=== PATIENT | female | born 1955 | race Caucasian/White ===

== ENCOUNTER 2022-08-16 07:27 | Outpatient (CLI) | payer MEDICARE, SELFPAY ==
--- OUTSIDE RECORDS SUMMARY | 2022-08-16 07:29 | XMS_ITS | Clinical Summary ---
:1955 Author Organization [facility] [place] [address] Care Team Providers Name Role Phone Easton Mccormick MD Unavailable Katerine Bashir MD Primary Care Provider [phone] Allergies No known active allergies Medications Medication Sig Dispensed Refills Start Date End Date Status Biotin 1 mg tablet Take 1 tablet 0 08/26/2015 Active by mouth once daily. aspirin (ECOTRIN) 81 mg Take 1 tablet 0 11/30/2015 Active enteric coated by mouth once tabletIndications: Non-ST daily with a elevation NC (NSTEMI) (HC) meal. atorvastatin (LIPITOR) 40 Take 1 tablet 90 tablet 3 09/26/2016 Active mg tabletIndications: by mouth at Coronary artery disease, bedtime. angina presence unspecified, unspecified vessel or lesion type, unspecified whether telida or transplanted heart nitroglycerin (NITROSTAT) Place 1 tablet 1 Bottle 0 6 Active 0.4 mg sublingual under the tabletIndications: tongue every 5 Coronary artery disease, minutes if angina presence needed for unspecified, unspecified Chest Pain. vessel or lesion type, unspecified whether telida or transplanted heart metoprolol succinate Take 1 tablet 90 tablet 3 09/26/2016 Active (TOPROL XL) 50 mg by mouth once sustained-release daily. tabletIndications: HTN (hypertension), Coronary artery disease, angina presence unspecified, unspecified vessel or lesion type, unspecified whether telida or transplanted heart metFORMIN (GLUCOPHAGE) Take 1 tablet 90 tablet 3 09/26/2016 Active 1,000 mg by mouth once tabletIndications: Type 2 daily with diabetes mellitus without evening meal. complication, without long-term current use of insulin (HC) hydroCHLOROthiazide (HCTZ) Take 1 tablet 90 tablet 3 6 Active 25 mg tabletIndications: by mouth once HTN (hypertension) daily. blood sugar diagnostic 1 box 3 09/26/2016 Active (ACCU-CHEK DAVID) stripIndications: Type 2 diabetes mellitus without complication, without long-term current use of insulin (HC) lancetsIndications: Type 2 Dispense item 100 Each 3 6 Active diabetes mellitus without covered by pt complication, without ins. E11.9 long-term current use of NIDDM type II insulin (HC) - Test 1 time/day lisinopril (PRINIVIL; TAKE ONE 30 tablet 0 09/29/2017 Active ZESTRIL) 40 mg TABLET BY tabletIndications: HTN MOUTH ONCE (hypertension) DAILY Active Problems Problem Noted Date Non-ST elevation NC (NSTEMI) 11/19/2015 Melanoma in situ 06/15/2014 Overview: Right lower anterior leg and upper right eyelid. 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 Morbid obesity 04/10/2010 Diabetes mellitus, type 2 HTN (hypertension) CAD (coronary artery disease) Hyperlipidemia LDL goal <70 Immunizations Name Administration Dates Next Due HepA-HepB (Twinrix) 08/26/2015, 06/15/2014 Hepatitis B (Adult) 08/03/2014 Influenza, IIV3 (Age >=3 years) 09/24/2011 Influenza, IIV4 09/26/2016, 08/26/2015, 08/03/2014 Tdap 03/08/2009 Family History Medical History Relation Name Comments Good Health Brother 1 Hypertension Brother 2 Stroke Father Diabetes Mother Heart Disease Mother CAD s/p PCI in 7 0s Relation Name Status Comments Brother 1 Brother 2 Father (Age 70) CVA Maternal Grandfather (Age 45) CAD Maternal Grandmother (Age 96) Mother Paternal Grandfather (Age 70s) liver di sease Paternal Grandmother unknown Social History Tobacco Use Types Packs/Day Years Used Date Former Smoker Cigarettes 0.5 10/28/1985 - 0 11/19/2015 Smokeless Tobacco: Never Used Tobacco Cessation: Counseling Given: Yes Comments: TIP done 11/21/15 Alcohol Use Standard Drinks/Week Comments Yes 0 (1 standard drink = 0.6 oz pure alcoho l) 1-2 drinks/month Alcohol Habits Answer Date Recorded How often do you have a drink containing alcohol? Not asked How many drinks containing alcohol do you have on a Not aske d typical day when you are drinking? How often do you have six or more drinks on one Not asked occasion? Comment: 1-2 drinks/month 03/15/2010 Sex Assigned at Date Recorded Not on file Obstetrics History Para Term AB IAB SAB Ectopic Multiple Living Live Births 0 0 0 0 0 0 0 0 0 0 Last Filed Vital Signs Vital Sign Reading Time Taken Comments Blood Pressure 152/80 12/26/2020 1:32 PM ETHANOL QUALITY LEADER Pulse 60 12/26/2020 1:32 PM ETHANOL QUALITY LEADER Temperature 36.8 ??C (98.3 ??F) 09/26/2016 9:54 AM ETHANOL QUALITY LEADER Respiratory Rate 14 12/26/2020 1:32 PM ETHANOL QUALITY LEADER Oxygen Saturation 96% 09/26/2016 9:54 AM ETHANOL QUALITY LEADER Inhaled Oxygen Concentration - - Weight 88 kg (194 lb) 12/26/2020 1:32 PM ETHANOL QUALITY LEADER Height 168.2 cm (5' 6.22) 09/26/2016 9:54 AM ETHANOL QUALITY LEADER Body Mass Index 31.1 09/26/2016 9:54 AM ETHANOL QUALITY LEADER Plan of Treatment Health Maintenance Due Date Last Done Comments COVID-19 vaccine series (#1) 01/30/1956 Pneumococcal series for age 65+ (1 1963 - PCV) Hepatitis C screening for age 1008/01/1975 18-79 Zoster (shingles) series for age 1008/01/2007 50+ (1 of 2) BMI (ht and wt on same day) for 09/26/2017 09/26/2016, 04/0 02/2016, age 18+ 01/11/2016, Additional history exists Depression screening for age 12+ 09/26/2017 09/26/2016, 12/2015 Mammogram for age 45-75 10/04/2017 10/04/2016, 08/18/2015, 04/21/2014, Additional history exists Tetanus booster 03/08/2019 03/08/2009, 03/08/2009 Colonoscopy through age 75 04/27/2020 04/27/2010 [facility] Lipids for age 45-75 09/11/2021 09/11/2016, 05/24/2015, 08/03/2014, Additional history exists DEXA/DXA scan for age 65+ 2022 08/18/2015 Influenza for age 65+ 2022 09/26/2016, 08/26/2015, 08/03/2014, Additional history exists Pap test for age 21-65 08/14/2022 08/14/2019, 08/14/2019, 08/26/2015, Additional history exists Tdap Completed 03/08/2009 Goals Goal Patient Goal Associated Recent Patient-Stated? Author Type Problems Progress BLOOD Blood Pressure No Jansen PRESSURE-Bailey Rocha BP Jayashree, LESS THAN FURNITURE FINISHER HELPER 130/80 Results Not on filefrom Last [address] (Home) [place] [address] Advance Directives Latest Code Status on File Code Status Date Activated Date Inactivated Comments Full Code 11/19/2015 1:43 PM 11/24/2015 8:35 PM Code Status Discussion: Discussed Care Teams Shank Sander Relationship Specialty Start Date End Date Katerine Bashir MD PCP - General Family Practice 12/27/201999 [place] [address] Easton Mccormick MD Cardiovascular Disease 09/26/[address] [place] [address]
--- NOTE | 2022-08-16 07:44 | CRLHL7_ITS ---
For Patients: As a result of the Century Cures Act, medical imaging exams and procedure reports are released immediately into your electronic medical record. You may view this report before your referring provider. If you have questions, please contact your health care provider. Indication: CLL, LYMPHADENOPATHY Technique: Postcontrast CT chest, abdomen and pelvis. 93 cc Isovue 370 intravenous contrast. Please note that all CT scans at this facility use dose modulation, iterative reconstruction, and/or weight-based dosing when appropriate to reduce radiation dose to as low as reasonably achievable. Comparison: 01/16/2021 Findings: In the chest, bulky thoracic inlet, bilateral axillary, mediastinal and bilateral hilar adenopathy is overall similar to the prior examination. Extensive vascular calcifications. Postop changes of CABG. Mild emphysema. Scarring within the right middle lobe and right lower lobe of. No pleural effusion or CHF. No infiltrate. Stable 3 millimeter nodule left lower lobe, . No fracture. Median sternotomy. In the abdomen, there is no intrahepatic mass. Splenomegaly with the spleen measuring 17.4 cm similar bulky retroperitoneal and mesenteric adenopathy. Gallbladder normal. Normal pancreas. Normal adrenal glands and kidneys. No bowel obstruction. In the pelvis, similar bulky pelvic sidewall and inguinal adenopathy. Similar numerous lymph nodes in the pelvic fat centrally. Uterus normal. No adnexal mass. Sigmoid diverticulosis. No diverticulitis. No bowel obstruction. Normal appendix. Degenerative disc disease primarily at L5-S1. No fracture. Impression: Overall similar morphology and size of diffuse multifocal bulky adenopathy throughout the chest, abdomen and pelvis. Splenomegaly. Please note that all CT scans at this facility use dose modulation, iterative reconstruction, and/or weight-based dosing when appropriate to reduce radiation dose to as low as reasonably achievable. Dictated by Easton Salazar MD @ 08/16/2022 11:09:52 AM (Electronically Signed)
== END 2022-08-16 07:28 | disposition home or self-care (01) ==
LOC: CT 07:28
PROVIDERS: PCP Family Medicine; Visit Provider Nurse Practitioner Family
DX: C91.10 Chronic lymphocytic leukemia of B-cell type not having achieved remission (principal)
CPT/HCPCS: 71260; 74177; Q9967

== ENCOUNTER 2022-08-17 09:15 | Outpatient (CLI) | payer MEDICARE, SELFPAY ==
--- OUTSIDE RECORDS SUMMARY | 2022-08-17 09:20 | XMS_ITS | Clinical Summary ---
:1955 Author Organization [facility] [place] [address] Care Team Providers Name Role Phone Easton Mccormick MD Unavailable Katerine Bashir MD Primary Care Provider [phone] Allergies No known active allergies Medications Medication Sig Dispensed Refills Start Date End Date Status Biotin 1 mg tablet Take 1 tablet 0 08/26/2015 Active by mouth once daily. aspirin (ECOTRIN) 81 mg Take 1 tablet 0 11/30/2015 Active enteric coated by mouth once tabletIndications: Non-ST daily with a elevation MD (NSTEMI) (HC) meal. atorvastatin (LIPITOR) 40 Take 1 tablet 90 tablet 3 09/26/2016 Active mg tabletIndications: by mouth at Coronary artery disease, bedtime. angina presence unspecified, unspecified vessel or lesion type, unspecified whether united [place] or transplanted heart nitroglycerin (NITROSTAT) Place 1 tablet 1 Bottle 0 6 Active 0.4 mg sublingual under the tabletIndications: tongue every 5 Coronary artery disease, minutes if angina presence needed for unspecified, unspecified Chest Pain. vessel or lesion type, unspecified whether united [place] or transplanted heart metoprolol succinate Take 1 tablet 90 tablet 3 09/26/2016 Active (TOPROL XL) 50 mg by mouth once sustained-release daily. tabletIndications: HTN (hypertension), Coronary artery disease, angina presence unspecified, unspecified vessel or lesion type, unspecified whether united [place] or transplanted heart metFORMIN (GLUCOPHAGE) Take 1 [...] Active Problems Problem Noted Date Non-ST elevation MD (NSTEMI) 11/19/2015 Melanoma in situ 06/15/2014 Overview: [...] Comments Blood Pressure 152/80 12/26/2020 1:32 PM ELECTRONIC ENGRAVER Pulse 60 12/26/2020 1:32 PM ELECTRONIC ENGRAVER Temperature 36.8 ??C (98.3 ??F) 09/26/2016 9:54 AM ELECTRONIC ENGRAVER Respiratory Rate 14 12/26/2020 1:32 PM ELECTRONIC ENGRAVER Oxygen Saturation 96% 09/26/2016 9:54 AM ELECTRONIC ENGRAVER Inhaled Oxygen Concentration - - Weight 88 kg (194 lb) 12/26/2020 1:32 PM ELECTRONIC ENGRAVER Height 168.2 cm (5' 6.22) 09/26/2016 9:54 AM ELECTRONIC ENGRAVER Body Mass Index 31.1 09/26/2016 9:54 AM ELECTRONIC ENGRAVER Plan of Treatment Health Maintenance Due Date [...] age 77 04/27/2020 [facility]2010 [facility] Lipids for age 45-75 09/11/2021 09/11/2016, 05/24/2015, [...] Jansen PRESSURE-Bailey Rocha BP Jayashree, LESS THAN CYTOTECHNOLOGIST/HISTOTECHNOLOGIST 130/80 Results Not on filefrom Last [address] (Home) [place] [address] Advance Directives Latest Code Status on File Code Status Date Activated Date Inactivated Comments Full Code 11/19/2015 1:43 PM 11/24/2015 8:35 PM Code Status Discussion: Discussed Care Teams Ppap Coordinator Relationship Specialty Start Date End Date Katerine Bashir MD PCP - General Family Practice 12/27/201999 [place] [address] Easton Mccormick MD Cardiovascular Disease 09/26/[address] [place] [address]
--- NOTE | 2022-08-17 09:45 | CRLHL7_ITS ---
For Patients: As a result of the Cures Act, medical imaging exams and procedure reports are released immediately into your electronic medical record. You may view this report before your referring provider. If you have questions, please contact your health care provider. DIGITAL DIAGNOSTIC RIGHT MAMMOGRAM USING TOMOSYNTHESIS AND COMPUTER-AIDED DETECTION CLINICAL HISTORY: LEFT breast short-term follow-up. COMPARISON: 04/23/2022, 01/16/2021, 01/23/2019, 12/09/2017. TECHNIQUE: Digital LEFT mammogram in two projections. Tomosynthesis and CAD utilized. BREAST COMPOSITION: There are areas of scattered fibroglandular density. FINDINGS: 3D CC/MLO LEFT breast mammograms submitted. Chronic LEFT axillary adenopathy, unchanged. Improved appearance of the breast parenchyma within the upper outer quadrant compared to the prior study, representing resolution of skin infection. A small amount of residual density remains. No architectural distortion or suspicious masses. Benign calcifications. IMPRESSION: Improved skin inflammatory process. Chronic LEFT axillary adenopathy. RECOMMENDATIONS: Annual BILATERAL screening mammography at the appropriate interval. Results and recommendations discussed with the patient. BI-RADS Category 2: Benign A lay language report of this examination will be provided to the patient. Dictated by Easton Salazar MD @ 08/17/2022 10:48:51 AM jj/Dictated by: Easton Salazar MD @ 08/17/2022 10:48:00 AM (Electronically Signed)
== END 2022-08-17 09:16 | disposition home or self-care (01) ==
LOC: MAMMO 09:18
PROVIDERS: PCP Family Medicine; Visit Provider Family Medicine
DX: N63.20 Unspecified lump in the left breast, unspecified quadrant (principal); R92.8 Other abnormal and inconclusive findings on diagnostic imaging of breast
CPT/HCPCS: 77065; G0279

== ENCOUNTER 2022-09-21 07:55 | Outpatient (CLI) | payer MEDICARE, SELFPAY ==
--- OUTSIDE RECORDS SUMMARY | 2022-09-21 08:15 | XMS_ITS | Clinical Summary ---
:1955 Author Organization [facility] [place] [address] Care Team Providers Name Role Phone Easton Mccormick MD Unavailable Katerine Bashir MD Primary Care Provider [phone] Allergies No known active allergies Medications Medication Sig Dispensed Refills Start Date End Date Status Biotin 1 mg tablet Take 1 tablet 0 08/26/2015 Active by mouth once daily. aspirin (ECOTRIN) 81 mg Take 1 tablet 0 11/30/2015 Active enteric coated by mouth once tabletIndications: Non-ST daily with a elevation NV (NSTEMI) (HC) meal. atorvastatin (LIPITOR) 40 Take 1 tablet 90 tablet 3 09/26/2016 Active mg tabletIndications: by mouth at Coronary artery disease, bedtime. angina presence unspecified, unspecified vessel or lesion type, unspecified whether sun'aq or transplanted heart nitroglycerin (NITROSTAT) Place 1 tablet 1 Bottle 0 6 Active 0.4 mg sublingual under the tabletIndications: tongue every 5 Coronary artery disease, minutes if angina presence needed for unspecified, unspecified Chest Pain. vessel or lesion type, unspecified whether sun'aq or transplanted heart metoprolol succinate Take 1 tablet 90 tablet 3 09/26/2016 Active (TOPROL XL) 50 mg by mouth once sustained-release daily. tabletIndications: HTN (hypertension), Coronary artery disease, angina presence unspecified, unspecified vessel or lesion type, unspecified whether sun'aq or transplanted heart metFORMIN (GLUCOPHAGE) Take 1 [...] Active Problems Problem Noted Date Non-ST elevation NV (NSTEMI) 11/19/2015 Melanoma in situ 06/15/2014 Overview: [...] Comments Blood Pressure 152/80 12/26/2020 1:32 PM CASTING CARRIER Pulse 60 12/26/2020 1:32 PM CASTING CARRIER Temperature 36.8 ??C (98.3 ??F) 09/26/2016 9:54 AM CASTING CARRIER Respiratory Rate 14 12/26/2020 1:32 PM CASTING CARRIER Oxygen Saturation 96% 09/26/2016 9:54 AM CASTING CARRIER Inhaled Oxygen Concentration - - Weight 88 kg (194 lb) 12/26/2020 1:32 PM CASTING CARRIER Height 168.2 cm (5' 6.22) 09/26/2016 9:54 AM CASTING CARRIER Body Mass Index 31.1 09/26/2016 9:54 AM CASTING CARRIER Plan of Treatment Health Maintenance Due Date [...] age 77 04/27/2020 04/27/2010 [facility] Lipids for age 45-75 09/11/2021 09/11/2016, [...] Jansen PRESSURE-Bailey Rocha BP Jayashree, LESS THAN MOTO MIX OPERATOR 130/80 Results Not on filefrom Last [address] (Home) [place] [address] Advance Directives Latest Code Status on File Code Status Date Activated Date Inactivated Comments Full Code 11/19/2015 1:43 PM 11/24/2015 8:35 PM Code Status Discussion: Discussed Care Teams Home Health Clinical Liaison Relationship Specialty Start Date End Date Katerine Bashir MD PCP - General Family Practice 12/27/201999 [place] [address] Easton Mccormick MD Cardiovascular Disease 09/26/[address] [place] [address]
--- NOTE | 2022-09-21 09:15 | CRLHL7_ITS ---
For Patients: As a result of the Century Cures Act, medical imaging exams and procedure reports are released immediately into your electronic medical record. You may view this report before your referring provider. If you have questions, please contact your health care provider. INDICATION: Splenomegaly CT 08/16/2022 COMPARISON: none TECHNIQUE: Real time siddiqi scale imaging and color Doppler analysis was performed of the spleen. FINDINGS: The spleen is enlarged, as before, measuring 17.7 cm in length. No splenic lesion or ascites. Normal internal vascularity. IMPRESSION: Persistent splenomegaly, unchanged compared to the prior study. Dictated by Easton Salazar MD @ 09/21/2022 10:41:38 AM (Electronically Signed)
== END 2022-09-21 07:56 | disposition home or self-care (01) ==
LOC: US 07:55
PROVIDERS: PCP Family Medicine; Visit Provider Nurse Practitioner Family
DX: R16.1 Splenomegaly, not elsewhere classified (principal)
CPT/HCPCS: 76705

== ENCOUNTER 2022-11-19 15:00 | Outpatient (RCR) | payer MEDICARE, SELFPAY ==
[2022-08-16 07:54] LABS: Basophils Percent Auto 0.1 % (0.0-3.0); Eosinophils Percent Auto 0.9 % (0.0-7.0); Hematocrit 43.3 % (33.0-51.0); Hemoglobin* 13.8 gm/dL (12.0-16.0); Immature Granulocytes Abs Auto 0.34 K/uL (0.00-0.30); Lymphocytes Percent Auto 84.8 % (20-44); Mean Corpuscular HGB Conc 32 gm/dL (32-36); Mean Corpuscular Hemoglobin 30 pg (26-34); Mean Corpuscular Volume 93 fL (80-100); Monocytes Percent Auto 4.2 % (0.0-11.0); Neutrophils Percent Auto 9.5 % (42.0-72.0); Platelet Count* 199 K/uL (140-440); RDW Coefficient of Variation % 13.6 % (11.5-15.5); Red Blood Count 4.67 m/uL (4.00-5.20)
[2022-08-16 08:08] LABS: Albumin* 4.6 g/dL (3.3-5.0); Chloride* 99 mmol/L (96-114); Potassium* 4.4 mmol/L (3.6-5.1); Sodium* 138 mmol/L (135-149)
[2022-08-16 08:10] LABS: Aspartate Amino Transferase* 25 U/L (12-35); Bilirubin Total* 1.3 mg/dL (0.1-1.5); Carbon Dioxide* 32 mmol/L (20-32); Creatinine* 0.7 mg/dL (0.5-1.5); Estimated Glomerular Filt Rate 96 ml/min
[2022-08-16 08:11] LABS: Alanine Aminotransferase* 20 U/L (4-35); Alkaline Phosphatase* 111 U/L (40-150); Blood Urea Nitrogen* 24 mg/dL (7-30); Calcium* 10.1 mg/dL (8.4-10.6); Glucose* 146 mg/dL (60-115); Total Protein* 7.3 g/dL (6.0-8.3)
[2022-08-16 08:19] LABS: Slide Review Reflex Yes; White Blood Count* 69.68 K/uL (4.50-11.00)
[2022-08-16 08:21] LABS: Slide Review Acceptable Review (Acceptable)
--- NOTE | 2022-08-16 14:15 | PC.NURSE ---
Called pt with WBC results. Pt prefers to discuss with provider. She will see Mali Magaña on 08/24/2022 at 1:00 PM. Confirmed that appt with Alexandra.
[2022-09-21 08:20] LABS: Basophils Percent Auto 0.2 % (0.0-3.0); Eosinophils Percent Auto 1.2 % (0.0-7.0); Hematocrit 43.5 % (33.0-51.0); Hemoglobin* 13.8 gm/dL (12.0-16.0); Immature Granulocytes Pct Auto 0.6 %; Lymphocytes Percent Auto 87.6 % (20-44); Mean Corpuscular HGB Conc 32 gm/dL (32-36); Mean Corpuscular Hemoglobin 29 pg (26-34); Mean Corpuscular Volume 93 fL (80-100); Monocytes Percent Auto 3.9 % (0.0-11.0); Neutrophils Percent Auto 6.5 % (42.0-72.0); Platelet Count* 227 K/uL (140-440); RDW Coefficient of Variation % 13.7 % (11.5-15.5); Red Blood Count 4.69 m/uL (4.00-5.20)
[2022-09-21 08:23] LABS: White Blood Count* 82.34 K/uL (4.50-11.00)
[2022-09-21 08:24] LABS: Slide Review Reflex No
[2022-10-23 09:56] LABS: Basophils Percent Auto 0.2 % (0.0-3.0); Eosinophils Percent Auto 0.8 % (0.0-7.0); Hematocrit 40.6 % (33.0-51.0); Hemoglobin* 12.9 gm/dL (12.0-16.0); Immature Granulocytes Pct Auto 0.6 %; Lymphocytes Percent Auto 85.5 % (20-44); Mean Corpuscular HGB Conc 32 gm/dL (32-36); Mean Corpuscular Hemoglobin 30 pg (26-34); Mean Corpuscular Volume 94 fL (80-100); Monocytes Percent Auto 5.8 % (0.0-11.0); Neutrophils Percent Auto 7.1 % (42.0-72.0); Platelet Count* 216 K/uL (140-440); RDW Coefficient of Variation % 14.4 % (11.5-15.5); Red Blood Count 4.33 m/uL (4.00-5.20)
[2022-10-23 09:58] LABS: Slide Review Reflex Yes
[2022-10-23 10:51] LABS: Slide Review Acceptable Review (Acceptable)
[2022-11-19 08:43] LABS: Basophils Percent Auto 0.2 % (0.0-3.0); Eosinophils Percent Auto 0.9 % (0.0-7.0); Hemoglobin* 13.3 gm/dL (12.0-16.0); Immature Granulocytes Pct Auto 0.8 %; Lymphocytes Percent Auto 85.4 % (20-44); Mean Corpuscular HGB Conc 32 gm/dL (32-36); Mean Corpuscular Hemoglobin 30 pg (26-34); Mean Corpuscular Volume 93 fL (80-100); Monocytes Percent Auto 4.7 % (0.0-11.0); Platelet Count* 203 K/uL (140-440); RDW Coefficient of Variation % 14.1 % (11.5-15.5); Red Blood Count 4.51 m/uL (4.00-5.20)
[2022-11-19 09:18] LABS: Slide Review Acceptable Review (Acceptable); Slide Review Reflex Yes
== END 2023-02-12 23:59 | disposition home or self-care (01) ==
LOC: CCIC 15:00
PROVIDERS: Internal Medicine Hematology & Oncology; Nurse Practitioner Family; PCP Family Medicine; Referring Provider Family Medicine; Visit Provider Physician Assistant
DX: C83.00 Small cell B-cell lymphoma, unspecified site (principal); L12.0 Bullous pemphigoid
CPT/HCPCS: 36415; 80053; 85025; 99212; 99214

== ENCOUNTER 2023-01-21 07:23 | Outpatient (CLI) | payer MEDICARE, SELFPAY | END 2023-01-21 07:24 | disposition home or self-care (01) | LOC: NFLDREF 11:39 | PROVIDERS: PCP Family Medicine; Referring Provider Family Medicine; Visit Provider Family Medicine | DX: E11.9 Type 2 diabetes mellitus without complications (principal); E78.5 Hyperlipidemia, unspecified; I10 Essential (primary) hypertension; R73.03 Prediabetes | CPT/HCPCS: 80053; 80061; 82043; 82570 ==

== ENCOUNTER 2023-01-23 07:58 | Outpatient (CLI) | payer MEDICARE, SELFPAY | END 2023-01-23 07:59 | disposition home or self-care (01) | LOC: NFLDREF 07:59 | PROVIDERS: PCP Family Medicine; Visit Provider Family Medicine | DX: Z01.419 Encounter for gynecological examination (general) (routine) without abnormal findings (principal); E55.9 Vitamin D deficiency, unspecified; I10 Essential (primary) hypertension; E78.5 Hyperlipidemia, unspecified | CPT/HCPCS: 82306 ==

== ENCOUNTER 2023-02-28 09:51 | Outpatient (CLI) | payer MEDICARE, SELFPAY | END 2023-02-28 09:52 | disposition home or self-care (01) | LOC: NFLDREF 03-04 09:03 | PROVIDERS: PCP Family Medicine; Referring Provider Family Medicine; Visit Provider Dermatology | DX: Z79.899 Other long term (current) drug therapy (principal) | CPT/HCPCS: 80076 ==

== ENCOUNTER 2023-04-10 12:42 | Outpatient (CLI) | payer MEDICARE, SELFPAY ==
--- NOTE | 2023-04-10 13:00 | CRLHL7_ITS ---
For Patients: As a result of the Century Cures Act, medical imaging exams and procedure reports are released immediately into your electronic medical record. You may view this report before your referring provider. If you have questions, please contact your health care provider. DXA BONE MINERAL DENSITY STUDY Reason for exam: Menopausal. Current height (in): 66. Weight (lb): 190. Menopause age: 54. Ethnicity: White. 1. Have you had a previous hip or vertebral fracture? No. 2. Have you had any fractures during your adult life which did not result from significant trauma (e.g., auto accident)? No. 3. Did either of your parents have a hip fracture? No. 4. Do you smoke? No. 5. Have you ever taken Glucocorticoids? No. 6. Do you have rheumatoid arthritis? No. 7. Do you have secondary osteoporosis? No. 8. Do you drink 3 or more alcoholic drinks per day? No. 9. Are you being treated for osteoporosis? No. 10. Have you ever taken any of the following medications: Actonel, Evista, Fosamax, Miacalcin, Reclast, Boniva, Forteo, HRT (i.e., estrogen/hormone therapy), Protelos, Prolia, Vitamin D, Calcium, other ??? please specify. ANSWER: Yes, Vitamin D. 11. Do you have any of the following medical conditions: Anorexia or bulimia, asthma or emphysema, end stage renal disease, hyperparathyroidism, any seizure disorders, cancer, inflammatory bowel diseases, hysterectomy, other ??? please specify. ANSWER: Yes, cancer. 12. What was your maximum height (inches)? 66.5. 13. Do you perform weight bearing exercise regularly? No. 14. Do you regularly consume dairy products? Yes. 15. Do you drink caffeinated beverages? Yes. If female: 16. At what age did your period start? 15. 17. Are you premenopausal? No. 18. How many full-term pregnancies have you had? 0. 19. Have you ever missed your period for more than 6 months in a row (not including or menopause)? No. TECHNIQUE: Bone mineral density study was performed using the [employer]. FINDINGS: The results of the study expressed as bone mineral density (BMD) are as follows: Lumbar spine L1 to L4: BMD: 1.210 g/cm2. T-score: 1.5. Z-score: 3.3 Neck Left: BMD: 0.753 g/cm2. T-score: -0.9. Z-score: 0.7 Right: BMD: 0.754 g/cm2. T-score: -0.9. Z-score: 0.7 Total Left: BMD: 1.053 g/cm2. T-score: 0.9. Z-score: 2.2 Right: BMD: 1.035 g/cm2. T-score: 0.8. Z-score: 2.0 IMPRESSION: Normal bone density. Easton Salazar M.D. Diagnostic Radiologist [email or web address] BENNY/[email or web address] gilmore/Dictated by: Easton Salazar MD @ 04/10/2023 3:39:00 PM (Electronically Signed)
== END 2023-04-10 12:43 | disposition home or self-care (01) ==
LOC: RAD 12:43
PROVIDERS: PCP Family Medicine; Visit Provider Family Medicine
DX: Z78.0 Asymptomatic menopausal state (principal)
CPT/HCPCS: 77080

== ENCOUNTER 2023-06-19 07:26 | Outpatient (CLI) | payer MEDICARE, SELFPAY | END 2023-06-19 07:27 | disposition home or self-care (01) | LOC: NFLDREF 06-22 07:56 | PROVIDERS: PCP Family Medicine; Referring Provider Family Medicine; Visit Provider Dermatology | DX: E55.9 Vitamin D deficiency, unspecified (principal); E78.5 Hyperlipidemia, unspecified; Z79.899 Other long term (current) drug therapy | CPT/HCPCS: 80076 ==

== ENCOUNTER 2023-07-19 09:00 | Outpatient (CLI) | payer MEDICARE, SELFPAY | END 2023-07-19 09:01 | disposition home or self-care (01) | LOC: NFLDREF 07-22 13:24 | PROVIDERS: PCP Family Medicine; Referring Provider Family Medicine; Visit Provider Family Medicine | DX: E11.9 Type 2 diabetes mellitus without complications (principal); I10 Essential (primary) hypertension | CPT/HCPCS: 80053; 82043; 82570 ==

== ENCOUNTER 2023-08-30 14:36 | Inpatient (IN) | payer MEDICARE, SELFPAY ==
--- NOTE | 2023-08-30 11:00 | CRLHL7_ITS ---
For Patients: As a result of the Century Cures Act, medical imaging exams and procedure reports are released immediately into your electronic medical record. You may view this report before your referring provider. If you have questions, please contact your health care provider. INDICATION: Abnormal weight loss. History of CLL. TECHNIQUE: CT abdomen and pelvis acquired with 79 cc Omnipaque 350 IV contrast. COMPARISON: CT chest abdomen pelvis 08/16/2022. FINDINGS: Lower chest: Unremarkable. Liver: Unremarkable. Normal in size and attenuation. No suspicious masses. Gallbladder and bile ducts: Unremarkable. No stones or inflammation. No biliary dilatation. Pancreas: Unremarkable. No mass or inflammation. Spleen: Splenomegaly (17.3 centimeters craniocaudal dimension). Splenic size similar compared to prior. Adrenal glands: Unremarkable. No nodules. Kidneys: Unremarkable. No suspicious masses, stones, or hydronephrosis. GI tract: No bowel obstruction or focal inflammation. Normal appendix. Colonic diverticulosis without evidence of acute diverticulitis. Vasculature: Moderate/severe atherosclerosis. No aneurysm. Mesenteric arteries are patent. Lymph nodes: Abdominal, pelvic and inguinal lymphadenopathy. Overall, size of lymph nodes of mildly decreased compared to July 2022. For example, a right aneta hepatis node measuring 3.2 x 4.5 centimeters previously measured 3.8 by 5.0 centimeters (axial series 2, image 40). A 1.7 x 2.7 centimeter left para-aortic node previously measured 2.2 x 3.3 centimeters (axial series 2, image 49). Other nodes have similarly decreased in size. Peritoneum/Abdominal Wall: No free fluid or free intraperitoneal air. No abdominal wall mass Pelvis: Unremarkable. Bones: No suspicious osseous lesion. IMPRESSION: 1. Abdominal, pelvic and inguinal lymphadenopathy. These nodes have overall decreased in size moderately compared to July 2022, but numerous nodes remain enlarged. 2. Splenomegaly, similar compared to prior. 3. Colonic diverticulosis without evidence of acute diverticulitis. 4. Atherosclerosis. Please note that all CT scans at this facility use dose modulation, iterative reconstruction, and/or weight-based dosing when appropriate to reduce radiation dose to as low as reasonably achievable. Dictated by Marshall Jansen MD @ 08/30/2023 11:23:40 AM (Electronically Signed)
[2023-08-30 14:53] VITALS: BP 101/66; PULSE 87; RESP 16; TEMP 36.7; O2SAT 95; BMI 25.2
[2023-08-30 15:18] VITALS: BP 102/50; BP 104/60; BP 105/50; PULSE 73; PULSE 79; PULSE 83
[2023-08-30 15:45] VITALS: BMI 25.2
[2023-08-30 15:49] LABS: Lactate* 1.6 mmol/L (0.5-1.9)
[2023-08-30] MEDS: 0.9 % SODIUM CHLORIDE 250 ml 250 ML IV (15:57)
[2023-08-30] MEDS: 0.9 % SODIUM CHLORIDE 1000 ml 1,000 ML 125 ML IV (15:57)
[2023-08-30 16:07] LABS: PCO2 VBG 45 mmHG (40-50); PO2 VBG 25.4 mmHG (25-47); pH VBG 7.404 (7.32-7.43)
[2023-08-30 16:08] LABS: HCO3 VBG 28 mmol/L (21-28)
--- NOTE | 2023-08-30 16:09 | PM.IMHP1 ---
Hospitalist- H&P: HPI History of Present Illness Time Seen by Provider: 15:00 Date Seen: 08/30/23 Chief complaint: Not feeling well, unintentional weight loss Narrative: Alexandra Dixon is a 68 year old woman who presents to [facility] as a direct admission from her primary care physician, Dr. Bashir. Patient and tell me that she has not been feeling well for the past 8-9 weeks. During this interim of time she has lost her interest in eating, drinks 3 small bottles of water daily, eats soup. states she hardly eats at all. Patient indicates nothing tastes good. Denies nausea vomiting. Has intermittent left upper quadrant abdominal discomfort. States her blood sugars are adequately controlled. Continues to take metformin regularly. Denies hypoglycemic symptoms. Denies constipation or diarrhea. Did have loose stools earlier today. No blood loss. Has not had any alcoholic beverage for the last 2-3 weeks. Has been taking methotrexate weekly for bolus pemphigoid. Before starting methotrexate on the 01/26/2023, she was consuming about 14 alcoholic beverages per week. Up until about 2-3 weeks ago she had cut down her alcohol consumption to 9 alcoholic beverages every week. Not that she is not interested in drinking but she states that the alcoholic beverage has no flavor now and so she has pretty much stopped drinking over the last 2-3 weeks. Denies alcohol withdrawal. During this interim of time she has unintentionally lost 11 kg. Current weight 71.8 kg. Denies night sweats. While being assessed for these complaints per her primary care physician, Dr. Bashir, her white blood cell count was noted be 67,000 in association with her chronic lymphocytic leukemia. Normally she runs around 80,000. Additionally her serum creatinine was markedly elevated at 2.1, previously 0.7, and her BUN was markedly elevated at 67, previously 23. Her primary care physician was particularly concerned about the serum calcium being elevated at 12.7. Patient was thus admitted to the hospital for further assessment and intervention. Noteworthy is that patient has a polypharmacy. Starting methotrexate on the 01/26/2023, takes metformin regularly, takes hydrochlorothiazide regularly. Also takes vitamin-D. Noteworthy is the fact that her primary care physician refer the patient for direct admission earlier in the day. Patient left the clinic against medical advice stating that she would go to the hospital after she was done with work. Eventually she came in during the mid afternoon. Review of Systems Status of ROS: Reports: 10 or more systems reviewed and unremarkable except as noted in History and below Narrative: 11 kg weight loss she has experienced over the last 8-9 weeks has been unintentional. Denies fevers, rigors, diaphoresis. Denies trauma or injury. Denies travel. Only new medication that she has been on is the methotrexate, which was started on the 26 of January. Continues to take metformin, hydrochlorothiazide, atorvastatin, lisinopril. To the best of her knowledge she has not had exposure to other medications, organic compounds, and so forth. Has not had COVID-19 recently. Has been more sleepy, retiring to bed around 6:00 a.m. in the morning and sleeping for about 12 hours. During the day she is more fatigued. Denies dysuria, urgency, frequency, hematuria. Denies frothy urine or dark urine. Denies bloody stools, terrance-colored stools, black stools. No other blood loss of any sort. No focal motor neurologic deficits. [facility] Medical History Ventricular bigeminy (2018) ?I49.8 - Other specified cardiac arrhythmias (ICD-10) History of bone density study (03/2023) ?Z92.89 - Personal history of other medical treatment (ICD-10) Vitamin D deficiency ?E55.9 - Vitamin D deficiency, unspecified (ICD-10) Dyslipidemia ?E78.5 - Hyperlipidemia, unspecified (ICD-10) Lymphoma, small lymphocytic (2018) ?C83.00 - Small cell B-cell lymphoma, unspecified site (ICD-10) No retinopathy on exam (03/2021) ?Z01.00 - Encounter for examination of eyes and vision without abnormal findings (ICD-10) Microalbuminuria due to type 2 diabetes mellitus ?E11.29 - Type 2 diabetes mellitus with other diabetic kidney complication (ICD-10) ?R80.9 - Proteinuria, unspecified (ICD-10) Hypertension ?I10 - Essential (primary) hypertension (ICD-10) History of myocardial infarction (11/21/15) ?I25.2 - Old myocardial infarction (ICD-10) History of malignant neoplasm of skin ?Z85.828 - Personal history of other malignant neoplasm of skin (ICD-10) Frequent ventricular premature beats ?I49.3 - Ventricular premature depolarization (ICD-10) Coronary artery disease (2000) ?I25.10 - Atherosclerotic heart disease of cahto coronary artery without angina pectoris (ICD-10) Surgical History History of four vessel coronary artery bypass graft (2000) ?Z95.1 - Presence of aortocoronary bypass graft (ICD-10) History of coronary artery stent placement (11/21/15) ?Z95.5 - Presence of coronary angioplasty implant and graft (ICD-10) Family History Father Stroke, Onset Age: 70 Prostate cancer Mother Diabetes Myocardial infarction, Onset Age: 65 Daughter Stroke, Onset Age: 36 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: , 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, 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 SMOKER: Tobacco abuse- 10/day, 32 pack years~ resolved 01/16 Does not exercise- active in garden and yard Social drinker- 2/week Past problems: Non-smoker- quit 2000, hx 30 pack years What is your current living situation?: I presently have a place to live Problems where you live: pests, such as bugs, ants, or mice Problems where you live details: occasional ants in wintertime In the past 12 months, utilities in danger of being shut off: no In past 12 months, lack of transportation kept you from medical appts, meetings, work, or getting things needed for daily living: no In the past 12 mos, have been you worried that your food would run out before you had money to buy more?: never true In the past 12 mos, the food you bought just didn't last and you didn't have money to buy more?: never true Highest level of school completed/degree received: some college, no degree Smoking Status: Former smoker Do you use any of these nicotine containing products: None Second hand tobacco smoke exposure: No How often do you have a drink containing alcohol: never How often do you have six or more drinks on one occasion: Never AUDIT-C Alcohol total score: 0 Non-prescribed substance use: denies use Caffeine: No (none last couple weeks) How often does anyone, including family, friends and others, physically hurt you: never How often does anyone, including family, friends and others, insult or talk down to you: never How often does anyone, including family, friends and others, threaten you with harm: never How often does anyone, including family, friends and others, scream or curse at you: never Little interest or pleasure in doing things: several days Feeling down, depressed, or hopeless: not at all service: No Meds Home Medications and Allergies Home Medications Medication Instructions Recorded Confirmed Type aspirin 81 mg tablet,delayed 81 mg PO QDAY 04/26/22 08/30/23 History release albuterol sulfate 2.5 mg/3 mL 2.5 mg inhalation Q4-6H PRN 11/19/22 08/30/23 History (0.083 %) solution for nebulization cholecalciferol (vitamin D3) 25 25 mcg PO BID 11/19/22 08/30/23 History mcg (1,000 unit) capsule ascorbic acid (vitamin C) 500 mg 500 mg PO QDAY 01/23/23 08/30/23 History tablet fexofenadine 180 mg tablet 180 mg PO QDAY 01/23/23 08/30/23 History (Rosangela Allergy) Allergies Allergy/AdvReac Type Severity Reaction Status Date / Time dunbar saul Allergy Intermediate Blisters/it Uncoded 08/30/23 07:49 [email or web address] Exam Narrative: Exam Narrative: I examined the patient in her hospital room. She is sitting on the edge of the bed. Vision and hearing are grossly normal. Alert and oriented to self, place, time, situation. For early, cooperative, articulate. Mood and affect are congruent. Cranial nerves 3-12 are grossly normal. Slight hint of icterus. No conjunctival injection. Pupils equally round and reactive to light and accommodation. Extraocular muscles are intact. Conjugate gaze. Midline nasal septum with normal nasal mucosa. Dentition in fair repair. Dry buccal mucosa. Oropharynx otherwise negative. Midline trachea with normal thyroid. No JVD or hepatojugular reflux. No carotid bruits. Lungs are clear to auscultation except an inspiratory rales bibasilarly. No wheezing or rhonchi. Heart tones with regular rhythm, normal S1-S2. Soft systolic murmur left upper sternal border. Abdomen with active bowel sounds, soft, nontender. Subjective discomfort to palpation left upper quadrant. Independent transfer, station, and gait. Moves all 4 extremities. No jaundice, petechiae, rashes, or cyanosis. Swallows without any difficulty. Const: Vital Signs, click to edit/add: Vital Signs - 24 hr 08/30/23 14:53 08/30/23 15:18 Temperature 98.0 F Pulse Rate [Left P ulse Oximeter] 87 Pulse Rate [orthos tatic lying Right Pulse Oximeter] 73 Pulse Rate [orthos tatic sitting Left Pulse Oximeter] 73 Pulse Rate [orthos tatic sitting Righ t Pulse Oximeter] 79 Pulse Rate [orthos tatic standing Rig ht Pulse Oximeter] 83 Respiratory Rate 16 Blood Pressure [Le ft Arm] 101/66 Blood Pressure [or thostatic lying Ri ght Arm] 105/50 L Blood Pressure [or thostatic sitting Left Arm] 102/50 L Blood Pressure [or thostatic sitting Right Arm] 102/50 L Blood Pressure [or thostatic standing Right Arm] 104/60 Pulse Oximetry 95 Oxygen Delivery Me thod Room Air Documenting provider has reviewed patient's vital signs: yes Hospitalist - H&P: Result Imaging CT scan of abdomen and pelvis: Attestation: I have reviewed the pertinent imaging results. Radiologist's impression: IMPRESSION: 1. Abdominal, pelvic and inguinal lymphadenopathy. These nodes have overall decreased in size moderately compared to July 2022, but numerous nodes remain enlarged. 2. Splenomegaly, similar compared to prior. 3. Colonic diverticulosis without evidence of acute diverticulitis. 4. Atherosclerosis. Assessment and Plan Assessment and plan (1) Acute renal failure: Status: Acute (2) Hypercalcemia: Problem comment: Told not to leave clinic, left against medical advice, will answer phone Status: Acute (3) Dehydration: Status: Acute (4) Weight loss, abnormal: Problem comment: 11 kg in 2 months Status: Acute (5) Splenomegaly: Status: Chronic (6) Lymphoma, small lymphocytic: Status: Chronic (7) Dyslipidemia: Status: Chronic (8) Bullous pemphigoid: Problem comment: Dr. Lance starting methotrexate Status: Acute (9) Vitamin D deficiency: Status: Chronic (10) Type 2 diabetes mellitus: Status: Acute (11) Hypertension: Status: Chronic (12) Chronic obstructive pulmonary disease: Problem comment: GOLD C suspected by [place] cardiology clinical nurse specialist, Not using Anoro Ellipta , cannot afford Status: Chronic (13) Polypharmacy: Status: Acute Plan 1. Reviewed impression with patient and . 2. Stop the metformin, hydrochlorothiazide, methotrexate, and atorvastatin. 3. IV fluid rehydration. 4. Will not give zoludronic acid at this time. Continue to monitor the calcium. 5. Check for orthostatic blood pressure and pulse. Monitor I/Os. Monitor daily weights. 6. Track other labs including CBC. 7. Answered their questions their satisfaction. 8. They are agreeable with above stated plans or recommendations.
[2023-08-30 16:27] LABS: Troponin I* 0.02 ng/mL (0.01-0.04)
[2023-08-30 16:28] LABS: NT Pro B Type NatriureticPept* 406 pg/mL
[2023-08-30 17:16] VITALS: RESP 18; O2SAT 96
--- NOTE | 2023-08-30 19:00 | PC.NURSE ---
Admission-- Pleasant and cooperative, alert and oriented patient arrived ambulatory as a direct admit from the clinic. VSS and pt is afebrile. SPO2 maintained >94% on RA. She denied any pain. LS CTA. BS hypoactive. She stated 2x loose stools shortly after arrival and stated that she has had that for a while. She c/o a poor appetite and recent weight loss, but denied nausea and ate 50% of a regular dinner without difficulty. She was up in room independently and tolerated it well. was at bedside at arrival and appears loving and supportive.
[2023-08-30] MEDS: ENOXAPARIN 30 MG/0.3ML INJ SUBCUT (20:11)
[2023-08-30 20:15] LABS: Appearance Urine Cloudy (Clear); Bilirubin Urine Negative (Negative); Blood Urine Negative (Negative); Color Urine Yellow (Yellow); Glucose Urine Negative (Negative); Ketones Urine Negative (Negative); Leukocyte Esterase Urine Trace (Negative); Nitrite Urine Negative (Negative); Protein Urine Trace (Negative); Urobilinogen Urine 0.2 (0.2-1.0)
[2023-08-30] MEDS: INSULIN ASPART 100 UNIT/ML SUBCUT (20:24)
[2023-08-30 20:40] VITALS: BP 119/73; RESP 16; TEMP 36.6; O2SAT 92
[2023-08-30 21:12] LABS: Squamous Epithelial Cell Urine Few (None-Few); WBC Urine 25-50 (0-5)
[2023-08-30 21:13] LABS: Amorphous Sediment Urine Few; Bacteria Urine Moderate; Mucus Urine Few
[2023-08-30 22:31] VITALS: PULSE 76; RESP 16
[2023-08-31] VITALS (9 sets, daily range): BP systolic 101–141; BP diastolic 47–72; PULSE 59–82; RESP 16–20; TEMP 36.4–37.4; O2SAT 90–94
[2023-08-31] MEDS: 0.9 % SODIUM CHLORIDE 1000 ml 1,000 ML 125 ML IV ×2 (00:18→17:24)
--- NOTE | 2023-08-31 05:15 | PC.NURSE ---
END OF SHIFT NOTE: PT PLEASANT AND COOPERATIVE WITH CARES. A&Ox3. PT DENIES CP, SOB, N/V. AMBULATES INDEPENDENTLY. VSS ON RA; MAX TEMP 99.4F. REMOVED SOME COVERS AND DECREASED TEMPERATURE IN ROOM WHICH WAS EFFECTIVE. PT REFUSED NUTRITIONAL SUPPLEMENT WHEN OFFERED. CALL LIGHT WITHIN PT?S REACH. UNABLE TO COLLECT STOOL SAMPLE FOR HPYLORI.?
[2023-08-31 06:59] LABS: HCO3 VBG 28 mmol/L (21-28); Ionized Calcium* 1.57 mmol/L (1.11-1.30); Lactate* 0.6 mmol/L (0.5-1.9); PCO2 VBG 47 mmHG (40-50); PO2 VBG 24.4 mmHG (25-47); pH VBG 7.385 (7.32-7.43)
[2023-08-31 07:25] LABS: Basophils Percent Auto 0.1 % (0.0-3.0); Eosinophils Percent Auto 0.8 % (0.0-7.0); Hematocrit 31.6 % (33.0-51.0); Hemoglobin* 9.9 gm/dL (12.0-16.0); Mean Corpuscular HGB Conc 31 gm/dL (32-36); Mean Corpuscular Hemoglobin 31 pg (26-34); Mean Corpuscular Volume 98 fL (80-100); Monocytes Percent Auto 4.8 % (0.0-11.0); Neutrophils Percent Auto 6.3 % (42.0-72.0); Platelet Count* 144 K/uL (140-440); RDW Coefficient of Variation % 16.4 % (11.5-15.5); Red Blood Count 3.24 m/uL (4.00-5.20)
[2023-08-31 07:56] LABS: INR 0.94 (0.91-1.10); Prothrombin Time 13.2 Seconds
[2023-08-31 08:11] LABS: Albumin* 3.3 g/dL (3.3-5.0); Chloride* 105 mmol/L (96-114)
[2023-08-31 08:12] LABS: Potassium* 3.7 mmol/L (3.6-5.1); Sodium* 136 mmol/L (135-149)
[2023-08-31 08:14] LABS: Alkaline Phosphatase* 80 U/L (40-150); Anion Gap 5 mEq/L (7-15); Aspartate Amino Transferase* 41 U/L (12-35); Bilirubin Direct* 0.1 mg/dL (0.0-0.5); Bilirubin Total* 1.1 mg/dL (0.1-1.5); Blood Urea Nitrogen* 55 mg/dL (7-30); Carbon Dioxide* 26 mmol/L (20-32); Creatinine* 1.5 mg/dL (0.5-1.5); Est. Creatinine Clearance* 34.54; Estimated Glomerular Filt Rate 38 ml/min; Total Protein* 5.5 g/dL (6.0-8.3)
[2023-08-31 08:15] LABS: Alanine Aminotransferase* 58 U/L (4-35); Calcium* 11.2 mg/dL (8.4-10.6); Glucose* 112 mg/dL (60-115); Magnesium* 1.3 mg/dL (1.5-2.6); Phosphorus* 3.7 mg/dL (2.5-4.5)
[2023-08-31 08:17] LABS: C Reactive Protein* 0.9 mg/dL (0.5-1.0)
[2023-08-31 08:25] LABS: NT Pro B Type NatriureticPept* 521 pg/mL
[2023-08-31 08:56] LABS: Slide Review Acceptable Review (Acceptable); Slide Review Reflex Yes
[2023-08-31] MEDS: METOPROLOL SUCCINATE (XL) 100 MG TAB PO (09:03)
[2023-08-31] MEDS: 0.9 % SODIUM CHLORIDE 1000 ml 1,000 ML 500 ML IV (11:03)
[2023-08-31] MEDS: MAGNESIUM IV 2 GM/50 ML PIGGYBACK IVPB (11:40)
--- NOTE | 2023-08-31 12:55 | PM.IMPN1 ---
Progress Note: A&P Assessment and plan (1) Dehydration: Problem details: Improving with IV fluids. Status: Acute (2) Hypercalcemia: Problem details: Improving with IV fluids. Cause for this is uncertain. Check PTH. Stop hydrochlorothiazide Status: Acute (3) Acute renal failure: Problem details: Related to hypercalcemia and dehydration. IV fluid Status: Acute (4) Lymphoma, small lymphocytic: Problem details: Will need to review with Oncology the extent which CLL/SLL is contributing to current problems and whether treatment needs to be initiated. Status: Chronic (5) Type 2 diabetes mellitus: Problem details: Well controlled Status: Acute (6) Diarrhea: Problem details: Improved without specific therapy Status: Acute (7) Weight loss, abnormal: Problem details: 16 kg in 2 months. Assess her ability to maintain p.o. nutrition and hydration Status: Acute (8) Polypharmacy: Problem details: Stop metformin and methotrexate and hydrochlorothiazide and atorvastatin temporarily. Status: Acute (9) No appetite: Problem details: 8 weeks of poor appetite. Cause is uncertain. Likely also related to her hypercalcemia and dehydration Status: Acute (10) Bullous pemphigoid: Problem details: Dr. Lance starting methotrexate in January. Skin is clear. Stop methotrexate for now. Will need follow-up with Dr. Lance for alternative treatment of bolus pemphigoid Status: Acute (11) Elevated liver transaminase level: Problem details: Improved today. Stop methotrexate. History of excessive alcohol use. Reinforce message of no alcohol use at this time. Status: Acute Plan Continue in hospital for IV fluids, monitoring of hypercalcemia and dehydration and acute kidney injury. When able to manage p.o. food and fluid intake will discharge to home with outpatient follow-up with Oncology and Dermatology. Time Spent With Patient Total time spent: Total time spent today is 60 minutes, 45 minutes in coordination of care and discussing with patient other providers management of bullous pemphigoid, CLL/SLL, diabetes, dehydration, loss of appetite Subjective Date Seen: 08/31/23 Interval history: Alexandra Dixon is a 68 year old woman who presents to [facility] as a direct admission from her primary care physician, Dr. Bashir. Patient and tell me that she has not been feeling well for the past 8-9 weeks. During this interim of time she has lost her interest in eating, drinks 3 small bottles of water daily, eats soup. states she hardly eats at all. Patient indicates nothing tastes good. Denies nausea vomiting. Has intermittent left upper quadrant abdominal discomfort. States her blood sugars are adequately controlled. Continues to take metformin regularly. Denies hypoglycemic symptoms. She reports chronic diarrhea. Did have loose stools earlier today. No blood loss. Has not had any alcoholic beverage for the last 2-3 weeks. Has been taking methotrexate weekly for bullous pemphigoid. Before starting methotrexate on the 01/26/2023, she was consuming about 14 alcoholic beverages per week. Up until about 2-3 weeks ago she had cut down her alcohol consumption to 9 alcoholic beverages every week. Not that she is not interested in drinking but she states that the alcoholic beverage has no flavor now and so she has pretty much stopped drinking over the last 2-3 weeks. Denies alcohol withdrawal. During this interim of time she has unintentionally lost 11 kg. 06/23/2023 she weighed 88 kg. Current weight on admission 71.8 kg. First day in the hospital weight is 75 kg. Denies night sweats or fevers. Reports profound fatigue malaise loss of appetite. She also reports no taste or bad taste of food. While being assessed for these complaints per her primary care physician, Dr. Bashir, her white blood cell count was noted be 67,000 in association with her small lymphocytic lymphoma/SLL. Normally she runs around 80,000. Additionally her serum creatinine was markedly elevated at 2.1, previously 0.7, and her BUN was markedly elevated at 67, previously 23. Her primary care physician was particularly concerned about the serum calcium being elevated at 12.7. Patient was thus admitted to the hospital for further assessment and intervention. Noteworthy is that patient has a polypharmacy. Starting methotrexate on the 01/26/2023, takes metformin regularly, takes hydrochlorothiazide regularly. Also takes vitamin-D. Exam Narrative: Exam Narrative: She is alert and appears in no distress. She has eaten about half of her breakfast tray this morning and reports known nausea or abdominal pain. She does report that she feels full. No respiratory problems. She has not had a bowel movement since admission though she notes diarrhea/loose stools prior to admission. Const: Vital Signs, click to edit/add: Vital Signs - 24 hr 08/30/23 14:53 08/30/23 15:18 08/30/23 17:16 Temperature 98.0 F Pulse Rate [Left P ulse Oximeter] 87 Pulse Rate [orthos tatic lying Right Pulse Oximeter] 73 Pulse Rate [orthos tatic sitting Left Pulse Oximeter] 73 Pulse Rate [orthos tatic sitting Righ t Pulse Oximeter] 79 Pulse Rate [orthos tatic standing Rig ht Pulse Oximeter] 83 Respiratory Rate 16 18 Blood Pressure [Le ft Arm] 101/66 Blood Pressure [or thostatic lying Le ft Arm] Blood Pressure [or thostatic lying Ri ght Arm] 105/50 L Blood Pressure [or thostatic sitting Left Arm] 102/50 L Blood Pressure [or thostatic sitting Right Arm] 102/50 L Blood Pressure [or thostatic standing Left Arm] Blood Pressure [or thostatic standing Right Arm] 104/60 Pulse Oximetry 95 96 Oxygen Delivery Me thod Room Air Room Air 08/30/23 20:40 08/30/23 22:31 08/31/23 00:15 Temperature 97.9 F Pulse Rate [Left P ulse Oximeter] 76 Pulse Rate [orthos tatic lying Right Pulse Oximeter] Pulse Rate [orthos tatic sitting Left Pulse Oximeter] Pulse Rate [orthos tatic sitting Righ t Pulse Oximeter] Pulse Rate [orthos tatic standing Rig ht Pulse Oximeter] Respiratory Rate 16 16 20 Blood Pressure [Le ft Arm] 119/73 Blood Pressure [or thostatic lying Le ft Arm] Blood Pressure [or thostatic lying Ri ght Arm] Blood Pressure [or thostatic sitting Left Arm] Blood Pressure [or thostatic sitting Right Arm] Blood Pressure [or thostatic standing Left Arm] Blood Pressure [or thostatic standing Right Arm] Pulse Oximetry 92 90 Oxygen Delivery Me thod Room Air Room Air 08/31/23 00:15 08/31/23 04:00 08/31/23 07:00 Temperature 98.9 F 99.4 F Pulse Rate [Left P ulse Oximeter] 74 71 71 Pulse Rate [orthos tatic lying Right Pulse Oximeter] Pulse Rate [orthos tatic sitting Left Pulse Oximeter] Pulse Rate [orthos tatic sitting Righ t Pulse Oximeter] Pulse Rate [orthos tatic standing Rig ht Pulse Oximeter] Respiratory Rate 20 16 16 Blood Pressure [Le ft Arm] 122/61 128/58 L Blood Pressure [or thostatic lying Le ft Arm] Blood Pressure [or thostatic lying Ri ght Arm] Blood Pressure [or thostatic sitting Left Arm] Blood Pressure [or thostatic sitting Right Arm] Blood Pressure [or thostatic standing Left Arm] Blood Pressure [or thostatic standing Right Arm] Pulse Oximetry 90 90 Oxygen Delivery Me thod Room Air Room Air 08/31/23 07:00 08/31/23 07:00 08/31/23 10:25 Temperature 97.6 F Pulse Rate [Left P ulse Oximeter] 71 Pulse Rate [orthos tatic lying Right Pulse Oximeter] 69 Pulse Rate [orthos tatic sitting Left Pulse Oximeter] Pulse Rate [orthos tatic sitting Righ t Pulse Oximeter] 76 Pulse Rate [orthos tatic standing Rig ht Pulse Oximeter] 82 Respiratory Rate 16 16 Blood Pressure [Le ft Arm] 113/59 L Blood Pressure [or thostatic lying Le ft Arm] 114/47 L Blood Pressure [or thostatic lying Ri ght Arm] Blood Pressure [or thostatic sitting Left Arm] 102/48 L Blood Pressure [or thostatic sitting Right Arm] Blood Pressure [or thostatic standing Left Arm] 101/52 L Blood Pressure [or thostatic standing Right Arm] Pulse Oximetry 93 93 Oxygen Delivery Me thod Room Air Room Air Documenting provider has reviewed patient's vital signs: yes Labs Labs: Laboratory Results - last 24 hr 08/30/23 08/30/23 08/31/23 15:43 Unknown 05:56 WBC 41.90 H* RBC 3.24 L Hgb 9.9 L Hct 31.6 L MCV 98 MCH 31 MCHC 31 L RDW Coeff of Shabana 16.4 H Plt Count 144 Neut % (Auto) 6.3 L Lymph % (Auto) 87.0 H [place] % (Auto) 4.8 Eos % (Auto) 0.8 Baso % (Auto) 0.1 Neut # (Auto) 2.60 Lymph # (Auto) 36.50 H [place] # (Auto) 2.00 H Eos # (Auto) 0.30 Baso # (Auto) 0.00 Abs Immat Gran (auto) 0.40 H Imm/Tot Granulo (auto) 1.0 Diff Slide Review Acceptable Review INR 0.94 VBG pH 7.404 7.385 VBG pCO2 45 47 VBG pO2 25.4 24.4 L VBG HCO3 28 28 Sodium 136 Potassium 3.7 Chloride 105 Carbon Dioxide 26 Anion Gap 5 L BUN 55 H Creatinine 1.5 Estimated Creat Clear 34.54 Estimated GFR 38 Glucose 112 Lactate 1.6 0.6 Calcium 11.2 H Ionized Calcium Abhijeet 1.57 H Phosphorus 3.7 Magnesium 1.3 L Total Bilirubin 1.1 Direct Bilirubin 0.1 AST 41 H ALT 58 H Alkaline Phosphatase 80 Troponin I 0.02 C-Reactive Protein 0.9 NT-Pro-B Natriuret Pep 406 521 Total Protein 5.5 L Albumin 3.3 TSH 1.930 Urine Color Yellow Urine Appearance Cloudy A Urine pH 5.0 Ur Specific Ghe[place] 1.020 Urine Protein Trace A Urine Glucose (UA) Negative Urine Ketones Negative Urine Blood Negative Urine Nitrite Negative Urine Bilirubin Negative Urine Urobilinogen 0.2 Ur Leukocyte Esterase Trace A Urine RBC 2-5 A Urine WBC 25-50 A Ur Squamous Epith Cells Few Amorphous Sediment Few A Urine Bacteria Moderate A Urine Mucus Few A Lab Acknowledgement 08/31/23 07:48 WBC RBC Hgb Hct MCV MCH MCHC RDW Coeff of Shabana Plt Count Neut % (Auto) Lymph % (Auto) [place] % (Auto) Eos % (Auto) Baso % (Auto) Neut # (Auto) Lymph # (Auto) [place] # (Auto) Eos # (Auto) Baso # (Auto) Abs Immat Gran (auto) Imm/Tot Granulo (auto) Diff Slide Review INR VBG pH VBG pCO2 VBG pO2 VBG HCO3 Sodium Potassium Chloride Carbon Dioxide Anion Gap BUN Creatinine Estimated Creat Clear Estimated GFR Glucose Lactate Calcium Ionized Calcium Abhijeet Phosphorus Magnesium Total Bilirubin Direct Bilirubin AST ALT Alkaline Phosphatase Troponin I C-Reactive Protein NT-Pro-B Natriuret Pep Total Protein Albumin TSH Urine Color Urine Appearance Urine pH Ur Specific [place] Urine Protein Urine Glucose (UA) Urine Ketones Urine Blood Urine Nitrite Urine Bilirubin Urine Urobilinogen Ur Leukocyte Esterase Urine RBC Urine WBC Ur Squamous Epith Cells Amorphous Sediment Urine Bacteria Urine Mucus Lab Acknowledgement Test Added
[2023-08-31 14:18] LABS: H pylori Ag Stool* Negative (Negative)
[2023-08-31 14:29] LABS: Chloride* 104 mmol/L (96-114); Potassium* 3.7 mmol/L (3.6-5.1); Sodium* 139 mmol/L (135-149)
[2023-08-31 14:32] LABS: Anion Gap 10 mEq/L (7-15); Blood Urea Nitrogen* 45 mg/dL (7-30); Calcium* 11.5 mg/dL (8.4-10.6); Carbon Dioxide* 25 mmol/L (20-32); Creatinine* 1.4 mg/dL (0.5-1.5); Estimated Glomerular Filt Rate 41 ml/min; Glucose* 101 mg/dL (60-115)
[2023-08-31] MEDS: ENOXAPARIN 40 MG/0.4 ML INJ SUBCUT (21:00)
[2023-09-01] VITALS (8 sets, daily range): BP systolic 125–144; BP diastolic 44–76; PULSE 60–75; RESP 16–18; TEMP 36.6–36.9; O2SAT 90–93
[2023-09-01] MEDS: 0.9 % SODIUM CHLORIDE 1000 ml 1,000 ML 125 ML IV (00:43)
--- NOTE | 2023-09-01 05:30 | PC.NURSE ---
Pt alert and oriented x3. Afebrile. Pt denies pain, chest pain, SOB, and N/V. Pt is up ad christian in room, voiding, and slept throughout most of night. Night uneventful.
[2023-09-01 06:34] LABS: Basophils Percent Auto 0.1 % (0.0-3.0); Eosinophils Percent Auto 1.2 % (0.0-7.0); Hematocrit 31.7 % (33.0-51.0); Hemoglobin* 9.8 gm/dL (12.0-16.0); Immature Granulocytes Pct Auto 0.7 %; Lymphocytes Percent Auto 87.9 % (20-44); Mean Corpuscular HGB Conc 31 gm/dL (32-36); Mean Corpuscular Hemoglobin 30 pg (26-34); Mean Corpuscular Volume 97 fL (80-100); Monocytes Percent Auto 5.1 % (0.0-11.0); Platelet Count* 103 K/uL (140-440); RDW Coefficient of Variation % 16.5 % (11.5-15.5); Red Blood Count 3.26 m/uL (4.00-5.20)
[2023-09-01 06:57] LABS: Chloride* 109 mmol/L (96-114); Potassium* 3.6 mmol/L (3.6-5.1); Sodium* 137 mmol/L (135-149)
[2023-09-01 06:59] LABS: Anion Gap 8 mEq/L (7-15); Bilirubin Total* 1.1 mg/dL (0.1-1.5); Carbon Dioxide* 20 mmol/L (20-32); Est. Creatinine Clearance* 51.81; Estimated Glomerular Filt Rate 62 ml/min
[2023-09-01 07:00] LABS: Alanine Aminotransferase* 55 U/L (4-35); Alkaline Phosphatase* 72 U/L (40-150); Aspartate Amino Transferase* 52 U/L (12-35); Blood Urea Nitrogen* 32 mg/dL (7-30); Calcium* 10.5 mg/dL (8.4-10.6); Glucose* 107 mg/dL (60-115); Magnesium* 1.3 mg/dL (1.5-2.6); Total Protein* 5.2 g/dL (6.0-8.3)
[2023-09-01 07:10] LABS: Slide Review Reflex Yes; White Blood Count* 45.86 K/uL (4.50-11.00)
[2023-09-01 07:11] LABS: Slide Review Acceptable Review (Acceptable)
[2023-09-01] MEDS: MAGNESIUM IV 2 GM/50 ML PIGGYBACK IVPB (08:02)
[2023-09-01] MEDS: METOPROLOL SUCCINATE (XL) 100 MG TAB PO (08:54)
[2023-09-01] MEDS: MAGNESIUM OXIDE 400 MG TABLET PO (08:54)
[2023-09-01] MEDS: SODIUM CHLORIDE 0.9 % (FLUSH) 10 ML SYRINGE 5 ML IVF ×2 (08:54→20:02)
[2023-09-01 11:09] LABS: Vitamin D 25 Hydroxy* 103 ng/mL (30-80)
--- NOTE | 2023-09-01 18:46 | PC.NURSE ---
End of Shift: A and O, although forgetful at times. The patients VS are stable on RA. Up ad christian as tolerated int he room. The patient ate 50% of breakfast and denied lunch multiple times... Nutrition supplements were offered throughout the day as well.. the patient did not like the ensure clear apple. She would like to try the chocolate ensure shake, but unfortunately we are out of them. Order to saline lock was completed this AM. 2 grams of magnesium were given via IV this AM due to low levels. No reports of pain.. reported minor gas pains in her stomach prior/ after having a BM today. 2 BMS of soft formed stool. Voiding well. TEDSA remain on.. patient refused placement of SCDs (don't like them). I educated her on the importance of walking and preventing clots. Calls appropriately. No other concerns at this time. Bruna SMILEY BSN
[2023-09-01] MEDS: ATORVASTATIN CALCIUM 40 MG TABLET PO (20:02)
[2023-09-01] MEDS: ENOXAPARIN 40 MG/0.4 ML INJ SUBCUT (20:03)
[2023-09-01] MEDS: INSULIN ASPART 100 UNIT/ML SUBCUT (20:03)
[2023-09-02 00:10] VITALS: BP 138/61; PULSE 70; RESP 16; TEMP 36.6; O2SAT 90
[2023-09-02 03:00] VITALS: RESP 18
[2023-09-02 06:24] LABS: Basophils Percent Auto 0.1 % (0.0-3.0); Eosinophils Percent Auto 1.4 % (0.0-7.0); Hemoglobin* 10.8 gm/dL (12.0-16.0); Immature Granulocytes Pct Auto 0.9 %; Lymphocytes Percent Auto 86.1 % (20-44); Mean Corpuscular HGB Conc 32 gm/dL (32-36); Mean Corpuscular Hemoglobin 30 pg (26-34); Mean Corpuscular Volume 96 fL (80-100); Monocytes Percent Auto 4.4 % (0.0-11.0); Neutrophils Percent Auto 7.1 % (42.0-72.0); Platelet Count* 117 K/uL (140-440); RDW Coefficient of Variation % 16.5 % (11.5-15.5); Red Blood Count 3.55 m/uL (4.00-5.20)
--- NOTE | 2023-09-02 06:35 | PC.NURSE ---
Pt alert and oriented x3. Pt denies chest pain, SOB, pain, and N/V. Pt was able to finish half of ensure. Pt is up Ind in room and slept throughout most of night. Night uneventful.
[2023-09-02 06:37] LABS: Chloride* 106 mmol/L (96-114); Potassium* 3.2 mmol/L (3.6-5.1); Sodium* 135 mmol/L (135-149)
[2023-09-02 06:40] LABS: Anion Gap 5 mEq/L (7-15); Blood Urea Nitrogen* 20 mg/dL (7-30); Calcium* 10.6 mg/dL (8.4-10.6); Carbon Dioxide* 24 mmol/L (20-32); Est. Creatinine Clearance* 51.81; Estimated Glomerular Filt Rate 62 ml/min; Glucose* 117 mg/dL (60-115); Magnesium* 1.4 mg/dL (1.5-2.6)
[2023-09-02 07:00] VITALS: BP 125/60; PULSE 71; RESP 20; TEMP 36.5; O2SAT 89; O2SAT 90
[2023-09-02 07:22] LABS: Slide Review Reflex Yes; White Blood Count* 65.58 K/uL (4.50-11.00)
[2023-09-02 07:41] LABS: Slide Review Acceptable Review (Acceptable)
[2023-09-02] MEDS: lisinopriL 10 MG TABLET PO (08:31)
[2023-09-02] MEDS: MAGNESIUM OXIDE 400 MG TABLET PO (08:32)
[2023-09-02] MEDS: METOPROLOL SUCCINATE (XL) 100 MG TAB PO (08:32)
[2023-09-02] MEDS: SODIUM CHLORIDE 0.9 % (FLUSH) 10 ML SYRINGE 5 ML IVF (08:33)
--- NOTE | 2023-09-02 08:53 | PC.NURSE ---
Patient tolerating regular diet. Patient ate breakfast of scrambled eggs and toast with peanut butter and jelly. Patient reports having no nausea, vomiting or stomach discomfort during or after eating. Patient denies any discomfort but reports having gas. O2 stats 88-90% on room air. VSS.
[2023-09-02] MEDS: POTASSIUM BICARB 25 MEQ EFFERVESCENT TAB 50 MEQ PO (10:19)
[2023-09-02] MEDS: MAGNESIUM IV 2 GM/50 ML PIGGYBACK IVPB (10:20)
[2023-09-02 10:31] VITALS: BP 140/60; PULSE 62; RESP 18; TEMP 36.3; O2SAT 91
[2023-09-02 12:47] LABS: Potassium* 4.1 mmol/L (3.6-5.1)
[2023-09-02 12:50] LABS: Magnesium* 2.3 mg/dL (1.5-2.6)
--- NOTE | 2023-09-02 12:56 | P.DS_ITS ---
DS: Providers Provider Date Seen: 09/02/23 Date of admission: 08/31/23 14:52 Primary care physician: Katerine Bashir MD Admitting Clinician: Anderson Saxena MD Attending Physician on discharge: Anderson Saxena MD Date of Discharge: 09/02/23 DS: Diagnosis Discharge Diagnosis (1) Hypercalcemia: Status: Acute Problem details: Improving with IV fluids. She did not receive zoledronic acid. If calcium increases again that may be required in the future. Cause for this is uncertain. PTH is suppressed. Concern for hypercalcemia related to malignancy. CLL/ SLL does not typically cause hypercalcemia. PTHrP is pending. Obtain chest CT as outpatient.Follow-up with Oncology in 1 week . (2) Acute renal failure: Status: Acute Problem details: Related to hypercalcemia and dehydration. Back to baseline creatinine of 1.0 with IV fluids (3) Dehydration: Status: Acute Problem details: resolved with IV fluids. Patient has been able to maintain hydration with oral food and fluid (4) Weight loss, abnormal: Status: Acute Problem details: 16 kg weight loss in 2 months. she was able to maintain her nutrition but noted a poor appetite in the hospital. (5) Diarrhea: Status: Acute Problem details: Improved without specific therapy . Stop metformin (6) No appetite: Status: Acute Problem details: 8 weeks of poor appetite. Cause is uncertain. acutely worse with her hypercalcemia and dehydration (7) Weakness: Status: Acute Problem details: patient reported generalized weakness. This is thought likely related to multiple other medical problems, dehydration, nutrition (8) Bullous pemphigoid: Status: Acute Problem details: Dr. Lance started methotrexate in January. Skin is clear. Stop methotrexate for now due to concern for toxicity. Will need follow-up with Dr. Lance for assessment of treatment of bullous pemphigoid. This is arranged for September after her outpatient primary care and oncology evaluation. (9) Lymphoma, small lymphocytic: Status: Chronic Problem details: Follow-up with Oncology in 1 week to review CLL/SLL management as well as her hypercalcemia that possibly is related to malignancy. (10) Type 2 diabetes mellitus: Status: Acute Problem details: Well controlled (11) Hypertension: Status: Chronic (12) Elevated liver transaminase level: Status: Acute Problem details: Improved today. Stop methotrexate. History of excessive alcohol use. recommend abstinence from alcohol for now. (13) Hypomagnesemia: Status: Acute Problem details: Possibly related to hypercalcemia. Continue replacement and monitoring as outpatient. DS: Summary Hospital Course Hospital Course: 68-year-old female referred to the hospital for hypercalcemia with a calcium of 12.7 obtain an outpatient clinic visit. Patient reports that over the last 2 months she has had very poor appetite with poor oral intake and weight loss of 16 kg. She has had nausea but no significant abdominal pain or vomiting. She has had relatively persistent mild diarrhea which was nonbloody.. The cause for her loss of appetite is unclear at this time. On admission she was hydrated with normal saline. Her calcium has come down to 10.6, the borderline upper limit of normal. Her renal function has gone from a creatinine of 2.1-1.0. She has been able to eat and drink but still reports a poor appetite. She was able to maintain her own nutrition and hydration over the last two days. She did not require treatment with zoledronic acid. She had parathyroid hormone level checked and it was 10 which is a suppressed level consistent with a diagnosis of hypercalcemia not mediated by parathyroid hormone. This is suspicious for malignancy. Patient does have a history of CLL/ SLL And this is not typically a cause of hypercalcemia. No other obvious malignancy noted. CT abdomen pelvis showed relative stability of her CLL / SLL. No other obvious GI cause for her symptoms. Chest CT will be ordered by the oncology clinic for oncology follow-up appointment next week. PTHrp level is also pending. During her hospital stay her hydrochlorothiazide was held because of dehydration and hypercalcemia. Blood pressure was normal so this was not restarted on di scharge. Her methotrexate was also held because of abnormal LFTs and significant gastrointestinal symptoms. At follow-up with Oncology and Dermatology the decision can be made to restart this or to use alternative therapy for her bullous pemphigoid and her CLL/SLL. Her skin was clear at the time of admission. Her metformin was held due to gastrointestinal symptoms and diarrhea. Blood sugars have been well controlled so metformin was not restarted. Status at Discharge Functional status at discharge: independent ambulation Overall status at discharge: patient is progressing back to baseline Time Spent with Patient Time attestation: Total time spent providing and/or coordinating discharge services: 45 minutes, most that time spent discussing with patient, and other providers ongoing evaluation management of hypercalcemia, loss of appetite and weight loss, hypertension diabetes and other electrolyte problems Time spent: Greater than 30 minutes Exam Narrative: Exam Narrative: she is alert and appears in no distress. Respirations are clear to auscultation. Cardiovascular: S1, S2, regular rate and rhythm. No murmur gallop or rub. Abdomen: Bowel sounds active. Abdomen is soft without tenderness or mass. Const: Vital Signs, click to edit/add: Vital Signs - 24 hr 09/01/23 15:00 09/01/23 15:00 09/01/23 19:55 Temperature 98.1 F 98.1 F Pulse Rate [Left P ulse Oximeter] 62 75 Respiratory Rate 18 16 Blood Pressure [Le ft Arm] 144/75 H 125/60 Pulse Oximetry 93 93 91 Oxygen Delivery Me thod Room Air Room Air Room Air 09/01/23 22:37 09/02/23 00:10 09/02/23 03:00 Temperature 97.8 F Pulse Rate [Left P ulse Oximeter] 70 Respiratory Rate 16 16 18 Blood Pressure [Le ft Arm] 138/61 Pulse Oximetry 90 Oxygen Delivery Me thod Room Air 09/02/23 07:00 09/02/23 07:00 09/02/23 07:00 Temperature 97.7 F Pulse Rate [Left P ulse Oximeter] 71 71 Respiratory Rate 20 Blood Pressure [Le ft Arm] 125/60 Pulse Oximetry 90 89 Oxygen Delivery Me thod Room Air Room Air 09/02/23 10:31 Temperature 97.4 F L Pulse Rate [Left P ulse Oximeter] 62 Respiratory Rate 18 Blood Pressure [Le ft Arm] 140/60 H Pulse Oximetry 91 Oxygen Delivery Me thod Room Air Documenting provider has reviewed patient's vital signs: yes DS: Data Data Completed and Pending Labs on day of discharge: Labs from last 24 hours 09/02/23 09/02/23 08/31/23 12:25 06:14 05:56 WBC 65.58 H* RBC 3.55 L Hgb 10.8 L Hct 34.0 MCV 96 MCH 30 MCHC 32 RDW Coeff of Shabana 16.5 H Plt Count 117 L Neut % (Auto) 7.1 L Lymph % (Auto) 86.1 H [place] % (Auto) 4.4 Eos % (Auto) 1.4 Baso % (Auto) 0.1 Neut # (Auto) 4.70 Lymph # (Auto) 56.50 H [place] # (Auto) 2.90 H Eos # (Auto) 0.90 H Baso # (Auto) 0.10 Abs Immat Gran (auto) 0.60 H Imm/Tot Granulo (auto) 0.9 Diff Slide Review Acceptable Review Sodium 135 Potassium 4.1 3.2 L Chloride 106 Carbon Dioxide 24 Anion Gap 5 L BUN 20 Creatinine 1.0 Estimated Creat Clear 51.81 Estimated GFR 62 Glucose 117 H Calcium 10.6 Magnesium 2.3 1.4 L PTH Intact pmol/L 10 L Calcium (PTH Intact) 11.8 H Discharge Plan Discharge Disposition: Home, Self-Care Date of Admission: 08/31/23 14:52 Attending Provider on Discharge: Anderson Saxena Primary Care Provider: Katerine Bashir Condition: Improved Anticipated Discharge Date/Time: 09/02/23 12:30 Discharge Medications: New magnesium oxide 400 mg (241.3 mg magnesium) Tablet 400 mg PO DAILY Qty: 30 0RF Continued aspirin 81 mg tablet,delayed release (DR/EC) 81 mg PO QDAY ascorbic acid (vitamin C) 500 mg tablet 500 mg PO QDAY cholecalciferol (vitamin D3) 25 mcg (1,000 unit) capsule 25 mcg PO BID albuterol sulfate 2.5 mg /3 mL (0.083 %) solution for nebulization 2.5 mg inhalation Q4-6H PRN fexofenadine [Rosangela Allergy] 180 mg tablet 180 mg PO QDAY atorvastatin 40 mg tablet 40 mg PO QDAY Qty: 90 4RF metoprolol succinate 100 mg tablet extended release 24 hr 100 mg PO QDAY Qty: 90 4RF albuterol sulfate 90 mcg/actuation HFA aerosol inhaler 2 puff inhalation Q4H PRN (Reason: shortness of breath or wheezing) Qty: 25.5 1RF nitroglycerin 0.4 mg tablet, sublingual 0.4 mg sublingual Q5-15M PRN (Reason: chest pain) Qty: 30 0RF Rx Instructions: PRN CHEST PAIN Changed lisinopril 40 mg tablet 20 mg PO QDAY Qty: 90 4RF Discontinued hydrochlorothiazide 25 mg tablet 25 mg PO QDAY Qty: 90 4RF metformin 1,000 mg tablet 1,000 mg PO QDAY Qty: 90 4RF methotrexate sodium 2.5 mg tablet 20 mg PO QWEEK Qty: 96 0RF Discharge Orders: Discharge Order (Routine); Ordered 09/02/23 Ordered By: Anderson Saxena Patient Education: Magnesium Oxide (By mouth), Acute Kidney Injury (DC), Hypercalcemia (DC) Additional Instructions: You have an oncology appointment on September 09. They will call you to arrange a CT scan of your chest prior to that appointment. He will need follow- up labs in 1 week including a basic metabolic panel and magnesium level Activity Level: Activity as Tolerated Discharge Diet: Regular Follow Up Appointments: Katerine Bashir MD [Primary Care Provider] - 09/10/23 7:30 am (Follow-up in 1 week. Check basic metabolic panel, liver function tests, magnesium in 1 week) Forms: [facility] Info Instructions
--- NOTE | 2023-09-02 14:58 | PC.NURSE ---
Patient independent in room with ambulating. Reported that she was tolerating regular diet, but that she did not really have an appetite. Denied pain. Refused supplement reporting that she has tried all of them and she did not like any. VSS. Patient discharged at 1442. Patient was wheeled to ER door by stafff and accompanied by her .
== END 2023-09-02 14:05 | disposition home or self-care (01) | DRG 641 ==
LOC: MEDSURG 14:36
PROVIDERS: Internal Medicine; Admitting Provider Family Medicine; PCP Family Medicine; Visit Provider Family Medicine
DX: E83.52 Hypercalcemia (principal); N17.9 Acute kidney failure, unspecified; L12.0 Bullous pemphigoid; C83.00 Small cell B-cell lymphoma, unspecified site; R63.0 Anorexia; R63.4 Abnormal weight loss; E86.0 Dehydration; R53.1 Weakness; E11.9 Type 2 diabetes mellitus without complications; Z79.84 Long term (current) use of oral hypoglycemic drugs; I10 Essential (primary) hypertension; R16.1 Splenomegaly, not elsewhere classified; Z79.631 Long term (current) use of antimetabolite agent; I25.10 Atherosclerotic heart disease of native coronary artery without angina pectoris; Z95.1 Presence of aortocoronary bypass graft; Z95.5 Presence of coronary angioplasty implant and graft; R19.7 Diarrhea, unspecified
CPT/HCPCS: 36415; 74177; 80048; 80053; 80076; 81001; 82150; 82306; 82310; 82330; 82397; 82652; 82803; 82962; 83605; 83690; 83735; 83880; 83970; 84100; 84132; 84443; 84484; 85025; 85045; 85610; 86140; 87086; 87338; A9270; G0378; G0379; J1650; J3475; J7030; J7050; Q9967

== ENCOUNTER 2023-09-04 13:20 | Outpatient (CLI) | payer MEDICARE, SELFPAY ==
--- NOTE | 2023-09-04 14:00 | CRLHL7_ITS ---
For Patients: As a result of the Century Cures Act, medical imaging exams and procedure reports are released immediately into your electronic medical record. You may view this report before your referring provider. If you have questions, please contact your health care provider. INDICATION: Rule out progressive disease or secondary malignancy hypercalcemia TECHNIQUE: CT chest was acquired with IV contrast. 75 mL Isovue 370 COMPARISON: CT 08/16/2022 FINDINGS: Cardiovascular structures: Heart size is normal. Thoracic aorta and main pulmonary artery are normal in caliber. Mediastinum and nury: Bulky cervical supraclavicular adenopathy unchanged bulky mediastinal hilar adenopathy appears worse. Example 3.4 centimeter short axis subcarinal node previously measuring 2.5 centimeters by short axis. There is bulky axillary adenopathy without significant change Lungs: 3 millimeter granuloma. There is diffuse ground-glass opacities which could be infectious or inflammatory. A 4 millimeter left apical nodule unchanged on 01/08 Pleura and pericardium: No effusions. Chest wall and axilla: No mass or adenopathy. Bones: No significant findings. Upper abdomen: Splenomegaly only partially imaged measuring at least 13 0.4 cm. Upper abdominal bulky adenopathy without significant change IMPRESSION: 1. Fairly similar bulky supraclavicular cervical mediastinal hilar axillary upper abdominal adenopathy without significant change aside from mediastinal and hilar adenopathy which is worse. 2. Splenomegaly only partially seen. 3. Diffuse ground-glass opacities could be infectious or inflammatory. No new nodules are seen. Please note that all CT scans at this facility use dose modulation, iterative reconstruction, and/or weight-based dosing when appropriate to reduce radiation dose to as low as reasonably achievable. Dictated by Danielle Moreau MD @ 09/06/2023 3:34:11 PM (Electronically Signed)
== END 2023-09-04 13:21 | disposition home or self-care (01) ==
LOC: CT 13:21
PROVIDERS: PCP Family Medicine; Visit Provider Physician Assistant
DX: E83.52 Hypercalcemia (principal); R16.1 Splenomegaly, not elsewhere classified; C83.00 Small cell B-cell lymphoma, unspecified site
CPT/HCPCS: 71260; Q9967

== ENCOUNTER 2023-09-09 11:49 | Inpatient (IN) | payer MEDICARE, SELFPAY ==
[2023-09-09] VITALS (37 sets, daily range): BP systolic 114–137; BP diastolic 50–66; PULSE 46–106; RESP 17–26; TEMP 36.2–36.8; O2SAT 64–96; BMI 24.6; BMI 25.9
--- NOTE | 2023-09-09 12:11 | ED_ITS ---
HPI - General Adult General Chief complaint: Shortness of Breath/Dyspnea Stated complaint: From [facility] Time Seen by Provider: 09/09/23 12:10 History of Present Illness HPI narrative: hx of CLL. was at [facility] today for follow up and sats were 78% RA, pt sent to ED. upon arrival sats 73 %. quit smoking december 2021 68-year-old woman presenting to the emergency department from the infusion center at today. Underlying history of CLL. Concern is oxygen saturations of 78%. Arrived apparently with sat 73%. Does have a smoking history having quit about a year and a half ago. She denies a history of COPD though review of record indicates COPD diagnosis at some point. She notes herself to have been intermittently more short of breath over the last couple of days. No fever. No cough although she thinks she has got more mucus in her throat. No treatments. Not feeling lightheaded. Was initiated on magnesium supplementation at last admission. Reviewing records is often low 90s for oxygen saturations. Summation of recent hospitalization from oncology note today--- She was recently admitted at the hospital between 08/31/2023-09/02/2023 due to: Hypercalcemia, acute renal failure, dehydration, weight loss, diarrhea, loss of appetite, loss of weight, weakness; Her chronic illnesses are bullous pemphigoid and SLL, type 2 diabetes mellitus, hypertension. She was also found to have transaminitis and hypomagnesemia. She was transferred to the hospital for hypercalcemia with a calcium of 12.7 obtained outpatient leak, reported that she has had poor appetite and poor oral intake and weight loss of around 16 kg over the last 2 months. Did not have any vikki nausea vomiting, did not have any fevers chills drenching night sweats. Indicated she had loss of appetite due to unclear reasons. This resulted in loss of weight as well. There was a concern for malignancy as her parathyroid hormone levels were unremarkable for elevated calcium levels. CT chest abdomen pelvis have been obtained. Her methotrexate was held due to abnormal liver function tests. Her metformin was held due to GI symptoms. Related Data Home Medications Medication Instructions Recorded Confirmed aspirin 81 mg tablet,delayed 81 mg PO DAILY 04/26/22 09/09/23 release albuterol sulfate 2.5 mg/3 mL 2.5 mg inhalation Q4H PRN 11/19/22 09/09/23 (0.083 %) solution for nebulization cholecalciferol (vitamin D3) 25 25 mcg PO BID 11/19/22 09/09/23 mcg (1,000 unit) capsule ascorbic acid (vitamin C) 500 mg 500 mg PO DAILY 01/23/23 09/09/23 tablet fexofenadine 180 mg tablet 180 mg PO DAILY 01/23/23 09/09/23 (Rosangela Allergy) atorvastatin 40 mg tablet 40 mg PO HS 09/09/23 09/09/23 lisinopril 40 mg tablet 20 mg PO DAILY 09/09/23 09/09/23 metoprolol succinate 100 mg 100 mg PO DAILY 09/09/23 09/09/23 tablet,extended release 24 hr Previous Rx's Medication Instructions Recorded albuterol sulfate 90 mcg/actuation 2 puff inhalation Q4H PRN 09/05/22 aerosol inhaler shortness of breath or wheezing #25.5 grams nitroglycerin 0.4 mg sublingual 0.4 mg sublingual Q5-15M PRN chest 06/10/23 tablet pain #30 tabs magnesium oxide 400 mg (241.3 mg 400 mg PO DAILY #30 tabs 09/02/23 magnesium) tablet Allergies Allergy/AdvReac Type Severity Reaction Status Date / Time dunbar saul Allergy Intermediate Blisters/it Uncoded 09/09/23 16:03 [email or web address] Review of Systems Status of ROS: Reports: 6 or more systems reviewed and unremarkable except as noted in History and below [facility] Medical History 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-10) Diarrhea ?R19.7 - Diarrhea, unspecified (ICD-10) No appetite ?R63.0 - Anorexia (ICD-10) Bullous pemphigoid (~12/2022) ?L12.0 - Bullous pemphigoid (ICD-10) Splenomegaly (07/2022) ?R16.1 - Splenomegaly, not elsewhere classified (ICD-10) Elevated liver transaminase level ?R74.01 - Elevation of levels of liver transaminase levels (ICD-10) Ventricular bigeminy (2018) ?I49.8 - Other specified cardiac arrhythmias (ICD-10) History of bone density study (03/2023) ?Z92.89 - Personal history of other medical treatment (ICD-10) Vitamin D deficiency ?E55.9 - Vitamin D deficiency, unspecified (ICD-10) Dyslipidemia ?E78.5 - Hyperlipidemia, unspecified (ICD-10) Lymphoma, small lymphocytic (2018) ?C83.00 - Small cell B-cell lymphoma, unspecified site (ICD-10) No retinopathy on exam (03/2021) ?Z01.00 - Encounter for examination of eyes and vision without abnormal findings (ICD-10) Microalbuminuria due to type 2 diabetes mellitus ?E11.29 - Type 2 diabetes mellitus with other diabetic kidney complication (ICD-10) ?R80.9 - Proteinuria, unspecified (ICD-10) Hypertension ?I10 - Essential (primary) hypertension (ICD-10) History of myocardial infarction (11/21/15) ?I25.2 - Old myocardial infarction (ICD-10) History of malignant neoplasm of skin ?Z85.828 - Personal history of other malignant neoplasm of skin (ICD-10) Frequent ventricular premature beats ?I49.3 - Ventricular premature depolarization (ICD-10) Coronary artery disease (2000) ?I25.10 - Atherosclerotic heart disease of [place] coronary artery without angina pectoris (ICD-10) Surgical History History of four vessel coronary artery bypass graft (2000) ?Z95.1 - Presence of aortocoronary bypass graft (ICD-10) History of coronary artery stent placement (11/21/15) ?Z95.5 - Presence of coronary angioplasty implant and graft (ICD-10) Family History Father Stroke, Onset Age: 70 Prostate cancer Mother Diabetes Myocardial infarction, Onset Age: 65 Daughter Stroke, Onset Age: 36 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: , 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, 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 SMOKER: Tobacco abuse- 10/day, 32 pack years~ resolved 01/16 Does not exercise- active in garden and yard Social drinker- 2/week Past problems: Non-smoker- quit 2000, hx 30 pack years What is your current living situation?: I presently have a place to live Problems where you live: pests, such as bugs, ants, or mice Problems where you live details: occasional ants in wintertime In the past 12 months, utilities in danger of being shut off: no In past 12 months, lack of transportation kept you from medical appts, meetings, work, or getting things needed for daily living: no In the past 12 mos, have been you worried that your food would run out before you had money to buy more?: never true In the past 12 mos, the food you bought just didn't last and you didn't have money to buy more?: never true Highest level of school completed/degree received: some college, no degree Smoking Status: Former smoker Do you use any of these nicotine containing products: None Second hand tobacco smoke exposure: No How often do you have a drink containing alcohol: never How often do you have six or more drinks on one occasion: Never AUDIT-C Alcohol total score: 0 Non-prescribed substance use: denies use Caffeine: No (none last couple weeks) How often does anyone, including family, friends and others, physically hurt you : never How often does anyone, including family, friends and others, insult or talk down to you: never How often does anyone, including family, friends and others, threaten you with harm: never How often does anyone, including family, friends and others, scream or curse at you: never Little interest or pleasure in doing things: several days Feeling down, depressed, or hopeless: not at all service: No Exam Narrative: Exam Narrative: Pleasant. NAD. Slightly blunted affect seems a little slow in her responses to questions. Subtle scleral icterus? GCS though of 15. Skin is warm and dry. Bruised forearms. Lungs generally good air movement. No wheeze no squeaks no rhonchi though some trace crepitus in the right upper lung. Heart in slow but regular rate/rhythm, occasional ectopy. Abdomen is protuberant soft nontender. Lower extremities are well perfused and without edema. Const: Vital Signs, click to edit/add: Vital Signs - 24 hr 09/09/23 11:54 09/09/23 12:03 09/09/23 12:15 Temperature 98.2 F Pulse Rate 50 L 49 L Pulse Rate [Pulse Oximeter] 56 L Respiratory Rate 20 Blood Pressure Blood Pressure [Le ft Upper Arm] 137/57 L Pulse Oximetry 73 L 90 83 L Oxygen Delivery Me thod Room Air Oxygen Flow Rate 09/09/23 12:30 09/09/23 12:45 09/09/23 12:58 Temperature Pulse Rate 49 L 49 L Pulse Rate [Pulse Oximeter] Respiratory Rate Blood Pressure Blood Pressure [Le ft Upper Arm] Pulse Oximetry 86 L 89 93 Oxygen Delivery Me thod Nasal Cannula Nasal Cannula Oxygen Flow Rate 3 3 09/09/23 13:00 09/09/23 13:15 09/09/23 13:30 Temperature Pulse Rate 46 L 48 L 52 L Pulse Rate [Pulse Oximeter] Respiratory Rate Blood Pressure Blood Pressure [Le ft Upper Arm] Pulse Oximetry 93 94 96 Oxygen Delivery Me thod OxyMask OxyMask OxyMask Oxygen Flow Rate 3 4 4 09/09/23 13:45 09/09/23 14:00 09/09/23 14:03 Temperature Pulse Rate 48 L 62 49 L Pulse Rate [Pulse Oximeter] Respiratory Rate Blood Pressure 128/65 Blood Pressure [Le ft Upper Arm] Pulse Oximetry 93 88 91 Oxygen Delivery Me thod OxyMask OxyMask OxyMask Oxygen Flow Rate 4 4 4 09/09/23 14:04 09/09/23 14:16 09/09/23 14:30 Temperature Pulse Rate 48 L 75 54 L Pulse Rate [Pulse Oximeter] Respiratory Rate Blood Pressure Blood Pressure [Le ft Upper Arm] Pulse Oximetry 92 83 L 89 Oxygen Delivery Me thod OxyMask OxyMask OxyMask Oxygen Flow Rate 4 4 4 09/09/23 14:42 09/09/23 14:45 09/09/23 15:00 Temperature Pulse Rate 60 49 L Pulse Rate [Pulse Oximeter] Respiratory Rate 26 H Blood Pressure Blood Pressure [Le ft Upper Arm] Pulse Oximetry 88 87 L 87 L Oxygen Delivery Me thod OxyMask OxyMask OxyMask Oxygen Flow Rate 5 5 5 09/09/23 15:15 09/09/23 15:30 09/09/23 15:55 Temperature Pulse Rate 95 85 89 Pulse Rate [Pulse Oximeter] Respiratory Rate Blood Pressure Blood Pressure [Le ft Upper Arm] Pulse Oximetry 85 L 86 L 89 Oxygen Delivery Me thod OxyMask OxyMask OxyMask Oxygen Flow Rate 5 5 5 09/09/23 15:59 09/09/23 16:00 Temperature Pulse Rate 78 82 Pulse Rate [Pulse Oximeter] Respiratory Rate Blood Pressure 114/66 Blood Pressure [Le ft Upper Arm] Pulse Oximetry 93 94 Oxygen Delivery Me thod OxyMask OxyMask Oxygen Flow Rate 5 5 Documenting provider has reviewed patient's vital signs: yes Course Vital Signs Vital signs: Initial Vital Signs Temperature 98.2 F 09/09/23 11:54 Temperature Source Temporal Artery Scan 09/09/23 11:54 Pulse Rate 56 L 09/09/23 11:54 Respiratory Rate 20 09/09/23 11:54 Blood Pressure 137/57 L 09/09/23 11:54 Blood Pressure Mean 83 09/09/23 11:54 Blood Pressure Position Supine 09/09/23 11:54 Pulse Oximetry 73 L 09/09/23 11:54 Oxygen Delivery Method Room Air 09/09/23 11:54 Vital Signs Temperature 98.2 F 09/09/23 11:54 Pulse Rate 56 L 09/09/23 11:54 Respiratory Rate 20 09/09/23 11:54 Blood Pressure 137/57 L 09/09/23 11:54 Pulse Oximetry 73 L 09/09/23 11:54 Oxygen Delivery Method Room Air 09/09/23 11:54 Temperature 98.2 F 09/09/23 11:54 Pulse Rate 82 09/09/23 16:00 Respiratory Rate 26 H 09/09/23 14:42 Blood Pressure 114/66 09/09/23 15:59 Pulse Oximetry 94 09/09/23 16:00 Oxygen Delivery Method OxyMask 09/09/23 16:00 Oxygen Flow Rate 5 09/09/23 16:00 Medications Administered Medications: Discontinued Medications Generic Name Dose Route Start Last Admin Trade Name Freq PRN Reason Stop Dose Admin Albuterol/Ipratropium 1 neb 09/09/23 13:25 09/09/23 13:40 Iprat-Albut 0.5-2.5 Mg/3 Ml Neb IH 09/09/23 13:26 1 neb ONCE ONE Administration Furosemide 40 mg 09/09/23 17:27 09/09/23 17:50 Furosemide 10 Mg/Ml Inj IVP 09/09/23 17:28 40 mg ONCE ONE Administration Sodium Chloride 1,000 mls @ 1,000 mls/hr 09/09/23 14:42 09/09/23 17:05 0.9 % Sodium Chloride 1000 Ml IV 09/09/23 15:41 Infused .Q1H ONE Infusion Medical Decision Making MDM Narrative Medical decision making narrative: Initial on arrival presenting at 73%. Nasal cannula placed went to 95% on 5 L titrated down to about 3 L at 92% currently. Does not appear to be in respiratory distress otherwise. Differential includes pneumonia, pulmonary embolus, pneumothorax, URI viral, COPD exacerbation, CHF exacerbation. Labs and x-ray pending. Low-dose oxygen via nasal cannula at the moment. Given a DuoNeb. Oxygen saturations now expectedly a little lower but seems reasonably comfortable. Trying to maintain oxygen saturations around 90%. Nebulization seems to have affected symptoms otherwise little. By my read Chest x-ray seems to show some mild cardiomegaly. Diffuse hazy opac ities. See radiology over-read below Hypoxia. CLL. COMPARISON: Portions of a chest CT dated September 04, 2023 TECHNIQUE: A single view of the chest was acquired FINDINGS: TUBES AND LINES: None. HEART AND MEDIASTINUM: Heart size normal. Bilateral hilar and mediastinal lymphadenopathy noted as seen on the chest CT.There has been a sternotomy. LUNGS AND PLEURAL SPACES: Diffuse ground-glass bilaterally. This has significantly worsened since the chest CT. This is most commonly due to a progressive inflammatory process though the appearance is nonspecific.No focal consolidation. Normal pleural spaces. OSSEOUS STRUCTURES: No destructive process of bone IMPRESSION: 1. Significant hilar and mediastinal lymphadenopathy similar to the prior chest CT. Consistent with a history of CLL. 2. Diffuse bilateral ground-glass opacities which have worsened since 09/04/2023. This is usually due to an inflammatory process though the appearance is nonspecific. No focal consolidation. Normal pleural spaces. Is now requiring 3-4 L on oxymask to keep oxygen saturations at 86-88%. D-dimer not surprisingly elevated but in addition due to persistently low oxygen saturations will be sending back for CT angio. Did have chest imaging prior through this ER/hospital but not PE study. Did give normal saline for contrasted imaging. Did discuss this case with hospitalist for admission but unfortunately do not have any beds at this time. Also noted history of hypercalcemia improved with hydration. Looks as though calcium is elevated again today. One might have concern about metastases in this case. ProBNP of uncertain significance at 1370. I did review CT imaging. Shows diffuse areas of opacifications and thickening of pleural lines/septum. See radiology over-read CT chest with 95 mL Isovue 370 IV contrast. COMPARISON: CT chest dated 09/04/2023. FINDINGS: Heart and vasculature: No cardiomegaly, no pericardial effusion. No filling defects identified within the main, lobar, and contrast opacified portions of the segmental pulmonary arteries. Several subsegmental pulmonary arteries are not well evaluated due to motion artifact. Atherosclerotic coronary artery calcifications. Lungs and pleura: No evidence of pulmonary infarct. Diffuse ground-glass opacities superimposed upon septal thickening, significantly increased since prior study. Thyroid and lower neck: No suspicious thyroid nodule. Mediastinum/nury: Bulky mediastinal and bilateral hilar lymphadenopathy. Chest wall: Bilateral axillary lymphadenopathy. Mild anasarca. Upper abdomen: No acute abnormality. Splenomegaly. Retroperitoneal lymphadenopathy. Bones: Multilevel degenerative changes of the spine. No suspicious/aggressive focal osseous lesion. Post median sternotomy. IMPRESSION: 1. No large central pulmonary embolus identified. Subsegmental pulmonary arteries are inadequately evaluated due to motion artifact. 2. Diffuse ground-glass opacities superimposed upon septal thickening, significantly increased/worsened since prior study. This may reflect diffuse infectious process, pulmonary edema, and/or acute respiratory distress syndrome. 3. Bulky lymphadenopathy in the chest and upper abdomen, compatible with history of CLL. Will be initiating diuresis with furosemide at this point. Might benefit from steroid but does not appear to be a COPD exacerbation. May have undiagnosed CHF. Seems less likely to be infectious etiology. Unclear inflammatory process? Related to CLL? There is some question as to similar image findings on admission last time to this facility. Has been recommended for bronchoscopy which we can not do this facility. On reassessment still requires oxygen support but color is improved she seems more alert, quickly conversant, more energetic. Given recommendations for next steps in care related to pulmonary evaluation, bronchoscopy, we continue to look for beds elsewhere. Would need cardiac evaluation least in the form of an echocardiogram. Pending call backs and availability elsewhere, anticipate admission here. Handing off at change of shift. Lab Data Lab results reviewed: Yes I reviewed the patient's lab results Labs: Lab Results 09/09/23 09/09/23 09/09/23 Range/Units 12:45 12:45 12:58 WBC 97.51 H* (4.50-11.00) K/uL RBC 3.69 L (4.00-5.20) m/uL Hgb 11.0 L (12.0-16.0) gm/dL Hct 35.3 (33.0-51.0) % MCV 96 (80-100) fL MCH 30 (26-34) pg MCHC 31 L (32-36) gm/dL RDW Coeff of Shabana 18.3 H (11.5-15.5) % Plt Count 370 (140-440) K/uL Neut % (Auto) 5.1 L (42.0-72.0) % Lymph % (Auto) 87.1 H (20-44) % Porter % (Auto) 6.0 (0.0-11.0) % Eos % (Auto) 0.5 (0.0-7.0) % Baso % (Auto) 0.2 (0.0-3.0) % Neut # (Auto) 5.00 (1.7-7.0) K/uL Lymph # (Auto) 84.90 H (0.90-2.90) K/uL Porter # (Auto) 5.90 H (0.00-0.90) K/UL Eos # (Auto) 0.50 (0.00-0.50) K/uL Baso # (Auto) 0.20 (0.00-0.30) K/uL Abs Immat Gran (auto) 1.10 H (0.00-0.30) K/uL Imm/Tot Granulo (auto) 1.1 % Diff Slide Review Acceptable Review (Acceptable) D-Dimer Quant (PE/DVT) 4.93 H (0.00-0.50) ug/ml VBG pH 7.482 H (7.32-7.43) VBG pCO2 32 L (40-50) mmHG VBG pO2 50.6 H (25-47) mmHG VBG HCO3 24 (21-28) mmol/L Sodium 135 (135-149) mmol/L Potassium 4.0 (3.6-5.1) mmol/L Chloride 103 (96-114) mmol/L Carbon Dioxide 22 (20-32) mmol/L Anion Gap 10 (7-15) mEq/L BUN 39 H (7-30) mg/dL Creatinine 1.2 (0.5-1.5) mg/dL Estimated Creat Clear 43.17 Estimated GFR 50 ml/min Glucose 120 H (60-115) mg/dL Lactate 2.1 H (0.5-1.9) mmol/L Calcium 11.5 H (8.4-10.6) mg/dL C-Reactive Protein 5.4 H (0.5-1.0) mg/dL NT-Pro-B Natriuret Pep 1370 Cancelled pg/mL SARS-CoV-2 (PCR) Negative SARS-CoV-2 (Negative) Influenza Type A (PCR) Negative PCR FLU A (Negative) Influenza Type B (PCR) Negative PCR FLU B (Negative) RSV (PCR) Negative PCR RSV (Negative) Lab Acknowledgement Test Added POC Troponin I 0.00 L (0.01-0.04) ng/ml 09/09/23 Range/Units 12:58 WBC (4.50-11.00) K/uL RBC (4.00-5.20) m/uL Hgb (12.0-16.0) gm/dL Hct (33.0-51.0) % MCV (80-100) fL MCH (26-34) pg MCHC (32-36) gm/dL RDW Coeff of Shabana (11.5-15.5) % Plt Count (140-440) K/uL Neut % (Auto) (42.0-72.0) % Lymph % (Auto) (20-44) % Porter % (Auto) (0.0-11.0) % Eos % (Auto) (0.0-7.0) % Baso % (Auto) (0.0-3.0) % Neut # (Auto) (1.7-7.0) K/uL Lymph # (Auto) (0.90-2.90) K/uL Porter # (Auto) (0.00-0.90) K/UL Eos # (Auto) (0.00-0.50) K/uL Baso # (Auto) (0.00-0.30) K/uL Abs Immat Gran (auto) (0.00-0.30) K/uL Imm/Tot Granulo (auto) % Diff Slide Review (Acceptable) D-Dimer Quant (PE/DVT) (0.00-0.50) ug/ml VBG pH (7.32-7.43) VBG pCO2 (40-50) mmHG VBG pO2 (25-47) mmHG VBG HCO3 (21-28) mmol/L Sodium (135-149) mmol/L Potassium (3.6-5.1) mmol/L Chloride (96-114) mmol/L Carbon Dioxide (20-32) mmol/L Anion Gap (7-15) mEq/L BUN (7-30) mg/dL Creatinine (0.5-1.5) mg/dL Estimated Creat Clear Estimated GFR ml/min Glucose (60-115) mg/dL Lactate (0.5-1.9) mmol/L Calcium (8.4-10.6) mg/dL C-Reactive Protein (0.5-1.0) mg/dL NT-Pro-B Natriuret Pep pg/mL SARS-CoV-2 (PCR) (Negative) Influenza Type A (PCR) (Negative) Influenza Type B (PCR) (Negative) RSV (PCR) (Negative) Lab Acknowledgement Test Added POC Troponin I (0.01-0.04) ng/ml ECG Data Attestation: I personally reviewed and interpreted this ECG as follows: (EKG showing sinus rhythm though with sinus arrhythmia. Looks like some PVCs. Rate of 92 approximately.) Discharge Plan Discharge Clinical Impression: Respiratory failure Prescriptions: No Action aspirin 81 mg tablet,delayed release (DR/EC) 81 mg PO DAILY ascorbic acid (vitamin C) 500 mg tablet 500 mg PO DAILY cholecalciferol (vitamin D3) 25 mcg (1,000 unit) capsule 25 mcg PO BID albuterol sulfate 2.5 mg /3 mL (0.083 %) solution for nebulization 2.5 mg inhalation Q4H PRN fexofenadine [Rosangela Allergy] 180 mg tablet 180 mg PO DAILY magnesium oxide 400 mg (241.3 mg magnesium) Tablet 400 mg PO DAILY Qty: 30 0RF atorvastatin 40 mg tablet 40 mg PO HS metoprolol succinate 100 mg tablet extended release 24 hr 100 mg PO DAILY lisinopril 40 mg tablet 20 mg PO DAILY albuterol sulfate 90 mcg/actuation HFA aerosol inhaler 2 puff inhalation Q4H PRN (Reason: shortness of breath or wheezing) Qty: 25.5 1RF nitroglycerin 0.4 mg tablet, sublingual 0.4 mg sublingual Q5-15M PRN (Reason: chest pain) Qty: 30 0RF Rx Instructions: PRN CHEST PAIN Follow Up/Referrals: Katerine Bashir MD [Primary Care Provider] -
--- NOTE | 2023-09-09 12:20 | CRLHL7_ITS ---
For Patients: As a result of the Cures Act, medical imaging exams and procedure reports are released immediately into your electronic medical record. You may view this report before your referring provider. If you have questions, please contact your health care provider. INDICATION: Hypoxia. CLL. COMPARISON: Portions of a chest CT dated September 04, 2023 TECHNIQUE: A single view of the chest was acquired FINDINGS: TUBES AND LINES: None. HEART AND MEDIASTINUM: Heart size normal. Bilateral hilar and mediastinal lymphadenopathy noted as seen on the chest CT.There has been a sternotomy. LUNGS AND PLEURAL SPACES: Diffuse ground-glass bilaterally. This has significantly worsened since the chest CT. This is most commonly due to a progressive inflammatory process though the appearance is nonspecific.No focal consolidation. Normal pleural spaces. OSSEOUS STRUCTURES: No destructive process of bone IMPRESSION: 1. Significant hilar and mediastinal lymphadenopathy similar to the prior chest CT. Consistent with a history of CLL. 2. Diffuse bilateral ground-glass opacities which have worsened since 09/04/2023. This is usually due to an inflammatory process though the appearance is nonspecific. No focal consolidation. Normal pleural spaces. Dictated by Maxim Fernandez MD @ 09/09/2023 1:19:00 PM (Electronically Signed)
[2023-09-09 13:01] LABS: HCO3 VBG 24 mmol/L (21-28); Lactate* 2.1 mmol/L (0.5-1.9); PCO2 VBG 32 mmHG (40-50); PO2 VBG 50.6 mmHG (25-47); pH VBG 7.482 (7.32-7.43)
[2023-09-09 13:02] LABS: Basophils Percent Auto 0.2 % (0.0-3.0); Eosinophils Percent Auto 0.5 % (0.0-7.0); Hematocrit 35.3 % (33.0-51.0); Immature Granulocytes Pct Auto 1.1 %; Lymphocytes Percent Auto 87.1 % (20-44); Mean Corpuscular HGB Conc 31 gm/dL (32-36); Mean Corpuscular Hemoglobin 30 pg (26-34); Mean Corpuscular Volume 96 fL (80-100); Neutrophils Percent Auto 5.1 % (42.0-72.0); Platelet Count* 370 K/uL (140-440); RDW Coefficient of Variation % 18.3 % (11.5-15.5); Red Blood Count 3.69 m/uL (4.00-5.20)
--- NOTE | 2023-09-09 13:08 | RESP.RT ---
Pt seen. She is hypoxic. On 8L oxymask, for a saturation of 93% BBS are basically clear, with good aeration. Pt. states she has phelgm in her throat. She has a strong dry [employer] cough. CXR done, ground glass apperance. Will consider High Flow [facility] if admitted and it is indicated. She states she has an albuterol inhaler at home, but it does not work.
[2023-09-09 13:20] LABS: Chloride* 103 mmol/L (96-114)
[2023-09-09 13:21] LABS: Sodium* 135 mmol/L (135-149)
[2023-09-09 13:23] LABS: Creatinine* 1.2 mg/dL (0.5-1.5); Est. Creatinine Clearance* 43.17; Estimated Glomerular Filt Rate 50 ml/min
[2023-09-09 13:24] LABS: Anion Gap 10 mEq/L (7-15); Blood Urea Nitrogen* 39 mg/dL (7-30); Calcium* 11.5 mg/dL (8.4-10.6); Carbon Dioxide* 22 mmol/L (20-32); Glucose* 120 mg/dL (60-115)
[2023-09-09 13:27] LABS: C Reactive Protein* 5.4 mg/dL (0.5-1.0)
[2023-09-09 13:33] LABS: NT Pro B Type NatriureticPept* 1370 pg/mL
[2023-09-09 13:35] LABS: Slide Review Reflex Yes; White Blood Count* 97.51 K/uL (4.50-11.00)
[2023-09-09 13:36] LABS: Slide Review Acceptable Review (Acceptable)
[2023-09-09 13:39] LABS: D Dimer Quantitative* 4.93 ug/ml (0.00-0.50)
[2023-09-09] MEDS: IPRAT-ALBUT 0.5-2.5 MG/3 ML NEB 1 NEB IH (13:40)
[2023-09-09 13:42] LABS: PCR FLU A Negative PCR FLU A (Negative); PCR FLU B Negative PCR FLU B (Negative); PCR RSV Negative PCR RSV (Negative)
[2023-09-09 14:01] LABS: SARS PCR* Negative SARS-CoV-2 (Negative)
--- NOTE | 2023-09-09 14:42 | CRLHL7_ITS ---
For Patients: As a result of the Century Cures Act, medical imaging exams and procedure reports are released immediately into your electronic medical record. You may view this report before your referring provider. If you have questions, please contact your health care provider. INDICATION: Respiratory failure, elevated D-dimer. History of CLL. TECHNIQUE: CT chest with 95 mL Isovue 370 IV contrast. COMPARISON: CT chest dated 09/04/2023. FINDINGS: Heart and vasculature: No cardiomegaly, no pericardial effusion. No filling defects identified within the main, lobar, and contrast opacified portions of the segmental pulmonary arteries. Several subsegmental pulmonary arteries are not well evaluated due to motion artifact. Atherosclerotic coronary artery calcifications. Lungs and pleura: No evidence of pulmonary infarct. Diffuse ground-glass opacities superimposed upon septal thickening, significantly increased since prior study. Thyroid and lower neck: No suspicious thyroid nodule. Mediastinum/nury: Bulky mediastinal and bilateral hilar lymphadenopathy. Chest wall: Bilateral axillary lymphadenopathy. Mild anasarca. Upper abdomen: No acute abnormality. Splenomegaly. Retroperitoneal lymphadenopathy. Bones: Multilevel degenerative changes of the spine. No suspicious/aggressive focal osseous lesion. Post median sternotomy. IMPRESSION: 1. No large central pulmonary embolus identified. Subsegmental pulmonary arteries are inadequately evaluated due to motion artifact. 2. Diffuse ground-glass opacities superimposed upon septal thickening, significantly increased/worsened since prior study. This may reflect diffuse infectious process, pulmonary edema, and/or acute respiratory distress syndrome. 3. Bulky lymphadenopathy in the chest and upper abdomen, compatible with history of CLL. Please note that all CT scans at this facility use dose modulation, iterative reconstruction, and/or weight-based dosing when appropriate to reduce radiation dose to as low as reasonably achievable. Dictated by Lisa Acuña MD @ 09/09/2023 4:59:49 PM (Electronically Signed)
[2023-09-09] MEDS: 0.9 % SODIUM CHLORIDE 1000 ml 1,000 ML IV (15:23)
[2023-09-09] MEDS: FUROSEMIDE 10 MG/ML inj 40 MG IVP (17:50)
[2023-09-09 18:47] LABS: Albumin* 3.3 g/dL (3.3-5.0)
[2023-09-09 18:50] LABS: Alanine Aminotransferase* 34 U/L (4-35); Alkaline Phosphatase* 99 U/L (40-150); Aspartate Amino Transferase* 55 U/L (12-35); Bilirubin Direct* 0.3 mg/dL (0.0-0.5); Bilirubin Total* 1.7 mg/dL (0.1-1.5); Magnesium* 1.9 mg/dL (1.5-2.6); Total Protein* 5.8 g/dL (6.0-8.3)
--- NOTE | 2023-09-09 19:02 | ED.NURSE ---
Pt report given off to oncoming RN
--- NOTE | 2023-09-09 20:05 | PM.IMHP1 ---
Hospitalist- H&P: HPI History of Present Illness Date Seen: 09/09/23 Chief complaint: From [facility] Narrative: Alexandra Dixon is a 68 year old female admitted with hypoxic respiratory failure. Hypoxia was incidentally found on visit to the [facility] clinic. She does note that she has had progressive exertional dyspnea. Patient was admitted to [facility] from August 30 to September 02 2023 for evaluation treatment of hypercalcemia and acute kidney injury. During that hospital stay her calcium improved from 12.7-10.6 with hydration with normal saline alone. She did not have any respiratory distress or hypoxia during that hospital stay. Labs obtained during that admission but resulted after discharge included an appropriately suppressed PTH hormone, low PTHrP, elevated 1, 25 dihydroxy vitamin-D and 25 hydroxy vitamin-D levels. She does take vitamin D supplements. Other issues identified during that hospital stay included patient reporting a loss of taste and loss of weight. Records indicate 16 kg weight loss in 2 months prior to admission. She reports her taste and appetite are a little better in the past few days but still not good. She had acute kidney injury with creatinine of 2.1 on previous admission then down to 1.0 on discharge. This was thought secondary to dehydration and hypercalcemia primarily. Medications were changed at discharge including: discontinuing metformin due to concern it might be causing some GI symptoms and affecting her appetite, discontinuing methotrexate due to abnormal lab tests including elevated liver enzymes, gastrointestinal symptoms and pulmonary disease, discontinuing hydrochlorothiazide due to hypercalcemia. 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 CT scan did not show obvious worsening of lymphadenopathy. She had follow-up in the oncology clinic today. She has no previous history of pulmonary disease. No history of heart failure. She has diabetes mellitus for which he was on metformin. With her weight loss this appears to be relatively well controlled without metformin. Last January she was diagnosed with bullous pemphigoid. She has been treated with methotrexate 20 mg weekly for this until last week. Review of Systems Narrative: Her exertional dyspnea is getting a little worse. Other symptoms reported on her last admission including loss of taste, anorexia, fatigue and weakness all are slightly better. [facility] Medical History (Updated 09/09/23 @ 20:36 by Anderson Saxena MD) Pulmonary infiltrates ?R91.8 - Other nonspecific abnormal finding of lung field (ICD-10) Polypharmacy ?Z79.899 - Other [facility] (current) drug therapy (ICD-10) Diarrhea ?R19.7 - Diarrhea, unspecified (ICD-10) No appetite ?R63.0 - Anorexia (ICD-10) Bullous pemphigoid (~12/2022) ?L12.0 - Bullous pemphigoid (ICD-10) Splenomegaly (07/2022) ?R16.1 - Splenomegaly, not elsewhere classified (ICD-10) Elevated liver transaminase level ?R74.01 - Elevation of levels of liver transaminase levels (ICD-10) Ventricular bigeminy (2018) ?I49.8 - Other specified cardiac arrhythmias (ICD-10) History of bone density study (03/2023) ?Z92.89 - Personal history of other medical treatment (ICD-10) Vitamin D deficiency ?E55.9 - Vitamin D deficiency, unspecified (ICD-10) Dyslipidemia ?E78.5 - Hyperlipidemia, unspecified (ICD-10) Lymphoma, small lymphocytic (2018) ?C83.00 - Small cell B-cell lymphoma, unspecified site (ICD-10) No retinopathy on exam (03/2021) ?Z01.00 - Encounter for examination of eyes and vision without abnormal findings (ICD-10) Microalbuminuria due to type 2 diabetes mellitus ?E11.29 - Type 2 diabetes mellitus with other diabetic kidney complication (ICD-10) ?R80.9 - Proteinuria, unspecified (ICD-10) Hypertension ?I10 - Essential (primary) hypertension (ICD-10) History of myocardial infarction (11/21/15) ?I25.2 - Old myocardial infarction (ICD-10) History of malignant neoplasm of skin ?Z85.828 - Personal history of other malignant neoplasm of skin (ICD-10) Frequent ventricular premature beats ?I49.3 - Ventricular premature depolarization (ICD-10) Coronary artery disease (2000) ?I25.10 - Atherosclerotic heart disease of [place] coronary artery without angina pectoris (ICD-10) Surgical History History of four vessel coronary artery bypass graft (2000) ?Z95.1 - Presence of aortocoronary bypass graft (ICD-10) History of coronary artery stent placement (11/21/15) ?Z95.5 - Presence of coronary angioplasty implant and graft (ICD-10) Family History Father Stroke, Onset Age: 70 Prostate cancer Mother Diabetes Myocardial infarction, Onset Age: 65 Daughter Stroke, Onset Age: 36 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: , 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, 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 SMOKER: Tobacco abuse- 10/day, 32 pack years~ resolved 01/16 Does not exercise- active in garden and yard Social drinker- 2/week Past problems: Non-smoker- quit 2000, hx 30 pack years What is your current living situation?: I presently have a place to live Problems where you live: pests, such as bugs, ants, or mice Problems where you live details: occasional ants in wintertime In the past 12 months, utilities in danger of being shut off: no In past 12 months, lack of transportation kept you from medical appts, meetings, work, or getting things needed for daily living: no In the past 12 mos, have been you worried that your food would run out before you had money to buy more?: never true In the past 12 mos, the food you bought just didn't last and you didn't have money to buy more?: never true Highest level of school completed/degree received: some college, no degree Smoking Status: Former smoker Do you use any of these nicotine containing products: None Second hand tobacco smoke exposure: No How often do you have a drink containing alcohol: never How often do you have six or more drinks on one occasion: Never AUDIT-C Alcohol total score: 0 Non-prescribed substance use: denies use Caffeine: No (none last couple weeks) How often does anyone, including family, friends and others, physically hurt you: never How often does anyone, including family, friends and others, insult or talk down to you: never How often does anyone, including family, friends and others, threaten you with harm: never How often does anyone, including family, friends and others, scream or curse at you: never Little interest or pleasure in doing things: several days Feeling down, depressed, or hopeless: not at all service: No Meds Home Medications and Allergies Home Medications Medication Instructions Recorded Confirmed Type aspirin 81 mg tablet,delayed 81 mg PO DAILY 04/26/22 09/09/23 History release albuterol sulfate 2.5 mg/3 mL 2.5 mg inhalation Q4H PRN 11/19/22 09/09/23 History (0.083 %) solution for nebulization cholecalciferol (vitamin D3) 25 25 mcg PO BID 11/19/22 09/09/23 History mcg (1,000 unit) capsule ascorbic acid (vitamin C) 500 mg 500 mg PO DAILY 01/23/23 09/09/23 History tablet fexofenadine 180 mg tablet 180 mg PO DAILY 01/23/23 09/09/23 History (Rosangela Allergy) atorvastatin 40 mg tablet 40 mg PO HS 09/09/23 09/09/23 History lisinopril 40 mg tablet 20 mg PO DAILY 09/09/23 09/09/23 History metoprolol succinate 100 mg 100 mg PO DAILY 09/09/23 09/09/23 History tablet,extended release 24 hr Allergies Allergy/AdvReac Type Severity Reaction Status Date / Time dunbar saul Allergy Intermediate Blisters/it Uncoded 09/09/23 16:03 [email or web address] Exam Narrative: Exam Narrative: She is alert and appears in no distress. She is breathing oxygen through an OxyMask with O2 sats around 90%. Eyes normal. Oropharynx is normal. Neck is supple without mass or adenopathy. No stridor. Respirations with occasional fine basilar crackles but otherwise clear to auscultation. She does have diminished breath sounds. Cardiovascular: S1, S2, regular rate and rhythm. Frequent premature beats. Abdomen is soft without tenderness or mass. Bowel sounds are present. Extremities with no edema. Intact pedal pulses. Skin is without rash. Const: Vital Signs, click to edit/add: Vital Signs - 24 hr 09/09/23 11:54 09/09/23 12:03 09/09/23 12:15 Temperature 98.2 F Pulse Rate 50 L 49 L Pulse Rate [Pulse Oximeter] 56 L Respiratory Rate 20 Blood Pressure Blood Pressure [Le ft Upper Arm] 137/57 L Pulse Oximetry 73 L 90 83 L Oxygen Delivery Me thod Room Air Oxygen Flow Rate 09/09/23 12:30 09/09/23 12:45 09/09/23 12:58 Temperature Pulse Rate 49 L 49 L Pulse Rate [Pulse Oximeter] Respiratory Rate Blood Pressure Blood Pressure [Le ft Upper Arm] Pulse Oximetry 86 L 89 93 Oxygen Delivery Me thod Nasal Cannula Nasal Cannula Oxygen Flow Rate 3 3 09/09/23 13:00 09/09/23 13:15 09/09/23 13:30 Temperature Pulse Rate 46 L 48 L 52 L Pulse Rate [Pulse Oximeter] Respiratory Rate Blood Pressure Blood Pressure [Le ft Upper Arm] Pulse Oximetry 93 94 96 Oxygen Delivery Me thod OxyMask OxyMask OxyMask Oxygen Flow Rate 3 4 4 09/09/23 13:45 09/09/23 14:00 09/09/23 14:03 Temperature Pulse Rate 48 L 62 49 L Pulse Rate [Pulse Oximeter] Respiratory Rate Blood Pressure 128/65 Blood Pressure [Le ft Upper Arm] Pulse Oximetry 93 88 91 Oxygen Delivery Me thod OxyMask OxyMask OxyMask Oxygen Flow Rate 4 4 4 09/09/23 14:04 09/09/23 14:16 09/09/23 14:30 Temperature Pulse Rate 48 L 75 54 L Pulse Rate [Pulse Oximeter] Respiratory Rate Blood Pressure Blood Pressure [Le ft Upper Arm] Pulse Oximetry 92 83 L 89 Oxygen Delivery Me thod OxyMask OxyMask OxyMask Oxygen Flow Rate 4 4 4 09/09/23 14:42 09/09/23 14:45 09/09/23 15:00 Temperature Pulse Rate 60 49 L Pulse Rate [Pulse Oximeter] Respiratory Rate 26 H Blood Pressure Blood Pressure [Le ft Upper Arm] Pulse Oximetry 88 87 L 87 L Oxygen Delivery Me thod OxyMask OxyMask OxyMask Oxygen Flow Rate 5 5 5 09/09/23 15:15 09/09/23 15:30 09/09/23 15:55 Temperature Pulse Rate 95 85 89 Pulse Rate [Pulse Oximeter] Respiratory Rate Blood Pressure Blood Pressure [Le ft Upper Arm] Pulse Oximetry 85 L 86 L 89 Oxygen Delivery Me thod OxyMask OxyMask OxyMask Oxygen Flow Rate 5 5 5 09/09/23 15:59 09/09/23 16:00 09/09/23 16:15 Temperature Pulse Rate 78 82 91 Pulse Rate [Pulse Oximeter] Respiratory Rate Blood Pressure 114/66 Blood Pressure [Le ft Upper Arm] Pulse Oximetry 93 94 92 Oxygen Delivery Me thod OxyMask OxyMask OxyMask Oxygen Flow Rate 5 5 5 09/09/23 16:30 09/09/23 16:45 09/09/23 17:00 Temperature Pulse Rate 96 86 93 Pulse Rate [Pulse Oximeter] Respiratory Rate Blood Pressure Blood Pressure [Le ft Upper Arm] Pulse Oximetry 92 93 93 Oxygen Delivery Me thod OxyMask OxyMask OxyMask Oxygen Flow Rate 5 5 5 09/09/23 17:15 09/09/23 17:30 09/09/23 17:45 Temperature Pulse Rate 92 81 80 Pulse Rate [Pulse Oximeter] Respiratory Rate Blood Pressure Blood Pressure [Le ft Upper Arm] Pulse Oximetry 92 96 78 L Oxygen Delivery Me thod OxyMask OxyMask OxyMask Oxygen Flow Rate 5 5 5 09/09/23 18:00 09/09/23 18:15 09/09/23 18:30 Temperature Pulse Rate 84 106 H 88 Pulse Rate [Pulse Oximeter] Respiratory Rate Blood Pressure Blood Pressure [Le ft Upper Arm] Pulse Oximetry 91 64 L 87 L Oxygen Delivery Me thod OxyMask OxyMask OxyMask Oxygen Flow Rate 5 5 5 09/09/23 18:45 09/09/23 19:18 Temperature Pulse Rate 89 Pulse Rate [Pulse Oximeter] Respiratory Rate 22 Blood Pressure Blood Pressure [Le ft Upper Arm] Pulse Oximetry 86 L 89 Oxygen Delivery Me thod OxyMask OxyMask Oxygen Flow Rate 5 5 Documenting provider has reviewed patient's vital signs: yes Hospitalist - H&P: Result Labs Labs: Short CBC 09/09/23 Range/Units 12:45 WBC 97.51 H* (4.50-11.00) K/uL Hgb 11.0 L (12.0-16.0) gm/dL Hct 35.3 (33.0-51.0) % Plt Count 370 (140-440) K/uL BMP 09/09/23 12:45 Sodium 135 Potassium 4.0 Chloride 103 Carbon Dioxide 22 BUN 39 H Creatinine 1.2 Glucose 120 H Calcium 11.5 H Liver Function 09/09/23 Range/Units 12:45 Total Bilirubin 1.7 H (0.1-1.5) mg/dL Direct Bilirubin 0.3 (0.0-0.5) mg/dL AST 55 H (12-35) U/L ALT 34 (4-35) U/L Alkaline Phosphatase 99 (40-150) U/L Albumin 3.3 (3.3-5.0) g/dL Imaging CT scan - chest: Radiologist's impression: INDICATION: Respiratory failure, elevated D-dimer. History of CLL. TECHNIQUE: CT chest with 95 mL Isovue 370 IV contrast. COMPARISON: CT chest dated 09/04/2023. FINDINGS: Heart and vasculature: No cardiomegaly, no pericardial effusion. No filling defects identified within the main, lobar, and contrast opacified portions of the segmental pulmonary arteries. Several subsegmental pulmonary arteries are not well evaluated due to motion artifact. Atherosclerotic coronary artery calcifications. Lungs and pleura: No evidence of pulmonary infarct. Diffuse ground-glass opacities superimposed upon septal thickening, significantly increased since prior study. Thyroid and lower neck: No suspicious thyroid nodule. Mediastinum/nury: Bulky mediastinal and bilateral hilar lymphadenopathy. Chest wall: Bilateral axillary lymphadenopathy. Mild anasarca. Upper abdomen: No acute abnormality. Splenomegaly. Retroperitoneal lymphadenopathy. Bones: Multilevel degenerative changes of the spine. No suspicious/aggressive focal osseous lesion. Post median sternotomy. IMPRESSION: 1. No large central pulmonary embolus identified. Subsegmental pulmonary arteries are inadequately evaluated due to motion artifact. 2. Diffuse ground-glass opacities superimposed upon septal thickening, significantly increased/worsened since prior study. This may reflect diffuse infectious process, pulmonary edema, and/or acute respiratory distress syndrome. 3. Bulky lymphadenopathy in the chest and upper abdomen, compatible with history of CLL. Assessment and Plan Assessment and plan (1) Respiratory failure: Problem comment: Cause of this is unclear. Likely related to ground-glass pulmonary infiltrates. Status: Acute (2) Pulmonary infiltrates: Problem comment: Ground-glass infiltrates identified on CT scan of the chest. Worse today than they were 5 days ago. Cause is uncertain. Heart failure verses infection verses infiltrate or medication toxicity. Infiltrates were present 1 week ago when she was admitted with dehydration making heart failure less likely. Status: Acute (3) Hypercalcemia: Problem comment: Hypercalcemia 1 week ago with a calcium of 12.7. With normal saline hydration dropped to 10.6. Now back up to 11.5. Stop vitamin-D supplementation. Start zoledronic acid Status: Acute (4) Weight loss, abnormal: Problem comment: 16 kg weight loss in 2 months. she was able to maintain her nutrition but noted a poor appetite in the hospital. Possibly modestly improved in last week Status: Acute (5) Elevated liver transaminase level: Problem comment: Mild elevations of AST and bili, 1.7. Status: Acute (6) Hypomagnesemia: Problem comment: Probably related to hypercalcemia. Oral replacement has corrected this Status: Acute (7) Weakness: Problem comment: patient reported generalized weakness. This is thought likely related to multiple other medical problems, dehydration, nutrition Status: Acute (8) Lymphoma, small lymphocytic: Problem comment: Had follow-up with Oncology today for CLL/SLL management. Not currently receiving treatment. Status: Chronic (9) History of myocardial infarction: Problem comment: NSTEMI 2016 w/ stent placement w/ area of fixed infarction. Status: Resolved (10) Frequent ventricular premature beats: Problem comment: Per 02/26/19 [facility] note. Planning Holter fine, metoprolol increased Status: Chronic (11) Type 2 diabetes mellitus: Problem comment: Appears to be fairly well controlled even off metformin Status: Acute (12) Hypertension: Problem comment: Well controlled off hydrochlorothiazide Status: Chronic (13) Chronic obstructive pulmonary disease: Problem comment: GOLD C suspected by [place] tile [employer]re[employer], Not using Anoro Ellipta , cannot afford Status: Chronic Plan 68-year-old female with recent hospitalization for hypercalcemia now with hypoxic respiratory failure associated with ground-glass pulmonary infiltrates. Patient would likely benefit from pulmonary consultation and bronchoscopy to diagnosed her current problem. Attempts to transfer the patient so far have been unsuccessful. She will be admitted in [facility] pending available bed at tertiary facility with pulmonary and other specialty consultations. Total time spent today is 90 minutes, 60 minutes in coordination of care discussing with patient and other providers ongoing evaluation and management of hypoxia and hypercalcemia.
--- NOTE | 2023-09-09 20:10 | PC.NURSE ---
report given to Tierra SMILEY on medsurg, patient going to room 249
[2023-09-09 20:24] LABS: Procalcitonin* 0.09 ng/mL (<0.50)
[2023-09-09] MEDS: ATORVASTATIN CALCIUM 40 MG TABLET PO (22:12)
[2023-09-09] MEDS: SODIUM CHLORIDE 0.9 % (FLUSH) 10 ML SYRINGE 5 ML IVF (22:13)
[2023-09-09] MEDS: ENOXAPARIN 40 MG/0.4 ML INJ SUBCUT (22:13)
[2023-09-09] MEDS: ZOLEDRONIC ACID 4 MG in 0.9 % SODIUM CHLORIDE 100 ml 100 ML 420 MG IVPB (22:35)
[2023-09-10] VITALS (19 sets, daily range): BP systolic 90–121; BP diastolic 33–56; PULSE 64–101; RESP 20–22; TEMP 36.2–36.9; O2SAT 90–94; BMI 25.9
[2023-09-10] MEDS: AZITHROMYCIN 250 MG TABLET 500 MG PO ×2 (00:54→23:50)
[2023-09-10] MEDS: PIPERACILLIN/TAZOBACTAM 3.375 GM in 0.9 % SODIUM CHLORIDE Mini-bag 100 ML IVPB ×4 (00:55→19:16)
[2023-09-10 06:44] LABS: HCO3 VBG 28 mmol/L (21-28); PCO2 VBG 44 mmHG (40-50); PO2 VBG 27.7 mmHG (25-47); pH VBG 7.412 (7.32-7.43)
--- NOTE | 2023-09-10 06:44 | PC.NURSE ---
End of shift report: Patient admitted to floor at 2026 with diagnosis of respiratory failure. Oxygen on at 5L per oxymask, O2 sats maintained >90% until 2329 where patient O2 dropped to 78%, oxygen increased to 10 L and patient unable to maintain O2 sats >84%. Dr. Saxena updated, new orders for high flow, start at 30/50 and titrate as needed to keep sats at 90% or higher. Titrated to 30/55 and sats maintaining at 90%. Patient tolerating Hi flow without issues, skin remains intact. Alert and oriented x 4, denies any pain. Reports shortness of breath with exertion, denies any cough or dyspnea. Transfers with [facility] to [facility]. Awaiting call regarding bed availability at [place] for ICU bed.?
[2023-09-10 06:53] LABS: Basophils Percent Auto 0.2 % (0.0-3.0); Eosinophils Percent Auto 1.6 % (0.0-7.0); Hematocrit 32.8 % (33.0-51.0); Hemoglobin* 10.1 gm/dL (12.0-16.0); Immature Granulocytes Pct Auto 1.6 %; Lymphocytes Percent Auto 86.2 % (20-44); Mean Corpuscular HGB Conc 31 gm/dL (32-36); Mean Corpuscular Hemoglobin 30 pg (26-34); Mean Corpuscular Volume 97 fL (80-100); Monocytes Percent Auto 5.6 % (0.0-11.0); Neutrophils Percent Auto 4.8 % (42.0-72.0); Platelet Count* 327 K/uL (140-440); RDW Coefficient of Variation % 18.2 % (11.5-15.5); Red Blood Count 3.39 m/uL (4.00-5.20)
[2023-09-10 07:17] LABS: Chloride* 102 mmol/L (96-114); Sodium* 134 mmol/L (135-149)
[2023-09-10 07:20] LABS: Anion Gap 5 mEq/L (7-15); Blood Urea Nitrogen* 37 mg/dL (7-30); Carbon Dioxide* 27 mmol/L (20-32); Creatinine* 1.1 mg/dL (0.5-1.5); Estimated Glomerular Filt Rate 55 ml/min
[2023-09-10 07:21] LABS: Calcium* 10.7 mg/dL (8.4-10.6); Glucose* 115 mg/dL (60-115); Phosphorus* 3.6 mg/dL (2.5-4.5)
[2023-09-10 07:28] LABS: Slide Review Reflex Yes; White Blood Count* 66.57 K/uL (4.50-11.00)
[2023-09-10 07:29] LABS: Slide Review Acceptable Review (Acceptable)
--- NOTE | 2023-09-10 09:25 | RESP.RT ---
Patient on HFNC 30 lpm 50% saturation 90-93%.
[2023-09-10] MEDS: METOPROLOL SUCCINATE (XL) 100 MG TAB PO (09:29)
[2023-09-10] MEDS: ASCORBIC ACID 500 MG TABLET PO (09:29)
[2023-09-10] MEDS: MAGNESIUM OXIDE 400 MG TABLET PO (09:29)
[2023-09-10] MEDS: SODIUM CHLORIDE 0.9 % (FLUSH) 10 ML SYRINGE 5 ML IVF ×2 (09:30→20:56)
[2023-09-10] MEDS: ASPIRIN 81 MG TABLET EC PO (09:30)
[2023-09-10] MEDS: FEXOFENADINE 180 MG TABLET PO (09:32)
[2023-09-10] MEDS: lisinopriL 20 MG TABLET PO (09:33)
--- NOTE | 2023-09-10 14:52 | P.IMPN_ITS ---
Progress Note: A&P Assessment and plan (1) Respiratory failure: Problem details: -Cause of this is unclear. Likely related to ground-glass pulmonary infiltrates. -continue oxygen supplementation to maintain saturations 88-92%, weaning as able -albuterol nebs p.r.n., oral magnesium, empiric antibiotic therapy for infiltrates -echocardiogram ordered -09/10: Discussed with Dr. Marcum, Critical Care at [facility], has accepted to pcu bed, awaiting bed availability, no wait time available. 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 Worse today than they were 5 days ago. Cause is uncertain. Heart failure verses infection verses infiltrate or medication toxicity. Infiltrates were present 1 week ago when she was admitted with dehydration making heart failure less likely. -continue empiric azithromycin, Zosyn. Received 1 dose vancomycin. P rocalcitonin 0.09 -transfer for Pulmonology evaluation Status: Acute (4) Hypercalcemia: Problem details: Hypercalcemia 1 week ago with a calcium of 12.7. With normal saline hydration dropped to 10.6. Now back up to 11.5. Stop vitamin-D supplementation. Start zoledronic acid -Calcium 10.7, near baseline Status: Acute (5) Weight loss, abnormal: Problem details: 16 kg weight loss in 2 months. she was able to maintain her nutrition but noted a poor appetite in the hospital. Possibly modestly improved in last week -in setting of unknown acute illness Status: Acute (6) Elevated liver transaminase level: Problem details: Mild elevations of AST and bili, 1.7. -recheck LFTs in the morning Status: Acute (7) Hypomagnesemia: Problem details: Probably related to hypercalcemia. Oral replacement has corrected this Status: Acute (8) Weakness: Problem details: patient reported generalized weakness. This is thought likely related to multiple other medical problems, dehydration, nutrition Status: Acute (9) Lymphoma, small lymphocytic: Problem details: Followed by oncology for CLL/SLL management. Not currently receiving treatment. Status: Chronic (10) History of myocardial infarction: Problem details: NSTEMI 2016 w/ stent placement w/ area of fixed infarction. Status: Resolved (11) Frequent ventricular premature beats: Problem details: Per 02/26/19 [place] [facility] note. Planning Holter fine, metoprolol increased Status: Chronic (12) Type 2 diabetes mellitus: Problem details: Appears to be fairly well controlled even off metformin. Most recent A1c 6.1. Diabetic diet. Status: Acute (13) Hypertension: Problem details: Well controlled off hydrochlorothiazide Continue lisinopril and metoprolol Status: Chronic Plan Awaiting transfer for further pulmonology workup, accepted by [facility] however no bed availability currently. Time Spent With Patient Total time spent: Total time spent caring for the patient today was 45 minutes. This includes time spent for the visit reviewing the chart, time spent during the visit, time spent after the visit and documentation and planning in coordination of care. Subjective Date Seen: 09/10/23 Interval history: Patient reports feeling better this morning. Denies headache or dizziness. Denies chest pain or tightness, still requiring high-flow oxygen. Has remained afebrile. Tolerating orals without nausea vomiting. Awaiting transfer to step-down unit with pulmonology. Exam Narrative: Exam Narrative: PHYSICAL EXAM General: Sitting up on edge of bed, pleasant, conversant, NAD HEENT: Normocephalic, atraumatic, sclera white, EOMI, oral mucosa moist Cardiovascular: IRRR No pitting edema Pulmonary: Diffusely diminished without rhonchi or wheezes. Mild dyspnea Neurological: Alert, answering questions appropriately, cranial nerves intact, no focal findings Extremities: No gross joint deformity or swelling. AROMI. Neurovascularly intact Skin: Warm, dry. Const: Vital Signs, click to edit/add: Vital Signs - 24 hr 09/09/23 15:00 09/09/23 15:15 09/09/23 15:30 Temperature Pulse Rate 49 L 95 85 Pulse Rate [Right Pulse Oximeter] Respiratory Rate Blood Pressure Blood Pressure [Le ft Arm] Blood Pressure [Ri ght Arm] Pulse Oximetry 87 L 85 L 86 L Oxygen Delivery Me thod OxyMask OxyMask OxyMask Oxygen Flow Rate 5 5 5 Fraction of Inspir ed Oxygen 09/09/23 15:55 09/09/23 15:59 09/09/23 16:00 Temperature Pulse Rate 89 78 82 Pulse Rate [Right Pulse Oximeter] Respiratory Rate Blood Pressure 114/66 Blood Pressure [Le ft Arm] Blood Pressure [Ri ght Arm] Pulse Oximetry 89 93 94 Oxygen Delivery Me thod OxyMask OxyMask OxyMask Oxygen Flow Rate 5 5 5 Fraction of Inspir ed Oxygen 09/09/23 16:15 09/09/23 16:30 09/09/23 16:45 Temperature Pulse Rate 91 96 86 Pulse Rate [Right Pulse Oximeter] Respiratory Rate Blood Pressure Blood Pressure [Le ft Arm] Blood Pressure [Ri ght Arm] Pulse Oximetry 92 92 93 Oxygen Delivery Me thod OxyMask OxyMask OxyMask Oxygen Flow Rate 5 5 5 Fraction of Inspir ed Oxygen 09/09/23 17:00 09/09/23 17:15 09/09/23 17:30 Temperature Pulse Rate 93 92 81 Pulse Rate [Right Pulse Oximeter] Respiratory Rate Blood Pressure Blood Pressure [Le ft Arm] Blood Pressure [Ri ght Arm] Pulse Oximetry 93 92 96 Oxygen Delivery Me thod OxyMask OxyMask OxyMask Oxygen Flow Rate 5 5 5 Fraction of Inspir ed Oxygen 09/09/23 17:45 09/09/23 18:00 09/09/23 18:15 Temperature Pulse Rate 80 84 106 H Pulse Rate [Right Pulse Oximeter] Respiratory Rate Blood Pressure Blood Pressure [Le ft Arm] Blood Pressure [Ri ght Arm] Pulse Oximetry 78 L 91 64 L Oxygen Delivery Me thod OxyMask OxyMask OxyMask Oxygen Flow Rate 5 5 5 Fraction of Inspir ed Oxygen 09/09/23 18:30 09/09/23 18:45 09/09/23 19:18 Temperature Pulse Rate 88 89 Pulse Rate [Right Pulse Oximeter] Respiratory Rate 22 Blood Pressure Blood Pressure [Le ft Arm] Blood Pressure [Ri ght Arm] Pulse Oximetry 87 L 86 L 89 Oxygen Delivery Me thod OxyMask OxyMask OxyMask Oxygen Flow Rate 5 5 5 Fraction of Inspir ed Oxygen 09/09/23 20:55 09/09/23 20:55 09/09/23 23:00 Temperature 97.6 F Pulse Rate 90 Pulse Rate [Right Pulse Oximeter] 84 Respiratory Rate 20 20 Blood Pressure Blood Pressure [Le ft Arm] Blood Pressure [Ri ght Arm] 134/50 L Pulse Oximetry 93 91 Oxygen Delivery Me thod OxyMask OxyMask Oxygen Flow Rate 10 10 Fraction of Inspir ed Oxygen 09/09/23 23:00 09/09/23 23:00 09/10/23 00:27 Temperature 97.2 F L Pulse Rate Pulse Rate [Right Pulse Oximeter] 79 Respiratory Rate 20 17 Blood Pressure Blood Pressure [Le ft Arm] Blood Pressure [Ri ght Arm] 127/53 L Pulse Oximetry 93 93 Oxygen Delivery Me thod OxyMask OxyMask Oxygen Flow Rate 8 8 Fraction of Inspir ed Oxygen 50 09/10/23 02:27 09/10/23 03:57 09/10/23 03:59 Temperature 97.5 F L Pulse Rate Pulse Rate [Right Pulse Oximeter] 101 H Respiratory Rate 22 Blood Pressure Blood Pressure [Le ft Arm] Blood Pressure [Ri ght Arm] 121/46 L Pulse Oximetry 93 Oxygen Delivery Me thod High Flow Nasal Ca nnula Oxygen Flow Rate 30 Fraction of Inspir ed Oxygen 60 60 60 09/10/23 06:00 09/10/23 07:00 09/10/23 07:00 Temperature Pulse Rate Pulse Rate [Right Pulse Oximeter] 98 Respiratory Rate 22 22 Blood Pressure Blood Pressure [Le ft Arm] Blood Pressure [Ri ght Arm] Pulse Oximetry 91 Oxygen Delivery Me thod High Flow Nasal Ca nnula Oxygen Flow Rate 30 Fraction of Inspir ed Oxygen 50 55 09/10/23 07:00 09/10/23 07:00 09/10/23 08:00 Temperature 97.1 F L Pulse Rate 88 Pulse Rate [Right Pulse Oximeter] 98 Respiratory Rate 22 Blood Pressure Blood Pressure [Le ft Arm] 112/56 L Blood Pressure [Ri ght Arm] Pulse Oximetry 91 Oxygen Delivery Me thod High Flow Nasal Ca nnula Oxygen Flow Rate 30 Fraction of Inspir ed Oxygen 55 55 09/10/23 10:00 09/10/23 11:00 09/10/23 12:00 Temperature 97.7 F Pulse Rate Pulse Rate [Right Pulse Oximeter] 71 Respiratory Rate 20 Blood Pressure Blood Pressure [Le ft Arm] 119/54 L Blood Pressure [Ri ght Arm] Pulse Oximetry 91 Oxygen Delivery Me thod High Flow Nasal Ca nnula Oxygen Flow Rate 30 Fraction of Inspir ed Oxygen 55 55 55 09/10/23 14:00 Temperature Pulse Rate Pulse Rate [Right Pulse Oximeter] Respiratory Rate Blood Pressure Blood Pressure [Le ft Arm] Blood Pressure [Ri ght Arm] Pulse Oximetry Oxygen Delivery Me thod Oxygen Flow Rate Fraction of Inspir ed Oxygen 55 Labs Labs: Laboratory Results - last 24 hr 09/09/23 09/09/23 09/09/23 12:45 12:58 12:58 WBC RBC Hgb Hct MCV MCH MCHC RDW Coeff of Shabana Plt Count Neut % (Auto) Lymph % (Auto) Bryan % (Auto) Eos % (Auto) Baso % (Auto) Neut # (Auto) Lymph # (Auto) Bryan # (Auto) Eos # (Auto) Baso # (Auto) Abs Immat Gran (auto) Imm/Tot Granulo (auto) Diff Slide Review VBG pH VBG pCO2 VBG pO2 VBG HCO3 Sodium Potassium Chloride Carbon Dioxide Anion Gap BUN Creatinine Estimated Creat Clear Estimated GFR Glucose Calcium Phosphorus Magnesium 1.9 Total Bilirubin 1.7 H Direct Bilirubin 0.3 AST 55 H ALT 34 Alkaline Phosphatase 99 Total Protein 5.8 L Albumin 3.3 Procalcitonin 0.09 Lab Acknowledgement Test Added Test Added 09/09/23 09/10/23 19:59 05:32 WBC 66.57 H* RBC 3.39 L Hgb 10.1 L Hct 32.8 L MCV 97 MCH 30 MCHC 31 L RDW Coeff of Shabana 18.2 H Plt Count 327 Neut % (Auto) 4.8 L Lymph % (Auto) 86.2 H Bryan % (Auto) 5.6 Eos % (Auto) 1.6 Baso % (Auto) 0.2 Neut # (Auto) 3.20 Lymph # (Auto) 57.40 H Bryan # (Auto) 3.70 H Eos # (Auto) 1.10 H Baso # (Auto) 0.10 Abs Immat Gran (auto) 1.10 H Imm/Tot Granulo (auto) 1.6 Diff Slide Review Acceptable Review VBG pH 7.412 VBG pCO2 44 VBG pO2 27.7 VBG HCO3 28 Sodium 134 L Potassium 4.0 Chloride 102 Carbon Dioxide 27 Anion Gap 5 L BUN 37 H Creatinine 1.1 Estimated Creat Clear 47.10 Estimated GFR 55 Glucose 115 Calcium 10.7 H Phosphorus 3.6 Magnesium Total Bilirubin Direct Bilirubin AST ALT Alkaline Phosphatase Total Protein Albumin Procalcitonin Lab Acknowledgement Test Added
--- NOTE | 2023-09-10 19:22 | PC.NURSE ---
Patient alert and oriented, IV-SL. tolerating a reg. diet. awaiting ICU Bed. Highflow at 30/55 sating at 90-93%.
[2023-09-10] MEDS: ATORVASTATIN CALCIUM 40 MG TABLET PO (20:56)
[2023-09-10] MEDS: ENOXAPARIN 40 MG/0.4 ML INJ SUBCUT (20:56)
--- NOTE | 2023-09-10 21:28 | PC.NURSE ---
Called [facility], [facility], [facility], [facility], [facility], [facility], and [facility] all called around 2100. No beds at any of these facilities. Patient is on the wait list at [facility].
[2023-09-11] VITALS (13 sets, daily range): BP systolic 93–117; BP diastolic 42–60; PULSE 64–84; RESP 18–24; TEMP 35.6–36.7; O2SAT 90–97
[2023-09-11] MEDS: PIPERACILLIN/TAZOBACTAM 3.375 GM in 0.9 % SODIUM CHLORIDE Mini-bag 100 ML IVPB ×3 (01:20→13:37)
--- NOTE | 2023-09-11 06:07 | PC.NURSE ---
End of shift [id number]: Patient alert and oriented. Patient had removed high flow, when insurance underwriter sales attempted to assist patient with reapplying she swung out in attempt to hit writers hand away. Patient appeared agitated, upon discussing current mood, patient reported that she had been incontinent of a loose BM and was needing assistance with cleaning up. Daycare Worker assisted patient with changing bottoms and cleaning stool off legs and bottom, bed change completed. Continues on high flow at 30/55, tolerating well and able to maintain oxygen sats >88%. Denies any dyspnea or shortness of breath, lung sounds clear bilaterally.
[2023-09-11 06:28] LABS: Basophils Percent Auto 0.2 % (0.0-3.0); Eosinophils Percent Auto 2.1 % (0.0-7.0); Hematocrit 32.3 % (33.0-51.0); Hemoglobin* 9.8 gm/dL (12.0-16.0); Immature Granulocytes Pct Auto 1.7 %; Lymphocytes Percent Auto 85.7 % (20-44); Mean Corpuscular HGB Conc 30 gm/dL (32-36); Mean Corpuscular Hemoglobin 30 pg (26-34); Mean Corpuscular Volume 99 fL (80-100); Monocytes Percent Auto 6.6 % (0.0-11.0); Neutrophils Percent Auto 3.7 % (42.0-72.0); Platelet Count* 324 K/uL (140-440); RDW Coefficient of Variation % 18.7 % (11.5-15.5); Red Blood Count 3.26 m/uL (4.00-5.20)
[2023-09-11 06:50] LABS: Albumin* 2.7 g/dL (3.3-5.0); Chloride* 104 mmol/L (96-114); Sodium* 132 mmol/L (135-149)
[2023-09-11 06:51] LABS: Potassium* 3.3 mmol/L (3.6-5.1)
[2023-09-11 06:53] LABS: Alanine Aminotransferase* 23 U/L (4-35); Alkaline Phosphatase* 77 U/L (40-150); Anion Gap 0 mEq/L (7-15); Aspartate Amino Transferase* 25 U/L (12-35); Bilirubin Direct* 0.2 mg/dL (0.0-0.5); Bilirubin Total* 1.4 mg/dL (0.1-1.5); Blood Urea Nitrogen* 34 mg/dL (7-30); Carbon Dioxide* 28 mmol/L (20-32); Creatinine* 1.2 mg/dL (0.5-1.5); Est. Creatinine Clearance* 43.17; Estimated Glomerular Filt Rate 50 ml/min; Glucose* 108 mg/dL (60-115); Total Protein* 5.2 g/dL (6.0-8.3)
[2023-09-11 07:40] LABS: Slide Review Reflex Yes; White Blood Count* 69.73 K/uL (4.50-11.00)
[2023-09-11] MEDS: SODIUM CHLORIDE 0.9 % (FLUSH) 10 ML SYRINGE 5 ML IVF (07:40)
[2023-09-11 07:41] LABS: Slide Review Acceptable Review (Acceptable)
[2023-09-11] MEDS: 0.9 % SODIUM CHLORIDE 1000 ml 1,000 ML 125 ML IV (10:21)
[2023-09-11] MEDS: ASCORBIC ACID 500 MG TABLET PO (10:22)
[2023-09-11] MEDS: FEXOFENADINE 180 MG TABLET PO (10:22)
[2023-09-11] MEDS: POTASSIUM CHLORIDE 10 MEQ CAPSULE ER 20 MEQ PO (10:22)
[2023-09-11] MEDS: ASPIRIN 81 MG TABLET EC PO (10:22)
[2023-09-11] MEDS: MAGNESIUM OXIDE 400 MG TABLET PO (10:23)
[2023-09-11] MEDS: METOPROLOL SUCCINATE (XL) 100 MG TAB PO (10:23)
--- NOTE | 2023-09-11 10:49 | PM.IMPN1 ---
Progress Note: A&P Assessment and plan (1) Respiratory failure: Problem details: -Cause of this is unclear. Likely related to ground-glass pulmonary infiltrates. -continue oxygen supplementation to maintain saturations 88-92%, weaning as able, still on high flow -albuterol nebs p.r.n., oral magnesium, empiric antibiotic therapy for infiltrates -echocardiogram 09/10 shows normal left ventricular size, normal wall thickness, normal global systolic function, EF 60%, global systolic RV function is normal -09/10: Discussed with Dr. 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 Worse today than they were 5 days ago. Cause is uncertain. Heart failure verses infection verses infiltrate or medication toxicity. Infiltrates were present 1 week ago when she was admitted with dehydration making heart failure less likely. -continue empiric azithromycin, Zosyn. Received 1 dose vancomycin. Procalcitonin 0.09 -transfer for Pulmonology evaluation, possible bronchoscopy Status: Acute (4) Hypercalcemia: Problem details: Hypercalcemia 1 week ago with a calcium of 12.7. With normal saline hydration dropped to 10.6. Now back up to 11.5. Stop vitamin-D supplementation. Start zoledronic acid -Calcium uptrending, 11.0. 1L IVF hydration ordered Status: Acute (5) Electrolyte abnormality: Problem details: -hypomagnesemia probably related to hypercalcemia. Continues on oral replacement -09/11: hypokalemia, potassium 3.3, oral supplement, recheck in am. Hyponatremia, sodium 132, receiving IV fluids for hypercalcemia, recheck in a.m. Status: Acute (6) Lymphoma, small lymphocytic: Problem details: Followed by oncology for CLL/SLL management. Not currently receiving treatment. Status: Chronic (7) Type 2 diabetes mellitus: Problem details: Appears to be fairly well controlled even off metformin. Most recent A1c 6.1. Diabetic diet. Status: Acute (8) Hypertension: Problem details: Well controlled off hydrochlorothiazide -09/11: SBP <100, hold lisinopril, continue metoprolol, continue to monitor Status: Chronic (9) Weight loss, abnormal: Problem details: 16 kg weight loss in 2 months. she was able to maintain her nutrition but noted a poor appetite in the hospital. Possibly modestly improved in last week -in setting of unknown acute illness Status: Acute Plan Will need transfer for Pulmonology evaluation, possible bronchoscopy. Subjective Date Seen: 09/11/23 Interval history: Patient remains oxygen dependent, 30L. Denies headache or dizziness. Denies chest pain or tightness. Increased SOB with ambulation. Remains afebrile. Tolerating orals without nausea or vomiting. Awaiting bed availablity in [facility] system. Exam Narrative: Exam Narrative: PHYSICAL EXAM General: Sitting up in chair, pleasant, conversant, NAD HEENT: Normocephalic, atraumatic, sclera white, EOMI, oral mucosa moist Cardiovascular: IRRR No pitting edema Pulmonary: Diffusely diminished without rhonchi or wheezes. Mild dyspnea Neurological: Alert, answering questions appropriately, cranial nerves intact, no focal findings Extremities: No gross joint deformity or swelling. AROMI. Neurovascularly intact Skin: Warm, dry. Const: Vital Signs, click to edit/add: Vital Signs - 24 hr 09/10/23 11:00 09/10/23 12:00 09/10/23 14:00 Temperature 97.7 F Pulse Rate Pulse Rate [Right Pulse Oximeter] 71 Respiratory Rate 20 Blood Pressure [Le ft Arm] 119/54 L Blood Pressure [Ri ght Arm] Pulse Oximetry 91 Oxygen Delivery Me thod High Flow Nasal Ca nnula Oxygen Flow Rate 30 Fraction of Inspir ed Oxygen 55 55 55 09/10/23 15:00 09/10/23 15:00 09/10/23 15:00 Temperature Pulse Rate 71 Pulse Rate [Right Pulse Oximeter] 75 Respiratory Rate 20 20 Blood Pressure [Le ft Arm] Blood Pressure [Ri ght Arm] Pulse Oximetry 93 Oxygen Delivery Me thod High Flow Nasal Ca nnula Oxygen Flow Rate 30 Fraction of Inspir ed Oxygen 55 09/10/23 15:00 09/10/23 16:00 09/10/23 18:00 Temperature 97.7 F Pulse Rate Pulse Rate [Right Pulse Oximeter] 75 Respiratory Rate 22 Blood Pressure [Le ft Arm] 105/48 L Blood Pressure [Ri ght Arm] Pulse Oximetry 93 Oxygen Delivery Me thod High Flow Nasal Ca nnula Oxygen Flow Rate 30 Fraction of Inspir ed Oxygen 55 55 55 09/10/23 20:00 09/10/23 20:19 09/10/23 22:00 Temperature 97.9 F Pulse Rate Pulse Rate [Right Pulse Oximeter] 69 Respiratory Rate 22 Blood Pressure [Le ft Arm] 96/45 L Blood Pressure [Ri ght Arm] Pulse Oximetry 94 Oxygen Delivery Me thod High Flow Nasal Ca nnula Oxygen Flow Rate 30 Fraction of Inspir ed Oxygen 55 50 55 09/10/23 22:53 09/10/23 23:00 09/10/23 23:00 Temperature Pulse Rate 64 Pulse Rate [Right Pulse Oximeter] 75 Respiratory Rate 22 22 Blood Pressure [Le ft Arm] Blood Pressure [Ri ght Arm] Pulse Oximetry 90 Oxygen Delivery Me thod High Flow Nasal Ca nnula Oxygen Flow Rate 30 Fraction of Inspir ed Oxygen 55 09/10/23 23:00 09/11/23 00:00 09/11/23 02:00 Temperature 98.5 F Pulse Rate Pulse Rate [Right Pulse Oximeter] 75 Respiratory Rate 20 Blood Pressure [Le ft Arm] 90/33 L Blood Pressure [Ri ght Arm] Pulse Oximetry 90 Oxygen Delivery Me thod High Flow Nasal Ca nnula Oxygen Flow Rate 30 Fraction of Inspir ed Oxygen 55 60 55 09/11/23 03:00 09/11/23 04:00 09/11/23 05:46 Temperature 96.1 F L Pulse Rate Pulse Rate [Right Pulse Oximeter] 75 Respiratory Rate 18 Blood Pressure [Le ft Arm] Blood Pressure [Ri ght Arm] 93/42 L Pulse Oximetry 97 Oxygen Delivery Me thod High Flow Nasal Ca nnula Oxygen Flow Rate 30 Fraction of Inspir ed Oxygen 55 55 55 09/11/23 07:05 Temperature Pulse Rate 64 Pulse Rate [Right Pulse Oximeter] Respiratory Rate Blood Pressure [Le ft Arm] Blood Pressure [Ri ght Arm] Pulse Oximetry Oxygen Delivery Me thod Oxygen Flow Rate Fraction of Inspir ed Oxygen Labs Labs: Laboratory Results - last 24 hr 09/11/23 05:57 WBC 69.73 H* RBC 3.26 L Hgb 9.8 L Hct 32.3 L MCV 99 MCH 30 MCHC 30 L RDW Coeff of Shabana 18.7 H Plt Count 324 Neut % (Auto) 3.7 L Lymph % (Auto) 85.7 H [place] % (Auto) 6.6 Eos % (Auto) 2.1 Baso % (Auto) 0.2 Neut # (Auto) 2.60 Lymph # (Auto) 59.80 H [place] # (Auto) 4.60 H Eos # (Auto) 1.50 H Baso # (Auto) 0.10 Abs Immat Gran (auto) 1.20 H Imm/Tot Granulo (auto) 1.7 Diff Slide Review Acceptable Review Sodium 132 L Potassium 3.3 L Chloride 104 Carbon Dioxide 28 Anion Gap 0 L BUN 34 H Creatinine 1.2 Estimated Creat Clear 43.17 Estimated GFR 50 Glucose 108 Calcium 11.0 H Total Bilirubin 1.4 Direct Bilirubin 0.2 AST 25 ALT 23 Alkaline Phosphatase 77 Total Protein 5.2 L Albumin 2.7 L
--- NOTE | 2023-09-11 13:58 | PM.DS1 ---
DS: Providers Provider Date Seen: 09/11/23 Date of admission: 09/09/23 20:40 Primary care physician: Katerine Bashir MD Admitting Clinician: Anderson Saxena MD Attending Physician on discharge: Latasha Norris [facility] [place] [facility] Date of Discharge: 09/11/23 DS: Diagnosis Discharge Diagnosis (1) Respiratory failure: Status: Acute Problem details: -Cause of this is unclear. Likely related to ground-glass pulmonary infiltrates. -continue oxygen supplementation to maintain saturations 88-92%, weaning as able, still on high flow -albuterol nebs p.r.n., oral magnesium, empiric antibiotic therapy for infiltrates -echocardiogram 09/10 shows normal left ventricular size, normal wall thickness, normal global systolic function, EF 60%, global systolic RV function is normal -09/10: Discussed with Dr. Marcum, Critical Care at [facility], has accepted to pcu bed, awaiting bed availability, no wait time available (09/11 updated with [place] at [facility] - will consider Med Surg bed) -09/11: Accepted by Dr. Macario, [facility] (2) Chronic obstructive pulmonary disease: Status: Chronic Problem details: GOLD C suspected by [place] [employer] agent, Not using Anoro Ellipta , cannot afford Management as above (3) Pulmonary infiltrates: Status: Acute Problem details: -Ground-glass infiltrates identified on CT scan of the chest. Worse today than they were 5 days ago. Cause is uncertain. Heart failure verses infection verses infiltrate or medication toxicity. Infiltrates were present 1 week ago when she was admitted with dehydration making heart failure less likely. -continue empiric azithromycin, Zosyn. Received 1 dose vancomycin. Procalcitonin 0.09 -transfer for Pulmonology evaluation, possible bronchoscopy (4) Hypercalcemia: Status: Acute Problem details: Hypercalcemia 1 week ago with a calcium of 12.7. With normal saline hydration dropped to 10.6. Now back up to 11.5. Stop vitamin-D supplementation. Start zoledronic acid -Calcium uptrending, 11.0. 1L IVF hydration ordered (5) Electrolyte abnormality: Status: Acute Problem details: -hypomagnesemia probably related to hypercalcemia. Continues on oral replacement -09/11: hypokalemia, potassium 3.3, oral supplement, recheck in am. Hyponatremia, sodium 132, receiving IV fluids for hypercalcemia, recheck in a.m. (6) Lymphoma, small lymphocytic: Status: Chronic Problem details: Followed by oncology for CLL/SLL management. Not currently receiving treatment. (7) Type 2 diabetes mellitus: Status: Acute Problem details: Appears to be fairly well controlled even off metformin. Most recent A1c 6.1. Diabetic diet. (8) Hypertension: Status: Chronic Problem details: Well controlled off hydrochlorothiazide -09/11: SBP <100, hold lisinopril, continue metoprolol, continue to monitor (9) Weight loss, abnormal: Status: Acute Problem details: 16 kg weight loss in 2 months. she was able to maintain her nutrition but noted a poor appetite in the hospital. Possibly modestly improved in last week -in setting of unknown acute illness DS: Summary Hospital Course Hospital Course: [age] year old female past medical history significant for CLL, COPD, diabetes mellitus type 2, hypertension, recent hypercalcemia, weight loss was admitted to the medical floor for hypoxic respiratory failure associated with ground-glass pulmonary infiltrates. Course of care and details as noted above. Status at Discharge Overall status at discharge: patient is not back to baseline Time Spent with Patient Time attestation: Total time spent providing and/or coordinating discharge services: Time spent: Greater than 30 minutes Exam Narrative: Exam Narrative: PHYSICAL EXAM General: Sitting up in chair, pleasant, conversant, NAD HEENT: Normocephalic, atraumatic, sclera white, EOMI, oral mucosa moist Cardiovascular: IRRR No pitting edema Pulmonary: Diffusely diminished without rhonchi or wheezes. Mild dyspnea Neurological: Alert, answering questions appropriately, cranial nerves intact, no focal findings Extremities: No gross joint deformity or swelling. AROMI. Neurovascularly intact Skin: Warm, dry. Const: Vital Signs, click to edit/add: Vital Signs - 24 hr 09/10/23 14:00 09/10/23 15:00 09/10/23 15:00 Temperature Pulse Rate 71 Pulse Rate [Right Pulse Oximeter] 75 Respiratory Rate 20 Blood Pressure [Le ft Arm] Blood Pressure [Ri ght Arm] Pulse Oximetry Oxygen Delivery Me thod Oxygen Flow Rate Fraction of Inspir ed Oxygen 55 09/10/23 15:00 09/10/23 15:00 09/10/23 16:00 Temperature 97.7 F Pulse Rate Pulse Rate [Right Pulse Oximeter] 75 Respiratory Rate 20 22 Blood Pressure [Le ft Arm] 105/48 L Blood Pressure [Ri ght Arm] Pulse Oximetry 93 93 Oxygen Delivery Me thod High Flow Nasal Ca nnula High Flow Nasal Ca nnula Oxygen Flow Rate 30 30 Fraction of Inspir ed Oxygen 55 55 55 09/10/23 18:00 09/10/23 20:00 09/10/23 20:19 Temperature 97.9 F Pulse Rate Pulse Rate [Right Pulse Oximeter] 69 Respiratory Rate 22 Blood Pressure [Le ft Arm] 96/45 L Blood Pressure [Ri ght Arm] Pulse Oximetry 94 Oxygen Delivery Me thod High Flow Nasal Ca nnula Oxygen Flow Rate 30 Fraction of Inspir ed Oxygen 55 55 50 09/10/23 22:00 09/10/23 22:53 09/10/23 23:00 Temperature Pulse Rate 64 Pulse Rate [Right Pulse Oximeter] 75 Respiratory Rate 22 Blood Pressure [Le ft Arm] Blood Pressure [Ri ght Arm] Pulse Oximetry Oxygen Delivery Me thod Oxygen Flow Rate Fraction of Inspir ed Oxygen 55 09/10/23 23:00 09/10/23 23:00 09/11/23 00:00 Temperature 98.5 F Pulse Rate Pulse Rate [Right Pulse Oximeter] 75 Respiratory Rate 22 20 Blood Pressure [Le ft Arm] 90/33 L Blood Pressure [Ri ght Arm] Pulse Oximetry 90 90 Oxygen Delivery Me thod High Flow Nasal Ca nnula High Flow Nasal Ca nnula Oxygen Flow Rate 30 30 Fraction of Inspir ed Oxygen 55 55 60 09/11/23 02:00 09/11/23 03:00 09/11/23 04:00 Temperature 96.1 F L Pulse Rate Pulse Rate [Right Pulse Oximeter] 75 Respiratory Rate 18 Blood Pressure [Le ft Arm] Blood Pressure [Ri ght Arm] 93/42 L Pulse Oximetry 97 Oxygen Delivery Me thod High Flow Nasal Ca nnula Oxygen Flow Rate 30 Fraction of Inspir ed Oxygen 55 55 55 09/11/23 05:46 09/11/23 07:05 Temperature Pulse Rate 64 Pulse Rate [Right Pulse Oximeter] Respiratory Rate Blood Pressure [Le ft Arm] Blood Pressure [Ri ght Arm] Pulse Oximetry Oxygen Delivery Me thod Oxygen Flow Rate Fraction of Inspir ed Oxygen 55 DS: Data Data Completed and Pending Labs on day of discharge: Labs from last 24 hours 09/11/23 05:57 WBC 69.73 H* RBC 3.26 L Hgb 9.8 L Hct 32.3 L MCV 99 MCH 30 MCHC 30 L RDW Coeff of Shabana 18.7 H Plt Count 324 Neut % (Auto) 3.7 L Lymph % (Auto) 85.7 H Sully % (Auto) 6.6 Eos % (Auto) 2.1 Baso % (Auto) 0.2 Neut # (Auto) 2.60 Lymph # (Auto) 59.80 H Sully # (Auto) 4.60 H Eos # (Auto) 1.50 H Baso # (Auto) 0.10 Abs Immat Gran (auto) 1.20 H Imm/Tot Granulo (auto) 1.7 Diff Slide Review Acceptable Review Sodium 132 L Potassium 3.3 L Chloride 104 Carbon Dioxide 28 Anion Gap 0 L BUN 34 H Creatinine 1.2 Estimated Creat Clear 43.17 Estimated GFR 50 Glucose 108 Calcium 11.0 H Total Bilirubin 1.4 Direct Bilirubin 0.2 AST 25 ALT 23 Alkaline Phosphatase 77 Total Protein 5.2 L Albumin 2.7 L Preliminary micro results at discharge 09/09/23 12:45 Blood Culture - Preliminary Blood NO GROWTH AFTER 48 HOURS 09/09/23 12:38 Blood Culture - Preliminary Blood NO GROWTH AFTER 48 HOURS Discharge Plan Discharge Disposition: [facility] Date of Admission: 09/09/23 20:40 Attending Provider on Discharge: Latasha Norris Primary Care Provider: Katerine Bashir Condition: Unchanged Discharge Orders: Transfer of Care to Other Hospital (ORDER); Ordered 09/11/23 Ordered By: Latasha Norris Oxygen: Yes Oxygen Delivery Method: high flow Oxygen Flow Rate: 30/55 Urinary Catheter: No Services not available here: Pulmonology, PCU
--- NOTE | 2023-09-11 16:01 | PC.NURSE ---
Pt continues on high flow oxygen, sats 94-95%. IV site left AC infiltrated, new site per [facility] RN for completion of scheduled ATB @ initial shift assessment. Up to BSC, remains dyspneic with mild activity. BP low at initial assessment, Maintenance IVF improved BP to 113/60. Pt with Obey updated per primary RN & Latasha Barrios at bedside. Report to oncoming shift RN. Pending transfer to [place] for specialty care pulmonology. Awaiting bed availability call from accepting facility.
--- NOTE | 2023-09-11 16:23 | PC.NURSE ---
Tele indicates sinus arrhythmia with PVCs noted.
--- NOTE | 2023-09-11 16:43 | RESP.RT ---
Patient on HFNC today waiting for transport, suggested for transport Non-rebreathing mask starting at 10 Lpm.
== END 2023-09-11 17:24 | disposition short-term general hospital (02) | DRG 189 ==
LOC: ED 20:06 → MEDSURG 20:25
PROVIDERS: Admitting Provider Family Medicine; Emergency Provider Family Medicine; PCP Family Medicine; Visit Provider Family Medicine
DX: J96.01 Acute respiratory failure with hypoxia (principal); C91.10 Chronic lymphocytic leukemia of B-cell type not having achieved remission; L12.0 Bullous pemphigoid; E83.52 Hypercalcemia; R91.8 Other nonspecific abnormal finding of lung field; E83.42 Hypomagnesemia; R63.4 Abnormal weight loss; J44.9 Chronic obstructive pulmonary disease, unspecified; E11.9 Type 2 diabetes mellitus without complications; I10 Essential (primary) hypertension; R74.01 Elevation of levels of liver transaminase levels; I25.2 Old myocardial infarction; Z87.891 Personal history of nicotine dependence; I49.8 Other specified cardiac arrhythmias; I49.3 Ventricular premature depolarization; I25.10 Atherosclerotic heart disease of native coronary artery without angina pectoris; Z95.1 Presence of aortocoronary bypass graft; Z95.5 Presence of coronary angioplasty implant and graft
CPT/HCPCS: 36415; 71045; 71275; 80048; 80076; 82803; 83605; 83735; 83880; 84100; 84145; 84484; 85025; 85379; 86140; 87040; 87081; 87631; 93005; 93306; 94640; 94761; 99284; 99285; A9270; J1650; J1940; J2543; J3370; J3489; J7030; J7120; Q9967

== ENCOUNTER 2023-09-11 17:16 | Outpatient (CLI) | payer MEDICARE, SELFPAY | END 2023-09-11 17:17 | disposition home or self-care (01) | LOC: AMB 09-16 11:15 | PROVIDERS: PCP Family Medicine; Visit Provider Family Medicine | DX: R06.09 Other forms of dyspnea (principal) | CPT/HCPCS: A0425; A0426 ==

== ENCOUNTER 2023-09-18 13:58 | Outpatient (CLI) | payer MEDICARE, SELFPAY | END 2023-09-18 13:59 | disposition home or self-care (01) | PROVIDERS: PCP Family Medicine; Visit Provider Family Medicine | DX: Z00.00 Encounter for general adult medical examination without abnormal findings (principal); E83.52 Hypercalcemia; E83.42 Hypomagnesemia; C83.00 Small cell B-cell lymphoma, unspecified site; I10 Essential (primary) hypertension | CPT/HCPCS: 80053 ==

== ENCOUNTER 2023-09-25 13:56 | Emergency (ER) | payer MEDICARE, SELFPAY ==
[2023-09-25] VITALS (17 sets, daily range): BP systolic 115–129; BP diastolic 48–77; PULSE 34–70; RESP 16; TEMP 36.9; O2SAT 92–97; BMI 25.1
--- NOTE | 2023-09-25 14:29 | ED.GENADULT ---
HPI - General Adult General Time Seen by Provider: 14:20 <Alexandra Reyes - Last Filed: 09/25/23 14:40> Date Seen: 09/25/23 <Alexandra Reyes - Last Filed: 09/25/23 14:40> Chief complaint: Arrhythmia/Palpitations <Alexandra Reyes - Last Filed: 09/25/23 14:40> Stated complaint: From [facility]--low heartrate <Alexandra Reyes - Last Filed: 09/25/23 14:40> Time Seen by Provider: 09/25/23 13:58 <Alexandra Reyes - Last Filed: 09/25/23 14:40> History of Present Illness HPI narrative: Pt is a 68 yo female with a hx of CLL with a recent hospitalization for interstitial pneumonia at [place] where she was treated with IV antibiotics and steroids presents after her follow up visit today with her oncologist where her HR was in the 30s and they sent her to the ED for further workup. 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 She did not hit her head. She does report vomiting that occurred several times last night without blood, she has not vomited today but is still nauseous. She also reports 2 days of a headache. Denies fever, chills, cough, sore throat, or any recent sick contacts. She is currently still taking the steroids from the hospital on a taper. She denies chest pain, pressure, numbness or tingling of her arms, or shortness of breath. She reports that she hasn't eaten or drank much today. She does note a hx of arrhythmia and has been followed by her computer aide for this in the past. <Alexandra Reyes - Last Filed: 09/25/23 14:40> Pt is a 68 yo female with a hx of CLL with a recent hospitalization for interstitial pneumonia at [place] where she was treated with IV antibiotics and steroids presents after her follow up visit today with her oncologist where her HR was in the 30s and they sent her to the ED for further workup. 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 She did not hit her head. She does report vomiting that occurred several times last night without blood, she has not vomited today but is still nauseous. She also reports 2 days of a headache. Denies fever, chills, cough, sore throat, or any recent sick contacts. She is currently still taking the steroids from the hospital on a taper. She denies chest pain, pressure, numbness or tingling of her arms, or shortness of breath. She reports that she hasn't eaten or drank much today. She does note a hx of arrhythmia and has been followed by her computer aide for this in the past. She has worked with Dr. Farias, [facility] and has been told that her heart rate is slow and she has frequent ?extra beats?. She feels maybe her p.o. intake has not been adequate, and she has not been eating or drinking very much since her hospital stay. She would not have sought any help if she had been told her heart rate was slow in the [facility] clinic, she really isn't having any symptoms, other than the nausea last night. She did feel little lightheaded last night and today. <Calos Crawford MD - Last Filed: 09/26/23 12:54> Related Data Home medications: Home Medications Medication Instructions Recorded Confirmed aspirin 81 mg tablet,delayed 81 mg PO DAILY 04/26/22 09/25/23 release albuterol sulfate 2.5 mg/3 mL 2.5 mg inhalation Q4H PRN 11/19/22 09/25/23 (0.083 %) solution for nebulization ascorbic acid (vitamin C) 500 mg 500 mg PO DAILY 01/23/23 09/25/23 tablet fexofenadine 180 mg tablet 180 mg PO DAILY 01/23/23 09/25/23 (Rosangela Allergy) atorvastatin 40 mg tablet 40 mg PO HS 09/09/23 09/25/23 lisinopril 40 mg tablet 20 mg PO DAILY 09/09/23 09/25/23 metoprolol succinate 100 mg 100 mg PO DAILY 09/09/23 09/25/23 tablet,extended release 24 hr prednisone 10 mg tablet 10 mg PO DIRECTED 09/18/23 09/25/23 Previous Rx's Medication Instructions Recorded albuterol sulfate 90 mcg/actuation 2 puff inhalation Q4H PRN 09/05/22 aerosol inhaler shortness of breath or wheezing #25.5 grams nitroglycerin 0.4 mg sublingual 0.4 mg sublingual Q5-15M PRN chest 06/10/23 tablet pain #30 tabs magnesium oxide 400 mg (241.3 mg 400 mg PO DAILY #30 tabs 09/02/23 magnesium) tablet <Alexandra Reyes - Last Filed: 09/25/23 14:40> Allergies/adverse reactions: Allergies Allergy/AdvReac Type Severity Reaction Status Date / Time dunbar saul Allergy Intermediate Blisters/it Uncoded 09/18/23 13:23 [email or web address] <Alexandra Reyes - Last Filed: 09/25/23 14:40> Review of Systems Status of ROS: Reports: 10 or more systems reviewed and unremarkable except as noted in History and below <Alexandra Reyes - Last Filed: 09/25/23 14:40> Reports: 10 or more systems reviewed and unremarkable except as noted in History and below <Calos Crawford MD - Last Filed: 09/26/23 12:54> [facility] Medical History: Medical History Respiratory failure ?J96.90 - Respiratory failure, unspecified, unspecified whether with hypoxia or hypercapnia (ICD-10) Dyslipidemia ?E78.5 - Hyperlipidemia, unspecified (ICD-10) Microalbuminuria due to type 2 diabetes mellitus ?E11.29 - Type 2 diabetes mellitus with other diabetic kidney complication (ICD-10) ?R80.9 - Proteinuria, unspecified (ICD-10) Lymphoma, small lymphocytic (2018) ?C83.00 - Small cell B-cell lymphoma, unspecified site (ICD-10) Type 2 diabetes mellitus ?E11.9 - Type 2 diabetes mellitus without complications (ICD-10) Chronic obstructive pulmonary disease (06/2020) ?J44.9 - Chronic obstructive pulmonary disease, unspecified (ICD-10) Pulmonary infiltrates ?R91.8 - Other nonspecific abnormal finding of lung field (ICD-10) Polypharmacy ?Z79.899 - Other senior living (current) drug therapy (ICD-10) Diarrhea ?R19.7 - Diarrhea, unspecified (ICD-10) Bullous pemphigoid (~12/2022) ?L12.0 - Bullous pemphigoid (ICD-10) Splenomegaly (07/2022) ?R16.1 - Splenomegaly, not elsewhere classified (ICD-10) Elevated liver transaminase level ?R74.01 - Elevation of levels of liver transaminase levels (ICD-10) Ventricular bigeminy (2017) ?I49.8 - Other specified cardiac arrhythmias (ICD-10) History of bone density study (03/2023) ?Z92.89 - Personal history of other medical treatment (ICD-10) Vitamin D deficiency ?E55.9 - Vitamin D deficiency, unspecified (ICD-10) No retinopathy on exam (03/2021) ?Z01.00 - Encounter for examination of eyes and vision without abnormal findings (ICD-10) Hypertension ?I10 - Essential (primary) hypertension (ICD-10) History of myocardial infarction (11/21/15) ?I25.2 - Old myocardial infarction (ICD-10) History of malignant neoplasm of skin ?Z85.828 - Personal history of other malignant neoplasm of skin (ICD-10) Frequent ventricular premature beats ?I49.3 - Ventricular premature depolarization (ICD-10) Coronary artery disease (2000) ?I25.10 - Atherosclerotic heart disease of [place] coronary artery without angina pectoris (ICD-10) <Alexandra Eric - Last Filed: 09/25/23 14:40> Surgical History: Surgical History History of bronchoscopy (08/2023) ?Z98.890 - Other specified postprocedural states (ICD-10) History of four vessel coronary artery bypass graft (2000) ?Z95.1 - Presence of aortocoronary bypass graft (ICD-10) History of coronary artery stent placement (11/21/15) ?Z95.5 - Presence of coronary angioplasty implant and graft (ICD-10) <Alexandra Eric - Last Filed: 09/25/23 14:40> Family History: Family History Father Stroke, Onset Age: 70 Prostate cancer Mother Diabetes Myocardial infarction, Onset Age: 65 Daughter Stroke, Onset Age: 36 <Alexandra Eric - Last Filed: 09/25/23 14:40> Social History: 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: , [employer]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, 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 SMOKER: Tobacco abuse- 10/day, 32 pack years~ resolved 01/16 Does not exercise- active in garden and yard Social drinker- 2/week Past problems: Non-smoker- quit 2000, hx 30 pack years What is your current living situation?: I presently have a place to live Problems where you live: no known problems Problems where you live details: NA In the past 12 months, utilities in danger of being shut off: no In past 12 months, lack of transportation kept you from medical appts, meetings, work, or getting things needed for daily living: no In the past 12 mos, have been you worried that your food would run out before you had money to buy more?: never true In the past 12 mos, the food you bought just didn't last and you didn't have money to buy more?: never true Highest level of school completed/degree received: 12th grade, no diploma Smoking Status: Former smoker What tobacco products do you use: cigarettes Smoking quit date/years: <= 15 years ago Do you use any of these nicotine containing products: None Second hand tobacco smoke exposure: No How often do you have a drink containing alcohol: never How often do you have six or more drinks on one occasion: Never AUDIT-C Alcohol total score: 0 Non-prescribed substance use: denies use Caffeine: No How often does anyone, including family, friends and others, physically hurt you: never How often does anyone, including family, friends and others, insult or talk down to you: never How often does anyone, including family, friends and others, threaten you with harm: never How often does anyone, including family, friends and others, scream or curse at you: never Little interest or pleasure in doing things: several days Feeling down, depressed, or hopeless: not at all service: No <Alexandra Eric - Last Filed: 09/25/23 14:40> Exam Narrative: Exam Narrative: General: Seated upright in bed, A&Ox3, appears ill with dry mucous membranes HEENT: Normocephalic, atraumatic, PEERL Cardiac: Regularly irregular with ectopic beats, 2/6 systolic murmur, no LE edema Lungs: CTAB Abdomen: Soft, NT <Alexandra Reyes - Last Filed: 09/25/23 14:40> Exam Narrative: General: Seated upright in bed, A&Ox3, appears ill with dry mucous membranes HEENT: Normocephalic, atraumatic, PEERL Cardiac: Regularly irregular with ectopic beats, 2/6 systolic murmur, no LE edema Lungs: CTAB Abdomen: Soft, NT Extremities are no edema, neurologic grossly nonfocal. <Calos Crawford MD - Last Filed: 09/26/23 12:54> Const: Vital Signs, click to edit/add: Vital Signs - 24 hr 09/25/23 14:03 09/25/23 14:19 09/25/23 14:30 Temperature 98.5 F Pulse Rate 35 L 36 L Pulse Rate [Pulse Oximeter] 35 L Respiratory Rate 16 Blood Pressure Blood Pressure [Ri ght Upper Arm] 129/51 L Pulse Oximetry 96 97 97 Oxygen Delivery Me thod Room Air 09/25/23 14:32 09/25/23 14:45 09/25/23 14:50 Temperature Pulse Rate 36 L 34 L 36 L Pulse Rate [Pulse Oximeter] Respiratory Rate Blood Pressure 122/55 L 115/48 L Blood Pressure [Ri ght Upper Arm] Pulse Oximetry 95 95 94 Oxygen Delivery Me thod 09/25/23 14:52 09/25/23 14:53 09/25/23 15:00 Temperature Pulse Rate 41 L 64 60 Pulse Rate [Pulse Oximeter] Respiratory Rate Blood Pressure 124/59 L Blood Pressure [Ri ght Upper Arm] Pulse Oximetry 93 95 95 Oxygen Delivery Me thod 09/25/23 15:02 09/25/23 15:03 09/25/23 15:09 Temperature Pulse Rate 65 54 L Pulse Rate [Pulse Oximeter] Respiratory Rate 16 Blood Pressure 119/77 Blood Pressure [Ri ght Upper Arm] Pulse Oximetry 96 95 94 Oxygen Delivery Me thod 09/25/23 15:12 09/25/23 15:15 09/25/23 15:22 Temperature Pulse Rate 57 L 60 68 Pulse Rate [Pulse Oximeter] Respiratory Rate Blood Pressure 124/56 L 115/58 L Blood Pressure [Ri ght Upper Arm] Pulse Oximetry 94 92 94 Oxygen Delivery Me thod 09/25/23 15:30 09/25/23 15:45 Temperature Pulse Rate 70 51 L Pulse Rate [Pulse Oximeter] Respiratory Rate Blood Pressure Blood Pressure [Ri ght Upper Arm] Pulse Oximetry 93 97 Oxygen Delivery Me thod <Alexandra Eric - Last Filed: 09/25/23 14:40> Vital Signs, click to edit/add: Vital Signs - 24 hr 09/25/23 14:03 09/25/23 14:19 09/25/23 14:30 Temperature 98.5 F Pulse Rate 35 L 36 L Pulse Rate [Pulse Oximeter] 35 L Respiratory Rate 16 Blood Pressure Blood Pressure [Ri ght Upper Arm] 129/51 L Pulse Oximetry 96 97 97 Oxygen Delivery Me thod Room Air 09/25/23 14:32 09/25/23 14:45 09/25/23 14:50 Temperature Pulse Rate 36 L 34 L 36 L Pulse Rate [Pulse Oximeter] Respiratory Rate Blood Pressure 122/55 L 115/48 L Blood Pressure [Ri ght Upper Arm] Pulse Oximetry 95 95 94 Oxygen Delivery Me thod 09/25/23 14:52 09/25/23 14:53 09/25/23 15:00 Temperature Pulse Rate 41 L 64 60 Pulse Rate [Pulse Oximeter] Respiratory Rate Blood Pressure 124/59 L Blood Pressure [Ri ght Upper Arm] Pulse Oximetry 93 95 95 Oxygen Delivery Me thod 09/25/23 15:02 09/25/23 15:03 09/25/23 15:09 Temperature Pulse Rate 65 54 L Pulse Rate [Pulse Oximeter] Respiratory Rate 16 Blood Pressure 119/77 Blood Pressure [Ri ght Upper Arm] Pulse Oximetry 96 95 94 Oxygen Delivery Me thod 09/25/23 15:12 09/25/23 15:15 09/25/23 15:22 Temperature Pulse Rate 57 L 60 68 Pulse Rate [Pulse Oximeter] Respiratory Rate Blood Pressure 124/56 L 115/58 L Blood Pressure [Ri ght Upper Arm] Pulse Oximetry 94 92 94 Oxygen Delivery Me thod 09/25/23 15:30 09/25/23 15:45 Temperature Pulse Rate 70 51 L Pulse Rate [Pulse Oximeter] Respiratory Rate Blood Pressure Blood Pressure [Ri ght Upper Arm] Pulse Oximetry 93 97 Oxygen Delivery Me thod <Calos Crawford MD - Last Filed: 09/26/23 12:54> Course Vital Signs Vital signs: Initial Vital Signs Temperature 98.5 F 09/25/23 14:03 Temperature Source Temporal Artery Scan 09/25/23 14:03 Pulse Rate 35 L 09/25/23 14:03 Pulse Rhythm Regular 09/25/23 14:03 Pulse Strength 3+ Normal 09/25/23 14:03 Respiratory Rate 16 09/25/23 14:03 Blood Pressure 129/51 L 09/25/23 14:03 Blood Pressure Mean 77 09/25/23 14:03 Blood Pressure Position Semi-Fowlers 09/25/23 14:03 Pulse Oximetry 96 09/25/23 14:03 Oxygen Delivery Method Room Air 09/25/23 14:03 Vital Signs Temperature 98.5 F 09/25/23 14:03 Pulse Rate 35 L 09/25/23 14:03 Respiratory Rate 16 09/25/23 14:03 Blood Pressure 129/51 L 09/25/23 14:03 Pulse Oximetry 96 09/25/23 14:03 Oxygen Delivery Method Room Air 09/25/23 14:03 Temperature 98.5 F 09/25/23 14:03 Pulse Rate 51 L 09/25/23 15:45 Respiratory Rate 16 09/25/23 15:02 Blood Pressure 115/58 L 09/25/23 15:22 Pulse Oximetry 97 09/25/23 15:45 Oxygen Delivery Method Room Air 09/25/23 14:03 <Alexandra Reyes - Last Filed: 09/25/23 14:40> Initial Vital Signs Temperature 98.5 F 09/25/23 14:03 Temperature Source Temporal Artery Scan 09/25/23 14:03 Pulse Rate 35 L 09/25/23 14:03 Pulse Rhythm Regular 09/25/23 14:03 Pulse Strength 3+ Normal 09/25/23 14:03 Respiratory Rate 16 09/25/23 14:03 Blood Pressure 129/51 L 09/25/23 14:03 Blood Pressure Mean 77 09/25/23 14:03 Blood Pressure Position Semi-Fowlers 09/25/23 14:03 Pulse Oximetry 96 09/25/23 14:03 Oxygen Delivery Method Room Air 09/25/23 14:03 Vital Signs Temperature 98.5 F 09/25/23 14:03 Pulse Rate 35 L 09/25/23 14:03 Respiratory Rate 16 09/25/23 14:03 Blood Pressure 129/51 L 09/25/23 14:03 Pulse Oximetry 96 09/25/23 14:03 Oxygen Delivery Method Room Air 09/25/23 14:03 Temperature 98.5 F 09/25/23 14:03 Pulse Rate 51 L 09/25/23 15:45 Respiratory Rate 16 09/25/23 15:02 Blood Pressure 115/58 L 09/25/23 15:22 Pulse Oximetry 97 09/25/23 15:45 Oxygen Delivery Method Room Air 09/25/23 14:03 <Calos Crawford MD - Last Filed: 09/26/23 12:54> Medications Administered Medications: Discontinued Medications Generic Name Dose Route Start Last Admin Trade Name Freq PRN Reason Stop Dose Admin Sodium Chloride 1,000 mls @ 6,000 mls/hr 09/25/23 14:30 09/25/23 15:30 0.9 % Sodium Chloride 1000 Ml IV 09/25/23 14:39 Infused .Q10M [facility] <Alexandra Reyes - Last Filed: 09/25/23 14:40> Discontinued Medications Generic Name Dose Route Start Last Admin Trade Name Freq PRN Reason Stop Dose Admin Sodium Chloride 1,000 mls @ 6,000 mls/hr 09/25/23 14:30 09/25/23 15:30 0.9 % Sodium Chloride 1000 Ml IV 09/25/23 14:39 Infused .Q10M [facility] <Calos Crawford MD - Last Filed: 09/26/23 12:54> Medical Decision Making [facility] Narrative Medical decision making narrative: 68-year-old female with multiple medical problems, with a history of what sounds like bigeminy and frequent PVCs, [facility]. The patient has a reassuring blood pressure, she has frequent ectopy that occasionally has bigeminy, and then she will have 4-5 regular beats of sinus rhythm and then a PVC. She reports that this has been which she and Dr. Her cueva talked about in the past and there was no mention of pacemaker other intervention at this time. The patient's EKG at this time shows sinus rhythm frequent PVCs and bigeminy there is some ST changes but there is some artifact as well. I think this is more related to the PVC than ischemic change. The for completeness the patient will get IV fluid will check electrolytes will check a troponin. Will keep her on a acid concentrator. She has also had a history of recently elevated calcium and will recheck that. <Calos Crawford MD - Last Filed: 09/26/23 12:54> Lab Data Labs: Lab Results 09/25/23 09/25/23 Range/Units 14:30 14:49 WBC 117.22 H* (4.50-11.00) K/uL RBC 3.59 L (4.00-5.20) m/uL Hgb 10.5 L (12.0-16.0) gm/dL Hct 35.2 (33.0-51.0) % MCV 98 (80-100) fL MCH 29 (26-34) pg MCHC 30 L (32-36) gm/dL RDW Coeff of Shabana 18.1 H (11.5-15.5) % Plt Count 223 (140-440) K/uL Neut % (Auto) 15.4 L (42.0-72.0) % Lymph % (Auto) 82.2 H (20-44) % Wise % (Auto) 1.3 (0.0-11.0) % Eos % (Auto) 0.0 (0.0-7.0) % Baso % (Auto) 0.1 (0.0-3.0) % Neut # (Auto) 18.10 H (1.7-7.0) K/uL Lymph # (Auto) 96.40 H (0.90-2.90) K/uL Wise # (Auto) 1.50 H (0.00-0.90) K/UL Eos # (Auto) 0.00 (0.00-0.50) K/uL Baso # (Auto) 0.10 (0.00-0.30) K/uL Abs Immat Gran (auto) 1.20 H (0.00-0.30) K/uL Imm/Tot Granulo (auto) 1.0 % Diff Slide Review Acceptable Review (Acceptable) Sodium 133 L (135-149) mmol/L Potassium 3.9 (3.6-5.1) mmol/L Chloride 99 (96-114) mmol/L Carbon Dioxide 28 (20-32) mmol/L Anion Gap 6 L (7-15) mEq/L BUN 20 (7-30) mg/dL Creatinine 0.7 (0.5-1.5) mg/dL Estimated Creat Clear 51.81 Estimated GFR 95 ml/min Glucose 183 H (60-115) mg/dL Calcium 9.4 (8.4-10.6) mg/dL Magnesium 1.8 (1.5-2.6) mg/dL Total Bilirubin 1.9 H (0.1-1.5) mg/dL Direct Bilirubin 0.1 (0.0-0.5) mg/dL AST 30 (12-35) U/L ALT 31 (4-35) U/L Alkaline Phosphatase 92 (40-150) U/L Total Protein 6.5 (6.0-8.3) g/dL Albumin 4.0 (3.3-5.0) g/dL POC Troponin I 0.02 (0.01-0.04) ng/ml <Alexandra [place] - Last Filed: 09/25/23 14:40> Lab Results 09/25/23 09/25/23 Range/Units 14:30 14:49 WBC 117.22 H* (4.50-11.00) K/uL RBC 3.59 L (4.00-5.20) m/uL Hgb 10.5 L (12.0-16.0) gm/dL Hct 35.2 (33.0-51.0) % MCV 98 (80-100) fL MCH 29 (26-34) pg MCHC 30 L (32-36) gm/dL RDW Coeff of Shabana 18.1 H (11.5-15.5) % Plt Count 223 (140-440) K/uL Neut % (Auto) 15.4 L (42.0-72.0) % Lymph % (Auto) 82.2 H (20-44) % Wise % (Auto) 1.3 (0.0-11.0) % Eos % (Auto) 0.0 (0.0-7.0) % Baso % (Auto) 0.1 (0.0-3.0) % Neut # (Auto) 18.10 H (1.7-7.0) K/uL Lymph # (Auto) 96.40 H (0.90-2.90) K/uL Wise # (Auto) 1.50 H (0.00-0.90) K/UL Eos # (Auto) 0.00 (0.00-0.50) K/uL Baso # (Auto) 0.10 (0.00-0.30) K/uL Abs Immat Gran (auto) 1.20 H (0.00-0.30) K/uL Imm/Tot Granulo (auto) 1.0 % Diff Slide Review Acceptable Review (Acceptable) Sodium 133 L (135-149) mmol/L Potassium 3.9 (3.6-5.1) mmol/L Chloride 99 (96-114) mmol/L Carbon Dioxide 28 (20-32) mmol/L Anion Gap 6 L (7-15) mEq/L BUN 20 (7-30) mg/dL Creatinine 0.7 (0.5-1.5) mg/dL Estimated Creat Clear 51.81 Estimated GFR 95 ml/min Glucose 183 H (60-115) mg/dL Calcium 9.4 (8.4-10.6) mg/dL Magnesium 1.8 (1.5-2.6) mg/dL Total Bilirubin 1.9 H (0.1-1.5) mg/dL Direct Bilirubin 0.1 (0.0-0.5) mg/dL AST 30 (12-35) U/L ALT 31 (4-35) U/L Alkaline Phosphatase 92 (40-150) U/L Total Protein 6.5 (6.0-8.3) g/dL Albumin 4.0 (3.3-5.0) g/dL POC Troponin I 0.02 (0.01-0.04) ng/ml <Calos Crawford MD - Last Filed: 09/26/23 12:54> Discharge Plan Discharge Clinical Impression: Asymptomatic PVCs, Bigeminy <Alexandra Reyes - Last Filed: 09/25/23 14:40> Patient Disposition: Home w/ Parent or Adult <Alexandra Reyes - Last Filed: 09/25/23 14:40> Condition: Stable <Alexandra Reyes - Last Filed: 09/25/23 14:40> Additional Instructions: Light activity, finish the steroid steroid taper, adequate fluid intake. Follow up with regular doctor next couple of days. Return to ED sooner problems or concerns. Follow up appointment is scheduled at the [facility] on 10/03 with a 2:30pm appointment time. Please check in at 2:20pm to complete paperwork. Follow up Cardiology appointment is also scheduled at the [facility] on 10/18 with an 8:30am appointment time. Please check in at 8:20am to complete paperwork. If you have any questions about either appointment or need to reschedule, please call [phone]. [facility] [address] [place] [address] <Alexandrasona Reyes - Last Filed: 09/25/23 14:40> Activity Level: Light activity <Alexandra Reyes - Last Filed: 09/25/23 14:40> Light activity <Calos Crawford MD - Last Filed: 09/26/23 12:54> Discharge Diet: Regular <Alexandra Reyes - Last Filed: 09/25/23 14:40> Regular <Calos Crawford MD - Last Filed: 09/26/23 12:54> Prescriptions: No Action prednisone 10 mg tablet 10 mg PO DIRECTED Rx Instructions: see taper instructions aspirin 81 mg tablet,delayed release (DR/EC) 81 mg PO DAILY ascorbic acid (vitamin C) 500 mg tablet 500 mg PO DAILY albuterol sulfate 2.5 mg /3 mL (0.083 %) solution for nebulization 2.5 mg inhalation Q4H PRN fexofenadine [Rosangela Allergy] 180 mg tablet 180 mg PO DAILY magnesium oxide 400 mg (241.3 mg magnesium) Tablet 400 mg PO DAILY Qty: 30 0RF atorvastatin 40 mg tablet 40 mg PO HS metoprolol succinate 100 mg tablet extended release 24 hr 100 mg PO DAILY lisinopril 40 mg tablet 20 mg PO DAILY albuterol sulfate 90 mcg/actuation HFA aerosol inhaler 2 puff inhalation Q4H PRN (Reason: shortness of breath or wheezing) Qty: 25.5 1RF nitroglycerin 0.4 mg tablet, sublingual 0.4 mg sublingual Q5-15M PRN (Reason: chest pain) Qty: 30 0RF Rx Instructions: PRN CHEST PAIN <Alexandrasona Reyes - Last Filed: 09/25/23 14:40> Follow Up/Referrals: Katerine Bashir MD [Primary Care Provider] - <Alexandra Reyes - Last Filed: 09/25/23 14:40> Stand Alone Forms: MyHealth Info Instructions <Alexandra Reyes - Last Filed: 09/25/23 14:40>
--- NOTE | 2023-09-25 14:38 | ED_ITS ---
HPI - General Adult General Chief complaint: Arrhythmia/Palpitations Stated complaint: From [facility]--low heartrate Time Seen by Provider: 09/25/23 13:58 Related Data Home Medications Medication Instructions Recorded Confirmed aspirin 81 mg tablet,delayed 81 mg PO DAILY 04/26/22 09/25/23 release albuterol sulfate 2.5 mg/3 mL 2.5 mg inhalation Q4H PRN 11/19/22 09/25/23 (0.083 %) solution for nebulization ascorbic acid (vitamin C) 500 mg 500 mg PO DAILY 01/23/23 09/25/23 tablet fexofenadine 180 mg tablet 180 mg PO DAILY 01/23/23 09/25/23 (Rosangela Allergy) atorvastatin 40 mg tablet 40 mg PO HS 09/09/23 09/25/23 lisinopril 40 mg tablet 20 mg PO DAILY 09/09/23 09/25/23 metoprolol succinate 100 mg 100 mg PO DAILY 09/09/23 09/25/23 tablet,extended release 24 hr prednisone 10 mg tablet 10 mg PO DIRECTED 09/18/23 09/25/23 Previous Rx's Medication Instructions Recorded albuterol sulfate 90 mcg/actuation 2 puff inhalation Q4H PRN 09/05/22 aerosol inhaler shortness of breath or wheezing #25.5 grams nitroglycerin 0.4 mg sublingual 0.4 mg sublingual Q5-15M PRN chest 06/10/23 tablet pain #30 tabs magnesium oxide 400 mg (241.3 mg 400 mg PO DAILY #30 tabs 09/02/23 magnesium) tablet Allergies Allergy/AdvReac Type Severity Reaction Status Date / Time dunbar saul Allergy Intermediate Blisters/it Uncoded 09/18/23 13:23 [facility] Medical History Respiratory failure ?J96.90 - Respiratory failure, unspecified, unspecified whether with hypoxia or hypercapnia (ICD-10) Dyslipidemia ?E78.5 - Hyperlipidemia, unspecified (ICD-10) Microalbuminuria due to type 2 diabetes mellitus ?E11.29 - Type 2 diabetes mellitus with other diabetic kidney complication (ICD-10) ?R80.9 - Proteinuria, unspecified (ICD-10) Lymphoma, small lymphocytic (2018) ?C83.00 - Small cell B-cell lymphoma, unspecified site (ICD-10) Type 2 diabetes mellitus ?E11.9 - Type 2 diabetes mellitus without complications (ICD-10) Chronic obstructive pulmonary disease (06/2020) ?J44.9 - Chronic obstructive pulmonary disease, unspecified (ICD-10) Pulmonary infiltrates ?R91.8 - Other nonspecific abnormal finding of lung field (ICD-10) Polypharmacy ?Z79.899 - Other group home (current) drug therapy (ICD-10) Diarrhea ?R19.7 - Diarrhea, unspecified (ICD-10) Bullous pemphigoid (~12/2022) ?L12.0 - Bullous pemphigoid (ICD-10) Splenomegaly (07/2022) ?R16.1 - Splenomegaly, not elsewhere classified (ICD-10) Elevated liver transaminase level ?R74.01 - Elevation of levels of liver transaminase levels (ICD-10) Ventricular bigeminy (2018) ?I49.8 - Other specified cardiac arrhythmias (ICD-10) History of bone density study (03/2023) ?Z92.89 - Personal history of other medical treatment (ICD-10) Vitamin D deficiency ?E55.9 - Vitamin D deficiency, unspecified (ICD-10) No retinopathy on exam (03/2021) ?Z01.00 - Encounter for examination of eyes and vision without abnormal findings (ICD-10) Hypertension ?I10 - Essential (primary) hypertension (ICD-10) History of myocardial infarction (11/21/15) ?I25.2 - Old myocardial infarction (ICD-10) History of malignant neoplasm of skin ?Z85.828 - Personal history of other malignant neoplasm of skin (ICD-10) Frequent ventricular premature beats ?I49.3 - Ventricular premature depolarization (ICD-10) Coronary artery disease (2000) ?I25.10 - Atherosclerotic heart disease of [place] coronary artery without angina pectoris (ICD-10) Surgical History History of bronchoscopy (08/2023) ?Z98.890 - Other specified postprocedural states (ICD-10) History of four vessel coronary artery bypass graft (2000) ?Z95.1 - Presence of aortocoronary bypass graft (ICD-10) History of coronary artery stent placement (11/21/15) ?Z95.5 - Presence of coronary angioplasty implant and graft (ICD-10) Family History Father Stroke, Onset Age: 70 Prostate cancer Mother Diabetes Myocardial infarction, Onset Age: 65 Daughter Stroke, Onset Age: 36 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: , 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, 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 SMOKER: Tobacco abuse- 10/day, 32 pack years~ resolved 01/16 Does not exercise- active in garden and yard Social drinker- 2/week Past problems: Non-smoker- quit 2000, hx 30 pack years What is your current living situation?: I presently have a place to live Problems where you live: no known problems Problems where you live details: NA In the past 12 months, utilities in danger of being shut off: no In past 12 months, lack of transportation kept you from medical appts, meetings, work, or getting things needed for daily living: no In the past 12 mos, have been you worried that your food would run out before you had money to buy more?: never true In the past 12 mos, the food you bought just didn't last and you didn't have money to buy more?: never true Highest level of school completed/degree received: 12th grade, no diploma Smoking Status: Former smoker What tobacco products do you use: cigarettes Smoking quit date/years: <= 15 years ago Do you use any of these nicotine containing products: None Second hand tobacco smoke exposure: No How often do you have a drink containing alcohol: never How often do you have six or more drinks on one occasion: Never AUDIT-C Alcohol total score: 0 Non-prescribed substance use: denies use Caffeine: No How often does anyone, including family, friends and others, physically hurt you : never How often does anyone, including family, friends and others, insult or talk down to you: never How often does anyone, including family, friends and others, threaten you with harm: never How often does anyone, including family, friends and others, scream or curse at you: never Little interest or pleasure in doing things: several days Feeling down, depressed, or hopeless: not at all service: No Exam Const: Vital Signs, click to edit/add: Vital Signs - 24 hr 09/25/23 14:03 09/25/23 14:19 09/25/23 14:30 Temperature 98.5 F Pulse Rate 35 L 36 L Pulse Rate [Pulse Oximeter] 35 L Respiratory Rate 16 Blood Pressure Blood Pressure [Ri ght Upper Arm] 129/51 L Pulse Oximetry 96 97 97 Oxygen Delivery Me thod Room Air 09/25/23 14:32 09/25/23 14:45 09/25/23 14:50 Temperature Pulse Rate 36 L 34 L 36 L Pulse Rate [Pulse Oximeter] Respiratory Rate Blood Pressure 122/55 L 115/48 L Blood Pressure [Ri ght Upper Arm] Pulse Oximetry 95 95 94 Oxygen Delivery Me thod 09/25/23 14:52 09/25/23 14:53 09/25/23 15:00 Temperature Pulse Rate 41 L 64 60 Pulse Rate [Pulse Oximeter] Respiratory Rate Blood Pressure 124/59 L Blood Pressure [Ri ght Upper Arm] Pulse Oximetry 93 95 95 Oxygen Delivery Me thod 09/25/23 15:02 09/25/23 15:03 09/25/23 15:09 Temperature Pulse Rate 65 54 L Pulse Rate [Pulse Oximeter] Respiratory Rate 16 Blood Pressure 119/77 Blood Pressure [Ri ght Upper Arm] Pulse Oximetry 96 95 94 Oxygen Delivery Me thod 09/25/23 15:12 09/25/23 15:15 09/25/23 15:22 Temperature Pulse Rate 57 L 60 68 Pulse Rate [Pulse Oximeter] Respiratory Rate Blood Pressure 124/56 L 115/58 L Blood Pressure [Ri ght Upper Arm] Pulse Oximetry 94 92 94 Oxygen Delivery Me thod 09/25/23 15:30 09/25/23 15:45 Temperature Pulse Rate 70 51 L Pulse Rate [Pulse Oximeter] Respiratory Rate Blood Pressure Blood Pressure [Ri ght Upper Arm] Pulse Oximetry 93 97 Oxygen Delivery Me thod Course Vital Signs Vital signs: Initial Vital Signs Temperature 98.5 F 09/25/23 14:03 Temperature Source Temporal Artery Scan 09/25/23 14:03 Pulse Rate 35 L 09/25/23 14:03 Pulse Rhythm Regular 09/25/23 14:03 Pulse Strength 3+ Normal 09/25/23 14:03 Respiratory Rate 16 09/25/23 14:03 Blood Pressure 129/51 L 09/25/23 14:03 Blood Pressure Mean 77 09/25/23 14:03 Blood Pressure Position Semi-Fowlers 09/25/23 14:03 Pulse Oximetry 96 09/25/23 14:03 Oxygen Delivery Method Room Air 09/25/23 14:03 Vital Signs Temperature 98.5 F 09/25/23 14:03 Pulse Rate 35 L 09/25/23 14:03 Respiratory Rate 16 09/25/23 14:03 Blood Pressure 129/51 L 09/25/23 14:03 Pulse Oximetry 96 09/25/23 14:03 Oxygen Delivery Method Room Air 09/25/23 14:03 Temperature 98.5 F 09/25/23 14:03 Pulse Rate 51 L 09/25/23 15:45 Respiratory Rate 16 09/25/23 15:02 Blood Pressure 115/58 L 09/25/23 15:22 Pulse Oximetry 97 09/25/23 15:45 Oxygen Delivery Method Room Air 09/25/23 14:03 Medications Administered Medications: Discontinued Medications Generic Name Dose Route Start Last Admin Trade Name Thomasq PRN Reason Stop Dose Admin Sodium Chloride 1,000 mls @ 6,000 mls/hr 09/25/23 14:30 09/25/23 15:30 0.9 % Sodium Chloride 1000 Ml IV 09/25/23 14:39 Infused .Q10M LUÍS Infusion Medical Decision Making [facility] Narrative Medical decision making narrative: The patient is on metoprolol 100 mg daily but I suspect this is both for PVCs suppression, and her blood pressure today is actually quite good at 129/51, she has occasionally lower heart rates with the frequent PVCs are nonconducted but she does have periods of time where she is in the 60s and 70s as well. At this point her troponin is negative, will look at her other laboratory studies that these are reasonable I think she could probably be discharged home with careful observation and monitoring and follow-up with cardiology as an outpatient and her primary care doctor within the next couple of days. Addendum 3:52 p.m.: The patient continues to run frequent PVCs occasional bigeminy. She continues to run a good blood pressure. She feels better after some IV fluid. She does still have some loose stool however. A urinalysis was sent off as well. The patient really would like to try and go home. Her laboratory studies show an elevated white count in about the 100,000 range that is been the case in the past, and they been simply observing this she has been up to 97,000 in the past. She has a negative troponin, white count is elevated in the 100,000 range, her sodium is 133, calcium and magnesium are normal. LFTs are normal and troponin is negative as mention. Discussed keeping the patient for hydration and observation and telemetry, verses observation at home and she really wants to go home. I think that is not unreasonable. She has had frequent PVCs many times in the past and has seen Cardiology for this. I suspect that some of the reason she is on metoprolol is to control her PVCs. Would have her continue her same medications continue the prednisone taper, would have her follow-up with Dr. Her Leger in the next few days, and would set up a follow-up cardiology appointment. Will also put on a Holter monitor for 48 hours. She will return if there is problems or concerns. Discussed with she and her and they wished to go home. And they will come back if there is problems or concerns. Lab Data Labs: Lab Results 09/25/23 09/25/23 Range/Units 14:30 14:49 WBC 117.22 H* (4.50-11.00) K/uL RBC 3.59 L (4.00-5.20) m/uL Hgb 10.5 L (12.0-16.0) gm/dL Hct 35.2 (33.0-51.0) % MCV 98 (80-100) fL MCH 29 (26-34) pg MCHC 30 L (32-36) gm/dL RDW Coeff of Shabana 18.1 H (11.5-15.5) % Plt Count 223 (140-440) K/uL Neut % (Auto) 15.4 L (42.0-72.0) % Lymph % (Auto) 82.2 H (20-44) % [place] % (Auto) 1.3 (0.0-11.0) % Eos % (Auto) 0.0 (0.0-7.0) % Baso % (Auto) 0.1 (0.0-3.0) % Neut # (Auto) 18.10 H (1.7-7.0) K/uL Lymph # (Auto) 96.40 H (0.90-2.90) K/uL [place] # (Auto) 1.50 H (0.00-0.90) K/UL Eos # (Auto) 0.00 (0.00-0.50) K/uL Baso # (Auto) 0.10 (0.00-0.30) K/uL Abs Immat Gran (auto) 1.20 H (0.00-0.30) K/uL Imm/Tot Granulo (auto) 1.0 % Diff Slide Review Acceptable Review (Acceptable) Sodium 133 L (135-149) mmol/L Potassium 3.9 (3.6-5.1) mmol/L Chloride 99 (96-114) mmol/L Carbon Dioxide 28 (20-32) mmol/L Anion Gap 6 L (7-15) mEq/L BUN 20 (7-30) mg/dL Creatinine 0.7 (0.5-1.5) mg/dL Estimated Creat Clear 51.81 Estimated GFR 95 ml/min Glucose 183 H (60-115) mg/dL Calcium 9.4 (8.4-10.6) mg/dL Magnesium 1.8 (1.5-2.6) mg/dL Total Bilirubin 1.9 H (0.1-1.5) mg/dL Direct Bilirubin 0.1 (0.0-0.5) mg/dL AST 30 (12-35) U/L ALT 31 (4-35) U/L Alkaline Phosphatase 92 (40-150) U/L Total Protein 6.5 (6.0-8.3) g/dL Albumin 4.0 (3.3-5.0) g/dL POC Troponin I 0.02 (0.01-0.04) ng/ml Discharge Plan Discharge Clinical Impression: Asymptomatic PVCs, Bigeminy Patient Disposition: Home w/ Parent or Adult Condition: Stable Additional Instructions: Light activity, finish the steroid steroid taper, adequate fluid intake. Follow up with regular doctor next couple of days. Return to ED sooner problems or concerns. Follow up appointment is scheduled at the [facility] on 10/03 with a 2:30pm appointment time. Please check in at 2:20pm to complete paperwork. Follow up Cardiology appointment is also scheduled at the [facility] on 10/18 with an 8:30am appointment time. Please check in at 8:20am to complete paperwork. If you have any questions about either appointment or need to reschedule, please call [phone]. [facility] [address] [place] [address] Activity Level: Light activity Discharge Diet: Regular Prescriptions: No Action prednisone 10 mg tablet 10 mg PO DIRECTED Rx Instructions: see taper instructions aspirin 81 mg tablet,delayed release (DR/EC) 81 mg PO DAILY ascorbic acid (vitamin C) 500 mg tablet 500 mg PO DAILY albuterol sulfate 2.5 mg /3 mL (0.083 %) solution for nebulization 2.5 mg inhalation Q4H PRN fexofenadine [Rosangela Allergy] 180 mg tablet 180 mg PO DAILY magnesium oxide 400 mg (241.3 mg magnesium) Tablet 400 mg PO DAILY Qty: 30 0RF atorvastatin 40 mg tablet 40 mg PO HS metoprolol succinate 100 mg tablet extended release 24 hr 100 mg PO DAILY lisinopril 40 mg tablet 20 mg PO DAILY albuterol sulfate 90 mcg/actuation HFA aerosol inhaler 2 puff inhalation Q4H PRN (Reason: shortness of breath or wheezing) Qty: 25.5 1RF nitroglycerin 0.4 mg tablet, sublingual 0.4 mg sublingual Q5-15M PRN (Reason: chest pain) Qty: 30 0RF Rx Instructions: PRN CHEST PAIN Follow Up/Referrals: Katerine Bashir MD [Primary Care Provider] - Stand Alone Forms: [employer] Info Instructions
[2023-09-25] MEDS: 0.9 % SODIUM CHLORIDE 1000 ml 1,000 ML 6000 ML IV (14:51)
[2023-09-25 15:05] LABS: Troponin, Point-of-Care* 0.02 ng/ml (0.01-0.04)
--- NOTE | 2023-09-25 15:10 | ED.NURSE ---
MD notified that pulse ox is reading 35bpm, relocation director is reading 68bpm, and apical auscultation is 50bmp with irregularity. MD aware and has been looking at her history and recent illnesses. Awaiting for electrolyte results.
[2023-09-25 15:11] LABS: Basophils Percent Auto 0.1 % (0.0-3.0); Hematocrit 35.2 % (33.0-51.0); Hemoglobin* 10.5 gm/dL (12.0-16.0); Lymphocytes Percent Auto 82.2 % (20-44); Mean Corpuscular HGB Conc 30 gm/dL (32-36); Mean Corpuscular Hemoglobin 29 pg (26-34); Mean Corpuscular Volume 98 fL (80-100); Monocytes Percent Auto 1.3 % (0.0-11.0); Neutrophils Percent Auto 15.4 % (42.0-72.0); Platelet Count* 223 K/uL (140-440); RDW Coefficient of Variation % 18.1 % (11.5-15.5); Red Blood Count 3.59 m/uL (4.00-5.20)
[2023-09-25 15:28] LABS: Chloride* 99 mmol/L (96-114); Sodium* 133 mmol/L (135-149)
[2023-09-25 15:29] LABS: Potassium* 3.9 mmol/L (3.6-5.1)
[2023-09-25 15:31] LABS: Alanine Aminotransferase* 31 U/L (4-35); Alkaline Phosphatase* 92 U/L (40-150); Anion Gap 6 mEq/L (7-15); Aspartate Amino Transferase* 30 U/L (12-35); Bilirubin Direct* 0.1 mg/dL (0.0-0.5); Bilirubin Total* 1.9 mg/dL (0.1-1.5); Blood Urea Nitrogen* 20 mg/dL (7-30); Calcium* 9.4 mg/dL (8.4-10.6); Carbon Dioxide* 28 mmol/L (20-32); Creatinine* 0.7 mg/dL (0.5-1.5); Est. Creatinine Clearance* 51.81; Estimated Glomerular Filt Rate 95 ml/min; Glucose* 183 mg/dL (60-115); Total Protein* 6.5 g/dL (6.0-8.3)
[2023-09-25 15:32] LABS: Magnesium* 1.8 mg/dL (1.5-2.6)
--- NOTE | 2023-09-25 15:49 | PC.NURSE ---
Patient ambulated to bathroom with stand by assist. Patient had dried stool on her buttocks. Was cleaned up. Urinated 400cc of dark harry urine. MD met with patient and and patients desire is to go home.
[2023-09-25 16:00] LABS: Slide Review Reflex Yes; White Blood Count* 117.22 K/uL (4.50-11.00)
[2023-09-25 16:03] LABS: Slide Review Acceptable Review (Acceptable)
== END 2023-09-25 17:06 | disposition home or self-care (01) ==
PROVIDERS: Emergency Provider Family Medicine; PCP Family Medicine
DX: I49.3 Ventricular premature depolarization (principal); R00.8 Other abnormalities of heart beat
CPT/HCPCS: 36415; 80048; 80076; 82310; 83735; 84484; 85025; 93005; 93225; 93226; 94761; 99281; 99284; J7030

== ENCOUNTER 2023-11-01 12:01 | Outpatient (CLI) | payer MEDICARE, SELFPAY ==
[2023-11-02 20:14] LABS: HLA-B27 Negative (Negative)
[2023-11-02 23:21] LABS: Rheumatoid Factor 10 IU/mL (0-14)
[2023-11-03 00:18] LABS: Anti-Nuclear Ab(ANA)IgG ELISA None Detected (None Detected)
== END 2023-11-01 12:02 | disposition home or self-care (01) ==
PROVIDERS: PCP Family Medicine
DX: H20.011 Primary iridocyclitis, right eye (principal)
CPT/HCPCS: 36415; 86039; 86431; 86480; 86812

== ENCOUNTER 2023-11-19 07:32 | Outpatient (CLI) | payer MEDICARE, SELFPAY ==
--- OUTSIDE RECORDS SUMMARY | 2023-11-19 07:35 | XMS_ITS | Encounter Summary ---
Author Name Unknown Organization [facility] Address [address] [place] [address] Care Team Providers Care Freight Agent Name Role Phone Elsewhere, Pcp Primary Care Provider Unavailabl e Encounter Details Date Type Department Care Team (Latest Contact Info) Description 11/18/2023 8:00 AM PHYSICS FACULTY MEMBER Ancillary Procedure Department of Ophthalmology in [place], [place] [address] [place] [phone] Kenya Garza M.D. [address] [place] [phone] Panuveitis Right; Necrosis Retinal Acute Right Social History Tobacco Use Types Packs/Day Years Used Date Smoking Tobacco: Light Smoker Cigarettes 0.5 39 Started: 02/26/1980 Smokeless Tobacco: Never Comments:On again off again Alcohol Use Standard Drinks/Week Comments Yes 0 (1 standard drink = 0.6 oz pur e alcohol) [facility] Utilities Answer Date Recorded In the past 12 months has Earlier Media, gas, oil, or water Clinc! threatened to shut off services in your home? No 11/05/2023 Social Connection and Isolation Panel [NHANES] A nswer Date Recorded In a typical week, how many times do you talk on the phone with family, friends, or neighbors? Once a week 06/27/2020 How often do you get together with friends or re latives? Never 06/27/2020 How often do you attend muslim or adventism serv ices? Never 06/27/2020 Do you belong to any clubs o r organizations such as muslim groups, unions, fraternal or athletic groups, or school groups? No 06/27/2020 How often do you attend meet ings of the clubs or organizations you belong to? Never 06/27/2020 Are you , , di vorced, , never , or living with a partner? 06/27/2020 AUDIT-C Answer Date Recorded Q1: How often do you have a drink containing alc ohol? 2-3 times a week 06/27/2020 Q2: How many drinks containi ng alcohol do you have on a typical day when you are drinking? 1 or 2 06/27/2020 Q3: How often do you have si x or more drinks on one occasion? Never 06/27/2020 Overall Financial Resource Strain (CARDIA) Answe r Date Recorded How hard is it for you to pa y for the very basics like food, housing, medical care, and heating? Somewhat hard 06/27/2020 [facility] Winter of Occupat ional Health - Occupational Stress Questionnaire Answer Date Recorded Do you feel stress - tense, restless, nervous, or anxious, or unable to sleep at night because your mind is troubled all the time - these days? To some extent 06/27/2020 Exercise Vital Sign Answer Date Recorde d On average, how many days pe r week do you engage in moderate to strenuous exercise (like a brisk walk)? 1 day 11/05/2023 On average, how many minutes do you engage in exercise at this level? 10 min 11/05/2023 Hunger Vital Sign Answer Date Recorded Within the past 12 months, y ou worried that your food would run out before you got the money to buy more. Never true 11/05/19 24 Within the past 12 months, t he food you bought just didn't last and you didn't have money to get more. Never true 11/05/2023 PRAPARE - Transportation Answer Date Re corded In the past 12 months, has l ack of transportation kept you from medical appointments or from getting medications? No 06/2024 In the past 12 months, has l ack of transportation kept you from meetings, work, or from getting things needed for daily living? No 11/05/2023 Nutrition Answer Date Recorded Nutrition: EVOO Fat Source Unknown 11/05 On average, how many serving s of fruits and vegetables do you eat per day (serving size is equal to 1 cup or approximately the size of a tennis ball)? 0-2 11/05/2023 Dental Answer Date Recorded Dental: Regular Dentist No 11/05/19 24 Employment Answer Date Recorded Employment status Employed but not working due t o illness or injury 11/05/2023 Housing Stability Answer Date Recorded What is your living situation today? I have a [place] place to live 11/05/2023 Education Answer Date Recorded What is the highest level of school you have completed or the highest degree you have received? 12th grade 06/27/2020 Sex and Gender Information Value Date Recorded Sex Assigned at Female 07/06/2020 10:15 AM CDT Gender Identity Female 02/11/2019 3:24 PM CDT Sexual Orientation Straight 02/11/2019 3: 24 PM CDT documented as of this encounter Plan of Treatment Upcoming Encounters Date Type Department Care Team (Late st Contact Info) Description 11/25/2023 8:30 AM PHYSICS FACULTY MEMBER Ancillary Procedure Department of Ophthalmology in [place], [place] [address] [place] [phone] Kenya Garza M.D. [address] [place] [phone] 11/25/2023 9:00 AM PHYSICS FACULTY MEMBER Ancillary Procedure Department of Ophthalmology in [place], [place] [address] [place] [phone] Kenya Garza M.D. [address] [place] [phone] 11/25/2023 11:15 AM PHYSICS FACULTY MEMBER Ancillary Procedure Department of Ophthalmology in [place], [place] [address] [place] [phone] Kenya Garza M.D. [address] [place] [phone] 11/25/2023 11:45 AM PHYSICS FACULTY MEMBER Office Visit Department of Ophthalmology in [place], [place] [address] [place] [phone] Kenya Garza M.D. [address] [place] [phone] documented as of this encounter Procedures Procedure Name Priority Date/Time Associated Diagnosis Comments B SCAN - OD - RIGHT EYE Routine 11/18/2023 12:33 PM PHYSICS FACULTY MEMBER Panuveitis Right Necrosis Retinal Acute Right documented in this encounter Results * B-Scan Ultrasound - OD - Right Eye (11/18/2023 12:33 PM PHYSICS FACULTY MEMBER) Narrative OPHTHALMOLGY NON-IMAGING ORDERS - 11/18/2023 12:41 PM PHYSICS FACULTY MEMBER 11/18/2023 B scan right eye: ?? Moderate-dense vitreous opacities. ?? Unable to rule out shallow detachment vs subhyaloid opacities. ?No T sign noted. ?? [facility] Kenya Garza M.D. OPHTH ULTRASOUND OPHTHALMOLGY NON-IMAGING ORDERS documented in this encounter Visit Diagnoses Diagnosis Panuveitis Right Necrosis Retinal Acute Right documented in this encounter Care Teams Freight Agent Relationship Specialty Start Date End Date Elsewhere, Pcp PCP - General Internal Medicine 05/29/19 documented as of this encounter
--- OUTSIDE RECORDS SUMMARY | 2023-11-19 07:35 | XMS_ITS | Encounter Summary ---
Author Name Unknown Organization [facility] Address [address] [place] [address] Care Team Providers Care Attendance Secretary Name Role Phone Elsewhere, Pcp Primary Care Provider Unavailabl e Encounter Details Date Type Department Care Team (Late st Contact Info) Description 11/18/2023 7:55 AM REINFORCING ROD LAYER Ancillary Procedure Department of Ophthalmology Arrived Social History Tobacco Use Types Packs/Day Years Used Date Smoking Tobacco: Light Smoker Cigarettes 0.5 39 Started: 02/26/1980 Smokeless Tobacco: Never Comments:On again off again Alcohol Use Standard Drinks/Week Comments Yes 0 (1 standard drink = 0.6 oz pur e alcohol) [facility] Utilities Answer Date Recorded In the past 12 months has [employer] electric, gas, oil, or water company threatened to shut off services in your home? No 11/05/2023 Social Connection and Isolation Panel [NHANES] A nswer Date Recorded In a typical week, how many times do you talk on the phone with family, friends, or neighbors? Once a week 06/27/2020 How often do you get together with friends or re latives? Never 06/27/2020 How often do you attend nondenominational or sikh serv ices? Never 06/27/2020 Do you belong to any clubs o r organizations such as nondenominational groups, unions, fraternal or athletic groups, or [...] medical care, and heating? Somewhat hard 06/27/2020 [facility] - Occupational Stress Questionnaire Answer Date Recorded [...] your living situation today? [facility] 11/05/2023 Education Answer Date [...] st Contact Info) Description 11/25/2023 8:30 AM REINFORCING ROD LAYER Ancillary Procedure Department of Ophthalmology in [place], [place] [address] [place] [phone] Kenya Garza M.D. [address] [place] [phone] 11/25/2023 9:00 AM REINFORCING ROD LAYER Ancillary Procedure Department of Ophthalmology in [address] [phone] Kenya Garza M.D. [address] [place] [phone] 11/25/2023 11:15 AM REINFORCING ROD LAYER Ancillary Procedure Department of Ophthalmology in [address] [phone] Kenya Garza M.D. [address] [place] [phone] 11/25/2023 11:45 AM REINFORCING ROD LAYER Office Visit Department of Ophthalmology in [address] [phone] Kenya Garza M.D. [address] [place] [phone] documented as of this encounter Procedures Procedure Name Priority Date/Time Associated Diagnosis Comments OPHTHALMOLOGY IMAGE EXAM Routine 11/18/2023 7:55 AM REINFORCING ROD LAYER documented in this encounter Results * Generic Eye Procedure 200 R-Ophthalmology Image Exam (11/18/2023 7:55 AM REINFORCING ROD LAYER) 11/18/2023 7:54 AM REINFORCING ROD LAYER Narrative IIMS - 11/18/2023 8:14 AM REINFORCING ROD LAYER This order has been created and auto-finalized to support the import of images acquired without order. The clinical documentation to support these images can be found on the encounter that produced images. Provider Not In System IMG NON RAD IMAGI NG PROCEDURES IIMS NA documented in this encounter Visit Diagnoses Not on filedocumented in this encounter Care Teams Attendance Secretary Relationship Specialty Start Date End Date Elsewhere, Pcp PCP - General Internal Medicine 05/29/19 documented as of this encounter
--- OUTSIDE RECORDS SUMMARY | 2023-11-19 07:35 | XMS_ITS | Encounter Summary ---
Author Name Unknown Organization [facility] Address [address] [place] [address] Care Team Providers Care Architectural Coating Finisher Name Role Phone Elsewhere, Pcp Primary Care Provider Unavailabl e Encounter Details Date Type Department Care Team (Late st Contact Info) Description 11/11/2023 Ancillary Procedure Department of Ophthalmology Social History Tobacco Use Types Packs/Day Years Used Date Smoking Tobacco: Light Smoker Cigarettes 0.5 39 Started: 02/26/1980 Smokeless Tobacco: Never Comments:On again off again Alcohol Use Standard Drinks/Week Comments Yes 0 (1 standard drink = 0.6 oz pur e alcohol) [facility] Utilities Answer Date Recorded In the past 12 months has [employer] electric, gas, oil, or water company threatened [...] Never 06/27/2020 How often do you attend evangelical or jainism serv ices? Never 06/27/2020 Do you belong to any clubs o r organizations such as evangelical groups, unions, fraternal or athletic groups, or [...] medical care, and heating? Somewhat hard 06/27/2020 [facility] - Occupational Stress Questionnaire Answer Date Recorded [...] your living situation today? I have a [facility] place to live 11/05/2023 Education Answer [...] st Contact Info) Description 11/25/2023 8:30 AM FINANCIAL REP Ancillary Procedure Department of Ophthalmology in [place], [place] [address] [place] [phone] Kenya Garza M.D. [address] [place] [phone] 11/25/2023 9:00 AM FINANCIAL REP Ancillary Procedure Department of Ophthalmology in [place], [place] [address] [place] [phone] Kenya Garza M.D. [address] [place] [phone] 11/25/2023 11:15 AM FINANCIAL REP Ancillary Procedure Department of Ophthalmology in [place], [place] [address] [place] [phone] Kenya Garza M.D. [address] [place] [phone] 11/25/2023 11:45 AM FINANCIAL REP Office Visit Department of Ophthalmology in [place], [place] [address] [place] [phone] Kenya Garza M.D. [address] [place] [phone] documented as of this encounter Procedures Procedure Name Priority Date/Time Associated Diagnosis Comments OPHTHALMOLOGY IMAGE EXAM Routine 11/11/2023 12:00 AM FINANCIAL REP documented in this encounter Results * Eyes US-Eye [id number] Image Exam (11/11/2023 12:00 AM FINANCIAL REP) Narrative IIMS - 11/11/2023 11:20 AM FINANCIAL REP This order has been created and auto-finalized to support the import of images acquired without order. The clinical documentation to support these images can be found on the encounter that produced images. Provider Not In System IMG NON RAD IMAGI NG PROCEDURES IIMS NA documented in this encounter Visit Diagnoses Not on filedocumented in this encounter Care Teams Architectural Coating Finisher Relationship Specialty Start Date End Date Elsewhere, Pcp PCP - General Internal Medicine 05/29/19 documented as of this encounter
--- OUTSIDE RECORDS SUMMARY | 2023-11-19 07:35 | XMS_ITS | Encounter Summary ---
Author Name Unknown Organization [facility] Address [address] [place] [address] Care Team Providers Care Ball Point Splitter Name Role Phone Elsewhere, Pcp Primary Care Provider Unavailabl e Encounter Details Date Type Department Care Team (Late st Contact Info) Description 11/18/2023 Ancillary Procedure Department of Ophthalmology Arrived Social History Tobacco Use Types Packs/Day Years Used Date Smoking Tobacco: Light Smoker Cigarettes 0.5 39 Started: 02/26/1980 Smokeless Tobacco: Never Comments:On again off again Alcohol Use Standard Drinks/Week Comments Yes 0 (1 standard drink = 0.6 oz pur e alcohol) [facility] Utilities Answer Date Recorded In the past 12 months has e electric, gas, oil, or water company threatened [...] Never 06/27/2020 How often do you attend scientology or orthodox serv ices? Never 06/27/2020 Do you belong to any clubs o r organizations such as scientology groups, unions, fraternal or athletic groups, or [...] medical care, and heating? Somewhat hard 06/27/2020 [facility]at ional [facility] - Occupational Stress [...] your [facility] situation today? [facility] 11/05/2023 Education Answer Date [...] st Contact Info) Description 11/25/2023 8:30 AM ELECTROGALVANIZING MACHINE OPERATOR Ancillary Procedure Department of Ophthalmology in [place], [place] [address] [place] [phone] Kenya Garza M.D. [address] [place] [phone] 11/25/2023 9:00 AM ELECTROGALVANIZING MACHINE OPERATOR Ancillary Procedure Department of Ophthalmology in [place], [place] [address] [place] [phone] Kenya Garza M.D. [address] [place] [phone] 11/25/2023 11:15 AM ELECTROGALVANIZING MACHINE OPERATOR Ancillary Procedure Department of Ophthalmology in [place], [place] [address] [place] [phone] Kenya Garza M.D. [address] [place] [phone] 11/25/2023 11:45 AM ELECTROGALVANIZING MACHINE OPERATOR Office Visit Department of Ophthalmology in [place], [place] [address] [place] [phone] Kenya Garza M.D. [address] [place] [phone] documented as of this encounter Procedures Procedure Name Priority Date/Time Associated Diagnosis Comments OPHTHALMOLOGY IMAGE EXAM Routine 11/18/2023 12:00 AM ELECTROGALVANIZING MACHINE OPERATOR documented in this encounter Results * Eyes US-Eye [id number] Image Exam (11/18/2023 12:00 AM ELECTROGALVANIZING MACHINE OPERATOR) Narrative IIMS - 11/18/2023 12:25 PM ELECTROGALVANIZING MACHINE OPERATOR This order has been created and auto-finalized to support the import of images acquired without order. The clinical documentation to support these images can be found on the encounter that produced images. Provider Not In System IMG NON RAD IMAGI NG PROCEDURES IIMS NA documented in this encounter Visit Diagnoses Not on filedocumented in this encounter Care Teams Ball Point Splitter Relationship Specialty Start Date End Date Elsewhere, Pcp PCP - General Internal Medicine 05/29/19 documented as of this encounter
--- OUTSIDE RECORDS SUMMARY | 2023-11-19 07:35 | XMS_ITS | Encounter Summary ---
Author Name Unknown Organization [facility] Address [address] [place] [address] Care Team Providers Care Financial Compliance Examiner Name Role Phone Elsewhere, Pcp Primary Care Provider Unavailabl e Encounter Details Date Type Department Care Team (Latest Contact Info) Description 11/18/2023 7:30 AM DYEHOUSE WORKER Ancillary Procedure Department of Ophthalmology in [place], [place] [address] [place] [phone] Kenya Garza M.D. [address] [place] [phone] Panuveitis Right; Necrosis Retinal Acute Right Social History Tobacco Use Types Packs/Day Years Used Date Smoking Tobacco: Light Smoker Cigarettes 0.5 39 Started: 02/26/1980 Smokeless Tobacco: Never Comments:On again off again Alcohol Use Standard Drinks/Week Comments Yes 0 (1 standard drink = 0.6 oz pur e alcohol) [facility] Utilities Answer Date Recorded In the past 12 months has [employer], gas, oil, or water [employer] threatened to shut off services in your home? No 11/05/2023 Social Connection and Isolation Panel [NHANES] A nswer Date Recorded In a typical week, how many times do you talk on the phone with family, friends, or neighbors? Once a week 06/27/2020 How often do you get together with friends or re latives? Never 06/27/2020 How often do you attend orthodoxy or hoahaoism serv ices? Never 06/27/2020 Do you belong to any clubs o r organizations such as orthodoxy groups, unions, fraternal or athletic groups, or [...] medical care, and heating? Somewhat hard 06/27/2020 [facility] of Occupat ional Health - Occupational Stress [...] st Contact Info) Description 11/25/2023 8:30 AM DYEHOUSE WORKER Ancillary Procedure Department of Ophthalmology in [place], [place] [address] [place] [phone] Kenya Garza M.D. [address] [place] [phone] 11/25/2023 9:00 AM DYEHOUSE WORKER Ancillary Procedure Department of Ophthalmology in [place], [place] [address] [place] [phone] Kenya Garza M.D. [address] [place] [phone] 11/25/2023 11:15 AM DYEHOUSE WORKER Ancillary Procedure Department of Ophthalmology in [place], [place] [address] [place] [phone] Kenya Garza M.D. [address] [place] [phone] 11/25/2023 11:45 AM DYEHOUSE WORKER Office Visit Department of Ophthalmology in [place], [place] [address] [place] [phone] Kenya Garza M.D. [address] [place] [phone] documented as of this encounter Procedures Procedure Name Priority Date/Time Associated Diagnosis Comments FUNDUS PHOTOS - OD - RIGHT EYE Routine 11/18/2023 8:05 AM DYEHOUSE WORKER Panuveitis Right Necrosis Retinal Acute Right documented in this encounter Results * Fundus Photos - OD - Right Eye (11/18/2023 8:05 AM DYEHOUSE WORKER) Narrative OPHTHALMOLOGY IMAGING EXAM - 11/18/2023 10:45 AM DYEHOUSE WORKER Field of view is ultra-wide view. Fundus photo type obtained is Color, Autofluorescence. Notes [employer] color photos: confirm exam findings Kenya Garza M.D. OPHTH PHOTOGRAPHY OPHTHALMOLOGY IMAGING EXAM documented in this encounter Visit Diagnoses Diagnosis Panuveitis Right Necrosis Retinal Acute Right documented in this encounter Care Teams Financial Compliance Examiner Relationship Specialty Start Date End Date Elsewhere, Pcp PCP - General Internal Medicine 05/29/19 documented as of this encounter
--- OUTSIDE RECORDS SUMMARY | 2023-11-19 07:35 | XMS_ITS ---
Author Name Unknown Organization [facility] Address [address] [place] [address] Care Team Providers Care Hearing Therapy Teacher Name Role Phone Unavailable Unavailable Unavailable Surgery Details Not on file Complications Check Surgery Details section. Procedure Estimated Blood Loss Check Surgery Details section. Procedure Findings Check Surgery Details section. Procedure Specimens Taken Check Surgery Details section.
--- OUTSIDE RECORDS SUMMARY | 2023-11-19 07:35 | XMS_ITS | Clinical Summary ---
Author Name Unknown Organization [facility] Address [address] [place] [id number] Care Team Providers Care Insurance Agency Manager Name Role Phone Elsewhere, Pcp Primary Care Provider Unavailabl e Source Comments Patient records contain information from all sites at [facility]. For routine questions regarding patient records, call [phone] during business hours, M-F 8:00 AM - 5:00 PM Central Time. Record requests for emergency care only can be directed to [phone] at any time.[facility] Allergies No known active allergies Medications Medication Sig Dispensed Refills Start Date End Date Status atorvastatin (LIPITOR) 40 mg tablet Take 40 mg by mouth daily. 0 6 Active lisinopril (PRINIVIL,ZESTR IL) 40 mg tablet Take 20 mg by mouth daily. 0 7 Active aspirin (ADULT LOW DOSE ASPIRIN) [address] tablet Take 81 mg by mouth daily. 0 Active fluticasone propionate (FLONASE) 50 mcg/actuation nasal spray Administer 2 sprays into each nostril daily. 0 9 Active cetirizine-pseu doephedrine (ZyrTEC-D) 5-120 mg per 12 hr tablet daily. 0 9 Active metoprolol succinate (TOPROL-XL) 100 mg 24 hr tabletIndicatio ns:Beat Premature Ventricular,Cor onary Artery Disease Without Angina Pectoris Take 1 tablet (100 mg total) by mouth daily. 90 tablet 3 0 Active albuterol inhaler 0 0 Active ipratropium-alb uteroL (DUONEB) 0.5-2.5 mg/3 mL nebulizer solution INHALE ONE VIAL VIA NEBULIZER EVERY 4 HOURS FOR 3 DAYS AND THEN CAN DECREASE TO NEEDED. 0 0 Active predniSONE (DELTASONE) 20 mg tabletIndicatio ns:Chronic Obstructive Pulmonary Disease (HCC) Take 2 tablets (40 mg total) by mouth daily. 10 tablet 0 0 Active umeclidinium-vi lanteroL (ANORO ELLIPTA) 62.5-25 mcg/actuation inhalerIndicati ons:Chronic Obstructive Pulmonary Disease (HCC) Inhale 1 puff once daily. 1 each 11 0 Active prednisoLONE acetate (PRED FORTE) 1 % ophthalmic suspension Administer 1 drop into the right eye every hour while awake. 0 4 Active valACYclovir (VALTREX) 1000 mg tablet Take 1 tablet (1,000 mg total) by mouth 3 (three) times a day. 42 tablet 1 4 Active difluprednate (DUREZOL) 0.05 % ophthalmic emulsion Administer 1 drop into the right eye 4 (four) times a day. Stop prednisolone when you start difluprednate 5 mL 3 4 Active cyclopentolate (CYCLOGYL) 1 % ophthalmic solution Administer 1 drop into the right eye 3 (three) times a day. 15 mL 1 4 Active metFORMIN (GLUCOPHAGE) 1,000 mg tablet Take 1,000 mg by mouth daily. 0 6 11/05/19 24 Discontinued cholecalciferol (VITAMIN D3) 1,000 Unit capsule Take 1,000 mg by mouth 2 (two) times a day. 0 11/05/19 24 Discontinued hydroCHLOROthia zide (HYDRODIURIL) 25 mg tablet Take 25 mg by mouth daily. 0 11/05/19 24 Discontinued glipiZIDE (GLUCOTROL XL) 5 mg 24 hr tablet Take 5 mg by mouth daily. 0 6 11/05/19 24 Discontinued clopidogrel (PLAVIX) 75 mg tablet Take 75 mg by mouth daily. 0 6 11/05/19 24 Discontinued Spiriva Respimat 2.5 mcg/actuation inhaler 2 puffs daily. 0 0 11/05/19 24 Discontinued glipiZIDE (GLUCOTROL XL) 5 mg 24 hr tablet Take 5 mg by mouth. 0 1 11/05/19 24 Discontinued hydroCHLOROthia zide (HYDRODIURIL) 25 mg tablet Take 25 mg by mouth. 0 1 11/05/19 24 Discontinued lisinopriL (PRINIVIL,ZESTR IL) 40 mg tablet Take 40 mg by mouth. 0 1 11/05/19 24 Discontinued metFORMIN (GLUCOPHAGE) 1,000 mg tablet Take 1,000 mg by mouth. 0 1 11/05/19 24 Discontinued cyclopentolate (CYCLOGYL) 1 % ophthalmic solution INSTILL 1 DROP IN THE RIGHT EYE 4 TIMES A DAY 0 3 11/11/19 24 Discontinued(Reo rder) cyclopentolate HCl (cyclopentolate -ofloxacin-phen ylephrine in hypromellose) 0.1-0.06-1% ophthalmic solution 0 3 11/05/19 24 Discontinued(The rapy completed) Hospital, Clinic, or Other Facility Administered Medication Ordered Dose Route Frequency Start Date End Date Status ganciclovir intraocular injection 2,000 mcg (CYTOVENE)Indications:Uveitis 2000 mcg vtre As needed 11/05/2023 Active foscarnet 2,400 mcg/0.1 mL intraocular injection 2,400 mcg (FOSCAVIR)Indications:Uveitis 2400 mcg vtre As needed 11/05/2023 Active Active Problems Problem Noted Date Diagnosed Date 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/2023 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 Beat Premature Ventricular 03/05/2019 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 Panuveitis Right (Primary Dx); Necrosis Retinal Acute Right 11/18/2023 8:00 AM HOST COORDINATOR Ancillary Procedure Department of Ophthalmology in [place], [place] [address] [place] [address] Kenya Garza M.D. Panuveitis Right; Necrosis Retinal Acute Right 11/18/2023 7:55 AM HOST COORDINATOR Ancillary Procedure Department of Ophthalmology Arrived 11/18/2023 7:30 AM HOST COORDINATOR Ancillary Procedure Department of Ophthalmology in [place], [place] [address] [place] [address] Kenya Garza M.D. Panuveitis Right; Necrosis Retinal Acute Right 11/18/2023 12:05 AM HOST COORDINATOR Ancillary Procedure Department of Ophthalmology Arrived 11/18/2023 Ancillary Procedure Department of Ophthalmology Arrived 11/11/2023 11:15 AM HOST COORDINATOR Office Visit Department of Ophthalmology in [place], [place] [address] [place] [phone] Kenya Garza M.D. Panuveitis Right (Primary Dx); 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/2023 10:00 AM HOST COORDINATOR Ancillary Procedure Department of Ophthalmology in [place], [place] [address] [place] [address] Kenya Garza M.D. Panuveitis Right 11/11/2023 Ancillary Procedure Department of Ophthalmology 11/07/2023 11:30 AM HOST COORDINATOR Office Visit Department of Ophthalmology in [place], [place] [address] [place] [phone] Kenya Garza M.D. Panuveitis Right (Primary Dx) 11/06/2023 Orders Only Department of Ophthalmology in [place], [place] [address] [place] [phone] Kenya Garza M.D. 11/05/2023 3:53 PM HOST COORDINATOR - 11/05/2023 11:59 PM HOST COORDINATOR Hospital Encounter Department of Laboratory Medicine and Pathology, [facility], in [place], [place] [address] [place] [address] Kenya Garza M.D. Uveitis Discharge Disposition: Home or Self Care 11/05/2023 1:30 PM HOST COORDINATOR Comprehensive Visit Department of Ophthalmology in [place], [place] [address] [place] [address] Kenya Garza M.D. Panuveitis Right (Primary Dx); Uveitis 11/05/2023 10:50 AM HOST COORDINATOR Ancillary Procedure Department of Ophthalmology in [place], [place] [address] [place] [address] Kenya Garza M.D. Uveitis 11/05/2023 12:05 AM HOST COORDINATOR Ancillary Procedure Department of Ophthalmology 11/05/2023 Orders Only Department of Ophthalmology in [place], [place] [address] [place] [address] Shahnaz Amato, C.O.AWhitney Uveitis (Primary Dx) 11/05/2023 Ancillary Procedure Department of Ophthalmology 11/05/2023 Episode Changes Department of Ophthalmology in [place], [place] [address] [place] [address] Gladys Ponce 11/05/2023 Clinical Communication Department of Ophthalmology in [place], [place] [address] [place] [phone] Kenya Garza M.D. 11/05/2023 Clinical Communication Department of Ophthalmology in [place], [place] [address] [place] [phone] Kenya Garza M.D. 11/04/2023 Orders Only Department of Ophthalmology in [place], [place] [address] [place] [address] Shahnaz Amato, C.O.AWhitney Uveitis (Primary Dx) 11/01/2023 Clinical Communication Department of Ophthalmology in [place], [place] [address] [place] [address] Kenya Garza M.D. from Last 3 Months Family History Medical History Relation Name Comments Lymphoma Brother Kannan Hawkinshora 2018 Prostate cancer Father Podhora 2001 Stroke Father Podhora Coronary artery disease Mother Afia Hawkinsleatha Not sure of dates no bypass Diabetes Mother Afia Rosshora Heart attack Mother Afia Morelia Relation Name Status Comments Brother Kannan Podhora Father Podhora Mother Afia Morelia Social History Tobacco Use Types Packs/Day Years Used Date Smoking Tobacco: Light Smoker Cigarettes 0.5 39 Started: 02/26/1980 Smokeless Tobacco: Never Comments:On again off again Alcohol Use Standard Drinks/Week Comments Yes 0 (1 standard drink = 0.6 oz pur e alcohol) [facility] Utilities Answer Date Recorded In the past 12 months has th e electric, gas, oil, or water company [...] How often do you attend orthodoxy or jehovah's witness serv ices? Never 06/27/2020 Do you belong [...] medical care, and heating? Somewhat hard 06/27/2020 [facility] [place] of Occupat ional Health - Occupational Stress [...] Date Recorded Dental: Regular Dentist No 11/05/19 Employment Answer Date Recorded Employment status Employed but not working due t o illness or injury 11/05/2023 Housing Stability Answer Date Recorded What is your living situation today? I have a [facility] place to live 11/05/2023 Education Answer Date Recorded What is the highest level of school you have completed or the highest degree you have received? 12th grade 06/27/2020 Sex and Gender Information Value Date Recorded Sex Assigned at Female 07/06/2020 10:15 AM CDT Gender Identity Female 02/11/2019 3:24 PM CDT Sexual Orientation Straight 02/11/2019 3: 24 PM CDT Last Filed Vital Signs Vital Sign Reading Time Taken Comments Blood Pressure 165/82 06/29/2020 1:54 PM CDT Pulse 74 06/29/2020 1:54 PM CDT Temperature 36.3 ??C (97.3 ??F) 06/29/2020 1:54 PM CD T Respiratory Rate - - Oxygen Saturation 93% 06/29/2020 1:54 PM CDT Inhaled Oxygen Concentration - - Weight 87.2 kg (192 lb 3.9 oz) 06/29/2020 1:54 P M CDT Height 166.7 cm (5' 5.63) 06/29/2020 1:54 PM CD T Body Mass Index 31.38 06/29/2020 1:54 PM CDT Plan of Treatment Upcoming Encounters Date Type Department Care Team (Late st Contact Info) Description 11/25/2023 8:30 AM HOST COORDINATOR Ancillary Procedure Department of Ophthalmology in [place], [place] [address] [place] [phone] Kenya Garza M.D. [address] [place] [phone] 11/25/2023 9:00 AM HOST COORDINATOR Ancillary Procedure Department of Ophthalmology in [place], [place] [address] [place] [phone] Kenya Garza M.D. [address] [place] [phone] 11/25/2023 11:15 AM HOST COORDINATOR Ancillary Procedure Department of Ophthalmology in [place], [place] [address] [place] [phone] Kenya Garza M.D. [address] [place] [phone] 11/25/2023 11:45 AM HOST COORDINATOR Office Visit Department of Ophthalmology in [place], [place] [address] [place] [phone] Kenya Garza M.D. [address] [place] [phone] Health Maintenance Due Date Last Done Comments Bone Density Scan (Osteoporo sis Screen) 1957 CT Colonography 1957 Colonoscopy 1957 FIT 1957 Hepatitis C Screening 1957 Lipid (Cholesterol) Screening 1957 Mammogram 1957 Office Visit for Blood Press ure Check / Re-check 1957 COVID-19 Vaccine (4 2022-2 4 season) 2023 07/18/2021, 02/14/2021, 01/24/2021 Depression Screening (Annual PHQ-2) 10/28/2023 Fall Risk Screen (Annual) 10/28/2023 Creatinine Level (Kidney Fun ction Test) 11/05/2024 11/05/2023, 09/13/2023, 09/12/2023, Additional history exists Potassium Level 11/05/2024 11/05/2023, 08/28, 09/12/2023, Additional history exists Sodium Level 11/05/2024 11/05/2023, 08/28, 09/12/2023, Additional history exists Cologuard 04/05/2025 04/05/2022 Colorectal Cancer Screening 04/05/2025 Fasting Glucose for Diabetes Screening 11/05/2026 11/05/2023, 09/13/2023, 09/12/2023 DTaP,Tdap,and Td Vaccines (3 - Td or Tdap) 06/24/2028 06/24/2018, 03/08/2009 Cervical Cancer Screening Discontinued 08/14/2019 Zoster Vaccines Completed 02/23/2022, 07/04/2021 Pneumococcal vaccine (65+ years) Completed 01/24/20, 06/24/2018 Influenza Vaccine Completed 07/23/2023, , 08/14/2019, Additional history exists Procedures Procedure Name Priority Date/Time Associated Diagnosis Comments B SCAN - OD - RIGHT EYE Routine 11/18/19 12:33 PM HOST COORDINATOR Panuveitis Right Necrosis Retinal Acute Right FUNDUS PHOTOS - OD - RIGHT EYE Routine 11/18/2023 8:05 AM HOST COORDINATOR Panuveitis Right Necrosis Retinal Acute Right OPHTHALMOLOGY IMAGE EXAM Routine 11/18/2023 7:55 AM HOST COORDINATOR OPHTHALMOLOGY IMAGE EXAM Routine 11/18/2023 12:05 AM HOST COORDINATOR OPHTHALMOLOGY IMAGE EXAM Routine 11/18/2023 12:00 AM HOST COORDINATOR B SCAN - OD - RIGHT EYE Routine 11/11/19 11:24 AM HOST COORDINATOR Panuveitis Right OPHTHALMOLOGY IMAGE EXAM Routine 11/11/2023 12:00 AM HOST COORDINATOR INTRAVITREAL INJECTION, PHARMACOLOGIC AGENT - OD - RIGHT EYE Routine 11/05/2023 6:27 PM HOST COORDINATOR Uveitis OPTICAL COHERENCE TOMOGRAPHY - MACULA/RETINA - OU - BOTH EYES Routine 11/05/2023 4:39 PM HOST COORDINATOR Uveitis VARICELLA-ZOSTER VIRUS PCR, V Routine 11/05/2023 4:22 PM HOST COORDINATOR Uveitis HERPES SIMPLEX VIRUS PCR Routine 11/05/2023 4:22 PM HOST COORDINATOR Uveitis CYTOMEGALOVIRUS PCR Routine 11/05/2023 4 :22 PM HOST COORDINATOR Uveitis SPSMA RESULT Routine 11/05/2023 4:03 PM HOST COORDINATOR HEMATOPATHOLOGY REVIEW Routine 4:03 PM HOST COORDINATOR COMPREHENSIVE METABOLIC PANEL, S/P Routine 11/05/2023 4:03 PM HOST COORDINATOR Uveitis CBC WITH DIFFERENTIAL, B Routine 11/05/2023 4:03 PM HOST COORDINATOR Uveitis B SCAN - OD - RIGHT EYE Routine 11/05/19 1:08 PM HOST COORDINATOR Uveitis OPHTHALMOLOGY IMAGE EXAM Routine 11/05/2023 12:05 AM HOST COORDINATOR OPHTHALMOLOGY IMAGE EXAM Routine 11/05/2023 12:00 AM HOST COORDINATOR from Last 3 Months Results * B-Scan Ultrasound - OD - Right Eye (11/18/2023 12:33 PM HOST COORDINATOR) [facility] OPHTHALMOLGY NON-IMAGING ORDERS - 11/18/2023 12:41 PM HOST COORDINATOR 11/18/2023 B scan right eye: ?? Moderate-dense vitreous opacities. ?? Unable to rule out shallow detachment vs subhyaloid opacities. ?No T sign noted. ?? [facility]. Kenya Garza M.D. OPHTH ULTRASOUND Performing Organization Address [facility] de Phone Number OPHTHALMOLGY NON-IMAGING ORDERS * Fundus Photos - OD - Right Eye (11/18/2023 8:05 AM HOST COORDINATOR) Narrative OPHTHALMOLOGY IMAGING EXAM - 11/18/2023 10:45 AM HOST COORDINATOR Field of view is ultra-wide view. Fundus photo type obtained is Color, Autofluorescence. Notes KX Optos color photos: confirm exam findings Kenya Garza M.D. OPHTH PHOTOGRAPHY Performing Organization Address [facility] de Phone Number OPHTHALMOLOGY IMAGING EXAM * Generic Eye Procedure 200 R-Ophthalmology Image Exam (11/18/2023 7:55 AM HOST COORDINATOR) Only the most recent of6 resultswithin the time period is included. 11/18/2023 7:54 AM HOST COORDINATOR Narrative IIMS - 11/18/2023 8:14 AM HOST COORDINATOR This order has been created and auto-finalized to support the import of images acquired without order. The clinical documentation to support these images can be found on the encounter that produced images. Provider Not In System IMG NON RAD IMAGI NG PROCEDURES Performing Organization Address [facility] de Phone Number IIMS NA * B-Scan Ultrasound - OD - Right Eye (11/11/2023 11:24 AM HOST COORDINATOR) Narrative OPHTHALMOLGY NON-IMAGING ORDERS - 11/11/2023 2:56 PM HOST COORDINATOR 11/11/2023 B scan right eye: Moderate-dense vitreous opacities. ??Vitreous membranes. ?Possible posterior thickening. ?? No T sign. ?? [facility] Kenya Garza M.D. OPHTH ULTRASOUND Performing Organization Address [facility] de Phone Number OPHTHALMOLGY NON-IMAGING ORDERS * Intravitreal Injection, Pharmacologic Agent - OD - Right Eye (11/05/2023 6:27 PM HOST COORDINATOR) Narrative OPHTHALMOLGY NON-IMAGING ORDERS - 11/05/2023 6:27 PM HOST COORDINATOR Pre-Procedure Verification Pre-procedure verification conducted to verify correct patient identity, procedure to be performed and, as applicable, correct side and site. Patient consent obtained. 11/05/2023. Time Out Confirmed correct patient, procedure, site, and patient consented. Anesthesia Topical anesthesia was used. Pre/Post Procedure prep and meds used were Lidocaine 4% 1 - 10 drops, Povidone 5% 1-10 drops, Povidone 10% swabs x 3 to lids and lashes, Proparacaine 0.5% 1-10 drops. Procedure Details Injection: 2,400 mcg foscarnet 2,400 mcg/0.1 mL ??Route: intravitreal, Site: Right Eye ??[facility]: 2658-3541-63, Lot: [id number], Expiration date: 11/09/2023 2,000 mcg ganciclovir 2000 mcg/0.05 mL ??Route: intravitreal, Site: Right Eye ??[facility]: 2245-4725-12, Lot: [id number], Expiration date: 11/06/2023 Anterior Chamber Tap was Done. Balanced salt solution irrigation to injected eye after the injection was Done. Notes An anterior chamber paracentesis was performed first - approximately 150 uL of yellow liquid was aspirated. The injections were performed in the inferotemporal quadrant immediately after the anterior chamber tap. Kenya Garza M.D. OPHTH CLINIC PROCEDU RES OPHTHALMOL NON-IMAGING ORDERS * Optical Coherence Tomography - Macula/Retina - OU - Both Eyes (11/05/2023 4:39 PM HOST COORDINATOR) CMT L Microns 256 um OPH THALMOLOGY IMAGING EXAM Narrative OPHTHALMOLOGY IMAGING EXAM - 11/05/2023 6:25 PM HOST COORDINATOR Right Eye Reliability was good. OCT device used was Spectralis . Scan locations included macula. Left Eye Reliability was good. OCT device used was Spectralis . Scan locations included macula. Central macular thickness 256 um. Notes SMG RIGHT - irregular thickening. Significant inner retinal wrinkling with choroidal undulations and thickening. Multiple deposits of material on the posterior hyaloid face, copious debris visible in the posterior vitreous/preretinal space, large pre-retinal hyperreflective deposits. LEFT - overall normal macular thickness, intact foveal depression and retinal layers, no intra or subretinal fluid. Attached posterior hyaloid. Choroid is not thickened. Kenya Garza M.D. OPHTH TOMOGRAPHY OPHTHALMOLOGY IMAGING EXAM * Varicella-Zoster Virus PCR (11/05/2023 4:22 PM HOST COORDINATOR) Specimen Source right eye 3:52 PM HOST COORDINATOR DTL Comment: The volume/amount received was suboptimal, and therefore, the sample was diluted to the appropriate volume for testing. A negative result should not rule out the disease. Varicella-Zoster Virus PCR Negative Negative 11/07/2023 3:52 PM HOST COORDINATOR DTL Comment: A suboptimal volume of specimen was received, and therefore, the sample was diluted to the appropriate volume for testing. A negative result does not rule out infection. ----ADDITIONAL INFORMATION---- This test was developed and its performance characteristics determined by [facility] in a manner consistent with CLIA requirements. This test has not been cleared or approved by the U.S. Food and Drug Administration. Fluid (Aqueous Humor, Right) 11/05/2023 4:22 PM HOST COORDINATOR 11/05/2023 6:26 PM HOST COORDINATOR Kenya Garza M.D. LAB MICROBIOLOGY - G ENERAL ORDERABLES [facility] [address] [place] [address], [place] DTL [address] [place] [address] * Cytomegalovirus PCR (11/05/2023 4:22 PM HOST COORDINATOR) Specimen Source right eye 3:08 PM HOST COORDINATOR DTL Comment: The volume/amount received was suboptimal, and therefore, the sample was diluted to the appropriate volume for testing. A negative result should not rule out the disease. Cytomegalovirus PCR Negative Negative 11/07 3:08 PM HOST COORDINATOR DTL Comment: A suboptimal volume of specimen was received, and therefore, the sample was diluted to the appropriate volume for testing. A negative result does not rule out infection. ----ADDITIONAL INFORMATION---- This test was developed and its performance characteristics determined by [facility] in a manner consistent with CLIA requirements. This test has not been cleared or approved by the U.S. Food and Drug Administration. Fluid (Aqueous Humor, Right) 11/05/2023 4:22 PM HOST COORDINATOR 11/05/2023 6:26 PM HOST COORDINATOR Kenya Garza M.D. LAB MICROBIOLOGY - G ENERAL ORDERABLES Performing Organization Address City/[facility]/ZIP Co de Phone Number [facility] [address] [place] [address], [facility] DT 200 [facility] [address] [place] [address] * (ABNORMAL) Herpes Simplex Virus PCR (11/05/2023 4:22 PM HOST COORDINATOR) Specimen Source right eye 9:33 PM HOST COORDINATOR DTL Comment: The volume/amount received was suboptimal, and therefore, the sample was diluted to the appropriate volume for testing. A negative result should not rule out the disease. HSV 1, PCR Negative Negative 11/07/2023 9:33 PM HOST COORDINATOR DTL HSV 2, PCR Positive(C) Negative 11/07/2023 9:33 PM HOST COORDINATOR DTL Comment: ----ADDITIONAL INFORMATION---- This test was developed and its performance characteristics determined by [facility] in a manner consistent with CLIA requirements. This test has not been cleared or approved by the U.S. Food and Drug Administration. Fluid (Aqueous Humor, Right) 11/05/2023 4:22 PM HOST COORDINATOR 11/05/2023 6:26 PM HOST COORDINATOR Kenya Garza M.D. LAB MICROBIOLOGY - G ENERAL ORDERABLES [facility] [address] [place] [address], [facility] DTL 200 [facility] [address] [place] [address] * Hematopathology Review (11/05/2023 4:03 PM HOST COORDINATOR) Report electronically signed by Prakash Holguin M.D. I verify that I have examined all relevant slides/materi als for the specimen(s) and rendered or confirmed the diagnosis. 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 11/06/2023 12:30 PM HOST COORDINATOR DHPM Blood 11/05/2023 4:03 PM HOST COORDINATOR 11/05/2023 4:24 PM HOST COORDINATOR Kenya Garza M.D. LAB PATHOLOGY/CYTOLO GY ORDERABLES Performing Organization Address City/[facility]/ZIP Co de Phone Number [facility] [address] [place] [address], [facility] DH 200 [facility] [address] [place] [address] * (ABNORMAL) SPSMA Result (11/05/2023 4:03 PM HOST COORDINATOR) Neutrophilic Segs and Bands 32(L) 50 - 75 % 11/06/2023 1:02 PM HOST COORDINATOR DHPM Lymphocytes 63(H) 18 - 42 % 11/06/2023 1:02 PM HOST COORDINATOR DHPM Monocytes 2 2 - 11 % 11/06/2023 1:02 PM HOST COORDINATOR DHPM Eosinophils 1 1 - 3 % 11/06/2023 1:02 PM HOST COORDINATOR DHPM Basophils 2 0 - 2 % 11/06/2023 1:02 PM HOST COORDINATOR DHPM Fragile Cells Slight 11/06/2023 1:02 PM HOST COORDINATOR DHPM Manual Absolute Neutrophil Count 7.17(H) 1.56 - 6.45 x10(9)/L 11/06/2023 1:02 PM HOST COORDINATOR DHPM Comment: ----ADDITIONAL INFORMATION---- The manual absolute neutrophil count is derived from a manual differential count and therefore is not exactly comparable to the automated absolute neutrophil count. Blood 11/05/2023 4:03 PM HOST COORDINATOR 11/05/2023 4:24 PM HOST COORDINATOR Kenya Garza M.D. LAB BLOOD ADD-ON [facility] [address] [place] [address], [facility] [address] [place] [address] * (ABNORMAL) CBC with Differential, Blood (11/05/2023 4:03 PM HOST COORDINATOR) Pathologist [facility] Hemoglobin 12.2 11.6 - 15.0 g/dL 11/05/2023 4:32 PM HOST COORDINATOR DTL Hematocrit 38.7 35.5 - 44.9 % 11/05/2023 4:32 PM HOST COORDINATOR DTL Erythrocytes 4.09 3.92 - 5.13 x10(12)/L 11/05/2023 4:32 PM HOST COORDINATOR DTL MCV 94.6 78.2 - 97.9 fL 11/05/2023 4:32 PM HOST COORDINATOR DTL RBC Distrib Width 15.8 12.2 - 16.1 % 11/05/2023 4:32 PM HOST COORDINATOR DTL Platelet Count 235 157 - 371 x10(9)/L 11/05/2023 4:32 PM HOST COORDINATOR DTL Leukocytes 22.4(H) 3.4 - 9.6 x10(9)/L 11/05/2023 6:22 PM HOST COORDINATOR DTL Comment:Results confirmed by smear. Neutrophils See Comment 1.56 - 6.45 x10(9)/L 11/05/2023 6:22 PM HOST COORDINATOR [facility] Comment:Auto-diff results no t valid. See manual differential. Blood (Blood, Venous) 11/05/2023 4:03 PM HOST COORDINATOR 11/05/2023 4:24 PM HOST COORDINATOR Kenya Garza M.D. LAB BLOOD ADD-ON [facility] [address] [place] [address], [place] DTL [facility] [address] [place] [address] [facility] [address] [place] [address] * (ABNORMAL) Comprehensive Metabolic Panel (11/05/2023 4:03 PM HOST COORDINATOR) [facility] Potassium, S 4.4 3.6 - 5.2 mmol/L 11/05/2023 5:04 PM HOST COORDINATOR DTL Sodium, S 139 135 - 145 mmol/L 11/05/2023 5:04 PM HOST COORDINATOR DTL Chloride, S 101 98 - 107 mmol/L 11/05/2023 5:04 PM HOST COORDINATOR DTL Bicarbonate, S 27 22 - 29 mmol/L 11/05/2023 5:04 PM HOST COORDINATOR DTL Anion Gap 11 7 - 15 11/05/2023 5:04 PM HOST COORDINATOR DTL BUN (Blood Urea Nitrogen), S 17 6 - 21 mg/dL 11/05/2023 5:04 PM HOST COORDINATOR DTL Creatinine 0.76 0.59 - 1.04 mg/dL 11/05/2023 5:04 PM HOST COORDINATOR DTL Estimated GFR (eGFR) 86 >=60 mL/min/BS A 11/05/2023 5:04 PM HOST COORDINATOR DTL Comment: Estimated GFR calculated using the 2020 CKD_EPI creatinine equation. Calcium, Total, S 10.1 8.8 - 10.2 mg/dL 11/05/2023 5:20 PM HOST COORDINATOR DTL Glucose, S 104 70 - 140 mg/dL 11/05/2023 5:04 PM HOST COORDINATOR DTL Protein, Total, S 6.1(L) 6.3 - 7.9 g/dL 11/05/2023 5:04 PM HOST COORDINATOR DTL Albumin, S 4.3 3.5 - 5.0 g/dL 11/05/2023 5:04 PM HOST COORDINATOR DTL Aspartate Aminotransferase (AST), S 16 8 - 43 U/L 11/05/2023 5:04 PM HOST COORDINATOR DTL Alkaline Phosphatase, S 81 35 - 104 U/L 11/05/2023 5:04 PM HOST COORDINATOR DTL Alanine Aminotransferase (ALT), S 16 7 - 45 U/L 11/05/2023 5:04 PM HOST COORDINATOR DTL Bilirubin, Total, S 1.2 0.0 - 1.2 mg/dL 11/05/2023 5:04 PM HOST COORDINATOR DTL Blood (Blood, Venous) 11/05/2023 4:03 PM HOST COORDINATOR 11/05/2023 4:41 PM HOST COORDINATOR Kenya Gazra M.D. LAB BLOOD ADD-ON [facility] [address] [place] [address], [facility] DTL [facility] [address] [place] [address] * B-Scan Ultrasound - OD - Right Eye (11/05/2023 1:08 PM HOST COORDINATOR) Narrative OPHTHALMOLGY NON-IMAGING ORDERS - 11/05/2023 6:21 PM HOST COORDINATOR 11/05/2023 B scan right eye: ??Moderate opacities posteriorly. ??Possible vitreous vs shallow retinal detachment. ?? No T sign noted. ?? [facility] Kenya Garza M.D. OPHTH ULTRASOUND Performing Organization Address City/[facility] Co de Phone Number OPHTHALMOLGY NON-IMAGING ORDERS from Last 3 Months Care Teams Insurance Agency Manager Relationship Specialty Start Date End Date Elsewhere, Pcp PCP - General Internal Medicine 05/29/19
--- OUTSIDE RECORDS SUMMARY | 2023-11-19 07:35 | XMS_ITS | Encounter Summary ---
Author Name Unknown Organization [facility] Address [address] [place] [address] Care Team Providers Care Bacon Stringer Name Role Phone Elsewhere, Pcp Primary Care Provider Unavailabl e Reason for Referral * Outpatient (Routine) - Authorized Specialty Diagnoses / Procedures Referred By Apolinar lopez Referred To Contact Ophthalmology Diagnoses Panuveitis Right Necrosis Retinal Acute Right Kenya Garza M.D. [address] [place] [address] [facility] Referral ID Status Reason Start Date Expiration Date V isits Requested Visits Authorized [id number] Authorized 11/18/2023 05/19/2025 1 1 EL POWER SHOVEL OPERATOR Reason for Visit * Outpatient (Routine) - Closed Specialty Diagnoses / Procedures Referred By Apolinar lopez Referred To Contact Ophthalmology Diagnoses Panuveitis Right Necrosis Retinal Acute Right Kenya Garza M.D. [address] [place] [address] [facility] Referral ID Status Reason Start Date Expiration Date Visits Re quested Visits Authorized [id number] Closed 11/11/2023 11/10/2026 1 1 Encounter Details Date Type Department Care Team (Latest Contact Info) Description 11/18/2023 12:00 PM DIESEL POWER SHOVEL OPERATOR Office Visit Department of Ophthalmology in [place], [place] [address] [place] [phone] Kenya Garza M.D. [address] [place] [phone] Panuveitis Right (Primary Dx); Necrosis Retinal Acute Right Social History Tobacco Use Types Packs/Day Years Used Date Smoking Tobacco: Light Smoker Cigarettes 0.5 39 Started: 02/26/1980 Smokeless Tobacco: Never Comments:On again off again Alcohol Use Standard Drinks/Week Comments Yes 0 (1 standard drink = 0.6 oz pur e alcohol) [facility] Utilities Answer Date Recorded In the past 12 months has e electric, gas, oil, or water Framed [employer] threatened to shut off services in your home? No 11/05/2023 Social Connection and Isolation Panel [NHANES] A nswer Date Recorded In a typical week, how many times do you talk on the phone with family, friends, or neighbors? Once a week 06/27/2020 How often do you get together with friends or re latives? Never 06/27/2020 How often do you attend druze or restorationist serv ices? Never 06/27/2020 Do you belong to any clubs o r organizations such as druze groups, unions, fraternal or athletic groups, or [...] medical care, and heating? Somewhat hard 06/27/2020 [facility] [place] of Occupat ional Health - Occupational Stress [...] money to buy more. Never true 11/05/19 Within the past 12 months, t he [...] your living situation today? I have a [facility] place to live 11/05/2023 Education Answer Date Recorded What is the highest level of school you have completed or the highest degree you have received? 12th grade 06/27/2020 Sex and Gender Information Value Date Recorded Sex Assigned at Female 07/06/2020 10:15 AM CDT Gender Identity Female 02/11/2019 3:24 PM CDT Sexual Orientation Straight 02/11/2019 3: 24 PM CDT documented as of this encounter Progress Notes * Kenya Garza M.D. - 11/18/2023 12:00 PM CST HPI - 11/05/23 Mrs. Alexandra Dixon is a 68 year old woman who is referred by Dr. Daisy Ivy for evaluation ofuveitis. She woke up with a red, painful, tearing right eye on 10/16/23. Was seen in urgent care on 10/19/23and diagnosed with pink eye, treated with tobramycin drops without improvement. She saw telephone repairer Dr. Daisy Ivy on 10/23/23. VA was HM and 20/30. IOPs 18 & 16. The right had significant conjunctival injection, corneal edema, 360 degrees of posterior synechiae. No anterior chamber cell was observed. Started treatment with prednisolone drops q1h and cyclopentolate QID right eye. She was also seen on 10/25/23, 10/29/23, and most recently on 11/01/23. She has a history of chronic lymphocytic leukemia/SLL - she is untreated so far. She has not been able to see her patient centered care specialist oncologist recently because every time she went to an appointment she was sent to the emergency room due to elevated blood pressure. In August 2023, she was sent from an infusion center to [place] emergency department where shewas found to have oxygen saturations of 78%. CT imaging showed worsening bilateral ground glass opacities. A CT scan was negative for pulmonary embolism. She was transferred to [facility] for additional pulmonology care. On 09/12/23 she had a bronchoscopy and BAL. ANKITA, anti-neutrophil cytoplasmic antibodies, and fungitell testing was obtained. Subsequently she was treated with IVmethylprednisolone, and it was concluded that the lung disease was due to methotrexate. She was discharged on oral prednisone 40 mg x 1 wk, 20 mg x 1 wk, 10 mg x 1 wk, then 5 mg x 1 wk. 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 She did have Shingrix vaccination after that. She was in the hospital three times in the past three months: [place] (09/02/23 for hypercalcemiaand acute kidney injury - had CT chest/abdomen/pelvis to assess for malignancy), [facility] again. Each time she saw her oncologist, her blood pressure was high, so she was sent to the ED. Initially concerned about kidneys, then liver, then lungs, then heart. She had a lung biopsy which turned out to be pneumonia. She had been on methotrexate 20 mg/wk for a dermatology diagnosis (itchy bumps - attributed to the CLL - bullous pemphigoid noted in the chart). She started the medication in January, stopped due to the recent hospitalizations. She is not yet treated for chronic lymphocytic leukemia, but her WBC and serum calcium were very high recently. She lost 30 lbs in 10 weeks. Her oncologist plans to monitor. (Her oncologist is at [facility].) MEDICATIONS Prednisolone every hour while awake right eye Cyclopentolate QID, right eye VA without correction HM and 20/30 (PH 20/20) ICare pressures 7 & 12 The right eye has 1+ injection, pigmented keratitic precipitates in Arlts triangle, 3+ anterior chamber cell with stasis, lysed posterior synechiae, vitireous has 2+ cell with 3+ haze. There is a band of hyaloid with dense debris visible in the macula, the optic nerve appears edematous (hazy view). In the periphery, there are large patches of retinitis that are essentially confluent 360 degrees The left eye has no inflammation. 11/05/2023 B scan right eye: Moderate opacities posteriorly. Possible vitreous vs shallow retinal detachment. No T sign noted. [facility] Macula OCT of the right eye shows irregular thickening with extensive inner retina wrinkling plus choroidal undulations and thickening. There is no obvious intraretinal fluid or subretinal fluid. OCTof the left is essentially normal. PLAN: The findings are concerning for acute retinal necrosis. She reports a history of zoster several years ago (atypical location? Center of her back) and she was on a course of prednisone that was completed not long before the onset of visual symptoms. She also has untreated chronic lymphocytic leukemia/SLL - in the context of the unusual choroid appearance, intraocular lymphoma is also in the differential. We will perform a right eye anterior chamber tap to collect aqueous for VZV, HSV, CMV PCRs. We willalso treat with intravitreal injections of foscarnet and ganciclovir today. Obtain CBC, CMP today - depending on the results, I might also start PO valacyclovir and/or consider admission for IV antiviral and further evaluation. (She does not yet have follow up scheduled withher oncologist, and her WBC was extremely elevated in August when she was hospitalized.) She should not use her medication eye drops for the rest of today (after the procedure), but she can resume both tomorrow. 11/07/23 No significant change since last visit two days ago. Prednisolone every hour while awake right eye Cyclopentolate QID, right eye Valacyclovir 1000 mg TID (started yesterday 11/06/23) VA without correction light perception+P and 20/25 (PH 20/20) ICare pressures 6 & 11 The right eye has trace injection, pigmented keratitic precipitates in Arlts triangle, 3+ anterior chamber cell with stasis, lysed posterior synechiae, vitireous has 3+ cell with 3+ haze. There is a band of hyaloid with dense debris visible in the macula, the optic nerve appears edematous (hazy view). In the periphery, there are large patches of retinitis that are essentially confluent 360 degrees The left eye has no inflammation. PLAN: Still most suspicious for acute retinal necrosis, aqueous PCRs pending. Intravitreal antiviral injections were a little less than 48 hours ago, started PO yesterday. Continue the current eye drop and PO antiviral regimen. 11/11/23 She has noticed a little improvement in vision since last visit. Aqueous PCR (11/05/23) was positive for HSV2; negative for VZV, CMV MEDICATIONS Prednisolone every hour while awake right eye Cyclopentolate QID, right eye Valacyclovir 1000 mg TID (started 11/06/23) Status post intravitreal foscarnet & ganciclovir on 11/05/23 VA without correction light perception+P and 20/30 (PH 20/20) The right eye anterior chamber inflammation is stable The vitreous haze has decreased slightly There is still a band of hyaloid with dense debris visible in the macula, the optic nerve appears edematous (hazy view). In the periphery, there are large patches of retinitis that are essentially confluent 360 degrees - they do not appear significantly different vs Saturday. The left eye has no inflammation. 11/11/2023 B scan right eye: Moderate-dense vitreous opacities. Vitreous membranes. Possible posterior thickening. No T sign. [facility] HSV 2 PCR from anterior chamber tap (11/05/23) positive PLAN: The diagnosis is now confirmed to be HSV2 acute retinal necrosis in the right eye. There is a little clinical improvement in the vitreous inflammation today, 6 days after intravitreal foscarnet and ganciclovir and 5 days on PO valacyclovir. We will continue the current regimen of PO valacyclovir. No need to repeat intravitreal injections at this time. We discussed that the systemic antiviral reduces the risk of developing acute retinal necrosis in the left eye. We also discussed the significant amount of retinitis in the right eye andthe high risk of retinal detachment. Since there is significant vitreous debris, switch to Durezol eye drops in the right eye. I do not want to add PO prednisone due to her multiple systemic comorbidities. Continue PO valacyclovir 1 g TID Switch from prednisolone to Durezol QID right eye Continue cyclopentolate drops - can decrease slightly to TID in the right eye. TODAY - 11/18/23 No significant change in vision since last visit. The pharmacy is having difficulty getting a refill for cyclopentolate, but she still has some of the drops. She started Durezol two days after last visit. MEDICATIONS Durezol QID right eye (started 11/13/23) Cyclopentolate TID, right eye Valacyclovir 1000 mg TID (started 11/06/23) Status post intravitreal foscarnet & ganciclovir on 11/05/23 EXAM VA without correction HM and 20/25 (PH 20/20) ICare pressures 9 & 10 The right eye anterior chamber inflammation is decreased The vitreous cell and haze are also decreased slightly There is still a band of hyaloid with dense debris visible in the macula, the optic nerve appears edematous (hazy view). In the periphery, there are large patches of retinitis that are essentially confluent 360 degrees - they are starting to involute The left eye has no inflammation. Optos color photos confirm exam findings (11/18/23) 11/18/2023 B scan right eye: Moderate-dense vitreous opacities. Unable to rule out shallow detachment vs subhyaloid opacities. No T sign noted. [facility]. HSV 2 PCR from anterior chamber tap (11/05/23) positive CBC showed elevated WBC consistent with known diagnosis of chronic lymphocytic leukemia. Dr. Clemens agreed that the choroid looks suspicious, but the degree of anterior chamber and vitreous inflammation would be atypical for a choroidal lymphoma. If there continues to be clinical suspicion for lymphoma, then we will get an MRI of the orbits. PLAN There is slow involution of the peripheral patches of retinitis in the right eye. It has been 14 days since intravitreal foscarnet and ganciclovir and 13 days on PO valacyclovir. Switched to Durezol 5 days ago. We will continue the current regimen of PO valacyclovir and Durezol. No need to repeat intravitrealinjections at this time. I do not want to add PO prednisone due to her multiple systemic comorbidities. We discussed that the systemic antiviral reduces the risk of developing acute retinal necrosis in the left eye. We also discussed the significant amount of retinitis in the right eye and the highrisk of retinal detachment. Continue PO valacyclovir 1 g TID Continue Durezol QID right eye Continue cyclopentolate drops - can decrease slightly to BID in the right eye. (If the pharmacy cannot get a refill, we will switch to atropine once daily) Follow up in 1 week on 11/25/23 at 11:00 am: Va, [facility], trop both eyes, B-scan right eye, [place] color photos right, WMS EL POWER SHOVEL OPERATOR documented in this encounter Plan of Treatment Upcoming Encounters Date Type Department Care Team (Late st Contact Info) Description 11/25/2023 8:30 AM DIESEL POWER SHOVEL OPERATOR Ancillary Procedure Department of Ophthalmology in [place], [place] [address] [place] [phone] Kenya Garza M.D. [address] [place] [phone] 11/25/2023 9:00 AM DIESEL POWER SHOVEL OPERATOR Ancillary Procedure Department of Ophthalmology in [place], [place] [address] [place] [phone] Kenya Garza M.D. [address] [place] [phone] 11/25/2023 11:15 AM DIESEL POWER SHOVEL OPERATOR Ancillary Procedure Department of Ophthalmology in [place], [place] [address] [place] [phone] Kenya Garza M.D. [address] [place] [address] 11/25/2023 11:45 AM DIESEL POWER SHOVEL OPERATOR Office Visit Department of Ophthalmology in [place], [place] [address] [place] [address] Kenya Garza M.D. [address] [place] [address] Scheduled Orders Name Type Priority Associated Diagnoses Orde r Schedule Fundus Photos - OU - Both Eyes Ophthalmology Routine Panuveitis Right Necrosis Retinal Acute Right 1 Occurrences starting 11/18/2023 until 11/18/2026 B-Scan Ultrasound - OD - Right Eye Ophthalmology Routine Panuveitis Right Necrosis Retinal Acute Right 1 Occurrences starting 11/18/2023 until 02/16/2025 Scheduled Referrals Name Type Priority Associated Diagnoses Order Schedule Ophthalmology office visit (clinic) Outpatient Referral Routine Panuveitis Right Necrosis Retinal Acute Right Expected: 11/25/2023, Expires: 11/18/2026 documented as of this encounter Visit Diagnoses Diagnosis Panuveitis Right- Primary Necrosis Retinal Acute Right documented in this encounter Care Teams Bacon Stringer Relationship Specialty Start Date End Date Elsewhere, Pcp PCP - General Internal Medicine 05/29/19 documented as of this encounter
--- OUTSIDE RECORDS SUMMARY | 2023-11-19 07:35 | XMS_ITS | Referral Summary ---
Author Name Unknown Organization [facility] Address [address] [place] [address] Care Team Providers Care Levi Maker Name Role Phone Elsewhere, Pcp Primary Care Provider Unavailabl e Source Comments Patient records contain information from all sites at [facility]. For routine questions regarding patient records, call [phone] during business hours, M-F 8:00 AM - 5:00 PM Central Time. Record requests for emergency care only can be directed to [phone] at any time.[facility] Encounters Date Type Department Care Team Description 11/18/2023 12:05 AM BYPRODUCTS PUMP OPERATOR Ancillary Procedure Department of Ophthalmology Arrived 11/18/2023 Ancillary Procedure Department of Ophthalmology Arrived 11/18/2023 7:55 AM BYPRODUCTS PUMP OPERATOR Ancillary Procedure Department of Ophthalmology Arrived 11/18/2023 12:00 PM BYPRODUCTS PUMP OPERATOR Office Visit Department of Ophthalmology in [place], [place] [address] [place] [address] Kenya Garza M.D. Panuveitis Right (Primary Dx); Necrosis Retinal Acute Right 11/18/2023 8:00 AM BYPRODUCTS PUMP OPERATOR Ancillary Procedure Department of Ophthalmology in [place], [place] [address] [place] [address] Kenya Garza M.D. Panuveitis Right; Necrosis Retinal Acute Right 11/18/2023 7:30 AM BYPRODUCTS PUMP OPERATOR Ancillary Procedure Department of Ophthalmology in [place], [place] [address] [place] [address] Kenya Garza M.D. Panuveitis Right; 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/2023 Ancillary Procedure Department of Ophthalmology 11/11/2023 11:15 AM BYPRODUCTS PUMP OPERATOR Office Visit Department of Ophthalmology in [place], [place] [address] [place] [address] Kenya Garza M.D. Panuveitis Right (Primary Dx); 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/2023 10:00 AM BYPRODUCTS PUMP OPERATOR Ancillary Procedure Department of Ophthalmology in [place], [place] [address] [place] [phone] Kenya Garza M.D. Panuveitis Right 11/07/2023 11:30 AM BYPRODUCTS PUMP OPERATOR Office Visit Department of Ophthalmology in [place], [place] [address] [place] [phone] Kenya Garza M.D. Panuveitis Right (Primary Dx) 11/06/2023 Orders Only Department of Ophthalmology in [place], [place] [address] [place] [phone] Kenya Garza M.D. 11/05/2023 3:53 PM BYPRODUCTS PUMP OPERATOR - 11/05/2023 11:59 PM BYPRODUCTS PUMP OPERATOR Hospital Encounter Department of Laboratory Medicine and Pathology, [facility] in [place], [place] [address] [place] [phone] Kenya Garza M.D. Uveitis Discharge Disposition: Home or Self Care 11/05/2023 Orders Only Department of Ophthalmology in [place], [place] [address] [place] [phone] Shahnaz Amato C.O.A. Uveitis (Primary Dx) 11/05/2023 12:05 AM BYPRODUCTS PUMP OPERATOR Ancillary Procedure Department of Ophthalmology 11/05/2023 Ancillary Procedure Department of Ophthalmology 11/05/2023 Episode Changes Department of Ophthalmology in [place], [place] [address] [place] [phone] Gladys Ponce 11/05/2023 Clinical Communication Department of Ophthalmology in [place], [place] [address] [place] [phone] Kenya Garza M.D. 11/05/2023 Clinical Communication Department of Ophthalmology in [place], [place] [address] [place] [phone] Kenya Garza M.D. 11/05/2023 1:30 PM BYPRODUCTS PUMP OPERATOR Comprehensive Visit Department of Ophthalmology in [place], [place] [address] [place] [address] Kenya Garza M.D. Panuveitis Right (Primary Dx); Uveitis 11/05/2023 10:50 AM BYPRODUCTS PUMP OPERATOR Ancillary Procedure Department of Ophthalmology in [place], [place] [address] [place] [address] Kenya Garza M.D. Uveitis 11/04/2023 Orders Only Department of Ophthalmology in [place], [place] [address] [place] [address] Shahnaz Amato C.O.A. Uveitis (Primary Dx) 11/01/2023 Clinical Communication Department of Ophthalmology in [place], [place] [address] [place] [address] Kenya Garza M.D. from Last 3 Months Allergies No known active allergies Medications Medication [...] 0.1-0.06-1% ophthalmic solution 0 3 11/05/19 24 Discontinued(Rigo amor completed) Hospital, Clinic, or Other Facility Administered [...] Resolved Date Diabetes Mellitus Type 2 02/17/201911/2018 Social History Tobacco Use Types Packs/Day Years Used Date Smoking Tobacco: Light Smoker Cigarettes 0.5 39 Started: 02/26/1980 Smokeless Tobacco: Never Comments:On again off again Alcohol Use Standard Drinks/Week Comments Yes 0 (1 standard drink = 0.6 oz pur e alcohol) [facility] Utilities Answer Date Recorded In the past 12 months has e [employer], gas, oil, or water company threatened to [...] Never 06/27/2020 How often do you attend hinduism or protestant serv ices? Never 06/27/2020 Do you belong to any clubs o r organizations such as hinduism groups, unions, fraternal or athletic groups, or [...] medical care, and heating? Somewhat hard 06/27/2020 [facility] of Occupat ional Health - Occupational Stress [...] your living situation today? I have a [facility] place to live 11/05/2023 Education Answer [...] st Contact Info) Description 11/25/2023 8:30 AM BYPRODUCTS PUMP OPERATOR Ancillary Procedure Department of Ophthalmology in [place], [place] [address] [place] [address] Kenya Garza M.D. [address] [place] [phone] 11/25/2023 9:00 AM BYPRODUCTS PUMP OPERATOR Ancillary Procedure Department of Ophthalmology in [place], [place] [address] [place] [phone] Kenya Garza M.D. [address] [place] [phone] 11/25/2023 11:15 AM BYPRODUCTS PUMP OPERATOR Ancillary Procedure Department of Ophthalmology in [place], [place] [address] [place] [phone] Kenya Garza M.D. [address] [place] [phone] 11/25/2023 11:45 AM BYPRODUCTS PUMP OPERATOR Office Visit Department of Ophthalmology in [place], [place] [address] [place] [phone] Kenya Garza M.D. [address] [place] [phone] Procedures Procedure Name Priority Date/Time Associated Diagnosis Comments B SCAN - OD - RIGHT EYE Routine 11/18/19 12:33 PM BYPRODUCTS PUMP OPERATOR Panuveitis Right Necrosis Retinal Acute Right FUNDUS PHOTOS - OD - RIGHT EYE Routine 11/18/2023 8:05 AM BYPRODUCTS PUMP OPERATOR Panuveitis Right Necrosis Retinal Acute Right OPHTHALMOLOGY IMAGE EXAM Routine 11/18/2023 7:55 AM BYPRODUCTS PUMP OPERATOR OPHTHALMOLOGY IMAGE EXAM Routine 11/18/2023 12:05 AM BYPRODUCTS PUMP OPERATOR OPHTHALMOLOGY IMAGE EXAM Routine 11/18/2023 12:00 AM BYPRODUCTS PUMP OPERATOR B SCAN - OD - RIGHT EYE Routine 11/11/19 11:24 AM BYPRODUCTS PUMP OPERATOR Panuveitis Right OPHTHALMOLOGY IMAGE EXAM Routine 11/11/2023 12:00 AM BYPRODUCTS PUMP OPERATOR INTRAVITREAL INJECTION, PHARMACOLOGIC AGENT - OD - RIGHT EYE Routine 11/05/2023 6:27 PM BYPRODUCTS PUMP OPERATOR Uveitis OPTICAL COHERENCE TOMOGRAPHY - MACULA/RETINA - OU - BOTH EYES Routine 11/05/2023 4:39 PM BYPRODUCTS PUMP OPERATOR Uveitis VARICELLA-ZOSTER VIRUS PCR, V Routine 11/05/2023 4:22 PM BYPRODUCTS PUMP OPERATOR Uveitis HERPES SIMPLEX VIRUS PCR Routine 11/05/2023 4:22 PM BYPRODUCTS PUMP OPERATOR Uveitis CYTOMEGALOVIRUS PCR Routine 11/05/2023 4 :22 PM BYPRODUCTS PUMP OPERATOR Uveitis SPSMA RESULT Routine 11/05/2023 4:03 PM BYPRODUCTS PUMP OPERATOR HEMATOPATHOLOGY REVIEW Routine 4:03 PM BYPRODUCTS PUMP OPERATOR COMPREHENSIVE METABOLIC PANEL, S/P Routine 11/05/2023 4:03 PM BYPRODUCTS PUMP OPERATOR Uveitis CBC WITH DIFFERENTIAL, B Routine 11/05/2023 4:03 PM BYPRODUCTS PUMP OPERATOR Uveitis B SCAN - OD - RIGHT EYE Routine 11/05/19 24 1:08 PM BYPRODUCTS PUMP OPERATOR Uveitis OPHTHALMOLOGY IMAGE EXAM Routine 11/05/2023 12:05 AM BYPRODUCTS PUMP OPERATOR OPHTHALMOLOGY IMAGE EXAM Routine 11/05/2023 12:00 AM BYPRODUCTS PUMP OPERATOR from Last 3 Months Results * B-Scan Ultrasound - OD - Right Eye (11/18/2023 12:33 PM BYPRODUCTS PUMP OPERATOR) [facility] OPHTHALMOLGY NON-IMAGING ORDERS - 11/18/2023 12:41 PM BYPRODUCTS PUMP OPERATOR 11/18/2023 B scan right eye: ?? Moderate-dense vitreous opacities. ?? Unable to rule out shallow detachment vs subhyaloid opacities. ?No T sign noted. ?? [facility] Kenya Garza M.D. OPHTH ULTRASOUND Performing Organization Address [facility] de Phone Number OPHTHALMOLGY NON-IMAGING ORDERS * Fundus Photos - OD - Right Eye (11/18/2023 8:05 AM BYPRODUCTS PUMP OPERATOR) Narrative OPHTHALMOLOGY IMAGING EXAM - 11/18/2023 10:45 AM BYPRODUCTS PUMP OPERATOR Field of view is ultra-wide view. Fundus photo type obtained is Color, Autofluorescence. Notes KX Optos color photos: confirm exam findings Kenya Garza M.D. OPHTH PHOTOGRAPHY Performing Organization Address [facility] de Phone Number OPHTHALMOLOGY IMAGING EXAM * Generic Eye Procedure 200 R-Ophthalmology Image Exam (11/18/2023 7:55 AM BYPRODUCTS PUMP OPERATOR) Only the most recent of6 resultswithin the time period is included. 11/18/2023 7:54 AM BYPRODUCTS PUMP OPERATOR Narrative IIMS - 11/18/2023 8:14 AM BYPRODUCTS PUMP OPERATOR This order has been created and auto-finalized to support the import of images acquired without order. The clinical documentation to support these images can be found on the encounter that produced images. Provider Not In System IMG NON RAD IMAGI NG PROCEDURES Performing Organization Address [facility] de Phone Number IIMS NA * B-Scan Ultrasound - OD - Right Eye (11/11/2023 11:24 AM BYPRODUCTS PUMP OPERATOR) Narrative OPHTHALMOLGY NON-IMAGING ORDERS - 11/11/2023 2:56 PM BYPRODUCTS PUMP OPERATOR 11/11/2023 B scan right eye: Moderate-dense vitreous opacities. ??Vitreous membranes. ?Possible posterior thickening. ?? No T sign. ?? [facility] Kenya Garza M.D. OPHTH ULTRASOUND Performing Organization Address [facility] de Phone Number OPHTHALMOLGY NON-IMAGING ORDERS * Intravitreal Injection, Pharmacologic Agent - OD - Right Eye (11/05/2023 6:27 PM BYPRODUCTS PUMP OPERATOR) Narrative OPHTHALMOLGY NON-IMAGING ORDERS - 11/05/2023 6:27 PM BYPRODUCTS PUMP OPERATOR Pre-Procedure Verification Pre-procedure verification conducted to verify [...] mcg/0.1 mL ??Route: intravitreal, Site: Right Eye ??[facility]: 1443-0426-84, Lot: [id number], Expiration date: 11/09/2023 2,000 mcg ganciclovir 2000 mcg/0.05 mL ??Route: intravitreal, Site: Right Eye ??[facility]: 4490-9156-51, Lot: [id number], Expiration date: 11/06/2023 Anterior Chamber Tap was [...] OU - Both Eyes (11/05/2023 4:39 PM BYPRODUCTS PUMP OPERATOR) CMT L Microns 256 um OPH THALMOLOGY IMAGING EXAM Narrative OPHTHALMOLOGY IMAGING EXAM - 11/05/2023 6:25 PM BYPRODUCTS PUMP OPERATOR Right Eye Reliability was good. OCT device [...] * Varicella-Zoster Virus PCR (11/05/2023 4:22 PM BYPRODUCTS PUMP OPERATOR) Specimen Source right eye 3:52 PM BYPRODUCTS PUMP OPERATOR DTL Comment: The volume/amount received was suboptimal, and therefore, the sample was diluted to the appropriate volume for testing. A negative result should not rule out the disease. Varicella-Zoster Virus PCR Negative Negative 11/07/2023 3:52 PM BYPRODUCTS PUMP OPERATOR DTL Comment: A suboptimal volume of specimen was received, and therefore, the sample was diluted to the appropriate volume for testing. A negative result does not rule out infection. ----ADDITIONAL INFORMATION---- This test was developed and its performance characteristics determined by [facility] in a manner consistent with CLIA requirements. This test has not been cleared or approved by the U.S. Food and Drug Administration. Fluid (Aqueous Humor, Right) 11/05/2023 4:22 PM BYPRODUCTS PUMP OPERATOR 11/05/2023 6:26 PM BYPRODUCTS PUMP OPERATOR Kenya Garza M.D. LAB MICROBIOLOGY - G ENERAL ORDERABLES [facility] [address] [place] [address], [facility] DTL [address] [facility] [address] [place] [address] * Cytomegalovirus PCR (11/05/2023 4:22 PM BYPRODUCTS PUMP OPERATOR) Specimen Source right eye 3:08 PM BYPRODUCTS PUMP OPERATOR DTL Comment: The volume/amount received was suboptimal, and therefore, the sample was diluted to the appropriate volume for testing. A negative result should not rule out the disease. Cytomegalovirus PCR Negative Negative 11/07 3:08 PM BYPRODUCTS PUMP OPERATOR DTL Comment: A suboptimal volume of specimen was received, and therefore, the sample was diluted to the appropriate volume for testing. A negative result does not rule out infection. ----ADDITIONAL INFORMATION---- This test was developed and its performance characteristics determined by [facility] in a manner consistent with CLIA requirements. This test has not been cleared or approved by the U.S. Food and Drug Administration. Fluid (Aqueous Humor, Right) 11/05/2023 4:22 PM BYPRODUCTS PUMP OPERATOR 11/05/2023 6:26 PM BYPRODUCTS PUMP OPERATOR Kenya Garza M.D. LAB MICROBIOLOGY - G ENERAL ORDERABLES Performing Organization Address [facility] Co de Phone Number [facility] [address] [place] [address], [facility] DT 200 [facility] [address] [place] [address] * (ABNORMAL) Herpes Simplex Virus PCR (11/05/2023 4:22 PM BYPRODUCTS PUMP OPERATOR) Specimen Source right eye 9:33 PM BYPRODUCTS PUMP OPERATOR DTL Comment: The volume/amount received was suboptimal, and therefore, the sample was diluted to the appropriate volume for testing. A negative result should not rule out the disease. HSV 1, PCR Negative Negative 11/07/2023 9:33 PM BYPRODUCTS PUMP OPERATOR DTL HSV 2, PCR Positive(C) Negative 11/07/2023 9:33 PM BYPRODUCTS PUMP OPERATOR DTL Comment: ----ADDITIONAL INFORMATION---- This test was developed and its performance characteristics determined by [facility] in a manner consistent with CLIA requirements. This test has not been cleared or approved by the U.S. Food and Drug Administration. Fluid (Aqueous Humor, Right) 11/05/2023 4:22 PM BYPRODUCTS PUMP OPERATOR 11/05/2023 6:26 PM BYPRODUCTS PUMP OPERATOR Kenya Garza M.D. LAB MICROBIOLOGY - G ENERAL ORDERABLES Performing Organization Address City/[facility]/ZIP Co de Phone Number [facility] [address] [place] [address], [facility] DTL [address] [facility] [address] [place] [address] * Hematopathology Review (11/05/2023 4:03 PM BYPRODUCTS PUMP OPERATOR) Report electronically signed by Prakash Holguin M.D. I verify that I have examined all relevant slides/materi als for the specimen(s) and rendered or confirmed the diagnosis. 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 11/06/2023 12:30 PM BYPRODUCTS PUMP OPERATOR DHPM Blood 11/05/2023 4:03 PM BYPRODUCTS PUMP OPERATOR 11/05/2023 4:24 PM BYPRODUCTS PUMP OPERATOR Kenya Garza M.D. LAB PATHOLOGY/CYTOLO GY ORDERABLES [facility] [address] [place] [address], [facility] DH 200 [facility] [address] [place] [address] * (ABNORMAL) SPSMA Result (11/05/2023 4:03 PM BYPRODUCTS PUMP OPERATOR) Neutrophilic Segs and Bands 32(L) 50 - 75 % 11/06/2023 1:02 PM BYPRODUCTS PUMP OPERATOR DHPM Lymphocytes 63(H) 18 - 42 % 11/06/2023 1:02 PM BYPRODUCTS PUMP OPERATOR DHPM Monocytes 2 2 - 11 % 11/06/2023 1:02 PM BYPRODUCTS PUMP OPERATOR DHPM Eosinophils 1 1 - 3 % 11/06/2023 1:02 PM BYPRODUCTS PUMP OPERATOR DHPM Basophils 2 0 - 2 % 11/06/2023 1:02 PM BYPRODUCTS PUMP OPERATOR DHPM Fragile Cells Slight 11/06/2023 1:02 PM BYPRODUCTS PUMP OPERATOR DHPM Manual Absolute Neutrophil Count 7.17(H) 1.56 - 6.45 x10(9)/L 11/06/2023 1:02 PM BYPRODUCTS PUMP OPERATOR DHPM Comment: ----ADDITIONAL INFORMATION---- The manual absolute neutrophil count is derived from a manual differential count and therefore is not exactly comparable to the automated absolute neutrophil count. Blood 11/05/2023 4:03 PM BYPRODUCTS PUMP OPERATOR 11/05/2023 4:24 PM BYPRODUCTS PUMP OPERATOR Kenya Garza M.D. LAB BLOOD ADD-ON Performing Organization Address City/[facility]/ZIP Co de Phone Number [facility] [address] [place] [address], [facility] [address] [place] [address] * (ABNORMAL) CBC with Differential, Blood (11/05/2023 4:03 PM BYPRODUCTS PUMP OPERATOR) Pathologist [facility] Hemoglobin 12.2 11.6 - 15.0 g/dL 11/05/2023 4:32 PM BYPRODUCTS PUMP OPERATOR DTL Hematocrit 38.7 35.5 - 44.9 % 11/05/2023 4:32 PM BYPRODUCTS PUMP OPERATOR DTL Erythrocytes 4.09 3.92 - 5.13 x10(12)/L 11/05/2023 4:32 PM BYPRODUCTS PUMP OPERATOR DTL MCV 94.6 78.2 - 97.9 fL 11/05/2023 4:32 PM BYPRODUCTS PUMP OPERATOR DTL RBC Distrib Width 15.8 12.2 - 16.1 % 11/05/2023 4:32 PM BYPRODUCTS PUMP OPERATOR DTL Platelet Count 235 157 - 371 x10(9)/L 11/05/2023 4:32 PM BYPRODUCTS PUMP OPERATOR DTL Leukocytes 22.4(H) 3.4 - 9.6 x10(9)/L 11/05/2023 6:22 PM BYPRODUCTS PUMP OPERATOR DTL Comment:Results confirmed by smear. Neutrophils See Comment 1.56 - 6.45 x10(9)/L 11/05/2023 6:22 PM BYPRODUCTS PUMP OPERATOR [facility] Comment:Auto-diff results no t valid. See manual differential. Blood (Blood, Venous) 11/05/2023 4:03 PM BYPRODUCTS PUMP OPERATOR 11/05/2023 4:24 PM BYPRODUCTS PUMP OPERATOR Kenya Garza M.D. LAB BLOOD ADD-ON Performing Organization Address City/[facility]/ZIP Co de Phone Number [facility] [address] [place] [address], [place] DTL [facility] [address] [place] [address] [facility] [address] [place] [address] * (ABNORMAL) Comprehensive Metabolic Panel (11/05/2023 4:03 PM BYPRODUCTS PUMP OPERATOR) [facility] Potassium, S 4.4 3.6 - 5.2 mmol/L 11/05/2023 5:04 PM BYPRODUCTS PUMP OPERATOR DTL Sodium, S 139 135 - 145 mmol/L 11/05/2023 5:04 PM BYPRODUCTS PUMP OPERATOR DTL Chloride, S 101 98 - 107 mmol/L 11/05/2023 5:04 PM BYPRODUCTS PUMP OPERATOR DTL Bicarbonate, S 27 22 - 29 mmol/L 11/05/2023 5:04 PM BYPRODUCTS PUMP OPERATOR DTL Anion Gap 11 7 - 15 11/05/2023 5:04 PM BYPRODUCTS PUMP OPERATOR DTL BUN (Blood Urea Nitrogen), S 17 6 - 21 mg/dL 11/05/2023 5:04 PM BYPRODUCTS PUMP OPERATOR DTL Creatinine 0.76 0.59 - 1.04 mg/dL 11/05/2023 5:04 PM BYPRODUCTS PUMP OPERATOR DTL Estimated GFR (eGFR) 86 >=60 mL/min/BS A 11/05/2023 5:04 PM BYPRODUCTS PUMP OPERATOR DTL Comment: Estimated GFR calculated using the 2020 CKD_EPI creatinine equation. Calcium, Total, S 10.1 8.8 - 10.2 mg/dL 11/05/2023 5:20 PM BYPRODUCTS PUMP OPERATOR DTL Glucose, S 104 70 - 140 mg/dL 11/05/2023 5:04 PM BYPRODUCTS PUMP OPERATOR DTL Protein, Total, S 6.1(L) 6.3 - 7.9 g/dL 11/05/2023 5:04 PM BYPRODUCTS PUMP OPERATOR DTL Albumin, S 4.3 3.5 - 5.0 g/dL 11/05/2023 5:04 PM BYPRODUCTS PUMP OPERATOR DTL Aspartate Aminotransferase (AST), S 16 8 - 43 U/L 11/05/2023 5:04 PM BYPRODUCTS PUMP OPERATOR DTL Alkaline Phosphatase, S 81 35 - 104 U/L 11/05/2023 5:04 PM BYPRODUCTS PUMP OPERATOR DTL Alanine Aminotransferase (ALT), S 16 7 - 45 U/L 11/05/2023 5:04 PM BYPRODUCTS PUMP OPERATOR DTL Bilirubin, Total, S 1.2 0.0 - 1.2 mg/dL 11/05/2023 5:04 PM BYPRODUCTS PUMP OPERATOR DTL Blood (Blood, Venous) 11/05/2023 4:03 PM BYPRODUCTS PUMP OPERATOR 11/05/2023 4:41 PM BYPRODUCTS PUMP OPERATOR Kenya Garza M.D. LAB BLOOD ADD-ON [facility] [address] [place] [address], [facility] DTL [facility] [address] [place] [address] * B-Scan Ultrasound - OD - Right Eye (11/05/2023 1:08 PM BYPRODUCTS PUMP OPERATOR) Narrative OPHTHALMOLGY NON-IMAGING ORDERS - 11/05/2023 6:21 PM BYPRODUCTS PUMP OPERATOR 11/05/2023 B scan right eye: ??Moderate opacities posteriorly. ??Possible vitreous vs shallow retinal detachment. ?? No T sign noted. ?? H Kenya Garza M.D. OPHTH ULTRASOUND Performing Organization Address City/[facility] Co de Phone Number OPHTHALMOLGY NON-IMAGING ORDERS from Last 3 Months Care Teams Levi Maker Relationship Specialty Start Date End Date Elsewhere, Pcp PCP - General Internal Medicine 05/29/19
--- OUTSIDE RECORDS SUMMARY | 2023-11-19 07:35 | XMS_ITS | Encounter Summary ---
Author Name Unknown Organization [facility] Address [address] [place] [address] Care Team Providers Care Car Rental Sales Assistant Name Role Phone Elsewhere, Pcp Primary Care Provider Unavailabl e Encounter Details Date Type Department Care Team (Late st Contact Info) Description 11/18/2023 12:05 AM SCALP TREATMENT SPECIALIST Ancillary Procedure Department of Ophthalmology Arrived Social History Tobacco Use Types Packs/Day Years Used Date Smoking Tobacco: Light Smoker Cigarettes 0.5 39 Started: 02/26/1980 Smokeless Tobacco: Never Comments:On again off again Alcohol Use Standard Drinks/Week Comments Yes 0 (1 standard drink = 0.6 oz pur e alcohol) [facility] Utilities Answer Date Recorded In the past 12 months has [employer], gas, oil, or water company threatened [...] Never 06/27/2020 How often do you attend sabianist or sabianist serv ices? Never 06/27/2020 Do you belong to any clubs o r organizations such as sabianist groups, unions, fraternal or athletic groups, or [...] medical care, and heating? Somewhat hard 06/27/2020 [facility] - Occupational Stress Questionnaire Answer [...] your living situation today? I have a [facility] place to live 11/05/2023 Education Answer [...] st Contact Info) Description 11/25/2023 8:30 AM SCALP TREATMENT SPECIALIST Ancillary Procedure Department of Ophthalmology in [place], [place] [address] [place] [phone] Kenya Garza M.D. [address] [place] [phone] 11/25/2023 9:00 AM SCALP TREATMENT SPECIALIST Ancillary Procedure Department of Ophthalmology in [address] [phone] Kenya Garza M.D. [address] [place] [phone] 11/25/2023 11:15 AM SCALP TREATMENT SPECIALIST Ancillary Procedure Department of Ophthalmology in [address] [phone] Kenya Garza M.D. [address] [place] [phone] 11/25/2023 11:45 AM SCALP TREATMENT SPECIALIST Office Visit Department of Ophthalmology in [address] [phone] Kenya Garza M.D. [address] [place] [phone] documented as of this encounter Procedures Procedure Name Priority Date/Time Associated Diagnosis Comments OPHTHALMOLOGY IMAGE EXAM Routine 11/18/2023 12:05 AM SCALP TREATMENT SPECIALIST documented in this encounter Results * Video-Eyes US-Eye [id number] Image Exam (11/18/2023 12:05 AM SCALP TREATMENT SPECIALIST) Narrative IIMS - 11/18/2023 12:26 PM SCALP TREATMENT SPECIALIST This order has been created and auto-finalized to support the import of images acquired without order. The clinical documentation to support these images can be found on the encounter that produced images. Provider Not In System IMG NON RAD IMAGI NG PROCEDURES I[facility] NA documented in this encounter Visit Diagnoses Not on filedocumented in this encounter Care Teams Car Rental Sales Assistant Relationship Specialty Start Date End Date Elsewhere, Pcp PCP - General Internal Medicine 05/29/19 documented as of this encounter
--- OUTSIDE RECORDS SUMMARY | 2023-11-19 07:36 | XMS_ITS | Encounter Summary ---
Author Name Unknown Organization [facility] Address [address] [place] [address] Care Team Providers Care Fondant Puff Maker Name Role Phone Elsewhere, Pcp Primary Care Provider Unavailabl e Reason for Referral * Outpatient (Routine) - Closed Specialty Diagnoses / Procedures Referred By Apolinar lopez Referred To Contact Ophthalmology Diagnoses Panuveitis Right Kenya Garza M.D. [address] [place] [phone] [facility] Referral ID Status Reason Start Date Expiration Date Visits Re quested Visits Authorized [id number] Closed 11/07/2023 11/06/2026 1 1 OSING ROOM MACHINIST APPRENTICE Reason for Visit * Outpatient (Routine) - Closed Specialty Diagnoses / Procedures Referred By Apolinar lopez Referred To Contact Ophthalmology Kenya Garza M.D. [address] [place] [phone] [facility] Referral ID Status Reason Start Date Expiration Date Visits Re quested Visits Authorized [id number] Closed 11/05/2023 11/04/2026 1 1 Encounter Details Date Type Department Care Team (Latest Contact Info) Description 11/07/2023 11:30 AM COMPOSING ROOM MACHINIST APPRENTICE Office Visit Department of Ophthalmology in [place], [place] [address] [place] [phone] Kenya Garza M.D. [address] [place] [phone] David Billy (Primary Dx) Social History Tobacco Use Types Packs/Day Years Used Date Smoking Tobacco: Light Smoker Cigarettes 0.5 39 Started: 02/26/1980 Smokeless Tobacco: Never Comments:On again off again Alcohol Use Standard Drinks/Week Comments Yes 0 (1 standard drink = 0.6 oz pur e alcohol) [facility] Utilities Answer Date Recorded In the [...] Never 06/27/2020 How often do you attend taoism or islam serv ices? Never 06/27/2020 Do you belong to any clubs o r organizations such as taoism groups, unions, fraternal or athletic groups, or [...] care, and heating? Somewhat hard 06/27/2020 [facility] [place] of Occupat ional Health - Occupational Stress [...] your living situation today? I have a [facility] place to live 11/05/2023 Education Answer [...] Progress Notes * Kenya Garza M.D. - 11/07/2023 11:30 AM CST HPI - 11/05/23 Mrs. Alexandra Dixon is a 68 year old woman who is referred by Dr. Daisy Ivy for evaluation ofuveitis. She woke up with a red, painful, tearing right eye on 10/16/23. Was seen in urgent care on 10/19/23and diagnosed with pink eye, treated with tobramycin drops without improvement. She saw aids nurse Dr. Daisy Ivy on 10/23/23. 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 In August 2023, she was sent from an infusion center to [place] emergency department where shewas found to have oxygen saturations of 78%. CT imaging showed worsening bilateral ground glass opacities. A CT scan was negative for pulmonary embolism. She was transferred to [facility] for additional pulmonology care. 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 Each time she saw her [...] plans to monitor. (Her oncologist is at [facility].) MEDICATIONS Prednisolone every hour while awake [...] shallow retinal detachment. No T sign noted. [facility] Macula OCT of the right eye [...] procedure), but she can resume both tomorrow. TODAY - 11/07/23 No significant change since last visit two days ago. MEDICATIONS Prednisolone every hour while awake right eye Cyclopentolate QID, right eye Valacyclovir 1000 mg TID (started yesterday 11/06/23) EXAM [facility] without correction light perception+P and 20/25 [...] degrees The left eye has no inflammation. PLAN Still most suspicious for acute retinal necrosis, aqueous PCRs pending. Intravitreal antiviral injections were a little less than 48 hours ago, started PO yesterday. CBC showed elevated WBC consistent with known diagnosis of chronic lymphocytic leukemia. Dr. Clemens agreed that the choroid looks suspicious, but the degree of anterior chamber and vitreous inflammation would be atypical for a choroidal lymphoma. If there continues to be clinical suspicion for lymphoma, then we will get an MRI of the orbits. Continue the current eye drop and PO antiviral regimen. Follow up on 11/11/23 at 11:15am: [facility], trop both eyes, B-scan right eye, [facility] OSING ROOM MACHINIST APPRENTICE documented in this encounter Plan of Treatment Upcoming Encounters Date Type Department Care Team (Late st Contact Info) Description 11/25/2023 8:30 AM COMPOSING ROOM MACHINIST APPRENTICE Ancillary Procedure Department of Ophthalmology in [place], [place] [address] [place] [phone] Kenya Garza M.D. [address] [place] [phone] 11/25/2023 9:00 AM COMPOSING ROOM MACHINIST APPRENTICE Ancillary Procedure Department of Ophthalmology in [place], [place] [address] [place] [phone] Kenya Garza M.D. [address] [place] [phone] 11/25/2023 11:15 AM COMPOSING ROOM MACHINIST APPRENTICE Ancillary Procedure Department of Ophthalmology in [place], [place] [address] [place] [phone] Kenya Garza M.D. [address] [place] [phone] 11/25/2023 11:45 AM COMPOSING ROOM MACHINIST APPRENTICE Office Visit Department of Ophthalmology in [place], [place] [address] [place] [phone] Kenya Garza M.D. [address] [place] [phone] Scheduled Referrals Name Type Priority Associated Diagnoses Order Schedule Ophthalmology office visit (clinic) Outpatient Referral Routine Panuveitis Right Expected: 11/11/2023, Expires: 11/07/2026 documented as of this encounter Results * B-Scan Ultrasound - OD - Right Eye (11/11/2023 11:24 AM COMPOSING ROOM MACHINIST APPRENTICE) Narrative OPHTHALMOLGY NON-IMAGING ORDERS - 11/11/2023 2:56 PM COMPOSING ROOM MACHINIST APPRENTICE 11/11/2023 B scan right eye: Moderate-dense vitreous opacities. ??Vitreous membranes. ?Possible posterior thickening. ?? No T sign. ?? SL Kenya Garza M.D. OPHTH ULTRASOUND OPHTHALMOLGY NON-IMAGING ORDERS documented in this encounter Visit Diagnoses Diagnosis Panuveitis Right- Primary Panuveitis Right documented in this encounter Care Teams Fondant Puff Maker Relationship Specialty Start Date End Date Elsewhere, Pcp PCP - General Internal Medicine 05/29/19 documented as of this encounter
--- OUTSIDE RECORDS SUMMARY | 2023-11-19 07:36 | XMS_ITS | Encounter Summary ---
Author Name Unknown Organization [facility] Address [address] [place] [address] Care Team Providers Care Trimming Cutter Machine Name Role Phone Elsewhere, Pcp Primary Care Provider Unavailabl e Reason for Referral * Outpatient (Routine) - Closed Specialty Diagnoses / Procedures Referred By Apolinar lopez Referred To Contact Diagnoses Uveitis Procedures Paracentesis of Anterior Chamber, Diagnostic - OD - Right Eye Kenya Garza M.D. [address] [place] [phone] [facility] Referral ID Status Reason Start Date Expiration Date Visits Re quested Visits Authorized [id number] Closed 11/05/2023 11/04/2024 1 1 RIGHT MANAGER * Outpatient (Routine) - Closed Specialty Diagnoses / Procedures Referred By Apolinar lopez Referred To Contact Diagnoses Uveitis Procedures Intravitreal Injection, Pharmacologic Agent - OD - Right Eye [place] FOSCARNET SODIUM INJECTION W[place] GANCICLOVIR SODIUM INJECTION W[place] INJECTION INTRAVITREAL Kenya Garza M.D. [address] [place] [phone] [facility] Referral ID Status Reason Start Date Expiration Date Visits Re quested Visits Authorized [id number] Closed 11/05/2023 11/04/2024 1 1 RIGHT MANAGER Encounter Details Date Type Department Care Team (Late st Contact Info) Description 11/05/2023 Orders Only Department of Ophthalmology in [place], [place] [address] [place] [phone] Shahnaz Amato, CWhitneyO.A. [address] [place] [phone] Uveitis (Primary Dx) Social History Tobacco Use Types Packs/Day Years Used Date Smoking Tobacco: Light Smoker Cigarettes 0.5 39 Started: 02/26/1980 Smokeless Tobacco: Never Comments:On again off again Alcohol Use Standard Drinks/Week Comments Yes 0 (1 standard drink = 0.6 oz pur e alcohol) [facility] Utilities Answer Date Recorded In [...] Never 06/27/2020 How often do you attend buddhism or mormonism serv ices? Never 06/27/2020 Do you belong to any clubs o r organizations such as buddhism groups, unions, fraternal or athletic groups, or [...] medical care, and heating? Somewhat hard 06/27/2020 [facility] [place] of Occupat ional Health - Occupational Stress [...] your living situation today? I have a [facility] place to live 11/05/2023 Education Answer [...] st Contact Info) Description 11/25/2023 8:30 AM COPYRIGHT MANAGER Ancillary Procedure Department of Ophthalmology in [place], [place] [address] [place] [phone] Kenya Garza M.D. [address] [place] [phone] 11/25/2023 9:00 AM COPYRIGHT MANAGER Ancillary Procedure Department of Ophthalmology in [place], [place] [address] [place] [phone] Kenya Garza M.D. [address] [place] [phone] 11/25/2023 11:15 AM COPYRIGHT MANAGER Ancillary Procedure Department of Ophthalmology in [place], [place] [address] [place] [phone] Kenya Garza M.D. [address] [place] [phone] 11/25/2023 11:45 AM COPYRIGHT MANAGER Office Visit Department of Ophthalmology in [place], [place] [address] [place] [phone] Kenya Garza M.D. [address] [place] [phone] documented as of this encounter Visit Diagnoses Diagnosis Uveitis- Primary documented in this encounter Care Teams Trimming Cutter Machine Relationship Specialty Start Date End Date Elsewhere, Pcp PCP - General Internal Medicine 05/29/19 documented as of this encounter
--- OUTSIDE RECORDS SUMMARY | 2023-11-19 07:36 | XMS_ITS | Encounter Summary ---
Author Name Unknown Organization [facility] Address [address] [place] [address] Care Team Providers Care Keycase Assembler Name Role Phone Elsewhere, Pcp Primary Care Provider Unavailabl e Encounter Details Date Type Department Care Team (Late st Contact Info) Description 11/05/2023 Ancillary Procedure Department of Ophthalmology Social History Tobacco Use Types Packs/Day Years Used Date Smoking Tobacco: Light Smoker Cigarettes 0.5 39 Started: 02/26/1980 Smokeless Tobacco: Never Comments:On again off again Alcohol Use Standard Drinks/Week Comments Yes 0 (1 standard drink = 0.6 oz pur e alcohol) [facility] Utilities Answer Date Recorded In the past 12 months has [employer] electric, gas, oil, or water company threatened [...] Never 06/27/2020 How often do you attend pentecostalism or mosque serv ices? Never 06/27/2020 Do you belong to any clubs o r organizations such as pentecostalism groups, unions, fraternal or athletic groups, or [...] medical care, and heating? Somewhat hard 06/27/2020 [facility] of Occupat ional [facility] - Occupational Stress Questionnaire Answer Date [...] your living situation today? I have a [facility] place to live 11/05/2023 Education Answer [...] st Contact Info) Description 11/25/2023 8:30 AM NEUROSCIENTIST Ancillary Procedure Department of Ophthalmology in [place], [place] [address] [place] [phone] Kenya Garza M.D. [address] [place] [phone] 11/25/2023 9:00 AM NEUROSCIENTIST Ancillary Procedure Department of Ophthalmology in [place], [place] [address] [place] [phone] Kenya Garza M.D. [address] [place] [phone] 11/25/2023 11:15 AM NEUROSCIENTIST Ancillary Procedure Department of Ophthalmology in [place], [place] [address] [place] [phone] Kenya Garza M.D. [address] [place] [phone] 11/25/2023 11:45 AM NEUROSCIENTIST Office Visit Department of Ophthalmology in [place], [place] [address] [place] [phone] Kenya Garza M.D. [address] [place] [phone] documented as of this encounter Procedures Procedure Name Priority Date/Time Associated Diagnosis Comments OPHTHALMOLOGY IMAGE EXAM Routine 11/05/2023 12:00 AM NEUROSCIENTIST documented in this encounter Results * Eyes US-Eye [id number] Image Exam (11/05/2023 12:00 AM NEUROSCIENTIST) Narrative [facility] - 11/05/2023 12:44 PM NEUROSCIENTIST This order has been created and auto-finalized to support the import of images acquired without order. The clinical documentation to support these images can be found on the encounter that produced images. Provider Not In System IMG NON RAD IMAGI NG PROCEDURES [facility] NA documented in this encounter Visit Diagnoses Not on filedocumented in this encounter Care Teams Keycase Assembler Relationship Specialty Start Date End Date Elsewhere, Pcp PCP - General Internal Medicine 05/29/19 documented as of this encounter
--- OUTSIDE RECORDS SUMMARY | 2023-11-19 07:36 | XMS_ITS | Encounter Summary ---
Author Name Unknown Organization [facility] Address [address] [place] [address] Care Team Providers Care Groutman Name Role Phone Elsewhere, Pcp Primary Care Provider Unavailabl e Reason for Referral * Outpatient (Routine) - Closed Specialty Diagnoses / Procedures Referred By Apolinar lopez Referred To Contact Diagnoses Uveitis Procedures Intravitreal Injection, Pharmacologic Agent - OD - Right Eye [place] GANCICLOVIR SODIUM INJECTION [place] FOSCARNET SODIUM INJECTION [place] INJECTION INTRAVITREAL Kenya Garza M.D. [address] [place] [phone] [facility] Referral ID Status Reason Start Date Expiration Date Visits Re quested Visits Authorized [id number] Closed 11/05/2023 11/04/2024 1 1 ALL AND REPAIR TECHNICIAN * Outpatient (Routine) - Closed Specialty Diagnoses / Procedures Referred By Apolinar lopez Referred To Contact Ophthalmology Kenya Garza M.D. [address] [place] [phone] [facility] Referral ID Status Reason Start Date Expiration Date Visits Re quested Visits Authorized [id number] Closed 11/05/2023 11/04/2026 1 1 ALL AND REPAIR TECHNICIAN Reason for Visit * Reason Comments Blurred Vision * Appointment Request (Routine) - Closed Specialty Diagnoses / Procedures Referred By Apolinar lopez Referred To Contact Ophthalmology Diagnoses Iridocyclitis Chronic Bilateral Daisy Ivy O.D. [address], [place] [address] Referral ID Status Reason Start Date Expiration Date Visits Re quested Visits Authorized [id number] Closed 10/30/2023 10/29/2024 1 1 Encounter Details Date Type Department Care Team (Latest Contact Info) Description 11/05/2023 1:30 PM INSTALL AND REPAIR TECHNICIAN Comprehensive Visit Department of Ophthalmology in [place], [place] [address] [place] [phone] Kenya Garza M.D. [address] [place] [phone] Panuveitis Right (Primary Dx); Uveitis Social History Tobacco Use Types Packs/Day Years Used Date Smoking Tobacco: Light Smoker Cigarettes 0.5 39 Started: 02/26/1980 Smokeless Tobacco: Never Comments:On again off again Alcohol Use Standard Drinks/Week Comments Yes 0 (1 standard drink = 0.6 oz pur e alcohol) [facility] [employer] Answer Date Recorded In the past 12 months has th [employer] electric, gas, oil, or water company threatened [...] Never 06/27/2020 How often do you attend spiritism or hinduism serv ices? Never 06/27/2020 Do you belong to any clubs o r organizations such as spiritism groups, unions, fraternal or athletic groups, or [...] medical care, and heating? Somewhat hard 06/27/2020 [facility] - Occupational Stress Questionnaire Answer [...] your living situation today? I have a [facility] place to live 11/05/2023 Education Answer [...] PM CDT documented as of this encounter Patient Instructions * Patient Instructions* Kenya Garza M.D. - 11/05/2023 1:30 PM INSTALL AND REPAIR TECHNICIAN You have panuveitis in your right eye. It could be caused by the shingles virus or the cold sore virus. We collected aqueous fluid from the front of the right eye to test for viral DNA. We also injected two antiviral medications in your right eye. Do not use your medication eye drops for the rest of today. Restart them tomorrow. Return to see Dr. Garza on Saturday Call with questions or new symptoms: [phone] ALL AND REPAIR TECHNICIAN documented in this encounter Consult Notes * Kenya Garza M.D. - 11/05/2023 1:30 PM CST HPI Mrs. Alexandra Dixon is a 68 year old woman who is referred by Dr. Daisy Ivy for evaluation ofuveitis. She woke up with a red, painful, tearing right eye on 10/16/23. Was seen in urgent care on 10/19/23and diagnosed with pink eye, treated with tobramycin drops without improvement. She saw press cleaner Dr. Daisy Ivy on 10/23/23. 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 In August 2023, she was sent from an infusion center to [facility] emergency department where shewas found to have oxygen saturations of 78%. CT imaging showed worsening bilateral ground glass opacities. A CT scan was negative for pulmonary embolism. She was transferred to [facility] in [facility] for additional pulmonology care. On 09/12/23 she [...] # History of type 2 diabetes mellitus TODAY - 11/05/23 She had shingles about three years ago: it was a bullseye rash in the middle of her back by her report. She did have Shingrix vaccination after that. She was in the hospital three times in the past three months: [facility] (09/02/23 for hypercalcemiaand acute kidney injury - had CT chest/abdomen/pelvis to assess for malignancy), [facility] again. Each time she saw her [...] plans to monitor. (Her oncologist is at [facility].) MEDICATIONS Prednisolone every hour while awake right eye Cyclopentolate QID, right eye EXAM VA without correction HM and 20/30 (PH [...] shallow retinal detachment. No T sign noted. [facility] Macula OCT of the right eye shows irregular thickening with extensive inner retina wrinkling plus choroidal undulations and thickening. There is no obvious intraretinal fluid or subretinal fluid. OCTof the left is essentially normal. PLAN The findings are concerning for acute retinal [...] procedure), but she can resume both tomorrow. Follow up on 11/08/23 at 11:30am: [facility], [facility], trop both eyes, [facility] ALL AND REPAIR TECHNICIAN documented in this encounter Plan of Treatment Upcoming Encounters Date Type Department Care Team (Late st Contact Info) Description 11/25/2023 8:30 AM INSTALL AND REPAIR TECHNICIAN Ancillary Procedure Department of Ophthalmology in [place], [place] [address] [place] [phone] Kenya Garza M.D. [address] [place] [phone] 11/25/2023 9:00 AM INSTALL AND REPAIR TECHNICIAN Ancillary Procedure Department of Ophthalmology in [place], [place] [address] [place] [phone] Kenya Garza M.D. [address] [place] [phone] 11/25/2023 11:15 AM INSTALL AND REPAIR TECHNICIAN Ancillary Procedure Department of Ophthalmology in [place], [place] [address] [place] [phone] Kenya Garza M.D. [address] [place] [phone] 11/25/2023 11:45 AM INSTALL AND REPAIR TECHNICIAN Office Visit Department of Ophthalmology in [place], [place] [address] [place] [phone] Kenya Garza M.D. [address] [place] [phone] Scheduled Referrals Name Type Priority Associated Diagnoses Order Schedule Ophthalmology office visit (clinic) Outpatient Referral Routine Expected: 11/08/2023, Expires: 11/05/2026 documented as of this encounter Procedures Procedure Name Priority Date/Time Associated Diagnosis Comments INTRAVITREAL INJECTION, PHARMACOLOGIC AGENT - OD - RIGHT EYE Routine 11/05/2023 6:27 PM INSTALL AND REPAIR TECHNICIAN Uveitis VARICELLA-ZOSTER VIRUS PCR, V Routine 11/05/2023 4:22 PM INSTALL AND REPAIR TECHNICIAN Uveitis CYTOMEGALOVIRUS PCR Routine 11/05/2023 4 :22 PM INSTALL AND REPAIR TECHNICIAN Uveitis HERPES SIMPLEX VIRUS PCR Routine 11/05/2023 4:22 PM INSTALL AND REPAIR TECHNICIAN Uveitis documented in this encounter Results * Intravitreal Injection, Pharmacologic Agent - OD - Right Eye (11/05/2023 6:27 PM INSTALL AND REPAIR TECHNICIAN) Narrative OPHTHALMOLGY NON-IMAGING ORDERS - 11/05/2023 6:27 PM INSTALL AND REPAIR TECHNICIAN Pre-Procedure Verification Pre-procedure verification conducted to verify [...] mcg/0.1 mL ??Route: intravitreal, Site: Right Eye ??[facility]: [id number], Lot: [id number], Expiration date: 11/09/2023 2,000 mcg ganciclovir 2000 mcg/0.05 mL ??Route: intravitreal, Site: Right Eye ??[facility]: [id number], Lot: [id number], Expiration date: 11/06/2023 Anterior Chamber Tap was Done. Balanced salt solution irrigation to injected eye after the injection was Done. Notes An anterior chamber paracentesis was performed first - approximately 150 uL of yellow liquid was aspirated. The injections were performed in the inferotemporal quadrant immediately after the anterior chamber tap. Kenya Garza M.D. OPH CLINIC PROCEDU RES OPHTHALMOLGY NON-IMAGING ORDERS * Varicella-Zoster Virus PCR (11/05/2023 4:22 PM INSTALL AND REPAIR TECHNICIAN) Specimen Source right eye 3:52 PM INSTALL AND REPAIR TECHNICIAN DTL Comment: The volume/amount received was suboptimal, and therefore, the sample was diluted to the appropriate volume for testing. A negative result should not rule out the disease. Varicella-Zoster Virus PCR Negative Negative 11/07/2023 3:52 PM INSTALL AND REPAIR TECHNICIAN DTL Comment: A suboptimal volume of specimen was received, and therefore, the sample was diluted to the appropriate volume for testing. A negative result does not rule out infection. ----ADDITIONAL INFORMATION---- This test was developed and its performance characteristics determined by [facility] in a manner consistent with CLIA requirements. This test has not been cleared or approved by the U.S. Food and Drug Administration. Fluid (Aqueous Humor, Right) 11/05/2023 4:22 PM INSTALL AND REPAIR TECHNICIAN 11/05/2023 6:26 PM INSTALL AND REPAIR TECHNICIAN Kenya Garza M.D. LAB MICROBIOLOGY - G ENERAL ORDERABLES Performing Organization Address [facility] Co de Phone Number [facility] [address] [place] [address], [facility] DTL [address] [facility] [address] [place] [address] * (ABNORMAL) Herpes Simplex Virus PCR (11/05/2023 4:22 PM INSTALL AND REPAIR TECHNICIAN) Specimen Source right eye 9:33 PM INSTALL AND REPAIR TECHNICIAN DTL Comment: The volume/amount received was suboptimal, and therefore, the sample was diluted to the appropriate volume for testing. A negative result should not rule out the disease. HSV 1, PCR Negative Negative 11/07/2023 9:33 PM INSTALL AND REPAIR TECHNICIAN DTL HSV 2, PCR Positive(C) Negative 11/07/2023 9:33 PM INSTALL AND REPAIR TECHNICIAN DTL Comment: ----ADDITIONAL INFORMATION---- This test was developed and its performance characteristics determined by [facility] in a manner consistent with CLIA requirements. This test has not been cleared or approved by the U.S. Food and Drug Administration. Fluid (Aqueous Humor, Right) 11/05/2023 4:22 PM INSTALL AND REPAIR TECHNICIAN 11/05/2023 6:26 PM INSTALL AND REPAIR TECHNICIAN Kenya Garza M.D. LAB MICROBIOLOGY - G ENERAL ORDERABLES Performing Organization Address [facility] Co de Phone Number [facility] [address] [place] [address], [facility] DTL 200 [facility] [address] [facility] [address] [place] [address] * Cytomegalovirus PCR (11/05/2023 4:22 PM INSTALL AND REPAIR TECHNICIAN) Specimen Source right eye 3:08 PM INSTALL AND REPAIR TECHNICIAN DTL Comment: The volume/amount received was suboptimal, and therefore, the sample was diluted to the appropriate volume for testing. A negative result should not rule out the disease. Cytomegalovirus PCR Negative Negative 11/07 3:08 PM INSTALL AND REPAIR TECHNICIAN DTL Comment: A suboptimal volume of specimen was received, and therefore, the sample was diluted to the appropriate volume for testing. A negative result does not rule out infection. ----ADDITIONAL INFORMATION---- This test was developed and its performance characteristics determined by [facility] in a manner consistent with CLIA requirements. This test has not been cleared or approved by the U.S. Food and Drug Administration. Fluid (Aqueous Humor, Right) 11/05/2023 4:22 PM INSTALL AND REPAIR TECHNICIAN 11/05/2023 6:26 PM INSTALL AND REPAIR TECHNICIAN Kenya Garza M.D. LAB MICROBIOLOGY - G [facility] ORDERABLES [facility] [address] [place], [place] [phone] [place] [address] DTL [address] [facility] [address] [place] [address] * (ABNORMAL) Comprehensive Metabolic Panel (11/05/2023 4:03 PM INSTALL AND REPAIR TECHNICIAN) Potassium, S 4.4 3.6 - 5.2 mmol/L 11/05/2023 5:04 PM INSTALL AND REPAIR TECHNICIAN DTL Sodium, S 139 135 - 145 mmol/L 11/05/2023 5:04 PM INSTALL AND REPAIR TECHNICIAN DTL Chloride, S 101 98 - 107 mmol/L 11/05/2023 5:04 PM INSTALL AND REPAIR TECHNICIAN DTL Bicarbonate, S 27 22 - 29 mmol/L 11/05/2023 5:04 PM INSTALL AND REPAIR TECHNICIAN DTL Anion Gap 11 7 - 15 11/05/2023 5:04 PM INSTALL AND REPAIR TECHNICIAN DTL BUN (Blood Urea Nitrogen), S 17 6 - 21 mg/dL 11/05/2023 5:04 PM INSTALL AND REPAIR TECHNICIAN DTL Creatinine 0.76 0.59 - 1.04 mg/dL 11/05/2023 5:04 PM INSTALL AND REPAIR TECHNICIAN DTL Estimated GFR (eGFR) 86 >=60 mL/min/BS A 11/05/2023 5:04 PM INSTALL AND REPAIR TECHNICIAN DTL Comment: Estimated GFR calculated using the 2020 CKD_EPI creatinine equation. Calcium, Total, S 10.1 8.8 - 10.2 mg/dL 11/05/2023 5:20 PM INSTALL AND REPAIR TECHNICIAN DTL Glucose, S 104 70 - 140 mg/dL 11/05/2023 5:04 PM INSTALL AND REPAIR TECHNICIAN DTL Protein, Total, S 6.1(L) 6.3 - 7.9 g/dL 11/05/2023 5:04 PM INSTALL AND REPAIR TECHNICIAN DTL Albumin, S 4.3 3.5 - 5.0 g/dL 11/05/2023 5:04 PM INSTALL AND REPAIR TECHNICIAN DTL Aspartate Aminotransferase (AST), S 16 8 - 43 U/L 11/05/2023 5:04 PM INSTALL AND REPAIR TECHNICIAN DTL Alkaline Phosphatase, S 81 35 - 104 U/L 11/05/2023 5:04 PM INSTALL AND REPAIR TECHNICIAN DTL Alanine Aminotransferase (ALT), S 16 7 - 45 U/L 11/05/2023 5:04 PM INSTALL AND REPAIR TECHNICIAN DTL Bilirubin, Total, S 1.2 0.0 - 1.2 mg/dL 11/05/2023 5:04 PM INSTALL AND REPAIR TECHNICIAN DTL Blood (Blood, Venous) 11/05/2023 4:03 PM INSTALL AND REPAIR TECHNICIAN 11/05/2023 4:41 PM INSTALL AND REPAIR TECHNICIAN Kenya Garza M.D. LAB BLOOD ADD-ON [facility] [address] [place] [address], [facility] [address] [place] [address] * (ABNORMAL) CBC with Differential, Blood (11/05/2023 4:03 PM INSTALL AND REPAIR TECHNICIAN) Hemoglobin 12.2 11.6 - 15.0 g/dL 11/05/2023 4:32 PM INSTALL AND REPAIR TECHNICIAN DTL Hematocrit 38.7 35.5 - 44.9 % 11/05/2023 4:32 PM INSTALL AND REPAIR TECHNICIAN DTL Erythrocytes 4.09 3.92 - 5.13 x10(12)/L 11/05/2023 4:32 PM INSTALL AND REPAIR TECHNICIAN DTL MCV 94.6 78.2 - 97.9 fL 11/05/2023 4:32 PM INSTALL AND REPAIR TECHNICIAN DTL RBC Distrib Width 15.8 12.2 - 16.1 % 11/05/2023 4:32 PM INSTALL AND REPAIR TECHNICIAN DTL Platelet Count 235 157 - 371 x10(9)/L 11/05/2023 4:32 PM INSTALL AND REPAIR TECHNICIAN DTL Leukocytes 22.4(H) 3.4 - 9.6 x10(9)/L 11/05/2023 6:22 PM INSTALL AND REPAIR TECHNICIAN DTL Comment:Results confirmed by smear. Neutrophils See Comment 1.56 - 6.45 x10(9)/L 11/05/2023 6:22 PM INSTALL AND REPAIR TECHNICIAN PM Comment:Auto-diff results no t valid. See manual differential. Blood (Blood, Venous) 11/05/2023 4:03 PM INSTALL AND REPAIR TECHNICIAN 11/05/2023 4:24 PM INSTALL AND REPAIR TECHNICIAN Kenya Garza M.D. LAB BLOOD ADD-ON [facility] [address] [place] [address], [facility] DTL [facility] [address] [place] [address] [facility] [address] [place] [address] documented in this encounter Visit Diagnoses Diagnosis Panuveitis Right- Primary Uveitis documented in this encounter Administered Medications Inactive Administered Medications - up to 3 most recent administrations Medication Order MAR Action Action Date Dose Rate Site foscarnet 2,400 mcg/0.1 mL intraocular injection 2,400 mcg (FOSCAVIR) 2,400 mcg, intravitreal, One-Time Injection, Starting on Sat11/05/23 at 1827, For 1 dose Given 11/05/2023 6:27 PM INSTALL AND REPAIR TECHNICIAN 2,400 mcg R ight Eye ganciclovir intraocular injection 2,000 mcg (CYTOVENE) 2,000 mcg, intravitreal, One-Time Injection, Starting on Sat11/05/23 at 1827, For 1 dose Given 11/05/2023 6:27 PM INSTALL AND REPAIR TECHNICIAN 2,000 mcg R ight Eye documented in this encounter Care Teams Groutman Relationship Specialty Start Date End Date Elsewhere, Pcp PCP - General Internal Medicine 05/29/19 documented as of this encounter
--- OUTSIDE RECORDS SUMMARY | 2023-11-19 07:36 | XMS_ITS | Encounter Summary ---
Author Name Unknown Organization [facility] Address [address] [place] [address] Care Team Providers Care Home Hospice Aide Name Role Phone Elsewhere, Pcp Primary Care Provider Unavailabl e Reason for Referral * Outpatient (Routine) - Closed Specialty Diagnoses / Procedures Referred By Apolinar lopez Referred To Contact Ophthalmology Diagnoses Panuveitis Right Necrosis Retinal Acute Right Kenya Garza M.D. [address] [place] [phone] [facility] Referral ID Status Reason Start Date Expiration Date Visits Re quested Visits Authorized [id number] Closed 11/11/2023 11/10/2026 1 1 IT ADJUSTER Reason for Visit * Outpatient (Routine) - Closed Specialty Diagnoses / Procedures Referred By Apolinar lopez Referred To Contact Ophthalmology Diagnoses Panuveitis Right Kenya Garza M.D. [address] [place] [address] [facility] Referral ID Status Reason Start Date Expiration Date Visits Re quested Visits Authorized [id number] Closed 11/07/2023 11/06/2026 1 1 Encounter Details Date Type Department Care Team (Latest Contact Info) Description 11/11/2023 11:15 AM CREDIT ADJUSTER Office Visit Department of Ophthalmology in [place], [place] [address] [place] [phone] Kenya Garza M.D. [address] [place] [phone] Panuveitis Right (Primary Dx); Necrosis Retinal Acute Right Social History Tobacco Use Types Packs/Day Years Used Date Smoking Tobacco: Light Smoker Cigarettes 0.5 39 Started: 02/26/1980 Smokeless Tobacco: Never Comments:On again off again Alcohol Use Standard Drinks/Week Comments Yes 0 (1 standard drink = 0.6 oz pur e alcohol) [facility] Utilities Answer Date Recorded In the past [...] Never 06/27/2020 How often do you attend sikhism or restorationist serv ices? Never 06/27/2020 Do you belong to any clubs o r organizations such as sikhism groups, unions, fraternal or athletic groups, or [...] medical care, and heating? Somewhat hard 06/27/2020 [facility] [place] of Occupat ional Health - Occupational Stress [...] your living situation today? I have a [facility] place to live 11/05/2023 Education Answer [...] * Patient Instructions* Kenya Garza M.D. 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 Please continue the oral valacyclovir medication, 1000 mg tablet Take 1 tablet, three times per day. We will try switching to a stronger steroid eye drop, difluprednate. Please continue prednisolone eye drops until you can pick up driver the new eye drop. Use the new eye drop, difluprednate, 4 times per day. Continue cyclopentolate (red top) - 4 times per day Return to see Dr. Garza in 1 week. We will repeat the ultrasound and take color photos of your right eye Call with questions or new symptoms: [phone] IT ADJUSTER documented in this encounter Progress Notes * Kenya Garza M.D. - 11/11/2023 11:15 AM CST HPI - 11/05/23 Mrs. Alexandra Dixon is a 68 year old woman who is referred by Dr. Daisy Ivy for evaluation ofuveitis. She woke up with a red, painful, tearing right eye on 10/16/23. Was seen in urgent care on 10/19/23and diagnosed with pink eye, treated with tobramycin drops without improvement. She saw inspector aligning Dr. Daisy Ivy on 10/23/23. 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 In August 2023, she was sent from an infusion center to [facility] emergency department where shewas found to have oxygen saturations of 78%. CT imaging showed worsening bilateral ground glass opacities. A CT scan was negative for pulmonary embolism. She was transferred to [facility] for additional pulmonology care. On 09/12/23 she [...] three times in the past three months: [facility] (09/02/23 for hypercalcemiaand acute kidney injury - had CT chest/abdomen/pelvis to assess for malignancy), [facility] again. Each time she saw her oncologist, [...] plans to monitor. (Her oncologist is at [facility].) MEDICATIONS Prednisolone every hour while awake [...] shallow retinal detachment. No T sign noted. [facility] Macula OCT of the right eye [...] current eye drop and PO antiviral regimen. TODAY - 11/11/23 She has noticed a little improvement in vision since last visit. 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 Possible posterior thickening. No T sign. 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 CBC showed elevated WBC consistent with known diagnosis of chronic lymphocytic leukemia. Dr. Clemens agreed that the choroid looks suspicious, but the degree of anterior chamber and vitreous inflammation would be atypical for a choroidal lymphoma. If there continues to be clinical suspicion for lymphoma, then we will get an MRI of the orbits. Continue PO valacyclovir 1 g TID Switch from prednisolone to Durezol QID right eye Continue cyclopentolate drops - can decrease slightly to TID in the right eye. Follow up in 1 week on 11/18/23 at noon: [facility], [facility], trop both eyes, B-scan right eye, topcon color photos right, WMS IT ADJUSTER documented in this encounter Plan of Treatment Upcoming Encounters Date Type Department Care Team (Late st Contact Info) Description 11/25/2023 8:30 AM CREDIT ADJUSTER Ancillary Procedure Department of Ophthalmology in [place], [place] [address] [place] [phone] Kenya Garza M.D. [address] [place] [phone] 11/25/2023 9:00 AM CREDIT ADJUSTER Ancillary Procedure Department of Ophthalmology in [place], [place] [address] [place] [phone] Kenya Garza M.D. [address] [place] [phone] 11/25/2023 11:15 AM CREDIT ADJUSTER Ancillary Procedure Department of Ophthalmology in [place], [place] [address] [place] [phone] Kenya Garza M.D. [address] [place] [phone] 11/25/2023 11:45 AM CREDIT ADJUSTER Office Visit Department of Ophthalmology in [address] [phone] Kenya Garza M.D. [address] [place] [phone] Scheduled Referrals Name Type Priority Associated Diagnoses Order Schedule Ophthalmology office visit (clinic) Outpatient Referral Routine Panuveitis Right Necrosis Retinal Acute Right Expected: 11/18/2023, Expires: 11/11/2026 documented as of this encounter Results * B-Scan Ultrasound - OD - Right Eye (11/18/2023 12:33 PM CREDIT ADJUSTER) Narrative OPHTHALMOLGY NON-IMAGING ORDERS - 11/18/2023 12:41 PM CREDIT ADJUSTER 11/18/2023 B scan right eye: ?? Moderate-dense vitreous opacities. ?? Unable to rule out shallow detachment vs subhyaloid opacities. ?No T sign noted. ?? [facility] Kenya Garza M.D. OPHTH ULTRASOUND Performing Organization Address [facility] Co de Phone Number OPHTHALMOLGY NON-IMAGING ORDERS * Fundus Photos - OD - Right Eye (11/18/2023 8:05 AM CREDIT ADJUSTER) Narrative OPHTHALMOLOGY IMAGING EXAM - 11/18/2023 10:45 AM CREDIT ADJUSTER Field of view is ultra-wide view. Fundus photo type obtained is Color, Autofluorescence. Notes [employer] color photos: confirm exam findings Kenya Garza M.D. OPHTH PHOTOGRAPHY Performing Organization Address [facility] Co de Phone Number OPHTHALMOLOGY IMAGING EXAM documented in this encounter Visit Diagnoses Diagnosis Panuveitis Right- Primary Necrosis Retinal Acute Right Panuveitis Right Necrosis Retinal Acute Right Panuveitis Right Necrosis Retinal Acute Right documented in this encounter Care Teams Home Hospice Aide Relationship Specialty Start Date End Date Elsewhere, Pcp PCP - General Internal Medicine 05/29/19 documented as of this encounter
--- OUTSIDE RECORDS SUMMARY | 2023-11-19 07:36 | XMS_ITS | Encounter Summary ---
Author Name Unknown Organization [facility] Address [address] [place] [address] Care Team Providers Care Drafter Electronic Name Role Phone Elsewhere, Pcp Primary Care Provider Unavailabl e Encounter Details Date Type Department Care Team (Late st Contact Info) Description 11/04/2023 Orders Only Department of Ophthalmology in [place], [place] [address] [place] [address] Shahnaz Amato, C.O.A. [address] [place] [phone] Uveitis (Primary Dx) Social History Tobacco Use Types Packs/Day Years Used Date Smoking Tobacco: Light Smoker Cigarettes 0.5 39 Started: 02/26/1980 Smokeless Tobacco: Never Comments:On again off again Alcohol Use Standard Drinks/Week Comments Yes 0 (1 standard drink = 0.6 oz pur e alcohol) [facility] Utilities Answer Date Recorded In the past 12 months has [employer] electric, gas, oil, or water company threatened [...] Never 06/27/2020 How often do you attend jain or christian serv ices? Never 06/27/2020 Do you belong to any clubs o r organizations such as jain groups, unions, fraternal or athletic groups, or [...] medical care, and heating? Somewhat hard 06/27/2020 [facility] [place] of Occupat ional Health - Occupational Stress [...] your living situation today? I have a [facility] place to live 11/05/2023 Education Answer [...] st Contact Info) Description 11/25/2023 8:30 AM AUTOMOBILE DEALER Ancillary Procedure Department of Ophthalmology in [place], [place] [address] [place] [phone] Kenya Garza M.D. [address] [place] [phone] 11/25/2023 9:00 AM AUTOMOBILE DEALER Ancillary Procedure Department of Ophthalmology in [place], [place] [address] [place] [phone] Kenya Garza M.D. [address] [place] [phone] 11/25/2023 11:15 AM AUTOMOBILE DEALER Ancillary Procedure Department of Ophthalmology in [place], [place] [address] [place] [phone] Kenya Garza M.D. [address] [place] [phone] 11/25/2023 11:45 AM AUTOMOBILE DEALER Office Visit Department of Ophthalmology in [place], [place] [address] [place] [phone] Kenya Garza M.D. [address] [place] [phone] Scheduled Orders Name Type Priority Associated Diagnoses Order Schedule Ophthalmology Pupil Test Ophthalmology Routine Uveitis 1 Occurrences starting 11/04/2023 until 02/02/2025 documented as of this encounter Results * Optical Coherence Tomography - Macula/Retina - OU - Both Eyes (11/05/2023 4:39 PM AUTOMOBILE DEALER) CMT L Microns 256 um OPH THALMOLOGY IMAGING EXAM Narrative OPHTHALMOLOGY IMAGING EXAM - 11/05/2023 6:25 PM AUTOMOBILE DEALER Right Eye Reliability was good. OCT device [...] Garza M.D. OPHTH TOMOGRAPHY OPHTHALMOLOGY IMAGING EXAM documented in this encounter Visit Diagnoses Diagnosis Uveitis- Primary Uveitis documented in this encounter Care Teams Drafter Electronic Relationship Specialty Start Date End Date Elsewhere, Pcp PCP - General Internal Medicine 05/29/19 documented as of this encounter
--- OUTSIDE RECORDS SUMMARY | 2023-11-19 07:36 | XMS_ITS | Encounter Summary ---
Author Name Unknown Organization [facility] Address [address] [place] [address] Care Team Providers Care Sweatband Cutting Machine Operator Name Role Phone Elsewhere, Pcp Primary Care Provider Unavailabl e Encounter Details Date Type Department Care Team (Late st Contact Info) Description 11/05/2023 12:05 AM CROP RANCH HAND Ancillary Procedure Department of Ophthalmology Social History Tobacco Use Types Packs/Day Years Used Date Smoking Tobacco: Light Smoker Cigarettes 0.5 39 Started: 02/26/1980 Smokeless Tobacco: Never Comments:On again off again Alcohol Use Standard Drinks/Week Comments Yes 0 (1 standard drink = 0.6 oz pur e alcohol) [facility] Utilities Answer Date Recorded In the past 12 months has th [employer] electric, gas, oil, or water company threatened [...] Never 06/27/2020 How often do you attend jainism or sikh serv ices? Never 06/27/2020 Do you belong to any clubs o r organizations such as jainism groups, unions, fraternal or athletic groups, or [...] medical care, and heating? Somewhat hard 06/27/2020 [facility] Questionnaire Answer Date Recorded [...] your living situation today? I have a [facility] place to live 11/05/2023 Education Answer Date [...] st Contact Info) Description 11/25/2023 8:30 AM CROP RANCH HAND Ancillary Procedure Department of Ophthalmology in [place], [place] [address] [place] [phone] Kenya Garza M.D. [address] [place] [phone] 11/25/2023 9:00 AM CROP RANCH HAND Ancillary Procedure Department of Ophthalmology in [address] [phone] Kenya Garza M.D. [address] [place] [phone] 11/25/2023 11:15 AM CROP RANCH HAND Ancillary Procedure Department of Ophthalmology in [address] [phone] Kenya Garza M.D. [address] [place] [phone] 11/25/2023 11:45 AM CROP RANCH HAND Office Visit Department of Ophthalmology in [place], [place] [address] [place] [phone] Kenya Garza M.D. [address] [place] [phone] documented as of this encounter Procedures Procedure Name Priority Date/Time Associated Diagnosis Comments OPHTHALMOLOGY IMAGE EXAM Routine 11/05/2023 12:05 AM CROP RANCH HAND documented in this encounter Results * Eyes Spectralis OCT-Ophthalmology Image Exam (11/05/2023 12:05 AM CROP RANCH HAND) Narrative IIMS - 11/05/2023 12:55 PM CROP RANCH HAND This order has been created and auto-finalized to support the import of images acquired without order. The clinical documentation to support these images can be found on the encounter that produced images. Provider Not In System IMG NON RAD IMAGI NG PROCEDURES IIMS NA documented in this encounter Visit Diagnoses Not on filedocumented in this encounter Care Teams Sweatband Cutting Machine Operator Relationship Specialty Start Date End Date Elsewhere, Pcp PCP - General Internal Medicine 05/29/19 documented as of this encounter
--- OUTSIDE RECORDS SUMMARY | 2023-11-19 07:36 | XMS_ITS | Encounter Summary ---
Author Name Unknown Organization [facility] Address [address] [place] [address] Care Team Providers Care Tooth Clerk Name Role Phone Elsewhere, Pcp Primary Care Provider Unavailabl e Encounter Details Date Type Department Care Team (Latest Contact Info) Description 11/11/2023 10:00 AM RECREATION PROGRAMMER Ancillary Procedure Department of Ophthalmology in [place], [place] [address] [place] [address] Kenya Garza M.D. [address] [place] [phone] Panuveitis Right Social History Tobacco Use Types Packs/Day Years Used Date Smoking Tobacco: Light Smoker Cigarettes 0.5 39 Started: 02/26/1980 Smokeless Tobacco: Never Comments:On again off again Alcohol Use Standard Drinks/Week Comments Yes 0 (1 standard drink = 0.6 oz pur e alcohol) [facility] Utilities Answer Date Recorded In the past 12 months has [employer], gas, oil, or water [employer] threatened to shut off services in your home? No 11/05/2023 Social Connection and Isolation Panel [NHANES] A nswer Date Recorded In a typical week, how many times do you talk on the phone with family, friends, or neighbors? Once a week 06/27/2020 How often do you get together with friends or re latives? Never 06/27/2020 How often do you attend zoroastrianism or caodaism serv ices? Never 06/27/2020 Do you belong to any clubs o r organizations such as zoroastrianism groups, unions, fraternal or athletic groups, or [...] medical care, and heating? Somewhat hard 06/27/2020 [facility] [place] of Occupat ional Health - Occupational Stress [...] st Contact Info) Description 11/25/2023 8:30 AM RECREATION PROGRAMMER Ancillary Procedure Department of Ophthalmology in [place], [place] [address] [place] [phone] Kenya Garza M.D. [address] [place] [phone] 11/25/2023 9:00 AM RECREATION PROGRAMMER Ancillary Procedure Department of Ophthalmology in [place], [place] [address] [place] [phone] Kenya Garza M.D. [address] [place] [phone] 11/25/2023 11:15 AM RECREATION PROGRAMMER Ancillary Procedure Department of Ophthalmology in [place], [place] [address] [place] [phone] Kenya Garza M.D. [address] [place] [phone] 11/25/2023 11:45 AM RECREATION PROGRAMMER Office Visit Department of Ophthalmology in [place], [place] [address] [place] [phone] Kenya Garza M.D. [address] [place] [phone] documented as of this encounter Procedures Procedure Name Priority Date/Time Associated Diagnosis Comments B SCAN - OD - RIGHT EYE Routine 11/11/2023 11:24 AM RECREATION PROGRAMMER Panuveitis Right documented in this encounter Results * B-Scan Ultrasound - OD - Right Eye (11/11/2023 11:24 AM RECREATION PROGRAMMER) Narrative OPHTHALMOLGY NON-IMAGING ORDERS - 11/11/2023 2:56 PM RECREATION PROGRAMMER 11/11/2023 B scan right eye: Moderate-dense vitreous opacities. ??Vitreous membranes. ?Possible posterior thickening. ?? No T sign. ?? [facility] Kenya Garza M.D. OPHTH ULTRASOUND OPHTHALMOLGY NON-IMAGING ORDERS documented in this encounter Visit Diagnoses Diagnosis Panuveitis Right documented in this encounter Care Teams Tooth Clerk Relationship Specialty Start Date End Date Elsewhere, Pcp PCP - General Internal Medicine 05/29/19 documented as of this encounter
--- OUTSIDE RECORDS SUMMARY | 2023-11-19 07:36 | XMS_ITS | Encounter Summary ---
Author Name Unknown Organization [facility] Address [address] [place] [address] Care Team Providers Care Technical Assoc Name Role Phone Elsewhere, Pcp Primary Care Provider Unavailabl e Encounter Details Date Type Department Care Team (Latest Contact Info) Description 11/05/2023 Clinical Communication Department of Ophthalmology in [place], [place] [address] [place] [address] Kenya Garza M.D. [address] [place] [phone] Social History Tobacco Use Types Packs/Day Years Used Date Smoking Tobacco: Light Smoker Cigarettes 0.5 39 Started: 02/26/1980 Smokeless Tobacco: Never Comments:On again off again Alcohol Use Standard Drinks/Week Comments Yes 0 (1 standard drink = 0.6 oz pur e alcohol) [facility] Utilities Answer Date Recorded In the past 12 months has [employer], gas, oil, or water company threatened to [...] Never 06/27/2020 How often do you attend roman catholic or mu-ism serv ices? Never 06/27/2020 Do you belong to any clubs o r organizations such as roman catholic groups, unions, fraternal or athletic groups, or [...] medical care, and heating? Somewhat hard 06/27/2020 [facility] [place] of Occupat ional Health - Occupational Stress [...] your living situation today? I have a [facility] place to live 11/05/2023 Education Answer Date [...] st Contact Info) Description 11/25/2023 8:30 AM HOUSE MOVER HELPER Ancillary Procedure Department of Ophthalmology in [place], [place] [address] [place] [phone] Kenya Garza M.D. [address] [place] [phone] 11/25/2023 9:00 AM HOUSE MOVER HELPER Ancillary Procedure Department of Ophthalmology in [place], [place] [address] [place] [phone] Kenya Garza M.D. [address] [place] [phone] 11/25/2023 11:15 AM HOUSE MOVER HELPER Ancillary Procedure Department of Ophthalmology in [place], [place] [address] [place] [phone] Kenya Garza M.D. [address] [place] [phone] 11/25/2023 11:45 AM HOUSE MOVER HELPER Office Visit Department of Ophthalmology in [place], [place] [address] [place] [phone] Kenya Garza M.D. [address] [place] [phone] documented as of this encounter Visit Diagnoses Not on filedocumented in this encounter Care Teams Technical Assoc Relationship Specialty Start Date End Date Elsewhere, Pcp PCP - General Internal Medicine 05/29/19 documented as of this encounter
--- OUTSIDE RECORDS SUMMARY | 2023-11-19 07:36 | XMS_ITS | Encounter Summary ---
Author Name Unknown Organization [facility] Address [address] [place] [address] Care Team Providers Care Director Global Medical Affairs Name Role Phone Elsewhere, Pcp Primary Care Provider Unavailabl e Encounter Details Date Type Department Care Team (Late st Contact Info) Description 11/05/2023 Episode Changes Department of Ophthalmology in [place], [place] [address] [place] [address] Gladys Ponce Social History Tobacco Use Types Packs/Day Years Used Date Smoking Tobacco: Light Smoker Cigarettes 0.5 39 Started: 02/26/1980 Smokeless Tobacco: Never Comments:On again off again Alcohol Use Standard Drinks/Week Comments Yes 0 (1 standard drink = 0.6 oz pur e alcohol) [facility] Utilities Answer Date Recorded In the [...] Never 06/27/2020 How often do you attend judaism or buddhism serv ices? Never 06/27/2020 Do you belong to any clubs o r organizations such as judaism groups, unions, fraternal or athletic groups, or [...] medical care, and heating? Somewhat hard 06/27/2020 [facility] [place] of Occupat ional Health - Occupational Stress [...] st Contact Info) Description 11/25/2023 8:30 AM AUTOMATION MACHINE BUILDER Ancillary Procedure Department of Ophthalmology in [address] [phone] Kenya Garza M.D. [address] [place] [phone] 11/25/2023 9:00 AM AUTOMATION MACHINE BUILDER Ancillary Procedure Department of Ophthalmology in [place], [place] [address] [place] [phone] Kenya Garza M.D. [address] [place] [phone] 11/25/2023 11:15 AM AUTOMATION MACHINE BUILDER Ancillary Procedure Department of Ophthalmology in [address] [phone] Kenya Garza M.D. [address] [place] [phone] 11/25/2023 11:45 AM AUTOMATION MACHINE BUILDER Office Visit Department of Ophthalmology in [address] [phone] Kenya Garza M.D. [address] [place] [phone] documented as of this encounter Visit Diagnoses Not on filedocumented in this encounter Care Teams Director Global Medical Affairs Relationship Specialty Start Date End Date Elsewhere, Pcp PCP - General Internal Medicine 05/29/19 documented as of this encounter
--- OUTSIDE RECORDS SUMMARY | 2023-11-19 07:36 | XMS_ITS | Encounter Summary ---
Author Name Unknown Organization [facility] Address [address] [place] [address] Care Team Providers Care Cemetery Keeper Name Role Phone Elsewhere, Pcp Primary Care Provider Unavailabl e Encounter Details Date Type Department Care Team (Latest Contact Info) Description 11/05/2023 3:53 PM LABORER PRESTRESSED CONCRETE - 11/05/2023 11:59 PM LABORER PRESTRESSED CONCRETE Hospital Encounter Department of Laboratory Medicine and Pathology, [facility], in [place], [place] [address] [place] [address] Kenya Garza M.D. [address] [place] [address] Uveitis Discharge Disposition: Home or Self Care Social History Tobacco Use Types Packs/Day Years Used Date Smoking Tobacco: Light Smoker Cigarettes 0.5 39 Started: 02/26/1980 Smokeless Tobacco: Never Comments:On again off again Alcohol Use Standard Drinks/Week Comments Yes 0 (1 standard drink = 0.6 oz pur e alcohol) [facility] Utilities Answer Date Recorded In the past 12 months has [employer], gas, oil, or water [employer] threatened to shut off services in your home? No 11/05/2023 Social Connection and Isolation Panel [NHANES] A nswer Date Recorded In a typical week, how many times do you talk on the phone with family, friends, or neighbors? Once a week 06/27/2020 How often do you get together with friends or re latives? Never 06/27/2020 How often do you attend lutheran or catholic serv ices? Never 06/27/2020 Do you belong to any clubs o r organizations such as lutheran groups, unions, fraternal or athletic groups, or [...] medical care, and heating? Somewhat hard 06/27/2020 [facility] of Occupat ional [facility] - Occupational Stress Questionnaire Answer [...] your living situation today? I have a [facility] place to live 11/05/2023 Education Answer [...] PM CDT documented as of this encounter Medications at Time of Discharge Medication Sig Dispensed Refills Start Date End Date albuterol inhaler 0 06/22/2020 aspirin (ADULT LOW DOSE ASPIRIN) [address] tablet Take 81 mg by mouth daily. 0 atorvastatin (LIPITOR) 40 mg tablet Take 40 mg by mouth daily. 0 09/26/2016 cetirizine-pseudoephed rine (ZyrTEC-D) 5-120 mg per 12 hr tablet daily. 0 01/26/2019 fluticasone propionate (FLONASE) 50 mcg/actuation nasal spray Administer 2 sprays into each nostril daily. 0 12/26/2018 ipratropium-albuteroL (DUONEB) 0.5-2.5 mg/3 mL nebulizer solution INHALE ONE VIAL VIA NEBULIZER EVERY 4 HOURS FOR 3 DAYS AND THEN CAN DECREASE TO NEEDED. 0 06/09/2020 lisinopril (PRINIVIL,ZESTRIL) 40 mg tablet Take 20 mg by mouth daily. 0 09/29/2017 prednisoLONE acetate (PRED FORTE) 1 % ophthalmic suspension Administer 1 drop into the right eye every hour while awake. 0 11/04/2023 predniSONE (DELTASONE) 20 mg tabletIndications:Data Assistant gita Obstructive Pulmonary Disease (HCC) Take 2 tablets (40 mg total) by mouth daily. 10 tablet 0 06/29/2020 umeclidinium-vilantero L (ANORO ELLIPTA) 62.5-25 mcg/actuation inhalerIndications:Chr onic Obstructive Pulmonary Disease (HCC) Inhale 1 puff once daily. 1 each 11 07/06/2020 valACYclovir (VALTREX) 1000 mg tablet Take 1 tablet (1,000 mg total) by mouth 3 (three) times a day. 42 tablet 1 11/05/2023 cyclopentolate (CYCLOGYL) 1 % ophthalmic solution INSTILL 1 DROP IN THE RIGHT EYE 4 TIMES A DAY 0 10/23/2023 11/11/2023 documented as of this encounter Plan of Treatment Upcoming Encounters Date Type Department Care Team (Late st Contact Info) Description 11/25/2023 8:30 AM LABORER PRESTRESSED CONCRETE Ancillary Procedure Department of Ophthalmology in [place], [place] [address] [place] [phone] Kenya Garza M.D. [address] [place] [phone] 11/25/2023 9:00 AM LABORER PRESTRESSED CONCRETE Ancillary Procedure Department of Ophthalmology in [place], [place] [address] [place] [phone] Kenya Garza M.D. [address] [place] [phone] 11/25/2023 11:15 AM LABORER PRESTRESSED CONCRETE Ancillary Procedure Department of Ophthalmology in [place], [place] [address] [place] [phone] Kenya Garza M.D. [address] [place] [phone] 11/25/2023 11:45 AM LABORER PRESTRESSED CONCRETE Office Visit Department of Ophthalmology in [address] [phone] Kenya Garza M.D. [address] [place] [phone] documented as of this encounter Procedures Procedure Name Priority Date/Time Associated Diagnosis Comments HEMATOPATHOLOGY REVIEW Routine 4:03 PM LABORER PRESTRESSED CONCRETE SPSMA RESULT Routine 11/05/2023 4:03 PM LABORER PRESTRESSED CONCRETE CBC WITH DIFFERENTIAL, B Routine 11/05/2023 4:03 PM LABORER PRESTRESSED CONCRETE Uveitis COMPREHENSIVE METABOLIC PANEL, S/P Routine 11/05/2023 4:03 PM LABORER PRESTRESSED CONCRETE Uveitis documented in this encounter Results * (ABNORMAL) SPSMA Result (11/05/2023 4:03 PM LABORER PRESTRESSED CONCRETE) Neutrophilic Segs and Bands 32(L) 50 - 75 % 11/06/2023 1:02 PM LABORER PRESTRESSED CONCRETE DHPM Lymphocytes 63(H) 18 - 42 % 11/06/2023 1:02 PM LABORER PRESTRESSED CONCRETE [facility] Monocytes 2 2 - 11 % 11/06/2023 1:02 PM LABORER PRESTRESSED CONCRETE [facility] Eosinophils 1 1 - 3 % 11/06/2023 1:02 PM LABORER PRESTRESSED CONCRETE [facility] Basophils 2 0 - 2 % 11/06/2023 1:02 PM LABORER PRESTRESSED CONCRETE [facility] Fragile Cells Slight 11/06/2023 1:02 PM LABORER PRESTRESSED CONCRETE [facility] Manual Absolute Neutrophil Count 7.17(H) 1.56 - 6.45 x10(9)/L 11/06/2023 1:02 PM LABORER PRESTRESSED CONCRETE [facility] Comment: ----ADDITIONAL INFORMATION---- The manual absolute neutrophil count is derived from a manual differential count and therefore is not exactly comparable to the automated absolute neutrophil count. Blood 11/05/2023 4:03 PM LABORER PRESTRESSED CONCRETE 11/05/2023 4:24 PM LABORER PRESTRESSED CONCRETE Kenya Garza M.D. LAB BLOOD ADD-ON [facility] [address] [place] [address], [facility] [address] [place] [address] * Hematopathology Review (11/05/2023 4:03 PM LABORER PRESTRESSED CONCRETE) Pathologist [facility] Report electronically signed by Prakash Holguin M.D. I verify that I have examined all relevant slides/materi als for the specimen(s) and rendered or confirmed the diagnosis. 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 11/06/2023 12:30 PM LABORER PRESTRESSED CONCRETE [facility] Blood 11/05/2023 4:03 PM LABORER PRESTRESSED CONCRETE 11/05/2023 4:24 PM LABORER PRESTRESSED CONCRETE Kenya Garza M.D. LAB PATHOLOGY/CYTOLO GY ORDERABLES [facility] [address] [place] [address], [facility] [address] [place] [address] * (ABNORMAL) Comprehensive Metabolic Panel (11/05/2023 4:03 PM LABORER PRESTRESSED CONCRETE) Potassium, S 4.4 3.6 - 5.2 mmol/L 11/05/2023 5:04 PM LABORER PRESTRESSED CONCRETE DTL Sodium, S 139 135 - 145 mmol/L 11/05/2023 5:04 PM LABORER PRESTRESSED CONCRETE DTL Chloride, S 101 98 - 107 mmol/L 11/05/2023 5:04 PM LABORER PRESTRESSED CONCRETE DTL Bicarbonate, S 27 22 - 29 mmol/L 11/05/2023 5:04 PM LABORER PRESTRESSED CONCRETE DTL Anion Gap 11 7 - 15 11/05/2023 5:04 PM LABORER PRESTRESSED CONCRETE DTL BUN (Blood Urea Nitrogen), S 17 6 - 21 mg/dL 11/05/2023 5:04 PM LABORER PRESTRESSED CONCRETE DTL Creatinine 0.76 0.59 - 1.04 mg/dL 11/05/2023 5:04 PM LABORER PRESTRESSED CONCRETE DTL Estimated GFR (eGFR) 86 >=60 mL/min/BS A 11/05/2023 5:04 PM LABORER PRESTRESSED CONCRETE DTL Comment: Estimated GFR calculated using the 2020 CKD_EPI creatinine equation. Calcium, Total, S 10.1 8.8 - 10.2 mg/dL 11/05/2023 5:20 PM LABORER PRESTRESSED CONCRETE DTL Glucose, S 104 70 - 140 mg/dL 11/05/2023 5:04 PM LABORER PRESTRESSED CONCRETE DTL Protein, Total, S 6.1(L) 6.3 - 7.9 g/dL 11/05/2023 5:04 PM LABORER PRESTRESSED CONCRETE DTL Albumin, S 4.3 3.5 - 5.0 g/dL 11/05/2023 5:04 PM LABORER PRESTRESSED CONCRETE DTL Aspartate Aminotransferase (AST), S 16 8 - 43 U/L 11/05/2023 5:04 PM LABORER PRESTRESSED CONCRETE DTL Alkaline Phosphatase, S 81 35 - 104 U/L 11/05/2023 5:04 PM LABORER PRESTRESSED CONCRETE DTL Alanine Aminotransferase (ALT), S 16 7 - 45 U/L 11/05/2023 5:04 PM LABORER PRESTRESSED CONCRETE DTL Bilirubin, Total, S 1.2 0.0 - 1.2 mg/dL 11/05/2023 5:04 PM LABORER PRESTRESSED CONCRETE DTL Blood (Blood, Venous) 11/05/2023 4:03 PM LABORER PRESTRESSED CONCRETE 11/05/2023 4:41 PM LABORER PRESTRESSED CONCRETE Kenya Garza M.D. LAB BLOOD ADD-ON [facility] [address] [place] [address], [facility] 200 [place] [address] * (ABNORMAL) CBC with Differential, Blood (11/05/2023 4:03 PM LABORER PRESTRESSED CONCRETE) Hemoglobin 12.2 11.6 - 15.0 g/dL 11/05/2023 4:32 PM LABORER PRESTRESSED CONCRETE DTL Hematocrit 38.7 35.5 - 44.9 % 11/05/2023 4:32 PM LABORER PRESTRESSED CONCRETE DTL Erythrocytes 4.09 3.92 - 5.13 x10(12)/L 11/05/2023 4:32 PM LABORER PRESTRESSED CONCRETE DTL MCV 94.6 78.2 - 97.9 fL 11/05/2023 4:32 PM LABORER PRESTRESSED CONCRETE DTL RBC Distrib Width 15.8 12.2 - 16.1 % 11/05/2023 4:32 PM LABORER PRESTRESSED CONCRETE DTL Platelet Count 235 157 - 371 x10(9)/L 11/05/2023 4:32 PM LABORER PRESTRESSED CONCRETE DTL Leukocytes 22.4(H) 3.4 - 9.6 x10(9)/L 11/05/2023 6:22 PM LABORER PRESTRESSED CONCRETE DTL Comment:Results confirmed by smear. Neutrophils See Comment 1.56 - 6.45 x10(9)/L 11/05/2023 6:22 PM LABORER PRESTRESSED CONCRETE [facility] Comment:Auto-diff results no t valid. See manual differential. Blood (Blood, Venous) 11/05/2023 4:03 PM LABORER PRESTRESSED CONCRETE 11/05/2023 4:24 PM LABORER PRESTRESSED CONCRETE Kenya Garza M.D. LAB BLOOD ADD-ON [facility] [address] [place] [address], [facility] DTL [facility] [address] [place] [address] [facility] [address] [place] [address] documented in this encounter Visit Diagnoses Diagnosis Uveitis documented in this encounter Care Teams Cemetery Keeper Relationship Specialty Start Date End Date Elsewhere, Pcp PCP - General Internal Medicine 05/29/19 documented as of this encounter
--- OUTSIDE RECORDS SUMMARY | 2023-11-19 07:36 | XMS_ITS | Encounter Summary ---
Author Name Unknown Organization [facility] Address [address] [place] [address] Care Team Providers Care Blow Pit Operator Name Role Phone Elsewhere, Pcp Primary Care Provider Unavailabl e Encounter Details Date Type Department Care Team (Late st Contact Info) Description 11/06/2023 Orders Only Department of Ophthalmology in [place], [place] [address] [place] [address] Kenya Garza M.D. [address] [place] [address] Social History Tobacco Use Types Packs/Day Years Used Date Smoking Tobacco: Light Smoker Cigarettes 0.5 39 Started: 02/26/1980 Smokeless Tobacco: Never Comments:On again off again Alcohol Use Standard Drinks/Week Comments Yes 0 (1 standard drink = 0.6 oz pur e alcohol) [facility] Utilities Answer Date Recorded In the past 12 months has [employer] electric, gas, oil, or water company threatened [...] Never 06/27/2020 How often do you attend gnosticism or druze serv ices? Never 06/27/2020 Do you belong to any clubs o r organizations such as gnosticism groups, unions, fraternal or athletic groups, or [...] medical care, and heating? Somewhat hard 06/27/2020 [facility] [place] of Occupat ional Health - Occupational Stress [...] your living situation today? I have a [facility] place to live 11/05/2023 Education Answer Date [...] st Contact Info) Description 11/25/2023 8:30 AM AGENCY LEGAL COUNSEL Ancillary Procedure Department of Ophthalmology in [place], [place] [address] [place] [phone] Kenya Garza M.D. [address] [place] [phone] 11/25/2023 9:00 AM AGENCY LEGAL COUNSEL Ancillary Procedure Department of Ophthalmology in [place], [place] [address] [place] [phone] Kenya Garza M.D. [address] [place] [phone] 11/25/2023 11:15 AM AGENCY LEGAL COUNSEL Ancillary Procedure Department of Ophthalmology in [place], [place] [address] [place] [phone] Kenya Garza M.D. [address] [place] [phone] 11/25/2023 11:45 AM AGENCY LEGAL COUNSEL Office Visit Department of Ophthalmology in [place], [place] [address] [place] [phone] Kenya Garza M.D. [address] [place] [phone] documented as of this encounter Visit Diagnoses Not on filedocumented in this encounter Care Teams Blow Pit Operator Relationship Specialty Start Date End Date Elsewhere, Pcp PCP - General Internal Medicine 05/29/19 documented as of this encounter
--- OUTSIDE RECORDS SUMMARY | 2023-11-19 07:36 | XMS_ITS | Encounter Summary ---
Author Name Unknown Organization [facility] Address [address] [place] [address] Care Team Providers Care Waterworks Employee Name Role Phone Elsewhere, Pcp Primary Care Provider Unavailabl e Encounter Details Date Type Department Care Team (Latest Contact Info) Description 11/05/2023 Clinical Communication Department of Ophthalmology in [place], [place] [address] [place] [address] Kenya Garza M.D. [address] [place] [address] Social History Tobacco Use Types Packs/Day Years Used Date Smoking Tobacco: Light Smoker Cigarettes 0.5 39 Started: 02/26/1980 Smokeless Tobacco: Never Comments:On again off again Alcohol Use Standard Drinks/Week Comments Yes 0 (1 standard drink = 0.6 oz pur e alcohol) [facility] Utilities Answer Date Recorded In the past 12 months has [employer], gas, oil, or water company threatened to [...] Never 06/27/2020 How often do you attend temple or sikh serv ices? Never 06/27/2020 Do you belong to any clubs o r organizations such as temple groups, unions, fraternal or athletic groups, or [...] medical care, and heating? Somewhat hard 06/27/2020 [facility] [place] of Occupat ional Health - Occupational Stress [...] your living situation today? [facility] 11/05/2023 Education Answer Date [...] st Contact Info) Description 11/25/2023 8:30 AM EIGHT ARM OPERATOR Ancillary Procedure Department of Ophthalmology in [place], [place] [address] [place] [phone] Kenya Garza M.D. [address] [place] [phone] 11/25/2023 9:00 AM EIGHT ARM OPERATOR Ancillary Procedure Department of Ophthalmology in [place], [place] [address] [place] [phone] Kenya Garza M.D. [address] [place] [phone] 11/25/2023 11:15 AM EIGHT ARM OPERATOR Ancillary Procedure Department of Ophthalmology in [place], [place] [address] [place] [phone] Kenya Garza M.D. [address] [place] [phone] 11/25/2023 11:45 AM EIGHT ARM OPERATOR Office Visit Department of Ophthalmology in [place], [place] [address] [place] [phone] Kenya Garza M.D. [address] [place] [phone] documented as of this encounter Visit Diagnoses Not on filedocumented in this encounter Care Teams Waterworks Employee Relationship Specialty Start Date End Date Elsewhere, Pcp PCP - General Internal Medicine 05/29/19 documented as of this encounter
--- OUTSIDE RECORDS SUMMARY | 2023-11-19 07:36 | XMS_ITS | Encounter Summary ---
Author Name Unknown Organization [facility] Address [address] [place] [address] Care Team Providers Care Job Interviewer Name Role Phone Elsewhere, Pcp Primary Care Provider Unavailabl e Encounter Details Date Type Department Care Team (Late st Contact Info) Description 11/05/2023 10:50 AM SOFTWARE DEVELOPMENT ANALYST Ancillary Procedure Department of Ophthalmology in [place], [place] [address] [place] [address] Kenya Garza M.D. [address] [place] [address] Uveitis Social History Tobacco Use Types Packs/Day Years Used Date Smoking Tobacco: Light Smoker Cigarettes 0.5 39 Started: 02/26/1980 Smokeless Tobacco: Never Comments:On again off again Alcohol Use Standard Drinks/Week Comments Yes 0 (1 standard drink = 0.6 oz pur e alcohol) [facility] Utilities Answer Date Recorded In the past 12 months has [employer], gas, oil, or water [employer] threatened to shut off services in your home? No 11/05/2023 Social Connection and Isolation Panel [NHANES] A nswer Date Recorded In a typical week, how many times do you talk on the phone with family, friends, or neighbors? Once a week 06/27/2020 How often do you get together with friends or re latives? Never 06/27/2020 How often do you attend evangelical or yazdanism serv ices? Never 06/27/2020 Do you belong [...] medical care, and heating? Somewhat hard 06/27/2020 [facility] [place] of Occupat ional Health - Occupational Stress [...] st Contact Info) Description 11/25/2023 8:30 AM SOFTWARE DEVELOPMENT ANALYST Ancillary Procedure Department of Ophthalmology in [place], [place] [address] [place] [phone] Kenya Garza M.D. [address] [place] [phone] 11/25/2023 9:00 AM SOFTWARE DEVELOPMENT ANALYST Ancillary Procedure Department of Ophthalmology in [place], [place] [address] [place] [phone] Kenya Garza M.D. [address] [place] [phone] 11/25/2023 11:15 AM SOFTWARE DEVELOPMENT ANALYST Ancillary Procedure Department of Ophthalmology in [place], [place] [address] [place] [phone] Kenya Garza M.D. [address] [place] [phone] 11/25/2023 11:45 AM SOFTWARE DEVELOPMENT ANALYST Office Visit Department of Ophthalmology in [place], [place] [address] [place] [phone] Kenya Garza M.D. [address] [place] [phone] documented as of this encounter Procedures Procedure Name Priority Date/Time Associated Diagnosis Comments OPTICAL COHERENCE TOMOGRAPHY - MACULA/RETINA - OU - BOTH EYES Routine 11/05/2023 4:39 PM SOFTWARE DEVELOPMENT ANALYST Uveitis B SCAN - OD - RIGHT EYE Routine 11/05/2023 1:08 PM SOFTWARE DEVELOPMENT ANALYST Uveitis documented in this encounter Results * Optical Coherence Tomography - Macula/Retina - OU - Both Eyes (11/05/2023 4:39 PM SOFTWARE DEVELOPMENT ANALYST) CMT L Microns 256 um OPH THALMOLOGY IMAGING EXAM Narrative OPHTHALMOLOGY IMAGING EXAM - 11/05/2023 6:25 PM SOFTWARE DEVELOPMENT ANALYST Right Eye Reliability was good. OCT device [...] not thickened. Kenya Garza M.D. OPHTH TOMOGRAPHY Performing Organization Address [facility] Co de Phone Number OPHTHALMOLOGY IMAGING EXAM * B-Scan Ultrasound - OD - Right Eye (11/05/2023 1:08 PM SOFTWARE DEVELOPMENT ANALYST) Narrative OPHTHALMOLGY NON-IMAGING ORDERS - 11/05/2023 6:21 PM SOFTWARE DEVELOPMENT ANALYST 11/05/2023 B scan right eye: ??Moderate opacities posteriorly. ??Possible vitreous vs shallow retinal detachment. ?? No T sign noted. ?? [facility] Kenya Garza M.D. OPHTH ULTRASOUND Performing Organization Address [facility] Co de Phone Number OPHTHALMOLGY NON-IMAGING ORDERS documented in this encounter Visit Diagnoses Diagnosis Uveitis documented in this encounter Care Teams Job Interviewer Relationship Specialty Start Date End Date Elsewhere, Pcp PCP - General Internal Medicine 05/29/19 documented as of this encounter
--- OUTSIDE RECORDS SUMMARY | 2023-11-19 07:37 | XMS_ITS | Encounter Summary ---
Author Name Unknown Organization [facility] Address [address] [place] [address] Care Team Providers Care Home Advisor Name Role Phone Elsewhere, Pcp Primary Care Provider Unavailabl e Reason for Referral * Outpatient (Routine) - Closed Specialty Diagnoses / Procedures Referred By Contac t Referred To Contact Cardiovascular Disease Diagnoses Coronary Artery Disease (Unspecified) Katerine Bashir M.D. [address] [place] [address] [facility] Referral ID Status Reason Start Date Expiration Date Visits Re quested Visits Authorized [id number] Closed 02/12/2019 02/12/2020 1 1 Encounter Details Date Type Department Care Team (Late st Contact Info) Description 02/12/2019 [facility] [address] [place] [address] Katerine Bashir M.D. [address] [place] [address] Coronary Artery Disease (Unspecified) (Primary Dx) Social History Tobacco Use Types Packs/Day Years Used Date Smoking Tobacco: Never Assessed Sex and Gender Information Value Date Recorded Sex Assigned at Female 07/06/2020 10:15 AM CDT Gender Identity Female 02/11/2019 3:24 PM CDT Sexual Orientation Straight 02/11/2019 3: 24 PM CDT documented as of this encounter Plan of Treatment Upcoming Encounters Date Type Department Care Team (Late st Contact Info) Description 11/25/2023 8:30 AM HEAD ESTHETICIAN Ancillary Procedure Department of Ophthalmology in [place], [place] [address] [place] [phone] Kenya Garza M.D. [address] [place] [phone] 11/25/2023 9:00 AM HEAD ESTHETICIAN Ancillary Procedure Department of Ophthalmology in [place], [place] [address] [place] [phone] Kenya Garza M.D. [address] [place] [phone] 11/25/2023 11:15 AM HEAD ESTHETICIAN Ancillary Procedure Department of Ophthalmology in [place], [place] [address] [place] [phone] Kenya Garza M.D. [address] [place] [phone] 11/25/2023 11:45 AM HEAD ESTHETICIAN Office Visit Department of Ophthalmology in [place], [place] [address] [place] [phone] Kenya Garza M.D. [address] [place] [phone] Scheduled Referrals Name Type Priority Associated Diagnoses Order Schedule Cardiovascular Diseases Referral Outpatient Referral Routine Coronary Artery Disease (Unspecified) Expected: 02/12/2019 (Approximate), Expires: 02/12/2022 documented as of this encounter Visit Diagnoses Diagnosis Coronary Artery Disease (Unspecified)- Primary documented in this encounter Additional Health Concerns Infection Onset Date Last Indicated Resolved Time COVID19 Pending 06/23/2020 06/23/2020 06/23/2020 1 0:32 PM CDT COVID19 Pending 06/29/2020 06/29/2020 06/30/2020 2 :23 AM CDT documented as of this encounter Care Teams Home Advisor Relationship Specialty Start Date End Date Elsewhere, Pcp PCP - General Internal Medicine 05/29/19 documented as of this encounter
--- OUTSIDE RECORDS SUMMARY | 2023-11-19 07:37 | XMS_ITS | Clinical Summary ---
Author Name Unknown Organization [facility] Address [place], [place] [address] Care Team Providers Care Manager Contracting Name Role Phone Easton Mccormick MD Unavailable [phone] Katerine Bashir MD Primary Care Provider + Allergies Active Allergy Reactions Criticality Noted Date Comments Wheeler Yefri Itching 09/11/2023 Medications Medication Sig Dispensed Refills Start Date End Date Status aspirin (ECOTRIN) 81 mg enteric coated tabletIndications:N on-ST elevation IN (NSTEMI) (HC) Take 1 tablet by mouth once daily with a meal. 0 11/30/2015 Active atorvastatin (LIPITOR) 40 mg tabletIndications:C oronary artery disease, angina presence unspecified, unspecified vessel or lesion type, unspecified whether [place] or transplanted heart Take 1 tablet by mouth at bedtime. 90 tablet 3 09/26/2016 Active blood sugar diagnostic (ACCU-CHEK DAVID) stripIndications:Ty pe 2 diabetes mellitus without complication, without long-term current use of insulin (HC) 1 box 3 09/26/2016 Active lancetsIndications: Type 2 diabetes mellitus without complication, without long-term current use of insulin (HC) Dispense item covered by pt ins. E11.9 NIDDM type II - Test 1 time/day 100 Each 3 09/26/2016 Active metoprolol succinate (TOPROL XL) 100 mg Sustained-Release tabletIndications:A rteriosclerotic heart disease Take 1 Tablet (100 mg) by mouth once daily. 0 05/24/2023 Active lisinopriL (PRINIVIL; ZESTRIL) 40 mg tablet Take 20 mg by mouth once daily. 0 Active albuterol (PROVENTIL) 0.083 % neb solution Inhale 2.5 mg via a nebulizer every 4 hours if needed. 0 Active cholecalciferol (VITAMIN D3) 1,000 unit tablet Take 1,000 units by mouth once daily. 0 Active ascorbic acid, vitamin C, (VITAMIN C) 500 mg tablet Take 500 mg by mouth once daily. 0 Active fexofenadine (DINAH) 180 mg tablet Take 180 mg by mouth once daily if needed for Allergy Symptoms. Do not crush or chew. 0 Active magnesium oxide (MAG-OX 400) 400 mg tablet Take 400 mg by mouth once daily. 0 Active predniSONE (DELTASONE) 10 mg tabletIndications:I nterstitial pneumonia of both lungs (HC) Take 4 Tablets (40 mg) by mouth once daily with a meal for 7 days, THEN 2 Tablets (20 mg) once daily with a meal for 7 days, THEN 1 Tablet (10 mg) once daily with a meal for 7 days, THEN one-half Tablet (5 mg) once daily with a meal for 14 days. 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 Morbid obesity 04/10/2010 Diabetes mellitus, type 2 HTN (hypertension) CAD (coronary artery disease) Hyperlipidemia LDL goal <70 Encounters Date Type Department Care Team Description 10/18/2023 8:30 AM WINDOWS SUPPORT ENGINEER Office Visit [facility] [address] [place] [address] Guzman Grayson MD 09/30/2023 Orders Only [facility] [address] [place] [address] Susanne Salinas 1 scan: (1-Ord) Holter Report ([id number]) 09/25/2023 2:09 PM WINDOWS SUPPORT ENGINEER - 09/25/2023 11:59 PM WINDOWS SUPPORT ENGINEER Hospital Encounter [facility] [address] [place] [address] Katerine Bashir MD 09/12/2023 1:25 PM WINDOWS SUPPORT ENGINEER - 09/12/2023 2:08 PM WINDOWS SUPPORT ENGINEER Surgery [address] [address] Mihaela Keller MBBS BRONCHOSCOPY W BAL 09/11/2023 6:22 PM WINDOWS SUPPORT ENGINEER - 09/15/2023 1:11 PM WINDOWS SUPPORT ENGINEER Hospital Encounter [address] [address] s, U Hospitalist Easton Sam MD Pham, MD Sarkis Capps Puskar, MBBS Acute hypoxic respiratory failure (HC) (Primary Dx); Pneumonitis; 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 Discharge Disposition: Home Self Care 09/11/2023 Travel 09/10/2023 2:00 PM WINDOWS SUPPORT ENGINEER Orders Only [facility] [address] [place] [address] 2 scans: (2-Ord) ECHO TTE COMPLETE WO CONTRAST ([id number]) 09/02/2023 Lab Requisition [facility] [phone] Mariah Saxena MD 08/30/2023 Lab Requisition [facility] [phone] Unknown, Doctor from Last 3 Months Immunizations Name Administration Dates Next Due HepA-HepB (Twinrix) 08/26/2015,06/15/2014 Hepatitis B (Adult) 08/03/2014 Influenza, IIV3 (Age >=3 years) 09/24/2011 Influenza, IIV4 09/26/2016,08/26/2015,08/03/2014 Tdap 03/08/2009 Family History Medical History Relation Name Comments Good Health Brother 1 Hypertension Brother 2 Stroke Father Diabetes Mother Heart Disease Mother CAD s/p PCI in 70s Relation Name Status Comments Brother 1 Brother 2 Father (Age 70) CVA Maternal Grandfather (Age 45) CA D Maternal Grandmother (Age 96) Mother Paternal Grandfather (Age 70s) l iver disease Paternal Grandmother unknown Social History Tobacco Use Types Packs/Day Years Used Date Smoking Tobacco: Former Cigarettes 0.5 30.1 0 10/28/1985 - 11/19/2015 Smokeless Tobacco: Never Tobacco Cessation:Counseling Given: Yes Comments:TIP done 11/21/15 Alcohol Use Standard Drinks/Week Comments Yes 0 (1 standard drink = 0.6 oz pur e alcohol) 1-2 drinks/month Social Connections Answer Date Recorded Frequency of Communication with Friends and Fami ly 0 09/11/2023 Financial Resource Strain Answer Date R ecorded Difficulty of Paying Living Expenses 3 09/11/2023 Difficulty of Paying Living Expenses Not on file 09/11/2023 Food Insecurity Answer Date Recorded Worried About Running Out of Food in the Last Ye ar 1 09/11/2023 Transportation Needs Answer Date Record ed Lack of Transportation (Medical) 1 09/11/2023 Housing Stability Answer Date Recorded Unable to Pay for Housing in the Last Year 1 09/11/2023 Sex and Gender Information Value Date Recorded Sex Assigned at Not on file Gender Identity Not on file Sexual Orientation Not on file Obstetrics History Para Term AB IAB SAB Ectopic Multiple Livin g Live Births 0 0 0 0 0 0 0 0 0 0 Last Filed Vital Signs Vital Sign Reading Time Taken Comments Blood Pressure 153/70 09/15/2023 8:52 AM WINDOWS SUPPORT ENGINEER Pulse 81 09/15/2023 8:52 AM WINDOWS SUPPORT ENGINEER Temperature 36.5 ??C (97.7 ??F) 09/15/2023 8:52 AM CS T Respiratory Rate 16 09/15/2023 8:52 AM WINDOWS SUPPORT ENGINEER Oxygen Saturation 90% 09/15/2023 8:52 AM WINDOWS SUPPORT ENGINEER Inhaled Oxygen Concentration - - Weight 87.1 kg (192 lb) 05/24/2023 8:49 AM CDT Height 168.2 cm (5' 6.22) 09/26/2016 9:54 AM CS T Body Mass Index 30.78 09/26/2016 9:54 AM WINDOWS SUPPORT ENGINEER Plan of Treatment Health Maintenance Due Date Last Done Comments Pneumococcal series for age 65+ (1 of 2 - PCV) 1963 Hepatitis C screening for ag e 18-79 1975 Zoster (shingles) series for age 50+ (1 of 2) 1976 BMI (ht and wt on same day) for age 18+ 09/26/2017 09/26/2016, 01/31/2016, 01/11/2016, Additional history exists Depression screening for age 12+ 09/26/2017 09/26/20 16, 11/30/2015 Mammogram for age 45-75 10/04/2017 10/04/20 16, 08/18/2015, 04/21/2014, Additional history exists Tetanus booster 03/08/2019 03/08/2009, 03/08/2009 Colonoscopy through age 75 04/27/202004/27 (Completed outside of [facility]) Lipids for age 45-75 09/11/2021 09/11/2016, 05/24/2015, 08/03/2014, Additional history exists DEXA/DXA scan for age 65+ 2022 08/18/2015 Medicare Wellness for age 65+ 2022 COVID-19 vaccine series ( season) 2023 07/18/2021, 02/14/2021, 01/24/2021 Influenza for age 65+ 06/28/2023 09/26/2016 , 08/26/2015, 08/03/2014, Additional history exists Tdap Completed 03/08/2009 Goals Goal Patient Goal Type Associated Problems Recent Progress Patient-Stated? Author BLOOD PRESSURE-MA INTAINS BP LESS THAN 130/80 Blood Pressure No Bailey Turpin NP Procedures Procedure Name Priority Date/Time Associated Diagnosis Comments HOLTER MONITOR 48 HOURS Routine 09/30/2023 12:00 AM WINDOWS SUPPORT ENGINEER PVC (premature ventricular contraction) SCAN CORRESP-EKG RESULTS 09/17/2023 3:01 PM WINDOWS SUPPORT ENGINEER SCAN CORRESP-LABORATORY RESULTS 09/17/2023 2:44 PM WINDOWS SUPPORT ENGINEER SCAN CORRESP-IMAGING 09/17/2023 2:44 PM WINDOWS SUPPORT ENGINEER GLUCOSE METER Timed 09/15/2023 8:19 AM WINDOWS SUPPORT ENGINEER GLUCOSE METER Timed 09/14/2023 9:30 PM WINDOWS SUPPORT ENGINEER GLUCOSE METER Timed 09/14/2023 5:27 PM WINDOWS SUPPORT ENGINEER GLUCOSE METER Timed 09/14/2023 12:37 PM WINDOWS SUPPORT ENGINEER GLUCOSE METER Timed 09/14/2023 7:45 AM WINDOWS SUPPORT ENGINEER GLUCOSE METER Timed 09/13/2023 9:16 PM WINDOWS SUPPORT ENGINEER GLUCOSE METER Timed 09/13/2023 5:07 PM WINDOWS SUPPORT ENGINEER GLUCOSE METER Timed 09/13/2023 11:46 AM WINDOWS SUPPORT ENGINEER GLUCOSE METER Timed 09/13/2023 7:35 AM WINDOWS SUPPORT ENGINEER HEPATIC FUNCTION PANEL LIZZIE 5:29 AM WINDOWS SUPPORT ENGINEER BASIC METABOLIC PANEL Early AM 09/13/2023 5:29 AM WINDOWS SUPPORT ENGINEER CBC W PLT NO DIFF Early AM 09/13/2023 5:2 9 AM WINDOWS SUPPORT ENGINEER GLUCOSE METER Timed 09/12/2023 10:40 PM WINDOWS SUPPORT ENGINEER GLUCOSE METER Timed 09/12/2023 9:08 PM WINDOWS SUPPORT ENGINEER GLUCOSE METER Timed 09/12/2023 5:49 PM WINDOWS SUPPORT ENGINEER VIRAL CULTURE GENERAL Today 09/12/2023 3:13 PM WINDOWS SUPPORT ENGINEER BRONCH QUANT CULT STAIN Today 09/12/2023 3:13 PM WINDOWS SUPPORT ENGINEER AFB CULTURE, STAIN Today 09/12/2023 3: 13 PM WINDOWS SUPPORT ENGINEER BAL COUNT AND DIFF Today 09/12/2023 3: 13 PM WINDOWS SUPPORT ENGINEER PATH NON WET PROCESS MILLER CYTOLOGY Today 09/12/2023 3:10 PM WINDOWS SUPPORT ENGINEER [facility] MISCELLANEOUS SENDOUT Timed 09/12/2023 3:10 PM WINDOWS SUPPORT ENGINEER PNEUMOCYSTIS JIROVECI PCR Early AM 09/12/2023 3:10 PM WINDOWS SUPPORT ENGINEER BLASTOMYCES ANTIGEN Early AM 09/12/2023 3 :10 PM WINDOWS SUPPORT ENGINEER ASPERGILLUS GALACTOMANNAN AG BAL/BLOOD Today 09/12/2023 3:10 PM WINDOWS SUPPORT ENGINEER MYCOPLASMA PNEUMONIAE PCR Today 09/12/2023 3:10 PM WINDOWS SUPPORT ENGINEER CHLAMYDIA PNEUMONIAE PCR Today 09/12/2023 3:10 PM WINDOWS SUPPORT ENGINEER VIRAL CULTURE GENERAL Today 09/12/2023 3:10 PM WINDOWS SUPPORT ENGINEER BRONCH QUANT CULT STAIN Today 09/12/2023 3:10 PM WINDOWS SUPPORT ENGINEER MISCELLANEOUS SEND OUT Routine 3:10 PM WINDOWS SUPPORT ENGINEER AFB CULTURE, STAIN Today 09/12/2023 3: 10 PM WINDOWS SUPPORT ENGINEER BAL COUNT AND DIFF Today 09/12/2023 3: 10 PM WINDOWS SUPPORT ENGINEER FAITH PREP, OTHER SOURCE Today 3:10 PM WINDOWS SUPPORT ENGINEER FUNGUS CULT, OTHER SOURCE Today 09/12/2023 3:10 PM WINDOWS SUPPORT ENGINEER BRONCHOSCOPY W BAL 09/12/2023 2: 21 PM WINDOWS SUPPORT ENGINEER pneumonitis BRONCHOSCOPY 09/12/2023 2:08 PM WINDOWS SUPPORT ENGINEER GLUCOSE METER Timed 09/12/2023 12:54 PM WINDOWS SUPPORT ENGINEER [facility] MISCELL[facility]OUS SENDOUT Routine 09/12/2023 9:24 AM WINDOWS SUPPORT ENGINEER MISCELLANEOUS SEND OUT Routine 9:24 AM WINDOWS SUPPORT ENGINEER LD,TOTAL Today 09/12/2023 9:24 AM WINDOWS SUPPORT ENGINEER ANCA PANEL FOR VASCULITIS Today 09/12/2023 9:24 AM WINDOWS SUPPORT ENGINEER ANTINUCLEAR ANTIBODY BY IFA Today 09/12/2023 9:24 AM WINDOWS SUPPORT ENGINEER C-REACTIVE PROTEIN Timed 09/12/2023 9: 24 AM WINDOWS SUPPORT ENGINEER PROCALCITONIN LIZZIE 09/12/2023 8:20 AM WINDOWS SUPPORT ENGINEER TROPONIN T (HS) ONE TIME LIZZIE 09/12/2023 8:20 AM WINDOWS SUPPORT ENGINEER PRO-BNP LIZZIE 09/12/2023 8:20 AM WINDOWS SUPPORT ENGINEER GLUCOSE METER Timed 09/12/2023 7:49 AM WINDOWS SUPPORT ENGINEER CWS PATH REVIEW HEMATOLOGY Timed 09/12/2023 5:11 AM WINDOWS SUPPORT ENGINEER PLATELET ESTIMATE Timed 09/12/2023 5:1 1 AM WINDOWS SUPPORT ENGINEER RED CELL MORPHOLOGY Timed 09/12/2023 5 :11 AM WINDOWS SUPPORT ENGINEER CBC W PLT NO DIFF Early AM 09/12/2023 5:1 1 AM WINDOWS SUPPORT ENGINEER BASIC METABOLIC PANEL Early AM 09/12/2023 5:11 AM WINDOWS SUPPORT ENGINEER GLUCOSE METER Timed 09/11/2023 9:08 PM WINDOWS SUPPORT ENGINEER SCAN-CARDIAC STRIP 09/11/2023 6: 41 PM WINDOWS SUPPORT ENGINEER ECHO TTE COMPLETE WO CONTRAST Routine 09/10/2023 1:45 PM WINDOWS SUPPORT ENGINEER Hypoxia PARATHYROID HORMONE-RELATED PEPTIDE (PTH-RP) Routine 09/01/2023 5:36 AM WINDOWS SUPPORT ENGINEER LAB TRACKING EVENT Routine 08/30/2023 9: 46 AM CDT PERIPHERAL BLD MORPHOLOGY Routine 08/30/2023 9:46 AM CDT from Last 3 Months Results * HOLTER MONITOR 48 HOURS (09/30/2023 12:00 AM WINDOWS SUPPORT ENGINEER) Katerine Bashir MD CARDIAC SERVICES ORD * SCAN CORRESP-EKG RESULTS (09/17/2023 3:01 PM WINDOWS SUPPORT ENGINEER) Narrative 09/17/2023 3:01 PM WINDOWS SUPPORT ENGINEER Ordered by an unspecified provider. Other Clinical Staff OTHER * SCAN CORRESP-LABORATORY RESULTS (09/17/2023 2:44 PM WINDOWS SUPPORT ENGINEER) Narrative 09/17/2023 2:44 PM WINDOWS SUPPORT ENGINEER Ordered by an unspecified provider. Other Clinical Staff OTHER * SCAN CORRESP-IMAGING (09/17/2023 2:44 PM WINDOWS SUPPORT ENGINEER) Anatomical Region Laterality Modality Other Narrative 09/17/2023 2:44 PM WINDOWS SUPPORT ENGINEER Ordered by an unspecified provider. Other Clinical Staff OTHER * (ABNORMAL) GLUCOSE METER (09/15/2023 8:19 AM WINDOWS SUPPORT ENGINEER) Only the most recent of15 resultswithin the time period is included. GLUCOSE METER 199(H) 65 - 100 mg/dL 09/15/2023 8:23 AM WINDOWS SUPPORT ENGINEER [facility] Blood BLOOD SPECIMEN / Unknown 09/15/2023 8:19 AM WINDOWS SUPPORT ENGINEER 09/15/2023 8:23 AM WINDOWS SUPPORT ENGINEER Connie VELAZCO CHEMISTRY [facility] SENDOUT INTERNAL ZIP [phone] [place] [address] * (ABNORMAL) CBC W PLT NO DIFF (09/13/2023 5:29 AM WINDOWS SUPPORT ENGINEER) Only the most recent of2 resultswithin the time period is included. WHITE BLOOD COUNT 71.3(HH) 4.5 - 11.0 thou/cu mm 09/13/2023 6:13 AM [facility] RED BLOOD COUNT 3.24(L) 4.00 - 5.20 mil/cu mm 09/13/2023 6:13 AM [facility] HEMOGLOBIN 9.5(L) 12.0 - 16.0 g/dL 09/13/2023 6:13 AM [facility] HEMATOCRIT 31.9(L) 33.0 - 51.0 % 09/13/2023 6:13 AM [facility] MCV 99 80 - 100 fL 09/13/2023 6:13 AM [facility] MCH 29.3 26.0 - 34.0 pg 09/13/2023 6:13 AM [facility] MCHC 29.8(L) 32.0 - 36.0 g/dL 09/13/2023 6:13 AM [facility] RDW 18.5(H) 11.5 - 15.5 % 09/13/2023 6:13 AM [facility] PLATELET COUNT 320 140 - 440 thou/cu mm 09/13/2023 6:13 AM [facility] MPV 10.7 6.5 - 11.0 fL 09/13/2023 6:13 AM [facility] NRBC 0.0 % 09/13/2023 6:13 AM [facility] ABS NRBC 0.0 thou /cu mm 09/13/2023 6:13 AM [facility] Blood BLOOD SPECIMEN / Unknown Venipuncture / Unknown 09/13/2023 5:29 AM WINDOWS SUPPORT ENGINEER 09/13/2023 5:47 AM [facility] Nabeel Warren MD HEMATOLOGY [facility] SENDOUT INTERNAL ZIP [phone] [place] [id number] * (ABNORMAL) HEPATIC FUNCTION PANEL (09/13/2023 5:29 AM [facility]) ALBUMIN 2.9(L) 4.0 - 4.9 g/dL 09/14/2023 11:43 AM [facility] PROTEIN,TOTAL 5.2(L) 6.0 - 8.0 g/dL 09/14/2023 11:43 AM [facility] BILIRUBIN,TOTAL 0.4 0.0 - 1.2 mg/dL 09/14/2023 11:43 AM [facility] BILIRUBIN,DIRECT <0.2 0.0 - 0.3 mg/dL 09/14/2023 11:43 AM [facility] BILIRUBIN,INDIRE CT 09/14/2023 11:43 AM [facility] Comment:Unable to calculate, Direct Bili <0.2 ALK PHOSPHATASE 88 35 - 104 IU/L 09/14/2023 11:43 AM [facility] ALT (SGPT) 24 10 - 35 IU/L 09/14/2023 11:43 AM [facility] AST (SGOT) 34 10 - 35 IU/L 09/14/2023 11:43 AM [facility] Blood BLOOD SPECIMEN / Unknown Venipuncture / Unknown 09/13/2023 5:29 AM WINDOWS SUPPORT ENGINEER 09/13/2023 5:47 AM [facility] Connie VELAZCO CHEMISTRY [facility] SENDOUT INTERNAL ZIP [phone] [place] [address] * (ABNORMAL) BASIC METABOLIC PANEL (09/13/2023 5:29 AM [facility]) Only the most recent of2 resultswithin the time period is included. SODIUM 139 136 - 145 mmol/L 09/13/2023 6:16 AM [facility] POTASSIUM 4.8 3.5 - 5.1 mmol/L 09/13/2023 6:16 AM [facility] CHLORIDE 107 98 - 107 mmol/L 09/13/2023 6:16 AM [facility] CO2,TOTAL 25 22 - 29 mmol/L 09/13/2023 6:16 AM [facility] ANION GAP 7 5 - 18 09/13/2023 6:16 AM [facility] GLUCOSE 151(H) 70 - 99 mg/dL 09/13/2023 6:16 AM [facility] CALCIUM 10.7(H) 8.8 - 10.2 mg/dL 09/13/2023 6:16 AM [facility] BUN 38(H) 8 - 23 mg/dL 09/13/2023 6:16 AM [facility] CREATININE 0.97(H) 0.50 - 0.90 mg/dL 09/13/2023 6:16 AM [facility] BUN/CREAT RATIO 39(H) 10 - 20 6:16 AM [facility] eGFR 65(L) >90 mL/min/1.7 3m2 09/13/2023 6:16 AM [facility] Comment:As of 2022, eG FR is calculated by the CKD-EPI creatinine equation without race adjustment. ??eGFR can be influenced by muscle mass, exercise, and diet. ??The reported eGFR is an estimation only and is only applicable if the renal function is stable. Blood BLOOD SPECIMEN / Unknown Venipuncture / Unknown 09/13/2023 5:29 AM WINDOWS SUPPORT ENGINEER 09/13/2023 5:47 AM WINDOWS SUPPORT ENGINEER Nabeel Warren MD CHEMISTRY Performing Organization Address City/[facility]/ZIP Co de Phone Number [facility] SENDOUT INTERNAL ZIP [phone] [place] [address] * VIRAL CULTURE GENERAL (09/12/2023 3:13 PM WINDOWS SUPPORT ENGINEER) Only the most recent of2 resultswithin the time period is included. Viral Culture Gen No virus isolated. 09/22/2023 5:07 PM WINDOWS SUPPORT ENGINEER [facility] Bronchoalveolar Lavage (Right Lower Lobe Lung Bronchoalveolar Lavage) Non-Blood / Unknown 09/12/2023 3:13 PM WINDOWS SUPPORT ENGINEER 09/12/2023 3:35 PM WINDOWS SUPPORT ENGINEER Narrative [facility] ([facility]) - 09/22/2023 5:07 PM WINDOWS SUPPORT ENGINEER Performed at: ??[address] ??[id number] [place]: Lorene Boothe MD, Phone: ??[phone] Mihaela PAZBS SEND OUTS Performing Organization Address City/[facility]/ZIP Co de Phone Number [facility] (CET) [address] [place] [address] [place] [address], * BRONCH QUANT CULT STAIN (09/12/2023 3:13 PM WINDOWS SUPPORT ENGINEER) Only the most recent of2 resultswithin the time period is included. CULTURE <10,000 CFU/mL Usual Radha 09/14/2023 3:21 PM WINDOWS SUPPORT ENGINEER [facility] TRAL LABORATORY GRAM STAIN 2+ PMNs 09/14/2023 3:21 PM WINDOWS SUPPORT ENGINEER [facility] GRAM STAIN 1+ Epithelial cells 09/14/2023 3:21 PM WINDOWS SUPPORT ENGINEER [facility] GRAM STAIN No RBCs 09/14/2023 3:21 PM WINDOWS SUPPORT ENGINEER [facility] GRAM STAIN No organisms seen 09/14/2023 3:21 PM WINDOWS SUPPORT ENGINEER [facility] GRAM STAIN Gram stain performed by [place] 09/14/2023 3:21 PM WINDOWS SUPPORT ENGINEER [facility] Bronchoalveolar Lavage (Right Lower Lobe Lung Bronchoalveolar Lavage) Non-Blood / Unknown 09/12/2023 3:13 PM WINDOWS SUPPORT ENGINEER 09/12/2023 3:35 PM WINDOWS SUPPORT ENGINEER Mihaela Keller [facility] [address] [place] [address] LABORATORY SENDOUT INTERNAL ZIP [phone] [place] [address] * AFB CULTURE, STAIN (09/12/2023 3:13 PM WINDOWS SUPPORT ENGINEER) Only the most recent of2 resultswithin the time period is included. CULTURE No Mycobacterium isolated. 10/29/2023 12:27 PM WINDOWS SUPPORT ENGINEER [facility] ACID FAST STAIN No acid fast bacilli seen 10/29/2023 12:27 PM WINDOWS SUPPORT ENGINEER [facility] Bronchoalveolar Lavage (Right Lower Lobe Lung Bronchoalveolar Lavage) Non-Blood / Unknown 09/12/2023 3:13 PM WINDOWS SUPPORT ENGINEER 09/12/2023 3:35 PM WINDOWS SUPPORT ENGINEER Mihaela Keller [facility] [address] [place] [address], * BAL COUNT AND DIFF (09/12/2023 3:13 PM WINDOWS SUPPORT ENGINEER) Only the most recent of2 resultswithin the time period is included. BODY FLUID SOURCE Bronchoalveolar Lavage 09/12/2023 8:02 PM [facility] BAL COLOR Colorless 09/12/2023 8:02 PM [facility] BAL CLARITY Slightly Cloudy 09/12/20 8:02 PM [facility] TOTAL NUCLEATED CELLS, BF 380 /cu mm 09/12/2023 8:02 PM [facility] % NEUTROPHILS, BODY FLUID 23 % 09/12/2023 8:02 PM [facility] % LYMPHOCYTES, BODY FLUID 70 % 09/12/2023 8:02 PM [facility] % MONO/MACRO, BAL 5 % 09/12/2023 8:02 PM [facility] % EOSINOPHILS, BODY FLUID 2 % 09/12/2023 8:02 PM [facility] BRONCH EPITHELIAL None 09/12/2023 8:02 PM [facility] Bronchoalveolar Lavage (Right Lower Lobe Lung Bronchoalveolar Lavage) Non-Blood / Unknown 09/12/2023 3:13 PM WINDOWS SUPPORT ENGINEER 09/12/2023 3:35 PM WINDOWS SUPPORT ENGINEER Mihaela VELAZCO BODY FLUID [facility] SENDOUT INTERNAL ZIP [phone] [place] [address] * PNEUMOCYSTIS JIROVECI PCR (09/12/2023 3:10 PM WINDOWS SUPPORT ENGINEER) P.JIRO SPECIMEN SOURCE SEE COMMENTS 09/16/2023 11:07 PM WINDOWS SUPPORT ENGINEER [facility] [employer] Comment:RESULT: Bronchoalveo lar Lavage, Right Middle Lobe Lung P.JIRO RESULT Negative Not Applicable 09/16/2023 11:07 PM WINDOWS SUPPORT ENGINEER [facility] [employer] Comment: This test was developed and its performance characteristics determined by [facility] in a manner consistent with CLIA requirements. This test has not been cleared or approved by the U.S. Food and Drug Administration. Test Performed by: [facility] - [address] [address] [place]: Matthew Abarca M.D. Ph.D.; CLIA# [id number] Bronchoalveolar Lavage (Right Middle Lobe Lung Bronchoalveolar Lavage) Non-Blood / Unknown 09/12/2023 3:10 PM WINDOWS SUPPORT ENGINEER 09/14/2023 6:36 AM WINDOWS SUPPORT ENGINEER Mihaela Keller [facility] SEND OUTS [facility] [place] [address] [place] [address], * [facility]END[facility] (09/12/2023 3:10 PM WINDOWS SUPPORT ENGINEER) Only the most recent of2 resultswithin the time period is included. [facility] SEND OUT COMMENT 09/18/2023 6:07 PM WINDOWS SUPPORT ENGINEER [facility] TEST[facility] (CET) Comment: Test Ordered: [id number] Histoplasma Quant Ag BAL/CSF Result ? Note: ?ng/mL ?01 ? None Detected ?None Detected Interpretation ? Negative ?01 ?? Positive results reported in ng/mL from 0.20 ng/mL to 20.00 ng/mL Positive results above 20.00 ng/mL are reported as Above the Limit of Quantification Bronchoalveolar Lavage (Right Middle Lobe Lung Bronchoalveolar Lavage) Non-Blood / Unknown 09/12/2023 3:10 PM WINDOWS SUPPORT ENGINEER 09/12/2023 3:35 PM WINDOWS SUPPORT ENGINEER Narrative [facility] ([facility]) - 09/18/2023 6:07 PM WINDOWS SUPPORT ENGINEER Performed At: 01 [employer] [facility] [place] [id number] Mani Ye MD Ph:[phone] Performed At: [address] [id number] Aron Otero MD Ph:[phone] [facility] Performing Organization Address [facility]/ZIP Co de Phone Number [facility] ([facility]) [address] [place] [address], [place] * BLASTOMYCES ANTIGEN (09/12/2023 3:10 PM WINDOWS SUPPORT ENGINEER) [facility] STEFFI(R) BLASTOMYCES AG None Detected None Detected ng/mL 09/20/2023 12:07 PM WINDOWS SUPPORT ENGINEER [facility] ([facility]) Comment: Negative Results reported as ng/mL in 0.2 - 14.7 ng/mL range Results above the limit of detection but below 0.2 ng/mL are reported as 'Positive, Below the Limit of Quantification' Results above 14.7 ng/mL are reported as 'Positive, Above the Limit of Quantification' SPECIMEN TYPE BAL 09/20/2023 12:07 PM WINDOWS SUPPORT ENGINEER [facility] ([facility]) Bronchoalveolar Lavage (Right Middle Lobe Lung Bronchoalveolar Lavage) Non-Blood / Unknown 09/12/2023 3:10 PM WINDOWS SUPPORT ENGINEER 09/14/2023 6:36 AM WINDOWS SUPPORT ENGINEER Narrative [facility] ([facility]) - 09/20/2023 12:07 PM WINDOWS SUPPORT ENGINEER Performed at: ??01 - [employer] [facility], [place] ??[id number] [place]: Minal Singleton MD, Phone: ??[phone] Mihaela VELAZCO SEND OUTS Performing Organization Address City/[facility]/ZIP Co de Phone Number [facility] (CET) [address] [place] [address], * ASPERGILLUS GALACTOMANNAN AG BAL/BLOOD (09/12/2023 3:10 PM WINDOWS SUPPORT ENGINEER) Pathologist [facility] [place] Aspergillus Ag BAL Serum 0.07 0.00 - 0.49 Index 09/18/2023 12:06 AM WINDOWS SUPPORT ENGINEER [facility] ([facility]) Bronchoalveolar Lavage (Right Middle Lobe Lung Bronchoalveolar Lavage) Non-Blood / Unknown 09/12/2023 3:10 PM WINDOWS SUPPORT ENGINEER 09/12/2023 3:35 PM WINDOWS SUPPORT ENGINEER Narrative [facility] ([facility]) - 09/18/2023 12:06 AM WINDOWS SUPPORT ENGINEER Performed at: ??01 - [facility] [address] ??[id number] [place]: Jacob Sharp MD, Phone: ??[phone] Performed at: ??02 - [facility] [address] [place], [place] ??[id number] [place]: Mahnaz Mejia [facility], Phone: ??[phone] Mihaela VELAZCO SEND OUTS [facility] ([facility]) [facility] [place] [address], * MYCOPLASMA PNEUMONIAE PCR (09/12/2023 3:10 PM WINDOWS SUPPORT ENGINEER) [facility] M pneumo PCR Negative Negative 09/18/2023 3:09 PM WINDOWS SUPPORT ENGINEER [facility] ([facility]) Comment: No Mycoplasma pneumoniae DNA detected. This test was developed and its performance characteristics determined by [facility]. ??It has not been cleared or approved by the Food and Drug Administration. ??The FDA has determined that such clearance or approval is not necessary. Bronchoalveolar Lavage (Right Middle Lobe Lung Bronchoalveolar Lavage) Non-Blood / Unknown 09/12/2023 3:10 PM WINDOWS SUPPORT ENGINEER 09/12/2023 3:35 PM WINDOWS SUPPORT ENGINEER Narrative [facility] ([facility]) - 09/18/2023 3:09 PM WINDOWS SUPPORT ENGINEER Performed at: ??01 - [address] ??[id number] [place]: Lorene Boothe MD, Phone: ??[phone] Mihaela VELAZCO BODY FLUID Performing Organization Address [facility] Co de Phone Number [facility] ([facility]) [address] [place] [address] * CHLAMYDIA PNEUMONIAE PCR (09/12/2023 3:10 PM WINDOWS SUPPORT ENGINEER) Pathologist [facility] [place] Chlamydia pneumoniae, PCR Negative Negative 09/18/2023 3:09 PM WINDOWS SUPPORT ENGINEER [facility] ([facility]) Comment: No Chlamydia pneumoniae DNA detected. This test was developed and its performance characteristics determined by [facility]. ??It has not been cleared or approved by the Food and Drug Administration. ??The FDA has determined that such clearance or approval is not necessary. Bronchoalveolar Lavage (Right Middle Lobe Lung Bronchoalveolar Lavage) Non-Blood / Unknown 09/12/2023 3:10 PM WINDOWS SUPPORT ENGINEER 09/12/2023 3:35 PM WINDOWS SUPPORT ENGINEER Narrative [facility] ([facility]) - 09/18/2023 3:09 PM WINDOWS SUPPORT ENGINEER Performed at: ??01 - [address] ??[id number] [place]: Lorene Boothe MD, Phone: ??[phone] Mihaela VELAZCO SEND OUTS Performing Organization Address [facility] Co de Phone Number [facility] ([facility]) [address] [place] [address] * MISCELLANEOUS SEND OUT (09/12/2023 3:10 PM WINDOWS SUPPORT ENGINEER) Only the most recent of2 resultswithin the time period is included. Pathologist [facility] [place] TEST NAME Histoplasma quantitative Ag 09/13/2023 8:15 AM WINDOWS SUPPORT ENGINEER [facility] SOURCE BAL RML 09/13/2023 8:15 AM WINDOWS SUPPORT ENGINEER [facility] PERFORMING LAB [facility] 09/13/2023 8:15 AM WINDOWS SUPPORT ENGINEER [facility] NTRFL LABORATORY REFERRAL LAB TEST # [id number] 09/13/2023 8:15 AM WINDOWS SUPPORT ENGINEER [facility] IS THIS A [facility] TEST? Yes, See [facility] Miscellaneous Sendout result 09/13/2023 8:15 AM WINDOWS SUPPORT ENGINEER [facility] N[facility]AL LABORATORY Bronchoalveolar Lavage (Right Middle Lobe Lung Bronchoalveolar Lavage) Non-Blood / Unknown 09/12/2023 3:10 PM WINDOWS SUPPORT ENGINEER 09/12/2023 3:35 PM WINDOWS SUPPORT ENGINEER Mihaela VELAZCO SEND OUTS [facility] [address] [place] [address], * PATH NON WET PROCESS [facility] CYTOLOGY (09/12/2023 3:10 PM WINDOWS SUPPORT ENGINEER) Case Report Medical Cytology Report ? Case: [id number] ? Authorizing Provider: ??Mihaela Keller MBBS ? Collected: ? 09/12/2023 1510 ? Ordering Location: ? [facility] ?Received: ?09/12/2023 1744 ? Pathologist: ? Raquel Giraldo, DO ? Specimen: ?Right Middle Lobe Lung Bronchoalveolar Lavage, MSO-histo antigen, ? 09/13/2023 2:14 PM WINDOWS SUPPORT ENGINEER [facility] Final Diagnosis A) LUNG, RIGHT MIDDLE LOBE, BRONCHIAL CYTOLOGIC MATERIAL, BRONCHOALVEOLAR LAVAGE: 1. Negative for malignancy in this sample 2. Negative for viral inclusions 3. GMS stain is negative for yeast, fungal hyphae, and Pneumocystis organisms 09/13/2023 2:14 PM WINDOWS SUPPORT ENGINEER [facility] Clinical Information The patient is a 68-year-old with hypoxic respiratory failure. Per the clinical notes, CT scan of the chest revealed diffuse groundglass opacities bilaterally. 09/13/2023 2:14 PM WINDOWS SUPPORT ENGINEER [facility] Gross Description A) SOURCE: Bronchoalveolar Lavage, RML Lung The specimen consists of 7.5 cc of colorless cloudy fluid from which the following is prepared: ? -1 DiffQuik stained slide ? -1 ThinPrep slide for Papanicolaou Stain ? -1 GMS stained ThinPrep slide 09/13/2023 2:14 PM WINDOWS SUPPORT ENGINEER [facility] Microscopic Description Specimen adequacy: Adequate for interpretation. All slides were reviewed. The microscopic appearance substantiates the diagnosis. 09/13/2023 2:14 PM WINDOWS SUPPORT ENGINEER [facility] Additional Information Cytology is screened at [facility] - [address] [address] and [facility] - [address] [place] [address] and [facility] - [address] [place] [address] Interpreted at [facility] - [address] [address] 09/13/2023 2:14 PM WINDOWS SUPPORT ENGINEER [facility] Bronchoalveolar Lavage (Right Middle Lobe Lung Bronchoalveolar Lavage) 09/12/2023 3:10 PM WINDOWS SUPPORT ENGINEER 09/12/2023 5:44 PM WINDOWS SUPPORT ENGINEER Mihaela VELAZCO PATHOLOGY/CYTOLOGY [facility] [address] [place] [address], [place] * FAITH PREP, OTHER SOURCE (09/12/2023 3:10 PM WINDOWS SUPPORT ENGINEER) OBSERVATION No fungal elements seen 09/12/2023 7:14 PM WINDOWS SUPPORT ENGINEER [facility] Bronchoalveolar Lavage (Right Middle Lobe Lung Bronchoalveolar Lavage) Non-Blood / Unknown 09/12/2023 3:10 PM WINDOWS SUPPORT ENGINEER 09/12/2023 3:35 PM WINDOWS SUPPORT ENGINEER Mihaela VELAZCO MICROBIOLOGY [facility] SENDOUT INTERNAL ZIP [address] [address] [place] [address] * FUNGUS CULT, OTHER SOURCE (09/12/2023 3:10 PM WINDOWS SUPPORT ENGINEER) CULTURE No Fungus isolated. 10/11/2023 7:16 AM WINDOWS SUPPORT ENGINEER [facility] Bronchoalveolar Lavage (Right Middle Lobe Lung Bronchoalveolar Lavage) Non-Blood / Unknown 09/12/2023 3:10 PM WINDOWS SUPPORT ENGINEER 09/12/2023 3:35 PM WINDOWS SUPPORT ENGINEER Mihaela VELAZCO MICROBIOLOGY [facility] [address] [place] [id number], [place] * BRONCHOSCOPY (09/12/2023 2:08 PM WINDOWS SUPPORT ENGINEER) 09/12/2023 2:08 PM WINDOWS SUPPORT ENGINEER Narrative Transcriptions Mihaela Keller MBBS - 09/12/2023 3:13 PM CST Patient Name: Breezy Lambault Procedure Date: 09/12/2023 Gender: Female Date of : 1955 Admit Type: Inpatient Procedure: Bronchoscopy Proceduralist: Mihaela Keller MD - [facility] Indications/Pre-Op Diagnosis: Chronic cough, diffuse GGO opacities on CT, immunocompromised patient. Medications: Fentanyl 50 mcg IV, Midazolam 2 mg IV, Lidocaine 1% subglottic space 4 mL,Lidocaine 2% applied to cords 3 mL Procedure Description: The need for, risks and the procedure was explained to the patientand informed consent obtained. Patient was brought to the bronchoscopy suite, monitors placed and supplemental oxygen given. The endoscope [id number] was introduced through the mouth and advanced to the tracheobronchial tree. The procedure was accomplished without difficulty. The patient tolerated the procedure well. Complications: Patient was hypotensive prior to procedure, given 250 ml saline bolus, No immediate complications from bronchoscopy, Estimated Blood Loss & Specimen: Estimated blood loss: none. Specimen collected: Yes and sent to Laboratory Findings: The nasopharynx/oropharynx appears normal. The larynx appears normal. The vocal cords appear normal. The subglottic space is normal. The trachea is of normal caliber. The westley is sharp. Thetracheobronchial tree of the right lung was examined to at least the firstsubsegmental level. Bronchial mucosa and anatomy in the right lung are normal;there are no endobronchial lesions, and no secretions. Mucus, plugging the airway, was found in the right mainstem bronchus. The mucus was mucopurulent. The underlying mucosa is normal. The bronchoscope was advanced until wedged at the desired location for bronchoalveolar lavage. BAL was performed in the right middle lobe and in the right lower lobe of the lung and sent for cell count, bacterial culture,viral smears & culture, fungal & AFB analysis and cytology for immunocompromised host protocol. 150 mL of fluid were instilled. 40mL were returned. The return was cloudy. Mucous plugs were present inthe return fluid. Multiple specimens were obtained, and each sent for analysis. Impression/Post-Op Diagonsis: - Chronic cough - The airway examination of the right lung was normal. - A mucous plug was found in the right mainstem bronchus. - Bronchoalveolar lavage was performed. Moderate Sedation: Moderate (conscious) sedation was administered by the nurse and supervised by the physician performing the procedure. The patient's oxygen saturation, heart rate, blood pressure and response to carewere monitored. Total physician intraservice time was 15 minutes. Recommendation: - Await test results. Mihaela Keller MD 09/12/2023 3:13:38 PM This report has been signed electronically. Note Initiated On: 09/12/2023 2:08 PM Mihaela VELAZCO PROCEDURE ORD * ANTINUCLEAR ANTIBODY BY IFA (09/12/2023 9:24 AM WINDOWS SUPPORT ENGINEER) ANTINUCLEAR ANTIBODY (ANKITA) Negative Negative 09/13/2023 1:36 PM WINDOWS SUPPORT ENGINEER [facility] Blood BLOOD SPECIMEN / Unknown Venipuncture / Unknown 09/12/2023 9:24 AM WINDOWS SUPPORT ENGINEER 09/12/2023 9:59 AM WINDOWS SUPPORT ENGINEER Narrative [facility] - 09/13/2023 1:36 PM WINDOWS SUPPORT ENGINEER Method: ANKITA screen performed by (IFA) on HEP-2 substrate, IgG Mihaela VELAZCO CHEMISTRY [facility] [address] [place] [address], * ANCA PANEL FOR VASCULITIS (09/12/2023 9:24 AM WINDOWS SUPPORT ENGINEER) ANCA Negative Negative 09/16/2023 1:53 PM WINDOWS SUPPORT ENGINEER [facility] Comment: Atypical ANCA cannot be ruled out due to presence of ANKITA on screening.?? ANKITA screen results are not valid for diagnosis of Autoimmune Disease.?? Order ANKITA testing for further evaluation as clinically indicated. Blood BLOOD SPECIMEN / Unknown Venipuncture / Unknown 09/12/2023 9:24 AM WINDOWS SUPPORT ENGINEER 09/12/2023 9:59 AM WINDOWS SUPPORT ENGINEER Mihaela PAZ SEND OUTS [facility] [address] [place] [address], * (ABNORMAL) LD,TOTAL (09/12/2023 9:24 AM WINDOWS SUPPORT ENGINEER) Pathologist [facility] [place] LD,TOTAL 414(H) 135 - 214 IU/L 09/12/2023 10:40 AM WINDOWS SUPPORT ENGINEER [facility] Blood BLOOD SPECIMEN / Unknown Venipuncture / Unknown 09/12/2023 9:24 AM WINDOWS SUPPORT ENGINEER 09/12/2023 9:59 AM WINDOWS SUPPORT ENGINEER Mihaela PAZ CHEMISTRY [facility] SENDOUT INTERNAL ZIP [phone] [place] [address] * (ABNORMAL) C-REACTIVE PROTEIN (09/12/2023 9:24 AM WINDOWS SUPPORT ENGINEER) [facility] C-REACTIVE PROTEIN 1.7(H) <0.5 mg/dL 09/12/2023 10:29 AM WINDOWS SUPPORT ENGINEER [facility] Blood BLOOD SPECIMEN / Unknown Venipuncture / Unknown 09/12/2023 9:24 AM WINDOWS SUPPORT ENGINEER 09/12/2023 9:59 AM WINDOWS SUPPORT ENGINEER Mihaela PAZ CHEMISTRY [facility] SENDOUT INTERNAL ZIP [address] [place] [address] * (ABNORMAL) TROPONIN T (HS) ONE TIME (09/12/2023 8:20 AM WINDOWS SUPPORT ENGINEER) [facility] TROPONIN T HS 16(H) 6-10 ng/L ng/L 09/12/2023 9:25 AM WINDOWS SUPPORT ENGINEER [facility] Blood BLOOD SPECIMEN / Unknown Venipuncture / Unknown 09/12/2023 8:20 AM WINDOWS SUPPORT ENGINEER 09/12/2023 8:51 AM WINDOWS SUPPORT ENGINEER Narrative [facility] - 09/12/2023 9:25 AM WINDOWS SUPPORT ENGINEER hs-cTnT (Elecsys Troponin T Gen 5) concentration (s) above the sex-specific 99th percentile (16 ng/L or greater for males or 11 ng/L or greater for females) are indicative of myocardial injury. If initial hs-cTnT <=100 ng/L at presentation, a 0h/2h ABSOLUTE (ng/L) delta change (rising or falling) of >=10 ng/L suggests a significant change, whereas a 0h/2h delta change <=3 ng/L suggests no significant change. If initial hs-cTnT >100 ng/L at presentation, a 0h/2h/ RELATIVE (percent, %) delta change of 20% is suggested to distinguish patients with acute vs. chronic myocardial injury. There are multiple etiologies that can cause hs-cTnT increases above the 99th percentile (myocardial injury) other than acute myocardial infarction. Clinical context and careful clinical evaluation are critical for diagnosis and risk-stratification. The diagnosis of acute myocardial infarction requires a rising and/or falling pattern in hs-cTnT concentrations with at least one value above the sex-specific 99th percentile PLUS at least one of the following clinical criteria: ischemic symptoms, new or presumed new significant ST-T wave changes or new LBBB, development of pathological Q waves, imaging evidence of new loss of viable myocardium or new regional wall motion abnormality, or identification of intracoronary atherothrombosis or an acute angiographic culprit on coronary angiography. In appropriate low-risk patients with a non-ischemic electrocardiogram without active chest pain with a symptom onset >3-hours without recurrence, a single initial hs-cTnT<6 ng/L identifies patient with a very low risk in emergency department patient population. Ely Roach NP CHEMISTRY [facility] SENDOUT INTERNAL ZIP [address] [address] [place] [address] * PROCALCITONIN (09/12/2023 8:20 AM WINDOWS SUPPORT ENGINEER) PROCALCITONIN 0.15 ng/ml 09/12/2023 9:34 AM WINDOWS SUPPORT ENGINEER [facility] Blood BLOOD SPECIMEN / Unknown Venipuncture / Unknown 09/12/2023 8:20 AM WINDOWS SUPPORT ENGINEER 09/12/2023 8:51 AM WINDOWS SUPPORT ENGINEER [facility] LABORATORY - 09/12/2023 9:34 AM WINDOWS SUPPORT ENGINEER Procalcitonin for initial assessment of Lower Respiratory Tract Infection: Results Interpretation <0.10 ng/mL Antibiotic therapy strongly discoraged. ??Indicates absent of bacterial infection. * 0.10 - 0.25 ng/mL Antibiotic therapy discouraged. ??Bacterial infection unlikely. * 0.26 - 0.50 ng/mL Antibiotic therapy encouraged. ??Bacterial infection possible. >0.50 ng/mL Antibiotic therapy strongly encouraged. ??Suggestive of presence of bacterial infection. *Antibiotic therapy should be considered regardless of PCT result if the patient is clinically unstable, is at high risk for adverse outcome, has strong evidence of bacterial pathogen, or the clinical context indicates antibiotic therapy is warranted. ??If antibiotics are withheld, reassess if symptoms persist/worsen and/or repeat PCT measurement within 6-24 hours. ? In order to assess treatment success and to support a decision to discontinue antibiotic therapy, follow up samples should be tested once every 1-2 days, based upon physician discretion taking into account patient's evolution and progress. Procalcitonin for initial assessment of severe sepsis risk: Results Interpretation <0.5 ng/ml A PCT level below 0.5 ng/ml on the first day of ICU admission is associated with a low risk for progression to severe sepsis and/or septic shock. > 2.0 ng/mL A PCT level above 2.0 ng/mL on the first day of ICU admission is associated with a high risk for progression to severe sepsis and/or septic shock. Note: Concentrations < 0.5 ng/mL do not exclude an infection, on account of localized infections (without systemic signs) which can be associated with such low concentrations, or a systemic infection in its initial stages(< 6 hours). Furthermore, increased procalcitonin can occur without infection. PCT concentrations between 0.5 and 2.0 ng/mL should be interpreted taking into account the patient's history. It is recommended to retest PCT within 6-24 hours if any concentrations < 2 ng/mL are obtained. Ely Roach NP SEND OUTS Performing Organization Address [facility]/ZIP Co de Phone Number [facility] SENDOUT INTERNAL ZIP [phone] [place] [address] * (ABNORMAL) PRO-BNP (09/12/2023 8:20 AM WINDOWS SUPPORT ENGINEER) PRO-BNP 1,738(H) <125 pg/mL 09/12/2023 9:35 AM WINDOWS SUPPORT ENGINEER [facility] Blood BLOOD SPECIMEN / Unknown Venipuncture / Unknown 09/12/2023 8:20 AM WINDOWS SUPPORT ENGINEER 09/12/2023 8:51 AM WINDOWS SUPPORT ENGINEER Narrative [facility] - 09/12/2023 9:35 AM WINDOWS SUPPORT ENGINEER The following cut-points have been suggested for the use of proBNP for the diagnostic evaluation of heart failure (HF) in patient with acute dyspnea. Patients with eGFR >= 60 Diagnosis (rule in CHF) ? <50 Years Old ?450 pg/mL 50 - 75 Years Old ?900 pg/mL >75 Years Old ? 1800 pg/mL Exclusion (rule out CHF) Age Independent ?300 pg/mL A cutoff of 1200 pg/mL for patients with an eGFR <60 yields a diagnostic sensitivity of 89% and specificity of 72% for acute congestive heart failure. ? Ely Roach NP SEND OUTS [facility] SENDOUT INTERNAL ZIP [phone] [place] [address] * CWS PATH REVIEW HEMATOLOGY (09/12/2023 5:11 AM WINDOWS SUPPORT ENGINEER) Blood BLOOD SPECIMEN / Unknown Venipuncture / Unknown 09/12/2023 5:11 AM WINDOWS SUPPORT ENGINEER 09/12/2023 5:28 AM WINDOWS SUPPORT ENGINEER Easton Terry MD LABORATORY Performing Organization Address [facility]/ZIP Co de Phone Number [facility] SENDOUT INTERNAL ZIP [address] [address] [place] [address] * RED CELL MORPHOLOGY (09/12/2023 5:11 AM WINDOWS SUPPORT ENGINEER) Pathologist [facility] [place] RBC COMMENT RBC morphology appears normal RBC morphology appears normal, RBC morphology within normal limits for newborns. 09/12/2023 6:32 AM WINDOWS SUPPORT ENGINEER [facility] WBC REACTIVE LYMPHS Present 09/12/2023 6:32 AM WINDOWS SUPPORT ENGINEER [facility] Blood BLOOD SPECIMEN / Unknown Venipuncture / Unknown 09/12/2023 5:11 AM WINDOWS SUPPORT ENGINEER 09/12/2023 5:28 AM WINDOWS SUPPORT ENGINEER Easton Terry MD HEMATOLOGY Performing Organization Address City/[facility]/ZIP Co de Phone Number [facility] SENDOUT INTERNAL ZIP [address] [address] [place] [address] * PLATELET ESTIMATE (09/12/2023 5:11 AM WINDOWS SUPPORT ENGINEER) [facility] PLATELET ESTIMATE Adequate Adequate, No estimate 09/12/2023 6:32 AM WINDOWS SUPPORT ENGINEER [facility] Blood BLOOD SPECIMEN / Unknown Venipuncture / Unknown 09/12/2023 5:11 AM WINDOWS SUPPORT ENGINEER 09/12/2023 5:28 AM WINDOWS SUPPORT ENGINEER Easton Terry MD HEMATOLOGY Performing Organization Address [facility]/ZIP Co de Phone Number [facility] SENDOUT INTERNAL ZIP [address] [address] [place] [address] * SCAN-CARDIAC STRIP (09/11/2023 6:41 PM WINDOWS SUPPORT ENGINEER) Scanner OTHER * ECHO TTE COMPLETE WO CONTRAST (09/10/2023 1:45 PM WINDOWS SUPPORT ENGINEER) Pathologist [facility] [place] AORTIC VALVE MEAN PG 4 mmHg EJECTION FRACTION 60 % LVEDD 4.6 cm Anatomical Region Laterality Modality Ultrasound 09/10/2023 1:15 PM WINDOWS SUPPORT ENGINEER Narrative 09/10/2023 3:07 PM WINDOWS SUPPORT ENGINEER ECHOCARDIOGRAM BREEZY TREJO ? Accession#: ?? [id number] : ?1955 68 years Study Date: ?? 09/10/2023 1:15:26 PM Gender: F ?BP: ? 119/54 mmHg Height: 168.00 cm ?BSA: ?1.83 m? ? ? Weight: 73.00 kg ? Tech: ? MHR ? Referring MD: MARIAH SAXENA Site: ? [facility] Reading Location: [facility] Patient Location: Inpatient. Procedure: 2D, Color Doppler and Spectral Doppler. Indication for study: hypoxia Cardiac Rhythm: Irregular.Study quality: Fair. Final Impressions: 1. Normal left ventricular size, normal wall thickness, normal global systolic function, calculated EF of 60 %. 2. Right ventricular cavity size is normal, global systolic RV function is normal. 3. Mildly enlarged left atrium. 4. No significant valve disease detected. Comparison Compared to prior exam report of 11/19/2015, there has been no significant change. Chamber Sizes and Function Normal left ventricular size, normal wall thickness, normal global systolic function, calculated EF of 60 %. Left atrial size is mildly enlarged. Right ventricular cavity size is normal, global systolic RV function is normal. RV wall thickness is normal. The right atrium is mildly enlarged. Right atrial volume index is 15 ml/m? ? ?. Right atrial area is 11 cm? ? ?. The pulmonary artery is of normal size and origin. The sinus of Valsalva is normal sized. The ascending aorta is normal sized. Valves, RV Pressures and Diastolic Function The aortic valve is trileaflet, no stenosis and no regurgitation. The mitral valve is normal in structure, trace mitral regurgitation. Indeterminate pattern of LV diastolic filling. The tricuspid valve is normal in structure. Tricuspid regurgitation is mild regurgitation. The pulmonic valve is normal. Trace pulmonary regurgitation. Masses, Effusion, Shunts There is no pericardial effusion. The inferior vena cava is normal sized, respiratory size variation greater than 50%. Interatrial septum is not well visualized. MEASUREMENTS AND CALCULATIONS 2-D Measurements and LV Function: LVID (d) ?4.6 cm Planimetered EF 60 % LVID (s) ?3.7 cm LV FS% (2D) ? 19 % IVS (d) ? 1.1 cm LVOT diameter ?? 2.0 cm LVPW (d) ?1.1 cm HR ?73 bpm Ao Sinus ?3.2 cm LA Vol index ?26 ml/m2 Ao ST junct 2.7 cm RA Vol index ?15 ml/m2 Asc Ao ?3.1 cm RA area ? 11 cm? ? ? LA ?4.1 cm RV Max 4C (d) ?? 2.8 cm Diastology: Mitral ?Tissue Doppler E Peak 0.7 m/s ??e', Septum ? 0.07 m/s A Peak 0.7 m/s ??e', Lateral ?0.10 m/s E/A ?1.0 ?E/e' Average ?? 7.81 DT ? 344 msec Aortic Valve: Vmax ? 1.4 m/s ??KALIE (V) ?? 2.68 cm? ? ? VTI ?0.27 m ?? KALIE (I) ?? 2.75 cm? ? ? LVOT V max 1.2 m/s ??Max PG ?8 mmHg LVOT VTI ?? 0.24 m ?? Mean PG ?? 4 mmHg SV ? 75 ml ?Dim Index 0.87 SV index ?? 41 ml/m? ? ? CO ?5.4 l/min ?CI ?3.0 l/min/m? ? ? Mitral Valve: MVA ?2.2 cm? ? ? MV P 1/2 100 msec Tricuspid Valve and estimated PA pressures: TAPSE 1.0 cm . This study was interpreted by an [facility] accredited facility. CC: HIM (med records) [facility], Med/Surg - IP [facility]. ??Final ?? Procedure Note Evan Johnson MD - 09/10/2023 ECHOCARDIOGRAM BREEZY TREJO : 1955 68 years Study Date: 09/10/2023 1:15:26 PM Gender: F BP: 119/54 mmHg Height: 168.00 cm BSA: 1.83 m? ? ? Weight: 73.00 kg Tech: [facility] Referring MD: MARIAH SAXENA Site: [facility] Reading Location: [facility] Patient Location: Inpatient. Procedure: 2D, Color Doppler and Spectral Doppler. Indication for study: hypoxia Cardiac Rhythm: Irregular.Study quality: Fair. Final Impressions: 1. Normal left ventricular size, normal wall thickness, normal globalsystolic function, calculated EF of 60 %. 2. Right ventricular cavity size is normal, global systolic RV functionis normal. 3. Mildly enlarged left atrium. 4. No significant valve disease detected. Comparison Compared to prior exam report of 11/19/2015, there has been no significantchange. Chamber Sizes and Function Normal left ventricular size, normal wall thickness, normal globalsystolic function, calculated EF of 60 %. Left atrial size is mildlyenlarged. Right ventricular cavity size is normal, global systolic RVfunction is normal. RV wall thickness is normal. The right atrium ismildly enlarged. Right atrial volume index is 15 ml/m? ? ?. Right atrial areais 11 cm? ? ?. The pulmonary artery is of normal size and origin. The sinusof Valsalva is normal sized. The ascending aorta is normal sized. Valves, RV Pressures and Diastolic Function The aortic valve is trileaflet, no stenosis and no regurgitation. Themitral valve is normal in structure, trace mitral regurgitation.Indeterminate pattern of LV diastolic filling. The tricuspid valve isnormal in structure. Tricuspid regurgitation is mild regurgitation. Thepulmonic valve is normal. Trace pulmonary regurgitation. Masses, Effusion, Shunts There is no pericardial effusion. The inferior vena cava is normal sized,respiratory size variation greater than 50%. Interatrial septum is notwell visualized. MEASUREMENTS AND CALCULATIONS 2-D Measurements and LV Function: LVID (d) 4.6 cm Planimetered EF 60 % LVID (s) 3.7 cm LV FS% (2D) 19 % IVS (d) 1.1 cm LVOT diameter 2.0 cm LVPW (d) 1.1 cm HR 73 bpm Ao Sinus 3.2 cm LA Vol index 26 ml/m2 Ao ST junct 2.7 cm RA Vol index 15 ml/m2 Asc Ao 3.1 cm RA area 11 cm? ? ? LA 4.1 cm RV Max 4C (d) 2.8 cm Diastology: Mitral Tissue Doppler E Peak 0.7 m/s e', Septum 0.07 m/s A Peak 0.7 m/s e', Lateral 0.10 m/s E/A 1.0 E/e' Average 7.81 DT 344 msec Aortic Valve: Vmax 1.4 m/s KALIE (V) 2.68 cm? ? ? VTI 0.27 m KALIE (I) 2.75 cm? ? ? LVOT V max 1.2 m/s Max PG 8 mmHg LVOT VTI 0.24 m Mean PG 4 mmHg SV 75 ml Dim Index 0.87 SV index 41 ml/m? ? ? CO 5.4 l/min CI 3.0 l/min/m? ? ? Mitral Valve: MVA 2.2 cm? ? ? MV P 1/2 100 msec Tricuspid Valve and estimated PA pressures: TAPSE 1.0 cm . This study was interpreted by an [facility] accredited facility. CC: HIM (med records) [facility], Med/Surg - IP [facility]. Final Mariah Saxena MD ECHO ORD * PARATHYROID HORMONE-RELATED PEPTIDE (PTH-RP) (09/01/2023 5:36 AM WINDOWS SUPPORT ENGINEER) [facility] PTH Related Peptide <2.0 pmol/L 09/06 3:09 PM WINDOWS SUPPORT ENGINEER [facility] ([facility]) Comment: This test was developed and its performance characteristics determined by [facility]. It has not been cleared or approved by the Food and Drug Administration. Reference Range: All Ages: <2.0 The PTHrP assay should not be used to exclude cancer or screen tumor patients for humoral hypercalcemia of malignancy (HHM). The results should always be assessed in conjunction with the patient's medical history, clinical examination, and other findings. If test results are clinically discordant, please contact the laboratory. Blood BLOOD SPECIMEN / Unknown Client Collect / Unknown 09/01/2023 5:36 AM WINDOWS SUPPORT ENGINEER 09/02/2023 1:31 PM WINDOWS SUPPORT ENGINEER Narrative [facility] ([facility]) - 09/06/2023 3:09 PM WINDOWS SUPPORT ENGINEER Performed at: ??01 - [employer] [address] [place] [address] ??[id number] Rock Star: Kwan Yan MD, Phone: ??[phone] Mariah Saxena MD SEND OUTS [facility] ([facility]) [address] [place] [address] * LAB TRACKING EVENT (08/30/2023 9:46 AM CDT) Other (Other) Client Collect / Unknown 08/30/2023 9:46 AM CDT 08/30/2023 10:02 PM CDT Doctor Unknown LAB BILL ONLY [facility] [address] [place] [address], [place] * PERIPHERAL BLD MORPHOLOGY (08/30/2023 9:46 AM CDT) Case Report Special Hematology Report ? Case: [id number] ? Authorizing Provider: ??Unknown, Doctor ?Collected: ? 08/30/2023 0946 ? Ordering Location: ? L CENTRAL LAB ?Received: ?08/31/2023 0301 ? Pathologist: ? Maxim Quiroga, ? MD ? Specimen: ?Peripheral Blood ? 09/03/2023 10:40 AM [facility] [employer] LABORATORY-C ENTRAL LABORATORY Final Diagnosis PERIPHERAL BLOOD: 1. Chronic lymphocytic leukemia (CLL) ?? a. There is no evidence of transformation or hemolysis ?? b. Approximate absolute monotypic B lymphocytes = 92026/cumm ?? c. Prior FISH for CLL was positive for trisomy 12 ([id number]) 2. Mild absolute neutrophilia and monocytosis, nonspecific 3. 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 Clinical correlation is recommended. This case was also reviewed by Natividad Carter [place], ([facility]). 09/03/2023 10:40 AM [facility] [employer] LABORATORY-C [facility] Clinical Information The patient is a 68-year-old female who was diagnosed with chronic lymphocytic leukemia/small lymphocytic lymphoma 2018 ([id number]) via left supraclavicular lymph node. FISH for CLL was positive for trisomy 12. 09/03/2023 10:40 AM [facility] [employer] LABORATORY-C ENTRFL LABORATORY CBC and Differential HEMATOLOGY PARAMETERS Tested at: ??[facility] ? RESULTS ??EXPECTED VALUES WBC: ? 65.5 ? 4.5-93j6858/cumm ?ELEVATED RBC: ? 4.08 ? 4.00-5.20 mil/cumm HGB: ? 12.2 ? 12-16 gm/dl ? HCT: ? 39.3 ? 33-51% ? MCV: ? 96.0 ? 80-100 fl ? NORMOCYTIC MCH: ? 29.9 ? 26-34 pg ? MCHC: ?31.0 ? 32-36 gm/dl ? HYPOCHROMIC RDW: ? 16.4 ? 11.5-15.5% ?ELEVATED PLT: ? 240 ?140-579g4995/uL ? Retic: ?? 0.5 ?0.5-1.5% ? Differential ?Absolute (%) ?Expected (%) ?(x10*9/L) ? (x10*9/L) Neutrophils: ?7.9 (12.1) ?1.7-7.0 (42-72%) ??ELEVATED Lymphocytes: ?56.3 (86) ? 0.9-2.9 (20-44%) ??ELEVATED Monocytes: ?1.3 (2) ?<0.9 (0-11%) ? ELEVATED 09/03/2023 10:40 AM [facility]-C ENTRFL LABORATORY Microscopic Description The final diagnosis is based on microscopic examination of an appropriately stained blood smear. 09/03/2023 10:40 AM [facility] Flow Cytometry Summary B Cell Leukemia/Lymphoma panel: Interpretation: CD5-positive/CD23 -positive/ZQ541-v ositive lambda light chain-restricted B-cell population identified (~84%). Clinical indication for flow cytometry: History of CLL/SLL. A monotypic B cell cohort is detected that comprises approximately 84.1% of total viable nucleated events as defined by light scatter criteria. Summary of B cell phenotype Brightly positive markers: CD45/CD200 Moderately positive markers: LAMBDA/CD19/CD20/ CD23/CD43 Dimly positive markers: CD5/CD79b/CD22 Trace positive markers: Negative markers: CD2/CD3/CD103/NING PA/CD10/CD38 Approximate absolute monotypic B lymphocytes = 24204/cumm Quality Assessment Viability (7-AAD): 74% Monotypic B cell events: 8277 Nucleated cells analyzed: 9837 Limit of detection (LOD): 0.2% These results and cytograms have been verified by Dr. Quiroga. This test was developed and its performance characteristics [facility]. It has not been cleared or approved by the [place] Food and Drug Administration. This test is used for clinical purposes and should not be regarded as investigational or for research. Analytic Flow Tech: Ephraim Dalton Jeff, 09/02/2023 12:45 PM Verifying Flow Tech: Olinda LeonSterling, 09/02/2023 1:05 PM 09/03/2023 10:40 AM WINDOWS SUPPORT ENGINEER [facility] [employer] LABORAT[facility]-C ENTRAL LABORATORY Additional Information Interpreted at [facility] [employer] [facility], Central Laboratory - [address] [place] [address] [address] [address] 09/03/2023 10:40 AM [facility] [employer] LABORATORY-C ENTRFL LABORATORY Blood (Peripheral Blood) 08/30/2023 9:46 AM CDT 08/31/2023 3:01 AM CDT Doctor Unknown HEMATOLOGY Performing Organization Address City/State/[facility] Co de Phone Number [facility] [address] [place] [address], from Last 3 Months Advance Directives Latest Code Status on File Code Status Date Activated Date Inactivated Comments Full Code 09/11/2023 8:30 PM 09/15/2023 3:11 PM Question Answer Comments Code Status Discussion: Reviewed Preferences Code Status History Code Status Date Activated Date Inactivated Comments Full Code 11/19/2015 1:43 PM 11/24/2015 8:35 PM Question Answer Comments Code Status Discussion: Discussed Care Teams Manager Contracting Relationship Specialty Start Date End Date Katerine Bashir MD [address] [place] [address] PCP - General Family Practice 12/27/20 Easton Mccormick MD [id number] [place] [address] Cardiovascular Disease 09/26/16
--- OUTSIDE RECORDS SUMMARY | 2023-11-19 07:37 | XMS_ITS | Encounter Summary ---
Author Name Unknown Organization [facility] Address [address] [place] [address] Care Team Providers Care Junior Technical Writer Name Role Phone Elsewhere, Pcp Primary Care Provider Unavailabl e Reason for Referral * Outpatient (Routine) - Closed Specialty Diagnoses / Procedures Referred By Contac t Referred To Contact Cardiovascular Disease Diagnoses Coronary Artery Disease (Unspecified) Katerine Bashir M.D. [address] [place] [address] [facility] Referral ID Status Reason Start Date Expiration Date Visits Re quested Visits Authorized [id number] Closed 02/10/2019 02/10/2020 3 3 Encounter Details Date Type Department Care Team (Late st Contact Info) Description 02/10/2019 [facility] [address] [place] [address] Katerine Bashir M.D. [address] [place] [address] Coronary Artery Disease (Unspecified) (Primary [...] st Contact Info) Description 11/25/2023 8:30 AM BUSINESS PROCESS CONSULTANT Ancillary Procedure Department of Ophthalmology in [place], [place] [address] [place] [phone] Kenya Garza M.D. [address] [place] [phone] 11/25/2023 9:00 AM BUSINESS PROCESS CONSULTANT Ancillary Procedure Department of Ophthalmology in [place], [place] [address] [place] [phone] Kenya Garza M.D. [address] [place] [phone] 11/25/2023 11:15 AM BUSINESS PROCESS CONSULTANT Ancillary Procedure Department of Ophthalmology in [place], [place] [address] [place] [phone] Kenya Garza M.D. [address] [place] [phone] 11/25/2023 11:45 AM BUSINESS PROCESS CONSULTANT Office Visit Department of Ophthalmology in [place], [place] [address] [place] [phone] Kenya Garza M.D. [address] [place] [phone] Scheduled Referrals Name Type Priority Associated Diagnoses Order Schedule Cardiovascular Diseases Referral Outpatient Referral Routine Coronary Artery Disease (Unspecified) Expected: 02/10/2019 (Approximate), Expires: 02/10/2022 documented as of this encounter Visit Diagnoses Diagnosis Coronary Artery Disease (Unspecified)- Primary documented in this encounter Additional Health Concerns Infection Onset Date Last Indicated Resolved Time COVID19 Pending 06/23/2020 06/23/2020 06/23/2020 1 0:32 PM CDT COVID19 Pending 06/29/2020 06/29/2020 06/30/2020 2 :23 AM CDT documented as of this encounter Care Teams Junior Technical Writer Relationship Specialty Start Date End Date Elsewhere, Pcp PCP - General Internal Medicine 05/29/19 documented as of this encounter
--- OUTSIDE RECORDS SUMMARY | 2023-11-19 07:37 | XMS_ITS | Encounter Summary ---
Author Name Unknown Organization [facility] Address [address] [place] [address] Care Team Providers Care Lpn Instructor Name Role Phone Elsewhere, Pcp Primary Care Provider Unavailabl e Encounter Details Date Type Department Care Team (Latest Contact Info) Description 11/01/2023 Clinical Communication Department of Ophthalmology in [place], [place] [address] [place] [address] Kenya Garza M.D. [address] [place] [phone] Social History Tobacco Use Types Packs/Day Years Used Date Smoking Tobacco: Light Smoker Cigarettes 0.5 39 Started: 02/26/1980 Smokeless Tobacco: Never Comments:On again off again Alcohol Use Standard Drinks/Week Comments Yes 0 (1 standard drink = 0.6 oz pur e alcohol) [facility] Utilities Answer Date Recorded In the past 12 months has [employer], gas, oil, or water company threatened to [...] How often do you attend sabianist or presybeterian serv ices? Never 06/27/2020 Do you belong [...] medical care, and heating? Somewhat hard 06/27/2020 [facility] [place] of Occupat ional Health - Occupational Stress [...] your living situation today? I have a [facility] place to live 11/05/2023 Education Answer [...] st Contact Info) Description 11/25/2023 8:30 AM STRUCTURAL STEEL WORKER Ancillary Procedure Department of Ophthalmology in [place], [place] [address] [place] [phone] Kenya Garza M.D. [address] [place] [phone] 11/25/2023 9:00 AM STRUCTURAL STEEL WORKER Ancillary Procedure Department of Ophthalmology in [place], [place] [address] [place] [phone] Kenya Garza M.D. [address] [place] [phone] 11/25/2023 11:15 AM STRUCTURAL STEEL WORKER Ancillary Procedure Department of Ophthalmology in [place], [place] [address] [place] [phone] Kenya Garza M.D. [address] [place] [phone] 11/25/2023 11:45 AM STRUCTURAL STEEL WORKER Office Visit Department of Ophthalmology in [place], [place] [address] [place] [phone] Kenya Garza M.D. [address] [place] [phone] documented as of this encounter Visit Diagnoses Not on filedocumented in this encounter Care Teams Lpn Instructor Relationship Specialty Start Date End Date Elsewhere, Pcp PCP - General Internal Medicine 05/29/19 documented as of this encounter
[2023-11-19 09:47] VITALS: BP 150/66; PULSE 89; RESP 18
[2023-11-19] MEDS: REGADENOSON 0.4 MG/5 ML SYRINGE IVP (09:47)
[2023-11-19] MEDS: SODIUM CHLORIDE 0.9 % (FLUSH) 10 ML SYRINGE IVF (09:47)
--- NOTE | 2023-11-19 11:10 | W.PM.STED ---
Stress Test Note Date Date Seen: 11/19/23 Date of test: 11/19/23 Providers Referring provider: Guzman Grayson Primary care provider: Katerine Bashir Stress test physician: Kika Infante Stress Test Note Stress test ordered: Lexiscan Indication for test: PVCs Stress test medicine: Lexiscan Results discussion: Resting EKG: Sinus rhythm, 69 beats per minute. Poor R-wave progression anterior precordial leads. Resting blood pressure: 144/78 Stress test: Patient followed a walking Lexiscan. She had no symptoms with the regadenoson administration. Unfortunately, there was significant artifact with the EKG leads. Attempts were made to switch out leads, stabilize leads. PVCs were seen, at 2 minutes 14 seconds in recovery, did get a good EKG recording, patient had bigeminy and couplets of PVCs. She was not having any symptoms. Blood pressure in recovery was 150/66. Of the few tracing that were discernible, saw no evidence of any ischemia. Impression: Subjectively negative, objectively negative EKG portion for ischemia but limited by significant artifact, PVCs seen. Follow up suggested: Patient will have post stress nuclear images obtained. We will await the imaging portion of this test to complete this for a full formal diagnostic. Patient was discharged in stable condition from this portion of the stress test.
== END 2023-11-19 09:53 | disposition home or self-care (01) ==
PROVIDERS: PCP Family Medicine; Visit Provider Family Medicine
DX: I49.3 Ventricular premature depolarization (principal); R07.9 Chest pain, unspecified
CPT/HCPCS: 78452; 93016; 93017; A9500; J2785

== ENCOUNTER 2024-01-08 16:46 | Outpatient (CLI) | payer MEDICARE, SELFPAY | END 2024-01-08 16:47 | disposition home or self-care (01) | LOC: AMB 01-09 13:38 | PROVIDERS: PCP Family Medicine; Visit Provider Emergency Medicine | DX: R41.82 Altered mental status, unspecified (principal) | CPT/HCPCS: A0425; A0433 ==

== ENCOUNTER 2024-01-08 18:06 | Emergency (ER) | payer MEDICARE, SELFPAY ==
[2024-01-08] VITALS (10 sets, daily range): BP systolic 84–103; BP diastolic 53–75; PULSE 99–120; RESP 12–15; TEMP 35.2–35.4; O2SAT 96–100
[2024-01-08] MEDS: KETAMINE HCL 100 MG/ML inj IVP (18:15)
--- NOTE | 2024-01-08 18:19 | XR_ITS ---
Patient: BREEZY TREJO Facility:?[facility] Patient ID:?[id number] Site Patient ID:?[id number]. Site :?1955 Study:?XRay-Chest PCXR-01/08/2024 7:00:26 PM Ordering Physician:MAHI Final Report: Indication: Unresponsive, intubated Technique: Single frontal view of the chest Comparison: Chest radiograph on September 09, 2023 Findings/impression : Endotracheal tube tip approximately 3.4 centimeters above the westley. Heart size is normal. Questionable bilateral hilar and mediastinal lymphadenopathy, overall decreased compared to prior exam. Faint increased opacification in the right lower lung zone, may represent an acute infectious/inflammatory process in the appropriate clinical context. There is no pleural effusion or pneumothorax. Atelectatic changes in the left lung base. No displaced fractures. Dictated by Hari Caban MD @ 01/08/2024 7:46:01 PM Signed by:?Hari Caban MD @01/08/2024 7:46:01 PM (Electronic Signature)
--- NOTE | 2024-01-08 18:19 | CT_ITS ---
Patient: BREEZY TREJO Facility:?[facility] Patient ID:?[id number] Site Patient ID:?[id number]. Site :?1955 Study:?CT-Head W/O-01/08/2024 6:38:42 PM Ordering Physician:MAHI Final Report: Indication: AMS Technique: CT of the head without contrast. Coronal and sagittal reformats. Bone and soft tissue windows. Comparison: No prior studies available for comparison at this institution. Findings: No acute intracranial hemorrhage or extra-axial collection. No evidence of acute cortical infarction. No mass effect or midline shift. Normal cerebral volume. The ventricles are normal in size, shape and contour. There is normal santos and white matter differentiation. Partially empty sella. The orbital contents are normal. No calvarial fractures. No lytic or sclerotic osseous lesions within the calvarium or skull base. Scalp and other imaged soft tissue structures are normal. Mastoid air cells are clear. Paranasal sinuses are well aerated. Endotracheal tube noted. Moderate opacification of the nasal cavity. Secretions in the left maxillary sinus. Moderate opacification of the left mastoid air cells. Impression: 1. No evidence of acute intracranial abnormality. 2. Endotracheal tube is noted. 3. Moderate left mastoid effusion. 4. Moderate opacification of the nasal cavities. Secretions in left maxillary sinus may represent acute sinusitis. Please note that all CT scans at this facility use dose modulation, iterative reconstruction, and/or weight-based dosing when appropriate to reduce radiation dose to as low as reasonably achievable. Dictated by Easton Cole MD @ 01/08/2024 6:50:19 PM Signed by:?Easton Cole MD @01/08/2024 6:50:19 PM (Electronic Signature)
[2024-01-08 18:30] LABS: Basophils Absolute Auto 0.02 K/uL (0.00-0.30); Basophils Percent Auto 0.2 % (0.0-3.0); Eosinophils Absolute Auto 0.05 K/uL (0.00-0.50); Eosinophils Percent Auto 0.6 % (0.0-7.0); Immature Granulocytes Abs Auto 0.13 K/uL (0.00-0.30); Immature Granulocytes Pct Auto 1.6 %; Lymphocytes Percent Auto 52.7 % (20-44); Mean Corpuscular HGB Conc 32 gm/dL (32-36); Mean Corpuscular Hemoglobin 31 pg (26-34); Mean Corpuscular Volume 98 fL (80-100); Monocytes Percent Auto 6.9 % (0.0-11.0); Platelet Count* 138 K/uL (140-440); Slide Review Reflex No; White Blood Count* 8.26 K/uL (4.50-11.00)
[2024-01-08] MEDS: 0.9 % SODIUM CHLORIDE 1000 ml 1,000 ML IV (18:30)
[2024-01-08 18:31] LABS: Appearance Urine Clear (Clear); Bilirubin Urine Negative (Negative); Blood Urine Trace-intact (Negative); Color Urine Yellow (Yellow); Glucose Urine Trace (Negative); Ketones Urine 1+ (Negative); Leukocyte Esterase Urine Negative (Negative); Nitrite Urine Negative (Negative); Protein Urine 3+ (Negative); Specific Gravity Urine >= 1.030 (1.000-1.030); Urobilinogen Urine 0.2 (0.2-1.0)
[2024-01-08 18:33] LABS: Troponin, Point-of-Care* 0.01 ng/ml (0.01-0.04)
[2024-01-08 18:38] LABS: Chloride* 100 mmol/L (96-114)
[2024-01-08 18:39] LABS: Albumin* 4.1 g/dL (3.3-5.0); Potassium* 3.3 mmol/L (3.6-5.1); Sodium* 138 mmol/L (135-149)
[2024-01-08 18:41] LABS: Bilirubin Total* 1.8 mg/dL (0.1-1.5); Creatinine* 0.7 mg/dL (0.5-1.5); Estimated Glomerular Filt Rate 95 ml/min
[2024-01-08 18:42] LABS: Alanine Aminotransferase* 25 U/L (4-35); Alkaline Phosphatase* 61 U/L (40-150); Anion Gap 10 mEq/L (7-15); Aspartate Amino Transferase* 30 U/L (12-35); Blood Urea Nitrogen* 16 mg/dL (7-30); Carbon Dioxide* 28 mmol/L (20-32); Glucose* 206 mg/dL (60-115); Total Protein* 6.4 g/dL (6.0-8.3)
[2024-01-08 18:43] LABS: Calcium* 9.1 mg/dL (8.4-10.6)
[2024-01-08] MEDS: cefTRIAXone 2 GM in 0.9 % SODIUM CHLORIDE Mini-bag 100 ML IVPB (18:45)
--- NOTE | 2024-01-08 18:50 | ED_ITS ---
HPI - General Adult General Date Seen: 01/08/24 Chief complaint: Altered Mental Status Stated complaint: ams Time Seen by Provider: 01/08/24 18:18 History of Present Illness HPI narrative: 68-year-old female brought into the ER today by EMS as a critical patient. She has been intubated in the field and is currently sedated and paralyzed. History is limited by patient critical illness, unresponsiveness History from her , who arrived shortly after the patient is that she has history of CLL. She had some problem with her immune system a couple of months ago. She was apparently very ill and ultimately had a lung biopsy done at [facility] that showed pneumonia. That was treated and she was recovering. Since then she has also had trouble with a viral infection in her right eye. 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 She sees an marketing proposal coordinator at [facility] for that and is on eyedrops and chronic prednisone. She has generally been back to her usual state of health recently. 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 notes that yesterday she was complaining of a headache. She also seemed fatigued and run down. This morning she had ongoing headache she was also nauseous and he think she probably threw up at least once. He does not know what she vomited. He does not know she had diarrhea. She was complaining of abdominal pain as well. After lunch she told her go lay down and take a rest. He came to check on her later this afternoon he found her on the floor of the bathroom. She was awake but confused, she did seem to understand he was saying and her words were not making sense. He called 911. Paramedics report that they found the patient sitting up but confused. Initial blood pressure was elevated. Blood sugar was 245. She did not have any focal deficits other than dilated right pupil (which is apparently chronic). She had significant deterioration in her mental status so they intubated her in the field. She was intubated at about 535. She received etomidate and rocuronium. Since receiving the paralytic and meds her blood pressures come down. Most recently it was ?low?, unclear exactly how low it was. She had also received some Versed and some ketamine for post intubation sedation. She was placed on the vent. She has been oxygenating well. Lung sounds were clear and equal. No wheezing. Upon arrival here to the ER she is on a ventilator. She has no spontaneous respiratory effort. She is not moving or responding to painful stimuli. GCS is 3. Patient unable to provide any history. Related Data Home Medications Medication Instructions Recorded Confirmed aspirin 81 mg tablet,delayed 81 mg PO DAILY 04/26/22 10/24/23 release albuterol sulfate 2.5 mg/3 mL 2.5 mg inhalation Q4H PRN 11/19/22 10/24/23 (0.083 %) solution for nebulization ascorbic acid (vitamin C) 500 mg 500 mg PO DAILY 01/23/23 10/24/23 tablet fexofenadine 180 mg tablet 180 mg PO DAILY 01/23/23 10/24/23 (Rosangela Allergy) atorvastatin 40 mg tablet 40 mg PO HS 09/09/23 10/24/23 lisinopril 40 mg tablet 20 mg PO DAILY 09/09/23 10/24/23 metoprolol succinate 100 mg 100 mg PO DAILY 09/09/23 10/24/23 tablet,extended release 24 hr Previous Rx's Medication Instructions Recorded albuterol sulfate 90 mcg/actuation 2 puff inhalation Q4H PRN 09/05/22 aerosol inhaler shortness of breath or wheezing #25.5 grams nitroglycerin 0.4 mg sublingual 0.4 mg sublingual Q5-15M PRN chest 06/10/23 tablet pain #30 tabs tobramycin 0.3 % eye drops 2 drp ophthalmic (eye) QID #5 mL 10/19/23 Allergies Allergy/AdvReac Type Severity Reaction Status Date / Time No Known Drug Allergies Allergy Verified 10/24/23 08:04 [facility] Medical History (Updated 01/08/24 @ 18:50 by Curt Roach MD) History of nuclear stress test (11/19/23) ?Z92.89 - Personal history of other medical treatment (ICD-10) Environmental allergies ?Z91.09 - Other allergy status, other than to drugs and biological substances (ICD-10) Hypercalcemia (08/30/23) ?E83.52 - Hypercalcemia (ICD-10) Respiratory failure ?J96.90 - Respiratory failure, unspecified, unspecified whether with hypoxia or hypercapnia (ICD-10) Dyslipidemia ?E78.5 - Hyperlipidemia, unspecified (ICD-10) Microalbuminuria due to type 2 diabetes mellitus ?E11.29 - Type 2 diabetes mellitus with other diabetic kidney complication (ICD-10) ?R80.9 - Proteinuria, unspecified (ICD-10) Lymphoma, small lymphocytic (2018) ?C83.00 - Small cell B-cell lymphoma, unspecified site (ICD-10) Type 2 diabetes mellitus ?E11.9 - Type 2 diabetes mellitus without complications (ICD-10) Chronic obstructive pulmonary disease (06/2020) ?J44.9 - Chronic obstructive pulmonary disease, unspecified (ICD-10) Pulmonary infiltrates ?R91.8 - Other nonspecific abnormal finding of lung field (ICD-10) Polypharmacy ?Z79.899 - Other mcfp (current) drug therapy (ICD-10) Diarrhea ?R19.7 - Diarrhea, unspecified (ICD-10) Bullous pemphigoid (~12/2022) ?L12.0 - Bullous pemphigoid (ICD-10) Splenomegaly (07/2022) ?R16.1 - Splenomegaly, not elsewhere classified (ICD-10) Elevated liver transaminase level ?R74.01 - Elevation of levels of liver transaminase levels (ICD-10) Ventricular bigeminy (2017) ?I49.8 - Other specified cardiac arrhythmias (ICD-10) History of bone density study (03/2023) ?Z92.89 - Personal history of other medical treatment (ICD-10) Vitamin D deficiency ?E55.9 - Vitamin D deficiency, unspecified (ICD-10) No retinopathy on exam (03/2021) ?Z01.00 - Encounter for examination of eyes and vision without abnormal findings (ICD-10) Hypertension ?I10 - Essential (primary) hypertension (ICD-10) History of myocardial infarction (11/21/15) ?I25.2 - Old myocardial infarction (ICD-10) History of malignant neoplasm of skin ?Z85.828 - Personal history of other malignant neoplasm of skin (ICD-10) Frequent ventricular premature beats ?I49.3 - Ventricular premature depolarization (ICD-10) Coronary artery disease (2000) ?I25.10 - Atherosclerotic heart disease of makah coronary artery without angina pectoris (ICD-10) Surgical History (Reviewed 10/19/23 @ 09:27 by Patience J Irons-Dieterle, WIRE FRAME LAMPSHADE MAKER, SUGAR REPROCESS OPERATOR HEAD) History of bronchoscopy (08/2023) ?Z98.890 - Other specified postprocedural states (ICD-10) History of four vessel coronary artery bypass graft (2000) ?Z95.1 - Presence of aortocoronary bypass graft (ICD-10) History of coronary artery stent placement (11/21/15) ?Z95.5 - Presence of coronary angioplasty implant and graft (ICD-10) Family History Father Stroke, Onset Age: 70 Prostate cancer Mother Diabetes Myocardial infarction, Onset Age: 65 Daughter Stroke, Onset Age: 36 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: , 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, 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 SMOKER: Tobacco abuse- 10/day, 32 pack years~ resolved 01/16 Does not exercise- active in garden and yard Social drinker- 2/week Past problems: Non-smoker- quit 2000, hx 30 pack years What is your current living situation?: I presently have a place to live Problems where you live: no known problems Problems where you live details: NA In the past 12 months, utilities in danger of being shut off: no In past 12 months, lack of transportation kept you from medical appts, meetings, work, or getting things needed for daily living: no In the past 12 mos, have been you worried that your food would run out before you had money to buy more?: never true In the past 12 mos, the food you bought just didn't last and you didn't have money to buy more?: never true Highest level of school completed/degree received: 12th grade, no diploma Smoking Status: Former smoker What tobacco products do you use: cigarettes Smoking quit date/years: <= 15 years ago Do you use any of these nicotine containing products: None Second hand tobacco smoke exposure: No How often do you have a drink containing alcohol: never How often do you have six or more drinks on one occasion: Never AUDIT-C Alcohol total score: 0 Non-prescribed substance use: denies use Caffeine: No How often does anyone, including family, friends and others, physically hurt you : never How often does anyone, including family, friends and others, insult or talk down to you: never How often does anyone, including family, friends and others, threaten you with harm: never How often does anyone, including family, friends and others, scream or curse at you: never Little interest or pleasure in doing things: several days Feeling down, depressed, or hopeless: not at all service: No Exam Narrative: Exam Narrative: Primary Survey: A- intubated with a 7 0 ET tube. 22 cm at the teeth. Airway seems to be patent. End-tidal CO2 is 25. B- on the ventilator Lung sounds clear and equal. Rate 15. Tidal volume 470. Oxygen saturation 100%. She is receiving 100% FiO2 from paramedics. C- no active bleeding. Blood pressure 96/50. Unable to palpate DP or radial pulses but we are able to get carotid pulses.. Symmetric pulses and cap refill in 4 extremities. D- unresponsive. GCS 3. Unable to assess for focal deficits. She does have a dilated right pupil. Left pupil minimally responsive. Constitutional: Appears well-developed and has somewhat heavyset. She is not cachectic. HENT: Head: Atraumatic. No depressed skull fracture, Raccoon Eyes, Underwood's sign, or hemotympanum. Face normal. Nose: Nose normal. Mouth/Throat: Oral mucosa is clear but dry. no trismus. Unable to visualize pharynx due to ET tube Eyes: Conjunctivae normal. Right pupil about 6 mm, left pupil about 3 mm. Gaze straight head and conjugate. No obvious nystagmus or gaze deviation. Neck: Normal range of motion. Neck supple. No tracheal deviation present. Cardiovascular: Normal rate, regular rhythm. No gallop. No friction rub. No m urmur heard. Symmetric carotid. Unable to palpate radial or DP pulses Pulmonary/Chest: On ventilator. Rate 15. No stridor. No wheezes. No rales. No rhonchi . No tenderness. Abdominal: Soft. Bowel sounds normal. No distension. No mass. No obvious tenderness or distention Musculoskeletal: RUE: Normal range of motion. No tenderness. No deformity LUE: Normal range of motion. No tenderness. No deformity RLE: Normal range of motion. No edema. No tenderness. No deformity LLE: Normal range of motion. No edema. No tenderness. No deformity Neurological: Unresponsive. GCS 3. No response to painful stimuli bilaterally in the upper and lower extremities. No visible seizure activity or subtle tremor Skin: Skin is warm and dry. No rash noted. No pallor. Normal capillary refill. Psychiatric: limited Const: Vital Signs, click to edit/add: Vital Signs - 24 hr 01/08/24 18:10 01/08/24 18:14 01/08/24 18:15 Temperature 95.7 F L 95.4 F L Pulse Rate [Pulse Oximeter] 120 H 120 H 120 H Respiratory Rate 15 12 15 Blood Pressure [Le ft Upper Arm] 97/69 97/69 103/75 Pulse Oximetry 100 96 97 Oxygen Delivery Me thod Intubated Room Air Intubated Fraction of Inspir ed Oxygen 100 100 01/08/24 18:35 01/08/24 18:35 01/08/24 20:09 Temperature Pulse Rate [Pulse Oximeter] 105 H Respiratory Rate 15 Blood Pressure [Le ft Upper Arm] 89/53 L 84/58 L Pulse Oximetry 100 100 Oxygen Delivery Me thod Intubated Fraction of Inspir ed Oxygen 100 01/08/24 20:11 01/08/24 20:28 01/08/24 20:30 Temperature Pulse Rate [Pulse Oximeter] 99 Respiratory Rate 15 Blood Pressure [Le ft Upper Arm] 98/62 89/59 L Pulse Oximetry 100 99 Oxygen Delivery Me thod Intubated Intubated Fraction of Inspir ed Oxygen 70 70 01/08/24 20:31 01/08/24 20:32 Temperature Pulse Rate [Pulse Oximeter] 106 H 103 H Respiratory Rate Blood Pressure [Le ft Upper Arm] Pulse Oximetry 99 100 Oxygen Delivery Me thod Intubated Intubated Fraction of Inspir ed Oxygen Course Vital Signs Vital signs: Initial Vital Signs Temperature 95.7 F L 01/08/24 18:10 Temperature Source Temporal Artery Scan 01/08/24 18:10 Pulse Rate 120 H 01/08/24 18:10 Pulse Rhythm Regular 01/08/24 18:10 Pulse Strength 3+ Normal 01/08/24 18:10 Respiratory Rate 15 01/08/24 18:10 Blood Pressure 97/69 01/08/24 18:10 Blood Pressure Mean 78 01/08/24 18:10 Blood Pressure Position Supine 01/08/24 18:10 Pulse Oximetry 100 01/08/24 18:10 Oxygen Delivery Method Intubated 01/08/24 18:10 Fraction of Inspired Oxygen 100 01/08/24 18:10 Vital Signs Temperature 95.7 F L 01/08/24 18:10 Pulse Rate 120 H 01/08/24 18:10 Respiratory Rate 15 01/08/24 18:10 Blood Pressure 97/69 01/08/24 18:10 Pulse Oximetry 100 01/08/24 18:10 Oxygen Delivery Method Intubated 01/08/24 18:10 Fraction of Inspired Oxygen 100 01/08/24 18:10 Temperature 95.4 F L 01/08/24 18:14 Pulse Rate 103 H 01/08/24 20:32 Respiratory Rate 15 01/08/24 20:30 Blood Pressure 89/59 L 01/08/24 20:30 Pulse Oximetry 100 01/08/24 20:32 Oxygen Delivery Method Intubated 01/08/24 20:32 Fraction of Inspired Oxygen 70 01/08/24 20:30 Medications Administered Medications: Discontinued Medications Generic Name Dose Route Start Last Admin Trade Name Freq PRN Reason Stop Dose Admin Hydrocortisone Sodium Succinate 100 mg 01/08/24 19:08 01/08/24 19:12 Hydrocortisone Sod Succinate 50 Mg/Ml Inj IVP 01/08/24 19:09 100 mg ONCE ONE Administration Ceftriaxone Sodium 2 gm/ 100 mls @ 200 mls/hr 01/08/24 18:40 01/08/24 20:35 Sodium Chloride IVPB 01/08/24 18:41 Infused ONCE ONE Infusion Sodium Chloride 1,000 mls @ 1,000 mls/hr 01/08/24 18:41 01/08/24 18:30 0.9 % Sodium Chloride 1000 Ml IV 01/08/24 19:40 1,000 mls/hr .Q1H LUÍS Administration Azithromycin 500 mg/ Sodium 255 mls @ 255 mls/hr 01/08/24 18:49 01/08/24 20:37 Chloride IVPB 01/08/24 18:50 Not Given ONCE ONE Vancomycin HCl 2,000 mg/ 520 mls @ 260 mls/hr 01/08/24 20:38 01/08/24 20:30 Sodium Chloride IVPB 01/08/24 20:39 260 mls/hr ONCE ONE Administration Protocol Ketamine HCl 100 mg 01/08/24 18:18 01/08/24 18:15 Ketamine Hcl 100 Mg/Ml Inj IVP 01/08/24 18:19 100 mg ONCE ONE Administration Medical Decision Making [facility] Narrative Medical decision making narrative: 68-year-old female presents unresponsive, intubated in the field by EMS after being found confused at home. 1. Neuro-patient does have a GCS of 3. She is not over breathing the vent. She is not responding to painful stimuli. Initially we were concerned that she might be still chemically paralyzed after her RSI but she was rechecked here in the ER. It is now approaching 2 hours after her last dose of rocuronium and she still unresponsive. Serial neuro exams demonstrate GCS of 3. Blood sugar was normal. No observed seizure activity. She does not have any eye deviation, nystagmus, or any tremor to suggest status epilepticus. Nonconvulsive status remains on the differential. On IV sedative infusion. We placed her on ketamine for sedation with her ventilator to make sure that she was comfortable NK she was still chemically paralyzed. We wanted to avoid propofol due to low blood pressure. Blood pressure was initially about 90/50. Initial exam showed a dilated right pupil which raise concern for possible herniation or intracranial hemorrhage. We sent her for stat noncontrast head CT which is negative by my read. Subsequent radiology read confirms no bleed. No report from her of any suicide attempt or intentional med overdose. I do not see any opiates on her med list. Concern here would be for possible meningitis or encephalitis. She is started on empiric antibiotics (rocephin, vanco). steroids (hydrocortisone) 2. ID: low temp. no fever. no leukocytosis, but may be on chronic steroids and immunosuppressed. VL 2.0. BPs are in low normal range and presented with sinus tachycardia. Has received 1.5 L of saline so far in blood pressures come up to about 100/60 and heart rate is down to about 90. Initial bedside ultrasound does show a flat IV suggesting hypovolemia. Will continue IV fluids. At this point she is not requiring vasopressors. 3. Endocrine: Steroids for possible adrenal insufficiency since she may be on chronic prednisone. Blood sugar 240. 4. Cardiac. EKG shows sinus tachycardia. No definite ischemia. Initial troponin negative. 5. Pulmonary. Possible right lower lobe infiltrate on my read of her chest x- ray. Antibiotics for pneumonia. At this point she is actually oxygenating well on the ventilator. Tidal volume is about 470. This would be appropriate for lung protective ventilation. 6. Gi. OG placed for gastric decompression. No bloody output. 7. Transfer/disposition. This patient arrived in critical condition after being intubated by EMS. We had called for air transport given the critical report reason we received pre-hospital. When the patient arrived her blood pressure was low, bordering on hypotensive/shock. She was unresponsive. We sent the patient for stat noncontrast head CT and then made efforts to get her transferred expeditiously to ICU at [facility]. There was substantial delay in receiving an ICU bed and they requested additional workup here in the ER which led to delay in transport. Ultimately this patient was transferred by air EMS to the ICU at [place]. Lab Data Labs: Lab Results 01/08/24 01/08/24 01/08/24 Range/Units 18:17 18:19 18:22 WBC 8.26 (4.50-11.00) K/uL RBC 4.80 (4.00-5.20) m/uL Hgb 15.0 (12.0-16.0) gm/dL Hct 47.0 (33.0-51.0) % MCV 98 (80-100) fL MCH 31 (26-34) pg MCHC 32 (32-36) gm/dL RDW Coeff of Shabana 19.0 H (11.5-15.5) % Plt Count 138 L (140-440) K/uL Neut % (Auto) 38.0 L (42.0-72.0) % Lymph % (Auto) 52.7 H (20-44) % [place] % (Auto) 6.9 (0.0-11.0) % Eos % (Auto) 0.6 (0.0-7.0) % Baso % (Auto) 0.2 (0.0-3.0) % Neut # (Auto) 3.10 (1.7-7.0) K/uL Lymph # (Auto) 4.40 H (0.90-2.90) K/uL [place] # (Auto) 0.60 (0.00-0.90) K/UL Eos # (Auto) 0.05 (0.00-0.50) K/uL Baso # (Auto) 0.02 (0.00-0.30) K/uL Abs Immat Gran (auto) 0.13 (0.00-0.30) K/uL Imm/Tot Granulo (auto) 1.6 % INR 0.98 (0.91-1.10) VBG pH (7.32-7.43) VBG pCO2 (40-50) mmHG VBG pO2 (25-47) mmHG VBG HCO3 (21-28) mmol/L Sodium 138 (135-149) mmol/L Potassium 3.3 L (3.6-5.1) mmol/L Chloride 100 (96-114) mmol/L Carbon Dioxide 28 (20-32) mmol/L Anion Gap 10 (7-15) mEq/L BUN 16 (7-30) mg/dL Creatinine 0.7 (0.5-1.5) mg/dL Estimated GFR 95 ml/min Glucose 206 H (60-115) mg/dL Lactate 2.0 H (0.5-1.9) mmol/L Calcium 9.1 (8.4-10.6) mg/dL Total Bilirubin 1.8 H (0.1-1.5) mg/dL AST 30 (12-35) U/L ALT 25 (4-35) U/L Alkaline Phosphatase 61 (40-150) U/L Troponin I 0.02 (0.01-0.04) ng/mL Total Protein 6.4 (6.0-8.3) g/dL Albumin 4.1 (3.3-5.0) g/dL Urine Color Yellow (Yellow) Urine Appearance Clear (Clear) Urine pH 7.0 (5.0-8.5) Ur Specific [place] >= 1.030 (1.000-1.030) Urine Protein 3+ A (Negative) Urine Glucose (UA) Trace A (Negative) Urine Ketones 1+ A (Negative) Urine Blood Trace-intact A (Negative) Urine Nitrite Negative (Negative) Urine Bilirubin Negative (Negative) Urine Urobilinogen 0.2 (0.2-1.0) Ur Leukocyte Esterase Negative (Negative) Urine RBC 0-2 (0-2) Urine WBC 0-2 (0-5) Ur Squamous Epith Cells None (None-Few) Urine Bacteria None (None) SARS-CoV-2 (PCR) (Negative) Influenza Type A (PCR) (Negative) Influenza Type B (PCR) (Negative) RSV (PCR) (Negative) POC Troponin I (0.01-0.04) ng/ml 01/08/24 01/08/24 01/08/24 Range/Units 18:32 18:42 18:46 WBC (4.50-11.00) K/uL RBC (4.00-5.20) m/uL Hgb (12.0-16.0) gm/dL Hct (33.0-51.0) % MCV (80-100) fL MCH (26-34) pg MCHC (32-36) gm/dL RDW Coeff of Shabana (11.5-15.5) % Plt Count (140-440) K/uL Neut % (Auto) (42.0-72.0) % Lymph % (Auto) (20-44) % [place] % (Auto) (0.0-11.0) % Eos % (Auto) (0.0-7.0) % Baso % (Auto) (0.0-3.0) % Neut # (Auto) (1.7-7.0) K/uL Lymph # (Auto) (0.90-2.90) K/uL [place] # (Auto) (0.00-0.90) K/UL Eos # (Auto) (0.00-0.50) K/uL Baso # (Auto) (0.00-0.30) K/uL Abs Immat Gran (auto) (0.00-0.30) K/uL Imm/Tot Granulo (auto) % INR (0.91-1.10) VBG pH 7.31 L (7.32-7.43) VBG pCO2 58 H (40-50) mmHG VBG pO2 30.1 (25-47) mmHG VBG HCO3 30 H (21-28) mmol/L Sodium (135-149) mmol/L Potassium (3.6-5.1) mmol/L Chloride (96-114) mmol/L Carbon Dioxide (20-32) mmol/L Anion Gap (7-15) mEq/L BUN (7-30) mg/dL Creatinine (0.5-1.5) mg/dL Estimated GFR ml/min Glucose (60-115) mg/dL Lactate (0.5-1.9) mmol/L Calcium (8.4-10.6) mg/dL Total Bilirubin (0.1-1.5) mg/dL AST (12-35) U/L ALT (4-35) U/L Alkaline Phosphatase (40-150) U/L Troponin I (0.01-0.04) ng/mL Total Protein (6.0-8.3) g/dL Albumin (3.3-5.0) g/dL Urine Color (Yellow) Urine Appearance (Clear) Urine pH (5.0-8.5) Ur Specific [place] (1.000-1.030) Urine Protein (Negative) Urine Glucose (UA) (Negative) Urine Ketones (Negative) Urine Blood (Negative) Urine Nitrite (Negative) Urine Bilirubin (Negative) Urine Urobilinogen (0.2-1.0) Ur Leukocyte Esterase (Negative) Urine RBC (0-2) Urine WBC (0-5) Ur Squamous Epith Cells (None-Few) Urine Bacteria (None) SARS-CoV-2 (PCR) Negative SARS-CoV-2 (Negative) Influenza Type A (PCR) Negative PCR FLU A (Negative) Influenza Type B (PCR) Negative PCR FLU B (Negative) RSV (PCR) Negative PCR RSV (Negative) POC Troponin I 0.01 (0.01-0.04) ng/ml Imaging Data Chest x-ray: Attestation: I have reviewed the pertinent imaging results. My impression: ET tube in place and the trachea about 4 cm above the [place], roughly. I think she has a right lower lobe or right middle lobe infiltrate. No definite pneumothorax. Previous sternotomy. CT scan - head: Attestation: I have reviewed the pertinent imaging results. Radiologist's impression: Impression: 1. No evidence of acute intracranial abnormality. 2. Endotracheal tube is noted. 3. Moderate left mastoid effusion. 4. Moderate opacification of the nasal cavities. Secretions in left maxillary sinus may represent acute sinusitis. CT angio head and neck: Attestation: I have reviewed the pertinent imaging results. Radiologist's impression: CTA Head and Neck: Mild narrowing of the origins of the left subclavian artery, left internal carotid artery, and right internal carotid artery. Diffuse narrowing of the right anterior cerebral artery. Mild narrowing of the distal intracranial segment of the right vertebral artery. origin of the left posterior cerebral artery, a normal variant. No large vessel occlusions, evidence of dissection, or intracranial aneurysm identified. ECG Data Attestation: I personally reviewed and interpreted this ECG as follows: Critical Care Time Critical Care Time Total Critical Care Time in Minutes: 60 Discharge Plan Discharge Clinical Impression: Unresponsive, Acute alteration in mental status, RLL pneumonia Patient Disposition: Xfer Other Prescriptions: No Action aspirin 81 mg tablet,delayed release (DR/EC) 81 mg PO DAILY ascorbic acid (vitamin C) 500 mg tablet 500 mg PO DAILY albuterol sulfate 2.5 mg /3 mL (0.083 %) solution for nebulization 2.5 mg inhalation Q4H PRN fexofenadine [Rosangela Allergy] 180 mg tablet 180 mg PO DAILY tobramycin 0.3 % drops 2 drp ophthalmic (eye) QID Qty: 5 0RF atorvastatin 40 mg tablet 40 mg PO HS metoprolol succinate 100 mg tablet extended release 24 hr 100 mg PO DAILY lisinopril 40 mg tablet 20 mg PO DAILY albuterol sulfate 90 mcg/actuation HFA aerosol inhaler 2 puff inhalation Q4H PRN (Reason: shortness of breath or wheezing) Qty: 25.5 1RF nitroglycerin 0.4 mg tablet, sublingual 0.4 mg sublingual Q5-15M PRN (Reason: chest pain) Qty: 30 0RF Rx Instructions: PRN CHEST PAIN Stand Alone Forms: [facility] Info Instructions
[2024-01-08 18:54] LABS: Troponin I* 0.02 ng/mL (0.01-0.04)
[2024-01-08 18:59] LABS: RBC Urine 0-2 (0-2); WBC Urine 0-2 (0-5)
[2024-01-08 19:05] LABS: INR 0.98 (0.91-1.10); Prothrombin Time 13.6 Seconds
[2024-01-08 19:12] LABS: HCO3 VBG 30 mmol/L (21-28); PCO2 VBG 58 mmHG (40-50); PO2 VBG 30.1 mmHG (25-47); pH VBG 7.31 (7.32-7.43)
[2024-01-08] MEDS: HYDROCORTISONE SOD SUCCINATE 50 MG/ML inj 100 MG IVP (19:12)
--- NOTE | 2024-01-08 19:31 | CT_ITS ---
Patient: BREEZY TREJO Facility:?[facility] Patient ID:?[id number] Site Patient ID:?[id number] Site :?1955 Study:?CT-Head CTA HEAD AND NECK-01/08/2024 7:56:52 PM Ordering Physician:MAHI Final Report: INDICATION: Acute stroke, altered mental status, unresponsive. TECHNIQUE: CTA head with contrast bolus tracking, 3D angiographic rendering using maximum intensity projection (MIP) and images permanently archived. FINDINGS: There is extensive scattered intracranial atherosclerosis. There is no large vessel occlusion. No aneurysm is identified. IMPRESSION: Extensive scattered intracranial atherosclerosis; no large vessel occlusion. Please note that all CT scans at this facility use dose modulation, iterative reconstruction, and/or weight-based dosing when appropriate to reduce radiation dose to as low as reasonably achievable. Dictated by: Pb Allison MD @ 01/09/2024 08:54:58 Signed by:?Pb Allison MD @01/09/2024 8:54:58 AM (Electronic Signature)
--- NOTE | 2024-01-08 19:31 | CT_ITS ---
Patient: BREEZY TREJO Facility:?[facility] Patient ID:?[id number] Site Patient ID:?[id number]. Site :?1955 Study:?CT-Neck Angio CTA HEAD AND NECK-01/08/2024 7:56:20 PM Ordering Physician:MAHI Final Report: INDICATION: Acute stroke, altered mental status, unresponsive. TECHNIQUE: CTA neck with contrast bolus tracking, 3D angiographic rendering using maximum intensity projection (MIP) and images permanently archived. FINDINGS: There is carotid atherosclerosis bilaterally. There is no significant carotid artery stenosis or dissection. There is no significant vertebral artery stenosis or dissection. The soft tissues are within normal limits. The cervical spine is in normal alignment. Degenerative changes are incidentally noted in the cervical spine. IMPRESSION: Carotid atherosclerosis without significant stenosis. Please note that all CT scans at this facility use dose modulation, iterative reconstruction, and/or weight-based dosing when appropriate to reduce radiation dose to as low as reasonably achievable. Dictated by: Pb Allison MD @ 01/09/2024 08:56:54 Signed by:?Pb Allison MD @01/09/2024 8:56:54 AM (Electronic Signature)
[2024-01-08 19:39] LABS: PCR FLU A Negative PCR FLU A (Negative); PCR FLU B Negative PCR FLU B (Negative); PCR RSV Negative PCR RSV (Negative); SARS PCR* Negative SARS-CoV-2 (Negative)
--- NOTE | 2024-01-08 21:03 | PC.NURSE ---
report given to Ricci SMILEY at [facility].
--- NOTE | 2024-01-08 21:08 | PC.NURSE ---
updated on patient disposition and room number, patients stated understanding and has no further questions.
== END 2024-01-08 21:13 | disposition other institution (70) ==
PROVIDERS: Emergency Provider Emergency Medicine; PCP Family Medicine
DX: R41.82 Altered mental status, unspecified (principal); J18.9 Pneumonia, unspecified organism
CPT/HCPCS: 36415; 70450; 70496; 70498; 71045; 80053; 81001; 82803; 83605; 84484; 85025; 85610; 87040; 87631; 93005; 94761; 96365; 96366; 96375; 99285; 99291; J0696; J1720; J3370; J3490; J7030; Q9967

== ENCOUNTER 2024-01-20 07:50 | Outpatient (CLI) | payer MEDICARE, SELFPAY | END 2024-01-20 07:51 | disposition home or self-care (01) | LOC: NFLDREF 01-22 07:54 | PROVIDERS: PCP Family Medicine; Referring Provider Family Medicine; Visit Provider Family Medicine | DX: E78.5 Hyperlipidemia, unspecified (principal); I10 Essential (primary) hypertension; E11.9 Type 2 diabetes mellitus without complications; E83.42 Hypomagnesemia | CPT/HCPCS: 80053; 80061; 82043; 82570; 82607; 84443 ==

== ENCOUNTER 2024-01-27 13:00 | Outpatient (RCR) | payer MEDICARE, SELFPAY ==
--- NOTE | 2023-08-30 12:09 | ONC.NURNOTE ---
Critical WBC called to [facility] but noted multiple labs elevated so administrative underwriter noted patient currenty in [facility] clinic being worked up for abdominal pain. Criticals called to Dr. Bashir-[facility]
[2023-09-12 12:43] LABS: Albumin 3.33 g/dL (3.75-5.01); Alpha 1 Globulin 0.52 g/dL (0.19-0.46); Alpha 2 Globulin 0.85 g/dL (0.48-1.05); Total Protein, Serum 5.7 g/dL (6.3-8.2)
[2024-01-27 14:27] LABS: Lactate Dehydrogenase* 297 U/L (120-246)
[2024-01-29 17:13] LABS: Immunoglobulin A 79 mg/dL (68-408); Immunoglobulin G 423 mg/dL (768-1632); Immunoglobulin M 81 mg/dL (35-263)
== END 2024-03-07 23:59 | disposition home or self-care (01) ==
LOC: CCIC 13:00
PROVIDERS: PCP Family Medicine; Referring Provider Family Medicine; Visit Provider Internal Medicine Hematology & Oncology
DX: C83.00 Small cell B-cell lymphoma, unspecified site (principal); R16.1 Splenomegaly, not elsewhere classified; E83.52 Hypercalcemia; L12.0 Bullous pemphigoid
CPT/HCPCS: 36415; 80053; 82784; 83615; 84165; 85025; 99211; 99213; 99214; 99215; G0463

== ENCOUNTER 2024-03-05 06:55 | Inpatient (IN) | payer MEDICARE, SELFPAY ==
[2024-03-05] VITALS (25 sets, daily range): BP systolic 120–180; BP diastolic 67–122; PULSE 70–124; RESP 18–28; TEMP 36.3–36.9; O2SAT 83–94; BMI 29.4; BMI 30.3
--- NOTE | 2024-03-05 07:06 | ED.GENADULT ---
HPI - General Adult General Chief complaint: Shortness of Breath/Dyspnea Stated complaint: Difficulty breathing Time Seen by Provider: 03/05/24 07:06 History of Present Illness HPI narrative: Pt aox4, ABCs intact. Pt arrives for worsening SOB that started last night before she went to bed. Worsening overnight. Home albuterol nebs and inhalers provided her with no relief. Fever yesterday, cough, and achy . 68-year-old with increasing shortness of breath beginning yesterday evening. Has been getting worse. She does have the albuterol nebs and inhalers which she has used. Last albuterol nebulization was 3-4 hours prior to arrival. Underlying history of COPD. She has felt feverish. Two days ago did measure temperature to 100.7. She has been coughing. I was informed that arrived with 83% oxygen saturation. She is uncertain as to what her baseline is but not this low she says. Reviewing records would indicate 95-100%. Underlying history also of cardiovascular disease with quadruple bypass and more recently of a stent. In October of this last year passed a stress test. History of pneumonia. Related Data Home Medications Medication Instructions Recorded Confirmed aspirin 81 mg tablet,delayed 81 mg PO DAILY 04/26/22 03/05/24 release fexofenadine 180 mg tablet 180 mg PO DAILY 01/23/23 03/05/24 (Rosangela Allergy) ascorbic acid (vitamin C) 500 mg 500 mg PO QDAY 01/17/24 03/05/24 chewable tablet difluprednate 0.05 % eye drops 1 drp ophthalmic (eye) BID 01/17/24 03/05/24 glycerin 0.5 % eye drops (Biotrue 1 drp ophthalmic (eye) TID 01/17/24 01/27/24 Hydration Boost) magnesium oxide 400 mg (241.3 mg 400 mg PO QDAY 01/17/24 03/05/24 magnesium) tablet prednisone 10 mg tablet 15 mg PO QDAY 01/17/24 01/27/24 valacyclovir 1 gram tablet 1,000 mg PO TID 01/17/24 01/27/24 Previous Rx's Medication Instructions Recorded nitroglycerin 0.4 mg sublingual 0.4 mg sublingual Q5-15M PRN chest 06/10/23 tablet pain #30 tabs albuterol sulfate 2.5 mg/3 mL 2.5 mg (3 mL) inhalation Q4H PRN 01/17/24 (0.083 %) solution for nebulization bronchospasm #90 mL albuterol sulfate 90 mcg/actuation 2 puff inhalation Q4H PRN 01/17/24 aerosol inhaler shortness of breath or wheezing #25.5 grams amlodipine 5 mg tablet 5 mg PO QDAY #90 tabs 01/23/24 atorvastatin 40 mg tablet 40 mg PO HS #90 tabs 01/23/24 lisinopril 20 mg tablet 20 mg PO QDAY #90 tabs 01/23/24 metformin 1,000 mg tablet 1,000 mg PO QDAY #90 tabs 01/23/24 metoprolol succinate 100 mg 100 mg PO DAILY #90 tabs 01/23/24 tablet,extended release 24 hr umeclidinium 62.5 mcg-vilanterol 1 inh inhalation ONCE #180 ea 02/05/24 25 mcg/actuation powdr for inhalation (Anoro Ellipta) Allergies Allergy/AdvReac Type Severity Reaction Status Date / Time No Known Drug Allergies Allergy Verified 03/05/24 07:04 Review of Systems Status of ROS: Reports: 6 or more systems reviewed and unremarkable except as noted in History and below [facility] Medical History Hypertension ?I10 - Essential (primary) hypertension (ICD-10) Hypomagnesemia ?E83.42 - Hypomagnesemia (ICD-10) Weight loss, abnormal ?R63.4 - Abnormal weight loss (ICD-10) Elevated LFTs ?R79.89 - Other specified abnormal findings of blood chemistry (ICD-10) Acute interstitial pneumonitis (09/11/23) ?J84.114 - Acute interstitial pneumonitis (ICD-10) RLL pneumonia ?J18.9 - Pneumonia, unspecified organism (ICD-10) History of nuclear stress test (11/19/23) ?Z92.89 - Personal history of other medical treatment (ICD-10) Environmental allergies ?Z91.09 - Other allergy status, other than to drugs and biological substances (ICD-10) Hypercalcemia (08/30/23) ?E83.52 - Hypercalcemia (ICD-10) Respiratory failure ?J96.90 - Respiratory failure, unspecified, unspecified whether with hypoxia or hypercapnia (ICD-10) Dyslipidemia ?E78.5 - Hyperlipidemia, unspecified (ICD-10) Microalbuminuria due to type 2 diabetes mellitus ?E11.29 - Type 2 diabetes mellitus with other diabetic kidney complication (ICD-10) ?R80.9 - Proteinuria, unspecified (ICD-10) Lymphoma, small lymphocytic (2018) ?C83.00 - Small cell B-cell lymphoma, unspecified site (ICD-10) Type 2 diabetes mellitus ?E11.9 - Type 2 diabetes mellitus without complications (ICD-10) Chronic obstructive pulmonary disease (06/2020) ?J44.9 - Chronic obstructive pulmonary disease, unspecified (ICD-10) Pulmonary infiltrates ?R91.8 - Other nonspecific abnormal finding of lung field (ICD-10) Polypharmacy ?Z79.899 - Other shelter (current) drug therapy (ICD-10) Diarrhea ?R19.7 - Diarrhea, unspecified (ICD-10) Bullous pemphigoid (~12/2022) ?L12.0 - Bullous pemphigoid (ICD-10) Splenomegaly (07/2022) ?R16.1 - Splenomegaly, not elsewhere classified (ICD-10) Elevated liver transaminase level ?R74.01 - Elevation of levels of liver transaminase levels (ICD-10) Ventricular bigeminy (2017) ?I49.8 - Other specified cardiac arrhythmias (ICD-10) History of bone density study (03/2023) ?Z92.89 - Personal history of other medical treatment (ICD-10) Vitamin D deficiency ?E55.9 - Vitamin D deficiency, unspecified (ICD-10) No retinopathy on exam (03/2021) ?Z01.00 - Encounter for examination of eyes and vision without abnormal findings (ICD-10) History of myocardial infarction (11/21/15) ?I25.2 - Old myocardial infarction (ICD-10) History of malignant neoplasm of skin ?Z85.828 - Personal history of other malignant neoplasm of skin (ICD-10) Frequent ventricular premature beats ?I49.3 - Ventricular premature depolarization (ICD-10) Coronary artery disease (2000) ?I25.10 - Atherosclerotic heart disease of [place] coronary artery without angina pectoris (ICD-10) Surgical History History of bronchoscopy (08/2023) ?Z98.890 - Other specified postprocedural states (ICD-10) History of four vessel coronary artery bypass graft (2000) ?Z95.1 - Presence of aortocoronary bypass graft (ICD-10) History of coronary artery stent placement (11/21/15) ?Z95.5 - Presence of coronary angioplasty implant and graft (ICD-10) Family History Father Stroke, Onset Age: 70 Prostate cancer Mother Diabetes Myocardial infarction, Onset Age: 65 Daughter Stroke, Onset Age: 36 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: , 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, 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 SMOKER: Tobacco abuse- 10/day, 32 pack years~ resolved 01/16 Does not exercise- active in garden and yard Social drinker- 2/week Past problems: Non-smoker- quit 2000, hx 30 pack years What is your current living situation?: I presently have a place to live Problems where you live: no known problems Problems where you live details: NA In the past 12 months, utilities in danger of being shut off: no In past 12 months, lack of transportation kept you from medical appts, meetings, work, or getting things needed for daily living: no In the past 12 mos, have been you worried that your food would run out before you had money to buy more?: never true In the past 12 mos, the food you bought just didn't last and you didn't have money to buy more?: never true Highest level of school completed/degree received: 12th grade, no diploma Smoking Status: Former smoker What tobacco products do you use: cigarettes Smoking quit date/years: <= 15 years ago Do you use any of these nicotine containing products: None Second hand tobacco smoke exposure: No How often do you have a drink containing alcohol: never How often do you have six or more drinks on one occasion: Never AUDIT-C Alcohol total score: 0 Non-prescribed substance use: denies use Caffeine: No How often does anyone, including family, friends and others, physically hurt you: never How often does anyone, including family, friends and others, insult or talk down to you: never How often does anyone, including family, friends and others, threaten you with harm: never How often does anyone, including family, friends and others, scream or curse at you: never Little interest or pleasure in doing things: not at all Feeling down, depressed, or hopeless: several days service: No Exam Narrative: Exam Narrative: Oxygen is in place via nasal cannula at the time of this exam. She does not look to be terribly uncomfortable. Is calm. Appears well perfused. Extremities are without edema. Lungs with breath sounds throughout. I do not hear any wheeze. There is no stridor. Heart is tachycardic. Abdomen is soft and nontender. Voice sounds congested occasional coarse cough On repeat evaluation I notice more pursed lip breathing. Right pupil is noticeably more dilated than the left. There is some injection of the conjunctiva as well. A little watering. She acknowledges current herpetic infection and this dilatation is not abnormal I believe partly related to medications. Const: Vital Signs, click to edit/add: Vital Signs - 24 hr 03/05/24 07:04 Temperature 97.4 F L Pulse Rate [Left P ulse Oximeter] 124 H Respiratory Rate 20 Blood Pressure [Le ft Upper Arm] 167/114 H Pulse Oximetry 83 L Oxygen Delivery Me thod Room Air Documenting provider has reviewed patient's vital signs: yes Course Vital Signs Vital signs: Initial Vital Signs Temperature 97.4 F L 03/05/24 07:04 Temperature Source Temporal Artery Scan 03/05/24 07:04 Pulse Rate 124 H 03/05/24 07:04 Respiratory Rate 20 03/05/24 07:04 Blood Pressure 167/114 H 03/05/24 07:04 Blood Pressure Mean 131 H 03/05/24 07:04 Blood Pressure Position Sitting 03/05/24 07:04 Pulse Oximetry 83 L 03/05/24 07:04 Oxygen Delivery Method Room Air 03/05/24 07:04 Vital Signs Temperature 97.4 F L 03/05/24 07:04 Pulse Rate 124 H 03/05/24 07:04 Respiratory Rate 20 03/05/24 07:04 Blood Pressure 167/114 H 03/05/24 07:04 Pulse Oximetry 83 L 03/05/24 07:04 Oxygen Delivery Method Room Air 03/05/24 07:04 Temperature 97.4 F L 03/05/24 07:04 Pulse Rate 124 H 03/05/24 07:04 Respiratory Rate 20 03/05/24 07:04 Blood Pressure 167/114 H 03/05/24 07:04 Pulse Oximetry 83 L 03/05/24 07:04 Oxygen Delivery Method Room Air 03/05/24 07:04 Medications Administered Medications: Generic Name Dose Route Start Last Admin Trade Name Freq PRN Reason Stop Dose Admin Sodium Chloride 1,000 mls @ 1,000 mls/hr 03/05/24 08:08 03/05/24 08:14 0.9 % Sodium Chloride 1000 Ml IV 03/05/24 09:07 1,000 mls/hr .Q1H ONE Administration Discontinued Medications Generic Name Dose Route Start Last Admin Trade Name Freq PRN Reason Stop Dose Admin Albuterol/Ipratropium 1 neb 03/05/24 07:10 03/05/24 07:40 Iprat-Albut 0.5-2.5 Mg/3 Ml Neb IH 03/05/24 07:11 1 neb ONCE ONE Administration Methylprednisolone Sodium Succinate 80 mg 03/05/24 07:10 03/05/24 07:41 Methylprednisolone Sod Succ 40 Mg/Ml IVP 03/05/24 07:11 80 mg ONCE ONE Administration Medical Decision Making MDM Narrative Medical decision making narrative: Initial EKG does show some, about [address] depression in leads 2 and 3 and slightly downgoing in V4 and V5. General baseline irritability. Will need to evaluate for pneumonia. I would presume some degree of COPD exacerbation here as well. Unsure at this point if this EKG represents a strain pattern or primary ischemic cardiovascular event; I would suspect the former.. Pulmonary embolus is in differential as well. Initiating on DuoNeb and given a dose of Solu-Medrol here One-view chest x-ray reviewed by me looks to show lower right pulmonary infiltrate along with postoperative changes White count is little elevated at 12.9. Radiology over-read as below. Study:?XRay-Chest 1 VIEW-03/05/2024 7:51:08 AM Ordering Physician:BRONWYN Final Report: Indication: Dyspnea. Technique: One view(s) of the chest. Comparison: 01/08/2024 and 09/09/2023. Findings: Status post CABG. Dense atherosclerotic aortic calcifications. Bilateral hilar enlargement in keeping with lymphadenopathy seen on prior CT. The lungs are well inflated. There is increased airspace opacities in the right lower lung. No pleural effusion. No pneumothorax. Unchanged bones and soft tissues. Impression: 1. Increased right lower lung airspace opacification concerning for pneumonia. 2. Persistent hilar enlargement in keeping with known lymphadenopathy. I discussed this case with our hospitalist anticipating admission. Will be handing off at change of shift. Request has been for a CTA of the chest. Pending this also at this time. Point of care troponin is negative. Initiating [facility] Medical Records Medical records reviewed: Yes I reviewed the patient's medical records Lab Data Lab results reviewed: Yes I reviewed the patient's lab results Labs: Lab Results 03/05/24 03/05/24 03/05/24 Range/Units 07:10 07:11 08:02 WBC 12.89 H (4.50-11.00) K/uL RBC 4.54 (4.00-5.20) m/uL Hgb 14.8 (12.0-16.0) gm/dL Hct 46.7 (33.0-51.0) % MCV 103 H (80-100) fL MCH 33 (26-34) pg MCHC 32 (32-36) gm/dL RDW Coeff of Shabana 15.6 H (11.5-15.5) % Plt Count 189 (140-440) K/uL Neut % (Auto) 38.0 L (42.0-72.0) % Lymph % (Auto) 51.6 H (20-44) % [place] % (Auto) 7.3 (0.0-11.0) % Eos % (Auto) 0.6 (0.0-7.0) % Baso % (Auto) 0.2 (0.0-3.0) % Neut # (Auto) 4.90 (1.7-7.0) K/uL Lymph # (Auto) 6.70 H (0.90-2.90) K/uL [place] # (Auto) 0.90 (0.00-0.90) K/UL Eos # (Auto) 0.10 (0.00-0.50) K/uL Baso # (Auto) 0.00 (0.00-0.30) K/uL Abs Immat Gran (auto) 0.30 (0.00-0.30) K/uL Imm/Tot Granulo (auto) 2.3 % Diff Slide Review Acceptable Review (Acceptable) D-Dimer Quant (PE/DVT) 0.70 H (0.00-0.50) ug/ml VBG pH 7.285 L (7.32-7.43) VBG pCO2 55 H (40-50) mmHG VBG pO2 < 30.1 (25-47) mmHG VBG HCO3 26 (21-28) mmol/L Sodium 142 (135-149) mmol/L Potassium 3.1 L (3.6-5.1) mmol/L Chloride 106 (96-114) mmol/L Carbon Dioxide 27 (20-32) mmol/L Anion Gap 9 (7-15) mEq/L BUN 23 (7-30) mg/dL Creatinine 0.7 (0.5-1.5) mg/dL Estimated Creat Clear 51.81 Estimated GFR 95 ml/min Glucose 157 H (60-115) mg/dL Calcium 9.5 (8.4-10.6) mg/dL Magnesium 1.6 (1.5-2.6) mg/dL Troponin I < 0.01 L (0.01-0.04) ng/mL C-Reactive Protein 4.0 H (0.5-1.0) mg/dL NT-Pro-B Natriuret Pep 1100 pg/mL SARS-CoV-2 (PCR) Negative SARS-CoV-2 (Negative) Influenza Type A (PCR) Negative PCR FLU A (Negative) Influenza Type B (PCR) Negative PCR FLU B (Negative) RSV (PCR) Negative PCR RSV (Negative) Lab Acknowledgement Test Added POC Troponin I 0.00 L (0.01-0.04) ng/ml Critical Care Time Critical Care Time Critical Care Time: Yes Attestation: The patient required my highest level preparedness to intervene emergently and I personally spent this critical care time directly and personally managing the patient. This critical care time included: Obtaining a history; Examining the patient; Pulse oximetry; Ordering and reviewing of studies; Arranging urgent treatment with development of a management plan; Evaluation of patients response to treatment; Frequent reassessment discussions with other providers. This critical care time was performed to assess and manage the high probability of imminent life-threatening deterioration that could result in multiorgan failure. It was exclusive of separate billable procedures and treating other patients and teaching time. Total Critical Care Time in Minutes: 45 Discharge Plan Discharge Prescriptions: No Action ascorbic acid (vitamin C) 500 mg tablet,chewable 500 mg PO QDAY valacyclovir 1 gram tablet 1,000 mg PO TID prednisone 10 mg tablet 15 mg PO QDAY magnesium oxide 400 mg (241.3 mg magnesium) tablet 400 mg PO QDAY difluprednate 0.05 % drops 1 drp ophthalmic (eye) BID Rx Instructions: start on Day 15 of therapy Biotrue Hydration Boost 0.5 % drops 1 drp ophthalmic (eye) TID albuterol sulfate 90 mcg/actuation HFA aerosol inhaler 2 puff inhalation Q4H PRN (Reason: shortness of breath or wheezing) Qty: 25.5 1RF albuterol sulfate 2.5 mg /3 mL (0.083 %) solution for nebulization 2.5 mg inhalation Q4H PRN (Reason: bronchospasm) Qty: 90 0RF aspirin 81 mg tablet,delayed release (DR/EC) 81 mg PO DAILY fexofenadine [Rosangela Allergy] 180 mg tablet 180 mg PO DAILY metformin 1,000 mg tablet 1,000 mg PO QDAY Qty: 90 3RF metoprolol succinate 100 mg tablet extended release 24 hr 100 mg PO DAILY Qty: 90 3RF amlodipine 5 mg tablet 5 mg PO QDAY Qty: 90 3RF lisinopril 20 mg tablet 20 mg PO QDAY Qty: 90 3RF atorvastatin 40 mg tablet 40 mg PO HS Qty: 90 3RF nitroglycerin 0.4 mg tablet, sublingual 0.4 mg sublingual Q5-15M PRN (Reason: chest pain) Qty: 30 0RF Rx Instructions: PRN CHEST PAIN Anoro Ellipta 62.5-25 mcg/actuation blister with device 1 inh inhalation ONCE Qty: 180 12RF Follow Up/Referrals: Katerine Bashir MD [Primary Care Provider] -
--- NOTE | 2024-03-05 07:11 | XR_ITS ---
Patient: BREEZY TREJO Facility:?[facility] Patient ID:?[id number] Site Patient ID:?[id number] Site :?1955 Study:?XRay-Chest 1 VIEW-03/05/2024 7:51:08 AM Ordering Physician:BRONWYN Final Report: Indication: Dyspnea. Technique: One view(s) of the chest. Comparison: 01/08/2024 and 09/09/2023. Findings: Status post CABG. Dense atherosclerotic aortic calcifications. Bilateral hilar enlargement in keeping with lymphadenopathy seen on prior CT. The lungs are well inflated. There is increased airspace opacities in the right lower lung. No pleural effusion. No pneumothorax. Unchanged bones and soft tissues. Impression: 1. Increased right lower lung airspace opacification concerning for pneumonia. 2. Persistent hilar enlargement in keeping with known lymphadenopathy. Dictated by Glendy Andre MD @ 03/05/2024 7:59:19 AM Signed by:?Glendy Andre MD @03/05/2024 7:59:19 AM (Electronic Signature)
[2024-03-05 07:25] LABS: HCO3 VBG 26 mmol/L (21-28); PCO2 VBG 55 mmHG (40-50); PO2 VBG < 30.1 mmHG (25-47); pH VBG 7.285 (7.32-7.43)
[2024-03-05 07:35] LABS: Basophils Percent Auto 0.2 % (0.0-3.0); Eosinophils Percent Auto 0.6 % (0.0-7.0); Hematocrit 46.7 % (33.0-51.0); Hemoglobin* 14.8 gm/dL (12.0-16.0); Immature Granulocytes Pct Auto 2.3 %; Lymphocytes Percent Auto 51.6 % (20-44); Mean Corpuscular HGB Conc 32 gm/dL (32-36); Mean Corpuscular Hemoglobin 33 pg (26-34); Mean Corpuscular Volume 103 fL (80-100); Monocytes Percent Auto 7.3 % (0.0-11.0); Platelet Count* 189 K/uL (140-440); RDW Coefficient of Variation % 15.6 % (11.5-15.5); Red Blood Count 4.54 m/uL (4.00-5.20); White Blood Count* 12.89 K/uL (4.50-11.00)
[2024-03-05] MEDS: IPRAT-ALBUT 0.5-2.5 MG/3 ML NEB 1 NEB IH ×2 (07:40→20:59)
[2024-03-05] MEDS: METHYLPREDNISOLONE SOD SUCC 40 MG/ML 80 MG IVP (07:41)
[2024-03-05 07:49] LABS: Chloride* 106 mmol/L (96-114); Sodium* 142 mmol/L (135-149)
[2024-03-05 07:50] LABS: Potassium* 3.1 mmol/L (3.6-5.1)
[2024-03-05 07:52] LABS: Creatinine* 0.7 mg/dL (0.5-1.5); Est. Creatinine Clearance* 51.81; Estimated Glomerular Filt Rate 95 ml/min
[2024-03-05 07:53] LABS: Anion Gap 9 mEq/L (7-15); Blood Urea Nitrogen* 23 mg/dL (7-30); Calcium* 9.5 mg/dL (8.4-10.6); Carbon Dioxide* 27 mmol/L (20-32); Glucose* 157 mg/dL (60-115); Magnesium* 1.6 mg/dL (1.5-2.6)
[2024-03-05 07:54] LABS: Slide Review Reflex Yes
[2024-03-05 07:55] LABS: Slide Review Acceptable Review (Acceptable)
--- OUTSIDE RECORDS SUMMARY | 2024-03-05 08:04 | XMS_ITS | Encounter Summary ---
Author Name Unknown Organization [facility] Address [address] [place] [address] Care Team Providers Care Tube Test Technician Name Role Phone Elsewhere, Pcp Primary Care Provider Unavailabl e Encounter Details Date Type Department Care Team (Late st Contact Info) Description 02/20/2024 12:10 AM CDT Ancillary Procedure Department of Ophthalmology Social History Tobacco Use Types Packs/Day Years Used Date Smoking Tobacco: Light Smoker Cigarettes 0.5 44 Started: 02/26/1980 Smokeless Tobacco: Never Comments:On again off again Alcohol Use Standard Drinks/Week Comments Yes 0 (1 standard drink = 0.6 oz pur e alcohol) [facility] Utilities Answer Date Recorded In the past 12 months has [employer] electric, gas, oil, or water company threatened [...] Never 06/27/2020 How often do you attend islam or shinto serv ices? Never 06/27/2020 Do you belong to any clubs o r organizations such as islam groups, unions, fraternal or athletic groups, or [...] medical care, and heating? Somewhat hard 06/27/2020 [facility] - Occupational Stress Questionnaire Answer Date [...] your living situation today? [facility] 11/05/2023 Education Answer Date [...] Care Team (Late st Contact Info) Description 03/06/2024 7:30 AM CDT Ancillary Procedure Department of Ophthalmology in [place], [place] [address] [place] [phone] Kenya Garza M.D. [address] [place] [phone] 03/06/2024 8:00 AM CDT Ancillary Procedure Department of Ophthalmology in [address] [phone] Kenya Garza M.D. [address] [place] [phone] 03/06/2024 9:00 AM CDT Ancillary Procedure Department of Ophthalmology in [address] [phone] Kenya Garza M.D. [address] [place] [phone] 03/06/2024 12:00 PM CDT Office Visit Department of Ophthalmology in [place], [place] [address] [place] [phone] Kenya Garza M.D. [address] [place] [phone] documented as of this encounter Procedures Procedure Name Priority Date/Time Associated Diagnosis Comments OPHTHALMOLOGY IMAGE EXAM Routine 02/20/2024 12:10 AM CDT documented in this encounter Results * Eyes Spectralis OCT-Ophthalmology Image Exam (02/20/2024 12:10 AM CDT) Narrative [facility] - 02/20/2024 12:05 PM CDT This order has been created and auto-finalized to support the import of images acquired without order. The clinical documentation to support these images can be found on the encounter that produced images. Provider Not In System IMG NON RAD IMAGI NG PROCEDURES [facility] NA documented in this encounter Visit Diagnoses Not on filedocumented in this encounter Care Teams Tube Test Technician Relationship Specialty Start Date End Date Elsewhere, Pcp PCP - General Internal Medicine 05/29/19 documented as of this encounter
--- OUTSIDE RECORDS SUMMARY | 2024-03-05 08:04 | XMS_ITS | Clinical Summary ---
Author Name Unknown Organization [facility] Address [address] [place] [address] Care Team Providers Care Protection Officer Name Role Phone Elsewhere, Pcp Primary Care Provider Unavailabl e Source Comments Patient records contain information from all sites at [facility]. For routine questions regarding patient records, call [phone] during business hours, M-F 8:00 AM - 5:00 PM Central Time. Record requests for emergency care only can be directed to [phone] at any time.[facility] Allergies Active Allergy Reactions Criticality Noted Date Comments Aller Xt-[place] Blisters,Itching,Rash High 06/21/2020 Medications Medication Sig Dispensed Refills Start Date End Date Status atorvastatin (LIPITOR) 40 mg tablet Take 40 mg by mouth daily. 09/26/2016 Active lisinopril (PRINIVIL,ZESTRIL) 40 mg tablet Take 20 mg by mouth daily. 09/29/2017 Active aspirin (ADULT LOW DOSE ASPIRIN) [address] tablet Take 81 mg by mouth daily. 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 90 tablet 3 03/04/2020 Active albuterol inhaler 06/22/2020 Active ipratropium-albute roL (DUONEB) 0.5-2.5 mg/3 mL nebulizer solution INHALE ONE VIAL VIA NEBULIZER EVERY 4 HOURS FOR 3 DAYS AND THEN CAN DECREASE TO NEEDED. 06/09/2020 Active umeclidinium-vilan teroL (ANORO ELLIPTA) 62.5-25 mcg/actuation inhalerIndications :Chronic Obstructive Pulmonary Disease (HCC) Inhale 1 puff once daily. 1 each 11 07/06/2020 Active prednisoLONE acetate (PRED FORTE) 1 % ophthalmic suspension Administer 1 drop into the right eye every hour while awake. 11/04/2023 Active difluprednate (DUREZOL) 0.05 % ophthalmic emulsion Administer 1 drop into the right eye 4 (four) times a day. Stop prednisolone when you start difluprednate 5 mL 3 11/11/2023 Active valACYclovir (VALTREX) 1000 mg tablet Take 1 tablet (1,000 mg total) by mouth 3 (three) times a day. 270 tablet 1 01/23/2024 Active predniSONE (DELTASONE) 5 mg tablet Take 2 tablets (10 mg total) by mouth daily. Take the entire dose in the AM with food 60 tablet 1 01/23/2024 Active Hospital, Clinic, or Other Facility Administered Medication Ordered Dose Route Frequency Start Date End Date Status ganciclovir intraocular injection 2,000 mcg (CYTOVENE)Indications:Uveitis 2000 mcg vtre As needed 11/05/2023 Active Active [...] Encounters Date Type Department Care Team Description 02/25/2024 4:30 PM CDT Telemedicine Department of Neurology in [place], [place] [address] [place] [address] Piter Baez M.D. Posterior Reversible Encephalopathy Syndrome (Primary Dx) 02/20/2024 3:05 PM CDT - 02/20/2024 11:59 PM CDT Hospital Encounter Department of Radiology, [facility] in [place], [place] [address] [place] [address] Piter Baez M.D. Posterior Reversible Encephalopathy Syndrome Discharge Disposition: Home or Self Care 02/20/2024 1:00 PM CDT Comprehensive Visit Department of Neurology in [place], [place] [address] [place] [phone] Piter Baez M.D. Posterior Reversible Encephalopathy Syndrome 02/20/2024 11:15 AM CDT Office Visit Department of Ophthalmology in [place], [place] [address] [place] [address] Kenya Garza M.D. Panuveitis Right (Primary Dx); Necrosis Retinal Acute Right 02/20/2024 10:00 AM CDT Ancillary Procedure Department of Ophthalmology in [place], [place] [address] [place] [phone] Kenya Garza M.D. Panuveitis Right; Necrosis Retinal Acute Right 02/20/2024 9:50 AM CDT Ancillary Procedure Department of Ophthalmology in [place], [place] [address] [place] [phone] Kenya Garza M.D. Panuveitis Right; Necrosis Retinal Acute Right 02/20/2024 12:10 AM CDT Ancillary Procedure Department of Ophthalmology 02/20/2024 12:05 AM CDT Ancillary Procedure Department of Ophthalmology 02/20/2024 Ancillary Procedure Department of Ophthalmology 01/31/2024 Clinical Communication Department of Neurology in [place], [place] [address] [place] [phone] Piter Baez M.D. Pre-visit Testing Orders 01/23/2024 12:00 PM CDT Office Visit Department of Ophthalmology in [place], [place] [address] [place] [phone] Kenya Garza M.D. Panuveitis Right (Primary Dx); Necrosis Retinal Acute Right 01/20/[address] [address] Katerine Bashir M.D. Posterior Reversible Encephalopathy Syndrome (Primary Dx) 01/10/2024 Clinical Communication Department of Ophthalmology in [place], [place] [address] [place] [phone] Kneya Garza M.D. Outside hospitalization and medications 01/01/2024 12:45 PM EDUCATIONAL/DEVELOPMENT ASSISTANT Office Visit Department of Ophthalmology in [place], [place] [address] [place] [address] Kenya Garza M.D. Necrosis Retinal Acute Right (Primary Dx); Panuveitis Right 01/01/2024 12:30 PM EDUCATIONAL/DEVELOPMENT ASSISTANT Ancillary Procedure Department of Ophthalmology in [place], [place] [address] [place] [address] Kenya Garza M.D. Panuveitis Right 01/01/2024 Ancillary Procedure Department of Ophthalmology 12/18/2023 Refill Department of Ophthalmology in [place], [place] [address] [place] [address] Kenya Garza M.D. Med Change Request 12/17/2023 3:00 PM EDUCATIONAL/DEVELOPMENT ASSISTANT Ancillary Procedure Department of Ophthalmology in [place], [place] [address] [place] [address] Kenya Garza M.D. Panuveitis Right 12/17/2023 1:30 PM EDUCATIONAL/DEVELOPMENT ASSISTANT Ancillary Procedure Department of Ophthalmology 12/17/2023 1:30 PM EDUCATIONAL/DEVELOPMENT ASSISTANT Office Visit Department of Ophthalmology in [place], [place] [address] [place] [address] Kenya Garza M.D. Panuveitis Right (Primary Dx) from Last 3 Months Family History Medical History Relation Name Comments Lymphoma Brother Kannan Thibodeaux 2018 Prostate cancer Father Rosshora 2000 Stroke Father Morelia Coronary artery disease Mother Afia Thibodeaux Not sure of dates no bypass Diabetes Mother Afia Thibodeaux Heart attack Mother Afia Thibodeaux Relation Name Status Comments Brothhilda Thibodeaux Father Morelia Mother Afia Thibodeaux Social History Tobacco Use Types Packs/Day Years Used Date Smoking Tobacco: Light Smoker Cigarettes 0.5 44 Started: 02/26/1980 Smokeless Tobacco: Never Comments:On again off again Alcohol Use Standard Drinks/Week Comments Yes 0 (1 standard drink = 0.6 oz pur e alcohol) [facility] Utilities Answer Date Recorded In the past 12 months has [employer], gas, oil, or water company threatened to [...] Never 06/27/2020 How often do you attend mandaeism or bahai serv ices? Never 06/27/2020 Do you belong to any clubs o r organizations such as mandaeism groups, unions, fraternal or athletic groups, or [...] and heating? Somewhat hard 06/27/2020 [facility] Occupat ional [facility] - Occupational Stress [...] living situation today? I have a [facility] place to live 11/05/2023 Education [...] CDT Inhaled Oxygen Concentration - - Weight 84 kg (185 lb 3 oz) 02/20/2024 12:43 PM C DT Height 166.6 cm (5' 5.59) 02/20/2024 12:43 PM C DT Body Mass Index 30.26 02/20/2024 12:43 PM CDT Plan of Treatment Upcoming Encounters Date Type Department Care Team (Late st Contact Info) Description 03/06/2024 7:30 AM CDT Ancillary Procedure Department of Ophthalmology in [place], [place] [address] [place] [address] Kenya Garza M.D. [address] [place] [phone] 03/06/2024 8:00 AM CDT Ancillary Procedure Department of Ophthalmology in [place], [place] [address] [place] [phone] Kenya Garza M.D. [address] [place] [phone] 03/06/2024 9:00 AM CDT Ancillary Procedure Department of Ophthalmology in [place], [place] [address] [place] [phone] Kenya Garza M.D. [address] [place] [phone] 03/06/2024 12:00 PM CDT Office Visit Department of Ophthalmology in [place], [place] [address] [place] [phone] Kenya Garza M.D. [address] [place] [phone] Health Maintenance Due Date Last Done Comments Bone Density Scan (Osteoporo sis Screen) 1957 CT Colonography 1957 Colonoscopy 1957 FIT 1957 Hepatitis C Screening 1957 Lipid (Cholesterol) Screening 1957 Mammogram 1957 Office Visit for Blood Press ure Check / Re-check 1957 Tobacco Cessation counseling 1957 Lung Cancer Screening 03/31/2021 03/31/2020 COVID-19 Vaccine (2022- 4 season) 2023 07/18/2021, 02/14/2021, 01/24/2021 Depression Screening (Annual PHQ-2) 10/28/2023 Fall Risk Screen (Annual) 10/28/2023 Creatinine Level (Kidney Fun ction Test) 01/12/2025 01/13/2024, 01/12/2024, 01/11/2024, Additional history exists Sodium Level 01/12/2025 01/13/2024, 12/26, 01/11/2024, Additional history exists Potassium Level 01/13/2025 01/14/2024, 12/26, 01/12/2024, Additional history exists Cologuard 04/05/2025 04/05/2022 Colorectal Cancer Screening 04/05/2025 Fasting Glucose for Diabetes Screening 01/12/2027 01/13/2024, 01/12/2024, 01/11/2024, Additional history exists DTaP,Tdap,and Td Vaccines (3 - Td or Tdap) 06/24/2028 06/24/2018, 03/08/2009 Cervical Cancer Screening Discontinued 08/14/2019 Zoster Vaccines Completed 02/23/2022, 07/04/2021 Pneumococcal vaccine (65+ years) Completed 01/24/20, 06/24/2018 Influenza Vaccine Completed 07/23/2023, , 08/14/2019, Additional history exists Procedures Procedure Name Priority Date/Time Associated Diagnosis Comments MR BRAIN WITHOUT AND WITH IV CONTRAST RAD - Routine (most inpatients and all outpatients) 02/20/2024 4:08 PM CDT Posterior Reversible Encephalopathy Syndrome B SCAN - OD - RIGHT EYE Routine 02/20/2024 11:28 AM CDT Panuveitis Right Necrosis Retinal Acute Right OPHTHALMOLOGY IMAGE EXAM Routine 02/20/2024 12:10 AM CDT OPHTHALMOLOGY IMAGE EXAM Routine 02/20/2024 12:05 AM CDT OPHTHALMOLOGY IMAGE EXAM Routine 02/20/2024 12:00 AM CDT EXTI POTASSIUM, S/P Routine 01/14/2024 5 :15 AM CDT EXTI BASIC METABOLIC PANEL, S/P Routine 01/13/2024 5:00 AM CDT OUTSIDE MR NEURO Routine 01/09/2024 12:10 AM CDT OPTICAL COHERENCE TOMOGRAPHY - MACULA/RETINA - OU - BOTH EYES Routine 01/01/2024 12:34 PM EDUCATIONAL/DEVELOPMENT ASSISTANT Panuveitis Right OPHTHALMOLOGY IMAGE EXAM Routine 01/01/2024 12:00 AM EDUCATIONAL/DEVELOPMENT ASSISTANT AUTOMATED VF - INTERMEDIATE - OU - BOTH EYES Routine 12/17/2023 3:30 PM EDUCATIONAL/DEVELOPMENT ASSISTANT Panuveitis Right OPHTHALMOLOGY IMAGE EXAM Routine 12/17/2023 1:30 PM EDUCATIONAL/DEVELOPMENT ASSISTANT CT CHEST WITH IV CONTRAST RAD - Routine (most inpatients and all outpatients) 03/31/2020 8:50 AM CDT Nodule Pulmonary from Last 3 Months or Most Recently Relevant to Health Maintenance Results * MR Brain without and with IV Contrast (02/20/2024 4:08 PM CDT) Anatomical Region Laterality Modality Head, Brain, Neuroradiology RST [facility], Neuroradiology [facility], Neuroradiology FLA [facility] N/A Magnetic Resonance Impressions 02/21/2024 8:07 AM CDT No acute intracranial findings. Nothing for PRES. Narrative 02/21/2024 8:07 AM CDT EXAM: MR BRAIN WITHOUT AND WITH IV CONTRAST COMPARISON: No prior examinations. FINDINGS: Nothing for restricted diffusion to suggest acute infarction. No abnormal T2 signal abnormality. Mild generalized cerebral and cerebellar volume loss. No abnormal enhancement or intracranial mass. Trace mucosal thickening paranasal sinuses. Partially empty sella. Procedure Note Carter Chahal M.D. - 02/21/2024 EXAM: MR BRAIN WITHOUT AND WITH IV CONTRAST COMPARISON: No prior examinations. FINDINGS: Nothing for restricted diffusion to suggest acute infarction. Noabnormal T2 signal abnormality. Mild generalized cerebral and cerebellarvolume loss. No abnormal enhancement or intracranial mass. Trace mucosalthickening paranasal sinuses. Partially empty sella. IMPRESSION: No acute intracranial findings. Nothing for PRES. Piter D Sasha M.D. IMG MRI PROCEDURES * B-Scan Ultrasound - OD - Right Eye (02/20/2024 11:28 AM CDT) Narrative OPHTHALMOLGY NON-IMAGING ORDERS - 02/20/2024 2:13 PM CDT 02/20/2024 B-Scan Right Eye: dense vitreous opacities, probable posterior vitreous detachment, vitreous membranes possibly extending to disc, detachments vs opacities - cannot rule out choroidal detachment, thickened fundus appearance. BriannaK Kenya Garza M.D. OPHTH ULTRASOUND Performing Organization Address [facility] de Phone Number OPHTHALMOLGY NON-IMAGING ORDERS * Eyes Spectralis OCT-Ophthalmology Image Exam (02/20/2024 12:10 AM CDT) Only the most recent of5 resultswithin the time period is included. Narrative IIWY - 02/20/2024 12:05 PM CDT This order has been created and auto-finalized to support the import of images acquired without order. The clinical documentation to support these images can be found on the encounter that produced images. Provider Not In System IMG NON RAD IMAGI NG PROCEDURES Performing Organization Address [facility] de Phone Number IIMS NA * MR HEAD BRAIN WWO-Outside MR Neuro (01/09/2024 12:10 AM CDT) Narrative IIMS - 02/21/2024 4:19 PM CDT This order has been created and auto-finalized to support the import of outside images. If available, original interpretation can be found on the Media Tab in Chart Review, in Document Viewer, or as an image in QREADS. If a re-interpretation or overread is required please follow defined workflow. ?? Provider Not In System IMG MRI PROCEDURE S Performing Organization Address [facility] Co de Phone Number IIMS NA * Optical Coherence Tomography - Macula/Retina - OU - Both Eyes (01/01/2024 12:34 PM EDUCATIONAL/DEVELOPMENT ASSISTANT) CMT L Microns 247 um OPH THALMOLOGY IMAGING EXAM Narrative OPHTHALMOLOGY IMAGING EXAM - 01/01/2024 12:45 PM EDUCATIONAL/DEVELOPMENT ASSISTANT Right Eye Reliability was good. OCT device used was Spectralis . Scan locations included macula. Left Eye Reliability was good. OCT device used was Spectralis . Scan locations included macula. Central macular thickness 247 um. Notes CH RIGHT - irregular thickening is decreased vs 10/2023. Improved image quality. Decreased inner retinal wrinkling and choroidal undulations, decreased choroidal thickening. The outer retinal structures are ratty and there are two subretinal deposits just temporal to the fovea. No subretinal fluid, just a small amount of peripapillary intraretinal fluid. Posterior vitreous face is no longer visible - significantly decreased posterior vitreous deposits, decreased pre-retinal deposits as well. Vitreous still attached to the optic nerve. LEFT - overall normal macular thickness, intact foveal depression and retinal layers, no intra or subretinal fluid. Attached posterior hyaloid. Choroid is not thickened. Kenya Garza M.D. OPHTH TOMOGRAPHY Performing Organization Address [facility] Co de Phone Number OPHTHALMOLOGY IMAGING EXAM * Automated VF - Intermediate - OU - Both Eyes (12/17/2023 3:30 PM EDUCATIONAL/DEVELOPMENT ASSISTANT) [facility] OPHTHALMOLOGY IMAGING EXAM - 12/17/2023 6:34 PM EDUCATIONAL/DEVELOPMENT ASSISTANT Right Eye Automated visual field device used was other. Left Eye Automated visual field device used was other. Notes [facility] Binocular drivers test - both eyes - horizontal 120 degrees Kenya Garza M.D. OPHTH VISUAL FIELD Performing Organization Address [facility] Co de Phone Number OPHTHALMOLOGY IMAGING EXAM * CT Chest with IV Contrast (03/31/2020 8:50 AM CDT) Anatomical Region Laterality Modality Chest, Thoracic RST LOS, Tho racic ARZ LOS, Thoracic ARZ LOS, Thoracic FLA LOS N/A Computed Tomography 03/31/2020 11:0 4 AM CDT Impressions 03/31/2020 3:06 PM CDT 1. Small peripheral right upper lobe on prior CT has resolved. 2. Indeterminant but stable thoracic lymphadenopathy as well as lymphadenopathy within the visualized upper abdomen. Clinical correlation is necessary. Narrative 03/31/2020 3:06 PM CDT EXAM: CT CHEST WITH IV CONTRAST 3D/MIPS: 3D Post-Processing performed on a dependent workstation. COMPARISON: 08/14/2019. FINDINGS: Peripheral nodule within the right upper lobe on prior CT has resolved. Minimal biapical blebs and/or paraseptal emphysema. Stable small right basilar/lower lobe nodularity measuring 3 mm image 301 series 5, coronal image 38 series 6, sagittal image 97 series 7. Punctate peripheral left lower lobe nodule image 258 series 5. Calcified granuloma within the left lower lobe image 232 series 5. No new or enlarging pulmonary nodule. No evidence of consolidative pneumonia. Heart size within normal limits. No pleural or pericardial effusion. Bilateral axillary lymphadenopathy, mediastinal and hilar lymphadenopathy similar to previous. Lymphadenopathy within the visualized aneta hepatis also similar to previous. Midline sternotomy wires. No acute osseous abnormality. Procedure Note Prakash Beltran M.D. - 03/31/2020 EXAM: CT CHEST WITH IV CONTRAST 3D/MIPS: 3D Post-Processing performed on a dependent workstation. COMPARISON: 08/14/2019. FINDINGS: Peripheral nodule within the right upper lobe on prior CT has resolved. Minimal biapical blebs and/or paraseptal emphysema. Stable smallright basilar/lower lobe nodularity measuring 3 mm image 301 series 5, coronalimage 38 series 6, sagittal image 97 series 7. Punctate peripheral left lowerlobe nodule image 258 series 5. Calcified granuloma within the left lower lobeimage 232 series 5. No new or enlarging pulmonary nodule. No evidence ofconsolidative pneumonia. Heart size within normal limits. No pleural or pericardial effusion. Bilateral axillary lymphadenopathy, mediastinal and hilarlymphadenopathy similar to previous. Lymphadenopathy within the visualized aneta hepatisalso similar to previous. Midline sternotomy wires. No acute osseous abnormality. IMPRESSION: 1. Small peripheral right upper lobe on prior CT has resolved. 2. Indeterminant but stable thoracic lymphadenopathy as well aslymphadenopathy within the visualized upper abdomen. Clinical correlation is necessary. Emily HARO CT PROCEDURES from Last 3 Months or Most Recently Relevant to Health Maintenance Care Teams Protection Officer Relationship Specialty Start Date End Date Elsewhere, Pcp PCP - General Internal Medicine 05/29/19
--- OUTSIDE RECORDS SUMMARY | 2024-03-05 08:04 | XMS_ITS | Encounter Summary ---
Author Name Unknown Organization [facility] Address [address] [place] [address] Care Team Providers Care Beauty Operator Name Role Phone Elsewhere, Pcp Primary Care Provider Unavailabl e Reason for Visit * Outpatient (Routine) - Closed Specialty Diagnoses / Procedures Referred By Contmuriel t Referred To Contact Neurology Piter Baez M.D. [address] [place] [address] [facility] Referral ID Status Reason Start Date Expiration Date Visits Re quested Visits Authorized [id number] Closed 02/20/2024 08/21/2025 1 1 Encounter Details Date Type Department Care Team (Latest Contact Info) Description 02/25/2024 4:30 PM CDT Telemedicine Department of Neurology in [place], [place] [address] [place] [phone] Piter Baez M.D. [address] [place] [address] Posterior Reversible Encephalopathy Syndrome (Primary Dx) Social History Tobacco Use Types Packs/Day Years Used Date Smoking Tobacco: Light Smoker Cigarettes 0.5 44 Started: 02/26/1980 Smokeless Tobacco: Never Comments:On again off again Alcohol Use Standard Drinks/Week Comments Yes 0 (1 standard drink = 0.6 oz pur e alcohol) [facility] Utilities Answer Date Recorded In the [...] How often do you attend pentecostalism or caodaism serv ices? Never 06/27/2020 Do [...] care, and heating? Somewhat hard 06/27/2020 [facility] [place] of Occupat ional Health - Occupational Stress [...] your living situation today? I have a [facility] place to live 11/05/2023 Education Answer [...] as of this encounter Progress Notes * Piter Baez M.D. - 02/25/2024 4:30 PM CDT SUBJECTIVE CHIEF COMPLAINT / REASON FOR VISIT Alexandra Dixon is a 68 y.o. female who returns today for follow-up of 1. Posterior Reversible Encephalopathy Syndrome Consult conducted via real-time audio/video technology by Piter Baez M.D. in [facility] to the patient at home. RESULTS REVIEW AND INTERIM HISTORY We met back to review her new MRI from 02/20/2024 and compared it to her 01/09/2024 MRI that we subsequently received. I showed her both images. The 1st one indeed looks typical for PRES, with bilateral posterior FLAIR hyperintensities. The new one has completely normalized. Thus, it seems that PRES is the appropriate diagnosis. I have reviewed the problem list, allergies, medications, medical/surgical history, social history,and family history. ASSESSMENT / PLAN #1 Posterior Reversible Encephalopathy Syndrome I do not think she needs any follow-up neuro imaging. The reason she developed PRES is not entirelyclear to me from the information available. 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 She appears to have made a full neurologic recovery. I do not identify current risk factors that would make it likely to have another episode like this. If she should develop progressive posterior headaches associated with new visual symptoms in the left eye that could be from the visual cortex or any seizure activity, she should be promptly re-evaluated. PATIENT EDUCATION Ready to learn, no apparent learning barriers were identified; learning preferences include listening. Explained diagnosis and treatment plan; patient expressed understanding of the content. I have completed my evaluation and made my recommendations. The patient will follow up with their primary provider. However, should there be a change in the patient's status, I would be happy to review for consideration of a return appointment. Total time spent: 15 minutes, greater than 50% spent counseling and coordinating care. documented in this encounter Plan of Treatment Upcoming Encounters Date Type Department Care Team (Late st Contact Info) Description 03/06/2024 7:30 AM CDT Ancillary Procedure Department of Ophthalmology in [address] [phone] Kenya Garza M.D. [address] [place] [phone] 03/06/2024 8:00 AM CDT Ancillary Procedure Department of Ophthalmology in [address] [phone] Kenya Garza M.D. [address] [place] [phone] 03/06/2024 9:00 AM CDT Ancillary Procedure Department of Ophthalmology in [place], [place] [address] [place] [phone] Kenya Garza M.D. [address] [place] [phone] 03/06/2024 12:00 PM CDT Office Visit Department of Ophthalmology in [place], [place] [address] [place] [address] Kenya Garza M.D. [address] [place] [address] documented as of this encounter Visit Diagnoses Diagnosis Posterior Reversible Encephalopathy Syndrome- Primary documented in this encounter Care Teams Beauty Operator Relationship Specialty Start Date End Date Elsewhere, Pcp PCP - General Internal Medicine 05/29/19 documented as of this encounter
--- OUTSIDE RECORDS SUMMARY | 2024-03-05 08:04 | XMS_ITS | Encounter Summary ---
Author Name Unknown Organization [facility] Address [address] [place] [address] Care Team Providers Care Potato Chip Maker Name Role Phone Elsewhere, Pcp Primary Care Provider Unavailabl e Encounter Details Date Type Department Care Team (Late st Contact Info) Description 02/20/2024 12:05 AM CDT Ancillary Procedure Department of Ophthalmology Social History Tobacco Use Types Packs/Day Years Used Date Smoking Tobacco: Light Smoker Cigarettes 0.5 44 Started: 02/26/1980 Smokeless Tobacco: Never Comments:On again off again Alcohol Use Standard Drinks/Week Comments Yes 0 (1 standard drink = 0.6 oz pur e alcohol) [facility] Utilities Answer Date Recorded In the past 12 months has [employer] electric, gas, oil, or water company threatened [...] Never 06/27/2020 How often do you attend zoroastrian or hinduism serv ices? Never 06/27/2020 Do you belong to any clubs o r organizations such as zoroastrian groups, unions, fraternal or athletic groups, or [...] medical care, and heating? Somewhat hard 06/27/2020 [facility] - Occupational Stress Questionnaire Answer Date [...] your living situation today? I have a [facility] place to live 11/05/2023 Education [...] CDT Ancillary Procedure Department of Ophthalmology in [place], [place] [address] [place] [phone] Kenya Garza M.D. [address] [place] [phone] 03/06/2024 8:00 AM CDT Ancillary Procedure Department of Ophthalmology in [address] [phone] Kenya Garza M.D. [address] [place] [phone] 03/06/2024 9:00 AM CDT Ancillary Procedure Department of Ophthalmology in [address] [phone] Kenya Garza M.D. [address] [place] [phone] 03/06/2024 12:00 PM CDT Office Visit Department of Ophthalmology in [place], [place] [address] [place] [phone] Kenya Garza M.D. [address] [place] [phone] documented as of this encounter Procedures Procedure Name Priority Date/Time Associated Diagnosis Comments OPHTHALMOLOGY IMAGE EXAM Routine 02/20/2024 12:05 AM CDT documented in this encounter Results * Eyes US-Eye [id number] Image Exam (02/20/2024 12:05 AM CDT) Narrative IIMS - 02/20/2024 11:38 AM CDT This order has been created and auto-finalized to support the import of images acquired without order. The clinical documentation to support these images can be found on the encounter that produced images. Provider Not In System IMG NON RAD IMAGI NG PROCEDURES IIMS NA documented in this encounter Visit Diagnoses Not on filedocumented in this encounter Care Teams Potato Chip Maker Relationship Specialty Start Date End Date Elsewhere, Pcp PCP - General Internal Medicine 05/29/19 documented as of this encounter
--- OUTSIDE RECORDS SUMMARY | 2024-03-05 08:04 | XMS_ITS | Referral Summary ---
Author Name Unknown Organization [facility] Address [address] [place] [address] Care Team Providers Care Glass Breaker Name Role Phone Elsewhere, Pcp Primary Care Provider Unavailabl e Source Comments Patient records contain information from all sites at [facility]. For routine questions regarding patient records, call [phone] during business hours, M-F 8:00 AM - 5:00 PM Central Time. Record requests for emergency care only can be directed to [phone] at any time.[facility] Encounters Date Type Department Care Team Description 02/25/2024 4:30 PM CDT Telemedicine Department of Neurology in [place], [place] [address] [place] [address] Piter Baez M.D. Posterior Reversible Encephalopathy Syndrome (Primary Dx) 02/20/2024 12:10 AM CDT Ancillary Procedure Department of Ophthalmology 02/20/2024 12:05 AM CDT Ancillary Procedure Department of Ophthalmology 02/20/2024 Ancillary Procedure Department of Ophthalmology 02/20/2024 3:05 PM CDT - 02/20/2024 11:59 PM CDT Hospital Encounter Department of Radiology, [facility] in [place], [place] [address] [place] [address] Piter Baez M.D. Posterior Reversible Encephalopathy Syndrome Discharge Disposition: Home or Self Care 02/20/2024 1:00 PM CDT Comprehensive Visit Department of Neurology in [place], [place] [address] [place] [address] Piter Baez M.D. Posterior Reversible Encephalopathy Syndrome 02/20/2024 11:15 AM CDT Office Visit Department of Ophthalmology in [place], [place] [address] [place] [phone] Kenya Garza M.D. Panuveitis Right (Primary Dx); Necrosis Retinal Acute Right 02/20/2024 10:00 AM CDT Ancillary Procedure Department of Ophthalmology in [place], [place] [address] [place] [phone] Kenya Garza M.D. Panuveitis Right; Necrosis Retinal Acute Right 02/20/2024 9:50 AM CDT Ancillary Procedure Department of Ophthalmology in [place], [place] [address] [place] [phone] Kenya Garza M.D. Panuveitis Right; Necrosis Retinal Acute Right 01/31/2024 Clinical Communication Department of Neurology in [place], [place] [address] [place] [phone] Piter Baez M.D. Pre-visit Testing Orders 01/23/2024 12:00 PM CDT Office Visit Department of Ophthalmology in [place], [place] [address] [place] [phone] Kenya Garza M.D. Panuveitis Right (Primary Dx); Necrosis Retinal Acute Right 01/20/2024 [facility] [address] [place] [address] Katerine Bashir M.D. Posterior Reversible Encephalopathy Syndrome (Primary Dx) 01/10/2024 Clinical Communication Department of Ophthalmology in [place], [place] [address] [place] [phone] Kenya Garza M.D. Outside hospitalization and medications 01/01/2024 Ancillary Procedure Department of Ophthalmology 01/01/2024 12:30 PM LIME VAT TENDER Ancillary Procedure Department of Ophthalmology in [place], [place] [address] [place] [phone] Kenya Garza M.D. Panuveitis Right 01/01/2024 12:45 PM LIME VAT TENDER Office Visit Department of Ophthalmology in [place], [place] [address] [place] [phone] Kenya Garza M.D. Necrosis Retinal Acute Right (Primary Dx); Panuveitis Right 12/18/2023 Refill Department of Ophthalmology in [place], [place] [address] [place] [address] Kenya Garza M.D. Med Change Request 12/17/2023 1:30 PM LIME VAT TENDER Ancillary Procedure Department of Ophthalmology 12/17/2023 3:00 PM LIME VAT TENDER Ancillary Procedure Department of Ophthalmology in [place], [place] [address] [place] [address] Kenya Garza M.D. Panuveitis Right 12/17/2023 1:30 PM LIME VAT TENDER Office Visit Department of Ophthalmology in [place], [place] [address] [place] [address] Kenya Garza M.D. Panuveitis Right (Primary Dx) from Last 3 Months Allergies Active Allergy Reactions Criticality Noted Date Comments Aller Xt-Barton Poll[place] Blisters,Itching,Rash High 06/21/2020 Medications Medication Sig Dispensed [...] drink = 0.6 oz pur e alcohol) [facility] Utilities Answer Date Recorded In the past 12 months has [employer] electric, gas, oil, or water company threatened [...] Never 06/27/2020 How often do you attend sabianism or holiness serv ices? Never 06/27/2020 Do you belong to any clubs o r organizations such as sabianism groups, unions, fraternal or athletic groups, or [...] medical care, and heating? Somewhat hard 06/27/2020 [employer] of Occupat ional [facility] - Occupational Stress Questionnaire Answer [...] CDT Ancillary Procedure Department of Ophthalmology in [place], [place] [address] [place] [phone] Kenya Garza M.D. [address] [place] [phone] 03/06/2024 8:00 AM CDT Ancillary Procedure Department of Ophthalmology in [place], [place] [address] [place] [phone] Kenya Garza M.D. [address] [place] [address] 03/06/2024 9:00 AM CDT Ancillary Procedure Department of Ophthalmology in [place], [place] [address] [place] [address] Kenya Garza M.D. [address] [place] [phone] 03/06/2024 12:00 PM CDT Office Visit Department of Ophthalmology in [place], [place] [address] [place] [address] Kenya Garza M.D. [address] [place] [phone] Procedures Procedure Name Priority Date/Time Associated Diagnosis [...] - BOTH EYES Routine 01/01/2024 12:34 PM LIME VAT TENDER Panuveitis Right OPHTHALMOLOGY IMAGE EXAM Routine 01/01/2024 12:00 AM LIME VAT TENDER AUTOMATED VF - INTERMEDIATE - OU - BOTH EYES Routine 12/17/2023 3:30 PM LIME VAT TENDER Panuveitis Right OPHTHALMOLOGY IMAGE EXAM Routine 12/17/2023 1:[address] CHEST WITH IV CONTRAST RAD - Routine (most inpatients and all outpatients) 03/31/2020 8:50 AM CDT Nod[facility] Pulmonary from Last 3 Months or Most Recently Relevant to Health Maintenance Results * MR Brain without and with IV Contrast (02/20/2024 4:08 PM CDT) Anatomical Region Laterality Modality Head, Brain, Neuroradiology RST LOS, Neuroradiology ARZ LOS, Neuroradiology FLA LOS N/A Magnetic Resonance Impressions 02/21/2024 8:07 AM [...] acute intracranial findings. Nothing for PRES. Piter Baez M.D. [facility] MRI PROCEDURES * B-Scan Ultrasound - OD - Right Eye (02/20/2024 11:28 AM CDT) Narrative OPHTHALMOLGY NON-IMAGING ORDERS - 02/20/2024 2:13 PM CDT 02/20/2024 B-Scan Right Eye: dense vitreous opacities, probable posterior vitreous detachment, vitreous membranes possibly extending to disc, detachments vs opacities - cannot rule out choroidal detachment, thickened fundus appearance. ZK Kenya Garza M.D. OPHTH ULTRASOUND Performing Organization Address [facility] Co de Phone Number OPHTHALMOLGY NON-IMAGING ORDERS * Eyes Spectralis OCT-Ophthalmology Image Exam (02/20/2024 12:10 AM CDT) Only the most recent of5 resultswithin the time period is included. Narrative IIMS - 02/20/2024 12:05 PM CDT This order has been created and auto-finalized to support the import of images acquired without order. The clinical documentation to support these images can be found on the encounter that produced images. Provider Not In System IMG NON RAD IMAGI NG PROCEDURES Performing Organization Address [facility] de Phone Number IIMS NA * MR [...] IMG MRI PROCEDURE S Performing Organization Address [facility] Co de Phone Number IIMS NA * Optical Coherence Tomography - Macula/Retina - OU - Both Eyes (01/01/2024 12:34 PM LIME VAT TENDER) CMT L Microns 247 um OPH THALMOLOGY IMAGING EXAM Narrative OPHTHALMOLOGY IMAGING EXAM - 01/01/2024 12:45 PM LIME VAT TENDER Right Eye Reliability was good. OCT device [...] Garza M.D. OPHTH TOMOGRAPHY Performing Organization Address [facility] Co de Phone Number OPHTHALMOLOGY IMAGING EXAM * Automated VF - Intermediate - OU - Both Eyes (12/17/2023 3:30 PM LIME VAT TENDER) Narrative OPHTHALMOLOGY IMAGING EXAM - 12/17/2023 6:34 PM LIME VAT TENDER Right Eye Automated visual field device used was other. Left Eye Automated visual field device used was other. Notes [facility] Binocular drivers test - both eyes - horizontal 120 degrees Kenya Garza M.D. OPHTH VISUAL FIELD Performing Organization Address [facility] Co de Phone Number OPHTHALMOLOGY [...] upper abdomen. Clinical correlation is necessary. Emily Karus M.D. IMG CT PROCEDURES from Last 3 Months or Most Recently Relevant to Health Maintenance Care Teams Glass Breaker Relationship Specialty Start Date End Date Elsewhere, Pcp PCP - General Internal Medicine 05/29/19
--- OUTSIDE RECORDS SUMMARY | 2024-03-05 08:04 | XMS_ITS ---
Author Name Unknown Organization [facility] Address [address] [place] [address] Care Team Providers Care Fryer Operator Name Role Phone Unavailable Unavailable Unavailable Surgery Details Not on file Complications Check Surgery Details section. Procedure Estimated Blood Loss Check Surgery Details section. Procedure Findings Check Surgery Details section. Procedure Specimens Taken Check Surgery Details section.
--- OUTSIDE RECORDS SUMMARY | 2024-03-05 08:04 | XMS_ITS | Encounter Summary ---
Author Name Unknown Organization [facility] Address [address] [place] [address] Care Team Providers Care Gas Appliance Servicer Name Role Phone Elsewhere, Pcp Primary Care Provider Unavailabl e Encounter Details Date Type Department Care Team (Late st Contact Info) Description 02/20/2024 Ancillary Procedure Department of Ophthalmology Social History Tobacco Use Types Packs/Day Years Used Date Smoking Tobacco: Light Smoker Cigarettes 0.5 44 Started: 02/26/1980 Smokeless Tobacco: Never Comments:On again off again Alcohol Use Standard Drinks/Week Comments Yes 0 (1 standard drink = 0.6 oz pur e alcohol) [facility] Utilities Answer Date Recorded In the past 12 months has [employer] electric, gas, oil, or water company threatened [...] Never 06/27/2020 How often do you attend baptism or hoahaoism serv ices? Never 06/27/2020 Do you belong to any clubs o r organizations such as baptism groups, unions, fraternal or athletic groups, or [...] medical care, and heating? Somewhat hard 06/27/2020 [facility] of Occupat ional [facility] - Occupational Stress Questionnaire Answer Date Recorded [...] your living situation today? I have a [facility] place to live 11/05/2023 Education [...] CDT Ancillary Procedure Department of Ophthalmology in [place], [place] [address] [place] [phone] Kenya Garza M.D. [address] [place] [phone] 03/06/2024 8:00 AM CDT Ancillary Procedure Department of Ophthalmology in [place], [place] [address] [place] [phone] Kenya Garza M.D. [address] [place] [phone] 03/06/2024 9:00 AM CDT Ancillary Procedure Department of Ophthalmology in [place], [place] [address] [place] [phone] Kenya Garza M.D. [address] [place] [phone] 03/06/2024 12:00 PM CDT Office Visit Department of Ophthalmology in [place], [place] [address] [place] [phone] Kenya Garza M.D. [address] [place] [phone] documented as of this encounter Procedures Procedure Name Priority Date/Time Associated Diagnosis Comments OPHTHALMOLOGY IMAGE EXAM Routine 02/20/2024 12:00 AM CDT documented in this encounter Results * Video-Eyes US-Eye [id number] Image Exam (02/20/2024 12:00 AM CDT) Narrative IIMS - 02/20/2024 11:31 AM CDT This order has been created and auto-finalized to support the import of images acquired without order. The clinical documentation to support these images can be found on the encounter that produced images. Provider Not In System IMG NON RAD IMAGI NG PROCEDURES IIMS NA documented in this encounter Visit Diagnoses Not on filedocumented in this encounter Care Teams Gas Appliance Servicer Relationship Specialty Start Date End Date Elsewhere, Pcp PCP - General Internal Medicine 05/29/19 documented as of this encounter
--- OUTSIDE RECORDS SUMMARY | 2024-03-05 08:04 | XMS_ITS | Encounter Summary ---
Author Name Unknown Organization [facility] Address [address] [place] [address] Care Team Providers Care Leather Carver Name Role Phone Elsewhere, Pcp Primary Care Provider Unavailabl e Reason for Referral * MRI/CAT/PET Scan (Routine) - Closed Specialty Diagnoses / Procedures Referred By Contac t Referred To Contact Radiology Diagnoses Posterior Reversible Encephalopathy Syndrome Procedures MR Brain without and with IV Contrast Piter Baez M.D. [address] [place] [address] [facility] Referral ID Status Reason Start Date Expiration Date Visits Re quested Visits Authorized [id number] Closed 02/03/2024 10/27/2024 1 1 Reason for Visit * MRI/CAT/PET Scan (Routine) - Closed Specialty Diagnoses / Procedures Referred By Contac t Referred To Contact Radiology Diagnoses Posterior Reversible Encephalopathy Syndrome Procedures MR Brain without and with IV Contrast Piter Baez M.D. [address] [place] [address] [facility] Referral ID Status Reason Start Date Expiration Date Visits Re quested Visits Authorized [id number] Closed 02/03/2024 10/27/2024 1 1 Encounter Details Date Type Department Care Team (Latest Contact Info) Description 02/20/2024 3:05 PM CDT - 02/20/2024 11:59 PM CDT Hospital Encounter Department of Radiology, [facility] in [place], [place] [address] [place] [phone] Piter Baez M.D. [address] [place] [address] Posterior Reversible Encephalopathy Syndrome Discharge Disposition: Home or Self Care Social History Tobacco Use Types Packs/Day Years Used Date Smoking Tobacco: Light Smoker Cigarettes 0.5 44 Started: 02/26/1980 Smokeless Tobacco: Never Comments:On again off again Alcohol Use Standard Drinks/Week Comments Yes 0 (1 standard drink = 0.6 oz pur e alcohol) [facility] Utilities Answer Date Recorded In the [...] Never 06/27/2020 How often do you attend buddhist or pentecostal serv ices? Never 06/27/2020 Do you belong to any clubs o r organizations such as buddhist groups, unions, fraternal or athletic groups, or [...] medical care, and heating? Somewhat hard 06/27/2020 [facility] of Occupat ional Health - Occupational Stress [...] your living situation today? I have a [facility] place to live 11/05/2023 Education [...] Refills Start Date End Date albuterol inhaler 06/22/2020 aspirin (ADULT LOW DOSE ASPIRIN) [address] tablet Take 81 mg by mouth daily. atorvastatin (LIPITOR) 40 mg tablet Take 40 mg by mouth daily. 09/26/2016 difluprednate (DUREZOL) 0.05 % ophthalmic emulsion Administer 1 drop into the right eye 4 (four) times a day. Stop prednisolone when you start difluprednate 5 mL 3 11/11/2023 ipratropium-albuteroL (DUONEB) 0.5-2.5 mg/3 mL nebulizer solution INHALE ONE VIAL VIA NEBULIZER EVERY 4 HOURS FOR 3 DAYS AND THEN CAN DECREASE TO NEEDED. 06/09/2020 lisinopril (PRINIVIL,ZESTRIL) 40 mg tablet Take 20 mg by mouth daily. 09/29/2017 prednisoLONE acetate (PRED FORTE) 1 % ophthalmic suspension Administer 1 drop into the right eye every hour while awake. 11/04/2023 predniSONE (DELTASONE) 5 mg tablet Take 2 tablets (10 mg total) by mouth daily. Take the entire dose in the AM with food 60 tablet 1 01/23/2024 umeclidinium-vilanter oL (ANORO ELLIPTA) 62.5-25 mcg/actuation inhalerIndications:Ch ronic Obstructive Pulmonary Disease (HCC) Inhale 1 puff once daily. 1 each 07/06/2020 valACYclovir (VALTREX) 1000 mg tablet Take 1 tablet (1,000 mg total) by mouth 3 (three) times a day. 270 tablet 1 01/23/2024 documented as of this encounter Plan of Treatment Upcoming Encounters Date Type Department Care Team (Late st Contact Info) Description 03/06/2024 7:30 AM CDT Ancillary Procedure Department of Ophthalmology in [place], [place] [address] [place] [phone] Kenya Garza M.D. [address] [place] [phone] 03/06/2024 8:00 AM CDT Ancillary Procedure Department of Ophthalmology in [place], [place] [address] [place] [phone] Kenya Garza M.D. [address] [place] [phone] 03/06/2024 9:00 AM CDT Ancillary Procedure Department of Ophthalmology in [place], [place] [address] [place] [address] Kenya Garza M.D. [address] [place] [address] 03/06/2024 12:00 PM CDT Office Visit Department of Ophthalmology in [place], [place] [address] [place] [address] Kenya Garza M.D. [address] [place] [address] documented as of this encounter Procedures Procedure Name Priority Date/Time Associated Diagnosis Comments MR BRAIN WITHOUT AND WITH IV CONTRAST RAD - Routine (most inpatients and all outpatients) 02/20/2024 4:08 PM CDT Posterior Reversible Encephalopathy Syndrome documented in this encounter Results * MR Brain without and with [...] acute intracranial findings. Nothing for PRES. Piter HARO MRI PROCEDURES documented in this encounter Visit Diagnoses Diagnosis Posterior Reversible Encephalopathy Syndrome documented in this encounter Administered Medications Inactive Administered Medications - up to 3 most recent administrations Medication Order MAR Action Action Date Dose Rate Site gadobutrol injection 0.01-30 mL (GADAVIST) 0.01-30 mL, intravenous, Once in imaging, contrast, Starting on Lay 02/20/24 at 1514, For 1 dose, Imaging Protocol Orders, Dose per Radiant Medication Guidelines Intrathecal doses greater than 0.25 mL not recommended. Given 02/20/2024 3:56 PM CDT 9 mL documented in this encounter Care Teams Leather Carver Relationship Specialty Start Date End Date Elsewhere, Pcp PCP - General Internal Medicine 05/29/19 documented as of this encounter
--- OUTSIDE RECORDS SUMMARY | 2024-03-05 08:05 | XMS_ITS | Encounter Summary ---
Author Name Unknown Organization [facility] Address [address] [place] [address] Care Team Providers Care Circular Clerk Name Role Phone Elsewhere, Pcp Primary Care Provider Unavailabl e Reason for Visit * Reason Onset Date Comments Outside hospitalization and medications 01/10/20 Encounter Details Date Type Department Care Team (Latest Contact Info) Description 01/10/2024 Clinical Communication Department of Ophthalmology in [place], [place] [address] [place] [address] Kenya Garza M.D. [address] [place] [address] Outside hospitalization and medications Social History Tobacco Use Types Packs/Day Years Used Date Smoking Tobacco: Light Smoker Cigarettes 0.5 44 Started: 02/26/1980 Smokeless Tobacco: Never Comments:On again off again Alcohol Use Standard Drinks/Week Comments Yes 0 (1 standard drink = 0.6 oz pur e alcohol) [facility] Utilities Answer Date Recorded In the past 12 months has [employer], gas, oil, or water [employer] threatened to shut off services in your home? No 11/05/2023 Social Connection and Isolation Panel [NHANES] A nswer Date Recorded In a typical week, how many times do you talk on the phone with family, friends, or neighbors? Once a week 06/27/2020 How often do you get together with friends or re latives? Never 06/27/2020 How often do you attend voodoo or druze serv ices? Never 06/27/2020 Do you belong to any clubs o r organizations such as voodoo groups, unions, fraternal or athletic groups, or [...] medical care, and heating? Somewhat hard 06/27/2020 [facility] Occupat ional Health - Occupational [...] PM CDT documented as of this encounter Miscellaneous Notes * Telephone Encounter - Kenya Garza M.D. - 01/10/2024 11:25 AM CDT Also documenting as a note so it is visible in the chart: Please let her know that I am very sorry to hear that she is in the hospital, and I hope she recovers soon. See below for details, but the most important information is that she has to remainon some form of antiviral (IV acyclovir fine for now; when discharged, needs to be back on PO valacyclovir unless they think it was causing the encephalopathy.) Thanks for responding to this - I can see that they have her on IV acyclovir as part of the empiric treatment for possible meningitis/encephalitis. 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 Some of the notes erroneously state that she was on methotrexate just prior to admission, but she has been OFF that medication since last er (it was for bullous pemphigoid, NOT eye disease.) The most important detail is that some form ofacyclovir should NOT be stopped completely once they decide to stop empiric antimicrobial treatmentfor the encephalopathy. After she no longer needs IV therapy, they should restart PO valacyclovir since acute retinal necrosis is not yet resolved. (Risk of developing acute retinal necrosis in the contralateral eye if treatment is completely stopped.) Difluprednate/Durezol eye drops are the least important. Low dose PO prednisone 15 mg daily is relatively important because she has been on it fora while (not since August as erroneously stated in some notes.) documented in this encounter Plan of Treatment Upcoming Encounters Date Type Department Care Team (Late st Contact Info) Description 03/06/2024 7:30 AM CDT Ancillary Procedure Department of Ophthalmology in [place], [place] [address] [place] [phone] Kenya Garza M.D. [address] [place] [phone] 03/06/2024 8:00 AM CDT Ancillary Procedure Department of Ophthalmology in [place], [place] [address] [place] [phone] Kenya Garza M.D. [address] [place] [phone] 03/06/2024 9:00 AM CDT Ancillary Procedure Department of Ophthalmology in [place], [place] [address] [place] [phone] Kenya Garza M.D. [address] [place] [phone] 03/06/2024 12:00 PM CDT Office Visit Department of Ophthalmology in [place], [place] [address] [place] [phone] Kenya Garza M.D. [address] [place] [phone] documented as of this encounter Visit Diagnoses Not on filedocumented in this encounter Care Teams Circular Clerk Relationship Specialty Start Date End Date Elsewhere, Pcp PCP - General Internal Medicine 05/29/19 documented as of this encounter
--- OUTSIDE RECORDS SUMMARY | 2024-03-05 08:05 | XMS_ITS | Encounter Summary ---
Author Name Unknown Organization [facility] Address [address] [place] [address] Care Team Providers Care Jute Bag Cutting Machine Operator Name Role Phone Elsewhere, Pcp Primary Care Provider Unavailabl e Encounter Details Date Type Department Care Team (Latest Contact Info) Description 12/17/2023 3:00 PM HAND II BLOCKER Ancillary Procedure Department of Ophthalmology in [place], [place] [address] [place] [address] Kenya Garza M.D. [address] [place] [address] Panuveitis Right Social History Tobacco Use Types Packs/Day Years Used Date Smoking Tobacco: Light Smoker Cigarettes 0.5 44 Started: 02/26/1980 Smokeless Tobacco: Never Comments:On again off again Alcohol Use Standard Drinks/Week Comments Yes 0 (1 standard drink = 0.6 oz pur e alcohol) [facility] Utilities Answer Date Recorded In the past 12 months has [employer], gas, oil, or water [employer] threatened to shut off services in your home? No 11/05/2023 Social Connection and Isolation Panel [NHANES] A nswer Date Recorded In a typical week, how many times do you talk on the phone with family, friends, or neighbors? Once a week 06/27/2020 How often do you get together with friends or re latives? Never 06/27/2020 How often do you attend adventist or restorationist serv ices? Never 06/27/2020 Do you belong to any clubs o r organizations such as adventist groups, unions, fraternal or athletic groups, or [...] medical care, and heating? Somewhat hard 06/27/2020 [facility] of Occupat ional Health - Occupational Stress [...] CDT Ancillary Procedure Department of Ophthalmology in [place], [place] [address] [place] [phone] Kenya Garza M.D. [address] [place] [phone] 03/06/2024 8:00 AM CDT Ancillary Procedure Department of Ophthalmology in [place], [place] [address] [place] [phone] Kenya Garza M.D. [address] [place] [phone] 03/06/2024 9:00 AM CDT Ancillary Procedure Department of Ophthalmology in [place], [place] [address] [place] [phone] Kenya Garza M.D. [address] [place] [phone] 03/06/2024 12:00 PM CDT Office Visit Department of Ophthalmology in [place], [place] [address] [place] [phone] Kenya Garza M.D. [address] [place] [phone] documented as of this encounter Procedures Procedure Name Priority Date/Time Associated Diagnosis Comments AUTOMATED VF - INTERMEDIATE - OU - BOTH EYES Routine 12/17/2023 3:30 PM HAND II BLOCKER Panuveitis Right documented in this encounter Results * Automated VF - Intermediate - OU - Both Eyes (12/17/2023 3:30 PM HAND II BLOCKER) Narrative OPHTHALMOLOGY IMAGING EXAM - 12/17/2023 6:34 PM HAND II BLOCKER Right Eye Automated visual field device used was other. Left Eye Automated visual field device used was other. Notes [place] Binocular drivers test - both eyes - horizontal 120 degrees Kenya Garza M.D. OPHTH VISUAL FIELD OPHTHALMOLOGY IMAGING EXAM documented in this encounter Visit Diagnoses Diagnosis Panuveitis Right documented in this encounter Care Teams Jute Bag Cutting Machine Operator Relationship Specialty Start Date End Date Elsewhere, Pcp PCP - General Internal Medicine 05/29/19 documented as of this encounter
--- OUTSIDE RECORDS SUMMARY | 2024-03-05 08:05 | XMS_ITS | Encounter Summary ---
Author Name Unknown Organization [facility] Address [address] [place] [address] Care Team Providers Care Installation Drafter Name Role Phone Elsewhere, Pcp Primary Care Provider Unavailabl e Encounter Details Date Type Department Care Team (Latest Contact Info) Description 02/20/2024 9:50 AM CDT Ancillary Procedure Department of Ophthalmology in [place], [place] [address] [place] [address] Kenya Garza M.D. [address] [place] [address] Panuveitis Right; Necrosis Retinal Acute Right Social History Tobacco Use Types Packs/Day Years Used Date Smoking Tobacco: Light Smoker Cigarettes 0.5 44 Started: 02/26/1980 Smokeless Tobacco: Never Comments:On again off again Alcohol Use Standard Drinks/Week Comments Yes 0 (1 standard drink = 0.6 oz pur e alcohol) [facility] Utilities Answer Date Recorded In the past 12 months has [employer], gas, oil, or water [employer] threatened to shut off services in your home? No 11/05/2023 Social Connection and Isolation Panel [NHANES] A nswer Date Recorded In a typical week, how many times do you talk on the phone with family, friends, or neighbors? Once a week 06/27/2020 How often do you get together with friends or re latives? Never 06/27/2020 How often do you attend zoroastrianism or shinto serv ices? Never 06/27/2020 Do [...] medical care, and heating? Somewhat hard 06/27/2020 [facility] [place] of Occupat ional Health - Occupational Stress [...] CDT Ancillary Procedure Department of Ophthalmology in [place], [place] [address] [place] [phone] Kenya Garza M.D. [address] [place] [phone] 03/06/2024 8:00 AM CDT Ancillary Procedure Department of Ophthalmology in [place], [place] [address] [place] [phone] Kenya Garza M.D. [address] [place] [phone] 03/06/2024 9:00 AM CDT Ancillary Procedure Department of Ophthalmology in [place], [place] [address] [place] [phone] Kenya Garza M.D. [address] [place] [phone] 03/06/2024 12:00 PM CDT Office Visit Department of Ophthalmology in [place], [place] [address] [place] [phone] Kenya Garza M.D. [address] [place] [phone] Pending Results Name Type Priority Associated Diagnoses Date /Time Optical Coherence Tomography - Macula/Retina - OU - Both Eyes Ophthalmology Routine Panuveitis Right Necrosis Retinal Acute Right 02/20/2024 11:58 AM CDT documented as of this encounter Visit Diagnoses Diagnosis Panuveitis Right Necrosis Retinal Acute Right documented in this encounter Care Teams Installation Drafter Relationship Specialty Start Date End Date Elsewhere, Pcp PCP - General Internal Medicine 05/29/19 documented as of this encounter
--- OUTSIDE RECORDS SUMMARY | 2024-03-05 08:05 | XMS_ITS | Encounter Summary ---
Author Name Unknown Organization [facility] Address [address] [place] [address] Care Team Providers Care Project Manager Retail Name Role Phone Elsewhere, Pcp Primary Care Provider Unavailabl e Encounter Details Date Type Department Care Team (Latest Contact Info) Description 02/20/2024 10:00 AM CDT Ancillary Procedure Department of Ophthalmology in [place], [place] [address] [place] [address] Kenya Garza M.D. [address] [place] [address] Panuveitis Right; Necrosis Retinal Acute Right Social History Tobacco Use Types Packs/Day Years Used Date Smoking Tobacco: Light Smoker Cigarettes 0.5 44 Started: 02/26/1980 Smokeless Tobacco: Never Comments:On again off again Alcohol Use Standard Drinks/Week Comments Yes 0 (1 standard drink = 0.6 oz pur e alcohol) [facility] Utilities Answer Date Recorded In the past 12 months has [employer], gas, oil, or water [employer] threatened to shut off services in your home? No 11/05/2023 Social Connection and Isolation Panel [NHANES] A nswer Date Recorded In a typical week, how many times do you talk on the phone with family, friends, or neighbors? Once a week 06/27/2020 How often do you get together with friends or re latives? Never 06/27/2020 How often do you attend oriental orthodox or jain serv ices? Never 06/27/2020 Do you belong to any clubs o r organizations such as oriental orthodox groups, unions, fraternal or athletic groups, or [...] medical care, and heating? Somewhat hard 06/27/2020 [facility] of Occupat ional Health - Occupational Stress [...] CDT Ancillary Procedure Department of Ophthalmology in [place], [place] [address] [place] [phone] Kenya Garza M.D. [address] [place] [phone] 03/06/2024 8:00 AM CDT Ancillary Procedure Department of Ophthalmology in [place], [place] [address] [place] [phone] Kenya Garza M.D. [address] [place] [phone] 03/06/2024 9:00 AM CDT Ancillary Procedure Department of Ophthalmology in [place], [place] [address] [place] [phone] Kenya aGrza M.D. [address] [place] [phone] 03/06/2024 12:00 PM CDT Office Visit Department of Ophthalmology in [place], [place] [address] [place] [phone] Kenya Garza M.D. [address] [place] [phone] documented as of this encounter Procedures Procedure Name Priority Date/Time Associated Diagnosis Comments B SCAN - OD - RIGHT EYE Routine 02/20/2024 11:28 AM CDT Panuveitis Right Necrosis Retinal Acute Right documented [...] appearance. ZK Kenya Garza M.D. OPHTH ULTRASOUND OPHTHALMOLGY NON-IMAGING ORDERS documented in this encounter Visit Diagnoses Diagnosis Panuveitis Right Necrosis Retinal Acute Right documented in this encounter Care Teams Project Manager Retail Relationship Specialty Start Date End Date Elsewhere, Pcp PCP - General Internal Medicine 05/29/19 documented as of this encounter
--- OUTSIDE RECORDS SUMMARY | 2024-03-05 08:05 | XMS_ITS | Encounter Summary ---
Author Name Unknown Organization [facility] Address [address] [place] [address] Care Team Providers Care Medicinal Plant Picker Name Role Phone Elsewhere, Pcp Primary Care Provider Unavailabl e Reason for Referral * Outpatient (Routine) - Closed Specialty Diagnoses / Procedures Referred By Apolinar lopez Referred To Contact Neurology Diagnoses Posterior Reversible Encephalopathy Syndrome Katerine Bashir M.D. [address] [place] [address] [facility] Referral ID Status Reason Start Date Expiration Date Visits Re quested Visits Authorized [id number] Closed 01/20/2024 07/21/2025 1 1 Encounter Details Date Type Department Care Team (Latest Contact Info) Description 01/20/2024 [facility] [address] [place] [address] Katerine Bashir M.D. [address] [place] [address] Posterior Reversible Encephalopathy Syndrome (Primary Dx) Social History Tobacco Use Types Packs/Day Years Used Date Smoking Tobacco: Light Smoker Cigarettes 0.5 44 Started: 02/26/1980 Smokeless Tobacco: Never Comments:On again off again Alcohol Use Standard Drinks/Week Comments Yes 0 (1 standard drink = 0.6 oz pur e alcohol) [facility] Utilities Answer Date Recorded In the past 12 months has [employer], gas, oil, or water [employer] threatened to shut off services in your home? No 11/05/2023 Social Connection and Isolation Panel [NHANES] A nswer Date Recorded In a typical week, how many times do you talk on the phone with family, friends, or neighbors? Once a week 06/27/2020 How often do you get together with friends or re latives? Never 06/27/2020 How often do you attend jehovah's witness or roman catholic serv ices? Never 06/27/2020 Do you belong to any clubs o r organizations such as jehovah's witness groups, unions, fraternal or athletic groups, or [...] medical care, and heating? Somewhat hard 06/27/2020 [facility] of Occupat ional Health [...] your living situation today? I have a [facility] place to live 11/05/2023 Education Answer [...] CDT Ancillary Procedure Department of Ophthalmology in [place], [place] [address] [place] [phone] Kenya Garza M.D. [address] [place] [phone] 03/06/2024 8:00 AM CDT Ancillary Procedure Department of Ophthalmology in [place], [place] [address] [place] [phone] Kenya Garza M.D. [address] [place] [phone] 03/06/2024 9:00 AM CDT Ancillary Procedure Department of Ophthalmology in [place], [place] [address] [place] [address] Kenya Garza M.D. 200 [place] [phone] 03/06/2024 12:00 PM CDT Office Visit Department of Ophthalmology in [place], [place] 200 [place] [address] Kenya Garza M.D. 200 [place] [phone] Scheduled Referrals Name Type Priority Associated Diagnoses Orde r Schedule Neurology Referral Outpatient Referral Routine Posterior Reversible Encephalopathy Syndrome Expected: 01/20/2024 (Approximate), Expires: 04/21/2025 documented as of this encounter Visit Diagnoses Diagnosis Posterior Reversible Encephalopathy Syndrome- Primary documented in this encounter Care Teams Medicinal Plant Picker Relationship Specialty Start Date End Date Elsewhere, Pcp PCP - General Internal Medicine 05/29/19 documented as of this encounter
--- OUTSIDE RECORDS SUMMARY | 2024-03-05 08:05 | XMS_ITS | Encounter Summary ---
Author Name Unknown Organization [facility] Address [address] [place] [address] Care Team Providers Care Environmental Services Floor Tech Name Role Phone Elsewhere, Pcp Primary Care Provider Unavailabl e Reason for Visit * Reason Comments Med Change Request Encounter Details Date Type Department Care Team ([facility] st Contact Info) Description 12/18/2023 Refill Department of Ophthalmology in [place], [place] [address] [place] [phone] Kenya Garza M.D. [address] [place] [address] Med Change Request Social History Tobacco Use Types Packs/Day Years Used Date Smoking Tobacco: Light Smoker Cigarettes 0.5 44 Started: 02/26/1980 Smokeless Tobacco: Never Comments:On again off again Alcohol Use Standard Drinks/Week Comments Yes 0 (1 standard drink = 0.6 oz pur e alcohol) [facility] Utilities Answer Date Recorded In the past 12 months has [employer], gas, oil, or water [employer] threatened to shut off services in your home? No 11/05/2023 Social Connection and Isolation Panel [NHANES] A nswer Date Recorded In a typical week, how many times do you talk on the phone with family, friends, or neighbors? Once a week 06/27/2020 How often do you get together with friends or re latives? Never 06/27/2020 How often do you attend roman catholic or caodaism serv ices? Never 06/27/2020 Do [...] medical care, and heating? Somewhat hard 06/27/2020 [facility] of Occupat ional Health - Occupational Stress [...] CDT Ancillary Procedure Department of Ophthalmology in [place], [place] [address] [place] [phone] Kenya Garza M.D. [address] [place] [phone] 03/06/2024 8:00 AM CDT Ancillary Procedure Department of Ophthalmology in [place], [place] [address] [place] [phone] Kenya Garza M.D. [address] [place] [phone] 03/06/2024 9:00 AM CDT Ancillary Procedure Department of Ophthalmology in [place], [place] [address] [place] [phone] Kenya Garza M.D. [address] [place] [phone] 03/06/2024 12:00 PM CDT Office Visit Department of Ophthalmology in [place], [place] [address] [place] [phone] Kenya Garza M.D. [address] [place] [phone] documented as of this encounter Visit Diagnoses Not on filedocumented in this encounter Care Teams Environmental Services Floor Tech Relationship Specialty Start Date End Date Elsewhere, Pcp PCP - General Internal Medicine 05/29/19 documented as of this encounter
--- OUTSIDE RECORDS SUMMARY | 2024-03-05 08:05 | XMS_ITS | Encounter Summary ---
Author Name Unknown Organization [facility] Address [address] [place] [address] Care Team Providers Care Hospice Case Manager Name Role Phone Elsewhere, Pcp Primary Care Provider Unavailabl e Reason for Referral * Outpatient (Routine) - Closed Specialty Diagnoses / Procedures Referred By Apolinar lopez Referred To Contact Ophthalmology Diagnoses Panuveitis Right Kenya Garza M.D. [address] [place] [address] [facility] Referral ID Status Reason Start Date Expiration Date Visits Re quested Visits Authorized [id number] Closed 12/17/2023 06/17/2025 1 1 ISTICAL TYPIST Reason for Visit * Outpatient (Routine) - Closed Specialty Diagnoses / Procedures Referred By Apolinar lopez Referred To Contact Ophthalmology Kenya Garza M.D. [address] [place] [address] [facility] Referral ID Status Reason Start Date Expiration Date Visits Re quested Visits Authorized [id number] Closed 12/02/2023 06/02/2025 1 1 Encounter Details Date Type Department Care Team (Latest Contact Info) Description 12/17/2023 1:30 PM STATISTICAL TYPIST Office Visit Department of Ophthalmology in [place], [place] [address] [place] [address] [phone] Kenya Garza M.D. [address] [place] [address] [phone] Panuveitis (Primary Dx) Social History Tobacco Use Types Packs/Day Years Used Date Smoking Tobacco: Light Smoker Cigarettes 0.5 44 Started: 02/26/1980 Smokeless Tobacco: Never Comments:On again off again Alcohol Use Standard Drinks/Week Comments Yes 0 (1 standard drink = 0.6 oz pur e alcohol) [facility] Utilities Answer Date Recorded In the past [...] Never 06/27/2020 How often do you attend protestant or hindu serv ices? Never 06/27/2020 Do you belong to any clubs o r organizations such as protestant groups, unions, fraternal or athletic groups, or [...] medical care, and heating? Somewhat hard 06/27/2020 [facility] [place] of Occupat ional Health - Occupational Stress [...] your living situation today? I have a [facility] place to live 11/05/2023 Education Answer [...] * Patient Instructions* Kenya Garza M.D. - 12/17/2023 1:30 PM STATISTICAL TYPIST Please continue the oral valacyclovir medication, 1000 mg tablet Take 1 tablet, three times per day. Continue prednisone 20 mg daily (2 tablets) in the morning Eye drops, RIGHT eye Difluprednate (pink or white top) - decrease to 2 times per day. Cyclopentolate (red top) - STOP Use preservative free artificial tears 2-3x/day (Bio True or Refresh Relieva) Return to see Dr. Garza in about 2 weeks on 01/01/24 . Call with questions or new symptoms: [phone] ISTICAL TYPIST documented in this encounter Progress Notes * Kenya Garza M.D. - 12/17/2023 1:30 PM CST HPI - 11/05/23 Mrs. Alexandra iDxon is a 68 year old woman who is referred by Dr. Daisy Ivy for evaluation ofuveitis. She woke up with a red, painful, tearing right eye on 10/16/23. Was seen in urgent care on 10/19/23and diagnosed with pink eye, treated with tobramycin drops without improvement. She saw air brush decorator Dr. Daisy Ivy on 10/23/23. [facility] was [...] has not been able to see her die repairer trimmer dies oncologist recently because every time she went to an appointment she was sent to the emergency room due to elevated blood pressure. In August 2023, she was sent from an infusion center to [facility] emergency department where shewas found to have oxygen saturations of 78%. CT imaging showed worsening bilateral ground glass opacities. A CT scan was negative for pulmonary embolism. She was transferred to [facility] for additional pulmonology care. On 09/12/23 [...] x 4 (2000) and PCI to RCA (2016) # History of type 2 diabetes mellitus 11/05/23 She had shingles about three years ago: it was a bullseye rash in the middle of her back by her report. She did have Shingrix vaccination after that. She was in the hospital three times in the past three months: [facility] (09/02/23 for hypercalcemiaand acute kidney injury - had CT chest/abdomen/pelvis to assess for malignancy), [facility] again. Each time she saw [...] plans to monitor. (Her oncologist is at [facility].) MEDICATIONS Prednisolone every hour while awake [...] shallow retinal detachment. No T sign noted. [facility] Macula OCT of the right eye shows [...] membranes. Possible posterior thickening. No T sign. 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 11/18/23 No significant change in vision since last visit. The pharmacy is having difficulty getting a refill for cyclopentolate, but she still has some of the drops. She started Durezol two days after last visit. Durezol QID right eye (started 11/13/23) Cyclopentolate TID, right eye Valacyclovir 1000 mg TID (started 11/06/23) Status post intravitreal foscarnet & ganciclovir on 11/05/23 [facility] without correction HM and 20/25 (PH [...] right eye, Topcon color photos right, WMS 11/25/23 No change in her vision. Using medications as prescribed. MEDICATIONS Durezol QID right eye (started 11/13/23) Cyclopentolate BID, right eye Valacyclovir 1000 mg TID (started 11/06/23) Status post intravitreal foscarnet & ganciclovir on 11/05/23 [facility] without correction HM and 20/30 (PH 20/20) The right eye anterior chamber inflammation is low grade The vitreous cell and haze are stable There is still a band of hyaloid with dense debris visible in the macula, the optic nerve appears edematous (hazy view). In the periphery, there are large patches of retinitis that are essentially confluent 360 degrees - they are continuing to involute There is sclerosis/sheathing along arterioles in the inferior arcade and superonasal to the optic disc in the right eye The left eye has no inflammation. Optos color photos confirm exam findings (11/25/23) 11/25/2023 B scan right eye: Moderate-dense vitreous opacities. Unable to rule out shallow detachment vs subhyaloid opacities. 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 There is slow involution of the peripheral patches of retinitis in the right eye. We will continue the current regimen of PO valacyclovir and Durezol. No need to repeat intravitrealinjections at this time. Start low dose PO prednisone 20 mg daily. We previously discussed that thesystemic antiviral reduces the risk of developing acute retinal necrosis in the left eye. We also discussed the significant amount of retinitis in the right eye and the high risk of retinal detachment. Continue PO valacyclovir 1 g TID Continue Durezol QID right eye Continue cyclopentolate drops - BID Start PO prednisone 20 mg daily 12/02/23 MEDICATIONS Durezol QID right eye (started 11/13/23) Cyclopentolate BID, right eye Valacyclovir 1000 mg TID (started 11/06/23) Prednisone 20 mg daily (started 11/26/23) [facility] without correction HM and 20/30 (PH 20/20) The right eye anterior chamber inflammation is nearly resolved The vitreous cell is stable, haze slightly decreased There is sclerosis/sheathing along arterioles in the inferior arcade and superonasal to the optic disc in the right eye There is still a band of hyaloid with dense debris visible in the macula, the optic nerve appears edematous (hazy view). In the periphery, there are large patches of retinitis that are essentially confluent 360 degrees - they are continuing to involute The left eye has no inflammation. 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 She started PO prednisone 20 mg daily a week ago. There is continued slow involution of the peripheral patches of retinitis in the right eye. The anterior chamber is essentially quiet, the vitreous haze has improved a little. We will continue the current regimen of PO valacyclovir and Durezol plus PO prednisone. No need to repeat intravitreal injections at this time. Continue PO valacyclovir 1 g TID Continue Durezol - decrease slightly to 3x/day, right eye Continue cyclopentolate drops - decrease to 1x/day, right eye Continue PO prednisone 20 mg daily TODAY - 12/17/2023 This morning, her right eye was stuck in place. Her eye is more watery after using Durezol. MEDICATIONS Durezol TID right eye (started 11/13/23) Cyclopentolate daily, right eye Valacyclovir 1000 mg TID (started 11/06/23) Prednisone 20 mg daily (started 11/26/23) Status post intravitreal foscarnet & ganciclovir on 11/05/23 EXAM [facility] without correction HM and 20/25 (PH 20/20) ICare pressures 4 & 11 The right eye anterior chamber inflammation is stable and low grade The vitreous cell is decreased, haze again slightly decreased There is sclerosis/sheathing along arterioles in the inferior arcade and superonasal to the optic disc in the right eye There is still a band of hyaloid with dense debris visible in the macula, the optic nerve appears edematous (hazy view). In the periphery, there are large patches of retinitis that are essentially confluent 360 degrees - they are continuing to involute The left eye has no inflammation. 11/25/2023 B scan right eye: Moderate-dense vitreous opacities. Unable to rule out shallow detachment vs subhyaloid opacities. 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 Dr. Clemens agreed that the choroid looks suspicious, but the degree of anterior chamber and vitreous inflammation would be atypical for a choroidal lymphoma. If there continues to be clinical suspicion for lymphoma, then we will get an MRI of the orbits. PLAN It has been 6 weeks since intravitreal foscarnet and ganciclovir and 5w6d on PO valacyclovir. She started PO prednisone 20 mg daily on 11/26/2023. There is continued slow involution of the peripheral patches of retinitis in the right eye. The anterior chamber is nearly quiet, the vitreous cell and haze also slowly improving. There are sclerotic arterioles close to the disc, so she may have had We will continue the current regimen of PO valacyclovir and Durezol plus PO prednisone. No need to repeat intravitreal injections at this time. We previously discussed that the systemic antiviral reduces the risk of developing acute retinal necrosis in the left eye. We also discussed the significant amount of retinitis in the right eye and the high risk of retinal detachment. 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 Follow up in 2 weeks on 01/01/24 at 12:45 pm: [facility], dilate both eyes, OCT, WMS ISTICAL TYPIST documented in this encounter Plan of Treatment Upcoming Encounters Date Type Department Care Team (Late st Contact Info) Description 03/06/2024 7:30 AM CDT Ancillary Procedure Department of Ophthalmology in [place], [place] [address] [place] [address] Kenya Garza M.D. [address] [place] [phone] 03/06/2024 8:00 AM CDT Ancillary Procedure Department of Ophthalmology in [place], [place] [address] [place] [phone] Kenya Garza M.D. [address] [place] [phone] 03/06/2024 9:00 AM CDT Ancillary Procedure Department of Ophthalmology in [place], [place] [address] [place] [phone] Kenya Garza M.D. [address] [place] [address] 03/06/2024 12:00 PM CDT Office Visit Department of Ophthalmology in [place], [place] [address] [place] [address] Kenya Garza M.D. [address] [place] [address] Scheduled Referrals Name Type Priority Associated Diagnoses Order Schedule Ophthalmology office visit (clinic) Outpatient Referral Routine Panuveitis Right Expected: 01/01/2024, Expires: 12/17/2026 documented as of this encounter Results * Optical Coherence Tomography - Macula/Retina - OU - Both Eyes (01/01/2024 12:34 PM STATISTICAL TYPIST) CMT L Microns 247 um OPH THALMOLOGY IMAGING EXAM Narrative OPHTHALMOLOGY IMAGING EXAM - 01/01/2024 12:45 PM STATISTICAL TYPIST Right Eye Reliability was good. OCT device [...] M.D. OPHTH TOMOGRAPHY OPHTHALMOLOGY IMAGING EXAM * Automated VF - Intermediate - OU - Both Eyes (12/17/2023 3:30 PM STATISTICAL TYPIST) Narrative OPHTHALMOLOGY IMAGING EXAM - 12/17/2023 6:34 PM STATISTICAL TYPIST Right Eye Automated visual field device used was other. Left Eye Automated visual field device used was other. Notes [place] Binocular drivers test - both eyes - horizontal 120 degrees Kenya Garza M.D. OPHTH VISUAL FIELD OPHTHALMOLOGY IMAGING EXAM documented in this encounter Visit Diagnoses Diagnosis Panuveitis Right- Primary Panuveitis Right Panuveitis Right documented in this encounter Care Teams Hospice Case Manager Relationship Specialty Start Date End Date Elsewhere, Pcp PCP - General Internal Medicine 05/29/19 documented as of this encounter
--- OUTSIDE RECORDS SUMMARY | 2024-03-05 08:05 | XMS_ITS | Encounter Summary ---
Author Name Unknown Organization [facility] Address [address] [place] [address] Care Team Providers Care Optical Glass Silverer Name Role Phone Elsewhere, Pcp Primary Care Provider Unavailabl e Encounter Details Date Type Department Care Team (Latest Contact Info) Description 01/01/2024 12:30 PM CLINICAL DATA ASSISTANT Ancillary Procedure Department of Ophthalmology in [place], [place] [address] [place] [address] Kenya Garza M.D. [address] [place] [address] Panuveitis Right Social History Tobacco Use Types Packs/Day Years Used Date Smoking Tobacco: Light Smoker Cigarettes 0.5 44 Started: 02/26/1980 Smokeless Tobacco: Never Comments:On again off again Alcohol Use Standard Drinks/Week Comments Yes 0 (1 standard drink = 0.6 oz pur e alcohol) [facility] Utilities Answer Date Recorded In the past 12 months has [employer], gas, oil, or water [employer] threatened to shut off services in your home? No 11/05/2023 Social Connection and Isolation Panel [NHANES] A nswer Date Recorded In a typical week, how many times do you talk on the phone with family, friends, or neighbors? Once a week 06/27/2020 How often do you get together with friends or re latives? Never 06/27/2020 How often do you attend rastafari or sabianism serv ices? Never 06/27/2020 Do you belong to any clubs o r organizations such as rastafari groups, unions, fraternal or athletic groups, or [...] medical care, and heating? Somewhat hard 06/27/2020 [facility] [place] of Occupat ional Health - Occupational Stress [...] CDT Ancillary Procedure Department of Ophthalmology in [place], [place] [address] [place] [phone] Kenya Garza M.D. [address] [place] [phone] 03/06/2024 8:00 AM CDT Ancillary Procedure Department of Ophthalmology in [place], [place] [address] [place] [phone] Kenya Garza M.D. [address] [place] [phone] 03/06/2024 9:00 AM CDT Ancillary Procedure Department of Ophthalmology in [place], [place] [address] [place] [phone] Kenya Garza M.D. [address] [place] [phone] 03/06/2024 12:00 PM CDT Office Visit Department of Ophthalmology in [place], [place] [address] [place] [phone] Kenya Garza M.D. [address] [place] [phone] documented as of this encounter Procedures Procedure Name Priority Date/Time Associated Diagnosis Comments OPTICAL COHERENCE TOMOGRAPHY - MACULA/RETINA - OU - BOTH EYES Routine 01/01/2024 12:34 PM CLINICAL DATA ASSISTANT Panuveitis Right documented in this encounter Results * Optical Coherence Tomography - Macula/Retina - OU - Both Eyes (01/01/2024 12:34 PM CLINICAL DATA ASSISTANT) CMT L Microns 247 um OPH THALMOLOGY IMAGING EXAM Narrative OPHTHALMOLOGY IMAGING EXAM - 01/01/2024 12:45 PM CLINICAL DATA ASSISTANT Right Eye Reliability was good. OCT [...] Right documented in this encounter Care Teams Optical Glass Silverer Relationship Specialty Start Date End Date Elsewhere, Pcp PCP - General Internal Medicine 05/29/19 documented as of this encounter
--- OUTSIDE RECORDS SUMMARY | 2024-03-05 08:05 | XMS_ITS | Encounter Summary ---
Author Name Unknown Organization [facility] Address [address] [place] [address] Care Team Providers Care Graduate Civil Engineer Name Role Phone Elsewhere, Pcp Primary Care Provider Unavailabl e Reason for Referral * Outpatient (Routine) - Closed Specialty Diagnoses / Procedures Referred By Apolinar lopez Referred To Contact Ophthalmology Diagnoses Panuveitis Right Necrosis Retinal Acute Right Kenya Garza M.D. [address] [place] [address] [facility] Referral ID Status Reason Start Date Expiration Date Visits Re quested Visits Authorized [id number] Closed 01/23/2024 07/24/2025 1 1 Reason for Visit * Outpatient (Routine) - Closed Specialty Diagnoses / Procedures Referred By Apolinar lopez Referred To Contact Ophthalmology Kenya Garza M.D. [address] [place] [address] [facility] Referral ID Status Reason Start Date Expiration Date Visits Re quested Visits Authorized [id number] Closed 01/01/2024 07/02/2025 1 1 Encounter Details Date Type Department Care Team (Latest Contact Info) Description 01/23/2024 12:00 PM CDT Office Visit Department of Ophthalmology in [place], [place] [address] [place] [phone] Kenya Garza M.D. [address] [place] [phone] Panuveitis Right (Primary Dx); Necrosis Retinal Acute Right Social History Tobacco Use Types Packs/Day Years Used Date Smoking Tobacco: Light Smoker Cigarettes 0.5 44 Started: 02/26/1980 Smokeless Tobacco: Never Comments:On again off again Alcohol Use Standard Drinks/Week Comments Yes 0 (1 standard drink = 0.6 oz pur e alcohol) [facility] Utilities Answer Date Recorded In the past [...] Never 06/27/2020 How often do you attend episcopalian or sabianism serv ices? Never 06/27/2020 Do you belong to any clubs o r organizations such as episcopalian groups, unions, fraternal or athletic groups, or [...] medical care, and heating? Somewhat hard 06/27/2020 [facility] - Occupational Stress [...] situation today? I have a [facility] place to live 11/05/2023 Education Answer [...] * Patient Instructions* Kenya Garza M.D. - 01/23/2024 12:00 PM CDT Please continue the oral valacyclovir medication, 1000 mg tablet Take 1 tablet, three times per day. Decrease prednisone to 10 mg daily (two 5 mg tablets) in the morning Eye drops, RIGHT eye Difluprednate (pink or white top) - 2 times per day. Use preservative free artificial tears 2-3x/day (Bio True or Refresh Relieva) Return to see Dr. Garza in about 4 weeks on 02/20/24 Call with questions or new symptoms: [phone] documented in this encounter Progress Notes * Kenya Garza M.D. - 01/23/2024 12:00 PM CDT HPI - 11/05/23 Mrs. Alexandra Dixon is a 68 year old woman who is referred by Dr. Daisy Ivy for evaluation ofuveitis. She woke up with a red, painful, tearing right eye on 10/16/23. Was seen in urgent care on 10/19/23and diagnosed with pink eye, treated with tobramycin drops without improvement. She saw kosher sealer Dr. Daisy Ivy on 10/23/23. [facility] was [...] has not been able to see her protein chemist oncologist recently because every time she went to an appointment she was sent to the emergency room due to elevated blood pressure. In August 2023, she was sent from an infusion center to [place] emergency department where shewas found to have oxygen saturations of 78%. CT imaging showed worsening bilateral ground glass opacities. A CT scan was negative for pulmonary embolism. She was transferred to [facility] for additional pulmonology care. On 09/12/23 [...] three times in the past three months: [place] (09/02/23 for hypercalcemiaand acute kidney injury - had CT chest/abdomen/pelvis to assess for malignancy), [facility] again. Each time she saw [...] shallow retinal detachment. No T sign noted. 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 Possible posterior thickening. No T sign. [facility] HSV 2 PCR from anterior chamber tap [...] to TID in the right eye. 11/18/23 She started Durezol two days after last visit. Durezol QID right eye (started 11/13/23) Cyclopentolate TID, right eye Valacyclovir 1000 mg TID (started 11/06/23) VA without correction HM and 20/25 (PH [...] subhyaloid opacities. No T sign noted. [facility]. PLAN There is slow involution of the [...] comorbidities. Continue PO valacyclovir 1 g TID Continue Durezol QID right eye Continue cyclopentolate drops - can decrease slightly to BID in the right eye. (If the pharmacy cannot get a refill, we will switch to atropine once daily) 11/25/23 Medications: Durezol QID right eye (started 11/13/23) Cyclopentolate [...] rule out shallow detachment vs subhyaloid opacities. [facility] PLAN: It has been 21 days since intravitreal foscarnet and ganciclovir and 20 days on PO valacyclovir. There is slow involution of the peripheral patches of retinitis in the right eye. We will continue the current regimen of PO valacyclovir and Durezol. No need to repeat intravitrealinjections at this time. Start low dose PO prednisone 20 mg daily. Continue PO valacyclovir 1 g TID Continue [...] involute The left eye has no inflammation. PLAN: It has been 27 days since [...] eye Continue PO prednisone 20 mg daily 12/17/2023 MEDICATIONS Durezol TID right eye (started 11/13/23) Cyclopentolate daily, right eye Valacyclovir 1000 mg TID (started 11/06/23) Prednisone 20 mg daily (started 11/26/23) VA without correction HM and 20/25 (PH 20/20) The right eye anterior chamber [...] involute The left eye has no inflammation. It has been 6 weeks since intravitreal [...] the disc, so she may have had a branch artery occlusion. We will continue the current regimen of PO valacyclovir and Durezol plus PO prednisone. 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 01/01/24 No changes in vision since last visit. MEDICATIONS Durezol BID right eye (started 11/13/23) Valacyclovir 1000 mg TID (started 11/06/23) Prednisone 20 mg daily (started 11/26/23) VA without correction HM and 20/20 ICare pressures 3 & 10 The right eye anterior chamber inflammation is slightly increased, but still low grade The vitreous cell is stable, haze again slightly decreased There is sclerosis/sheathing along arterioles in the inferior arcade and superonasal to the optic disc in the right eye The band of hyaloid is no longer exerting traction on the arcade, still attached to the optic nerve, and the optic nerve still appears edematous. In the periphery, there are large patches of retinitis that are essentially confluent 360 degrees - they are continuing to involute The left eye has no inflammation. It has been 8 weeks since intravitreal foscarnet and ganciclovir and 7 wks on PO valacyclovir. She started PO prednisone 20 mg daily on 11/26/2023. There is further involution of the peripheral patches of retinitis in the right eye. The anterior chamber cell is slightly increased status post decrease in Durezol from TID to BID twoweeks ago. The vitreous cell is stable, haze improving. There are sclerotic arterioles close to the disc, so she may have had a branch artery occlusion. Optic nerve inflammation might be the other cause of persistently decreased vision. We will continue the current regimen of PO valacyclovir and Durezol plus PO prednisone. No need to repeat intravitreal injections at this time. We will decrease PO prednisone slightly to reduce the risk of pneumocystis pneumonia. (To 15 mg daily) TODAY - 01/23/24 She was hospitalized due to altered mental status. Ultimately the diagnosis was PRES. She is supposed to follow up with neurology - has been referred here. She remained on the antiviral medication while she was admitted. She has not noticed any change in vision or symptoms related to her right eye. MEDICATIONS Durezol BID right eye (started 11/13/23) Valacyclovir 1000 mg TID (started 11/06/23) Prednisone 15 mg daily (started 20 mg 11/26/23, 01/01/24 15 mg) Status post intravitreal foscarnet & ganciclovir on 11/05/23 EXAM VA without correction HM and 20/20 ICare pressures 3 & 12 The right eye anterior chamber cell is rare The vitreous cell is stable, haze again slightly decreased There is sclerosis/sheathing along arterioles in the inferior arcade and superonasal to the optic disc in the right eye The band of hyaloid is no longer exerting traction on the arcade, still attached to the optic nerve, and the optic nerve still appears edematous. In the periphery, the retinitis is nearly completely involuted - remaining area is nasal. The left eye has no inflammation. Macula OCT 01/01/24 of the right eye showed decreased thickening and choroidal undulations. The outerretinal structures are ratty and there are two subretinal deposits just temporal to the fovea. No subretinal fluid, just a small amount of peripapillary intraretinal fluid. The choroid is decreased in thickness vs 10/2023, but there are still undulations of the surface. There is also decreased visible debris in the posterior hyaloid which is still attached to the disc. OCT of the left eye is unremarkable (essentially normal). 11/25/2023 B scan right eye: Moderate-dense vitreous opacities. Unable to rule out shallow detachment vs subhyaloid opacities. 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 Repeat OCT (01/01/24) shows decreased choroidal thickening. PLAN It has been 11 weeks since intravitreal foscarnet and ganciclovir and 10 wks on PO valacyclovir. She started PO prednisone 20 mg daily on 11/26/2023, 15 mg as of 01/02/24. The peripheral patches of retinitis in the right eye are nearly completely involuted. The anterior chamber cell is rare. The vitreous cell is stable, haze improving. There are sclerotic arterioles close to the disc, so she may have had a branch artery occlusion. Optic nerve inflammation might be the other cause of persistently decreased vision. We will continue the current regimen of PO valacyclovir and Durezol plus PO prednisone. No need to repeat intravitreal injections at this time. We will decrease PO prednisone further. We previously discussed that the systemic antiviral reduces the risk of developing acute retinal necrosis in the left eye. We also discussed the significant amount of retinitis in the right eye and the high risk of retinal detachment. 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 Follow up in 4 weeks on 02/20/24 11:30a: [facility], [facility], dilate both eyes, US right eye, OCT both eyes, WMS documented in this encounter Plan of Treatment Upcoming Encounters Date Type Department Care Team (Late st Contact Info) Description 03/06/2024 7:30 AM CDT Ancillary Procedure Department of Ophthalmology in [place], [place] [address] [place] [address] Kenya Garza M.D. [address] [place] [address] 03/06/2024 8:00 AM CDT Ancillary Procedure Department of Ophthalmology in [place], [place] [address] [place] [phone] Kenya Garza M.D. [address] [place] [phone] 03/06/2024 9:00 AM CDT Ancillary Procedure Department of Ophthalmology in [place], [place] [address] [place] [phone] Kenya Garza M.D. [address] [place] [phone] 03/06/2024 12:00 PM CDT Office Visit Department of Ophthalmology in [place], [place] [address] [place] [address] Kenya Garza M.D. [address] [place] [phone] Pending Results Name Type Priority Associated Diagnoses Date /Time Optical Coherence Tomography - Macula/Retina - OU - Both Eyes Ophthalmology Routine Panuveitis Right Necrosis Retinal Acute Right 02/20/2024 11:58 AM CDT Scheduled Orders Name Type Priority Associated Diagnoses Orde r Schedule Optical Coherence Tomography - Macula/Retina - OU - Both Eyes Ophthalmology Routine Panuveitis Right Necrosis Retinal Acute Right 1 Occurrences starting 01/23/2024 until 01/22/2027 Scheduled Referrals Name Type Priority Associated Diagnoses Order Schedule Ophthalmology office visit (clinic) Outpatient Referral Routine Panuveitis Right Necrosis Retinal Acute Right Expected: 02/20/2024, Expires: 01/22/2027 documented as of this encounter Results * [...] Right documented in this encounter Care Teams Graduate Civil Engineer Relationship Specialty Start Date End Date Elsewhere, Pcp PCP - General Internal Medicine 05/29/19 documented as of this encounter
--- OUTSIDE RECORDS SUMMARY | 2024-03-05 08:05 | XMS_ITS | Encounter Summary ---
Author Name Unknown Organization [facility] Address [address] [place] [address] Care Team Providers Care Quality Control Associate Name Role Phone Elsewhere, Pcp Primary Care Provider Unavailabl e Encounter Details Date Type Department Care Team (Late st Contact Info) Description 12/17/2023 1:30 PM PROFESSOR CRIMINAL JUSTICE Ancillary Procedure Department of Ophthalmology Social History Tobacco Use Types Packs/Day Years Used Date Smoking Tobacco: Light Smoker Cigarettes 0.5 44 Started: 02/26/1980 Smokeless Tobacco: Never Comments:On again off again Alcohol Use Standard Drinks/Week Comments Yes 0 (1 standard drink = 0.6 oz pur e alcohol) [facility] Utilities Answer Date Recorded In the past 12 months has th [employer] electric, gas, oil, or water company threatened [...] How often do you attend buddhism or hinduism serv ices? Never 06/27/2020 Do [...] medical care, and heating? Somewhat hard 06/27/2020 [facility] Questionnaire Answer Date Recorded [...] your living situation today? I have a [facility] place to live 11/05/2023 Education Answer Date [...] CDT Ancillary Procedure Department of Ophthalmology in [address] [phone] Kenya Garza M.D. [address] [place] [phone] 03/06/2024 8:00 AM CDT Ancillary Procedure Department of Ophthalmology in [address] [phone] Kenya Garza M.D. [address] [place] [phone] 03/06/2024 9:00 AM CDT Ancillary Procedure Department of Ophthalmology in [address] [phone] Kenya Garza M.D. [address] [place] [phone] 03/06/2024 12:00 PM CDT Office Visit Department of Ophthalmology in [address] [phone] Kenya Garza M.D. [address] [place] [phone] documented as of this encounter Procedures Procedure Name Priority Date/Time Associated Diagnosis Comments OPHTHALMOLOGY IMAGE EXAM Routine 12/17/2023 1:30 PM PROFESSOR CRIMINAL JUSTICE documented in this encounter Results * Visual Stewart (VF)-Ophthalmology Image Exam (12/17/2023 1:30 PM PROFESSOR CRIMINAL JUSTICE) 12/17/2023 1:27 PM PROFESSOR CRIMINAL JUSTICE Narrative [facility] - 12/17/2023 3:38 PM PROFESSOR CRIMINAL JUSTICE This order has been created and auto-finalized to support the import of images acquired without order. The clinical documentation to support these images can be found on the encounter that produced images. Provider Not In System IMG NON RAD IMAGI NG PROCEDURES [facility] NA documented in this encounter Visit Diagnoses Not on filedocumented in this encounter Care Teams Quality Control Associate Relationship Specialty Start Date End Date Elsewhere, Pcp PCP - General Internal Medicine 05/29/19 documented as of this encounter
--- OUTSIDE RECORDS SUMMARY | 2024-03-05 08:05 | XMS_ITS | Encounter Summary ---
Author Name Unknown Organization [facility] Address [address] [place] [address] Care Team Providers Care Prepared Foods Associate Name Role Phone Elsewhere, Pcp Primary Care Provider Unavailabl e Reason for Referral * MRI/CAT/PET Scan (Routine) - Closed Specialty Diagnoses / Procedures Referred By Apolinar lopez Referred To Contact Radiology Diagnoses Posterior Reversible Encephalopathy Syndrome Procedures MR Brain without and with IV Contrast Piter Baez M.D. [address] [place] [address] [facility] Referral ID Status Reason Start Date Expiration Date Visits Re quested Visits Authorized [id number] Closed 02/03/2024 10/27/2024 1 1 Reason for Visit * Reason Onset Date Comments Pre-visit Testing Orders 01/31/2024 Encounter Details Date Type Department Care Team (Latest Contact Info) Description 01/31/2024 Clinical Communication Department of Neurology in [place], [place] [address] [place] [phone] Piter Baez M.D. [address] [place] [phone] Pre-visit Testing Orders Social History Tobacco Use Types Packs/Day Years Used Date Smoking Tobacco: Light Smoker Cigarettes 0.5 44 Started: 02/26/1980 Smokeless Tobacco: Never Comments:On again off again Alcohol Use Standard Drinks/Week Comments Yes 0 (1 standard drink = 0.6 oz pur e alcohol) [facility] Utilities Answer Date Recorded In the past 12 months has th e electric, gas, oil, or water [employer] threatened to shut off services in your home? No 11/05/2023 Social Connection and Isolation Panel [NHANES] A nswer Date Recorded In a typical week, how many times do you talk on the phone with family, friends, or neighbors? Once a week 06/27/2020 How often do you get together with friends or re latives? Never 06/27/2020 How often do you attend synagogue or denominational serv ices? Never 06/27/2020 Do you belong to any clubs o r organizations such as synagogue groups, unions, fraternal or athletic groups, or [...] medical care, and heating? Somewhat hard 06/27/2020 [facility]at [facility] - Occupational Stress Questionnaire Answer Date [...] your living situation today? I have a [facility] place to live 11/05/2023 Education Answer [...] CDT Ancillary Procedure Department of Ophthalmology in [place], [place] [address] [place] [address] Kenya Garza M.D. [address] [place] [phone] 03/06/2024 8:00 AM CDT Ancillary Procedure Department of Ophthalmology in [place], [place] [address] [place] [address] Kenya Garza M.D. [address] [place] [phone] 03/06/2024 9:00 AM CDT Ancillary Procedure Department of Ophthalmology in [place], [place] [address] [place] [phone] Kenya Garza M.D. [address] [place] [address] 03/06/2024 12:00 PM CDT Office Visit Department of Ophthalmology in [place], [place] [address] [place] [address] Kenya Garza M.D. [address] [place] [phone] documented as of this encounter Results * MR Brain without [...] Diagnoses Diagnosis Posterior Reversible Encephalopathy Syndrome- Primary Posterior Reversible Encephalopathy Syndrome documented in this encounter Care Teams Prepared Foods Associate Relationship Specialty Start Date End Date Elsewhere, Pcp PCP - General Internal Medicine 05/29/19 documented as of this encounter
--- OUTSIDE RECORDS SUMMARY | 2024-03-05 08:05 | XMS_ITS | Encounter Summary ---
Author Name Unknown Organization [facility] Address [address] [place] [address] Care Team Providers Care Processor Grain Name Role Phone Elsewhere, Pcp Primary Care Provider Unavailabl e Reason for Referral * Outpatient (Routine) - Closed Specialty Diagnoses / Procedures Referred By Apolinar lopez Referred To Contact Ophthalmology Kenya Garza M.D. [address] [place] [address] [facility] Referral ID Status Reason Start Date Expiration Date Visits Re quested Visits Authorized [id number] Closed 01/01/2024 07/02/2025 1 1 ICAL CARE NURSE SPECIALIST Reason for Visit * Outpatient (Routine) - Closed Specialty Diagnoses / Procedures Referred By Apolinar lopez Referred To Contact Ophthalmology Diagnoses Panuveitis Right Kenya Garza M.D. [address] [place] [phone] [facility] Referral ID Status Reason Start Date Expiration Date Visits Re quested Visits Authorized [id number] Closed 12/17/2023 06/17/2025 1 1 Encounter Details Date Type Department Care Team (Latest Contact Info) Description 01/01/2024 12:45 PM CRITICAL CARE NURSE SPECIALIST Office Visit Department of Ophthalmology in [place], [place] [address] [place] [phone] Kenya Garza M.D. [address] [place] [address] [phone] Necrosis Retinal Acute Right (Primary Dx); Panuveitis Right Social History Tobacco Use Types Packs/Day Years Used Date Smoking Tobacco: Light Smoker Cigarettes 0.5 44 Started: 02/26/1980 Smokeless Tobacco: Never Comments:On again off again Alcohol Use Standard Drinks/Week Comments Yes 0 (1 standard drink = 0.6 oz pur e alcohol) [facility] Utilities Answer Date Recorded In [...] How often do you attend adventist or jew serv ices? Never 06/27/2020 Do you belong [...] medical care, and heating? Somewhat hard 06/27/2020 [facility] of Occupat ional Health - Occupational Stress [...] your living situation today? I have a [facility] place to live 11/05/2023 Education Answer [...] * Patient Instructions* Kenya Garza M.D. - 01/01/2024 12:45 PM CRITICAL CARE NURSE SPECIALIST Please continue the oral valacyclovir medication, 1000 mg tablet Take 1 tablet, three times per day. Decrease prednisone to 15 mg daily (one and 1/2 tablets of the 10mg tablets OR three 5 mg tablets) in the morning Eye drops, RIGHT eye Difluprednate (pink or white top) - 2 times per day. Use preservative free artificial tears 2-3x/day (Bio True or Refresh Relieva) Return to see Dr. Garza in about 3 weeks on 01/23/24 Call with questions or new symptoms: [phone] ICAL CARE NURSE SPECIALIST documented in this encounter Progress Notes * Kenya Garza M.D. - 01/01/2024 12:45 PM CST HPI - 11/05/23 Mrs. Alexandra Dixon is a 68 year old woman who is referred by Dr. Daisy Ivy for evaluation ofuveitis. She woke up with a red, painful, tearing right eye on 10/16/23. Was seen in urgent care on 10/19/23and diagnosed with pink eye, treated with tobramycin drops without improvement. She saw astronautical engineer Dr. Daisy Ivy on 10/23/23. 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 In August 2023, she was sent from an infusion center to [place] emergency department where shewas found to have oxygen saturations of 78%. CT imaging showed worsening bilateral ground glass opacities. A CT scan was negative for pulmonary embolism. She was transferred to [facility] for additional pulmonology care. On [...] times in the past three months: [place] (09/02/23 for hypercalcemiaand acute kidney injury - had CT chest/abdomen/pelvis to assess for malignancy), [facility] again. Each time she saw [...] plans to monitor. (Her oncologist is at [facility].) MEDICATIONS Prednisolone every hour while [...] shallow retinal detachment. No T sign noted. [facility] Macula OCT of the right eye [...] membranes. Possible posterior thickening. No T sign. [facility] HSV 2 PCR from anterior chamber [...] rule out shallow detachment vs subhyaloid opacities. SL PLAN: It has been 21 days since [...] fieldtoday even though her eyes are dilated. TODAY - 01/01/24 No changes in vision since last [...] involute The left eye has no inflammation. Macula OCT 01/01/24 of the right eye shows decreased thickening and choroidal undulations. The outer retinal structures are ratty and there are two subretinal deposits just temporal to the fovea. No subretinal fluid, just a small amount of peripapillary intraretinal fluid. The choroid is decreased inthickness vs 10/2023, but there are still undulations [...] decreased choroidal thickening. PLAN It has been 8 weeks since intravitreal [...] to reduce the risk of pneumocystis pneumonia. We previously discussed that the systemic antiviral reduces the risk of developing acute retinal necrosis in the left eye. We also discussed the significant amount of retinitis in the right eye and the high risk of retinal detachment. 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 Follow up in 3 weeks on 01/23/24 noon: [facility], [facility], dilate both eyes, [facility] ICAL CARE NURSE SPECIALIST documented in this encounter Plan of Treatment Upcoming Encounters Date Type Department Care Team (Late st Contact Info) Description 03/06/2024 7:30 AM CDT Ancillary Procedure Department of Ophthalmology in [place], [place] [address] [place] [phone] Kenya Garza M.D. [address] [place] [phone] 03/06/2024 8:00 AM CDT Ancillary Procedure Department of Ophthalmology in [place], [place] [address] [place] [phone] Kenya Garza M.D. [address] [place] [phone] 03/06/2024 9:00 AM CDT Ancillary Procedure Department of Ophthalmology in [place], [place] [address] [place] [phone] Kenya Garza M.D. [address] [place] [phone] 03/06/2024 12:00 PM CDT Office Visit Department of Ophthalmology in [place], [place] [address] [place] [phone] Kenya Garza M.D. [address] [place] [phone] Scheduled Referrals Name Type Priority Associated Diagnoses Order Schedule Ophthalmology office visit (clinic) Outpatient Referral Routine Expected: 01/23/2024, Expires: 12/31/2026 documented as of this encounter Visit Diagnoses Diagnosis Necrosis Retinal Acute Right- Primary Panuveitis Right documented in this encounter Care Teams Processor Grain Relationship Specialty Start Date End Date Elsewhere, Pcp PCP - General Internal Medicine 05/29/19 documented as of this encounter
--- OUTSIDE RECORDS SUMMARY | 2024-03-05 08:05 | XMS_ITS | Encounter Summary ---
Author Name Unknown Organization [facility] Address [address] [place] [address] Care Team Providers Care Sales Associate Name Role Phone Elsewhere, Pcp Primary Care Provider Unavailabl e Reason for Referral * Outpatient (Routine) - Closed Specialty Diagnoses / Procedures Referred By Apolinra lopez Referred To Contact Ophthalmology Kenya Garza M.D. 200 [place] [phone] [facility] Referral ID Status Reason Start Date Expiration Date Visits Re quested Visits Authorized [id number] Closed 12/02/2023 06/02/2025 1 1 ER FRAME BACK TENDER Reason for Visit * Reason Comments following up for my eyes * Outpatient (Routine) - Closed Specialty Diagnoses / Procedures Referred By Apolinar lopez Referred To Contact Ophthalmology Kenya Garza M.D. 200 [place] [phone] [facility] Referral ID Status Reason Start Date Expiration Date Visits Re quested Visits Authorized [id number] Closed 11/25/2023 05/26/2025 1 1 Encounter Details Date Type Department Care Team (Latest Contact Info) Description 12/02/2023 12:00 PM TENTER FRAME BACK TENDER Office Visit Department of Ophthalmology in [place], [place] [address] [place] [phone] Kenya Garza M.D. 200 [place] [phone] Panuveitis Right (Primary Dx); Necrosis Retinal Acute Right Social History Tobacco Use Types Packs/Day Years Used Date Smoking Tobacco: Light Smoker Cigarettes 0.5 44 Started: 02/26/1980 Smokeless Tobacco: Never Comments:On again off again Alcohol Use Standard Drinks/Week Comments Yes 0 (1 standard drink = 0.6 oz pur e alcohol) [facility] Utilities Answer Date Recorded In [...] How often do you attend synagogue or sabianist serv ices? Never 06/27/2020 Do [...] medical care, and heating? Somewhat hard 06/27/2020 [facility] of Occupat ional Health - Occupational Stress [...] your living situation today? I have a [facility] place to live 11/05/2023 Education Answer [...] * Patient Instructions* Kenya Garza M.D. - 12/02/2023 12:00 PM TENTER FRAME BACK TENDER Please continue the oral valacyclovir medication, 1000 mg tablet Take 1 tablet, three times per day. Continue prednisone 20 mg daily (2 tablets) in the morning Eye drops, RIGHT eye Difluprednate (pink or white top) - decrease to 3 times per day. Cyclopentolate (red top) - 1 time per day at bedtime Return to see Dr. Garza in about 2 weeks on 12/17/23 . Call with questions or new symptoms: [phone] ER FRAME BACK TENDER documented in this encounter Progress Notes * Kenya Garza M.D. - 12/02/2023 12:00 PM CST HPI - 11/05/23 Mrs. Alexandra Dixon is a 68 year old woman who is referred by Dr. Daisy Ivy for evaluation ofuveitis. She woke up with a red, painful, tearing right eye on 10/16/23. Was seen in urgent care on 10/19/23and diagnosed with pink eye, treated with tobramycin drops without improvement. She saw operation supervisor Dr. Daisy Ivy on 10/23/23. 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 In August 2023, she was sent from an infusion center to [place] emergency department where shewas found to have [...] three times in the past three months: [place] (09/02/23 for hypercalcemiaand acute kidney injury - [...] plans to monitor. (Her oncologist is at [facility] MEDICATIONS Prednisolone every hour while awake right [...] shallow retinal detachment. No T sign noted. [facility] Macula OCT of the right eye shows [...] membranes. Possible posterior thickening. No T sign. 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 [facility] HSV 2 PCR from anterior chamber tap [...] BID Start PO prednisone 20 mg daily TODAY - 12/02/23 She is not having any side effects from prednisone. In the house she can see objects a little better. MEDICATIONS Durezol QID right eye (started 11/13/23) Cyclopentolate BID, right eye Valacyclovir 1000 mg TID (started 11/06/23) Prednisone 20 mg daily (started 11/26/23) Status post intravitreal foscarnet & ganciclovir on 11/05/23 EXAM [facility] without correction HM and 20/30 (PH 20/20) ICare pressures 7 & 7 The right eye anterior chamber inflammation is [...] rule out shallow detachment vs subhyaloid opacities. 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 Dr. Cleemns agreed that the choroid looks suspicious, but the degree of anterior chamber and vitreous inflammation would be atypical for a choroidal lymphoma. If there continues to be clinical suspicion for lymphoma, then we will get an MRI of the orbits. PLAN It has been 27 days since intravitreal [...] eye Continue PO prednisone 20 mg daily Follow up in 2 weeks on 12/17/23 at 1:30 pm: [facility], [facility], trop both eyes, WMS ER FRAME BACK TENDER documented in this encounter Plan of Treatment Upcoming Encounters Date Type Department Care Team (Late st Contact Info) Description 03/06/2024 7:30 AM CDT Ancillary Procedure Department of Ophthalmology in [place], [place] [address] [place] [phone] Kenya Garza M.D. [address] [place] [phone] 03/06/2024 8:00 AM CDT Ancillary Procedure Department of Ophthalmology in [place], [place] [address] [place] [phone] Kenya Garza M.D. [address] [place] [phone] 03/06/2024 9:00 AM CDT Ancillary Procedure Department of Ophthalmology in [place], [place] [address] [place] [phone] Kenya Garza M.D. [address] [place] [phone] 03/06/2024 12:00 PM CDT Office Visit Department of Ophthalmology in [place], [place] [address] [place] [phone] Kenya Garza M.D. [address] [place] [phone] Scheduled Referrals Name Type Priority Associated Diagnoses Order Schedule Ophthalmology office visit (clinic) Outpatient Referral Routine Expected: 12/17/2023, Expires: 12/02/2026 documented as of this encounter Visit Diagnoses Diagnosis Panuveitis Right- Primary Necrosis Retinal Acute Right documented in this encounter Care Teams Sales Associate Relationship Specialty Start Date End Date Elsewhere, Pcp PCP - General Internal Medicine 05/29/19 documented as of this encounter
--- OUTSIDE RECORDS SUMMARY | 2024-03-05 08:05 | XMS_ITS | Encounter Summary ---
Author Name Unknown Organization [facility] Address [address] [place] [address] Care Team Providers Care Delphi Programmer Name Role Phone Elsewhere, Pcp Primary Care Provider Unavailabl e Reason for Referral * Outpatient (Routine) - Authorized Specialty Diagnoses / Procedures Referred By Apolinar lopez Referred To Contact Ophthalmology Diagnoses Panuveitis Right Necrosis Retinal Acute Right Kenya Garza M.D. [address] [place] [phone] [facility] Referral ID Status Reason Start Date Expiration Date V isits Requested Visits Authorized [id number] Authorized 02/20/2024 08/21/2025 1 1 Reason for Visit * Outpatient (Routine) - Closed Specialty Diagnoses / Procedures Referred By Apolinar lopez Referred To Contact Ophthalmology Diagnoses Panuveitis Right Necrosis Retinal Acute Right Kenya Garza M.D. [address] [place] [phone] [facility] Referral ID Status Reason Start Date Expiration Date Visits Re quested Visits Authorized [id number] Closed 01/23/2024 07/24/2025 1 1 Encounter Details Date Type Department Care Team (Latest Contact Info) Description 02/20/2024 11:15 AM CDT Office Visit Department of Ophthalmology in [place], [place] [address] [place] [phone] Kenya Garza M.D. [address] [place] [phone] Panuveitis Right (Primary Dx); Necrosis Retinal Acute Right Social History Tobacco Use Types Packs/Day Years Used Date Smoking Tobacco: Light Smoker Cigarettes 0.5 44 Started: 02/26/1980 Smokeless Tobacco: Never Comments:On again off again Alcohol Use Standard Drinks/Week Comments Yes 0 (1 standard drink = 0.6 oz pur e alcohol) [facility] Utilities Answer Date Recorded In the past 12 months has e electric, gas, oil, or water [employer] threatened to shut off services in your home? No 11/05/2023 Social Connection and Isolation Panel [NHANES] A nswer Date Recorded In a typical week, how many times do you talk on the phone with family, friends, or neighbors? Once a week 06/27/2020 How often do you get together with friends or re latives? Never 06/27/2020 How often do you attend restoration or presybeterian serv ices? Never 06/27/2020 Do you belong to any clubs o r organizations such as restoration groups, unions, fraternal or athletic groups, or [...] medical care, and heating? Somewhat hard 06/27/2020 [facility] [place] of Occupat ional Health - Occupational [...] your living situation today? I have a [facility] place to live 11/05/2023 Education Answer Date [...] CDT Ancillary Procedure Department of Ophthalmology in [place], [place] [address] [place] [phone] Kenya Garza M.D. [address] [place] [phone] 03/06/2024 8:00 AM CDT Ancillary Procedure Department of Ophthalmology in [place], [place] [address] [place] [phone] Kenya Garza M.D. [address] [place] [phone] 03/06/2024 9:00 AM CDT Ancillary Procedure Department of Ophthalmology in [place], [place] [address] [place] [phone] Kenya Garza M.D. [address] [place] [phone] 03/06/2024 12:00 PM CDT Office Visit Department of Ophthalmology in [place], [place] [address] [place] [phone] Kenya Garza M.D. [address] [place] [phone] Scheduled Orders Name Type Priority Associated Diagnoses Order Schedule B-Scan Ultrasound - OD - Right Eye Ophthalmology Routine Panuveitis Right Necrosis Retinal Acute Right 1 Occurrences starting 02/20/2024 until 05/21/2025 Ultrasound Biomicroscopy (UBM) - OD - Right Eye Ophthalmology Routine Panuveitis Right Necrosis Retinal Acute Right 1 Occurrences starting 02/20/2024 until 05/21/2025 Scheduled Referrals Name Type Priority Associated Diagnoses Order Schedule Ophthalmology office visit (clinic) Outpatient Referral Routine Panuveitis Right Necrosis Retinal Acute Right Expected: 03/06/2024, Expires: 02/19/2027 documented as of this encounter Visit Diagnoses Diagnosis Panuveitis Right- Primary Necrosis Retinal Acute Right documented in this encounter Care Teams Delphi Programmer Relationship Specialty Start Date End Date Elsewhere, Pcp PCP - General Internal Medicine 05/29/19 documented as of this encounter
--- OUTSIDE RECORDS SUMMARY | 2024-03-05 08:05 | XMS_ITS | Encounter Summary ---
Author Name Unknown Organization [facility] Address [address] [place] [address] Care Team Providers Care Microbiological Lab Technician Name Role Phone Elsewhere, Pcp Primary Care Provider Unavailabl e Reason for Referral * Outpatient (Routine) - Closed Specialty Diagnoses / Procedures Referred By Contac t Referred To Contact Neurology Piter Baez M.D. [address] [place] [address] [facility] Referral ID Status Reason Start Date Expiration Date Visits Re quested Visits Authorized [id number] Closed 02/20/2024 08/21/2025 1 1 Reason for Visit * Outpatient (Routine) - Closed Specialty Diagnoses / Procedures Referred By Contac t Referred To Contact Neurology Diagnoses Posterior Reversible Encephalopathy Syndrome Katerine Bashir M.D. [address] [place] [address] [facility] Referral ID Status Reason Start Date Expiration Date Visits Re quested Visits Authorized [id number] Closed 01/20/2024 07/21/2025 1 1 Encounter Details Date Type Department Care Team (Latest Contact Info) Description 02/20/2024 1:00 PM CDT Comprehensive Visit Department of Neurology in [place], [place] [address] [place] [phone] Piter Baez M.D. [address] [place] [phone] Posterior Reversible Encephalopathy Syndrome Social History Tobacco Use Types Packs/Day Years Used Date Smoking Tobacco: Light Smoker Cigarettes 0.5 44 Started: 02/26/1980 Smokeless Tobacco: Never Comments:On again off again Alcohol Use Standard Drinks/Week Comments Yes 0 (1 standard drink = 0.6 oz pur e alcohol) [facility] Utilities Answer Date Recorded In the past [...] Never 06/27/2020 How often do you attend congregation or restorationism serv ices? Never 06/27/2020 Do you belong to any clubs o r organizations such as congregation groups, unions, fraternal or athletic groups, or [...] care, and heating? Somewhat hard 06/27/2020 [facility] [place] of Occupat ional Health - Occupational Stress [...] today? I have a [facility] place to live 11/05/2023 Education Answer [...] PM CDT documented as of this encounter Last Filed Vital Signs Vital Sign Reading Time Taken Comments Blood Pressure - - Pulse - - Temperature - - Respiratory Rate - - Oxygen Saturation - - Inhaled Oxygen Concentration - - Weight 84 kg (185 lb 3 oz) 02/20/2024 12:43 PM C DT Height 166.6 cm (5' 5.59) 02/20/2024 12:43 PM C DT Body Mass Index 30.26 02/20/2024 12:43 PM CDT documented in this encounter Consult Notes * Piter Baez M.D. - 02/20/2024 1:00 PM CDT SUBJECTIVE CHIEF COMPLAINT / REASON FOR VISIT Alexandra Dixon is a 68 y.o. female who presents for evaluation of PRES. . Referring provider: Katerine Bashir M.D. [address] [place] [address] HISTORY OF PRESENT ILLNESS Pleasant 68-year-old right-handed woman accompanied by her who is referred by her PCP for an initial neurology evaluation regarding recent hospitalization elsewhere for PRES. She gets her ophthalmology care at [facility] by Dr. 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 She gets all of her care for other medical conditions in [place] and I do not have access to [facility] these records. Potentially relevant past medical issues include a pals nurse treating her with methotrexate for ???itchy bumps?? 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 She also has type 2 diabetes and COPD. Around 01/05/2024 he she began experiencing a dull posterior headache that persisted. 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 After that she has no recall, but her found her on the bathroom floor very confused. She was intubated in the ambulance, evaluated in the emergency room at [place] and taken by helicopter to [facility] in [place] where she was hospitalized until January 13. I have the discharge summary with a diagnosis of altered mental status attributed to PRES. We do not have her images available to review, but her 01/09/2024 MRI of the brain with a nd without contrast showed findings ???highly suggestive posterior reversible encephalopathy syndrome?? including T2/FLAIR signal abnormality in the bilateral occipital lobes and posterior parietal lobes and right greater than left cerebellum without associated hemorrhage, in addition to scatteredmild chronic microvascular ischemic changes, with no acute or subacute infarct. There was some hyperemia in the bilateral parietal occipital lobes. She was evidently in the ICU for a couple of days. Continuous EEG was negative for seizures. Lumbarpuncture showed red cells but was otherwise normal. It does not sound like she was hypertensive, orat least her blood pressure in the ED was 97/69. She was initially covered with empiric antibioticsbecause of a fever of 102.2 but that resolved and cultures came back negative. She required CPAP and Lasix for possible flash pulmonary edema and tachycardia after extubation, had Norvasc added for hypertension management in the hospital and was seen by Neurology with a suspicion for PRES. Her says that she proved clinically quite quickly in the hospital so that even a few days before discharge home on 01/14/2024 she had fully recovered. She has done well since then. She has not been having any headaches, cognitive or language symptoms, abnormal movements or seizure-like activity, or any new visual symptoms. Vision in the left eye is perfect and right eye vision is slowly improving and she feels is better since a month ago. She can see shadows and hand motion in the righteye but not count fingers. I have reviewed the problem list, allergies, medications, medical/surgical history, social history,and family history. REVIEW OF SYSTEMS REVIEW OF SYSTEMS OBJECTIVE PHYSICAL EXAM Normal conversational speech and language. Kokmen short test of mental status: 34/38, losing 1 point for current president and 3 points for delayed recall (quickly identifying them from multiple choice). Gait normal including toes, heels, tandem. Romberg negative. Cranial nerves: Pupils still dilated from drops in ophtho earlier, with no right and sluggish left pupil response to light. Right pupil larger. VA hand motion right eye. Unable to visualize optic disc on right, but left normal. Normal fixation, extraocular range, gaze holding, saccades, and pursuit. Poor convergence. Normal confrontation visual tim left eye. Strength normal throughout. Reflexes normal except moderately reduced ankle jerks. Plantars flexor. Tone, coordination, and rapid alternating movements normal except mildly slow left hand AMRs. Sensation: Normal pinprick in feet. Vibration present but mildly reduced at left more than right great toe. ASSESSMENT / PLAN #1 Posterior Reversible Encephalopathy Syndrome We had a detailed discussion. Based on these somewhat limited information available to me, it seemslikely that she developed a posterior headache, nausea/vomiting and then altered mental status as symptoms of developing PRES. MRI was apparently characteristic of this, and other studies like EEG and lumbar puncture did not reveal an alternative explanation. It is not immediately clear what the precipitating cause was. She was previously on methotrexate but it sounds like this was discontinued in August. She does have an ongoing inflammatory problem with her uveitis attributed to HSV 2. She apparently has a history of bullous pemphigoid. She has longstanding hypertension but it has not clear to me if this was a significant issue at the time of her hospitalization. Fortunately she has clinically recovered and has seems to have no residual neurologic symptoms. Apart from her impaired vision in the right eye, her neurologic exam looks quite normal other than somereduced distal reflexes and minor sensory loss that could relate to a mild diabetic neuropathy or just be normal for her. She mainly came today for a ???follow-up?? MRI because she wished to get her care here rather than[facility]ing [facility] the [facility]. We have scheduled an MRI for this afternoon but unfortunately do not yet have her prior scans for comparison. We will request them and need to compare them at a later date. I will plan to touch base with her by phone after we have that. Assuming that her imaging is also looking better, I do not anticipate need for any ongoing neurologic management. She is comfortablewith this plan. I spent a total of 92 minutes on the care for this patient today, including time with the patient and some or all of the following: reviewing labs, images, and prior notes, placing new orders, and documenting in the medical record. documented in this encounter Plan of Treatment Upcoming Encounters Date Type Department Care Team (Late st Contact Info) Description 03/06/2024 7:30 AM CDT Ancillary Procedure Department of Ophthalmology in [place], [place] [address] [place] [address] Kenya Garza M.D. [address] [place] [phone] 03/06/2024 8:00 AM CDT Ancillary Procedure Department of Ophthalmology in [place], [place] [address] [place] [phone] Kenya Garza M.D. [address] [place] [phone] 03/06/2024 9:00 AM CDT Ancillary Procedure Department of Ophthalmology in [place], [place] [address] [place] [phone] Kenya Garza M.D. [address] [place] [phone] 03/06/2024 12:00 PM CDT Office Visit Department of Ophthalmology in [place], [place] [address] [place] [phone] Kenya Garza M.D. [address] [place] [phone] Scheduled Referrals Name Type Priority Associated Diagnoses Orde r Schedule Neurology office visit (clinic) Outpatient Referral Routine Expected: 02/25/2024, Expires: 05/21/2025 documented as of this encounter Visit Diagnoses Diagnosis Posterior Reversible Encephalopathy Syndrome documented in this encounter Care Teams Microbiological Lab Technician Relationship Specialty Start Date End Date Elsewhere, Pcp PCP - General Internal Medicine 05/29/19 documented as of this encounter
--- OUTSIDE RECORDS SUMMARY | 2024-03-05 08:05 | XMS_ITS | Encounter Summary ---
Author Name Unknown Organization [facility] Address [address] [place] [address] Care Team Providers Care Procurement Professional Logistics Name Role Phone Elsewhere, Pcp Primary Care Provider Unavailabl e Encounter Details Date Type Department Care Team (Late st Contact Info) Description 01/01/2024 Ancillary Procedure Department of Ophthalmology Social History Tobacco Use Types Packs/Day Years Used Date Smoking Tobacco: Light Smoker Cigarettes 0.5 44 Started: 02/26/1980 Smokeless Tobacco: Never Comments:On again off again Alcohol Use Standard Drinks/Week Comments Yes 0 (1 standard drink = 0.6 oz pur e alcohol) [facility] Utilities Answer Date Recorded In the past 12 months has [employer], gas, oil, or water company threatened [...] How often do you attend judaism or taoist serv ices? Never 06/27/2020 Do you belong [...] medical care, and heating? Somewhat hard 06/27/2020 [facility] of Occupat ional [facility] - Occupational Stress Questionnaire Answer Date [...] living situation today? I have a [facility] place to live 11/05/2023 Education Answer [...] CDT Ancillary Procedure Department of Ophthalmology in [place], [place] [address] [place] [phone] Kenya Garza M.D. [address] [place] [phone] 03/06/2024 8:00 AM CDT Ancillary Procedure Department of Ophthalmology in [place], [place] [address] [place] [phone] Kenya Garza M.D. [address] [place] [phone] 03/06/2024 9:00 AM CDT Ancillary Procedure Department of Ophthalmology in [place], [place] [address] [place] [phone] Kenya Garza M.D. [address] [place] [phone] 03/06/2024 12:00 PM CDT Office Visit Department of Ophthalmology in [place], [place] [address] [place] [phone] Kenya Garza M.D. [address] [place] [phone] documented as of this encounter Procedures Procedure Name Priority Date/Time Associated Diagnosis Comments OPHTHALMOLOGY IMAGE EXAM Routine 01/01/2024 12:00 AM SUPERVISOR DYER documented in this encounter Results * Eyes Spectralis OCT-Ophthalmology Image Exam (01/01/2024 12:00 AM SUPERVISOR DYER) Narrative IIMS - 01/01/2024 12:37 PM SUPERVISOR DYER This order has been created and auto-finalized to support the import of images acquired without order. The clinical documentation to support these images can be found on the encounter that produced images. Provider Not In System IMG NON RAD IMAGI NG PROCEDURES IIMS NA documented in this encounter Visit Diagnoses Not on filedocumented in this encounter Care Teams Procurement Professional Logistics Relationship Specialty Start Date End Date Elsewhere, Pcp PCP - General Internal Medicine 05/29/19 documented as of this encounter
--- OUTSIDE RECORDS SUMMARY | 2024-03-05 08:06 | XMS_ITS | Encounter Summary ---
Author Name Unknown Organization [facility] Address [address] [place] [address] Care Team Providers Care Line Construction Supervisor Name Role Phone Elsewhere, Pcp Primary Care Provider Unavailabl e Reason for Referral * Outpatient (Routine) - Closed Specialty Diagnoses / Procedures Referred By Contac t Referred To Contact Cardiovascular Disease Diagnoses Coronary Artery Disease (Unspecified) Katerine Bashir M.D. [address] [place] [address] [facility] Referral ID Status Reason Start Date Expiration Date Visits Re quested Visits Authorized [id number] Closed 02/12/2019 02/12/2020 1 1 Encounter Details Date Type Department Care Team (Late st Contact Info) Description 02/12/2019 [facility] [address] [place] [address] Katerine Bashir M.D. [address] [place] [address] Coronary Artery Disease (Unspecified) (Primary [...] CDT Ancillary Procedure Department of Ophthalmology in [place], [place] [address] [place] [phone] Kenya Garza M.D. [address] [place] [phone] 03/06/2024 8:00 AM CDT Ancillary Procedure Department of Ophthalmology in [place], [place] [address] [place] [phone] Kenya Garza M.D. [address] [place] [phone] 03/06/2024 9:00 AM CDT Ancillary Procedure Department of Ophthalmology in [place], [place] [address] [place] [phone] Kenya Garza M.D. [address] [place] [phone] 03/06/2024 12:00 PM CDT Office Visit Department of Ophthalmology in [place], [place] [address] [place] [phone] Kenya Garza M.D. [address] [place] [phone] Scheduled Referrals Name Type Priority Associated Diagnoses [...] documented as of this encounter Care Teams Line Construction Supervisor Relationship Specialty Start Date End Date Elsewhere, Pcp PCP - General Internal Medicine 05/29/19 documented as of this encounter
--- OUTSIDE RECORDS SUMMARY | 2024-03-05 08:06 | XMS_ITS | Encounter Summary ---
Author Name Unknown Organization [facility] Address [address] [place] [address] Care Team Providers Care Senior Capital Markets Specialist Name Role Phone Elsewhere, Pcp Primary Care Provider Unavailabl e Encounter Details Date Type Department Care Team (Latest Contact Info) Description 11/05/2023 Clinical Communication Department of Ophthalmology in [place], [place] [address] [place] [phone] Kenya Garza M.D. [address] [place] [phone] Social History Tobacco Use Types Packs/Day Years Used Date Smoking Tobacco: Light Smoker Cigarettes 0.5 44 Started: 02/26/1980 Smokeless Tobacco: Never Comments:On again off again Alcohol Use Standard Drinks/Week Comments Yes 0 (1 standard drink = 0.6 oz pur e alcohol) [facility] Utilities Answer Date Recorded In the past 12 months has [employer], gas, oil, or water company threatened [...] How often do you attend buddhism or shinto serv ices? Never 06/27/2020 Do [...] medical care, and heating? Somewhat hard 06/27/2020 [facility] [place] of Occupat ional Health - Occupational Stress [...] your living situation today? I have a [facility] place to live 11/05/2023 Education Answer Date [...] CDT Ancillary Procedure Department of Ophthalmology in [place], [place] [address] [place] [phone] Kenya Garza M.D. [address] [place] [phone] 03/06/2024 8:00 AM CDT Ancillary Procedure Department of Ophthalmology in [place], [place] [address] [place] [phone] Kenya Garza M.D. [address] [place] [phone] 03/06/2024 9:00 AM CDT Ancillary Procedure Department of Ophthalmology in [place], [place] [address] [place] [phone] Kenya Garza M.D. [address] [place] [phone] 03/06/2024 12:00 PM CDT Office Visit Department of Ophthalmology in [place], [place] [address] [place] [phone] Kenya Garza M.D. [address] [place] [phone] documented as of this encounter Visit Diagnoses Not on filedocumented in this encounter Care Teams Senior Capital Markets Specialist Relationship Specialty Start Date End Date Elsewhere, Pcp PCP - General Internal Medicine 05/29/19 documented as of this encounter
--- OUTSIDE RECORDS SUMMARY | 2024-03-05 08:06 | XMS_ITS | Clinical Summary ---
Author Name Unknown Organization [facility] Address [place], [place] [address] Care Team Providers Care Enrollment Nurse Name Role Phone Easton Mccormick MD Unavailable [phone] Katerine Bashir MD Primary Care Provider + Allergies Active Allergy Reactions Criticality Noted Date Comments Wheeler Yefri Itching 09/11/2023 Medications Medication Sig Dispensed Refills Start Date End Date Status aspirin (ECOTRIN) 81 mg enteric coated tabletIndications:N on-ST elevation AK (NSTEMI) (HC) Take 1 tablet by mouth once daily with a meal. 0 11/30/2015 Active atorvastatin (LIPITOR) 40 mg tabletIndications:C oronary artery disease, angina presence unspecified, unspecified vessel or lesion type, unspecified whether [place] or transplanted heart Take 1 tablet by [...] Take 20 mg by mouth once daily. Active cholecalciferol (VITAMIN D3) 1,000 unit tablet Take 1,000 units by mouth once daily. Active fexofenadine (DINAH) 180 mg tablet Take 180 mg by mouth once daily if needed for Allergy Symptoms. Do not crush or chew. Active magnesium oxide (MAG-OX 400) 400 mg tablet Take 400 mg by mouth once daily. Active albuterol HFA (PRO-AIR; VENTOLIN; PROVENTIL) 90 mcg/actuation inhaler Inhale 2 Puffs by mouth every 4 hours if needed for Shortness Of Breath or Wheezing. Active difluprednate (DUREZOL) 0.05 % ophthalmic emulsion Place 1 Drop into right eye two times daily. Active albuterol-ipratropi um (DUONEB) (2.5-0.5 mg) in 3 mL NEBULIZATION solution Inhale 1 Neb via a nebulizer every 4 hours if needed for Shortness Of Breath or Wheezing. Active valACYclovir (VALTREX) 1 gram tablet Take 1 g by mouth three times daily. Active nitroglycerin (NITROSTAT) 0.4 mg sublingual bottle of [address] 0.4 mg under the tongue every 5 minutes if needed for Chest Pain. Up to 3 tablets in 15 minutes. Active carboxymethylcellul ose sodium (Artificial Tears, cmc,) 1 % drop Place 1 Drop into right eye three times daily. Active predniSONE (DELTASONE) 5 mg tabletIndications:I nterstitial pneumonia of both lungs (HC) Take 3 Tablets (15 mg) by mouth once daily with a meal. 01/14/2024 Active amLODIPine (NORVASC) 5 mg tabletIndications:H TN (hypertension) Take 1 Tablet (5 mg) by mouth once daily. 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 Morbid obesity 04/10/2010 Diabetes mellitus, type 2 HTN (hypertension) CAD (coronary artery disease) Hyperlipidemia LDL goal <70 Encounters Date Type Department Care Team Description 01/23/2024 Telephone [facility] [address] [place] [phone] Audrey Givens NP Appointment (Imaging and follow up with RAILROAD DETECTIVE ) 01/22/2024 Orders Only [facility] [address] [place] [address] Nicolle Flores MD <No scans attached> 01/08/2024 9:21 PM CDT - 01/14/2024 3:51 PM CDT Hospital Encounter [facility] [address] [place] [address] [facility], Hospitalist c Santi Mcwilliams MD Zamfirescu, Anca Ioana, MD 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); HTN (hypertension) Discharge Disposition: Home Self Care 01/08/2024 Travel from Last 3 Months Immunizations Name Administration [...] Sign Reading Time Taken Comments Blood Pressure 138/87 01/14/2024 3:00 AM CDT Pulse 80 01/14/2024 3:00 AM CDT Temperature 36.5 ??C (97.7 ??F) 01/14/2024 9:15 AM CD T Respiratory Rate 18 01/14/2024 3:00 AM CDT Oxygen Saturation 96% 01/14/2024 3:00 AM CDT Inhaled Oxygen Concentration - - Weight 76.7 kg (169 lb) 01/14/2024 6:00 AM CDT Height 168.2 cm (5' 6.22) 01/09/2024 9:00 AM CD T Body Mass Index 27.1 01/09/2024 9:00 AM CDT Plan of Treatment Health Maintenance Due Date [...] for age 65+ 2022 COVID-19 vaccine series (2022-24 season) 2023 07/18/2021, 02/14/2021, 01/24/2021 Influenza for age 65+ 06/28/2024 09/26/2016 , 08/26/2015, 08/03/2014, Additional history exists Tdap Completed 03/08/2009 Goals Goal Patient Goal Type Associated Problems Recent Progress Patient-Stated? Author BLOOD PRESSURE-MA INTAINS BP LESS THAN 130/80 Blood Pressure No Bailey Turpin NP Procedures Procedure Name Priority Date/Time Associated Diagnosis Comments GLUCOSE METER Timed 01/14/2024 12:46 PM CDT SCAN-CARDIAC STRIP 01/14/2024 10 :04 AM CDT GLUCOSE METER Timed 01/14/2024 7:42 AM CDT MAGNESIUM Early AM 01/14/2024 5:15 AM CDT PLATELET COUNT Early AM 01/14/2024 5:15 AM CDT POTASSIUM Early AM 01/14/2024 5:15 AM CDT SCAN-CARDIAC STRIP 01/14/2024 2: 38 AM CDT GLUCOSE METER Timed 01/13/2024 8:41 PM CDT GLUCOSE METER Timed 01/13/2024 4:36 PM CDT GLUCOSE METER Timed 01/13/2024 11:46 AM CDT POTASSIUM LIZZIE 01/13/2024 11:23 AM CDT SCAN-CARDIAC STRIP 01/13/2024 10 :50 AM CDT SCAN-CARDIAC STRIP 01/13/2024 10 :26 AM CDT SCAN-CARDIAC STRIP 01/13/2024 10 :26 AM CDT SCAN-CARDIAC STRIP 01/13/2024 10 :26 AM CDT EKG 12 LEAD Routine 01/13/2024 10:25 AM CDT GLUCOSE METER Timed 01/13/2024 7:37 AM CDT EXTRA TUBE LAVENDER Today 01/13/2024 5 :00 AM CDT BASIC METABOLIC PANEL Early AM 01/13/2024 5:00 AM CDT SCAN-CARDIAC STRIP 01/13/2024 12 :22 AM CDT GLUCOSE METER Timed 01/12/2024 9:14 PM CDT SCAN-CARDIAC STRIP 01/12/2024 8: 17 PM CDT GLUCOSE METER Timed 01/12/2024 4:29 PM CDT SCAN-CARDIAC STRIP 01/12/2024 3: 18 PM CDT POTASSIUM Timed 01/12/2024 12:40 PM CDT GLUCOSE METER Timed 01/12/2024 11:31 AM CDT ECHO TTE COMPLETE W CONTRAST Today 01/12/2024 10:18 AM CDT SCAN-CARDIAC STRIP 01/12/2024 10 :17 AM CDT XR CHEST 1 VIEW PORTABLE Early AM 01/12/2024 7:53 AM CDT GLUCOSE METER Timed 01/12/2024 7:40 AM CDT MAGNESIUM Early AM 01/12/2024 5:12 AM CDT BASIC METABOLIC PANEL Early AM 01/12/2024 5:12 AM CDT SCAN-CARDIAC STRIP 01/12/2024 2: 56 AM CDT GLUCOSE METER Timed 01/11/2024 9:06 PM CDT SCAN-CARDIAC STRIP 01/11/2024 8: 00 PM CDT GLUCOSE METER Timed 01/11/2024 4:57 PM CDT GLUCOSE METER Timed 01/11/2024 4:25 PM CDT EKG 12 LEAD LIZZIE 01/11/2024 3:54 PM CDT PRO-BNP Add On 01/11/2024 1:07 PM CDT POTASSIUM Timed 01/11/2024 1:07 PM CDT GLUCOSE METER Timed 01/11/2024 11:47 AM CDT SCAN-CARDIAC STRIP 01/11/2024 7: 56 AM CDT GLUCOSE METER Timed 01/11/2024 7:40 AM CDT CBC WITH AUTO DIFFERENTIAL Early AM 01/11/2024 4:59 AM CDT MAGNESIUM Timed 01/11/2024 4:59 AM CDT BASIC METABOLIC PANEL Early AM 01/11/2024 4:59 AM CDT CBC WITH AUTO DIFFERENTIAL Early AM 01/11/2024 4:59 AM CDT SCAN-CARDIAC STRIP 01/11/2024 12 :48 AM CDT XR CHEST 1 VIEW PORTABLE STAT 01/11/2024 12:00 AM CDT GLUCOSE METER Timed 01/10/2024 8:19 PM CDT SCAN-CARDIAC STRIP 01/10/2024 7: 18 PM CDT SCAN-CARDIAC STRIP 01/10/2024 5: 18 PM CDT GLUCOSE METER Timed 01/10/2024 3:43 PM CDT GLUCOSE METER Timed 01/10/2024 12:50 PM CDT MAGNESIUM Timed 01/10/2024 11:11 AM CDT SCAN CORRESP-EKG RESULTS 01/10/2024 10:17 AM CDT SCAN-CARDIAC STRIP 01/10/2024 8: 00 AM CDT GLUCOSE METER Timed 01/10/2024 7:31 AM CDT CBC WITH AUTO DIFFERENTIAL Early AM 01/10/2024 4:44 AM CDT ANCA PANEL FOR VASCULITIS Early AM 01/10/2024 4:44 AM CDT ANTINUCLEAR ANTIBODY BY IFA Early AM 01/10/2024 4:44 AM CDT COMP METABOLIC PANEL Early AM 01/10/2024 4:44 AM CDT CBC WITH AUTO DIFFERENTIAL Early AM 01/10/2024 4:44 AM CDT GLUCOSE METER Timed 01/10/2024 3:54 AM CDT POTASSIUM Timed 01/10/2024 2:06 AM CDT GLUCOSE METER Timed 01/10/2024 12:25 AM CDT SCAN-CARDIAC STRIP 01/10/2024 12 :00 AM CDT GLUCOSE METER Timed 01/09/2024 8:09 PM CDT POTASSIUM STAT 01/09/2024 5:21 PM CDT MAGNESIUM STAT 01/09/2024 5:21 PM CDT GLUCOSE METER Timed 01/09/2024 4:05 PM CDT XR ABDOMEN 1 VIEW PORTABLE STAT 01/09/2024 3:51 PM CDT SCAN-CARDIAC STRIP 01/09/2024 3: 35 PM CDT UA W/ SEDIMENT EXAM REFLEXED PER CRITERIA LIZZIE 01/09/2024 1:43 PM CDT GLUCOSE METER Timed 01/09/2024 11:24 AM CDT SPUTUM CULTURE, STAIN Today 01/09/2024 10:10 AM CDT BLOOD CULTURE Today 01/09/2024 9:50 AM CDT BLOOD CULTURE Today 01/09/2024 9:50 AM CDT SEDIMENTATION RATE LIZZIE 01/09/2024 9: 50 AM CDT RA QUANTITATIVE LIZZIE 01/09/2024 9:50 AM CDT C-REACTIVE PROTEIN Timed 01/09/2024 9: 50 AM CDT MAGNESIUM LIZZIE 01/09/2024 9:50 AM CDT VITAMIN B12 LIZZIE 01/09/2024 9:50 AM CDT TSH LIZZIE 01/09/2024 9:50 AM CDT AMMONIA Early AM 01/09/2024 8:09 AM CDT GLUCOSE METER Timed 01/09/2024 7:40 AM CDT SCAN-CARDIAC STRIP 01/09/2024 7: 15 AM CDT EXTRA TUBE BLUE Today 01/09/2024 6:58 AM CDT HEPATIC FUNCTION PANEL Early AM 01/09/2024 6:21 AM CDT PROCALCITONIN Early AM 01/09/2024 6:21 AM CDT CBC W PLT NO DIFF Early AM 01/09/2024 6:2 1 AM CDT BASIC METABOLIC PANEL Early AM 01/09/2024 6:21 AM CDT CK TOTAL Timed 01/09/2024 6:21 AM CDT TRIGLYCERIDES Timed 01/09/2024 6:21 AM CDT ISTAT EG6+ ABG Timed 01/09/2024 5:38 AM CDT DRUG SCREEN RAPID URINE INHOUSE Today 01/09/2024 3:01 AM CDT GLUCOSE METER Timed 01/09/2024 2:56 AM CDT SCAN-CARDIAC STRIP 01/09/2024 1: 18 AM CDT MR HEAD BRAIN WWO STAT 01/09/2024 12: 45 AM CDT SPINAL FLUID CULT, STAIN Today 01/08/2024 11:55 PM CDT MENINGITIS/ENCEPHALIT IS PATHOGEN PANEL, MULTIPLEX PCR (CSF) Today 01/08/2024 11:55 PM CDT PROTEIN CSF,TOTAL Today 01/08/2024 11: 55 PM CDT GLUCOSE,CSF Today 01/08/2024 11:55 PM CDT CSF CELL COUNT/DIFF Today 01/08/2024 1 1:55 PM CDT IR LUMBAR PUNCTURE DIAGNOSTIC STAT 01/08/2024 11:42 PM CDT GLUCOSE METER Timed 01/08/2024 11:09 PM CDT ISTAT EG6+ ABG Timed 01/08/2024 11:02 PM CDT PROTIME-INR STAT 01/08/2024 10:58 PM CDT PROCALCITONIN STAT 01/08/2024 10:58 PM CDT HEPATIC FUNCTION PANEL STAT 01/08/2024 10:58 PM CDT BASIC METABOLIC PANEL STAT 01/08/2024 10:58 PM CDT CBC W PLT NO DIFF STAT 01/08/2024 10: 58 PM CDT TROPONIN T (HS) ONE TIME Today 01/08/2024 10:58 PM CDT XR CHEST 1 VIEW PORTABLE LIZZIE 01/08/2024 9:59 PM CDT XR MAMMO BILAT SCREEN FFDM (IA) Routine 10/04/2016 9:00 AM DIRECTOR BANKING Visit for screening mammogram LIPID PANEL W REFLEX MEASURED LDL Routine 09/11/2016 9:26 AM DIRECTOR BANKING Hyperlipidemia, unspecified XR DXA BONE DENSITY 2 SITES AXIAL Routine 08/18/2015 9:25 AM CDT Screening for osteoporosis from Last 3 Months or Most Recently Relevant to Health Maintenance Results * (ABNORMAL) GLUCOSE METER (01/14/2024 12:46 PM CDT) Only the most recent of27 resultswithin the time period is included. [facility] METER 221(H) 65 - 100 mg/dL 01/14/2024 12:49 PM CDT [facility] Blood BLOOD SPECIMEN / Unknown 01/14/2024 12:46 PM CDT 01/14/2024 12:49 PM CDT Ines Lee MD CHEMISTRY Performing Organization Address City/[facility] [address]/ZIP Co de Phone Number [facility] SENDOUT INTERNAL ZIP [phone] [place] [id number] * SCAN-CARDIAC STRIP (01/14/2024 10:04 AM CDT) Scanner OTHER * PLATELET COUNT (01/14/2024 5:15 AM CDT) PLATELET COUNT 189 140 - 440 thou/cu mm 01/14/2024 6:02 AM CDT [facility] MPV 10.6 6.5 - 11.0 fL 01/14/2024 6:02 AM CDT [facility] Blood BLOOD SPECIMEN / Unknown Venipuncture / Unknown 01/14/2024 5:15 AM CDT 01/14/2024 5:46 AM CDT Santi Elmore MD HEMATOLOGY Performing Organization Address [facility] [address]/[facility] Co de Phone Number [facility] SENDOUT INTERNAL ZIP [phone] [place] [id number] * POTASSIUM (01/14/2024 5:15 AM CDT) Only the most recent of6 resultswithin the time period is included. POTASSIUM 3.9 3.5 - 5.1 mmol/L 01/14/2024 6:15 AM CDT [facility] Blood BLOOD SPECIMEN / Unknown Venipuncture / Unknown 01/14/2024 5:15 AM CDT 01/14/2024 5:46 AM CDT Ines Lee MD CHEMISTRY Performing Organization Address City/[facility] [address]/ZIP Co de Phone Number [facility] SENDOUT INTERNAL ZIP [phone] [place] [address] * MAGNESIUM (01/14/2024 5:15 AM CDT) Only the most recent of6 resultswithin the time period is included. Pathologist [facility] MAGNESIUM 2.1 1.6 - 2.4 mg/dL 01/14/2024 6:15 AM CDT [facility] Blood BLOOD SPECIMEN / Unknown Venipuncture / Unknown 01/14/2024 5:15 AM CDT 01/14/2024 5:46 AM CDT Anca Wandy Lee MD CHEMISTRY [facility] SENDOUT INTERNAL ZIP [phone] [place] [address] * SCAN-CARDIAC STRIP (01/14/2024 2:38 AM CDT) Scanner OTHER * SCAN-CARDIAC STRIP (01/13/2024 10:50 AM CDT) Scanner OTHER * SCAN-CARDIAC STRIP (01/13/2024 10:26 AM CDT) Scanner OTHER * SCAN-CARDIAC STRIP (01/13/2024 10:26 AM CDT) Scanner OTHER * SCAN-CARDIAC STRIP (01/13/2024 10:26 AM CDT) Scanner OTHER * EKG 12 LEAD (01/13/2024 10:25 AM CDT) Only the most recent of2 resultswithin the time period is included. Pathologist [facility] Interpretation Sinus rhythm with short CA with occasional Premature ventricular complexes Septal infarct (cited on or before 11-JAN-2024) Abnormal ECG When compared with ECG of 11-JAN-2024 15:54, QRS axis Shifted left QT has shortened BEYOND NOW Ventricular Rate 65 BPM BEYOND NOW Atrial Rate 65 BPM BEYOND NOW P-R Interval 94 ms BEYOND NOW QRS Duration 86 ms BEYOND NOW QT 390 ms BEYOND NOW QTc 405 ms BEYOND NOW P Garwin -21 degrees BEYOND NOW R Gar[place] 3 degrees BEYOND NOW T Garwin 75 degrees BEYOND NOW 01/13/2024 10:2 5 AM CDT 01/14/2024 2:27 PM CDT Latoya Schmitt RAILROAD DETECTIVE EKG ORD BEYOND NOW [place], [place] * EXTRA TUBE LAVENDER (01/13/2024 5:00 AM CDT) Blood BLOOD SPECIMEN / Unknown Extra Tube / Unknown 01/13/2024 5:00 AM CDT 01/13/2024 5:24 AM CDT Doctor Unknown LABORATORY [facility] SENDOUT INTERNAL ZIP [phone] [place] [address] * (ABNORMAL) BASIC METABOLIC PANEL (01/13/2024 5:00 AM CDT) Only the most recent of5 resultswithin the time period is included. SODIUM 135(L) 136 - 145 mmol/L 01/13/2024 5:52 AM T [facility] POTASSIUM 01/13/2024 5:52 AM T [facility] Comment:Canceled- Specimen H emolyzed, Disposition Per Policy CHLORIDE 92(L) 98 - 107 mmol/L 01/13/2024 5:52 AM T [facility] CO2,TOTAL 27 22 - 29 mmol/L 01/13/2024 5:52 AM T [facility] ANION GAP 16 5 - 18 01/13/2024 5:52 AM T [facility] GLUCOSE 151(H) 70 - 99 mg/dL 01/13/2024 5:52 AM T [facility] CALCIUM 10.4(H) 8.8 - 10.2 mg/dL 01/13/2024 5:52 AM T [facility] BUN 38(H) 8 - 23 mg/dL 01/13/2024 5:52 AM T [facility] CREATININE 0.91(H) 0.50 - 0.90 mg/dL 01/13/2024 5:52 AM T [facility] BUN/CREAT RATIO 42(H) 10 - 20 5:52 AM CDT [facility] eGFR 70(L) >90 mL/min/1.7 3m2 01/13/2024 5:52 AM CDT [facility] Comment:As of 2022, eG FR is calculated by the CKD-EPI creatinine equation without race adjustment. ??eGFR can be influenced by muscle mass, exercise, and diet. ??The reported eGFR is an estimation only and is only applicable if the renal function is stable. Blood BLOOD SPECIMEN / Unknown Venipuncture / Unknown 01/13/2024 5:00 AM CDT 01/13/2024 5:19 AM CDT Anca Wandy Lee MD CHEMISTRY [facility] SENDOUT INTERNAL ZIP [phone] [place] [address] * SCAN-CARDIAC STRIP (01/13/2024 12:22 AM CDT) Scanner OTHER * SCAN-CARDIAC STRIP (01/12/2024 8:17 PM CDT) Scanner OTHER * SCAN-CARDIAC STRIP (01/12/2024 3:18 PM CDT) Scanner OTHER * ECHO TTE COMPLETE W CONTRAST (01/12/2024 10:18 AM CDT) EJECTION FRACTION 50-55% PROSOLV Anatomical Region Laterality Modality Ultrasound 01/12/2024 8:26 AM CDT Narrative 01/12/2024 12:01 PM CDT [facility] [address] [address] Main: [email or web address] ? Transthoracic Echo Report MAYA, BREEZY Excellian ID: [id number] Age: 68 : 1955 Ordering Provider: ROSIE JUNE Exam Date: 01/12/2024 08:26 Gender: F Portfolio Strategist: ANDREWS Height: 66 in BSA: 1.87 m?? BP: 106 / 47 Weight: 171 lbs BMI: 27.6 kg/m?? HR: 68 Location: Inpatient (Portable) Rhythm: Sinus Arrhythmia Procedure Components: 2D imaging with contrast, Color Doppler, Spectral Doppler Indications: Congestive Heart Failure Technical Quality: Fair Contrast: Definity Constrast Dose (ml): .15 [facility]#: [id number] Final Conclusion 1. Normal left ventricular chamber size. Low normal left ventricular systolic function with beat to beat variability due to ectopy. Estimated left ventricular ejection fraction is 50-55%. ??Mildly increased left ventricular wall thickness. No regional wall motion abnormalities. 2. Normal right ventricular chamber size. Borderline decreased right ventricular systolic function. 3. Findings consistent with normal left ventricular filling pressure. 4. No significant valvular heart disease. 5. Normal inferior vena cava with normal inspiratory collapse. 6. There were no prior studies available for comparison. Estimated EF: 50-55% FINDINGS Left Ventricle Normal left ventricular chamber size. Low normal left ventricular systolic function with beat to beat variability due to ectopy. Estimated left ventricular ejection fraction is 50-55%. ??Mildly increased left ventricular wall thickness. No regional wall motion abnormalities. Diastolic Function Findings consistent with normal left ventricular filling pressure. Right Ventricle Normal right ventricular chamber size. Borderline decreased right ventricular systolic function. Right ventricular systolic pressure cannot be estimated due to inability to detect peak tricuspid regurgitation Doppler velocity. Left Atrium Normal left atrial size. Left atrial volume index is 25 ml/m??. Right Atrium Normal right atrial size. Atrial Septum No evidence of inter-atrial shunt by color flow Doppler. Aortic Valve Normal trileaflet aortic valve. Aortic valve sclerosis without stenosis. No aortic valve regurgitation. Mitral Valve Mildly thickened mitral valve. Trivial mitral valve regurgitation. Tricuspid Valve Normal tricuspid valve. Trivial tricuspid valve regurgitation. Pulmonic Valve Normal pulmonary valve. Trivial pulmonary valve regurgitation. Pericardium No pericardial effusion. Aorta Normal ascending aorta dimension (2.9 cm). Inferior Vena Cava Normal inferior vena cava with normal inspiratory collapse. MEASUREMENTS ??(Male / Female) Normal Values 2D MEASUREMENTS AND LV FUNCTION IVS Diastolic Thickness ? 1.1 cm ?< 1.1 cm / < 1.0 cm LV Diastolic Diameter PLAX ?4.9 cm ?4.2 - 5.9 / 3.9 - 5.3 cm LV Diastolic Diameter Index ? 2.62 cm/m?? LVPW Diastolic Thickness ?1.1 cm ?< 1.1 cm / < 1.0 cm LV Systolic Diameter PLAX ? 3.9 cm LV Systolic Diameter Index ?2.08 cm/m?? LVOT Diameter ? 2 cm LVOT Cardiac Output ? 4 l/min LVOT Cardiac Index ?2.09 l/min??m?? LVOT Stroke Volume ?58.9 ml Stroke Volume Index ? 30.7 ml/m?? LV Ejection Fraction MOD BP ? 50.1 % ?>= 55 ??% LA Area 4C View ? 16.8 cm?? LA Length 4C ?5.41 cm LA Area 2C View ? 17.7 cm?? LA Length 2C ?5.17 cm LA Volume MOD BP ?46.7 ml LA Volume Index MOD BP ?25 ml/m?16 - 34 ml/m?? RV Diastolic Basal Diameter ? 2.9 cm RV Diastolic Mid Diameter ? 2 cm LV Mass ? 200 g LV Mass Index ? 105 g/m?? Ascending Aorta Diameter(s) ? 2.9 cm Ascending Aorta Index ? 1.55 cm/m?? M MODE TAPSE MM ?1.19 cm DIASTOLOGY Mitral E Point Velocity ? 0.438 m/sec ? 0.70 - 1.02 m/sec Mitral A Point Velocity ? 0.517 m/sec ? 0.06 - 1.06 m/sec Mitral E to A Ratio ? 0.847 ? 1.1 - 2.1 MV Deceleration Time ?207 msec ?167 - 231 msec LV E' Lateral Velocity ?0.0705 m/sec Mitral E to LV E' Lateral Ratio ?? 6.22 LV E' Septal Velocity ? 0.0511 m/sec Mitral E to LV E' Septal Ratio ?8.58 AORTIC VALVE AV Peak Velocity ?1.25 m/sec ?< 2.0 m/sec AV Peak Gradient ?6.29 mmHg AV Mean Gradient ?3.4 mmHg AV Velocity Time Integral ? 22.1 cm LVOT Peak Velocity ?1.13 m/sec LVOT Velocity Time Integral ? 18.7 cm AV Area Cont Eq vti ? 2.67 cm?? AV Area Cont Eq pk ?2.83 cm?? AV Dimensionless Index ?0.849 MITRAL VALVE MV Pressure Half Time ? 60.7 msec MV Area PHT ? 3.63 cm?? TRICUSPID VALVE AND ESTIMATED PRESSURES Right Atrial Pressure ? 3 mmHg PULMONIC VALVE PV Peak Velocity ?0.758 m/sec Ginger Loredo MD [facility] Accredited Site (Electronically Signed) Final Date: 12 January 2024 12:01 ICD-10 Codes: 428 Procedure Note Ginger Loredo MD - 01/12/2024 [facility] [place] [address] Main: [email or web address] Transthoracic Echo Report BREEZY TREJO Makenna ID: [id number] Age: 68 : 1955 Ordering Provider:ORSIE JUNE Exam Date: 01/12/2024 08:26 Gender: F Portfolio Strategist: ANDREWS Height: 66 in BSA: 1.87 m?? BP: 106 / 47 Weight: 171 lbs BMI: 27.6 kg/m?? HR: 68 Location: Inpatient (Portable) Rhythm: Sinus Arrhythmia Procedure Components: 2D imaging with contrast, Color Doppler, SpectralDoppler Indications: Congestive Heart Failure Technical Quality: Fair Contrast: Definity Constrast Dose (ml): .15 [facility]#: [id number] Final Conclusion 1. Normal left ventricular chamber size. Low normal left ventricularsystolic function with beat to beat variability due to ectopy. Estimated left ventricular ejection fraction is 50-55%. Mildly increasedleft ventricular wall thickness. No regional wall motion abnormalities. 2. Normal right ventricular chamber size. Borderline decreased rightventricular systolic function. 3. Findings consistent with normal left ventricular filling pressure. 4. No significant valvular heart disease. 5. Normal inferior vena cava with normal inspiratory collapse. 6. There were no prior studies available for comparison. Estimated EF: 50-55% FINDINGS Left Ventricle Normal left ventricular chamber size. Low normal leftventricular systolic function with beat to beat variability due to ectopy. Estimated left ventricular ejection fraction is 50-55%.Mildly increased left ventricular wall thickness. No regional wall motion abnormalities. Diastolic Function Findings consistent with normal left ventricularfilling pressure. Right Ventricle Normal right ventricular chamber size. Borderlinedecreased right ventricular systolic function. Right ventricular systolic pressure cannot be estimated due to inability to detect peaktricuspid regurgitation Doppler velocity. Left Atrium Normal left atrial size. Left atrial volume index is 25ml/m??. Right Atrium Normal right atrial size. Atrial Septum No evidence of inter-atrial shunt by color flow Doppler. Aortic Valve Normal trileaflet aortic valve. Aortic valve sclerosiswithout stenosis. No aortic valve regurgitation. Mitral Valve Mildly thickened mitral valve. Trivial mitral valveregurgitation. Tricuspid Valve Normal tricuspid valve. Trivial tricuspid valveregurgitation. Pulmonic Valve Normal pulmonary valve. Trivial pulmonary valveregurgitation. Pericardium No pericardial effusion. Aorta Normal ascending aorta dimension (2.9 cm). Inferior Vena Cava Normal inferior vena cava with normal inspiratorycollapse. MEASUREMENTS (Male / Female) Normal Values 2D MEASUREMENTS AND LV FUNCTION IVS Diastolic Thickness 1.1 cm < 1.1 cm / < 1.0cm LV Diastolic Diameter PLAX 4.9 cm 4.2 - 5.9 / 3.9 -5.3 cm LV Diastolic Diameter Index 2.62 cm/m?? LVPW Diastolic Thickness 1.1 cm < 1.1 cm / < 1.0cm LV Systolic Diameter PLAX 3.9 cm LV Systolic Diameter Index 2.08 cm/m?? LVOT Diameter 2 cm LVOT Cardiac Output 4 l/min LVOT Cardiac Index 2.09 l/min??m?? LVOT Stroke Volume 58.9 ml Stroke Volume Index 30.7 ml/m?? LV Ejection Fraction MOD BP 50.1 % >= 55 % LA Area 4C View 16.8 cm?? LA Length 4C 5.41 cm LA Area 2C View 17.7 cm?? LA Length 2C 5.17 cm LA Volume MOD BP 46.7 ml LA Volume Index MOD BP 25 ml/m?? 16 - 34 ml/m?? RV Diastolic Basal Diameter 2.9 cm RV Diastolic Mid Diameter 2 cm LV Mass 200 g LV Mass Index 105 g/m?? Ascending Aorta Diameter(s) 2.9 cm Ascending Aorta Index 1.55 cm/m?? M MODE TAPSE MM 1.19 cm DIASTOLOGY Mitral E Point Velocity 0.438 m/sec 0.70 - 1.02m/sec Mitral A Point Velocity 0.517 m/sec 0.06 - 1.06m/sec Mitral E to A Ratio 0.847 1.1 - 2.1 MV Deceleration Time 207 msec 167 - 231 msec LV E' Lateral Velocity 0.0705 m/sec Mitral E to LV E' Lateral Ratio 6.22 LV E' Septal Velocity 0.0511 m/sec Mitral E to LV E' Septal Ratio 8.58 AORTIC VALVE AV Peak Velocity 1.25 m/sec < 2.0 m/sec AV Peak Gradient 6.29 mmHg AV Mean Gradient 3.4 mmHg AV Velocity Time Integral 22.1 cm LVOT Peak Velocity 1.13 m/sec LVOT Velocity Time Integral 18.7 cm AV Area Cont Eq vti 2.67 cm?? AV Area Cont Eq pk 2.83 cm?? AV Dimensionless Index 0.849 MITRAL VALVE MV Pressure Half Time 60.7 msec MV Area PHT 3.63 cm?? TRICUSPID VALVE AND ESTIMATED PRESSURES Right Atrial Pressure 3 mmHg PULMONIC VALVE PV Peak Velocity 0.758 m/sec Ginger Loredo MD [facility] Accredited Site (Electronically Signed) Final Date: 12 January 2024 12:01 ICD-10 Codes: 428 Rosie June [employer] ECHO ORD * SCAN-CARDIAC STRIP (01/12/2024 10:17 AM CDT) Scanner OTHER * XR CHEST 1 VIEW PORTABLE (01/12/2024 7:53 AM CDT) Only the most recent of3 resultswithin the time period is included. Anatomical Region Laterality Modality HEART, THORAX, CHEST Computed Ra diography 01/12/2024 7:53 AM CDT Impressions 01/12/2024 8:03 AM CDT Pulmonary venous hypertension and interstitial edema have improved, but not completely resolved, suggesting improving congestive heart failure or fluid overload. Remainder unchanged. Sternotomy with CABG and ostial markers. Calcified aortic atherosclerosis. Narrative 01/12/2024 8:03 AM CDT For Patients: As a result of the Cures Act, medical imaging exams and procedure reports are released immediately into your electronic medical record. You may view this report before your referring provider. If you have questions, please contact your health care provider. EXAM: XR CHEST 1 VIEW PORTABLE LOCATION: [facility] DATE: 01/12/2024 INDICATION: Shortness of breath COMPARISON: 01/10/2024 Procedure Note Franck Hill MD - 01/12/2024 For Patients: As a result of the Cures Act, medical imagingexams and procedure reports are released immediately into your electronicmedical record. You may view this report before your referring provider.If you have questions, please contact your health care provider. EXAM: XR CHEST 1 VIEW PORTABLE LOCATION: [facility] DATE: 01/12/2024 INDICATION: Shortness of breath COMPARISON: 01/10/2024 IMPRESSION: Pulmonary venous hypertension and interstitial edema have improved, butnot completely resolved, suggesting improving congestive heart failure orfluid overload. Remainder unchanged. Sternotomy with CABG and ostialmarkers. Calcified aortic atherosclerosis. Ines Lee MD GENERAL IMAGING * SCAN-CARDIAC STRIP (01/12/2024 2:56 AM CDT) Scanner OTHER * SCAN-CARDIAC STRIP (01/11/2024 8:00 PM CDT) Scanner OTHER * (ABNORMAL) PRO-BNP (01/11/2024 1:07 PM CDT) PRO-BNP 2,530(H) <125 pg/mL 01/11/2024 3:11 PM CDT [facility] Blood BLOOD SPECIMEN / Unknown Line/Port / Unknown 01/11/2024 1:07 PM CDT 01/11/2024 1:10 PM CDT Narrative [facility] - 01/11/2024 3:11 PM CDT The following cut-points have been suggested for [...] 72% for acute congestive heart failure. ? Anca Wandy Lee MD SEND OUTS [facility] SENDOUT INTERNAL ZIP [phone] [place] [address] * SCAN-CARDIAC STRIP (01/11/2024 7:56 AM CDT) Scanner OTHER * (ABNORMAL) CBC WITH AUTO DIFFERENTIAL (01/11/2024 4:59 AM CDT) Only the most recent of2 resultswithin the time period is included. WHITE BLOOD COUNT 7.5 4.5 - 11.0 thou/cu mm 01/11/2024 5:19 AM [facility] RED BLOOD COUNT 3.98(L) 4.00 - 5.20 mil/cu mm 01/11/2024 5:19 AM [facility] HEMOGLOBIN 12.5 12.0 - 16.0 g/dL 01/11/2024 5:19 AM [facility] HEMATOCRIT 37.4 33.0 - 51.0 % 01/11/2024 5:19 AM T [facility] MCV 94 80 - 100 fL 01/11/2024 5:19 AM [facility] MCH 31.4 26.0 - 34.0 pg 01/11/2024 5:19 AM [facility] MCHC 33.4 32.0 - 36.0 g/dL 01/11/2024 5:19 AM [facility] RDW 19.3(H) 11.5 - 15.5 % 01/11/2024 5:19 AM [facility] PLATELET COUNT 130(L) 140 - 440 thou/cu mm 01/11/2024 5:19 AM [facility] MPV 10.8 6.5 - 11.0 fL 01/11/2024 5:19 AM CDT [facility] NRBC 0.3 % 01/11/2024 5:19 AM [facility] ABS NRBC 0.0 thou /cu mm 01/11/2024 5:19 AM CDT [facility] % NEUT 37.8 % 01/11/2024 5:19 AM CDT [facility] % LYMPH 47.7 % 01/11/2024 5:19 AM CDT [facility] % MONO 10.5 % 01/11/2024 5:19 AM CDT [facility] % EOS 1.1 % 01/11/2024 5:19 AM CDT [facility] % BASO 0.8 % 01/11/2024 5:19 AM CDT [facility] % IMMATURE GRAN (METAS,MYELOS,CA OS) 2.1 % 01/11/2024 5:19 AM CDT [facility] ABSOLUTE NEUTROPHILS 2.8 1.7 - 7.0 thou/cu mm 01/11/2024 5:19 AM CDT [facility] ABSOLUTE LYMPHOCYTES 3.6(H) 0.9 - 2.9 thou/cu mm 01/11/2024 5:19 AM CDT [facility] ABSOLUTE MONOCYTES 0.8 <0.9 thou/cu mm 01/11/2024 5:19 AM CDT [facility] ABSOLUTE EOSINOPHILS 0.1 <0.5 thou/cu mm 01/11/2024 5:19 AM CDT [facility] ABSOLUTE BASOPHILS 0.1 <0.3 thou/cu mm 01/11/2024 5:19 AM CDT [facility] ABSOLUTE IMMATURE GRANULOCYTES(MET ,MYELOS,PROS) 0.2 <0.3 thou/cu mm 01/11/2024 5:19 AM CDT [facility] Blood BLOOD SPECIMEN / Unknown Venipuncture / Unknown 01/11/2024 4:59 AM CDT 01/11/2024 5:08 AM CDT Tea Garcia MD HEMATOLOGY [facility] SENDOUT INTERNAL ZIP [phone] [place] [address] * SCAN-CARDIAC STRIP (01/11/2024 12:48 AM CDT) Scanner OTHER * SCAN-CARDIAC STRIP (01/10/2024 7:18 PM CDT) Scanner OTHER * SCAN-CARDIAC STRIP (01/10/2024 5:18 PM CDT) Scanner OTHER * SCAN CORRESP-EKG RESULTS (01/10/2024 10:17 AM CDT) Narrative 01/10/2024 10:17 AM CDT Ordered by an unspecified provider. Other Clinical Staff OTHER * SCAN-CARDIAC STRIP (01/10/2024 8:00 AM CDT) Scanner OTHER * ANTINUCLEAR ANTIBODY BY IFA (01/10/2024 4:44 AM CDT) ANTINUCLEAR ANTIBODY (ANKITA) Negative Negative 01/13/2024 1:11 PM CDT [facility] Blood BLOOD SPECIMEN / Unknown Venipuncture / Unknown 01/10/2024 4:44 AM CDT 01/10/2024 5:16 AM CDT Narrative [facility] - 01/13/2024 1:11 PM CDT Method: ANKITA screen performed by (IFA) on HEP-2 substrate, IgG Nicolle Flores MD CHEMISTRY Performing Organization Address [facility] [address]/[facility] Co de Phone Number [facility] [address] [place] [address], * ANCA PANEL FOR VASCULITIS (01/10/2024 4:44 AM CDT) Pathologist [facility] ANCA Negative Negative 01/14/2024 11:09 AM CDT [facility] Comment: Atypical ANCA cannot be ruled out due to presence of ANKITA on screening.?? ANKITA screen results are not valid for diagnosis of Autoimmune Disease.?? Order ANKITA testing for further evaluation as clinically indicated. Blood BLOOD SPECIMEN / Unknown Venipuncture / Unknown 01/10/2024 4:44 AM CDT 01/10/2024 5:16 AM CDT Nicolle Flores MD SEND OUTS Performing Organization Address City/[facility] [address]/ZIP Co de Phone Number [facility] [address] [place] [address], [place] * (ABNORMAL) COMP METABOLIC PANEL (01/10/2024 4:44 AM CDT) Pathologist [facility] SODIUM 141 136 - 145 mmol/L 01/10/2024 5:43 AM CDT [facility] POTASSIUM 4.3 3.5 - 5.1 mmol/L 01/10/2024 5:43 AM CDT [facility] CHLORIDE 107 98 - 107 mmol/L 01/10/2024 5:43 AM [facility] CO2,TOTAL 24 22 - 29 mmol/L 01/10/2024 5:43 AM [facility] ANION GAP 10 5 - 18 01/10/2024 5:43 AM [facility] GLUCOSE 217(H) 70 - 99 mg/dL 01/10/2024 5:43 AM [facility] CALCIUM 8.0(L) 8.8 - 10.2 mg/dL 01/10/2024 5:43 AM [facility] BUN 15 8 - 23 mg/dL 01/10/2024 5:43 AM [facility] CREATININE 0.73 0.50 - 0.90 mg/dL 01/10/2024 5:43 AM [facility] BUN/CREAT RATIO 21(H) 10 - 20 5:43 AM [facility] eGFR >90 >90 mL/min/1.7 3m2 01/10/2024 5:43 AM [facility] Comment:As of 2022, eG FR is calculated by the CKD-EPI creatinine equation without race adjustment. ??eGFR can be influenced by muscle mass, exercise, and diet. ??The reported eGFR is an estimation only and is only applicable if the renal function is stable. ALBUMIN 3.3(L) 4.0 - 4.9 g/dL 01/10/2024 5:43 AM [facility] PROTEIN,TOTAL 5.1(L) 6.0 - 8.0 g/dL 01/10/2024 5:43 AM [facility] BILIRUBIN,TOTAL 0.6 0.0 - 1.2 mg/dL 01/10/2024 5:43 AM [facility] ALK PHOSPHATASE 53 35 - 104 IU/L 01/10/2024 5:43 AM [facility] ALT (SGPT) 14 10 - 35 IU/L 01/10/2024 5:43 AM [facility] AST (SGOT) 19 10 - 35 IU/L 01/10/2024 5:43 AM [facility] Blood BLOOD SPECIMEN / Unknown Venipuncture / Unknown 01/10/2024 4:44 AM CDT 01/10/2024 5:15 AM CDT Tea Garcia MD CHEMISTRY [facility] SENDOUT INTERNAL ZIP [phone] [place] [address] * SCAN-CARDIAC STRIP (01/10/2024 12:00 AM CDT) Scanner OTHER * XR ABDOMEN 1 VIEW PORTABLE (01/09/2024 3:51 PM CDT) Anatomical Region Laterality Modality Abdomen Computed Radiogr aphy 01/09/2024 3:51 PM CDT Impressions 01/09/2024 3:59 PM CDT Enteric tube tip projects in the expected location of the gastric body/antrum. Relative paucity of gas in the expected location of the bowel. This is a nonspecific pattern. No free air. Median sternotomy. Surgical clips project over the lower chest. Narrative 01/09/2024 3:59 PM CDT For Patients: As a result of the Cures Act, medical imaging exams and procedure reports are released immediately into your electronic medical record. You may view this report before your referring provider. If you have questions, please contact your health care provider. EXAM: XR ABDOMEN 1 VIEW PORTABLE LOCATION: [facility] DATE: 01/09/2024 INDICATION: Tube placement COMPARISON: None. Procedure Note So, Geoff Corona MD - 01/09/2024 For Patients: As a result of the s Act, medical imagingexams and procedure reports are released immediately into your electronicmedical record. You may view this report before your referring provider.If you have questions, please contact your health care provider. EXAM: XR ABDOMEN 1 VIEW PORTABLE LOCATION: [facility] DATE: 01/09/2024 INDICATION: Tube placement COMPARISON: None. IMPRESSION: Enteric tube tip projects in the expected location of the gastricbody/antrum. Relative paucity of gas in the expected location of thebowel. This is a nonspecific pattern. No free air. Median sternotomy.Surgical clips project over the lower chest. Ines Lee MD GENERAL IMAGING * SCAN-CARDIAC STRIP (01/09/2024 3:35 PM CDT) Scanner OTHER * (ABNORMAL) UA W/ SEDIMENT EXAM REFLEXED PER CRITERIA (01/09/2024 1:43 PM CDT) COLOR Yellow Yellow Color 01/09/2024 2:03 PM CDT [facility] CLARITY Clear Clear Clarity 01/09/2024 2:03 PM CDT [facility] SPECIFIC GRAVITY,URINE 1.015 1.010, 1.015, 1.020, 1.025 01/09/2024 2:03 PM CDT [facility] PH,URINE 5.5 6.0, 7.0, 8.0, 5.5, 6.5, 7.5, 8.5 01/09/2024 2:03 PM CDT [facility] UROBILINOGEN, QUALITATIVE Normal Normal EU/dl 01/09/2024 2:03 PM CDT [facility] PROTEIN, URINE Trace(A) Negative mg/dL 01/09/2024 2:03 PM CDT [facility] GLUCOSE, URINE Negative Negative mg/dL 01/09/2024 2:03 PM CDT [facility] KETONES,URINE Negative Negative mg/dL 01/09/2024 2:03 PM CDT [facility] BILIRUBIN,URI NE Negative Negative 01/09/2024 2:03 PM CDT [facility] OCCULT BLOOD,URINE Negative Negative 01/09/2024 2:03 PM CDT [facility] NITRITE Negative Negative 01/09/2024 2:03 PM CDT [facility] LEUKOCYTE ESTERASE Negative Negative 01/09/2024 2:03 PM CDT [facility] Urine URINE SPECIMEN / Unknown Non-Blood / Unknown 01/09/2024 1:43 PM CDT 01/09/2024 1:52 PM CDT Nicolle Flores MD URINE [facility] SENDOUT INTERNAL ZIP [phone] [place] [address] * SPUTUM CULTURE, STAIN (01/09/2024 10:10 AM CDT) CULTURE Usual geovanni 01/11/2024 9:18 AM CDT [facility] GRAM STAIN 3+ PMNs 01/11/2024 9:18 AM CDT [facility] GRAM STAIN Gram Positive Cocci 01/11/2024 9:18 AM CDT [facility] GRAM STAIN RBCs 01/11/2024 9:18 AM CDT [facility] GRAM STAIN 1+ Epithelial cells 01/11/2024 9:18 AM CDT [facility] GRAM STAIN Gram stain performed by [place], [place] 01/11/2024 9:18 AM CDT [facility] Sputum SPECIMEN FROM ENDOTRACHEAL TUBE / Unknown Non-Blood / Unknown 01/09/2024 10:10 AM CDT 01/09/2024 10:36 AM CDT Nicolle Flores MD MICROBIOLOGY Performing Organization Address City/[facility] [address]/ZIP Co de Phone Number [facility] [address] [place] [address], [facility] SENDOUT INTERNAL ZIP [phone] [place] [address] * SEDIMENTATION RATE (01/09/2024 9:50 AM CDT) SEDIMENTATION RATE 4 <30 mm/hr 2023 10:14 AM CDT [facility] Blood BLOOD SPECIMEN / Unknown Butterfly / Unknown 01/09/2024 9:50 AM CDT 01/09/2024 9:54 AM CDT Nicolle Flores MD HEMATOLOGY [facility] SENDOUT INTERNAL ZIP [phone] [place] [address] * BLOOD CULTURE (01/09/2024 9:50 AM CDT) Only the most recent of2 resultswithin the time period is included. CULTURE No Growth. 01/13/2024 4:25 PM CDT [facility] Blood BLOOD SPECIMEN / Unknown Butterfly / Unknown 01/09/2024 9:50 AM CDT 01/09/2024 9:54 AM CDT Nicolle Flores MD MICROBIOLOGY [facility] [address] [place] [address], * TSH (01/09/2024 9:50 AM CDT) Pathologist [facility] TSH 0.58 0.27 - 4.20 uIU/mL 01/09/2024 11:43 AM CDT [facility] Blood BLOOD SPECIMEN / Unknown Butterfly / Unknown 01/09/2024 9:50 AM CDT 01/09/2024 9:55 AM CDT Narrative [facility] - 01/09/2024 11:43 AM CDT In Adults, TSH values between 5.00 and 10.00 uIU/ml do not necessarily indicate the presence of Hypothyroidism. Correlation with clinical findings such as presence of goiter and/or Thyroperoxidase (TPO) Antibody may be helpful. For more information please refer to RADHA 2004; 291: 228-238. Nicolle Flores MD CHEMISTRY [facility] SENDOUT INTERNAL ZIP [phone] [place] [address] * RA QUANTITATIVE (01/09/2024 9:50 AM CDT) Pathologist [facility] RHEUMATOID FACTOR,QUANT <10.00 <14.00 IU/mL 01/09/2024 4:13 PM CDT [facility] Blood BLOOD SPECIMEN / Unknown Butterfly / Unknown 01/09/2024 9:50 AM CDT 01/09/2024 9:55 AM CDT Nicolle Flores MD SEND OUTS [facility] [address] [place] [address], * (ABNORMAL) C-REACTIVE PROTEIN (01/09/2024 9:50 AM CDT) [facility] C-REACTIVE PROTEIN 11.2(H) <0.5 mg/dL 01/09/2024 11:43 AM CDT [facility] Blood BLOOD SPECIMEN / Unknown Butterfly / Unknown 01/09/2024 9:50 AM CDT 01/09/2024 9:55 AM CDT Nicolle Flores MD CHEMISTRY [facility] SENDOUT INTERNAL ZIP [phone] [place] [address] * VITAMIN B12 (01/09/2024 9:50 AM CDT) VITAMIN B12 525 232 - 1,245 pg/mL 01/09/2024 3:57 PM CDT [facility] Blood BLOOD SPECIMEN / Unknown Butterfly / Unknown 01/09/2024 9:50 AM CDT 01/09/2024 9:55 AM CDT [facility] - 01/09/2024 3:57 PM CDT Biotin supplements may cause clinically significant interference for this test assay. ??If interference is suspected, it is strongly recommended that biotin is discontinued for at least one week prior to retesting. Nicolle Flores MD CHEMISTRY [facility] [address] [place] [address], * AMMONIA (01/09/2024 8:09 AM CDT) AMMONIA 44 16 - 60 umol/L 01/09/2024 8:47 AM CDT [facility] Blood BLOOD SPECIMEN / Unknown Venipuncture / Unknown 01/09/2024 8:09 AM CDT 01/09/2024 8:18 AM CDT [facility] - 01/09/2024 8:47 AM CDT 1. ??Sulfasalazine and its metabolite Sulfapyridine at therapeutic concentrations may lead to falsely low results. 2. ??Temozolomide and its metabolite MTIC may lead to falsely elevated results, and its metabolite AIC may lead to falsely low results. Santi Elmore MD CHEMISTRY [facility] SENDOUT INTERNAL ZIP [phone] [place] [address] * SCAN-CARDIAC STRIP (01/09/2024 7:15 AM CDT) Scanner OTHER * EXTRA TUBE BLUE (01/09/2024 6:58 AM CDT) Blood BLOOD SPECIMEN / Unknown Extra Tube / Unknown 01/09/2024 6:58 AM CDT 01/09/2024 6:58 AM CDT Doctor Unknown LABORATORY Performing Organization Address [facility] [address]/ZIP Co de Phone Number [facility] SENDOUT INTERNAL ZIP [phone] [place] [address] * PROCALCITONIN (01/09/2024 6:21 AM CDT) Only the most recent of2 resultswithin the time period is included. PROCALCITONIN 0.12 ng/ml 01/09/2024 7:32 AM CDT [facility] Blood BLOOD SPECIMEN / Unknown Venipuncture / Unknown 01/09/2024 6:21 AM CDT 01/09/2024 6:43 AM CDT Narrative [facility] - 01/09/2024 7:32 AM CDT Procalcitonin for initial assessment of Lower Respiratory [...] any concentrations < 2 ng/mL are obtained. Santi Elmore MD SEND OUTS [facility] SENDOUT INTERNAL [facility] [phone] [place] [address] * (ABNORMAL) CBC W PLT NO DIFF (01/09/2024 6:21 AM CDT) Only the most recent of2 resultswithin the time period is included. WHITE BLOOD COUNT 7.9 4.5 - 11.0 thou/cu mm 01/09/2024 6:55 AM CDT [facility] RED BLOOD COUNT 4.56 4.00 - 5.20 mil/cu mm 01/09/2024 6:55 AM CDT [facility] HEMOGLOBIN 14.4 12.0 - 16.0 g/dL 01/09/2024 6:55 AM CDT [facility] HEMATOCRIT 43.7 33.0 - 51.0 % 01/09/2024 6:55 AM T [facility] MCV 96 80 - 100 fL 01/09/2024 6:55 AM CDT [facility] MCH 31.6 26.0 - 34.0 pg 01/09/2024 6:55 AM CDT [facility] MCHC 33.0 32.0 - 36.0 g/dL 01/09/2024 6:55 AM CDT [facility] RDW 19.6(H) 11.5 - 15.5 % 01/09/2024 6:55 AM CDT [facility] PLATELET COUNT 146 140 - 440 thou/cu mm 01/09/2024 6:55 AM CDT [facility] MPV 10.3 6.5 - 11.0 fL 01/09/2024 6:55 AM CDT [facility] NRBC 0.0 % 01/09/2024 6:55 AM CDT [facility] ABS NRBC 0.0 thou /cu mm 01/09/2024 6:55 AM CDT [facility] Blood BLOOD SPECIMEN / Unknown Venipuncture / Unknown 01/09/2024 6:21 AM CDT 01/09/2024 6:44 AM CDT Santi Elmore MD HEMATOLOGY [facility] SENDOUT INTERNAL ZIP [phone] [place] [address] * TRIGLYCERIDES propofol (01/09/2024 6:21 AM CDT) TRIGLYCERIDES 118 <150 mg/dL 01/09/2024 7:22 AM CDT [facility] PROVIDER ORDERED STATUS RANDOM 01/09/2024 7:22 AM CDT [facility] Blood BLOOD SPECIMEN / Unknown Venipuncture / Unknown 01/09/2024 6:21 AM CDT 01/09/2024 6:43 AM CDT Santi Elmore MD CHEMISTRY [facility] SENDOUT INTERNAL ZIP [phone] [place] [address] * CK TOTAL propofol (01/09/2024 6:21 AM CDT) CK,TOTAL 35 26 - 192 IU/L 01/09/2024 7:22 AM CDT [facility] Blood BLOOD SPECIMEN / Unknown Venipuncture / Unknown 01/09/2024 6:21 AM CDT 01/09/2024 6:43 AM CDT Santi Elmore MD CHEMISTRY Performing Organization Address City/[facility] [address]/ZIP Co de Phone Number [facility] SENDOUT INTERNAL ZIP [phone] [place] [address] * (ABNORMAL) HEPATIC FUNCTION PANEL (01/09/2024 6:21 AM CDT) Only the most recent of2 resultswithin the time period is included. ALBUMIN 3.6(L) 4.0 - 4.9 g/dL 01/09/2024 7:22 AM CDT [facility] PROTEIN,TOTAL 5.3(L) 6.0 - 8.0 g/dL 01/09/2024 7:22 AM T [facility] BILIRUBIN,TOTAL 1.4(H) 0.0 - 1.2 mg/dL 01/09/2024 7:22 AM CDT [facility] BILIRUBIN,DIRECT 0.3 0.0 - 0.3 mg/dL 01/09/2024 7:22 AM T [facility] BILIRUBIN,INDIRE CT 1.1(H) 0.2 - 0.8 mg/dL 01/09/2024 7:22 AM CDT [facility] ALK PHOSPHATASE 58 35 - 104 IU/L 01/09/2024 7:22 AM CDT [facility] ALT (SGPT) 17 10 - 35 IU/L 01/09/2024 7:22 AM CDT [facility] AST (SGOT) 23 10 - 35 IU/L 01/09/2024 7:22 AM CDT [facility] Blood BLOOD SPECIMEN / Unknown Venipuncture / Unknown 01/09/2024 6:21 AM CDT 01/09/2024 6:43 AM CDT Santi Elmore MD CHEMISTRY Performing Organization Address City/[facility] [address]/ZIP Co de Phone Number [facility] SENDOUT INTERNAL ZIP [phone] [place] [id number] * (ABNORMAL) ISTAT EG6+ ABG (01/09/2024 5:38 AM CDT) Only the most recent of2 resultswithin the time period is included. PH, ARTERIAL 7.37 7.35 - 7.45 01/09/2024 5:41 AM CDT [facility] PCO2, ARTERIAL 42 32 - 45 mmHg 01/09/2024 5:41 AM T [facility] PO2, ARTERIAL 126(H) 83 - 108 mmHg 01/09/2024 5:41 AM CDT [facility] HCO3, ARTERIAL 23 21 - 28 mmol/L 01/09/2024 5:41 AM T [facility] BASE EXCESS, ARTERIAL -2.0 -2.0 - 3.0 01/09/2024 5:41 AM T [facility] O2 SATURATION, ARTERIAL 98 94 - 98 % 01/09/2024 5:41 AM T [facility] SODIUM, POCT 01/09/2024 5:41 AM T [facility] Comment:Unable to determine. POTASSIUM, POCT 5:41 AM T [facility] Comment:Unable to determine. INSPIRED O2,ISTAT 50.0 01/09/2024 5:41 AM T [facility] PATIENT TEMPERATURE 38.9 Degrees C 01/09/2024 5:41 AM T [facility] CARRINGTON'S TEST Not Given 01/09/2024 5:41 AM T [facility] SAMPLE TYPE,ISTAT BLOOD GAS ARTERIAL 01/09/2024 5:41 AM T [facility] Blood BLOOD SPECIMEN / Unknown 01/09/2024 5:38 AM CDT 01/09/2024 5:41 AM CDT [facility] Lee MD CHEMISTRY [facility] SENDOUT [place]IP [phone] [place] [id number] * DRUG SCREEN RAPID URINE INHOUSE (01/09/2024 3:01 AM CDT) THC METABOLITES,NANCI L Not Detected Not Detected 01/09/2024 3:28 AM [facility] PCP,QUAL Not Detected Not Detected 01/09/2024 3:28 AM [facility] COCAINE,QUAL Not Detected Not Detected 01/09/2024 3:28 AM [facility] METHAMPHETAMINE , QUALITATIVE Not Detected Not Detected 01/09/2024 3:28 AM [facility] OPIATES,QUAL Not Detected Not Detected 01/09/2024 3:28 AM [facility] AMPHETAMINE, QUALITATIVE Not Detected Not Detected 01/09/2024 3:28 AM [facility] BENZODIAZEPINES ,QUAL Not Detected Not Detected 01/09/2024 3:28 AM [facility] TRICYCLICS,QUAL Not Detected Not Detected 01/09/2024 3:28 AM [facility] METHADONE, QUALITATIVE Not Detected Not Detected 01/09/2024 3:28 AM [facility] BARBITURATES,QU AL Not Detected Not Detected 01/09/2024 3:28 AM [facility] OXYCODONE, QUALITATIVE Not Detected Not Detected 01/09/2024 3:28 AM [facility] BUPRENORPHINE, QUALITATIVE Not Detected Not Detected 01/09/2024 3:28 AM [facility] Urine URINE SPECIMEN / Unknown Non-Blood / Unknown 01/09/2024 3:01 AM CDT 01/09/2024 3:07 AM [facility] - 01/09/2024 3:28 AM T Please Note: ?? This is a screening test only, all results are unconfirmed and should be used for medical purposes only. ??Unconfirmed results must not be used for non-medical purposes (e.g., employment testing, legal testing). ??Suggest analyte specific confirmation for all non-negative results. ??Specimens will be held for 24 hours if additional testing is needed. ?? The following threshold concentrations are used for this analysis: ? Drug ? Screening Threshold ? Buprenorphine ? 10 ng/mL PCP ? 25 ng/mL ?? THC Metabolites ? 50 ng/mL *Opiates ? 100 ng/mL Oxycodone ?100 ng/mL Cocaine ?150 ng/mL Benzodiazepines ?150 ng/mL ?? Methadone ?200 ng/mL ?? Barbiturates ? 200 ng/mL Tricyclic Antidepressants ?300 ng/mL ?? Amphetamines ? 500 ng/mL ?? Methamphetamines ? 500 ng/mL ?*Includes related compounds: ? Codeine ?50 ng/mL ? Heroin ?100 ng/mL ? Morphine ?100 ng/mL ? Hydrocodone ? 400 ng/mL ? Hydromorphone ? 800 ng/mL ?Venlafaxine (Effexor) is a known cross reactant in the PCP ?assay. ??If clinically indicated, order PCP confirmation. Santi Elmore MD URINE [facility] SENDOUT [address] [phone] [place] [address] * SCAN-CARDIAC STRIP (01/09/2024 1:18 AM CDT) Scanner OTHER * MR BRAIN W/WO CONTRAST (01/09/2024 12:45 AM CDT) Anatomical Region Laterality Modality BRAIN, HEAD Magnetic Resonan ce 01/09/2024 12:4 5 AM CDT Impressions 01/09/2024 1:17 AM CDT 1. ??Findings highly suggestive of posterior reversible encephalopathy syndrome (PRES) as described in detail above. No associated hemorrhage. 2. ??Minimal age-related changes. Narrative 01/09/2024 1:17 AM CDT For Patients: As a result of the Cures Act, medical imaging exams and procedure reports are released immediately into your electronic medical record. You may view this report before your referring provider. If you have questions, please contact your health care provider. EXAM: MR HEAD BRAIN WWO LOCATION: [facility] DATE: 01/09/2024 INDICATION: Neuro deficit, acute, stroke suspected COMPARISON: 01/08/[address] CONTRAST: Clariscan 15 ml TECHNIQUE: Routine multiplanar multisequence head MRI without and with intravenous contrast. FINDINGS: INTRACRANIAL CONTENTS: No acute or subacute infarct. There is abnormal T2/FLAIR signal abnormality in the bilateral occipital lobes and posterior parietal lobes and right greater than left cerebellum. No associated hemorrhage. Scattered nonspecific T2/FLAIR hyperintensities within the cerebral white matter most consistent with mild chronic microvascular ischemic change. Normal ventricles and sulci. Normal position of the cerebellar tonsils. There is some hyperemia in the bilateral parietal occipital lobes. SELLA: Empty sella morphology with flattening of the pituitary gland along the sellar floor. OSSEOUS STRUCTURES/SOFT TISSUES: Normal marrow signal. The major intracranial vascular flow voids are maintained. ORBITS: No abnormality accounting for technique. SINUSES/MASTOIDS: Moderate mucosal thickening scattered about the paranasal sinuses. Air-fluid level left maxillary sinus. Complete/near complete opacification of the left mastoid air cells. No apparent mass in the posterior nasopharynx or skull base. Procedure Note Hiram Ontiveros MD - 01/09/2024 For Patients: As a result of the Cures Act, medical imagingexams and procedure reports are released immediately into your electronicmedical record. You may view this report before your referring provider.If you have questions, please contact your health care provider. EXAM: MR HEAD BRAIN WWO LOCATION: [facility] DATE: 01/09/2024 INDICATION: Neuro deficit, acute, stroke suspected COMPARISON: 01/08/[address] CONTRAST: Clariscan 15 ml TECHNIQUE: Routine multiplanar multisequence head MRI without and withintravenous contrast. FINDINGS: INTRACRANIAL CONTENTS: No acute or subacute infarct. There is abnormalT2/FLAIR signal abnormality in the bilateral occipital lobes and posteriorparietal lobes and right greater than left cerebellum. No associatedhemorrhage. Scattered nonspecific T2/FLAIR hyperintensities within thecerebral white matter most consistent with mild chronic microvascularischemic change. Normal ventricles and sulci. Normal position of thecerebellar tonsils. There is some hyperemia in the bilateral parietaloccipital lobes. SELLA: Empty sella morphology with flattening of the pituitary gland alongthe sellar floor. OSSEOUS STRUCTURES/SOFT TISSUES: Normal marrow signal. The majorintracranial vascular flow voids are maintained. ORBITS: No abnormality accounting for technique. SINUSES/MASTOIDS: Moderate mucosal thickening scattered about theparanasal sinuses. Air-fluid level left maxillary sinus. Complete/nearcomplete opacification of the left mastoid air cells. No apparent mass inthe posterior nasopharynx or skull base. IMPRESSION: 1. Findings highly suggestive of posterior reversible encephalopathysyndrome (PRES) as described in detail above. No associated hemorrhage. 2. Minimal age-related changes. Santi Elmore MD MR * MENINGITIS/ENCEPHALITIS PATHOGEN PANEL, MULTIPLEX PCR (CSF) (01/08/2024 11:55 PM CDT) Escherichia coli NOT Detected NOT Detected 01/09/2024 9:19 AM CDT [facility] Haemophilus influenza NOT Detected NOT Detected 01/09/2024 9:19 AM CDT [facility] Listeria monocytogenes NOT Detected NOT Detected 01/09/2024 9:19 AM CDT [facility] Neisseria meningitides NOT Detected NOT Detected 01/09/2024 9:19 AM CDT [facility] Streptococcus agalactiae NOT Detected NOT Detected 01/09/2024 9:19 AM CDT [facility] Streptococcus pneumoniae NOT Detected NOT Detected 01/09/2024 9:[address] [facility] Cytomegalovirus NOT Detected NOT Detected 01/09/2024 9:19 AM CDT [facility] Enterovirus NOT Detected NOT Detected 01/09/2024 9:19 AM CDT [facility] Herpes simplex virus 1 NOT Detected NOT Detected 01/09/2024 9:19 AM CDT [facility] Herpes simplex virus 2 NOT Detected NOT Detected 01/09/2024 9:19 AM CDT [facility] Human herpesvirus 6 NOT Detected NOT Detected 01/09/2024 9:19 AM CDT [facility] Human parechovirus NOT Detected NOT Detected 01/09/2024 9:19 AM CDT [facility] Varicella zoster virus NOT Detected NOT Detected 01/09/2024 9:19 AM CDT [facility] Cryptococcus neoformans/gattii NOT Detected NOT Detected 01/09/2024 9:19 AM CDT [facility] Cerebrospinal Fluid CEREBROSPINAL FLUID SPECIMEN / Unknown Non-Blood / Unknown 01/08/2024 11:55 PM CDT 01/08/2024 11:58 PM [facility]T [facility] 01[facility]09[facility]20[facility] 9:19 AM CDT This test detects the presence of nucleic acids of above viral/bacterial targets. NOT Detected (negative) results do not rule out the presence of active central nervous system infection in patients with high risk of meningitis or encephalitis. Negative results should be interpreted in conjunction with patient's clinical context and applicable treatment history. False negative results may occur when the nucleic acid concentration in the specimen is below the limit of detection for the test. Santi Elmore MD MICROBIOLOGY [facility] [address] [address], * SPINAL FLUID CULT, STAIN (01/08/2024 11:55 PM CDT) CULTURE No Growth. 01/14/2024 11:10 AM CDT [facility] GRAM STAIN 2+ PMNs 01/14/2024 11:10 AM CDT [facility] GRAM STAIN No Epithelial cells 01/14/2024 11:10 AM CDT [facility] GRAM STAIN 3+ RBCs 01/14/2024 11:10 AM CDT [facility] GRAM STAIN No organisms seen 01/14/2024 11:10 AM CDT [facility] GRAM STAIN Gram stain performed by [place], [place] 01/14/2024 11:10 AM CDT [facility] Cerebrospinal Fluid CEREBROSPINAL FLUID SPECIMEN / Unknown Non-Blood / Unknown 01/08/2024 11:55 PM CDT 01/08/2024 11:58 PM CDT Santi Elmore MD MICROBIOLOGY [facility] [address] [address], [facility] SENDOUT INTERNAL ZIP [phone] [place] [phone] * (ABNORMAL) CSF CELL COUNT/DIFF (01/08/2024 11:55 PM CDT) TUBE NUMBER Four 01/09/2024 1:33 AM CDT [facility] CSF COLOR Colorless Colorless 01/09/2024 1:33 AM CDT [facility] CSF CLARITY Clear Clear 01/09/2024 1:33 AM CDT [facility] TOTAL NUCLEATED CELLS, CSF 5 <=25 /cu mm 01/09/2024 1:33 AM CDT [facility] RED BLOOD COUNT, CSF 172(H) <10 /cu mm 01/09/2024 1:33 AM CDT [facility] % NEUTROPHILS, CSF 3 <7 % 01/09/2024 1:33 AM CDT [facility] % LYMPHOCYTES, CSF 97(H) 40 - 80 % 01/09/2024 1:33 AM CDT [facility] Cerebrospinal Fluid CEREBROSPINAL FLUID SPECIMEN / Unknown Non-Blood / Unknown 01/08/2024 11:55 PM CDT 01/08/2024 11:58 PM CDT Narrative [facility] - 01/09/2024 1:33 AM CDT CSF MIN VOLUME: 1.0 mL Santi Elmore MD BODY FLUID [facility] SENDOUT INTERNAL ZIP [phone] [place] [address] * PROTEIN CSF,TOTAL (01/08/2024 11:55 PM CDT) PROTEIN CSF,TOTAL 41 15 - 45 mg/dL 01/09/2024 12:35 AM CDT [facility] Cerebrospinal Fluid CEREBROSPINAL FLUID SPECIMEN / Unknown Non-Blood / Unknown 01/08/2024 11:55 PM CDT 01/08/2024 11:58 PM CDT Santi Elmore MD BODY FLUID [facility] SENDOUT INTERNAL ZIP [phone] [place] [address] * (ABNORMAL) GLUCOSE,CSF (01/08/2024 11:55 PM CDT) GLUCOSE,CSF 92(H) 40 - 70 mg/dL 01/09/2024 12:38 AM CDT [facility] Cerebrospinal Fluid CEREBROSPINAL FLUID SPECIMEN / Unknown Non-Blood / Unknown 01/08/2024 11:55 PM CDT 01/08/2024 11:58 PM CDT Santi Elmore MD BODY FLUID [facility] SENDOUT INTERNAL ZIP [phone] [place] [address] * IR LUMBAR PUNCTURE DIAGNOSTIC (01/08/2024 11:42 PM CDT) Anatomical Region Laterality Modality X-Ray Angiograph y 01/08/2024 11:4 2 PM CDT Impressions 01/13/2024 7:33 AM CDT CONCLUSION: 1. Fluoroscopically-guided lumbar puncture yielding 12 cc of clear cerebrospinal fluid, sent for analysis. Marcial Alcala M.D. Neurointerventional Surgery [facility] Office: Pager: Narrative 01/13/2024 7:33 AM CDT For Patients: As a result of the Cures Act, medical imaging exams and procedure reports are released immediately into your electronic medical record. You may view this report before your referring provider. If you have questions, please contact your health care provider. [facility] NEUROINTERVENTIONAL SURGERY [place] 01/08/2024 11:42 PM CDT FLUOROSCOPICALLY-GUIDED LUMBAR PUNCTURE INDICATION: History of altered mental status. Lumbar puncture has been requested to obtain cerebrospinal fluid (CSF) for analysis. CONSENT: The procedure and its indications, major risks, benefits, and alternatives were discussed. Risks including, but not limited to, pain, headache, hemorrhage, infection, nerve damage, spinal cord damage, and allergic reaction were discussed. Understanding was acknowledged and a signed informed consent was obtained. FLUOROSCOPIC TIME: 1.4 minutes (1 image) DOSE: Air Kerma: 204.73 mGy ESTIMATED BLOOD LOSS: Minimal PERFORMING PHYSICIAN(S): Marcial Alcala M.D. PROCEDURE: The patient was placed in the prone position upon the fluoroscopic table. The skin of the back was prepped and draped in sterile fashion. Using fluoroscopic guidance, the L5-S1 level was localized. The skin was infiltrated with 1% lidocaine. Using direct fluoroscopic visualization and a posterior interlaminar approach, a 22 gauge spinal needle was advanced into the thecal sac at the L5-S1 level. 12 cc of clear CSF was passively obtained in total. This was divided between 4 labeled tubes. The needle was then removed. A dressing was applied. The procedure appeared well-tolerated. There was no apparent complication. Procedure Note Marcial Alcala MD - 01/13/2024 For Patients: As a result of the Cures Act, medical imagingexams and procedure reports are released immediately into your electronicmedical record. You may view this report before your referring provider.If you have questions, please contact your health care provider. [facility] NEUROINTERVENTIONAL SURGERY [facility] 01/08/2024 11:42 PM CDT FLUOROSCOPICALLY-GUIDED LUMBAR PUNCTURE INDICATION: History of altered mental status. Lumbar puncture has beenrequested to obtain cerebrospinal fluid (CSF) for analysis. CONSENT: The procedure and its indications, major risks, benefits, andalternatives were discussed. Risks including, but not limited to, pain,headache, hemorrhage, infection, nerve damage, spinal cord damage, andallergic reaction were discussed. Understanding was acknowledged and asigned informed consent was obtained. FLUOROSCOPIC TIME: 1.4 minutes (1 image) DOSE: Air Kerma: 204.73 mGy ESTIMATED BLOOD LOSS: Minimal PERFORMING PHYSICIAN(S): Marcial Alcala M.D. PROCEDURE: The patient was placed in the prone position upon thefluoroscopic table. The skin of the back was prepped and draped in sterilefashion. Using fluoroscopic guidance, the L5-S1 level was localized. Theskin was infiltrated with 1% lidocaine. Using direct fluoroscopicvisualization and a posterior interlaminar approach, a 22 gauge spinalneedle was advanced into the thecal sac at the L5-S1 level. 12 cc of clearCSF was passively obtained in total. This was divided between 4 labeledtubes. The needle was then removed. A dressing was applied. The procedureappeared well-tolerated. There was no apparent complication. IMPRESSION: CONCLUSION: 1. Fluoroscopically-guided lumbar puncture yielding 12 cc of clearcerebrospinal fluid, sent for analysis. Marcial Alcala M.D. Neurointerventional Surgery [facility] Office: Pager: Marcial Alcala MD IR * (ABNORMAL) TROPONIN T (HS) ONE TIME (01/08/2024 10:58 PM CDT) TROPONIN T HS 34(H) 6-10 ng/L ng/L 01/08/2024 11:28 PM CDT [facility] Blood BLOOD SPECIMEN / Unknown Venipuncture / Unknown 01/08/2024 10:58 PM CDT 01/08/2024 11:03 PM CDT [facility] - 01/08/2024 11:28 PM CDT hs-cTnT (Elecsys Troponin T Gen 5) concentration [...] low risk in emergency department patient population. Santi Elmore MD CHEMISTRY Performing Organization Address [facility] [address]/[facility] Co de Phone Number [facility] SENDOUT INTERNAL ZIP [phone] [place] [address] * PROTIME-INR (01/08/2024 10:58 PM CDT) INR 1.0 <1.3 01/08/2024 11:13 PM CDT [facility] PROTIME 11.1 10.3 - 12.3 sec 01/08/2024 11:13 PM CDT [facility] Blood BLOOD SPECIMEN / Unknown Venipuncture / Unknown 01/08/2024 10:58 PM CDT 01/08/2024 11:03 PM CDT Narrative [facility] - 01/08/2024 11:13 PM CDT ?Therapeutic Range 2.0-3.0 for most anticoagulated patients 2.5-3.5 or 4.0 for high risk patients The INR is only used for patients on stable oral anticoagulant therapy. It makes no significant contribution to the diagnosis or treatment of patients whose Protime is prolonged for other reasons. INR results are increased when heparin levels exceed 1.0 U/mL, which corresponds to an aPTT >125 seconds if the patient is on UFH. Santi Elmore MD HEMATOLOGY Performing Organization Address [facility] [address]/ZIP Co de Phone Number [facility] SENDOUT INTERNAL Z[address] [phone] [place] [address] * XR MAMMO BILAT SCREEN FFDM (10/04/2016 9:00 AM DIRECTOR BANKING) Anatomical Region Laterality Modality BREASTS, Breast Left, Breast Right Bilateral Mammography Narrative 10/04/2016 1:52 PM DIRECTOR BANKING BILATERAL DIGITAL SCREENING MAMMOGRAM WITH COMPUTER-AIDED DETECTION 10/04/2016 CLINICAL HISTORY: ??Screening. ?? COMPARISON: ??08/18/2015, 04/21/2014 and 05/20/2012. TECHNIQUE: ??CC and MLO views of both breasts interpreted with the aid of computer-aided detection. BREAST COMPOSITION: ??Fatty. FINDINGS: ??There is an 11-12 mm focal asymmetry in the posterolateral RIGHT breast demonstrating mammographic appearance suggesting the possibility of fat necrosis. ??No areas of architectural distortion are seen. ??No suspicious calcifications with benign-appearing calcifications present BILATERALLY. RECOMMENDATION: ??RIGHT breast ultrasound focusing on the mid to posterior depth 10 o'clock position near the lateral skin surface as seen on the CC projection. BI-RADS Category 0: Incomplete: Need Additional Imaging Evaluation and/or Prior Mammograms for Comparison Bernardino Avelar D.O. Diagnostic Radiologist [email or web address] R[place]IGUEZ/gurdeep ?? / Bailey Collins NP MAMMO * (ABNORMAL) LIPID PANEL W REFLEX MEASURED LDL (09/11/2016 9:26 AM DIRECTOR BANKING) CHOLESTEROL,TOTAL 159 100 - 199 mg/dL 09/11/2016 10:03 AM DIRECTOR BANKING [facility] TRIGLYCERIDES 183(H) <150 mg/dL 09/11/2016 10:03 AM DIRECTOR BANKING [facility] HDL CHOLESTEROL 36(L) >40 mg/dL 6 10:03 AM DIRECTOR BANKING [facility] NON-HDL CHOLESTEROL 123 <145 mg/dl 09/11/2016 10:03 AM [facility] CHOL/HDL RATIO 4.42 <4.50 09/11/2016 10:03 AM DIRECTOR BANKING [facility] LDL CHOLESTEROL 86 <=130 mg/dL 09/11/2016 10:03 AM DIRECTOR BANKING [facility] PATIENT STATUS NOT GIVEN 09/11/2016 10:03 AM [facility] Blood BLOOD SPECIMEN / Unknown Venipuncture / Unknown 09/11/2016 9:26 AM DIRECTOR BANKING 09/11/2016 9:26 AM DIRECTOR BANKING Bailey Collins NP CHEMISTRY [facility] [address] [place] [address], * XR DXA BONE DENSITY 2 SITES (08/18/2015 9:25 AM CDT) Anatomical Region Laterality Modality Spine, HIPS, HIPL, HIPR Other Narrative 08/19/2015 6:36 PM CDT Please see scanned document for results of this study. Bailey Collins [employer] DEXA from Last 3 Months or Most Recently Relevant to Health Maintenance Advance Directives * Full Code (Latest Code Status on File) Date Activated Date Inactivated Comments 01/08/2024 10:20 PM 01/14/2024 6:01 PM Question Answer Comments Code Status Discussion: Unable to Assess Preferences, Provider to review later * Full Code Date Activated Date Inactivated Comments 09/11/2023 8:30 PM 09/15/2023 3:11 PM Question Answer Comments Code Status Discussion: Reviewed Preferences * Full Code Date Activated Date Inactivated Comments 11/19/2015 1:43 PM 11/24/2015 8:35 PM Question Answer Comments Code Status Discussion: Discussed Care Teams Enrollment Nurse Relationship Specialty Start Date End Date Katerine Bashir MD [address] [facility] [place] [id number] PCP - General Family Practice 12/27/20 Easton Mccormick MD [address] [place] [address] [address] [place] [address] Cardiovascular Disease 09/26/16
--- OUTSIDE RECORDS SUMMARY | 2024-03-05 08:06 | XMS_ITS | Encounter Summary ---
Author Name Unknown Organization [facility] Address [address] [place] [address] Care Team Providers Care Loss Control Consultant Name Role Phone Elsewhere, Pcp Primary Care Provider Unavailabl e Reason for Referral * Outpatient (Routine) - Closed Specialty Diagnoses / Procedures Referred By Contac t Referred To Contact Cardiovascular Disease Diagnoses Coronary Artery Disease (Unspecified) Katerine Bashir M.D. [address] [place] [address] [facility] Referral ID Status Reason Start Date Expiration Date Visits Re quested Visits Authorized [id number] Closed 02/10/2019 02/10/2020 3 3 Encounter Details Date Type Department Care Team (Late st Contact Info) Description 02/10/2019 [facility] [address] [place] [address] Katerine Bashir M.D. [address] [place] [address] Coronary Artery Disease (Unspecified) (Primary [...] CDT Ancillary Procedure Department of Ophthalmology in [place], [place] [address] [place] [phone] Kenya Garza M.D. [address] [place] [phone] 03/06/2024 8:00 AM CDT Ancillary Procedure Department of Ophthalmology in [place], [place] [address] [place] [phone] Kenya Garza M.D. [address] [place] [phone] 03/06/2024 9:00 AM CDT Ancillary Procedure Department of Ophthalmology in [place], [place] [address] [place] [phone] Kenya Garza M.D. [address] [place] [phone] 03/06/2024 12:00 PM CDT Office Visit Department of Ophthalmology in [place], [place] [address] [place] [phone] Kenya Garza M.D. [address] [place] [phone] Scheduled Referrals Name Type Priority Associated Diagnoses [...] documented as of this encounter Care Teams Loss Control Consultant Relationship Specialty Start Date End Date Elsewhere, Pcp PCP - General Internal Medicine 05/29/19 documented as of this encounter
[2024-03-05 08:12] LABS: PCR FLU A Negative PCR FLU A (Negative); PCR FLU B Negative PCR FLU B (Negative); PCR RSV Negative PCR RSV (Negative); SARS PCR* Negative SARS-CoV-2 (Negative)
--- NOTE | 2024-03-05 08:12 | CT_ITS ---
Patient: BREEZY TREJO Facility:?[facility] Patient ID:?[id number] Site Patient ID:?[id number]. Site :?[id number] Study:?CT-Chest PE PROTOCOL 95CC ISOVUE 370-03/05/2024 9:10:10 AM Ordering Physician:?DR. HARDIN Final Report: INDICATION: Pneumonia. Hypoxia. Elevated D-dimer. History of CLL. COMPARISON: September 09, 2023 TECHNIQUE: : CT examination of the chest was performed with the uneventful intravenous administration of 95 cc of Isovue 370 while thin axial sections were obtained from above the apices of the lungs to the lung bases. Please note that all CT scans at this facility use dose modulation, iterative reconstruction, and/or weight-based dosing when appropriate to reduce radiation dose to as low as reasonably achievable. FINDINGS: : HEART and MEDIASTINUM: Bulky mediastinal lymphadenopathy again noted. This is similar to the prior study. There is also bilateral axillary and lower cervical region lymphadenopathy as visualized. This is likewise unchanged. No pericardial effusion. Heart size top normal. There are atherosclerotic vascular and valvular calcifications. There has been a median sternotomy. PULMONARY ARTERIAL CIRCULATION: There is no visible intraluminal filling defect to suggest pulmonary embolus. LUNGS: The lungs are abnormal. There are diffuse nodules bilaterally that appear to be primarily tree-in-bud nodules and more coalescent tree-in-bud nodules. This is probably largely due to infectious bronchiolitis and bronchopneumonia. The findings are much more pronounced on the right than on the left. There is vikki consolidation on the right especially in the right middle lobe and the right base. There is also atelectasis at the right base. Mildly prominent interstitial markings on the right probably due to engorged lymphatics from the lymphadenopathy. There is no cavitation. PLEURAL SPACES: No significant pleural fluid VISUALIZED UPPER ABDOMEN: Upper abdominal lymphadenopathy noted similar to the prior exam. The spleen appears enlarged but is incompletely visualized OSSEOUS STRUCTURES: Age-appropriate appearance. No acute fracture or destructive process. TUBES and LINES: None. IMPRESSION: 1. There is no finding of pulmonary embolus. 2. Extensive lymphadenopathy as described. This is similar to September 09, 2023. There is also marginal visualization of an enlarged spleen. These findings are compatible with the clinical history of CLL. 3. Multifocal lung finding bilaterally, right greater than left probably due to infectious bronchiolitis, bronchopneumonia and vikki consolidative pneumonia primarily in the right middle lobe and right base. There is no cavitation and there is no significant pleural fluid 4. Other nonacute appearing findings as above. Please note that all CT scans at this facility use dose modulation, iterative reconstruction, and/or weight-based dosing when appropriate to reduce radiation dose to as low as reasonably achievable. Dictated by Maxim Fernandez MD @ 03/05/2024 9:33:36 AM Signed by:?Maxim Fernandez MD @03/05/2024 9:33:36 AM (Electronic Signature)
[2024-03-05] MEDS: 0.9 % SODIUM CHLORIDE 1000 ml 1,000 ML IV (08:14)
[2024-03-05 08:16] LABS: NT Pro B Type NatriureticPept* 1100 pg/mL; Troponin I* < 0.01 ng/mL (0.01-0.04)
[2024-03-05 08:55] LABS: Procalcitonin* < 0.03 ng/mL (<0.50)
[2024-03-05] MEDS: PIPERACILLIN/TAZOBACTAM 3.375 GM in 0.9 % SODIUM CHLORIDE Mini-bag 100 ML IVPB ×3 (09:22→20:34)
--- NOTE | 2024-03-05 10:48 | P.IMHP_ITS ---
Hospitalist- H&P: HPI History of Present Illness Date Seen: 03/05/24 Chief complaint: Difficulty breathing Narrative: Alexandra Dixon is a 68 year old female who was brought into the ER by coworkers this morning for dyspnea. 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 ER Course and Findings: - tachycardic and hypoxic upon arrival to the ED (HR 120s, pulse oximeter 83% on RA) - CTA of chest revealed lymphadenopathy (noted previously, likely related to CLL), no PE, multifocal lung abnormalities concerning for vikki consolidative PNA - received Solumedrol, nebs, Zosyn, supplemental oxygen Upon arrival to the floor, patient is feeling better. She is tolerating supplemental oxygen. She has no chest pain or fevers. Multiple comorbidities, histories updated below. She has been intubated once (not for COPD, this was in December 2023 for acute mental status change, eventually diagnosed with PRES). Dr. Bashir is PCP locally. Followed by multiple specialists for her comorbidities. Review of Systems Narrative: - decreased vision in R eye (known HSV uveitis) - no chest pain - no urinary concerns - constipated earlier this week, this has resolved [facility] Medical History (Updated 03/05/24 @ 14:33 by Becki Martinez MD) PRES (posterior reversible encephalopathy syndrome) (12/2023) ?I67.83 - Posterior reversible encephalopathy syndrome (ICD-10) Hypertension ?I10 - Essential (primary) hypertension (ICD-10) Hypomagnesemia ?E83.42 - Hypomagnesemia (ICD-10) Weight loss, abnormal ?R63.4 - Abnormal weight loss (ICD-10) Elevated LFTs ?R79.89 - Other specified abnormal findings of blood chemistry (ICD-10) Acute interstitial pneumonitis (09/11/23) ?J84.114 - Acute interstitial pneumonitis (ICD-10) History of nuclear stress test (11/19/23) ?Z92.89 - Personal history of other medical treatment (ICD-10) Environmental allergies ?Z91.09 - Other allergy status, other than to drugs and biological substances (ICD-10) Hypercalcemia (08/30/23) ?E83.52 - Hypercalcemia (ICD-10) Respiratory failure ?J96.90 - Respiratory failure, unspecified, unspecified whether with hypoxia or hypercapnia (ICD-10) Dyslipidemia ?E78.5 - Hyperlipidemia, unspecified (ICD-10) Microalbuminuria due to type 2 diabetes mellitus ?E11.29 - Type 2 diabetes mellitus with other diabetic kidney complication (ICD-10) ?R80.9 - Proteinuria, unspecified (ICD-10) Lymphoma, small lymphocytic (2018) ?C83.00 - Small cell B-cell lymphoma, unspecified site (ICD-10) Type 2 diabetes mellitus ?E11.9 - Type 2 diabetes mellitus without complications (ICD-10) Chronic obstructive pulmonary disease (06/2020) ?J44.9 - Chronic obstructive pulmonary disease, unspecified (ICD-10) Diarrhea ?R19.7 - Diarrhea, unspecified (ICD-10) Bullous pemphigoid (~12/2022) ?L12.0 - Bullous pemphigoid (ICD-10) Splenomegaly (07/2022) ?R16.1 - Splenomegaly, not elsewhere classified (ICD-10) Elevated liver transaminase level ?R74.01 - Elevation of levels of liver transaminase levels (ICD-10) Ventricular bigeminy (2017) ?I49.8 - Other specified cardiac arrhythmias (ICD-10) History of bone density study (03/2023) ?Z92.89 - Personal history of other medical treatment (ICD-10) Vitamin D deficiency ?E55.9 - Vitamin D deficiency, unspecified (ICD-10) No retinopathy on exam (03/2021) ?Z01.00 - Encounter for examination of eyes and vision without abnormal findings (ICD-10) History of myocardial infarction (11/21/15) ?I25.2 - Old myocardial infarction (ICD-10) History of malignant neoplasm of skin ?Z85.828 - Personal history of other malignant neoplasm of skin (ICD-10) Frequent ventricular premature beats ?I49.3 - Ventricular premature depolarization (ICD-10) Coronary artery disease (2000) ?I25.10 - Atherosclerotic heart disease of sun'aq coronary artery without angina pectoris (ICD-10) Surgical History History of bronchoscopy (08/2023) ?Z98.890 - Other specified postprocedural states (ICD-10) History of four vessel coronary artery bypass graft (2000) ?Z95.1 - Presence of aortocoronary bypass graft (ICD-10) History of coronary artery stent placement (11/21/15) ?Z95.5 - Presence of coronary angioplasty implant and graft (ICD-10) Family History Father Stroke, Onset Age: 70 Prostate cancer Mother Diabetes Myocardial infarction, Onset Age: 65 Daughter Stroke, Onset Age: 36 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: , 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, 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 SMOKER: Tobacco abuse- 10/day, 32 pack years~ resolved 01/16 Does not exercise- active in garden and yard Social drinker- 2/week Past problems: Non-smoker- quit 2000, hx 30 pack years What is your current living situation?: I presently have a place to live Problems where you live: no known problems Problems where you live details: none In the past 12 months, utilities in danger of being shut off: no In past 12 months, lack of transportation kept you from medical appts, meetings, work, or getting things needed for daily living: no In the past 12 mos, have been you worried that your food would run out before you had money to buy more?: never true In the past 12 mos, the food you bought just didn't last and you didn't have money to buy more?: never true Highest level of school completed/degree received: high school graduate Smoking Status: Former smoker What tobacco products do you use: cigarettes Smoking quit date/years: <= 15 years ago Do you use any of these nicotine containing products: None Second hand tobacco smoke exposure: No How often do you have a drink containing alcohol: 2-4 times a month Alcohol type details: stopped alcohol 5 weeks ago How often do you have six or more drinks on one occasion: Less than monthly AUDIT-C Alcohol total score: 3 Non-prescribed substance use: denies use Caffeine: Yes How often does anyone, including family, friends and others, physically hurt you : never How often does anyone, including family, friends and others, insult or talk down to you: never How often does anyone, including family, friends and others, threaten you with harm: never How often does anyone, including family, friends and others, scream or curse at you: never Little interest or pleasure in doing things: not at all Feeling down, depressed, or hopeless: several days service: No Meds Home Medications and Allergies Home Medications Medication Instructions Recorded Confirmed Type aspirin 81 mg tablet,delayed 81 mg PO DAILY 04/26/22 03/05/24 History release fexofenadine 180 mg tablet 180 mg PO DAILY 01/23/23 03/05/24 History (Rosangela Allergy) ascorbic acid (vitamin C) 500 mg 500 mg PO DAILY 01/17/24 03/05/24 History chewable tablet difluprednate 0.05 % eye drops 1 drp ophthalmic (eye) BID 01/17/24 03/05/24 History glycerin 0.5 % eye drops (Biotrue 1 drp ophthalmic (eye) TID 01/17/24 01/27/24 History Hydration Boost) valacyclovir 1 gram tablet 1,000 mg PO TID 01/17/24 03/05/24 History amlodipine 5 mg tablet 5 mg PO DAILY 03/05/24 03/05/24 History lisinopril 20 mg tablet 20 mg PO DAILY 03/05/24 03/05/24 History metformin 1,000 mg tablet 1,000 mg PO DAILY 03/05/24 03/05/24 History Allergies Allergy/AdvReac Type Severity Reaction Status Date / Time No Known Drug Allergies Allergy Verified 03/05/24 09:01 Exam Narrative: Exam Narrative: GEN: Alert and oriented, sitting on edge of bed and speaking in full sentences HEENT: Anisocoria (h/o this 2/2 HSV uveitis) EOMIs bilaterally, no scleral icterus CV: Sinus arrhythmia, HR 90s R: Bibasilar wheezing, rales on R Ext: wwp, no concerning edema Skin: No concerning skin lesions or rashes on exposed skin Neuro: No focal deficits Psych: Appropriate Const: Vital Signs, click to edit/add: Vital Signs - 24 hr 03/05/24 07:04 03/05/24 08:06 03/05/24 08:15 Temperature 97.4 F L Pulse Rate 116 H 110 H Pulse Rate [Left P ulse Oximeter] 124 H Respiratory Rate 20 Blood Pressure Blood Pressure [Le ft Upper Arm] 167/114 H Pulse Oximetry 83 L 92 92 Oxygen Delivery Me thod Room Air 03/05/24 08:18 03/05/24 08:30 03/05/24 09:02 Temperature Pulse Rate 96 101 H 112 H Pulse Rate [Left P ulse Oximeter] Respiratory Rate Blood Pressure 161/87 H 158/122 H Blood Pressure [Le ft Upper Arm] Pulse Oximetry 92 94 93 Oxygen Delivery Me od 03/05/24 09:03 03/05/24 09:17 03/05/24 09:21 Temperature Pulse Rate 106 H 118 H 104 H Pulse Rate [Left P ulse Oximeter] Respiratory Rate Blood Pressure 150/85 H Blood Pressure [Le ft Upper Arm] Pulse Oximetry 94 91 94 Oxygen Delivery Me od 03/05/24 09:30 03/05/24 09:32 03/05/24 09:32 Temperature Pulse Rate 106 H 98 98 Pulse Rate [Left P ulse Oximeter] Respiratory Rate Blood Pressure 147/81 H 147/81 H Blood Pressure [Le ft Upper Arm] Pulse Oximetry 93 92 92 [facility] 03/05/24 09:45 03/05/24 09:47 03/05/24 10:00 Temperature Pulse Rate 103 H 92 95 Pulse Rate [Left P ulse Oximeter] Respiratory Rate Blood Pressure 159/79 H Blood Pressure [Le ft Upper Arm] Pulse Oximetry 91 92 94 Oxygen Delivery Me od 03/05/24 10:02 03/05/24 10:15 03/05/24 10:17 Temperature Pulse Rate 112 H 103 H Pulse Rate [Left P ulse Oximeter] Respiratory Rate Blood Pressure 120/76 129/97 H Blood Pressure [Le ft Upper Arm] Pulse Oximetry 93 94 Oxygen Delivery Me od 03/05/24 10:32 03/05/24 10:33 Temperature Pulse Rate 106 H 100 Pulse Rate [Left P ulse Oximeter] Respiratory Rate Blood Pressure 154/103 H Blood Pressure [Le ft Upper Arm] Pulse Oximetry 89 93 Oxygen Delivery Me od Hospitalist - H&P: Result Labs Labs: Short CBC 03/05/24 Range/Units 07:10 WBC 12.89 H (4.50-11.00) K/uL Hgb 14.8 (12.0-16.0) gm/dL Hct 46.7 (33.0-51.0) % Plt Count 189 (140-440) K/uL BMP 03/05/24 07:10 Sodium 142 Potassium 3.1 L Chloride 106 Carbon Dioxide 27 BUN 23 Creatinine 0.7 Glucose 157 H Calcium 9.5 Cardiac Enzymes 03/05/24 Range/Units 07:10 Troponin I < 0.01 L (0.01-0.04) ng/mL Assessment and Plan Assessment and plan (1) Pneumonia: Problem comment: - likely community acquired; given high risk status (COPD, CLL) will treat with Zosyn (03/05) - Blood cultures pending Status: Acute (2) Acute on chronic hypoxic respiratory failure: Problem comment: - supplemental oxygen as needed, RT referral Status: Acute (3) Chronic obstructive pulmonary disease: Problem comment: - with exacerbation on 03/05 - steroids, nebs, antibiotics - 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, not using Anoro Ellipta 2/2 financial restraints Status: Chronic (4) Hypokalemia: Problem comment: - replace and follow Status: Acute (5) Type 2 diabetes mellitus: Problem comment: - noninsulin dependent, on Metformin - last A1C 7.7 on 01/20/24 - SSI during hospitalization, expect some degree of hyperglycemia given steroids Status: Chronic (6) Herpes zoster anterior uveitis: Problem comment: - follows with [facility], on 10mg of Prednisone, also taking Valtrex thrice daily Status: Acute Plan - per above - Requests Full Code status - Lovenox for ppx - return home with when medically appropraite
[2024-03-05] MEDS: AMLODIPINE 5 MG TABLET PO (12:52)
[2024-03-05] MEDS: POTASSIUM BICARB 25 MEQ EFFERVESCENT TAB PO ×3 (12:53→16:11)
[2024-03-05] MEDS: predniSONE 20 MG TABLET 60 MG PO (12:54)
[2024-03-05] MEDS: VALACYCLOVIR HCL 500 MG TABLET 1000 MG PO ×2 (14:24→20:57)
--- NOTE | 2024-03-05 14:37 | PC.NURSE ---
End of Shift Note: Patient admitted from the ER. She is alert and orientated and was here for increase shortness of breath. Is currently on 3L O2 to keep sats greater than 90%. Is not normally on O2 at home. RT seen her this afternoon and discussed using the aerobika throught out the day. is currently at bedside and they have been instructed to take her home medications home. Will continue to monitor until next shift arrives. Is up indep in room.
[2024-03-05] MEDS: ATORVASTATIN CALCIUM 40 MG TABLET PO (20:35)
[2024-03-05] MEDS: DIFLUPREDNATE 0.05% EYE-BOTH (20:35)
[2024-03-05] MEDS: INSULIN ASPART 100 UNIT/ML SUBCUT (20:58)
--- NOTE | 2024-03-05 22:28 | PC.NURSE ---
Nursing Care Hours: 1650-1687 Pt this shift calm and cooperative, alert and oriented. No c/o pain, independent ambulation in room. Spo2 >92% on 3L. Pt SOB with rest and states that she is a mouth breather. Oximask provided when not eating. PRN given per pt request. Pt using Aerobika independently and frequently. States she feels since using PEP, cough is becoming more moist and breaking up. Does c/o becoming sweaty intermittently but afrebile. Discussed bodys increase work of breathing and fighting infection may contribute diaphoresis. Encouraged to allow rest periods and increasing fluids. Pt reported scant amount of blood on tissue when wiping after BM. Tele shows NSR with BBB. Insulin given per sliding scale. IV saline locked after ABX infusion.
[2024-03-06] VITALS (10 sets, daily range): BP systolic 133–158; BP diastolic 69–98; PULSE 63–83; RESP 18–20; TEMP 36.4–36.6; O2SAT 89–93
[2024-03-06] MEDS: PIPERACILLIN/TAZOBACTAM 3.375 GM in 0.9 % SODIUM CHLORIDE Mini-bag 100 ML IVPB ×2 (02:23→08:09)
[2024-03-06] MEDS: SODIUM CHLORIDE 0.9 % (FLUSH) 10 ML SYRINGE 5 ML IVF ×3 (02:23→21:02)
--- NOTE | 2024-03-06 06:17 | PC.NURSE ---
Pt is alert and oriented x3. Afebrile. Pt was on 3L at start of shift to maintain O2 stats of 90% and greater pt was weaned down to 1L and maintaining stats 90% and greater. Pt denies pain, n/v, and chest pain. SOB is noted with exertion. Pt is up independent in room, tolerating regular diet and voiding. Pt slept intermittently throughout night.
[2024-03-06 06:24] LABS: HCO3 VBG 29 mmol/L (21-28); PCO2 VBG 46 mmHG (40-50); PO2 VBG 31.8 mmHG (25-47); pH VBG 7.409 (7.32-7.43)
[2024-03-06 06:30] LABS: Basophils Percent Auto 0.1 % (0.0-3.0); Eosinophils Percent Auto 0.1 % (0.0-7.0); Hematocrit 39.8 % (33.0-51.0); Hemoglobin* 12.8 gm/dL (12.0-16.0); Immature Granulocytes Pct Auto 3.4 %; Lymphocytes Percent Auto 36.8 % (20-44); Mean Corpuscular HGB Conc 32 gm/dL (32-36); Mean Corpuscular Hemoglobin 32 pg (26-34); Mean Corpuscular Volume 100 fL (80-100); Monocytes Percent Auto 5.5 % (0.0-11.0); Neutrophils Percent Auto 54.1 % (42.0-72.0); Platelet Count* 173 K/uL (140-440); RDW Coefficient of Variation % 15.2 % (11.5-15.5); Red Blood Count 3.98 m/uL (4.00-5.20)
[2024-03-06 06:31] LABS: Slide Review Reflex No
[2024-03-06 06:50] LABS: Albumin* 3.9 g/dL (3.3-5.0); Chloride* 104 mmol/L (96-114); Sodium* 138 mmol/L (135-149)
[2024-03-06 06:52] LABS: Anion Gap 4 mEq/L (7-15); Aspartate Amino Transferase* 30 U/L (12-35); Bilirubin Total* 1.2 mg/dL (0.1-1.5); Carbon Dioxide* 30 mmol/L (20-32); Creatinine* 0.6 mg/dL (0.5-1.5); Est. Creatinine Clearance* 51.81; Estimated Glomerular Filt Rate 99 ml/min
[2024-03-06 06:53] LABS: Alanine Aminotransferase* 25 U/L (4-35); Alkaline Phosphatase* 56 U/L (40-150); Blood Urea Nitrogen* 20 mg/dL (7-30); Calcium* 8.9 mg/dL (8.4-10.6); Glucose* 235 mg/dL (60-115); Total Protein* 6.4 g/dL (6.0-8.3)
[2024-03-06] MEDS: INSULIN ASPART 100 UNIT/ML SUBCUT ×4 (07:32→21:05)
[2024-03-06] MEDS: predniSONE 20 MG TABLET 40 MG PO (08:09)
[2024-03-06] MEDS: 0.9 % SODIUM CHLORIDE 250 ml IV (08:49)
[2024-03-06] MEDS: ASPIRIN 81 MG TABLET EC PO (09:01)
[2024-03-06] MEDS: DIFLUPREDNATE 0.05% EYE-BOTH ×2 (09:04→20:59)
[2024-03-06] MEDS: lisinopriL 20 MG TABLET PO (09:05)
[2024-03-06] MEDS: VALACYCLOVIR HCL 500 MG TABLET 1000 MG PO ×3 (09:05→21:00)
[2024-03-06] MEDS: AMLODIPINE 5 MG TABLET PO (09:05)
[2024-03-06] MEDS: METOPROLOL SUCCINATE (XL) 100 MG TAB PO (09:08)
[2024-03-06] MEDS: MAGNESIUM OXIDE 400 MG TABLET PO (09:08)
--- NOTE | 2024-03-06 13:05 | PM.IMPN1 ---
Progress Note: A&P Assessment and plan (1) Pneumonia: Problem details: - likely community acquired; given high risk status (COPD, CLL) will treat with Zosyn (03/05) - Blood cultures pending - given clinical improvement, transitioned from IV Zosyn to oral Doxycycline on 03/06/24 Status: Acute (2) Acute on chronic hypoxic respiratory failure: Problem details: - supplemental oxygen as needed, RT following Status: Acute (3) Chronic obstructive pulmonary disease: Problem details: - with exacerbation on 03/05 - steroids (increased home dose of prednisone 10 mg per day to 40 mg per day on 03/05), nebs, antibiotics - 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, recently started Anoro Ellipta (hadn't been taking previously 2/2 financial constraints) Status: Chronic (4) Hypokalemia: Problem details: - replace and follow Status: Acute (5) Type 2 diabetes mellitus: Problem details: - noninsulin dependent, on Metformin - last A1C 7.7 on 01/20/24 - SSI during hospitalization, expect some degree of hyperglycemia given steroids Status: Chronic (6) Herpes zoster anterior uveitis: Problem details: - follows with [facility], on 10mg of Prednisone as an outpatient, also taking Valtrex thrice daily Status: Acute Plan - per above - anticipate that she'll be ready to go home tomorrow with Prednisone taper if she can remain stable on RA - multiple comorbidities, stable Subjective Date Seen: 03/06/24 Interval history: Alexandra was admitted to the hospital history for dyspnea in the setting of COPD exacerbation. She was started on IV antibiotics, steroids, nebs, supplemental oxygen. Today, she is feeling better but still having dyspnea with exertion. Oxygen requirements have decreased She did have exertion hypoxia when walking with PT today. No other PT needs identified during the session. No chest pain, no lower extremity edema, no other concerns for hospitalist team. Exam Narrative: Exam Narrative: GEN: Alert and sitting comfortably in bed, + dyspnea with talking HEENT: Chronic anisocoria (R pupil dilated 2/2 HSV) EOMIs bilaterally, no scleral icterus CV: RRR R: RR up in the mid 20s while talking, mild apical whezing, bibasilar rhonchi Ext: wwp, no concerning edema Skin: No concerning skin lesions or rashes on exposed skin Neuro: No focal deficits Psych: Appropriate Const: Vital Signs, click to edit/add: Vital Signs - 24 hr 03/05/24 15:30 03/05/24 15:30 03/05/24 15:38 Temperature 98.0 F Pulse Rate Pulse Rate [Right Radial] 77 77 Respiratory Rate 20 28 H Blood Pressure [Le ft Arm] 148/78 H Pulse Oximetry 93 93 Oxygen Delivery Me thod Nasal Cannula Nasal Cannula Oxygen Flow Rate 3 3 03/05/24 17:00 03/05/24 19:00 03/05/24 23:54 Temperature 97.5 F L 97.7 F Pulse Rate 81 Pulse Rate [Right Radial] 87 78 Respiratory Rate 18 18 Blood Pressure [Le ft Arm] 151/76 H 129/67 Pulse Oximetry 92 90 Oxygen Delivery Me thod Nasal Cannula Nasal Cannula Oxygen Flow Rate 3 3 03/05/24 23:54 03/05/24 23:54 03/05/24 23:54 Temperature Pulse Rate 70 Pulse Rate [Right Radial] Respiratory Rate 18 18 Blood Pressure [Le ft Arm] Pulse Oximetry 90 Oxygen Delivery Me thod Nasal Cannula Oxygen Flow Rate 3 03/06/24 02:24 03/06/24 07:44 03/06/24 07:45 Temperature 97.6 F 97.7 F Pulse Rate Pulse Rate [Right Radial] 63 68 Respiratory Rate 18 20 20 Blood Pressure [Le ft Arm] 141/69 H 158/98 H Pulse Oximetry 93 91 91 Oxygen Delivery Me thod Nasal Cannula Room Air Room Air Oxygen Flow Rate 2 03/06/24 08:21 03/06/24 11:00 Temperature 97.7 F Pulse Rate 83 Pulse Rate [Right Radial] 72 Respiratory Rate 18 Blood Pressure [Le ft Arm] 133/97 H Pulse Oximetry 89 Oxygen Delivery Me thod Nasal Cannula Oxygen Flow Rate 0.5 Labs Labs: Laboratory Results - last 24 hr 03/06/24 05:51 WBC 11.90 H RBC 3.98 L Hgb 12.8 Hct 39.8 MCV 100 MCH 32 MCHC 32 RDW Coeff of Shabana 15.2 Plt Count 173 Neut % (Auto) 54.1 Lymph % (Auto) 36.8 [place] % (Auto) 5.5 Eos % (Auto) 0.1 Baso % (Auto) 0.1 Neut # (Auto) 6.40 Lymph # (Auto) 4.40 H [place] # (Auto) 0.70 Eos # (Auto) 0.00 Baso # (Auto) 0.00 Abs Immat Gran (auto) 0.40 H Imm/Tot Granulo (auto) 3.4 VBG pH 7.409 VBG pCO2 46 VBG pO2 31.8 VBG HCO3 29 H Sodium 138 Potassium 4.0 Chloride 104 Carbon Dioxide 30 Anion Gap 4 L BUN 20 Creatinine 0.6 Estimated Creat Clear 51.81 Estimated GFR 99 Glucose 235 H Calcium 8.9 Total Bilirubin 1.2 AST 30 ALT 25 Alkaline Phosphatase 56 Total Protein 6.4 Albumin 3.9
--- NOTE | 2024-03-06 17:03 | PC.NURSE ---
Shift Summary: Patient pleasant and cooperative. Up independently, walked in halls with PT earlier, O2 sat dropped to 88% but recovered quickly. This afternoon patient was requiring o2 @ 0.5L/NC for 2 hours, has been on RA since. Walked in halls per self x1 this afternoon. Vitals stable and WNL. Denies pain. SOB with exertion and while eating meals however o2 >88%.
[2024-03-06] MEDS: DOXYCYCLINE HYCLATE 100 MG PO (20:59)
[2024-03-06] MEDS: ATORVASTATIN CALCIUM 40 MG TABLET PO (20:59)
[2024-03-06] MEDS: ENOXAPARIN 40 MG/0.4 ML INJ SUBCUT (21:06)
[2024-03-07] VITALS (8 sets, daily range): BP systolic 139–156; BP diastolic 73–91; PULSE 64–92; RESP 16–20; TEMP 36.4–36.9; O2SAT 88–93
--- NOTE | 2024-03-07 06:00 | PC.NURSE ---
Shift note: Pt is alert and oriented. Appeared to snore especially with deep sleep but able to maintain O2>90% on room air. Pt denied SOB, cough and pain. No fever recorded. Vitally stable.Blood sugar level at 2100 was 310, Insulin given per sliding scale. Pt had shower at 0600.
[2024-03-07 08:03] LABS: Basophils Percent Auto 0.1 % (0.0-3.0); Eosinophils Percent Auto 0.4 % (0.0-7.0); Hematocrit 42.9 % (33.0-51.0); Immature Granulocytes Pct Auto 2.6 %; Lymphocytes Percent Auto 50.8 % (20-44); Mean Corpuscular HGB Conc 33 gm/dL (32-36); Mean Corpuscular Hemoglobin 33 pg (26-34); Mean Corpuscular Volume 100 fL (80-100); Monocytes Percent Auto 9.9 % (0.0-11.0); Neutrophils Percent Auto 36.2 % (42.0-72.0); Platelet Count* 193 K/uL (140-440); RDW Coefficient of Variation % 15.4 % (11.5-15.5); Red Blood Count 4.28 m/uL (4.00-5.20); White Blood Count* 19.06 K/uL (4.50-11.00)
[2024-03-07 08:07] LABS: Slide Review Reflex No
[2024-03-07 08:14] LABS: Chloride* 106 mmol/L (96-114); Sodium* 139 mmol/L (135-149)
[2024-03-07 08:15] LABS: Potassium* 3.6 mmol/L (3.6-5.1)
[2024-03-07 08:17] LABS: Anion Gap 3 mEq/L (7-15); Carbon Dioxide* 30 mmol/L (20-32); Creatinine* 0.6 mg/dL (0.5-1.5); Est. Creatinine Clearance* 51.81; Estimated Glomerular Filt Rate 99 ml/min
[2024-03-07 08:18] LABS: Blood Urea Nitrogen* 21 mg/dL (7-30); Calcium* 9.1 mg/dL (8.4-10.6); Glucose* 117 mg/dL (60-115)
[2024-03-07] MEDS: VALACYCLOVIR HCL 500 MG TABLET 1000 MG PO ×3 (08:59→21:31)
[2024-03-07] MEDS: SODIUM CHLORIDE 0.9 % (FLUSH) 10 ML SYRINGE 5 ML IVF ×3 (08:59→21:31)
[2024-03-07] MEDS: predniSONE 20 MG TABLET 40 MG PO (09:00)
[2024-03-07] MEDS: AMLODIPINE 5 MG TABLET PO (09:00)
[2024-03-07] MEDS: ASPIRIN 81 MG TABLET EC PO (09:00)
[2024-03-07] MEDS: DOXYCYCLINE HYCLATE 100 MG PO ×2 (09:00→21:29)
[2024-03-07] MEDS: lisinopriL 20 MG TABLET PO (09:00)
[2024-03-07] MEDS: IPRAT-ALBUT 0.5-2.5 MG/3 ML NEB 1 NEB IH (09:00)
[2024-03-07] MEDS: MAGNESIUM OXIDE 400 MG TABLET PO (09:02)
[2024-03-07] MEDS: DIFLUPREDNATE 0.05% EYE-BOTH ×2 (09:02→21:30)
[2024-03-07] MEDS: METOPROLOL SUCCINATE (XL) 100 MG TAB PO (09:02)
--- NOTE | 2024-03-07 10:39 | PM.IMPN1 ---
Progress Note: A&P Assessment and plan (1) Pneumonia: Problem details: - likely community acquired; given high risk status (COPD, CLL) will treat with Zosyn (03/05) - Blood cultures pending - given clinical improvement, transitioned from IV Zosyn to oral Doxycycline on 03/06/24 - Continues to feel unwell, but appears to be improving, slowly. BCx2 neg. In light of high risk (CLL, COPD) and increasing WBC (maybe combo of CLL and prednisone), monitor one more day in the hospital. Continue doxycycline, nebs. Anticipate discharge home tomorrow. 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 Restart metformin Status: Chronic (6) Herpes zoster anterior uveitis: Problem details: - follows with [facility], on 10mg of Prednisone as an outpatient, also taking Valtrex thrice daily Status: Acute (7) Nasal congestion: Status: Acute Assessment and Plan: - Start flonase, guaifenisen, prn nasal saline spray. Plan - per above - anticipate that she'll be ready to go home tomorrow with Prednisone taper if she can remain stable on RA - Restart home amlodipine for HTN today. - multiple comorbidities, stable Subjective Time Seen by Provider: 08:49 Date Seen: 03/07/24 Interval history: Alexandra c/o nasal congestion and post nasal drip. She hears an audible crackle when she breathes. She notes a little short of breath yet when she is ambulating to the bathroom, but has not needed oxygen since yesterday afternoon. She feels like she could use a neb and her allergy medications. She notes that she took Flonase for 3 years in the past, but it never did anything for her. Exam Narrative: Exam Narrative: General: No acute distress. Awake, alert, oriented x3. No pallor. No jaundice. Oropharynx: Clear. Mucous membranes moist. Cardiovascular: Regular rate and rhythm. No murmurs, gallops, or rubs. Respiratory: Able to talk in short complete sentences without obvious respiratory distress while sitting in the chair. Bibasilar rhonchi, no wheezing. Abdomen: Bowel sounds present. Soft, nondistended, nontender. Extremities: No pedal edema. Const: Vital Signs, click to edit/add: Vital Signs - 24 hr 03/06/24 11:00 03/06/24 14:21 03/06/24 14:31 Temperature 97.7 F Pulse Rate 79 Pulse Rate [Right Radial] 72 Respiratory Rate 18 Blood Pressure [Le ft Arm] 133/97 H Pulse Oximetry 89 90 Oxygen Delivery Me thod Nasal Cannula Room Air Oxygen Flow Rate 0.5 03/06/24 15:40 03/06/24 19:00 03/06/24 23:00 Temperature 97.7 F 97.8 F Pulse Rate Pulse Rate [Right Radial] 66 68 68 Respiratory Rate 18 18 18 Blood Pressure [Le ft Arm] 145/82 H 152/78 H Pulse Oximetry 89 92 Oxygen Delivery Me thod Room Air Room Air Oxygen Flow Rate 03/06/24 23:00 03/06/24 23:00 03/06/24 23:00 Temperature 97.7 F Pulse Rate 76 Pulse Rate [Right Radial] 68 Respiratory Rate 18 18 Blood Pressure [Le ft Arm] 136/87 Pulse Oximetry 92 92 Oxygen Delivery Me thod Room Air Room Air Oxygen Flow Rate 03/07/24 02:23 03/07/24 08:00 03/07/24 08:00 Temperature 97.9 F 97.6 F Pulse Rate Pulse Rate [Right Radial] 84 79 Respiratory Rate 18 18 18 Blood Pressure [Le ft Arm] 149/86 H 156/91 H Pulse Oximetry 90 90 90 Oxygen Delivery Me thod Room Air Room Air Room Air Oxygen Flow Rate 03/07/24 08:09 Temperature Pulse Rate 92 Pulse Rate [Right Radial] Respiratory Rate Blood Pressure [Le ft Arm] Pulse Oximetry Oxygen Delivery Me thod Oxygen Flow Rate Labs Labs: Laboratory Results - last 24 hr 03/07/24 07:53 WBC 19.06 H RBC 4.28 Hgb 14.0 Hct 42.9 MCV 100 MCH 33 MCHC 33 RDW Coeff of Shabana 15.4 Plt Count 193 Neut % (Auto) 36.2 L Lymph % (Auto) 50.8 H [place] % (Auto) 9.9 Eos % (Auto) 0.4 Baso % (Auto) 0.1 Neut # (Auto) 6.90 Lymph # (Auto) 9.70 H [place] # (Auto) 1.90 H Eos # (Auto) 0.10 Baso # (Auto) 0.00 Abs Immat Gran (auto) 0.50 H Imm/Tot Granulo (auto) 2.6 Sodium 139 Potassium 3.6 Chloride 106 Carbon Dioxide 30 Anion Gap 3 L BUN 21 Creatinine 0.6 Estimated Creat Clear 51.81 Estimated GFR 99 Glucose 117 H Calcium 9.1
[2024-03-07] MEDS: INSULIN ASPART 100 UNIT/ML SUBCUT ×3 (12:40→21:52)
[2024-03-07] MEDS: POTASSIUM CHLORIDE 10 MEQ CAPSULE ER PO ×2 (13:09→17:40)
--- NOTE | 2024-03-07 14:11 | PC.NURSE ---
Shift Summary: Patient pleasant and cooperative. Up independently in room, tolerating activity well. O2 sat dropped to 86% around noon, put on 0.5L/NC for around 1.5hrs and now back on room air, vitals stable. Tolerating regular diet. C/o feeling more congested today, MD updated, given PRN neb with some relief.
[2024-03-07] MEDS: ENOXAPARIN 40 MG/0.4 ML INJ SUBCUT (21:28)
[2024-03-07] MEDS: ATORVASTATIN CALCIUM 40 MG TABLET PO (21:29)
[2024-03-07] MEDS: guaiFENesin 600 MG TAB.ER.12H PO (21:29)
--- NOTE | 2024-03-07 22:57 | PC.NURSE ---
End of note: Pt alert and oriented, pleasant and cooperative throughout shift. Reported cough, some productive sputum after using aerobika. Pt independent in room, voiding well. One BM. Tolerating regular diet well. O2 sats between 88-91% RA. IV patent. LS diminished at bases.
[2024-03-08] VITALS: PULSE 73
[2024-03-08 04:25] VITALS: BP 142/77; PULSE 64; RESP 18; TEMP 36.4; O2SAT 91
--- NOTE | 2024-03-08 06:27 | PC.NURSE ---
End of shift [id number]: A&O pleasant and cooperative. VSS w/ sats >90% on RA. Denies pain. Up at christian in room. Using call light appropriately.
[2024-03-08] MEDS: predniSONE 20 MG TABLET 40 MG PO (07:24)
[2024-03-08] MEDS: POTASSIUM CHLORIDE 10 MEQ CAPSULE ER PO (07:24)
[2024-03-08 07:35] VITALS: BP 152/94; PULSE 70; RESP 18; TEMP 35.9; O2SAT 92
[2024-03-08 08:05] VITALS: PULSE 83
[2024-03-08] MEDS: FLUTICASONE PROPIONATE NASAL 1 SPRAY NOSTRIL-B (08:51)
[2024-03-08] MEDS: ASCORBIC ACID 500 MG TABLET PO (08:52)
[2024-03-08] MEDS: DOXYCYCLINE HYCLATE 100 MG PO (08:52)
[2024-03-08] MEDS: DIFLUPREDNATE 0.05% EYE-BOTH (08:52)
[2024-03-08] MEDS: lisinopriL 20 MG TABLET PO (08:53)
[2024-03-08] MEDS: METFORMIN 1,000 MG TABLET 1000 MG PO (08:53)
[2024-03-08] MEDS: FEXOFENADINE 180 MG TABLET PO (08:53)
[2024-03-08] MEDS: MAGNESIUM OXIDE 400 MG TABLET PO (08:54)
[2024-03-08] MEDS: ASPIRIN 81 MG TABLET EC PO (08:54)
[2024-03-08] MEDS: AMLODIPINE 5 MG TABLET PO (08:54)
[2024-03-08] MEDS: SODIUM CHLORIDE 0.9 % (FLUSH) 10 ML SYRINGE 5 ML IVF (08:56)
[2024-03-08] MEDS: METOPROLOL SUCCINATE (XL) 100 MG TAB PO (08:56)
[2024-03-08] MEDS: VALACYCLOVIR HCL 500 MG TABLET 1000 MG PO (08:57)
--- NOTE | 2024-03-08 09:39 | PM.DS1 ---
DS: Providers Provider Time Seen by Provider: 08:58 Date Seen: 03/08/24 Date of admission: 03/05/24 12:08 Primary care physician: Katerine Bashir MD Admitting Clinician: Becki Martinez MD Consults: 03/05/24 12:07 Consult to Respiratory Therapy [CONS] Routine Comment: Reason(s) for RT Consult:: Consult Comment: COPD accessories 03/06/24 Consult to Physical Therapy [CONS] Routine Comment: Reason(s) for PT Consult:: Evaluate and Treat Any Restrictions?:: No Restrictions Attending Physician on discharge: Kaela Presley MD Date of Discharge: 03/08/24 DS: Diagnosis Discharge Diagnosis (1) Pneumonia: Status: Acute Problem details: - likely community acquired; given high risk status (COPD, CLL) will treat with Zosyn (03/05) - Blood cultures pending - given clinical improvement, transitioned from IV Zosyn to oral Doxycycline on 03/06/24 - Doing well, afebrile. BCx2 neg. Discharge home on doxycycline. (2) Acute on chronic hypoxic respiratory failure: Status: Resolved Problem details: - off oxygen x 36h (3) Chronic obstructive pulmonary disease: Status: Chronic Problem details: - with exacerbation on 03/05 - steroids (increased home dose of prednisone 10 mg per day to 40 mg per day on 03/05), nebs, antibiotics - GOLD C suspected by [place] aperture mask etcher, recently started Anoro Ellipta (hadn't been taking previously 2/2 financial constraints) (4) Hypokalemia: Status: Resolved Problem details: - will give daily supplement, follow (5) Type 2 diabetes mellitus: Status: Chronic Problem details: - noninsulin dependent, on Metformin - last A1C 7.7 on 01/20/24 - SSI during hospitalization, expect some degree of hyperglycemia given steroids - POC glucose elevated above inpatient goal (likely due to prednisone). Restart metformin (6) Herpes zoster anterior uveitis: Status: Chronic Problem details: - follows with [facility], on 10mg of Prednisone as an outpatient, also taking Valtrex thrice daily (7) Nasal congestion: Status: Acute (8) Lymphoma, small lymphocytic: Status: Chronic Problem details: Followed by oncology for CLL/SLL management. Not currently receiving treatment. DS: Summary Hospital Course Hospital Course: This is a 68-year-old female who was brought to the ER by her coworkers for concerns of dyspnea. This had been going on for a couple of days in she felt too short of breath to work. In the ER she was tachycardic and hypoxic. CTA revealed lymphadenopathy, which had been noted previously thought to be due to known CLL, and multifocal lung abnormalities concerning for vikki consolidative pneumonia. She also has history of tobacco use and was admitted for treatment of pneumonia and COPD exacerbation. She was started on Zosyn, given Solu-Medrol, nebs and supplemental oxygen for hypoxia. She made some improvements in was transitioned over to oral doxycycline, but continued to feel short of breath with any small activities, even just eating, so she was kept overnight for further observation and was much better today. She is able to do her ADLs without any shortness of breath today. She is discharged home in improved and stable condition. She has been off oxygen and tolerating an oral antibiotic for 36 hours. I will give her a course of prednisone to finish 5 days of steroids, and doxycycline to finish a total of 7 days of antibiotics. I have asked her to follow-up with her primary care provider. Time Spent with Patient Time attestation: Total time spent providing and/or coordinating discharge services: Exam Narrative: Exam Narrative: General: No acute distress. Awake, alert, oriented x3. No pallor. No jaundice. Oropharynx: Clear. Mucous membranes moist. Cardiovascular: Regular rate and rhythm. No murmurs, gallops, or rubs. Respiratory: Able to talk in complete sentences. No respiratory distress. Bibasilar rhonchi, improving, no wheezing. Abdomen: Bowel sounds present. Soft, nondistended, nontender. Extremities: No pedal edema. Const: Vital Signs, click to edit/add: Vital Signs - 24 hr 03/07/24 11:49 03/07/24 15:00 03/07/24 15:00 Temperature 98.5 F Pulse Rate 70 Pulse Rate [Pulse Oximeter] Pulse Rate [Right Radial] 80 86 Respiratory Rate 18 16 Blood Pressure [Le ft Arm] 146/76 H Pulse Oximetry 90 Oxygen Delivery Me thod Nasal Cannula Oxygen Flow Rate 0.5 03/07/24 15:00 03/07/24 15:00 03/07/24 19:00 Temperature 98.0 F 97.9 F Pulse Rate Pulse Rate [Pulse Oximeter] Pulse Rate [Right Radial] 86 87 Respiratory Rate 18 18 18 Blood Pressure [Le ft Arm] 139/73 155/86 H Pulse Oximetry 88 88 91 Oxygen Delivery Me thod Room Air Room Air Room Air Oxygen Flow Rate 03/07/24 23:28 03/07/24 23:58 03/08/24 00:00 Temperature 97.6 F Pulse Rate 73 Pulse Rate [Pulse Oximeter] 64 Pulse Rate [Right Radial] Respiratory Rate 20 20 Blood Pressure [Le ft Arm] 145/82 H Pulse Oximetry 93 93 Oxygen Delivery Me thod Room Air Room Air Oxygen Flow Rate 03/08/24 04:25 03/08/24 07:35 03/08/24 07:35 Temperature 97.6 F 96.7 F L Pulse Rate Pulse Rate [Pulse Oximeter] 64 70 Pulse Rate [Right Radial] Respiratory Rate 18 18 Blood Pressure [Le ft Arm] 142/77 H 152/94 H Pulse Oximetry 91 92 92 Oxygen Delivery Me thod Room Air Room Air Room Air Oxygen Flow Rate 03/08/24 08:05 Temperature Pulse Rate 83 Pulse Rate [Pulse Oximeter] Pulse Rate [Right Radial] Respiratory Rate Blood Pressure [Le ft Arm] Pulse Oximetry Oxygen Delivery Me thod Oxygen Flow Rate DS: Data Data Completed and Pending Labs on day of discharge: Preliminary micro results at discharge 03/05/24 08:45 Blood Culture - Preliminary Blood NO GROWTH AFTER 72 HOURS 03/05/24 07:10 Blood Culture - Preliminary Blood NO GROWTH AFTER 72 HOURS 03/05/2024 EKG: Undetermined rhythm, heart rate 123 beats per minute, septal infarct, age undetermined. Marked ST abnormality, possible inferior subendocardial injury. Study: XRay-Chest 1 VIEW-03/05/2024 7:51:08 AM Ordering Physician: [id number] Final Report: Indication: Dyspnea. Technique: One view(s) of the chest. Comparison: 01/08/2024 and 09/09/2023. Findings: Status post CABG. Dense atherosclerotic aortic calcifications. Bilateral hilar enlargement in keeping with lymphadenopathy seen on prior CT. The lungs are well inflated. There is increased airspace opacities in the right lower lung. No pleural effusion. No pneumothorax. Unchanged bones and soft tissues. Impression: 1. Increased right lower lung airspace opacification concerning for pneumonia. 2. Persistent hilar enlargement in keeping with known lymphadenopathy. Dictated by Glendy Andre MD @ 03/05/2024 7:59:19 AM Signed by: Glendy Andre MD @03/05/2024 7:59:19 AM (Electronic Signature) Study: CT-Chest PE PROTOCOL 95CC ISOVUE 370-03/05/2024 9:10:10 AM Ordering Physician: DR. HARDIN Final Report: INDICATION: Pneumonia. Hypoxia. Elevated D-dimer. History of CLL. COMPARISON: September 09, 2023 TECHNIQUE: : CT examination of the chest was performed with the uneventful intravenous administration of 95 cc of Isovue 370 while thin axial sections were obtained from above the apices of the lungs to the lung bases. Please note that all CT scans at this facility use dose modulation, iterative reconstruction, and/or weight-based dosing when appropriate to reduce radiation dose to as low as reasonably achievable. FINDINGS: : HEART and MEDIASTINUM: Bulky mediastinal lymphadenopathy again noted. This is similar to the prior study. There is also bilateral axillary and lower cervical region lymphadenopathy as visualized. This is likewise unchanged. No pericardial effusion. Heart size top normal. There are atherosclerotic vascular and valvular calcifications. There has been a median sternotomy. PULMONARY ARTERIAL CIRCULATION: There is no visible intraluminal filling defect to suggest pulmonary embolus. LUNGS: The lungs are abnormal. There are diffuse nodules bilaterally that appear to be primarily tree-in-bud nodules and more coalescent tree-in-bud nodules. This is probably largely due to infectious bronchiolitis and bronchopneumonia. The findings are much more pronounced on the right than on the left. There is vikki consolidation on the right especially in the right middle lobe and the right base. There is also atelectasis at the right base. Mildly prominent interstitial markings on the right probably due to engorged lymphatics from the lymphadenopathy. There is no cavitation. PLEURAL SPACES: No significant pleural fluid VISUALIZED UPPER ABDOMEN: Upper abdominal lymphadenopathy noted similar to the prior exam. The spleen appears enlarged but is incompletely visualized OSSEOUS STRUCTURES: Age-appropriate appearance. No acute fracture or destructive process. TUBES and LINES: None. IMPRESSION: 1. There is no finding of pulmonary embolus. 2. Extensive lymphadenopathy as described. This is similar to September 09, 2023. There is also marginal visualization of an enlarged spleen. These findings are compatible with the clinical history of CLL. 3. Multifocal lung finding bilaterally, right greater than left probably due to infectious bronchiolitis, bronchopneumonia and vikki consolidative pneumonia primarily in the right middle lobe and right base. There is no cavitation and there is no significant pleural fluid 4. Other nonacute appearing findings as above. Please note that all CT scans at this facility use dose modulation, iterative reconstruction, and/or weight-based dosing when appropriate to reduce radiation dose to as low as reasonably achievable. Dictated by Maxim Fernandez MD @ 03/05/2024 9:33:36 AM Signed by: Maxim Fernandez MD @03/05/2024 9:33:36 AM (Electronic Signature) Discharge Plan Discharge Disposition: Home, Self-Care Date of Admission: 03/05/24 12:08 Attending Provider on Discharge: Kaela Presley Primary Care Provider: Katerine Bashir Condition: Stable Anticipated Discharge Date/Time: 03/08/24 09:54 Discharge Medications: New prednisone 20 mg Tablet 40 mg PO DAILYWM 2 Days Qty: 4 0RF potassium chloride 20 mEq tablet extended release 20 meq PO DAILY Qty: 30 0RF doxycycline hyclate 100 mg Tablet 100 mg PO BID 3 Days Qty: 6 0RF guaifenesin [Mucinex] 600 mg Tablet Extended Release 12hr 600 mg PO BID 3 Days Qty: 6 0RF Continued ascorbic acid (vitamin C) 500 mg tablet,chewable 500 mg PO DAILY valacyclovir 1 gram tablet 1,000 mg PO TID difluprednate 0.05 % drops 1 drp ophthalmic (eye) BID Rx Instructions: start on Day 15 of therapy Biotrue Hydration Boost 0.5 % drops 1 drp ophthalmic (eye) TID albuterol sulfate 90 mcg/actuation HFA aerosol inhaler 2 puff inhalation Q4H PRN (Reason: shortness of breath or wheezing) Qty: 25.5 1RF albuterol sulfate 2.5 mg /3 mL (0.083 %) solution for nebulization 2.5 mg inhalation Q4H PRN (Reason: bronchospasm) Qty: 90 0RF aspirin 81 mg tablet,delayed release (DR/EC) 81 mg PO DAILY fexofenadine [Rosangela Allergy] 180 mg tablet 180 mg PO DAILY metoprolol succinate 100 mg tablet extended release 24 hr 100 mg PO DAILY Qty: 90 3RF atorvastatin 40 mg tablet 40 mg PO HS Qty: 90 3RF lisinopril 20 mg tablet 20 mg PO DAILY amlodipine 5 mg tablet 5 mg PO DAILY metformin 1,000 mg tablet 1,000 mg PO DAILY nitroglycerin 0.4 mg tablet, sublingual 0.4 mg sublingual Q5-15M PRN (Reason: chest pain) Qty: 30 0RF Rx Instructions: PRN CHEST PAIN Anoro Ellipta 62.5-25 mcg/actuation blister with device 1 inh inhalation ONCE Qty: 180 12RF Discharge Orders: Discharge Order (Routine); Ordered 03/08/24 Ordered By: Kaela Presley Activity Level: No Restrictions Discharge Diet: Regular Follow Up Appointments: Katerine Bashir MD [Primary Care Provider] - (5-7 days, [facility]) Forms: [facility] Info Instructions
--- NOTE | 2024-03-08 11:30 | PC.NURSE ---
Discharge: Patient pleasant and cooperative. Up independently, tolerating ambulation well today, still some SOB with exertion but patient reports improvement, o2 sats <90% on RA. IV removed with catheter intact. Vitals stable and WNL. Discharge instructions, follow up and medications reviewed. Questions answered as needed. Patient discharged via wheelchair @ 1130. picked up to take home.
== END 2024-03-08 11:30 | disposition home or self-care (01) | DRG 193 ==
LOC: ED 08:38 → MEDSURG 10:41
PROVIDERS: Admitting Provider Family Medicine; Emergency Provider Family Medicine; PCP Family Medicine; Visit Provider Family Medicine
DX: J18.9 Pneumonia, unspecified organism (principal); J96.21 Acute and chronic respiratory failure with hypoxia; J44.1 Chronic obstructive pulmonary disease with (acute) exacerbation; B02.32 Zoster iridocyclitis; C83.00 Small cell B-cell lymphoma, unspecified site; Z87.891 Personal history of nicotine dependence; E87.6 Hypokalemia; E11.9 Type 2 diabetes mellitus without complications; Z79.84 Long term (current) use of oral hypoglycemic drugs; R09.81 Nasal congestion; I10 Essential (primary) hypertension; E78.5 Hyperlipidemia, unspecified
CPT/HCPCS: 36415; 71045; 71275; 80048; 80053; 82803; 82962; 83735; 83880; 84145; 84484; 85025; 85379; 86140; 87040; 87631; 93005; 94640; 94664; 97116; 97161; 99284; 99285; 99291; A9270; J1650; J2543; J2919; J7030; J7050; J7512; Q9967

== ENCOUNTER 2024-03-11 10:44 | Outpatient (CLI) | payer MEDICARE, SELFPAY ==
--- OUTSIDE RECORDS SUMMARY | 2024-03-11 10:46 | XMS_ITS | Clinical Summary ---
Author Name Unknown Organization [facility] Address [address] [place] [address] Care Team Providers Care Magnetic Prospecting Supervisor Name Role Phone Elsewhere, Pcp Primary Care Provider Unavailabl e Source Comments Patient records contain information from all sites at [facility]. For routine questions regarding patient records, call [phone] during business hours, M-F 8:00 AM - 5:00 PM Central Time. Record requests for emergency care only can be directed to [phone] at any time.[facility] Allergies Active Allergy Reactions Criticality Noted Date Comments Aller Xt-[place] Blisters,Itching,Rash High 06/21/2020 Medications Medication Sig Dispensed Refills Start Date End Date Status atorvastatin (LIPITOR) 40 mg tablet Take 40 mg by mouth daily. 6 Active lisinopril (PRINIVIL,ZESTRI L) 40 mg tablet Take 20 mg by mouth daily. 7 Active aspirin (ADULT LOW DOSE ASPIRIN) [address] tablet Take 81 mg by mouth daily. 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 90 tablet 3 0 Active albuterol inhaler 0 Active ipratropium-albu teroL (DUONEB) 0.5-2.5 mg/3 mL nebulizer solution INHALE ONE VIAL VIA NEBULIZER EVERY 4 HOURS FOR 3 DAYS AND THEN CAN DECREASE TO NEEDED. 0 Active umeclidinium-janina anteroL (ANORO ELLIPTA) 62.5-25 mcg/actuation inhalerIndicatio ns:Chronic Obstructive Pulmonary Disease (HCC) Inhale 1 puff once daily. 1 each 11 0 Active difluprednate (DUREZOL) 0.05 % ophthalmic emulsion Administer 1 drop into the right eye 4 (four) times a day. Stop prednisolone when you start difluprednate 5 mL 3 4 Active valACYclovir (VALTREX) 1000 mg tablet Take 1 tablet (1,000 mg total) by mouth 3 (three) times a day. 270 tablet 1 4 Active predniSONE (DELTASONE) 5 mg tablet Take 2 tablets (10 mg total) by mouth daily. Take the entire dose in the AM with food 60 tablet 1 4 Active prednisoLONE acetate (PRED FORTE) 1 % ophthalmic suspension Administer 1 drop into the right eye every hour while awake. 4 03/10/20 24 Discontinued Hospital, Clinic, or Other Facility Administered Medication [...] Encounters Date Type Department Care Team Description 03/11/2024 Clinical Communication Department of Ophthalmology in [place], [place] [address] [place] [address] Kenya Garza M.D. 03/10/2024 Clinical Communication Department of Ophthalmology in [place], [place] [address] [place] [address] Kenya Garza M.D. 02/25/2024 4:30 PM CDT Telemedicine Department of Neurology in [place], [place] [address] [place] [phone] Piter Baez M.D. Posterior Reversible Encephalopathy Syndrome (Primary Dx) 02/20/2024 3:05 PM CDT - 02/20/2024 11:59 PM CDT Hospital Encounter Department of Radiology, [facility] in [place], [place] [address] [place] [phone] Piter Baez M.D. Posterior Reversible Encephalopathy Syndrome Discharge Disposition: Home or Self Care 02/20/2024 1:00 PM CDT Comprehensive Visit Department of Neurology in [place], [place] [address] [place] [phone] Piter Baez M.D. Posterior Reversible Encephalopathy Syndrome 02/20/2024 11:15 AM CDT Office Visit Department of Ophthalmology in [place], [place] [address] [place] [phone] Kenya Garza M.D. Panuveitis Right (Primary Dx); Necrosis Retinal Acute Right 02/20/2024 10:00 AM CDT Ancillary Procedure Department of Ophthalmology in [place], [place] [address] [place] [phone] Kenya Garza M.D. Panuveitis Right; Necrosis Retinal Acute Right 02/20/2024 9:50 AM CDT Ancillary Procedure Department of Ophthalmology in [place], [place] [address] [place] [phone] Kenya Garza M.D. Panuveitis Right; Necrosis Retinal Acute Right 02/20/2024 12:10 AM CDT Ancillary Procedure Department of Ophthalmology 02/20/2024 12:05 AM CDT Ancillary Procedure Department of Ophthalmology 02/20/2024 Ancillary Procedure Department of Ophthalmology 01/31/2024 Clinical Communication Department of Neurology in [place], [place] [address] [place] [phone] Piter Baez M.D. Pre-visit Testing Orders 01/23/2024 12:00 PM CDT Office Visit Department of Ophthalmology in [place], [place] [address] [place] [phone] Kenya Garza M.D. Panuveitis Right (Primary Dx); Necrosis Retinal Acute Right 01/20/2024 [facility] AND [address] [address] Katerine Bashir M.D. Posterior Reversible Encephalopathy Syndrome (Primary Dx) 01/10/2024 Clinical Communication Department of Ophthalmology in [place], [place] [address] [place] [address] Kenya Garza M.D. Outside hospitalization and medications 01/01/2024 12:45 PM SENIOR PRODUCTION SUPERVISOR Office Visit Department of Ophthalmology in [place], [place] [address] [place] [address] Kenya Garza M.D. Necrosis Retinal Acute Right (Primary Dx); Panuveitis Right 01/01/2024 12:30 PM SENIOR PRODUCTION SUPERVISOR Ancillary Procedure Department of Ophthalmology in [place], [place] [address] [place] [address] Kenya Garza M.D. Panuveitis Right 01/01/2024 Ancillary Procedure Department of Ophthalmology 12/18/2023 Refill Department of Ophthalmology in [place], [place] [address] [place] [address] Kenya Garza M.D. Med Change Request 12/17/2023 3:00 PM SENIOR PRODUCTION SUPERVISOR Ancillary Procedure Department of Ophthalmology in [place], [place] [address] [place] [address] Kenya Garza M.D. Panuveitis Right 12/17/2023 1:30 PM SENIOR PRODUCTION SUPERVISOR Ancillary Procedure Department of Ophthalmology 12/17/2023 1:30 PM SENIOR PRODUCTION SUPERVISOR Office Visit Department of Ophthalmology in [place], [place] [address] [place] [address] Kenya Garza M.D. Panuveitis Right (Primary Dx) from Last 3 Months Family History Medical History Relation Name Comments Lymphoma Brother Kannan Podhora 2018 Prostate cancer Father Podhora 2000 Stroke Father Podhora Coronary artery disease Mother Afia Thibodeaux Not sure of dates no bypass Diabetes Mother Afia Hawkinshora Heart attack Mother Afia Thibodeaux Relation Name Status Comments Brother Kannan Podhora Father Podhora Mother Afia Thibodeaux Social History Tobacco Use Types Packs/Day Years Used Date Smoking Tobacco: Light Smoker Cigarettes 0.5 44 Started: 02/26/1980 Smokeless Tobacco: Never Comments:On again off again Alcohol Use Standard Drinks/Week Comments Yes 0 (1 standard drink = 0.6 oz pur e alcohol) [facility] Utilities Answer Date Recorded In [...] Never 06/27/2020 How often do you attend shinto or caodaism serv ices? Never 06/27/2020 Do you belong to any clubs o r organizations such as shinto groups, unions, fraternal or athletic groups, or [...] medical care, and heating? Somewhat hard 06/27/2020 [facility] of Occupat ional Health - Occupational Stress [...] your living situation today? I have a [facility] to live 11/05/2023 Education Answer Date [...] Care Team (Late st Contact Info) Description 03/13/2024 8:00 AM CDT Ancillary Procedure Department of Ophthalmology in [place], [place] [address] [place] [phone] Kenya Garza M.D. [address] [place] [phone] 03/13/2024 11:00 AM CDT Ancillary Procedure Department of Ophthalmology in [place], [place] [address] [place] [phone] Kenya Garza M.D. [address] [place] [phone] 03/13/2024 11:30 AM CDT Office Visit Department of Ophthalmology in [place], [place] [address] [place] [phone] Kenya Garza M.D. [address] [place] [phone] 03/13/2024 12:00 PM CDT Ancillary Procedure Department of Ophthalmology in [place], [place] [address] [place] [phone] Kenya Garza M.D. [address] [place] [phone] Health Maintenance Due Date Last Done Comments Bone Density Scan (Osteoporo sis Screen) 1957 CT Colonography 1957 Colonoscopy 1957 FIT 1957 Hepatitis C Screening 1957 Lipid (Cholesterol) Screening 1957 Mammogram 1957 Office Visit for Blood Press ure Check / Re-check 1957 Tobacco Cessation counseling 1957 Lung Cancer Screening 03/31/2021 03/31/2020 COVID-19 Vaccine (4 - 2022-2 4 season) 2023 07/18/2021, 02/14/2021, 01/24/2021 [...] 4:08 PM CDT Posterior Reversible Encephalopathy Syndrome OPTICAL COHERENCE TOMOGRAPHY - MACULA/RETINA - OU - BOTH EYES Routine 02/20/2024 11:58 AM CDT Panuveitis Right Necrosis Retinal Acute Right B SCAN - OD - RIGHT EYE [...] - BOTH EYES Routine 01/01/2024 12:34 PM SENIOR PRODUCTION SUPERVISOR Panuveitis Right OPHTHALMOLOGY IMAGE EXAM Routine 01/01/2024 12:00 AM SENIOR PRODUCTION SUPERVISOR AUTOMATED VF - INTERMEDIATE - OU - BOTH EYES Routine 12/17/2023 3:30 PM SENIOR PRODUCTION SUPERVISOR Panuveitis Right OPHTHALMOLOGY IMAGE EXAM Routine 12/17/2023 1:[address] CHEST WITH IV CONTRAST RAD - [...] findings. Nothing for PRES. Piter Baez M.D. IMG MRI PROCEDURES * Optical Coherence Tomography - Macula/Retina - OU - Both Eyes (02/20/2024 11:58 AM CDT) CMT L Microns 252 um OPH THALMOLOGY IMAGING EXAM Narrative OPHTHALMOLOGY IMAGING EXAM - 03/10/2024 2:36 PM CDT Right Eye Reliability was good. OCT device used was Spectralis . Scan locations included macula. Left Eye Reliability was good. OCT device used was Spectralis . Scan locations included macula. Central macular thickness 252 um. Notes KX RIGHT - Increased choroidal folds vs 12/2023 - slightly decreased image quality. The outer retinal structures are still ratty and there are still two subretinal deposits just temporal to the fovea. Interim development of a small amount of peripapillary subretinal fluid plus persistent peripapillary intraretinal fluid. Epiretinal membrane but no pre-retinal deposits as well. Vitreous still attached to the optic nerve. LEFT - overall normal macular thickness, intact foveal depression and retinal layers, no intra or subretinal fluid. Attached posterior hyaloid. Choroid is not thickened. Kenya Garza M.D. OPHTH TOMOGRAPHY OPHTHALMOLOGY IMAGING EXAM * B-Scan Ultrasound - OD - Right Eye (02/20/2024 11:28 AM CDT) Narrative OPHTHALMOLGY NON-IMAGING ORDERS - 02/20/2024 2:13 PM CDT 02/20/2024 B-Scan Right Eye: dense vitreous opacities, probable posterior vitreous detachment, vitreous membranes possibly extending to disc, detachments vs opacities - cannot rule out choroidal detachment, thickened fundus appearance. BriannaK Kenya Garza M.D. OPHTH ULTRASOUND Performing Organization Address [facility] de Phone Number OPHTHALMOLGY NON-IMAGING ORDERS * Eyes Spectralis OCT-Ophthalmology Image Exam (02/20/2024 12:10 AM CDT) Only the most recent of5 resultswithin the time period is included. Narrative IINM - 02/20/2024 12:05 PM CDT This order has been created and auto-finalized to support the import of images acquired without order. The clinical documentation to support these images can be found on the encounter that produced images. Provider Not In System IMG NON RAD IMAGI NG PROCEDURES Performing Organization Address [facility] de Phone Number IIMS NA * MR HEAD BRAIN WWO-Outside MR Neuro (01/09/2024 12:10 AM CDT) Narrative IINM - 02/21/2024 4:19 PM CDT This order [...] IMG MRI PROCEDURE S Performing Organization Address [facility] de Phone Number IIMS NA * Optical Coherence Tomography - Macula/Retina - OU - Both Eyes (01/01/2024 12:34 PM SENIOR PRODUCTION SUPERVISOR) CMT L Microns 247 um OPH THALMOLOGY IMAGING EXAM Narrative OPHTHALMOLOGY IMAGING EXAM - 01/01/2024 12:45 PM SENIOR PRODUCTION SUPERVISOR Right Eye Reliability was good. OCT device [...] Garza M.D. OPHTH TOMOGRAPHY Performing Organization Address [facility] Co de Phone Number OPHTHALMOLOGY IMAGING EXAM * Automated VF - Intermediate - OU - Both Eyes (12/17/2023 3:30 PM SENIOR PRODUCTION SUPERVISOR) Narrative OPHTHALMOLOGY IMAGING EXAM - 12/17/2023 6:34 PM SENIOR PRODUCTION SUPERVISOR Right Eye Automated visual field device used was other. Left Eye Automated visual field device used was other. Notes [facility] Binocular drivers test - both eyes - horizontal 120 degrees Kenya Garza M.D. OPHTH VISUAL FIELD Performing Organization Address [facility] de Phone Number OPHTHALMOLOGY IMAGING EXAM [...] Recently Relevant to Health Maintenance Care Teams Magnetic Prospecting Supervisor Relationship Specialty Start Date End Date Elsewhere, Pcp PCP - General Internal Medicine 05/29/19
--- OUTSIDE RECORDS SUMMARY | 2024-03-11 10:47 | XMS_ITS | Encounter Summary ---
Author Name Unknown Organization [facility] Address [address] [place] [address] Care Team Providers Care Critical Care Unit Nurse Name Role Phone Elsewhere, Pcp Primary Care Provider Unavailabl e Encounter Details Date Type Department Care Team (Latest Contact Info) Description 03/11/2024 Clinical Communication Department of Ophthalmology in [place], [place] [address] [place] [address] Kenya Garza M.D. [address] [place] [address] Social History Tobacco Use Types Packs/Day Years Used Date Smoking Tobacco: Light Smoker Cigarettes 0.5 44 Started: 02/26/1980 Smokeless Tobacco: Never Comments:On again off again Alcohol Use Standard Drinks/Week Comments Yes 0 (1 standard drink = 0.6 oz pur e alcohol) [facility] Utilities Answer Date Recorded In the past 12 months has [employer], gas, oil, or water company threatened to [...] Never 06/27/2020 How often do you attend confucianism or islam serv ices? Never 06/27/2020 Do you belong to any clubs o r organizations such as confucianism groups, unions, fraternal or athletic groups, or [...] medical care, and heating? Somewhat hard 06/27/2020 [facility] [place] of Occupat ional Health - Occupational Stress [...] your living situation today? I have a [facility] place to live 11/05/2023 Education Answer [...] CDT Ancillary Procedure Department of Ophthalmology in [place], [place] [address] [place] [phone] Kenya Garza M.D. [address] [place] [phone] 03/13/2024 11:00 AM CDT Ancillary Procedure Department of Ophthalmology in [place], [place] [address] [place] [phone] Kenya Garza M.D. [address] [place] [phone] 03/13/2024 11:30 AM CDT Office Visit Department of Ophthalmology in [place], [place] [address] [place] [phone] Kenya Garza M.D. [address] [place] [phone] 03/13/2024 12:00 PM CDT Ancillary Procedure Department of Ophthalmology in [place], [place] [address] [place] [phone] Kenya Garza M.D. [address] [place] [phone] documented as of this encounter Visit Diagnoses Not on filedocumented in this encounter Care Teams Critical Care Unit Nurse Relationship Specialty Start Date End Date Elsewhere, Pcp PCP - General Internal Medicine 05/29/19 documented as of this encounter
--- OUTSIDE RECORDS SUMMARY | 2024-03-11 10:47 | XMS_ITS | Encounter Summary ---
Author Name Unknown Organization [facility] Address [address] [place] [address] Care Team Providers Care Chargemaster Analyst Name Role Phone Elsewhere, Pcp Primary Care [...] = 0.6 oz pur e alcohol) [facility] Utilities Answer Date Recorded In the past 12 months has [employer], gas, oil, or water company threatened [...] How often do you attend evangelical or methodist serv ices? Never 06/27/2020 Do you belong [...] [facility] of Occupat ional [facility] - Occupational Stress Questionnaire Answer Date [...] your living situation today? I have a [facility] place to live 11/05/2023 Education [...] CDT Ancillary Procedure Department of Ophthalmology in [place], [place] [address] [place] [phone] Kenya Garza M.D. [address] [place] [phone] 03/13/2024 11:00 AM CDT Ancillary Procedure Department of Ophthalmology in [place], [place] [address] [place] [phone] Kenya Garza M.D. [address] [place] [phone] 03/13/2024 11:30 AM CDT Office Visit Department of Ophthalmology in [place], [place] [address] [place] [phone] Kenya Garza M.D. [address] [place] [phone] 03/13/2024 12:00 PM CDT Ancillary Procedure Department of Ophthalmology in [place], [place] [address] [place] [phone] Kenya Garza M.D. [address] [place] [phone] documented as of this encounter Procedures Procedure Name Priority Date/Time Associated Diagnosis Comments OPHTHALMOLOGY IMAGE EXAM Routine 02/20/2024 12:00 AM CDT documented in this encounter Results * Video-Eyes US-Eye [id number] Image Exam (02/20/2024 12:00 AM CDT) Narrative [...] on filedocumented in this encounter Care Teams Chargemaster Analyst Relationship Specialty Start Date End Date Elsewhere, Pcp PCP - General Internal Medicine 05/29/19 documented as of this encounter
--- OUTSIDE RECORDS SUMMARY | 2024-03-11 10:47 | XMS_ITS | Encounter Summary ---
Author Name Unknown Organization [facility] Address [address] [place] [address] Care Team Providers Care Digital Imager Name Role Phone Elsewhere, Pcp Primary Care Provider Unavailabl e Reason for Visit * Outpatient (Routine) - Closed Specialty Diagnoses / Procedures Referred By Contmuriel t Referred To Contact Neurology Piter Baez M.D. [address] [place] [address] [facility] Referral ID Status Reason Start Date Expiration Date Visits Re quested Visits Authorized [id number] Closed 02/20/2024 08/21/2025 1 1 Encounter Details Date Type Department Care Team (Latest Contact Info) Description 02/25/2024 4:30 PM CDT Telemedicine Department of Neurology in [place], [place] [address] [place] [phone] Piter Baez M.D. [address] [place] [phone] Posterior Reversible Encephalopathy Syndrome (Primary Dx) Social History Tobacco Use Types Packs/Day Years Used Date Smoking Tobacco: Light Smoker Cigarettes 0.5 44 Started: 02/26/1980 Smokeless Tobacco: Never Comments:On again off again Alcohol Use Standard Drinks/Week Comments Yes 0 (1 standard drink = 0.6 oz pur e alcohol) [facility] Utilities Answer Date Recorded In [...] How often do you attend gnosticism or restorationist serv ices? Never 06/27/2020 Do [...] medical care, and heating? Somewhat hard 06/27/2020 [facility] [place] of Occupat ional Health - Occupational Stress [...] your living situation today? I have a [facility] place to live 11/05/2023 Education Answer [...] audio/video technology by Piter Baez M.D. in [facility] to the patient at home. [...] CDT Ancillary Procedure Department of Ophthalmology in [address] [phone] Kenya Garza M.D. [address] [place] [phone] 03/13/2024 11:00 AM CDT Ancillary Procedure Department of Ophthalmology in [address] [phone] Kenya Garza M.D. [address] [place] [phone] 03/13/2024 11:30 AM CDT Office Visit Department of Ophthalmology in [place], [place] [address] [place] [phone] Kenya Garza M.D. [address] [place] [phone] 03/13/2024 12:00 PM CDT Ancillary Procedure Department of Ophthalmology in [place], [place] [address] [place] [address] Kenya Garza M.D. [address] [place] [phone] documented as of this encounter Visit Diagnoses Diagnosis Posterior Reversible Encephalopathy Syndrome- Primary documented in this encounter Care Teams Digital Imager Relationship Specialty Start Date End Date Elsewhere, Pcp PCP - General Internal Medicine 05/29/19 documented as of this encounter
--- OUTSIDE RECORDS SUMMARY | 2024-03-11 10:47 | XMS_ITS | Encounter Summary ---
Author Name Unknown Organization [facility] Address [address] [place] [address] Care Team Providers Care Campus Director Name Role Phone Elsewhere, Pcp Primary Care Provider Unavailabl e Reason for Referral * Outpatient (Routine) - Authorized Specialty Diagnoses / Procedures Referred By Apolinar lopez Referred To Contact Ophthalmology Diagnoses Panuveitis Right Necrosis Retinal Acute Right Kenya Garza M.D. [address] [place] [address] [facility] Referral ID Status Reason Start Date Expiration Date V isits Requested Visits Authorized [id number] Authorized 02/20/2024 08/21/2025 1 1 Reason for Visit * Outpatient (Routine) - Closed Specialty Diagnoses / Procedures Referred By Apolinar lopez Referred To Contact Ophthalmology Diagnoses Panuveitis Right Necrosis Retinal Acute Right Kenya Garza M.D. [address] [place] [address] [facility] Referral ID Status Reason Start Date Expiration Date Visits Re quested Visits Authorized [id number] Closed 01/23/2024 07/24/2025 1 1 Encounter Details Date Type Department Care Team (Latest Contact Info) Description 02/20/2024 11:15 AM CDT Office Visit Department of Ophthalmology in [place], [place] [address] [place] [phone] Kenya Garza M.D. [address] [place] [phone] Panuveitis Right (Primary Dx); Necrosis Retinal Acute Right Social History Tobacco Use Types Packs/Day Years Used Date Smoking Tobacco: Light Smoker Cigarettes 0.5 44 Started: 02/26/1980 Smokeless Tobacco: Never Comments:On again off again Alcohol Use Standard Drinks/Week Comments Yes 0 (1 standard drink = 0.6 oz pur e alcohol) [facility] Utilities Answer Date Recorded In the past 12 months has e electric, gas, oil, or water [employer] threatened to shut off services in your home? No 11/05/2023 Social Connection and Isolation Panel [NHANES] A nswer Date Recorded In a typical week, how many times do you talk on the phone with family, friends, or neighbors? Once a week 06/27/2020 How often do you get together with friends or re latives? Never 06/27/2020 How often do you attend shinto or jew serv ices? Never 06/27/2020 Do [...] medical care, and heating? Somewhat hard 06/27/2020 [facility] [place] of Occupat ional Health - Occupational Stress [...] your living situation today? I have a [facility] place to live 11/05/2023 Education Answer Date [...] Progress Notes * Kenya Garza M.D. - 02/20/2024 11:15 AM CDT HPI - 11/05/23 Mrs. Alexandra Dixon is a 68 year old woman who is referred by Dr. Daisy Ivy for evaluation ofuveitis. She woke up with a red, painful, tearing right eye on 10/16/23. Was seen in urgent care on 10/19/23and diagnosed with pink eye, treated with tobramycin drops without improvement. She saw machine stone polisher apprentice Dr. Daisy Ivy on 10/23/23. [facility] was [...] has not been able to see her identifier horse oncologist recently because every time she went to an appointment she was sent to the emergency room due to elevated blood pressure. In August 2023, she was sent from an infusion center to [place] emergency department where shewas found to have oxygen saturations of 78%. CT imaging showed worsening bilateral ground glass opacities. A CT scan was negative for pulmonary embolism. She was transferred to [facility] for additional pulmonology care. On 09/12/23 [...] three times in the past three months: [place] (09/02/23 for hypercalcemiaand acute kidney injury - had CT chest/abdomen/pelvis to assess for malignancy), [place] [facility] again. Each time she saw [...] to monitor. (Her oncologist is at [facility].) MEDICATIONS Prednisolone every hour while [...] shallow retinal detachment. No T sign noted. [facility] Macula OCT of the right eye [...] membranes. Possible posterior thickening. No T sign. 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 [facility] PLAN: It has been 21 days since [...] of pneumocystis pneumonia. (To 15 mg daily) 01/23/24 She was hospitalized due to altered mental status. Ultimately the diagnosis was PRES. She is supposed to follow up with neurology - has been referred here. She remained on the antiviral medication while she was admitted. Durezol BID right eye (started 11/13/23) Valacyclovir 1000 mg TID (started 11/06/23) Prednisone 15 mg daily (started 20 mg 11/26/23, 01/01/24 15 mg) [facility] without correction HM and 20/20 ICare [...] nasal. The left eye has no inflammation. It has been 11 weeks since intravitreal [...] the other cause of persistently decreased vision. Continue PO valacyclovir 1 g TID Continue Durezol - 2x/day, right eye Use preservative free artificial tears 2-3x/day Decrease PO prednisone to 10 mg daily TODAY - 02/20/24 Vision seems about the same. When she covers her left eye, vision might be a little brighter in theright eye. She will have a PET scan on 03/05/24 - she had some lab testing for oncology follow up and she was noted to have low immunoglobulins. MEDICATIONS Durezol BID right eye (started 11/13/23) Valacyclovir 1000 mg TID (started 11/06/23) Prednisone 10 mg daily (started 20 mg 11/26/23, 01/01/24 15 mg, 01/24/24 10 mg) Status post intravitreal foscarnet & ganciclovir on 11/05/23 EXAM VA without correction HM and 20/30 (PH 20/20) ICare pressures 3 & 11 The right eye anterior chamber cell is [...] decreased choroidal thickening. PLAN It has been 15 weeks since intravitreal foscarnet and ganciclovir and 14 wks on PO valacyclovir. She started PO prednisone 20 mg daily on 11/26/2023, 15 mg as of 01/02/24, now 10 mg since 01/24/24. The peripheral patches of retinitis in the [...] this time. We will decrease PO prednisone further to 5 mg daily. 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 Follow up in 03/06/24 noon: [facility], [facility], dilate both eyes, US and UBM right eye, OCT both eyes, WMS documented in this encounter Plan of Treatment Upcoming Encounters Date Type Department Care Team (Late st Contact Info) Description 03/13/2024 8:00 AM CDT Ancillary Procedure Department of Ophthalmology in [place], [place] [address] [place] [phone] Kenya Garza M.D. [address] [place] [phone] 03/13/2024 11:00 AM CDT Ancillary Procedure Department of Ophthalmology in [place], [place] [address] [place] [phone] Kenya Garza M.D. [address] [place] [phone] 03/13/2024 11:30 AM CDT Office Visit Department of Ophthalmology in [place], [place] [address] [place] [phone] Kenya Garza M.D. [address] [place] [phone] 03/13/2024 12:00 PM CDT Ancillary Procedure Department of Ophthalmology in [place], [place] [address] [place] [phone] Kenya Garza M.D. [address] [place] [phone] Scheduled Orders Name Type Priority Associated Diagnoses [...] Right documented in this encounter Care Teams Campus Director Relationship Specialty Start Date End Date Elsewhere, Pcp PCP - General Internal Medicine 05/29/19 documented as of this encounter
--- OUTSIDE RECORDS SUMMARY | 2024-03-11 10:47 | XMS_ITS | Encounter Summary ---
Author Name Unknown Organization [facility] Address [address] [place] [address] Care Team Providers Care Wildlife Control Operator Name Role Phone Elsewhere, Pcp Primary Care Provider Unavailabl e Encounter Details Date Type Department Care Team (Latest Contact Info) Description 02/20/2024 10:00 AM CDT Ancillary Procedure Department of Ophthalmology in [place], [place] [address] [place] [address] Kenya Garza M.D. [address] [place] [address] Panuveitis Right; Necrosis Retinal Acute Right Social History Tobacco Use Types Packs/Day Years Used Date Smoking Tobacco: Light Smoker Cigarettes 0.5 44 Started: 02/26/1980 Smokeless Tobacco: Never Comments:On again off again Alcohol Use Standard Drinks/Week Comments Yes 0 (1 standard drink = 0.6 oz pur e alcohol) [facility] Utilities Answer Date Recorded In the past 12 months has [employer], gas, oil, or water [employer] threatened to shut off services in your home? No 11/05/2023 Social Connection and Isolation Panel [NHANES] A nswer Date Recorded In a typical week, how many times do you talk on the phone with family, friends, or neighbors? Once a week 06/27/2020 How often do you get together with friends or re latives? Never 06/27/2020 How often do you attend adventism or scientology serv ices? Never 06/27/2020 Do you belong to any clubs o r organizations such as adventism groups, unions, fraternal or athletic groups, or [...] care, and heating? Somewhat hard 06/27/2020 [facility] of Occupat ional Health - Occupational [...] CDT Ancillary Procedure Department of Ophthalmology in [place], [place] [address] [place] [phone] Kenya Garza M.D. [address] [place] [phone] 03/13/2024 11:00 AM CDT Ancillary Procedure Department of Ophthalmology in [place], [place] [address] [place] [phone] Kenya Garza M.D. [address] [place] [phone] 03/13/2024 11:30 AM CDT Office Visit Department of Ophthalmology in [place], [place] [address] [place] [phone] Kenya Garza M.D. [address] [place] [phone] 03/13/2024 12:00 PM CDT Ancillary Procedure Department of Ophthalmology in [place], [place] [address] [place] [phone] Kenya Garza M.D. [address] [place] [phone] documented as of this encounter Procedures Procedure [...] Right documented in this encounter Care Teams Wildlife Control Operator Relationship Specialty Start Date End Date Elsewhere, Pcp PCP - General Internal Medicine 05/29/19 documented as of this encounter
--- OUTSIDE RECORDS SUMMARY | 2024-03-11 10:47 | XMS_ITS ---
Author Name Unknown Organization [facility] Address [address] [place] [address] Care Team Providers Care Tank Riveter Name Role Phone Unavailable Unavailable Unavailable Surgery Details Not on file Complications Check Surgery Details section. Procedure Estimated Blood Loss Check Surgery Details section. Procedure Findings Check Surgery Details section. Procedure Specimens Taken Check Surgery Details section.
--- OUTSIDE RECORDS SUMMARY | 2024-03-11 10:47 | XMS_ITS | Referral Summary ---
Author Name Unknown Organization [facility] Address [address] [place] [address] Care Team Providers Care Sleep Lab Technologist Name Role Phone Elsewhere, Pcp Primary Care Provider Unavailabl e Source Comments Patient records contain information from all sites at [facility]. For routine questions regarding patient records, call [phone] during business hours, M-F 8:00 AM - 5:00 PM Central Time. Record requests for emergency care only can be directed to [phone] at any time.[facility] Encounters Date Type Department Care Team Description 03/11/2024 Clinical Communication Department of Ophthalmology in [place], [place] [address] [place] [address] Kenya Garza M.D. 03/10/2024 Clinical Communication Department of Ophthalmology in [place], [place] [address] [place] [phone] Kenya Garza M.D. 02/25/2024 4:30 PM CDT Telemedicine Department of Neurology in [place], [place] [address] [place] [phone] Piter Baez M.D. Posterior Reversible Encephalopathy Syndrome (Primary Dx) 02/20/2024 12:10 AM CDT Ancillary Procedure Department of Ophthalmology 02/20/2024 12:05 AM CDT Ancillary Procedure Department of Ophthalmology 02/20/2024 Ancillary Procedure Department of Ophthalmology 02/20/2024 3:05 PM CDT - 02/20/2024 11:59 PM CDT Hospital Encounter Department of Radiology, [facility] in [place], [place] [address] [place] [address] Piter Baez M.D. Posterior Reversible Encephalopathy Syndrome Discharge Disposition: Home or Self Care 02/20/2024 1:00 PM CDT Comprehensive Visit Department of Neurology in [place], [place] [address] [place] [phone] Piter Baez M.D. Posterior Reversible Encephalopathy Syndrome 02/20/2024 11:15 AM CDT Office Visit Department of Ophthalmology in [place], [place] [address] [place] [phone] Kenya Garza M.D. Panuveitis Right (Primary Dx); Necrosis Retinal Acute Right 02/20/2024 10:00 AM CDT Ancillary Procedure Department of Ophthalmology in [place], [place] [address] [place] [phone] Kenya Garza M.D. Panuveitis Right; Necrosis Retinal Acute Right 02/20/2024 9:50 AM CDT Ancillary Procedure Department of Ophthalmology in [place], [place] [address] [place] [phone] Kenya Garza M.D. Panuveitis Right; Necrosis Retinal Acute Right 01/31/2024 Clinical Communication Department of Neurology in [address] [phone] Piter Baez M.D. Pre-visit Testing Orders 01/23/2024 12:00 PM CDT Office Visit Department of Ophthalmology in [place], [place] [address] [place] [phone] Kenya Garza M.D. Panuveitis Right (Primary Dx); Necrosis Retinal Acute Right 01/20/2024 [facility] [address] [place] [address] Katerine Bashir M.D. Posterior Reversible Encephalopathy Syndrome (Primary Dx) 01/10/2024 Clinical Communication Department of Ophthalmology in [place], [place] [address] [place] [phone] Kenya Garza M.D. Outside hospitalization and medications 01/01/2024 Ancillary Procedure Department of Ophthalmology 01/01/2024 12:30 PM OIL FIRE SPECIALIST Ancillary Procedure Department of Ophthalmology in [place], [place] [address] [place] [address] Kenya Garza M.D. Panuveitis Right 01/01/2024 12:45 PM OIL FIRE SPECIALIST Office Visit Department of Ophthalmology in [place], [place] [address] [place] [address] Kenya Garza M.D. Necrosis Retinal Acute Right (Primary Dx); Panuveitis Right 12/18/2023 Refill Department of Ophthalmology in [place], [place] [address] [place] [phone] Kenya Garza M.D. Med Change Request 12/17/2023 1:30 PM OIL FIRE SPECIALIST Ancillary Procedure Department of Ophthalmology 12/17/2023 3:00 PM OIL FIRE SPECIALIST Ancillary Procedure Department of Ophthalmology in [place], [place] [address] [place] [phone] Kenya Garza M.D. Panuveitis Right 12/17/2023 1:30 PM OIL FIRE SPECIALIST Office Visit Department of Ophthalmology in [place], [place] [address] [place] [address] Kenya Garza M.D. Panuveitis Right (Primary Dx) from Last 3 Months Allergies Active Allergy Reactions Criticality Noted Date Comments Aller Xt-[place] Pollen-Magdalena Blisters,Itching,Rash High 06/21/2020 Medications Medication Sig Dispensed [...] In the past 12 months has e [employer], gas, oil, or water [employer] threatened to shut off services in your home? No 11/05/2023 Social Connection and Isolation Panel [NHANES] A nswer Date Recorded In a typical week, how many times do you talk on the phone with family, friends, or neighbors? Once a week 06/27/2020 How often do you get together with friends or re latives? Never 06/27/2020 How often do you attend buddhism or yarsanism serv ices? Never 06/27/2020 Do you belong [...] medical care, and heating? Somewhat hard 06/27/2020 [facility] of Occupat ional Health - Occupational [...] your living situation today? I have a [facility] place to live 11/05/2023 Education Answer [...] Ancillary Procedure Department of Ophthalmology in [place], [place] [address] [place] [phone] Kenya Garza M.D. [address] [place] [phone] 03/13/2024 11:00 AM CDT Ancillary Procedure Department of Ophthalmology in [place], [place] [address] [place] [phone] Kenya Garza M.D. [address] [place] [phone] 03/13/2024 11:30 AM CDT Office Visit Department of Ophthalmology in [place], [place] [address] [place] [phone] Kenya Garza M.D. [address] [place] [phone] 03/13/2024 12:00 PM CDT Ancillary Procedure Department of Ophthalmology in [place], [place] [address] [place] [phone] Kenya Garza M.D. [address] [place] [phone] Procedures Procedure Name Priority Date/Time Associated Diagnosis [...] - BOTH EYES Routine 01/01/2024 12:34 PM OIL FIRE SPECIALIST Panuveitis Right OPHTHALMOLOGY IMAGE EXAM Routine 01/01/2024 12:00 AM OIL FIRE SPECIALIST AUTOMATED VF - INTERMEDIATE - OU - BOTH EYES Routine 12/17/2023 3:30 PM OIL FIRE SPECIALIST Panuveitis Right OPHTHALMOLOGY IMAGE EXAM Routine 12/17/2023 1:[address] CHEST WITH IV CONTRAST RAD - Routine (most inpatients and all outpatients) 03/31/2020 8:50 AM CDT Nodule Pulmonary from Last 3 Months or Most Recently Relevant to Health Maintenance Results * MR Brain without and with IV Contrast (02/20/2024 4:08 PM CDT) Anatomical Region Laterality Modality Head, Brain, Neuroradiology RST LOS, Neuroradiology [facility], Neuroradiology FLA LOS N/A Magnetic Resonance Impressions [...] Garza M.D. OPHTH ULTRASOUND Performing Organization Address [facility] de Phone Number OPHTHALMOLGY NON-IMAGING ORDERS * [...] RAD IMAGI NG PROCEDURES Performing Organization Address [facility] de Phone Number IIMS NA * [...] defined workflow. ?? Provider Not In System IM MRI PROCEDURE S Performing Organization Address [facility] de Phone Number IIMS NA * Optical Coherence Tomography - Macula/Retina - OU - Both Eyes (01/01/2024 12:34 PM OIL FIRE SPECIALIST) CMT L Microns 247 um OPH THALMOLOGY IMAGING EXAM Narrative OPHTHALMOLOGY IMAGING EXAM - 01/01/2024 12:45 PM OIL FIRE SPECIALIST Right Eye Reliability was good. OCT device [...] Garza M.D. OPHTH TOMOGRAPHY Performing Organization Address [facility] Co de Phone Number OPHTHALMOLOGY IMAGING EXAM * Automated VF - Intermediate - OU - Both Eyes (12/17/2023 3:30 PM OIL FIRE SPECIALIST) Narrative OPHTHALMOLOGY IMAGING EXAM - 12/17/2023 6:34 PM OIL FIRE SPECIALIST Right Eye Automated visual field device used was other. Left Eye Automated visual field device used was other. Notes [facility] Binocular drivers test - both eyes - horizontal 120 degrees Kenya Garza M.D. OPHTH VISUAL FIELD Performing Organization Address [facility] de Phone Number OPHTHALMOLOGY IMAGING EXAM * [...] upper abdomen. Clinical correlation is necessary. Emily Kraus M.D. IMG CT PROCEDURES from Last 3 Months or Most Recently Relevant to Health Maintenance Care Teams Sleep Lab Technologist Relationship Specialty Start Date End Date Elsewhere, Pcp PCP - General Internal Medicine 05/29/19
--- OUTSIDE RECORDS SUMMARY | 2024-03-11 10:47 | XMS_ITS | Encounter Summary ---
Author Name Unknown Organization [facility] Address [address] [place] [address] Care Team Providers Care Credit Assistant Name Role Phone Elsewhere, Pcp Primary Care Provider Unavailabl e Reason for Referral * Outpatient (Routine) - Closed Specialty Diagnoses / Procedures Referred By Contac t Referred To Contact Neurology Piter Baez M.D. [address] [place] [address] [facility] Referral ID Status Reason Start Date Expiration Date Visits Re quested Visits Authorized [id number] Closed 02/20/2024 08/21/2025 1 1 Reason for Visit * Outpatient (Routine) - Closed Specialty Diagnoses / Procedures Referred By Contac t Referred To Contact Neurology Diagnoses Posterior Reversible Encephalopathy Syndrome Katerine Bashir M.D. [address] [place] [address] [facility] Referral ID Status Reason Start Date Expiration Date Visits Re quested Visits Authorized [id number] Closed 01/20/2024 07/21/2025 1 1 Encounter Details Date Type Department Care Team (Latest Contact Info) Description 02/20/2024 1:00 PM CDT Comprehensive Visit Department of Neurology in [place], [place] [address] [place] [phone] Piter Baez M.D. [address] [place] [phone] Posterior Reversible Encephalopathy Syndrome Social History Tobacco Use Types Packs/Day Years Used Date Smoking Tobacco: Light Smoker Cigarettes 0.5 44 Started: 02/26/1980 Smokeless Tobacco: Never Comments:On again off again Alcohol Use Standard Drinks/Week Comments Yes 0 (1 standard drink = 0.6 oz pur e alcohol) [facility] Utilities Answer Date Recorded In the [...] How often do you attend rastafari or latter day serv ices? Never 06/27/2020 Do you belong [...] medical care, and heating? Somewhat hard 06/27/2020 [facility] of Occupat ional Health - Occupational Stress [...] . Referring provider: Katerine Bashir M.D. [address] [place] [address] HISTORY OF PRESENT ILLNESS Pleasant 68-year-old right-handed woman accompanied by her who is referred by her PCP for an initial neurology evaluation regarding recent hospitalization elsewhere for PRES. She gets her ophthalmology care at [place] by Dr. 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 She gets all of her care for other medical conditions in [place] and I do not have access to [facility] these records. Potentially relevant past medical issues include a exhauster treating her with methotrexate for ???itchy bumps?? 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 [...] her care here rather thanreturning to the [facility]. We have scheduled an MRI for this [...] CDT Ancillary Procedure Department of Ophthalmology in [place], [place] [address] [place] [address] Kenya Garza M.D. [address] [place] [address] 03/13/2024 11:00 AM CDT Ancillary Procedure Department of Ophthalmology in [place], [place] [address] [place] [phone] Kenya Garza M.D. [address] [place] [phone] 03/13/2024 11:30 AM CDT Office Visit Department of Ophthalmology in [place], [place] [address] [place] [phone] Kenya Garza M.D. [address] [place] [phone] 03/13/2024 12:00 PM CDT Ancillary Procedure Department of Ophthalmology in [place], [place] [address] [place] [phone] Kenya Garza M.D. [address] [place] [phone] Scheduled Referrals Name Type Priority Associated Diagnoses Orde r Schedule Neurology office visit (clinic) Outpatient Referral Routine Expected: 02/25/2024, Expires: 05/21/2025 documented as of this encounter Visit Diagnoses Diagnosis Posterior Reversible Encephalopathy Syndrome documented in this encounter Care Teams Credit Assistant Relationship Specialty Start Date End Date Elsewhere, Pcp PCP - General Internal Medicine 05/29/19 documented as of this encounter
--- OUTSIDE RECORDS SUMMARY | 2024-03-11 10:47 | XMS_ITS | Encounter Summary ---
Author Name Unknown Organization [facility] Address [address] [place] [address] Care Team Providers Care Strategy Specialist Name Role Phone Elsewhere, Pcp Primary Care Provider Unavailabl e Reason for Referral * MRI/CAT/PET Scan (Routine) - Closed Specialty Diagnoses / Procedures Referred By Contac t Referred To Contact Radiology Diagnoses Posterior Reversible Encephalopathy Syndrome Procedures MR Brain without and with IV Contrast Piter Baez M.D. [address] [place] [address] [facility] Referral ID Status Reason Start Date Expiration Date Visits Re quested Visits Authorized [id number] Closed 02/03/2024 10/27/2024 1 1 Reason for Visit * MRI/CAT/PET Scan (Routine) - Closed Specialty Diagnoses / Procedures Referred By Contac t Referred To Contact Radiology Diagnoses Posterior Reversible Encephalopathy Syndrome Procedures MR Brain without and with IV Contrast Piter Baez M.D. [address] [place] [address] [facility] Referral ID Status Reason Start Date Expiration Date Visits Re quested Visits Authorized [id number] Closed 02/03/2024 10/27/2024 1 1 Encounter Details Date Type Department Care Team (Latest Contact Info) Description 02/20/2024 3:05 PM CDT - 02/20/2024 11:59 PM CDT Hospital Encounter Department of Radiology, [facility] in [place], [place] [address] [place] [phone] Piter Baez M.D. [address] [place] [address] Posterior Reversible Encephalopathy Syndrome Discharge Disposition: Home or Self Care Social History Tobacco Use Types Packs/Day Years Used Date Smoking Tobacco: Light Smoker Cigarettes 0.5 44 Started: 02/26/1980 Smokeless Tobacco: Never Comments:On again off again Alcohol Use Standard Drinks/Week Comments Yes 0 (1 standard drink = 0.6 oz pur e alcohol) [facility] Utilities Answer Date Recorded In [...] How often do you attend sabianism or alevism serv ices? Never 06/27/2020 Do you belong [...] medical care, and heating? Somewhat hard 06/27/2020 [facility] of Occupat ional Health - Occupational Stress [...] you start difluprednate 5 mL 3 11/11/2023 ipratropium-albutero L (DUONEB) 0.5-2.5 mg/3 mL nebulizer solution INHALE ONE VIAL VIA NEBULIZER EVERY 4 HOURS FOR 3 DAYS AND THEN CAN DECREASE TO NEEDED. 06/09/2020 lisinopril (PRINIVIL,ZESTRIL) 40 mg tablet Take 20 mg by mouth daily. 09/29/2017 predniSONE (DELTASONE) 5 mg tablet Take 2 tablets (10 mg total) by mouth daily. Take the entire dose in the AM with food 60 tablet 1 01/23/2024 umeclidinium-vilante roL (ANORO ELLIPTA) 62.5-25 mcg/actuation inhalerIndications:C hronic Obstructive Pulmonary Disease (HCC) Inhale 1 puff once daily. 1 each 11 07/06/2020 valACYclovir (VALTREX) 1000 mg tablet Take 1 tablet (1,000 mg total) by mouth 3 (three) times a day. 270 tablet 1 01/23/2024 prednisoLONE acetate (PRED FORTE) 1 % ophthalmic suspension Administer 1 drop into the right eye every hour while awake. 11/04/2023 03/10/2024 documented as of this encounter Plan of Treatment Upcoming Encounters Date Type Department Care Team (Late st Contact Info) Description 03/13/2024 8:00 AM CDT Ancillary Procedure Department of Ophthalmology in [place], [place] [address] [place] [phone] Kenya Garza M.D. [address] [place] [phone] 03/13/2024 11:00 AM CDT Ancillary Procedure Department of Ophthalmology in [place], [place] [address] [place] [phone] Kenya Garza M.D. [address] [place] [phone] 03/13/2024 11:30 AM CDT Office Visit Department of Ophthalmology in [place], [place] [address] [place] [address] Kenya Garza M.D. [address] [place] [phone] 03/13/2024 12:00 PM CDT Ancillary Procedure Department of Ophthalmology in [place], [place] [address] [place] [address] Kenya Garza M.D. [address] [place] [phone] documented as of this encounter Procedures Procedure [...] mL documented in this encounter Care Teams Strategy Specialist Relationship Specialty Start Date End Date Elsewhere, Pcp PCP - General Internal Medicine 05/29/19 documented as of this encounter
--- OUTSIDE RECORDS SUMMARY | 2024-03-11 10:47 | XMS_ITS | Encounter Summary ---
Author Name Unknown Organization [facility] Address [address] [place] [address] Care Team Providers Care Under Cutting Machine Operator Name Role Phone Elsewhere, [...] drink = 0.6 oz pur e alcohol) [facility] Utilities Answer Date Recorded In the past 12 months has [employer] electric, gas, oil, or water company threatened [...] Never 06/27/2020 How often do you attend orthodox or uatsdin serv ices? Never 06/27/2020 Do you belong to any clubs o r organizations such as orthodox groups, unions, fraternal or athletic groups, [...] medical care, and heating? Somewhat hard 06/27/2020 [facility] - Occupational Stress Questionnaire Answer [...] your living situation today? I have a [facility] place to live 11/05/2023 Education [...] CDT Ancillary Procedure Department of Ophthalmology in [place], [place] [address] [place] [phone] Kenya Garza M.D. [address] [place] [phone] 03/13/2024 11:00 AM CDT Ancillary Procedure Department of Ophthalmology in [place], [place] [address] [place] [phone] Kenya Garza M.D. [address] [place] [phone] 03/13/2024 11:30 AM CDT Office Visit Department of Ophthalmology in [address] [phone] Kenya Garza M.D. [address] [place] [phone] 03/13/2024 12:00 PM CDT Ancillary Procedure Department of Ophthalmology in [place], [place] [address] [place] [phone] Kenya Garza M.D. [address] [place] [phone] documented as of this encounter Procedures Procedure [...] on filedocumented in this encounter Care Teams Under Cutting Machine Operator Relationship Specialty Start Date End Date Elsewhere, Pcp PCP - General Internal Medicine 05/29/19 documented as of this encounter
--- OUTSIDE RECORDS SUMMARY | 2024-03-11 10:47 | XMS_ITS | Encounter Summary ---
Author Name Unknown Organization [facility] Address [address] [place] [address] Care Team Providers Care Screen Cleaner Name Role Phone Elsewhere, Pcp Primary Care Provider Unavailabl e Encounter Details Date Type Department Care Team (Latest Contact Info) Description 02/20/2024 9:50 AM CDT Ancillary Procedure Department of Ophthalmology in [place], [place] [address] [place] [address] Kenya Garza M.D. [address] [place] [address] Panuveitis Right; Necrosis Retinal Acute Right Social History Tobacco Use Types Packs/Day Years Used Date Smoking Tobacco: Light Smoker Cigarettes 0.5 44 Started: 02/26/1980 Smokeless Tobacco: Never Comments:On again off again Alcohol Use Standard Drinks/Week Comments Yes 0 (1 standard drink = 0.6 oz pur e alcohol) [facility] Utilities Answer Date Recorded In the past 12 months has [employer], gas, oil, or water [employer] threatened to shut off services in your home? No 11/05/2023 Social Connection and Isolation Panel [NHANES] A nswer Date Recorded In a typical week, how many times do you talk on the phone with family, friends, or neighbors? Once a week 06/27/2020 How often do you get together with friends or re latives? Never 06/27/2020 How often do you attend jain or muslim serv ices? Never 06/27/2020 Do you belong [...] medical care, and heating? Somewhat hard 06/27/2020 [facility] of Occupat ional Health - Occupational [...] CDT Ancillary Procedure Department of Ophthalmology in [place], [place] [address] [place] [phone] Kenya Garza M.D. [address] [place] [phone] 03/13/2024 11:00 AM CDT Ancillary Procedure Department of Ophthalmology in [place], [place] [address] [place] [phone] Kenya Garza M.D. [address] [place] [phone] 03/13/2024 11:30 AM CDT Office Visit Department of Ophthalmology in [place], [place] [address] [place] [phone] Kenya Gazra M.D. [address] [place] [phone] 03/13/2024 12:00 PM CDT Ancillary Procedure Department of Ophthalmology in [place], [place] [address] [place] [phone] Kenya Garza M.D. [address] [place] [phone] documented as of this encounter Procedures Procedure [...] Right documented in this encounter Care Teams Screen Cleaner Relationship Specialty Start Date End Date Elsewhere, Pcp PCP - General Internal Medicine 05/29/19 documented as of this encounter
--- OUTSIDE RECORDS SUMMARY | 2024-03-11 10:47 | XMS_ITS | Encounter Summary ---
Author Name Unknown Organization [facility] Address [address] [place] [address] Care Team Providers Care Portable Grinding Machine Operator Name Role Phone Elsewhere, Pcp Primary Care Provider Unavailabl e Encounter Details Date Type Department Care Team (Latest Contact Info) Description 03/10/2024 Clinical Communication Department of Ophthalmology in [place], [place] [address] [place] [address] Kenya Garza M.D. [address] [place] [phone] Social History Tobacco Use Types Packs/Day Years Used Date Smoking Tobacco: Light Smoker Cigarettes 0.5 44 Started: 02/26/1980 Smokeless Tobacco: Never Comments:On again off again Alcohol Use Standard Drinks/Week Comments Yes 0 (1 standard drink = 0.6 oz pur e alcohol) [facility] Utilities Answer Date Recorded In the past 12 months has [employer], gas, oil, or water company threatened to [...] How often do you attend druze or restoration serv ices? Never 06/27/2020 Do you belong [...] hard 06/27/2020 [facility] [place] of Occupat ional Health - Occupational Stress [...] your living situation today? I have a [facility] place to live 11/05/2023 Education Answer [...] CDT Ancillary Procedure Department of Ophthalmology in [place], [place] [address] [place] [phone] Kenya Garza M.D. [address] [place] [phone] 03/13/2024 11:00 AM CDT Ancillary Procedure Department of Ophthalmology in [place], [place] [address] [place] [phone] Kenya Garza M.D. [address] [place] [phone] 03/13/2024 11:30 AM CDT Office Visit Department of Ophthalmology in [place], [place] [address] [place] [phone] Kenya Garza M.D. [address] [place] [phone] 03/13/2024 12:00 PM CDT Ancillary Procedure Department of Ophthalmology in [place], [place] [address] [place] [phone] Kenya Garza M.D. [address] [place] [phone] documented as of this encounter Visit Diagnoses Not on filedocumented in this encounter Care Teams Portable Grinding Machine Operator Relationship Specialty Start Date End Date Elsewhere, Pcp PCP - General Internal Medicine 05/29/19 documented as of this encounter
--- OUTSIDE RECORDS SUMMARY | 2024-03-11 10:47 | XMS_ITS | Encounter Summary ---
Author Name Unknown Organization [facility] Address [address] [place] [address] Care Team Providers Care Meters Superintendent Name Role Phone Elsewhere, Pcp Primary Care [...] 0.6 oz pur e alcohol) [facility] Utilities Answer Date Recorded In the past 12 months has [employer], gas, oil, or water company threatened [...] Never 06/27/2020 How often do you attend restorationism or christianity serv ices? Never 06/27/2020 Do you belong to any clubs o r organizations such as restorationism groups, unions, fraternal or athletic groups, or [...] heating? Somewhat hard 06/27/2020 [facility] - Occupational Stress Questionnaire Answer [...] your living situation today? I have a [facility] place to live 11/05/2023 Education Answer [...] CDT Ancillary Procedure Department of Ophthalmology in [place], [place] [address] [place] [phone] Kenya Garza M.D. [address] [place] [phone] 03/13/2024 11:00 AM CDT Ancillary Procedure Department of Ophthalmology in [place], [place] [address] [place] [phone] Kenya Garza M.D. [address] [place] [phone] 03/13/2024 11:30 AM CDT Office Visit Department of Ophthalmology in [address] [phone] Kenya Garza M.D. [address] [place] [phone] 03/13/2024 12:00 PM CDT Ancillary Procedure Department of Ophthalmology in [place], [place] [address] [place] [phone] Kenya Garza M.D. [address] [place] [phone] documented as of this encounter Procedures Procedure Name Priority Date/Time Associated Diagnosis Comments OPHTHALMOLOGY IMAGE EXAM Routine 02/20/2024 12:05 AM CDT documented in this encounter Results * Eyes US-Eye W-Ccim-Ivnnjzuqtxcaz Image Exam (02/20/2024 12:05 AM CDT) Narrative [...] on filedocumented in this encounter Care Teams Meters Superintendent Relationship Specialty Start Date End Date Elsewhere, Pcp PCP - General Internal Medicine 05/29/19 documented as of this encounter
--- OUTSIDE RECORDS SUMMARY | 2024-03-11 10:48 | XMS_ITS | Encounter Summary ---
Author Name Unknown Organization [facility] Address [address] [place] [address] Care Team Providers Care Bottle Packer Name Role Phone Elsewhere, Pcp Primary Care Provider Unavailabl e Reason for Referral * Outpatient (Routine) - Closed Specialty Diagnoses / Procedures Referred By Apolinar lopez Referred To Contact Ophthalmology Kenya Garza M.D. [address] [place] [address] [facility] Referral ID Status Reason Start Date Expiration Date Visits Re quested Visits Authorized [id number] Closed 01/01/2024 07/02/2025 1 1 ER PRINTER Reason for Visit * Outpatient (Routine) - Closed Specialty Diagnoses / Procedures Referred By Apolinar lopez Referred To Contact Ophthalmology Diagnoses Panuveitis Right Kenya Garza M.D. [address] [place] [phone] [facility] Referral ID Status Reason Start Date Expiration Date Visits Re quested Visits Authorized [id number] Closed 12/17/2023 06/17/2025 1 1 Encounter Details Date Type Department Care Team (Latest Contact Info) Description 01/01/2024 12:45 PM MASTER PRINTER Office Visit Department of Ophthalmology in [place], [place] [address] [place] [phone] Kenya Garza M.D. [address] [place] [phone] Necrosis Retinal Acute Right (Primary Dx); Panuveitis Right Social History Tobacco Use Types Packs/Day Years Used Date Smoking Tobacco: Light Smoker Cigarettes 0.5 44 Started: 02/26/1980 Smokeless Tobacco: Never Comments:On again off again Alcohol Use Standard Drinks/Week Comments Yes 0 (1 standard drink = 0.6 oz pur e alcohol) [facility] Utilities Answer Date Recorded In the [...] Never 06/27/2020 How often do you attend christianity or baptism serv ices? Never 06/27/2020 Do you belong to any clubs o r organizations such as christianity groups, unions, fraternal or athletic groups, or [...] medical care, and heating? Somewhat hard 06/27/2020 [facility] [place] of Occupat ional Health - Occupational Stress [...] your living situation today? I have a [facility] place to live 11/05/2023 Education [...] Kenya Garza M.D. - 01/01/2024 12:45 PM MASTER PRINTER Please continue the oral valacyclovir medication, 1000 [...] 01/23/24 Call with questions or new symptoms: [phone] ER PRINTER documented in this encounter Progress Notes * [...] tobramycin drops without improvement. She saw inspector repairer [place] Dr. Daisy Ivy on 10/23/23. 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 In August 2023, she was sent from an infusion center to [facility] emergency department where shewas found to have oxygen saturations of 78%. CT imaging showed worsening bilateral ground glass opacities. A CT scan was negative for pulmonary embolism. She was transferred to [facility] for additional pulmonology care. On 09/12/23 [...] three times in the past three months: [facility] (09/02/23 for hypercalcemiaand acute kidney injury - had CT chest/abdomen/pelvis to assess for malignancy), [facility] again. Each time she saw her [...] plans to monitor. (Her oncologist is at [facility].) MEDICATIONS Prednisolone every hour while awake right [...] noon: [facility], [facility], dilate both eyes, [facility] ER PRINTER documented in this encounter Plan of Treatment Upcoming Encounters Date Type Department Care Team (Late st Contact Info) Description 03/13/2024 8:00 AM CDT Ancillary Procedure Department of Ophthalmology in [place], [place] [address] [place] [phone] Kenya Garza M.D. [address] [place] [phone] 03/13/2024 11:00 AM CDT Ancillary Procedure Department of Ophthalmology in [place], [place] [address] [place] [phone] Kenya Garza M.D. [address] [place] [phone] 03/13/2024 11:30 AM CDT Office Visit Department of Ophthalmology in [place], [place] [address] [place] [phone] Kenya Garza M.D. [address] [place] [phone] 03/13/2024 12:00 PM CDT Ancillary Procedure Department of Ophthalmology in [place], [place] [address] [place] [phone] Kenya Garza M.D. [address] [place] [phone] Scheduled Referrals Name Type Priority Associated Diagnoses Order Schedule Ophthalmology office visit (clinic) Outpatient Referral Routine Expected: 01/23/2024, Expires: 12/31/2026 documented as of this encounter Visit Diagnoses Diagnosis Necrosis Retinal Acute Right- Primary Panuveitis Right documented in this encounter Care Teams Bottle Packer Relationship Specialty Start Date End Date Elsewhere, Pcp PCP - General Internal Medicine 05/29/19 documented as of this encounter
--- OUTSIDE RECORDS SUMMARY | 2024-03-11 10:48 | XMS_ITS | Encounter Summary ---
Author Name Unknown Organization [facility] Address [address] [place] [address] Care Team Providers Care Sheet Metal Operator Name Role Phone Elsewhere, Pcp Primary Care Provider Unavailabl e Reason for Referral * Outpatient (Routine) - Closed Specialty Diagnoses / Procedures Referred By Apolinar lopez Referred To Contact Ophthalmology Diagnoses Panuveitis Right Necrosis Retinal Acute Right Kenya Garza M.D. [address] [place] [address] [facility] Referral ID Status Reason Start Date Expiration Date Visits Re quested Visits Authorized [id number] Closed 01/23/2024 07/24/2025 1 1 Reason for Visit * Outpatient (Routine) - Closed Specialty Diagnoses / Procedures Referred By Apolinar lopez Referred To Contact Ophthalmology Kenya Garza M.D. [address] [place] [address] [facility] Referral ID Status Reason Start Date Expiration Date Visits Re quested Visits Authorized [id number] Closed 01/01/2024 07/02/2025 1 1 Encounter Details Date Type Department Care Team (Latest Contact Info) Description 01/23/2024 12:00 PM CDT Office Visit Department of Ophthalmology in [place], [place] [address] [place] [phone] Kenya Garza M.D. [address] [place] [phone] Panuveitis Right (Primary Dx); Necrosis Retinal Acute Right Social History Tobacco Use Types Packs/Day Years Used Date Smoking Tobacco: Light Smoker Cigarettes 0.5 44 Started: 02/26/1980 Smokeless Tobacco: Never Comments:On again off again Alcohol Use Standard Drinks/Week Comments Yes 0 (1 standard drink = 0.6 oz pur e alcohol) [facility] Utilities Answer Date Recorded In [...] Never 06/27/2020 How often do you attend denominational or sabianism serv ices? Never 06/27/2020 Do you belong to any clubs o r organizations such as denominational groups, unions, fraternal or athletic groups, or [...] medical care, and heating? Somewhat hard 06/27/2020 [facility] of Occupat ional Health - Occupational Stress [...] your living situation today? I have a [facility] place to live 11/05/2023 Education [...] 02/20/24 Call with questions or new symptoms: [phone] documented in this encounter Progress Notes * [...] with tobramycin drops without improvement. She saw weigher operator Dr. Daisy Ivy on 10/23/23. 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 In August 2023, she was sent from an infusion center to [place] emergency department where shewas found to have oxygen saturations of 78%. CT imaging showed worsening bilateral ground glass opacities. A CT scan was negative for pulmonary embolism. She was transferred to [facility] for additional pulmonology care. On 09/12/23 [...] three times in the past three months: [place] (09/02/23 for hypercalcemiaand acute kidney injury - had CT chest/abdomen/pelvis to assess for malignancy), [facility] again. Each time she saw her [...] plans to monitor. (Her oncologist is at [facility].) MEDICATIONS Prednisolone every hour while [...] shallow retinal detachment. No T sign noted. [facility] Macula OCT of the right eye [...] membranes. Possible posterior thickening. No T sign. 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 [facility] PLAN: It has been 21 days [...] CDT Ancillary Procedure Department of Ophthalmology in [place], [place] [address] [place] [address] Kenya Garza M.D. [address] [place] [phone] 03/13/2024 11:00 AM CDT Ancillary Procedure Department of Ophthalmology in [place], [place] [address] [place] [phone] Kenya Garza M.D. [address] [place] [phone] 03/13/2024 11:30 AM CDT Office Visit Department of Ophthalmology in [place], [place] [address] [place] [address] Kenya Garza M.D. [address] [place] [phone] 03/13/2024 12:00 PM CDT Ancillary Procedure Department of Ophthalmology in [place], [place] [address] [place] [address] Kenya Gazra M.D. [address] [place] [phone] Scheduled Referrals Name Type Priority Associated Diagnoses [...] Garza M.D. OPHTH ULTRASOUND Performing Organization Address City/[facility]/ZIP Co de Phone Number OPHTHALMOLGY NON-IMAGING ORDERS documented in this encounter Visit Diagnoses Diagnosis Panuveitis Right- Primary Necrosis Retinal Acute Right Panuveitis Right Necrosis Retinal Acute Right Panuveitis Right Necrosis Retinal Acute Right documented in this encounter Care Teams Sheet Metal Operator Relationship Specialty Start Date End Date Elsewhere, Pcp PCP - General Internal Medicine 05/29/19 documented as of this encounter
--- OUTSIDE RECORDS SUMMARY | 2024-03-11 10:48 | XMS_ITS | Encounter Summary ---
Author Name Unknown Organization [facility] Address [address] [place] [address] Care Team Providers Care Call Or Contact Centre Manager Name Role Phone Elsewhere, Pcp Primary Care Provider Unavailabl e Reason for Visit * Reason Comments Med Change Request Encounter Details Date Type Department Care Team ([facility] st Contact Info) Description 12/18/2023 Refill Department of Ophthalmology in [place], [place] [address] [place] [phone] Kenya Garza M.D. [address] [place] [address] Med Change Request Social History Tobacco Use Types Packs/Day Years Used Date Smoking Tobacco: Light Smoker Cigarettes 0.5 44 Started: 02/26/1980 Smokeless Tobacco: Never Comments:On again off again Alcohol Use Standard Drinks/Week Comments Yes 0 (1 standard drink = 0.6 oz pur e alcohol) [facility] Utilities Answer Date Recorded In the past 12 months has [employer], gas, oil, or water [employer] threatened to shut off services in your [...] and heating? Somewhat hard 06/27/2020 [facility] of Occupat ional Health - Occupational Stress [...] CDT Ancillary Procedure Department of Ophthalmology in [place], [place] [address] [place] [phone] Kenya Garza M.D. [address] [place] [phone] 03/13/2024 11:00 AM CDT Ancillary Procedure Department of Ophthalmology in [place], [place] [address] [place] [phone] Kenya Garza M.D. [address] [place] [phone] 03/13/2024 11:30 AM CDT Office Visit Department of Ophthalmology in [place], [place] [address] [place] [phone] Kenya Garza M.D. [address] [place] [phone] 03/13/2024 12:00 PM CDT Ancillary Procedure Department of Ophthalmology in [place], [place] [address] [place] [phone] Kenya Garza M.D. [address] [place] [phone] documented as of this encounter Visit Diagnoses Not on filedocumented in this encounter Care Teams Call Or Contact Centre Manager Relationship Specialty Start Date End Date Elsewhere, Pcp PCP - General Internal Medicine 05/29/19 documented as of this encounter
--- OUTSIDE RECORDS SUMMARY | 2024-03-11 10:48 | XMS_ITS | Encounter Summary ---
Author Name Unknown Organization [facility] Address [address] [place] [address] Care Team Providers Care Body Shop Manager Name Role Phone Elsewhere, Pcp Primary Care Provider Unavailabl e Reason for Referral * Outpatient (Routine) - Closed Specialty Diagnoses / Procedures Referred By Contac t Referred To Contact Cardiovascular Disease Diagnoses Coronary Artery Disease (Unspecified) Katerine Bashir M.D. [address] [place] [address] [facility] Referral ID Status Reason Start Date Expiration Date Visits Re quested Visits Authorized [id number] Closed 02/12/2019 02/12/2020 1 1 Encounter Details Date Type Department Care Team (Late st Contact Info) Description 02/12/2019 [facility] [address] [place] [address] Katerine Bashir M.D. [address] [place] [address] Coronary Artery Disease (Unspecified) (Primary [...] CDT Ancillary Procedure Department of Ophthalmology in [place], [place] [address] [place] [phone] Kenya Garza M.D. [address] [place] [phone] 03/13/2024 11:00 AM CDT Ancillary Procedure Department of Ophthalmology in [place], [place] [address] [place] [phone] Kenya Garza M.D. [address] [place] [phone] 03/13/2024 11:30 AM CDT Office Visit Department of Ophthalmology in [place], [place] [address] [place] [phone] Kenya Garza M.D. [address] [place] [phone] 03/13/2024 12:00 PM CDT Ancillary Procedure Department of Ophthalmology in [place], [place] [address] [place] [phone] Kenya Garza M.D. [address] [place] [phone] Scheduled Referrals Name Type Priority Associated Diagnoses [...] documented as of this encounter Care Teams Body Shop Manager Relationship Specialty Start Date End Date Elsewhere, Pcp PCP - General Internal Medicine 05/29/19 documented as of this encounter
--- OUTSIDE RECORDS SUMMARY | 2024-03-11 10:48 | XMS_ITS | Encounter Summary ---
Author Name Unknown Organization [facility] Address [address] [place] [address] Care Team Providers Care Olericulture Teacher Name Role Phone Elsewhere, Pcp Primary Care Provider Unavailabl e Encounter Details Date Type Department Care Team (Latest Contact Info) Description 01/01/2024 12:30 PM UI PROGRAMMER Ancillary Procedure Department of Ophthalmology in [place], [place] [address] [place] [address] Kenya Garza M.D. [address] [place] [phone] Panuveitis Right Social History Tobacco Use Types Packs/Day Years Used Date Smoking Tobacco: Light Smoker Cigarettes 0.5 44 Started: 02/26/1980 Smokeless Tobacco: Never Comments:On again off again Alcohol Use Standard Drinks/Week Comments Yes 0 (1 standard drink = 0.6 oz pur e alcohol) [facility] Utilities Answer Date Recorded In the past 12 months has Walk-in Appointment Scheduler, gas, oil, or water [employer] threatened to shut off services in your home? No 11/05/2023 Social Connection and Isolation Panel [NHANES] A nswer Date Recorded In a typical week, how many times do you talk on the phone with family, friends, or neighbors? Once a week 06/27/2020 How often do you get together with friends or re latives? Never 06/27/2020 How often do you attend taoism or anabaptism serv ices? Never 06/27/2020 Do you belong [...] medical care, and heating? Somewhat hard 06/27/2020 [facility] [place] of Occupat ional Health - Occupational Stress [...] CDT Ancillary Procedure Department of Ophthalmology in [place], [place] [address] [place] [phone] Kenya Garza M.D. [address] [place] [phone] 03/13/2024 11:00 AM CDT Ancillary Procedure Department of Ophthalmology in [place], [place] [address] [place] [phone] Kenya Garza M.D. [address] [place] [phone] 03/13/2024 11:30 AM CDT Office Visit Department of Ophthalmology in [place], [place] [address] [place] [phone] Kenya Garza M.D. [address] [place] [phone] 03/13/2024 12:00 PM CDT Ancillary Procedure Department of Ophthalmology in [place], [place] [address] [place] [phone] Kenay Garza M.D. [address] [place] [phone] documented as of this encounter Procedures Procedure Name Priority Date/Time Associated Diagnosis Comments OPTICAL COHERENCE TOMOGRAPHY - MACULA/RETINA - OU - BOTH EYES Routine 01/01/2024 12:34 PM UI PROGRAMMER Panuveitis Right documented in this encounter Results * Optical Coherence Tomography - Macula/Retina - OU - Both Eyes (01/01/2024 12:34 PM UI PROGRAMMER) CMT L Microns 247 um OPH THALMOLOGY IMAGING EXAM Narrative OPHTHALMOLOGY IMAGING EXAM - 01/01/2024 12:45 PM UI PROGRAMMER Right Eye Reliability was good. OCT device [...] Right documented in this encounter Care Teams Olericulture Teacher Relationship Specialty Start Date End Date Elsewhere, Pcp PCP - General Internal Medicine 05/29/19 documented as of this encounter
--- OUTSIDE RECORDS SUMMARY | 2024-03-11 10:48 | XMS_ITS | Encounter Summary ---
Author Name Unknown Organization [facility] Address [address] [place] [address] Care Team Providers Care Dispatch Lead Name Role Phone Elsewhere, Pcp Primary Care Provider Unavailabl e Reason for Visit * Reason Onset Date Comments Outside hospitalization and medications 01/10/20 Encounter Details Date Type Department Care Team (Latest Contact Info) Description 01/10/2024 Clinical Communication Department of Ophthalmology in [place], [place] [address] [place] [address] Kenya Garza M.D. [address] [place] [phone] Outside hospitalization and medications Social History Tobacco Use Types Packs/Day Years Used Date Smoking Tobacco: Light Smoker Cigarettes 0.5 44 Started: 02/26/1980 Smokeless Tobacco: Never Comments:On again off again Alcohol Use Standard Drinks/Week Comments Yes 0 (1 standard drink = 0.6 oz pur e alcohol) [facility] Utilities Answer Date Recorded In the past 12 months has [employer], gas, oil, or water [employer] threatened to shut off services in your home? No 11/05/2023 Social Connection and Isolation Panel [NHANES] A nswer Date Recorded In a typical week, how many times do you talk on the phone with family, friends, or neighbors? Once a week 06/27/2020 How often do you get together with friends or re latives? Never 06/27/2020 How often do you attend moravian or cheondoism serv ices? Never 06/27/2020 Do you belong to any clubs o r organizations such as moravian groups, unions, fraternal or athletic groups, or [...] 06/27/2020 [facility] of Occupat ional Health - Occupational Stress [...] CDT Ancillary Procedure Department of Ophthalmology in [place], [place] [address] [place] [phone] Kenya Garza M.D. [address] [place] [phone] 03/13/2024 11:00 AM CDT Ancillary Procedure Department of Ophthalmology in [place], [place] [address] [place] [phone] Kenya Garza M.D. [address] [place] [phone] 03/13/2024 11:30 AM CDT Office Visit Department of Ophthalmology in [place], [place] [address] [place] [phone] Kenya Garza M.D. [address] [place] [phone] 03/13/2024 12:00 PM CDT Ancillary Procedure Department of Ophthalmology in [place], [place] [address] [place] [phone] Kenya Garza M.D. [address] [place] [phone] documented as of this encounter Visit Diagnoses Not on filedocumented in this encounter Care Teams Dispatch Lead Relationship Specialty Start Date End Date Elsewhere, Pcp PCP - General Internal Medicine 05/29/19 documented as of this encounter
--- OUTSIDE RECORDS SUMMARY | 2024-03-11 10:48 | XMS_ITS | Encounter Summary ---
Author Name Unknown Organization [facility] Address [address] [place] [address] Care Team Providers Care Boardinghouse Keeper Name Role Phone Elsewhere, Pcp Primary Care Provider Unavailabl e Encounter Details Date Type Department Care Team (Latest Contact Info) Description 11/05/2023 Clinical Communication Department of Ophthalmology in [place], [place] [address] [place] [address] Kenya Garza M.D. [address] [place] [phone] Social History Tobacco Use Types Packs/Day Years Used Date Smoking Tobacco: Light Smoker Cigarettes 0.5 44 Started: 02/26/1980 Smokeless Tobacco: Never Comments:On again off again Alcohol Use Standard Drinks/Week Comments Yes 0 (1 standard drink = 0.6 oz pur e alcohol) [facility] Utilities Answer Date Recorded In the past 12 months has [employer], gas, oil, or water company threatened to [...] How often do you attend denominational or yarsani serv ices? Never 06/27/2020 Do you belong [...] care, and heating? Somewhat hard 06/27/2020 [facility] [place] of Occupat ional Health - Occupational Stress [...] living situation today? I have a [facility] place to live 11/05/2023 Education [...] CDT Ancillary Procedure Department of Ophthalmology in [place], [place] [address] [place] [phone] Kenya Garza M.D. [address] [place] [phone] 03/13/2024 11:00 AM CDT Ancillary Procedure Department of Ophthalmology in [place], [place] [address] [place] [phone] Kenya Garza M.D. [address] [place] [phone] 03/13/2024 11:30 AM CDT Office Visit Department of Ophthalmology in [place], [place] [address] [place] [phone] Kenya Garza M.D. [address] [place] [phone] 03/13/2024 12:00 PM CDT Ancillary Procedure Department of Ophthalmology in [place], [place] [address] [place] [phone] Kenya Graza M.D. [address] [place] [phone] documented as of this encounter Visit Diagnoses Not on filedocumented in this encounter Care Teams Boardinghouse Keeper Relationship Specialty Start Date End Date Elsewhere, Pcp PCP - General Internal Medicine 05/29/19 documented as of this encounter
--- OUTSIDE RECORDS SUMMARY | 2024-03-11 10:48 | XMS_ITS | Encounter Summary ---
Author Name Unknown Organization [facility] Address [address] [place] [address] Care Team Providers Care Rn Charge Name Role Phone Elsewhere, Pcp Primary Care Provider Unavailabl e Reason for Referral * Outpatient (Routine) - Closed Specialty Diagnoses / Procedures Referred By Apolinar lopez Referred To Contact Ophthalmology Diagnoses Panuveitis Right Kenya Garza M.D. [address] [place] [address] [facility] Referral ID Status Reason Start Date Expiration Date Visits Re quested Visits Authorized [id number] Closed 12/17/2023 06/17/2025 1 1 DESIGN ENGINEER Reason for Visit * Outpatient (Routine) - Closed Specialty Diagnoses / Procedures Referred By Apolinar lopez Referred To Contact Ophthalmology Kenya Garza M.D. [address] [place] [phone] [facility] Referral ID Status Reason Start Date Expiration Date Visits Re quested Visits Authorized [id number] Closed 12/02/2023 06/02/2025 1 1 Encounter Details Date Type Department Care Team (Latest Contact Info) Description 12/17/2023 1:30 PM TIRE DESIGN ENGINEER Office Visit Department of Ophthalmology in [place], [place] [address] [place] [phone] Kenya Garza M.D. [address] [place] [phone] Panuveitis (Primary Dx) Social History Tobacco Use Types Packs/Day Years Used Date Smoking Tobacco: Light Smoker Cigarettes 0.5 44 Started: 02/26/1980 Smokeless Tobacco: Never Comments:On again off again Alcohol Use Standard Drinks/Week Comments Yes 0 (1 standard drink = 0.6 oz pur e alcohol) [facility] Utilities Answer Date Recorded In the past [...] How often do you attend jainism or confucianism serv ices? Never 06/27/2020 Do you belong [...] medical care, and heating? Somewhat hard 06/27/2020 [facility] [employer] of Occupat ional Health - Occupational Stress [...] Kenya Garza M.D. - 12/17/2023 1:30 PM TIRE DESIGN ENGINEER Please continue the oral valacyclovir medication, 1000 [...] . Call with questions or new symptoms: [phone] DESIGN ENGINEER documented in this encounter Progress Notes * [...] with tobramycin drops without improvement. She saw fishing accessories maker Dr. Daisy Ivy on 10/23/23. 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 In August 2023, she was sent from an infusion center to [place] emergency department where shewas found to have oxygen saturations of 78%. CT imaging showed worsening bilateral ground glass opacities. A CT scan was negative for pulmonary embolism. She was transferred to [facility] for additional pulmonology care. On [...] three times in the past three months: [place] (09/02/23 for hypercalcemiaand acute kidney injury - had CT chest/abdomen/pelvis to assess for malignancy), [facility] again. Each time she saw her [...] plans to monitor. (Her oncologist is at [facility].) MEDICATIONS Prednisolone every hour while awake right [...] shallow retinal detachment. No T sign noted. [facility] Macula OCT of the right eye [...] membranes. Possible posterior thickening. No T sign. [facility] HSV 2 PCR from anterior chamber [...] rule out shallow detachment vs subhyaloid opacities. [facility] HSV 2 PCR from anterior chamber [...] rule out shallow detachment vs subhyaloid opacities. [facility] HSV 2 PCR from anterior chamber [...] [facility], [facility], dilate both eyes, OCT, WMS DESIGN ENGINEER documented in this encounter Plan of Treatment Upcoming Encounters Date Type Department Care Team (Late st Contact Info) Description 03/13/2024 8:00 AM CDT Ancillary Procedure Department of Ophthalmology in [place], [place] [address] [place] [address] Kenya Garza M.D. [address] [place] [phone] 03/13/2024 11:00 AM CDT Ancillary Procedure Department of Ophthalmology in [place], [place] [address] [place] [address] Kenya Garza M.D. [address] [place] [phone] 03/13/2024 11:30 AM CDT Office Visit Department of Ophthalmology in [place], [place] [address] [place] [address] Kenya Garza M.D. [address] [place] [phone] 03/13/2024 12:00 PM CDT Ancillary Procedure Department of Ophthalmology in [place], [place] [address] [place] [address] Kenya Garza M.D. [address] [place] [address] Scheduled Referrals Name Type Priority Associated Diagnoses Order Schedule Ophthalmology office visit (clinic) Outpatient Referral Routine Panuveitis Right Expected: 01/01/2024, Expires: 12/17/2026 documented as of this encounter Results * Optical Coherence Tomography - Macula/Retina - OU - Both Eyes (01/01/2024 12:34 PM TIRE DESIGN ENGINEER) CMT L Microns 247 um OPH THALMOLOGY IMAGING EXAM Narrative OPHTHALMOLOGY IMAGING EXAM - 01/01/2024 12:45 PM TIRE DESIGN ENGINEER Right Eye Reliability was good. OCT device [...] OU - Both Eyes (12/17/2023 3:30 PM TIRE DESIGN ENGINEER) Narrative OPHTHALMOLOGY IMAGING EXAM - 12/17/2023 6:34 PM TIRE DESIGN ENGINEER Right Eye Automated visual field device used was other. Left Eye Automated visual field device used was other. Notes [place] Binocular drivers test - both eyes - horizontal 120 degrees Kenya Garza M.D. OPHTH VISUAL FIELD OPHTHALMOLOGY IMAGING EXAM documented in this encounter Visit Diagnoses Diagnosis Panuveitis Right- Primary Panuveitis Right Panuveitis Right documented in this encounter Care Teams Rn Charge Relationship Specialty Start Date End Date Elsewhere, Pcp PCP - General Internal Medicine 05/29/19 documented as of this encounter
--- OUTSIDE RECORDS SUMMARY | 2024-03-11 10:48 | XMS_ITS | Encounter Summary ---
Author Name Unknown Organization [facility] Address [address] [place] [address] Care Team Providers Care Membership Director Name Role Phone Elsewhere, Pcp Primary Care Provider Unavailabl e Reason for Referral * MRI/CAT/PET Scan (Routine) - Closed Specialty Diagnoses / Procedures Referred By Apolinar lopez Referred To Contact Radiology Diagnoses Posterior Reversible Encephalopathy Syndrome Procedures MR Brain without and with IV Contrast Piter Baez M.D. [address] [place] [address] [facility] Referral ID Status Reason Start Date Expiration Date Visits Re quested Visits Authorized [id number] Closed 02/03/2024 10/27/2024 1 1 Reason for Visit * Reason Onset Date Comments Pre-visit Testing Orders 01/31/2024 Encounter Details Date Type Department Care Team (Latest Contact Info) Description 01/31/2024 Clinical Communication Department of Neurology in [place], [place] [address] [place] [phone] Piter Baez M.D. [address] [place] [phone] Pre-visit Testing Orders Social History Tobacco Use Types Packs/Day Years Used Date Smoking Tobacco: Light Smoker Cigarettes 0.5 44 Started: 02/26/1980 Smokeless Tobacco: Never Comments:On again off again Alcohol Use Standard Drinks/Week Comments Yes 0 (1 standard drink = 0.6 oz pur e alcohol) [facility] Utilities Answer Date Recorded In the past 12 months has th e electric, gas, oil, or water [employer] threatened to shut off services in your home? No 11/05/2023 Social Connection and Isolation Panel [NHANES] A nswer Date Recorded In a typical week, how many times do you talk on the phone with family, friends, or neighbors? Once a week 06/27/2020 How often do you get together with friends or re latives? Never 06/27/2020 How often do you attend shinto or christian serv ices? Never 06/27/2020 Do [...] care, and heating? Somewhat hard 06/27/2020 [facility] Occupat ional [facility] - Occupational Stress Questionnaire Answer Date [...] your living situation today? I have a [facility] place to live 11/05/2023 Education Answer [...] CDT Ancillary Procedure Department of Ophthalmology in [place], [place] [address] [place] [phone] Kenya Garza M.D. [address] [place] [phone] 03/13/2024 11:00 AM CDT Ancillary Procedure Department of Ophthalmology in [place], [place] [address] [place] [address] Kenya Garza M.D. [address] [place] [phone] 03/13/2024 11:30 AM CDT Office Visit Department of Ophthalmology in [place], [place] [address] [place] [address] Kenya Garza M.D. [address] [place] [address] 03/13/2024 12:00 PM CDT Ancillary Procedure Department of Ophthalmology in [place], [place] [address] [place] [address] Kenya Garza M.D. [address] [place] [address] documented as of this encounter Results * [...] Syndrome documented in this encounter Care Teams Membership Director Relationship Specialty Start Date End Date Elsewhere, Pcp PCP - General Internal Medicine 05/29/19 documented as of this encounter
--- OUTSIDE RECORDS SUMMARY | 2024-03-11 10:48 | XMS_ITS | Encounter Summary ---
Author Name Unknown Organization [facility] Address [address] [place] [address] Care Team Providers Care Associate Sales Representative Name Role Phone Elsewhere, Pcp Primary Care Provider Unavailabl e Reason for Referral * Outpatient (Routine) - Closed Specialty Diagnoses / Procedures Referred By Apolinar lopez Referred To Contact Ophthalmology Kenya Garza M.D. [address] [place] [address] [facility] Referral ID Status Reason Start Date Expiration Date Visits Re quested Visits Authorized [id number] Closed 12/02/2023 06/02/2025 1 1 NING AND WINDING SUPERVISOR Reason for Visit * Reason Comments following up for my eyes * Outpatient (Routine) - Closed Specialty Diagnoses / Procedures Referred By Apolinar lopez Referred To Contact Ophthalmology Kenya Garza M.D. [address] [place] [address] [facility] Referral ID Status Reason Start Date Expiration Date Visits Re quested Visits Authorized [id number] Closed 11/25/2023 05/26/2025 1 1 Encounter Details Date Type Department Care Team (Latest Contact Info) Description 12/02/2023 12:00 PM SPINNING AND WINDING SUPERVISOR Office Visit Department of Ophthalmology in [place], [place] [address] [place] [phone] Kenya Garza M.D. [address] [place] [phone] Panuveitis Right (Primary Dx); Necrosis Retinal Acute [...] How often do you attend synagogue or amish serv ices? Never 06/27/2020 Do you belong [...] medical care, and heating? Somewhat hard 06/27/2020 [facility] Occupat ional Health - Occupational Stress [...] your living situation today? I have a [facility] place to live 11/05/2023 Education [...] Kenya Garza M.D. - 12/02/2023 12:00 PM SPINNING AND WINDING SUPERVISOR Please continue the oral valacyclovir medication, 1000 [...] . Call with questions or new symptoms: [phone] NING AND WINDING SUPERVISOR documented in this encounter Progress Notes * [...] with tobramycin drops without improvement. She saw health educator Dr. Daisy Ivy on 10/23/23. 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 In August 2023, she was sent from an infusion center to [place] emergency department where shewas found to have oxygen saturations of 78%. CT imaging showed worsening bilateral ground glass opacities. A CT scan was negative for pulmonary embolism. She was transferred to [facility] for additional pulmonology care. On [...] three times in the past three months: [place] (09/02/23 for hypercalcemiaand acute kidney injury - had CT chest/abdomen/pelvis to assess for malignancy), [facility] again. Each time she saw her [...] plans to monitor. (Her oncologist is at [facility].) MEDICATIONS Prednisolone every hour while awake [...] shallow retinal detachment. No T sign noted. [facility] Macula OCT of the right [...] membranes. Possible posterior thickening. No T sign. [facility] HSV 2 PCR from anterior [...] rule out shallow detachment vs subhyaloid opacities. [facility] HSV 2 PCR from anterior [...] pm: [facility], [facility], trop both eyes, [facility] NING AND WINDING SUPERVISOR documented in this encounter Plan of Treatment Upcoming Encounters Date Type Department Care Team (Late st Contact Info) Description 03/13/2024 8:00 AM CDT Ancillary Procedure Department of Ophthalmology in [place], [place] [address] [place] [address] Kenya Garza M.D. [address] [place] [address] 03/13/2024 11:00 AM CDT Ancillary Procedure Department of Ophthalmology in [place], [place] [address] [place] [phone] Kenya Garza M.D. [address] [place] [phone] 03/13/2024 11:30 AM CDT Office Visit Department of Ophthalmology in [place], [place] [address] [place] [phone] Kenya Garza M.D. [address] [place] [phone] 03/13/2024 12:00 PM CDT Ancillary Procedure Department of Ophthalmology in [place], [place] [address] [place] [phone] Kenya Garza M.D. [address] [place] [phone] Scheduled Referrals Name Type Priority Associated Diagnoses Order Schedule Ophthalmology office visit (clinic) Outpatient Referral Routine Expected: 12/17/2023, Expires: 12/02/2026 documented as of this encounter Visit Diagnoses Diagnosis Panuveitis Right- Primary Necrosis Retinal Acute Right documented in this encounter Care Teams Associate Sales Representative Relationship Specialty Start Date End Date Elsewhere, Pcp PCP - General Internal Medicine 05/29/19 documented as of this encounter
--- OUTSIDE RECORDS SUMMARY | 2024-03-11 10:48 | XMS_ITS | Encounter Summary ---
Author Name Unknown Organization [facility] Address [address] [place] [address] Care Team Providers Care Kindergarten Prep Teacher Name Role Phone Elsewhere, Pcp Primary Care Provider Unavailabl e Encounter Details Date Type Department Care Team (Late st Contact Info) Description 12/17/2023 1:30 PM GRAPHICS SOFTWARE ENGINEER Ancillary Procedure Department of Ophthalmology Social History Tobacco Use Types Packs/Day Years Used Date Smoking Tobacco: Light Smoker Cigarettes 0.5 44 Started: 02/26/1980 Smokeless Tobacco: Never Comments:On again off again Alcohol Use Standard Drinks/Week Comments Yes 0 (1 standard drink = 0.6 oz pur e alcohol) [facility] Utilities Answer Date Recorded In the past 12 months has th [employer], gas, oil, or water company threatened [...] How often do you attend protestant or protestant serv ices? Never 06/27/2020 Do [...] care, and heating? Somewhat hard 06/27/2020 [facility] Answer [...] CDT Ancillary Procedure Department of Ophthalmology in [place], [place] [address] [place] [phone] Kenya Garza M.D. [address] [place] [phone] 03/13/2024 11:00 AM CDT Ancillary Procedure Department of Ophthalmology in [address] [phone] Kenya Garza M.D. [address] [place] [phone] 03/13/2024 11:30 AM CDT Office Visit Department of Ophthalmology in [address] [phone] Kenya Garza M.D. [address] [place] [phone] 03/13/2024 12:00 PM CDT Ancillary Procedure Department of Ophthalmology in [place], [place] [address] [place] [phone] Kenya Garza M.D. [address] [place] [phone] documented as of this encounter Procedures Procedure Name Priority Date/Time Associated Diagnosis Comments OPHTHALMOLOGY IMAGE EXAM Routine 12/17/2023 1:30 PM GRAPHICS SOFTWARE ENGINEER documented in this encounter Results * Visual Stewart (VF)-Ophthalmology Image Exam (12/17/2023 1:30 PM GRAPHICS SOFTWARE ENGINEER) 12/17/2023 1:27 PM GRAPHICS SOFTWARE ENGINEER Narrative IIMS - 12/17/2023 3:38 PM GRAPHICS SOFTWARE ENGINEER This order has been created and auto-finalized to support the import of images acquired without order. The clinical documentation to support these images can be found on the encounter that produced images. Provider Not In System IMG NON RAD IMAGI NG PROCEDURES IIMS NA documented in this encounter Visit Diagnoses Not on filedocumented in this encounter Care Teams Kindergarten Prep Teacher Relationship Specialty Start Date End Date Elsewhere, Pcp PCP - General Internal Medicine 05/29/19 documented as of this encounter
--- OUTSIDE RECORDS SUMMARY | 2024-03-11 10:48 | XMS_ITS | Encounter Summary ---
Author Name Unknown Organization [facility] Address [address] [place] [address] Care Team Providers Care Art Teacher Name Role Phone Elsewhere, Pcp Primary Care Provider Unavailabl e Reason for Referral * Outpatient (Routine) - Closed Specialty Diagnoses / Procedures Referred By Contac t Referred To Contact Cardiovascular Disease Diagnoses Coronary Artery Disease (Unspecified) Katerine Bashir M.D. [address] [place] [address] [facility] Referral ID Status Reason Start Date Expiration Date Visits Re quested Visits Authorized [id number] Closed 02/10/2019 02/10/2020 3 3 Encounter Details Date Type Department Care Team (Late st Contact Info) Description 02/10/2019 [facility] [address] [place] [address] Katerine Bashir M.D. [address] [place] [address] Coronary Artery Disease (Unspecified) (Primary [...] CDT Ancillary Procedure Department of Ophthalmology in [place], [place] [address] [place] [phone] Kenya Garza M.D. [address] [place] [phone] 03/13/2024 11:00 AM CDT Ancillary Procedure Department of Ophthalmology in [place], [place] [address] [place] [phone] Kenya Garza M.D. [address] [place] [phone] 03/13/2024 11:30 AM CDT Office Visit Department of Ophthalmology in [place], [place] [address] [place] [phone] Kenya Garza M.D. [address] [place] [phone] 03/13/2024 12:00 PM CDT Ancillary Procedure Department of Ophthalmology in [place], [place] [address] [place] [phone] Kenya Garza M.D. [address] [place] [phone] Scheduled Referrals Name Type Priority Associated Diagnoses [...] documented as of this encounter Care Teams Art Teacher Relationship Specialty Start Date End Date Elsewhere, Pcp PCP - General Internal Medicine 05/29/19 documented as of this encounter
--- OUTSIDE RECORDS SUMMARY | 2024-03-11 10:48 | XMS_ITS | Encounter Summary ---
Author Name Unknown Organization [facility] Address [address] [place] [address] Care Team Providers Care Table Worker Packager Name Role Phone Elsewhere, Pcp Primary Care Provider Unavailabl e Reason for Referral * Outpatient (Routine) - Closed Specialty Diagnoses / Procedures Referred By Apolinar lopez Referred To Contact Neurology Diagnoses Posterior Reversible Encephalopathy Syndrome Katerine Bashir M.D. [address] [place] [address] [facility] Referral ID Status Reason Start Date Expiration Date Visits Re quested Visits Authorized [id number] Closed 01/20/2024 07/21/2025 1 1 Encounter Details Date Type Department Care Team (Latest Contact Info) Description 01/20/2024 [facility] [address] [place] [address] Katerine Bashir M.D. [address] [place] [address] Posterior Reversible Encephalopathy Syndrome (Primary Dx) Social History Tobacco Use Types Packs/Day Years Used Date Smoking Tobacco: Light Smoker Cigarettes 0.5 44 Started: 02/26/1980 Smokeless Tobacco: Never Comments:On again off again Alcohol Use Standard Drinks/Week Comments Yes 0 (1 standard drink = 0.6 oz pur e alcohol) [facility] Utilities Answer Date Recorded In the past 12 months has [facility], gas, oil, or water [employer] threatened to shut off services in your home? No 11/05/2023 Social Connection and Isolation Panel [NHANES] A nswer Date Recorded In a typical week, how many times do you talk on the phone with family, friends, or neighbors? Once a week 06/27/2020 How often do you get together with friends or re latives? Never 06/27/2020 How often do you attend lutheran or advent serv ices? Never 06/27/2020 Do you belong [...] 06/27/2020 [facility] of Occupat ional Health [...] your living situation today? I have a [facility] place to live 11/05/2023 Education Answer [...] CDT Ancillary Procedure Department of Ophthalmology in [place], [place] [address] [place] [phone] Kenya Garza M.D. [address] [place] [phone] 03/13/2024 11:00 AM CDT Ancillary Procedure Department of Ophthalmology in [place], [place] [address] [place] [phone] Kenya Garza M.D. [address] [place] [phone] 03/13/2024 11:30 AM CDT Office Visit Department of Ophthalmology in [place], [place] [address] [place] [address] Kenya Garza M.D. 200 [place] [address] 03/13/2024 12:00 PM CDT Ancillary Procedure Department of Ophthalmology in [place], [place] [address] [place] [address] Kenya Garza M.D. 200 [place] [phone] Scheduled Referrals Name Type Priority Associated Diagnoses Orde r Schedule Neurology Referral Outpatient Referral Routine Posterior Reversible Encephalopathy Syndrome Expected: 01/20/2024 (Approximate), Expires: 04/21/2025 documented as of this encounter Visit Diagnoses Diagnosis Posterior Reversible Encephalopathy Syndrome- Primary documented in this encounter Care Teams Table Worker Packager Relationship Specialty Start Date End Date Elsewhere, Pcp PCP - General Internal Medicine 05/29/19 documented as of this encounter
--- OUTSIDE RECORDS SUMMARY | 2024-03-11 10:48 | XMS_ITS | Encounter Summary ---
Author Name Unknown Organization [facility] Address [address] [place] [address] Care Team Providers Care Rigging Engineer Name Role Phone Elsewhere, Pcp Primary [...] drink = 0.6 oz pur e alcohol) [facility] Utilities Answer Date Recorded In the past 12 months has [employer] electric, gas, oil, or water company threatened [...] How often do you attend confucianism or synagogue serv ices? Never 06/27/2020 Do you belong [...] Somewhat hard 06/27/2020 [facility] Occupat ional [facility] - Occupational Stress Questionnaire Answer Date [...] your living situation today? I have a [facility] place to live 11/05/2023 [...] CDT Ancillary Procedure Department of Ophthalmology in [place], [place] [address] [place] [phone] Kenya Garza M.D. [address] [place] [phone] 03/13/2024 11:00 AM CDT Ancillary Procedure Department of Ophthalmology in [place], [place] [address] [place] [phone] Kenya Garza M.D. [address] [place] [phone] 03/13/2024 11:30 AM CDT Office Visit Department of Ophthalmology in [place], [place] [address] [place] [phone] Kenya Garza M.D. [address] [place] [phone] 03/13/2024 12:00 PM CDT Ancillary Procedure Department of Ophthalmology in [place], [place] [address] [place] [phone] Kenya Garza M.D. [address] [place] [phone] documented as of this encounter Procedures Procedure Name Priority Date/Time Associated Diagnosis Comments OPHTHALMOLOGY IMAGE EXAM Routine 01/01/2024 12:00 AM THERMAL INTELLIGENCE ANALYST documented in this encounter Results * Eyes Spectralis OCT-Ophthalmology Image Exam (01/01/2024 12:00 AM THERMAL INTELLIGENCE ANALYST) Narrative IIMS - 01/01/2024 12:37 PM THERMAL INTELLIGENCE ANALYST This order has been created and auto-finalized to support the import of images acquired without order. The clinical documentation to support these images can be found on the encounter that produced images. Provider Not In System IMG NON RAD IMAGI NG PROCEDURES IIMS NA documented in this encounter Visit Diagnoses Not on filedocumented in this encounter Care Teams Rigging Engineer Relationship Specialty Start Date End Date Elsewhere, Pcp PCP - General Internal Medicine 05/29/19 documented as of this encounter
--- OUTSIDE RECORDS SUMMARY | 2024-03-11 10:48 | XMS_ITS | Encounter Summary ---
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 [address] [place] [address] Panuveitis Right Social History Tobacco Use Types Packs/Day Years Used Date Smoking Tobacco: Light Smoker Cigarettes 0.5 44 Started: 02/26/1980 Smokeless Tobacco: Never Comments:On again off again Alcohol Use Standard Drinks/Week Comments Yes 0 (1 standard drink = 0.6 oz pur e alcohol) [facility] Utilities Answer Date Recorded In the past 12 months has [employer], gas, oil, or water [employer] threatened to shut off services in your home? No 11/05/2023 Social Connection and Isolation Panel [NHANES] A nswer Date Recorded In a typical week, how many times do you talk on the phone with family, friends, or neighbors? Once a week 06/27/2020 How often do you get together with friends or re latives? Never 06/27/2020 How often do you attend yazdanism or gnosticism serv ices? Never 06/27/2020 Do you belong to any clubs o r organizations such as yazdanism groups, unions, fraternal or athletic groups, or [...] medical care, and heating? Somewhat hard 06/27/2020 [facility] of Occupat ional Health - Occupational Stress [...] CDT Ancillary Procedure Department of Ophthalmology in [place], [place] [address] [place] [phone] Kenya Garza M.D. [address] [place] [phone] 03/13/2024 11:00 AM CDT Ancillary Procedure Department of Ophthalmology in [place], [place] [address] [place] [phone] Kenya Garza M.D. [address] [place] [phone] 03/13/2024 11:30 AM CDT Office Visit Department of Ophthalmology in [place], [place] [address] [place] [phone] Kenya Garza M.D. [address] [place] [phone] 03/13/2024 12:00 PM CDT Ancillary Procedure Department of Ophthalmology in [place], [place] [address] [place] [phone] Kenya Garza M.D. [address] [place] [phone] documented as of this encounter Procedures Procedure Name Priority Date/Time Associated Diagnosis Comments AUTOMATED VF - INTERMEDIATE - OU - BOTH EYES Routine 12/17/2023 3:30 PM RECEIVING LEAD Panuveitis Right documented in this encounter Results * Automated VF - Intermediate - OU - Both Eyes (12/17/2023 3:30 PM RECEIVING LEAD) Narrative OPHTHALMOLOGY IMAGING EXAM - 12/17/2023 6:34 PM RECEIVING LEAD Right Eye Automated visual field device used was other. Left Eye Automated visual field device used was other. Notes [place] Binocular drivers test - both eyes - horizontal 120 degrees Kenya Garza M.D. OPHTH VISUAL FIELD OPHTHALMOLOGY IMAGING EXAM documented in this encounter Visit Diagnoses Diagnosis Panuveitis Right documented in this encounter Care Teams Poultry Picker Relationship Specialty Start Date End Date Elsewhere, Pcp PCP - General Internal Medicine 05/29/19 documented as of this encounter
--- OUTSIDE RECORDS SUMMARY | 2024-03-11 10:49 | XMS_ITS | Clinical Summary ---
Author Name Unknown Organization [facility] Address [place], [place] [address] Care Team Providers Care Supply Officer Name Role Phone Easton Mccormick MD Unavailable [phone] Katerine Bashir MD Primary Care Provider + Allergies Active Allergy Reactions Criticality Noted Date Comments Wheeler Yefri Itching 09/11/2023 Medications Medication Sig Dispensed Refills Start Date End Date Status aspirin (ECOTRIN) 81 mg enteric coated tabletIndications:N on-ST elevation GA (NSTEMI) (HC) Take 1 tablet by mouth once daily with a meal. 0 11/30/2015 Active atorvastatin (LIPITOR) 40 mg tabletIndications:C oronary artery disease, angina presence unspecified, unspecified vessel or lesion type, unspecified whether [place] or transplanted heart Take 1 tablet by [...] Date Diagnosed Date Acute respiratory failure 01/14/2024 [place] coma scale total score 3-8 01/14/2024 Coma [...] ACP (advance care planning) 09/11/2023 Non-ST elevation GA (NSTEMI) 11/19/2015 Melanoma in situ 06/15/2014 Overview: Right lower anterior leg and upper right eyelid. 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 Morbid obesity 04/10/2010 Diabetes mellitus, type 2 HTN (hypertension) CAD (coronary artery disease) Hyperlipidemia LDL goal <70 Encounters Date Type Department Care Team Description 01/23/2024 Telephone [facility] [address] [place] [phone] Audrey Givens NP Appointment (Imaging and follow up with [employer] ) 01/22/2024 Orders Only [facility] [address] [place] [address] Nicolle Flores MD <No scans attached> 01/08/2024 9:21 PM CDT - 01/14/2024 3:51 PM CDT Hospital Encounter [facility] [address] [place] [address] [facility], Hospitalist c Santi Mcwilliams MD Zamfirescu, Anca [...] SCREEN FFDM (IA) Routine 10/04/2016 9:00 AM [employer] Visit for screening mammogram LIPID PANEL W REFLEX MEASURED LDL Routine 09/11/2016 9:26 AM [employer]IST Hyperlipidemia, unspecified XR DXA BONE DENSITY 2 SITES AXIAL Routine 08/18/2015 9:25 AM CDT Screening for osteoporosis from Last 3 Months or Most Recently Relevant to Health Maintenance Results * (ABNORMAL) GLUCOSE METER (01/14/2024 12:46 PM CDT) Only the most recent of27 resultswithin the time period is included. [facility] METER 221(H) 65 - 100 mg/dL 01/14/2024 12:49 PM CDT [facility] Blood BLOOD SPECIMEN / Unknown 01/14/2024 12:46 PM CDT 01/14/2024 12:49 PM CDT Ines Lee MD CHEMISTRY Performing Organization Address City/[facility]/ZIP Co de Phone Number [facility] SENDOUT INTERNAL ZIP [phone] [place] [address] * SCAN-CARDIAC STRIP (01/14/2024 10:04 AM CDT) Scanner OTHER * PLATELET COUNT (01/14/2024 5:15 AM CDT) PLATELET COUNT 189 140 - 440 thou/cu mm 01/14/2024 6:02 AM CDT [facility] MPV 10.6 6.5 - 11.0 fL 01/14/2024 6:02 AM CDT [facility] Blood BLOOD SPECIMEN / Unknown Venipuncture / Unknown 01/14/2024 5:15 AM CDT 01/14/2024 5:46 AM CDT Santi Elmore MD HEMATOLOGY Performing Organization Address [facility] Co de Phone Number [facility] SENDOUT INTERNAL ZIP [phone] [place] [address] * POTASSIUM (01/14/2024 5:15 AM CDT) Only the most recent of6 resultswithin the time period is included. POTASSIUM 3.9 3.5 - 5.1 mmol/L 01/14/2024 6:15 AM CDT [facility] Blood BLOOD SPECIMEN / Unknown Venipuncture / Unknown 01/14/2024 5:15 AM CDT 01/14/2024 5:46 AM CDT Ines Lee MD CHEMISTRY Performing Organization Address City/[facility]/ZIP Co de Phone Number [facility] SENDOUT INTERNAL ZIP [phone] [place] [address] * MAGNESIUM (01/14/2024 5:15 AM CDT) Only the most recent of6 resultswithin the time period is included. Pathologist [facility] MAGNESIUM 2.1 1.6 - 2.4 mg/dL 01/14/2024 6:15 AM CDT [facility] Blood BLOOD SPECIMEN / Unknown Venipuncture / Unknown 01/14/2024 5:15 AM CDT 01/14/2024 5:46 AM CDT Anca Wandy Lee MD CHEMISTRY [facility] SENDOUT INTERNAL ZIP [phone] [place] [address] * SCAN-CARDIAC STRIP (01/14/2024 2:38 AM CDT) [...] resultswithin the time period is included. Pathologist [facility] Interpretation Sinus rhythm with short [place] with occasional Premature ventricular complexes Septal infarct [...] NOW QTc 405 ms BEYOND NOW P Newton -21 degrees BEYOND NOW R Newton 3 degrees BEYOND NOW T Newton 75 degrees BEYOND NOW 01/13/2024 10:2 5 AM CDT 01/14/2024 2:27 PM CDT Latoya Schmitt [employer] EKG ORD BEYOND NOW [place], [place] * EXTRA TUBE LAVENDER (01/13/2024 5:00 AM CDT) Blood BLOOD SPECIMEN / Unknown Extra Tube / Unknown 01/13/2024 5:00 AM CDT 01/13/2024 5:24 AM CDT Doctor Unknown LABORATORY [facility] SENDOUT INTERNAL ZIP [phone] [place] [address] * (ABNORMAL) BASIC METABOLIC PANEL (01/13/2024 5:00 AM CDT) Only the most recent of5 resultswithin the time period is included. SODIUM 135(L) 136 - 145 mmol/L 01/13/2024 5:52 AM T [facility] POTASSIUM 01/13/2024 5:52 AM T [facility] Comment:Canceled- Specimen H emolyzed, Disposition Per Policy CHLORIDE 92(L) 98 - 107 mmol/L 01/13/2024 5:52 AM T [facility] CO2,TOTAL 27 22 - 29 mmol/L 01/13/2024 5:52 AM T [facility] ANION GAP 16 5 - 18 01/13/2024 5:52 AM T [facility] GLUCOSE 151(H) 70 - 99 mg/dL 01/13/2024 5:52 AM T [facility] CALCIUM 10.4(H) 8.8 - 10.2 mg/dL 01/13/2024 5:52 AM T [facility] BUN 38(H) 8 - 23 mg/dL 01/13/2024 5:52 AM T [facility] CREATININE 0.91(H) 0.50 - 0.90 mg/dL 01/13/2024 5:52 AM T [facility] BUN/CREAT RATIO 42(H) 10 - 20 5:52 AM CDT [facility] eGFR 70(L) >90 mL/min/1.7 3m2 01/13/2024 5:52 AM CDT [facility] Comment:As of 2022, eG FR is [...] AM CDT Anca Wandy Lee MD CHEMISTRY [facility] SENDOUT INTERNAL ZIP [phone] [place] [address] * SCAN-CARDIAC STRIP (01/13/2024 12:22 AM CDT) Scanner OTHER * SCAN-CARDIAC STRIP (01/12/2024 8:17 PM CDT) Scanner OTHER * SCAN-CARDIAC STRIP (01/12/2024 3:18 PM CDT) Scanner OTHER * ECHO TTE COMPLETE W CONTRAST (01/12/2024 10:18 AM CDT) EJECTION FRACTION 50-55% PROSOLV Anatomical Region Laterality Modality Ultrasound 01/12/2024 8:26 AM CDT Narrative 01/12/2024 12:01 PM CDT [facility] [address] [address] Main: [email or web address] ? Transthoracic Echo Report MAYA, BREEZY Excellian ID: [id number] Age: 68 : 1955 Ordering Provider: ROSIE JUNE Exam Date: 01/12/2024 08:26 Gender: F Meat Manager: ANDREWS Height: 66 in BSA: 1.87 m?? BP: 106 / 47 Weight: 171 lbs BMI: 27.6 kg/m?? HR: 68 Location: Inpatient (Portable) Rhythm: Sinus Arrhythmia Procedure Components: 2D imaging with contrast, Color Doppler, Spectral Doppler Indications: Congestive Heart Failure Technical Quality: Fair Contrast: Definity Constrast Dose (ml): .15 [facility]#: [id number] Final Conclusion 1. Normal left ventricular chamber [...] Peak Velocity ?0.758 m/sec Ginger Loredo MD [facility] Accredited Site (Electronically Signed) Final Date: 12 January 2024 12:01 ICD-10 Codes: 428 Procedure Note Ginger Loredo MD - 01/12/2024 [facility] [place] [address] Main: [email or web address] Transthoracic Echo Report BREEZY TREJO Makenna ID: [id number] Age: 68 : 1955 Ordering Provider:ROSIE JUNE Exam Date: 01/12/2024 08:26 Gender: F Meat Manager: ANDREWS Height: 66 in BSA: 1.87 m?? BP: 106 / 47 Weight: 171 lbs BMI: 27.6 kg/m?? HR: 68 Location: Inpatient (Portable) Rhythm: Sinus Arrhythmia Procedure Components: 2D imaging with contrast, Color Doppler, SpectralDoppler Indications: Congestive Heart Failure Technical Quality: Fair Contrast: Definity Constrast Dose (ml): .15 [facility]#: [id number] Final Conclusion 1. Normal left ventricular chamber [...] Peak Velocity 0.758 m/sec Ginger Loredo MD [facility] Accredited Site (Electronically Signed) Final Date: 12 January 2024 12:01 ICD-10 Codes: 428 Rosie June [employer] ECHO ORD * SCAN-CARDIAC STRIP (01/12/2024 10:17 [...] EXAM: XR CHEST 1 VIEW PORTABLE LOCATION: [facility] MEDICAL IMAGING DATE: 01/12/2024 INDICATION: Shortness of breath COMPARISON: 01/10/2024 Procedure Note Franck Hill MD - 01/12/2024 For Patients: As a result of the Cures Act, medical imagingexams and procedure reports are released immediately into your electronicmedical record. You may view this report before your referring provider.If you have questions, please contact your health care provider. EXAM: XR CHEST 1 VIEW PORTABLE LOCATION: [facility] MEDICAL IMAGING DATE: 01/12/2024 INDICATION: Shortness of [...] 2,530(H) <125 pg/mL 01/11/2024 3:11 PM CDT [facility] Blood BLOOD SPECIMEN / Unknown Line/Port / Unknown 01/11/2024 1:07 PM CDT 01/11/2024 1:10 PM CDT Narrative [facility] - 01/11/2024 3:11 PM CDT The [...] ? Anca Wandy Lee MD SEND OUTS [facility] SENDOUT INTERNAL ZIP [phone] [place] [address] * SCAN-CARDIAC STRIP (01/11/2024 7:56 AM CDT) Scanner OTHER * (ABNORMAL) CBC WITH AUTO DIFFERENTIAL (01/11/2024 4:59 AM CDT) Only the most recent of2 resultswithin the time period is included. WHITE BLOOD COUNT 7.5 4.5 - 11.0 thou/cu mm 01/11/2024 5:19 AM [facility] RED BLOOD COUNT 3.98(L) 4.00 - 5.20 mil/cu mm 01/11/2024 5:19 AM [facility] HEMOGLOBIN 12.5 12.0 - 16.0 g/dL 01/11/2024 5:19 AM [facility] HEMATOCRIT 37.4 33.0 - 51.0 % 01/11/2024 5:19 AM T [facility] MCV 94 80 - 100 fL 01/11/2024 5:19 AM [facility] MCH 31.4 26.0 - 34.0 pg 01/11/2024 5:19 AM [facility] MCHC 33.4 32.0 - 36.0 g/dL 01/11/2024 5:19 AM [facility] RDW 19.3(H) 11.5 - 15.5 % 01/11/2024 5:19 AM [facility] PLATELET COUNT 130(L) 140 - 440 thou/cu mm 01/11/2024 5:19 AM [facility] MPV 10.8 6.5 - 11.0 fL 01/11/2024 5:19 AM CDT [facility] NRBC 0.3 % 01/11/2024 5:19 AM [facility] ABS NRBC 0.0 thou /cu mm 01/11/2024 5:19 AM CDT [facility] % NEUT 37.8 % 01/11/2024 5:19 AM CDT [facility] % LYMPH 47.7 % 01/11/2024 5:19 AM CDT [facility] % MONO 10.5 % 01/11/2024 5:19 AM CDT [facility] % EOS 1.1 % 01/11/2024 5:19 AM CDT [facility] % BASO 0.8 % 01/11/2024 5:19 AM CDT [facility] % IMMATURE GRAN (METAS,MYELOS,AZ OS) 2.1 % 01/11/2024 5:19 AM CDT [facility] ABSOLUTE NEUTROPHILS 2.8 1.7 - 7.0 thou/cu mm 01/11/2024 5:19 AM CDT [facility] ABSOLUTE LYMPHOCYTES 3.6(H) 0.9 - 2.9 thou/cu mm 01/11/2024 5:19 AM CDT [facility] ABSOLUTE MONOCYTES 0.8 <0.9 thou/cu mm 01/11/2024 5:19 AM CDT [facility] ABSOLUTE EOSINOPHILS 0.1 <0.5 thou/cu mm 01/11/2024 5:19 AM CDT [facility] ABSOLUTE BASOPHILS 0.1 <0.3 thou/cu mm 01/11/2024 5:19 AM CDT [facility] ABSOLUTE IMMATURE GRANULOCYTES(MET ,MYELOS,PROS) 0.2 <0.3 thou/cu mm 01/11/2024 5:19 AM CDT [facility] Blood BLOOD SPECIMEN / Unknown Venipuncture / Unknown 01/11/2024 4:59 AM CDT 01/11/2024 5:08 AM CDT Tea Garcia MD HEMATOLOGY [facility] SENDOUT INTERNAL ZIP [phone] [place] [address] * SCAN-CARDIAC STRIP (01/11/2024 12:48 AM CDT) [...] (ANKITA) Negative Negative 01/13/2024 1:11 PM CDT [facility] Blood BLOOD SPECIMEN / Unknown Venipuncture / Unknown 01/10/2024 4:44 AM CDT 01/10/2024 5:16 AM CDT Narrative [facility] - 01/13/2024 1:11 PM CDT Method: ANKITA screen performed by (IFA) on HEP-2 substrate, IgG Nicolle Flores MD CHEMISTRY Performing Organization Address [facility] Co de Phone Number [facility] [address] [place] [address], * ANCA PANEL FOR VASCULITIS (01/10/2024 4:44 AM CDT) Pathologist [facility] ANCA Negative Negative 01/14/2024 11:09 AM CDT [facility] Comment: Atypical ANCA cannot be ruled out due to presence of ANKITA on screening.?? ANKITA screen results are not valid for diagnosis of Autoimmune Disease.?? Order ANKITA testing for further evaluation as clinically indicated. Blood BLOOD SPECIMEN / Unknown Venipuncture / Unknown 01/10/2024 4:44 AM CDT 01/10/2024 5:16 AM CDT Nicolle Flores MD SEND OUTS Performing Organization Address City/[facility]/ZIP Co de Phone Number [facility] [address] [place] [address], [place] * (ABNORMAL) COMP METABOLIC PANEL (01/10/2024 4:44 AM CDT) Pathologist [facility] SODIUM 141 136 - 145 mmol/L 01/10/2024 5:43 AM CDT [facility] POTASSIUM 4.3 3.5 - 5.1 mmol/L 01/10/2024 5:43 AM CDT [facility] CHLORIDE 107 98 - 107 mmol/L 01/10/2024 5:43 AM [facility] CO2,TOTAL 24 22 - 29 mmol/L 01/10/2024 5:43 AM [facility] ANION GAP 10 5 - 18 01/10/2024 5:43 AM [facility] GLUCOSE 217(H) 70 - 99 mg/dL 01/10/2024 5:43 AM [facility] CALCIUM 8.0(L) 8.8 - 10.2 mg/dL 01/10/2024 5:43 AM [facility] BUN 15 8 - 23 mg/dL 01/10/2024 5:43 AM [facility] CREATININE 0.73 0.50 - 0.90 mg/dL 01/10/2024 5:43 AM [facility] BUN/CREAT RATIO 21(H) 10 - 20 5:43 AM [facility] eGFR >90 >90 mL/min/1.7 3m2 01/10/2024 5:43 AM [facility] Comment:As of 2022, eG FR is calculated by the CKD-EPI creatinine equation without race adjustment. ??eGFR can be influenced by muscle mass, exercise, and diet. ??The reported eGFR is an estimation only and is only applicable if the renal function is stable. ALBUMIN 3.3(L) 4.0 - 4.9 g/dL 01/10/2024 5:43 AM [facility] PROTEIN,TOTAL 5.1(L) 6.0 - 8.0 g/dL 01/10/2024 5:43 AM [facility] BILIRUBIN,TOTAL 0.6 0.0 - 1.2 mg/dL 01/10/2024 5:43 AM [facility] ALK PHOSPHATASE 53 35 - 104 IU/L 01/10/2024 5:43 AM [facility] ALT (SGPT) 14 10 - 35 IU/L 01/10/2024 5:43 AM [facility] AST (SGOT) 19 10 - 35 IU/L 01/10/2024 5:43 AM [facility] Blood BLOOD SPECIMEN / Unknown Venipuncture / Unknown 01/10/2024 4:44 AM CDT 01/10/2024 5:15 AM CDT Tea Garcia MD CHEMISTRY [facility] SENDOUT INTERNAL ZIP [phone] [place] [address] * SCAN-CARDIAC STRIP (01/10/2024 12:00 AM CDT) [...] EXAM: XR ABDOMEN 1 VIEW PORTABLE LOCATION: [facility] MEDICAL IMAGING DATE: 01/09/2024 INDICATION: Tube placement COMPARISON: None. Procedure Note So, Geoff Corona MD - 01/09/2024 For Patients: As a result of the s Act, medical imagingexams and procedure reports are released immediately into your electronicmedical record. You may view this report before your referring provider.If you have questions, please contact your health care provider. EXAM: XR ABDOMEN 1 VIEW PORTABLE LOCATION: [facility] DATE: 01/09/2024 INDICATION: Tube placement [...] Yellow Yellow Color 01/09/2024 2:03 PM CDT [facility] CLARITY Clear Clear Clarity 01/09/2024 2:03 PM CDT [facility] SPECIFIC GRAVITY,URINE 1.015 1.010, 1.015, 1.020, 1.025 01/09/2024 2:03 PM CDT [facility] PH,URINE 5.5 6.0, 7.0, 8.0, 5.5, 6.5, 7.5, 8.5 01/09/2024 2:03 PM CDT [facility] UROBILINOGEN, QUALITATIVE Normal Normal EU/dl 01/09/2024 2:03 PM CDT [facility] PROTEIN, URINE Trace(A) Negative mg/dL 01/09/2024 2:03 PM CDT [facility] GLUCOSE, URINE Negative Negative mg/dL 01/09/2024 2:03 PM CDT [facility] KETONES,URINE Negative Negative mg/dL 01/09/2024 2:03 PM CDT [facility] BILIRUBIN,URI NE Negative Negative 01/09/2024 2:03 PM CDT [facility] OCCULT BLOOD,URINE Negative Negative 01/09/2024 2:03 PM CDT [facility] NITRITE Negative Negative 01/09/2024 2:03 PM CDT [facility] LEUKOCYTE ESTERASE Negative Negative 01/09/2024 2:03 PM CDT [facility] Urine URINE SPECIMEN / Unknown Non-Blood / Unknown 01/09/2024 1:43 PM CDT 01/09/2024 1:52 PM CDT Nicolle Flores MD URINE [facility] SENDOUT INTERNAL ZIP [phone] [place] [address] * SPUTUM CULTURE, STAIN (01/09/2024 10:10 AM CDT) CULTURE Usual geovanni 01/11/2024 9:18 AM CDT [facility] GRAM STAIN 3+ PMNs 01/11/2024 9:18 AM CDT [facility] GRAM STAIN Gram Positive Cocci 01/11/2024 9:18 AM CDT [facility] GRAM STAIN RBCs 01/11/2024 9:18 AM CDT [facility] GRAM STAIN 1+ Epithelial cells 01/11/2024 9:18 AM CDT [facility] GRAM STAIN Gram stain performed by [place], [place] 01/11/2024 9:18 AM CDT [facility] Sputum SPECIMEN FROM ENDOTRACHEAL TUBE / Unknown Non-Blood / Unknown 01/09/2024 10:10 AM CDT 01/09/2024 10:36 AM CDT Nicolle Flores MD MICROBIOLOGY Performing Organization Address City/[facility]/ZIP Co de Phone Number [facility] [address] [place] [address], [facility] SENDOUT INTERNAL ZIP [phone] [place] [address] * SEDIMENTATION RATE (01/09/2024 9:50 AM CDT) SEDIMENTATION RATE 4 <30 mm/hr 2023 10:14 AM CDT [facility] Blood BLOOD SPECIMEN / Unknown Butterfly / Unknown 01/09/2024 9:50 AM CDT 01/09/2024 9:54 AM CDT Nicolle Flores MD HEMATOLOGY [facility] SENDOUT INTERNAL ZIP [phone] [place] [address] * BLOOD CULTURE (01/09/2024 9:50 AM CDT) Only the most recent of2 resultswithin the time period is included. CULTURE No Growth. 01/13/2024 4:25 PM CDT [facility] Blood BLOOD SPECIMEN / Unknown Butterfly / Unknown 01/09/2024 9:50 AM CDT 01/09/2024 9:54 AM CDT Nicolle Flores MD MICROBIOLOGY [facility] [address] [place] [address], * TSH (01/09/2024 9:50 AM CDT) Pathologist [facility] TSH 0.58 0.27 - 4.20 uIU/mL 01/09/2024 11:43 AM CDT [facility] Blood BLOOD SPECIMEN / Unknown Butterfly / Unknown 01/09/2024 9:50 AM CDT 01/09/2024 9:55 AM CDT Narrative [facility] - 01/09/2024 11:43 AM CDT In Adults, TSH values between 5.00 and 10.00 uIU/ml do not necessarily indicate the presence of Hypothyroidism. Correlation with clinical findings such as presence of goiter and/or Thyroperoxidase (TPO) Antibody may be helpful. For more information please refer to RADHA 2004; 291: 228-238. Nicolle Flores MD CHEMISTRY [facility] SENDOUT INTERNAL ZIP [phone] [place] [address] * RA QUANTITATIVE (01/09/2024 9:50 AM CDT) Pathologist [facility] RHEUMATOID FACTOR,QUANT <10.00 <14.00 IU/mL 01/09/2024 4:13 PM CDT [facility] Blood BLOOD SPECIMEN / Unknown Butterfly / Unknown 01/09/2024 9:50 AM CDT 01/09/2024 9:55 AM CDT Nicolle Flores MD SEND OUTS [facility] [address] [place] [address], * (ABNORMAL) C-REACTIVE PROTEIN (01/09/2024 9:50 AM CDT) [facility] C-REACTIVE PROTEIN 11.2(H) <0.5 mg/dL 01/09/2024 11:43 AM CDT [facility] Blood BLOOD SPECIMEN / Unknown Butterfly / Unknown 01/09/2024 9:50 AM CDT 01/09/2024 9:55 AM CDT Nicolle Flores MD CHEMISTRY [facility] SENDOUT INTERNAL ZIP [phone] [place] [address] * VITAMIN B12 (01/09/2024 9:50 AM CDT) VITAMIN B12 525 232 - 1,245 pg/mL 01/09/2024 3:57 PM CDT [facility] Blood BLOOD SPECIMEN / Unknown Butterfly / Unknown 01/09/2024 9:50 AM CDT 01/09/2024 9:55 AM CDT [facility] - 01/09/2024 3:57 PM CDT Biotin supplements may cause clinically significant interference for this test assay. ??If interference is suspected, it is strongly recommended that biotin is discontinued for at least one week prior to retesting. Nicolle Flores MD CHEMISTRY [facility] [address] [place] [address], * AMMONIA (01/09/2024 8:09 AM CDT) AMMONIA 44 16 - 60 umol/L 01/09/2024 8:47 AM CDT [facility] Blood BLOOD SPECIMEN / Unknown Venipuncture / Unknown 01/09/2024 8:09 AM CDT 01/09/2024 8:18 AM CDT [facility] - 01/09/2024 8:47 AM CDT 1. ??Sulfasalazine and its metabolite Sulfapyridine at therapeutic concentrations may lead to falsely low results. 2. ??Temozolomide and its metabolite MTIC may lead to falsely elevated results, and its metabolite AIC may lead to falsely low results. Santi Elmore MD CHEMISTRY [facility] SENDOUT INTERNAL ZIP [phone] [place] [address] * SCAN-CARDIAC STRIP (01/09/2024 7:15 AM CDT) Scanner OTHER * EXTRA TUBE BLUE (01/09/2024 6:58 AM CDT) Blood BLOOD SPECIMEN / Unknown Extra Tube / Unknown 01/09/2024 6:58 AM CDT 01/09/2024 6:58 AM CDT Doctor Unknown LABORATORY Performing Organization Address [facility]/ZIP Co de Phone Number [facility] SENDOUT INTERNAL ZIP [phone] [place] [address] * PROCALCITONIN (01/09/2024 6:21 AM CDT) Only the most recent of2 resultswithin the time period is included. PROCALCITONIN 0.12 ng/ml 01/09/2024 7:32 AM CDT [facility] Blood BLOOD SPECIMEN / Unknown Venipuncture / Unknown 01/09/2024 6:21 AM CDT 01/09/2024 6:43 AM CDT Narrative [facility] - 01/09/2024 7:32 AM CDT Procalcitonin [...] are obtained. Santi Elmore MD SEND OUTS [facility] SENDOUT INTERNAL [facility] [id number] [place] [id number] * (ABNORMAL) CBC W PLT NO DIFF (01/09/2024 6:21 AM CDT) Only the most recent of2 resultswithin the time period is included. WHITE BLOOD COUNT 7.9 4.5 - 11.0 thou/cu mm 01/09/2024 6:55 AM CDT [facility] RED BLOOD COUNT 4.56 4.00 - 5.20 mil/cu mm 01/09/2024 6:55 AM CDT [facility] HEMOGLOBIN 14.4 12.0 - 16.0 g/dL 01/09/2024 6:55 AM CDT [facility] HEMATOCRIT 43.7 33.0 - 51.0 % 01/09/2024 6:55 AM T [facility] MCV 96 80 - 100 fL 01/09/2024 6:55 AM CDT [facility] MCH 31.6 26.0 - 34.0 pg 01/09/2024 6:55 AM CDT [facility] MCHC 33.0 32.0 - 36.0 g/dL 01/09/2024 6:55 AM CDT [facility] RDW 19.6(H) 11.5 - 15.5 % 01/09/2024 6:55 AM CDT [facility] PLATELET COUNT 146 140 - 440 thou/cu mm 01/09/2024 6:55 AM CDT [facility] MPV 10.3 6.5 - 11.0 fL 01/09/2024 6:55 AM CDT [facility] NRBC 0.0 % 01/09/2024 6:55 AM CDT [facility] ABS NRBC 0.0 thou /cu mm 01/09/2024 6:55 AM CDT [facility] Blood BLOOD SPECIMEN / Unknown Venipuncture / Unknown 01/09/2024 6:21 AM CDT 01/09/2024 6:44 AM CDT Santi Elmore MD HEMATOLOGY [facility] SENDOUT INTERNAL ZIP [phone] [place] [id number] * TRIGLYCERIDES propofol (01/09/2024 6:21 AM CDT) TRIGLYCERIDES 118 <150 mg/dL 01/09/2024 7:22 AM CDT [facility] PROVIDER ORDERED STATUS RANDOM 01/09/2024 7:22 AM CDT [facility] Blood BLOOD SPECIMEN / Unknown Venipuncture / Unknown 01/09/2024 6:21 AM CDT 01/09/2024 6:43 AM CDT Santi Elmore MD CHEMISTRY [facility] SENDOUT INTERNAL ZIP [phone] [place] [phone] * CK TOTAL propofol (01/09/2024 6:21 AM CDT) CK,TOTAL 35 26 - 192 IU/L 01/09/2024 7:22 AM CDT [facility] Blood BLOOD SPECIMEN / Unknown Venipuncture / Unknown 01/09/2024 6:21 AM CDT 01/09/2024 6:43 AM CDT Santi Elmore MD CHEMISTRY Performing Organization Address City/[facility]/ZIP Co de Phone Number [facility] SENDOUT INTERNAL ZIP [phone] [place] [address] * (ABNORMAL) HEPATIC FUNCTION PANEL (01/09/2024 6:21 AM CDT) Only the most recent of2 resultswithin the time period is included. ALBUMIN 3.6(L) 4.0 - 4.9 g/dL 01/09/2024 7:22 AM CDT [facility] PROTEIN,TOTAL 5.3(L) 6.0 - 8.0 g/dL 01/09/2024 7:22 AM T [facility] BILIRUBIN,TOTAL 1.4(H) 0.0 - 1.2 mg/dL 01/09/2024 7:22 AM CDT [facility] BILIRUBIN,DIRECT 0.3 0.0 - 0.3 mg/dL 01/09/2024 7:22 AM T [facility] BILIRUBIN,INDIRE CT 1.1(H) 0.2 - 0.8 mg/dL 01/09/2024 7:22 AM CDT [facility] ALK PHOSPHATASE 58 35 - 104 IU/L 01/09/2024 7:22 AM CDT [facility] ALT (SGPT) 17 10 - 35 IU/L 01/09/2024 7:22 AM CDT [facility] AST (SGOT) 23 10 - 35 IU/L 01/09/2024 7:22 AM CDT [facility] Blood BLOOD SPECIMEN / Unknown Venipuncture / Unknown 01/09/2024 6:21 AM CDT 01/09/2024 6:43 AM CDT Santi Elmore MD CHEMISTRY Performing Organization Address City/[facility]/ZIP Co de Phone Number [facility] SENDOUT INTERNAL ZIP [phone] [place] [phone] * (ABNORMAL) ISTAT EG6+ ABG (01/09/2024 5:38 AM CDT) Only the most recent of2 resultswithin the time period is included. PH, ARTERIAL 7.37 7.35 - 7.45 01/09/2024 5:41 AM CDT [facility] PCO2, ARTERIAL 42 32 - 45 mmHg 01/09/2024 5:41 AM T [facility] PO2, ARTERIAL 126(H) 83 - 108 mmHg 01/09/2024 5:41 AM CDT [facility] HCO3, ARTERIAL 23 21 - 28 mmol/L 01/09/2024 5:41 AM T [facility] BASE EXCESS, ARTERIAL -2.0 -2.0 - 3.0 01/09/2024 5:41 AM T [facility] O2 SATURATION, ARTERIAL 98 94 - 98 % 01/09/2024 5:41 AM T [facility] SODIUM, POCT 01/09/2024 5:41 AM T [facility] Comment:Unable to determine. POTASSIUM, POCT 5:41 AM T [facility] Comment:Unable to determine. INSPIRED O2,ISTAT 50.0 01/09/2024 5:41 AM T [facility] PATIENT TEMPERATURE 38.9 Degrees C 01/09/2024 5:41 AM T [facility] CARRINGTON'S TEST Not Given 01/09/2024 5:41 AM T [facility] SAMPLE TYPE,ISTAT BLOOD GAS ARTERIAL 01/09/2024 5:41 AM T [facility] Blood BLOOD SPECIMEN / Unknown 01/09/2024 5:38 AM CDT 01/09/2024 5:41 AM CDT Ines Lee MD CHEMISTRY [facility] SENDOUT INTERNAL ZIP [phone] [place] [phone] * DRUG SCREEN RAPID URINE INHOUSE (01/09/2024 3:01 AM CDT) THC METABOLITES,NANCI L Not Detected Not Detected 01/09/2024 3:28 AM [facility] PCP,QUAL Not Detected Not Detected 01/09/2024 3:28 AM [facility] COCAINE,QUAL Not Detected Not Detected 01/09/2024 3:28 AM [facility] METHAMPHETAMINE , QUALITATIVE Not Detected Not Detected 01/09/2024 3:28 AM [facility] OPIATES,QUAL Not Detected Not Detected 01/09/2024 3:28 AM [facility] AMPHETAMINE, QUALITATIVE Not Detected Not Detected 01/09/2024 3:28 AM [facility] BENZODIAZEPINES ,QUAL Not Detected Not Detected 01/09/2024 3:28 AM [facility] TRICYCLICS,QUAL Not Detected Not Detected 01/09/2024 3:28 AM [facility] METHADONE, QUALITATIVE Not Detected Not Detected 01/09/2024 3:28 AM [facility] BARBITURATES,QU AL Not Detected Not Detected 01/09/2024 3:28 AM [facility] OXYCODONE, QUALITATIVE Not Detected Not Detected 01/09/2024 3:28 AM [facility] BUPRENORPHINE, QUALITATIVE Not Detected Not Detected 01/09/2024 3:28 AM [facility] Urine URINE SPECIMEN / Unknown Non-Blood / Unknown 01/09/2024 3:01 AM CDT 01/09/2024 3:07 AM [facility] - 01/09/2024 3:28 AM T Please [...] order PCP confirmation. Santi Elmore MD URINE [facility] SENDOUT INTERNAL ZIP [phone] [place] [address] * SCAN-CARDIAC STRIP (01/09/2024 1:18 AM CDT) [...] provider. EXAM: MR HEAD BRAIN WWO LOCATION: [facility] DATE: 01/09/2024 INDICATION: Neuro deficit, [...] provider. EXAM: MR HEAD BRAIN WWO LOCATION: [facility] DATE: 01/09/2024 INDICATION: Neuro deficit, [...] Detected NOT Detected 01/09/2024 9:19 AM CDT [facility] Haemophilus influenza NOT Detected NOT Detected 01/09/2024 9:19 AM CDT [facility] Listeria monocytogenes NOT Detected NOT Detected 01/09/2024 9:19 AM CDT [facility] Neisseria meningitides NOT Detected NOT Detected 01/09/2024 9:19 AM CDT [facility] Streptococcus agalactiae NOT Detected NOT Detected 01/09/2024 9:19 AM CDT [facility] Streptococcus pneumoniae NOT Detected NOT Detected 01/09/2024 9:19 AM CDT [facility] Cytomegalovirus NOT Detected NOT Detected 01/09/2024 9:19 AM CDT [facility] Enterovirus NOT Detected NOT Detected 01/09/2024 9:19 AM CDT [facility] Herpes simplex virus 1 NOT Detected NOT Detected 01/09/2024 9:19 AM CDT [facility] Herpes simplex virus 2 NOT Detected NOT Detected 01/09/2024 9:19 AM CDT [facility] Human herpesvirus 6 NOT Detected NOT Detected 01/09/2024 9:19 AM CDT [facility] Human parechovirus NOT Detected NOT Detected 01/09/2024 9:19 AM CDT [facility] Varicella zoster virus NOT Detected NOT Detected 01/09/2024 9:19 AM CDT [facility] Cryptococcus neoformans/gattii NOT Detected NOT Detected 01/09/2024 9:19 AM CDT [facility] Cerebrospinal Fluid CEREBROSPINAL FLUID SPECIMEN / Unknown Non-Blood / Unknown 01/08/2024 11:55 PM CDT 01/08/2024 11:58 PM [facility]T [facility] 01/09[facility] 9:19 AM CDT [...] for the test. Santi Elmore MD MICROBIOLOGY [facility] [address] [address], * SPINAL FLUID CULT, STAIN (01/08/2024 11:55 PM CDT) CULTURE No Growth. 01/14/2024 11:10 AM CDT [facility] GRAM STAIN 2+ PMNs 01/14/2024 11:10 AM CDT [facility] GRAM STAIN No Epithelial cells 01/14/2024 11:10 AM CDT [facility] GRAM STAIN 3+ RBCs 01/14/2024 11:10 AM CDT [facility] GRAM STAIN No organisms seen 01/14/2024 11:10 AM CDT [facility] GRAM STAIN Gram stain performed by [place], [place] 01/14/2024 11:10 AM CDT [facility] Cerebrospinal Fluid CEREBROSPINAL FLUID SPECIMEN / Unknown Non-Blood / Unknown 01/08/2024 11:55 PM CDT 01/08/2024 11:58 PM CDT Santi Elmore MD MICROBIOLOGY [facility] [address] [address], [facility] SENDOUT INTERNAL ZIP [phone] [place] [phone] * (ABNORMAL) CSF CELL COUNT/DIFF (01/08/2024 11:55 PM CDT) TUBE NUMBER Four 01/09/2024 1:33 AM CDT [facility] CSF COLOR Colorless Colorless 01/09/2024 1:33 AM CDT [facility] CSF CLARITY Clear Clear 01/09/2024 1:33 AM CDT [facility] TOTAL NUCLEATED CELLS, CSF 5 <=25 /cu mm 01/09/2024 1:33 AM CDT [facility] RED BLOOD COUNT, CSF 172(H) <10 /cu mm 01/09/2024 1:33 AM CDT [facility] % NEUTROPHILS, CSF 3 <7 % 01/09/2024 1:33 AM CDT [facility] % LYMPHOCYTES, CSF 97(H) 40 - 80 % 01/09/2024 1:33 AM CDT [facility] Cerebrospinal Fluid CEREBROSPINAL FLUID SPECIMEN / Unknown Non-Blood / Unknown 01/08/2024 11:55 PM CDT 01/08/2024 11:58 PM CDT Narrative [facility] - 01/09/2024 1:33 AM CDT CSF MIN VOLUME: 1.0 mL Santi Elmore MD BODY FLUID [facility] SENDOUT INTERNAL ZIP [phone] [place] [phone] * PROTEIN CSF,TOTAL (01/08/2024 11:55 PM CDT) PROTEIN CSF,TOTAL 41 15 - 45 mg/dL 01/09/2024 12:35 AM CDT [facility] Cerebrospinal Fluid CEREBROSPINAL FLUID SPECIMEN / Unknown Non-Blood / Unknown 01/08/2024 11:55 PM CDT 01/08/2024 11:58 PM CDT Santi Elmore MD BODY FLUID [facility] SENDOUT INTERNAL ZIP [phone] [place] [phone] * (ABNORMAL) GLUCOSE,CSF (01/08/2024 11:55 PM CDT) GLUCOSE,CSF 92(H) 40 - 70 mg/dL 01/09/2024 12:38 AM CDT [facility] Cerebrospinal Fluid CEREBROSPINAL FLUID SPECIMEN / Unknown Non-Blood / Unknown 01/08/2024 11:55 PM CDT 01/08/2024 11:58 PM CDT Santi Elmore MD BODY FLUID [facility] SENDOUT INTERNAL ZIP [phone] [place] [phone] * IR LUMBAR PUNCTURE DIAGNOSTIC (01/08/2024 11:42 PM CDT) Anatomical Region Laterality Modality X-Ray Angiograph y 01/08/2024 11:4 2 PM CDT Impressions 01/13/2024 7:33 AM CDT CONCLUSION: 1. Fluoroscopically-guided lumbar puncture yielding 12 cc of clear cerebrospinal fluid, sent for analysis. Marcial Alcala M.D. Neurointerventional Surgery [place] [facility] Office: Pager: Narrative 01/13/2024 7:33 AM CDT For Patients: As a result of the Cures Act, medical imaging exams and procedure reports are released immediately into your electronic medical record. You may view this report before your referring provider. If you have questions, please contact your health care provider. [facility] NEUROINTERVENTIONAL SURGERY [place] [facility] 01/08/2024 11:42 PM CDT FLUOROSCOPICALLY-GUIDED LUMBAR [...] questions, please contact your health care provider. [facility] NEUROINTERVENTIONAL SURGERY [place] [facility] 01/08/2024 [...] for analysis. Marcial Alcala M.D. Neurointerventional Surgery [place] [facility] Office: Pager: Marcial Alcala MD IR * (ABNORMAL) TROPONIN T (HS) ONE TIME (01/08/2024 10:58 PM CDT) TROPONIN T HS 34(H) 6-10 ng/L ng/L 01/08/2024 11:28 PM CDT [facility] Blood BLOOD SPECIMEN / Unknown Venipuncture / Unknown 01/08/2024 10:58 PM CDT 01/08/2024 11:03 PM CDT [facility] - 01/08/2024 11:28 PM [...] Santi Elmore MD CHEMISTRY Performing Organization Address [facility] Co de Phone Number [facility] SENDOUT INTERNAL ZIP [phone] [place] [address] * PROTIME-INR (01/08/2024 10:58 PM CDT) INR 1.0 <1.3 01/08/2024 11:13 PM CDT [facility] PROTIME 11.1 10.3 - 12.3 sec 01/08/2024 11:13 PM CDT [facility] Blood BLOOD SPECIMEN / Unknown Venipuncture / Unknown 01/08/2024 10:58 PM CDT 01/08/2024 11:03 PM CDT Narrative [facility] - 01/08/2024 11:13 PM CDT ?Therapeutic [...] Santi Elmore MD HEMATOLOGY Performing Organization Address [facility]/ZIP Co de Phone Number [facility] SENDOUT INTERNAL ZIP [phone] [place] [address] * XR MAMMO BILAT SCREEN FFDM (10/04/2016 9:00 AM [employer]) Anatomical Region Laterality Modality BREASTS, Breast Left, Breast Right Bilateral Mammography Narrative 10/04/2016 1:52 PM [employer] BILATERAL DIGITAL SCREENING MAMMOGRAM WITH COMPUTER-AIDED DETECTION [...] for Comparison Bernardino Avelar D.O. Diagnostic Radiologist [email or web address] ?? / Bailey Collins NP MAMMO * (ABNORMAL) LIPID PANEL W REFLEX MEASURED LDL (09/11/2016 9:26 AM [employer]) CHOLESTEROL,TOTAL 159 100 - 199 mg/dL 09/11/2016 10:03 AM [employer] [facility] TRIGLYCERIDES 183(H) <150 mg/dL 09/11/2016 10:03 AM [employer] [facility] HDL CHOLESTEROL 36(L) >40 mg/dL 6 10:03 AM [employer] [facility] NON-HDL CHOLESTEROL 123 <145 mg/dl 09/11/2016 10:03 AM [facility] CHOL/HDL RATIO 4.42 <4.50 09/11/2016 10:03 AM [employer] [facility] LDL CHOLESTEROL 86 <=130 mg/dL 09/11/2016 10:03 AM [employer] [facility] PATIENT STATUS NOT GIVEN 09/11/2016 10:03 AM [facility] Blood BLOOD SPECIMEN / Unknown Venipuncture / Unknown 09/11/2016 9:26 AM [employer] 09/11/2016 9:26 AM [employer] Bailey Collins NP CHEMISTRY [facility] [address] [place] [address], * XR DXA BONE DENSITY 2 SITES (08/18/2015 9:25 AM CDT) Anatomical Region Laterality Modality Spine, HIPS, HIPL, HIPR Other Narrative 08/19/2015 6:36 PM CDT Please see scanned document for results of this study. Bailey Collins SOFTWARE ENG[employer] DEXA from Last 3 Months or Most [...] Comments Code Status Discussion: Discussed Care Teams Supply Officer Relationship Specialty Start Date End Date Katerine Bashir MD [address] [place] [address] PCP - General Family Practice 12/27/20 Easton Mccormick MD [address] [place] [address] [address] [place] [address] Cardiovascular Disease 09/26/16
== END 2024-03-11 10:45 | disposition home or self-care (01) ==
LOC: NFLDREF 10:45
PROVIDERS: PCP Family Medicine; Visit Provider Family Medicine
DX: E87.6 Hypokalemia (principal)
CPT/HCPCS: 80048

== ENCOUNTER 2024-03-19 16:58 | Outpatient (CLI) | payer MEDICARE, SELFPAY ==
--- OUTSIDE RECORDS SUMMARY | 2024-03-19 17:00 | XMS_ITS ---
Author Organization [facility] Address [address] [place] [address] Care Team Providers Care Iron Plastic Bullet Maker Name Role Phone Unavailable Unavailable Unavailable Surgery Details Not on file Complications Check Surgery Details section. Procedure Estimated Blood Loss Check Surgery Details section. Procedure Findings Check Surgery Details section. Procedure Specimens Taken Check Surgery Details section.
--- OUTSIDE RECORDS SUMMARY | 2024-03-19 17:00 | XMS_ITS | Referral Summary ---
Author Organization [facility] Address [address] [place] [address] Care Team Providers Care Human Resources Representative Name Role Phone Elsewhere, Pcp Primary Care Provider Unavailabl e Source Comments Patient records contain information from all sites at [facility]. For routine questions regarding patient records, call [phone] during business hours, M-F 8:00 AM - 5:00 PM Central Time. Record requests for emergency care only can be directed to [phone] at any time.[facility] Encounters Date Type Department Care Team Description 03/16/2024 Orders Only Department of Ophthalmology in [place], [place] [address] [place] [address] Shahnaz Amato, C.O.A. Necrosis Retinal Acute Right (Primary Dx) 03/16/2024 Orders Only Department of Ophthalmology in [place], [place] [address] [place] [address] Jean Claude Newsome, C.O.A. Panuveitis Right (Primary Dx); Necrosis Retinal Acute Right 03/14/2024 Orders Only Department of Ophthalmology in [place], [place] [address] [place] [address] Raffi Boyd M.D. 03/13/2024 2:00 PM CDT Procedure visit Department of Ophthalmology in [place], [place] [address] [place] [address] Prakash Graham M.D. Primary Hypotony Right Eye (Primary Dx); Panuveitis Right; Necrosis Retinal Acute Right 03/13/2024 1:00 PM CDT Office Visit Department of Ophthalmology in [place], [place] [address] [place] [phone] Prakash Graham M.D. Panuveitis Right (Primary Dx); Necrosis Retinal Acute Right 03/13/2024 Orders Only Department of Ophthalmology in [address] [phone] Jean Claude Newsome C.O.A. Necrosis Retinal Acute Right (Primary Dx) 03/13/2024 12:10 AM CDT Ancillary Procedure Department of Ophthalmology 03/13/2024 12:05 AM CDT Ancillary Procedure Department of Ophthalmology 03/13/2024 Ancillary Procedure Department of Ophthalmology 03/13/2024 12:00 PM CDT Ancillary Procedure Department of Ophthalmology in [place], [place] [address] [place] [phone] Kenya Garza M.D. Panuveitis Right; Necrosis Retinal Acute Right 03/13/2024 11:30 AM CDT Office Visit Department of Ophthalmology in [address] [phone] Kenya Garza M.D. Necrosis Retinal Acute Right (Primary Dx); Panuveitis Right 03/13/2024 8:00 AM CDT Ancillary Procedure Department of Ophthalmology in [address] [phone] Kenya Garza M.D. Panuveitis Right; Necrosis Retinal Acute Right 03/11/2024 Clinical Communication Department of Ophthalmology in [address] [phone] Kenya Garza M.D. 03/10/2024 Clinical Communication Department of Ophthalmology in [place], [place] [address] [place] [phone] Kenya Garza M.D. 02/25/2024 4:30 PM CDT Telemedicine Department of Neurology in [address] [address] Piter Baez M.D. Posterior Reversible Encephalopathy Syndrome (Primary Dx) 02/20/2024 12:10 AM CDT Ancillary Procedure Department of Ophthalmology 02/20/2024 12:05 AM CDT Ancillary Procedure Department of Ophthalmology 02/20/2024 Ancillary Procedure Department of Ophthalmology 02/20/2024 3:05 PM CDT - 02/20/2024 11:59 PM CDT Hospital Encounter Department of Radiology, [facility] in [place], [place] [address] [place] [phone] Piter Baez M.D. Posterior Reversible Encephalopathy Syndrome Discharge Disposition: Home or Self Care 02/20/2024 1:00 PM CDT Comprehensive Visit Department of Neurology in [address] [phone] Piter Baez M.D. Posterior Reversible Encephalopathy Syndrome 02/20/2024 11:15 AM CDT Office Visit Department of Ophthalmology in [address] [phone] Kenya Garza M.D. Panuveitis Right (Primary Dx); Necrosis Retinal Acute Right 02/20/2024 10:00 AM CDT Ancillary Procedure Department of Ophthalmology in [address] [phone] Kenya Garza M.D. Panuveitis Right; Necrosis Retinal Acute Right 02/20/2024 9:50 AM CDT Ancillary Procedure Department of Ophthalmology in [address] [phone] Kenya Garza M.D. Panuveitis Right; Necrosis Retinal Acute Right 01/31/2024 Clinical Communication Department of Neurology in [address] [phone] Piter Baez M.D. Pre-visit Testing Orders 01/23/2024 12:00 PM CDT Office Visit Department of Ophthalmology in [address] [phone] Kenya Garza M.D. Panuveitis Right (Primary Dx); Necrosis Retinal Acute Right 01/20/[address] [address] Katerine Bashir M.D. Posterior Reversible Encephalopathy Syndrome (Primary Dx) 01/10/2024 Clinical Communication Department of Ophthalmology in [place], [place] [address] [place] [address] Kenya Garza M.D. Outside hospitalization and medications 01/01/2024 Ancillary Procedure Department of Ophthalmology 01/01/2024 12:30 PM GEODESIST Ancillary Procedure Department of Ophthalmology in [place], [place] [address] [place] [address] Kenya Garza M.D. Panuveitis Right 01/01/2024 12:45 PM GEODESIST Office Visit Department of Ophthalmology in [place], [place] [address] [place] [address] Kenya Garza M.D. Necrosis Retinal Acute Right (Primary Dx); Panuveitis Right from Last 3 Months Allergies Active Allergy Reactions Criticality Noted Date Comments Aller Xt-Burton Pollen-Western Blisters,Itching,Rash High 06/21/2020 Medications Medication Sig Dispensed [...] Inhale 1 puff once daily. 1 each 0 Active difluprednate (DUREZOL) 0.05 % ophthalmic [...] with food 60 tablet 1 4 Active predniSONE (DELTASONE) 10 mg tablet Take 4 tablets (40 mg total) by mouth daily for 7 days, THEN 3 tablets (30 mg total) daily for 7 days, THEN 2 tablets (20 mg total) daily for 7 days, THEN 1 tablet (10 mg total) daily for 7 days. 70 tablet 4 04/11/20 24 Active prednisoLONE acetate (PRED FORTE) 1 % ophthalmic suspension Administer 1 drop into the right eye every hour while awake. 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 09/11/2023 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 03/05/2019 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 02/17/2019 Hypertension 02/17/2019 Hyperlipidemia 02/17/2019 Myocardial Infarction Old 11/19/2015 Presence Of Aortocoronary Bypass Graft 1 Obesity Body Mass Index 30-39.9 Adult 04/10/2010 Resolved Problems Problem Noted Date Diagnosed Date Resolved Date Diabetes Mellitus Type 2 02/17/201911/2018 Social History Tobacco Use Types Packs/Day Years Used Date Smoking Tobacco: Light Smoker Cigarettes 0.5 44.1 Started: 02/26/1980 Smokeless Tobacco: Never Comments:On again off again Alcohol Use Standard Drinks/Week Comments Yes 0 (1 standard drink = 0.6 oz pur e alcohol) [facility] Utilities Answer Date Recorded In the [...] Never 06/27/2020 How often do you attend catholic or religion serv ices? Never 06/27/2020 Do you belong to any clubs o r organizations such as catholic groups, unions, fraternal or athletic groups, [...] medical care, and heating? Somewhat hard 06/27/2020 [facility] [place] of Occupat ional Health - Occupational Stress [...] your living situation today? I have a [facility] place to live 11/05/2023 Education [...] Upcoming Encounters Date Type Department Care Team (Latest Contact Info) Description 04/14/2024 11:00 AM CDT Comprehensive Visit Preoperative Evaluation Center in [place], [place] [address] [place] [phone] Prakash Graham M.D. [address] [place] [phone] 04/14/2024 1:30 PM CDT Ancillary Procedure Department of Ophthalmology in [place], [place] [address] [place] [phone] Kenya Garza M.D. [address] [place] [phone] 04/14/2024 2:10 PM CDT Ancillary Procedure Department of Ophthalmology in [place], [place] [address] [place] [phone] Prakash Graham M.D. [address] [place] [phone] 04/14/2024 2:30 PM CDT Office Visit Department of Ophthalmology in [address] [phone] Prakash Graham M.D. [address] [place] [phone] 04/16/2024 12:30 PM CDT Ancillary Procedure Department of Ophthalmology in [address] [phone] Prakash Graham M.D. [address] [place] [phone] 04/16/2024 1:00 PM CDT Ancillary Procedure Department of Ophthalmology in [address] [phone] Kenya Garza M.D. [address] [place] [phone] 04/16/2024 2:00 PM CDT Ancillary Procedure Department of Ophthalmology in [place], [place] [address] [place] [phone] Kenya Garza M.D. [address] [place] [phone] 04/16/2024 2:30 PM CDT Office Visit Department of Ophthalmology in [place], [place] [address] [place] [phone] Kenya Garza M.D. [address] [place] [phone] 04/27/2024 10:02 AM CDT Hospital Encounter [facility] OR [facility] [place] [phone] Prakash Graham M.D. [address] [place] [phone] 04/27/2024 10:02 AM CDT - 04/27/2024 11:45 AM CDT Surgery [facility] OR [address] [place] [phone] Prakash Graham M.D. [address] [place] [phone] VITRECTOMY - PARS PLANA 25 GAUGE / MEMBRANE PEEL / SILICONE OIL AND ALL ASSOCIATED PROCEDURES RIGHT EYE 04/28/2024 8:00 AM CDT Office Visit Department of Ophthalmology in [place], [place] [address] [place] [phone] Prakash Graham M.D. [address] [place] [phone] 05/05/2024 1:15 PM CDT Ancillary Procedure Department of Ophthalmology in [place], [place] [address] [place] [phone] Prakash Graham M.D. [address] [place] [phone] 05/05/2024 1:45 PM CDT Office Visit Department of Ophthalmology in [place], [place] [address] [place] [phone] Prakash Graham M.D. [address] [place] [phone] 06/02/2024 8:15 AM CDT Ancillary Procedure Department of Ophthalmology in [place], [place] [address] [place] [phone] Prakash Graham M.D. [address] [place] [phone] 06/02/2024 8:45 AM CDT Ancillary Procedure Department of Ophthalmology in [place], [place] [address] [place] [phone] Prakash Graham M.D. [address] [place] [phone] 06/02/2024 9:00 AM CDT Office Visit Department of Ophthalmology in [place], [place] [address] [place] [phone] Prakash Graham M.D. [address] [place] [phone] Scheduled Procedures Name Priority Associated Diagnoses Date/Ti me VITRECTOMY - PARS PLANA 25 GAUGE Panuveitis Right Necrosis Retinal Acute Right 04/27/2024 10:02 AM CDT Procedures Procedure Name Priority Date/Time Associated Diagnosis Comments CYCLOPHOTOCOAGULATI ON, TRANSSCLERAL - OD - RIGHT EYE Routine 03/13/2024 3:49 PM CDT Primary Hypotony Right Eye ULTRASOUND BIOMICROSCOPY - OD - RIGHT Routine 03/13/2024 9:45 AM CDT Panuveitis Right Necrosis Retinal Acute Right B SCAN - OD - RIGHT EYE Routine 03/13/2024 9:45 AM CDT Panuveitis Right Necrosis Retinal Acute Right OPHTHALMOLOGY IMAGE EXAM Routine 03/13/2024 12:10 AM CDT OPHTHALMOLOGY IMAGE EXAM Routine 03/13/2024 12:05 AM CDT MR BRAIN WITHOUT AND WITH IV CONTRAST [...] - BOTH EYES Routine 01/01/2024 12:34 PM GEODESIST Panuveitis Right OPHTHALMOLOGY IMAGE EXAM Routine 01/01/2024 12:[address] CHEST WITH IV CONTRAST RAD - Routine (most inpatients and all outpatients) 03/31/2020 8:50 AM CDT Nodule Pulmonary from Last 3 Months or Most Recently Relevant to Health Maintenance Results * Cyclophotocoagulation, Transscleral - OD - Right Eye (03/13/2024 3:49 PM CDT) [facility] - 03/13/2024 3:49 PM CDT Time Out Confirmed correct patient, procedure, site, and patient consented. Procedure Topical anesthesia was used. Post-op The patient tolerated the procedure well. There were no complications. The patient received written and verbal post procedure care education. Notes 6 spots of cryocyclopexy applied from 3 - 9 o'clock right eye Prakash Graham M.D. [facility] PROCED URES Performing Organization Address [facility] Co de Phone Number [facility] * Ultrasound Biomicroscopy (UBM) - OD - Right Eye (03/13/2024 9:45 AM CDT) Narrative OPHTHALMGY NON-IMAGING ORDERS - 03/13/2024 10:21 AM CDT 03/13/2024 B-Scan Right Eye: dense vitreous opacities, probable posterior vitreous detachment, vitreous membranes possibly extending to disc, detachments vs opacities - cannot rule out choroidal detachment, thickened fundus appearance. UBM Right Eye: minimal opacities in anterior chamber, ciliary body detachment noted, possible ciliochoroidal effusion. ZK Kenya Garza M.D. [facility] ULTRASOUND Performing Organization Address [facility] Co de Phone Number [facility] * B-Scan Ultrasound - OD - Right Eye (03/13/2024 9:45 AM CDT) Narrative [facility] - 03/13/2024 10:21 AM CDT 03/13/2024 B-Scan Right Eye: dense vitreous opacities, probable posterior vitreous detachment, vitreous membranes possibly extending to disc, detachments vs opacities - cannot rule out choroidal detachment, thickened fundus appearance. UBM Right Eye: minimal opacities in anterior chamber, ciliary body detachment noted, possible ciliochoroidal effusion. BriannaK Kenya Garza M.D. OPHTH ULTRASOUND Performing Organization Address City/[facility] Co de Phone Number OPHTHALM[facility] NON-IMAGING ORDERS * Eyes US-Eye [id number] Image Exam (03/13/2024 12:10 AM CDT) Only the most recent of6 resultswithin the time period is included. Narrative IIMS - 03/13/2024 9:49 AM CDT This order has been created and auto-finalized to support the import of images acquired without order. The clinical documentation to support these images can be found on the encounter that produced images. Provider Not In System IMG NON RAD IMAGI NG PROCEDURES Performing Organization Address [facility] Co de Phone Number IIMS NA * MR Brain without and with IV [...] findings. Nothing for PRES. Piter Baez M.D. IM MRI PROCEDURES * Optical Coherence Tomography - [...] OPHTH TOMOGRAPHY Performing Organization Address [facility] Co de Phone Number OPHTHALMOLOGY [...] Garza M.D. OPHTH ULTRASOUND Performing Organization Address [facility]/ZIP Co de Phone Number OPHTHALMOLGY NON-IMAGING ORDERS * MR HEAD BRAIN WWO-Outside MR Neuro [...] IMG MRI PROCEDURE S Performing Organization Address [facility]/ZIP Co de Phone Number IINV NA * Optical Coherence Tomography - Macula/Retina - OU - Both Eyes (01/01/2024 12:34 PM GEODESIST) CMT L Microns 247 um OPH THALMOLOGY IMAGING EXAM Narrative OPHTHALMOLOGY IMAGING EXAM - 01/01/2024 12:45 PM GEODESIST Right Eye Reliability was good. OCT device [...] OPHTH TOMOGRAPHY Performing Organization Address [facility]/State/ZIP Co de Phone Number OPHTHALMOLOGY IMAGING EXAM [...] Recently Relevant to Health Maintenance Care Teams Human Resources Representative Relationship Specialty Start Date End Date Elsewhere, Pcp PCP - General Internal Medicine 05/29/19
--- OUTSIDE RECORDS SUMMARY | 2024-03-19 17:00 | XMS_ITS | Clinical Summary ---
Author Organization [facility] Address [address] [place] [address] Care Team Providers Care Signing Agent Name Role Phone Elsewhere, Pcp Primary Care Provider Unavailabl e Source Comments Patient records contain information from all sites at [facility]. For routine questions regarding patient records, call [phone] during business hours, M-F 8:00 AM - 5:00 PM Central Time. Record requests for emergency care only can be directed to [phone] at any time.[facility] Allergies Active Allergy Reactions Criticality Noted Date Comments Aller Xt-Tacoma Pollen-Robert Lee Blisters,Itching,Rash High 06/21/2020 Medications Medication Sig Dispensed [...] 03/16/2024 Orders Only Department of Ophthalmology in [place], [place] [address] [place] [phone] Shahnaz Amato C.O.AWhitney Necrosis Retinal Acute Right (Primary Dx) 03/16/2024 Orders Only Department of Ophthalmology in [place], [place] [address] [place] [address] [phone] Jean Claude Newsome C.O.AWhitney Panuveitis Right (Primary Dx); Necrosis Retinal Acute Right 03/14/2024 Orders Only Department of Ophthalmology in [place], [place] [address] [place] [address] [phone] Raffi Boyd M.D. 03/13/2024 2:00 PM CDT Procedure visit Department of Ophthalmology in [place], [place] [address] [place] [address] [phone] Prakash Graham M.D. Primary Hypotony Right Eye (Primary Dx); Panuveitis Right; Necrosis Retinal Acute Right 03/13/2024 1:00 PM CDT Office Visit Department of Ophthalmology in [place], [place] [address] [place] [phone] Prakash Graham M.D. Panuveitis Right (Primary Dx); Necrosis Retinal Acute Right 03/13/2024 12:00 PM CDT Ancillary Procedure Department of Ophthalmology in [place], [place] [address] [place] [phone] Kenya Garza M.D. Panuveitis Right; Necrosis Retinal Acute Right 03/13/2024 11:30 AM CDT Office Visit Department of Ophthalmology in [place], [place] [address] [place] [phone] Kenya Garza M.D. Necrosis Retinal Acute Right (Primary Dx); Panuveitis Right 03/13/2024 8:00 AM CDT Ancillary Procedure Department of Ophthalmology in [place], [place] [address] [place] [phone] Kenya Garza M.D. Panuveitis Right; Necrosis Retinal Acute Right 03/13/2024 12:10 AM CDT Ancillary Procedure Department of Ophthalmology 03/13/2024 12:05 AM CDT Ancillary Procedure Department of Ophthalmology 03/13/2024 Orders Only Department of Ophthalmology in [address] [phone] Jean Claude Newsome C.O.A. Necrosis Retinal Acute Right (Primary Dx) 03/13/2024 Ancillary Procedure Department of Ophthalmology 03/11/2024 Clinical Communication Department of Ophthalmology in [address] [phone] Kenya Garza M.D. 03/10/2024 Clinical Communication Department of Ophthalmology in [address] [phone] Kenya Garza M.D. 02/25/2024 4:30 PM CDT Telemedicine Department of Neurology in [address] [phone] Piter Baez M.D. Posterior Reversible Encephalopathy Syndrome (Primary Dx) 02/20/2024 3:05 PM CDT - 02/20/2024 11:59 PM CDT Hospital Encounter Department of Radiology, [facility] in [address] [phone] Piter Baez M.D. Posterior Reversible Encephalopathy Syndrome Discharge Disposition: Home or Self Care 02/20/2024 1:00 PM CDT Comprehensive Visit Department of Neurology in [address] [phone] Piter Baez M.D. Posterior Reversible Encephalopathy Syndrome 02/20/2024 11:15 AM CDT Office Visit Department of Ophthalmology in [address] [phone] Kenya Garza M.D. Panuveitis Right (Primary Dx); Necrosis Retinal Acute Right 02/20/2024 10:00 AM CDT Ancillary Procedure Department of Ophthalmology in [address] [phone] Kenya Garza M.D. Panuveitis Right; Necrosis Retinal Acute Right 02/20/2024 9:50 AM CDT Ancillary Procedure Department of Ophthalmology in [place], [place] [address] [place] [phone] Kenya Garza M.D. Panuveitis Right; Necrosis Retinal Acute Right 02/20/2024 12:10 AM CDT Ancillary Procedure Department of Ophthalmology 02/20/2024 12:05 AM CDT Ancillary Procedure Department of Ophthalmology 02/20/2024 Ancillary Procedure Department of Ophthalmology 01/31/2024 Clinical Communication Department of Neurology in [place], [place] [address] [place] [phone] Piter Baez M.D. Pre-visit Testing Orders 01/23/2024 12:00 PM CDT Office Visit Department of Ophthalmology in [place], [place] [address] [place] [phone] Kenya Garza M.D. Panuveitis Right (Primary Dx); Necrosis Retinal Acute Right 01/20/2024 [facility] [address] [place] [address] Katerine Bashir M.D. Posterior Reversible Encephalopathy Syndrome (Primary Dx) 01/10/2024 Clinical Communication Department of Ophthalmology in [place], [place] [address] [place] [phone] Kenya Garza M.D. Outside hospitalization and medications 01/01/2024 12:45 PM CRAYON MOLDING MACHINE OPERATOR Office Visit Department of Ophthalmology in [place], [place] [address] [place] [phone] Kenya Garza M.D. Necrosis Retinal Acute Right (Primary Dx); Panuveitis Right 01/01/2024 12:30 PM CRAYON MOLDING MACHINE OPERATOR Ancillary Procedure Department of Ophthalmology in [place], [place] [address] [place] [phone] Kenya Garza M.D. Panuveitis Right 01/01/2024 Ancillary Procedure Department of Ophthalmology from Last 3 Months Family History Medical History Relation Name Comments Lymphoma Brother Kannan Podhora 2018 Prostate cancer Father Podhora 2001 Stroke Father Podhora Coronary artery disease Mother Afia Podhora Not sure of dates no bypass Diabetes Mother Afia Thibodeaux Heart attack Mother Afia Thibodeaux Relation Name Status Comments Brother Kannan Thibodeaux Father Morelia Mother Afia Thibodeaux Social History Tobacco Use Types Packs/Day Years Used Date Smoking Tobacco: Light Smoker Cigarettes 0.5 44.1 Started: 02/26/1980 Smokeless Tobacco: Never Comments:On again off again Alcohol Use Standard Drinks/Week Comments Yes 0 (1 standard drink = 0.6 oz pur e alcohol) [facility] Utilities Answer Date Recorded In the past [...] Never 06/27/2020 How often do you attend uatsdin or jehovah's witness serv ices? Never 06/27/2020 Do you belong to any clubs o r organizations such as uatsdin groups, unions, fraternal or athletic groups, or [...] medical care, and heating? Somewhat hard 06/27/2020 [facility] - Occupational Stress [...] CDT Comprehensive Visit Preoperative Evaluation Center in [place], [place] [address] [place] [phone] Prakash Graham M.D. [address] [place] [phone] 04/14/2024 1:30 PM CDT Ancillary Procedure Department of Ophthalmology in [address] [phone] Kenya Garza M.D. [address] [place] [phone] 04/14/2024 2:10 PM CDT Ancillary Procedure Department of Ophthalmology in [address] [phone] Prakash Graham M.D. [address] [place] [phone] 04/14/2024 2:30 PM CDT Office Visit Department of Ophthalmology in [address] [phone] Prakash Graham M.D. [address] [place] [phone] 04/16/2024 12:30 PM CDT Ancillary Procedure Department of Ophthalmology in [address] [phone] Prakash Graham M.D. [address] [place] [phone] 04/16/2024 1:00 PM CDT Ancillary Procedure Department of Ophthalmology in [place], [place] [address] [place] [phone] Kenya Garza M.D. [address] [place] [phone] 04/16/2024 2:00 PM CDT Ancillary Procedure Department of Ophthalmology in [place], [place] [address] [place] [phone] Kenya Garza M.D. [address] [place] [phone] 04/16/2024 2:30 PM CDT Office Visit Department of Ophthalmology in [place], [place] [address] [place] [phone] Kenya Garza M.D. [address] [place] [phone] 04/27/2024 10:02 AM CDT Hospital Encounter [facility] [address] [place] [phone] Prakash Graham M.D. [address] [place] [phone] 04/27/2024 10:02 AM CDT - 04/27/2024 11:45 AM CDT Surgery [facility] [address] [place] [phone] Prakash Graham M.D. [address] [place] [phone] VITRECTOMY - PARS PLANA 25 GAUGE / MEMBRANE PEEL / SILICONE OIL AND ALL ASSOCIATED PROCEDURES RIGHT EYE 04/28/2024 8:00 AM CDT Office Visit Department of Ophthalmology in [place], [place] [address] [place] [phone] Prakash Graham M.D. [address] [place] [phone] 05/05/2024 1:15 PM CDT Ancillary Procedure Department of Ophthalmology in [place], [place] [address] [place] [phone] Prakash Graham M.D. [address] [place] [phone] 05/05/2024 1:45 PM CDT Office Visit Department of Ophthalmology in [place], [place] [address] [place] [phone] Prakash Graham M.D. [address] [place] [phone] 06/02/2024 8:15 AM CDT Ancillary Procedure Department of Ophthalmology in [place], [place] [address] [place] [phone] Prakash Graham M.D. [address] [place] [phone] 06/02/2024 8:45 AM CDT Ancillary Procedure Department of Ophthalmology in [address] [phone] Prakash Graham M.D. [address] [place] [phone] 06/02/2024 9:00 AM CDT Office Visit Department of Ophthalmology in [address] [phone] Prakash Graham M.D. [address] [place] [phone] Scheduled Procedures Name Priority Associated Diagnoses Date/Ti me VITRECTOMY - PARS PLANA 25 GAUGE Panuveitis Right Necrosis Retinal Acute Right 04/27/2024 10:02 AM CDT Health Maintenance Due Date Last Done Comments Bone Density Scan (Osteoporo sis Screen) 1957 CT Colonography 1957 Colonoscopy 1957 FIT 1957 Hepatitis C Screening 1957 Lipid (Cholesterol) Screening 1957 Mammogram 1957 Office Visit for Blood Press ure Check / Re-check 1957 Tobacco Cessation counseling 1957 Lung Cancer Screening 03/31/2021 03/31/2020 COVID-19 Vaccine (2022-11 4 season) 2023 07/18/2021, 02/14/2021, 01/24/2021 Depression [...] 02/23/2022, 07/04/2021 Pneumococcal vaccine (65+ years) Completed 01/24/20 23, 06/24/2018 Influenza Vaccine Completed 07/23/2023, , 08/14/2019, [...] - BOTH EYES Routine 01/01/2024 12:34 PM CRAYON MOLDING MACHINE OPERATOR Panuveitis Right OPHTHALMOLOGY IMAGE EXAM Routine 01/01/2024 12:00 AM CRAYON MOLDING MACHINE OPERATOR CT CHEST WITH IV CONTRAST RAD - Routine (most inpatients and all outpatients) 03/31/2020 8:50 AM CDT Nodule Pulmonary from Last 3 Months or Most Recently Relevant to Health Maintenance Results * Cyclophotocoagulation, Transscleral - OD - Right Eye (03/13/2024 3:49 PM CDT) Narrative OPHTHALMOL NON-IMAGING ORDERS - 03/13/2024 3:49 PM CDT Time Out Confirmed correct patient, procedure, site, and patient consented. Procedure Topical anesthesia was used. Post-op The patient tolerated the procedure well. There were no complications. The patient received written and verbal post procedure care education. Notes 6 spots of cryocyclopexy applied from 3 - 9 o'clock right eye Prakash Graham M.D. [facility] PROCED URES Performing Organization Address [facility] Co de Phone Number [facility] NON[facility]AG[facility]DERS * Ultrasound Biomicroscopy (UBM) - OD - Right Eye (03/13/2024 9:45 AM CDT) Narrative OPHTHALMOLGY NON-IMAGING ORDERS - 03/13/2024 10:21 AM CDT 03/13/2024 B-Scan Right Eye: dense vitreous opacities, probable posterior vitreous detachment, vitreous membranes possibly extending to disc, detachments vs opacities - cannot rule out choroidal detachment, thickened fundus appearance. UBM Right Eye: minimal opacities in anterior chamber, ciliary body detachment noted, possible ciliochoroidal effusion. ZK Kenya Garza M.D. [facility] ULTRASOUND Performing Organization Address [facility] Co de Phone Number [facility] NON-IMAGING ORDERS * B-Scan Ultrasound - OD - Right Eye (03/13/2024 9:45 AM CDT) Narrative OPHTHALMOLGY NON-IMAGING ORDERS - 03/13/2024 10:21 AM CDT 03/13/2024 B-Scan Right Eye: dense vitreous opacities, probable posterior vitreous detachment, vitreous membranes possibly extending to disc, detachments vs opacities - cannot rule out choroidal detachment, thickened fundus appearance. UBM Right Eye: minimal opacities in anterior chamber, ciliary body detachment noted, possible ciliochoroidal effusion. BriannaK Kenya Garza M.D. OPHTH ULTRASOUND Performing Organization Address [facility] Co de Phone Number OPHTHALMOLGY NON-IMAGING ORDERS * Eyes US-Eye [id number] Image Exam (03/13/2024 12:10 AM CDT) Only [...] RAD IMAGI NG PROCEDURES Performing Organization Address [facility] Co de Phone Number IIMS [...] Garza M.D. OPHTH ULTRASOUND Performing Organization Address [facility] Co de Phone Number OPHTHALMOLGY [...] IMG MRI PROCEDURE S Performing Organization Address [facility] de Phone Number IIWI NA * Optical Coherence Tomography - Macula/Retina - OU - Both Eyes (01/01/2024 12:34 PM CRAYON MOLDING MACHINE OPERATOR) CMT L Microns 247 um OPH THALMOLOGY IMAGING EXAM Narrative OPHTHALMOLOGY IMAGING EXAM - 01/01/2024 12:45 PM CRAYON MOLDING MACHINE OPERATOR Right Eye Reliability was good. OCT [...] Garza M.D. OPHTH TOMOGRAPHY Performing Organization Address [facility] Co de Phone Number OPHTHALMOLOGY [...] Recently Relevant to Health Maintenance Care Teams Signing Agent Relationship Specialty Start Date End Date Elsewhere, Pcp PCP - General Internal Medicine 05/29/19
--- OUTSIDE RECORDS SUMMARY | 2024-03-19 17:01 | XMS_ITS | Encounter Summary ---
Author Organization [facility] Address [address] [place] [address] Care Team Providers Care Turn Machine Operator Name Role Phone Elsewhere, Pcp Primary Care Provider Unavailabl e Encounter Details Date Type Department Care Team (Latest Contact Info) Description 03/13/2024 8:00 AM CDT Ancillary Procedure Department of Ophthalmology in [place], [place] [address] [place] [address] Kenya Garza M.D. [address] [place] [address] Panuveitis Right; Necrosis Retinal Acute Right Social History Tobacco Use Types Packs/Day Years Used Date Smoking Tobacco: Light Smoker Cigarettes 0.5 44.1 Started: 02/26/1980 Smokeless Tobacco: Never Comments:On again off again Alcohol Use Standard Drinks/Week Comments Yes 0 (1 standard drink = 0.6 oz pur e alcohol) [facility] Utilities Answer Date Recorded In the past 12 months has [employer], gas, oil, or water [employer] threatened to shut off services in your home? No 11/05/2023 Social Connection and Isolation Panel [NHANES] A nswer Date Recorded In a typical week, how many times do you talk on the phone with family, friends, or neighbors? Once a week 06/27/2020 How often do you get together with friends or re latives? Never 06/27/2020 How often do you attend quaker or sikhism serv ices? Never 06/27/2020 Do you belong to any clubs o r organizations such as quaker groups, unions, fraternal or athletic groups, or [...] living situation today? I have a [facility] place to live 11/05/2023 [...] CDT Comprehensive Visit Preoperative Evaluation Center in [place], [place] [address] [place] [phone] Prakash Graham M.D. [address] [place] [phone] 04/14/2024 1:30 PM CDT Ancillary Procedure Department of Ophthalmology in [place], [place] [address] [place] [phone] Kenya Garza M.D. [address] [place] [phone] 04/14/2024 2:10 PM CDT Ancillary Procedure Department of Ophthalmology in [place], [place] [address] [place] [phone] Prakash Graham M.D. [address] [place] [phone] 04/14/2024 2:30 PM CDT Office Visit Department of Ophthalmology in [place], [place] [address] [place] [phone] Prakash Graham M.D. [address] [place] [phone] 04/16/2024 12:30 PM CDT Ancillary Procedure Department of Ophthalmology in [place], [place] [address] [place] [phone] Prakash Graham M.D. [address] [place] [phone] 04/16/2024 1:00 PM CDT Ancillary Procedure Department of Ophthalmology in [place], [place] [address] [place] [phone] Kenya Garza M.D. [address] [place] [phone] 04/16/2024 2:00 PM CDT Ancillary Procedure Department of Ophthalmology in [place], [place] [address] [place] [phone] Kenya Garza M.D. [address] [place] [phone] 04/16/2024 2:30 PM CDT Office Visit Department of Ophthalmology in [place], [place] [address] [place] [phone] Kenya Garza M.D. [address] [place] [phone] 04/27/2024 10:02 AM CDT Hospital Encounter [facility] [address] [place] [phone] Prakash Graham M.D. [address] [place] [phone] 04/27/2024 10:02 AM CDT - 04/27/2024 11:45 AM CDT Surgery T [facility] [address] [place] [phone] Prakash Graham M.D. [address] [place] [phone] VITRECTOMY - PARS PLANA 25 GAUGE / MEMBRANE PEEL / SILICONE OIL AND ALL ASSOCIATED PROCEDURES RIGHT EYE 04/28/2024 8:00 AM CDT Office Visit Department of Ophthalmology in [place], [place] [address] [place] [phone] Prakash Graham M.D. [address] [place] [phone] 05/05/2024 1:15 PM CDT Ancillary Procedure Department of Ophthalmology in [place], [place] [address] [place] [phone] Prakash Graham M.D. [address] [place] [phone] 05/05/2024 1:45 PM CDT Office Visit Department of Ophthalmology in [place], [place] [address] [place] [phone] Prakash Graham M.D. [address] [place] [phone] 06/02/2024 8:15 AM CDT Ancillary Procedure Department of Ophthalmology in [place], [place] [address] [place] [phone] Prakash Graham M.D. [address] [place] [phone] 06/02/2024 8:45 AM CDT Ancillary Procedure Department of Ophthalmology in [place], [place] [address] [place] [phone] Prakash Graham M.D. [address] [place] [phone] 06/02/2024 9:00 AM CDT Office Visit Department of Ophthalmology in [place], [place] [address] [place] [address] Prakash Graham M.D. [address] [place] [address] Scheduled Procedures Name Priority Associated Diagnoses Date/Ti me VITRECTOMY - PARS PLANA 25 GAUGE Panuveitis Right Necrosis Retinal Acute Right 04/27/2024 10:02 AM CDT documented as of this encounter Procedures Procedure Name Priority Date/Time Associated Diagnosis Comments ULTRASOUND BIOMICROSCOPY - OD - RIGHT Routine 03/13/2024 9:45 AM CDT Panuveitis Right Necrosis Retinal Acute Right documented in this encounter Results * Ultrasound Biomicroscopy (UBM) - OD - [...] possible ciliochoroidal effusion. ZK Kenya Garza M.D. OPHTH ULTRASOUND OPHTHALMOLGY NON-IMAGING ORDERS documented in this encounter Visit Diagnoses Diagnosis Panuveitis Right Necrosis Retinal Acute Right Panuveitis Right Necrosis Retinal Acute Right Panuveitis Right Necrosis Retinal Acute Right documented in this encounter Care Teams Turn Machine Operator Relationship Specialty Start Date End Date Elsewhere, Pcp PCP - General Internal Medicine 05/29/19 documented as of this encounter
--- OUTSIDE RECORDS SUMMARY | 2024-03-19 17:01 | XMS_ITS | Encounter Summary ---
Author Organization [facility] Address [address] [place] [address] Care Team Providers Care Boiler Attendant Name Role Phone Elsewhere, Pcp Primary Care Provider Unavailabl e Encounter Details Date Type Department Care Team (Late st Contact Info) Description 03/13/2024 12:05 AM CDT Ancillary Procedure Department of Ophthalmology Social History Tobacco Use Types Packs/Day Years Used Date Smoking Tobacco: Light Smoker Cigarettes 0.5 44.1 Started: 02/26/1980 Smokeless Tobacco: Never Comments:On again off again Alcohol Use Standard Drinks/Week Comments Yes 0 (1 standard drink = 0.6 oz pur e alcohol) [facility] Utilities Answer Date Recorded In the past 12 months has [employer] electric, gas, oil, or water company [...] How often do you attend judaism or adventist serv ices? Never 06/27/2020 Do you belong [...] medical care, and heating? Somewhat hard 06/27/2020 [facility] - Occupational Stress Questionnaire Answer Date [...] your living situation today? I have a [facility] place to live 11/05/2023 Education Answer [...] CDT Comprehensive Visit Pre[facility] Evaluation Center in [place], [place] [address] [place] [phone] Prakash Graham M.D. [address] [place] [phone] 04/14/2024 1:30 PM CDT Ancillary Procedure Department of Ophthalmology in [address] [phone] Kenya Garza M.D. [address] [place] [phone] 04/14/2024 2:10 PM CDT Ancillary Procedure Department of Ophthalmology in [address] [phone] Prakash Graham M.D. [address] [place] [phone] 04/14/2024 2:30 PM CDT Office Visit Department of Ophthalmology in [address] [phone] Prakash Graham M.D. [address] [place] [phone] 04/16/2024 12:30 PM CDT Ancillary Procedure Department of Ophthalmology in [address] [address] Prakash Graham M.D. [address] [place] [phone] 04/16/2024 1:00 PM CDT Ancillary Procedure Department of Ophthalmology in [place], [place] [address] [place] [phone] Kenya Garza M.D. [address] [place] [phone] 04/16/2024 2:00 PM CDT Ancillary Procedure Department of Ophthalmology in [place], [place] [address] [place] [phone] Kenya Garza M.D. [address] [place] [phone] 04/16/2024 2:30 PM CDT Office Visit Department of Ophthalmology in [place], [place] [address] [place] [phone] Kenya Garza M.D. [address] [place] [phone] 04/27/2024 10:02 AM CDT Hospital Encounter [facility] [address] [place] [phone] Prakash Graham M.D. [address] [place] [phone] 04/27/2024 10:02 AM CDT - 04/27/2024 11:45 AM CDT Surgery [facility] [address] [place] [phone] Prakash Graham M.D. [address] [place] [phone] VITRECTOMY - PARS PLANA 25 GAUGE / MEMBRANE PEEL / SILICONE OIL AND ALL ASSOCIATED PROCEDURES RIGHT EYE 04/28/2024 8:00 AM CDT Office Visit Department of Ophthalmology in [place], [place] [address] [place] [phone] Prakash Graham M.D. [address] [place] [phone] 05/05/2024 1:15 PM CDT Ancillary Procedure Department of Ophthalmology in [place], [place] [address] [place] [phone] Prakash Graham M.D. [address] [place] [phone] 05/05/2024 1:45 PM CDT Office Visit Department of Ophthalmology in [place], [place] [address] [place] [phone] Prakash Graham M.D. [address] [place] [phone] 06/02/2024 8:15 AM CDT Ancillary Procedure Department of Ophthalmology in [place], [place] [address] [place] [phone] Prakash Graham M.D. [address] [place] [phone] 06/02/2024 8:45 AM CDT Ancillary Procedure Department of Ophthalmology in [address] [phone] Prakash Graham M.D. [address] [place] [phone] 06/02/2024 9:00 AM CDT Office Visit Department of Ophthalmology in [address] [phone] Prakash Graham M.D. [address] [place] [phone] Scheduled Procedures Name Priority Associated Diagnoses Date/Ti me VITRECTOMY - PARS PLANA 25 GAUGE Panuveitis Right Necrosis Retinal Acute Right 04/27/2024 10:02 AM CDT documented as of this encounter Procedures Procedure Name Priority Date/Time Associated Diagnosis Comments OPHTHALMOLOGY IMAGE EXAM Routine 03/13/2024 12:05 AM CDT documented in this encounter Results * Eyes [facility]-Ophthalmology Image Exam (03/13/2024 12:05 AM CDT) Narrative IIMS - 03/13/2024 9:49 AM CDT [...] on filedocumented in this encounter Care Teams Boiler Attendant Relationship Specialty Start Date End Date Elsewhere, Pcp PCP - General Internal Medicine 05/29/19 documented as of this encounter
--- OUTSIDE RECORDS SUMMARY | 2024-03-19 17:01 | XMS_ITS | Encounter Summary ---
Author Organization [facility] Address [address] [place] [address] Care Team Providers Care Vacuum Plastic Forming Machine Operator Name Role Phone Elsewhere, Pcp Primary Care Provider Unavailabl e Encounter Details Date Type Department Care Team (Latest Contact Info) Description 03/11/2024 Clinical Communication Department of Ophthalmology in [place], [place] [address] [place] [address] Kenya Garza M.D. [address] [place] [address] Social History Tobacco Use Types Packs/Day Years Used Date Smoking Tobacco: Light Smoker Cigarettes 0.5 44.1 Started: 02/26/1980 Smokeless Tobacco: Never Comments:On again off again Alcohol Use Standard Drinks/Week Comments Yes 0 (1 standard drink = 0.6 oz pur e alcohol) [facility] Utilities Answer Date Recorded In the past 12 months has [employer], gas, oil, or water company threatened to [...] Never 06/27/2020 How often do you attend tenriism or adventist serv ices? Never 06/27/2020 Do you belong to any clubs o r organizations such as tenriism groups, unions, fraternal or athletic groups, or [...] heating? Somewhat hard 06/27/2020 [facility] [place] [facility] Occupat ional [facility] - Occupational Stress [...] living situation today? I have a [facility] place to live 11/05/2023 Education Answer [...] CDT Comprehensive Visit Preoperative Evaluation Center in [place], [place] [address] [place] [address] Prakash Graham M.D. [address] [place] [phone] 04/14/2024 1:30 PM CDT Ancillary Procedure Department of Ophthalmology in [place], [place] [address] [place] [phone] Kenya Garza M.D. [address] [place] [phone] 04/14/2024 2:10 PM CDT Ancillary Procedure Department of Ophthalmology in [place], [place] [address] [place] [phone] Prakash Graham M.D. [address] [place] [phone] 04/14/2024 2:30 PM CDT Office Visit Department of Ophthalmology in [place], [place] [address] [place] [phone] Prakash Graham M.D. [address] [place] [phone] 04/16/2024 12:30 PM CDT Ancillary Procedure Department of Ophthalmology in [place], [place] [address] [place] [phone] Prakash Graham M.D. [address] [place] [phone] 04/16/2024 1:00 PM CDT Ancillary Procedure Department of Ophthalmology in [place], [place] [address] [place] [phone] Kenya Garza M.D. [address] [place] [phone] 04/16/2024 2:00 PM CDT Ancillary Procedure Department of Ophthalmology in [place], [place] [address] [place] [phone] Kenya Garza M.D. [address] [place] [phone] 04/16/2024 2:30 PM CDT Office Visit Department of Ophthalmology in [place], [place] [address] [place] [phone] Kenya Garza M.D. [address] [place] [phone] 04/27/2024 10:02 AM CDT Hospital Encounter [facility] OR [address] [place] [phone] Prakash Graham M.D. [address] [place] [phone] 04/27/2024 10:02 AM CDT - 04/27/2024 11:45 AM CDT Surgery [facility] OR [address] [place] [phone] Prakash Graham M.D. [address] [place] [phone] VITRECTOMY - PARS PLANA 25 GAUGE / MEMBRANE PEEL / SILICONE OIL AND ALL ASSOCIATED PROCEDURES RIGHT EYE 04/28/2024 8:00 AM CDT Office Visit Department of Ophthalmology in [place], [place] [address] [place] [phone] Prakash Graham M.D. [address] [place] [phone] 05/05/2024 1:15 PM CDT Ancillary Procedure Department of Ophthalmology in [place], [place] [address] [place] [phone] Prakash Graham M.D. [address] [place] [phone] 05/05/2024 1:45 PM CDT Office Visit Department of Ophthalmology in [place], [place] [address] [place] [phone] Prakash Graham M.D. [address] [place] [phone] 06/02/2024 8:15 AM CDT Ancillary Procedure Department of Ophthalmology in [place], [place] [address] [place] [phone] Prakash Graham M.D. [address] [place] [phone] 06/02/2024 8:45 AM CDT Ancillary Procedure Department of Ophthalmology in [place], [place] [address] [place] [phone] Prakash Graham M.D. [address] [place] [phone] 06/02/2024 9:00 AM CDT Office Visit Department of Ophthalmology in [place], [place] [address] [place] [phone] Prakash Graham M.D. [address] [place] [address] Scheduled Procedures Name Priority Associated Diagnoses Date/Ti me VITRECTOMY - PARS PLANA 25 GAUGE Panuveitis Right Necrosis Retinal Acute Right 04/27/2024 10:02 AM CDT documented as of this encounter Visit Diagnoses Not on filedocumented in this encounter Care Teams Vacuum Plastic Forming Machine Operator Relationship Specialty Start Date End Date Elsewhere, Pcp PCP - General Internal Medicine 05/29/19 documented as of this encounter
--- OUTSIDE RECORDS SUMMARY | 2024-03-19 17:01 | XMS_ITS | Encounter Summary ---
Author Organization [facility] Address [address] [place] [address] Care Team Providers Care Boarder Steam Name Role Phone Elsewhere, Pcp Primary Care Provider Unavailabl e Encounter Details Date Type Department Care Team (Late st Contact Info) Description 03/13/2024 12:10 AM CDT Ancillary Procedure Department of Ophthalmology Social History Tobacco Use Types Packs/Day Years Used Date Smoking Tobacco: Light Smoker Cigarettes 0.5 44.1 Started: 02/26/1980 Smokeless Tobacco: Never Comments:On again off again Alcohol Use Standard Drinks/Week Comments Yes 0 (1 standard drink = 0.6 oz pur e alcohol) [facility] Utilities Answer Date Recorded In the past 12 months has [employer] electric, gas, oil, or water company threatened [...] Never 06/27/2020 How often do you attend amish or orthodoxy serv ices? Never 06/27/2020 Do you belong to any clubs o r organizations such as amish groups, unions, fraternal or athletic groups, or [...] medical care, and heating? Somewhat hard 06/27/2020 [facility] - Occupational Stress Questionnaire Answer [...] your living situation today? I have a [facility] place to live 11/05/2023 Education [...] CDT Comprehensive Visit Preoperative Evaluation Center in [place], [place] [address] [place] [phone] Prakash Graham M.D. [address] [place] [phone] 04/14/2024 1:30 PM CDT Ancillary Procedure Department of Ophthalmology in [address] [phone] Kenya Garza M.D. [address] [place] [phone] 04/14/2024 2:10 PM CDT Ancillary Procedure Department of Ophthalmology in [address] [phone] Prakash Graham M.D. [address] [place] [phone] 04/14/2024 2:30 PM CDT Office Visit Department of Ophthalmology in [address] [phone] Prakash Graham M.D. [address] [place] [phone] 04/16/2024 12:30 PM CDT Ancillary Procedure Department of Ophthalmology in [address] [phone] Prakash Graham M.D. [address] [place] [phone] 04/16/2024 1:00 PM CDT Ancillary Procedure Department of Ophthalmology in [place], [place] [address] [place] [phone] Kenya Garza M.D. [address] [place] [phone] 04/16/2024 2:00 PM CDT Ancillary Procedure Department of Ophthalmology in [place], [place] [address] [place] [phone] Kenya Garza M.D. [address] [place] [phone] 04/16/2024 2:30 PM CDT Office Visit Department of Ophthalmology in [place], [place] [address] [place] [phone] Kenya Garza M.D. [address] [place] [phone] 04/27/2024 10:02 AM CDT Hospital Encounter [facility] [place] [phone] Prakash Graham M.D. [address] [place] [phone] 04/27/2024 10:02 AM CDT - 04/27/2024 11:45 AM CDT Surgery [facility] [address] [place] [phone] Prakash Graham M.D. [address] [place] [phone] VITRECTOMY - PARS PLANA 25 GAUGE / MEMBRANE PEEL / SILICONE OIL AND ALL ASSOCIATED PROCEDURES RIGHT EYE 04/28/2024 8:00 AM CDT Office Visit Department of Ophthalmology in [place], [place] [address] [place] [phone] Prakash Graham M.D. [address] [place] [phone] 05/05/2024 1:15 PM CDT Ancillary Procedure Department of Ophthalmology in [place], [place] [address] [place] [phone] Prakash Graham M.D. [address] [place] [phone] 05/05/2024 1:45 PM CDT Office Visit Department of Ophthalmology in [place], [place] [address] [place] [phone] Prakash Graham M.D. [address] [place] [phone] 06/02/2024 8:15 AM CDT Ancillary Procedure Department of Ophthalmology in [place], [place] [address] [place] [phone] Prakash Graham M.D. [address] [place] [phone] 06/02/2024 8:45 AM CDT Ancillary Procedure Department of Ophthalmology in [address] [address] Prakash Graham M.D. [address] [place] [phone] 06/02/2024 9:00 AM CDT Office Visit Department of Ophthalmology in [address] [phone] Prakash Graham M.D. [address] [place] [phone] Scheduled Procedures Name Priority Associated Diagnoses Date/Ti me VITRECTOMY - PARS PLANA 25 GAUGE Panuveitis Right Necrosis Retinal Acute Right 04/27/2024 10:02 AM CDT documented as of this encounter Procedures Procedure Name Priority Date/Time Associated Diagnosis Comments OPHTHALMOLOGY IMAGE EXAM Routine 03/13/2024 12:10 AM CDT documented in this encounter Results * Eyes US-Eye F-Lepj-Audzkridyzdil Image Exam (03/13/2024 12:10 AM CDT) Narrative IIMS - 03/13/2024 9:49 [...] on filedocumented in this encounter Care Teams Boarder Steam Relationship Specialty Start Date End Date Elsewhere, Pcp PCP - General Internal Medicine 05/29/19 documented as of this encounter
--- OUTSIDE RECORDS SUMMARY | 2024-03-19 17:01 | XMS_ITS | Encounter Summary ---
Author Organization [facility] Address [address] [place] [address] Care Team Providers Care Evaluation Manager Name Role Phone Elsewhere, Pcp Primary Care Provider Unavailabl e Encounter Details Date Type Department Care Team (Latest Contact Info) Description 03/10/2024 Clinical Communication Department of Ophthalmology in [place], [place] [address] [place] [address] Kenya Garza M.D. [address] [place] [address] Social History Tobacco Use Types Packs/Day Years Used Date Smoking Tobacco: Light Smoker Cigarettes 0.5 44.1 Started: 02/26/1980 Smokeless Tobacco: Never Comments:On again off again Alcohol Use Standard Drinks/Week Comments Yes 0 (1 standard drink = 0.6 oz pur e alcohol) [facility] Utilities Answer Date Recorded In the past 12 months has [employer], gas, oil, or water company threatened to [...] Never 06/27/2020 How often do you attend samaritan or mosque serv ices? Never 06/27/2020 Do you belong to any clubs o r organizations such as samaritan groups, unions, fraternal or athletic groups, or [...] medical care, and heating? Somewhat hard 06/27/2020 [facility] [place] [facility] Occupat ional Health - Occupational [...] your living situation today? I have a [facility] place to live 11/05/2023 Education Answer Date [...] CDT Comprehensive Visit Pre[facility] Evaluation Center in [place], [place] [address] [place] [address] Prakash Graham M.D. [address] [place] [phone] 04/14/2024 1:30 PM CDT Ancillary Procedure Department of Ophthalmology in [place], [place] [address] [place] [phone] Kenya Garza M.D. [address] [place] [phone] 04/14/2024 2:10 PM CDT Ancillary Procedure Department of Ophthalmology in [place], [place] [address] [place] [phone] Prakash Graham M.D. [address] [place] [phone] 04/14/2024 2:30 PM CDT Office Visit Department of Ophthalmology in [place], [place] [address] [place] [phone] Prakash Graham M.D. [address] [place] [phone] 04/16/2024 12:30 PM CDT Ancillary Procedure Department of Ophthalmology in [place], [place] [address] [place] [phone] Prakash Graham M.D. [address] [place] [phone] 04/16/2024 1:00 PM CDT Ancillary Procedure Department of Ophthalmology in [place], [place] [address] [place] [phone] Kenya Garza M.D. [address] [place] [phone] 04/16/2024 2:00 PM CDT Ancillary Procedure Department of Ophthalmology in [place], [place] [address] [place] [phone] Kenya Garza M.D. [address] [place] [phone] 04/16/2024 2:30 PM CDT Office Visit Department of Ophthalmology in [place], [place] [address] [place] [phone] Kenya Garza M.D. [address] [place] [phone] 04/27/2024 10:02 AM CDT Hospital En[facility] OR [address] [place] [phone] Prakash Graham M.D. [address] [place] [phone] 04/27/2024 10:02 AM CDT - 04/27/2024 11:45 AM CDT Surgery [facility] OR [address] [place] [phone] Prakash Graham M.D. [address] [place] [phone] VITRECTOMY - PARS PLANA 25 GAUGE / MEMBRANE PEEL / SILICONE OIL AND ALL ASSOCIATED PROCEDURES RIGHT EYE 04/28/2024 8:00 AM CDT Office Visit Department of Ophthalmology in [place], [place] [address] [place] [phone] Prakash Graham M.D. [address] [place] [phone] 05/05/2024 1:15 PM CDT Ancillary Procedure Department of Ophthalmology in [place], [place] [address] [place] [phone] Prakash Graham M.D. [address] [place] [phone] 05/05/2024 1:45 PM CDT Office Visit Department of Ophthalmology in [place], [place] [address] [place] [phone] Prakash Graham M.D. [address] [place] [phone] 06/02/2024 8:15 AM CDT Ancillary Procedure Department of Ophthalmology in [place], [place] [address] [place] [phone] Prakash Graham M.D. [address] [place] [phone] 06/02/2024 8:45 AM CDT Ancillary Procedure Department of Ophthalmology in [place], [place] [address] [place] [phone] Prakash Graham M.D. [address] [place] [phone] 06/02/2024 9:00 AM CDT Office Visit Department of Ophthalmology in [place], [place] [address] [place] [phone] Prakash Graham M.D. [address] [place] [address] Scheduled Procedures Name Priority Associated Diagnoses Date/Ti me VITRECTOMY - PARS PLANA 25 GAUGE Panuveitis Right Necrosis Retinal Acute Right 04/27/2024 10:02 AM CDT documented as of this encounter Visit Diagnoses Not on filedocumented in this encounter Care Teams Evaluation Manager Relationship Specialty Start Date End Date Elsewhere, Pcp PCP - General Internal Medicine 05/29/19 documented as of this encounter
--- OUTSIDE RECORDS SUMMARY | 2024-03-19 17:01 | XMS_ITS | Encounter Summary ---
Author Organization [facility] Address [address] [place] [address] Care Team Providers Care Assembler Molded Frames Name Role Phone Elsewhere, Pcp Primary Care Provider Unavailabl e Reason for Referral * Outpatient (Routine) - Authorized Specialty Diagnoses / Procedures Referred By Contmuriel t Referred To Contact Ophthalmology Prakash Graham M.D. [address] [place] [address] [facility] Referral ID Status Reason Start Date Expiration Date V isits Requested Visits Authorized [id number] Authorized 03/16/2024 09/15/2025 1 1 Encounter Details Date Type Department Care Team (Late st Contact Info) Description 03/16/2024 Orders Only Department of Ophthalmology in [place], [place] [address] [place] [phone] Jean Claude Newsome, C.O.A. Panuveitis Right (Primary Dx); Necrosis Retinal Acute Right Social History Tobacco Use Types Packs/Day Years Used Date Smoking Tobacco: Light Smoker Cigarettes 0.5 44.1 Started: 02/26/1980 Smokeless Tobacco: Never Comments:On again off again Alcohol Use Standard Drinks/Week Comments Yes 0 (1 standard drink = 0.6 oz pur e alcohol) [facility] Utilities Answer Date Recorded In [...] Never 06/27/2020 How often do you attend advent or protestant serv ices? Never 06/27/2020 Do you belong to any clubs o r organizations such as advent groups, unions, fraternal or athletic groups, or [...] medical care, and heating? Somewhat hard 06/27/2020 [facility] of Occupat ional Health - Occupational Stress [...] your living situation today? I have a [facility] place to live 11/05/2023 Education [...] CDT Comprehensive Visit Preoperative Evaluation Center in [place], [place] [address] [place] [address] Prakash Graham M.D. [address] [place] [phone] 04/14/2024 1:30 PM CDT Ancillary Procedure Department of Ophthalmology in [place], [place] [address] [place] [phone] Kenya Garza M.D. [address] [place] [phone] 04/14/2024 2:10 PM CDT Ancillary Procedure Department of Ophthalmology in [place], [place] [address] [place] [phone] Prakash Graham M.D. [address] [place] [phone] 04/14/2024 2:30 PM CDT Office Visit Department of Ophthalmology in [place], [place] [address] [place] [phone] Prakash Graham M.D. [address] [place] [phone] 04/16/2024 12:30 PM CDT Ancillary Procedure Department of Ophthalmology in [place], [place] [address] [place] [phone] Prakash Graham M.D. [address] [place] [phone] 04/16/2024 1:00 PM CDT Ancillary Procedure Department of Ophthalmology in [place], [place] [address] [place] [phone] Kenya Garza M.D. [address] [place] [phone] 04/16/2024 2:00 PM CDT Ancillary Procedure Department of Ophthalmology in [address] [phone] Kenya Garza M.D. [address] [place] [phone] 04/16/2024 2:30 PM CDT Office Visit Department of Ophthalmology in [place], [place] [address] [place] [phone] Kenya Garza M.D. [address] [place] [phone] 04/27/2024 10:02 AM CDT Hospital Encounter [facility] [place] [address] [place] [phone] Prakash Graham M.D. [address] [place] [phone] 04/27/2024 10:02 AM CDT - 04/27/2024 11:45 AM CDT Surgery [facility] [place] [address] [place] [phone] Prakash Graham M.D. [address] [place] [phone] VITRECTOMY - PARS PLANA 25 GAUGE / MEMBRANE PEEL / SILICONE OIL AND ALL ASSOCIATED PROCEDURES RIGHT EYE 04/28/2024 8:00 AM CDT Office Visit Department of Ophthalmology in [place], [place] [address] [place] [phone] Prakash Graham M.D. [address] [place] [phone] 05/05/2024 1:15 PM CDT Ancillary Procedure Department of Ophthalmology in [place], [place] [address] [place] [phone] Prakash Graham M.D. [address] [place] [phone] 05/05/2024 1:45 PM CDT Office Visit Department of Ophthalmology in [place], [place] [address] [place] [phone] Prakash Graham M.D. [address] [place] [phone] 06/02/2024 8:15 AM CDT Ancillary Procedure Department of Ophthalmology in [place], [place] [address] [place] [phone] Prakash Graham M.D. [address] [place] [phone] 06/02/2024 8:45 AM CDT Ancillary Procedure Department of Ophthalmology in [place], [place] [address] [place] [phone] Prakash Graham M.D. [address] [place] [phone] 06/02/2024 9:00 AM CDT Office Visit Department of Ophthalmology in [place], [place] [address] [place] [address] Prakash Graham M.D. [address] [place] [phone] Scheduled Orders Name Type Priority Associated Diagnoses Orde r Schedule Optical Coherence Tomography - Macula/Retina - OU - Both Eyes Ophthalmology Routine Panuveitis Right Necrosis Retinal Acute Right Expected: 04/16/2024, Expires: 06/16/2025 Scheduled Procedures Name Priority Associated Diagnoses Date/Ti me VITRECTOMY - PARS PLANA 25 GAUGE Panuveitis Right Necrosis Retinal Acute Right 04/27/2024 10:02 AM CDT Scheduled Referrals Name Type Priority Associated Diagnoses Order Schedule Ophthalmology office visit (clinic) Outpatient Referral Routine Expected: 04/16/2024, Expires: 06/16/2025 documented as of this encounter Visit Diagnoses Diagnosis Panuveitis Right Necrosis Retinal Acute Right Chronic Obstructive Pulmonary Disease Without Exacerbation (HCC) Panuveitis Right- Primary Necrosis Retinal Acute Right Panuveitis Right Necrosis Retinal Acute Right documented in this encounter Care Teams Assembler Molded Frames Relationship Specialty Start Date End Date Elsewhere, Pcp PCP - General Internal Medicine 05/29/19 documented as of this encounter
--- OUTSIDE RECORDS SUMMARY | 2024-03-19 17:01 | XMS_ITS | Encounter Summary ---
Author Organization [facility] Address [address] [place] [address] Care Team Providers Care Lav Crewman Name Role Phone Elsewhere, Pcp Primary Care Provider Unavailabl e Reason for Referral * Outpatient (Routine) - Closed Specialty Diagnoses / Procedures Referred By Apolinar lopez Referred To Contact Procedures Cyclophotocoagulation, Transscleral - OD - Right Eye Prakash Graham M.D. 200 [place] [address] [facility] Referral ID Status Reason Start Date Expiration Date Visits Re quested Visits Authorized [id number] Closed 03/13/2024 03/13/2025 1 1 Reason for Visit * Outpatient (Routine) - Canceled Specialty Diagnoses / Procedures Referred By Apolinar lopez Referred To Contact Diagnoses Panuveitis Right Necrosis Retinal Acute Right Procedures Intravitreal Injection, Pharmacologic Agent - OD - Right Eye Prakash Graham M.D. 200 [place] [address] [facility] Referral ID Status Reason Start Date Expiration Date V isits Requested Visits Authorized [id number] Canceled 03/13/2024 03/13/2025 1 1 Encounter Details Date Type Department Care Team (Latest Contact Info) Description 03/13/2024 2:00 PM CDT Procedure visit Department of Ophthalmology in [place], [place] [address] [place] [phone] Prakash Graham M.D. 200 [place] [address] Primary Hypotony Right Eye (Primary Dx); Panuveitis Right; Necrosis Retinal Acute Right Social History Tobacco Use Types Packs/Day Years Used Date Smoking Tobacco: Light Smoker Cigarettes 0.5 44.1 Started: 02/26/1980 Smokeless Tobacco: Never Comments:On again off again Alcohol Use Standard Drinks/Week Comments Yes 0 (1 standard drink = 0.6 oz pur e alcohol) [facility] Utilities Answer Date Recorded In the [...] How often do you attend jain or gnosticism serv ices? Never 06/27/2020 Do [...] Somewhat hard 06/27/2020 [facility] [place] of Occupat ional Health - Occupational Stress [...] your living situation today? I have a [facility] place to live 11/05/2023 Education Answer [...] as of this encounter Progress Notes * Prakash Graham M.D. - 03/13/2024 2:00 PM CDT Cryocyclopexy right eye procedure note. documented in this encounter Plan of Treatment Upcoming Encounters Date Type Department Care Team (Latest Contact Info) Description 04/14/2024 11:00 AM CDT Comprehensive Visit Preoperative Evaluation Center in [place], [place] [address] [place] [phone] Prakash Graham M.D. [address] [place] [phone] 04/14/2024 1:30 PM CDT Ancillary Procedure Department of Ophthalmology in [place], [place] [address] [place] [phone] Kenya Garza M.D. [address] [place] [phone] 04/14/2024 2:10 PM CDT Ancillary Procedure Department of Ophthalmology in [place], [place] [address] [place] [phone] Prakash Graham M.D. [address] [place] [phone] 04/14/2024 2:30 PM CDT Office Visit Department of Ophthalmology in [address] [phone] Prakash Graham M.D. [address] [place] [phone] 04/16/2024 12:30 PM CDT Ancillary Procedure Department of Ophthalmology in [address] [phone] Prakash Graham M.D. [address] [place] [phone] 04/16/2024 1:00 PM CDT Ancillary Procedure Department of Ophthalmology in [address] [phone] Kenya Garza M.D. [address] [place] [phone] 04/16/2024 2:00 PM CDT Ancillary Procedure Department of Ophthalmology in [place], [place] [address] [place] [phone] Kenya Garza M.D. [address] [place] [phone] 04/16/2024 2:30 PM CDT Office Visit Department of Ophthalmology in [place], [place] [address] [place] [phone] Kenya Garza M.D. [address] [place] [phone] 04/27/2024 10:02 AM CDT Hospital Encounter [facility] [place] [facility] [address] [place] [phone] Prakash Graham M.D. [address] [place] [phone] 04/27/2024 10:02 AM CDT - 04/27/2024 11:45 AM CDT Surgery [facility] OR [address] [place] [phone] Prakash Graham M.D. [address] [place] [phone] VITRECTOMY - PARS PLANA 25 GAUGE / MEMBRANE PEEL / SILICONE OIL AND ALL ASSOCIATED PROCEDURES RIGHT EYE 04/28/2024 8:00 AM CDT Office Visit Department of Ophthalmology in [place], [place] [address] [place] [phone] Prakash Graham M.D. [address] [place] [phone] 05/05/2024 1:15 PM CDT Ancillary Procedure Department of Ophthalmology in [place], [place] [address] [place] [phone] Prakash Graham M.D. [address] [place] [phone] 05/05/2024 1:45 PM CDT Office Visit Department of Ophthalmology in [place], [place] [address] [place] [phone] Prakash Graham M.D. [address] [place] [phone] 06/02/2024 8:15 AM CDT Ancillary Procedure Department of Ophthalmology in [place], [place] [address] [place] [phone] Prakash Graham M.D. [address] [place] [phone] 06/02/2024 8:45 AM CDT Ancillary Procedure Department of Ophthalmology in [place], [place] [address] [place] [phone] Prakash Graham M.D. [address] [place] [phone] 06/02/2024 9:00 AM CDT Office Visit Department of Ophthalmology in [place], [place] [address] [place] [phone] Prakash Graham M.D. [address] [place] [phone] Scheduled Procedures Name Priority Associated Diagnoses Date/Ti me VITRECTOMY - PARS PLANA 25 GAUGE Panuveitis Right Necrosis Retinal Acute Right 04/27/2024 10:02 AM CDT documented as of this encounter Procedures Procedure Name Priority Date/Time Associated Diagnosis Comments CYCLOPHOTOCOAGULATION , TRANSSCLERAL - OD - RIGHT EYE Routine 03/13/2024 3:49 PM CDT Primary Hypotony Right Eye documented in this encounter Results * Cyclophotocoagulation, Transscleral - OD - Right Eye (03/13/2024 3:49 PM CDT) Narrative OPHTHALMOLGY NON-IMAGING ORDERS - 03/13/2024 3:49 PM CDT Time Out Confirmed correct patient, procedure, site, and patient consented. Procedure Topical anesthesia was used. Post-op The patient tolerated the procedure well. There were no complications. The patient received written and verbal post procedure care education. Notes 6 spots of cryocyclopexy applied from 3 - 9 o'clock right eye Prakash Graham M.D. 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
--- OUTSIDE RECORDS SUMMARY | 2024-03-19 17:01 | XMS_ITS | Encounter Summary ---
Author Organization [facility] Address [address] [place] [address] Care Team Providers Care Operator Helper Name Role Phone Elsewhere, Pcp Primary Care Provider Unavailabl e Encounter Details Date Type Department Care Team (Late st Contact Info) Description 03/16/2024 Orders Only Department of Ophthalmology in [place], [place] [address] [place] [address] Shahnaz Amato, C.O.A. [address] [place] [address] Necrosis Retinal Acute Right (Primary Dx) Social History Tobacco Use Types Packs/Day Years Used Date Smoking Tobacco: Light Smoker Cigarettes 0.5 44.1 Started: 02/26/1980 Smokeless Tobacco: Never Comments:On again off again Alcohol Use Standard Drinks/Week Comments Yes 0 (1 standard drink = 0.6 oz pur e alcohol) [facility] Utilities Answer Date Recorded In the [...] How often do you attend taoism or voodoo serv ices? Never 06/27/2020 Do you belong [...] care, and heating? Somewhat hard 06/27/2020 [facility] [place] of Occupat ional Health - Occupational Stress [...] your living situation today? I have a [facility] place to live 11/05/2023 Education Answer Date [...] CDT Comprehensive Visit Preoperative Evaluation Center in [place], [place] [address] [place] [address] Prakash Graham M.D. [address] [place] [phone] 04/14/2024 1:30 PM CDT Ancillary Procedure Department of Ophthalmology in [place], [place] [address] [place] [phone] Kenya Garza M.D. [address] [place] [phone] 04/14/2024 2:10 PM CDT Ancillary Procedure Department of Ophthalmology in [place], [place] [address] [place] [phone] Prakash Graham M.D. [address] [place] [phone] 04/14/2024 2:30 PM CDT Office Visit Department of Ophthalmology in [place], [place] [address] [place] [phone] Prakash Graham M.D. [address] [place] [phone] 04/16/2024 12:30 PM CDT Ancillary Procedure Department of Ophthalmology in [place], [place] [address] [place] [phone] Prakash Graham M.D. [address] [place] [phone] 04/16/2024 1:00 PM CDT Ancillary Procedure Department of Ophthalmology in [place], [place] [address] [place] [phone] Kenya Garza M.D. [address] [place] [phone] 04/16/2024 2:00 PM CDT Ancillary Procedure Department of Ophthalmology in [place], [place] [address] [place] [phone] Kenya Garza M.D. [address] [place] [phone] 04/16/2024 2:30 PM CDT Office Visit Department of Ophthalmology in [place], [place] [address] [place] [phone] Kenya Garza M.D. [address] [place] [phone] 04/27/2024 10:02 AM CDT Hospital Encounter [facility] OR [address] [place] [phone] Prakash Graham M.D. [address] [place] [phone] 04/27/2024 10:02 AM CDT - 04/27/2024 11:45 AM CDT Surgery [facility] OR [address] [place] [phone] Prakash Graham M.D. [address] [place] [phone] VITRECTOMY - PARS PLANA 25 GAUGE / MEMBRANE PEEL / SILICONE OIL AND ALL ASSOCIATED PROCEDURES RIGHT EYE 04/28/2024 8:00 AM CDT Office Visit Department of Ophthalmology in [place], [place] [address] [place] [phone] Prakash Graham M.D. [address] [place] [phone] 05/05/2024 1:15 PM CDT Ancillary Procedure Department of Ophthalmology in [place], [place] [address] [place] [phone] Prakash Graham M.D. [address] [place] [phone] 05/05/2024 1:45 PM CDT Office Visit Department of Ophthalmology in [place], [place] [address] [place] [phone] Prakash Graham M.D. [address] [place] [phone] 06/02/2024 8:15 AM CDT Ancillary Procedure Department of Ophthalmology in [place], [place] [address] [place] [phone] Prakash Graham M.D. [address] [place] [phone] 06/02/2024 8:45 AM CDT Ancillary Procedure Department of Ophthalmology in [place], [place] [address] [place] [phone] Prakash Graham M.D. [address] [place] [phone] 06/02/2024 9:00 AM CDT Office Visit Department of Ophthalmology in [place], [place] [address] [place] [phone] Prakash Graham M.D. [address] [place] [phone] Scheduled Orders Name Type Priority Associated Diagnoses Orde r Schedule B-Scan Ultrasound - OD - Right Eye Ophthalmology Routine Necrosis Retinal Acute Right Expected: 03/16/2024, Expires: 06/16/2025 Ultrasound Biomicroscopy (UBM) - OD - Right Eye Ophthalmology Routine Necrosis Retinal Acute Right Expected: 03/16/2024, Expires: 06/16/2025 Scheduled Procedures Name Priority Associated Diagnoses Date/Ti me VITRECTOMY - PARS PLANA 25 GAUGE Panuveitis Right Necrosis Retinal Acute Right 04/27/2024 10:02 AM CDT documented as of this encounter Visit Diagnoses Diagnosis Panuveitis Right Necrosis Retinal Acute Right Chronic Obstructive Pulmonary Disease Without Exacerbation (HCC) Necrosis Retinal Acute Right- Primary Panuveitis Right Necrosis Retinal Acute Right documented in this encounter Care Teams Operator Helper Relationship Specialty Start Date End Date Elsewhere, Pcp PCP - General Internal Medicine 05/29/19 documented as of this encounter
--- OUTSIDE RECORDS SUMMARY | 2024-03-19 17:01 | XMS_ITS | Encounter Summary ---
Author Organization [facility] Address [address] [place] [address] Care Team Providers Care Hydraulic Press Tender Name Role Phone Elsewhere, Pcp Primary Care Provider Unavailabl e Reason for Referral * Outpatient (Routine) - Authorized Specialty Diagnoses / Procedures Referred By Apolinar lopez Referred To Contact Ophthalmology Diagnoses Necrosis Retinal Acute Right Kenya Garza M.D. [address] [place] [phone] [facility] Referral ID Status Reason Start Date Expiration Date V isits Requested Visits Authorized [id number] Authorized 03/13/2024 09/12/2025 1 1 Reason for Visit * Outpatient (Routine) - Closed Specialty Diagnoses / Procedures Referred By Apolinar lopez Referred To Contact Ophthalmology Diagnoses Panuveitis Right Necrosis Retinal Acute Right Kenya Garza M.D. [address] [place] [phone] [facility] Referral ID Status Reason Start Date Expiration Date Visits Re quested Visits Authorized [id number] Closed 02/20/2024 08/21/2025 1 1 Encounter Details Date Type Department Care Team (Latest Contact Info) Description 03/13/2024 11:30 AM CDT Office Visit Department of Ophthalmology in [place], [place] [address] [place] [phone] Kenya Garza M.D. [address] [place] [phone] Necrosis Retinal Acute Right (Primary Dx); Panuveitis Right Social History Tobacco Use Types Packs/Day Years Used Date Smoking Tobacco: Light Smoker Cigarettes 0.5 44.1 Started: 02/26/1980 Smokeless Tobacco: Never Comments:On again off again Alcohol Use Standard Drinks/Week Comments Yes 0 (1 standard drink = 0.6 oz pur e alcohol) [facility] Utilities Answer Date Recorded [...] How often do you attend taoism or yazdanism serv ices? Never 06/27/2020 Do [...] medical care, and heating? Somewhat hard 06/27/2020 [facility] of Occupat ional Health - Occupational Stress [...] Progress Notes * Kenya Garza M.D. - 03/13/2024 11:30 AM CDT HPI - 11/05/23 Mrs. Alexandra Dixon is a 68 year old woman who is referred by Dr. Daisy Ivy for evaluation ofuveitis. She woke up with a red, painful, tearing right eye on 12/20/23. Was seen in urgent care on 10/19/23and diagnosed with pink eye, treated with tobramycin drops without improvement. She saw apprentice jockey Dr. Daisy Ivy on 10/23/23. VA was [...] has not been able to see her managed care director oncologist recently because every time she went to an appointment she was sent to the emergency room due to elevated blood pressure. In August 2023, she was sent from an infusion center to [place] emergency department where shewas found to have oxygen saturations of 78%. CT imaging showed worsening bilateral ground glass opacities. A CT scan was negative for pulmonary embolism. She was transferred to [facility] for additional pulmonology care. On [...] three times in the past three months: [place] (09/02/23 for hypercalcemiaand acute kidney injury - had CT chest/abdomen/pelvis to assess for malignancy), [facility] again. Each time she saw her [...] plans to monitor. (Her oncologist is at [facility].) MEDICATIONS Prednisolone every hour while awake [...] shallow retinal detachment. No T sign noted. [facility] Macula OCT of the right eye shows [...] membranes. Possible posterior thickening. No T sign. 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 [facility] PLAN: It has been 21 days since [...] Decrease PO prednisone to 10 mg daily 02/20/24 Vision seems about the same. When she covers her left eye, vision might be a little brighter in the right eye. She will have a PET scan on 03/05/24 - she had some lab testing for oncology follow up and she was noted to have low immunoglobulins. MEDICATIONS Durezol BID right eye (started 11/13/23) Valacyclovir 1000 mg TID (started 11/06/23) Prednisone 10 mg daily (started 20 mg 11/26/23, 01/01/24 15 mg, 01/24/24 10 mg) [facility] without correction HM and 20/30 (PH 20/20) The right eye anterior chamber cell is [...] eye has no inflammation. It has been 15 weeks since intravitreal [...] to repeat intravitreal injections at this time. TODAY - 03/13/24 Since last visit, prednisone was increased to 40 mg daily because she was in the hospital with pneumonia. She was treated with antibiotics which she finished, but now she is back on Augmentin for a sinus infection. She did not have the PET CT on 03/05/24 because that was the day she was hospitalized. Now rescheduled for 03/20/24, oncology follow up will be on 03/24/24. No changes in vision. MEDICATIONS Durezol BID right eye (started 11/13/23) Valacyclovir 1000 mg TID (started 11/06/23) Prednisone 10 mg daily (started 20 mg 11/26/23, 01/01/24 15 mg, 01/24/24 10 mg, ) Status post intravitreal foscarnet & ganciclovir on 11/05/23 EXAM VA without correction HM and 20/20 [facility] pressures 3 & 10 The right eye anterior chamber cell is [...] the left eye is unremarkable (essentially normal). 03/13/2024 B-Scan Right Eye: dense vitreous opacities, probable posterior vitreous detachment, vitreous membranes possibly extending to disc, detachments vs opacities - cannot rule out choroidal detachment, thickened fundus appearance. UBM Right Eye: minimal opacities in anterior chamber, ciliary body detachment noted, possible ciliochoroidal effusion. 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 PLAN It has been 18 weeks since intravitreal foscarnet and ganciclovir and 17 wks on PO valacyclovir. She started PO prednisone 20 mg daily on 11/26/2023, 15 mg as of 01/02/24, now 10 mg since 01/24/24. The peripheral patches of retinitis in the right eye are nearly completely involuted. The anterior chamber cell is rare. The vitreous cell is slightly increased vs last visit, but haze is not too bad. There are sclerotic arterioles close to the disc, so she may have had a branch artery occlusion. Optic nerve inflammation might be the other cause of persistently decreased vision. Theeye is also hypotonous and UBM confirms a ciliary body detachment. I reviewed her case with Dr. Graham who kindly agreed to evaluate her today. He might try cryotherapy to the ciliary body detachment. If he does this procedure today, then prednisone should be increased temporarily (perhaps back to 40 mg daily, then tapered per Dr. Graham.) If prednisone does not need to be increased, then we might decrease PO valacyclovir to 1 g BID. Durezol should continue twice daily in the right eye for now. I will see her again when she returns with Dr. Graham or in 3-4 weeks. Probably need to repeat US and UBM plus macula OCT. 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 documented in this encounter Plan of Treatment Upcoming Encounters Date Type Department Care Team (Latest Contact Info) Description 04/14/2024 11:00 AM CDT Comprehensive Visit Preoperative Evaluation Center in [address] [phone] Prakash Graham M.D. [address] [place] [phone] 04/14/2024 1:30 PM CDT Ancillary Procedure Department of Ophthalmology in [place], [place] [address] [place] [phone] Kenya Garza M.D. [address] [place] [phone] 04/14/2024 2:10 PM CDT Ancillary Procedure Department of Ophthalmology in [place], [place] [address] [place] [phone] Prakash Graham M.D. [address] [place] [phone] 04/14/2024 2:30 PM CDT Office Visit Department of Ophthalmology in [address] [phone] Prakash Graham M.D. [address] [place] [phone] 04/16/2024 12:30 PM CDT Ancillary Procedure Department of Ophthalmology in [address] [phone] Prakash Graham M.D. [address] [place] [phone] 04/16/2024 1:00 PM CDT Ancillary Procedure Department of Ophthalmology in [place], [place] [address] [place] [phone] Kenya Garza M.D. [address] [place] [phone] 04/16/2024 2:00 PM CDT Ancillary Procedure Department of Ophthalmology in [place], [place] [address] [place] [phone] Kenya Garza M.D. [address] [place] [phone] 04/16/2024 2:30 PM CDT Office Visit Department of Ophthalmology in [place], [place] [address] [place] [phone] Kenya Garza M.D. [address] [place] [phone] 04/27/2024 10:02 AM CDT Hospital Encounter [facility] [place] [phone] Prakash Graham M.D. [address] [place] [phone] 04/27/2024 10:02 AM CDT - 04/27/2024 11:45 AM CDT Surgery [facility] [address] [place] [phone] Prakash Graham M.D. [address] [place] [phone] VITRECTOMY - PARS PLANA 25 GAUGE / MEMBRANE PEEL / SILICONE OIL AND ALL ASSOCIATED PROCEDURES RIGHT EYE 04/28/2024 8:00 AM CDT Office Visit Department of Ophthalmology in [place], [place] [address] [place] [phone] Prakash Graham M.D. [address] [place] [phone] 05/05/2024 1:15 PM CDT Ancillary Procedure Department of Ophthalmology in [place], [place] [address] [place] [phone] Prakash Graham M.D. [address] [place] [phone] 05/05/2024 1:45 PM CDT Office Visit Department of Ophthalmology in [place], [place] [address] [place] [phone] Prakash Graham M.D. [address] [place] [phone] 06/02/2024 8:15 AM CDT Ancillary Procedure Department of Ophthalmology in [place], [place] [address] [place] [phone] Prakash Graham M.D. [address] [place] [phone] 06/02/2024 8:45 AM CDT Ancillary Procedure Department of Ophthalmology in [place], [place] [address] [place] [phone] Prakash Graham M.D. [address] [place] [phone] 06/02/2024 9:00 AM CDT Office Visit Department of Ophthalmology in [place], [place] [address] [place] [phone] Prakash Graham M.D. [address] [place] [phone] Scheduled Procedures Name Priority Associated Diagnoses Date/Ti me VITRECTOMY - PARS PLANA 25 GAUGE Panuveitis Right Necrosis Retinal Acute Right 04/27/2024 10:02 AM CDT Scheduled Referrals Name Type Priority Associated Diagnoses Order Schedule Ophthalmology office visit (clinic) Outpatient Referral Routine Necrosis Retinal Acute Right Expected: 04/13/2024 (Approximate), Expires: 03/13/2027 documented as of this encounter Visit Diagnoses Diagnosis Necrosis Retinal Acute Right- Primary Panuveitis Right Panuveitis Right Necrosis Retinal Acute Right documented in this encounter Care Teams Hydraulic Press Tender Relationship Specialty Start Date End Date Elsewhere, Pcp PCP - General Internal Medicine 05/29/19 documented as of this encounter
--- OUTSIDE RECORDS SUMMARY | 2024-03-19 17:01 | XMS_ITS | Encounter Summary ---
Author Organization [facility] Address [address] [place] [address] Care Team Providers Care Powder Compounder Name Role Phone Elsewhere, Pcp Primary Care Provider Unavailabl e Encounter Details Date Type Department Care Team (Late st Contact Info) Description 03/13/2024 Orders Only Department of Ophthalmology in [place], [place] [address] [place] [phone] Jean Claude Newsome, C.O.A. Necrosis Retinal Acute Right (Primary Dx) Social History Tobacco Use Types Packs/Day Years Used Date Smoking Tobacco: Light Smoker Cigarettes 0.5 44.1 Started: 02/26/1980 Smokeless Tobacco: Never Comments:On again off again Alcohol Use Standard Drinks/Week Comments Yes 0 (1 standard drink = 0.6 oz pur e alcohol) [facility] Utilities Answer Date Recorded In the past 12 months has [employer] electric, gas, oil, or water company threatened [...] Never 06/27/2020 How often do you attend yazidism or restorationism serv ices? Never 06/27/2020 Do you belong to any clubs o r organizations such as yazidism groups, unions, fraternal or athletic groups, or [...] care, and heating? Somewhat hard 06/27/2020 [facility] of Occupat ional Health - Occupational Stress [...] your living situation today? [facility] 11/05/2023 Education Answer [...] CDT Comprehensive Visit Preoperative Evaluation Center in [place], [place] [address] [place] [phone] Prakash Graham M.D. [address] [place] [phone] 04/14/2024 1:30 PM CDT Ancillary Procedure Department of Ophthalmology in [place], [place] [address] [place] [phone] Kenya Garza M.D. [address] [place] [phone] 04/14/2024 2:10 PM CDT Ancillary Procedure Department of Ophthalmology in [place], [place] [address] [place] [phone] Prakash Graham M.D. [address] [place] [phone] 04/14/2024 2:30 PM CDT Office Visit Department of Ophthalmology in [place], [place] [address] [place] [phone] Prakash Graham M.D. [address] [place] [phone] 04/16/2024 12:30 PM CDT Ancillary Procedure Department of Ophthalmology in [place], [place] [address] [place] [phone] Prakash Graham M.D. [address] [place] [phone] 04/16/2024 1:00 PM CDT Ancillary Procedure Department of Ophthalmology in [place], [place] [address] [place] [phone] Kenya Garza M.D. [address] [place] [phone] 04/16/2024 2:00 PM CDT Ancillary Procedure Department of Ophthalmology in [place], [place] [address] [place] [phone] Kenya Garza M.D. [address] [place] [phone] 04/16/2024 2:30 PM CDT Office Visit Department of Ophthalmology in [place], [place] [address] [place] [phone] Kenya Garza M.D. [address] [place] [phone] 04/27/2024 10:02 AM CDT Hospital Encounter [facility] [place] [phone] Prakash Graham M.D. [address] [place] [phone] 04/27/2024 10:02 AM CDT - 04/27/2024 11:45 AM CDT Surgery T [facility] [address] [place] [phone] rPakash Graham M.D. [address] [place] [phone] VITRECTOMY - PARS PLANA 25 GAUGE / MEMBRANE PEEL / SILICONE OIL AND ALL ASSOCIATED PROCEDURES RIGHT EYE 04/28/2024 8:00 AM CDT Office Visit Department of Ophthalmology in [place], [place] [address] [place] [phone] Prakash Graham M.D. [address] [place] [phone] 05/05/2024 1:15 PM CDT Ancillary Procedure Department of Ophthalmology in [place], [place] [address] [place] [phone] Prakash Graham M.D. [address] [place] [phone] 05/05/2024 1:45 PM CDT Office Visit Department of Ophthalmology in [place], [place] [address] [place] [phone] Prakash Graham M.D. [address] [place] [phone] 06/02/2024 8:15 AM CDT Ancillary Procedure Department of Ophthalmology in [place], [place] [address] [place] [phone] Prakash Graham M.D. [address] [place] [phone] 06/02/2024 8:45 AM CDT Ancillary Procedure Department of Ophthalmology in [place], [place] [address] [place] [phone] Prakash Graham M.D. [address] [place] [phone] 06/02/2024 9:00 AM CDT Office Visit Department of Ophthalmology in [place], [place] [address] [place] [phone] Prakash Graham M.D. [address] [place] [phone] Scheduled Procedures Name Priority Associated Diagnoses Date/Ti me VITRECTOMY - PARS PLANA 25 GAUGE Panuveitis Right Necrosis Retinal Acute Right 04/27/2024 10:02 AM CDT documented as of this encounter Visit Diagnoses Diagnosis Necrosis Retinal Acute Right- Primary Panuveitis Right Necrosis Retinal Acute Right documented in this encounter Care Teams Powder Compounder Relationship Specialty Start Date End Date Elsewhere, Pcp PCP - General Internal Medicine 05/29/19 documented as of this encounter
--- OUTSIDE RECORDS SUMMARY | 2024-03-19 17:01 | XMS_ITS | Encounter Summary ---
Author Organization [facility] Address [address] [place] [address] Care Team Providers Care Measuring Machine Tender Name Role Phone Elsewhere, Pcp Primary Care Provider Unavailabl e Encounter Details Date Type Department Care Team (Late st Contact Info) Description 03/14/2024 Orders Only Department of Ophthalmology in [place], [place] [address] [place] [phone] Raffi Boyd M.D. [address] [place] [address] Social History Tobacco Use Types Packs/Day Years Used Date Smoking Tobacco: Light Smoker Cigarettes 0.5 44.1 Started: 02/26/1980 Smokeless Tobacco: Never Comments:On again off again Alcohol Use Standard Drinks/Week Comments Yes 0 (1 standard drink = 0.6 oz pur e alcohol) [facility] Utilities Answer Date Recorded In the past 12 months has [employer], gas, oil, or water company threatened to [...] How often do you attend protestant or samaritan serv ices? Never 06/27/2020 Do you belong [...] medical care, and heating? Somewhat hard 06/27/2020 [facility] of Occupat ional Health - [...] CDT Comprehensive Visit Preoperative Evaluation Center in [place], [place] [address] [place] [address] Prakash Graham M.D. [address] [place] [phone] 04/14/2024 1:30 PM CDT Ancillary Procedure Department of Ophthalmology in [place], [place] [address] [place] [phone] Kenya Garza M.D. [address] [place] [phone] 04/14/2024 2:10 PM CDT Ancillary Procedure Department of Ophthalmology in [place], [place] [address] [place] [phone] Prakash Graham M.D. [address] [place] [phone] 04/14/2024 2:30 PM CDT Office Visit Department of Ophthalmology in [place], [place] [address] [place] [phone] Prakash Graham M.D. [address] [place] [phone] 04/16/2024 12:30 PM CDT Ancillary Procedure Department of Ophthalmology in [place], [place] [address] [place] [phone] Prakash Graham M.D. [address] [place] [phone] 04/16/2024 1:00 PM CDT Ancillary Procedure Department of Ophthalmology in [place], [place] [address] [place] [phone] Kenya Garza M.D. [address] [place] [phone] 04/16/2024 2:00 PM CDT Ancillary Procedure Department of Ophthalmology in [place], [place] [address] [place] [phone] Kenya Garza M.D. [address] [place] [phone] 04/16/2024 2:30 PM CDT Office Visit Department of Ophthalmology in [place], [place] [address] [place] [phone] Kenya Garza M.D. [address] [place] [phone] 04/27/2024 10:02 AM CDT Hospital Encounter [facility] [place] [phone] Prakash Graham M.D. [address] [place] [phone] 04/27/2024 10:02 AM CDT - 04/27/2024 11:45 AM CDT Surgery [facility] [address] [place] [phone] Prakash Graham M.D. [address] [place] [phone] VITRECTOMY - PARS PLANA 25 GAUGE / MEMBRANE PEEL / SILICONE OIL AND ALL ASSOCIATED PROCEDURES RIGHT EYE 04/28/2024 8:00 AM CDT Office Visit Department of Ophthalmology in [place], [place] [address] [place] [phone] Prakash Graham M.D. [address] [place] [phone] 05/05/2024 1:15 PM CDT Ancillary Procedure Department of Ophthalmology in [place], [place] [address] [place] [phone] Prakash Graham M.D. [address] [place] [phone] 05/05/2024 1:45 PM CDT Office Visit Department of Ophthalmology in [place], [place] [address] [place] [phone] Prakash Graham M.D. [address] [place] [phone] 06/02/2024 8:15 AM CDT Ancillary Procedure Department of Ophthalmology in [place], [place] [address] [place] [phone] Prakash Graham M.D. [address] [place] [phone] 06/02/2024 8:45 AM CDT Ancillary Procedure Department of Ophthalmology in [place], [place] [address] [place] [phone] Prakash Graham M.D. [address] [place] [phone] 06/02/2024 9:00 AM CDT Office Visit Department of Ophthalmology in [place], [place] [address] [place] [phone] Prakash Graham M.D. [address] [place] [phone] Scheduled Procedures Name Priority Associated Diagnoses Date/Ti me VITRECTOMY - PARS PLANA 25 GAUGE Panuveitis Right Necrosis Retinal Acute Right 04/27/2024 10:02 AM CDT documented as of this encounter Visit Diagnoses Not on filedocumented in this encounter Care Teams Measuring Machine Tender Relationship Specialty Start Date End Date Elsewhere, Pcp PCP - General Internal Medicine 05/29/19 documented as of this encounter
--- OUTSIDE RECORDS SUMMARY | 2024-03-19 17:01 | XMS_ITS | Encounter Summary ---
Author Organization [facility] Address [address] [place] [address] Care Team Providers Care Insole Tack Puller Hand Name Role Phone Elsewhere, Pcp Primary Care Provider Unavailabl e Encounter Details Date Type Department Care Team (Latest Contact Info) Description 03/13/2024 12:00 PM CDT Ancillary Procedure Department of Ophthalmology in [place], [place] [address] [place] [address] Kenya Garza M.D. [address] [place] [address] Panuveitis Right; Necrosis Retinal Acute Right Social History Tobacco Use Types Packs/Day Years Used Date Smoking Tobacco: Light Smoker Cigarettes 0.5 44.1 Started: 02/26/1980 Smokeless Tobacco: Never Comments:On again off again Alcohol Use Standard Drinks/Week Comments Yes 0 (1 standard drink = 0.6 oz pur e alcohol) [facility] Utilities Answer Date Recorded In the past 12 months has [employer], gas, oil, or water [employer] threatened to shut off services in your home? No 11/05/2023 Social Connection and Isolation Panel [NHANES] A nswer Date Recorded In a typical week, how many times do you talk on the phone with family, friends, or neighbors? Once a week 06/27/2020 How often do you get together with friends or re latives? Never 06/27/2020 How often do you attend lutheran or restorationist serv ices? Never 06/27/2020 Do [...] CDT Comprehensive Visit Preoperative Evaluation Center in [place], [place] [address] [place] [phone] Prakash Graham M.D. [address] [place] [phone] 04/14/2024 1:30 PM CDT Ancillary Procedure Department of Ophthalmology in [place], [place] [address] [place] [phone] Kenya Garza M.D. [address] [place] [phone] 04/14/2024 2:10 PM CDT Ancillary Procedure Department of Ophthalmology in [place], [place] [address] [place] [phone] Prakash Graham M.D. [address] [place] [phone] 04/14/2024 2:30 PM CDT Office Visit Department of Ophthalmology in [place], [place] [address] [place] [phone] Prakash Graham M.D. [address] [place] [phone] 04/16/2024 12:30 PM CDT Ancillary Procedure Department of Ophthalmology in [place], [place] [address] [place] [phone] Prakash Graham M.D. [address] [place] [phone] 04/16/2024 1:00 PM CDT Ancillary Procedure Department of Ophthalmology in [place], [place] [address] [place] [phone] Kenya Garza M.D. [address] [place] [phone] 04/16/2024 2:00 PM CDT Ancillary Procedure Department of Ophthalmology in [place], [place] [address] [place] [phone] Kenya Garza M.D. [address] [place] [phone] 04/16/2024 2:30 PM CDT Office Visit Department of Ophthalmology in [place], [place] [address] [place] [phone] Kenya Garza M.D. [address] [place] [phone] 04/27/2024 10:02 AM CDT Hospital Encounter [facility] [place] [phone] Prakash Graham M.D. [address] [place] [phone] 04/27/2024 10:02 AM CDT - 04/27/2024 11:45 AM CDT Surgery [facility] [address] [place] [phone] Prakash Graham M.D. [address] [place] [phone] VITRECTOMY - PARS PLANA 25 GAUGE / MEMBRANE PEEL / SILICONE OIL AND ALL ASSOCIATED PROCEDURES RIGHT EYE 04/28/2024 8:00 AM CDT Office Visit Department of Ophthalmology in [place], [place] [address] [place] [phone] Prakash Graham M.D. [address] [place] [phone] 05/05/2024 1:15 PM CDT Ancillary Procedure Department of Ophthalmology in [place], [place] [address] [place] [phone] Prakash Graham M.D. [address] [place] [phone] 05/05/2024 1:45 PM CDT Office Visit Department of Ophthalmology in [place], [place] [address] [place] [phone] Prakash Graham M.D. [address] [place] [phone] 06/02/2024 8:15 AM CDT Ancillary Procedure Department of Ophthalmology in [place], [place] [address] [place] [phone] Prakash Graham M.D. [address] [place] [phone] 06/02/2024 8:45 AM CDT Ancillary Procedure Department of Ophthalmology in [place], [place] [address] [place] [phone] Prakash Graham M.D. [address] [place] [phone] 06/02/2024 9:00 AM CDT Office Visit Department of Ophthalmology in [place], [place] [address] [place] [address] Prakash Graham M.D. [address] [place] [address] Scheduled Procedures Name Priority Associated Diagnoses Date/Ti [...] Right documented in this encounter Care Teams Insole Tack Puller Hand Relationship Specialty Start Date End Date Elsewhere, Pcp PCP - General Internal Medicine 05/29/19 documented as of this encounter
--- OUTSIDE RECORDS SUMMARY | 2024-03-19 17:01 | XMS_ITS | Encounter Summary ---
Author Organization [facility] Address [address] [place] [address] Care Team Providers Care Manager Fund Name Role Phone Elsewhere, Pcp Primary Care Provider Unavailabl e Encounter Details Date Type Department Care Team (Late st Contact Info) Description 03/13/2024 Ancillary Procedure Department of Ophthalmology Social History Tobacco Use Types Packs/Day Years Used Date Smoking Tobacco: Light Smoker Cigarettes 0.5 44.1 Started: 02/26/1980 Smokeless Tobacco: Never Comments:On again off again Alcohol Use Standard Drinks/Week Comments Yes 0 (1 standard drink = 0.6 oz pur e alcohol) [facility] Utilities Answer Date Recorded In the past 12 months has th [employer], gas, oil, or water company threatened [...] How often do you attend denominational or buddhist serv ices? Never 06/27/2020 Do you belong [...] medical care, and heating? Somewhat hard 06/27/2020 [facility] - Occupational Stress Questionnaire Answer Date [...] living situation today? I have a [facility] place to live 11/05/2023 Education [...] CDT Comprehensive Visit Preoperative Evaluation Center in [place], [place] [address] [place] [phone] Prakash Graham M.D. [address] [place] [phone] 04/14/2024 1:30 PM CDT Ancillary Procedure Department of Ophthalmology in [place], [place] [address] [place] [phone] Kenya Garza M.D. [address] [place] [phone] 04/14/2024 2:10 PM CDT Ancillary Procedure Department of Ophthalmology in [place], [place] [address] [place] [phone] Prakash Graham M.D. [address] [place] [phone] 04/14/2024 2:30 PM CDT Office Visit Department of Ophthalmology in [address] [phone] Prakash Graham M.D. [address] [place] [phone] 04/16/2024 12:30 PM CDT Ancillary Procedure Department of Ophthalmology in [address] [phone] Prakash Graham M.D. [address] [place] [phone] 04/16/2024 1:00 PM CDT Ancillary Procedure Department of Ophthalmology in [place], [place] [address] [place] [phone] Kenya Garza M.D. [address] [place] [phone] 04/16/2024 2:00 PM CDT Ancillary Procedure Department of Ophthalmology in [place], [place] [address] [place] [phone] Kenya Garza M.D. [address] [place] [phone] 04/16/2024 2:30 PM CDT Office Visit Department of Ophthalmology in [place], [place] [address] [place] [phone] Kenya Garza M.D. [address] [place] [phone] 04/27/2024 10:02 AM CDT Hospital Encounter [facility] [place] [phone] Prakash Graham M.D. [address] [place] [phone] 04/27/2024 10:02 AM CDT - 04/27/2024 11:45 AM CDT Surgery [facility] OR [address] [place] [phone] Prakash Graham M.D. [address] [place] [phone] VITRECTOMY - PARS PLANA 25 GAUGE / MEMBRANE PEEL / SILICONE OIL AND ALL ASSOCIATED PROCEDURES RIGHT EYE 04/28/2024 8:00 AM CDT Office Visit Department of Ophthalmology in [place], [place] [address] [place] [phone] Prakash Graham M.D. [address] [place] [phone] 05/05/2024 1:15 PM CDT Ancillary Procedure Department of Ophthalmology in [place], [place] [address] [place] [phone] Prakash Graham M.D. [address] [place] [phone] 05/05/2024 1:45 PM CDT Office Visit Department of Ophthalmology in [place], [place] [address] [place] [phone] Prakash Graham M.D. [address] [place] [phone] 06/02/2024 8:15 AM CDT Ancillary Procedure Department of Ophthalmology in [place], [place] [address] [place] [phone] Prakash Graham M.D. [address] [place] [phone] 06/02/2024 8:45 AM CDT Ancillary Procedure Department of Ophthalmology in [address] [phone] Prakash Graham M.D. [address] [place] [phone] 06/02/2024 9:00 AM CDT Office Visit Department of Ophthalmology in [place], [place] [address] [place] [phone] Prakash Graham M.D. [address] [place] [phone] Scheduled Procedures Name Priority Associated Diagnoses Date/Ti me VITRECTOMY - PARS PLANA GAUGE Panuveitis Right Necrosis Retinal Acute Right 04/27/2024 10:02 AM CDT documented as of this encounter Visit Diagnoses Not on filedocumented in this encounter Care Teams Manager Fund Relationship Specialty Start Date End Date Elsewhere, Pcp PCP - General Internal Medicine 05/29/19 documented as of this encounter
--- OUTSIDE RECORDS SUMMARY | 2024-03-19 17:01 | XMS_ITS | Encounter Summary ---
Author Organization [facility] Address [address] [place] [address] Care Team Providers Care Exchange Operator Name Role Phone Elsewhere, Pcp Primary Care Provider Unavailabl e Reason for Referral * Outpatient (Routine) - Authorized Specialty Diagnoses / Procedures Referred By Contac t Referred To Contact Ophthalmology Prakash Graham M.D. 200 [place] [address] [facility] Referral ID Status Reason Start Date Expiration Date V isits Requested Visits Authorized [id number] Authorized 03/13/2024 09/12/2025 1 1 Scheduling Instructions 1 MO PO Right Eye, DILATE / OCT OU * Outpatient (Routine) - Authorized Specialty Diagnoses / Procedures Referred By Contac t Referred To Contact Ophthalmology Prakash Graham M.D. 200 [place] [address] [facility] Referral ID Status Reason Start Date Expiration Date V isits Requested Visits Authorized [id number] Authorized 03/13/2024 09/12/2025 1 1 Scheduling Instructions 1 WK PO Right Eye, DILATE OD * Outpatient (Routine) - Authorized Specialty Diagnoses / Procedures Referred By Contac t Referred To Contact Ophthalmology Prakash Graham M.D. [address] [place] [address] [facility] Referral ID Status Reason Start Date Expiration Date V isits Requested Visits Authorized [id number] Authorized 03/13/2024 09/12/2025 1 1 Scheduling Instructions 1 DAY PO Right Eye * Outpatient (Routine) - Authorized Specialty Diagnoses / Procedures Referred By Apolinar lopez Referred To Contact Anesthesiology Diagnoses Panuveitis Right Necrosis Retinal Acute Right Prakash Graham M.D. [address] [place] [address] [facility] Referral ID Status Reason Start Date Expiration Date V isits Requested Visits Authorized [id number] Authorized 03/13/2024 09/12/2025 1 1 * Outpatient (Routine) - Canceled Specialty Diagnoses / Procedures Referred By Apolinar lopez Referred To Contact Diagnoses Panuveitis Right Necrosis Retinal Acute Right Procedures Intravitreal Injection, Pharmacologic Agent - OD - Right Eye Prakash Graham M.D. [address] [place] [address] [facility] Referral ID Status Reason Start Date Expiration Date V isits Requested Visits Authorized [id number] Canceled 03/13/2024 03/13/2025 1 1 Encounter Details Date Type Department Care Team (Latest Contact Info) Description 03/13/2024 1:00 PM CDT Office Visit Department of Ophthalmology in [place], [place] [address] [place] [phone] Prakash Graham M.D. [address] [place] [phone] Panuveitis Right (Primary Dx); Necrosis Retinal Acute Right Social History Tobacco Use Types Packs/Day Years Used Date Smoking Tobacco: Light Smoker Cigarettes 0.5 44.1 Started: 02/26/1980 Smokeless Tobacco: Never Comments:On again off again Alcohol Use Standard Drinks/Week Comments Yes 0 (1 standard drink = 0.6 oz pur e alcohol) [facility] Utilities Answer Date Recorded In the [...] Never 06/27/2020 How often do you attend mormonism or buddhism serv ices? Never 06/27/2020 Do you belong to any clubs o r organizations such as mormonism groups, unions, fraternal or athletic groups, or [...] medical care, and heating? Somewhat hard 06/27/2020 [facility] - Occupational [...] your living situation today? I have a [facility] place to live 11/05/2023 Education Answer [...] Notes * Prakash Graham M.D. 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, right eye PCR positive (11/05/23) Status post intravit foscarnet On PO valtrex TID PO pred 10mg currently # Chronic lymphocytic leukemia/SLL (2017) Untreated # Cataracts, both eyes # Chronic obstructive pulmonary disease # History of coronary artery disease status post CABG x 4 (2000) and PCI to RCA (2015) # History of type 2 diabetes mellitus # Proliferative vitreoretinopathy, right eye # Ciliary body detachment, right eye # Hypotony maculopathy, right eye Retina is attached Anterior loop contraction leading to hypotony with subsequent maculopathy Will trial cryoretinopexy, but will likely need PPV/MP/membrane lysis/SO to improve hypotony Prednisone should be increased temporarily to 40 mg per day and then tapered back down to 10mg eachweek Keep PO valacyclovir 1 g TID. Durezol should continue twice daily in the right eye for now. Recheck in 4 weeks, tentatively hold PPV/MP/SO OD 04/27/24 documented in this encounter Miscellaneous Notes * Addendum Note - Jean Claude Rodriguez, C.O.A. - 03/13/2024 1:00 PM CDTAddended by: JEAN CLAUDE RODRIGUEZ on: 03/13/2024 05:45 PM Modules accepted: Orders documented in this encounter Plan of Treatment Upcoming Encounters Date Type Department Care Team (Latest Contact Info) Description 04/14/2024 11:00 AM CDT Comprehensive Visit Preoperative Evaluation Center in [place], [place] [address] [place] [phone] Prakash Graham M.D. [address] [place] [phone] 04/14/2024 1:30 PM CDT Ancillary Procedure Department of Ophthalmology in [place], [place] [address] [place] [phone] Kenya Garza M.D. [address] [place] [phone] 04/14/2024 2:10 PM CDT Ancillary Procedure Department of Ophthalmology in [place], [place] [address] [place] [phone] Prakash Graham M.D. [address] [place] [phone] 04/14/2024 2:30 PM CDT Office Visit Department of Ophthalmology in [place], [place] [address] [place] [phone] Prakash Graham M.D. [address] [place] [phone] 04/16/2024 12:30 PM CDT Ancillary Procedure Department of Ophthalmology in [place], [place] [address] [place] [phone] Prakash Graham M.D. [address] [place] [phone] 04/16/2024 1:00 PM CDT Ancillary Procedure Department of Ophthalmology in [place], [place] [address] [place] [phone] Kenya Garza M.D. [address] [place] [phone] 04/16/2024 2:00 PM CDT Ancillary Procedure Department of Ophthalmology in [place], [place] [address] [place] [phone] Kenya Garza M.D. [address] [place] [phone] 04/16/2024 2:30 PM CDT Office Visit Department of Ophthalmology in [place], [place] [address] [place] [phone] Kenya Garza M.D. [address] [place] [phone] 04/27/2024 10:02 AM CDT Hospital Encounter [facility] [address] [place] [phone] Prakash Graham M.D. [address] [place] [phone] 04/27/2024 10:02 AM CDT - 04/27/2024 11:45 AM CDT Surgery [facility] [address] [place] [phone] Prakash Graham M.D. [address] [place] [phone] VITRECTOMY - PARS PLANA 25 GAUGE / MEMBRANE PEEL / SILICONE OIL AND ALL ASSOCIATED PROCEDURES RIGHT EYE 04/28/2024 8:00 AM CDT Office Visit Department of Ophthalmology in [place], [place] [address] [place] [phone] Prakash Graham M.D. [address] [place] [phone] 05/05/2024 1:15 PM CDT Ancillary Procedure Department of Ophthalmology in [place], [place] [address] [place] [phone] Prakash Graham M.D. [address] [place] [phone] 05/05/2024 1:45 PM CDT Office Visit Department of Ophthalmology in [place], [place] [address] [place] [phone] Prakash Graham M.D. [address] [place] [phone] 06/02/2024 8:15 AM CDT Ancillary Procedure Department of Ophthalmology in [place], [place] [address] [place] [phone] Prakash Graham M.D. [address] [place] [phone] 06/02/2024 8:45 AM CDT Ancillary Procedure Department of Ophthalmology in [place], [place] [address] [place] [phone] Prakash Graham M.D. [address] [place] [phone] 06/02/2024 9:00 AM CDT Office Visit Department of Ophthalmology in [place], [place] [address] [place] [phone] Prakash Graham M.D. [address] [place] [phone] Scheduled Orders Name Type Priority Associated Diagnoses Orde r Schedule Optical Coherence Tomography - Macula/Retina - OU - Both Eyes Ophthalmology Routine Panuveitis Right Necrosis Retinal Acute Right Expected: 06/02/2024, Expires: 06/13/2025 Scheduled Procedures Name Priority Associated Diagnoses Date/Ti me VITRECTOMY - PARS PLANA 25 GAUGE Panuveitis Right Necrosis Retinal Acute Right 04/27/2024 10:02 AM CDT Scheduled Referrals Name Type Priority Associated Diagnoses Order Schedule Preoperative Evaluation [facility] consult (clinic) Outpatient Referral Routine Panuveitis Right Necrosis Retinal Acute Right Expected: 03/13/2024 (Approximate), Expires: 03/13/2027 Ophthalmology Post Op (clinic) Outpatient Referral Routine Expected: 04/28/2024, Expires: 06/13/2025 Ophthalmology Post Op (clinic) Outpatient Referral Routine Expected: 05/05/2024 (Approximate), Expires: 06/13/2025 Ophthalmology Post Op (clinic) Outpatient Referral Routine Expected: 06/02/2024 (Approximate), Expires: 06/13/2025 documented as of this encounter Visit Diagnoses Diagnosis Panuveitis Right- Primary Necrosis Retinal Acute Right Panuveitis Right Necrosis Retinal Acute Right Panuveitis Right Necrosis Retinal Acute Right documented in this encounter Care Teams Exchange Operator Relationship Specialty Start Date End Date Elsewhere, Pcp PCP - General Internal Medicine 05/29/19 documented as of this encounter
--- OUTSIDE RECORDS SUMMARY | 2024-03-19 17:02 | XMS_ITS | Encounter Summary ---
Author Organization [facility] Address [address] [place] [address] Care Team Providers Care Supervisor General Name Role Phone Elsewhere, Pcp Primary Care [...] Recorded In the past 12 months has [employer], gas, oil, or water company threatened [...] How often do you attend confucianism or episcopal serv ices? Never 06/27/2020 Do you belong [...] medical care, and heating? Somewhat hard 06/27/2020 [facility] - Occupational [...] your living situation today? I have a [facility] place to live 11/05/2023 Education [...] CDT Comprehensive Visit Preoperative Evaluation Center in [place], [place] [address] [place] [phone] Prakash Graham M.D. [address] [place] [phone] 04/14/2024 1:30 PM CDT Ancillary Procedure Department of Ophthalmology in [address] [phone] Kenya Garza M.D. [address] [place] [phone] 04/14/2024 2:10 PM CDT Ancillary Procedure Department of Ophthalmology in [address] [phone] Prakash Graham M.D. [address] [place] [phone] 04/14/2024 2:30 PM CDT Office Visit Department of Ophthalmology in [address] [phone] Prakash Graham M.D. [address] [place] [phone] 04/16/2024 12:30 PM CDT Ancillary Procedure Department of Ophthalmology in [address] [phone] Prakash Graham M.D. [address] [place] [phone] 04/16/2024 1:00 PM CDT Ancillary Procedure Department of Ophthalmology in [place], [place] [address] [place] [phone] Kenya Garza M.D. [address] [place] [phone] 04/16/2024 2:00 PM CDT Ancillary Procedure Department of Ophthalmology in [place], [place] [address] [place] [phone] Kenya Garza M.D. [address] [place] [phone] 04/16/2024 2:30 PM CDT Office Visit Department of Ophthalmology in [place], [place] [address] [place] [phone] Kenya Garza M.D. [address] [place] [phone] 04/27/2024 10:02 AM CDT Hospital Encounter [facility] [address] [place] [phone] Prakash Graham M.D. [address] [place] [phone] 04/27/2024 10:02 AM CDT - 04/27/2024 11:45 AM CDT Surgery [facility] OR [facility] [address] [place] [phone] Prakash Graham M.D. [address] [place] [phone] VITRECTOMY - PARS PLANA 25 GAUGE / MEMBRANE PEEL / SILICONE OIL AND ALL ASSOCIATED PROCEDURES RIGHT EYE 04/28/2024 8:00 AM CDT Office Visit Department of Ophthalmology in [place], [place] [address] [place] [phone] Prakash Graham M.D. [address] [place] [phone] 05/05/2024 1:15 PM CDT Ancillary Procedure Department of Ophthalmology in [place], [place] [address] [place] [phone] Prakash Graham M.D. [address] [place] [phone] 05/05/2024 1:45 PM CDT Office Visit Department of Ophthalmology in [place], [place] [address] [place] [phone] Prakash Graham M.D. [address] [place] [phone] 06/02/2024 8:15 AM CDT Ancillary Procedure Department of Ophthalmology in [place], [place] [address] [place] [phone] Prakash Graham M.D. [address] [place] [phone] 06/02/2024 8:45 AM CDT Ancillary Procedure Department of Ophthalmology in [address] [phone] Prakash Graham M.D. [address] [place] [phone] 06/02/2024 9:00 AM CDT Office Visit Department of Ophthalmology in [address] [phone] Prakash Graham M.D. [address] [place] [phone] Scheduled Procedures Name Priority Associated Diagnoses Date/Ti me VITRECTOMY - PARS PLANA 25 GAUGE Panuveitis Right Necrosis Retinal Acute Right 04/27/2024 10:02 AM CDT documented as of this encounter Procedures Procedure Name Priority Date/Time Associated Diagnosis Comments OPHTHALMOLOGY IMAGE EXAM Routine 02/20/2024 12:05 AM CDT documented in this encounter Results * Eyes US-Eye L-Fyij-Vwcumzditwshs Image Exam (02/20/2024 12:05 AM CDT) Narrative [...] on filedocumented in this encounter Care Teams Supervisor General Relationship Specialty Start Date End Date Elsewhere, Pcp PCP - General Internal Medicine 05/29/19 documented as of this encounter
--- OUTSIDE RECORDS SUMMARY | 2024-03-19 17:02 | XMS_ITS | Encounter Summary ---
Author Organization [facility] Address [address] [place] [address] Care Team Providers Care Feed Research Technician Name Role Phone Elsewhere, Pcp Primary Care Provider Unavailabl e Encounter Details Date Type Department Care Team (Latest Contact Info) Description 02/20/2024 10:00 AM CDT Ancillary Procedure Department of Ophthalmology in [place], [place] [address] [place] [address] Kenya Garza M.D. [address] [place] [phone] Panuveitis Right; Necrosis Retinal Acute Right Social History Tobacco Use Types Packs/Day Years Used Date Smoking Tobacco: Light Smoker Cigarettes 0.5 44.1 Started: 02/26/1980 Smokeless Tobacco: Never Comments:On again off again Alcohol Use Standard Drinks/Week Comments Yes 0 (1 standard drink = 0.6 oz pur e alcohol) [facility] Utilities Answer Date Recorded In the past 12 months has [employer], gas, oil, or water [employer] threatened to shut off services in your home? No 11/05/2023 Social Connection and Isolation Panel [NHANES] A nswer Date Recorded In a typical week, how many times do you talk on the phone with family, friends, or neighbors? Once a week 06/27/2020 How often do you get together with friends or re latives? Never 06/27/2020 How often do you attend adventist or methodist serv ices? Never 06/27/2020 Do [...] medical care, and heating? Somewhat hard 06/27/2020 [facility] - Occupational [...] your living situation today? I have a [facility] place to live 11/05/2023 Education Answer [...] CDT Comprehensive Visit Preoperative Evaluation Center in [place], [place] [address] [place] [phone] Prakash Graham M.D. [address] [place] [phone] 04/14/2024 1:30 PM CDT Ancillary Procedure Department of Ophthalmology in [place], [place] [address] [place] [phone] Kenya Garza M.D. [address] [place] [phone] 04/14/2024 2:10 PM CDT Ancillary Procedure Department of Ophthalmology in [place], [place] [address] [place] [phone] Prakash Graham M.D. [address] [place] [phone] 04/14/2024 2:30 PM CDT Office Visit Department of Ophthalmology in [place], [place] [address] [place] [phone] Prakash Graham M.D. [address] [place] [phone] 04/16/2024 12:30 PM CDT Ancillary Procedure Department of Ophthalmology in [place], [place] [address] [place] [phone] Prakash Graham M.D. [address] [place] [phone] 04/16/2024 1:00 PM CDT Ancillary Procedure Department of Ophthalmology in [place], [place] [address] [place] [phone] Kenya Garza M.D. [address] [place] [phone] 04/16/2024 2:00 PM CDT Ancillary Procedure Department of Ophthalmology in [place], [place] [address] [place] [phone] Kenya Garza M.D. [address] [place] [phone] 04/16/2024 2:30 PM CDT Office Visit Department of Ophthalmology in [place], [place] [address] [place] [phone] Kenya Garza M.D. [address] [place] [phone] 04/27/2024 10:02 AM CDT Hospital Encounter [facility] OR [facility] [place] [phone] Prakash Graham M.D. [address] [place] [phone] 04/27/2024 10:02 AM CDT - 04/27/2024 11:45 AM CDT Surgery [facility] OR [facility] [address] [place] [phone] Prakash Graham M.D. [address] [place] [phone] VITRECTOMY - PARS PLANA 25 GAUGE / MEMBRANE PEEL / SILICONE OIL AND ALL ASSOCIATED PROCEDURES RIGHT EYE 04/28/2024 8:00 AM CDT Office Visit Department of Ophthalmology in [place], [place] [address] [place] [phone] Prakash Graham M.D. [address] [place] [phone] 05/05/2024 1:15 PM CDT Ancillary Procedure Department of Ophthalmology in [place], [place] [address] [place] [phone] Prakash Graham M.D. [address] [place] [phone] 05/05/2024 1:45 PM CDT Office Visit Department of Ophthalmology in [place], [place] [address] [place] [phone] Prakash Graham M.D. [address] [place] [phone] 06/02/2024 8:15 AM CDT Ancillary Procedure Department of Ophthalmology in [place], [place] [address] [place] [phone] Prakash Graham M.D. [address] [place] [phone] 06/02/2024 8:45 AM CDT Ancillary Procedure Department of Ophthalmology in [place], [place] [address] [place] [phone] Prakash Graham M.D. [address] [place] [phone] 06/02/2024 9:00 AM CDT Office Visit Department of Ophthalmology in [place], [place] [address] [place] [phone] Prakash Graham M.D. [address] [place] [phone] Scheduled Procedures Name Priority Associated Diagnoses Date/Ti [...] Right documented in this encounter Care Teams Feed Research Technician Relationship Specialty Start Date End Date Elsewhere, Pcp PCP - General Internal Medicine 05/29/19 documented as of this encounter
--- OUTSIDE RECORDS SUMMARY | 2024-03-19 17:02 | XMS_ITS | Encounter Summary ---
Author Organization [facility] Address [address] [place] [address] Care Team Providers Care Validation Architect Name Role Phone Elsewhere, Pcp Primary Care Provider Unavailabl e Reason for Referral * Outpatient (Routine) - Closed Specialty Diagnoses / Procedures Referred By Contac t Referred To Contact Neurology Piter Baez M.D. [address] [place] [address] [facility] Referral ID Status Reason Start Date Expiration Date Visits Re quested Visits Authorized [id number] Closed 02/20/2024 08/21/2025 1 1 Reason for Visit * Outpatient (Routine) - Closed Specialty Diagnoses / Procedures Referred By Contac t Referred To Contact Neurology Diagnoses Posterior Reversible Encephalopathy Syndrome Katerine Bashir M.D. [address] [place] [address] [facility] Referral ID Status Reason Start Date Expiration Date Visits Re quested Visits Authorized [id number] Closed 01/20/2024 07/21/2025 1 1 Encounter Details Date Type Department Care Team (Latest Contact Info) Description 02/20/2024 1:00 PM CDT Comprehensive Visit Department of Neurology in [place], [place] [address] [place] [phone] Piter Baez M.D. [address] [place] [phone] Posterior Reversible Encephalopathy Syndrome Social History Tobacco Use Types Packs/Day Years Used Date Smoking Tobacco: Light Smoker Cigarettes 0.5 44.1 Started: 02/26/1980 Smokeless Tobacco: Never Comments:On again off again Alcohol Use Standard Drinks/Week Comments Yes 0 (1 standard drink = 0.6 oz pur e alcohol) [facility] Utilities Answer Date Recorded In [...] Never 06/27/2020 How often do you attend latter-day or episcopal serv ices? Never 06/27/2020 Do you belong to any clubs o r organizations such as latter-day groups, unions, fraternal or athletic groups, or [...] care, and heating? Somewhat hard 06/27/2020 [facility] - Occupational Stress [...] your living situation today? I have a [facility] place to live 11/05/2023 Education [...] . Referring provider: Katerine Bashir M.D. [address] [place] [address] HISTORY OF PRESENT ILLNESS Pleasant 68-year-old right-handed woman accompanied by her who is referred by her PCP for an initial neurology evaluation regarding recent hospitalization elsewhere for PRES. She gets her ophthalmology care at [place] by Dr. 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 She gets all of her care for other medical conditions in [place] and I do not have access to [facility] these records. Potentially relevant past medical issues include a mercury cell cleaner treating her with methotrexate for ???itchy bumps?? 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 [...] her care here rather thanreturning to the [facility]. We have scheduled an MRI [...] CDT Comprehensive Visit Preoperative Evaluation Center in [place], [place] [address] [place] [address] Prakash Graham M.D. [address] [place] [phone] 04/14/2024 1:30 PM CDT Ancillary Procedure Department of Ophthalmology in [place], [place] [address] [place] [phone] Kenya Garza M.D. [address] [place] [phone] 04/14/2024 2:10 PM CDT Ancillary Procedure Department of Ophthalmology in [place], [place] [address] [place] [phone] Prakash Graham M.D. [address] [place] [phone] 04/14/2024 2:30 PM CDT Office Visit Department of Ophthalmology in [place], [place] [address] [place] [phone] Prakash Graham M.D. [address] [place] [phone] 04/16/2024 12:30 PM CDT Ancillary Procedure Department of Ophthalmology in [place], [place] [address] [place] [phone] Prakash Graham M.D. [address] [place] [phone] 04/16/2024 1:00 PM CDT Ancillary Procedure Department of Ophthalmology in [place], [place] [address] [place] [phone] Kenya Garza M.D. [address] [place] [phone] 04/16/2024 2:00 PM CDT Ancillary Procedure Department of Ophthalmology in [place], [place] [address] [place] [phone] Kenya Garza M.D. [address] [place] [phone] 04/16/2024 2:30 PM CDT Office Visit Department of Ophthalmology in [place], [place] [address] [place] [phone] Kenya Garza M.D. [address] [place] [phone] 04/27/2024 10:02 AM CDT Hospital Encounter [facility] OR [facility] [place] [phone] Prakash Graham M.D. [address] [place] [phone] 04/27/2024 10:02 AM CDT - 04/27/2024 11:45 AM CDT Surgery [facility] OR [facility] [place] [phone] Prakash Graham M.D. [address] [place] [phone] VITRECTOMY - PARS PLANA 25 GAUGE / MEMBRANE PEEL / SILICONE OIL AND ALL ASSOCIATED PROCEDURES RIGHT EYE 04/28/2024 8:00 AM CDT Office Visit Department of Ophthalmology in [place], [place] [address] [place] [phone] Prakash Graham M.D. [address] [place] [phone] 05/05/2024 1:15 PM CDT Ancillary Procedure Department of Ophthalmology in [place], [place] [address] [place] [phone] Prakash Graham M.D. [address] [place] [phone] 05/05/2024 1:45 PM CDT Office Visit Department of Ophthalmology in [place], [place] [address] [place] [phone] Prakash Graham M.D. [address] [place] [phone] 06/02/2024 8:15 AM CDT Ancillary Procedure Department of Ophthalmology in [place], [place] [address] [place] [phone] Prakash Graham M.D. [address] [place] [phone] 06/02/2024 8:45 AM CDT Ancillary Procedure Department of Ophthalmology in [place], [place] [address] [place] [phone] Prakash Graham M.D. [address] [place] [phone] 06/02/2024 9:00 AM CDT Office Visit Department of Ophthalmology in [place], [place] [address] [place] [phone] Prakash Graham M.D. [address] [place] [phone] Scheduled Procedures Name Priority Associated Diagnoses Date/Ti ky VITRECTOMY - PARS PLANA 25 GAUGE Panuveitis Right Necrosis Retinal Acute Right 04/27/2024 10:02 AM CDT Scheduled Referrals Name Type Priority Associated Diagnoses Orde r Schedule Neurology office visit (clinic) Outpatient Referral Routine Expected: 02/25/2024, Expires: 05/21/2025 documented as of this encounter Visit Diagnoses Diagnosis Posterior Reversible Encephalopathy Syndrome Panuveitis Right Necrosis Retinal Acute Right documented in this encounter Care Teams Validation Architect Relationship Specialty Start Date End Date Elsewhere, Pcp PCP - General Internal Medicine 05/29/19 documented as of this encounter
--- OUTSIDE RECORDS SUMMARY | 2024-03-19 17:02 | XMS_ITS | Encounter Summary ---
Author Organization [facility] Address [address] [place] [address] Care Team Providers Care Videotape Editor Name Role Phone Elsewhere, Pcp Primary Care Provider Unavailabl e Reason for Referral * MRI/CAT/PET Scan (Routine) - Closed Specialty Diagnoses / Procedures Referred By Apolinar lopez Referred To Contact Radiology Diagnoses Posterior Reversible Encephalopathy Syndrome Procedures MR Brain without and with IV Contrast Piter Baez M.D. [address] [place] [phone] [facility] Referral ID Status Reason Start Date Expiration Date Visits Re quested Visits Authorized [id number] Closed 02/03/2024 10/27/2024 1 1 Reason for Visit * Reason Onset Date Comments Pre-visit Testing Orders 01/31/2024 Encounter Details Date Type Department Care Team (Latest Contact Info) Description 01/31/2024 Clinical Communication Department of Neurology in [place], [place] [address] [place] [phone] Piter Baez M.D. [address] [place] [phone] Pre-visit Testing Orders Social History Tobacco Use Types Packs/Day Years Used Date Smoking Tobacco: Light Smoker Cigarettes 0.5 44.1 Started: 02/26/1980 Smokeless Tobacco: Never Comments:On again off again Alcohol Use Standard Drinks/Week Comments Yes 0 (1 standard drink = 0.6 oz pur e alcohol) [facility] Utilities Answer Date Recorded In the past 12 months has th e electric, gas, oil, or water [employer] threatened to shut off services in your home? No 11/05/2023 Social Connection and Isolation Panel [NHANES] A nswer Date Recorded In a typical week, how many times do you talk on the phone with family, friends, or neighbors? Once a week 06/27/2020 How often do you get together with friends or re latives? Never 06/27/2020 How often do you attend anabaptism or yazdanism serv ices? Never 06/27/2020 Do you belong to any clubs o r organizations such as anabaptism groups, unions, fraternal or athletic groups, or [...] medical care, and heating? Somewhat hard 06/27/2020 [facility]at ional [facility] - Occupational Stress Questionnaire Answer Date [...] CDT Comprehensive Visit Preoperative Evaluation Center in [place], [place] [address] [place] [phone] Prakash Graham M.D. [address] [place] [phone] 04/14/2024 1:30 PM CDT Ancillary Procedure Department of Ophthalmology in [place], [place] [address] [place] [phone] Kenya Garza M.D. [address] [place] [phone] 04/14/2024 2:10 PM CDT Ancillary Procedure Department of Ophthalmology in [place], [place] [address] [place] [phone] Prakash Graham M.D. [address] [place] [phone] 04/14/2024 2:30 PM CDT Office Visit Department of Ophthalmology in [place], [place] [address] [place] [phone] Prakash Graham M.D. [address] [place] [phone] 04/16/2024 12:30 PM CDT Ancillary Procedure Department of Ophthalmology in [place], [place] [address] [place] [phone] Prakash Graham M.D. [address] [place] [phone] 04/16/2024 1:00 PM CDT Ancillary Procedure Department of Ophthalmology in [place], [place] [address] [place] [phone] Kenya Garza M.D. [address] [place] [phone] 04/16/2024 2:00 PM CDT Ancillary Procedure Department of Ophthalmology in [place], [place] [address] [place] [phone] Kenya Garza M.D. [address] [place] [phone] 04/16/2024 2:30 PM CDT Office Visit Department of Ophthalmology in [place], [place] [address] [place] [phone] Kenya Garza M.D. [address] [place] [phone] 04/27/2024 10:02 AM CDT Hospital Encounter [facility] [place] [address] [place] [phone] Prakash Graham M.D. [address] [place] [phone] 04/27/2024 10:02 AM CDT - 04/27/2024 11:45 AM CDT Surgery [facility] [place] [address] [place] [phone] Prakash Graham M.D. [address] [place] [phone] VITRECTOMY - PARS PLANA 25 GAUGE / MEMBRANE PEEL / SILICONE OIL AND ALL ASSOCIATED PROCEDURES RIGHT EYE 04/28/2024 8:00 AM CDT Office Visit Department of Ophthalmology in [place], [place] [address] [place] [phone] Prakash Graham M.D. [address] [place] [phone] 05/05/2024 1:15 PM CDT Ancillary Procedure Department of Ophthalmology in [place], [place] [address] [place] [phone] Prakash Graham M.D. [address] [place] [phone] 05/05/2024 1:45 PM CDT Office Visit Department of Ophthalmology in [place], [place] [address] [place] [phone] Prakash Graham M.D. [address] [place] [phone] 06/02/2024 8:15 AM CDT Ancillary Procedure Department of Ophthalmology in [place], [place] [address] [place] [phone] Prakash Graham M.D. [address] [place] [phone] 06/02/2024 8:45 AM CDT Ancillary Procedure Department of Ophthalmology in [place], [place] [address] [place] [address] Prakash Graham M.D. [address] [place] [phone] 06/02/2024 9:00 AM CDT Office Visit Department of Ophthalmology in [place], [place] [address] [place] [phone] Prakash Graham M.D. [address] [place] [phone] Scheduled Procedures Name Priority Associated Diagnoses Date/Ti me VITRECTOMY - PARS PLANA 25 GAUGE Panuveitis Right Necrosis Retinal Acute Right 04/27/2024 10:02 AM CDT documented as of this encounter Results * MR Brain without and with IV Contrast (02/20/2024 4:08 PM CDT) Anatomical Region Laterality Modality Head, Brain, Neuroradiology [facility], [facility]iology [facility] N/A Magnetic Resonance Impressions 02/21/2024 8:07 [...] findings. Nothing for PRES. Piter Baez M.D. 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
--- OUTSIDE RECORDS SUMMARY | 2024-03-19 17:02 | XMS_ITS | Encounter Summary ---
Author Organization [facility] Address [address] [place] [address] Care Team Providers Care Information Assurance Specialist Name Role Phone Elsewhere, Pcp Primary [...] drink = 0.6 oz pur e alcohol) [facility] Utilities Answer Date Recorded In the past 12 months has th [employer] electric, gas, oil, or water company threatened [...] How often do you attend gnosticism or anabaptism serv ices? Never 06/27/2020 Do [...] medical care, and heating? Somewhat hard 06/27/2020 [facility] of Occupat ional [facility] - Occupational Stress Questionnaire Answer Date Recorded [...] CDT Comprehensive Visit Preoperative Evaluation Center in [place], [place] [address] [place] [phone] Prakash Graham M.D. [address] [place] [phone] 04/14/2024 1:30 PM CDT Ancillary Procedure Department of Ophthalmology in [place], [place] [address] [place] [phone] Kenya Garza M.D. [address] [place] [phone] 04/14/2024 2:10 PM CDT Ancillary Procedure Department of Ophthalmology in [place], [place] [address] [place] [phone] Prakash Graham M.D. [address] [place] [phone] 04/14/2024 2:30 PM CDT Office Visit Department of Ophthalmology in [address] [phone] Prakash Graham M.D. [address] [place] [phone] 04/16/2024 12:30 PM CDT Ancillary Procedure Department of Ophthalmology in [address] [phone] Prakash Graham M.D. [address] [place] [phone] 04/16/2024 1:00 PM CDT Ancillary Procedure Department of Ophthalmology in [place], [place] [address] [place] [phone] Kenya Garza M.D. [address] [place] [phone] 04/16/2024 2:00 PM CDT Ancillary Procedure Department of Ophthalmology in [place], [place] [address] [place] [phone] Kenya Garza M.D. [address] [place] [phone] 04/16/2024 2:30 PM CDT Office Visit Department of Ophthalmology in [place], [place] [address] [place] [phone] Kenya Garza M.D. [address] [place] [phone] 04/27/2024 10:02 AM CDT Hospital Encounter [facility] [address] [place] [phone] Prakash Graham M.D. [address] [place] [phone] 04/27/2024 10:02 AM CDT - 04/27/2024 11:45 AM CDT Surgery [facility] OR [address] [place] [phone] Prakash Graham M.D. [address] [place] [phone] VITRECTOMY - PARS PLANA 25 GAUGE / MEMBRANE PEEL / SILICONE OIL AND ALL ASSOCIATED PROCEDURES RIGHT EYE 04/28/2024 8:00 AM CDT Office Visit Department of Ophthalmology in [place], [place] [address] [place] [phone] Prakash Graham M.D. [address] [place] [phone] 05/05/2024 1:15 PM CDT Ancillary Procedure Department of Ophthalmology in [place], [place] [address] [place] [phone] Prakash Graham M.D. [address] [place] [phone] 05/05/2024 1:45 PM CDT Office Visit Department of Ophthalmology in [place], [place] [address] [place] [phone] Prakash Graham M.D. [address] [place] [phone] 06/02/2024 8:15 AM CDT Ancillary Procedure Department of Ophthalmology in [place], [place] [address] [place] [phone] Prakash Graham M.D. [address] [place] [phone] 06/02/2024 8:45 AM CDT Ancillary Procedure Department of Ophthalmology in [address] [phone] Prakash Graham M.D. [address] [place] [phone] 06/02/2024 9:00 AM CDT Office Visit Department of Ophthalmology in [place], [place] [address] [place] [phone] Prakash Graham M.D. [address] [place] [phone] Scheduled Procedures Name Priority Associated Diagnoses Date/Ti me VITRECTOMY - PARS PLANA GAUGE Panuveitis Right Necrosis Retinal Acute Right 04/27/2024 10:02 AM CDT documented as of this encounter Procedures Procedure Name Priority Date/Time Associated Diagnosis Comments OPHTHALMOLOGY IMAGE EXAM Routine 02/20/2024 12:00 AM CDT documented in this encounter Results * Video-Eyes US-Eye C-Dhyl-Ywttwakxklsee Image Exam (02/20/2024 12:00 AM CDT) Narrative [...] on filedocumented in this encounter Care Teams Information Assurance Specialist Relationship Specialty Start Date End Date Elsewhere, Pcp PCP - General Internal Medicine 05/29/19 documented as of this encounter
--- OUTSIDE RECORDS SUMMARY | 2024-03-19 17:02 | XMS_ITS | Encounter Summary ---
Author Organization [facility] Address [address] [place] [address] Care Team Providers Care Train Engineer Name Role Phone Elsewhere, Pcp Primary Care Provider Unavailabl e Encounter Details Date Type Department Care Team (Latest Contact Info) Description 02/20/2024 9:50 AM CDT Ancillary Procedure Department of Ophthalmology in [place], [place] [address] [place] [address] Kenya Garza M.D. [address] [place] [address] Panuveitis Right; Necrosis Retinal Acute Right Social History Tobacco Use Types Packs/Day Years Used Date Smoking Tobacco: Light Smoker Cigarettes 0.5 44.1 Started: 02/26/1980 Smokeless Tobacco: Never Comments:On again off again Alcohol Use Standard Drinks/Week Comments Yes 0 (1 standard drink = 0.6 oz pur e alcohol) [facility] Utilities Answer Date Recorded In the past 12 months has [employer] gas, oil, or water [employer] threatened to shut off services in your home? No 11/05/2023 Social Connection and Isolation Panel [NHANES] A nswer Date Recorded In a typical week, how many times do you talk on the phone with family, friends, or neighbors? Once a week 06/27/2020 How often do you get together with friends or re latives? Never 06/27/2020 How often do you attend amish or yazidism serv ices? Never 06/27/2020 Do you belong [...] medical care, and heating? Somewhat hard 06/27/2020 [facility] - Occupational [...] your living situation today? [facility] 11/05/2023 Education Answer [...] CDT Comprehensive Visit Preoperative Evaluation Center in [place], [place] [address] [place] [phone] Prakash Graham M.D. [address] [place] [phone] 04/14/2024 1:30 PM CDT Ancillary Procedure Department of Ophthalmology in [place], [place] [address] [place] [phone] Kenya Garza M.D. [address] [place] [phone] 04/14/2024 2:10 PM CDT Ancillary Procedure Department of Ophthalmology in [place], [place] [address] [place] [phone] Prakash Graham M.D. [address] [place] [phone] 04/14/2024 2:30 PM CDT Office Visit Department of Ophthalmology in [place], [place] [address] [place] [phone] Prakash Graham M.D. [address] [place] [phone] 04/16/2024 12:30 PM CDT Ancillary Procedure Department of Ophthalmology in [place], [place] [address] [place] [phone] Prakash Graham M.D. [address] [place] [phone] 04/16/2024 1:00 PM CDT Ancillary Procedure Department of Ophthalmology in [place], [place] [address] [place] [phone] Kenya Garza M.D. [address] [place] [phone] 04/16/2024 2:00 PM CDT Ancillary Procedure Department of Ophthalmology in [place], [place] [address] [place] [phone] Kenya Garza M.D. [address] [place] [phone] 04/16/2024 2:30 PM CDT Office Visit Department of Ophthalmology in [place], [place] [address] [place] [phone] Kenya Garza M.D. [address] [place] [phone] 04/27/2024 10:02 AM CDT Hospital Encounter [facility] [place] OR [facility] [address] [place] [phone] Prakash Graham M.D. [address] [place] [phone] 04/27/2024 10:02 AM CDT - 04/27/2024 11:45 AM CDT Surgery [facility] [place] OR [facility] [address] [place] [phone] Prakash Graham M.D. [address] [place] [phone] VITRECTOMY - PARS PLANA 25 GAUGE / MEMBRANE PEEL / SILICONE OIL AND ALL ASSOCIATED PROCEDURES RIGHT EYE 04/28/2024 8:00 AM CDT Office Visit Department of Ophthalmology in [place], [place] [address] [place] [phone] Prakash Graham M.D. [address] [place] [phone] 05/05/2024 1:15 PM CDT Ancillary Procedure Department of Ophthalmology in [place], [place] [address] [place] [phone] Prakash Graham M.D. [address] [place] [phone] 05/05/2024 1:45 PM CDT Office Visit Department of Ophthalmology in [place], [place] [address] [place] [phone] Prakash Graham M.D. [address] [place] [phone] 06/02/2024 8:15 AM CDT Ancillary Procedure Department of Ophthalmology in [place], [place] [address] [place] [phone] Prakash Graham M.D. [address] [place] [phone] 06/02/2024 8:45 AM CDT Ancillary Procedure Department of Ophthalmology in [place], [place] [address] [place] [phone] Prakash Graham M.D. [address] [place] [phone] 06/02/2024 9:00 AM CDT Office Visit Department of Ophthalmology in [place], [place] [address] [place] [address] Prakash Graham M.D. [address] [place] [address] Scheduled Procedures Name Priority Associated Diagnoses Date/Ti [...] Right documented in this encounter Care Teams Train Engineer Relationship Specialty Start Date End Date Elsewhere, Pcp PCP - General Internal Medicine 05/29/19 documented as of this encounter
--- OUTSIDE RECORDS SUMMARY | 2024-03-19 17:02 | XMS_ITS | Encounter Summary ---
Author Organization [facility] Address [address] [place] [address] Care Team Providers Care Printer Machine Name Role Phone Elsewhere, Pcp Primary Care Provider Unavailabl e Reason for Referral * Outpatient (Routine) - Closed Specialty Diagnoses / Procedures Referred By Apolinar lopez Referred To Contact Ophthalmology Diagnoses Panuveitis Right Necrosis Retinal Acute Right Kenya Garza M.D. [address] [place] [address] [facility] Referral ID Status Reason Start Date Expiration Date Visits Re quested Visits Authorized [id number] Closed 02/20/2024 08/21/2025 1 1 Reason for Visit * Outpatient (Routine) - Closed Specialty Diagnoses / Procedures Referred By Apolinar lopez Referred To Contact Ophthalmology Diagnoses Panuveitis Right Necrosis Retinal Acute Right Kenya Garza M.D. [address] [place] [address] [facility] Referral ID Status Reason Start Date Expiration Date Visits Re quested Visits Authorized [id number] Closed 01/23/2024 07/24/2025 1 1 Encounter Details Date Type Department Care Team (Latest Contact Info) Description 02/20/2024 11:15 AM CDT Office Visit Department of Ophthalmology in [place], [place] [address] [place] [phone] Kenya Garza M.D. [address] [place] [phone] Panuveitis Right (Primary Dx); Necrosis Retinal Acute Right Social History Tobacco Use Types Packs/Day Years Used Date Smoking Tobacco: Light Smoker Cigarettes 0.5 44.1 Started: 02/26/1980 Smokeless Tobacco: Never Comments:On again off again Alcohol Use Standard Drinks/Week Comments Yes 0 (1 standard drink = 0.6 oz pur e alcohol) [facility] Utilities Answer Date Recorded In the past 12 months has e electric, gas, oil, or water [employer] threatened to shut off services in your home? No 11/05/2023 Social Connection and Isolation Panel [NHANES] A nswer Date Recorded In a typical week, how many times do you talk on the phone with family, friends, or neighbors? Once a week 06/27/2020 How often do you get together with friends or re latives? Never 06/27/2020 How often do you attend zoroastrian or pentecostal serv ices? Never 06/27/2020 Do [...] and heating? Somewhat hard 06/27/2020 [facility] of Occupat ional Health - Occupational Stress [...] your living situation today? I have a [facility] place to live 11/05/2023 Education Answer Date [...] with tobramycin drops without improvement. She saw patient financial representative Dr. Daisy Ivy on 10/23/23. 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 In August 2023, she was sent from an infusion center to [facility] emergency department where shewas found to have oxygen saturations of 78%. CT imaging showed worsening bilateral ground glass opacities. A CT scan was negative for pulmonary embolism. She was transferred to [facility] for additional pulmonology care. On 09/12/23 [...] three times in the past three months: [facility] (09/02/23 for hypercalcemiaand acute kidney injury - had CT chest/abdomen/pelvis to assess for malignancy), [facility] again. Each time she saw her [...] plans to monitor. (Her oncologist is at [facility].) MEDICATIONS Prednisolone every hour while awake [...] shallow retinal detachment. No T sign noted. [facility] Macula OCT of the right eye [...] membranes. Possible posterior thickening. No T sign. 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 [facility] PLAN: It has been 21 days [...] to repeat intravitreal injections at this time. 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 Follow up in 03/06/24 noon: [facility], dilate both eyes, US and UBM right eye, OCT both eyes, WMS documented in this encounter Plan of Treatment Upcoming Encounters Date Type Department Care Team (Latest Contact Info) Description 04/14/2024 11:00 AM CDT Comprehensive Visit Preoperative Evaluation Center in [place], [place] [address] [place] [phone] Prakash Graham M.D. [address] [place] [phone] 04/14/2024 1:30 PM CDT Ancillary Procedure Department of Ophthalmology in [place], [place] [address] [place] [phone] Kenya Garza M.D. [address] [place] [phone] 04/14/2024 2:10 PM CDT Ancillary Procedure Department of Ophthalmology in [place], [place] [address] [place] [phone] Prakash Graham M.D. [address] [place] [phone] 04/14/2024 2:30 PM CDT Office Visit Department of Ophthalmology in [address] [phone] Prakash Graham M.D. [address] [place] [phone] 04/16/2024 12:30 PM CDT Ancillary Procedure Department of Ophthalmology in [place], [place] [address] [place] [phone] Prakash Graham M.D. [address] [place] [phone] 04/16/2024 1:00 PM CDT Ancillary Procedure Department of Ophthalmology in [place], [place] [address] [place] [phone] Kenya Garza M.D. [address] [place] [phone] 04/16/2024 2:00 PM CDT Ancillary Procedure Department of Ophthalmology in [place], [place] [address] [place] [phone] Kenya Garza M.D. [address] [place] [phone] 04/16/2024 2:30 PM CDT Office Visit Department of Ophthalmology in [place], [place] [address] [place] [phone] Kenya Garza M.D. [address] [place] [phone] 04/27/2024 10:02 AM CDT Hospital Encounter [facility] OR [facility] [place] [phone] Prakash Graham M.D. [address] [place] [phone] 04/27/2024 10:02 AM CDT - 04/27/2024 11:45 AM CDT Surgery T [facility] OR [address] [place] [phone] Prakash Graham M.D. [address] [place] [phone] VITRECTOMY - PARS PLANA 25 GAUGE / MEMBRANE PEEL / SILICONE OIL AND ALL ASSOCIATED PROCEDURES RIGHT EYE 04/28/2024 8:00 AM CDT Office Visit Department of Ophthalmology in [place], [place] [address] [place] [phone] Prakash Graham M.D. [address] [place] [phone] 05/05/2024 1:15 PM CDT Ancillary Procedure Department of Ophthalmology in [place], [place] [address] [place] [phone] Prakash Graham M.D. [address] [place] [phone] 05/05/2024 1:45 PM CDT Office Visit Department of Ophthalmology in [place], [place] [address] [place] [phone] Prakash Graham M.D. [address] [place] [phone] 06/02/2024 8:15 AM CDT Ancillary Procedure Department of Ophthalmology in [place], [place] [address] [place] [phone] Prakash Graham M.D. [address] [place] [phone] 06/02/2024 8:45 AM CDT Ancillary Procedure Department of Ophthalmology in [place], [place] [address] [place] [phone] Prakash Graham M.D. [address] [place] [phone] 06/02/2024 9:00 AM CDT Office Visit Department of Ophthalmology in [address] [phone] Prakash Graham M.D. [address] [place] [phone] Scheduled Procedures Name Priority Associated Diagnoses Date/Ti me VITRECTOMY - PARS PLANA 25 GAUGE Panuveitis Right Necrosis Retinal Acute Right 04/27/2024 10:02 AM CDT Scheduled Referrals Name Type Priority Associated Diagnoses Order Schedule Ophthalmology office visit (clinic) Outpatient Referral Routine Panuveitis Right Necrosis Retinal Acute Right Expected: 03/06/2024, Expires: 02/19/2027 documented as of this encounter Results * Ultrasound Biomicroscopy (UBM) [...] possible ciliochoroidal effusion. BriannaK Kenya Garza M.D. [facility] ULTRASOUND Performing Organization Address [facility] Co de Phone Number OPHTHALMOLGY NON-IMAGING ORDERS * B-Scan Ultrasound - OD [...] possible ciliochoroidal effusion. ZK Kenya Garza M.D. 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
--- OUTSIDE RECORDS SUMMARY | 2024-03-19 17:02 | XMS_ITS | Encounter Summary ---
Author Organization [facility] Address [address] [place] [phone] Care Team Providers Care Tool Engineer Name Role Phone Elsewhere, Pcp Primary Care Provider Unavailabl e Reason for Visit * Reason Onset Date Comments Outside hospitalization and medications 01/10/20 Encounter Details Date Type Department Care Team (Latest Contact Info) Description 01/10/2024 Clinical Communication Department of Ophthalmology in [place], [place] [address] [place] [phone] Kenya Garza M.D. [address] [place] [phone] Outside hospitalization and medications Social History Tobacco Use Types Packs/Day Years Used Date Smoking Tobacco: Light Smoker Cigarettes 0.5 44.1 Started: 02/26/1980 Smokeless Tobacco: Never Comments:On again off again Alcohol Use Standard Drinks/Week Comments Yes 0 (1 standard drink = 0.6 oz pur e alcohol) [facility] Utilities Answer Date Recorded In the past 12 months has [employer], gas, oil, or water [employer] threatened to shut off services in your home? No 11/05/2023 Social Connection and Isolation Panel [NHANES] A nswer Date Recorded In a typical week, how many times do you talk on the phone with family, friends, or neighbors? Once a week 06/27/2020 How often do you get together with friends or re latives? Never 06/27/2020 How often do you attend quaker or taoist serv ices? Never 06/27/2020 Do [...] medical care, and heating? Somewhat hard 06/27/2020 [facility] of Occupat ional Health - Occupational Stress [...] CDT Comprehensive Visit Preoperative Evaluation Center in [address] [phone] Prakash Graham M.D. [address] [place] [phone] 04/14/2024 1:30 PM CDT Ancillary Procedure Department of Ophthalmology in [place], [place] [address] [place] [phone] Kenya Garza M.D. [address] [place] [phone] 04/14/2024 2:10 PM CDT Ancillary Procedure Department of Ophthalmology in [place], [place] [address] [place] [phone] Prakash Graham M.D. [address] [place] [phone] 04/14/2024 2:30 PM CDT Office Visit Department of Ophthalmology in [address] [phone] Prakash Graham M.D. [address] [place] [phone] 04/16/2024 12:30 PM CDT Ancillary Procedure Department of Ophthalmology in [address] [phone] Prakash Graham M.D. [address] [place] [phone] 04/16/2024 1:00 PM CDT Ancillary Procedure Department of Ophthalmology in [place], [place] [address] [place] [phone] Kenya Garza M.D. [address] [place] [phone] 04/16/2024 2:00 PM CDT Ancillary Procedure Department of Ophthalmology in [place], [place] [address] [place] [phone] Kenya Garza M.D. [address] [place] [phone] 04/16/2024 2:30 PM CDT Office Visit Department of Ophthalmology in [place], [place] [address] [place] [phone] Kenya Garza M.D. [address] [place] [phone] 04/27/2024 10:02 AM CDT Hospital Encounter [facility] OR [facility] [place] [phone] Prakash Graham M.D. [address] [place] [phone] 04/27/2024 10:02 AM CDT - 04/27/2024 11:45 AM CDT Surgery [facility] OR [facility] [address] [place] [phone] Prakash Graham M.D. [address] [place] [phone] VITRECTOMY - PARS PLANA 25 GAUGE / MEMBRANE PEEL / SILICONE OIL AND ALL ASSOCIATED PROCEDURES RIGHT EYE 04/28/2024 8:00 AM CDT Office Visit Department of Ophthalmology in [place], [place] [address] [place] [phone] Prakash Graham M.D. [address] [place] [phone] 05/05/2024 1:15 PM CDT Ancillary Procedure Department of Ophthalmology in [place], [place] [address] [place] [phone] Prakash Graham M.D. [address] [place] [phone] 05/05/2024 1:45 PM CDT Office Visit Department of Ophthalmology in [place], [place] [address] [place] [phone] Prakash Graham M.D. [address] [place] [phone] 06/02/2024 8:15 AM CDT Ancillary Procedure Department of Ophthalmology in [place], [place] [address] [place] [phone] Prakash Graham M.D. [address] [place] [phone] 06/02/2024 8:45 AM CDT Ancillary Procedure Department of Ophthalmology in [place], [place] [address] [place] [phone] Prakash Graham M.D. [address] [place] [phone] 06/02/2024 9:00 AM CDT Office Visit Department of Ophthalmology in [place], [place] [address] [place] [phone] Prakash Graham M.D. [address] [place] [phone] Scheduled Procedures Name Priority Associated Diagnoses Date/Ti me VITRECTOMY - PARS PLANA 25 GAUGE Panuveitis Right Necrosis Retinal Acute Right 04/27/2024 10:02 AM CDT documented as of this encounter Visit Diagnoses Not on filedocumented in this encounter Care Teams Tool Engineer Relationship Specialty Start Date End Date Elsewhere, Pcp PCP - General Internal Medicine 05/29/19 documented as of this encounter
--- OUTSIDE RECORDS SUMMARY | 2024-03-19 17:02 | XMS_ITS | Encounter Summary ---
Author Organization [facility] Address [address] [place] [address] Care Team Providers Care Chief Executive Name Role Phone Elsewhere, Pcp Primary Care Provider Unavailabl e Reason for Visit * Outpatient (Routine) - Closed Specialty Diagnoses / Procedures Referred By Contmuriel t Referred To Contact Neurology Piter Baez M.D. [address] [place] [address] [facility] Referral ID Status Reason Start Date Expiration Date Visits Re quested Visits Authorized [id number] Closed 02/20/2024 08/21/2025 1 1 Encounter Details Date Type Department Care Team (Latest Contact Info) Description 02/25/2024 4:30 PM CDT Telemedicine Department of Neurology in [place], [place] [address] [place] [phone] Piter Baez M.D. [address] [place] [phone] Posterior Reversible Encephalopathy Syndrome (Primary Dx) Social History Tobacco Use Types Packs/Day Years Used Date Smoking Tobacco: Light Smoker Cigarettes 0.5 44.1 Started: 02/26/1980 Smokeless Tobacco: Never Comments:On again off again Alcohol Use Standard Drinks/Week Comments Yes 0 (1 standard drink = 0.6 oz pur e alcohol) [facility] Utilities Answer Date Recorded In [...] Never 06/27/2020 How often do you attend mandaen or taoism serv ices? Never 06/27/2020 Do you belong to any clubs o r organizations such as mandaen groups, unions, fraternal or athletic groups, or [...] medical care, and heating? Somewhat hard 06/27/2020 [facility] of Occupat ional Health - Occupational Stress [...] living situation today? I have a [facility] place to live 11/05/2023 Education [...] audio/video technology by Piter Baez M.D. in [facility] to the patient at home. RESULTS REVIEW [...] CDT Comprehensive Visit Preoperative Evaluation Center in [place], [place] [address] [place] [phone] Prakash Graham M.D. [address] [place] [phone] 04/14/2024 1:30 PM CDT Ancillary Procedure Department of Ophthalmology in [address] [phone] Kenya Garza M.D. [address] [place] [phone] 04/14/2024 2:10 PM CDT Ancillary Procedure Department of Ophthalmology in [place], [place] [address] [place] [phone] Prakash Graham M.D. [address] [place] [phone] 04/14/2024 2:30 PM CDT Office Visit Department of Ophthalmology in [place], [place] [address] [place] [phone] Prakash Graham M.D. [address] [place] [phone] 04/16/2024 12:30 PM CDT Ancillary Procedure Department of Ophthalmology in [place], [place] [address] [place] [phone] Prakash Graham M.D. [address] [place] [phone] 04/16/2024 1:00 PM CDT Ancillary Procedure Department of Ophthalmology in [place], [place] [address] [place] [phone] Kenya Garza M.D. [address] [place] [phone] 04/16/2024 2:00 PM CDT Ancillary Procedure Department of Ophthalmology in [place], [place] [address] [place] [phone] Kenya Garza M.D. [address] [place] [phone] 04/16/2024 2:30 PM CDT Office Visit Department of Ophthalmology in [place], [place] [address] [place] [phone] Kenya Garza M.D. [address] [place] [phone] 04/27/2024 10:02 AM CDT Hospital Encounter [facility] OR [address] [place] [phone] Prakash Graham M.D. [address] [place] [phone] 04/27/2024 10:02 AM CDT - 04/27/2024 11:45 AM CDT Surgery [facility] [address] [place] [phone] Prakash Graham M.D. [address] [place] [phone] VITRECTOMY - PARS PLANA 25 GAUGE / MEMBRANE PEEL / SILICONE OIL AND ALL ASSOCIATED PROCEDURES RIGHT EYE 04/28/2024 8:00 AM CDT Office Visit Department of Ophthalmology in [place], [place] [address] [place] [phone] Prakash Graham M.D. [address] [place] [phone] 05/05/2024 1:15 PM CDT Ancillary Procedure Department of Ophthalmology in [place], [place] [address] [place] [phone] Prakash Graham M.D. [address] [place] [phone] 05/05/2024 1:45 PM CDT Office Visit Department of Ophthalmology in [address] [phone] Prakash Graham M.D. [address] [place] [phone] 06/02/2024 8:15 AM CDT Ancillary Procedure Department of Ophthalmology in [place], [place] [address] [place] [phone] Prakash Graham M.D. [address] [place] [phone] 06/02/2024 8:45 AM CDT Ancillary Procedure Department of Ophthalmology in [place], [place] [address] [place] [phone] Prakash Graham M.D. [address] [place] [phone] 06/02/2024 9:00 AM CDT Office Visit Department of Ophthalmology in [place], [place] [address] [place] [address] Prakash Graham M.D. [address] [place] [phone] Scheduled Procedures Name Priority Associated Diagnoses Date/Ti me VITRECTOMY - PARS PLANA 25 GAUGE Panuveitis Right Necrosis Retinal Acute Right 04/27/2024 10:02 AM CDT documented as of this encounter Visit Diagnoses Diagnosis Posterior Reversible Encephalopathy Syndrome- Primary Panuveitis Right Necrosis Retinal Acute Right documented in this encounter Care Teams Chief Executive Relationship Specialty Start Date End Date Elsewhere, Pcp PCP - General Internal Medicine 05/29/19 documented as of this encounter
--- OUTSIDE RECORDS SUMMARY | 2024-03-19 17:02 | XMS_ITS | Encounter Summary ---
Author Organization [facility] Address [address] [place] [address] Care Team Providers Care Submarine Advisory Team Watch Officer Name Role Phone Elsewhere, Pcp Primary Care Provider Unavailabl e Reason for Referral * Outpatient (Routine) - Closed Specialty Diagnoses / Procedures Referred By Apolinar lopez Referred To Contact Ophthalmology Diagnoses Panuveitis Right Necrosis Retinal Acute Right Kenya Garza M.D. [address] [place] [phone] [facility] Referral ID Status Reason Start Date Expiration Date Visits Re quested Visits Authorized [id number] Closed 01/23/2024 07/24/2025 1 1 Reason for Visit * Outpatient (Routine) - Closed Specialty Diagnoses / Procedures Referred By Apolinar lopez Referred To Contact Ophthalmology Kenya Garza M.D. [address] [place] [phone] [facility] Referral ID Status Reason Start Date Expiration Date Visits Re quested Visits Authorized [id number] Closed 01/01/2024 07/02/2025 1 1 Encounter Details Date Type Department Care Team (Latest Contact Info) Description 01/23/2024 12:00 PM CDT Office Visit Department of Ophthalmology in [place], [place] [address] [place] [phone] Kenya Garza M.D. [address] [place] [phone] Panuveitis Right (Primary Dx); Necrosis Retinal Acute Right Social History Tobacco Use Types Packs/Day Years Used Date Smoking Tobacco: Light Smoker Cigarettes 0.5 44.1 Started: 02/26/1980 Smokeless Tobacco: Never Comments:On again off again Alcohol Use Standard Drinks/Week Comments Yes 0 (1 standard drink = 0.6 oz pur e alcohol) [facility] Utilities Answer Date Recorded In [...] How often do you attend catholic or latter-day serv ices? Never 06/27/2020 Do you belong [...] medical care, and heating? Somewhat hard 06/27/2020 [facility] [place] of Occupat ional Health - Occupational Stress [...] your living situation today? I have a [facility] place to live 11/05/2023 Education [...] 02/20/24 Call with questions or new symptoms: [phone] documented in this encounter Progress Notes * [...] with tobramycin drops without improvement. She saw educational guidance counselor Dr. Daisy Ivy on 10/23/23. 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 In August 2023, she was sent from an infusion center to [facility] emergency department where shewas found to have oxygen saturations of 78%. CT imaging showed worsening bilateral ground glass opacities. A CT scan was negative for pulmonary embolism. She was [facility] for additional pulmonology care. On 09/12/23 [...] three times in the past three months: [facility] (09/02/23 for hypercalcemiaand acute kidney injury - had CT chest/abdomen/pelvis to assess for malignancy), [facility] again. Each time she saw [...] plans to monitor. (Her oncologist is at [facility].) MEDICATIONS Prednisolone every hour while awake right [...] shallow retinal detachment. No T sign noted. [facility] Macula OCT of the right eye [...] membranes. Possible posterior thickening. No T sign. 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 [facility] PLAN: It has been 21 days [...] CDT Comprehensive Visit Preoperative Evaluation Center in [place], [place] [address] [place] [address] Prakash Graham M.D. [address] [place] [phone] 04/14/2024 1:30 PM CDT Ancillary Procedure Department of Ophthalmology in [place], [place] [address] [place] [phone] Kenya Garza M.D. [address] [place] [phone] 04/14/2024 2:10 PM CDT Ancillary Procedure Department of Ophthalmology in [place], [place] [address] [place] [phone] Prakash Graham M.D. [address] [place] [phone] 04/14/2024 2:30 PM CDT Office Visit Department of Ophthalmology in [place], [place] [address] [place] [phone] Prakash Graham M.D. [address] [place] [phone] 04/16/2024 12:30 PM CDT Ancillary Procedure Department of Ophthalmology in [place], [place] [address] [place] [phone] Prakash Graham M.D. [address] [place] [phone] 04/16/2024 1:00 PM CDT Ancillary Procedure Department of Ophthalmology in [place], [place] [address] [place] [phone] Kenya Garza M.D. [address] [place] [phone] 04/16/2024 2:00 PM CDT Ancillary Procedure Department of Ophthalmology in [place], [place] [address] [place] [phone] Kenya Garza M.D. [address] [place] [phone] 04/16/2024 2:30 PM CDT Office Visit Department of Ophthalmology in [place], [place] [address] [place] [phone] Kenya Garza M.D. [address] [place] [phone] 04/27/2024 10:02 AM CDT Hospital Encounter [facility] [place] [phone] Prakash Graham M.D. [address] [place] [phone] 04/27/2024 10:02 AM CDT - 04/27/2024 11:45 AM CDT Surgery [facility] [address] [place] [phone] Prakash Graham M.D. [address] [place] [phone] VITRECTOMY - PARS PLANA 25 GAUGE / MEMBRANE PEEL / SILICONE OIL AND ALL ASSOCIATED PROCEDURES RIGHT EYE 04/28/2024 8:00 AM CDT Office Visit Department of Ophthalmology in [place], [place] [address] [place] [phone] Prakash Graham M.D. [address] [place] [phone] 05/05/2024 1:15 PM CDT Ancillary Procedure Department of Ophthalmology in [place], [place] [address] [place] [phone] Prakash Graham M.D. [address] [place] [phone] 05/05/2024 1:45 PM CDT Office Visit Department of Ophthalmology in [place], [place] [address] [place] [phone] Prakash Graham M.D. [address] [place] [phone] 06/02/2024 8:15 AM CDT Ancillary Procedure Department of Ophthalmology in [place], [place] [address] [place] [phone] Prakash Graham M.D. [address] [place] [phone] 06/02/2024 8:45 AM CDT Ancillary Procedure Department of Ophthalmology in [place], [place] [address] [place] [phone] Prakash Graham M.D. [address] [place] [phone] 06/02/2024 9:00 AM CDT Office Visit Department of Ophthalmology in [place], [place] [address] [place] [phone] Prakash Graham M.D. [address] [place] [phone] Scheduled Procedures Name Priority Associated Diagnoses Date/Ti [...] Garza M.D. 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
--- OUTSIDE RECORDS SUMMARY | 2024-03-19 17:02 | XMS_ITS | Encounter Summary ---
Author Organization [facility] Address [address] [place] [address] Care Team Providers Care Search Engine Marketing Strategist Name Role Phone Elsewhere, Pcp Primary Care Provider Unavailabl e Reason for Referral * MRI/CAT/PET Scan (Routine) - Closed Specialty Diagnoses / Procedures Referred By Contac t Referred To Contact Radiology Diagnoses Posterior Reversible Encephalopathy Syndrome Procedures MR Brain without and with IV Contrast Piter Baez M.D. [address] [place] [phone] [facility] Referral ID Status Reason Start Date Expiration Date Visits Re quested Visits Authorized [id number] Closed 02/03/2024 10/27/2024 1 1 Reason for Visit * MRI/CAT/PET Scan (Routine) - Closed Specialty Diagnoses / Procedures Referred By Contac t Referred To Contact Radiology Diagnoses Posterior Reversible Encephalopathy Syndrome Procedures MR Brain without and with IV Contrast Piter Baez M.D. [address] [place] [phone] [facility] Referral ID Status Reason Start Date Expiration Date Visits Re quested Visits Authorized [id number] Closed 02/03/2024 10/27/2024 1 1 Encounter Details Date Type Department Care Team (Latest Contact Info) Description 02/20/2024 3:05 PM CDT - 02/20/2024 11:59 PM CDT Hospital Encounter Department of Radiology, [facility] in [place], [place] [address] [place] [address] Piter Baez M.D. [address] [place] [phone] Posterior Reversible Encephalopathy Syndrome Discharge Disposition: Home or Self Care Social History Tobacco Use Types Packs/Day Years Used Date Smoking Tobacco: Light Smoker Cigarettes 0.5 44.1 Started: 02/26/1980 Smokeless Tobacco: Never Comments:On again off again Alcohol Use Standard Drinks/Week Comments Yes 0 (1 standard drink = 0.6 oz pur e alcohol) [facility] Utilities Answer Date Recorded In [...] Never 06/27/2020 How often do you attend pentecostal or pentecostalism serv ices? Never 06/27/2020 Do you belong to any clubs o r organizations such as pentecostal groups, unions, fraternal or athletic groups, or [...] care, and heating? Somewhat hard 06/27/2020 [facility] of Occupat ional Health - Occupational Stress [...] your living situation today? I have a [facility] place to live 11/05/2023 Education [...] CDT Comprehensive Visit Preoperative Evaluation Center in [place], [place] [address] [place] [phone] Prakash Graham M.D. [address] [place] [phone] 04/14/2024 1:30 PM CDT Ancillary Procedure Department of Ophthalmology in [place], [place] [address] [place] [phone] Kenya Garza M.D. [address] [place] [address] [phone] 04/14/2024 2:10 PM CDT Ancillary Procedure Department of Ophthalmology in [place], [place] [address] [place] [phone] Prakash Graham M.D. [address] [place] [phone] 04/14/2024 2:30 PM CDT Office Visit Department of Ophthalmology in [place], [place] [address] [place] [phone] Prakash Graham M.D. [address] [place] [phone] 04/16/2024 12:30 PM CDT Ancillary Procedure Department of Ophthalmology in [place], [place] [address] [place] [phone] Prakash Graham M.D. [address] [place] [phone] 04/16/2024 1:00 PM CDT Ancillary Procedure Department of Ophthalmology in [place], [place] [address] [place] [phone] Kenya Garza M.D. [address] [place] [phone] 04/16/2024 2:00 PM CDT Ancillary Procedure Department of Ophthalmology in [place], [place] [address] [place] [phone] Kenya Garza M.D. [address] [place] [phone] 04/16/2024 2:30 PM CDT Office Visit Department of Ophthalmology in [place], [place] [address] [place] [phone] Kenya Garza M.D. [address] [place] [phone] 04/27/2024 10:02 AM CDT Hospital Encounter [facility] [address] [place] [phone] Prakash Graham M.D. [address] [place] [phone] 04/27/2024 10:02 AM CDT - 04/27/2024 11:45 AM CDT Surgery [facility] [address] [place] [phone] Prakash Graham M.D. [address] [place] [phone] VITRECTOMY - PARS PLANA 25 GAUGE / MEMBRANE PEEL / SILICONE OIL AND ALL ASSOCIATED PROCEDURES RIGHT EYE 04/28/2024 8:00 AM CDT Office Visit Department of Ophthalmology in [place], [place] [address] [place] [phone] Prakash Graham M.D. [address] [place] [phone] 05/05/2024 1:15 PM CDT Ancillary Procedure Department of Ophthalmology in [place], [place] [address] [place] [phone] Prakash Graham M.D. [address] [place] [phone] 05/05/2024 1:45 PM CDT Office Visit Department of Ophthalmology in [place], [place] [address] [place] [phone] Prakash Graham M.D. [address] [place] [phone] 06/02/2024 8:15 AM CDT Ancillary Procedure Department of Ophthalmology in [place], [place] [address] [place] [phone] Prakash Graham M.D. [address] [place] [phone] 06/02/2024 8:45 AM CDT Ancillary Procedure Department of Ophthalmology in [place], [place] [address] [place] [phone] Prakash Graham M.D. [address] [place] [phone] 06/02/2024 9:00 AM CDT Office Visit Department of Ophthalmology in [place], [place] [address] [place] [phone] Prakash Graham M.D. [address] [place] [phone] Scheduled Procedures Name Priority Associated Diagnoses Date/Ti [...] Modality Head, Brain, Neuroradiology [facility], Neuroradiology [facility], Neuroradiology [facility] N/A Magnetic Resonance Impressions 02/21/2024 8:07 AM [...] findings. Nothing for PRES. Piter Baez M.D. [facility] MRI PROCEDURES documented in this encounter Visit Diagnoses Diagnosis Posterior Reversible Encephalopathy Syndrome Panuveitis Right Necrosis Retinal Acute Right documented in this encounter Administered Medications Inactive [...] mL documented in this encounter Care Teams Search Engine Marketing Strategist Relationship Specialty Start Date End Date Elsewhere, Pcp PCP - General Internal Medicine 05/29/19 documented as of this encounter
--- OUTSIDE RECORDS SUMMARY | 2024-03-19 17:02 | XMS_ITS | Encounter Summary ---
Author Organization [facility] Address [address] [place] [address] Care Team Providers Care Petrophysical Engineer Name Role Phone Elsewhere, Pcp Primary Care Provider Unavailabl e Reason for Referral * Outpatient (Routine) - Closed Specialty Diagnoses / Procedures Referred By Apolinar t Referred To Contact Neurology Diagnoses Posterior Reversible Encephalopathy Syndrome Katerine Bashir M.D. [address] [place] [phone] [facility] Referral ID Status Reason Start Date Expiration Date Visits Re quested Visits Authorized [id number] Closed 01/20/2024 07/21/2025 1 1 Encounter Details Date Type Department Care Team (Latest Contact Info) Description 01/20/2024 [facility] [address] [place] [address] Katerine Bashir M.D. [address] [place] [address] Posterior Reversible Encephalopathy Syndrome (Primary [...] Recorded In the past 12 months has GMI, gas, oil, or water [employer] threatened to shut off services in your home? No 11/05/2023 Social Connection and Isolation Panel [NHANES] A nswer Date Recorded In a typical week, how many times do you talk on the phone with family, friends, or neighbors? Once a week 06/27/2020 How often do you get together with friends or re latives? Never 06/27/2020 How often do you attend buddhist or amish serv ices? Never 06/27/2020 Do [...] medical care, and heating? Somewhat hard 06/27/2020 [facility] of Occupat ional Health - [...] your living situation today? I have a [facility] place to live 11/05/2023 Education [...] CDT Comprehensive Visit Preoperative Evaluation Center in [place], [place] [address] [place] [phone] Prakash Graham M.D. [address] [place] [phone] 04/14/2024 1:30 PM CDT Ancillary Procedure Department of Ophthalmology in [place], [place] [address] [place] [phone] Kenya Garza M.D. [address] [place] [phone] 04/14/2024 2:10 PM CDT Ancillary Procedure Department of Ophthalmology in [place], [place] [address] [place] [phone] Prakash Graham M.D. [address] [place] [phone] 04/14/2024 2:30 PM CDT Office Visit Department of Ophthalmology in [place], [place] [address] [place] [phone] Prakash Graham M.D. [address] [place] [phone] 04/16/2024 12:30 PM CDT Ancillary Procedure Department of Ophthalmology in [place], [place] [address] [place] [phone] Prakash Graham M.D. [address] [place] [phone] 04/16/2024 1:00 PM CDT Ancillary Procedure Department of Ophthalmology in [place], [place] [address] [place] [phone] Kenya Garza M.D. [address] [place] [phone] 04/16/2024 2:00 PM CDT Ancillary Procedure Department of Ophthalmology in [address] [phone] Kenya Garza M.D. [address] [place] [phone] 04/16/2024 2:30 PM CDT Office Visit Department of Ophthalmology in [place], [place] [address] [place] [phone] Kenya Garza M.D. [address] [place] [phone] 04/27/2024 10:02 AM CDT Hospital Encounter [facility] [address] [place] [phone] Prakash Graham M.D. [address] [place] [phone] 04/27/2024 10:02 AM CDT - 04/27/2024 11:45 AM CDT Surgery [facility] [address] [place] [phone] Prakash Graham M.D. [address] [place] [phone] VITRECTOMY - PARS PLANA 25 GAUGE / MEMBRANE PEEL / SILICONE OIL AND ALL ASSOCIATED PROCEDURES RIGHT EYE 04/28/2024 8:00 AM CDT Office Visit Department of Ophthalmology in [place], [place] [address] [place] [phone] Prakash Graham M.D. [address] [place] [phone] 05/05/2024 1:15 PM CDT Ancillary Procedure Department of Ophthalmology in [place], [place] [address] [place] [phone] Prakash Graham M.D. [address] [place] [phone] 05/05/2024 1:45 PM CDT Office Visit Department of Ophthalmology in [place], [place] [address] [place] [phone] Prakash Graham M.D. [address] [place] [phone] 06/02/2024 8:15 AM CDT Ancillary Procedure Department of Ophthalmology in [place], [place] [address] [place] [phone] Prakash Graham M.D. [address] [place] [phone] 06/02/2024 8:45 AM CDT Ancillary Procedure Department of Ophthalmology in [place], [place] [address] [place] [address] Prakash Graham M.D. [address] [place] [phone] 06/02/2024 9:00 AM CDT Office Visit Department of Ophthalmology in [place], [place] [address] [place] [phone] Prakash Graham M.D. [address] [place] [phone] Scheduled Procedures Name Priority Associated Diagnoses Date/Ti [...] Right documented in this encounter Care Teams Petrophysical Engineer Relationship Specialty Start Date End Date Elsewhere, Pcp PCP - General Internal Medicine 05/29/19 documented as of this encounter
--- OUTSIDE RECORDS SUMMARY | 2024-03-19 17:02 | XMS_ITS | Encounter Summary ---
Author Organization [facility] Address [address] [place] [address] Care Team Providers Care Cost Control Specialist Name Role Phone Elsewhere, Pcp Primary [...] drink = 0.6 oz pur e alcohol) [facility] Utilities Answer Date Recorded In the past 12 months has [employer] electric, gas, oil, or water company threatened [...] How often do you attend episcopalian or anabaptist serv ices? Never 06/27/2020 Do you belong [...] Somewhat hard 06/27/2020 [facility] - Occupational Stress Questionnaire Answer Date [...] your living situation today? I have a [facility] place to live 11/05/2023 Education Answer [...] CDT Comprehensive Visit Preoperative Evaluation Center in [place], [place] [address] [place] [phone] Prakash Graham M.D. [address] [place] [phone] 04/14/2024 1:30 PM CDT Ancillary Procedure Department of Ophthalmology in [address] [phone] Kenya Garza M.D. [address] [place] [phone] 04/14/2024 2:10 PM CDT Ancillary Procedure Department of Ophthalmology in [address] [address] Prakash Graham M.D. [address] [place] [phone] 04/14/2024 2:30 PM CDT Office Visit Department of Ophthalmology in [address] [address] Prakash Graham M.D. [address] [place] [phone] 04/16/2024 12:30 PM CDT Ancillary Procedure Department of Ophthalmology in [address] [address] Prakash Graham M.D. [address] [place] [phone] 04/16/2024 1:00 PM CDT Ancillary Procedure Department of Ophthalmology in [place], [place] [address] [place] [phone] Kenya Garza M.D. [address] [place] [phone] 04/16/2024 2:00 PM CDT Ancillary Procedure Department of Ophthalmology in [place], [place] [address] [place] [phone] Kenya Garza M.D. [address] [place] [phone] 04/16/2024 2:30 PM CDT Office Visit Department of Ophthalmology in [place], [place] [address] [place] [phone] Kenya Garza M.D. [address] [place] [phone] 04/27/2024 10:02 AM CDT Hospital Encounter [facility] [address] [place] [phone] Prakash Graham M.D. [address] [place] [phone] 04/27/2024 10:02 AM CDT - 04/27/2024 11:45 AM CDT Surgery [facility] [address] [place] [phone] Prakash Graham M.D. [address] [place] [phone] VITRECTOMY - PARS PLANA 25 GAUGE / MEMBRANE PEEL / SILICONE OIL AND ALL ASSOCIATED PROCEDURES RIGHT EYE 04/28/2024 8:00 AM CDT Office Visit Department of Ophthalmology in [place], [place] [address] [place] [phone] Prakash Graham M.D. [address] [place] [phone] 05/05/2024 1:15 PM CDT Ancillary Procedure Department of Ophthalmology in [place], [place] [address] [place] [phone] Prakash Graham M.D. [address] [place] [phone] 05/05/2024 1:45 PM CDT Office Visit Department of Ophthalmology in [place], [place] [address] [place] [phone] Prakash Graham M.D. [address] [place] [phone] 06/02/2024 8:15 AM CDT Ancillary Procedure Department of Ophthalmology in [place], [place] [address] [place] [phone] Prakash Graham M.D. [address] [place] [phone] 06/02/2024 8:45 AM CDT Ancillary Procedure Department of Ophthalmology in [address] [address] Prakash Graham M.D. [address] [place] [phone] 06/02/2024 9:00 AM CDT Office Visit Department of Ophthalmology in [address] [address] Prakash Graham M.D. [address] [place] [phone] Scheduled Procedures Name Priority Associated Diagnoses Date/Ti [...] on filedocumented in this encounter Care Teams Cost Control Specialist Relationship Specialty Start Date End Date Elsewhere, Pcp PCP - General Internal Medicine 05/29/19 documented as of this encounter
--- OUTSIDE RECORDS SUMMARY | 2024-03-19 17:03 | XMS_ITS | Encounter Summary ---
Author Organization [facility] Address [address] [place] [address] Care Team Providers Care Network Operations Project Manager Name Role Phone Elsewhere, Pcp Primary [...] drink = 0.6 oz pur e alcohol) [facility] Utilities Answer Date Recorded In the past 12 months has th [employer] electric, gas, oil, or water company threatened [...] How often do you attend pentecostalism or mormon serv ices? Never 06/27/2020 Do you belong [...] heating? Somewhat hard 06/27/2020 [facility] - Occupational Stress Questionnaire Answer Date [...] your living situation today? I have a [facility] place to live 11/05/2023 [...] CDT Comprehensive Visit Preoperative Evaluation Center in [place], [place] [address] [place] [phone] Prakash Graham M.D. [address] [place] [phone] 04/14/2024 1:30 PM CDT Ancillary Procedure Department of Ophthalmology in [place], [place] [address] [place] [phone] Kenya Garza M.D. [address] [place] [phone] 04/14/2024 2:10 PM CDT Ancillary Procedure Department of Ophthalmology in [place], [place] [address] [place] [phone] Prakash Graham M.D. [address] [place] [phone] 04/14/2024 2:30 PM CDT Office Visit Department of Ophthalmology in [address] [address] Prakash Graham M.D. [address] [place] [phone] 04/16/2024 12:30 PM CDT Ancillary Procedure Department of Ophthalmology in [address] [address] Prakash Graham M.D. [address] [place] [phone] 04/16/2024 1:00 PM CDT Ancillary Procedure Department of Ophthalmology in [place], [place] [address] [place] [phone] Kenya Garza M.D. [address] [place] [phone] 04/16/2024 2:00 PM CDT Ancillary Procedure Department of Ophthalmology in [place], [place] [address] [place] [phone] Kenya Garza M.D. [address] [place] [phone] 04/16/2024 2:30 PM CDT Office Visit Department of Ophthalmology in [place], [place] [address] [place] [phone] Kenya Garza M.D. [address] [place] [phone] 04/27/2024 10:02 AM CDT Hospital Encounter [facility] [address] [place] [phone] Prakash Graham M.D. [address] [place] [phone] 04/27/2024 10:02 AM CDT - 04/27/2024 11:45 AM CDT Surgery [facility] [place] [address] [place] [phone] Prakash Graham M.D. [address] [place] [phone] VITRECTOMY - PARS PLANA 25 GAUGE / MEMBRANE PEEL / SILICONE OIL AND ALL ASSOCIATED PROCEDURES RIGHT EYE 04/28/2024 8:00 AM CDT Office Visit Department of Ophthalmology in [place], [place] [address] [place] [phone] Prakash Graham M.D. [address] [place] [phone] 05/05/2024 1:15 PM CDT Ancillary Procedure Department of Ophthalmology in [place], [place] [address] [place] [phone] Prakash Graham M.D. [address] [place] [phone] 05/05/2024 1:45 PM CDT Office Visit Department of Ophthalmology in [place], [place] [address] [place] [phone] Prakash Graham M.D. [address] [place] [phone] 06/02/2024 8:15 AM CDT Ancillary Procedure Department of Ophthalmology in [place], [place] [address] [place] [phone] Prakash Graham M.D. [address] [place] [phone] 06/02/2024 8:45 AM CDT Ancillary Procedure Department of Ophthalmology in [address] [phone] Prakash Graham M.D. [address] [place] [phone] 06/02/2024 9:00 AM CDT Office Visit Department of Ophthalmology in [place], [place] [address] [place] [phone] Prakash Graham M.D. [address] [place] [phone] Scheduled Procedures Name Priority Associated Diagnoses Date/Ti me VITRECTOMY - PARS PLANA GAUGE Panuveitis Right Necrosis Retinal Acute Right 04/27/2024 10:02 AM CDT documented as of this encounter Procedures Procedure Name Priority Date/Time Associated Diagnosis Comments OPHTHALMOLOGY IMAGE EXAM Routine 01/01/2024 12:00 AM DIGITAL RECRUITER documented in this encounter Results * Eyes Spectralis OCT-Ophthalmology Image Exam (01/01/2024 12:00 AM DIGITAL RECRUITER) Narrative IIMS - 01/01/2024 12:37 PM DIGITAL RECRUITER This order has been created and auto-finalized to support the import of images acquired without order. The clinical documentation to support these images can be found on the encounter that produced images. Provider Not In System IMG NON RAD IMAGI NG PROCEDURES IIMS NA documented in this encounter Visit Diagnoses Not on filedocumented in this encounter Care Teams Network Operations Project Manager Relationship Specialty Start Date End Date Elsewhere, Pcp PCP - General Internal Medicine 05/29/19 documented as of this encounter
--- OUTSIDE RECORDS SUMMARY | 2024-03-19 17:03 | XMS_ITS | Encounter Summary ---
Author Organization [facility] Address [address] [place] [address] Care Team Providers Care Research Program Assistant Name Role Phone Elsewhere, Pcp Primary Care Provider Unavailabl e Reason for Referral * Outpatient (Routine) - Closed Specialty Diagnoses / Procedures Referred By Apolinar lopez Referred To Contact Ophthalmology Diagnoses Panuveitis Right Kenya Garza M.D. 200 [place] [address] [facility] Referral ID Status Reason Start Date Expiration Date Visits Re quested Visits Authorized [id number] Closed 12/17/2023 06/17/2025 1 1 MAKER Reason for Visit * Outpatient (Routine) - Closed Specialty Diagnoses / Procedures Referred By Apolinar lopez Referred To Contact Ophthalmology Kenya Garza M.D. 200 [place] [address] [facility] Referral ID Status Reason Start Date Expiration Date Visits Re quested Visits Authorized [id number] Closed 12/02/2023 06/02/2025 1 1 Encounter Details Date Type Department Care Team (Latest Contact Info) Description 12/17/2023 1:30 PM SAW MAKER Office Visit Department of Ophthalmology in [place], [place] [address] [place] [phone] Kenya Garza M.D. [address] [place] [phone] Panuveitis Right (Primary Dx) Social History Tobacco Use [...] How often do you attend congregation or presybeterian serv ices? Never 06/27/2020 Do [...] care, and heating? Somewhat hard 06/27/2020 [facility] [place] [facility] Occupat ional Health - Occupational Stress [...] your living situation today? I have a [facility] place to live 11/05/2023 Education Answer [...] Kenya Garza M.D. - 12/17/2023 1:30 PM SAW MAKER Please continue the oral valacyclovir medication, 1000 [...] . Call with questions or new symptoms: [phone] MAKER documented in this encounter Progress Notes * [...] with tobramycin drops without improvement. She saw instrument worker Dr. Daisy Ivy on 10/23/23. 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 In August 2023, she was sent from an infusion center to [place] emergency department where shewas found to have oxygen saturations of 78%. CT imaging showed worsening bilateral ground glass opacities. A CT scan was negative for pulmonary embolism. She was transferred to [facility] for additional pulmonology care. On [...] three times in the past three months: [place] (09/02/23 for hypercalcemiaand acute kidney injury - had CT chest/abdomen/pelvis to assess for malignancy), [facility] again. Each time she saw her [...] plans to monitor. (Her oncologist is at [facility].) MEDICATIONS Prednisolone every hour while awake [...] detachment vs subhyaloid opacities. [facility] HSV 2 PCR from [...] detachment vs subhyaloid opacities. [facility] HSV 2 PCR from [...] [facility], [facility], dilate both eyes, OCT, WMS MAKER documented in this encounter Plan of Treatment Upcoming Encounters Date Type Department Care Team (Latest Contact Info) Description 04/14/2024 11:00 AM CDT Comprehensive Visit Preoperative Evaluation Center in [place], [place] [address] [place] [address] Prakash Graham M.D. [address] [place] [phone] 04/14/2024 1:30 PM CDT Ancillary Procedure Department of Ophthalmology in [place], [place] [address] [place] [phone] Kenya Garza M.D. [address] [place] [phone] 04/14/2024 2:10 PM CDT Ancillary Procedure Department of Ophthalmology in [place], [place] [address] [place] [phone] Prakash Graham M.D. [address] [place] [phone] 04/14/2024 2:30 PM CDT Office Visit Department of Ophthalmology in [place], [place] [address] [place] [phone] Prakash Graham M.D. [address] [place] [phone] 04/16/2024 12:30 PM CDT Ancillary Procedure Department of Ophthalmology in [place], [place] [address] [place] [phone] Prakash Graham M.D. [address] [place] [phone] 04/16/2024 1:00 PM CDT Ancillary Procedure Department of Ophthalmology in [place], [place] [address] [place] [phone] Kenya Garza M.D. [address] [place] [phone] 04/16/2024 2:00 PM CDT Ancillary Procedure Department of Ophthalmology in [place], [place] [address] [place] [phone] Kenya Garza M.D. [address] [place] [phone] 04/16/2024 2:30 PM CDT Office Visit Department of Ophthalmology in [place], [place] [address] [place] [phone] Kenya Garza M.D. [address] [place] [phone] 04/27/2024 10:02 AM CDT Hospital Encounter [facility] [place] [address] [place] [phone] Prakash Graham M.D. [address] [place] [phone] 04/27/2024 10:02 AM CDT - 04/27/2024 11:45 AM CDT Surgery [facility] [place] [address] [place] [phone] Prakash Graham M.D. [address] [place] [phone] VITRECTOMY - PARS PLANA 25 GAUGE / MEMBRANE PEEL / SILICONE OIL AND ALL ASSOCIATED PROCEDURES RIGHT EYE 04/28/2024 8:00 AM CDT Office Visit Department of Ophthalmology in [place], [place] [address] [place] [phone] Prakash Graham M.D. [address] [place] [phone] 05/05/2024 1:15 PM CDT Ancillary Procedure Department of Ophthalmology in [place], [place] [address] [place] [phone] Prakash Graham M.D. [address] [place] [phone] 05/05/2024 1:45 PM CDT Office Visit Department of Ophthalmology in [place], [place] [address] [place] [phone] Prakash Graham M.D. [address] [place] [phone] 06/02/2024 8:15 AM CDT Ancillary Procedure Department of Ophthalmology in [address] [phone] Prakash Graham M.D. [address] [place] [address] [place] [phone] 06/02/2024 8:45 AM CDT Ancillary Procedure Department of Ophthalmology in [place], [place] [address] [place] [phone] Prakash Graham M.D. [address] [place] [address] 06/02/2024 9:00 AM CDT Office Visit Department of Ophthalmology in [place], [place] [address] [place] [address] Prakash Graham M.D. [address] [place] [phone] Scheduled Procedures Name Priority Associated Diagnoses Date/Ti [...] OU - Both Eyes (01/01/2024 12:34 PM SAW MAKER) CMT L Microns 247 um OPH THALMOLOGY IMAGING EXAM Narrative OPHTHALMOLOGY IMAGING EXAM - 01/01/2024 12:45 PM SAW MAKER Right Eye Reliability was good. OCT device [...] Attached posterior hyaloid. Choroid is not thickened. Kenay Garza M.D. OPHTH TOMOGRAPHY Performing Organization Address [facility] Co de Phone Number OPHTHALMOLOGY IMAGING EXAM * Automated VF - Intermediate - OU - Both Eyes (12/17/2023 3:30 PM SAW MAKER) Narrative OPHTHALMOLOGY IMAGING EXAM - 12/17/2023 6:34 PM SAW MAKER Right Eye Automated visual field device used was other. Left Eye Automated visual field device used was other. Notes Esterman Binocular drivers test - both eyes - horizontal 120 degrees Kenya Garza M.D. 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
--- OUTSIDE RECORDS SUMMARY | 2024-03-19 17:03 | XMS_ITS | Encounter Summary ---
Author Organization [facility] Address [address] [place] [address] Care Team Providers Care Rac Specialist Name Role Phone Elsewhere, Pcp Primary Care Provider Unavailabl e Encounter Details Date Type Department Care Team (Latest Contact Info) Description 01/01/2024 12:30 PM SALES DONOR RECRUITMENT REPRESENTATIVE Ancillary Procedure Department of Ophthalmology in [place], [place] [address] [place] [address] Kenya Garza M.D. [address] [place] [address] Panuveitis Right Social History Tobacco Use Types Packs/Day Years Used Date Smoking Tobacco: Light Smoker Cigarettes 0.5 44.1 Started: 02/26/1980 Smokeless Tobacco: Never Comments:On again off again Alcohol Use Standard Drinks/Week Comments Yes 0 (1 standard drink = 0.6 oz pur e alcohol) [facility] Utilities Answer Date Recorded In the past 12 months has [employer], gas, oil, or water [employer] threatened to shut off services in your home? No 11/05/2023 Social Connection and Isolation Panel [NHANES] A nswer Date Recorded In a typical week, how many times do you talk on the phone with family, friends, or neighbors? Once a week 06/27/2020 How often do you get together with friends or re latives? Never 06/27/2020 How often do you attend sabianist or oriental orthodox serv ices? Never 06/27/2020 Do you [...] medical care, and heating? Somewhat hard 06/27/2020 [facility] of Occupat ional Health - Occupational Stress [...] CDT Comprehensive Visit Preoperative Evaluation Center in [place], [place] [address] [place] [address] Prakash Graham M.D. [address] [place] [phone] 04/14/2024 1:30 PM CDT Ancillary Procedure Department of Ophthalmology in [place], [place] [address] [place] [phone] Kenya Garza M.D. [address] [place] [phone] 04/14/2024 2:10 PM CDT Ancillary Procedure Department of Ophthalmology in [place], [place] [address] [place] [phone] Prakash Graham M.D. [address] [place] [phone] 04/14/2024 2:30 PM CDT Office Visit Department of Ophthalmology in [place], [place] [address] [place] [phone] Prakash Graham M.D. [address] [place] [phone] 04/16/2024 12:30 PM CDT Ancillary Procedure Department of Ophthalmology in [place], [place] [address] [place] [phone] Prakash Graham M.D. [address] [place] [phone] 04/16/2024 1:00 PM CDT Ancillary Procedure Department of Ophthalmology in [place], [place] [address] [place] [phone] Kenya Garza M.D. [address] [place] [phone] 04/16/2024 2:00 PM CDT Ancillary Procedure Department of Ophthalmology in [place], [place] [address] [place] [phone] Kenya Garza M.D. [address] [place] [phone] 04/16/2024 2:30 PM CDT Office Visit Department of Ophthalmology in [place], [place] [address] [place] [phone] Kenya Garza M.D. [address] [place] [phone] 04/27/2024 10:02 AM CDT Hospital Encounter [facility] [address] [place] [phone] Prakash Graham M.D. [address] [place] [phone] 04/27/2024 10:02 AM CDT - 04/27/2024 11:45 AM CDT Surgery T [facility] OR [address] [place] [phone] Prakash Graham M.D. [address] [place] [phone] VITRECTOMY - PARS PLANA 25 GAUGE / MEMBRANE PEEL / SILICONE OIL AND ALL ASSOCIATED PROCEDURES RIGHT EYE 04/28/2024 8:00 AM CDT Office Visit Department of Ophthalmology in [place], [place] [address] [place] [phone] Prakash Graham M.D. [address] [place] [phone] 05/05/2024 1:15 PM CDT Ancillary Procedure Department of Ophthalmology in [place], [place] [address] [place] [phone] Prakash Graham M.D. [address] [place] [phone] 05/05/2024 1:45 PM CDT Office Visit Department of Ophthalmology in [place], [place] [address] [place] [phone] Prakash Graham M.D. [address] [place] [phone] 06/02/2024 8:15 AM CDT Ancillary Procedure Department of Ophthalmology in [address] [phone] Prakash Graham M.D. [address] [place] [phone] 06/02/2024 8:45 AM CDT Ancillary Procedure Department of Ophthalmology in [address] [phone] Prakash Graham M.D. [address] [place] [phone] 06/02/2024 9:00 AM CDT Office Visit Department of Ophthalmology in [address] [place] [address] Prakash Graham M.D. [address] [place] [address] Scheduled Procedures Name Priority Associated Diagnoses Date/Ti me VITRECTOMY - PARS PLANA 25 GAUGE Panuveitis Right Necrosis Retinal Acute Right 04/27/2024 10:02 AM CDT documented as of this encounter Procedures Procedure Name Priority Date/Time Associated Diagnosis Comments OPTICAL COHERENCE TOMOGRAPHY - MACULA/RETINA - OU - BOTH EYES Routine 01/01/2024 12:34 PM SALES DONOR RECRUITMENT REPRESENTATIVE Panuveitis Right documented in this encounter Results * Optical Coherence Tomography - Macula/Retina - OU - Both Eyes (01/01/2024 12:34 PM SALES DONOR RECRUITMENT REPRESENTATIVE) CMT L Microns 247 um OPH THALMOLOGY IMAGING EXAM Narrative OPHTHALMOLOGY IMAGING EXAM - 01/01/2024 12:45 PM SALES DONOR RECRUITMENT REPRESENTATIVE Right Eye Reliability was good. 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
--- OUTSIDE RECORDS SUMMARY | 2024-03-19 17:03 | XMS_ITS | Encounter Summary ---
Author Organization [facility] Address [address] [place] [address] Care Team Providers Care Seafood Manager Name Role Phone Elsewhere, Pcp Primary Care Provider Unavailabl e Reason for Referral * Outpatient (Routine) - Closed Specialty Diagnoses / Procedures Referred By Apolinar lopez Referred To Contact Ophthalmology Kenya Garza M.D. [address] [place] [phone] [facility] Referral ID Status Reason Start Date Expiration Date Visits Re quested Visits Authorized [id number] Closed 01/01/2024 07/02/2025 1 1 RINTENDENT QUARRY Reason for Visit * Outpatient (Routine) - Closed Specialty Diagnoses / Procedures Referred By Apolinar lopez Referred To Contact Ophthalmology Diagnoses Panuveitis Right Kenya Garza M.D. [address] [place] [address] [facility] Referral ID Status Reason Start Date Expiration Date Visits Re quested Visits Authorized [id number] Closed 12/17/2023 06/17/2025 1 1 Encounter Details Date Type Department Care Team (Latest Contact Info) Description 01/01/2024 12:45 PM SUPERINTENDENT QUARRY Office Visit Department of Ophthalmology in [place], [place] [address] [place] [address] [phone] Kenya Garza M.D. [address] [place] [address] [phone] Necrosis Retinal Acute Right (Primary Dx); Panuveitis Right Social History Tobacco Use Types Packs/Day Years Used Date Smoking Tobacco: Light Smoker Cigarettes 0.5 44.1 Started: 02/26/1980 Smokeless Tobacco: Never Comments:On again off again Alcohol Use Standard Drinks/Week Comments Yes 0 (1 standard drink = 0.6 oz pur e alcohol) [facility] Utilities Answer Date Recorded [...] Never 06/27/2020 How often do you attend faith or anglican serv ices? Never 06/27/2020 Do you belong to any clubs o r organizations such as faith groups, unions, fraternal or athletic groups, or [...] hard 06/27/2020 [facility] [place] [facility]at [facility] - Occupational Stress [...] Kenya Garza M.D. - 01/01/2024 12:45 PM SUPERINTENDENT QUARRY Please continue the oral valacyclovir medication, 1000 [...] 01/23/24 Call with questions or new symptoms: [phone] RINTENDENT QUARRY documented in this encounter Progress Notes * [...] with tobramycin drops without improvement. She saw metal inspector Dr. Daisy Ivy on 10/23/23. [facility] [...] has not been able to see her site surveyor oncologist recently because every time she went to an appointment she was sent to the emergency room due to elevated blood pressure. In August 2023, she was sent from an infusion center to [place] emergency department where shewas found to have oxygen saturations of 78%. CT imaging showed worsening bilateral ground glass opacities. A CT scan was negative for pulmonary embolism. She was transferred to [facility] for additional pulmonology care. On 09/12/23 [...] three times in the past three months: [place] (09/02/23 for hypercalcemiaand acute kidney injury - had CT chest/abdomen/pelvis to assess for malignancy), [facility] again. Each time she saw her [...] plans to monitor. (Her oncologist is at [facility].) MEDICATIONS Prednisolone every hour while [...] shallow retinal detachment. No T sign noted. [facility] Macula OCT of the right eye shows [...] membranes. Possible posterior thickening. No T sign. 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 [address] [place] [phone] 04/14/2024 1:30 PM CDT Ancillary Procedure Department of Ophthalmology in [place], [place] [address] [place] [phone] Kenya Garza M.D. [address] [place] [phone] 04/14/2024 2:10 PM CDT Ancillary Procedure Department of Ophthalmology in [address] [phone] Prakash Graham M.D. [address] [place] [phone] 04/14/2024 2:30 PM CDT Office Visit Department of Ophthalmology in [address] [phone] Prakash Graham M.D. [address] [place] [phone] 04/16/2024 12:30 PM CDT Ancillary Procedure Department of Ophthalmology in [place], [place] [address] [place] [phone] Prakash Graham M.D. [address] [place] [phone] 04/16/2024 1:00 PM CDT Ancillary Procedure Department of Ophthalmology in [address] [phone] Kenya Garza M.D. [address] [place] [phone] 04/16/2024 2:00 PM CDT Ancillary Procedure Department of Ophthalmology in [place], [place] [address] [place] [phone] Kenya Garza M.D. [address] [place] [phone] 04/16/2024 2:30 PM CDT Office Visit Department of Ophthalmology in [place], [place] [address] [place] [phone] Kenya Garza M.D. [address] [place] [phone] 04/27/2024 10:02 AM CDT Hospital Encounter RST [facility] OR [address] [place] [phone] Prakash Graham M.D. [address] [place] [phone] 04/27/2024 10:02 AM CDT - 04/27/2024 11:45 AM CDT Surgery T [facility] OR [address] [place] [phone] Prakash Graham M.D. [address] [place] [phone] VITRECTOMY - PARS PLANA 25 GAUGE / MEMBRANE PEEL / SILICONE OIL AND ALL ASSOCIATED PROCEDURES RIGHT EYE 04/28/2024 8:00 AM CDT Office Visit Department of Ophthalmology in [place], [place] [address] [place] [phone] Prakash Graham M.D. [address] [place] [phone] 05/05/2024 1:15 PM CDT Ancillary Procedure Department of Ophthalmology in [place], [place] [address] [place] [phone] Prakash Graham M.D. [address] [place] [phone] 05/05/2024 1:45 PM CDT Office Visit Department of Ophthalmology in [place], [place] [address] [place] [phone] Prakash Graham M.D. [address] [place] [phone] 06/02/2024 8:15 AM CDT Ancillary Procedure Department of Ophthalmology in [place], [place] [address] [place] [phone] Prakash Graham M.D. [address] [place] [phone] 06/02/2024 8:45 AM CDT Ancillary Procedure Department of Ophthalmology in [place], [place] [address] [place] [phone] Prakash Graham M.D. [address] [place] [phone] 06/02/2024 9:00 AM CDT Office Visit Department of Ophthalmology in [place], [place] [address] [place] [phone] Prakash Graham M.D. [address] [place] [phone] Scheduled Procedures Name Priority Associated Diagnoses Date/Ti [...] Right documented in this encounter Care Teams Seafood Manager Relationship Specialty Start Date End Date Elsewhere, Pcp PCP - General Internal Medicine 05/29/19 documented as of this encounter
--- OUTSIDE RECORDS SUMMARY | 2024-03-19 17:03 | XMS_ITS | Encounter Summary ---
Author Organization [facility] Address [address] [place] [address] Care Team Providers Care Full Stack Java Developer Name Role Phone Elsewhere, Pcp Primary Care Provider Unavailabl e Encounter Details Date Type Department Care Team (Late st Contact Info) Description 12/17/2023 1:30 PM LABELLING MACHINE OPERATOR Ancillary Procedure Department of Ophthalmology Social History Tobacco Use Types Packs/Day Years Used Date Smoking Tobacco: Light Smoker Cigarettes 0.5 44.1 Started: 02/26/1980 Smokeless Tobacco: Never Comments:On again off again Alcohol Use Standard Drinks/Week Comments Yes 0 (1 standard drink = 0.6 oz pur e alcohol) [facility] Utilities Answer Date Recorded In the past 12 months has th [employer] electric, gas, oil, or water company [...] How often do you attend zoroastrian or anglican serv ices? Never 06/27/2020 Do [...] Somewhat hard 06/27/2020 [facility] Answer Date [...] CDT Comprehensive Visit Preoperative Evaluation Center in [place], [place] [address] [place] [phone] Prakash Graham M.D. [address] [place] [phone] 04/14/2024 1:30 PM CDT Ancillary Procedure Department of Ophthalmology in [place], [place] [address] [place] [phone] Kenya Garza M.D. [address] [place] [phone] 04/14/2024 2:10 PM CDT Ancillary Procedure Department of Ophthalmology in [place], [place] [address] [place] [phone] Prakash Graham M.D. [address] [place] [phone] 04/14/2024 2:30 PM CDT Office Visit Department of Ophthalmology in [address] [phone] Prakash Graham M.D. [address] [place] [phone] 04/16/2024 12:30 PM CDT Ancillary Procedure Department of Ophthalmology in [address] [phone] Prakash Graham M.D. [address] [place] [phone] 04/16/2024 1:00 PM CDT Ancillary Procedure Department of Ophthalmology in [place], [place] [address] [place] [phone] Kenya Garza M.D. [address] [place] [phone] 04/16/2024 2:00 PM CDT Ancillary Procedure Department of Ophthalmology in [place], [place] [address] [place] [phone] Kenya Garza M.D. [address] [place] [phone] 04/16/2024 2:30 PM CDT Office Visit Department of Ophthalmology in [place], [place] [address] [place] [phone] Kenya Garza M.D. [address] [place] [phone] 04/27/2024 10:02 AM CDT Hospital Encounter [facility] [place] [phone] Prakash Graham M.D. [address] [place] [phone] 04/27/2024 10:02 AM CDT - 04/27/2024 11:45 AM CDT Surgery [facility] OR [facility] [address] [place] [phone] Prakash Graham M.D. [address] [place] [phone] VITRECTOMY - PARS PLANA 25 GAUGE / MEMBRANE PEEL / SILICONE OIL AND ALL ASSOCIATED PROCEDURES RIGHT EYE 04/28/2024 8:00 AM CDT Office Visit Department of Ophthalmology in [place], [place] [address] [place] [phone] Prakash Graham M.D. [address] [place] [phone] 05/05/2024 1:15 PM CDT Ancillary Procedure Department of Ophthalmology in [place], [place] [address] [place] [phone] Prakash Graham M.D. [address] [place] [phone] 05/05/2024 1:45 PM CDT Office Visit Department of Ophthalmology in [place], [place] [address] [place] [phone] Prakash Graham M.D. [address] [place] [phone] 06/02/2024 8:15 AM CDT Ancillary Procedure Department of Ophthalmology in [place], [place] [address] [place] [phone] Prakash Graham M.D. [address] [place] [phone] 06/02/2024 8:45 AM CDT Ancillary Procedure Department of Ophthalmology in [place], [place] [address] [place] [phone] Prakash Graham M.D. [address] [place] [phone] 06/02/2024 9:00 AM CDT Office Visit Department of Ophthalmology in [address] [phone] Prakash Graham M.D. [address] [place] [phone] Scheduled Procedures Name Priority Associated Diagnoses Date/Ti me VITRECTOMY - PARS PLANA 25 GAUGE Panuveitis Right Necrosis Retinal Acute Right 04/27/2024 10:02 AM CDT documented as of this encounter Procedures Procedure Name Priority Date/Time Associated Diagnosis Comments OPHTHALMOLOGY IMAGE EXAM Routine 12/17/2023 1:30 PM LABELLING MACHINE OPERATOR documented in this encounter Results * Visual Stewart (VF)-Ophthalmology Image Exam (12/17/2023 1:30 PM LABELLING MACHINE OPERATOR) 12/17/2023 1:27 PM LABELLING MACHINE OPERATOR Narrative IIMS - 12/17/2023 3:38 PM LABELLING MACHINE OPERATOR This order has been created and auto-finalized to support the import of images acquired without order. The clinical documentation to support these images can be found on the encounter that produced images. Provider Not In System IMG NON RAD IMAGI NG PROCEDURES IIMS NA documented in this encounter Visit Diagnoses Not on filedocumented in this encounter Care Teams Full Stack Java Developer Relationship Specialty Start Date End Date Elsewhere, Pcp PCP - General Internal Medicine 05/29/19 documented as of this encounter
--- OUTSIDE RECORDS SUMMARY | 2024-03-19 17:03 | XMS_ITS | Encounter Summary ---
Author Organization [facility] Address [address] [place] [address] Care Team Providers Care Backup Engineer Name Role Phone Elsewhere, Pcp Primary Care Provider Unavailabl e Reason for Referral * Outpatient (Routine) - Closed Specialty Diagnoses / Procedures Referred By Contac t Referred To Contact Cardiovascular Disease Diagnoses Coronary Artery Disease (Unspecified) Katerine Bashir M.D. [address] [place] [address] [facility] Referral ID Status Reason Start Date Expiration Date Visits Re quested Visits Authorized [id number] Closed 02/12/2019 02/12/2020 1 1 Encounter Details Date Type Department Care Team (Late st Contact Info) Description 02/12/2019 [facility] [address] [place] [address] Katerine Bashir M.D. [address] [place] [phone] Coronary Artery Disease (Unspecified) (Primary [...] CDT Comprehensive Visit Preoperative Evaluation Center in [place], [place] [address] [place] [phone] Prakash Graham M.D. [address] [place] [phone] 04/14/2024 1:30 PM CDT Ancillary Procedure Department of Ophthalmology in [place], [place] [address] [place] [phone] Kenya Garza M.D. [address] [place] [phone] 04/14/2024 2:10 PM CDT Ancillary Procedure Department of Ophthalmology in [place], [place] [address] [place] [phone] Prakash Graham M.D. [address] [place] [phone] 04/14/2024 2:30 PM CDT Office Visit Department of Ophthalmology in [place], [place] [address] [place] [phone] Prakash Graham M.D. [address] [place] [phone] 04/16/2024 12:30 PM CDT Ancillary Procedure Department of Ophthalmology in [place], [place] [address] [place] [phone] Prakash Graham M.D. [address] [place] [phone] 04/16/2024 1:00 PM CDT Ancillary Procedure Department of Ophthalmology in [place], [place] [address] [place] [phone] Kenya Garza M.D. [address] [place] [phone] 04/16/2024 2:00 PM CDT Ancillary Procedure Department of Ophthalmology in [place], [place] [address] [place] [phone] Kenya Garza M.D. [address] [place] [phone] 04/16/2024 2:30 PM CDT Office Visit Department of Ophthalmology in [place], [place] [address] [place] [phone] Kenya Garza M.D. [address] [place] [phone] 04/27/2024 10:02 AM CDT Hospital Encounter [facility] OR [address] [place] [phone] Prakash Graham M.D. [address] [place] [phone] 04/27/2024 10:02 AM CDT - 04/27/2024 11:45 AM CDT Surgery [facility] OR [facility] [place] [phone] Prakash Graham M.D. [address] [place] [phone] VITRECTOMY - PARS PLANA 25 GAUGE / MEMBRANE PEEL / SILICONE OIL AND ALL ASSOCIATED PROCEDURES RIGHT EYE 04/28/2024 8:00 AM CDT Office Visit Department of Ophthalmology in [place], [place] [address] [place] [phone] Prakash Graham M.D. [address] [place] [phone] 05/05/2024 1:15 PM CDT Ancillary Procedure Department of Ophthalmology in [place], [place] [address] [place] [phone] Prakash Graham M.D. [address] [place] [phone] 05/05/2024 1:45 PM CDT Office Visit Department of Ophthalmology in [place], [place] [address] [place] [phone] Prakash Graham M.D. [address] [place] [phone] 06/02/2024 8:15 AM CDT Ancillary Procedure Department of Ophthalmology in [place], [place] [address] [place] [phone] Prakash Graham M.D. [address] [place] [phone] 06/02/2024 8:45 AM CDT Ancillary Procedure Department of Ophthalmology in [place], [place] [address] [place] [phone] Prakash Graham M.D. [address] [place] [phone] 06/02/2024 9:00 AM CDT Office Visit Department of Ophthalmology in [address] [phone] Prakash Graham M.D. [address] [place] [phone] Scheduled Procedures Name Priority Associated Diagnoses Date/Ti me VITRECTOMY - PARS PLANA 25 GAUGE Panuveitis Right Necrosis Retinal Acute Right 04/27/2024 10:02 AM CDT Scheduled Referrals Name Type Priority Associated Diagnoses Order Schedule Cardiovascular Diseases Referral Outpatient Referral Routine Coronary Artery Disease (Unspecified) Expected: 02/12/2019 (Approximate), Expires: 02/12/2022 documented as of this encounter Visit Diagnoses Diagnosis Coronary Artery Disease (Unspecified)- Primary Panuveitis Right Necrosis Retinal Acute Right documented in this encounter Additional Health Concerns Infection Onset Date Last Indicated Resolved Time COVID19 Pending 06/23/2020 06/23/2020 06/23/2020 1 0:32 PM CDT COVID19 Pending 06/29/2020 06/29/2020 06/30/2020 2 :23 AM CDT documented as of this encounter Care Teams Backup Engineer Relationship Specialty Start Date End Date Elsewhere, Pcp PCP - General Internal Medicine 05/29/19 documented as of this encounter
--- OUTSIDE RECORDS SUMMARY | 2024-03-19 17:03 | XMS_ITS | Encounter Summary ---
Author Organization [facility] Address [address] [place] [address] Care Team Providers Care Traffic Or System Dispatcher Name Role Phone Elsewhere, Pcp Primary Care Provider Unavailabl e Encounter Details Date Type Department Care Team (Latest Contact Info) Description 12/17/2023 3:00 PM BRICK UNLOADER TENDER Ancillary Procedure Department of Ophthalmology in [place], [place] [address] [place] [address] Kenya Garza M.D. [address] [place] [address] Panuveitis Right Social History Tobacco Use Types Packs/Day Years Used Date Smoking Tobacco: Light Smoker Cigarettes 0.5 44.1 Started: 02/26/1980 Smokeless Tobacco: Never Comments:On again off again Alcohol Use Standard Drinks/Week Comments Yes 0 (1 standard drink = 0.6 oz pur e alcohol) [facility] Utilities Answer Date Recorded In the past 12 months has [employer], gas, oil, or water [employer] threatened to shut off services in your home? No 11/05/2023 Social Connection and Isolation Panel [NHANES] A nswer Date Recorded In a typical week, how many times do you talk on the phone with family, friends, or neighbors? Once a week 06/27/2020 How often do you get together with friends or re latives? Never 06/27/2020 How often do you attend methodist or alevism serv ices? Never 06/27/2020 Do you belong to any clubs o r organizations such as methodist groups, unions, fraternal or athletic groups, or [...] care, and heating? Somewhat hard 06/27/2020 [facility] [place] of Occupat ional Health - Occupational Stress [...] CDT Comprehensive Visit Preoperative Evaluation Center in [place], [place] [address] [place] [address] Prakash Graham M.D. [address] [place] [phone] 04/14/2024 1:30 PM CDT Ancillary Procedure Department of Ophthalmology in [place], [place] [address] [place] [phone] Kenya Garza M.D. [address] [place] [phone] 04/14/2024 2:10 PM CDT Ancillary Procedure Department of Ophthalmology in [place], [place] [address] [place] [phone] Prakash Graham M.D. [address] [place] [phone] 04/14/2024 2:30 PM CDT Office Visit Department of Ophthalmology in [place], [place] [address] [place] [phone] Prakash Graham M.D. [address] [place] [phone] 04/16/2024 12:30 PM CDT Ancillary Procedure Department of Ophthalmology in [place], [place] [address] [place] [phone] Prakash Graham M.D. [address] [place] [phone] 04/16/2024 1:00 PM CDT Ancillary Procedure Department of Ophthalmology in [place], [place] [address] [place] [phone] Kenya Garza M.D. [address] [place] [phone] 04/16/2024 2:00 PM CDT Ancillary Procedure Department of Ophthalmology in [place], [place] [address] [place] [phone] Kenya Garza M.D. [address] [place] [phone] 04/16/2024 2:30 PM CDT Office Visit Department of Ophthalmology in [place], [place] [address] [place] [phone] Kenya Garza M.D. [address] [place] [phone] 04/27/2024 10:02 AM CDT Hospital Encounter [facility] OR [facility] [place] [phone] Prakash Graham M.D. [address] [place] [phone] 04/27/2024 10:02 AM CDT - 04/27/2024 11:45 AM CDT Surgery T [facility] OR [address] [place] [phone] Prakash Graham M.D. [address] [place] [phone] VITRECTOMY - PARS PLANA 25 GAUGE / MEMBRANE PEEL / SILICONE OIL AND ALL ASSOCIATED PROCEDURES RIGHT EYE 04/28/2024 8:00 AM CDT Office Visit Department of Ophthalmology in [place], [place] [address] [place] [phone] Prakash Graham M.D. [address] [place] [phone] 05/05/2024 1:15 PM CDT Ancillary Procedure Department of Ophthalmology in [place], [place] [address] [place] [phone] Prakash Graham M.D. [address] [place] [phone] 05/05/2024 1:45 PM CDT Office Visit Department of Ophthalmology in [place], [place] [address] [place] [phone] Prakash Graham M.D. [address] [place] [phone] 06/02/2024 8:15 AM CDT Ancillary Procedure Department of Ophthalmology in [address] [phone] Prakash Graham M.D. [address] [place] [phone] 06/02/2024 8:45 AM CDT Ancillary Procedure Department of Ophthalmology in [address] [phone] Prakash Graham M.D. [address] [place] [phone] 06/02/2024 9:00 AM CDT Office Visit Department of Ophthalmology in [address] [place] [address] Prakash Graham M.D. [address] [place] [address] Scheduled Procedures Name Priority Associated Diagnoses Date/Ti me VITRECTOMY - PARS PLANA 25 GAUGE Panuveitis Right Necrosis Retinal Acute Right 04/27/2024 10:02 AM CDT documented as of this encounter Procedures Procedure Name Priority Date/Time Associated Diagnosis Comments AUTOMATED VF - INTERMEDIATE - OU - BOTH EYES Routine 12/17/2023 3:30 PM BRICK UNLOADER TENDER Panuveitis Right documented in this encounter Results * Automated VF - Intermediate - OU - Both Eyes (12/17/2023 3:30 PM BRICK UNLOADER TENDER) Narrative OPHTHALMOLOGY IMAGING EXAM - 12/17/2023 6:34 PM BRICK UNLOADER TENDER Right Eye Automated visual field device used was other. Left Eye Automated visual field device used was other. Notes [place]erman Binocular drivers test - both eyes - horizontal 120 degrees Kenya Garza M.D. 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
--- OUTSIDE RECORDS SUMMARY | 2024-03-19 17:03 | XMS_ITS | Encounter Summary ---
Author Organization [facility] Address [address] [place] [address] Care Team Providers Care Cotton Opener Name Role Phone Elsewhere, Pcp Primary Care Provider Unavailabl e Reason for Visit * Reason Comments Med Change Request Encounter Details Date Type Department Care Team ([facility] st Contact Info) Description 12/18/2023 Refill Department of Ophthalmology in [place], [place] [address] [place] [phone] Kenya Garza M.D. [address] [place] [address] Med Change Request Social History Tobacco Use Types Packs/Day Years Used Date Smoking Tobacco: Light Smoker Cigarettes 0.5 44.1 Started: 02/26/1980 Smokeless Tobacco: Never Comments:On again off again Alcohol Use Standard Drinks/Week Comments Yes 0 (1 standard drink = 0.6 oz pur e alcohol) [facility] Utilities Answer Date Recorded In the past 12 months has [employer], gas, oil, or water [employer] threatened to shut off services in your home? No 11/05/2023 Social Connection and Isolation Panel [NHANES] A nswer Date Recorded In a typical week, how many times do you talk on the phone with family, friends, or neighbors? Once a week 06/27/2020 How often do you get together with friends or re latives? Never 06/27/2020 How often do you attend religious or orthodox serv ices? Never 06/27/2020 Do you belong to any clubs o r organizations such as religious groups, unions, fraternal or athletic groups, or [...] medical care, and heating? Somewhat hard 06/27/2020 [facility] of Occupat ional Health - Occupational Stress [...] CDT Comprehensive Visit Preoperative Evaluation Center in [place], [place] [address] [place] [address] Prakash Graham M.D. [address] [place] [phone] 04/14/2024 1:30 PM CDT Ancillary Procedure Department of Ophthalmology in [place], [place] [address] [place] [phone] Kenya Garza M.D. [address] [place] [phone] 04/14/2024 2:10 PM CDT Ancillary Procedure Department of Ophthalmology in [place], [place] [address] [place] [phone] Prakash Graham M.D. [address] [place] [phone] 04/14/2024 2:30 PM CDT Office Visit Department of Ophthalmology in [place], [place] [address] [place] [phone] Prakash Graham M.D. [address] [place] [phone] 04/16/2024 12:30 PM CDT Ancillary Procedure Department of Ophthalmology in [place], [place] [address] [place] [phone] Prakash Graham M.D. [address] [place] [phone] 04/16/2024 1:00 PM CDT Ancillary Procedure Department of Ophthalmology in [place], [place] [address] [place] [phone] Kenya Garza M.D. [address] [place] [phone] 04/16/2024 2:00 PM CDT Ancillary Procedure Department of Ophthalmology in [place], [place] [address] [place] [phone] Kenya Garza M.D. [address] [place] [phone] 04/16/2024 2:30 PM CDT Office Visit Department of Ophthalmology in [place], [place] [address] [place] [phone] Kenya Garza M.D. [address] [place] [phone] 04/27/2024 10:02 AM CDT Hospital Encounter T [facility] OR [facility] [place] [phone] Prakash Graham M.D. [address] [place] [phone] 04/27/2024 10:02 AM CDT - 04/27/2024 11:45 AM CDT Surgery T [facility] OR [facility] [address] [place] [phone] Prakash Graham M.D. [address] [place] [phone] VITRECTOMY - PARS PLANA 25 GAUGE / MEMBRANE PEEL / SILICONE OIL AND ALL ASSOCIATED PROCEDURES RIGHT EYE 04/28/2024 8:00 AM CDT Office Visit Department of Ophthalmology in [place], [place] [address] [place] [phone] Prakash Graham M.D. [address] [place] [phone] 05/05/2024 1:15 PM CDT Ancillary Procedure Department of Ophthalmology in [place], [place] [address] [place] [phone] Prakash Graham M.D. [address] [place] [phone] 05/05/2024 1:45 PM CDT Office Visit Department of Ophthalmology in [place], [place] [address] [place] [phone] Prakash Graham M.D. [address] [place] [phone] 06/02/2024 8:15 AM CDT Ancillary Procedure Department of Ophthalmology in [place], [place] [address] [place] [phone] Prakash Graham M.D. [address] [place] [phone] 06/02/2024 8:45 AM CDT Ancillary Procedure Department of Ophthalmology in [place], [place] [address] [place] [phone] Prakash Graham M.D. [address] [place] [phone] 06/02/2024 9:00 AM CDT Office Visit Department of Ophthalmology in [place], [place] [address] [place] [address] Prakash Graham M.D. [address] [place] [address] Scheduled Procedures Name Priority Associated Diagnoses Date/Ti me VITRECTOMY - PARS PLANA 25 GAUGE Panuveitis Right Necrosis Retinal Acute Right 04/27/2024 10:02 AM CDT documented as of this encounter Visit Diagnoses Not on filedocumented in this encounter Care Teams Cotton Opener Relationship Specialty Start Date End Date Elsewhere, Pcp PCP - General Internal Medicine 05/29/19 documented as of this encounter
--- OUTSIDE RECORDS SUMMARY | 2024-03-19 17:03 | XMS_ITS | Encounter Summary ---
Author Organization [facility] Address [address] [place] [address] Care Team Providers Care Underwater Roboticist Name Role Phone Elsewhere, Pcp Primary Care Provider Unavailabl e Reason for Referral * Outpatient (Routine) - Closed Specialty Diagnoses / Procedures Referred By Contac t Referred To Contact Cardiovascular Disease Diagnoses Coronary Artery Disease (Unspecified) Katerine Bashir M.D. [address] [place] [address] [facility] Referral ID Status Reason Start Date Expiration Date Visits Re quested Visits Authorized [id number] Closed 02/10/2019 02/10/2020 3 3 Encounter Details Date Type Department Care Team (Late st Contact Info) Description 02/10/2019 [facility] [address] [place] [address] Katerine Bashir M.D. [address] [place] [address] Coronary Artery Disease (Unspecified) (Primary [...] CDT Comprehensive Visit Preoperative Evaluation Center in [place], [place] [address] [place] [phone] Prakash Graham M.D. [address] [place] [phone] 04/14/2024 1:30 PM CDT Ancillary Procedure Department of Ophthalmology in [place], [place] [address] [place] [phone] Kenya Garza M.D. [address] [place] [phone] 04/14/2024 2:10 PM CDT Ancillary Procedure Department of Ophthalmology in [place], [place] [address] [place] [phone] Prakash Graham M.D. [address] [place] [phone] 04/14/2024 2:30 PM CDT Office Visit Department of Ophthalmology in [place], [place] [address] [place] [phone] Prakash Graham M.D. [address] [place] [phone] 04/16/2024 12:30 PM CDT Ancillary Procedure Department of Ophthalmology in [place], [place] [address] [place] [phone] Prakash Graham M.D. [address] [place] [phone] 04/16/2024 1:00 PM CDT Ancillary Procedure Department of Ophthalmology in [place], [place] [address] [place] [phone] Kenya Garza M.D. [address] [place] [phone] 04/16/2024 2:00 PM CDT Ancillary Procedure Department of Ophthalmology in [place], [place] [address] [place] [phone] Kenya Garza M.D. [address] [place] [phone] 04/16/2024 2:30 PM CDT Office Visit Department of Ophthalmology in [place], [place] [address] [place] [phone] Kenya Garza M.D. [address] [place] [phone] 04/27/2024 10:02 AM CDT Hospital Encounter [facility] OR [address] [place] [phone] Prakash Graham M.D. [address] [place] [phone] 04/27/2024 10:02 AM CDT - 04/27/2024 11:45 AM CDT Surgery [facility] OR [facility] [place] [phone] Prakash Graham M.D. [address] [place] [phone] VITRECTOMY - PARS PLANA 25 GAUGE / MEMBRANE PEEL / SILICONE OIL AND ALL ASSOCIATED PROCEDURES RIGHT EYE 04/28/2024 8:00 AM CDT Office Visit Department of Ophthalmology in [place], [place] [address] [place] [phone] Prakash Graham M.D. [address] [place] [phone] 05/05/2024 1:15 PM CDT Ancillary Procedure Department of Ophthalmology in [place], [place] [address] [place] [phone] Prakash Graham M.D. [address] [place] [phone] 05/05/2024 1:45 PM CDT Office Visit Department of Ophthalmology in [place], [place] [address] [place] [phone] Prakash Graham M.D. [address] [place] [phone] 06/02/2024 8:15 AM CDT Ancillary Procedure Department of Ophthalmology in [place], [place] [address] [place] [phone] Prakash Graham M.D. [address] [place] [phone] 06/02/2024 8:45 AM CDT Ancillary Procedure Department of Ophthalmology in [place], [place] [address] [place] [phone] Prakash Graham M.D. [address] [place] [phone] 06/02/2024 9:00 AM CDT Office Visit Department of Ophthalmology in [address] [phone] Prakash Graham M.D. [address] [place] [phone] Scheduled Procedures Name Priority Associated Diagnoses Date/Ti [...] documented as of this encounter Care Teams Underwater Roboticist Relationship Specialty Start Date End Date Elsewhere, Pcp PCP - General Internal Medicine 05/29/19 documented as of this encounter
--- OUTSIDE RECORDS SUMMARY | 2024-03-19 17:04 | XMS_ITS | Clinical Summary ---
Author Organization [facility] Address [place], [place] [address] Care Team Providers Care Paper Making Machine Operator Name Role Phone Easton Mccormick MD Unavailable [phone] Katerine Bashir MD Primary Care Provider + Allergies Active Allergy Reactions Criticality Noted Date Comments Wheeler Yefri Itching 09/11/2023 Medications Medication Sig Dispensed Refills Start Date End Date Status aspirin (ECOTRIN) 81 mg enteric coated tabletIndications:Non -ST elevation [place] (NSTEMI) (HC) Take 1 tablet by mouth once daily with a meal. 0 11/30/2015 Active atorvastatin (LIPITOR) 40 mg tabletIndications:Cor onary artery disease, angina presence unspecified, unspecified vessel or lesion type, unspecified whether port lions or transplanted heart Take 1 tablet by mouth at bedtime. 90 tablet 3 09/26/2016 Active blood sugar diagnostic (ACCU-CHEK DAVID) stripIndications:Type 2 diabetes mellitus without complication, without long-term current use of insulin (HC) 1 box 3 09/26/2016 Active lancetsIndications:Ty pe 2 diabetes mellitus without complication, without long-term current use of insulin (HC) Dispense item covered by pt ins. E11.9 NIDDM type II - Test 1 time/day 100 Each 3 09/26/2016 Active metoprolol succinate (TOPROL XL) 100 mg Sustained-Release tabletIndications:Art eriosclerotic heart disease Take 1 Tablet (100 mg) [...] into right eye two times daily. Active albuterol-ipratropium (DUONEB) (2.5-0.5 mg) in 3 mL NEBULIZATION [...] to 3 tablets in 15 minutes. Active carboxymethylcellulos e sodium (Artificial Tears, cmc,) 1 % drop Place 1 Drop into right eye three times daily. Active predniSONE (DELTASONE) 5 mg tabletIndications:Int erstitial pneumonia of both lungs (HC) Take 3 Tablets (15 mg) by mouth once daily with a meal. 01/14/2024 Active Active Problems Problem Noted Date Diagnosed Date Acute respiratory failure 01/14/2024 [place] coma scale total score 3-8 01/14/2024 Coma [...] ACP (advance care planning) 09/11/2023 Non-ST elevation [place] (NSTEMI) 11/19/2015 Melanoma in situ 06/15/2014 Overview: Right lower anterior leg and upper right eyelid. 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 Morbid obesity 04/10/2010 Diabetes mellitus, type 2 HTN (hypertension) CAD (coronary artery disease) Hyperlipidemia LDL goal <70 Encounters Date Type Department Care Team Description 01/23/2024 Telephone [facility] [address] [place] [address] Audrey Givens NP Appointment (Imaging and follow up with WORK STATION SUPPORT SPECIALIST ) 01/22/2024 Orders Only [facility] [address] [place] [address] Nicolle Flores MD <No scans attached> 01/08/2024 9:21 PM CDT - 01/14/2024 3:51 PM CDT Hospital Encounter [facility] [address] [place], [place] [id number] s, Hospitalist c Poppy, MD Rosa Hennessy Anca Ioana, MD Interstitial pneumonia of both [...] SCREEN FFDM (IA) Routine 10/04/2016 9:00 AM SALVAGE ENGINEER Visit for screening mammogram LIPID PANEL W REFLEX MEASURED LDL Routine 09/11/2016 9:26 AM SALVAGE ENGINEER Hyperlipidemia, unspecified XR DXA BONE DENSITY 2 SITES AXIAL Routine 08/18/2015 9:25 AM CDT Screening for osteoporosis from Last 3 Months or Most Recently Relevant to Health Maintenance Results * (ABNORMAL) GLUCOSE METER (01/14/2024 12:46 PM CDT) Only the most recent of27 resultswithin the time period is included. GLUCOSE METER 221(H) 65 - 100 mg/dL 01/14/2024 12:49 PM CDT [facility] Blood BLOOD SPECIMEN / Unknown 01/14/2024 12:46 PM CDT 01/14/2024 12:49 PM CDT Ines Lee MD CHEMISTRY Performing Organization Address City/[facility]/ZIP Co de Phone Number [facility] SENDOUT INTERNAL ZIP [address] [place] [id number] * SCAN-CARDIAC STRIP (01/14/2024 10:04 AM CDT) Scanner OTHER * PLATELET COUNT (01/14/2024 5:15 AM CDT) PLATELET COUNT 189 140 - 440 thou/cu mm 01/14/2024 6:02 AM CDT [facility] MPV 10.6 6.5 - 11.0 fL 01/14/2024 6:02 AM CDT [facility] Blood BLOOD SPECIMEN / Unknown Venipuncture / Unknown 01/14/2024 5:15 AM CDT 01/14/2024 5:46 AM CDT Santi Elmore MD HEMATOLOGY Performing Organization Address City/[facility]/ZIP Co de Phone Number [facility] SENDOUT INTERNAL ZIP [address] [place] [address] * POTASSIUM (01/14/2024 5:15 AM CDT) Only the most recent of6 resultswithin the time period is included. POTASSIUM 3.9 3.5 - 5.1 mmol/L 01/14/2024 6:15 AM CDT [facility] Blood BLOOD SPECIMEN / Unknown Venipuncture / Unknown 01/14/2024 5:15 AM CDT 01/14/2024 5:46 AM CDT Ines Lee MD CHEMISTRY Performing Organization Address City/[facility]/ZIP Co de Phone Number [facility] SENDOUT INTERNAL ZIP [address] [place] [address] * MAGNESIUM (01/14/2024 5:15 AM CDT) Only the most recent of6 resultswithin the time period is included. MAGNESIUM 2.1 1.6 - 2.4 mg/dL 01/14/2024 6:15 AM CDT [facility] Blood BLOOD SPECIMEN / Unknown Venipuncture / Unknown 01/14/2024 5:15 AM CDT 01/14/2024 5:46 AM CDT Anca Wandy Lee MD CHEMISTRY [facility] SENDOUT INTERNAL ZIP [address] [address] [place] [address] * SCAN-CARDIAC STRIP (01/14/2024 2:38 AM CDT) [...] resultswithin the time period is included. Pathologist [facility] Interpretation Sinus rhythm with short NM with occasional Premature ventricular complexes Septal infarct [...] NOW QTc 405 ms BEYOND NOW P [place] -21 degrees BEYOND NOW R [place] 3 degrees BEYOND NOW T [place] 75 degrees BEYOND NOW 01/13/2024 10:2 5 AM CDT 01/14/2024 2:27 PM CDT Latoya Krystle Schmitt WORK STATION SUPPORT SPECIALIST EKG ORD BEYOND NOW [place], [place] * EXTRA TUBE LAVENDER (01/13/2024 5:00 AM CDT) Blood BLOOD SPECIMEN / Unknown Extra Tube / Unknown 01/13/2024 5:00 AM CDT 01/13/2024 5:24 AM CDT Doctor Unknown LABORATORY [facility] SENDOUT INTERNAL ZIP [address] [address] [place] [address] * (ABNORMAL) BASIC METABOLIC PANEL (01/13/2024 5:00 AM CDT) Only the most recent of5 resultswithin the time period is included. SODIUM 135(L) 136 - 145 mmol/L 01/13/2024 5:52 AM T [facility] POTASSIUM 01/13/2024 5:52 AM T [facility] Comment:Canceled- Specimen H emolyzed, Disposition Per Policy CHLORIDE 92(L) 98 - 107 mmol/L 01/13/2024 5:52 AM T [facility] CO2,TOTAL 27 22 - 29 mmol/L 01/13/2024 5:52 AM T [facility] ANION GAP 16 5 - 18 01/13/2024 5:52 AM T [facility] GLUCOSE 151(H) 70 - 99 mg/dL 01/13/2024 5:52 AM T [facility] CALCIUM 10.4(H) 8.8 - 10.2 mg/dL 01/13/2024 5:52 AM T [facility] BUN 38(H) 8 - 23 mg/dL 01/13/2024 5:52 AM T [facility] CREATININE 0.91(H) 0.50 - 0.90 mg/dL 01/13/2024 5:52 AM T [facility] BUN/CREAT RATIO 42(H) 10 - 20 5:52 AM T [facility] eGFR 70(L) >90 mL/min/1.7 3m2 01/13/2024 5:52 AM CDT [facility] Comment:As of 2022, eG [...] AM CDT Anca Wandy Lee MD CHEMISTRY [facility] SENDOUT [place]NAL ZIP [address] [address] [place] [address] * SCAN-CARDIAC STRIP (01/13/2024 12:22 AM CDT) Scanner OTHER * SCAN-CARDIAC STRIP (01/12/2024 8:17 PM CDT) Scanner OTHER * SCAN-CARDIAC STRIP (01/12/2024 3:18 PM CDT) Scanner OTHER * ECHO TTE COMPLETE W CONTRAST (01/12/2024 10:18 AM CDT) EJECTION FRACTION 50-55% PROSOLV Anatomical Region Laterality Modality Ultrasound 01/12/2024 8:26 AM CDT Narrative 01/12/2024 12:01 PM CDT [facility] [address] [address] Main: [email or web address] ? Transthoracic Echo Report BREEZY TREJO ID: [id number] Age: 68 : 1955 Ordering Provider: ROSIE JUNE Exam Date: 01/12/2024 08:26 Gender: F Pick Out Hand: ANDREWS Height: 66 in BSA: 1.87 m?? BP: 106 / 47 Weight: 171 lbs BMI: 27.6 kg/m?? HR: 68 Location: Inpatient (Portable) Rhythm: Sinus Arrhythmia Procedure Components: 2D imaging with contrast, Color Doppler, Spectral Doppler Indications: Congestive Heart Failure Technical Quality: Fair Contrast: Definity Constrast Dose (ml): .15 [facility]#: [id number] Final Conclusion 1. Normal left ventricular chamber [...] Peak Velocity ?0.758 m/sec Ginger Loredo MD [facility] Accredited Site (Electronically Signed) Final Date: 12 January 2024 12:01 ICD-10 Codes: 428 Procedure Note Ginger Loredo MD - 01/12/2024 [facility] [place] [address] Main: [email or web address] Tran[facility]horacic Echo Report BREEZY TREJO ID: [id number] Age: 68 : 1955 Ordering Provider:ROSIE JUNE Exam Date: 01/12/2024 08:26 Gender: F Pick Out Hand: ANDREWS Height: 66 in BSA: 1.87 m?? BP: 106 / 47 Weight: 171 lbs BMI: 27.6 kg/m?? HR: 68 Location: Inpatient (Portable) Rhythm: Sinus Arrhythmia Procedure Components: 2D imaging with contrast, Color Doppler, SpectralDoppler Indications: Congestive Heart Failure Technical Quality: Fair Contrast: Definity Constrast Dose (ml): .15 [facility]#: [id number] Final Conclusion 1. Normal left ventricular chamber [...] Peak Velocity 0.758 m/sec Ginger Loredo MD [facility] Accredited Site (Electronically Signed) Final Date: 12 January 2024 12:01 ICD-10 Codes: 428 Rosie June NP ECHO ORD * SCAN-CARDIAC STRIP (01/12/2024 10:17 [...] EXAM: XR CHEST 1 VIEW PORTABLE LOCATION: [facility] MEDICAL IMAGING DATE: 01/12/2024 INDICATION: Shortness of breath COMPARISON: 01/10/2024 Procedure Note Franck Hill MD - 01/12/2024 For Patients: As a result of the s Act, medical imagingexams and procedure reports are released immediately into your electronicmedical record. You may view this report before your referring provider.If you have questions, please contact your health care provider. EXAM: XR CHEST 1 VIEW PORTABLE LOCATION: [facility] MEDICAL IMAGING DATE: 01/12/2024 INDICATION: Shortness of breath COMPARISON: 01/10/2024 IMPRESSION: Pulmonary venous hypertension and interstitial edema have improved, butnot completely resolved, suggesting improving congestive heart failure orfluid overload. Remainder unchanged. Sternotomy with CABG and ostialmarkers. Calcified aortic atherosclerosis. Anca Wandy Lee MD GENERAL IMAGING * SCAN-CARDIAC STRIP (01/12/2024 2:56 AM CDT) Scanner OTHER * SCAN-CARDIAC STRIP (01/11/2024 8:00 PM CDT) Scanner OTHER * (ABNORMAL) PRO-BNP (01/11/2024 1:07 PM CDT) PRO-BNP 2,530(H) <125 pg/mL 01/11/2024 3:11 PM CDT [facility] Blood BLOOD SPECIMEN / Unknown Line/Port / Unknown 01/11/2024 1:07 PM CDT 01/11/2024 1:10 PM CDT Narrative [facility] - 01/11/2024 3:11 PM [...] ? Anca Wandy Lee MD SEND OUTS [facility] SENDOUT INTERNAL ZIP [address] [address] [place] [address] * SCAN-CARDIAC STRIP (01/11/2024 7:56 AM CDT) Scanner OTHER * (ABNORMAL) CBC WITH AUTO DIFFERENTIAL (01/11/2024 4:59 AM CDT) Only the most recent of2 resultswithin the time period is included. WHITE BLOOD COUNT 7.5 4.5 - 11.0 thou/cu mm 01/11/2024 5:19 AM [facility] RED BLOOD COUNT 3.98(L) 4.00 - 5.20 mil/cu mm 01/11/2024 5:19 AM [facility] HEMOGLOBIN 12.5 12.0 - 16.0 g/dL 01/11/2024 5:19 AM [facility] HEMATOCRIT 37.4 33.0 - 51.0 % 01/11/2024 5:19 AM [facility] MCV 94 80 - 100 fL 01/11/2024 5:19 AM [facility] MCH 31.4 26.0 - 34.0 pg 01/11/2024 5:19 AM [facility] MCHC 33.4 32.0 - 36.0 g/dL 01/11/2024 5:19 AM [facility] RDW 19.3(H) 11.5 - 15.5 % 01/11/2024 5:19 AM [facility] PLATELET COUNT 130(L) 140 - 440 thou/cu mm 01/11/2024 5:19 AM [facility] MPV 10.8 6.5 - 11.0 fL 01/11/2024 5:19 AM [facility] NRBC 0.3 % 01/11/2024 5:19 AM [facility] ABS NRBC 0.0 thou /cu mm 01/11/2024 5:19 AM [facility] % NEUT 37.8 % 01/11/2024 5:19 AM [facility] % LYMPH 47.7 % 01/11/2024 5:19 AM [facility] % MONO 10.5 % 01/11/2024 5:19 AM [facility] % EOS 1.1 % 01/11/2024 5:19 AM [facility] % BASO 0.8 % 01/11/2024 5:19 AM [facility] % IMMATURE GRAN (METAS,MYELOS,NM OS) 2.1 % 01/11/2024 5:19 AM [facility] ABSOLUTE NEUTROPHILS 2.8 1.7 - 7.0 thou/cu mm 01/11/2024 5:19 AM [facility] ABSOLUTE LYMPHOCYTES 3.6(H) 0.9 - 2.9 thou/cu mm 01/11/2024 5:19 AM CDT [facility] ABSOLUTE MONOCYTES 0.8 <0.9 thou/cu mm 01/11/2024 5:19 AM CDT [facility] ABSOLUTE EOSINOPHILS 0.1 <0.5 thou/cu mm 01/11/2024 5:19 AM CDT [facility] ABSOLUTE BASOPHILS 0.1 <0.3 thou/cu mm 01/11/2024 5:19 AM CDT [facility] ABSOLUTE IMMATURE GRANULOCYTES(MET ,MYELOS,PROS) 0.2 <0.3 thou/cu mm 01/11/2024 5:19 AM CDT [facility] Blood BLOOD SPECIMEN / Unknown Venipuncture / Unknown 01/11/2024 4:59 AM CDT 01/11/2024 5:08 AM CDT Tea Garcia MD HEMATOLOGY [facility] SENDOUT INTERNAL ZIP [address] [address] [place] [address] * SCAN-CARDIAC STRIP (01/11/2024 12:48 AM CDT) [...] (ANKITA) Negative Negative 01/13/2024 1:11 PM CDT [facility] Blood BLOOD SPECIMEN / Unknown Venipuncture / Unknown 01/10/2024 4:44 AM CDT 01/10/2024 5:16 AM CDT Narrative [facility] - 01/13/2024 1:11 PM CDT Method: ANKITA screen performed by (IFA) on HEP-2 substrate, IgG Nicolle Flores MD CHEMISTRY Performing Organization Address [facility] Co de Phone Number [facility] [address] [place] [address], * ANCA PANEL FOR VASCULITIS (01/10/2024 4:44 AM CDT) Pathologist [facility] ANCA Negative Negative 01/14/2024 11:09 AM CDT [facility] Comment: Atypical ANCA cannot be ruled out due to presence of ANKITA on screening.?? ANKITA screen results are not valid for diagnosis of Autoimmune Disease.?? Order ANKITA testing for further evaluation as clinically indicated. Blood BLOOD SPECIMEN / Unknown Venipuncture / Unknown 01/10/2024 4:44 AM CDT 01/10/2024 5:16 AM CDT Nicolle Flores MD SEND OUTS Performing Organization Address [facility] Co de Phone Number [facility] [address] [place] [address], * (ABNORMAL) COMP METABOLIC PANEL (01/10/2024 4:44 AM CDT) [facility] SODIUM 141 136 - 145 mmol/L 01/10/2024 5:43 AM CDT [facility] POTASSIUM 4.3 3.5 - 5.1 mmol/L 01/10/2024 5:43 AM CDT [facility] CHLORIDE 107 98 - 107 mmol/L 01/10/2024 5:43 AM CDT [facility] CO2,TOTAL 24 22 - 29 mmol/L 01/10/2024 5:43 AM CDT [facility] ANION GAP 10 5 - 18 01/10/2024 5:43 AM CDT [facility] GLUCOSE 217(H) 70 - 99 mg/dL 01/10/2024 5:43 AM [facility] CALCIUM 8.0(L) 8.8 - 10.2 mg/dL 01/10/2024 5:43 AM [facility] BUN 15 8 - 23 mg/dL 01/10/2024 5:43 AM [facility] CREATININE 0.73 0.50 - 0.90 mg/dL 01/10/2024 5:43 AM [facility] BUN/CREAT RATIO 21(H) 10 - 20 5:43 AM [facility] eGFR >90 >90 mL/min/1.7 3m2 01/10/2024 5:43 AM [facility] Comment:As of 2022, eG FR is calculated by the CKD-EPI creatinine equation without race adjustment. ??eGFR can be influenced by muscle mass, exercise, and diet. ??The reported eGFR is an estimation only and is only applicable if the renal function is stable. ALBUMIN 3.3(L) 4.0 - 4.9 g/dL 01/10/2024 5:43 AM [facility] PROTEIN,TOTAL 5.1(L) 6.0 - 8.0 g/dL 01/10/2024 5:43 AM [facility] BILIRUBIN,TOTAL 0.6 0.0 - 1.2 mg/dL 01/10/2024 5:43 AM [facility] ALK PHOSPHATASE 53 35 - 104 IU/L 01/10/2024 5:43 AM [facility] ALT (SGPT) 14 10 - 35 IU/L 01/10/2024 5:43 AM [facility] AST (SGOT) 19 10 - 35 IU/L 01/10/2024 5:43 AM [facility] Blood BLOOD SPECIMEN / Unknown Venipuncture / Unknown 01/10/2024 4:44 AM CDT 01/10/2024 5:15 AM T Tea Garcia MD CHEMISTRY [facility] SENDOUT INTERNAL ZIP [address] [place] [address] * SCAN-CARDIAC STRIP (01/10/2024 12:00 AM CDT) [...] EXAM: XR ABDOMEN 1 VIEW PORTABLE LOCATION: [facility] MEDICAL IMAGING DATE: 01/09/2024 INDICATION: Tube placement COMPARISON: None. Procedure Note So, Geoff Corona MD - 01/09/2024 For Patients: As a result of the Cures Act, medical imagingexams and procedure reports are released immediately into your electronicmedical record. You may view this report before your referring provider.If you have questions, please contact your health care provider. EXAM: XR ABDOMEN 1 VIEW PORTABLE LOCATION: [facility] MEDICAL IMAGING DATE: 01/09/2024 INDICATION: Tube placement [...] Yellow Yellow Color 01/09/2024 2:03 PM CDT [facility] CLARITY Clear Clear Clarity 01/09/2024 2:03 PM CDT [facility] SPECIFIC GRAVITY,URINE 1.015 1.010, 1.015, 1.020, 1.025 01/09/2024 2:03 PM CDT [facility] PH,URINE 5.5 6.0, 7.0, 8.0, 5.5, 6.5, 7.5, 8.5 01/09/2024 2:03 PM CDT [facility] UROBILINOGEN, QUALITATIVE Normal Normal EU/dl 01/09/2024 2:03 PM CDT [facility] PROTEIN, URINE Trace(A) Negative mg/dL 01/09/2024 2:03 PM CDT [facility] GLUCOSE, URINE Negative Negative mg/dL 01/09/2024 2:03 PM CDT [facility] KETONES,URINE Negative Negative mg/dL 01/09/2024 2:03 PM CDT [facility] BILIRUBIN,URI NE Negative Negative 01/09/2024 2:03 PM CDT [facility] OCCULT BLOOD,URINE Negative Negative 01/09/2024 2:03 PM CDT [facility] NITRITE Negative Negative 01/09/2024 2:03 PM CDT [facility] LEUKOCYTE ESTERASE Negative Negative 01/09/2024 2:03 PM CDT [facility] Urine URINE SPECIMEN / Unknown Non-Blood / Unknown 01/09/2024 1:43 PM CDT 01/09/2024 1:52 PM CDT Nicolle Flores MD URINE [facility] SENDOUT INTERNAL ZIP [address] [place] [address] * SPUTUM CULTURE, STAIN (01/09/2024 10:10 AM CDT) CULTURE Usual geovanni 01/11/2024 9:18 AM CDT [facility] [place] GRAM STAIN 3+ PMNs 01/11/2024 9:18 AM CDT [facility] GRAM STAIN Gram Positive Cocci 01/11/2024 9:18 AM CDT [facility] GRAM STAIN RBCs 01/11/2024 9:18 AM CDT [facility] GRAM STAIN 1+ Epithelial cells 01/11/2024 9:18 AM CDT [facility] GRAM STAIN Gram stain performed by [place], [place] 01/11/2024 9:18 AM CDT [facility] Sputum SPECIMEN FROM ENDOTRACHEAL TUBE / Unknown Non-Blood / Unknown 01/09/2024 10:10 AM CDT 01/09/2024 10:36 AM CDT Nicolle Flores MD MICROBIOLOGY [facility] [address] [place] [address], [facility] SENDOUT INTERNAL ZIP [address] [place] [address] * SEDIMENTATION RATE (01/09/2024 9:50 AM CDT) SEDIMENTATION RATE 4 <30 mm/hr 2023 10:14 AM CDT [facility] Blood BLOOD SPECIMEN / Unknown Butterfly / Unknown 01/09/2024 9:50 AM CDT 01/09/2024 9:54 AM CDT Nicolle Flores MD HEMATOLOGY [facility] SENDOUT INTERNAL ZIP [address] [place] [address] * BLOOD CULTURE (01/09/2024 9:50 AM CDT) Only the most recent of2 resultswithin the time period is included. CULTURE No Growth. 01/13/2024 4:25 PM CDT [facility] Blood BLOOD SPECIMEN / Unknown Butterfly / Unknown 01/09/2024 9:50 AM CDT 01/09/2024 9:54 AM CDT Nicolle Flores MD MICROBIOLOGY [facility] [address] [place] [address], * TSH (01/09/2024 9:50 AM CDT) TSH 0.58 0.27 - 4.20 uIU/mL 01/09/2024 11:43 AM CDT [facility] Blood BLOOD SPECIMEN / Unknown Butterfly / Unknown 01/09/2024 9:50 AM CDT 01/09/2024 9:55 AM CDT [facility] - 01/09/2024 11:43 AM CDT In Adults, TSH values between 5.00 and 10.00 uIU/ml do not necessarily indicate the presence of Hypothyroidism. Correlation with clinical findings such as presence of goiter and/or Thyroperoxidase (TPO) Antibody may be helpful. For more information please refer to RADHA 2004; 291: 228-238. Nicolle Flores MD CHEMISTRY [facility] SENDOUT INTERNAL [facility] [id number] [place] [address] * RA QUANTITATIVE (01/09/2024 9:50 AM CDT) Pathologist [facility] RHEUMATOID FACTOR,QUANT <10.00 <14.00 IU/mL 01/09/2024 4:13 PM CDT [facility] Blood BLOOD SPECIMEN / Unknown Butterfly / Unknown 01/09/2024 9:50 AM CDT 01/09/2024 9:55 AM CDT Nicolle Flores MD SEND OUTS [facility] [address] [place] [address], * (ABNORMAL) C-REACTIVE PROTEIN (01/09/2024 9:50 AM CDT) Pathologist [facility] C-REACTIVE PROTEIN 11.2(H) <0.5 mg/dL 01/09/2024 11:43 AM CDT [facility] Blood BLOOD SPECIMEN / Unknown Butterfly / Unknown 01/09/2024 9:50 AM CDT 01/09/2024 9:55 AM CDT Nicolle Flores MD CHEMISTRY [facility] SENDOUT INTERNAL ZIP [address] [place] [address] * VITAMIN B12 (01/09/2024 9:50 AM CDT) Pathologist [facility] VITAMIN B12 525 232 - 1,245 pg/mL 01/09/2024 3:57 PM CDT [facility] Blood BLOOD SPECIMEN / Unknown Butterfly / Unknown 01/09/2024 9:50 AM CDT 01/09/2024 9:55 AM CDT Narrative [facility] - 01/09/2024 3:57 PM CDT Biotin supplements may cause clinically significant interference for this test assay. ??If interference is suspected, it is strongly recommended that biotin is discontinued for at least one week prior to retesting. Nicolle Flores MD CHEMISTRY Performing Organization Address City/[facility]/ZIP Co de Phone Number [facility] [address] [place] [address], * AMMONIA (01/09/2024 8:09 AM CDT) [facility] AMMONIA 44 [phone] - 60 umol/L 01/09/2024 8:47 AM CDT [facility] Blood BLOOD SPECIMEN / Unknown Venipuncture / Unknown 01/09/2024 8:09 AM CDT 01/09/2024 8:18 AM CDT Narrative [facility] - 01/09/2024 8:47 AM CDT 1. ??Sulfasalazine and its metabolite Sulfapyridine at therapeutic concentrations may lead to falsely low results. 2. ??Temozolomide and its metabolite MTIC may lead to falsely elevated results, and its metabolite AIC may lead to falsely low results. Santi Elmore MD CHEMISTRY [facility] SENDOUT [place]NAL [address]IP [phone] [place] [address] * SCAN-CARDIAC STRIP (01/09/2024 7:15 AM CDT) Scanner OTHER * EXTRA TUBE BLUE (01/09/2024 6:58 AM CDT) Blood BLOOD SPECIMEN / Unknown Extra Tube / Unknown 01/09/2024 6:58 AM CDT 01/09/2024 6:58 AM CDT Doctor Unknown LABORATORY [facility] SENDOUT INTERNAL ZIP [address] [address] [place] [address] * PROCALCITONIN (01/09/2024 6:21 AM CDT) Only the most recent of2 resultswithin the time period is included. PROCALCITONIN 0.12 ng/ml 01/09/2024 7:32 AM CDT [facility] Blood BLOOD SPECIMEN / Unknown Venipuncture / Unknown 01/09/2024 6:21 AM CDT 01/09/2024 6:43 AM CDT Narrative [facility] - 01/09/2024 7:32 AM [...] are obtained. Santi Elmore MD SEND OUTS [facility] SENDOUT INTERNAL ZIP [address] [place] [address] * (ABNORMAL) CBC W PLT NO DIFF (01/09/2024 6:21 AM CDT) Only the most recent of2 resultswithin the time period is included. WHITE BLOOD COUNT 7.9 4.5 - 11.0 thou/cu mm 01/09/2024 6:55 AM [facility] RED BLOOD COUNT 4.56 4.00 - 5.20 mil/cu mm 01/09/2024 6:55 AM [facility] HEMOGLOBIN 14.4 12.0 - 16.0 g/dL 01/09/2024 6:55 AM [facility] HEMATOCRIT 43.7 33.0 - 51.0 % 01/09/2024 6:55 AM [facility] MCV 96 80 - 100 fL 01/09/2024 6:55 AM T [facility] MCH 31.6 26.0 - 34.0 pg 01/09/2024 6:55 AM [facility] MCHC 33.0 32.0 - 36.0 g/dL 01/09/2024 6:55 AM CDT [facility] RDW 19.6(H) 11.5 - 15.5 % 01/09/2024 6:55 AM CDT [facility] PLATELET COUNT 146 140 - 440 thou/cu mm 01/09/2024 6:55 AM CDT [facility] MPV 10.3 6.5 - 11.0 fL 01/09/2024 6:55 AM CDT [facility] NRBC 0.0 % 01/09/2024 6:55 AM CDT [facility] ABS NRBC 0.0 thou /cu mm 01/09/2024 6:55 AM CDT [facility] Blood BLOOD SPECIMEN / Unknown Venipuncture / Unknown 01/09/2024 6:21 AM CDT 01/09/2024 6:44 AM CDT Santi Elmore MD HEMATOLOGY Performing Organization Address City/[facility]/ZIP Co de Phone Number [facility] SENDOUT INTERNAL ZIP [phone] [place] [address] * TRIGLYCERIDES propofol (01/09/2024 6:21 AM CDT) TRIGLYCERIDES 118 <150 mg/dL 01/09/2024 7:22 AM CDT [facility] PROVIDER ORDERED STATUS RANDOM 01/09/2024 7:22 AM CDT [facility] Blood BLOOD SPECIMEN / Unknown Venipuncture / Unknown 01/09/2024 6:21 AM CDT 01/09/2024 6:43 AM CDT Santi Elmore MD CHEMISTRY [facility] SENDOUT INTERNAL ZIP [address] [address] [place] [address] * CK TOTAL propofol (01/09/2024 6:21 AM CDT) CK,TOTAL 35 26 - 192 IU/L 01/09/2024 7:22 AM CDT [facility] Blood BLOOD SPECIMEN / Unknown Venipuncture / Unknown 01/09/2024 6:21 AM CDT 01/09/2024 6:43 AM CDT Santi Elmore MD CHEMISTRY [facility] SENDOUT INTERNAL ZIP [address] [address] [place] [address] * (ABNORMAL) HEPATIC FUNCTION PANEL (01/09/2024 6:21 AM CDT) Only the most recent of2 resultswithin the time period is included. Pathologist [facility] ALBUMIN 3.6(L) 4.0 - 4.9 g/dL 01/09/2024 7:22 AM CDT [facility] PROTEIN,TOTAL 5.3(L) 6.0 - 8.0 g/dL 01/09/2024 7:22 AM CDT [facility] BILIRUBIN,TOTAL 1.4(H) 0.0 - 1.2 mg/dL 01/09/2024 7:22 AM CDT [facility] BILIRUBIN,DIRECT 0.3 0.0 - 0.3 mg/dL 01/09/2024 7:22 AM CDT [facility] BILIRUBIN,INDIRE CT 1.1(H) 0.2 - 0.8 mg/dL 01/09/2024 7:22 AM CDT [facility] ALK PHOSPHATASE 58 35 - 104 IU/L 01/09/2024 7:22 AM CDT [facility] ALT (SGPT) 17 10 - 35 IU/L 01/09/2024 7:22 AM CDT [facility] AST (SGOT) 23 10 - 35 IU/L 01/09/2024 7:22 AM CDT [facility] Blood BLOOD SPECIMEN / Unknown Venipuncture / Unknown 01/09/2024 6:21 AM CDT 01/09/2024 6:43 AM CDT Santi Elmore MD CHEMISTRY [facility] SENDOUT INTERNAL ZIP [phone] [place] [address] * (ABNORMAL) ISTAT EG6+ ABG (01/09/2024 5:38 AM CDT) Only the most recent of2 resultswithin the time period is included. Pathologist [facility] PH, ARTERIAL 7.37 7.35 - 7.45 01/09/2024 5:41 AM [facility] PCO2, ARTERIAL 42 32 - 45 mmHg 01/09/2024 5:41 AM [facility] PO2, ARTERIAL 126(H) 83 - 108 mmHg 01/09/2024 5:41 AM [facility] HCO3, ARTERIAL 23 21 - 28 mmol/L 01/09/2024 5:41 AM [facility] BASE EXCESS, ARTERIAL -2.0 -2.0 - 3.0 01/09/2024 5:41 AM [facility] O2 SATURATION, ARTERIAL 98 94 - 98 % 01/09/2024 5:41 AM [facility] SODIUM, POCT 01/09/2024 5:41 AM [facility] Comment:Unable to determine. POTASSIUM, POCT 5:41 AM [facility] Comment:Unable to determine. INSPIRED O2,ISTAT 50.0 01/09/2024 5:41 AM [facility] PATIENT TEMPERATURE 38.9 Degrees C 01/09/2024 5:41 AM [facility] CARRINGTON'S TEST Not Given 01/09/2024 5:41 AM [facility] SAMPLE TYPE,ISTAT BLOOD GAS ARTERIAL 01/09/2024 5:41 AM [facility] Blood BLOOD SPECIMEN / Unknown 01/09/2024 5:38 AM CDT 01/09/2024 5:41 AM T Ines Lee MD CHEMISTRY [facility] SENDOUT INTERNAL ZIP [phone] [place] [address] * DRUG SCREEN RAPID URINE INHOUSE (01/09/2024 3:01 AM [facility]) [facility] THC METABOLITES,NANCI L Not Detected Not Detected 01/09/2024 3:28 AM [facility] PCP,QUAL Not Detected Not Detected 01/09/2024 3:28 AM [facility] COCAINE,QUAL Not Detected Not Detected 01/09/2024 3:28 AM [facility] METHAMPHETAMINE , QUALITATIVE Not Detected Not Detected 01/09/2024 3:28 AM [facility] OPIATES,QUAL Not Detected Not Detected 01/09/2024 3:28 AM [facility] AMPHETAMINE, QUALITATIVE Not Detected Not Detected 01/09/2024 3:28 AM [facility] BENZODIAZEPINES ,QUAL Not Detected Not Detected 01/09/2024 3:28 AM [facility] TRICYCLICS,QUAL Not Detected Not Detected 01/09/2024 3:28 AM [facility] METHADONE, QUALITATIVE Not Detected Not Detected 01/09/2024 3:28 AM [facility] BARBITURATES,QU AL Not Detected Not Detected 01/09/2024 3:28 AM [facility] OXYCODONE, QUALITATIVE Not Detected Not Detected 01/09/2024 3:28 AM [facility] BUPRENORPHINE, QUALITATIVE Not Detected Not Detected 01/09/2024 3:28 AM [facility] Urine URINE SPECIMEN / Unknown Non-Blood / Unknown 01/09/2024 3:01 AM CDT 01/09/2024 3:07 AM T [facility] LABORATORY - 01/09/2024 3:28 AM CDT Please Note: ?? This is a screening [...] order PCP confirmation. Santi Elmore MD URINE [facility] SENDOUT INTERNAL ZIP [phone] [place] [address] * SCAN-CARDIAC STRIP (01/09/2024 1:18 AM CDT) [...] provider. EXAM: MR HEAD BRAIN WWO LOCATION: [facility] MEDICAL IMAGING DATE: 01/09/2024 INDICATION: Neuro deficit, [...] For Patients: As a result of the Century Cures Act, medical imagingexams and procedure reports are released immediately into your electronicmedical record. You may view this report before your referring provider.If you have questions, please contact your health care provider. EXAM: MR HEAD BRAIN WWO LOCATION: [facility] MEDICAL IMAGING DATE: 01/09/2024 INDICATION: Neuro deficit, [...] Detected NOT Detected 01/09/2024 9:19 AM CDT [facility] Haemophilus influenza NOT Detected NOT Detected 01/09/2024 9:19 AM CDT [facility] Listeria monocytogenes NOT Detected NOT Detected 01/09/2024 9:19 AM CDT [facility] Neisseria meningitides NOT Detected NOT Detected 01/09/2024 9:19 AM CDT [facility] Streptococcus agalactiae NOT Detected NOT Detected 01/09/2024 9:19 AM CDT [facility] Streptococcus pneumoniae NOT Detected NOT Detected 01/09/2024 9:19 AM CDT [facility] Cytomegalovirus NOT Detected NOT Detected 01/09/2024 9:19 AM CDT [facility] Enterovirus NOT Detected NOT Detected 01/09/2024 9:19 AM CDT [facility] Herpes simplex virus 1 NOT Detected NOT Detected 01/09/2024 9:19 AM CDT [facility] Herpes simplex virus 2 NOT Detected NOT Detected 01/09/2024 9:19 AM CDT [facility] Human herpesvirus 6 NOT Detected NOT Detected 01/09/2024 9:19 AM CDT [facility] Human parechovirus NOT Detected NOT Detected 01/09/2024 9:19 AM CDT [facility] Varicella zoster virus NOT Detected NOT Detected 01/09/2024 9:19 AM CDT [facility] Cryptococcus neoformans/gattii NOT Detected NOT Detected 01/09/2024 9:19 AM CDT [facility] Cerebrospinal Fluid CEREBROSPINAL FLUID SPECIMEN / Unknown Non-Blood / Unknown 01/08/2024 11:55 PM CDT 01/08/2024 11:58 PM [facility]T [facility] 01/09/2024 9:19 AM CDT This [...] for the test. Santi Elmore MD MICROBIOLOGY [facility] [address] * SPINAL FLUID CULT, STAIN (01/08/2024 11:55 PM CDT) CULTURE No Growth. 01/14/2024 11:10 AM CDT [facility] TRAL LABORATORY GRAM STAIN 2+ PMNs 01/14/2024 11:10 AM CDT [facility] GRAM STAIN No Epithelial cells 01/14/2024 11:10 AM CDT [facility] GRAM STAIN 3+ RBCs 01/14/2024 11:10 AM CDT [facility] GRAM STAIN No organisms seen 01/14/2024 11:10 AM CDT [facility] GRAM STAIN Gram stain performed by [place], [place] 01/14/2024 11:10 AM CDT [facility] Cerebrospinal Fluid CEREBROSPINAL FLUID SPECIMEN / Unknown Non-Blood / Unknown 01/08/2024 11:55 PM CDT 01/08/2024 11:58 PM CDT Santi Elmore MD MICROBIOLOGY [facility] [address] [place] [id number] [place] [address] LABORATORY SENDOUT INTERNAL ZIP [address] [place] [address] * (ABNORMAL) CSF CELL COUNT/DIFF (01/08/2024 11:55 PM CDT) TUBE NUMBER Four 01/09/2024 1:33 AM CDT [facility] CSF COLOR Colorless Colorless 01/09/2024 1:33 AM CDT [facility] CSF CLARITY Clear Clear 01/09/2024 1:33 AM CDT [facility] TOTAL NUCLEATED CELLS, CSF 5 <=25 /cu mm 01/09/2024 1:33 AM CDT [facility] RED BLOOD COUNT, CSF 172(H) <10 /cu mm 01/09/2024 1:33 AM CDT [facility] % NEUTROPHILS, CSF 3 <7 % 01/09/2024 1:33 AM CDT [facility] % LYMPHOCYTES, CSF 97(H) 40 - 80 % 01/09/2024 1:33 AM CDT [facility] Cerebrospinal Fluid CEREBROSPINAL FLUID SPECIMEN / Unknown Non-Blood / Unknown 01/08/2024 11:55 PM CDT 01/08/2024 11:58 PM CDT Narrative [facility] - 01/09/2024 1:33 AM CDT CSF MIN VOLUME: 1.0 mL Santi Elmore MD BODY FLUID Performing Organization Address City/[facility]/ZIP Co de Phone Number [facility] SENDOUT INTERNAL ZIP [address] [place] [address] * PROTEIN CSF,TOTAL (01/08/2024 11:55 PM CDT) PROTEIN CSF,TOTAL 41 15 - 45 mg/dL 01/09/2024 12:35 AM CDT [facility] Cerebrospinal Fluid CEREBROSPINAL FLUID SPECIMEN / Unknown Non-Blood / Unknown 01/08/2024 11:55 PM CDT 01/08/2024 11:58 PM CDT Santi Elmore MD BODY FLUID Performing Organization Address [facility]/ZIP Co de Phone Number [facility] SENDOUT INTERNAL ZIP [address] [place] [address] * (ABNORMAL) GLUCOSE,CSF (01/08/2024 11:55 PM CDT) GLUCOSE,CSF 92(H) 40 - 70 mg/dL 01/09/2024 12:38 AM CDT [facility] Cerebrospinal Fluid CEREBROSPINAL FLUID SPECIMEN / Unknown Non-Blood / Unknown 01/08/2024 11:55 PM CDT 01/08/2024 11:58 PM CDT Santi Elmore MD BODY FLUID Performing Organization Address City/[facility]/ZIP Co de Phone Number [facility] SENDOUT INTERNAL ZIP [phone] [place] [address] * IR LUMBAR PUNCTURE DIAGNOSTIC (01/08/2024 11:42 PM CDT) Anatomical Region Laterality Modality X-Ray Angiograph y 01/08/2024 11:4 2 PM CDT Impressions 01/13/2024 7:33 AM CDT CONCLUSION: 1. Fluoroscopically-guided lumbar puncture yielding 12 cc of clear cerebrospinal fluid, sent for analysis. Marcial Alcala M.D. Neurointerventional Surgery [facility] Office: Pager: Narrative 01/13/2024 7:33 AM CDT For Patients: As a result of the Century Cures Act, medical imaging exams and procedure reports are released immediately into your electronic medical record. You may view this report before your referring provider. If you have questions, please contact your health care provider. [facility] MEDICAL IMAGING NEUROINTERVENTIONAL SURGERY [facility] 01/08/2024 11:42 PM CDT FLUOROSCOPICALLY-GUIDED LUMBAR [...] For Patients: As a result of the 21st Century Cures Act, medical imagingexams and procedure reports are released immediately into your electronicmedical record. You may view this report before your referring provider.If you have questions, please contact your health care provider. [facility] MEDICAL IMAGING NEUROINTERVENTIONAL SURGERY [facility] 01/08/2024 11:42 PM CDT FLUOROSCOPICALLY-GUIDED LUMBAR [...] for analysis. Marcial Alcala M.D. Neurointerventional Surgery [facility] Office: Pager: Marcial Alcala MD IR * (ABNORMAL) TROPONIN T (HS) ONE TIME (01/08/2024 10:58 PM CDT) TROPONIN T HS 34(H) 6-10 ng/L ng/L 01/08/2024 11:28 PM CDT [facility] Blood BLOOD SPECIMEN / Unknown Venipuncture / Unknown 01/08/2024 10:58 PM CDT 01/08/2024 11:03 PM CDT [facility] LABORATORY - 01/08/2024 11:28 PM CDT [id number] [...] Santi Elmore MD CHEMISTRY Performing Organization Address [facility]/ZIP Co de Phone Number [facility] SENDOUT INTERNAL ZIP [address] [address] [place] [address] * PROTIME-INR (01/08/2024 10:58 PM CDT) INR 1.0 <1.3 01/08/2024 11:13 PM CDT [facility] PROTIME 11.1 10.3 - 12.3 sec 01/08/2024 11:13 PM CDT [facility] Blood BLOOD SPECIMEN / Unknown Venipuncture / Unknown 01/08/2024 10:58 PM CDT 01/08/2024 11:03 PM CDT Narrative [facility] - 01/08/2024 11:13 PM [...] Santi Elmore MD HEMATOLOGY Performing Organization Address [facility] Co de Phone Number [facility] SENDOUT INTERNAL ZIP [phone] [place] [address] * XR MAMMO BILAT SCREEN FFDM (10/04/2016 9:00 AM SALVAGE ENGINEER) Anatomical Region Laterality Modality BREASTS, Breast Left, Breast Right Bilateral Mammography Narrative 10/04/2016 1:52 PM SALVAGE ENGINEER BILATERAL DIGITAL SCREENING MAMMOGRAM WITH COMPUTER-AIDED DETECTION [...] for Comparison Bernardino Avelar D.O. Diagnostic Radiologist [email or web address]/pjt ?? / Bailey Collins NP MAMMO * (ABNORMAL) LIPID PANEL W REFLEX MEASURED LDL (09/11/2016 9:26 AM SALVAGE ENGINEER) CHOLESTEROL,TOTAL 159 100 - 199 mg/dL 09/11/2016 10:03 AM SALVAGE ENGINEER [facility] TRIGLYCERIDES 183(H) <150 mg/dL 09/11/2016 10:03 AM SALVAGE ENGINEER [facility] HDL CHOLESTEROL 36(L) >40 mg/dL 6 10:03 AM SALVAGE ENGINEER [facility] NON-HDL CHOLESTEROL 123 <145 mg/dl 09/11/2016 10:03 AM [facility] CHOL/HDL RATIO 4.42 <4.50 09/11/2016 10:03 AM SALVAGE ENGINEER [facility] LDL CHOLESTEROL 86 <=130 mg/dL 09/11/2016 10:03 AM SALVAGE ENGINEER [facility] PATIENT STATUS NOT GIVEN 09/11/2016 10:03 AM SALVAGE ENGINEER [facility] Blood BLOOD SPECIMEN / Unknown Venipuncture / Unknown 09/11/2016 9:26 AM SALVAGE ENGINEER 09/11/2016 9:26 AM SALVAGE ENGINEER Bailey Collins NP CHEMISTRY [facility] [address] [place] [address], [place] [phone] * XR DXA BONE DENSITY 2 SITES (08/18/2015 9:25 AM CDT) Anatomical Region Laterality Modality Spine, HIPS, HIPL, HIPR Other Narrative 08/19/2015 6:36 PM CDT Please see scanned document for results of this study. 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
--- NOTE | 2024-03-19 17:30 | PE_ITS ---
[facility] [address] [facility] [address] Phone:?[phone] Fax:?[phone] Referring Physician Information: Erendira Pastrana M.D. [address] [facility] [address] Phone:?[phone] Fax:?[phone] Patient:Hany Dixon D.O.B:?1955 Sex:?Female Phone:?[phone] [facility] MRN:?[id number] Exam Date:?03/19/2024 EXAM: PET/CT SCAN MID-ORBITS TO PROXIMAL THIGHS CLINICAL INFORMATION: Lymphoma TECHNICAL INFORMATION: Spiral acquisition of data was obtained from the mid orbits to the proximal thighs with reconstruction of 3.75 mm thick images at 3.[address] data was used for attenuation correction. PET scanning was performed through the same anatomic range 60 minutes following administration of 13.0 mCi of 18-FDG delivered intravenously. The patient's glucose at the time of the injection was 193 mg/dL. PET, CT and PET/CT fusion images are interpreted using a computer viewing workstation. SUV max liver 3.05; BMI normalization method. INTERPRETATION: Head and Neck: Physiologic intracranial uptake. No pathologic adenopathy or abnormal FDG uptake. Chest: No pulmonary nodule or infiltrate. No pleural or pericardial effusion. Several bilateral enlarged axillary lymph nodes, largest left axillary node measuring 15 mm short axis diameter image 80, SUV max 1.49. Right paratracheal, subcarinal and bilateral hilar adenopathy, 27 x 21 mm subcarinal node, SUV max 2.61. Abdomen, Pelvis and Proximal Thighs: Gastrohepatic, splenic hilum, portal caval and retroperitoneal enlarged lymphadenopathy, left periaortic retroperitoneal node measuring 16 mm short axis diameter image 182, SUV max 1.24. Bilateral iliac adenopathy, largest left external iliac node measuring 17 mm short axis diameter image 251, SUV max 1.73. CONCLUSION: 1. Several enlarged mediastinal/hilar/axillary/gastrohepatic, retroperitoneal and bilateral iliac nodes with relative minimal FDG avidity, SUV max subcarinal node 2.61 (liver SUV max 3.05). Electronically signed on 03/20/2024 3:12:00 PM by Pierre Sanchez M.D.
== END 2024-03-19 16:59 | disposition home or self-care (01) ==
PROVIDERS: PCP Family Medicine; Visit Provider Internal Medicine Hematology & Oncology
DX: C83.08 Small cell B-cell lymphoma, lymph nodes of multiple sites (principal)
CPT/HCPCS: 78815; A9552

== ENCOUNTER 2024-03-31 16:11 | Outpatient (CLI) | payer OTHER, MEDICARE, SELFPAY ==
--- OUTSIDE RECORDS SUMMARY | 2024-04-12 18:09 | XMS_ITS | Clinical Summary ---
Author Organization [facility] Address [address] [place] [address] Care Team Providers Care Reporting Lead Name Role Phone Elsewhere, Pcp Primary Care Provider Unavailabl e Source Comments Patient records contain information from all sites at [facility]. For routine questions regarding patient records, call [phone] during business hours, M-F 8:00 AM - 5:00 PM Central Time. Record requests for emergency care only can be directed to [phone] at any time.[facility] Allergies Active Allergy Reactions Criticality Noted Date Comments Aller Xt-Ancram Pollen-Broadlands Blisters,Itching,Rash High 06/21/2020 Medications Medication Sig Dispensed [...] 4 Active predniSONE (DELTASONE) 10 mg tablet TAKE 4 TABLETS (40 MG TOTAL) BY MOUTH DAILY FOR 7 DAYS, THEN 3 TABLETS (30 MG TOTAL) DAILY FOR 7 DAYS, THEN 2 TABLETS (20 MG TOTAL) DAILY FOR 7 DAYS, THEN 1 TABLET (10 MG TOTAL) DAILY FOR 7 DAYS. 70 tablet 4 04/28/20 24 Active predniSONE (DELTASONE) 10 mg tablet Take 4 tablets (40 mg total) by mouth daily for 7 days, THEN 3 tablets (30 mg total) daily for 7 days, THEN 2 tablets (20 mg total) daily for 7 days, THEN 1 tablet (10 mg total) daily for 7 days. 70 tablet 4 04/01/20 24 Discontinued Hospital, Clinic, or Other Facility [...] Encounters Date Type Department Care Team Description 04/10/2024 Refill Department of Ophthalmology in [place], [place] [address] [place] [phone] Kenya Garza M.D. Med Refill 04/01/2024 Refill Department of Ophthalmology in [place], [place] [address] [place] [phone] Raffi Boyd M.D. Med Refill 03/16/2024 Orders Only Department of Ophthalmology in [address] [phone] Shahnaz Amato, C.O.AWhitney Necrosis Retinal Acute Right (Primary Dx) 03/16/2024 Orders Only Department of Ophthalmology in [place], [place] [address] [place] [phone] Jean Claude Newsome C.O.AWhitney Panuveitis Right (Primary Dx); Necrosis Retinal Acute Right 03/14/2024 Orders Only Department of Ophthalmology in [place], [place] [address] [place] [phone] Raffi Boyd M.D. 03/13/2024 2:00 PM CDT Procedure visit Department of Ophthalmology in [place], [place] [address] [place] [phone] Prakash Graham M.D. Primary Hypotony Right Eye (Primary Dx); Panuveitis Right; Necrosis Retinal Acute Right 03/13/2024 1:00 PM CDT Office Visit Department of Ophthalmology in [place], [place] [address] [place] [phone] Prakash Graham M.D. Panuveitis Right (Primary Dx); Necrosis Retinal Acute Right 03/13/2024 12:00 PM CDT Ancillary Procedure Department of Ophthalmology in [place], [place] [address] [place] [phone] Kenya Garza M.D. Panuveitis Right; Necrosis Retinal Acute Right 03/13/2024 11:30 AM CDT Office Visit Department of Ophthalmology in [place], [place] [address] [place] [phone] Kenya Garza M.D. Necrosis Retinal Acute Right (Primary Dx); Panuveitis Right 03/13/2024 8:00 AM CDT Ancillary Procedure Department of Ophthalmology in [place], [place] [address] [place] [phone] Kenya Garza M.D. Panuveitis Right; Necrosis Retinal Acute Right 03/13/2024 12:10 AM CDT Ancillary Procedure Department of Ophthalmology 03/13/2024 12:05 AM CDT Ancillary Procedure Department of Ophthalmology 03/13/2024 Orders Only Department of Ophthalmology in [place], [place] [address] [place] [phone] Jean Claude eNwsome C.O.A. Necrosis Retinal Acute Right (Primary Dx) 03/13/2024 Ancillary Procedure Department of Ophthalmology 03/11/2024 Clinical Communication Department of Ophthalmology in [address] [phone] Kenya Garza M.D. 03/10/2024 Clinical Communication Department of Ophthalmology in [address] [phone] Kenya Garza M.D. 02/25/2024 4:30 PM CDT Telemedicine Department of Neurology in [address] [phone] Piter Baez M.D. Posterior Reversible Encephalopathy Syndrome (Primary Dx) 02/20/2024 3:05 PM CDT - 02/20/2024 11:59 PM CDT Hospital Encounter Department of Radiology, [facility] in [address] [phone] Piter Baez M.D. Posterior Reversible Encephalopathy Syndrome Discharge Disposition: Home or Self Care 02/20/2024 1:00 PM CDT Comprehensive Visit Department of Neurology in [address] [phone] Piter Baez M.D. Posterior Reversible Encephalopathy Syndrome 02/20/2024 11:15 AM CDT Office Visit Department of Ophthalmology in [place], [place] [address] [place] [address] Kenya Garza M.D. Panuveitis Right (Primary Dx); Necrosis Retinal Acute Right 02/20/2024 10:00 AM CDT Ancillary Procedure Department of Ophthalmology in [place], [place] [address] [place] [address] Kenya Garza M.D. Panuveitis Right; Necrosis Retinal Acute Right 02/20/2024 9:50 AM CDT Ancillary Procedure Department of Ophthalmology in [place], [place] [address] [place] [address] Kenya Garza M.D. Panuveitis Right; Necrosis Retinal Acute Right 02/20/2024 12:10 AM CDT Ancillary Procedure Department of Ophthalmology 02/20/2024 12:05 AM CDT Ancillary Procedure Department of Ophthalmology 02/20/2024 Ancillary Procedure Department of Ophthalmology 01/31/2024 Clinical Communication Department of Neurology in [place], [place] [address] [place] [address] Piter Baez M.D. Pre-visit Testing Orders 01/23/2024 12:00 PM CDT Office Visit Department of Ophthalmology in [place], [place] [address] [place] [address] Kenya Garza M.D. Panuveitis Right (Primary Dx); Necrosis Retinal Acute Right 01/20/2024 [facility] [address] [place] [address] Katerine Bashir M.D. Posterior Reversible Encephalopathy Syndrome (Primary Dx) from Last 3 Months Family History Medical History Relation Name Comments Lymphoma Brother Kannan Thibodeaux 2018 Prostate cancer Father Podhora 2000 Stroke Father Podhora Coronary artery disease Mother Afia Thibodeaux Not sure of dates no bypass Diabetes Mother Afia Hawkinsleathara Heart attack Mother Afia Thibodeaux Relation Name Status Comments Brother Kannan Thibodeaux Father Podhora Mother Afia Thibodeaux Social History Tobacco Use Types Packs/Day Years Used Date Smoking Tobacco: Light Smoker Cigarettes 0.5 44.1 Started: 02/26/1980 Smokeless Tobacco: Never Comments:On again off again Alcohol Use Standard Drinks/Week Comments Yes 0 (1 standard drink = 0.6 oz pur e alcohol) [facility] Utilities Answer Date Recorded [...] How often do you attend orthodoxy or lutheran serv ices? Never 06/27/2020 Do [...] medical care, and heating? Somewhat hard 06/27/2020 [facility] of Occupat ional Health - Occupational Stress [...] CDT Comprehensive Visit Preoperative Evaluation Center in [place], [place] [address] [place] [phone] Prakash Graham M.D. [address] [place] [phone] 04/14/2024 1:30 PM CDT Ancillary Procedure Department of Ophthalmology in [place], [place] [address] [place] [phone] Kenya Garza M.D. [address] [place] [phone] 04/14/2024 2:10 PM CDT Ancillary Procedure Department of Ophthalmology in [place], [place] [address] [place] [phone] Prakash Graham M.D. [address] [place] [phone] 04/14/2024 2:30 PM CDT Office Visit Department of Ophthalmology in [address] [phone] Prakash Graham M.D. [address] [place] [phone] 04/16/2024 12:30 PM CDT Ancillary Procedure Department of Ophthalmology in [place], [place] [address] [place] [phone] Prakash Graham M.D. [address] [place] [phone] 04/16/2024 1:00 PM CDT Ancillary Procedure Department of Ophthalmology in [place], [place] [address] [place] [phone] Kenya Garza M.D. [address] [place] [phone] 04/16/2024 2:00 PM CDT Ancillary Procedure Department of Ophthalmology in [place], [place] [address] [place] [phone] Kenya Garza M.D. [address] [place] [phone] 04/16/2024 2:30 PM CDT Office Visit Department of Ophthalmology in [place], [place] [address] [place] [phone] Kenya Garza M.D. [address] [place] [phone] 04/27/2024 10:02 AM CDT Hospital Encounter [facility] [place] [phone] Prakash Graham M.D. [address] [place] [phone] 04/27/2024 10:02 AM CDT - 04/27/2024 11:45 AM CDT Surgery [facility] [address] [place] [phone] Prakash Graham M.D. [address] [place] [phone] VITRECTOMY - PARS PLANA 25 GAUGE / MEMBRANE PEEL / SILICONE OIL AND ALL ASSOCIATED PROCEDURES RIGHT EYE 04/28/2024 8:00 AM CDT Office Visit Department of Ophthalmology in [place], [place] [address] [place] [phone] Prakash Graham M.D. [address] [place] [phone] 05/05/2024 1:15 PM CDT Ancillary Procedure Department of Ophthalmology in [place], [place] [address] [place] [phone] Prakash Graham M.D. [address] [place] [phone] 05/05/2024 1:45 PM CDT Office Visit Department of Ophthalmology in [place], [place] [address] [place] [phone] Prakash Graham M.D. [address] [place] [phone] 06/02/2024 8:15 AM CDT Ancillary Procedure Department of Ophthalmology in [place], [place] [address] [place] [phone] Prakash Graham M.D. [address] [place] [phone] 06/02/2024 8:45 AM CDT Ancillary Procedure Department of Ophthalmology in [place], [place] [address] [place] [phone] Prakash Graham M.D. [address] [place] [phone] 06/02/2024 9:00 AM CDT Office Visit Department of Ophthalmology in [place], [place] [address] [place] [phone] Prakash Graham M.D. [address] [place] [phone] Scheduled Procedures Name Priority Associated Diagnoses Date/Ti [...] Lung Cancer Screening 03/31/2021 03/31/2020 COVID-19 Vaccine ( - 2022-2 4 season) 2023 07/18/2021, 02/14/2021, [...] PANEL, S/P Routine 01/13/2024 5:[address] CHEST WITH IV CONTRAST RAD - [...] defined workflow. ?? Provider Not In System [facility] PROCEDURES Performing Organization Address City/[facility]/ZIP Co de Phone Number IIMS NA * [...] 9 o'clock right eye Prakash Graham M.D. [facility] PROCED URES Performing Organization Address [facility] Co de Phone Number OPHTHALMOL NON-IMAGING ORDERS * Ultrasound Biomicroscopy (UBM) - [...] Garza M.D. OPHTH ULTRASOUND Performing Organization Address [facility] de Phone Number OPHTHALMOLGY NON-IMAGING ORDERS [...] Garza M.D. OPH ULTRASOUND Performing Organization Address [facility] de Phone Number OPHTHALMOLGY NON-IMAGING ORDERS * Eyes US-Eye [id number] Image Exam (03/13/2024 12:10 AM CDT) Only [...] RAD IMAGI NG PROCEDURES Performing Organization Address [facility] Co de Phone Number IIMS [...] Garza M.D. OPHTH ULTRASOUND OPHTHALMOLGY NON-IMAGING ORDERS * CT Chest with IV Contrast (03/31/2020 [...] Recently Relevant to Health Maintenance Care Teams Reporting Lead Relationship Specialty Start Date End Date Elsewhere, Pcp PCP - General Internal Medicine 05/29/19
--- OUTSIDE RECORDS SUMMARY | 2024-04-12 18:09 | XMS_ITS | Encounter Summary ---
Author Organization [facility] Address [address] [place] [address] Care Team Providers Care Firewall Security Engineer Name Role Phone Elsewhere, Pcp Primary Care Provider Unavailabl e Reason for Visit * Reason Comments Med Refill Encounter Details Date Type Department Care Team ([facility] st Contact Info) Description 04/10/2024 Refill Department of Ophthalmology in [place], [place] [address] [place] [phone] Kenya Garza M.D. [address] [place] [address] Med Refill Social History Tobacco Use Types Packs/Day Years Used Date Smoking Tobacco: Light Smoker Cigarettes 0.5 44.1 Started: 02/26/1980 Smokeless Tobacco: Never Comments:On again off again Alcohol Use Standard Drinks/Week Comments Yes 0 (1 standard drink = 0.6 oz pur e alcohol) [facility] Utilities Answer Date Recorded In the past 12 months has blabfeed, gas, oil, or water [employer] threatened to shut off services in your home? No 11/05/2023 Social Connection and Isolation Panel [NHANES] A nswer Date Recorded In a typical week, how many times do you talk on the phone with family, friends, or neighbors? Once a week 06/27/2020 How often do you get together with friends or re latives? Never 06/27/2020 How often do you attend taoist or zoroastrian serv ices? Never 06/27/2020 Do you belong to any clubs o r organizations such as taoist groups, unions, fraternal or athletic groups, or [...] medical care, and heating? Somewhat hard 06/27/2020 [facility] of Occupat ional Health - Occupational Stress [...] CDT Comprehensive Visit Preoperative Evaluation Center in [place], [place] [address] [place] [address] Prakash Graham M.D. [address] [place] [phone] 04/14/2024 1:30 PM CDT Ancillary Procedure Department of Ophthalmology in [place], [place] [address] [place] [phone] Kenya Garza M.D. [address] [place] [phone] 04/14/2024 2:10 PM CDT Ancillary Procedure Department of Ophthalmology in [place], [place] [address] [place] [phone] Prakash Graham M.D. [address] [place] [phone] 04/14/2024 2:30 PM CDT Office Visit Department of Ophthalmology in [place], [place] [address] [place] [phone] Prakash Graham M.D. [address] [place] [phone] 04/16/2024 12:30 PM CDT Ancillary Procedure Department of Ophthalmology in [place], [place] [address] [place] [phone] Prakash Graham M.D. [address] [place] [phone] 04/16/2024 1:00 PM CDT Ancillary Procedure Department of Ophthalmology in [place], [place] [address] [place] [phone] Kenya Garza M.D. [address] [place] [phone] 04/16/2024 2:00 PM CDT Ancillary Procedure Department of Ophthalmology in [place], [place] [address] [place] [phone] Kenya Garza M.D. [address] [place] [phone] 04/16/2024 2:30 PM CDT Office Visit Department of Ophthalmology in [place], [place] [address] [place] [phone] Kenya Garza M.D. [address] [place] [phone] 04/27/2024 10:02 AM CDT Hospital Encounter [facility] [address] [place] [phone] Prakash Grhaam M.D. [address] [place] [phone] 04/27/2024 10:02 AM CDT - 04/27/2024 11:45 AM CDT Surgery T [facility] [address] [place] [phone] Prakash Graham M.D. [address] [place] [phone] VITRECTOMY - PARS PLANA 25 GAUGE / MEMBRANE PEEL / SILICONE OIL AND ALL ASSOCIATED PROCEDURES RIGHT EYE 04/28/2024 8:00 AM CDT Office Visit Department of Ophthalmology in [place], [place] [address] [place] [phone] Prakash Graham M.D. [address] [place] [phone] 05/05/2024 1:15 PM CDT Ancillary Procedure Department of Ophthalmology in [place], [place] [address] [place] [phone] Prakash Graham M.D. [address] [place] [phone] 05/05/2024 1:45 PM CDT Office Visit Department of Ophthalmology in [place], [place] [address] [place] [phone] Prakash Graham M.D. [address] [place] [phone] 06/02/2024 8:15 AM CDT Ancillary Procedure Department of Ophthalmology in [place], [place] [address] [place] [phone] Prakash Graham M.D. [address] [place] [phone] 06/02/2024 8:45 AM CDT Ancillary Procedure Department of Ophthalmology in [place], [place] [address] [place] [phone] Prakash Graham M.D. [address] [place] [phone] 06/02/2024 9:00 AM CDT Office Visit Department of Ophthalmology in [place], [place] [address] [place] [address] Prakash Graham M.D. [address] [place] [address] Scheduled Procedures Name Priority Associated Diagnoses Date/Ti me VITRECTOMY - PARS PLANA 25 GAUGE Panuveitis Right Necrosis Retinal Acute Right 04/27/2024 10:02 AM CDT documented as of this encounter Visit Diagnoses Not on filedocumented in this encounter Care Teams Firewall Security Engineer Relationship Specialty Start Date End Date Elsewhere, Pcp PCP - General Internal Medicine 05/29/19 documented as of this encounter
--- OUTSIDE RECORDS SUMMARY | 2024-04-12 18:09 | XMS_ITS | Referral Summary ---
Author Organization [facility] Address [address] [place] [address] Care Team Providers Care Financial Compliance Manager Name Role Phone Elsewhere, Pcp Primary Care Provider Unavailabl e Source Comments Patient records contain information from all sites at [facility]. For routine questions regarding patient records, call [phone] during business hours, M-F 8:00 AM - 5:00 PM Central Time. Record requests for emergency care only can be directed to [phone] at any time.[facility] Encounters Date Type Department Care Team Description 04/10/2024 Refill Department of Ophthalmology in [place], [place] [address] [place] [address] Kenya Garza M.D. Med Refill 04/01/2024 Refill Department of Ophthalmology in [place], [place] [address] [place] [phone] Raffi Boyd M.D. Med Refill 03/16/2024 Orders Only Department of Ophthalmology in [place], [place] [address] [place] [phone] Shahnaz Amato, C.O.A. Necrosis Retinal Acute Right (Primary Dx) 03/16/2024 Orders Only Department of Ophthalmology in [place], [place] [address] [place] [phone] Jean Claude Newsome, C.O.A. Panuveitis Right (Primary Dx); Necrosis Retinal Acute Right 03/14/2024 Orders Only Department of Ophthalmology in [place], [place] [address] [place] [address] Raffi Boyd M.D. 03/13/2024 2:00 PM CDT Procedure visit Department of Ophthalmology in [place], [place] [address] [place] [phone] Prakash Graham M.D. Primary Hypotony Right Eye (Primary Dx); Panuveitis Right; Necrosis Retinal Acute Right 03/13/2024 1:00 PM CDT Office Visit Department of Ophthalmology in [place], [place] [address] [place] [phone] Prakash Graham M.D. Panuveitis Right (Primary Dx); Necrosis Retinal Acute Right 03/13/2024 Orders Only Department of Ophthalmology in [place], [place] [address] [place] [phone] Jean Claude Newsome C.O.A. Necrosis Retinal Acute Right (Primary Dx) 03/13/2024 12:10 AM CDT Ancillary Procedure Department of Ophthalmology 03/13/2024 12:05 AM CDT Ancillary Procedure Department of Ophthalmology 03/13/2024 Ancillary Procedure Department of Ophthalmology 03/13/2024 12:00 PM CDT Ancillary Procedure Department of Ophthalmology in [place], [place] [address] [place] [phone] Kenya Garza M.D. Panuveitis Right; Necrosis Retinal Acute Right 03/13/2024 11:30 AM CDT Office Visit Department of Ophthalmology in [place], [place] [address] [place] [phone] Kenya Garza M.D. Necrosis Retinal Acute Right (Primary Dx); Panuveitis Right 03/13/2024 8:00 AM CDT Ancillary Procedure Department of Ophthalmology in [place], [place] [address] [place] [phone] Kenya Garza M.D. Panuveitis Right; Necrosis Retinal Acute Right 03/11/2024 Clinical Communication Department of Ophthalmology in [address] [phone] Kenya Garza M.D. 03/10/2024 Clinical Communication Department of Ophthalmology in [address] [phone] Kenya Garza M.D. 02/25/2024 4:30 PM CDT Telemedicine Department of Neurology in [place], [place] [address] [place] [phone] Piter Baez M.D. Posterior Reversible Encephalopathy Syndrome (Primary Dx) 02/20/2024 12:10 AM CDT Ancillary Procedure Department of Ophthalmology 02/20/2024 12:05 AM CDT Ancillary Procedure Department of Ophthalmology 02/20/2024 Ancillary Procedure Department of Ophthalmology 02/20/2024 3:05 PM CDT - 02/20/2024 11:59 PM CDT Hospital Encounter Department of Radiology, [facility] in [place], [place] [address] [place] [phone] Piter Baez M.D. Posterior Reversible Encephalopathy Syndrome Discharge Disposition: Home or Self Care 02/20/2024 1:00 PM CDT Comprehensive Visit Department of Neurology in [address] [phone] Piter Baez M.D. Posterior Reversible Encephalopathy Syndrome 02/20/2024 11:15 AM CDT Office Visit Department of Ophthalmology in [place], [place] [address] [place] [phone] Kenya Garza M.D. Panuveitis Right (Primary Dx); Necrosis Retinal Acute Right 02/20/2024 10:00 AM CDT Ancillary Procedure Department of Ophthalmology in [address] [phone] Kenya Garza M.D. Panuveitis Right; Necrosis Retinal Acute Right 02/20/2024 9:50 AM CDT Ancillary Procedure Department of Ophthalmology in [place], [place] [address] [place] [phone] Kenya Garza M.D. Panuveitis Right; Necrosis Retinal Acute Right 01/31/2024 Clinical Communication Department of Neurology in [place], [place] [address] [place] [phone] Piter Baez M.D. Pre-visit Testing Orders 01/23/2024 12:00 PM CDT Office Visit Department of Ophthalmology in [place], [place] [address] [place] [address] Kenya Garza M.D. Panuveitis Right (Primary Dx); Necrosis Retinal Acute Right 01/20/2024 [facility] [address] [place] [address] Katerine Bashir M.D. Posterior Reversible Encephalopathy Syndrome (Primary Dx) from Last 3 Months Allergies Active Allergy Reactions Criticality Noted Date Comments Aller Xt-Spiro Pollen-[place] Blisters,Itching,Rash High 06/21/2020 Medications Medication Sig Dispensed [...] Never 06/27/2020 How often do you attend hoahaoism or methodist serv ices? Never 06/27/2020 Do you belong to any clubs o r organizations such as hoahaoism groups, unions, fraternal or athletic groups, or [...] medical care, and heating? Somewhat hard 06/27/2020 [facility] [place] of Occupat ional Health - Occupational Stress [...] CDT Comprehensive Visit Preoperative Evaluation Center in [place], [place] [address] [place] [phone] Prakash Graham M.D. [address] [place] [phone] 04/14/2024 1:30 PM CDT Ancillary Procedure Department of Ophthalmology in [place], [place] [address] [place] [phone] Kenya Garza M.D. [address] [place] [phone] 04/14/2024 2:10 PM CDT Ancillary Procedure Department of Ophthalmology in [place], [place] [address] [place] [phone] Prakash Graham M.D. [address] [place] [phone] 04/14/2024 2:30 PM CDT Office Visit Department of Ophthalmology in [place], [place] [address] [place] [phone] Prakash Graham M.D. [address] [place] [phone] 04/16/2024 12:30 PM CDT Ancillary Procedure Department of Ophthalmology in [place], [place] [address] [place] [phone] Prakash Graham M.D. [address] [place] [phone] 04/16/2024 1:00 PM CDT Ancillary Procedure Department of Ophthalmology in [place], [place] [address] [place] [phone] Kenya Garza M.D. [address] [place] [phone] 04/16/2024 2:00 PM CDT Ancillary Procedure Department of Ophthalmology in [place], [place] [address] [place] [phone] Kenya Garza M.D. [address] [place] [phone] 04/16/2024 2:30 PM CDT Office Visit Department of Ophthalmology in [place], [place] [address] [place] [phone] Kenya Garza M.D. [address] [place] [phone] 04/27/2024 10:02 AM CDT Hospital Encounter [facility] OR [facility] [place] [phone] Prakash Graham M.D. [address] [place] [phone] 04/27/2024 10:02 AM CDT - 04/27/2024 11:45 AM CDT Surgery [facility] OR [address] [place] [phone] Prakash Graham M.D. [address] [place] [phone] VITRECTOMY - PARS PLANA 25 GAUGE / MEMBRANE PEEL / SILICONE OIL AND ALL ASSOCIATED PROCEDURES RIGHT EYE 04/28/2024 8:00 AM CDT Office Visit Department of Ophthalmology in [place], [place] [address] [place] [phone] Prakash Graham M.D. [address] [place] [phone] 05/05/2024 1:15 PM CDT Ancillary Procedure Department of Ophthalmology in [place], [place] [address] [place] [phone] Prakash Graham M.D. [address] [place] [phone] 05/05/2024 1:45 PM CDT Office Visit Department of Ophthalmology in [place], [place] [address] [place] [phone] Prakash Graham M.D. [address] [place] [phone] 06/02/2024 8:15 AM CDT Ancillary Procedure Department of Ophthalmology in [place], [place] [address] [place] [phone] Prakash Graham M.D. [address] [place] [phone] 06/02/2024 8:45 AM CDT Ancillary Procedure Department of Ophthalmology in [place], [place] [address] [place] [phone] Prakash Graham M.D. [address] [place] [phone] 06/02/2024 9:00 AM CDT Office Visit Department of Ophthalmology in [place], [place] [address] [place] [phone] Prakash Graham M.D. [address] [place] [phone] Scheduled Procedures Name Priority Associated Diagnoses Date/Ti [...] workflow. ?? Provider Not In System IM NM PROCEDURES Performing Organization Address [facility] de Phone Number IINC NA * Cyclophotocoagulation, Transscleral - OD - [...] 9 o'clock right eye Prakash Graham M.D. [facility] PROCED URES Performing Organization Address [facility] Phone Number [facility] NON-IMAGING ORDERS * Ultrasound Biomicroscopy (UBM) [...] possible ciliochoroidal effusion. BriannaK Kenya Garza M.D. [facility] ULTRASOUND Performing Organization Address [facility] de Phone Number [facility] NON-IMAGING ORDERS * B-Scan Ultrasound - [...] Garza M.D. OPHTH ULTRASOUND Performing Organization Address [facility]/ZIP Co de Phone Number OPHTHALMOLGY NON-IMAGING ORDERS * Eyes US-Eye [id number] Image Exam (03/13/2024 12:10 AM CDT) Only [...] RAD IMAGI NG PROCEDURES Performing Organization Address [facility] Co de Phone Number IIMS NA * MR Brain without and with IV Contrast (02/20/2024 4:08 PM CDT) Anatomical Region Laterality Modality Head, Brain, Neuroradiology [facility] LOS, Neuroradiology [facility], Neuroradiology FLA LOS N/A Magnetic Resonance Impressions [...] Recently Relevant to Health Maintenance Care Teams Financial Compliance Manager Relationship Specialty Start Date End Date Elsewhere, Pcp PCP - General Internal Medicine 05/29/19
--- OUTSIDE RECORDS SUMMARY | 2024-04-12 18:09 | XMS_ITS | Encounter Summary ---
Author Organization [facility] Address [address] [place] [address] Care Team Providers Care Shipwright Supervisor Name Role Phone Elsewhere, Pcp Primary Care Provider Unavailabl e Reason for Referral * Outpatient (Routine) - Closed Specialty Diagnoses / Procedures Referred By Apolinar lopez Referred To Contact Procedures Cyclophotocoagulation, Transscleral - OD - Right Eye Prakash Graham M.D. [address] [place] [address] [facility] Referral ID Status Reason Start Date Expiration Date Visits Re quested Visits Authorized [id number] Closed 03/13/2024 03/13/2025 1 1 Reason for Visit * Outpatient (Routine) - Canceled Specialty Diagnoses / Procedures Referred By Apolinar lopez Referred To Contact Diagnoses Panuveitis Right Necrosis Retinal Acute Right Procedures Intravitreal Injection, Pharmacologic Agent - OD - Right Eye Prakash Graham M.D. [address] [place] [address] [facility] Referral ID Status Reason Start Date Expiration Date V isits Requested Visits Authorized [id number] Canceled 03/13/2024 03/13/2025 1 1 Encounter Details Date Type Department Care Team (Latest Contact Info) Description 03/13/2024 2:00 PM CDT Procedure visit Department of Ophthalmology in [place], [place] [address] [place] [phone] Prakash Graham M.D. [address] [place] [address] Primary Hypotony Right Eye (Primary Dx); Panuveitis Right; Necrosis Retinal Acute Right Social History Tobacco Use Types Packs/Day Years Used Date Smoking Tobacco: Light Smoker Cigarettes 0.5 44.1 Started: 02/26/1980 Smokeless Tobacco: Never Comments:On again off again Alcohol Use Standard Drinks/Week Comments Yes 0 (1 standard drink = 0.6 oz pur e alcohol) [facility] Utilities Answer Date Recorded In the [...] How often do you attend latter-day or denominational serv ices? Never 06/27/2020 Do [...] medical care, and heating? Somewhat hard 06/27/2020 [facility] [place] of Occupat ional Health - Occupational Stress [...] CDT Comprehensive Visit Preoperative Evaluation Center in [place], [place] [address] [place] [phone] Prakash Graham M.D. [address] [place] [phone] 04/14/2024 1:30 PM CDT Ancillary Procedure Department of Ophthalmology in [place], [place] [address] [place] [phone] Kenya Garza M.D. [address] [place] [phone] 04/14/2024 2:10 PM CDT Ancillary Procedure Department of Ophthalmology in [place], [place] [address] [place] [phone] Prakash Graham M.D. [address] [place] [phone] 04/14/2024 2:30 PM CDT Office Visit Department of Ophthalmology in [address] [phone] Prakash Graham M.D. [address] [place] [phone] 04/16/2024 12:30 PM CDT Ancillary Procedure Department of Ophthalmology in [address] [phone] Prakash Graham M.D. [address] [place] [phone] 04/16/2024 1:00 PM CDT Ancillary Procedure Department of Ophthalmology in [address] [phone] Kenya Garza M.D. [address] [place] [phone] 04/16/2024 2:00 PM CDT Ancillary Procedure Department of Ophthalmology in [place], [place] [address] [place] [phone] Kenya Garza M.D. [address] [place] [phone] 04/16/2024 2:30 PM CDT Office Visit Department of Ophthalmology in [place], [place] [address] [place] [phone] Kenya Garza M.D. [address] [place] [phone] 04/27/2024 10:02 AM CDT Hospital Encounter [facility] OR [facility] [place] [phone] Prakash Graham M.D. [address] [place] [phone] 04/27/2024 10:02 AM CDT - 04/27/2024 11:45 AM CDT Surgery [facility] OR [address] [place] [phone] Prakash Graham M.D. [address] [place] [phone] VITRECTOMY - PARS PLANA 25 GAUGE / MEMBRANE PEEL / SILICONE OIL AND ALL ASSOCIATED PROCEDURES RIGHT EYE 04/28/2024 8:00 AM CDT Office Visit Department of Ophthalmology in [place], [place] [address] [place] [phone] Prakash Graham M.D. [address] [place] [phone] 05/05/2024 1:15 PM CDT Ancillary Procedure Department of Ophthalmology in [place], [place] [address] [place] [phone] Prakash Graham M.D. [address] [place] [phone] 05/05/2024 1:45 PM CDT Office Visit Department of Ophthalmology in [place], [place] [address] [place] [phone] Prakash Graham M.D. [address] [place] [phone] 06/02/2024 8:15 AM CDT Ancillary Procedure Department of Ophthalmology in [place], [place] [address] [place] [phone] Prakash Graham M.D. [address] [place] [phone] 06/02/2024 8:45 AM CDT Ancillary Procedure Department of Ophthalmology in [place], [place] [address] [place] [phone] Prakash Graham M.D. [address] [place] [phone] 06/02/2024 9:00 AM CDT Office Visit Department of Ophthalmology in [place], [place] [address] [place] [phone] Prakash Graham M.D. [address] [place] [phone] Scheduled Procedures Name Priority Associated Diagnoses Date/Ti [...] OPHTH CLINIC PROCED URES Performing Organization Address City/State/[facility] Co de Phone Number OPHTHALMOLGY NON-IMAGING ORDERS documented in this encounter Visit Diagnoses Diagnosis Primary Hypotony Right Eye- Primary Panuveitis Right Necrosis Retinal Acute Right Panuveitis Right Necrosis Retinal Acute Right documented in this encounter Care Teams Shipwright Supervisor Relationship Specialty Start Date End Date Elsewhere, Pcp PCP - General Internal Medicine 05/29/19 documented as of this encounter
--- OUTSIDE RECORDS SUMMARY | 2024-04-12 18:09 | XMS_ITS | Encounter Summary ---
Author Organization [facility] Address [address] [place] [address] Care Team Providers Care Testing Tech Name Role Phone Elsewhere, Pcp Primary Care Provider Unavailabl e Reason for Visit * Reason Comments Med Refill Encounter Details Date Type Department Care Team ([facility] st Contact Info) Description 04/01/2024 Refill Department of Ophthalmology in [place], [place] [address] [place] [phone] Raffi Boyd M.D. [address] [place] [address] Med Refill Social History Tobacco Use Types Packs/Day Years Used Date Smoking Tobacco: Light Smoker Cigarettes 0.5 44.1 Started: 02/26/1980 Smokeless Tobacco: Never Comments:On again off again Alcohol Use Standard Drinks/Week Comments Yes 0 (1 standard drink = 0.6 oz pur e alcohol) [facility] Utilities Answer Date Recorded In the past 12 months has [employer], gas, oil, or water [employer] threatened to shut off services in your home? No 11/05/2023 Social Connection and Isolation Panel [NHANES] A nswer Date Recorded In a typical week, how many times do you talk on the phone with family, friends, or neighbors? Once a week 06/27/2020 How often do you get together with friends or re latives? Never 06/27/2020 How often do you attend episcopalian or buddhism serv ices? Never 06/27/2020 Do [...] Somewhat hard 06/27/2020 [facility] [place] of Occupat ional Health - Occupational Stress [...] CDT Comprehensive Visit Preoperative Evaluation Center in [place], [place] [address] [place] [phone] Prakash Graham M.D. [address] [place] [phone] 04/14/2024 1:30 PM CDT Ancillary Procedure Department of Ophthalmology in [place], [place] [address] [place] [phone] Kenya Garza M.D. [address] [place] [phone] 04/14/2024 2:10 PM CDT Ancillary Procedure Department of Ophthalmology in [place], [place] [address] [place] [phone] Prakash Graham M.D. [address] [place] [phone] 04/14/2024 2:30 PM CDT Office Visit Department of Ophthalmology in [place], [place] [address] [place] [phone] Prakash Graham M.D. [address] [place] [phone] 04/16/2024 12:30 PM CDT Ancillary Procedure Department of Ophthalmology in [place], [place] [address] [place] [phone] Prakash Graham M.D. [address] [place] [phone] 04/16/2024 1:00 PM CDT Ancillary Procedure Department of Ophthalmology in [place], [place] [address] [place] [phone] Kenya Garza M.D. [address] [place] [phone] 04/16/2024 2:00 PM CDT Ancillary Procedure Department of Ophthalmology in [place], [place] [address] [place] [phone] Kenya Garza M.D. [address] [place] [phone] 04/16/2024 2:30 PM CDT Office Visit Department of Ophthalmology in [place], [place] [address] [place] [phone] Kenya Garza M.D. [address] [place] [phone] 04/27/2024 10:02 AM CDT Hospital Encounter [facility] OR [facility] [place] [phone] Prakash Graham M.D. [address] [place] [phone] 04/27/2024 10:02 AM CDT - 04/27/2024 11:45 AM CDT Surgery [facility] OR [facility] [address] [place] [phone] Prakash Graham M.D. [address] [place] [phone] VITRECTOMY - PARS PLANA 25 GAUGE / MEMBRANE PEEL / SILICONE OIL AND ALL ASSOCIATED PROCEDURES RIGHT EYE 04/28/2024 8:00 AM CDT Office Visit Department of Ophthalmology in [place], [place] [address] [place] [phone] Prakash Graham M.D. [address] [place] [phone] 05/05/2024 1:15 PM CDT Ancillary Procedure Department of Ophthalmology in [place], [place] [address] [place] [phone] Prakash Graham M.D. [address] [place] [phone] 05/05/2024 1:45 PM CDT Office Visit Department of Ophthalmology in [place], [place] [address] [place] [phone] Prakash Graham M.D. [address] [place] [phone] 06/02/2024 8:15 AM CDT Ancillary Procedure Department of Ophthalmology in [address] [phone] Prakash Graham M.D. [address] [place] [phone] 06/02/2024 8:45 AM CDT Ancillary Procedure Department of Ophthalmology in [address] [phone] Prakash Graham M.D. [address] [place] [phone] 06/02/2024 9:00 AM CDT Office Visit Department of Ophthalmology in [place], [place] [address] [place] [address] Prakash Graham M.D. [address] [place] [address] Scheduled Procedures Name Priority Associated Diagnoses Date/Ti me VITRECTOMY - PARS PLANA 25 GAUGE Panuveitis Right Necrosis Retinal Acute Right 04/27/2024 10:02 AM CDT documented as of this encounter Visit Diagnoses Not on filedocumented in this encounter Care Teams Testing Tech Relationship Specialty Start Date End Date Elsewhere, Pcp PCP - General Internal Medicine 05/29/19 documented as of this encounter
--- OUTSIDE RECORDS SUMMARY | 2024-04-12 18:09 | XMS_ITS | Encounter Summary ---
Author Organization [facility] Address [address] [place] [address] Care Team Providers Care Dimmer Board Operator Name Role Phone Elsewhere, Pcp Primary Care Provider Unavailabl e Reason for Referral * Outpatient (Routine) - Authorized Specialty Diagnoses / Procedures Referred By Contmuriel t Referred To Contact Ophthalmology Prakash Graham M.D. [address] [place] [address] [facility] Referral ID Status Reason Start Date Expiration Date V isits Requested Visits Authorized [id number] Authorized 03/16/2024 09/15/2025 1 1 Encounter Details Date Type Department Care Team (Late st Contact Info) Description 03/16/2024 Orders Only Department of Ophthalmology in [place], [place] [address] [place] [phone] Jean Claude Newsome, C.O.A. Panuveitis Right (Primary Dx); Necrosis Retinal Acute Right Social History Tobacco Use Types Packs/Day Years Used Date Smoking Tobacco: Light Smoker Cigarettes 0.5 44.1 Started: 02/26/1980 Smokeless Tobacco: Never Comments:On again off again Alcohol Use Standard Drinks/Week Comments Yes 0 (1 standard drink = 0.6 oz pur e alcohol) [facility] Utilities Answer Date Recorded In the [...] Never 06/27/2020 How often do you attend jewish or sikh serv ices? Never 06/27/2020 Do you belong to any clubs o r organizations such as jewish groups, unions, fraternal or athletic groups, or [...] Somewhat hard 06/27/2020 [facility] [place] of Occupat ional Health - Occupational [...] today? I have a [facility] place to live 11/05/2023 Education Answer [...] CDT Comprehensive Visit Preoperative Evaluation Center in [place], [place] [address] [place] [address] Prakash Graham M.D. [address] [place] [phone] 04/14/2024 1:30 PM CDT Ancillary Procedure Department of Ophthalmology in [place], [place] [address] [place] [phone] Kenya Garza M.D. [address] [place] [phone] 04/14/2024 2:10 PM CDT Ancillary Procedure Department of Ophthalmology in [place], [place] [address] [place] [phone] Prakash Graham M.D. [address] [place] [phone] 04/14/2024 2:30 PM CDT Office Visit Department of Ophthalmology in [place], [place] [address] [place] [phone] Prakash Graham M.D. [address] [place] [phone] 04/16/2024 12:30 PM CDT Ancillary Procedure Department of Ophthalmology in [place], [place] [address] [place] [phone] Prakash Graham M.D. [address] [place] [phone] 04/16/2024 1:00 PM CDT Ancillary Procedure Department of Ophthalmology in [place], [place] [address] [place] [phone] Kenya Garza M.D. [address] [place] [phone] 04/16/2024 2:00 PM CDT Ancillary Procedure Department of Ophthalmology in [address] [phone] Kenya Garza M.D. [address] [place] [phone] 04/16/2024 2:30 PM CDT Office Visit Department of Ophthalmology in [place], [place] [address] [place] [phone] Kenya Garza M.D. [address] [place] [phone] 04/27/2024 10:02 AM CDT Hospital Encounter [facility] [place] [address] [place] [phone] Prakash Graham M.D. [address] [place] [phone] 04/27/2024 10:02 AM CDT - 04/27/2024 11:45 AM CDT Surgery [facility] [address] [place] [phone] Prakash Graham M.D. [address] [place] [phone] VITRECTOMY - PARS PLANA 25 GAUGE / MEMBRANE PEEL / SILICONE OIL AND ALL ASSOCIATED PROCEDURES RIGHT EYE 04/28/2024 8:00 AM CDT Office Visit Department of Ophthalmology in [place], [place] [address] [place] [phone] Prakash Graham M.D. [address] [place] [phone] 05/05/2024 1:15 PM CDT Ancillary Procedure Department of Ophthalmology in [place], [place] [address] [place] [phone] Prakash Graham M.D. [address] [place] [phone] 05/05/2024 1:45 PM CDT Office Visit Department of Ophthalmology in [place], [place] [address] [place] [phone] Prakash Graham M.D. [address] [place] [phone] 06/02/2024 8:15 AM CDT Ancillary Procedure Department of Ophthalmology in [place], [place] [address] [place] [phone] Prakash Graham M.D. [address] [place] [phone] 06/02/2024 8:45 AM CDT Ancillary Procedure Department of Ophthalmology in [place], [place] [address] [place] [phone] Prakash Graham M.D. [address] [place] [address] 06/02/2024 9:00 AM CDT Office Visit Department of Ophthalmology in [place], [place] [address] [place] [address] Prakash Graham M.D. [address] [place] [phone] Scheduled Orders Name Type Priority Associated Diagnoses [...] Right documented in this encounter Care Teams Dimmer Board Operator Relationship Specialty Start Date End Date Elsewhere, Pcp PCP - General Internal Medicine 05/29/19 documented as of this encounter
--- OUTSIDE RECORDS SUMMARY | 2024-04-12 18:09 | XMS_ITS | Encounter Summary ---
Author Organization [facility] Address [address] [place] [address] Care Team Providers Care Sales Operations Associate Name Role Phone Elsewhere, Pcp Primary Care Provider Unavailabl e Encounter Details Date Type Department Care Team (Late st Contact Info) Description 03/16/2024 Orders Only Department of Ophthalmology in [place], [place] [address] [place] [address] Shahnaz Amato, C.O.A. [address] [place] [address] Necrosis Retinal Acute Right (Primary Dx) Social [...] How often do you attend nondenominational or sabianism serv ices? Never 06/27/2020 Do [...] medical care, and heating? Somewhat hard 06/27/2020 [facility] [place] of Occupat ional Health - Occupational Stress [...] CDT Comprehensive Visit Preoperative Evaluation Center in [place], [place] [address] [place] [address] Prakash Graham M.D. [address] [place] [phone] 04/14/2024 1:30 PM CDT Ancillary Procedure Department of Ophthalmology in [place], [place] [address] [place] [phone] Kenya Garza M.D. [address] [place] [phone] 04/14/2024 2:10 PM CDT Ancillary Procedure Department of Ophthalmology in [place], [place] [address] [place] [phone] Prakash Graham M.D. [address] [place] [phone] 04/14/2024 2:30 PM CDT Office Visit Department of Ophthalmology in [place], [place] [address] [place] [phone] Prakash Graham M.D. [address] [place] [phone] 04/16/2024 12:30 PM CDT Ancillary Procedure Department of Ophthalmology in [place], [place] [address] [place] [phone] Prakash Graham M.D. [address] [place] [phone] 04/16/2024 1:00 PM CDT Ancillary Procedure Department of Ophthalmology in [place], [place] [address] [place] [phone] Kenya Garza M.D. [address] [place] [phone] 04/16/2024 2:00 PM CDT Ancillary Procedure Department of Ophthalmology in [place], [place] [address] [place] [phone] Kenya Garza M.D. [address] [place] [phone] 04/16/2024 2:30 PM CDT Office Visit Department of Ophthalmology in [place], [place] [address] [place] [phone] Kenya Garza M.D. [address] [place] [phone] 04/27/2024 10:02 AM CDT Hospital Encounter [facility] [place] [address] [place] [phone] Prakash Graham M.D. [address] [place] [phone] 04/27/2024 10:02 AM CDT - 04/27/2024 11:45 AM CDT Surgery [facility] [place] [address] [place] [phone] Prakash Graham M.D. [address] [place] [phone] VITRECTOMY - PARS PLANA 25 GAUGE / MEMBRANE PEEL / SILICONE OIL AND ALL ASSOCIATED PROCEDURES RIGHT EYE 04/28/2024 8:00 AM CDT Office Visit Department of Ophthalmology in [place], [place] [address] [place] [phone] Prakash Graham M.D. [address] [place] [phone] 05/05/2024 1:15 PM CDT Ancillary Procedure Department of Ophthalmology in [place], [place] [address] [place] [phone] Prakash Graham M.D. [address] [place] [phone] 05/05/2024 1:45 PM CDT Office Visit Department of Ophthalmology in [place], [place] [address] [place] [phone] Prakash Graham M.D. [address] [place] [phone] 06/02/2024 8:15 AM CDT Ancillary Procedure Department of Ophthalmology in [place], [place] [address] [place] [phone] Prakash Graham M.D. [address] [place] [phone] 06/02/2024 8:45 AM CDT Ancillary Procedure Department of Ophthalmology in [place], [place] [address] [place] [phone] Prakash Graham M.D. [address] [place] [phone] 06/02/2024 9:00 AM CDT Office Visit Department of Ophthalmology in [place], [place] [address] [place] [phone] Prakash Graham M.D. [address] [place] [phone] Scheduled Orders Name Type Priority Associated Diagnoses [...] documented in this encounter Care Teams Sales Operations Associate Relationship Specialty Start Date End Date Elsewhere, Pcp PCP - General Internal Medicine 05/29/19 documented as of this encounter
--- OUTSIDE RECORDS SUMMARY | 2024-04-12 18:09 | XMS_ITS ---
Author Organization [facility] Address [address] [place] [address] Care Team Providers Care Senior Windows Systems Administrator Name Role Phone Unavailable Unavailable Unavailable Surgery Details Not on file Complications Check Surgery Details section. Procedure Estimated Blood Loss Check Surgery Details section. Procedure Findings Check Surgery Details section. Procedure Specimens Taken Check Surgery Details section.
--- OUTSIDE RECORDS SUMMARY | 2024-04-12 18:09 | XMS_ITS | Encounter Summary ---
Author Organization [facility] Address [address] [place] [address] Care Team Providers Care Cushion Installer Name Role Phone Elsewhere, Pcp Primary Care Provider Unavailabl e Encounter Details Date Type Department Care Team (Late st Contact Info) Description 03/14/2024 Orders Only Department of Ophthalmology in [place], [place] [address] [place] [address] Raffi Boyd M.D. [address] [place] [address] Social History Tobacco Use Types Packs/Day Years Used Date Smoking Tobacco: Light Smoker Cigarettes 0.5 44.1 Started: 02/26/1980 Smokeless Tobacco: Never Comments:On again off again Alcohol Use Standard Drinks/Week Comments Yes 0 (1 standard drink = 0.6 oz pur e alcohol) [facility] Utilities Answer Date Recorded In the past 12 months has [employer], gas, oil, or water company threatened to [...] How often do you attend orthodox or voodoo serv ices? Never 06/27/2020 Do [...] medical care, and heating? Somewhat hard 06/27/2020 [facility] of Occupat ional Health - Occupational Stress [...] your living situation today? I have a [facility] place to live 11/05/2023 Education Answer Date [...] CDT Comprehensive Visit Preoperative Evaluation Center in [place], [place] [address] [place] [address] Prakash Graham M.D. [address] [place] [phone] 04/14/2024 1:30 PM CDT Ancillary Procedure Department of Ophthalmology in [place], [place] [address] [place] [phone] Kenya Garza M.D. [address] [place] [phone] 04/14/2024 2:10 PM CDT Ancillary Procedure Department of Ophthalmology in [place], [place] [address] [place] [phone] Prakash Graham M.D. [address] [place] [phone] 04/14/2024 2:30 PM CDT Office Visit Department of Ophthalmology in [place], [place] [address] [place] [phone] Prakash Graham M.D. [address] [place] [phone] 04/16/2024 12:30 PM CDT Ancillary Procedure Department of Ophthalmology in [place], [place] [address] [place] [phone] Prakash Graham M.D. [address] [place] [phone] 04/16/2024 1:00 PM CDT Ancillary Procedure Department of Ophthalmology in [place], [place] [address] [place] [phone] Kenya Garza M.D. [address] [place] [phone] 04/16/2024 2:00 PM CDT Ancillary Procedure Department of Ophthalmology in [place], [place] [address] [place] [phone] Kenya Garza M.D. [address] [place] [phone] 04/16/2024 2:30 PM CDT Office Visit Department of Ophthalmology in [place], [place] [address] [place] [phone] Kenya Garza M.D. [address] [place] [phone] 04/27/2024 10:02 AM CDT Hospital Encounter [facility] [place] [phone] Prakash Graham M.D. [address] [place] [phone] 04/27/2024 10:02 AM CDT - 04/27/2024 11:45 AM CDT Surgery [facility] [place] [address] [place] [phone] Prakash Graham M.D. [address] [place] [phone] VITRECTOMY - PARS PLANA 25 GAUGE / MEMBRANE PEEL / SILICONE OIL AND ALL ASSOCIATED PROCEDURES RIGHT EYE 04/28/2024 8:00 AM CDT Office Visit Department of Ophthalmology in [place], [place] [address] [place] [phone] Prakash Graham M.D. [address] [place] [phone] 05/05/2024 1:15 PM CDT Ancillary Procedure Department of Ophthalmology in [place], [place] [address] [place] [phone] Prakash Graham M.D. [address] [place] [phone] 05/05/2024 1:45 PM CDT Office Visit Department of Ophthalmology in [place], [place] [address] [place] [phone] Prakash Graham M.D. [address] [place] [phone] 06/02/2024 8:15 AM CDT Ancillary Procedure Department of Ophthalmology in [place], [place] [address] [place] [phone] Prakash Graham M.D. [address] [place] [phone] 06/02/2024 8:45 AM CDT Ancillary Procedure Department of Ophthalmology in [place], [place] [address] [place] [phone] Prakash Graham M.D. [address] [place] [phone] 06/02/2024 9:00 AM CDT Office Visit Department of Ophthalmology in [place], [place] [address] [place] [phone] Prakash Graham M.D. [address] [place] [address] Scheduled Procedures Name Priority Associated Diagnoses Date/Ti me VITRECTOMY - PARS PLANA 25 GAUGE Panuveitis Right Necrosis Retinal Acute Right 04/27/2024 10:02 AM CDT documented as of this encounter Visit Diagnoses Not on filedocumented in this encounter Care Teams Cushion Installer Relationship Specialty Start Date End Date Elsewhere, Pcp PCP - General Internal Medicine 05/29/19 documented as of this encounter
--- OUTSIDE RECORDS SUMMARY | 2024-04-12 18:10 | XMS_ITS | Encounter Summary ---
Author Organization [facility] Address [address] [place] [address] Care Team Providers Care Copy Editor Name Role Phone Elsewhere, Pcp Primary [...] Recorded In the past 12 months has [employer] electric, gas, oil, or water company threatened [...] How often do you attend quaker or confucianist serv ices? Never 06/27/2020 Do you belong [...] medical care, and heating? Somewhat hard 06/27/2020 [facility] - [facility] [...] your living situation today? I have a [facility] place to live 11/05/2023 Education Answer [...] CDT Comprehensive Visit Preoperative Evaluation Center in [place], [place] [address] [place] [phone] Prakash Graham M.D. [address] [place] [phone] 04/14/2024 1:30 PM CDT Ancillary Procedure Department of Ophthalmology in [address] [phone] Kenya Garza M.D. [address] [place] [phone] 04/14/2024 2:10 PM CDT Ancillary Procedure Department of Ophthalmology in [address] [phone] Prakash Graham M.D. [address] [place] [phone] 04/14/2024 2:30 PM CDT Office Visit Department of Ophthalmology in [address] [phone] Prakash Graham M.D. [address] [place] [phone] 04/16/2024 12:30 PM CDT Ancillary Procedure Department of Ophthalmology in [address] [phone] Prakash Graham M.D. [address] [place] [phone] 04/16/2024 1:00 PM CDT Ancillary Procedure Department of Ophthalmology in [place], [place] [address] [place] [phone] Kenya Garza M.D. [address] [place] [phone] 04/16/2024 2:00 PM CDT Ancillary Procedure Department of Ophthalmology in [place], [place] [address] [place] [phone] Kenya Garza M.D. [address] [place] [phone] 04/16/2024 2:30 PM CDT Office Visit Department of Ophthalmology in [place], [place] [address] [place] [phone] Kenya Garza M.D. [address] [place] [phone] 04/27/2024 10:02 AM CDT Hospital Encounter [facility] OR [facility] [address] [place] [phone] Prakash Graham M.D. [address] [place] [phone] 04/27/2024 10:02 AM CDT - 04/27/2024 11:45 AM CDT Surgery [facility] OR [facility] [address] [place] [phone] Prakash Graham M.D. [address] [place] [phone] VITRECTOMY - PARS PLANA 25 GAUGE / MEMBRANE PEEL / SILICONE OIL AND ALL ASSOCIATED PROCEDURES RIGHT EYE 04/28/2024 8:00 AM CDT Office Visit Department of Ophthalmology in [place], [place] [address] [place] [phone] Prakash Graham M.D. [address] [place] [phone] 05/05/2024 1:15 PM CDT Ancillary Procedure Department of Ophthalmology in [place], [place] [address] [place] [phone] Prakash Graham M.D. [address] [place] [phone] 05/05/2024 1:45 PM CDT Office Visit Department of Ophthalmology in [place], [place] [address] [place] [phone] Prakash Graham M.D. [address] [place] [phone] 06/02/2024 8:15 AM CDT Ancillary Procedure Department of Ophthalmology in [place], [place] [address] [place] [phone] Prakash Graham M.D. [address] [place] [phone] 06/02/2024 8:45 AM CDT Ancillary Procedure Department of Ophthalmology in [address] [phone] Prakash Graham M.D. [address] [place] [phone] 06/02/2024 9:00 AM CDT Office Visit Department of Ophthalmology in [address] [phone] Prakash Graham M.D. [address] [place] [phone] Scheduled Procedures Name Priority Associated Diagnoses Date/Ti [...] on filedocumented in this encounter Care Teams Copy Editor Relationship Specialty Start Date End Date Elsewhere, Pcp PCP - General Internal Medicine 05/29/19 documented as of this encounter
--- OUTSIDE RECORDS SUMMARY | 2024-04-12 18:10 | XMS_ITS | Encounter Summary ---
Author Organization [facility] Address [address] [place] [address] Care Team Providers Care Slip Presser Name Role Phone Elsewhere, Pcp Primary Care Provider Unavailabl e Reason for Referral * Outpatient (Routine) - Authorized Specialty Diagnoses / Procedures Referred By Contac t Referred To Contact Ophthalmology Prakash Graham M.D. [address] [place] [address] [facility] Referral ID Status Reason Start Date Expiration Date V isits Requested Visits Authorized [id number] Authorized 03/13/2024 09/12/2025 1 1 Scheduling Instructions 1 MO PO Right Eye, DILATE / OCT OU * Outpatient (Routine) - Authorized Specialty Diagnoses / Procedures Referred By Contac t Referred To Contact Ophthalmology Prakash Graham M.D. [address] [place] [phone] [facility] Referral ID Status Reason Start Date Expiration Date V isits Requested Visits Authorized [id number] Authorized 03/13/2024 09/12/2025 1 1 Scheduling Instructions 1 WK PO Right Eye, DILATE OD * Outpatient (Routine) - Authorized Specialty Diagnoses / Procedures Referred By Contac t Referred To Contact Ophthalmology Prakash Graham M.D. [address] [place] [address] [facility] Referral ID Status Reason Start Date Expiration Date V isits Requested Visits Authorized [id number] Authorized 03/13/2024 09/12/2025 1 1 Scheduling Instructions 1 DAY PO Right Eye * Outpatient (Routine) - Authorized Specialty Diagnoses / Procedures Referred By Apolinar lopez Referred To Contact Anesthesiology Diagnoses Panuveitis Right Necrosis Retinal Acute Right Prakash Graham M.D. [address] [place] [address] [facility] Referral ID Status Reason Start Date Expiration Date V isits Requested Visits Authorized [id number] Authorized 03/13/2024 09/12/2025 1 1 * Outpatient (Routine) - Canceled Specialty Diagnoses / Procedures Referred By Apolinar lopez Referred To Contact Diagnoses Panuveitis Right Necrosis Retinal Acute Right Procedures Intravitreal Injection, Pharmacologic Agent - OD - Right Eye Prakash Graham M.D. [address] [place] [address] [facility] Referral ID Status Reason Start Date Expiration Date V isits Requested Visits Authorized [id number] Canceled 03/13/2024 03/13/2025 1 1 Encounter Details Date Type Department Care Team (Latest Contact Info) Description 03/13/2024 1:00 PM CDT Office Visit Department of Ophthalmology in [place], [place] [address] [place] [phone] Prakash Graham M.D. [address] [place] [phone] Panuveitis Right (Primary Dx); Necrosis Retinal Acute Right Social History Tobacco Use Types Packs/Day Years Used Date Smoking Tobacco: Light Smoker Cigarettes 0.5 44.1 Started: 02/26/1980 Smokeless Tobacco: Never Comments:On again off again Alcohol Use Standard Drinks/Week Comments Yes 0 (1 standard drink = 0.6 oz pur e alcohol) [facility] Utilities Answer Date Recorded In [...] How often do you attend religious or lutheran serv ices? Never 06/27/2020 Do [...] and heating? Somewhat hard 06/27/2020 [facility] of Occupat ional Health - Occupational Stress [...] CDT Comprehensive Visit Preoperative Evaluation Center in [place], [place] [address] [place] [phone] Prakash Graham M.D. [address] [place] [phone] 04/14/2024 1:30 PM CDT Ancillary Procedure Department of Ophthalmology in [place], [place] [address] [place] [phone] Kenya Garza M.D. [address] [place] [phone] 04/14/2024 2:10 PM CDT Ancillary Procedure Department of Ophthalmology in [place], [place] [address] [place] [phone] Prakash Graham M.D. [address] [place] [phone] 04/14/2024 2:30 PM CDT Office Visit Department of Ophthalmology in [place], [place] [address] [place] [phone] Prakash Graham M.D. [address] [place] [phone] 04/16/2024 12:30 PM CDT Ancillary Procedure Department of Ophthalmology in [place], [place] [address] [place] [phone] Prakash Graham M.D. [address] [place] [phone] 04/16/2024 1:00 PM CDT Ancillary Procedure Department of Ophthalmology in [place], [place] [address] [place] [phone] Kenya Garza M.D. [address] [place] [phone] 04/16/2024 2:00 PM CDT Ancillary Procedure Department of Ophthalmology in [place], [place] [address] [place] [phone] Kenya Garza M.D. [address] [place] [phone] 04/16/2024 2:30 PM CDT Office Visit Department of Ophthalmology in [place], [place] [address] [place] [phone] Kenya Garza M.D. [address] [place] [phone] 04/27/2024 10:02 AM CDT Hospital Encounter [facility] [address] [place] [phone] Prakash Graham M.D. [address] [place] [phone] 04/27/2024 10:02 AM CDT - 04/27/2024 11:45 AM CDT Surgery [facility] [address] [place] [phone] Prakash Graham M.D. [address] [place] [phone] VITRECTOMY - PARS PLANA 25 GAUGE / MEMBRANE PEEL / SILICONE OIL AND ALL ASSOCIATED PROCEDURES RIGHT EYE 04/28/2024 8:00 AM CDT Office Visit Department of Ophthalmology in [place], [place] [address] [place] [phone] Prakash Graham M.D. [address] [place] [phone] 05/05/2024 1:15 PM CDT Ancillary Procedure Department of Ophthalmology in [place], [place] [address] [place] [phone] Prakash Graham M.D. [address] [place] [phone] 05/05/2024 1:45 PM CDT Office Visit Department of Ophthalmology in [place], [place] [address] [place] [phone] Prakash Graham M.D. [address] [place] [phone] 06/02/2024 8:15 AM CDT Ancillary Procedure Department of Ophthalmology in [place], [place] [address] [place] [phone] Prakash Graham M.D. [address] [place] [phone] 06/02/2024 8:45 AM CDT Ancillary Procedure Department of Ophthalmology in [place], [place] [address] [place] [address] Prakash Graham M.D. [address] [place] [address] 06/02/2024 9:00 AM CDT Office Visit Department of Ophthalmology in [place], [place] [address] [place] [address] Prakash Graham M.D. [address] [place] [address] Scheduled Orders Name Type Priority Associated Diagnoses [...] Right documented in this encounter Care Teams Slip Presser Relationship Specialty Start Date End Date Elsewhere, Pcp PCP - General Internal Medicine 05/29/19 documented as of this encounter
--- OUTSIDE RECORDS SUMMARY | 2024-04-12 18:10 | XMS_ITS | Encounter Summary ---
Author Organization [facility] Address [address] [place] [address] Care Team Providers Care University Intern Name Role Phone Elsewhere, Pcp Primary Care Provider Unavailabl e Encounter Details Date Type Department Care Team (Late st Contact Info) Description 03/13/2024 Orders Only Department of Ophthalmology in [place], [place] [address] [place] [address] Jean Claude Newsome, C.O.A. Necrosis Retinal Acute [...] Recorded In the past 12 months has [employer] electric, gas, oil, or water company threatened [...] Never 06/27/2020 How often do you attend anglican or judaism serv ices? Never 06/27/2020 Do you belong to any clubs o r organizations such as anglican groups, unions, fraternal or athletic groups, or [...] care, and heating? Somewhat hard 06/27/2020 [facility] [place] of Occupat ional Health - Occupational Stress [...] living situation today? [facility] 11/05/2023 Education Answer Date [...] CDT Comprehensive Visit Preoperative Evaluation Center in [place], [place] [address] [place] [phone] Prakash Graham M.D. [address] [place] [phone] 04/14/2024 1:30 PM CDT Ancillary Procedure Department of Ophthalmology in [place], [place] [address] [place] [phone] Kenya Garza M.D. [address] [place] [phone] 04/14/2024 2:10 PM CDT Ancillary Procedure Department of Ophthalmology in [place], [place] [address] [place] [phone] Prakash Graham M.D. [address] [place] [phone] 04/14/2024 2:30 PM CDT Office Visit Department of Ophthalmology in [place], [place] [address] [place] [phone] Prakash Graham M.D. [address] [place] [phone] 04/16/2024 12:30 PM CDT Ancillary Procedure Department of Ophthalmology in [place], [place] [address] [place] [phone] Prakash Graham M.D. [address] [place] [phone] 04/16/2024 1:00 PM CDT Ancillary Procedure Department of Ophthalmology in [place], [place] [address] [place] [phone] Kenya Garza M.D. [address] [place] [phone] 04/16/2024 2:00 PM CDT Ancillary Procedure Department of Ophthalmology in [place], [place] [address] [place] [phone] Kenya Garza M.D. [address] [place] [phone] 04/16/2024 2:30 PM CDT Office Visit Department of Ophthalmology in [place], [place] [address] [place] [phone] Kenya Garza M.D. [address] [place] [phone] 04/27/2024 10:02 AM CDT Hospital Encounter [facility] [place] [phone] Prakash Graham M.D. [address] [place] [phone] 04/27/2024 10:02 AM CDT - 04/27/2024 11:45 AM CDT Surgery [facility] [address] [place] [phone] Prakash Graham M.D. [address] [place] [phone] VITRECTOMY - PARS PLANA 25 GAUGE / MEMBRANE PEEL / SILICONE OIL AND ALL ASSOCIATED PROCEDURES RIGHT EYE 04/28/2024 8:00 AM CDT Office Visit Department of Ophthalmology in [place], [place] [address] [place] [phone] Prakash Graham M.D. [address] [place] [phone] 05/05/2024 1:15 PM CDT Ancillary Procedure Department of Ophthalmology in [place], [place] [address] [place] [phone] Prakash Graham M.D. [address] [place] [phone] 05/05/2024 1:45 PM CDT Office Visit Department of Ophthalmology in [place], [place] [address] [place] [phone] Prakash Graham M.D. [address] [place] [phone] 06/02/2024 8:15 AM CDT Ancillary Procedure Department of Ophthalmology in [place], [place] [address] [place] [phone] Prakash Graham M.D. [address] [place] [phone] 06/02/2024 8:45 AM CDT Ancillary Procedure Department of Ophthalmology in [place], [place] [address] [place] [phone] Prakash Graham M.D. [address] [place] [phone] 06/02/2024 9:00 AM CDT Office Visit Department of Ophthalmology in [place], [place] [address] [place] [phone] Praaksh Graham M.D. [address] [place] [address] Scheduled Procedures Name Priority Associated Diagnoses Date/Ti me VITRECTOMY - PARS PLANA 25 GAUGE Panuveitis Right Necrosis Retinal Acute Right 04/27/2024 10:02 AM CDT documented as of this encounter Visit Diagnoses Diagnosis Necrosis Retinal Acute Right- Primary Panuveitis Right Necrosis Retinal Acute Right documented in this encounter Care Teams University Intern Relationship Specialty Start Date End Date Elsewhere, Pcp PCP - General Internal Medicine 05/29/19 documented as of this encounter
--- OUTSIDE RECORDS SUMMARY | 2024-04-12 18:10 | XMS_ITS | Encounter Summary ---
Author Organization [facility] Address [address] [place] [address] Care Team Providers Care Seamer Operator Name Role Phone Elsewhere, Pcp Primary [...] Recorded In the past 12 months has [email or web address] electric, gas, oil, or water company threatened [...] How often do you attend tenriism or worship serv ices? Never 06/27/2020 Do you belong [...] medical care, and heating? Somewhat hard 06/27/2020 [facility] - Occupational Stress Questionnaire Answer [...] CDT Comprehensive Visit Preoperative Evaluation Center in [place], [place] [address] [place] [phone] Prakash Graham M.D. [address] [place] [phone] 04/14/2024 1:30 PM CDT Ancillary Procedure Department of Ophthalmology in [address] [phone] Kenya Garza M.D. [address] [place] [phone] 04/14/2024 2:10 PM CDT Ancillary Procedure Department of Ophthalmology in [address] [phone] Prakash Graham M.D. [address] [place] [phone] 04/14/2024 2:30 PM CDT Office Visit Department of Ophthalmology in [address] [phone] Prakash Graham M.D. [address] [place] [phone] 04/16/2024 12:30 PM CDT Ancillary Procedure Department of Ophthalmology in [address] [phone] Prakash Graham M.D. [address] [place] [phone] 04/16/2024 1:00 PM CDT Ancillary Procedure Department of Ophthalmology in [place], [place] [address] [place] [phone] Kenya Garza M.D. [address] [place] [phone] 04/16/2024 2:00 PM CDT Ancillary Procedure Department of Ophthalmology in [place], [place] [address] [place] [phone] Kenya Garza M.D. [address] [place] [phone] 04/16/2024 2:30 PM CDT Office Visit Department of Ophthalmology in [place], [place] [address] [place] [phone] Kenya Garza M.D. [address] [place] [phone] 04/27/2024 10:02 AM CDT Hospital Encounter [facility] [address] [place] [phone] Prakash Graham M.D. [address] [place] [phone] 04/27/2024 10:02 AM CDT - 04/27/2024 11:45 AM CDT Surgery [facility] [address] [place] [phone] Prakash Graham M.D. [address] [place] [phone] VITRECTOMY - PARS PLANA 25 GAUGE / MEMBRANE PEEL / SILICONE OIL AND ALL ASSOCIATED PROCEDURES RIGHT EYE 04/28/2024 8:00 AM CDT Office Visit Department of Ophthalmology in [place], [place] [address] [place] [phone] Prakash Graham M.D. [address] [place] [phone] 05/05/2024 1:15 PM CDT Ancillary Procedure Department of Ophthalmology in [place], [place] [address] [place] [phone] Prakash Graham M.D. [address] [place] [phone] 05/05/2024 1:45 PM CDT Office Visit Department of Ophthalmology in [place], [place] [address] [place] [phone] Prakash Graham M.D. [address] [place] [phone] 06/02/2024 8:15 AM CDT Ancillary Procedure Department of Ophthalmology in [place], [place] [address] [place] [phone] Prakash Graham M.D. [address] [place] [phone] 06/02/2024 8:45 AM CDT Ancillary Procedure Department of Ophthalmology in [address] [phone] Prakash Graham M.D. [address] [place] [phone] 06/02/2024 9:00 AM CDT Office Visit Department of Ophthalmology in [address] [phone] Prakash Graham M.D. [address] [place] [phone] Scheduled Procedures Name Priority Associated Diagnoses Date/Ti me VITRECTOMY - PARS PLANA 25 GAUGE Panuveitis Right Necrosis Retinal Acute Right 04/27/2024 10:02 AM CDT documented as of this encounter Procedures Procedure Name Priority Date/Time Associated Diagnosis Comments OPHTHALMOLOGY IMAGE EXAM Routine 03/13/2024 12:10 AM CDT documented in this encounter Results * Eyes US-Eye V-[id number] Image Exam (03/13/2024 12:10 AM CDT) Narrative [...] on filedocumented in this encounter Care Teams Seamer Operator Relationship Specialty Start Date End Date Elsewhere, Pcp PCP - General Internal Medicine 05/29/19 documented as of this encounter
--- OUTSIDE RECORDS SUMMARY | 2024-04-12 18:10 | XMS_ITS | Encounter Summary ---
Author Organization [facility] Address [address] [place] [address] Care Team Providers Care Certified Social Workers In Health Care Name Role Phone Elsewhere, Pcp Primary Care Provider Unavailabl e Encounter Details Date Type Department Care Team (Latest Contact Info) Description 03/10/2024 Clinical Communication Department of Ophthalmology in [place], [place] [address] [place] [address] Kenya Garza M.D. [address] [place] [address] Social History Tobacco Use Types Packs/Day Years Used Date Smoking Tobacco: Light Smoker Cigarettes 0.5 44.1 Started: 02/26/1980 Smokeless Tobacco: Never Comments:On again off again Alcohol Use Standard Drinks/Week Comments Yes 0 (1 standard drink = 0.6 oz pur e alcohol) [facility] Utilities Answer Date Recorded In the past 12 months has [employer], gas, oil, or water company threatened to [...] How often do you attend evangelical or alevism serv ices? Never 06/27/2020 Do [...] medical care, and heating? Somewhat hard 06/27/2020 [facility] [place] of Occupat ional Health - Occupational Stress [...] situation today? I have a [facility] to live 11/05/2023 Education Answer [...] CDT Comprehensive Visit Preoperative Evaluation Center in [place], [place] [address] [place] [address] Prakash Graham M.D. [address] [place] [phone] 04/14/2024 1:30 PM CDT Ancillary Procedure Department of Ophthalmology in [place], [place] [address] [place] [phone] Kenya Garza M.D. [address] [place] [phone] 04/14/2024 2:10 PM CDT Ancillary Procedure Department of Ophthalmology in [place], [place] [address] [place] [phone] Prakash Graham M.D. [address] [place] [phone] 04/14/2024 2:30 PM CDT Office Visit Department of Ophthalmology in [place], [place] [address] [place] [phone] Prakash Graham M.D. [address] [place] [phone] 04/16/2024 12:30 PM CDT Ancillary Procedure Department of Ophthalmology in [place], [place] [address] [place] [phone] Prakash Graham M.D. [address] [place] [phone] 04/16/2024 1:00 PM CDT Ancillary Procedure Department of Ophthalmology in [place], [place] [address] [place] [phone] Kenya Garza M.D. [address] [place] [phone] 04/16/2024 2:00 PM CDT Ancillary Procedure Department of Ophthalmology in [place], [place] [address] [place] [phone] Kenya Garza M.D. [address] [place] [phone] 04/16/2024 2:30 PM CDT Office Visit Department of Ophthalmology in [place], [place] [address] [place] [phone] Kenya Garza M.D. [address] [place] [phone] 04/27/2024 10:02 AM CDT Hospital Encounter [facility] [place] [address] [place] [phone] Prakash Graham M.D. [address] [place] [phone] 04/27/2024 10:02 AM CDT - 04/27/2024 11:45 AM CDT Surgery [facility] [address] [place] [phone] Prakash Graham M.D. [address] [place] [phone] VITRECTOMY - PARS PLANA 25 GAUGE / MEMBRANE PEEL / SILICONE OIL AND ALL ASSOCIATED PROCEDURES RIGHT EYE 04/28/2024 8:00 AM CDT Office Visit Department of Ophthalmology in [place], [place] [address] [place] [phone] Prakash Graham M.D. [address] [place] [phone] 05/05/2024 1:15 PM CDT Ancillary Procedure Department of Ophthalmology in [place], [place] [address] [place] [phone] Prakash Graham M.D. [address] [place] [phone] 05/05/2024 1:45 PM CDT Office Visit Department of Ophthalmology in [place], [place] [address] [place] [phone] Prakash Graham M.D. [address] [place] [phone] 06/02/2024 8:15 AM CDT Ancillary Procedure Department of Ophthalmology in [place], [place] [address] [place] [phone] Prakash Graham M.D. [address] [place] [phone] 06/02/2024 8:45 AM CDT Ancillary Procedure Department of Ophthalmology in [place], [place] [address] [place] [phone] Prakash Graham M.D. [address] [place] [phone] 06/02/2024 9:00 AM CDT Office Visit Department of Ophthalmology in [place], [place] [address] [place] [phone] Prakash Graham M.D. [address] [place] [phone] Scheduled Procedures Name Priority Associated Diagnoses Date/Ti me VITRECTOMY - PARS PLANA 25 GAUGE Panuveitis Right Necrosis Retinal Acute Right 04/27/2024 10:02 AM CDT documented as of this encounter Visit Diagnoses Not on filedocumented in this encounter Care Teams Certified Social Workers In Health Care Relationship Specialty Start Date End Date Elsewhere, Pcp PCP - General Internal Medicine 05/29/19 documented as of this encounter
--- OUTSIDE RECORDS SUMMARY | 2024-04-12 18:10 | XMS_ITS | Encounter Summary ---
Author Organization [facility] Address [address] [place] [address] Care Team Providers Care Mechanical Unit Repairer Name Role Phone Elsewhere, Pcp Primary Care Provider Unavailabl e Encounter Details Date Type Department Care Team (Latest Contact Info) Description 03/11/2024 Clinical Communication Department of Ophthalmology in [place], [place] [address] [place] [address] eKnya Garza M.D. [address] [place] [address] Social History Tobacco Use Types Packs/Day Years Used Date Smoking Tobacco: Light Smoker Cigarettes 0.5 44.1 Started: 02/26/1980 Smokeless Tobacco: Never Comments:On again off again Alcohol Use Standard Drinks/Week Comments Yes 0 (1 standard drink = 0.6 oz pur e alcohol) [facility] Utilities Answer Date Recorded In the past [address], gas, oil, or water company threatened to [...] medical care, and heating? Somewhat hard 06/27/2020 [facility]at [facility] - Occupational Stress [...] CDT Comprehensive Visit Preoperative Evaluation Center in [place], [place] [address] [place] [address] Prakash Graham M.D. [address] [place] [phone] 04/14/2024 1:30 PM CDT Ancillary Procedure Department of Ophthalmology in [place], [place] [address] [place] [phone] Kenya Garza M.D. [address] [place] [phone] 04/14/2024 2:10 PM CDT Ancillary Procedure Department of Ophthalmology in [place], [place] [address] [place] [phone] Prakash Graham M.D. [address] [place] [phone] 04/14/2024 2:30 PM CDT Office Visit Department of Ophthalmology in [place], [place] [address] [place] [phone] Prakash Graham M.D. [address] [place] [phone] 04/16/2024 12:30 PM CDT Ancillary Procedure Department of Ophthalmology in [place], [place] [address] [place] [phone] Prakash Graham M.D. [address] [place] [phone] 04/16/2024 1:00 PM CDT Ancillary Procedure Department of Ophthalmology in [place], [place] [address] [place] [phone] Kenya Garza M.D. [address] [place] [phone] 04/16/2024 2:00 PM CDT Ancillary Procedure Department of Ophthalmology in [place], [place] [address] [place] [phone] Kenya Garza M.D. [address] [place] [phone] 04/16/2024 2:30 PM CDT Office Visit Department of Ophthalmology in [place], [place] [address] [place] [phone] Kenya Garza M.D. [address] [place] [phone] 04/27/2024 10:02 AM CDT Hospital Encounter [facility] OR [address] [place] [phone] Prakash Graham M.D. [address] [place] [phone] 04/27/2024 10:02 AM CDT - 04/27/2024 11:45 AM CDT Surgery [facility] OR [address] [place] [phone] Prakash Graham M.D. [address] [place] [phone] VITRECTOMY - PARS PLANA 25 GAUGE / MEMBRANE PEEL / SILICONE OIL AND ALL ASSOCIATED PROCEDURES RIGHT EYE 04/28/2024 8:00 AM CDT Office Visit Department of Ophthalmology in [place], [place] [address] [place] [phone] Prakash Graham M.D. [address] [place] [phone] 05/05/2024 1:15 PM CDT Ancillary Procedure Department of Ophthalmology in [place], [place] [address] [place] [phone] Prakash Graham M.D. [address] [place] [phone] 05/05/2024 1:45 PM CDT Office Visit Department of Ophthalmology in [place], [place] [address] [place] [phone] Prakash Graahm M.D. [address] [place] [phone] 06/02/2024 8:15 AM CDT Ancillary Procedure Department of Ophthalmology in [place], [place] [address] [place] [phone] Prakash Graham M.D. [address] [place] [phone] 06/02/2024 8:45 AM CDT Ancillary Procedure Department of Ophthalmology in [place], [place] [address] [place] [phone] Prakash Graham M.D. [address] [place] [phone] 06/02/2024 9:00 AM CDT Office Visit Department of Ophthalmology in [place], [place] [address] [place] [phone] Prakash Graham M.D. [address] [place] [address] Scheduled Procedures Name Priority Associated Diagnoses Date/Ti me VITRECTOMY - PARS PLANA 25 GAUGE Panuveitis Right Necrosis Retinal Acute Right 04/27/2024 10:02 AM CDT documented as of this encounter Visit Diagnoses Not on filedocumented in this encounter Care Teams Mechanical Unit Repairer Relationship Specialty Start Date End Date Elsewhere, Pcp PCP - General Internal Medicine 05/29/19 documented as of this encounter
--- OUTSIDE RECORDS SUMMARY | 2024-04-12 18:10 | XMS_ITS | Encounter Summary ---
Author Organization [facility] Address [address] [place] [address] Care Team Providers Care Agents' Records Clerk Name Role Phone Elsewhere, Pcp Primary Care Provider Unavailabl e Encounter Details Date Type Department Care Team (Latest Contact Info) Description 03/13/2024 8:00 AM CDT Ancillary Procedure Department of Ophthalmology in [place], [place] [address] [place] [address] Kenya Garza M.D. [address] [place] [address] Panuveitis Right; Necrosis Retinal Acute Right Social History Tobacco Use Types Packs/Day Years Used Date Smoking Tobacco: Light Smoker Cigarettes 0.5 44.1 Started: 02/26/1980 Smokeless Tobacco: Never Comments:On again off again Alcohol Use Standard Drinks/Week Comments Yes 0 (1 standard drink = 0.6 oz pur e alcohol) [facility] Utilities Answer Date Recorded In the past 12 months has [employer], gas, oil, or water [employer] threatened to shut off services in your home? No 11/05/2023 Social Connection and Isolation Panel [NHANES] A nswer Date Recorded In a typical week, how many times do you talk on the phone with family, friends, or neighbors? Once a week 06/27/2020 How often do you get together with friends or re latives? Never 06/27/2020 How often do you attend buddhism or samaritan serv ices? Never 06/27/2020 Do [...] medical care, and heating? Somewhat hard 06/27/2020 [facility] Occupat ional Health - Occupational [...] CDT Comprehensive Visit Preoperative Evaluation Center in [place], [place] [address] [place] [phone] Prakash Graham M.D. [address] [place] [phone] 04/14/2024 1:30 PM CDT Ancillary Procedure Department of Ophthalmology in [place], [place] [address] [place] [phone] Kenya Garza M.D. [address] [place] [phone] 04/14/2024 2:10 PM CDT Ancillary Procedure Department of Ophthalmology in [place], [place] [address] [place] [phone] Prakash Graham M.D. [address] [place] [phone] 04/14/2024 2:30 PM CDT Office Visit Department of Ophthalmology in [place], [place] [address] [place] [phone] Prakash Graham M.D. [address] [place] [phone] 04/16/2024 12:30 PM CDT Ancillary Procedure Department of Ophthalmology in [place], [place] [address] [place] [phone] Prakash Graham M.D. [address] [place] [phone] 04/16/2024 1:00 PM CDT Ancillary Procedure Department of Ophthalmology in [place], [place] [address] [place] [phone] Kenya Garza M.D. [address] [place] [phone] 04/16/2024 2:00 PM CDT Ancillary Procedure Department of Ophthalmology in [place], [place] [address] [place] [phone] Kenya Garza M.D. [address] [place] [phone] 04/16/2024 2:30 PM CDT Office Visit Department of Ophthalmology in [place], [place] [address] [place] [phone] Kenya Garza M.D. [address] [place] [phone] 04/27/2024 10:02 AM CDT Hospital Encounter [facility] OR [facility] [address] [place] [phone] Prakash Graham M.D. [address] [place] [phone] 04/27/2024 10:02 AM CDT - 04/27/2024 11:45 AM CDT Surgery T [facility] OR [facility] [address] [place] [phone] Prakash Graham M.D. [address] [place] [phone] VITRECTOMY - PARS PLANA 25 GAUGE / MEMBRANE PEEL / SILICONE OIL AND ALL ASSOCIATED PROCEDURES RIGHT EYE 04/28/2024 8:00 AM CDT Office Visit Department of Ophthalmology in [place], [place] [address] [place] [phone] Prakash Graham M.D. [address] [place] [phone] 05/05/2024 1:15 PM CDT Ancillary Procedure Department of Ophthalmology in [place], [place] [address] [place] [phone] Prakash Graham M.D. [address] [place] [phone] 05/05/2024 1:45 PM CDT Office Visit Department of Ophthalmology in [place], [place] [address] [place] [phone] Prakash Graham M.D. [address] [place] [phone] 06/02/2024 8:15 AM CDT Ancillary Procedure Department of Ophthalmology in [place], [place] [address] [place] [phone] Prakash Graham M.D. [address] [place] [phone] 06/02/2024 8:45 AM CDT Ancillary Procedure Department of Ophthalmology in [place], [place] [address] [place] [phone] Prakash Graham M.D. [address] [place] [phone] 06/02/2024 9:00 AM CDT Office Visit Department of Ophthalmology in [place], [place] [address] [place] [address] Prakash Graham M.D. [address] [place] [address] Scheduled Procedures Name Priority Associated Diagnoses Date/Ti [...] Right documented in this encounter Care Teams Agents' Records Clerk Relationship Specialty Start Date End Date Elsewhere, Pcp PCP - General Internal Medicine 05/29/19 documented as of this encounter
--- OUTSIDE RECORDS SUMMARY | 2024-04-12 18:10 | XMS_ITS | Encounter Summary ---
Author Organization [facility] Address [address] [place] [address] Care Team Providers Care Junior Art Director Name Role Phone Elsewhere, Pcp Primary [...] drink = 0.6 oz pur e alcohol) [facility] Utilities Answer Date Recorded In the past 12 months has [employer], gas, oil, or water company threatened [...] How often do you attend religion or jain serv ices? Never 06/27/2020 Do [...] heating? Somewhat hard 06/27/2020 [facility] - Occupational Stress Questionnaire Answer [...] CDT Comprehensive Visit Preoperative Evaluation Center in [place], [place] [address] [place] [phone] Prakash Graham M.D. [address] [place] [phone] 04/14/2024 1:30 PM CDT Ancillary Procedure Department of Ophthalmology in [address] [phone] Kenya Garza M.D. [address] [place] [phone] 04/14/2024 2:10 PM CDT Ancillary Procedure Department of Ophthalmology in [address] [phone] Prakash Graham M.D. [address] [place] [phone] 04/14/2024 2:30 PM CDT Office Visit Department of Ophthalmology in [address] [phone] Prakash Graham M.D. [address] [place] [phone] 04/16/2024 12:30 PM CDT Ancillary Procedure Department of Ophthalmology in [address] [phone] Prakash Graham M.D. [address] [place] [phone] 04/16/2024 1:00 PM CDT Ancillary Procedure Department of Ophthalmology in [place], [place] [address] [place] [phone] Kenya Garza M.D. [address] [place] [phone] 04/16/2024 2:00 PM CDT Ancillary Procedure Department of Ophthalmology in [place], [place] [address] [place] [phone] Kenya Garza M.D. [address] [place] [phone] 04/16/2024 2:30 PM CDT Office Visit Department of Ophthalmology in [place], [place] [address] [place] [phone] Kenya Garza M.D. [address] [place] [phone] 04/27/2024 10:02 AM CDT Hospital Encounter [facility] OR [facility] [place] [phone] Prakash Graham M.D. [address] [place] [phone] 04/27/2024 10:02 AM CDT - 04/27/2024 11:45 AM CDT Surgery [facility] OR [facility] [place] [phone] Prakash Graham M.D. [address] [place] [phone] VITRECTOMY - PARS PLANA 25 GAUGE / MEMBRANE PEEL / SILICONE OIL AND ALL ASSOCIATED PROCEDURES RIGHT EYE 04/28/2024 8:00 AM CDT Office Visit Department of Ophthalmology in [place], [place] [address] [place] [phone] Prakash Graham M.D. [address] [place] [phone] 05/05/2024 1:15 PM CDT Ancillary Procedure Department of Ophthalmology in [place], [place] [address] [place] [phone] Prakash Graham M.D. [address] [place] [phone] 05/05/2024 1:45 PM CDT Office Visit Department of Ophthalmology in [place], [place] [address] [place] [phone] Prakash Graham M.D. [address] [place] [phone] 06/02/2024 8:15 AM CDT Ancillary Procedure Department of Ophthalmology in [place], [place] [address] [place] [phone] Prakash Graham M.D. [address] [place] [phone] 06/02/2024 8:45 AM CDT Ancillary Procedure Department of Ophthalmology in [address] [phone] Prakash Graham M.D. [address] [place] [phone] 06/02/2024 9:00 AM CDT Office Visit Department of Ophthalmology in [address] [phone] Prakash Graham M.D. [address] [place] [phone] Scheduled Procedures Name Priority Associated Diagnoses Date/Ti [...] on filedocumented in this encounter Care Teams Junior Art Director Relationship Specialty Start Date End Date Elsewhere, Pcp PCP - General Internal Medicine 05/29/19 documented as of this encounter
--- OUTSIDE RECORDS SUMMARY | 2024-04-12 18:10 | XMS_ITS | Encounter Summary ---
Author Organization [facility] Address [address] [place] [address] Care Team Providers Care Lab Clerk Name Role Phone Elsewhere, Pcp Primary [...] In the past 12 months has th [employer], gas, oil, or water company threatened [...] How often do you attend yazdanism or mormonism serv ices? Never 06/27/2020 Do [...] medical care, and heating? Somewhat hard 06/27/2020 [facility] of Occupat ional [facility] - Occupational Stress Questionnaire Answer Date [...] CDT Comprehensive Visit Preoperative Evaluation Center in [place], [place] [address] [place] [phone] Prakash Graham M.D. [address] [place] [phone] 04/14/2024 1:30 PM CDT Ancillary Procedure Department of Ophthalmology in [place], [place] [address] [place] [phone] Kenya Garza M.D. [address] [place] [phone] 04/14/2024 2:10 PM CDT Ancillary Procedure Department of Ophthalmology in [place], [place] [address] [place] [phone] Prakash Graham M.D. [address] [place] [phone] 04/14/2024 2:30 PM CDT Office Visit Department of Ophthalmology in [address] [phone] Prakash Graham M.D. [address] [place] [phone] 04/16/2024 12:30 PM CDT Ancillary Procedure Department of Ophthalmology in [address] [phone] Prakash Graham M.D. [address] [place] [phone] 04/16/2024 1:00 PM CDT Ancillary Procedure Department of Ophthalmology in [place], [place] [address] [place] [phone] Kenya Garza M.D. [address] [place] [phone] 04/16/2024 2:00 PM CDT Ancillary Procedure Department of Ophthalmology in [place], [place] [address] [place] [phone] Kenya Garza M.D. [address] [place] [phone] 04/16/2024 2:30 PM CDT Office Visit Department of Ophthalmology in [place], [place] [address] [place] [phone] Kenya Garza M.D. [address] [place] [phone] 04/27/2024 10:02 AM CDT Hospital Encounter [facility] OR [facility] [place] [phone] Prakash Graham M.D. [address] [place] [phone] 04/27/2024 10:02 AM CDT - 04/27/2024 11:45 AM CDT Surgery [facility] OR [address] [place] [phone] Prakash Graham M.D. [address] [place] [phone] VITRECTOMY - PARS PLANA 25 GAUGE / MEMBRANE PEEL / SILICONE OIL AND ALL ASSOCIATED PROCEDURES RIGHT EYE 04/28/2024 8:00 AM CDT Office Visit Department of Ophthalmology in [place], [place] [address] [place] [phone] Prakash Graham M.D. [address] [place] [phone] 05/05/2024 1:15 PM CDT Ancillary Procedure Department of Ophthalmology in [place], [place] [address] [place] [phone] Prakash Graham M.D. [address] [place] [phone] 05/05/2024 1:45 PM CDT Office Visit Department of Ophthalmology in [place], [place] [address] [place] [phone] Prakash Graham M.D. [address] [place] [phone] 06/02/2024 8:15 AM CDT Ancillary Procedure Department of Ophthalmology in [place], [place] [address] [place] [phone] Prakash Graham M.D. [address] [place] [phone] 06/02/2024 8:45 AM CDT Ancillary Procedure Department of Ophthalmology in [address] [address] Prakash Graham M.D. [address] [place] [phone] 06/02/2024 9:00 AM CDT Office Visit Department of Ophthalmology in [place], [place] [address] [place] [phone] Prakash Graham M.D. [address] [place] [phone] Scheduled Procedures Name Priority Associated Diagnoses Date/Ti me VITRECTOMY - PARS PLANA GAUGE Panuveitis Right Necrosis Retinal Acute Right 04/27/2024 10:02 AM CDT documented as of this encounter Visit Diagnoses Not on filedocumented in this encounter Care Teams Lab Clerk Relationship Specialty Start Date End Date Elsewhere, Pcp PCP - General Internal Medicine 05/29/19 documented as of this encounter
--- OUTSIDE RECORDS SUMMARY | 2024-04-12 18:10 | XMS_ITS | Encounter Summary ---
Author Organization [facility] Address [address] [place] [address] Care Team Providers Care Machine Stripper Name Role Phone Elsewhere, Pcp Primary Care [...] = 0.6 oz pur e alcohol) [facility] Utilities Answer Date Recorded In the past 12 months has th [employer], gas, oil, or water company threatened [...] How often do you attend zoroastrian or catholic serv ices? Never 06/27/2020 Do [...] medical care, and heating? Somewhat hard 06/27/2020 [facility] of Occupat ional [facility] - Occupational Stress Questionnaire Answer Date [...] your living situation today? [facility] 11/05/2023 Education Answer [...] CDT Comprehensive Visit Preoperative Evaluation Center in [place], [place] [address] [place] [phone] Prakash Graham M.D. [address] [place] [phone] 04/14/2024 1:30 PM CDT Ancillary Procedure Department of Ophthalmology in [place], [place] [address] [place] [phone] Kenya Garza M.D. [address] [place] [phone] 04/14/2024 2:10 PM CDT Ancillary Procedure Department of Ophthalmology in [place], [place] [address] [place] [phone] Prakash Graham M.D. [address] [place] [phone] 04/14/2024 2:30 PM CDT Office Visit Department of Ophthalmology in [address] [phone] Prakash Graham M.D. [address] [place] [phone] 04/16/2024 12:30 PM CDT Ancillary Procedure Department of Ophthalmology in [address] [phone] Prakash Graham M.D. [address] [place] [phone] 04/16/2024 1:00 PM CDT Ancillary Procedure Department of Ophthalmology in [place], [place] [address] [place] [phone] Kenya Garza M.D. [address] [place] [phone] 04/16/2024 2:00 PM CDT Ancillary Procedure Department of Ophthalmology in [place], [place] [address] [place] [phone] Kenya Garza M.D. [address] [place] [phone] 04/16/2024 2:30 PM CDT Office Visit Department of Ophthalmology in [place], [place] [address] [place] [phone] Kenya Garza M.D. [address] [place] [phone] 04/27/2024 10:02 AM CDT Hospital Encounter [facility] OR [facility] [place] [phone] Prakash Graham M.D. [address] [place] [phone] 04/27/2024 10:02 AM CDT - 04/27/2024 11:45 AM CDT Surgery [facility] OR [address] [place] [phone] Prakash Graham M.D. [address] [place] [phone] VITRECTOMY - PARS PLANA 25 GAUGE / MEMBRANE PEEL / SILICONE OIL AND ALL ASSOCIATED PROCEDURES RIGHT EYE 04/28/2024 8:00 AM CDT Office Visit Department of Ophthalmology in [place], [place] [address] [place] [phone] Prakash Graham M.D. [address] [place] [phone] 05/05/2024 1:15 PM CDT Ancillary Procedure Department of Ophthalmology in [place], [place] [address] [place] [phone] Prakash Graham M.D. [address] [place] [phone] 05/05/2024 1:45 PM CDT Office Visit Department of Ophthalmology in [place], [place] [address] [place] [phone] Prakash Graham M.D. [address] [place] [phone] 06/02/2024 8:15 AM CDT Ancillary Procedure Department of Ophthalmology in [place], [place] [address] [place] [phone] Prakash Graham M.D. [address] [place] [phone] 06/02/2024 8:45 AM CDT Ancillary Procedure Department of Ophthalmology in [address] [phone] Prakash Graham M.D. [address] [place] [phone] 06/02/2024 9:00 AM CDT Office Visit Department of Ophthalmology in [place], [place] [address] [place] [phone] Prakash Graham M.D. [address] [place] [phone] Scheduled Procedures Name Priority Associated Diagnoses Date/Ti me VITRECTOMY - PARS PLANA GAUGE Panuveitis Right Necrosis Retinal Acute Right 04/27/2024 10:02 AM CDT documented as of this encounter Procedures Procedure Name Priority Date/Time Associated Diagnosis Comments OPHTHALMOLOGY IMAGE EXAM Routine 02/20/2024 12:00 AM CDT documented in this encounter Results * Video-Eyes US-Eye J-Gjsh-Shrysmppyuvdx Image Exam (02/20/2024 12:00 AM CDT) Narrative [...] on filedocumented in this encounter Care Teams Machine Stripper Relationship Specialty Start Date End Date Elsewhere, Pcp PCP - General Internal Medicine 05/29/19 documented as of this encounter
--- OUTSIDE RECORDS SUMMARY | 2024-04-12 18:10 | XMS_ITS | Encounter Summary ---
Author Organization [facility] Address [address] [place] [address] Care Team Providers Care Manager State Name Role Phone Elsewhere, Pcp Primary Care Provider Unavailabl e Reason for Referral * MRI/CAT/PET Scan (Routine) - Closed Specialty Diagnoses / Procedures Referred By Contac t Referred To Contact Radiology Diagnoses Posterior Reversible Encephalopathy Syndrome Procedures MR Brain without and with IV Contrast Piter Baez M.D. [address] [place] [phone] [facility] Referral ID Status Reason Start Date Expiration Date Visits Re quested Visits Authorized [id number] Closed 02/03/2024 10/27/2024 1 1 Reason for Visit * MRI/CAT/PET Scan (Routine) - Closed Specialty Diagnoses / Procedures Referred By Contac t Referred To Contact Radiology Diagnoses Posterior Reversible Encephalopathy Syndrome Procedures MR Brain without and with IV Contrast Piter Baez M.D. [address] [place] [phone] [facility] Referral ID Status Reason Start Date Expiration Date Visits Re quested Visits Authorized [id number] Closed 02/03/2024 10/27/2024 1 1 Encounter Details Date Type Department Care Team (Latest Contact Info) Description 02/20/2024 3:05 PM CDT - 02/20/2024 11:59 PM CDT Hospital Encounter Department of Radiology, [facility] in [place], [place] [address] [place] [address] Piter Baez M.D. [address] [place] [address] Posterior Reversible Encephalopathy Syndrome Discharge Disposition: Home or Self Care Social History Tobacco Use Types Packs/Day Years Used Date Smoking Tobacco: Light Smoker Cigarettes 0.5 44.1 Started: 02/26/1980 Smokeless Tobacco: Never Comments:On again off again Alcohol Use Standard Drinks/Week Comments Yes 0 (1 standard drink = 0.6 oz pur e alcohol) [facility] Utilities Answer Date Recorded In [...] How often do you attend adventism or orthodox serv ices? Never 06/27/2020 Do [...] medical care, and heating? Somewhat hard 06/27/2020 [facility] Occupat ional Health - Occupational Stress [...] CDT Comprehensive Visit Preoperative Evaluation Center in [place], [place] [address] [place] [phone] Prakash Graham M.D. [address] [place] [phone] 04/14/2024 1:30 PM CDT Ancillary Procedure Department of Ophthalmology in [place], [place] [address] [place] [phone] Kenya Garza M.D. [address] [place] [phone] 04/14/2024 2:10 PM CDT Ancillary Procedure Department of Ophthalmology in [place], [place] [address] [place] [phone] Prakash Graham M.D. [address] [place] [phone] 04/14/2024 2:30 PM CDT Office Visit Department of Ophthalmology in [place], [place] [address] [place] [phone] Prakash Graham M.D. [address] [place] [phone] 04/16/2024 12:30 PM CDT Ancillary Procedure Department of Ophthalmology in [place], [place] [address] [place] [phone] Prakash Graham M.D. [address] [place] [phone] 04/16/2024 1:00 PM CDT Ancillary Procedure Department of Ophthalmology in [place], [place] [address] [place] [phone] Kenya Garza M.D. [address] [place] [phone] 04/16/2024 2:00 PM CDT Ancillary Procedure Department of Ophthalmology in [place], [place] [address] [place] [phone] Kenya Garza M.D. [address] [place] [phone] 04/16/2024 2:30 PM CDT Office Visit Department of Ophthalmology in [place], [place] [address] [place] [phone] Kenya Garza M.D. [address] [place] [phone] 04/27/2024 10:02 AM CDT Hospital Encounter [facility] [place] [address] [place] [phone] Prakash Graham M.D. [address] [place] [phone] 04/27/2024 10:02 AM CDT - 04/27/2024 11:45 AM CDT Surgery [facility] [place] [address] [place] [phone] Prakash Graham M.D. [address] [place] [phone] VITRECTOMY - PARS PLANA 25 GAUGE / MEMBRANE PEEL / SILICONE OIL AND ALL ASSOCIATED PROCEDURES RIGHT EYE 04/28/2024 8:00 AM CDT Office Visit Department of Ophthalmology in [place], [place] [address] [place] [phone] Prakash Graham M.D. [address] [place] [phone] 05/05/2024 1:15 PM CDT Ancillary Procedure Department of Ophthalmology in [place], [place] [address] [place] [phone] Prakash Graham M.D. [address] [place] [phone] 05/05/2024 1:45 PM CDT Office Visit Department of Ophthalmology in [place], [place] [address] [place] [phone] Prakash Graham M.D. [address] [place] [phone] 06/02/2024 8:15 AM CDT Ancillary Procedure Department of Ophthalmology in [place], [place] [address] [place] [phone] Prakash Graham M.D. [address] [place] [address] 06/02/2024 8:45 AM CDT Ancillary Procedure Department of Ophthalmology in [place], [place] [address] [place] [address] Prakash Graham M.D. [address] [place] [phone] 06/02/2024 9:00 AM CDT Office Visit Department of Ophthalmology in [place], [place] [address] [place] [address] Prakash Graham M.D. [address] [place] [phone] Scheduled Procedures Name Priority Associated Diagnoses Date/Ti [...] Modality Head, Brain, Neuroradiology [facility], [facility]adiology [facility], Neuroradiology [facility] N/A Magnetic Resonance Impressions 02/21/2024 8:07 [...] mL documented in this encounter Care Teams Manager State Relationship Specialty Start Date End Date Elsewhere, Pcp PCP - General Internal Medicine 05/29/19 documented as of this encounter
--- OUTSIDE RECORDS SUMMARY | 2024-04-12 18:10 | XMS_ITS | Encounter Summary ---
Author Organization [facility] Address [address] [place] [address] Care Team Providers Care Mechanical Technician Name Role Phone Elsewhere, Pcp Primary [...] Recorded In the past 12 months has [email or web address] electric, gas, oil, or water company threatened [...] How often do you attend alevism or anglican serv ices? Never 06/27/2020 Do [...] Somewhat hard 06/27/2020 [facility] - Occupational Stress Questionnaire Answer Date Recorded [...] CDT Comprehensive Visit Preoperative Evaluation Center in [place], [place] [address] [place] [phone] Prakash Graham M.D. [address] [place] [phone] 04/14/2024 1:30 PM CDT Ancillary Procedure Department of Ophthalmology in [address] [phone] Kenya Garza M.D. [address] [place] [phone] 04/14/2024 2:10 PM CDT Ancillary Procedure Department of Ophthalmology in [address] [phone] Prakash Graham M.D. [address] [place] [phone] 04/14/2024 2:30 PM CDT Office Visit Department of Ophthalmology in [address] [phone] Prakahs Graham M.D. [address] [place] [phone] 04/16/2024 12:30 PM CDT Ancillary Procedure Department of Ophthalmology in [address] [phone] Prakash Graham M.D. [address] [place] [phone] 04/16/2024 1:00 PM CDT Ancillary Procedure Department of Ophthalmology in [place], [place] [address] [place] [phone] Kenya Garza M.D. [address] [place] [phone] 04/16/2024 2:00 PM CDT Ancillary Procedure Department of Ophthalmology in [place], [place] [address] [place] [phone] Kenya Garza M.D. [address] [place] [phone] 04/16/2024 2:30 PM CDT Office Visit Department of Ophthalmology in [place], [place] [address] [place] [phone] Kenya Garza M.D. [address] [place] [phone] 04/27/2024 10:02 AM CDT Hospital Encounter [facility] [place] [phone] Prakash Graham M.D. [address] [place] [phone] 04/27/2024 10:02 AM CDT - 04/27/2024 11:45 AM CDT Surgery [facility] [address] [place] [phone] Prakash Graham M.D. [address] [place] [phone] VITRECTOMY - PARS PLANA 25 GAUGE / MEMBRANE PEEL / SILICONE OIL AND ALL ASSOCIATED PROCEDURES RIGHT EYE 04/28/2024 8:00 AM CDT Office Visit Department of Ophthalmology in [place], [place] [address] [place] [phone] Prakash Graham M.D. [address] [place] [phone] 05/05/2024 1:15 PM CDT Ancillary Procedure Department of Ophthalmology in [place], [place] [address] [place] [phone] Prakash Graham M.D. [address] [place] [phone] 05/05/2024 1:45 PM CDT Office Visit Department of Ophthalmology in [place], [place] [address] [place] [phone] Prakash Graham M.D. [address] [place] [phone] 06/02/2024 8:15 AM CDT Ancillary Procedure Department of Ophthalmology in [place], [place] [address] [place] [phone] Prakash Graham M.D. [address] [place] [phone] 06/02/2024 8:45 AM CDT Ancillary Procedure Department of Ophthalmology in [address] [phone] Prakash Graham M.D. [address] [place] [phone] 06/02/2024 9:00 AM CDT Office Visit Department of Ophthalmology in [address] [phone] Prakash Graham M.D. [address] [place] [phone] Scheduled Procedures Name Priority Associated Diagnoses Date/Ti me VITRECTOMY - PARS PLANA 25 GAUGE Panuveitis Right Necrosis Retinal Acute Right 04/27/2024 10:02 AM CDT documented as of this encounter Procedures Procedure Name Priority Date/Time Associated Diagnosis Comments OPHTHALMOLOGY IMAGE EXAM Routine 02/20/2024 12:05 AM CDT documented in this encounter Results * Eyes US-Eye F-Lkgg-Karczgtcvliwe Image Exam (02/20/2024 12:05 AM CDT) Narrative [...] filedocumented in this encounter Care Teams Mechanical Technician Relationship Specialty Start Date End Date Elsewhere, Pcp PCP - General Internal Medicine 05/29/19 documented as of this encounter
--- OUTSIDE RECORDS SUMMARY | 2024-04-12 18:10 | XMS_ITS | Encounter Summary ---
Author Organization [facility] Address [address] [place] [address] Care Team Providers Care Auto Service Mechanic Name Role Phone Elsewhere, Pcp Primary Care Provider Unavailabl e Reason for Referral * Outpatient (Routine) - Authorized Specialty Diagnoses / Procedures Referred By Apolinar lopez Referred To Contact Ophthalmology Diagnoses Necrosis Retinal Acute Right Kenya Garza M.D. [address] [place] [phone] [facility] Referral ID Status Reason Start Date Expiration Date V isits Requested Visits Authorized [id number] Authorized 03/13/2024 09/12/2025 1 1 Reason for Visit * Outpatient (Routine) - Closed Specialty Diagnoses / Procedures Referred By Apolinar lopez Referred To Contact Ophthalmology Diagnoses Panuveitis Right Necrosis Retinal Acute Right Kenya Garza M.D. [address] [place] [phone] [facility] Referral ID Status Reason Start Date Expiration Date Visits Re quested Visits Authorized [id number] Closed 02/20/2024 08/21/2025 1 1 Encounter Details Date Type Department Care Team (Latest Contact Info) Description 03/13/2024 11:30 AM CDT Office Visit Department of Ophthalmology in [place], [place] [address] [place] [phone] Kenya Garza M.D. [address] [place] [phone] Necrosis Retinal Acute Right (Primary Dx); Panuveitis Right Social History Tobacco Use Types Packs/Day Years Used Date Smoking Tobacco: Light Smoker Cigarettes 0.5 44.1 Started: 02/26/1980 Smokeless Tobacco: Never Comments:On again off again Alcohol Use Standard Drinks/Week Comments Yes 0 (1 standard drink = 0.6 oz pur e alcohol) [facility] Utilities Answer Date Recorded In the [...] How often do you attend rastafari or hindu serv ices? Never 06/27/2020 Do [...] and heating? Somewhat hard 06/27/2020 [facility] [place] [facility] Occupat ional Health - Occupational Stress [...] with tobramycin drops without improvement. She saw nascar racer Dr. Daisy Ivy on 10/23/23. [facility] [...] has not been able to see her bull rider oncologist recently because every time she went to an appointment she was sent to the emergency room due to elevated blood pressure. In August 2023, she was sent from an infusion center to [facility] emergency department where shewas found to have [...] three times in the past three months: [facility] (09/02/23 for hypercalcemiaand acute kidney injury - had CT chest/abdomen/pelvis to assess for malignancy), [facility] again. Each time she saw [...] plans to monitor. (Her oncologist is at [facility].) MEDICATIONS Prednisolone every hour while awake [...] shallow retinal detachment. No T sign noted. [facility] Macula OCT of the right eye [...] membranes. Possible posterior thickening. No T sign. 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 [facility] PLAN: It has been 21 days [...] CDT Comprehensive Visit Preoperative Evaluation Center in [address] [phone] Prakash Graham M.D. [address] [place] [phone] 04/14/2024 1:30 PM CDT Ancillary Procedure Department of Ophthalmology in [place], [place] [address] [place] [phone] Kenya Garza M.D. [address] [place] [phone] 04/14/2024 2:10 PM CDT Ancillary Procedure Department of Ophthalmology in [place], [place] [address] [place] [phone] Prakash Graham M.D. [address] [place] [phone] 04/14/2024 2:30 PM CDT Office Visit Department of Ophthalmology in [address] [phone] Prakash Graham M.D. [address] [place] [phone] 04/16/2024 12:30 PM CDT Ancillary Procedure Department of Ophthalmology in [address] [phone] Prakash Graham M.D. [address] [place] [phone] 04/16/2024 1:00 PM CDT Ancillary Procedure Department of Ophthalmology in [place], [place] [address] [place] [phone] Kenya Garza M.D. [address] [place] [phone] 04/16/2024 2:00 PM CDT Ancillary Procedure Department of Ophthalmology in [place], [place] [address] [place] [phone] Kenya Garza M.D. [address] [place] [phone] 04/16/2024 2:30 PM CDT Office Visit Department of Ophthalmology in [place], [place] [address] [place] [phone] Kenya Garza M.D. [address] [place] [phone] 04/27/2024 10:02 AM CDT Hospital Encounter [facility] [address] [place] [phone] Prakash Graham M.D. [address] [place] [phone] 04/27/2024 10:02 AM CDT - 04/27/2024 11:45 AM CDT Surgery [facility] [address] [place] [phone] Prakash Graham M.D. [address] [place] [phone] VITRECTOMY - PARS PLANA 25 GAUGE / MEMBRANE PEEL / SILICONE OIL AND ALL ASSOCIATED PROCEDURES RIGHT EYE 04/28/2024 8:00 AM CDT Office Visit Department of Ophthalmology in [place], [place] [address] [place] [phone] Prakash Graham M.D. [address] [place] [phone] 05/05/2024 1:15 PM CDT Ancillary Procedure Department of Ophthalmology in [place], [place] [address] [place] [phone] Prakash Graham M.D. [address] [place] [phone] 05/05/2024 1:45 PM CDT Office Visit Department of Ophthalmology in [place], [place] [address] [place] [phone] Prakash Graham M.D. [address] [place] [phone] 06/02/2024 8:15 AM CDT Ancillary Procedure Department of Ophthalmology in [place], [place] [address] [place] [phone] Prakash Graham M.D. [address] [place] [phone] 06/02/2024 8:45 AM CDT Ancillary Procedure Department of Ophthalmology in [place], [place] [address] [place] [phone] Prakash Graham M.D. [address] [place] [phone] 06/02/2024 9:00 AM CDT Office Visit Department of Ophthalmology in [place], [place] [address] [place] [phone] Prakash Graham M.D. [address] [place] [phone] Scheduled Procedures Name Priority Associated Diagnoses Date/Ti [...] Right documented in this encounter Care Teams Auto Service Mechanic Relationship Specialty Start Date End Date Elsewhere, Pcp PCP - General Internal Medicine 05/29/19 documented as of this encounter
--- OUTSIDE RECORDS SUMMARY | 2024-04-12 18:10 | XMS_ITS | Encounter Summary ---
Author Organization [facility] Address [address] [place] [address] Care Team Providers Care Loan And Credit Manager Name Role Phone Elsewhere, Pcp Primary Care Provider Unavailabl e Reason for Visit * Outpatient (Routine) - Closed Specialty Diagnoses / Procedures Referred By Contmuriel t Referred To Contact Neurology Piter Baez M.D. [address] [place] [address] [facility] Referral ID Status Reason Start Date Expiration Date Visits Re quested Visits Authorized [id number] Closed 02/20/2024 08/21/2025 1 1 Encounter Details Date Type Department Care Team (Latest Contact Info) Description 02/25/2024 4:30 PM CDT Telemedicine Department of Neurology in [place], [place] [address] [place] [phone] Piter Baez M.D. [address] [place] [phone] Posterior Reversible Encephalopathy Syndrome (Primary Dx) Social History Tobacco Use Types Packs/Day Years Used Date Smoking Tobacco: Light Smoker Cigarettes 0.5 44.1 Started: 02/26/1980 Smokeless Tobacco: Never Comments:On again off again Alcohol Use Standard Drinks/Week Comments Yes 0 (1 standard drink = 0.6 oz pur e alcohol) [facility] Utilities Answer Date Recorded In the [...] How often do you attend scientology or samaritan serv ices? Never 06/27/2020 Do [...] medical care, and heating? Somewhat hard 06/27/2020 [facility] [place] [facility] Occupat ional Health - Occupational Stress [...] audio/video technology by Piter Baez M.D. in [facility] to the patient at home. RESULTS [...] CDT Comprehensive Visit Preoperative Evaluation Center in [place], [place] [address] [place] [phone] Prakash Graham M.D. [address] [place] [phone] 04/14/2024 1:30 PM CDT Ancillary Procedure Department of Ophthalmology in [address] [phone] Kenya Garza M.D. [address] [place] [phone] 04/14/2024 2:10 PM CDT Ancillary Procedure Department of Ophthalmology in [place], [place] [address] [place] [phone] Prakash Graham M.D. [address] [place] [phone] 04/14/2024 2:30 PM CDT Office Visit Department of Ophthalmology in [place], [place] [address] [place] [phone] Prakash Graham M.D. [address] [place] [phone] 04/16/2024 12:30 PM CDT Ancillary Procedure Department of Ophthalmology in [place], [place] [address] [place] [phone] Praksah Graham M.D. [address] [place] [phone] 04/16/2024 1:00 PM CDT Ancillary Procedure Department of Ophthalmology in [place], [place] [address] [place] [phone] Kenya Garza M.D. [address] [place] [phone] 04/16/2024 2:00 PM CDT Ancillary Procedure Department of Ophthalmology in [place], [place] [address] [place] [phone] Kenya Garza M.D. [address] [place] [phone] 04/16/2024 2:30 PM CDT Office Visit Department of Ophthalmology in [place], [place] [address] [place] [phone] Kenya Garza M.D. [address] [place] [phone] 04/27/2024 10:02 AM CDT Hospital Encounter [facility] [address] [place] [phone] Prakash Graham M.D. [address] [place] [phone] 04/27/2024 10:02 AM CDT - 04/27/2024 11:45 AM CDT Surgery [facility] [address] [place] [phone] Prakash Graham M.D. [address] [place] [phone] VITRECTOMY - PARS PLANA 25 GAUGE / MEMBRANE PEEL / SILICONE OIL AND ALL ASSOCIATED PROCEDURES RIGHT EYE 04/28/2024 8:00 AM CDT Office Visit Department of Ophthalmology in [place], [place] [address] [place] [phone] Prakash Graham M.D. [address] [place] [phone] 05/05/2024 1:15 PM CDT Ancillary Procedure Department of Ophthalmology in [place], [place] [address] [place] [phone] Prakash Graham M.D. [address] [place] [phone] 05/05/2024 1:45 PM CDT Office Visit Department of Ophthalmology in [address] [phone] Prakash Graham M.D. [address] [place] [phone] 06/02/2024 8:15 AM CDT Ancillary Procedure Department of Ophthalmology in [place], [place] [address] [place] [phone] Prakash Graham M.D. [address] [place] [phone] 06/02/2024 8:45 AM CDT Ancillary Procedure Department of Ophthalmology in [place], [place] [address] [place] [phone] Prakash Graham M.D. [address] [place] [address] 06/02/2024 9:00 AM CDT Office Visit Department of Ophthalmology in [place], [place] [address] [place] [address] Prakash Graham M.D. [address] [place] [address] Scheduled Procedures Name Priority Associated Diagnoses Date/Ti me VITRECTOMY - PARS PLANA 25 GAUGE Panuveitis Right Necrosis Retinal Acute Right 04/27/2024 10:02 AM CDT documented as of this encounter Visit Diagnoses Diagnosis Posterior Reversible Encephalopathy Syndrome- Primary Panuveitis Right Necrosis Retinal Acute Right documented in this encounter Care Teams Loan And Credit Manager Relationship Specialty Start Date End Date Elsewhere, Pcp PCP - General Internal Medicine 05/29/19 documented as of this encounter
--- OUTSIDE RECORDS SUMMARY | 2024-04-12 18:10 | XMS_ITS | Encounter Summary ---
Author Organization [facility] Address [address] [place] [address] Care Team Providers Care Healthcare Social Worker Name Role Phone Elsewhere, Pcp Primary Care Provider Unavailabl e Encounter Details Date Type Department Care Team (Latest Contact Info) Description 03/13/2024 12:00 PM CDT Ancillary Procedure Department of Ophthalmology in [place], [place] [address] [place] [address] Kenya Garza M.D. [address] [place] [address] Panuveitis Right; Necrosis Retinal Acute Right Social History Tobacco Use Types Packs/Day Years Used Date Smoking Tobacco: Light Smoker Cigarettes 0.5 44.1 Started: 02/26/1980 Smokeless Tobacco: Never Comments:On again off again Alcohol Use Standard Drinks/Week Comments Yes 0 (1 standard drink = 0.6 oz pur e alcohol) [facility] Utilities Answer Date Recorded In the past 12 months has [employer], gas, oil, or water [employer] threatened to shut off services in your home? No 11/05/2023 Social Connection and Isolation Panel [NHANES] A nswer Date Recorded In a typical week, how many times do you talk on the phone with family, friends, or neighbors? Once a week 06/27/2020 How often do you get together with friends or re latives? Never 06/27/2020 How often do you attend nondenominational or muslim serv ices? Never 06/27/2020 Do [...] 06/27/2020 [facility] - [...] living situation today? I have a [facility] place to live 11/05/2023 Education [...] CDT Comprehensive Visit Preoperative Evaluation Center in [place], [place] [address] [place] [phone] Prakash Graham M.D. [address] [place] [phone] 04/14/2024 1:30 PM CDT Ancillary Procedure Department of Ophthalmology in [place], [place] [address] [place] [phone] Kenya Garza M.D. [address] [place] [phone] 04/14/2024 2:10 PM CDT Ancillary Procedure Department of Ophthalmology in [place], [place] [address] [place] [phone] Prakash Graham M.D. [address] [place] [phone] 04/14/2024 2:30 PM CDT Office Visit Department of Ophthalmology in [place], [place] [address] [place] [phone] Prakash Graham M.D. [address] [place] [phone] 04/16/2024 12:30 PM CDT Ancillary Procedure Department of Ophthalmology in [place], [place] [address] [place] [phone] Prakash Graham M.D. [address] [place] [phone] 04/16/2024 1:00 PM CDT Ancillary Procedure Department of Ophthalmology in [place], [place] [address] [place] [phone] Kenya Garza M.D. [address] [place] [phone] 04/16/2024 2:00 PM CDT Ancillary Procedure Department of Ophthalmology in [place], [place] [address] [place] [phone] Kenya Garza M.D. [address] [place] [phone] 04/16/2024 2:30 PM CDT Office Visit Department of Ophthalmology in [place], [place] [address] [place] [phone] Kenya Garza M.D. [address] [place] [phone] 04/27/2024 10:02 AM CDT Hospital Encounter T [facility] OR [facility] [place] [phone] Prakash Graham M.D. [address] [place] [phone] 04/27/2024 10:02 AM CDT - 04/27/2024 11:45 AM CDT Surgery T [facility] OR [facility] [address] [place] [phone] Prakash Graham M.D. [address] [place] [phone] VITRECTOMY - PARS PLANA 25 GAUGE / MEMBRANE PEEL / SILICONE OIL AND ALL ASSOCIATED PROCEDURES RIGHT EYE 04/28/2024 8:00 AM CDT Office Visit Department of Ophthalmology in [place], [place] [address] [place] [phone] Prakash Graham M.D. [address] [place] [phone] 05/05/2024 1:15 PM CDT Ancillary Procedure Department of Ophthalmology in [place], [place] [address] [place] [phone] Prakash Graham M.D. [address] [place] [phone] 05/05/2024 1:45 PM CDT Office Visit Department of Ophthalmology in [place], [place] [address] [place] [phone] Prakash Graham M.D. [address] [place] [phone] 06/02/2024 8:15 AM CDT Ancillary Procedure Department of Ophthalmology in [place], [place] [address] [place] [phone] Prakash Graham M.D. [address] [place] [phone] 06/02/2024 8:45 AM CDT Ancillary Procedure Department of Ophthalmology in [place], [place] [address] [place] [phone] Prakash Graham M.D. [address] [place] [phone] 06/02/2024 9:00 AM CDT Office Visit Department of Ophthalmology in [place], [place] [address] [place] [address] Prakash Graham M.D. [address] [place] [address] Scheduled Procedures Name Priority Associated Diagnoses Date/Ti [...] Right documented in this encounter Care Teams Healthcare Social Worker Relationship Specialty Start Date End Date Elsewhere, Pcp PCP - General Internal Medicine 05/29/19 documented as of this encounter
--- OUTSIDE RECORDS SUMMARY | 2024-04-12 18:11 | XMS_ITS | Encounter Summary ---
Author Organization [facility] Address [address] [place] [phone] Care Team Providers Care Child Welfare Director Name Role Phone Elsewhere, Pcp Primary Care Provider Unavailabl e Reason for Visit * Reason Onset Date Comments Outside hospitalization and medications 01/10/20 Encounter Details Date Type Department Care Team (Latest Contact Info) Description 01/10/2024 Clinical Communication Department of Ophthalmology in [place], [place] [address] [place] [phone] Kenya Garza M.D. [address] [place] [address] Outside hospitalization and medications Social History Tobacco Use Types Packs/Day Years Used Date Smoking Tobacco: Light Smoker Cigarettes 0.5 44.1 Started: 02/26/1980 Smokeless Tobacco: Never Comments:On again off again Alcohol Use Standard Drinks/Week Comments Yes 0 (1 standard drink = 0.6 oz pur e alcohol) [facility] Utilities Answer Date Recorded In the past 12 months has [employer] gas, oil, or water [employer] threatened to shut off services in your home? No 11/05/2023 Social Connection and Isolation Panel [NHANES] A nswer Date Recorded In a typical week, how many times do you talk on the phone with family, friends, or neighbors? Once a week 06/27/2020 How often do you get together with friends or re latives? Never 06/27/2020 How often do you attend mu-ism or synagogue serv ices? Never 06/27/2020 Do you belong to any clubs o r organizations such as mu-ism groups, unions, fraternal or athletic groups, or [...] medical care, and heating? Somewhat hard 06/27/2020 [facility] - Occupational [...] Comprehensive Visit Preoperative Evaluation Center in [address] [phone] Prakash Graham M.D. [address] [place] [phone] 04/14/2024 1:30 PM CDT Ancillary Procedure Department of Ophthalmology in [place], [place] [address] [place] [phone] Kenya Garza M.D. [address] [place] [phone] 04/14/2024 2:10 PM CDT Ancillary Procedure Department of Ophthalmology in [place], [place] [address] [place] [phone] Prakash Graham M.D. [address] [place] [phone] 04/14/2024 2:30 PM CDT Office Visit Department of Ophthalmology in [address] [phone] Prakash Graham M.D. [address] [place] [phone] 04/16/2024 12:30 PM CDT Ancillary Procedure Department of Ophthalmology in [address] [phone] Prakash Graham M.D. [address] [place] [phone] 04/16/2024 1:00 PM CDT Ancillary Procedure Department of Ophthalmology in [place], [place] [address] [place] [phone] Kenya Garza M.D. [address] [place] [phone] 04/16/2024 2:00 PM CDT Ancillary Procedure Department of Ophthalmology in [place], [place] [address] [place] [phone] Kenya Garza M.D. [address] [place] [phone] 04/16/2024 2:30 PM CDT Office Visit Department of Ophthalmology in [place], [place] [address] [place] [phone] Kenya Garza M.D. [address] [place] [phone] 04/27/2024 10:02 AM CDT Hospital Encounter [facility] OR [facility] [place] [phone] Prakash Graham M.D. [address] [place] [phone] 04/27/2024 10:02 AM CDT - 04/27/2024 11:45 AM CDT Surgery [facility] OR [facility] [place] [phone] Prakash Graham M.D. [address] [place] [phone] VITRECTOMY - PARS PLANA 25 GAUGE / MEMBRANE PEEL / SILICONE OIL AND ALL ASSOCIATED PROCEDURES RIGHT EYE 04/28/2024 8:00 AM CDT Office Visit Department of Ophthalmology in [place], [place] [address] [place] [phone] Prakash Graham M.D. [address] [place] [phone] 05/05/2024 1:15 PM CDT Ancillary Procedure Department of Ophthalmology in [place], [place] [address] [place] [phone] Prakash Graham M.D. [address] [place] [phone] 05/05/2024 1:45 PM CDT Office Visit Department of Ophthalmology in [place], [place] [address] [place] [phone] Prakash Graham M.D. [address] [place] [phone] 06/02/2024 8:15 AM CDT Ancillary Procedure Department of Ophthalmology in [place], [place] [address] [place] [phone] Prakash Graham M.D. [address] [place] [phone] 06/02/2024 8:45 AM CDT Ancillary Procedure Department of Ophthalmology in [place], [place] [address] [place] [phone] Prakash Graham M.D. [address] [place] [phone] 06/02/2024 9:00 AM CDT Office Visit Department of Ophthalmology in [place], [place] [address] [place] [phone] Prakash Graham M.D. [address] [place] [phone] Scheduled Procedures Name Priority Associated Diagnoses Date/Ti me VITRECTOMY - PARS PLANA 25 GAUGE Panuveitis Right Necrosis Retinal Acute Right 04/27/2024 10:02 AM CDT documented as of this encounter Visit Diagnoses Not on filedocumented in this encounter Care Teams Child Welfare Director Relationship Specialty Start Date End Date Elsewhere, Pcp PCP - General Internal Medicine 05/29/19 documented as of this encounter
--- OUTSIDE RECORDS SUMMARY | 2024-04-12 18:11 | XMS_ITS | Encounter Summary ---
Author Organization [facility] Address [address] [place] [address] Care Team Providers Care Wicker Worker Name Role Phone Elsewhere, Pcp Primary Care Provider Unavailabl e Reason for Referral * Outpatient (Routine) - Closed Specialty Diagnoses / Procedures Referred By Contac t Referred To Contact Cardiovascular Disease Diagnoses Coronary Artery Disease (Unspecified) Katerine Bashir M.D. [address] [place] [address] [facility] Referral ID Status Reason Start Date Expiration Date Visits Re quested Visits Authorized [id number] Closed 02/12/2019 02/12/2020 1 1 Encounter Details Date Type Department Care Team (Late st Contact Info) Description 02/12/2019 [facility] [address] [place] [address] Katerine Bashir M.D. [address] [place] [address] Coronary Artery Disease (Unspecified) (Primary [...] CDT Comprehensive Visit Preoperative Evaluation Center in [place], [place] [address] [place] [phone] Prakash Graham M.D. [address] [place] [phone] 04/14/2024 1:30 PM CDT Ancillary Procedure Department of Ophthalmology in [place], [place] [address] [place] [phone] Kenya Garza M.D. [address] [place] [phone] 04/14/2024 2:10 PM CDT Ancillary Procedure Department of Ophthalmology in [place], [place] [address] [place] [phone] Prakash Graham M.D. [address] [place] [phone] 04/14/2024 2:30 PM CDT Office Visit Department of Ophthalmology in [place], [place] [address] [place] [phone] Prakash Graham M.D. [address] [place] [phone] 04/16/2024 12:30 PM CDT Ancillary Procedure Department of Ophthalmology in [place], [place] [address] [place] [phone] Prakash Graham M.D. [address] [place] [phone] 04/16/2024 1:00 PM CDT Ancillary Procedure Department of Ophthalmology in [place], [place] [address] [place] [phone] Kenya Garza M.D. [address] [place] [phone] 04/16/2024 2:00 PM CDT Ancillary Procedure Department of Ophthalmology in [place], [place] [address] [place] [phone] Kenya Garza M.D. [address] [place] [phone] 04/16/2024 2:30 PM CDT Office Visit Department of Ophthalmology in [place], [place] [address] [place] [phone] Kenya Garza M.D. [address] [place] [phone] 04/27/2024 10:02 AM CDT Hospital Encounter [facility] OR [address] [place] [phone] Prakash Graham M.D. [address] [place] [phone] 04/27/2024 10:02 AM CDT - 04/27/2024 11:45 AM CDT Surgery [facility] OR [facility] [place] [phone] Prakash Graham M.D. [address] [place] [phone] VITRECTOMY - PARS PLANA 25 GAUGE / MEMBRANE PEEL / SILICONE OIL AND ALL ASSOCIATED PROCEDURES RIGHT EYE 04/28/2024 8:00 AM CDT Office Visit Department of Ophthalmology in [place], [place] [address] [place] [phone] Prakash Graham M.D. [address] [place] [phone] 05/05/2024 1:15 PM CDT Ancillary Procedure Department of Ophthalmology in [place], [place] [address] [place] [phone] Prakash Graham M.D. [address] [place] [phone] 05/05/2024 1:45 PM CDT Office Visit Department of Ophthalmology in [place], [place] [address] [place] [phone] Prakash Graham M.D. [address] [place] [phone] 06/02/2024 8:15 AM CDT Ancillary Procedure Department of Ophthalmology in [place], [place] [address] [place] [phone] Prakash Graham M.D. [address] [place] [phone] 06/02/2024 8:45 AM CDT Ancillary Procedure Department of Ophthalmology in [place], [place] [address] [place] [phone] Prakash Graham M.D. [address] [place] [phone] 06/02/2024 9:00 AM CDT Office Visit Department of Ophthalmology in [address] [phone] Prakash Graham M.D. [address] [place] [phone] Scheduled Procedures Name Priority Associated Diagnoses Date/Ti [...] documented as of this encounter Care Teams Wicker Worker Relationship Specialty Start Date End Date Elsewhere, Pcp PCP - General Internal Medicine 05/29/19 documented as of this encounter
--- OUTSIDE RECORDS SUMMARY | 2024-04-12 18:11 | XMS_ITS | Encounter Summary ---
Author Organization [facility] Address [address] [place] [address] Care Team Providers Care Biomedical Equipment Specialist Name Role Phone Elsewhere, Pcp Primary Care Provider Unavailabl e Encounter Details Date Type Department Care Team (Latest Contact Info) Description 02/20/2024 9:50 AM CDT Ancillary Procedure Department of Ophthalmology in [place], [place] [address] [place] [address] Kenya Garza M.D. [address] [place] [address] Panuveitis Right; Necrosis Retinal Acute Right Social History Tobacco Use Types Packs/Day Years Used Date Smoking Tobacco: Light Smoker Cigarettes 0.5 44.1 Started: 02/26/1980 Smokeless Tobacco: Never Comments:On again off again Alcohol Use Standard Drinks/Week Comments Yes 0 (1 standard drink = 0.6 oz pur e alcohol) [facility] Utilities Answer Date Recorded In the past 12 months has [employer], gas, oil, or water [employer] threatened to shut off services in your home? No 11/05/2023 Social Connection and Isolation Panel [NHANES] A nswer Date Recorded In a typical week, how many times do you talk on the phone with family, friends, or neighbors? Once a week 06/27/2020 How often do you get together with friends or re latives? Never 06/27/2020 How often do you attend presybeterian or yazdanism serv ices? Never 06/27/2020 Do you belong to any clubs o r organizations such as presybeterian groups, unions, fraternal or athletic groups, or [...] your living situation today? I have a [facility] place to live 11/05/2023 Education Answer [...] CDT Comprehensive Visit Preoperative Evaluation Center in [place], [place] [address] [place] [phone] Prakash Graham M.D. [address] [place] [phone] 04/14/2024 1:30 PM CDT Ancillary Procedure Department of Ophthalmology in [place], [place] [address] [place] [phone] Kenya Garza M.D. [address] [place] [phone] 04/14/2024 2:10 PM CDT Ancillary Procedure Department of Ophthalmology in [place], [place] [address] [place] [phone] Prakash Graham M.D. [address] [place] [phone] 04/14/2024 2:30 PM CDT Office Visit Department of Ophthalmology in [place], [place] [address] [place] [phone] Prakash Graham M.D. [address] [place] [phone] 04/16/2024 12:30 PM CDT Ancillary Procedure Department of Ophthalmology in [place], [place] [address] [place] [phone] Prakash Graham M.D. [address] [place] [phone] 04/16/2024 1:00 PM CDT Ancillary Procedure Department of Ophthalmology in [place], [place] [address] [place] [phone] Kenya Garza M.D. [address] [place] [phone] 04/16/2024 2:00 PM CDT Ancillary Procedure Department of Ophthalmology in [place], [place] [address] [place] [phone] Kenya Garza M.D. [address] [place] [phone] 04/16/2024 2:30 PM CDT Office Visit Department of Ophthalmology in [place], [place] [address] [place] [phone] Kenya Garza M.D. [address] [place] [phone] 04/27/2024 10:02 AM CDT [facility] [facility] [place] [phone] Prakash Graham M.D. [address] [place] [phone] 04/27/2024 10:02 AM CDT - 04/27/2024 11:45 AM CDT Surgery [facility] [facility] [address] [place] [phone] Prakash Graham M.D. [address] [place] [phone] VITRECTOMY - PARS PLANA 25 GAUGE / MEMBRANE PEEL / SILICONE OIL AND ALL ASSOCIATED PROCEDURES RIGHT EYE 04/28/2024 8:00 AM CDT Office Visit Department of Ophthalmology in [place], [place] [address] [place] [phone] Prakash Graham M.D. [address] [place] [phone] 05/05/2024 1:15 PM CDT Ancillary Procedure Department of Ophthalmology in [place], [place] [address] [place] [phone] Prakash Graham M.D. [address] [place] [phone] 05/05/2024 1:45 PM CDT Office Visit Department of Ophthalmology in [place], [place] [address] [place] [phone] Prakash Graham M.D. [address] [place] [phone] 06/02/2024 8:15 AM CDT Ancillary Procedure Department of Ophthalmology in [place], [place] [address] [place] [phone] Prakash Graham M.D. [address] [place] [phone] 06/02/2024 8:45 AM CDT Ancillary Procedure Department of Ophthalmology in [place], [place] [address] [place] [phone] Prakash Graham M.D. [address] [place] [phone] 06/02/2024 9:00 AM CDT Office Visit Department of Ophthalmology in [place], [place] [address] [place] [address] Prakash Graham M.D. [address] [place] [address] Scheduled Procedures Name Priority Associated Diagnoses Date/Ti [...] Right documented in this encounter Care Teams Biomedical Equipment Specialist Relationship Specialty Start Date End Date Elsewhere, Pcp PCP - General Internal Medicine 05/29/19 documented as of this encounter
--- OUTSIDE RECORDS SUMMARY | 2024-04-12 18:11 | XMS_ITS | Encounter Summary ---
Author Organization [facility] Address [address] [place] [address] Care Team Providers Care Interior Paneler Name Role Phone Elsewhere, Pcp Primary Care Provider Unavailabl e Reason for Referral * Outpatient (Routine) - Closed Specialty Diagnoses / Procedures Referred By Contac t Referred To Contact Neurology Piter Baez M.D. [address] [place] [address] [facility] Referral ID Status Reason Start Date Expiration Date Visits Re quested Visits Authorized [id number] Closed 02/20/2024 08/21/2025 1 1 Reason for Visit * Outpatient (Routine) - Closed Specialty Diagnoses / Procedures Referred By Contac t Referred To Contact Neurology Diagnoses Posterior Reversible Encephalopathy Syndrome Katerine Bashir M.D. [address] [place] [address] [facility] Referral ID Status Reason Start Date Expiration Date Visits Re quested Visits Authorized [id number] Closed 01/20/2024 07/21/2025 1 1 Encounter Details Date Type Department Care Team (Latest Contact Info) Description 02/20/2024 1:00 PM CDT Comprehensive Visit Department of Neurology in [place], [place] [address] [place] [phone] Piter Baez M.D. [address] [place] [phone] Posterior Reversible Encephalopathy Syndrome Social History Tobacco Use Types Packs/Day Years Used Date Smoking Tobacco: Light Smoker Cigarettes 0.5 44.1 Started: 02/26/1980 Smokeless Tobacco: Never Comments:On again off again Alcohol Use Standard Drinks/Week Comments Yes 0 (1 standard drink = 0.6 oz pur e alcohol) [facility] Utilities Answer Date Recorded In the [...] Never 06/27/2020 How often do you attend congregational or taoism serv ices? Never 06/27/2020 Do you belong to any clubs o r organizations such as congregational groups, unions, fraternal or athletic groups, or [...] medical care, and heating? Somewhat hard 06/27/2020 [facility] [employer] of Occupat ional Health - Occupational Stress [...] . Referring provider: Katerine Bashir M.D. [address] [place] [address] HISTORY OF PRESENT ILLNESS Pleasant 68-year-old right-handed woman accompanied by her who is referred by her PCP for an initial neurology evaluation regarding recent hospitalization elsewhere for PRES. She gets her ophthalmology care at [facility] by Dr. 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 She gets all of her care for other medical conditions in [place] and I do not have access to [facility] these records. 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 [...] her care here rather than[facility]ing [facility]. We have scheduled an MRI for this [...] CDT Comprehensive Visit Preoperative Evaluation Center in [place], [place] [address] [place] [address] Prakash Graham M.D. [address] [place] [address] 04/14/2024 1:30 PM CDT Ancillary Procedure Department of Ophthalmology in [place], [place] [address] [place] [phone] Kenya Garza M.D. [address] [place] [phone] 04/14/2024 2:10 PM CDT Ancillary Procedure Department of Ophthalmology in [place], [place] [address] [place] [phone] Prakash Graham M.D. [address] [place] [phone] 04/14/2024 2:30 PM CDT Office Visit Department of Ophthalmology in [place], [place] [address] [place] [phone] Prakash Graham M.D. [address] [place] [phone] 04/16/2024 12:30 PM CDT Ancillary Procedure Department of Ophthalmology in [place], [place] [address] [place] [phone] Prakash Graham M.D. [address] [place] [phone] 04/16/2024 1:00 PM CDT Ancillary Procedure Department of Ophthalmology in [place], [place] [address] [place] [phone] Kenya Garza M.D. [address] [place] [phone] 04/16/2024 2:00 PM CDT Ancillary Procedure Department of Ophthalmology in [place], [place] [address] [place] [phone] Kenya Garza M.D. [address] [place] [phone] 04/16/2024 2:30 PM CDT Office Visit Department of Ophthalmology in [place], [place] [address] [place] [phone] Kenya Garza M.D. [address] [place] [phone] 04/27/2024 10:02 AM CDT Hospital Encounter [facility] OR [facility] [place] [phone] Prakash Graham M.D. [address] [place] [phone] 04/27/2024 10:02 AM CDT - 04/27/2024 11:45 AM CDT Surgery [facility] OR [facility] [address] [place] [phone] Prakash Graham M.D. [address] [place] [phone] VITRECTOMY - PARS PLANA 25 GAUGE / MEMBRANE PEEL / SILICONE OIL AND ALL ASSOCIATED PROCEDURES RIGHT EYE 04/28/2024 8:00 AM CDT Office Visit Department of Ophthalmology in [place], [place] [address] [place] [phone] Prakash Graham M.D. [address] [place] [phone] 05/05/2024 1:15 PM CDT Ancillary Procedure Department of Ophthalmology in [place], [place] [address] [place] [phone] Prakash Graham M.D. [address] [place] [phone] 05/05/2024 1:45 PM CDT Office Visit Department of Ophthalmology in [place], [place] [address] [place] [phone] Prakash Graham M.D. [address] [place] [phone] 06/02/2024 8:15 AM CDT Ancillary Procedure Department of Ophthalmology in [place], [place] [address] [place] [phone] Prakash Graham M.D. [address] [place] [phone] 06/02/2024 8:45 AM CDT Ancillary Procedure Department of Ophthalmology in [place], [place] [address] [place] [phone] Prakash Graham M.D. [address] [place] [phone] 06/02/2024 9:00 AM CDT Office Visit Department of Ophthalmology in [place], [place] [address] [place] [phone] Prakash Graham M.D. [address] [place] [phone] Scheduled Procedures Name Priority Associated Diagnoses Date/Ti ms VITRECTOMY - PARS PLANA 25 GAUGE Panuveitis Right Necrosis Retinal Acute Right 04/27/2024 10:02 AM CDT Scheduled Referrals Name Type Priority Associated Diagnoses Orde r Schedule Neurology office visit (clinic) Outpatient Referral Routine Expected: 02/25/2024, Expires: 05/21/2025 documented as of this encounter Visit Diagnoses Diagnosis Posterior Reversible Encephalopathy Syndrome Panuveitis Right Necrosis Retinal Acute Right documented in this encounter Care Teams Interior Paneler Relationship Specialty Start Date End Date Elsewhere, Pcp PCP - General Internal Medicine 05/29/19 documented as of this encounter
--- OUTSIDE RECORDS SUMMARY | 2024-04-12 18:11 | XMS_ITS | Encounter Summary ---
Author Organization [facility] Address [address] [place] [address] Care Team Providers Care Petal Cutter Name Role Phone Elsewhere, Pcp Primary Care Provider Unavailabl e Reason for Referral * Outpatient (Routine) - Closed Specialty Diagnoses / Procedures Referred By Apolinar lopez Referred To Contact Ophthalmology Diagnoses Panuveitis Right Necrosis Retinal Acute Right Kenya Garza M.D. [address] [place] [address] [facility] Referral ID Status Reason Start Date Expiration Date Visits Re quested Visits Authorized [id number] Closed 02/20/2024 08/21/2025 1 1 Reason for Visit * Outpatient (Routine) - Closed Specialty Diagnoses / Procedures Referred By Apolinar lopez Referred To Contact Ophthalmology Diagnoses Panuveitis Right Necrosis Retinal Acute Right Kenya Garza M.D. [address] [place] [address] [facility] Referral ID Status Reason Start Date Expiration Date Visits Re quested Visits Authorized [id number] Closed 01/23/2024 07/24/2025 1 1 Encounter Details Date Type Department Care Team (Latest Contact Info) Description 02/20/2024 11:15 AM CDT Office Visit Department of Ophthalmology in [place], [place] [address] [place] [phone] Kenya Garza M.D. [address] [place] [phone] Panuveitis Right (Primary Dx); Necrosis Retinal Acute Right Social History Tobacco Use Types Packs/Day Years Used Date Smoking Tobacco: Light Smoker Cigarettes 0.5 44.1 Started: 02/26/1980 Smokeless Tobacco: Never Comments:On again off again Alcohol Use Standard Drinks/Week Comments Yes 0 (1 standard drink = 0.6 oz pur e alcohol) [facility] Utilities Answer Date Recorded In the past 12 months has e electric, gas, oil, or water [employer] threatened to shut off services in your home? No 11/05/2023 Social Connection and Isolation Panel [NHANES] A nswer Date Recorded In a typical week, how many times do you talk on the phone with family, friends, or neighbors? Once a week 06/27/2020 How often do you get together with friends or re latives? Never 06/27/2020 How often do you attend rastafarian or baptism serv ices? Never 06/27/2020 Do [...] medical care, and heating? Somewhat hard 06/27/2020 [facility] of Occupat ional Health - Occupational Stress [...] your living situation today? I have a [facility] place to live 11/05/2023 Education Answer [...] with tobramycin drops without improvement. She saw flour broker Dr. Daisy Ivy on 10/23/23. 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 In August 2023, she was sent from an infusion center to [facility] emergency department where shewas found to have oxygen saturations of 78%. CT imaging showed worsening bilateral ground glass opacities. A CT scan was negative for pulmonary embolism. She was transferred to [facility] for additional pulmonology care. On [...] three times in the past three months: [facility] (09/02/23 for hypercalcemiaand acute kidney injury - had CT chest/abdomen/pelvis to assess for malignancy), [facility] again. Each time she saw [...] sign noted. [facility] Macula OCT of the right eye shows [...] T sign. 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 [facility] PLAN: It has been 21 days since [...] CDT Comprehensive Visit Preoperative Evaluation Center in [place], [place] [address] [place] [phone] Prakash Graham M.D. [address] [place] [phone] 04/14/2024 1:30 PM CDT Ancillary Procedure Department of Ophthalmology in [place], [place] [address] [place] [phone] Kenya Garza M.D. [address] [place] [phone] 04/14/2024 2:10 PM CDT Ancillary Procedure Department of Ophthalmology in [place], [place] [address] [place] [phone] Prakash Graham M.D. [address] [place] [phone] 04/14/2024 2:30 PM CDT Office Visit Department of Ophthalmology in [address] [phone] Prakash Graham M.D. [address] [place] [phone] 04/16/2024 12:30 PM CDT Ancillary Procedure Department of Ophthalmology in [place], [place] [address] [place] [phone] Prakash Graham M.D. [address] [place] [phone] 04/16/2024 1:00 PM CDT Ancillary Procedure Department of Ophthalmology in [place], [place] [address] [place] [phone] Kenya Garza M.D. [address] [place] [phone] 04/16/2024 2:00 PM CDT Ancillary Procedure Department of Ophthalmology in [place], [place] [address] [place] [phone] Kenya Garza M.D. [address] [place] [phone] 04/16/2024 2:30 PM CDT Office Visit Department of Ophthalmology in [place], [place] [address] [place] [phone] Kenya Garza M.D. [address] [place] [phone] 04/27/2024 10:02 AM CDT Hospital Encounter [facility] OR [facility] [place] [phone] Prakash Graham M.D. [address] [place] [phone] 04/27/2024 10:02 AM CDT - 04/27/2024 11:[address] [facility] OR [address] [place] [phone] Prakash Graham M.D. [address] [place] [phone] VITRECTOMY - PARS PLANA 25 GAUGE / MEMBRANE PEEL / SILICONE OIL AND ALL ASSOCIATED PROCEDURES RIGHT EYE 04/28/2024 8:00 AM CDT Office Visit Department of Ophthalmology in [place], [place] [address] [place] [phone] Prakash Graham M.D. [address] [place] [phone] 05/05/2024 1:15 PM CDT Ancillary Procedure Department of Ophthalmology in [place], [place] [address] [place] [phone] Prakash Graham M.D. [address] [place] [phone] 05/05/2024 1:45 PM CDT Office Visit Department of Ophthalmology in [place], [place] [address] [place] [phone] Prakash Graham M.D. [address] [place] [phone] 06/02/2024 8:15 AM CDT Ancillary Procedure Department of Ophthalmology in [place], [place] [address] [place] [phone] Prakash Graham M.D. [address] [place] [phone] 06/02/2024 8:45 AM CDT Ancillary Procedure Department of Ophthalmology in [place], [place] [address] [place] [phone] Prakash Graham M.D. [address] [place] [phone] 06/02/2024 9:00 AM CDT Office Visit Department of Ophthalmology in [address] [phone] Prakash Graham M.D. [address] [place] [phone] Scheduled Procedures Name Priority Associated Diagnoses Date/Ti [...] possible ciliochoroidal effusion. BriannaK Kenya Garza M.D. [facility] Performing Organization Address [facility] Co de Phone Number OPHTHALMOLGY NON-IMAGING [...] possible ciliochoroidal effusion. ZK Kenya Garza M.D. 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
--- OUTSIDE RECORDS SUMMARY | 2024-04-12 18:11 | XMS_ITS | Encounter Summary ---
Author Organization [facility] Address [address] [place] [address] Care Team Providers Care Door Worker Name Role Phone Elsewhere, Pcp Primary Care Provider Unavailabl e Reason for Referral * MRI/CAT/PET Scan (Routine) - Closed Specialty Diagnoses / Procedures Referred By Apolinar lopez Referred To Contact Radiology Diagnoses Posterior Reversible Encephalopathy Syndrome Procedures MR Brain without and with IV Contrast Piter Baez M.D. [address] [place] [address] [facility] Referral ID Status Reason Start Date Expiration Date Visits Re quested Visits Authorized [id number] Closed 02/03/2024 10/27/2024 1 1 Reason for Visit * Reason Onset Date Comments Pre-visit Testing Orders 01/31/2024 Encounter Details Date Type Department Care Team (Latest Contact Info) Description 01/31/2024 Clinical Communication Department of Neurology in [place], [place] [address] [place] [phone] Piter Baez M.D. [address] [place] [phone] Pre-visit Testing Orders Social History Tobacco Use Types Packs/Day Years Used Date Smoking Tobacco: Light Smoker Cigarettes 0.5 44.1 Started: 02/26/1980 Smokeless Tobacco: Never Comments:On again off again Alcohol Use Standard Drinks/Week Comments Yes 0 (1 standard drink = 0.6 oz pur e alcohol) [facility] Utilities Answer Date Recorded In the past 12 months has th e electric, gas, oil, or water [employer] threatened to shut off services in your home? No 11/05/2023 Social Connection and Isolation Panel [NHANES] A nswer Date Recorded In a typical week, how many times do you talk on the phone with family, friends, or neighbors? Once a week 06/27/2020 How often do you get together with friends or re latives? Never 06/27/2020 How often do you attend zoroastrianism or tenriism serv ices? Never 06/27/2020 Do you belong [...] 06/27/2020 [facility] Occupat ional [facility] - Occupational Stress Questionnaire Answer Date [...] your living situation today? I have a [facility] place to live 11/05/2023 Education Answer [...] CDT Comprehensive Visit Preoperative Evaluation Center in [place], [place] [address] [place] [phone] Prakash Graham M.D. [address] [place] [phone] 04/14/2024 1:30 PM CDT Ancillary Procedure Department of Ophthalmology in [place], [place] [address] [place] [phone] Kenya Garza M.D. [address] [place] [phone] 04/14/2024 2:10 PM CDT Ancillary Procedure Department of Ophthalmology in [place], [place] [address] [place] [phone] Prakash Graham M.D. [address] [place] [phone] 04/14/2024 2:30 PM CDT Office Visit Department of Ophthalmology in [place], [place] [address] [place] [phone] Prakash Graham M.D. [address] [place] [phone] 04/16/2024 12:30 PM CDT Ancillary Procedure Department of Ophthalmology in [place], [place] [address] [place] [phone] Prakash Graham M.D. [address] [place] [phone] 04/16/2024 1:00 PM CDT Ancillary Procedure Department of Ophthalmology in [place], [place] [address] [place] [phone] Kenya Garza M.D. [address] [place] [phone] 04/16/2024 2:00 PM CDT Ancillary Procedure Department of Ophthalmology in [place], [place] [address] [place] [phone] Kenya Garza M.D. [address] [place] [phone] 04/16/2024 2:30 PM CDT Office Visit Department of Ophthalmology in [place], [place] [address] [place] [phone] Kenya Garza M.D. [address] [place] [phone] 04/27/2024 10:02 AM CDT Hospital Encounter [facility] OR [address] [place] [phone] Prakash Graham M.D. [address] [place] [phone] 04/27/2024 10:02 AM CDT - 04/27/2024 11:45 AM CDT Surgery [facility] OR [address] [place] [phone] Prakash Graham M.D. [address] [place] [phone] VITRECTOMY - PARS PLANA 25 GAUGE / MEMBRANE PEEL / SILICONE OIL AND ALL ASSOCIATED PROCEDURES RIGHT EYE 04/28/2024 8:00 AM CDT Office Visit Department of Ophthalmology in [place], [place] [address] [place] [phone] Prakash Graham M.D. [address] [place] [phone] 05/05/2024 1:15 PM CDT Ancillary Procedure Department of Ophthalmology in [place], [place] [address] [place] [phone] Prakash Graham M.D. [address] [place] [phone] 05/05/2024 1:45 PM CDT Office Visit Department of Ophthalmology in [place], [place] [address] [place] [phone] Prakash Graham M.D. [address] [place] [phone] 06/02/2024 8:15 AM CDT Ancillary Procedure Department of Ophthalmology in [place], [place] [address] [place] [phone] Prakash Graham M.D. [address] [place] [phone] 06/02/2024 8:45 AM CDT Ancillary Procedure Department of Ophthalmology in [place], [place] [address] [place] [phone] Prakash Graham M.D. [address] [place] [phone] 06/02/2024 9:00 AM CDT Office Visit Department of Ophthalmology in [place], [place] [address] [place] [phone] Prakash Graham M.D. [address] [place] [phone] Scheduled Procedures Name Priority Associated Diagnoses Date/Ti me VITRECTOMY - PARS PLANA 25 GAUGE Panuveitis Right Necrosis Retinal Acute Right 04/27/2024 10:02 AM CDT documented as of this encounter Results * MR Brain without and with IV Contrast (02/20/2024 4:08 PM CDT) Anatomical Region Laterality Modality Head, Brain, Neuroradiology RST [facility], Neuroradiology [facility], Neuroradiology [facility] N/A Magnetic [...] Right documented in this encounter Care Teams Door Worker Relationship Specialty Start Date End Date Elsewhere, Pcp PCP - General Internal Medicine 05/29/19 documented as of this encounter
--- OUTSIDE RECORDS SUMMARY | 2024-04-12 18:11 | XMS_ITS | Clinical Summary ---
Author Organization [employer] [facility] Address [place], [place] [address] Care Team Providers Care Banquet Kitchen Supervisor Name Role Phone Easton Mccormick MD Unavailable [phone] Katerine Bashir MD Primary Care Provider + Allergies Active Allergy Reactions Criticality Noted Date Comments Wheeler Yefri Itching 09/11/2023 Medications Medication Sig Dispensed Refills Start Date End Date Status aspirin (ECOTRIN) 81 mg enteric coated tabletIndications:Non -ST elevation LA (NSTEMI) (HC) Take 1 tablet by mouth once daily with a meal. 0 11/30/2015 Active atorvastatin (LIPITOR) 40 mg tabletIndications:Cor onary artery disease, angina presence unspecified, unspecified vessel or lesion type, unspecified whether venetie ira or transplanted heart Take 1 tablet by [...] Date Diagnosed Date Acute respiratory failure 01/14/2024 Edna coma scale total score 3-8 01/14/2024 Coma [...] ACP (advance care planning) 09/11/2023 Non-ST elevation LA (NSTEMI) 11/19/2015 Melanoma in situ 06/15/2014 Overview: Right lower anterior leg and upper right eyelid. 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 Morbid obesity 04/10/2010 Diabetes mellitus, type 2 HTN (hypertension) CAD (coronary artery disease) Hyperlipidemia LDL goal <70 Encounters Date Type Department Care Team Description 01/23/2024 Telephone [facility] [address] [place] [address] Audrey Givens NP Appointment (Imaging and follow up with INDUSTRIAL MAINTENANCE TECH ) 01/22/2024 Orders Only [facility] [address] [place] [address] Nicolle Flores MD <No scans attached> 01/08/2024 9:21 PM CDT - 01/14/2024 3:51 PM CDT Hospital Encounter [facility] [address] [place], [place] [phone] s, Hospitalist c Poppy, MD Rosa Hennessy Anca Ioana, MD 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); HTN (hypertension) Discharge Disposition: Home Self Care from Last 3 Months Immunizations Name Administration [...] VIEW PORTABLE STAT 01/11/2024 12:00 AM CDT XR MAMMO BILAT SCREEN FFDM (IA) Routine 10/04/2016 9:00 AM SCRAP MATERIALS BUYER Visit for screening mammogram LIPID PANEL W REFLEX MEASURED LDL Routine 09/11/2016 9:26 AM SCR[employer] MAT[employer] BUYER Hyperlipidemia, unspecified XR DXA BONE DENSITY 2 SITES AXIAL Routine 08/18/2015 9:25 AM CDT Screening for osteoporosis from Last 3 Months or Most Recently Relevant to Health Maintenance Results * (ABNORMAL) GLUCOSE METER (01/14/2024 12:46 PM CDT) Only the most recent of15 resultswithin the time period is included. [facility] GLUCOSE METER 221(H) 65 - 100 mg/dL 01/14/2024 12:49 PM CDT [facility] Blood BLOOD SPECIMEN / Unknown 01/14/2024 12:46 PM CDT 01/14/2024 12:49 PM CDT Ines Lee MD CHEMISTRY [facility] SENDOUT INTERNAL ZIP [phone] [place] [phone] * SCAN-CARDIAC STRIP (01/14/2024 10:04 AM CDT) Scanner OTHER * PLATELET COUNT (01/14/2024 5:15 AM CDT) [facility] PLATELET COUNT 189 140 - 440 thou/cu mm 01/14/2024 6:02 AM CDT [facility] MPV 10.6 6.5 - 11.0 fL 01/14/2024 6:02 AM CDT [facility] Blood BLOOD SPECIMEN / Unknown Venipuncture / Unknown 01/14/2024 5:15 AM CDT 01/14/2024 5:46 AM CDT Santi Elmore MD HEMATOLOGY [facility] SENDOUT [place] [address] [address] [address] [place] [address] * POTASSIUM (01/14/2024 5:15 AM CDT) Only the most recent of4 resultswithin the time period is included. POTASSIUM 3.9 3.5 - 5.1 mmol/L 01/14/2024 6:15 AM CDT [facility] Blood BLOOD SPECIMEN / Unknown Venipuncture / Unknown 01/14/2024 5:15 AM CDT 01/14/2024 5:46 AM CDT Ines Lee MD CHEMISTRY Performing Organization Address City/[facility]/ZIP Co de Phone Number [facility] SENDOUT [place]NAL [address]IP [phone] [place] [address] * MAGNESIUM (01/14/2024 5:15 AM CDT) Only the most recent of3 resultswithin the time period is included. MAGNESIUM 2.1 1.6 - 2.4 mg/dL 01/14/2024 6:15 AM CDT [facility] Blood BLOOD SPECIMEN / Unknown Venipuncture / Unknown 01/14/2024 5:15 AM CDT 01/14/2024 5:46 AM CDT Ines Lee MD CHEMISTRY Performing Organization Address City/[facility]/ZIP Co de Phone Number [facility] SENDOUT [place]NAL ZIP [phone] [place] [address] * SCAN-CARDIAC STRIP (01/14/2024 2:38 AM CDT) [...] of2 resultswithin the time period is included. Interpretation Sinus rhythm with short NM with [...] NOW QTc 405 ms BEYOND NOW P [place] -21 degrees BEYOND NOW R [place] 3 degrees BEYOND NOW T [place] 75 degrees BEYOND NOW 01/13/2024 10:2 5 AM CDT 01/14/2024 2:27 PM CDT Latoya Schmitt INDUSTRIAL MAINTENANCE TECH EKG ORD BEYOND NOW [place], [place] * EXTRA TUBE LAVENDER (01/13/2024 5:00 AM CDT) Blood BLOOD SPECIMEN / Unknown Extra Tube / Unknown 01/13/2024 5:00 AM CDT 01/13/2024 5:24 AM CDT Doctor Unknown LABORATORY [facility] SENDOUT INTERNAL [facility] [id number] [place] [address] * (ABNORMAL) BASIC METABOLIC PANEL (01/13/2024 5:00 AM CDT) Only the most recent of3 resultswithin the time period is included. SODIUM 135(L) 136 - 145 mmol/L 01/13/2024 5:52 AM CDT [facility] POTASSIUM 01/13/2024 5:52 AM CDT [facility] Comment:Canceled- Specimen H emolyzed, Disposition Per Policy CHLORIDE 92(L) 98 - 107 mmol/L 01/13/2024 5:52 AM CDT [facility] CO2,TOTAL 27 22 - 29 mmol/L 01/13/2024 5:52 AM T [facility] ANION GAP 16 5 - 18 01/13/2024 5:52 AM T [facility] GLUCOSE 151(H) 70 - 99 mg/dL 01/13/2024 5:52 AM T [facility] CALCIUM 10.4(H) 8.8 - 10.2 mg/dL 01/13/2024 5:52 AM T [facility] BUN 38(H) 8 - 23 mg/dL 01/13/2024 5:52 AM T [facility] CREATININE 0.91(H) 0.50 - 0.90 mg/dL 01/13/2024 5:52 AM T [facility] BUN/CREAT RATIO 42(H) 10 - 20 5:52 AM T [facility] eGFR 70(L) >90 mL/min/1.7 3m2 01/13/2024 5:52 AM [facility] Comment:As of 2022, eG FR is calculated by the CKD-EPI creatinine equation without race adjustment. ??eGFR can be influenced by muscle mass, exercise, and diet. ??The reported eGFR is an estimation only and is only applicable if the renal function is stable. Blood BLOOD SPECIMEN / Unknown Venipuncture / Unknown 01/13/2024 5:00 AM CDT 01/13/2024 5:19 AM CDT Ines Lee MD CHEMISTRY Performing Organization Address City/State/[facility] Co de Phone Number [facility] SENDOUT INTERNAL [facility] [phone] [place] [address] * SCAN-CARDIAC STRIP (01/13/2024 12:22 AM CDT) Scanner OTHER * SCAN-CARDIAC STRIP (01/12/2024 8:17 PM CDT) Scanner OTHER * SCAN-CARDIAC STRIP (01/12/2024 3:18 PM CDT) Scanner OTHER * ECHO TTE COMPLETE W CONTRAST (01/12/2024 10:18 AM CDT) EJECTION FRACTION 50-55% PROSOLV Anatomical Region Laterality Modality Ultrasound 01/12/2024 8:26 AM CDT Narrative 01/12/2024 12:01 PM CDT [facility] [place] [address] Main: [email or web address] ? Transthoracic Echo Report BREEZY TREJO Joseluisyohan ID: [id number] Age: 68 : 1955 Ordering Provider: ROSIE JUNE Exam Date: 01/12/2024 08:26 Gender: F Batch Dumper: ANDREWS Height: 66 in BSA: 1.87 m?? BP: 106 / 47 Weight: 171 lbs BMI: 27.6 kg/m?? HR: 68 Location: Inpatient (Portable) Rhythm: Sinus Arrhythmia Procedure Components: 2D imaging with contrast, Color Doppler, Spectral Doppler Indications: Congestive Heart Failure Technical Quality: Fair Contrast: Definity Constrast Dose (ml): .15 [facility]#: [id number] Final Conclusion 1. Normal left ventricular chamber [...] VALVE PV Peak Velocity ?0.758 m/sec Ginger RICH Accredited Site (Electronically Signed) Final Date: 12 January 2024 12:01 ICD-10 Codes: 428 Procedure Note Ginger Loredo MD - 01/12/2024 [facility] [place] [address] Main: [email or web address] Transthoracic Echo Report BREEZY TREJO ID: [id number] Age: 68 : 1955 Ordering Provider:ROSIE JUNE Exam Date: 01/12/2024 08:26 Gender: F Batch Dumper: ANDREWS Height: 66 in BSA: 1.87 m?? BP: 106 / 47 Weight: 171 lbs BMI: 27.6 kg/m?? HR: 68 Location: Inpatient (Portable) Rhythm: Sinus Arrhythmia Procedure Components: 2D imaging with contrast, Color Doppler, SpectralDoppler Indications: Congestive Heart Failure Technical Quality: Fair Contrast: Definity Constrast Dose (ml): .15 [facility]#: [id number] Final Conclusion 1. Normal left ventricular chamber [...] Peak Velocity 0.758 m/sec Ginger Loredo MD [facility] Accredited Site (Electronically Signed) Final Date: 12 January 2024 12:01 ICD-10 Codes: 428 Rosie June INDUSTRIAL MAINTENANCE TECH ECHO ORD * SCAN-CARDIAC STRIP (01/12/2024 10:17 AM CDT) Scanner OTHER * XR CHEST 1 VIEW PORTABLE (01/12/2024 7:53 AM CDT) Only the most recent of2 resultswithin the time period is included. Anatomical [...] EXAM: XR CHEST 1 VIEW PORTABLE LOCATION: [facility] MEDICAL IMAGING DATE: 01/12/2024 INDICATION: Shortness [...] EXAM: XR CHEST 1 VIEW PORTABLE LOCATION: [facility] MEDICAL IMAGING DATE: 01/12/2024 INDICATION: Shortness [...] 2,530(H) <125 pg/mL 01/11/2024 3:11 PM CDT [facility] Blood BLOOD SPECIMEN / Unknown Line/Port / Unknown 01/11/2024 1:07 PM CDT 01/11/2024 1:10 PM CDT Narrative [facility] - 01/11/2024 3:11 PM CDT The [...] 72% for acute congestive heart failure. ? Ines Lee MD SEND OUTS [facility] SENDOUT INTERNAL [facility] [address] [place] [address] * SCAN-CARDIAC STRIP (01/11/2024 7:56 AM CDT) Scanner OTHER * (ABNORMAL) CBC WITH AUTO DIFFERENTIAL (01/11/2024 4:59 AM CDT) WHITE BLOOD COUNT 7.5 4.5 - 11.0 thou/cu mm 01/11/2024 5:19 AM [facility] RED BLOOD COUNT 3.98(L) 4.00 - 5.20 mil/cu mm 01/11/2024 5:19 AM [facility] HEMOGLOBIN 12.5 12.0 - 16.0 g/dL 01/11/2024 5:19 AM [facility] HEMATOCRIT 37.4 33.0 - 51.0 % 01/11/2024 5:19 AM [facility] MCV 94 80 - 100 fL 01/11/2024 5:19 AM [facility] MCH 31.4 26.0 - 34.0 pg 01/11/2024 5:19 AM [facility] MCHC 33.4 32.0 - 36.0 g/dL 01/11/2024 5:19 AM [facility] RDW 19.3(H) 11.5 - 15.5 % 01/11/2024 5:19 AM [facility] PLATELET COUNT 130(L) 140 - 440 thou/cu mm 01/11/2024 5:19 AM [facility] MPV 10.8 6.5 - 11.0 fL 01/11/2024 5:19 AM [facility] NRBC 0.3 % 01/11/2024 5:19 AM [facility] ABS NRBC 0.0 thou /cu mm 01/11/2024 5:19 AM CDT [facility] % NEUT 37.8 % 01/11/2024 5:19 AM CDT [facility] % LYMPH 47.7 % 01/11/2024 5:19 AM CDT [facility] % MONO 10.5 % 01/11/2024 5:19 AM CDT [facility] % EOS 1.1 % 01/11/2024 5:19 AM CDT [facility] % BASO 0.8 % 01/11/2024 5:19 AM CDT [facility] % IMMATURE GRAN (METAS,MYELOS,NM OS) 2.1 % 01/11/2024 5:19 AM CDT [facility] ABSOLUTE NEUTROPHILS 2.8 1.7 - 7.0 thou/cu mm 01/11/2024 5:19 AM CDT [facility] ABSOLUTE LYMPHOCYTES 3.6(H) 0.9 - 2.9 thou/cu mm 01/11/2024 5:19 AM CDT [facility] ABSOLUTE MONOCYTES 0.8 <0.9 thou/cu mm 01/11/2024 5:19 AM CDT [facility] ABSOLUTE EOSINOPHILS 0.1 <0.5 thou/cu mm 01/11/2024 5:19 AM CDT [facility] ABSOLUTE BASOPHILS 0.1 <0.3 thou/cu mm 01/11/2024 5:19 AM CDT [facility] ABSOLUTE IMMATURE GRANULOCYTES(MET ,MYELOS,PROS) 0.2 <0.3 thou/cu mm 01/11/2024 5:19 AM CDT [facility] Blood BLOOD SPECIMEN / Unknown Venipuncture / Unknown 01/11/2024 4:59 AM CDT 01/11/2024 5:08 AM CDT Tea Garcia MD HEMATOLOGY [facility] SENDOUT INTERNAL ZIP [phone] [place] [address] * SCAN-CARDIAC STRIP (01/11/2024 12:48 AM CDT) Scanner OTHER * XR MAMMO BILAT SCREEN FFDM (10/04/2016 9:00 AM SCRAP MATERIALS BUYER) Anatomical Region Laterality Modality BREASTS, Breast Left, Breast Right Bilateral Mammography Narrative 10/04/2016 1:52 PM S[employer] BUYER BILATERAL DIGITAL SCREENING MAMMOGRAM WITH COMPUTER-AIDED DETECTION [...] for Comparison Bernardino Avelar D.O. Diagnostic Radiologist [employer] [facility] [email or web address] ?? / Bailey Collins INDUSTRIAL MAINTENANCE TECH MAMMO * (ABNORMAL) LIPID PANEL W REFLEX MEASURED LDL (09/11/2016 9:26 AM SCR[employer] MAT[employer] BUYER) CHOLESTEROL,TOTAL 159 100 - 199 mg/dL 09/11/2016 10:03 AM [facility] TRIGLYCERIDES 183(H) <150 mg/dL 09/11/2016 10:03 AM [facility] HDL CHOLESTEROL 36(L) >40 mg/dL 6 10:03 AM [facility] NON-HDL CHOLESTEROL 123 <145 mg/dl 09/11/2016 10:03 AM [facility] CHOL/HDL RATIO 4.42 <4.50 09/11/2016 10:03 AM [facility] LDL CHOLESTEROL 86 <=130 mg/dL 09/11/2016 10:03 AM [facility] PATIENT STATUS NOT GIVEN 09/11/2016 10:03 AM SCRAP MATERIALS BUYER [facility] Blood BLOOD SPECIMEN / Unknown Venipuncture / Unknown 09/11/2016 9:26 AM SCRAP MATERIALS BUYER 09/11/2016 9:26 AM SCRAP MATERIALS BUYER Bailey Collins NP CHEMISTRY [facility] [address] [place] [id number], * XR DXA BONE DENSITY 2 SITES (08/18/2015 9:25 AM CDT) Anatomical Region Laterality Modality Spine, HIPS, HIPL, HIPR Other Narrative 08/19/2015 6:36 PM CDT Please see scanned document for results of this study. Bailey Collins NP DEXA from Last 3 Months or Most [...] Comments Code Status Discussion: Discussed Care Teams Banquet Kitchen Supervisor Relationship Specialty Start Date End Date Katerine Bashir MD [address] [place] [address] PCP - General Family Practice 12/27/20 Easton Mccormick MD [address] [place] [address] Cardiovascular Disease 09/26/16
--- OUTSIDE RECORDS SUMMARY | 2024-04-12 18:11 | XMS_ITS | Encounter Summary ---
Author Organization [facility] Address [address] [place] [address] Care Team Providers Care Surface Supervisor Name Role Phone Elsewhere, Pcp Primary Care Provider Unavailabl e Reason for Referral * Outpatient (Routine) - Closed Specialty Diagnoses / Procedures Referred By Apolinar lopez Referred To Contact Ophthalmology Diagnoses Panuveitis Right Necrosis Retinal Acute Right Kenya Garza M.D. [address] [place] [phone] [facility] Referral ID Status Reason Start Date Expiration Date Visits Re quested Visits Authorized [id number] Closed 01/23/2024 07/24/2025 1 1 Reason for Visit * Outpatient (Routine) - Closed Specialty Diagnoses / Procedures Referred By Apolinar lopez Referred To Contact Ophthalmology Kenya Garza M.D. [address] [place] [phone] [facility] Referral ID Status Reason Start Date Expiration Date Visits Re quested Visits Authorized [id number] Closed 01/01/2024 07/02/2025 1 1 Encounter Details Date Type Department Care Team (Latest Contact Info) Description 01/23/2024 12:00 PM CDT Office Visit Department of Ophthalmology in [place], [place] [address] [place] [phone] Kenya Garza M.D. [address] [place] [phone] Panuveitis Right (Primary Dx); Necrosis Retinal Acute Right Social History Tobacco Use Types Packs/Day Years Used Date Smoking Tobacco: Light Smoker Cigarettes 0.5 44.1 Started: 02/26/1980 Smokeless Tobacco: Never Comments:On again off again Alcohol Use Standard Drinks/Week Comments Yes 0 (1 standard drink = 0.6 oz pur e alcohol) [facility] Utilities Answer Date Recorded In the [...] How often do you attend spiritism or jewish serv ices? Never 06/27/2020 Do you belong [...] medical care, and heating? Somewhat hard 06/27/2020 [facility] Occupat ional Health - Occupational Stress [...] your living situation today? I have a [facility] place to live 11/05/2023 Education Answer [...] 02/20/24 Call with questions or new symptoms: [phone] documented in this encounter Progress Notes * [...] with tobramycin drops without improvement. She saw tobacco drummer Dr. Daisy Ivy on 10/23/23. [facility] was [...] has not been able to see her configuration technician oncologist recently because every time she went to an appointment she was sent to the emergency room due to elevated blood pressure. In August 2023, she was sent from an infusion center to [facility] emergency department where shewas found to have oxygen saturations of 78%. CT imaging showed worsening bilateral ground glass opacities. A CT scan was negative for pulmonary embolism. She was transferred to [facility] for additional pulmonology care. On [...] three times in the past three months: [facility] (09/02/23 for hypercalcemiaand acute kidney injury - had CT chest/abdomen/pelvis to assess for malignancy), [facility] again. Each time she saw [...] plans to monitor. (Her oncologist is at [facility].) MEDICATIONS Prednisolone every hour while [...] shallow retinal detachment. No T sign noted. [facility] Macula OCT of the right eye shows [...] membranes. Possible posterior thickening. No T sign. 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 [facility] PLAN: It has been 21 days since [...] CDT Comprehensive Visit Preoperative Evaluation Center in [place], [place] [address] [place] [phone] Prakash Graham M.D. [address] [place] [phone] 04/14/2024 1:30 PM CDT Ancillary Procedure Department of Ophthalmology in [place], [place] [address] [place] [phone] Kenya Garza M.D. [address] [place] [phone] 04/14/2024 2:10 PM CDT Ancillary Procedure Department of Ophthalmology in [place], [place] [address] [place] [phone] Prakash Graham M.D. [address] [place] [phone] 04/14/2024 2:30 PM CDT Office Visit Department of Ophthalmology in [place], [place] [address] [place] [phone] Prakash Graham M.D. [address] [place] [phone] 04/16/2024 12:30 PM CDT Ancillary Procedure Department of Ophthalmology in [place], [place] [address] [place] [phone] Prakash Graham M.D. [address] [place] [phone] 04/16/2024 1:00 PM CDT Ancillary Procedure Department of Ophthalmology in [place], [place] [address] [place] [phone] Kenya Garza M.D. [address] [place] [phone] 04/16/2024 2:00 PM CDT Ancillary Procedure Department of Ophthalmology in [place], [place] [address] [place] [phone] Kenya Garza M.D. [address] [place] [phone] 04/16/2024 2:30 PM CDT Office Visit Department of Ophthalmology in [place], [place] [address] [place] [phone] Kenya Garza M.D. [address] [place] [phone] 04/27/2024 10:02 AM CDT Hospital Encounter [facility] [place] [phone] Prakash Graham M.D. [address] [place] [phone] 04/27/2024 10:02 AM CDT - 04/27/2024 11:45 AM CDT Surgery [facility] [address] [place] [phone] Prakash Graham M.D. [address] [place] [phone] VITRECTOMY - PARS PLANA 25 GAUGE / MEMBRANE PEEL / SILICONE OIL AND ALL ASSOCIATED PROCEDURES RIGHT EYE 04/28/2024 8:00 AM CDT Office Visit Department of Ophthalmology in [place], [place] [address] [place] [phone] Prakash Graham M.D. [address] [place] [phone] 05/05/2024 1:15 PM CDT Ancillary Procedure Department of Ophthalmology in [place], [place] [address] [place] [phone] Prakash Graham M.D. [address] [place] [phone] 05/05/2024 1:45 PM CDT Office Visit Department of Ophthalmology in [place], [place] [address] [place] [phone] Prakash Graham M.D. [address] [place] [phone] 06/02/2024 8:15 AM CDT Ancillary Procedure Department of Ophthalmology in [place], [place] [address] [place] [phone] Prakash Graham M.D. [address] [place] [phone] 06/02/2024 8:45 AM CDT Ancillary Procedure Department of Ophthalmology in [place], [place] [address] [place] [phone] Prakash Graham M.D. [address] [place] [phone] 06/02/2024 9:00 AM CDT Office Visit Department of Ophthalmology in [place], [place] [address] [place] [phone] Prakash Graham M.D. [address] [place] [phone] Scheduled Procedures Name Priority Associated Diagnoses Date/Ti [...] Garza M.D. OPHTH ULTRASOUND Performing Organization Address City/[facility]/ZIP Co de Phone Number OPHTHALMOLGY NON-IMAGING ORDERS documented in this encounter Visit Diagnoses Diagnosis Panuveitis Right- Primary Necrosis Retinal Acute Right Panuveitis Right Necrosis Retinal Acute Right Panuveitis Right Necrosis Retinal Acute Right Panuveitis Right Necrosis Retinal Acute Right documented in this encounter Care Teams Surface Supervisor Relationship Specialty Start Date End Date Elsewhere, Pcp PCP - General Internal Medicine 05/29/19 documented as of this encounter
--- OUTSIDE RECORDS SUMMARY | 2024-04-12 18:11 | XMS_ITS | Encounter Summary ---
Author Organization [facility] Address [address] [place] [address] Care Team Providers Care Program Evaluation Consultant Name Role Phone Elsewhere, Pcp Primary Care Provider Unavailabl e Encounter Details Date Type Department Care Team (Latest Contact Info) Description 02/20/2024 10:00 AM CDT Ancillary Procedure Department of Ophthalmology in [place], [place] [address] [place] [address] Kenya Garza M.D. [address] [place] [address] Panuveitis Right; Necrosis Retinal Acute Right Social History Tobacco Use Types Packs/Day Years Used Date Smoking Tobacco: Light Smoker Cigarettes 0.5 44.1 Started: 02/26/1980 Smokeless Tobacco: Never Comments:On again off again Alcohol Use Standard Drinks/Week Comments Yes 0 (1 standard drink = 0.6 oz pur e alcohol) [facility] Utilities Answer Date Recorded In the past 12 months has [employer], gas, oil, or water [employer] threatened to shut off services in [...] often do you attend oriental orthodox or restorationism serv ices? Never 06/27/2020 Do [...] medical care, and heating? Somewhat hard 06/27/2020 [facility] - [...] have a [facility] place to live 11/05/2023 Education Answer Date [...] CDT Comprehensive Visit Preoperative Evaluation Center in [place], [place] [address] [place] [phone] Prakash Graham M.D. [address] [place] [phone] 04/14/2024 1:30 PM CDT Ancillary Procedure Department of Ophthalmology in [place], [place] [address] [place] [phone] Kenya Garza M.D. [address] [place] [phone] 04/14/2024 2:10 PM CDT Ancillary Procedure Department of Ophthalmology in [place], [place] [address] [place] [phone] Prakash Graham M.D. [address] [place] [phone] 04/14/2024 2:30 PM CDT Office Visit Department of Ophthalmology in [place], [place] [address] [place] [phone] Prakash Graham M.D. [address] [place] [phone] 04/16/2024 12:30 PM CDT Ancillary Procedure Department of Ophthalmology in [place], [place] [address] [place] [phone] Prakash Graham M.D. [address] [place] [phone] 04/16/2024 1:00 PM CDT Ancillary Procedure Department of Ophthalmology in [place], [place] [address] [place] [phone] Kenya Garza M.D. [address] [place] [phone] 04/16/2024 2:00 PM CDT Ancillary Procedure Department of Ophthalmology in [place], [place] [address] [place] [phone] Kenya Garza M.D. [address] [place] [phone] 04/16/2024 2:30 PM CDT Office Visit Department of Ophthalmology in [place], [place] [address] [place] [phone] Kenya Garza M.D. [address] [place] [phone] 04/27/2024 10:02 AM CDT Hospital Encounter T [facility] OR [facility] [place] [phone] Prakash Graham M.D. [address] [place] [phone] 04/27/2024 10:02 AM CDT - 04/27/2024 11:45 AM CDT Surgery T [facility] OR [facility] [address] [place] [phone] Prakash Graham M.D. [address] [place] [phone] VITRECTOMY - PARS PLANA 25 GAUGE / MEMBRANE PEEL / SILICONE OIL AND ALL ASSOCIATED PROCEDURES RIGHT EYE 04/28/2024 8:00 AM CDT Office Visit Department of Ophthalmology in [place], [place] [address] [place] [phone] Prakash Graham M.D. [address] [place] [phone] 05/05/2024 1:15 PM CDT Ancillary Procedure Department of Ophthalmology in [place], [place] [address] [place] [phone] Prakash Graham M.D. [address] [place] [phone] 05/05/2024 1:45 PM CDT Office Visit Department of Ophthalmology in [place], [place] [address] [place] [phone] Prakash Graham M.D. [address] [place] [phone] 06/02/2024 8:15 AM CDT Ancillary Procedure Department of Ophthalmology in [place], [place] [address] [place] [phone] Prakash Graham M.D. [address] [place] [phone] 06/02/2024 8:45 AM CDT Ancillary Procedure Department of Ophthalmology in [place], [place] [address] [place] [phone] Prakash Graham M.D. [address] [place] [phone] 06/02/2024 9:00 AM CDT Office Visit Department of Ophthalmology in [place], [place] [address] [place] [address] Prakash Graham M.D. [address] [place] [address] Scheduled Procedures Name Priority Associated Diagnoses Date/Ti [...] Right documented in this encounter Care Teams Program Evaluation Consultant Relationship Specialty Start Date End Date Elsewhere, Pcp PCP - General Internal Medicine 05/29/19 documented as of this encounter
--- OUTSIDE RECORDS SUMMARY | 2024-04-12 18:11 | XMS_ITS | Encounter Summary ---
Author Organization [facility] Address [address] [place] [address] Care Team Providers Care Class 1 Owner Operator Name Role Phone Elsewhere, Pcp Primary Care Provider Unavailabl e Reason for Referral * Outpatient (Routine) - Closed Specialty Diagnoses / Procedures Referred By Apolinar t Referred To Contact Neurology Diagnoses Posterior Reversible Encephalopathy Syndrome Katerine Bashir M.D. [address] [place] [address] [facility] Referral ID Status Reason Start Date Expiration Date Visits Re quested Visits Authorized [id number] Closed 01/20/2024 07/21/2025 1 1 Encounter Details Date Type Department Care Team (Latest Contact Info) Description 01/20/2024 [facility] [address] [place] [address] Katerine Bashir M.D. [address] [place] [address] Posterior Reversible Encephalopathy Syndrome (Primary [...] Recorded In the past 12 months has [employer], gas, oil, or water [employer] threatened to shut off services in your home? No 11/05/2023 Social Connection and Isolation Panel [NHANES] A nswer Date Recorded In a typical week, how many times do you talk on the phone with family, friends, or neighbors? Once a week 06/27/2020 How often do you get together with friends or re latives? Never 06/27/2020 How often do you attend roman catholic or scientology serv ices? Never 06/27/2020 Do [...] care, and heating? Somewhat hard 06/27/2020 [facility] - [...] your living situation today? I have a [employer] place to live 11/05/2023 Education Answer Date [...] CDT Comprehensive Visit Preoperative Evaluation Center in [place], [place] [address] [place] [phone] Prakash Graham M.D. [address] [place] [phone] 04/14/2024 1:30 PM CDT Ancillary Procedure Department of Ophthalmology in [place], [place] [address] [place] [phone] Kenya Garza M.D. [address] [place] [phone] 04/14/2024 2:10 PM CDT Ancillary Procedure Department of Ophthalmology in [place], [place] [address] [place] [phone] Prakash Graham M.D. [address] [place] [phone] 04/14/2024 2:30 PM CDT Office Visit Department of Ophthalmology in [place], [place] [address] [place] [phone] Prakash Graham M.D. [address] [place] [phone] 04/16/2024 12:30 PM CDT Ancillary Procedure Department of Ophthalmology in [place], [place] [address] [place] [phone] Prakash Graham M.D. [address] [place] [phone] 04/16/2024 1:00 PM CDT Ancillary Procedure Department of Ophthalmology in [place], [place] [address] [place] [phone] Kenya Garza M.D. [address] [place] [phone] 04/16/2024 2:00 PM CDT Ancillary Procedure Department of Ophthalmology in [address] [phone] Kenya Garza M.D. [address] [place] [phone] 04/16/2024 2:30 PM CDT Office Visit Department of Ophthalmology in [place], [place] [address] [place] [phone] Kenya Garza M.D. [address] [place] [phone] 04/27/2024 10:02 AM CDT Hospital Encounter [facility] [address] [place] [phone] Prakash Graham M.D. [address] [place] [phone] 04/27/2024 10:02 AM CDT - 04/27/2024 11:45 AM CDT Surgery [facility] [address] [place] [phone] Prakash Graham M.D. [address] [place] [phone] VITRECTOMY - PARS PLANA 25 GAUGE / MEMBRANE PEEL / SILICONE OIL AND ALL ASSOCIATED PROCEDURES RIGHT EYE 04/28/2024 8:00 AM CDT Office Visit Department of Ophthalmology in [place], [place] [address] [place] [phone] Prakash Graham M.D. [address] [place] [phone] 05/05/2024 1:15 PM CDT Ancillary Procedure Department of Ophthalmology in [place], [place] [address] [place] [phone] Prakash Graham M.D. [address] [place] [phone] 05/05/2024 1:45 PM CDT Office Visit Department of Ophthalmology in [place], [place] [address] [place] [phone] Prakash Graham M.D. [address] [place] [phone] 06/02/2024 8:15 AM CDT Ancillary Procedure Department of Ophthalmology in [place], [place] [address] [place] [phone] Prakash Graham M.D. [address] [place] [phone] 06/02/2024 8:45 AM CDT Ancillary Procedure Department of Ophthalmology in [place], [place] [address] [place] [address] Prakash Graham M.D. [address] [place] [phone] 06/02/2024 9:00 AM CDT Office Visit Department of Ophthalmology in [place], [place] [address] [place] [phone] Prakash Graham M.D. [address] [place] [phone] Scheduled Procedures Name Priority Associated Diagnoses Date/Ti [...] Right documented in this encounter Care Teams Class 1 Owner Operator Relationship Specialty Start Date End Date Elsewhere, Pcp PCP - General Internal Medicine 05/29/19 documented as of this encounter
--- OUTSIDE RECORDS SUMMARY | 2024-04-12 18:11 | XMS_ITS | Encounter Summary ---
Author Organization [facility] Address [address] [place] [address] Care Team Providers Care Documentation Supervisor Name Role Phone Elsewhere, Pcp Primary Care Provider Unavailabl e Reason for Referral * Outpatient (Routine) - Closed Specialty Diagnoses / Procedures Referred By Contac t Referred To Contact Cardiovascular Disease Diagnoses Coronary Artery Disease (Unspecified) Katerine Bashir M.D. [address] [place] [address] [facility] Referral ID Status Reason Start Date Expiration Date Visits Re quested Visits Authorized [id number] Closed 02/10/2019 02/10/2020 3 3 Encounter Details Date Type Department Care Team (Late st Contact Info) Description 02/10/2019 [facility] [address] [place] [address] Katerine Bashir M.D. [address] [place] [address] Coronary Artery Disease (Unspecified) (Primary [...] CDT Comprehensive Visit Preoperative Evaluation Center in [place], [place] [address] [place] [phone] Prakash Graham M.D. [address] [place] [phone] 04/14/2024 1:30 PM CDT Ancillary Procedure Department of Ophthalmology in [place], [place] [address] [place] [phone] Kenya Garza M.D. [address] [place] [phone] 04/14/2024 2:10 PM CDT Ancillary Procedure Department of Ophthalmology in [place], [place] [address] [place] [phone] Prakash Graham M.D. [address] [place] [phone] 04/14/2024 2:30 PM CDT Office Visit Department of Ophthalmology in [place], [place] [address] [place] [phone] Prakash Graham M.D. [address] [place] [phone] 04/16/2024 12:30 PM CDT Ancillary Procedure Department of Ophthalmology in [place], [place] [address] [place] [phone] Prakash Graham M.D. [address] [place] [phone] 04/16/2024 1:00 PM CDT Ancillary Procedure Department of Ophthalmology in [place], [place] [address] [place] [phone] Kenya Garza M.D. [address] [place] [phone] 04/16/2024 2:00 PM CDT Ancillary Procedure Department of Ophthalmology in [place], [place] [address] [place] [phone] Kenya Garza M.D. [address] [place] [phone] 04/16/2024 2:30 PM CDT Office Visit Department of Ophthalmology in [place], [place] [address] [place] [phone] Kenya Garza M.D. [address] [place] [phone] 04/27/2024 10:02 AM CDT Hospital Encounter [facility] OR [address] [place] [phone] Prakash Graham M.D. [address] [place] [phone] 04/27/2024 10:02 AM CDT - 04/27/2024 11:45 AM CDT Surgery [facility] OR [facility] [place] [phone] Prakash Graham M.D. [address] [place] [phone] VITRECTOMY - PARS PLANA 25 GAUGE / MEMBRANE PEEL / SILICONE OIL AND ALL ASSOCIATED PROCEDURES RIGHT EYE 04/28/2024 8:00 AM CDT Office Visit Department of Ophthalmology in [place], [place] [address] [place] [phone] Prakash Graham M.D. [address] [place] [phone] 05/05/2024 1:15 PM CDT Ancillary Procedure Department of Ophthalmology in [place], [place] [address] [place] [phone] Prakash Graham M.D. [address] [place] [phone] 05/05/2024 1:45 PM CDT Office Visit Department of Ophthalmology in [place], [place] [address] [place] [phone] Prakash Graham M.D. [address] [place] [phone] 06/02/2024 8:15 AM CDT Ancillary Procedure Department of Ophthalmology in [place], [place] [address] [place] [phone] Prakash Graham M.D. [address] [place] [phone] 06/02/2024 8:45 AM CDT Ancillary Procedure Department of Ophthalmology in [place], [place] [address] [place] [phone] Prakash Graham M.D. [address] [place] [phone] 06/02/2024 9:00 AM CDT Office Visit Department of Ophthalmology in [address] [phone] Prakash Graham M.D. [address] [place] [phone] Scheduled Procedures Name Priority Associated Diagnoses Date/Ti [...] documented as of this encounter Care Teams Documentation Supervisor Relationship Specialty Start Date End Date Elsewhere, Pcp PCP - General Internal Medicine 05/29/19 documented as of this encounter
== END 2024-03-31 16:12 | disposition home or self-care (01) ==
LOC: AMB 04-12 18:07
PROVIDERS: PCP Family Medicine; Visit Provider Emergency Medicine
DX: S69.91XA Unspecified injury of right wrist, hand and finger(s), initial encounter (principal); S69.92XA Unspecified injury of left wrist, hand and finger(s), initial encounter; V53.5XXA Driver of pick-up truck or van injured in collision with car, pick-up truck or van in traffic accident, initial encounter; Y92.414 Local residential or business street as the place of occurrence of the external cause
CPT/HCPCS: A0425; A0427

== ENCOUNTER 2024-03-31 16:34 | Emergency (ER) | payer OTHER, MEDICARE, SELFPAY ==
[2024-03-31 16:42] VITALS: BP 178/92; PULSE 74; RESP 18; TEMP 36.8; O2SAT 96; BMI 30.7
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
--- OUTSIDE RECORDS SUMMARY | 2024-03-31 18:06 | XMS_ITS | Encounter Summary ---
Author Organization [facility] Address [address] [place] [address] Care Team Providers Care Life Consultant Name Role Phone Elsewhere, Pcp Primary Care Provider Unavailabl e Encounter Details Date Type Department Care Team (Late st Contact Info) Description 03/13/2024 Orders Only Department of Ophthalmology in [place], [place] [address] [place] [phone] Jean Claude Newsome, C.O.A. Necrosis Retinal Acute Right (Primary Dx) Social History Tobacco Use Types Packs/Day Years Used Date Smoking Tobacco: Light Smoker Cigarettes 0.5 44.1 Started: 02/26/1980 Smokeless Tobacco: Never Comments:On again off again Alcohol Use Standard Drinks/Week Comments Yes 0 (1 standard drink = 0.6 oz pur e alcohol) [facility] Utilities Answer Date Recorded In the past 12 months has [employer] electric, gas, oil, or water company threatened [...] How often do you attend zoroastrianism or yazidism serv ices? Never 06/27/2020 Do [...] medical care, and heating? Somewhat hard 06/27/2020 [facility] - Occupational Stress [...] your living situation today? I have a [facility] place to live 11/05/2023 Education Answer Date [...] CDT Comprehensive Visit Preoperative Evaluation Center in [place], [place] [address] [place] [phone] Prakash Graham M.D. [address] [place] [phone] 04/14/2024 1:30 PM CDT Ancillary Procedure Department of Ophthalmology in [place], [place] [address] [place] [phone] Kenya Garza M.D. [address] [place] [phone] 04/14/2024 2:10 PM CDT Ancillary Procedure Department of Ophthalmology in [place], [place] [address] [place] [phone] Prakash Graham M.D. [address] [place] [phone] 04/14/2024 2:30 PM CDT Office Visit Department of Ophthalmology in [place], [place] [address] [place] [phone] Prakash Graham M.D. [address] [place] [phone] 04/16/2024 12:30 PM CDT Ancillary Procedure Department of Ophthalmology in [place], [place] [address] [place] [phone] Prakash Graham M.D. [address] [place] [phone] 04/16/2024 1:00 PM CDT Ancillary Procedure Department of Ophthalmology in [place], [place] [address] [place] [phone] Kenya Garza M.D. [address] [place] [phone] 04/16/2024 2:00 PM CDT Ancillary Procedure Department of Ophthalmology in [place], [place] [address] [place] [phone] Kenya Garza M.D. [address] [place] [phone] 04/16/2024 2:30 PM CDT Office Visit Department of Ophthalmology in [place], [place] [address] [place] [phone] Kenya Garza M.D. [address] [place] [phone] 04/27/2024 10:02 AM CDT Hospital Encounter [facility] [place] [phone] Prakash Graham M.D. [address] [place] [phone] 04/27/2024 10:02 AM CDT - 04/27/2024 11:45 AM CDT Surgery [facility] [address] [place] [phone] Prakash Graham M.D. [address] [place] [phone] VITRECTOMY - PARS PLANA 25 GAUGE / MEMBRANE PEEL / SILICONE OIL AND ALL ASSOCIATED PROCEDURES RIGHT EYE 04/28/2024 8:00 AM CDT Office Visit Department of Ophthalmology in [place], [place] [address] [place] [phone] Prakash Graham M.D. [address] [place] [phone] 05/05/2024 1:15 PM CDT Ancillary Procedure Department of Ophthalmology in [place], [place] [address] [place] [phone] Prakash Graham M.D. [address] [place] [phone] 05/05/2024 1:45 PM CDT Office Visit Department of Ophthalmology in [place], [place] [address] [place] [phone] Prakash Graham M.D. [address] [place] [phone] 06/02/2024 8:15 AM CDT Ancillary Procedure Department of Ophthalmology in [place], [place] [address] [place] [phone] Prakash Graham M.D. [address] [place] [phone] 06/02/2024 8:45 AM CDT Ancillary Procedure Department of Ophthalmology in [place], [place] [address] [place] [phone] Prakash Graham M.D. [address] [place] [phone] 06/02/2024 9:00 AM CDT Office Visit Department of Ophthalmology in [place], [place] [address] [place] [phone] Prakash Graham M.D. [address] [place] [phone] Scheduled Procedures Name Priority Associated Diagnoses Date/Ti me VITRECTOMY - PARS PLANA 25 GAUGE Panuveitis Right Necrosis Retinal Acute Right 04/27/2024 10:02 AM CDT documented as of this encounter Visit Diagnoses Diagnosis Necrosis Retinal Acute Right- Primary Panuveitis Right Necrosis Retinal Acute Right documented in this encounter Care Teams Life Consultant Relationship Specialty Start Date End Date Elsewhere, Pcp PCP - General Internal Medicine 05/29/19 documented as of this encounter
--- OUTSIDE RECORDS SUMMARY | 2024-03-31 18:06 | XMS_ITS | Encounter Summary ---
Author Organization [facility] Address [address] [place] [address] Care Team Providers Care Fluid Designer Name Role Phone Elsewhere, Pcp Primary Care [...] drink = 0.6 oz pur e alcohol) [facility] Utilities Answer Date Recorded In the past 12 months has [employer] electric, gas, oil, or water company threatened [...] Never 06/27/2020 How often do you attend restorationist or jew serv ices? Never 06/27/2020 Do you belong to any clubs o r organizations such as restorationist groups, unions, fraternal or athletic groups, or [...] medical care, and heating? Somewhat hard 06/27/2020 [facility] - Occupational Stress Questionnaire Answer [...] your living situation today? I have a [facility] place to live 11/05/2023 Education Answer [...] CDT Comprehensive Visit Preoperative Evaluation Center in [place], [place] [address] [place] [phone] Prakash Graham M.D. [address] [place] [phone] 04/14/2024 1:30 PM CDT Ancillary Procedure Department of Ophthalmology in [address] [phone] Kenya Garza M.D. [address] [place] [phone] 04/14/2024 2:10 PM CDT Ancillary Procedure Department of Ophthalmology in [address] [phone] Prakash Graham M.D. [address] [place] [phone] 04/14/2024 2:30 PM CDT Office Visit Department of Ophthalmology in [address] [phone] Prakash Graham M.D. [address] [place] [phone] 04/16/2024 12:30 PM CDT Ancillary Procedure Department of Ophthalmology in [address] [phone] Prakash Graham M.D. [address] [place] [phone] 04/16/2024 1:00 PM CDT Ancillary Procedure Department of Ophthalmology in [place], [place] [address] [place] [phone] Kenya Garza M.D. [address] [place] [phone] 04/16/2024 2:00 PM CDT Ancillary Procedure Department of Ophthalmology in [place], [place] [address] [place] [phone] Kenya Garza M.D. [address] [place] [phone] 04/16/2024 2:30 PM CDT Office Visit Department of Ophthalmology in [place], [place] [address] [place] [phone] Kenya Garza M.D. [address] [place] [phone] 04/27/2024 10:02 AM CDT Hospital Encounter [facility] OR [facility] [place] [phone] Prakash Graham M.D. [address] [place] [phone] 04/27/2024 10:02 AM CDT - 04/27/2024 11:45 AM CDT Surgery [facility] [address] [place] [phone] Prakash Graham M.D. [address] [place] [phone] VITRECTOMY - PARS PLANA 25 GAUGE / MEMBRANE PEEL / SILICONE OIL AND ALL ASSOCIATED PROCEDURES RIGHT EYE 04/28/2024 8:00 AM CDT Office Visit Department of Ophthalmology in [place], [place] [address] [place] [phone] Prakash Graham M.D. [address] [place] [phone] 05/05/2024 1:15 PM CDT Ancillary Procedure Department of Ophthalmology in [place], [place] [address] [place] [phone] Prakash Graham M.D. [address] [place] [phone] 05/05/2024 1:45 PM CDT Office Visit Department of Ophthalmology in [place], [place] [address] [place] [phone] Prakash Graham M.D. [address] [place] [phone] 06/02/2024 8:15 AM CDT Ancillary Procedure Department of Ophthalmology in [place], [place] [address] [place] [phone] Prakash Graham M.D. [address] [place] [phone] 06/02/2024 8:45 AM CDT Ancillary Procedure Department of Ophthalmology in [address] [phone] Prakash Graham M.D. [address] [place] [phone] 06/02/2024 9:00 AM CDT Office Visit Department of Ophthalmology in [address] [phone] Prakash Graham M.D. [address] [place] [phone] Scheduled Procedures Name Priority Associated Diagnoses Date/Ti me VITRECTOMY - PARS PLANA 25 GAUGE Panuveitis Right Necrosis Retinal Acute Right 04/27/2024 10:02 AM CDT documented as of this encounter Procedures Procedure Name Priority Date/Time Associated Diagnosis Comments OPHTHALMOLOGY IMAGE EXAM Routine 03/13/2024 12:10 AM CDT documented in this encounter Results * Eyes US-Eye [id number] Image Exam (03/13/2024 12:10 AM CDT) Narrative [...] on filedocumented in this encounter Care Teams Fluid Designer Relationship Specialty Start Date End Date Elsewhere, Pcp PCP - General Internal Medicine 05/29/19 documented as of this encounter
--- OUTSIDE RECORDS SUMMARY | 2024-03-31 18:06 | XMS_ITS | Clinical Summary ---
Author Organization [facility] Address [address] [place] [address] Care Team Providers Care Wool Washer Feeder Name Role Phone Elsewhere, Pcp Primary Care Provider Unavailabl e Source Comments Patient records contain information from all sites at [facility]. For routine questions regarding patient records, call [phone] during business hours, M-F 8:00 AM - 5:00 PM Central Time. Record requests for emergency care only can be directed to [phone] at any time.[facility] Allergies Active Allergy Reactions Criticality Noted Date Comments Aller Xt-[place] Pollen-Old Field Blisters,Itching,Rash High 06/21/2020 Medications Medication Sig Dispensed [...] 03/16/2024 Orders Only Department of Ophthalmology in [place], [place] [address] [place] [phone] Shahnaz Amato C.O.AWhitney Necrosis Retinal Acute Right (Primary Dx) 03/16/2024 Orders Only Department of Ophthalmology in [place], [place] [address] [place] [address] [phone] Jean Claude Newsome C.O.AWhitney Panuveitis Right (Primary Dx); Necrosis Retinal Acute Right 03/14/2024 Orders Only Department of Ophthalmology in [place], [place] [address] [place] [address] [phone] Raffi Boyd M.D. 03/13/2024 2:00 PM CDT Procedure visit Department of Ophthalmology in [place], [place] [address] [place] [address] [phone] Prakash Graham M.D. Primary Hypotony Right Eye (Primary Dx); Panuveitis Right; Necrosis Retinal Acute Right 03/13/2024 1:00 PM CDT Office Visit Department of Ophthalmology in [place], [place] [address] [place] [phone] Prakash Graham M.D. Panuveitis Right (Primary Dx); Necrosis Retinal Acute Right 03/13/2024 12:00 PM CDT Ancillary Procedure Department of Ophthalmology in [place], [place] [address] [place] [address] [phone] Kenya Garza M.D. Panuveitis Right; Necrosis Retinal Acute Right 03/13/2024 11:30 AM CDT Office Visit Department of Ophthalmology in [place], [place] [address] [place] [phone] Kenya Garza M.D. Necrosis Retinal Acute Right (Primary Dx); Panuveitis Right 03/13/2024 8:00 AM CDT Ancillary Procedure Department of Ophthalmology in [place], [place] [address] [place] [phone] Kenya Garza M.D. Panuveitis Right; Necrosis Retinal Acute Right 03/13/2024 12:10 AM CDT Ancillary Procedure Department of Ophthalmology 03/13/2024 12:05 AM CDT Ancillary Procedure Department of Ophthalmology 03/13/2024 Orders Only Department of Ophthalmology in [address] [phone] Jean Claude Newsome C.O.A. Necrosis Retinal Acute Right (Primary Dx) 03/13/2024 Ancillary Procedure Department of Ophthalmology 03/11/2024 Clinical Communication Department of Ophthalmology in [address] [phone] Kenya Garza M.D. 03/10/2024 Clinical Communication Department of Ophthalmology in [address] [phone] Kenya Garza M.D. 02/25/2024 4:30 PM CDT Telemedicine Department of Neurology in [address] [phone] Piter Baez M.D. Posterior Reversible Encephalopathy Syndrome (Primary Dx) 02/20/2024 3:05 PM CDT - 02/20/2024 11:59 PM CDT Hospital Encounter Department of Radiology, [facility] in [address] [address] Piter Baez M.D. Posterior Reversible Encephalopathy Syndrome Discharge Disposition: Home or Self Care 02/20/2024 1:00 PM CDT Comprehensive Visit Department of Neurology in [address] [phone] Piter Baez M.D. Posterior Reversible Encephalopathy Syndrome 02/20/2024 11:15 AM CDT Office Visit Department of Ophthalmology in [address] [phone] Kenya Garza M.D. Panuveitis Right (Primary Dx); Necrosis Retinal Acute Right 02/20/2024 10:00 AM CDT Ancillary Procedure Department of Ophthalmology in [address] [phone] Kenya Garza M.D. Panuveitis Right; Necrosis Retinal Acute Right 02/20/2024 9:50 AM CDT Ancillary Procedure Department of Ophthalmology in [place], [place] [address] [place] [phone] Kenya Garza M.D. Panuveitis Right; Necrosis Retinal Acute Right 02/20/2024 12:10 AM CDT Ancillary Procedure Department of Ophthalmology 02/20/2024 12:05 AM CDT Ancillary Procedure Department of Ophthalmology 02/20/2024 Ancillary Procedure Department of Ophthalmology 01/31/2024 Clinical Communication Department of Neurology in [place], [place] [address] [place] [phone] Piter Baez M.D. Pre-visit Testing Orders 01/23/2024 12:00 PM CDT Office Visit Department of Ophthalmology in [place], [place] [address] [place] [phone] Kenya Garza M.D. Panuveitis Right (Primary Dx); Necrosis Retinal Acute Right 01/20/2024 [facility] [address] [place] [address] Katerine Bashir M.D. Posterior Reversible Encephalopathy Syndrome (Primary Dx) 01/10/2024 Clinical Communication Department of Ophthalmology in [place], [place] [address] [place] [phone] Kenya Garza M.D. Outside hospitalization and medications 01/01/2024 12:45 PM SENIOR LEAD JAVA DEVELOPER Office Visit Department of Ophthalmology in [place], [place] [address] [place] [phone] Kenya Garza M.D. Necrosis Retinal Acute Right (Primary Dx); Panuveitis Right 01/01/2024 12:30 PM SENIOR LEAD JAVA DEVELOPER Ancillary Procedure Department of Ophthalmology in [place], [place] [address] [place] [phone] Kenya Garza M.D. Panuveitis Right 01/01/2024 Ancillary [...] drink = 0.6 oz pur e alcohol) [facility] Utilities Answer Date Recorded In the [...] How often do you attend rastafari or christian serv ices? Never 06/27/2020 Do [...] heating? Somewhat hard 06/27/2020 [facility] [place] of Occupat ional Health - Occupational Stress [...] CDT Comprehensive Visit Preoperative Evaluation Center in [place], [place] [address] [place] [phone] Prakash Graham M.D. [address] [place] [phone] 04/14/2024 1:30 PM CDT Ancillary Procedure Department of Ophthalmology in [address] [phone] Kenya Garza M.D. [address] [place] [phone] 04/14/2024 2:10 PM CDT Ancillary Procedure Department of Ophthalmology in [address] [address] Prakash Graham M.D. [address] [place] [phone] 04/14/2024 2:30 PM CDT Office Visit Department of Ophthalmology in [address] [phone] Prakash Graham M.D. [address] [place] [phone] 04/16/2024 12:30 PM CDT Ancillary Procedure Department of Ophthalmology in [address] [phone] Prakash Graham M.D. [address] [place] [phone] 04/16/2024 1:00 PM CDT Ancillary Procedure Department of Ophthalmology in [place], [place] [address] [place] [phone] Kenya Garza M.D. [address] [place] [phone] 04/16/2024 2:00 PM CDT Ancillary Procedure Department of Ophthalmology in [place], [place] [address] [place] [phone] Kenya Garza M.D. [address] [place] [phone] 04/16/2024 2:30 PM CDT Office Visit Department of Ophthalmology in [place], [place] [address] [place] [phone] Kenya Garza M.D. [address] [place] [phone] 04/27/2024 10:02 AM CDT Hospital Encounter [facility] [place] [phone] Prakash Graham M.D. [address] [place] [phone] 04/27/2024 10:02 AM CDT - 04/27/2024 11:45 AM CDT Surgery [facility] [address] [place] [phone] Prakash Graham M.D. [address] [place] [phone] VITRECTOMY - PARS PLANA 25 GAUGE / MEMBRANE PEEL / SILICONE OIL AND ALL ASSOCIATED PROCEDURES RIGHT EYE 04/28/2024 8:00 AM CDT Office Visit Department of Ophthalmology in [place], [place] [address] [place] [phone] Prakash Graham M.D. [address] [place] [phone] 05/05/2024 1:15 PM CDT Ancillary Procedure Department of Ophthalmology in [place], [place] [address] [place] [phone] Prakash Graham M.D. [address] [place] [phone] 05/05/2024 1:45 PM CDT Office Visit Department of Ophthalmology in [place], [place] [address] [place] [phone] Prakash Graham M.D. [address] [place] [phone] 06/02/2024 8:15 AM CDT Ancillary Procedure Department of Ophthalmology in [place], [place] [address] [place] [phone] Prakash Graham M.D. [address] [place] [phone] 06/02/2024 8:45 AM CDT Ancillary Procedure Department of Ophthalmology in [address] [phone] Prakash Graham M.D. [address] [place] [phone] 06/02/2024 9:00 AM CDT Office Visit Department of Ophthalmology in [address] [phone] Prakash Graham M.D. [address] [place] [phone] Scheduled Procedures Name Priority Associated Diagnoses Date/Ti [...] Procedure Name Priority Date/Time Associated Diagnosis Comments OUTSIDE NM PET Routine 03/19/2024 6:30 PM CDT CYCLOPHOTOCOAGULATI ON, TRANSSCLERAL - OD - RIGHT [...] BOTH EYES Routine 01/01/2024 12:34 PM SENIOR LEAD JAVA DEVELOPER Panuveitis Right OPHTHALMOLOGY IMAGE EXAM Routine 01/01/2024 12:00 AM SENIOR LEAD JAVA DEVELOPER CT CHEST WITH IV CONTRAST RAD - Routine (most inpatients and all outpatients) 03/31/2020 8:50 AM CDT Nodule Pulmonary from Last 3 Months or Most Recently Relevant to Health Maintenance Results * PET skull to mid thigh-Outside NM Pet (03/19/2024 6:30 PM CDT) 03/19/2024 6:30 PM CDT Narrative IIMS - 03/19/2024 7:59 PM CDT This order has been created and auto-finalized to support the import of outside images. If available, original interpretation can be found on the Media Tab in Chart Review, in Document Viewer, or as an image in QREADS. If a re-interpretation or overread is required please follow defined workflow. ?? Provider Not In System IMG NM PROCEDURES Performing Organization Address [facility] Co de Phone Number IIAK NA * Cyclophotocoagulation, Transscleral - OD - Right [...] OPHTH CLINIC PROCED URES Performing Organization Address City/[facility]/ZIP Co de Phone Number OPHTHALMOLGY NON-IMAGING ORDERS * Ultrasound Biomicroscopy (UBM) - [...] possible ciliochoroidal effusion. ZK Kenya Garza M.D. OPH ULTRASOUND Performing Organization Address [facility] de Phone Number [facility] * B-Scan Ultrasound - OD - Right Eye (03/13/2024 9:45 AM CDT) Narrative [facility] - 03/13/2024 10:21 AM CDT 03/13/2024 B-Scan Right Eye: dense vitreous opacities, probable posterior vitreous detachment, vitreous membranes possibly extending to disc, detachments vs opacities - cannot rule out choroidal detachment, thickened fundus appearance. UBM Right Eye: minimal opacities in anterior chamber, ciliary body detachment noted, possible ciliochoroidal effusion. BriannaK Kenya Garza M.D. OPH ULTRASOUND Performing Organization Address [facility] de Phone Number [facility] ORD[facility] * Eyes US-Eye F-Oyex-Tkmepwwloljiv Image Exam (03/13/2024 12:10 AM CDT) Only [...] RAD IMAGI NG PROCEDURES Performing Organization Address [facility] Co de Phone Number IIMS NA * [...] findings. Nothing for PRES. Piter Baez M.D. [facility] [place] [place] PROCEDURES * Optical Coherence Tomography - [...] Garza M.D. OPHTH TOMOGRAPHY Performing Organization Address [facility] Co de Phone Number OPHTHALMOLOGY IMAGING [...] Garza M.D. OPHTH ULTRASOUND Performing Organization Address [facility] de Phone Number OPHTHALMOL NON-IMAGING ORDERS * MR HEAD BRAIN WWO-Outside [...] IMG MRI PROCEDURE S Performing Organization Address [facility] Co de Phone Number IIMS NA * Optical Coherence Tomography - Macula/Retina - OU - Both Eyes (01/01/2024 12:34 PM SENIOR LEAD JAVA DEVELOPER) CMT L Microns 247 um OPH THALMOLOGY IMAGING EXAM Narrative OPHTHALMOLOGY IMAGING EXAM - 01/01/2024 12:45 PM SENIOR LEAD JAVA DEVELOPER Right Eye Reliability was good. OCT device [...] M.D. OPHTH TOMOGRAPHY OPHTHALMOLOGY IMAGING EXAM * CT Chest with [...] Recently Relevant to Health Maintenance Care Teams Wool Washer Feeder Relationship Specialty Start Date End Date Elsewhere, Pcp PCP - General Internal Medicine 05/29/19
--- OUTSIDE RECORDS SUMMARY | 2024-03-31 18:06 | XMS_ITS | Encounter Summary ---
Author Organization [facility] Address [address] [place] [address] Care Team Providers Care Tiller Man Name Role Phone Elsewhere, Pcp Primary Care Provider Unavailabl e Reason for Referral * Outpatient (Routine) - Authorized Specialty Diagnoses / Procedures Referred By Contac t Referred To Contact Ophthalmology Prakash Graham M.D. [address] [place] [address] [facility] Referral ID Status Reason Start Date Expiration Date V isits Requested Visits Authorized [id number] Authorized 03/13/2024 09/12/2025 1 1 Scheduling Instructions 1 MO PO Right Eye, DILATE / OCT OU * Outpatient (Routine) - Authorized Specialty Diagnoses / Procedures Referred By Contac t Referred To Contact Ophthalmology Prakash Graham M.D. [address] [place] [address] [facility] Referral ID Status Reason Start Date Expiration Date V isits Requested Visits Authorized [id number] Authorized 03/13/2024 09/12/2025 1 1 Scheduling Instructions 1 WK PO Right Eye, DILATE OD * Outpatient (Routine) - Authorized Specialty Diagnoses / Procedures Referred By Contac t Referred To Contact Ophthalmology Prakash Graham M.D. [address] [place] [address] [facility] Referral ID Status Reason Start Date Expiration Date V isits Requested Visits Authorized [id number] Authorized 03/13/2024 09/12/2025 1 1 Scheduling Instructions 1 DAY PO Right Eye * Outpatient (Routine) - Authorized Specialty Diagnoses / Procedures Referred By Apolinar lopez Referred To Contact Anesthesiology Diagnoses Panuveitis Right Necrosis Retinal Acute Right Prakash Graham M.D. [address] [place] [address] [facility] Referral ID Status Reason Start Date Expiration Date V isits Requested Visits Authorized [id number] Authorized 03/13/2024 09/12/2025 1 1 * Outpatient (Routine) - Canceled Specialty Diagnoses / Procedures Referred By Apolinar lopez Referred To Contact Diagnoses Panuveitis Right Necrosis Retinal Acute Right Procedures Intravitreal Injection, Pharmacologic Agent - OD - Right Eye Prakash Graham M.D. [address] [place] [address] [facility] Referral ID Status Reason Start Date Expiration Date V isits Requested Visits Authorized [id number] Canceled 03/13/2024 03/13/2025 1 1 Encounter Details Date Type Department Care Team (Latest Contact Info) Description 03/13/2024 1:00 PM CDT Office Visit Department of Ophthalmology in [place], [place] [address] [place] [phone] Prakash Graham M.D. [address] [place] [phone] Panuveitis Right (Primary Dx); Necrosis Retinal Acute Right Social History Tobacco Use Types Packs/Day Years Used Date Smoking Tobacco: Light Smoker Cigarettes 0.5 44.1 Started: 02/26/1980 Smokeless Tobacco: Never Comments:On again off again Alcohol Use Standard Drinks/Week Comments Yes 0 (1 standard drink = 0.6 oz pur e alcohol) [facility] Utilities Answer Date Recorded In the [...] Never 06/27/2020 How often do you attend bahai or jain serv ices? Never 06/27/2020 Do you belong to any clubs o r organizations such as bahai groups, unions, fraternal or athletic groups, or [...] hard 06/27/2020 [facility] [place] of Occupat ional Health - Occupational Stress [...] CDT Comprehensive Visit Preoperative Evaluation Center in [place], [place] [address] [place] [phone] Prakash Graham M.D. [address] [place] [phone] 04/14/2024 1:30 PM CDT Ancillary Procedure Department of Ophthalmology in [place], [place] [address] [place] [phone] Kenya Garza M.D. [address] [place] [phone] 04/14/2024 2:10 PM CDT Ancillary Procedure Department of Ophthalmology in [place], [place] [address] [place] [phone] Prakash Graham M.D. [address] [place] [phone] 04/14/2024 2:30 PM CDT Office Visit Department of Ophthalmology in [place], [place] [address] [place] [phone] Prakash Graham M.D. [address] [place] [phone] 04/16/2024 12:30 PM CDT Ancillary Procedure Department of Ophthalmology in [place], [place] [address] [place] [phone] Prakash Graham M.D. [address] [place] [phone] 04/16/2024 1:00 PM CDT Ancillary Procedure Department of Ophthalmology in [place], [place] [address] [place] [phone] Kenya Graza M.D. [address] [place] [phone] 04/16/2024 2:00 PM CDT Ancillary Procedure Department of Ophthalmology in [place], [place] [address] [place] [phone] Kenya Garza M.D. [address] [place] [phone] 04/16/2024 2:30 PM CDT Office Visit Department of Ophthalmology in [place], [place] [address] [place] [phone] Kenya Garza M.D. [address] [place] [phone] 04/27/2024 10:02 AM CDT Hospital Encounter [facility] [place] [address] [place] [phone] Prakash Graham M.D. [address] [place] [phone] 04/27/2024 10:02 AM CDT - 04/27/2024 11:45 AM CDT Surgery [facility] OR [address] [place] [phone] Prakash Graham M.D. [address] [place] [phone] VITRECTOMY - PARS PLANA 25 GAUGE / MEMBRANE PEEL / SILICONE OIL AND ALL ASSOCIATED PROCEDURES RIGHT EYE 04/28/2024 8:00 AM CDT Office Visit Department of Ophthalmology in [place], [place] [address] [place] [phone] Prakash Graham M.D. [address] [place] [phone] 05/05/2024 1:15 PM CDT Ancillary Procedure Department of Ophthalmology in [place], [place] [address] [place] [phone] Prakash Graham M.D. [address] [place] [phone] 05/05/2024 1:45 PM CDT Office Visit Department of Ophthalmology in [place], [place] [address] [place] [phone] Prakash Graham M.D. [address] [place] [phone] 06/02/2024 8:15 AM CDT Ancillary Procedure Department of Ophthalmology in [place], [place] [address] [place] [phone] Prakash Graham M.D. [address] [place] [phone] 06/02/2024 8:45 AM CDT Ancillary Procedure Department of Ophthalmology in [place], [place] [address] [place] [address] Prakash Graham M.D. [address] [place] [phone] 06/02/2024 9:00 AM CDT Office Visit Department of Ophthalmology in [place], [place] [address] [place] [address] Prakash Graham M.D. [address] [place] [phone] Scheduled Orders Name Type Priority Associated Diagnoses [...] Right documented in this encounter Care Teams Tiller Man Relationship Specialty Start Date End Date Elsewhere, Pcp PCP - General Internal Medicine 05/29/19 documented as of this encounter
--- OUTSIDE RECORDS SUMMARY | 2024-03-31 18:06 | XMS_ITS | Encounter Summary ---
Author Organization [facility] Address [address] [place] [address] Care Team Providers Care Photo Mask Processor Name Role Phone Elsewhere, Pcp Primary Care [...] drink = 0.6 oz pur e alcohol) [facility] Utilities Answer Date Recorded In the past 12 months has [employer] electric, gas, oil, or water company threatened [...] Never 06/27/2020 How often do you attend baptist or restorationism serv ices? Never 06/27/2020 Do you belong to any clubs o r organizations such as baptist groups, unions, fraternal or athletic groups, or [...] medical care, and heating? Somewhat hard 06/27/2020 [facility] - Occupational Stress Questionnaire Answer Date Recorded [...] your living situation today? I have a [facility] place to live 11/05/2023 Education Answer [...] CDT Comprehensive Visit Preoperative Evaluation Center in [place], [place] [address] [place] [phone] Prakash Graham M.D. [address] [place] [phone] 04/14/2024 1:30 PM CDT Ancillary Procedure Department of Ophthalmology in [address] [phone] Kenya Garza M.D. [address] [place] [phone] 04/14/2024 2:10 PM CDT Ancillary Procedure Department of Ophthalmology in [address] [phone] Prakash Graham M.D. [address] [place] [phone] 04/14/2024 2:30 PM CDT Office Visit Department of Ophthalmology in [address] [phone] Prakash Graham M.D. [address] [place] [phone] 04/16/2024 12:30 PM CDT Ancillary Procedure Department of Ophthalmology in [address] [phone] Prakash Graham M.D. [address] [place] [phone] 04/16/2024 1:00 PM CDT Ancillary Procedure Department of Ophthalmology in [place], [place] [address] [place] [phone] Kenya Garza M.D. [address] [place] [phone] 04/16/2024 2:00 PM CDT Ancillary Procedure Department of Ophthalmology in [place], [place] [address] [place] [phone] Kenya Garza M.D. [address] [place] [phone] 04/16/2024 2:30 PM CDT Office Visit Department of Ophthalmology in [place], [place] [address] [place] [phone] Kenya Garza M.D. [address] [place] [phone] 04/27/2024 10:02 AM CDT Hospital Encounter [facility] OR [facility] [place] [phone] Prakash Graham M.D. [address] [place] [phone] 04/27/2024 10:02 AM CDT - 04/27/2024 11:45 AM CDT Surgery [facility] OR [facility] [address] [place] [phone] Prakash Graham M.D. [address] [place] [phone] VITRECTOMY - PARS PLANA 25 GAUGE / MEMBRANE PEEL / SILICONE OIL AND ALL ASSOCIATED PROCEDURES RIGHT EYE 04/28/2024 8:00 AM CDT Office Visit Department of Ophthalmology in [place], [place] [address] [place] [phone] Prakash Graham M.D. [address] [place] [phone] 05/05/2024 1:15 PM CDT Ancillary Procedure Department of Ophthalmology in [place], [place] [address] [place] [phone] Prakash Graham M.D. [address] [place] [phone] 05/05/2024 1:45 PM CDT Office Visit Department of Ophthalmology in [place], [place] [address] [place] [phone] Prakash Graham M.D. [address] [place] [phone] 06/02/2024 8:15 AM CDT Ancillary Procedure Department of Ophthalmology in [place], [place] [address] [place] [phone] Prakash Graham M.D. [address] [place] [phone] 06/02/2024 8:45 AM CDT Ancillary Procedure Department of Ophthalmology in [address] [phone] Prakash Graham M.D. [address] [place] [phone] 06/02/2024 9:00 AM CDT Office Visit Department of Ophthalmology in [address] [phone] Prakash Graham M.D. [address] [place] [phone] Scheduled Procedures Name Priority Associated Diagnoses Date/Ti [...] on filedocumented in this encounter Care Teams Photo Mask Processor Relationship Specialty Start Date End Date Elsewhere, Pcp PCP - General Internal Medicine 05/29/19 documented as of this encounter
--- OUTSIDE RECORDS SUMMARY | 2024-03-31 18:06 | XMS_ITS | Encounter Summary ---
Author Organization [facility] Address [address] [place] [address] Care Team Providers Care Pattern Drafter Name Role Phone Elsewhere, Pcp Primary Care Provider Unavailabl e Reason for Referral * Outpatient (Routine) - Closed Specialty Diagnoses / Procedures Referred By Apolinar lopez Referred To Contact Procedures Cyclophotocoagulation, Transscleral - OD - Right Eye Prakash Graham M.D. 200 [place] [address] [facility] Referral ID Status Reason Start Date Expiration Date Visits Re quested Visits Authorized [id number] Closed 03/13/2024 03/13/2025 1 1 Reason for Visit * Outpatient (Routine) - Canceled Specialty Diagnoses / Procedures Referred By Apolinar lopez Referred To Contact Diagnoses Panuveitis Right Necrosis Retinal Acute Right Procedures Intravitreal Injection, Pharmacologic Agent - OD - Right Eye Prakash Graham M.D. 200 [place] [address] [facility] Referral ID Status Reason Start Date Expiration Date V isits Requested Visits Authorized [id number] Canceled 03/13/2024 03/13/2025 1 1 Encounter Details Date Type Department Care Team (Latest Contact Info) Description 03/13/2024 2:00 PM CDT Procedure visit Department of Ophthalmology in [place], [place] [address] [place] [phone] Prakash Graham M.D. 200 [place] [address] Primary Hypotony Right Eye (Primary Dx); Panuveitis Right; Necrosis Retinal Acute Right Social History Tobacco Use Types Packs/Day Years Used Date Smoking Tobacco: Light Smoker Cigarettes 0.5 44.1 Started: 02/26/1980 Smokeless Tobacco: Never Comments:On again off again Alcohol Use Standard Drinks/Week Comments Yes 0 (1 standard drink = 0.6 oz pur e alcohol) [facility] Utilities Answer Date Recorded In [...] Never 06/27/2020 How often do you attend mosque or baptist serv ices? Never 06/27/2020 Do you belong to any clubs o r organizations such as mosque groups, unions, fraternal or athletic groups, or [...] heating? Somewhat hard 06/27/2020 [facility] of Occupat ional Health - Occupational Stress [...] your living situation today? I have a [facility] place to live 11/05/2023 Education Answer [...] CDT Comprehensive Visit Preoperative Evaluation Center in [place], [place] [address] [place] [phone] Prakash Graham M.D. [address] [place] [phone] 04/14/2024 1:30 PM CDT Ancillary Procedure Department of Ophthalmology in [place], [place] [address] [place] [phone] Kenya Garza M.D. [address] [place] [phone] 04/14/2024 2:10 PM CDT Ancillary Procedure Department of Ophthalmology in [place], [place] [address] [place] [phone] Prakash Graham M.D. [address] [place] [phone] 04/14/2024 2:30 PM CDT Office Visit Department of Ophthalmology in [address] [phone] Prakash Graham M.D. [address] [place] [phone] 04/16/2024 12:30 PM CDT Ancillary Procedure Department of Ophthalmology in [address] [phone] Prakash Graham M.D. [address] [place] [phone] 04/16/2024 1:00 PM CDT Ancillary Procedure Department of Ophthalmology in [address] [phone] Kenya Garza M.D. [address] [place] [phone] 04/16/2024 2:00 PM CDT Ancillary Procedure Department of Ophthalmology in [place], [place] [address] [place] [phone] Kenya Garza M.D. [address] [place] [phone] 04/16/2024 2:30 PM CDT Office Visit Department of Ophthalmology in [place], [place] [address] [place] [phone] Kenya Garza M.D. [address] [place] [phone] 04/27/2024 10:02 AM CDT Hospital Encounter [facility] OR [facility] [place] [phone] Prakash Graham M.D. [address] [place] [phone] 04/27/2024 10:02 AM CDT - 04/27/2024 11:[address] [facility] OR [address] [place] [phone] Prakash Graham M.D. [address] [place] [phone] VITRECTOMY - PARS PLANA 25 GAUGE / MEMBRANE PEEL / SILICONE OIL AND ALL ASSOCIATED PROCEDURES RIGHT EYE 04/28/2024 8:00 AM CDT Office Visit Department of Ophthalmology in [place], [place] [address] [place] [phone] Prakash Graham M.D. [address] [place] [phone] 05/05/2024 1:15 PM CDT Ancillary Procedure Department of Ophthalmology in [place], [place] [address] [place] [phone] Prakash Graham M.D. [address] [place] [phone] 05/05/2024 1:45 PM CDT Office Visit Department of Ophthalmology in [place], [place] [address] [place] [phone] Prakash Graham M.D. [address] [place] [phone] 06/02/2024 8:15 AM CDT Ancillary Procedure Department of Ophthalmology in [place], [place] [address] [place] [phone] Prakash Graham M.D. [address] [place] [phone] 06/02/2024 8:45 AM CDT Ancillary Procedure Department of Ophthalmology in [place], [place] [address] [place] [phone] Prakash Graham M.D. [address] [place] [phone] 06/02/2024 9:00 AM CDT Office Visit Department of Ophthalmology in [place], [place] [address] [place] [phone] Prakash Graham M.D. 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
--- OUTSIDE RECORDS SUMMARY | 2024-03-31 18:06 | XMS_ITS | Encounter Summary ---
Author Organization [facility] Address [address] [place] [address] Care Team Providers Care Hand Iii Cutter Name Role Phone Elsewhere, Pcp Primary Care Provider Unavailabl e Reason for Referral * Outpatient (Routine) - Authorized Specialty Diagnoses / Procedures Referred By Contmuriel t Referred To Contact Ophthalmology Prakash Graham M.D. [address] [place] [address] [facility] Referral ID Status Reason Start Date Expiration Date V isits Requested Visits Authorized [id number] Authorized 03/16/2024 09/15/2025 1 1 Encounter Details Date Type Department Care Team (Late st Contact Info) Description 03/16/2024 Orders Only Department of Ophthalmology in [place], [place] [address] [place] [phone] Jean Claude Newsome, C.O.A. Panuveitis Right (Primary Dx); Necrosis Retinal Acute Right Social History Tobacco Use Types Packs/Day Years Used Date Smoking Tobacco: Light Smoker Cigarettes 0.5 44.1 Started: 02/26/1980 Smokeless Tobacco: Never Comments:On again off again Alcohol Use Standard Drinks/Week Comments Yes 0 (1 standard drink = 0.6 oz pur e alcohol) [facility] Utilities Answer Date Recorded In the [...] How often do you attend sikhism or sabianist serv ices? Never 06/27/2020 Do [...] heating? Somewhat hard 06/27/2020 [facility] [place] of Occupat ional Health - Occupational Stress [...] your living situation today? I [facility] a [facility] place to live 11/05/2023 Education Answer Date [...] CDT Comprehensive Visit Preoperative Evaluation Center in [place], [place] [address] [place] [address] Prakash Graham M.D. [address] [place] [phone] 04/14/2024 1:30 PM CDT Ancillary Procedure Department of Ophthalmology in [place], [place] [address] [place] [phone] Kenya Garza M.D. [address] [place] [phone] 04/14/2024 2:10 PM CDT Ancillary Procedure Department of Ophthalmology in [place], [place] [address] [place] [phone] Prakash Graham M.D. [address] [place] [phone] 04/14/2024 2:30 PM CDT Office Visit Department of Ophthalmology in [place], [place] [address] [place] [phone] Prakash Graham M.D. [address] [place] [phone] 04/16/2024 12:30 PM CDT Ancillary Procedure Department of Ophthalmology in [place], [place] [address] [place] [phone] Prakash Graham M.D. [address] [place] [phone] 04/16/2024 1:00 PM CDT Ancillary Procedure Department of Ophthalmology in [place], [place] [address] [place] [phone] Kenya Garza M.D. [address] [place] [phone] 04/16/2024 2:00 PM CDT Ancillary Procedure Department of Ophthalmology in [address] [phone] Kenya Garza M.D. [address] [place] [phone] 04/16/2024 2:30 PM CDT Office Visit Department of Ophthalmology in [place], [place] [address] [place] [phone] Kenya Garza M.D. [address] [place] [phone] 04/27/2024 10:02 AM CDT Hospital Encounter [facility] [address] [place] [phone] Prakash Graham M.D. [address] [place] [phone] 04/27/2024 10:02 AM CDT - 04/27/2024 11:45 AM CDT Surgery [facility] OR [address] [place] [phone] Prakash Graham M.D. [address] [place] [phone] VITRECTOMY - PARS PLANA 25 GAUGE / MEMBRANE PEEL / SILICONE OIL AND ALL ASSOCIATED PROCEDURES RIGHT EYE 04/28/2024 8:00 AM CDT Office Visit Department of Ophthalmology in [place], [place] [address] [place] [phone] Prakash Graham M.D. [address] [place] [phone] 05/05/2024 1:15 PM CDT Ancillary Procedure Department of Ophthalmology in [place], [place] [address] [place] [phone] Prakash Graham M.D. [address] [place] [phone] 05/05/2024 1:45 PM CDT Office Visit Department of Ophthalmology in [place], [place] [address] [place] [phone] Prakash Graham M.D. [address] [place] [phone] 06/02/2024 8:15 AM CDT Ancillary Procedure Department of Ophthalmology in [place], [place] [address] [place] [phone] Prakash Graham M.D. [address] [place] [phone] 06/02/2024 8:45 AM CDT Ancillary Procedure Department of Ophthalmology in [place], [place] [address] [place] [address] Prakash Graham M.D. [address] [place] [address] 06/02/2024 9:00 AM CDT Office Visit Department of Ophthalmology in [place], [place] [address] [place] [address] Prakash Graham M.D. [address] [place] [address] Scheduled Orders Name Type Priority Associated Diagnoses [...] Right documented in this encounter Care Teams Hand Iii Cutter Relationship Specialty Start Date End Date Elsewhere, Pcp PCP - General Internal Medicine 05/29/19 documented as of this encounter
--- OUTSIDE RECORDS SUMMARY | 2024-03-31 18:06 | XMS_ITS | Encounter Summary ---
Author Organization [facility] Address [address] [place] [address] Care Team Providers Care Skiver Welt End Name Role Phone Elsewhere, Pcp Primary Care [...] = 0.6 oz pur e alcohol) [facility] Utilities Answer Date Recorded In the past 12 months has th [employer] electric, gas, oil, or water company threatened [...] How often do you attend synagogue or zoroastrianism serv ices? Never 06/27/2020 Do you belong [...] hard 06/27/2020 [facility] of Occupat ional [facility] - Occupational Stress Questionnaire Answer Date [...] living situation today? I have a [facility] place to live 11/05/2023 Education Answer Date [...] CDT Comprehensive Visit Preoperative Evaluation Center in [place], [place] [address] [place] [phone] Prakash Graham M.D. [address] [place] [phone] 04/14/2024 1:30 PM CDT Ancillary Procedure Department of Ophthalmology in [place], [place] [address] [place] [phone] Kenya Garza M.D. [address] [place] [phone] 04/14/2024 2:10 PM CDT Ancillary Procedure Department of Ophthalmology in [place], [place] [address] [place] [phone] Prakash Graham M.D. [address] [place] [phone] 04/14/2024 2:30 PM CDT Office Visit Department of Ophthalmology in [address] [phone] Prakash Graham M.D. [address] [place] [phone] 04/16/2024 12:30 PM CDT Ancillary Procedure Department of Ophthalmology in [address] [phone] Prakash Graham M.D. [address] [place] [phone] 04/16/2024 1:00 PM CDT Ancillary Procedure Department of Ophthalmology in [place], [place] [address] [place] [phone] Kenya Garza M.D. [address] [place] [phone] 04/16/2024 2:00 PM CDT Ancillary Procedure Department of Ophthalmology in [place], [place] [address] [place] [phone] Kenya Garza M.D. [address] [place] [phone] 04/16/2024 2:30 PM CDT Office Visit Department of Ophthalmology in [place], [place] [address] [place] [phone] Kenya Garza M.D. [address] [place] [phone] 04/27/2024 10:02 AM CDT Hospital Encounter [facility] OR [facility] [place] [phone] Prakash Graham M.D. [address] [place] [phone] 04/27/2024 10:02 AM CDT - 04/27/2024 11:45 AM CDT Surgery [facility] OR [address] [place] [phone] Prakash Graham M.D. [address] [place] [phone] VITRECTOMY - PARS PLANA 25 GAUGE / MEMBRANE PEEL / SILICONE OIL AND ALL ASSOCIATED PROCEDURES RIGHT EYE 04/28/2024 8:00 AM CDT Office Visit Department of Ophthalmology in [place], [place] [address] [place] [phone] Prakash Graham M.D. [address] [place] [phone] 05/05/2024 1:15 PM CDT Ancillary Procedure Department of Ophthalmology in [place], [place] [address] [place] [phone] Prakash Graham M.D. [address] [place] [phone] 05/05/2024 1:45 PM CDT Office Visit Department of Ophthalmology in [place], [place] [address] [place] [phone] Prakash Graham M.D. [address] [place] [phone] 06/02/2024 8:15 AM CDT Ancillary Procedure Department of Ophthalmology in [place], [place] [address] [place] [phone] Prakash Graham M.D. [address] [place] [phone] 06/02/2024 8:45 AM CDT Ancillary Procedure Department of Ophthalmology in [address] [phone] Prakash Graham M.D. [address] [place] [phone] 06/02/2024 9:00 AM CDT Office Visit Department of Ophthalmology in [place], [place] [address] [place] [phone] Prakash Graham M.D. [address] [place] [phone] Scheduled Procedures Name Priority Associated Diagnoses Date/Ti me VITRECTOMY - PARS PLANA GAUGE Panuveitis Right Necrosis Retinal Acute Right 04/27/2024 10:02 AM CDT documented as of this encounter Visit Diagnoses Not on filedocumented in this encounter Care Teams Skiver Welt End Relationship Specialty Start Date End Date Elsewhere, Pcp PCP - General Internal Medicine 05/29/19 documented as of this encounter
--- OUTSIDE RECORDS SUMMARY | 2024-03-31 18:06 | XMS_ITS | Encounter Summary ---
Author Organization [facility] Address [address] [place] [address] Care Team Providers Care Grocery Specialist Name Role Phone Elsewhere, Pcp Primary Care Provider Unavailabl e Encounter Details Date Type Department Care Team (Late st Contact Info) Description 03/16/2024 Orders Only Department of Ophthalmology in [place], [place] [address] [place] [address] Shahnaz Amato, C.O.A. [address] [place] [address] Necrosis Retinal Acute Right (Primary Dx) Social History Tobacco Use Types Packs/Day Years Used Date Smoking Tobacco: Light Smoker Cigarettes 0.5 44.1 Started: 02/26/1980 Smokeless Tobacco: Never Comments:On again off again Alcohol Use Standard Drinks/Week Comments Yes 0 (1 standard drink = 0.6 oz pur e alcohol) [facility] Utilities Answer Date Recorded In [...] Never 06/27/2020 How often do you attend religion or hoahaoism serv ices? Never 06/27/2020 Do you belong to any clubs o r organizations such as religion groups, unions, fraternal or athletic groups, or [...] medical care, and heating? Somewhat hard 06/27/2020 [facility] of Occupat ional Health - Occupational Stress [...] your living situation today? I have a [facility] place to live 11/05/2023 Education [...] CDT Comprehensive Visit Preoperative Evaluation Center in [place], [place] [address] [place] [address] Prakash Graham M.D. [address] [place] [phone] 04/14/2024 1:30 PM CDT Ancillary Procedure Department of Ophthalmology in [place], [place] [address] [place] [phone] Kenya Garza M.D. [address] [place] [phone] 04/14/2024 2:10 PM CDT Ancillary Procedure Department of Ophthalmology in [place], [place] [address] [place] [phone] Prakash Graham M.D. [address] [place] [phone] 04/14/2024 2:30 PM CDT Office Visit Department of Ophthalmology in [place], [place] [address] [place] [phone] Prakash Graham M.D. [address] [place] [phone] 04/16/2024 12:30 PM CDT Ancillary Procedure Department of Ophthalmology in [place], [place] [address] [place] [phone] Prakash Graham M.D. [address] [place] [phone] 04/16/2024 1:00 PM CDT Ancillary Procedure Department of Ophthalmology in [place], [place] [address] [place] [phone] Kenya Garza M.D. [address] [place] [phone] 04/16/2024 2:00 PM CDT Ancillary Procedure Department of Ophthalmology in [place], [place] [address] [place] [phone] Kenya Garza M.D. [address] [place] [phone] 04/16/2024 2:30 PM CDT Office Visit Department of Ophthalmology in [place], [place] [address] [place] [phone] Kenya Garza M.D. [address] [place] [phone] 04/27/2024 10:02 AM CDT Hospital Encounter [facility] OR [address] [place] [phone] Prakash Graham M.D. [address] [place] [phone] 04/27/2024 10:02 AM CDT - 04/27/2024 11:45 AM CDT Surgery [facility] OR [address] [place] [phone] Prakash Graham M.D. [address] [place] [phone] VITRECTOMY - PARS PLANA 25 GAUGE / MEMBRANE PEEL / SILICONE OIL AND ALL ASSOCIATED PROCEDURES RIGHT EYE 04/28/2024 8:00 AM CDT Office Visit Department of Ophthalmology in [place], [place] [address] [place] [phone] Prakash Graham M.D. [address] [place] [phone] 05/05/2024 1:15 PM CDT Ancillary Procedure Department of Ophthalmology in [place], [place] [address] [place] [phone] Prakash Graham M.D. [address] [place] [phone] 05/05/2024 1:45 PM CDT Office Visit Department of Ophthalmology in [place], [place] [address] [place] [phone] Prakash Graham M.D. [address] [place] [phone] 06/02/2024 8:15 AM CDT Ancillary Procedure Department of Ophthalmology in [place], [place] [address] [place] [phone] Prakash Graham M.D. [address] [place] [phone] 06/02/2024 8:45 AM CDT Ancillary Procedure Department of Ophthalmology in [place], [place] [address] [place] [phone] Prakash Graham M.D. [address] [place] [phone] 06/02/2024 9:00 AM CDT Office Visit Department of Ophthalmology in [place], [place] [address] [place] [phone] Prakash Graham M.D. [address] [place] [address] Scheduled Orders Name Type Priority Associated Diagnoses [...] Right documented in this encounter Care Teams Grocery Specialist Relationship Specialty Start Date End Date Elsewhere, Pcp PCP - General Internal Medicine 05/29/19 documented as of this encounter
--- OUTSIDE RECORDS SUMMARY | 2024-03-31 18:06 | XMS_ITS | Encounter Summary ---
Author Organization [facility] Address [address] [place] [address] Care Team Providers Care Fitter Mechanic Name Role Phone Elsewhere, Pcp Primary Care Provider Unavailabl e Encounter Details Date Type Department Care Team (Late st Contact Info) Description 03/14/2024 Orders Only Department of Ophthalmology in [place], [place] [address] [place] [address] Raffi Boyd M.D. [address] [place] [address] Social History Tobacco Use Types Packs/Day Years Used Date Smoking Tobacco: Light Smoker Cigarettes 0.5 44.1 Started: 02/26/1980 Smokeless Tobacco: Never Comments:On again off again Alcohol Use Standard Drinks/Week Comments Yes 0 (1 standard drink = 0.6 oz pur e alcohol) [facility] Utilities Answer Date Recorded In the past 12 months has [employer], gas, oil, or water company threatened to [...] Never 06/27/2020 How often do you attend alevism or rastafarian serv ices? Never 06/27/2020 Do you belong to any clubs o r organizations such as alevism groups, unions, fraternal or athletic groups, or [...] medical care, and heating? Somewhat hard 06/27/2020 [facility] of Occupat ional Health - Occupational [...] your living situation today? I have a [facility] place to live 11/05/2023 Education [...] CDT Comprehensive Visit Preoperative Evaluation Center in [place], [place] [address] [place] [address] Prakash Graham M.D. [address] [place] [phone] 04/14/2024 1:30 PM CDT Ancillary Procedure Department of Ophthalmology in [place], [place] [address] [place] [phone] Kenya Garza M.D. [address] [place] [phone] 04/14/2024 2:10 PM CDT Ancillary Procedure Department of Ophthalmology in [place], [place] [address] [place] [phone] Prakash Graham M.D. [address] [place] [phone] 04/14/2024 2:30 PM CDT Office Visit Department of Ophthalmology in [place], [place] [address] [place] [phone] Prakash Graham M.D. [address] [place] [phone] 04/16/2024 12:30 PM CDT Ancillary Procedure Department of Ophthalmology in [place], [place] [address] [place] [phone] Prakash Graham M.D. [address] [place] [phone] 04/16/2024 1:00 PM CDT Ancillary Procedure Department of Ophthalmology in [place], [place] [address] [place] [phone] Kenya Garza M.D. [address] [place] [phone] 04/16/2024 2:00 PM CDT Ancillary Procedure Department of Ophthalmology in [place], [place] [address] [place] [phone] Kenya Garza M.D. [address] [place] [phone] 04/16/2024 2:30 PM CDT Office Visit Department of Ophthalmology in [place], [place] [address] [place] [phone] Kenya Garza M.D. [address] [place] [phone] 04/27/2024 10:02 AM CDT Hospital Encounter [facility] [address] [place] [phone] Prakash Graham M.D. [address] [place] [phone] 04/27/2024 10:02 AM CDT - 04/27/2024 11:45 AM CDT Surgery [facility] OR [address] [place] [phone] Prakash Graham M.D. [address] [place] [phone] VITRECTOMY - PARS PLANA 25 GAUGE / MEMBRANE PEEL / SILICONE OIL AND ALL ASSOCIATED PROCEDURES RIGHT EYE 04/28/2024 8:00 AM CDT Office Visit Department of Ophthalmology in [place], [place] [address] [place] [phone] Prakash Graham M.D. [address] [place] [phone] 05/05/2024 1:15 PM CDT Ancillary Procedure Department of Ophthalmology in [place], [place] [address] [place] [phone] Prakash Graham M.D. [address] [place] [phone] 05/05/2024 1:45 PM CDT Office Visit Department of Ophthalmology in [place], [place] [address] [place] [phone] Prakash Graham M.D. [address] [place] [phone] 06/02/2024 8:15 AM CDT Ancillary Procedure Department of Ophthalmology in [place], [place] [address] [place] [phone] Prakash Graham M.D. [address] [place] [phone] 06/02/2024 8:45 AM CDT Ancillary Procedure Department of Ophthalmology in [place], [place] [address] [place] [phone] Prakash Graham M.D. [address] [place] [phone] 06/02/2024 9:00 AM CDT Office Visit Department of Ophthalmology in [place], [place] [address] [place] [phone] Prakash Graham M.D. [address] [place] [address] Scheduled Procedures Name Priority Associated Diagnoses Date/Ti me VITRECTOMY - PARS PLANA 25 GAUGE Panuveitis Right Necrosis Retinal Acute Right 04/27/2024 10:02 AM CDT documented as of this encounter Visit Diagnoses Not on filedocumented in this encounter Care Teams Fitter Mechanic Relationship Specialty Start Date End Date Elsewhere, Pcp PCP - General Internal Medicine 05/29/19 documented as of this encounter
--- OUTSIDE RECORDS SUMMARY | 2024-03-31 18:06 | XMS_ITS ---
Author Organization [facility] Address [address] [place] [address] Care Team Providers Care Ticketing Agent Name Role Phone Unavailable Unavailable Unavailable Surgery Details Not on file Complications Check Surgery Details section. Procedure Estimated Blood Loss Check Surgery Details section. Procedure Findings Check Surgery Details section. Procedure Specimens Taken Check Surgery Details section.
--- OUTSIDE RECORDS SUMMARY | 2024-03-31 18:06 | XMS_ITS | Referral Summary ---
Author Organization [facility] Address [address] [place] [address] Care Team Providers Care Back Shoe Cutter Name Role Phone Elsewhere, Pcp Primary Care Provider Unavailabl e Source Comments Patient records contain information from all sites at [facility]. For routine questions regarding patient records, call [phone] during business hours, M-F 8:00 AM - 5:00 PM Central Time. Record requests for emergency care only can be directed to [phone] at any time.[facility] Encounters Date Type Department Care Team Description 03/16/2024 Orders Only Department of Ophthalmology in [place], [place] [address] [place] [address] Shahnaz Amato, C.O.A. Necrosis Retinal Acute Right (Primary Dx) 03/16/2024 Orders Only Department of Ophthalmology in [place], [place] [address] [place] [address] Jean Claude Newsome, C.O.A. Panuveitis Right (Primary Dx); Necrosis Retinal Acute Right 03/14/2024 Orders Only Department of Ophthalmology in [place], [place] [address] [place] [address] Raffi Boyd M.D. 03/13/2024 2:00 PM CDT Procedure visit Department of Ophthalmology in [place], [place] [address] [place] [address] Prakash Graham M.D. Primary Hypotony Right Eye (Primary Dx); Panuveitis Right; Necrosis Retinal Acute Right 03/13/2024 1:00 PM CDT Office Visit Department of Ophthalmology in [place], [place] [address] [place] [phone] Prakash Graham M.D. Panuveitis Right (Primary Dx); Necrosis Retinal Acute Right 03/13/2024 Orders Only Department of Ophthalmology in [address] [phone] Jean Claude Newsome C.O.A. Necrosis Retinal Acute Right (Primary Dx) 03/13/2024 12:10 AM CDT Ancillary Procedure Department of Ophthalmology 03/13/2024 12:05 AM CDT Ancillary Procedure Department of Ophthalmology 03/13/2024 Ancillary Procedure Department of Ophthalmology 03/13/2024 12:00 PM CDT Ancillary Procedure Department of Ophthalmology in [place], [place] [address] [place] [phone] Kenya Garza M.D. Panuveitis Right; Necrosis Retinal Acute Right 03/13/2024 11:30 AM CDT Office Visit Department of Ophthalmology in [address] [phone] Kenya Garza M.D. Necrosis Retinal Acute Right (Primary Dx); Panuveitis Right 03/13/2024 8:00 AM CDT Ancillary Procedure Department of Ophthalmology in [address] [phone] Kenya Garza M.D. Panuveitis Right; Necrosis Retinal Acute Right 03/11/2024 Clinical Communication Department of Ophthalmology in [address] [phone] Kenya Garza M.D. 03/10/2024 Clinical Communication Department of Ophthalmology in [place], [place] [address] [place] [phone] Kenya Garza M.D. 02/25/2024 4:30 PM CDT Telemedicine Department of Neurology in [address] [phone] Piter Baez M.D. Posterior Reversible Encephalopathy Syndrome (Primary Dx) 02/20/2024 12:10 AM CDT Ancillary Procedure Department of Ophthalmology 02/20/2024 12:05 AM CDT Ancillary Procedure Department of Ophthalmology 02/20/2024 Ancillary Procedure Department of Ophthalmology 02/20/2024 3:05 PM CDT - 02/20/2024 11:59 PM CDT Hospital Encounter Department of Radiology, [facility] in [place], [place] [address] [place] [phone] Piter Baez M.D. Posterior Reversible Encephalopathy Syndrome Discharge Disposition: Home or Self Care 02/20/2024 1:00 PM CDT Comprehensive Visit Department of Neurology in [address] [phone] Piter Baez M.D. Posterior Reversible Encephalopathy Syndrome 02/20/2024 11:15 AM CDT Office Visit Department of Ophthalmology in [address] [phone] Kenya Garza M.D. Panuveitis Right (Primary Dx); Necrosis Retinal Acute Right 02/20/2024 10:00 AM CDT Ancillary Procedure Department of Ophthalmology in [address] [phone] Kenya Garza M.D. Panuveitis Right; Necrosis Retinal Acute Right 02/20/2024 9:50 AM CDT Ancillary Procedure Department of Ophthalmology in [address] [phone] Kenya Garza M.D. Panuveitis Right; Necrosis Retinal Acute Right 01/31/2024 Clinical Communication Department of Neurology in [address] [phone] Piter Baez M.D. Pre-visit Testing Orders 01/23/2024 12:00 PM CDT Office Visit Department of Ophthalmology in [address] [phone] Kenya Garza M.D. Panuveitis Right (Primary Dx); Necrosis Retinal Acute Right 01/20/[address] [address] Katerine Bashir M.D. Posterior Reversible Encephalopathy Syndrome (Primary Dx) 01/10/2024 Clinical Communication Department of Ophthalmology in [place], [place] [address] [place] [address] Kenya Garza M.D. Outside hospitalization and medications 01/01/2024 Ancillary Procedure Department of Ophthalmology 01/01/2024 12:30 PM AGING ROOM OPERATOR Ancillary Procedure Department of Ophthalmology in [place], [place] [address] [place] [address] Kenya Garza M.D. Panuveitis Right 01/01/2024 12:45 PM AGING ROOM OPERATOR Office Visit Department of Ophthalmology in [place], [place] [address] [place] [address] Kenya Garza M.D. Necrosis Retinal Acute Right (Primary Dx); Panuveitis Right from Last 3 Months Allergies Active Allergy Reactions Criticality Noted Date Comments Aller Xt-[place] Pollen-[place] Blisters,Itching,Rash High 06/21/2020 Medications Medication Sig Dispensed [...] drink = 0.6 oz pur e alcohol) [facility] Utilities Answer Date Recorded In [...] Never 06/27/2020 How often do you attend scientologist or voodoo serv ices? Never 06/27/2020 Do you belong to any clubs o r organizations such as scientologist groups, unions, fraternal or athletic groups, or [...] medical care, and heating? Somewhat hard 06/27/2020 [facility] [place] of Occupat ional Health - Occupational Stress [...] your living situation today? I have a [facility] place to live 11/05/2023 Education Answer [...] CDT Comprehensive Visit Preoperative Evaluation Center in [place], [place] [address] [place] [phone] Prakash Graham M.D. [address] [place] [phone] 04/14/2024 1:30 PM CDT Ancillary Procedure Department of Ophthalmology in [place], [place] [address] [place] [phone] Kenya Garza M.D. [address] [place] [phone] 04/14/2024 2:10 PM CDT Ancillary Procedure Department of Ophthalmology in [place], [place] [address] [place] [phone] Prakash Graham M.D. [address] [place] [phone] 04/14/2024 2:30 PM CDT Office Visit Department of Ophthalmology in [address] [phone] Prakash Graham M.D. [address] [place] [phone] 04/16/2024 12:30 PM CDT Ancillary Procedure Department of Ophthalmology in [address] [phone] Prakash Graham M.D. [address] [place] [phone] 04/16/2024 1:00 PM CDT Ancillary Procedure Department of Ophthalmology in [address] [phone] Kenya Garza M.D. [address] [place] [phone] 04/16/2024 2:00 PM CDT Ancillary Procedure Department of Ophthalmology in [place], [place] [address] [place] [phone] Kenya Garza M.D. [address] [place] [phone] 04/16/2024 2:30 PM CDT Office Visit Department of Ophthalmology in [place], [place] [address] [place] [phone] Kenya Garza M.D. [address] [place] [phone] 04/27/2024 10:02 AM CDT Hospital Encounter [facility] [address] [place] [phone] Prakash Graham M.D. [address] [place] [phone] 04/27/2024 10:02 AM CDT - 04/27/2024 11:45 AM CDT Surgery [facility] OR [address] [place] [phone] Prakash Graham M.D. [address] [place] [phone] VITRECTOMY - PARS PLANA 25 GAUGE / MEMBRANE PEEL / SILICONE OIL AND ALL ASSOCIATED PROCEDURES RIGHT EYE 04/28/2024 8:00 AM CDT Office Visit Department of Ophthalmology in [place], [place] [address] [place] [phone] Prakash Graham M.D. [address] [place] [phone] 05/05/2024 1:15 PM CDT Ancillary Procedure Department of Ophthalmology in [place], [place] [address] [place] [phone] Prakash Graham M.D. [address] [place] [phone] 05/05/2024 1:45 PM CDT Office Visit Department of Ophthalmology in [place], [place] [address] [place] [phone] Prakash Graham M.D. [address] [place] [phone] 06/02/2024 8:15 AM CDT Ancillary Procedure Department of Ophthalmology in [place], [place] [address] [place] [phone] Prakash Graham M.D. [address] [place] [phone] 06/02/2024 8:45 AM CDT Ancillary Procedure Department of Ophthalmology in [place], [place] [address] [place] [phone] Praaksh Graham M.D. [address] [place] [phone] 06/02/2024 9:00 AM CDT Office Visit Department of Ophthalmology in [place], [place] [address] [place] [phone] Prakash Graham M.D. [address] [place] [phone] Scheduled Procedures Name Priority Associated Diagnoses Date/Ti [...] - BOTH EYES Routine 01/01/2024 12:34 PM AGING ROOM OPERATOR Panuveitis Right OPHTHALMOLOGY IMAGE EXAM Routine 01/01/2024 12:00 AM AGING ROOM OPERATOR CT CHEST WITH IV CONTRAST RAD [...] defined workflow. ?? Provider Not In System [facility] NM PROCEDURES Performing Organization Address [facility] Co de Phone Number IIMS NA * Cyclophotocoagulation, Transscleral - OD - [...] OPHTH CLINIC PROCED URES Performing Organization Address [facility] Co de Phone Number OPHTHALMOLGY NON-IMAGING [...] Garza M.D. OPH ULTRASOUND Performing Organization Address [facility] de Phone Number OPHTHALMOL NON-IMAGING ORDERS * B-Scan Ultrasound - OD - Right Eye (03/13/2024 9:45 AM CDT) Narrative OPHTHALMOL NON-IMAGING ORDERS - 03/13/2024 10:21 AM CDT 03/13/2024 B-Scan Right Eye: dense vitreous opacities, probable posterior vitreous detachment, vitreous membranes possibly extending to disc, detachments vs opacities - cannot rule out choroidal detachment, thickened fundus appearance. UBM Right Eye: minimal opacities in anterior chamber, ciliary body detachment noted, possible ciliochoroidal effusion. JULIAN Kenya Garza M.D. [facility] ULTRASOUND Performing Organization Address [facility] de Phone Number OPHTHALMOL NON-IMAGING ORDERS * Eyes US-Eye C-[id number] Image Exam (03/13/2024 12:10 AM CDT) Only [...] NG PROCEDURES Performing Organization Address [facility] Co de Phone Number IIMS NA [...] PRES. Piter Baez M.D. [facility] MRI PROCEDURES * Optical Coherence Tomography - [...] OPHTH TOMOGRAPHY Performing Organization Address [facility] Co de Phone Number OPHTHALMOLOGY IMAGING [...] OPHTH ULTRASOUND Performing Organization Address [facility] Co de Phone Number OPHTHALMOLGY NON-IMAGING [...] PROCEDURE S Performing Organization Address [facility] Co de Phone Number IIMS NA * Optical Coherence Tomography - Macula/Retina - OU - Both Eyes (01/01/2024 12:34 PM AGING ROOM OPERATOR) CMT L Microns 247 um OPH THALMOLOGY IMAGING EXAM Narrative OPHTHALMOLOGY IMAGING EXAM - 01/01/2024 12:45 PM AGING ROOM OPERATOR Right Eye Reliability was good. OCT [...] Recently Relevant to Health Maintenance Care Teams Back Shoe Cutter Relationship Specialty Start Date End Date Elsewhere, Pcp PCP - General Internal Medicine 05/29/19
--- OUTSIDE RECORDS SUMMARY | 2024-03-31 18:07 | XMS_ITS | Encounter Summary ---
Author Organization [facility] Address [address] [place] [address] Care Team Providers Care Accounting Lecturer Name Role Phone Elsewhere, Pcp Primary Care Provider Unavailabl e Encounter Details Date Type Department Care Team (Latest Contact Info) Description 03/11/2024 Clinical Communication Department of Ophthalmology in [place], [place] [address] [place] [address] Kenya Garza M.D. [address] [place] [address] Social History Tobacco Use Types Packs/Day Years Used Date Smoking Tobacco: Light Smoker Cigarettes 0.5 44.1 Started: 02/26/1980 Smokeless Tobacco: Never Comments:On again off again Alcohol Use Standard Drinks/Week Comments Yes 0 (1 standard drink = 0.6 oz pur e alcohol) [facility] Utilities Answer Date Recorded In the past 12 months has [employer], gas, oil, or water company threatened to [...] How often do you attend amish or taoism serv ices? Never 06/27/2020 Do [...] and heating? Somewhat hard 06/27/2020 [facility] of Occupat ional Health - Occupational Stress [...] CDT Comprehensive Visit Preoperative Evaluation Center in [place], [place] [address] [place] [address] Prakash Graham M.D. [address] [place] [phone] 04/14/2024 1:30 PM CDT Ancillary Procedure Department of Ophthalmology in [place], [place] [address] [place] [phone] Kenya Garza M.D. [address] [place] [phone] 04/14/2024 2:10 PM CDT Ancillary Procedure Department of Ophthalmology in [place], [place] [address] [place] [phone] Prakash Graham M.D. [address] [place] [phone] 04/14/2024 2:30 PM CDT Office Visit Department of Ophthalmology in [place], [place] [address] [place] [phone] Prakash Graham M.D. [address] [place] [phone] 04/16/2024 12:30 PM CDT Ancillary Procedure Department of Ophthalmology in [place], [place] [address] [place] [phone] Prakash Graham M.D. [address] [place] [phone] 04/16/2024 1:00 PM CDT Ancillary Procedure Department of Ophthalmology in [place], [place] [address] [place] [phone] Kenya Garza M.D. [address] [place] [phone] 04/16/2024 2:00 PM CDT Ancillary Procedure Department of Ophthalmology in [place], [place] [address] [place] [phone] Kenya Garza M.D. [address] [place] [phone] 04/16/2024 2:30 PM CDT Office Visit Department of Ophthalmology in [place], [place] [address] [place] [phone] Kenya Garza M.D. [address] [place] [phone] 04/27/2024 10:02 AM CDT Hospital Encounter [facility] OR [address] [place] [phone] Prakash Graham M.D. [address] [place] [phone] 04/27/2024 10:02 AM CDT - 04/27/2024 11:45 AM CDT Surgery [facility] OR [address] [place] [phone] Prakash Graham M.D. [address] [place] [phone] VITRECTOMY - PARS PLANA 25 GAUGE / MEMBRANE PEEL / SILICONE OIL AND ALL ASSOCIATED PROCEDURES RIGHT EYE 04/28/2024 8:00 AM CDT Office Visit Department of Ophthalmology in [place], [place] [address] [place] [phone] Prakash Graham M.D. [address] [place] [phone] 05/05/2024 1:15 PM CDT Ancillary Procedure Department of Ophthalmology in [place], [place] [address] [place] [phone] Prakash Graham M.D. [address] [place] [phone] 05/05/2024 1:45 PM CDT Office Visit Department of Ophthalmology in [place], [place] [address] [place] [phone] Prakash Graham M.D. [address] [place] [phone] 06/02/2024 8:15 AM CDT Ancillary Procedure Department of Ophthalmology in [place], [place] [address] [place] [phone] Prakash Graham M.D. [address] [place] [phone] 06/02/2024 8:45 AM CDT Ancillary Procedure Department of Ophthalmology in [place], [place] [address] [place] [phone] Prakash Graham M.D. [address] [place] [phone] 06/02/2024 9:00 AM CDT Office Visit Department of Ophthalmology in [place], [place] [address] [place] [phone] Prakash Graham M.D. [address] [place] [address] Scheduled Procedures Name Priority Associated Diagnoses Date/Ti me VITRECTOMY - PARS PLANA 25 GAUGE Panuveitis Right Necrosis Retinal Acute Right 04/27/2024 10:02 AM CDT documented as of this encounter Visit Diagnoses Not on filedocumented in this encounter Care Teams Accounting Lecturer Relationship Specialty Start Date End Date Elsewhere, Pcp PCP - General Internal Medicine 05/29/19 documented as of this encounter
--- OUTSIDE RECORDS SUMMARY | 2024-03-31 18:07 | XMS_ITS | Encounter Summary ---
Author Organization [facility] Address [address] [place] [address] Care Team Providers Care Mortgage Banker Name Role Phone Elsewhere, Pcp Primary Care Provider Unavailabl e Encounter Details Date Type Department Care Team (Latest Contact Info) Description 03/13/2024 8:00 AM CDT Ancillary Procedure Department of Ophthalmology in [place], [place] [address] [place] [address] Kenya Garza M.D. [address] [place] [address] Panuveitis Right; Necrosis Retinal Acute Right Social History Tobacco Use Types Packs/Day Years Used Date Smoking Tobacco: Light Smoker Cigarettes 0.5 44.1 Started: 02/26/1980 Smokeless Tobacco: Never Comments:On again off again Alcohol Use Standard Drinks/Week Comments Yes 0 (1 standard drink = 0.6 oz pur e alcohol) [facility] Utilities Answer Date Recorded In the past 12 months has [employer], gas, oil, or water [employer] threatened to shut off services in your home? No 11/05/2023 Social Connection and Isolation Panel [NHANES] A nswer Date Recorded In a typical week, how many times do you talk on the phone with family, friends, or neighbors? Once a week 06/27/2020 How often do you get together with friends or re latives? Never 06/27/2020 How often do you attend scientologist or pentecostal serv ices? Never 06/27/2020 Do [...] medical care, and heating? Somewhat hard 06/27/2020 [facility] of Occupat ional Health - [...] your living situation today? I have a [facility] place to live 11/05/2023 Education [...] CDT Comprehensive Visit Preoperative Evaluation Center in [place], [place] [address] [place] [phone] Prakash Graham M.D. [address] [place] [phone] 04/14/2024 1:30 PM CDT Ancillary Procedure Department of Ophthalmology in [place], [place] [address] [place] [phone] Kenya Garza M.D. [address] [place] [phone] 04/14/2024 2:10 PM CDT Ancillary Procedure Department of Ophthalmology in [place], [place] [address] [place] [phone] Prakash Graham M.D. [address] [place] [phone] 04/14/2024 2:30 PM CDT Office Visit Department of Ophthalmology in [place], [place] [address] [place] [phone] Prakash Graham M.D. [address] [place] [phone] 04/16/2024 12:30 PM CDT Ancillary Procedure Department of Ophthalmology in [place], [place] [address] [place] [phone] Prakash Graham M.D. [address] [place] [phone] 04/16/2024 1:00 PM CDT Ancillary Procedure Department of Ophthalmology in [place], [place] [address] [place] [phone] Kenya Garza M.D. [address] [place] [phone] 04/16/2024 2:00 PM CDT Ancillary Procedure Department of Ophthalmology in [place], [place] [address] [place] [phone] Kenya Garza M.D. [address] [place] [phone] 04/16/2024 2:30 PM CDT Office Visit Department of Ophthalmology in [place], [place] [address] [place] [phone] Kenya Garza M.D. [address] [place] [phone] 04/27/2024 10:02 AM CDT Hospital Encounter [facility] OR [facility] [place] [phone] Prakash Graham M.D. [address] [place] [phone] 04/27/2024 10:02 AM CDT - 04/27/2024 11:45 AM CDT Surgery T [facility] OR [facility] [address] [place] [phone] Prakash Graham M.D. [address] [place] [phone] VITRECTOMY - PARS PLANA 25 GAUGE / MEMBRANE PEEL / SILICONE OIL AND ALL ASSOCIATED PROCEDURES RIGHT EYE 04/28/2024 8:00 AM CDT Office Visit Department of Ophthalmology in [place], [place] [address] [place] [phone] Prakash Graham M.D. [address] [place] [phone] 05/05/2024 1:15 PM CDT Ancillary Procedure Department of Ophthalmology in [place], [place] [address] [place] [phone] Prakash Graham M.D. [address] [place] [phone] 05/05/2024 1:45 PM CDT Office Visit Department of Ophthalmology in [place], [place] [address] [place] [phone] Prakash Graham M.D. [address] [place] [phone] 06/02/2024 8:15 AM CDT Ancillary Procedure Department of Ophthalmology in [place], [place] [address] [place] [phone] Prakash Graham M.D. [address] [place] [phone] 06/02/2024 8:45 AM CDT Ancillary Procedure Department of Ophthalmology in [place], [place] [address] [place] [phone] Prakash Graham M.D. [address] [place] [phone] 06/02/2024 9:00 AM CDT Office Visit Department of Ophthalmology in [place], [place] [address] [place] [address] Prakash Graham M.D. [address] [place] [address] Scheduled Procedures Name Priority Associated Diagnoses Date/Ti [...] Right documented in this encounter Care Teams Mortgage Banker Relationship Specialty Start Date End Date Elsewhere, Pcp PCP - General Internal Medicine 05/29/19 documented as of this encounter
--- OUTSIDE RECORDS SUMMARY | 2024-03-31 18:07 | XMS_ITS | Encounter Summary ---
Author Organization [facility] Address [address] [place] [address] Care Team Providers Care Clinical Reimbursement Specialist Name Role Phone Elsewhere, Pcp Primary Care Provider Unavailabl e Reason for Referral * MRI/CAT/PET Scan (Routine) - Closed Specialty Diagnoses / Procedures Referred By Contac t Referred To Contact Radiology Diagnoses Posterior Reversible Encephalopathy Syndrome Procedures MR Brain without and with IV Contrast Piter Baez M.D. [address] [place] [phone] [facility] Referral ID Status Reason Start Date Expiration Date Visits Re quested Visits Authorized [id number] Closed 02/03/2024 10/27/2024 1 1 Reason for Visit * MRI/CAT/PET Scan (Routine) - Closed Specialty Diagnoses / Procedures Referred By Contac t Referred To Contact Radiology Diagnoses Posterior Reversible Encephalopathy Syndrome Procedures MR Brain without and with IV Contrast Piter Baez M.D. [address] [place] [phone] [facility] Referral ID Status Reason Start Date Expiration Date Visits Re quested Visits Authorized [id number] Closed 02/03/2024 10/27/2024 1 1 Encounter Details Date Type Department Care Team (Latest Contact Info) Description 02/20/2024 3:05 PM CDT - 02/20/2024 11:59 PM CDT Hospital Encounter Department of Radiology, [facility] in [place], [place] [address] [place] [address] Piter Baez M.D. [address] [place] [address] Posterior Reversible Encephalopathy Syndrome Discharge Disposition: Home or Self Care Social History Tobacco Use Types Packs/Day Years Used Date Smoking Tobacco: Light Smoker Cigarettes 0.5 44.1 Started: 02/26/1980 Smokeless Tobacco: Never Comments:On again off again Alcohol Use Standard Drinks/Week Comments Yes 0 (1 standard drink = 0.6 oz pur e alcohol) [facility] Utilities Answer Date Recorded In the past [...] Never 06/27/2020 How often do you attend rastafarian or jehovah's witness serv ices? Never 06/27/2020 Do you belong to any clubs o r organizations such as rastafarian groups, unions, fraternal or athletic groups, or [...] hard 06/27/2020 [facility] of Occupat ional Health - Occupational Stress [...] CDT Comprehensive Visit Preoperative Evaluation Center in [place], [place] [address] [place] [phone] Prakash Graham M.D. [address] [place] [phone] 04/14/2024 1:30 PM CDT Ancillary Procedure Department of Ophthalmology in [place], [place] [address] [place] [phone] Kenya Garza M.D. [address] [place] [phone] 04/14/2024 2:10 PM CDT Ancillary Procedure Department of Ophthalmology in [place], [place] [address] [place] [phone] Prakash Graham M.D. [address] [place] [phone] 04/14/2024 2:30 PM CDT Office Visit Department of Ophthalmology in [place], [place] [address] [place] [phone] Prakash Graham M.D. [address] [place] [phone] 04/16/2024 12:30 PM CDT Ancillary Procedure Department of Ophthalmology in [place], [place] [address] [place] [phone] Prakash Graham M.D. [address] [place] [phone] 04/16/2024 1:00 PM CDT Ancillary Procedure Department of Ophthalmology in [place], [place] [address] [place] [phone] Kenya Garza M.D. [address] [place] [phone] 04/16/2024 2:00 PM CDT Ancillary Procedure Department of Ophthalmology in [place], [place] [address] [place] [phone] Kenya Garza M.D. [address] [place] [phone] 04/16/2024 2:30 PM CDT Office Visit Department of Ophthalmology in [place], [place] [address] [place] [phone] Kenya Garza M.D. [address] [place] [phone] 04/27/2024 10:02 AM CDT Hospital Encounter [facility]3] OR [address] [place] [phone] Prakash Graham M.D. [address] [place] [phone] 04/27/2024 10:02 AM CDT - 04/27/2024 11:45 AM CDT Surgery [facility]3] OR [address] [place] [phone] Prakash Graham M.D. [address] [place] [phone] VITRECTOMY - PARS PLANA 25 GAUGE / MEMBRANE PEEL / SILICONE OIL AND ALL ASSOCIATED PROCEDURES RIGHT EYE 04/28/2024 8:00 AM CDT Office Visit Department of Ophthalmology in [place], [place] [address] [place] [phone] Prakash Graham M.D. [address] [place] [phone] 05/05/2024 1:15 PM CDT Ancillary Procedure Department of Ophthalmology in [place], [place] [address] [place] [phone] Prakash Graham M.D. [address] [place] [phone] 05/05/2024 1:45 PM CDT Office Visit Department of Ophthalmology in [place], [place] [address] [place] [phone] Prakash Graham M.D. [address] [place] [phone] 06/02/2024 8:15 AM CDT Ancillary Procedure Department of Ophthalmology in [place], [place] [address] [place] [phone] Prakash Graham M.D. [address] [place] [address] 06/02/2024 8:45 AM CDT Ancillary Procedure Department of Ophthalmology in [place], [place] [address] [place] [address] Prakash Graham M.D. [address] [place] [phone] 06/02/2024 9:00 AM CDT Office Visit Department of Ophthalmology in [place], [place] [address] [place] [phone] Prakash Graham M.D. [address] [place] [phone] Scheduled Procedures Name Priority Associated Diagnoses Date/Ti [...] Modality Head, Brain, Neuroradiology [facility], [facility], Neuroradiology [facility] N/A Magnetic Resonance Impressions 02/21/2024 8:07 [...] mL documented in this encounter Care Teams Clinical Reimbursement Specialist Relationship Specialty Start Date End Date Elsewhere, Pcp PCP - General Internal Medicine 05/29/19 documented as of this encounter
--- OUTSIDE RECORDS SUMMARY | 2024-03-31 18:07 | XMS_ITS | Encounter Summary ---
Author Organization [facility] Address [address] [place] [address] Care Team Providers Care Armature Winder Repairer Name Role Phone Elsewhere, Pcp Primary Care Provider Unavailabl e Reason for Referral * Outpatient (Routine) - Closed Specialty Diagnoses / Procedures Referred By Apolinar lopez Referred To Contact Ophthalmology Diagnoses Panuveitis Right Necrosis Retinal Acute Right Kenya Garza M.D. [address] [place] [address] [facility] Referral ID Status Reason Start Date Expiration Date Visits Re quested Visits Authorized [id number] Closed 02/20/2024 08/21/2025 1 1 Reason for Visit * Outpatient (Routine) - Closed Specialty Diagnoses / Procedures Referred By Apolinar lopez Referred To Contact Ophthalmology Diagnoses Panuveitis Right Necrosis Retinal Acute Right Kenya Garza M.D. [address] [place] [address] [facility] Referral ID Status Reason Start Date Expiration Date Visits Re quested Visits Authorized [id number] Closed 01/23/2024 07/24/2025 1 1 Encounter Details Date Type Department Care Team (Latest Contact Info) Description 02/20/2024 11:15 AM CDT Office Visit Department of Ophthalmology in [place], [place] [address] [place] [phone] Kenya Garza M.D. [address] [place] [phone] Panuveitis Right (Primary Dx); Necrosis Retinal Acute Right Social History Tobacco Use Types Packs/Day Years Used Date Smoking Tobacco: Light Smoker Cigarettes 0.5 44.1 Started: 02/26/1980 Smokeless Tobacco: Never Comments:On again off again Alcohol Use Standard Drinks/Week Comments Yes 0 (1 standard drink = 0.6 oz pur e alcohol) [facility] Utilities Answer Date Recorded In the past 12 months has e electric, gas, oil, or water [place] threatened to shut off services in your home? No 11/05/2023 Social Connection and Isolation Panel [NHANES] A nswer Date Recorded In a typical week, how many times do you talk on the phone with family, friends, or neighbors? Once a week 06/27/2020 How often do you get together with friends or re latives? Never 06/27/2020 How often do you attend protestant or congregational serv ices? Never 06/27/2020 Do you belong [...] medical care, and heating? Somewhat hard 06/27/2020 [facility] [place] of Occupat ional Health - Occupational Stress [...] living situation today? I have a [facility] place to live 11/05/2023 Education Answer [...] with tobramycin drops without improvement. She saw ict analyst Dr. Daisy Ivy on 10/23/23. 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 In August 2023, she was sent from an infusion center to [place] emergency department where shewas found to have oxygen saturations of 78%. CT imaging showed worsening bilateral ground glass opacities. A CT scan was negative for pulmonary embolism. She was transferred to [facility] for additional pulmonology care. On 09/12/23 [...] three times in the past three months: [place] (09/02/23 for hypercalcemiaand acute kidney injury - had CT chest/abdomen/pelvis to assess for malignancy), [facility] again. Each time she saw [...] plans to monitor. (Her oncologist is at [facility].) MEDICATIONS Prednisolone every hour while [...] shallow retinal detachment. No T sign noted. [facility] Macula OCT of the right eye [...] membranes. Possible posterior thickening. No T sign. 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 [facility] PLAN: It has been 21 days [...] CDT Comprehensive Visit Preoperative Evaluation Center in [place], [place] [address] [place] [phone] Prakash Graham M.D. [address] [place] [phone] 04/14/2024 1:30 PM CDT Ancillary Procedure Department of Ophthalmology in [place], [place] [address] [place] [phone] Kenya Garza M.D. [address] [place] [phone] 04/14/2024 2:10 PM CDT Ancillary Procedure Department of Ophthalmology in [place], [place] [address] [place] [phone] Prakash Graham M.D. [address] [place] [phone] 04/14/2024 2:30 PM CDT Office Visit Department of Ophthalmology in [address] [phone] Prakash Graham M.D. [address] [place] [phone] 04/16/2024 12:30 PM CDT Ancillary Procedure Department of Ophthalmology in [place], [place] [address] [place] [phone] Prakash Graham M.D. [address] [place] [phone] 04/16/2024 1:00 PM CDT Ancillary Procedure Department of Ophthalmology in [place], [place] [address] [place] [phone] Kenya Garza M.D. [address] [place] [phone] 04/16/2024 2:00 PM CDT Ancillary Procedure Department of Ophthalmology in [place], [place] [address] [place] [phone] Kenya Garza M.D. [address] [place] [phone] 04/16/2024 2:30 PM CDT Office Visit Department of Ophthalmology in [place], [place] [address] [place] [phone] Kenya Garza M.D. [address] [place] [phone] 04/27/2024 10:02 AM CDT Hospital Encounter RST [facility] OR [facility] [place] [phone] Prakash Graham M.D. [address] [place] [phone] 04/27/2024 10:02 AM CDT - 04/27/2024 11:45 AM CDT Surgery T [facility] OR [address] [place] [phone] Prakash Graham M.D. [address] [place] [phone] VITRECTOMY - PARS PLANA 25 GAUGE / MEMBRANE PEEL / SILICONE OIL AND ALL ASSOCIATED PROCEDURES RIGHT EYE 04/28/2024 8:00 AM CDT Office Visit Department of Ophthalmology in [place], [place] [address] [place] [phone] Prakash Graham M.D. [address] [place] [phone] 05/05/2024 1:15 PM CDT Ancillary Procedure Department of Ophthalmology in [place], [place] [address] [place] [phone] Prakash Graham M.D. [address] [place] [phone] 05/05/2024 1:45 PM CDT Office Visit Department of Ophthalmology in [place], [place] [address] [place] [phone] Prakash Graham M.D. [address] [place] [phone] 06/02/2024 8:15 AM CDT Ancillary Procedure Department of Ophthalmology in [place], [place] [address] [place] [phone] Prakash Graham M.D. [address] [place] [phone] 06/02/2024 8:45 AM CDT Ancillary Procedure Department of Ophthalmology in [place], [place] [address] [place] [phone] Prakash Graham M.D. [address] [place] [phone] 06/02/2024 9:00 AM CDT Office Visit Department of Ophthalmology in [address] [phone] Prakash Graham M.D. [address] [place] [phone] Scheduled Procedures Name Priority Associated Diagnoses Date/Ti [...] possible ciliochoroidal effusion. BriannaK Kenya Garza M.D. [facility] Performing Organization Address [facility] Co de Phone Number OPHTHALMOLGY [...] possible ciliochoroidal effusion. ZK Kenya Garza M.D. 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
--- OUTSIDE RECORDS SUMMARY | 2024-03-31 18:07 | XMS_ITS | Encounter Summary ---
Author Organization [facility] Address [address] [place] [address] Care Team Providers Care Medical Administrative Name Role Phone Elsewhere, Pcp Primary Care Provider Unavailabl e Reason for Visit * Outpatient (Routine) - Closed Specialty Diagnoses / Procedures Referred By Contmuriel t Referred To Contact Neurology Piter Baez M.D. [address] [place] [address] [facility] Referral ID Status Reason Start Date Expiration Date Visits Re quested Visits Authorized [id number] Closed 02/20/2024 08/21/2025 1 1 Encounter Details Date Type Department Care Team (Latest Contact Info) Description 02/25/2024 4:30 PM CDT Telemedicine Department of Neurology in [place], [place] [address] [place] [phone] Piter Baez M.D. [address] [place] [phone] Posterior Reversible Encephalopathy Syndrome (Primary Dx) Social History Tobacco Use Types Packs/Day Years Used Date Smoking Tobacco: Light Smoker Cigarettes 0.5 44.1 Started: 02/26/1980 Smokeless Tobacco: Never Comments:On again off again Alcohol Use Standard Drinks/Week Comments Yes 0 (1 standard drink = 0.6 oz pur e alcohol) [facility] Utilities Answer Date Recorded In the [...] How often do you attend sikhism or christian serv ices? Never 06/27/2020 Do [...] heating? Somewhat hard 06/27/2020 [facility] [place] of Occupat ional Health - Occupational Stress [...] your living situation today? I have a [facility] place to live 11/05/2023 Education Answer [...] audio/video technology by Piter Baez M.D. in [facility] to the patient at home. RESULTS [...] CDT Comprehensive Visit Preoperative Evaluation Center in [place], [place] [address] [place] [phone] Prakash Graham M.D. [address] [place] [phone] 04/14/2024 1:30 PM CDT Ancillary Procedure Department of Ophthalmology in [address] [phone] Kenya Garza M.D. [address] [place] [phone] 04/14/2024 2:10 PM CDT Ancillary Procedure Department of Ophthalmology in [place], [place] [address] [place] [phone] Prakash Graham M.D. [address] [place] [phone] 04/14/2024 2:30 PM CDT Office Visit Department of Ophthalmology in [place], [place] [address] [place] [phone] Prakash Graham M.D. [address] [place] [phone] 04/16/2024 12:30 PM CDT Ancillary Procedure Department of Ophthalmology in [place], [place] [address] [place] [phone] Prakash Graham M.D. [address] [place] [phone] 04/16/2024 1:00 PM CDT Ancillary Procedure Department of Ophthalmology in [place], [place] [address] [place] [phone] Kenya Garza M.D. [address] [place] [phone] 04/16/2024 2:00 PM CDT Ancillary Procedure Department of Ophthalmology in [place], [place] [address] [place] [phone] Kenya Garza M.D. [address] [place] [phone] 04/16/2024 2:30 PM CDT Office Visit Department of Ophthalmology in [place], [place] [address] [place] [phone] Kenya Garza M.D. [address] [place] [phone] 04/27/2024 10:02 AM CDT Hospital Encounter RST [facility] OR [address] [place] [phone] Prakash Graham M.D. [address] [place] [phone] 04/27/2024 10:02 AM CDT - 04/27/2024 11:45 AM CDT Surgery [facility] [address] [place] [phone] Prakash Graham M.D. [address] [place] [phone] VITRECTOMY - PARS PLANA 25 GAUGE / MEMBRANE PEEL / SILICONE OIL AND ALL ASSOCIATED PROCEDURES RIGHT EYE 04/28/2024 8:00 AM CDT Office Visit Department of Ophthalmology in [place], [place] [address] [place] [phone] Prakash Graham M.D. [address] [place] [phone] 05/05/2024 1:15 PM CDT Ancillary Procedure Department of Ophthalmology in [place], [place] [address] [place] [phone] Prakash Graham M.D. [address] [place] [phone] 05/05/2024 1:45 PM CDT Office Visit Department of Ophthalmology in [address] [phone] Prakash Graham M.D. [address] [place] [phone] 06/02/2024 8:15 AM CDT Ancillary Procedure Department of Ophthalmology in [place], [place] [address] [place] [phone] Prakash Graham M.D. [address] [place] [phone] 06/02/2024 8:45 AM CDT Ancillary Procedure Department of Ophthalmology in [place], [place] [address] [place] [phone] Prakash Graham M.D. [address] [place] [phone] 06/02/2024 9:00 AM CDT Office Visit Department of Ophthalmology in [place], [place] [address] [place] [address] Prakash Graham M.D. [address] [place] [address] Scheduled Procedures Name Priority Associated Diagnoses Date/Ti me VITRECTOMY - PARS PLANA 25 GAUGE Panuveitis Right Necrosis Retinal Acute Right 04/27/2024 10:02 AM CDT documented as of this encounter Visit Diagnoses Diagnosis Posterior Reversible Encephalopathy Syndrome- Primary Panuveitis Right Necrosis Retinal Acute Right documented in this encounter Care Teams Medical Administrative Relationship Specialty Start Date End Date Elsewhere, Pcp PCP - General Internal Medicine 05/29/19 documented as of this encounter
--- OUTSIDE RECORDS SUMMARY | 2024-03-31 18:07 | XMS_ITS | Encounter Summary ---
Author Organization [facility] Address [address] [place] [address] Care Team Providers Care Software Security Architect Name Role Phone Elsewhere, Pcp Primary Care Provider Unavailabl e Encounter Details Date Type Department Care Team (Latest Contact Info) Description 02/20/2024 9:50 AM CDT Ancillary Procedure Department of Ophthalmology in [place], [place] [address] [place] [address] Kenya Garza M.D. [address] [place] [address] Panuveitis Right; Necrosis Retinal Acute Right Social History Tobacco Use Types Packs/Day Years Used Date Smoking Tobacco: Light Smoker Cigarettes 0.5 44.1 Started: 02/26/1980 Smokeless Tobacco: Never Comments:On again off again Alcohol Use Standard Drinks/Week Comments Yes 0 (1 standard drink = 0.6 oz pur e alcohol) [facility] Utilities Answer Date Recorded In the past 12 months has [employer], gas, oil, or water [employer] threatened to shut off services in your home? No 11/05/2023 Social Connection and Isolation Panel [NHANES] A nswer Date Recorded In a typical week, how many times do you talk on the phone with family, friends, or neighbors? Once a week 06/27/2020 How often do you get together with friends or re latives? Never 06/27/2020 How often do you attend religion or gnosticism serv ices? Never 06/27/2020 Do [...] medical care, and heating? Somewhat hard 06/27/2020 [facility] of Occupat ional Health - Occupational [...] your living situation today? I have a [facility] place to live 11/05/2023 Education [...] CDT Comprehensive Visit Preoperative Evaluation Center in [place], [place] [address] [place] [phone] Prakash Graham M.D. [address] [place] [phone] 04/14/2024 1:30 PM CDT Ancillary Procedure Department of Ophthalmology in [place], [place] [address] [place] [phone] Kenya Garza M.D. [address] [place] [phone] 04/14/2024 2:10 PM CDT Ancillary Procedure Department of Ophthalmology in [place], [place] [address] [place] [phone] Prakash Graham M.D. [address] [place] [phone] 04/14/2024 2:30 PM CDT Office Visit Department of Ophthalmology in [place], [place] [address] [place] [phone] Prakash Graham M.D. [address] [place] [phone] 04/16/2024 12:30 PM CDT Ancillary Procedure Department of Ophthalmology in [place], [place] [address] [place] [phone] Prakash Garham M.D. [address] [place] [phone] 04/16/2024 1:00 PM CDT Ancillary Procedure Department of Ophthalmology in [place], [place] [address] [place] [phone] Kenya Garza M.D. [address] [place] [phone] 04/16/2024 2:00 PM CDT Ancillary Procedure Department of Ophthalmology in [place], [place] [address] [place] [phone] Kenya Garza M.D. [address] [place] [phone] 04/16/2024 2:30 PM CDT Office Visit Department of Ophthalmology in [place], [place] [address] [place] [phone] Kenya Garza M.D. [address] [place] [phone] 04/27/2024 10:02 AM CDT Hospital Encounter T [facility] OR [facility] [place] [phone] Prakash Graham M.D. [address] [place] [phone] 04/27/2024 10:02 AM CDT - 04/27/2024 11:45 AM CDT Surgery T [facility] OR [facility] [address] [place] [phone] Prakash Graham M.D. [address] [place] [phone] VITRECTOMY - PARS PLANA 25 GAUGE / MEMBRANE PEEL / SILICONE OIL AND ALL ASSOCIATED PROCEDURES RIGHT EYE 04/28/2024 8:00 AM CDT Office Visit Department of Ophthalmology in [place], [place] [address] [place] [phone] Prakash Graham M.D. [address] [place] [phone] 05/05/2024 1:15 PM CDT Ancillary Procedure Department of Ophthalmology in [place], [place] [address] [place] [phone] Prakash Graham M.D. [address] [place] [phone] 05/05/2024 1:45 PM CDT Office Visit Department of Ophthalmology in [place], [place] [address] [place] [phone] Prakash Graham M.D. [address] [place] [phone] 06/02/2024 8:15 AM CDT Ancillary Procedure Department of Ophthalmology in [place], [place] [address] [place] [phone] Prakash Graham M.D. [address] [place] [phone] 06/02/2024 8:45 AM CDT Ancillary Procedure Department of Ophthalmology in [place], [place] [address] [place] [phone] Prakash Graham M.D. [address] [place] [phone] 06/02/2024 9:00 AM CDT Office Visit Department of Ophthalmology in [place], [place] [address] [place] [address] Prakash Graham M.D. [address] [place] [address] Scheduled Procedures Name Priority Associated Diagnoses Date/Ti [...] Right documented in this encounter Care Teams Software Security Architect Relationship Specialty Start Date End Date Elsewhere, Pcp PCP - General Internal Medicine 05/29/19 documented as of this encounter
--- OUTSIDE RECORDS SUMMARY | 2024-03-31 18:07 | XMS_ITS | Encounter Summary ---
Author Organization [facility] Address [address] [place] [address] Care Team Providers Care Online Editor Name Role Phone Elsewhere, Pcp Primary [...] drink = 0.6 oz pur e alcohol) [facility] Utilities Answer Date Recorded In the past 12 months has th [employer] electric, gas, oil, or water company threatened [...] How often do you attend buddhism or protestant serv ices? Never 06/27/2020 Do [...] 06/27/2020 [facility] of Occupat ional [facility] - Occupational Stress Questionnaire Answer Date [...] your living situation today? I have a [facility] place to live 11/05/2023 Education Answer [...] CDT Comprehensive Visit Preoperative Evaluation Center in [place], [place] [address] [place] [phone] Prakash Graham M.D. [address] [place] [phone] 04/14/2024 1:30 PM CDT Ancillary Procedure Department of Ophthalmology in [place], [place] [address] [place] [phone] Kenya Garza M.D. [address] [place] [phone] 04/14/2024 2:10 PM CDT Ancillary Procedure Department of Ophthalmology in [place], [place] [address] [place] [phone] Prakash Graham M.D. [address] [place] [phone] 04/14/2024 2:30 PM CDT Office Visit Department of Ophthalmology in [address] [phone] Prakash Graham M.D. [address] [place] [phone] 04/16/2024 12:30 PM CDT Ancillary Procedure Department of Ophthalmology in [address] [phone] Prakash Graham M.D. [address] [place] [phone] 04/16/2024 1:00 PM CDT Ancillary Procedure Department of Ophthalmology in [place], [place] [address] [place] [phone] Kenya Garza M.D. [address] [place] [phone] 04/16/2024 2:00 PM CDT Ancillary Procedure Department of Ophthalmology in [place], [place] [address] [place] [phone] Kenya Garza M.D. [address] [place] [phone] 04/16/2024 2:30 PM CDT Office Visit Department of Ophthalmology in [place], [place] [address] [place] [phone] Kenya Garza M.D. [address] [place] [phone] 04/27/2024 10:02 AM CDT Hospital Encounter [facility] OR [facility] [place] [phone] Prakash Graham M.D. [address] [place] [phone] 04/27/2024 10:02 AM CDT - 04/27/2024 11:45 AM CDT Surgery [facility] OR [address] [place] [phone] Prakash Graham M.D. [address] [place] [phone] VITRECTOMY - PARS PLANA 25 GAUGE / MEMBRANE PEEL / SILICONE OIL AND ALL ASSOCIATED PROCEDURES RIGHT EYE 04/28/2024 8:00 AM CDT Office Visit Department of Ophthalmology in [place], [place] [address] [place] [phone] Prakash Graham M.D. [address] [place] [phone] 05/05/2024 1:15 PM CDT Ancillary Procedure Department of Ophthalmology in [place], [place] [address] [place] [phone] Prakash Graham M.D. [address] [place] [phone] 05/05/2024 1:45 PM CDT Office Visit Department of Ophthalmology in [place], [place] [address] [place] [phone] Prakash Graham M.D. [address] [place] [phone] 06/02/2024 8:15 AM CDT Ancillary Procedure Department of Ophthalmology in [place], [place] [address] [place] [phone] Prakash Graham M.D. [address] [place] [phone] 06/02/2024 8:45 AM CDT Ancillary Procedure Department of Ophthalmology in [address] [phone] Prakash Graham M.D. [address] [place] [phone] 06/02/2024 9:00 AM CDT Office Visit Department of Ophthalmology in [place], [place] [address] [place] [phone] Prakash Graham M.D. [address] [place] [phone] Scheduled Procedures Name Priority Associated Diagnoses Date/Ti me VITRECTOMY - PARS PLANA GAUGE Panuveitis Right Necrosis Retinal Acute Right 04/27/2024 10:02 AM CDT documented as of this encounter Procedures Procedure Name Priority Date/Time Associated Diagnosis Comments OPHTHALMOLOGY IMAGE EXAM Routine 02/20/2024 12:00 AM CDT documented in this encounter Results * Video-Eyes US-Eye F-Zbth-Ouiqlrmraufgi Image Exam (02/20/2024 12:00 AM CDT) Narrative [...] on filedocumented in this encounter Care Teams Online Editor Relationship Specialty Start Date End Date Elsewhere, Pcp PCP - General Internal Medicine 05/29/19 documented as of this encounter
--- OUTSIDE RECORDS SUMMARY | 2024-03-31 18:07 | XMS_ITS | Encounter Summary ---
Author Organization [facility] Address [address] [place] [address] Care Team Providers Care Vending Machine Technician Name Role Phone Elsewhere, Pcp Primary Care Provider Unavailabl e Reason for Referral * Outpatient (Routine) - Closed Specialty Diagnoses / Procedures Referred By Contac t Referred To Contact Neurology Piter Baez M.D. 200 [place] [address] [facility] Referral ID Status Reason Start Date Expiration Date Visits Re quested Visits Authorized [id number] Closed 02/20/2024 08/21/2025 1 1 Reason for Visit * Outpatient (Routine) - Closed Specialty Diagnoses / Procedures Referred By Contac t Referred To Contact Neurology Diagnoses Posterior Reversible Encephalopathy Syndrome Katerine Bashir M.D. [address] [place] [address] [facility] Referral ID Status Reason Start Date Expiration Date Visits Re quested Visits Authorized [id number] Closed 01/20/2024 07/21/2025 1 1 Encounter Details Date Type Department Care Team (Latest Contact Info) Description 02/20/2024 1:00 PM CDT Comprehensive Visit Department of Neurology in [place], [place] [address] [place] [phone] Piter Baez M.D. 200 [place] [address] Posterior Reversible Encephalopathy Syndrome Social History Tobacco Use Types Packs/Day Years Used Date Smoking Tobacco: Light Smoker Cigarettes 0.5 44.1 Started: 02/26/1980 Smokeless Tobacco: Never Comments:On again off again Alcohol Use Standard Drinks/Week Comments Yes 0 (1 standard drink = 0.6 oz pur e alcohol) [facility] Utilities Answer Date Recorded In [...] Never 06/27/2020 How often do you attend hindu or restoration serv ices? Never 06/27/2020 Do you belong to any clubs o r organizations such as hindu groups, unions, fraternal or athletic groups, or [...] medical care, and heating? Somewhat hard 06/27/2020 [facility] [place] of Occupat ional Health - Occupational Stress [...] . Referring provider: Katerine Bashir M.D. [address] [place] [address] HISTORY OF PRESENT ILLNESS Pleasant 68-year-old right-handed woman accompanied by her who is referred by her PCP for an initial neurology evaluation regarding recent hospitalization elsewhere for PRES. She gets her ophthalmology care at [facility] by Dr. 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 She gets all of her care for other medical conditions in [place] and I do not have access to [facility] these records. 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 [...] her care here rather than[facility]. We have scheduled an MRI [...] CDT Comprehensive Visit Preoperative Evaluation Center in [place], [place] [address] [place] [address] Prakash Graham M.D. [address] [place] [address] 04/14/2024 1:30 PM CDT Ancillary Procedure Department of Ophthalmology in [place], [place] [address] [place] [phone] Kenya Garza M.D. [address] [place] [phone] 04/14/2024 2:10 PM CDT Ancillary Procedure Department of Ophthalmology in [place], [place] [address] [place] [phone] Prakash Graham M.D. [address] [place] [phone] 04/14/2024 2:30 PM CDT Office Visit Department of Ophthalmology in [place], [place] [address] [place] [phone] Prakash Graham M.D. [address] [place] [phone] 04/16/2024 12:30 PM CDT Ancillary Procedure Department of Ophthalmology in [place], [place] [address] [place] [phone] Prakash Graham M.D. [address] [place] [phone] 04/16/2024 1:00 PM CDT Ancillary Procedure Department of Ophthalmology in [place], [place] [address] [place] [phone] Kenya Garza M.D. [address] [place] [phone] 04/16/2024 2:00 PM CDT Ancillary Procedure Department of Ophthalmology in [place], [place] [address] [place] [phone] Kenya Garza M.D. [address] [place] [phone] 04/16/2024 2:30 PM CDT Office Visit Department of Ophthalmology in [place], [place] [address] [place] [phone] Kenya Garza M.D. [address] [place] [phone] 04/27/2024 10:02 AM CDT Hospital Encounter [facility] OR [facility] [place] [phone] Prakash Graham M.D. [address] [place] [phone] 04/27/2024 10:02 AM CDT - 04/27/2024 11:45 AM CDT Surgery [facility] OR [facility] [address] [place] [phone] Prakash Graham M.D. [address] [place] [phone] VITRECTOMY - PARS PLANA 25 GAUGE / MEMBRANE PEEL / SILICONE OIL AND ALL ASSOCIATED PROCEDURES RIGHT EYE 04/28/2024 8:00 AM CDT Office Visit Department of Ophthalmology in [place], [place] [address] [place] [phone] Prakash Graham M.D. [address] [place] [phone] 05/05/2024 1:15 PM CDT Ancillary Procedure Department of Ophthalmology in [place], [place] [address] [place] [phone] Prakash Graham M.D. [address] [place] [phone] 05/05/2024 1:45 PM CDT Office Visit Department of Ophthalmology in [place], [place] [address] [place] [phone] Prakash Graham M.D. [address] [place] [phone] 06/02/2024 8:15 AM CDT Ancillary Procedure Department of Ophthalmology in [place], [place] [address] [place] [phone] Prakash Graham M.D. [address] [place] [phone] 06/02/2024 8:45 AM CDT Ancillary Procedure Department of Ophthalmology in [place], [place] [address] [place] [phone] Prakash Graham M.D. [address] [place] [phone] 06/02/2024 9:00 AM CDT Office Visit Department of Ophthalmology in [place], [place] [address] [place] [phone] Prakash Graham M.D. 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
--- OUTSIDE RECORDS SUMMARY | 2024-03-31 18:07 | XMS_ITS | Encounter Summary ---
Author Organization [facility] Address [address] [place] [address] Care Team Providers Care Finding Fastener Name Role Phone Elsewhere, Pcp Primary Care Provider Unavailabl e Encounter Details Date Type Department Care Team (Latest Contact Info) Description 03/13/2024 12:00 PM CDT Ancillary Procedure Department of Ophthalmology in [place], [place] [address] [place] [address] Kenya Garza M.D. [address] [place] [address] Panuveitis Right; Necrosis Retinal Acute Right Social History Tobacco Use Types Packs/Day Years Used Date Smoking Tobacco: Light Smoker Cigarettes 0.5 44.1 Started: 02/26/1980 Smokeless Tobacco: Never Comments:On again off again Alcohol Use Standard Drinks/Week Comments Yes 0 (1 standard drink = 0.6 oz pur e alcohol) [facility] Utilities Answer Date Recorded In the past 12 months has [employer], gas, oil, or water [employer] threatened to shut off services in your home? No 11/05/2023 Social Connection and Isolation Panel [NHANES] A nswer Date Recorded In a typical week, how many times do you talk on the phone with family, friends, or neighbors? Once a week 06/27/2020 How often do you get together with friends or re latives? Never 06/27/2020 How often do you attend rastafari or mormonism serv ices? Never 06/27/2020 Do [...] medical care, and heating? Somewhat hard 06/27/2020 [facility] of Occupat ional Health - [...] living situation today? I have a [facility] place to live 11/05/2023 Education Answer [...] CDT Comprehensive Visit Preoperative Evaluation Center in [place], [place] [address] [place] [phone] Prakash Graham M.D. [address] [place] [phone] 04/14/2024 1:30 PM CDT Ancillary Procedure Department of Ophthalmology in [place], [place] [address] [place] [phone] Kenya Garza M.D. [address] [place] [phone] 04/14/2024 2:10 PM CDT Ancillary Procedure Department of Ophthalmology in [place], [place] [address] [place] [phone] Prakash Graham M.D. [address] [place] [phone] 04/14/2024 2:30 PM CDT Office Visit Department of Ophthalmology in [place], [place] [address] [place] [phone] Prakash Graham M.D. [address] [place] [phone] 04/16/2024 12:30 PM CDT Ancillary Procedure Department of Ophthalmology in [place], [place] [address] [place] [phone] Prakash Graham M.D. [address] [place] [phone] 04/16/2024 1:00 PM CDT Ancillary Procedure Department of Ophthalmology in [place], [place] [address] [place] [phone] Kenya Garza M.D. [address] [place] [phone] 04/16/2024 2:00 PM CDT Ancillary Procedure Department of Ophthalmology in [place], [place] [address] [place] [phone] Kenya Garza M.D. [address] [place] [phone] 04/16/2024 2:30 PM CDT Office Visit Department of Ophthalmology in [place], [place] [address] [place] [phone] Kenya Garza M.D. [address] [place] [phone] 04/27/2024 10:02 AM CDT Hospital Encounter [facility] OR [facility] [place] [phone] Prakash Graham M.D. [address] [place] [phone] 04/27/2024 10:02 AM CDT - 04/27/2024 11:45 AM CDT Surgery T [facility] OR [facility] [place] [phone] Prakash Graham M.D. [address] [place] [phone] VITRECTOMY - PARS PLANA 25 GAUGE / MEMBRANE PEEL / SILICONE OIL AND ALL ASSOCIATED PROCEDURES RIGHT EYE 04/28/2024 8:00 AM CDT Office Visit Department of Ophthalmology in [place], [place] [address] [place] [phone] Prakash Graham M.D. [address] [place] [phone] 05/05/2024 1:15 PM CDT Ancillary Procedure Department of Ophthalmology in [place], [place] [address] [place] [phone] Prakash Graham M.D. [address] [place] [phone] 05/05/2024 1:45 PM CDT Office Visit Department of Ophthalmology in [place], [place] [address] [place] [phone] Prakash Graham M.D. [address] [place] [phone] 06/02/2024 8:15 AM CDT Ancillary Procedure Department of Ophthalmology in [place], [place] [address] [place] [phone] Prakash Graham M.D. [address] [place] [phone] 06/02/2024 8:45 AM CDT Ancillary Procedure Department of Ophthalmology in [place], [place] [address] [place] [phone] Prakash Graham M.D. [address] [place] [phone] 06/02/2024 9:00 AM CDT Office Visit Department of Ophthalmology in [place], [place] [address] [place] [phone] Prakash Graham M.D. [address] [place] [address] Scheduled Procedures Name Priority Associated Diagnoses Date/Ti [...] Right documented in this encounter Care Teams Finding Fastener Relationship Specialty Start Date End Date Elsewhere, Pcp PCP - General Internal Medicine 05/29/19 documented as of this encounter
--- OUTSIDE RECORDS SUMMARY | 2024-03-31 18:07 | XMS_ITS | Encounter Summary ---
Author Organization [facility] Address [address] [place] [address] Care Team Providers Care Steelworker Name Role Phone Elsewhere, Pcp Primary Care Provider Unavailabl e Encounter Details Date Type Department Care Team (Latest Contact Info) Description 03/10/2024 Clinical Communication Department of Ophthalmology in [place], [place] [address] [place] [address] Kenya Garza M.D. [address] [place] [address] Social History Tobacco Use Types Packs/Day Years Used Date Smoking Tobacco: Light Smoker Cigarettes 0.5 44.1 Started: 02/26/1980 Smokeless Tobacco: Never Comments:On again off again Alcohol Use Standard Drinks/Week Comments Yes 0 (1 standard drink = 0.6 oz pur e alcohol) [facility] Utilities Answer Date Recorded In the past 12 months has [employer], gas, oil, or water company threatened [...] How often do you attend christianity or latter-day serv ices? Never 06/27/2020 Do [...] medical care, and heating? Somewhat hard 06/27/2020 [facility] of Occupat ional Health - Occupational Stress [...] your living situation today? I have a [facility] place to live 11/05/2023 Education [...] CDT Comprehensive Visit Preoperative Evaluation Center in [place], [place] [address] [place] [address] Prakash Graham M.D. [address] [place] [phone] 04/14/2024 1:30 PM CDT Ancillary Procedure Department of Ophthalmology in [place], [place] [address] [place] [phone] Kenya Garza M.D. [address] [place] [phone] 04/14/2024 2:10 PM CDT Ancillary Procedure Department of Ophthalmology in [place], [place] [address] [place] [phone] Prakash Graham M.D. [address] [place] [phone] 04/14/2024 2:30 PM CDT Office Visit Department of Ophthalmology in [place], [place] [address] [place] [phone] Prakash Graham M.D. [address] [place] [phone] 04/16/2024 12:30 PM CDT Ancillary Procedure Department of Ophthalmology in [place], [place] [address] [place] [phone] Prakash Graham M.D. [address] [place] [phone] 04/16/2024 1:00 PM CDT Ancillary Procedure Department of Ophthalmology in [place], [place] [address] [place] [phone] Kenya Garza M.D. [address] [place] [phone] 04/16/2024 2:00 PM CDT Ancillary Procedure Department of Ophthalmology in [place], [place] [address] [place] [phone] Kenya Garza M.D. [address] [place] [phone] 04/16/2024 2:30 PM CDT Office Visit Department of Ophthalmology in [place], [place] [address] [place] [phone] Kenya Garza M.D. [address] [place] [phone] 04/27/2024 10:02 AM CDT Hospital Encounter [facility] OR [address] [place] [phone] Prakash Graham M.D. [address] [place] [phone] 04/27/2024 10:02 AM CDT - 04/27/2024 11:45 AM CDT Surgery [facility] OR [address] [place] [phone] Prakash Graham M.D. [address] [place] [phone] VITRECTOMY - PARS PLANA 25 GAUGE / MEMBRANE PEEL / SILICONE OIL AND ALL ASSOCIATED PROCEDURES RIGHT EYE 04/28/2024 8:00 AM CDT Office Visit Department of Ophthalmology in [place], [place] [address] [place] [phone] Prakash Graham M.D. [address] [place] [phone] 05/05/2024 1:15 PM CDT Ancillary Procedure Department of Ophthalmology in [place], [place] [address] [place] [phone] Prakash Graham M.D. [address] [place] [phone] 05/05/2024 1:45 PM CDT Office Visit Department of Ophthalmology in [place], [place] [address] [place] [phone] Prakash Graham M.D. [address] [place] [phone] 06/02/2024 8:15 AM CDT Ancillary Procedure Department of Ophthalmology in [place], [place] [address] [place] [phone] Prakash Graham M.D. [address] [place] [phone] 06/02/2024 8:45 AM CDT Ancillary Procedure Department of Ophthalmology in [place], [place] [address] [place] [phone] Prakash Graham M.D. [address] [place] [phone] 06/02/2024 9:00 AM CDT Office Visit Department of Ophthalmology in [place], [place] [address] [place] [phone] Prakash Graham M.D. [address] [place] [phone] Scheduled Procedures Name Priority Associated Diagnoses Date/Ti me VITRECTOMY - PARS PLANA 25 GAUGE Panuveitis Right Necrosis Retinal Acute Right 04/27/2024 10:02 AM CDT documented as of this encounter Visit Diagnoses Not on filedocumented in this encounter Care Teams Steelworker Relationship Specialty Start Date End Date Elsewhere, Pcp PCP - General Internal Medicine 05/29/19 documented as of this encounter
--- OUTSIDE RECORDS SUMMARY | 2024-03-31 18:07 | XMS_ITS | Encounter Summary ---
Author Organization [facility] Address [address] [place] [address] Care Team Providers Care Beehive Kiln Supervisor Name Role Phone Elsewhere, Pcp Primary Care Provider Unavailabl e Reason for Referral * Outpatient (Routine) - Authorized Specialty Diagnoses / Procedures Referred By Apolinar lopez Referred To Contact Ophthalmology Diagnoses Necrosis Retinal Acute Right Kenya Garza M.D. [address] [place] [phone] [facility] Referral ID Status Reason Start Date Expiration Date V isits Requested Visits Authorized [id number] Authorized 03/13/2024 09/12/2025 1 1 Reason for Visit * Outpatient (Routine) - Closed Specialty Diagnoses / Procedures Referred By Apolinar lopez Referred To Contact Ophthalmology Diagnoses Panuveitis Right Necrosis Retinal Acute Right Kenya Garza M.D. [address] [place] [phone] [facility] Referral ID Status Reason Start Date Expiration Date Visits Re quested Visits Authorized [id number] Closed 02/20/2024 08/21/2025 1 1 Encounter Details Date Type Department Care Team (Latest Contact Info) Description 03/13/2024 11:30 AM CDT Office Visit Department of Ophthalmology in [place], [place] [address] [place] [phone] Kenya Garza M.D. [address] [place] [phone] Necrosis Retinal Acute Right (Primary Dx); Panuveitis [...] How often do you attend shinto or mosque serv ices? Never 06/27/2020 Do [...] medical care, and heating? Somewhat hard 06/27/2020 [facility] of Occupat ional Health - Occupational Stress [...] your living situation today? [facility] 11/05/2023 Education Answer [...] of this encounter Progress Notes * Kenya Garaz M.D. - 03/13/2024 11:30 AM CDT HPI - 11/05/23 Mrs. Alexandra Dixon is a 68 year old woman who is referred by Dr. Daisy Ivy for evaluation ofuveitis. She woke up with a red, painful, tearing right eye on 12/20/23. Was seen in urgent care on 10/19/23and diagnosed with pink eye, treated with tobramycin drops without improvement. She saw generator switchboard operator Dr. Daisy Ivy on 10[facility]23/23. 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 She was transferred to [facility] for additional pulmonology care. On 09/12/23 [...] chest/abdomen/pelvis to assess for malignancy), [facility] again. Each time she saw her [...] plans to monitor. (Her oncologist is at [facility].) MEDICATIONS Prednisolone every hour while [...] shallow retinal detachment. No T sign noted. [facility] Macula OCT of the right eye [...] membranes. Possible posterior thickening. No T sign. 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 [facility] PLAN: It has been 21 days since [...] CDT Comprehensive Visit Preoperative Evaluation Center in [address] [phone] Prakash Graham M.D. [address] [place] [phone] 04/14/2024 1:30 PM CDT Ancillary Procedure Department of Ophthalmology in [place], [place] [address] [place] [phone] Kenya Garza M.D. [address] [place] [phone] 04/14/2024 2:10 PM CDT Ancillary Procedure Department of Ophthalmology in [place], [place] [address] [place] [phone] Prakash Graham M.D. [address] [place] [phone] 04/14/2024 2:30 PM CDT Office Visit Department of Ophthalmology in [address] [phone] Prakash Graham M.D. [address] [place] [phone] 04/16/2024 12:30 PM CDT Ancillary Procedure Department of Ophthalmology in [address] [phone] Prakash Graham M.D. [address] [place] [phone] 04/16/2024 1:00 PM CDT Ancillary Procedure Department of Ophthalmology in [place], [place] [address] [place] [phone] Kenya Garza M.D. [address] [place] [phone] 04/16/2024 2:00 PM CDT Ancillary Procedure Department of Ophthalmology in [place], [place] [address] [place] [phone] Kenya Garza M.D. [address] [place] [phone] 04/16/2024 2:30 PM CDT Office Visit Department of Ophthalmology in [place], [place] [address] [place] [phone] Kenya Garza M.D. [address] [place] [phone] 04/27/2024 10:02 AM CDT Hospital Encounter [facility] [place] [phone] Prakash Graham M.D. [address] [place] [phone] 04/27/2024 10:02 AM CDT - 04/27/2024 11:45 AM CDT Surgery [facility] [place] [phone] Prakash Graham M.D. [address] [place] [phone] VITRECTOMY - PARS PLANA 25 GAUGE / MEMBRANE PEEL / SILICONE OIL AND ALL ASSOCIATED PROCEDURES RIGHT EYE 04/28/2024 8:00 AM CDT Office Visit Department of Ophthalmology in [place], [place] [address] [place] [phone] Prakash Graham M.D. [address] [place] [phone] 05/05/2024 1:15 PM CDT Ancillary Procedure Department of Ophthalmology in [place], [place] [address] [place] [phone] Prakash Graham M.D. [address] [place] [phone] 05/05/2024 1:45 PM CDT Office Visit Department of Ophthalmology in [place], [place] [address] [place] [phone] Prakash Graham M.D. [address] [place] [phone] 06/02/2024 8:15 AM CDT Ancillary Procedure Department of Ophthalmology in [place], [place] [address] [place] [phone] Prakash Graham M.D. [address] [place] [phone] 06/02/2024 8:45 AM CDT Ancillary Procedure Department of Ophthalmology in [place], [place] [address] [place] [phone] Prakash Graham M.D. [address] [place] [phone] 06/02/2024 9:00 AM CDT Office Visit Department of Ophthalmology in [place], [place] [address] [place] [phone] Prakash Graham M.D. [address] [place] [phone] Scheduled Procedures Name Priority Associated Diagnoses Date/Ti [...] Right documented in this encounter Care Teams Beehive Kiln Supervisor Relationship Specialty Start Date End Date Elsewhere, Pcp PCP - General Internal Medicine 05/29/19 documented as of this encounter
--- OUTSIDE RECORDS SUMMARY | 2024-03-31 18:07 | XMS_ITS | Encounter Summary ---
Author Organization [facility] Address [address] [place] [address] Care Team Providers Care Optical Engineering Technician Name Role Phone Elsewhere, Pcp Primary Care Provider Unavailabl e Encounter Details Date Type Department Care Team (Latest Contact Info) Description 02/20/2024 10:00 AM CDT Ancillary Procedure Department of Ophthalmology in [place], [place] [address] [place] [address] Kenya Garza M.D. [address] [place] [address] Panuveitis Right; Necrosis Retinal Acute Right Social History Tobacco Use Types Packs/Day Years Used Date Smoking Tobacco: Light Smoker Cigarettes 0.5 44.1 Started: 02/26/1980 Smokeless Tobacco: Never Comments:On again off again Alcohol Use Standard Drinks/Week Comments Yes 0 (1 standard drink = 0.6 oz pur e alcohol) [facility] Utilities Answer Date Recorded In the past 12 months has [employer], gas, oil, or water [employer] threatened to shut off services in your home? No 11/05/2023 Social Connection and Isolation Panel [NHANES] A nswer Date Recorded In a typical week, how many times do you talk on the phone with family, friends, or neighbors? Once a week 06/27/2020 How often do you get together with friends or re latives? Never 06/27/2020 How often do you attend mormonism or nondenominational serv ices? Never 06/27/2020 Do you belong [...] medical care, and heating? Somewhat hard 06/27/2020 [facility] of Occupat ional Health - [...] CDT Comprehensive Visit Preoperative Evaluation Center in [place], [place] [address] [place] [phone] Prakash Graham M.D. [address] [place] [phone] 04/14/2024 1:30 PM CDT Ancillary Procedure Department of Ophthalmology in [place], [place] [address] [place] [phone] Kenya Garza M.D. [address] [place] [phone] 04/14/2024 2:10 PM CDT Ancillary Procedure Department of Ophthalmology in [place], [place] [address] [place] [phone] Prakash Graham M.D. [address] [place] [phone] 04/14/2024 2:30 PM CDT Office Visit Department of Ophthalmology in [place], [place] [address] [place] [phone] Prakash Graham M.D. [address] [place] [phone] 04/16/2024 12:30 PM CDT Ancillary Procedure Department of Ophthalmology in [place], [place] [address] [place] [phone] Prakash Graham M.D. [address] [place] [phone] 04/16/2024 1:00 PM CDT Ancillary Procedure Department of Ophthalmology in [place], [place] [address] [place] [phone] Kenya Garza M.D. [address] [place] [phone] 04/16/2024 2:00 PM CDT Ancillary Procedure Department of Ophthalmology in [place], [place] [address] [place] [phone] Kenya Garza M.D. [address] [place] [phone] 04/16/2024 2:30 PM CDT Office Visit Department of Ophthalmology in [place], [place] [address] [place] [phone] Kenya Garza M.D. [address] [place] [phone] 04/27/2024 10:02 AM CDT Hospital Encounter [facility] [place] [phone] Prakash Graham M.D. [address] [place] [phone] 04/27/2024 10:02 AM CDT - 04/27/2024 11:45 AM CDT Surgery T [facility] OR [facility] [place] [phone] Prakash Graham M.D. [address] [place] [phone] VITRECTOMY - PARS PLANA 25 GAUGE / MEMBRANE PEEL / SILICONE OIL AND ALL ASSOCIATED PROCEDURES RIGHT EYE 04/28/2024 8:00 AM CDT Office Visit Department of Ophthalmology in [place], [place] [address] [place] [phone] Prakash Graham M.D. [address] [place] [phone] 05/05/2024 1:15 PM CDT Ancillary Procedure Department of Ophthalmology in [place], [place] [address] [place] [phone] Prakash Graham M.D. [address] [place] [phone] 05/05/2024 1:45 PM CDT Office Visit Department of Ophthalmology in [place], [place] [address] [place] [phone] Prakash Graham M.D. [address] [place] [phone] 06/02/2024 8:15 AM CDT Ancillary Procedure Department of Ophthalmology in [place], [place] [address] [place] [phone] Prakash Graham M.D. [address] [place] [phone] 06/02/2024 8:45 AM CDT Ancillary Procedure Department of Ophthalmology in [place], [place] [address] [place] [phone] Prakash Graham M.D. [address] [place] [phone] 06/02/2024 9:00 AM CDT Office Visit Department of Ophthalmology in [place], [place] [address] [place] [address] Prakash Graham M.D. [address] [place] [address] Scheduled Procedures Name Priority Associated Diagnoses Date/Ti [...] documented in this encounter Care Teams Optical Engineering Technician Relationship Specialty Start Date End Date Elsewhere, Pcp PCP - General Internal Medicine 05/29/19 documented as of this encounter
--- OUTSIDE RECORDS SUMMARY | 2024-03-31 18:07 | XMS_ITS | Encounter Summary ---
Author Organization [facility] Address [address] [place] [address] Care Team Providers Care Park Services Specialist Name Role Phone Elsewhere, Pcp Primary [...] = 0.6 oz pur e alcohol) [facility] Utilities Answer Date Recorded In the past 12 months has [employer] electric, gas, oil, or water company threatened [...] How often do you attend anabaptism or hoahaoism serv ices? Never 06/27/2020 Do [...] [facility] - Occupational Stress Questionnaire Answer [...] your living situation today? I have a [facility] place to live 11/05/2023 Education Answer [...] CDT Comprehensive Visit Preoperative Evaluation Center in [place], [place] [address] [place] [phone] Prakash Graham M.D. [address] [place] [phone] 04/14/2024 1:30 PM CDT Ancillary Procedure Department of Ophthalmology in [address] [phone] Kenya Garza M.D. [address] [place] [phone] 04/14/2024 2:10 PM CDT Ancillary Procedure Department of Ophthalmology in [address] [phone] Prakash Graham M.D. [address] [place] [phone] 04/14/2024 2:30 PM CDT Office Visit Department of Ophthalmology in [address] [phone] Prakash Graham M.D. [address] [place] [phone] 04/16/2024 12:30 PM CDT Ancillary Procedure Department of Ophthalmology in [address] [phone] Prakash Graham M.D. [address] [place] [phone] 04/16/2024 1:00 PM CDT Ancillary Procedure Department of Ophthalmology in [place], [place] [address] [place] [phone] Kenya Garza M.D. [address] [place] [phone] 04/16/2024 2:00 PM CDT Ancillary Procedure Department of Ophthalmology in [place], [place] [address] [place] [phone] Kenya Garza M.D. [address] [place] [phone] 04/16/2024 2:30 PM CDT Office Visit Department of Ophthalmology in [place], [place] [address] [place] [phone] Kenya Garza M.D. [address] [place] [phone] 04/27/2024 10:02 AM CDT Hospital Encounter [facility] [place] [phone] Prakash Graham M.D. [address] [place] [phone] 04/27/2024 10:02 AM CDT - 04/27/2024 11:45 AM CDT Surgery [facility] [place] [phone] Prakash Graham M.D. [address] [place] [phone] VITRECTOMY - PARS PLANA 25 GAUGE / MEMBRANE PEEL / SILICONE OIL AND ALL ASSOCIATED PROCEDURES RIGHT EYE 04/28/2024 8:00 AM CDT Office Visit Department of Ophthalmology in [place], [place] [address] [place] [phone] Prakash Graham M.D. [address] [place] [phone] 05/05/2024 1:15 PM CDT Ancillary Procedure Department of Ophthalmology in [place], [place] [address] [place] [phone] Prakash Graham M.D. [address] [place] [phone] 05/05/2024 1:45 PM CDT Office Visit Department of Ophthalmology in [place], [place] [address] [place] [phone] Prakash Graham M.D. [address] [place] [phone] 06/02/2024 8:15 AM CDT Ancillary Procedure Department of Ophthalmology in [place], [place] [address] [place] [phone] Prakash Graham M.D. [address] [place] [phone] 06/02/2024 8:45 AM CDT Ancillary Procedure Department of Ophthalmology in [address] [phone] Prakash Graham M.D. [address] [place] [phone] 06/02/2024 9:00 AM CDT Office Visit Department of Ophthalmology in [address] [phone] Prakash Graham M.D. [address] [place] [phone] Scheduled Procedures Name Priority Associated Diagnoses Date/Ti me VITRECTOMY - PARS PLANA 25 GAUGE Panuveitis Right Necrosis Retinal Acute Right 04/27/2024 10:02 AM CDT documented as of this encounter Procedures Procedure Name Priority Date/Time Associated Diagnosis Comments OPHTHALMOLOGY IMAGE EXAM Routine 02/20/2024 12:05 AM CDT documented in this encounter Results * Eyes US-Eye [id number] Image Exam (02/20/2024 12:05 AM CDT) Narrative [...] on filedocumented in this encounter Care Teams Park Services Specialist Relationship Specialty Start Date End Date Elsewhere, Pcp PCP - General Internal Medicine 05/29/19 documented as of this encounter
--- OUTSIDE RECORDS SUMMARY | 2024-03-31 18:07 | XMS_ITS | Encounter Summary ---
Author Organization [facility] Address [address] [place] [address] Care Team Providers Care Audograph Operator Name Role Phone Elsewhere, Pcp Primary [...] = 0.6 oz pur e alcohol) [facility] Utilities Answer Date Recorded In the past 12 months has [employer] electric, gas, oil, or water company threatened [...] How often do you attend protestant or muslim serv ices? Never 06/27/2020 Do [...] medical care, and heating? Somewhat hard 06/27/2020 [facility] - Occupational Stress Questionnaire Answer Date [...] CDT Comprehensive Visit Preoperative Evaluation Center in [place], [place] [address] [place] [phone] Prakash Graham M.D. [address] [place] [phone] 04/14/2024 1:30 PM CDT Ancillary Procedure Department of Ophthalmology in [address] [phone] Kenya Garza M.D. [address] [place] [phone] 04/14/2024 2:10 PM CDT Ancillary Procedure Department of Ophthalmology in [address] [phone] Prakash Graham M.D. [address] [place] [phone] 04/14/2024 2:30 PM CDT Office Visit Department of Ophthalmology in [address] [address] Prakash Graham M.D. [address] [place] [phone] 04/16/2024 12:30 PM CDT Ancillary Procedure Department of Ophthalmology in [address] [phone] Prakash Graham M.D. [address] [place] [phone] 04/16/2024 1:00 PM CDT Ancillary Procedure Department of Ophthalmology in [place], [place] [address] [place] [phone] Kenya Garza M.D. [address] [place] [phone] 04/16/2024 2:00 PM CDT Ancillary Procedure Department of Ophthalmology in [place], [place] [address] [place] [phone] Kenya Garza M.D. [address] [place] [phone] 04/16/2024 2:30 PM CDT Office Visit Department of Ophthalmology in [place], [place] [address] [place] [phone] Kenya Garza M.D. [address] [place] [phone] 04/27/2024 10:02 AM CDT Hospital En[facility] OR [facility] [place] [phone] Prakash Graham M.D. [address] [place] [phone] 04/27/2024 10:02 AM CDT - 04/27/2024 11:45 AM CDT Surgery [facility] [place] [phone] Prakash Graham M.D. [address] [place] [phone] VITRECTOMY - PARS PLANA 25 GAUGE / MEMBRANE PEEL / SILICONE OIL AND ALL ASSOCIATED PROCEDURES RIGHT EYE 04/28/2024 8:00 AM CDT Office Visit Department of Ophthalmology in [place], [place] [address] [place] [phone] Prakash Graham M.D. [address] [place] [phone] 05/05/2024 1:15 PM CDT Ancillary Procedure Department of Ophthalmology in [place], [place] [address] [place] [phone] Prakash Graham M.D. [address] [place] [phone] 05/05/2024 1:45 PM CDT Office Visit Department of Ophthalmology in [place], [place] [address] [place] [phone] Prakash Graham M.D. [address] [place] [phone] 06/02/2024 8:15 AM CDT Ancillary Procedure Department of Ophthalmology in [place], [place] [address] [place] [phone] Prakash Graham M.D. [address] [place] [phone] 06/02/2024 8:45 AM CDT Ancillary Procedure Department of Ophthalmology in [address] [phone] Prakash Graham M.D. [address] [place] [phone] 06/02/2024 9:00 AM CDT Office Visit Department of Ophthalmology in [address] [phone] Prakash Graham M.D. [address] [place] [phone] Scheduled Procedures Name Priority Associated Diagnoses Date/Ti [...] on filedocumented in this encounter Care Teams Audograph Operator Relationship Specialty Start Date End Date Elsewhere, Pcp PCP - General Internal Medicine 05/29/19 documented as of this encounter
--- OUTSIDE RECORDS SUMMARY | 2024-03-31 18:08 | XMS_ITS | Encounter Summary ---
Author Organization [facility] Address [address] [place] [address] Care Team Providers Care Records And Information Manager Name Role Phone Elsewhere, Pcp Primary Care Provider Unavailabl e Reason for Referral * Outpatient (Routine) - Closed Specialty Diagnoses / Procedures Referred By Apolinar lopez Referred To Contact Ophthalmology Diagnoses Panuveitis Right Necrosis Retinal Acute Right Kenya Garza M.D. [address] [place] [phone] [facility] Referral ID Status Reason Start Date Expiration Date Visits Re quested Visits Authorized [id number] Closed 01/23/2024 07/24/2025 1 1 Reason for Visit * Outpatient (Routine) - Closed Specialty Diagnoses / Procedures Referred By Apolinar lopez Referred To Contact Ophthalmology Kenya Garza M.D. [address] [place] [phone] [facility] Referral ID Status Reason Start Date Expiration Date Visits Re quested Visits Authorized [id number] Closed 01/01/2024 07/02/2025 1 1 Encounter Details Date Type Department Care Team (Latest Contact Info) Description 01/23/2024 12:00 PM CDT Office Visit Department of Ophthalmology in [place], [place] [address] [place] [phone] Kenya Garza M.D. [address] [place] [phone] Panuveitis Right (Primary Dx); Necrosis Retinal Acute Right Social History Tobacco Use Types Packs/Day Years Used Date Smoking Tobacco: Light Smoker Cigarettes 0.5 44.1 Started: 02/26/1980 Smokeless Tobacco: Never Comments:On again off again Alcohol Use Standard Drinks/Week Comments Yes 0 (1 standard drink = 0.6 oz pur e alcohol) [facility] Utilities Answer Date Recorded In [...] How often do you attend buddhism or pentecostal serv ices? Never 06/27/2020 Do [...] heating? Somewhat hard 06/27/2020 [facility] [place] of Occupat ional Health - Occupational Stress [...] your living situation today? I [facility] place to live 11/05/2023 Education Answer [...] 02/20/24 Call with questions or new symptoms: [phone] documented in this encounter Progress Notes * [...] with tobramycin drops without improvement. She saw historic clothing and costume maker Dr. Daisy Ivy on 10/23/23. 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 In August 2023, she was sent from an infusion center to [place] emergency department where shewas found to have oxygen saturations of 78%. CT imaging showed worsening bilateral ground glass opacities. A CT scan was negative for pulmonary embolism. She was transferred to [facility] for additional pulmonology care. On [...] three times in the past three months: [place] (09/02/23 for hypercalcemiaand acute kidney injury - had CT chest/abdomen/pelvis to assess for malignancy), [facility] again. Each time she saw [...] plans to monitor. (Her oncologist is at [facility] MEDICATIONS Prednisolone every hour while awake [...] shallow retinal detachment. No T sign noted. [facility] Macula OCT of the right eye shows [...] membranes. Possible posterior thickening. No T sign. 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 [facility] PLAN: It has been 21 days since [...] CDT Comprehensive Visit Preoperative Evaluation Center in [place], [place] [address] [place] [address] Prakash Graham M.D. [address] [place] [phone] 04/14/2024 1:30 PM CDT Ancillary Procedure Department of Ophthalmology in [place], [place] [address] [place] [phone] Kenya Garza M.D. [address] [place] [phone] 04/14/2024 2:10 PM CDT Ancillary Procedure Department of Ophthalmology in [place], [place] [address] [place] [phone] Prakash Graham M.D. [address] [place] [phone] 04/14/2024 2:30 PM CDT Office Visit Department of Ophthalmology in [place], [place] [address] [place] [phone] Prakash Graham M.D. [address] [place] [phone] 04/16/2024 12:30 PM CDT Ancillary Procedure Department of Ophthalmology in [place], [place] [address] [place] [phone] Prakash Graham M.D. [address] [place] [phone] 04/16/2024 1:00 PM CDT Ancillary Procedure Department of Ophthalmology in [place], [place] [address] [place] [phone] Kenya Garza M.D. [address] [place] [phone] 04/16/2024 2:00 PM CDT Ancillary Procedure Department of Ophthalmology in [place], [place] [address] [place] [phone] Kenya Garza M.D. [address] [place] [phone] 04/16/2024 2:30 PM CDT Office Visit Department of Ophthalmology in [place], [place] [address] [place] [phone] Kenya Garza M.D. [address] [place] [phone] 04/27/2024 10:02 AM CDT Hospital Encounter [facility] OR [facility] [place] [phone] Prakash Graham M.D. [address] [place] [phone] 04/27/2024 10:02 AM CDT - 04/27/2024 11:45 AM CDT Surgery [facility] OR [facility] [address] [place] [phone] Prakash Graham M.D. [address] [place] [phone] VITRECTOMY - PARS PLANA 25 GAUGE / MEMBRANE PEEL / SILICONE OIL AND ALL ASSOCIATED PROCEDURES RIGHT EYE 04/28/2024 8:00 AM CDT Office Visit Department of Ophthalmology in [place], [place] [address] [place] [phone] Prakash Graham M.D. [address] [place] [phone] 05/05/2024 1:15 PM CDT Ancillary Procedure Department of Ophthalmology in [place], [place] [address] [place] [phone] Prakash Graham M.D. [address] [place] [phone] 05/05/2024 1:45 PM CDT Office Visit Department of Ophthalmology in [place], [place] [address] [place] [phone] Prakash Graham M.D. [address] [place] [phone] 06/02/2024 8:15 AM CDT Ancillary Procedure Department of Ophthalmology in [place], [place] [address] [place] [phone] Prakash Graham M.D. [address] [place] [phone] 06/02/2024 8:45 AM CDT Ancillary Procedure Department of Ophthalmology in [place], [place] [address] [place] [phone] Prakash Graham M.D. [address] [place] [phone] 06/02/2024 9:00 AM CDT Office Visit Department of Ophthalmology in [place], [place] [address] [place] [phone] Prakash Graham M.D. [address] [place] [phone] Scheduled Procedures Name Priority Associated Diagnoses Date/Ti [...] Garza M.D. OPHTH ULTRASOUND Performing Organization Address City/[facility]/ZIP Co de Phone Number OPHTHALMOLGY NON-IMAGING ORDERS documented in this encounter Visit Diagnoses Diagnosis Panuveitis Right- Primary Necrosis Retinal Acute Right Panuveitis Right Necrosis Retinal Acute Right Panuveitis Right Necrosis Retinal Acute Right Panuveitis Right Necrosis Retinal Acute Right documented in this encounter Care Teams Records And Information Manager Relationship Specialty Start Date End Date Elsewhere, Pcp PCP - General Internal Medicine 05/29/19 documented as of this encounter
--- OUTSIDE RECORDS SUMMARY | 2024-03-31 18:08 | XMS_ITS | Encounter Summary ---
Author Organization [facility] Address [address] [place] [address] Care Team Providers Care Lamp Shade Sewer Name Role Phone Elsewhere, Pcp Primary Care Provider Unavailabl e Encounter Details Date Type Department Care Team (Latest Contact Info) Description 01/01/2024 12:30 PM CERTIFIED TECHNICIAN SPECIALIST Ancillary Procedure Department of Ophthalmology in [place], [place] [address] [place] [address] Kenya Garza M.D. [address] [place] [address] Panuveitis Right Social History Tobacco Use Types Packs/Day Years Used Date Smoking Tobacco: Light Smoker Cigarettes 0.5 44.1 Started: 02/26/1980 Smokeless Tobacco: Never Comments:On again off again Alcohol Use Standard Drinks/Week Comments Yes 0 (1 standard drink = 0.6 oz pur e alcohol) [facility] Utilities Answer Date Recorded In the past 12 months has [employer], gas, oil, or water [employer] threatened to shut off services in your home? No 11/05/2023 Social Connection and Isolation Panel [NHANES] A nswer Date Recorded In a typical week, how many times do you talk on the phone with family, friends, or neighbors? Once a week 06/27/2020 How often do you get together with friends or re latives? Never 06/27/2020 How often do you attend shinto or congregation serv ices? Never 06/27/2020 Do you belong [...] medical care, and heating? Somewhat hard 06/27/2020 [facility] [place] of Occupat ional Health - Occupational Stress [...] CDT Comprehensive Visit Preoperative Evaluation Center in [place], [place] [address] [place] [address] Prakash Graham M.D. [address] [place] [phone] 04/14/2024 1:30 PM CDT Ancillary Procedure Department of Ophthalmology in [place], [place] [address] [place] [phone] Kenya Garza M.D. [address] [place] [phone] 04/14/2024 2:10 PM CDT Ancillary Procedure Department of Ophthalmology in [place], [place] [address] [place] [phone] Prakash Graham M.D. [address] [place] [phone] 04/14/2024 2:30 PM CDT Office Visit Department of Ophthalmology in [place], [place] [address] [place] [phone] Prakash Graham M.D. [address] [place] [phone] 04/16/2024 12:30 PM CDT Ancillary Procedure Department of Ophthalmology in [place], [place] [address] [place] [phone] Prakash Graham M.D. [address] [place] [phone] 04/16/2024 1:00 PM CDT Ancillary Procedure Department of Ophthalmology in [place], [place] [address] [place] [phone] Kenya Garza M.D. [address] [place] [phone] 04/16/2024 2:00 PM CDT Ancillary Procedure Department of Ophthalmology in [place], [place] [address] [place] [phone] Kenya Garza M.D. [address] [place] [phone] 04/16/2024 2:30 PM CDT Office Visit Department of Ophthalmology in [place], [place] [address] [place] [phone] Kenya Garza M.D. [address] [place] [phone] 04/27/2024 10:02 AM CDT Hospital Encounter [facility] OR [facility] [place] [phone] Prakash Graham M.D. [address] [place] [phone] 04/27/2024 10:02 AM CDT - 04/27/2024 11:45 AM CDT Surgery T [facility] OR [address] [place] [phone] Prakash Graham M.D. [address] [place] [phone] VITRECTOMY - PARS PLANA 25 GAUGE / MEMBRANE PEEL / SILICONE OIL AND ALL ASSOCIATED PROCEDURES RIGHT EYE 04/28/2024 8:00 AM CDT Office Visit Department of Ophthalmology in [place], [place] [address] [place] [phone] Prakash Graham M.D. [address] [place] [phone] 05/05/2024 1:15 PM CDT Ancillary Procedure Department of Ophthalmology in [place], [place] [address] [place] [phone] Prakash Graham M.D. [address] [place] [phone] 05/05/2024 1:45 PM CDT Office Visit Department of Ophthalmology in [place], [place] [address] [place] [phone] Prakash Graham M.D. [address] [place] [phone] 06/02/2024 8:15 AM CDT Ancillary Procedure Department of Ophthalmology in [address] [phone] Prakash Graham M.D. [address] [place] [phone] 06/02/2024 8:45 AM CDT Ancillary Procedure Department of Ophthalmology in [address] [phone] Prakash Graham M.D. [address] [place] [phone] 06/02/2024 9:00 AM CDT Office Visit Department of Ophthalmology in [address] [place] [address] Prakash Graham M.D. [address] [place] [address] Scheduled Procedures Name Priority Associated Diagnoses Date/Ti me VITRECTOMY - PARS PLANA 25 GAUGE Panuveitis Right Necrosis Retinal Acute Right 04/27/2024 10:02 AM CDT documented as of this encounter Procedures Procedure Name Priority Date/Time Associated Diagnosis Comments OPTICAL COHERENCE TOMOGRAPHY - MACULA/RETINA - OU - BOTH EYES Routine 01/01/2024 12:34 PM CERTIFIED TECHNICIAN SPECIALIST Panuveitis Right documented in this encounter Results * Optical Coherence Tomography - Macula/Retina - OU - Both Eyes (01/01/2024 12:34 PM CERTIFIED TECHNICIAN SPECIALIST) CMT L Microns 247 um OPH THALMOLOGY IMAGING EXAM Narrative OPHTHALMOLOGY IMAGING EXAM - 01/01/2024 12:45 PM CERTIFIED TECHNICIAN SPECIALIST Right Eye Reliability was good. OCT [...] Right documented in this encounter Care Teams Lamp Shade Sewer Relationship Specialty Start Date End Date Elsewhere, Pcp PCP - General Internal Medicine 05/29/19 documented as of this encounter
--- OUTSIDE RECORDS SUMMARY | 2024-03-31 18:08 | XMS_ITS | Encounter Summary ---
Author Organization [facility] Address [address] [place] [address] Care Team Providers Care Landscape Architect Name Role Phone Elsewhere, Pcp Primary Care Provider Unavailabl e Reason for Referral * Outpatient (Routine) - Closed Specialty Diagnoses / Procedures Referred By Contac t Referred To Contact Cardiovascular Disease Diagnoses Coronary Artery Disease (Unspecified) Katerine Bashir M.D. [address] [place] [address] [facility] Referral ID Status Reason Start Date Expiration Date Visits Re quested Visits Authorized [id number] Closed 02/10/2019 02/10/2020 3 3 Encounter Details Date Type Department Care Team (Late st Contact Info) Description 02/10/2019 [facility] [address] [place] [address] Katerine Bashir M.D. [address] [place] [address] Coronary Artery Disease (Unspecified) (Primary [...] CDT Comprehensive Visit Preoperative Evaluation Center in [place], [place] [address] [place] [phone] Prakash Graham M.D. [address] [place] [phone] 04/14/2024 1:30 PM CDT Ancillary Procedure Department of Ophthalmology in [place], [place] [address] [place] [phone] Kenya Garza M.D. [address] [place] [phone] 04/14/2024 2:10 PM CDT Ancillary Procedure Department of Ophthalmology in [place], [place] [address] [place] [phone] Prakash Graham M.D. [address] [place] [phone] 04/14/2024 2:30 PM CDT Office Visit Department of Ophthalmology in [place], [place] [address] [place] [phone] Prakash Graham M.D. [address] [place] [phone] 04/16/2024 12:30 PM CDT Ancillary Procedure Department of Ophthalmology in [place], [place] [address] [place] [phone] Prakash Graham M.D. [address] [place] [phone] 04/16/2024 1:00 PM CDT Ancillary Procedure Department of Ophthalmology in [place], [place] [address] [place] [phone] Kenya Garza M.D. [address] [place] [phone] 04/16/2024 2:00 PM CDT Ancillary Procedure Department of Ophthalmology in [place], [place] [address] [place] [phone] Kenya Garza M.D. [address] [place] [phone] 04/16/2024 2:30 PM CDT Office Visit Department of Ophthalmology in [place], [place] [address] [place] [phone] Kenya Garza M.D. [address] [place] [phone] 04/27/2024 10:02 AM CDT Hospital Encounter [facility] OR [address] [place] [phone] Prakash Graham M.D. [address] [place] [phone] 04/27/2024 10:02 AM CDT - 04/27/2024 11:45 AM CDT Surgery [facility] OR [facility] access hospital[address] [place] [phone] Prakash Graham M.D. [address] [place] [phone] VITRECTOMY - PARS PLANA 25 GAUGE / MEMBRANE PEEL / SILICONE OIL AND ALL ASSOCIATED PROCEDURES RIGHT EYE 04/28/2024 8:00 AM CDT Office Visit Department of Ophthalmology in [place], [place] [address] [place] [phone] Prakash Graham M.D. [address] [place] [phone] 05/05/2024 1:15 PM CDT Ancillary Procedure Department of Ophthalmology in [place], [place] [address] [place] [phone] Prakash Graham M.D. [address] [place] [phone] 05/05/2024 1:45 PM CDT Office Visit Department of Ophthalmology in [place], [place] [address] [place] [phone] Prakash Graham M.D. [address] [place] [phone] 06/02/2024 8:15 AM CDT Ancillary Procedure Department of Ophthalmology in [place], [place] [address] [place] [phone] Prakash Graham M.D. [address] [place] [phone] 06/02/2024 8:45 AM CDT Ancillary Procedure Department of Ophthalmology in [place], [place] [address] [place] [phone] Prakash Graham M.D. [address] [place] [phone] 06/02/2024 9:00 AM CDT Office Visit Department of Ophthalmology in [address] [phone] Prakash Graham M.D. [address] [place] [phone] Scheduled Procedures Name Priority Associated Diagnoses Date/Ti [...] documented as of this encounter Care Teams Landscape Architect Relationship Specialty Start Date End Date Elsewhere, Pcp PCP - General Internal Medicine 05/29/19 documented as of this encounter
--- OUTSIDE RECORDS SUMMARY | 2024-03-31 18:08 | XMS_ITS | Encounter Summary ---
Author Organization [facility] Address [address] [place] [address] Care Team Providers Care Chemist Water Purification Name Role Phone Elsewhere, Pcp Primary Care Provider Unavailabl e Reason for Referral * MRI/CAT/PET Scan (Routine) - Closed Specialty Diagnoses / Procedures Referred By Apolinar lopez Referred To Contact Radiology Diagnoses Posterior Reversible Encephalopathy Syndrome Procedures MR Brain without and with IV Contrast Piter Baez M.D. [address] [place] [address] [facility] Referral ID Status Reason Start Date Expiration Date Visits Re quested Visits Authorized [id number] Closed 02/03/2024 10/27/2024 1 1 Reason for Visit * Reason Onset Date Comments Pre-visit Testing Orders 01/31/2024 Encounter Details Date Type Department Care Team (Latest Contact Info) Description 01/31/2024 Clinical Communication Department of Neurology in [place], [place] [address] [place] [phone] Piter Baez M.D. [address] [place] [phone] Pre-visit Testing Orders Social History Tobacco Use [...] th e electric, gas, oil, or water [employer] threatened to shut off services in your home? No 11/05/2023 Social Connection and Isolation Panel [NHANES] A nswer Date Recorded In a typical week, how many times do you talk on the phone with family, friends, or neighbors? Once a week 06/27/2020 How often do you get together with friends or re latives? Never 06/27/2020 How often do you attend evangelical or lutheran serv ices? Never 06/27/2020 Do you belong [...] and heating? Somewhat hard 06/27/2020 [facility] of Occupat ional [facility] - Occupational Stress Questionnaire Answer [...] your living situation today? I [facility] a [facility] to [facility] 11/05/2023 Education [...] CDT Comprehensive Visit Preoperative Evaluation Center in [place], [place] [address] [place] [phone] Prakash Graham M.D. [address] [place] [phone] 04/14/2024 1:30 PM CDT Ancillary Procedure Department of Ophthalmology in [place], [place] [address] [place] [phone] Kenya Garza M.D. [address] [place] [phone] 04/14/2024 2:10 PM CDT Ancillary Procedure Department of Ophthalmology in [place], [place] [address] [place] [phone] Prakash Graham M.D. [address] [place] [phone] 04/14/2024 2:30 PM CDT Office Visit Department of Ophthalmology in [place], [place] [address] [place] [phone] Prakash Graham M.D. [address] [place] [phone] 04/16/2024 12:30 PM CDT Ancillary Procedure Department of Ophthalmology in [place], [place] [address] [place] [phone] Prakash Graham M.D. [address] [place] [phone] 04/16/2024 1:00 PM CDT Ancillary Procedure Department of Ophthalmology in [place], [place] [address] [place] [phone] Kenya Garza M.D. [address] [place] [phone] 04/16/2024 2:00 PM CDT Ancillary Procedure Department of Ophthalmology in [place], [place] [address] [place] [phone] Kenya Garza M.D. [address] [place] [phone] 04/16/2024 2:30 PM CDT Office Visit Department of Ophthalmology in [place], [place] [address] [place] [phone] Kenya Garza M.D. [address] [place] [phone] 04/27/2024 10:02 AM CDT Hospital En[facility] [place] [address] [place] [phone] Prakash Graham M.D. [address] [place] [phone] 04/27/2024 10:02 AM CDT - 04/27/2024 11:45 AM CDT Surgery [facility] [place] [address] [place] [phone] Prakash Graham M.D. [address] [place] [phone] VITRECTOMY - PARS PLANA 25 GAUGE / MEMBRANE PEEL / SILICONE OIL AND ALL ASSOCIATED PROCEDURES RIGHT EYE 04/28/2024 8:00 AM CDT Office Visit Department of Ophthalmology in [place], [place] [address] [place] [phone] Prakash Graham M.D. [address] [place] [phone] 05/05/2024 1:15 PM CDT Ancillary Procedure Department of Ophthalmology in [place], [place] [address] [place] [phone] Prakash Graham M.D. [address] [place] [phone] 05/05/2024 1:45 PM CDT Office Visit Department of Ophthalmology in [place], [place] [address] [place] [phone] Prakash Graham M.D. [address] [place] [phone] 06/02/2024 8:15 AM CDT Ancillary Procedure Department of Ophthalmology in [place], [place] [address] [place] [phone] Prakash Graham M.D. [address] [place] [phone] 06/02/2024 8:45 AM CDT Ancillary Procedure Department of Ophthalmology in [place], [place] [address] [place] [phone] Prakash Graham M.D. [address] [place] [phone] 06/02/2024 9:00 AM CDT Office Visit Department of Ophthalmology in [place], [place] [address] [place] [phone] Prakash Graham M.D. [address] [place] [phone] Scheduled Procedures Name Priority Associated Diagnoses Date/Ti me VITRECTOMY - PARS PLANA 25 GAUGE Panuveitis Right Necrosis Retinal Acute Right 04/27/2024 10:02 AM CDT documented as of this encounter Results * MR Brain without and with IV Contrast (02/20/2024 4:08 PM CDT) Anatomical Region Laterality Modality Head, Brain, Neuroradiology [facility], Neuroradiology [facility], Neuroradiology [facility] N/A Magnetic Resonance Impressions 02/21/2024 [...] Right documented in this encounter Care Teams Chemist Water Purification Relationship Specialty Start Date End Date Elsewhere, Pcp PCP - General Internal Medicine 05/29/19 documented as of this encounter
--- OUTSIDE RECORDS SUMMARY | 2024-03-31 18:08 | XMS_ITS | Encounter Summary ---
Author Organization [facility] Address [address] [place] [address] Care Team Providers Care Supervisor Special Services Name Role Phone Elsewhere, Pcp Primary Care Provider Unavailabl e Reason for Referral * Outpatient (Routine) - Closed Specialty Diagnoses / Procedures Referred By Contac t Referred To Contact Cardiovascular Disease Diagnoses Coronary Artery Disease (Unspecified) Katerine Bashir M.D. [address] [place] [address] [facility] Referral ID Status Reason Start Date Expiration Date Visits Re quested Visits Authorized [id number] Closed 02/12/2019 02/12/2020 1 1 Encounter Details Date Type Department Care Team (Late st Contact Info) Description 02/12/2019 [facility] [address] [place] [address] Katerine Bashir M.D. [address] [place] [address] Coronary Artery Disease (Unspecified) (Primary [...] CDT Comprehensive Visit Preoperative Evaluation Center in [place], [place] [address] [place] [phone] Prakash Graham M.D. [address] [place] [phone] 04/14/2024 1:30 PM CDT Ancillary Procedure Department of Ophthalmology in [place], [place] [address] [place] [phone] Kenya Garza M.D. [address] [place] [phone] 04/14/2024 2:10 PM CDT Ancillary Procedure Department of Ophthalmology in [place], [place] [address] [place] [phone] Prakash Graham M.D. [address] [place] [phone] 04/14/2024 2:30 PM CDT Office Visit Department of Ophthalmology in [place], [place] [address] [place] [phone] Prakash Graham M.D. [address] [place] [phone] 04/16/2024 12:30 PM CDT Ancillary Procedure Department of Ophthalmology in [place], [place] [address] [place] [phone] Prakash Graham M.D. [address] [place] [phone] 04/16/2024 1:00 PM CDT Ancillary Procedure Department of Ophthalmology in [place], [place] [address] [place] [phone] Kenya Garza M.D. [address] [place] [phone] 04/16/2024 2:00 PM CDT Ancillary Procedure Department of Ophthalmology in [place], [place] [address] [place] [phone] Kenya Garza M.D. [address] [place] [phone] 04/16/2024 2:30 PM CDT Office Visit Department of Ophthalmology in [place], [place] [address] [place] [phone] Kenya Garza M.D. [address] [place] [phone] 04/27/2024 10:02 AM CDT Hospital Encounter [facility] [place] [address] [place] [phone] Prakash Graham M.D. [address] [place] [phone] 04/27/2024 10:02 AM CDT - 04/27/2024 11:45 AM CDT Surgery [facility] [address] [place] [phone] Prakash Graham M.D. [address] [place] [phone] VITRECTOMY - PARS PLANA 25 GAUGE / MEMBRANE PEEL / SILICONE OIL AND ALL ASSOCIATED PROCEDURES RIGHT EYE 04/28/2024 8:00 AM CDT Office Visit Department of Ophthalmology in [place], [place] [address] [place] [phone] Prakash Graham M.D. [address] [place] [phone] 05/05/2024 1:15 PM CDT Ancillary Procedure Department of Ophthalmology in [place], [place] [address] [place] [phone] Prakash Graham M.D. [address] [place] [phone] 05/05/2024 1:45 PM CDT Office Visit Department of Ophthalmology in [place], [place] [address] [place] [phone] Prakash Graham M.D. [address] [place] [phone] 06/02/2024 8:15 AM CDT Ancillary Procedure Department of Ophthalmology in [place], [place] [address] [place] [phone] Prakash Graham M.D. [address] [place] [phone] 06/02/2024 8:45 AM CDT Ancillary Procedure Department of Ophthalmology in [place], [place] [address] [place] [phone] Prakash Graham M.D. [address] [place] [phone] 06/02/2024 9:00 AM CDT Office Visit Department of Ophthalmology in [address] [phone] Prakash Graham M.D. [address] [place] [phone] Scheduled Procedures Name Priority Associated Diagnoses Date/Ti [...] documented as of this encounter Care Teams Supervisor Special Services Relationship Specialty Start Date End Date Elsewhere, Pcp PCP - General Internal Medicine 05/29/19 documented as of this encounter
--- OUTSIDE RECORDS SUMMARY | 2024-03-31 18:08 | XMS_ITS | Encounter Summary ---
Author Organization [facility] Address [address] [place] [address] Care Team Providers Care Salon Receptionist Name Role Phone Elsewhere, Pcp Primary Care [...] drink = 0.6 oz pur e alcohol) [facility] Utilities Answer Date Recorded In the past 12 months has th [employer], gas, oil, or water company threatened [...] How often do you attend religious or congregational serv ices? Never 06/27/2020 Do [...] medical care, and heating? Somewhat hard 06/27/2020 [facility] of Occupat ional [facility] - Occupational Stress Questionnaire Answer Date Recorded [...] living situation today? I have a [facility] place to live 11/05/2023 Education Answer [...] CDT Comprehensive Visit Preoperative Evaluation Center in [place], [place] [address] [place] [phone] Prakash Graham M.D. [address] [place] [phone] 04/14/2024 1:30 PM CDT Ancillary Procedure Department of Ophthalmology in [place], [place] [address] [place] [phone] Kenya Garza M.D. [address] [place] [phone] 04/14/2024 2:10 PM CDT Ancillary Procedure Department of Ophthalmology in [place], [place] [address] [place] [phone] Prakash Graham M.D. [address] [place] [phone] 04/14/2024 2:30 PM CDT Office Visit Department of Ophthalmology in [address] [phone] Prakash Graham M.D. [address] [place] [phone] 04/16/2024 12:30 PM CDT Ancillary Procedure Department of Ophthalmology in [address] [phone] Prakash Graham M.D. [address] [place] [phone] 04/16/2024 1:00 PM CDT Ancillary Procedure Department of Ophthalmology in [place], [place] [address] [place] [phone] Kenya Garza M.D. [address] [place] [phone] 04/16/2024 2:00 PM CDT Ancillary Procedure Department of Ophthalmology in [place], [place] [address] [place] [phone] Kenya Garza M.D. [address] [place] [phone] 04/16/2024 2:30 PM CDT Office Visit Department of Ophthalmology in [place], [place] [address] [place] [phone] Kenya Garza M.D. [address] [place] [phone] 04/27/2024 10:02 AM CDT Hospital Encounter [facility] [address] [place] [phone] Prakash Graham M.D. [address] [place] [phone] 04/27/2024 10:02 AM CDT - 04/27/2024 11:45 AM CDT Surgery [facility] [place] [address] [place] [phone] Prakash Graham M.D. [address] [place] [phone] VITRECTOMY - PARS PLANA 25 GAUGE / MEMBRANE PEEL / SILICONE OIL AND ALL ASSOCIATED PROCEDURES RIGHT EYE 04/28/2024 8:00 AM CDT Office Visit Department of Ophthalmology in [place], [place] [address] [place] [phone] Prakash Graham M.D. [address] [place] [phone] 05/05/2024 1:15 PM CDT Ancillary Procedure Department of Ophthalmology in [place], [place] [address] [place] [phone] Prakash Graham M.D. [address] [place] [phone] 05/05/2024 1:45 PM CDT Office Visit Department of Ophthalmology in [place], [place] [address] [place] [phone] Prakash Graham M.D. [address] [place] [phone] 06/02/2024 8:15 AM CDT Ancillary Procedure Department of Ophthalmology in [place], [place] [address] [place] [phone] Prakash Graham M.D. [address] [place] [phone] 06/02/2024 8:45 AM CDT Ancillary Procedure Department of Ophthalmology in [address] [phone] Prakash Graham M.D. [address] [place] [phone] 06/02/2024 9:00 AM CDT Office Visit Department of Ophthalmology in [place], [place] [address] [place] [phone] Prakash Graham M.D. [address] [place] [phone] Scheduled Procedures Name Priority Associated Diagnoses Date/Ti me VITRECTOMY - PARS PLANA GAUGE Panuveitis Right Necrosis Retinal Acute Right 04/27/2024 10:02 AM CDT documented as of this encounter Procedures Procedure Name Priority Date/Time Associated Diagnosis Comments OPHTHALMOLOGY IMAGE EXAM Routine 01/01/2024 12:00 AM [facility]NAGER [facility] documented in this encounter Results * Eyes Spectralis OCT-Ophthalmology Image Exam (01/01/2024 12:00 AM MANAGER CLINICAL PHARMACY) Narrative [facility] - 01/01/2024 12:37 PM MANAGER CLINICAL PHARMACY This order has been created and auto-finalized to support the import of images acquired without order. The clinical documentation to support these images can be found on the encounter that produced images. Provider Not In System IMG NON RAD IMAGI NG PROCEDURES [facility] NA documented in this encounter Visit Diagnoses Not on filedocumented in this encounter Care Teams Salon Receptionist Relationship Specialty Start Date End Date Elsewhere, Pcp PCP - General Internal Medicine 05/29/19 documented as of this encounter
--- OUTSIDE RECORDS SUMMARY | 2024-03-31 18:08 | XMS_ITS | Encounter Summary ---
Author Organization [facility] Address [address] [place] [address] Care Team Providers Care Lab Rn Name Role Phone Elsewhere, Pcp Primary Care Provider Unavailabl e Reason for Referral * Outpatient (Routine) - Closed Specialty Diagnoses / Procedures Referred By Apolinar lopez Referred To Contact Ophthalmology Kenya Garza M.D. [address] [place] [address] [facility] Referral ID Status Reason Start Date Expiration Date Visits Re quested Visits Authorized [id number] Closed 01/01/2024 07/02/2025 1 1 T DESK AGENT Reason for Visit * Outpatient (Routine) - Closed Specialty Diagnoses / Procedures Referred By Apolinar lopez Referred To Contact Ophthalmology Diagnoses Panuveitis Right Kenya Garza M.D. [address] [place] [phone] [facility] Referral ID Status Reason Start Date Expiration Date Visits Re quested Visits Authorized [id number] Closed 12/17/2023 06/17/2025 1 1 Encounter Details Date Type Department Care Team (Latest Contact Info) Description 01/01/2024 12:45 PM FRONT DESK AGENT Office Visit Department of Ophthalmology in [place], [place] [address] [place] [phone] Kenya Garza M.D. [address] [place] [phone] Necrosis Retinal Acute Right (Primary Dx); Panuveitis Right Social History Tobacco Use Types Packs/Day Years Used Date Smoking Tobacco: Light Smoker Cigarettes 0.5 44.1 Started: 02/26/1980 Smokeless Tobacco: Never Comments:On again off again Alcohol Use Standard Drinks/Week Comments Yes 0 (1 standard drink = 0.6 oz pur e alcohol) [facility] Utilities Answer Date Recorded In the [...] How often do you attend temple or latter day serv ices? Never 06/27/2020 [...] medical care, and heating? Somewhat hard 06/27/2020 [facility] of Occupat ional Health - Occupational Stress [...] your living situation today? I have a [facility] place to live 11/05/2023 Education [...] Kenya Garza M.D. - 01/01/2024 12:45 PM FRONT DESK AGENT Please continue the oral valacyclovir medication, 1000 [...] 01/23/24 Call with questions or new symptoms: [phone] T DESK AGENT documented in this encounter Progress Notes * [...] with tobramycin drops without improvement. She saw paraffin plant operator Dr. Daisy Ivy on 10/23/23. 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 In August 2023, she was sent from an infusion center to [facility] department where shewas found to have [...] three times in the past three months: [facility] (09/02/23 for hypercalcemiaand acute kidney injury - [...] plans to monitor. (Her oncologist is at [facility] MEDICATIONS Prednisolone every hour while awake right [...] shallow retinal detachment. No T sign noted. [facility] Macula OCT of the right eye shows [...] membranes. Possible posterior thickening. No T sign. 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 [address] [place] [phone] 04/14/2024 1:30 PM CDT Ancillary Procedure Department of Ophthalmology in [place], [place] [address] [place] [phone] Kenya Garza M.D. [address] [place] [phone] 04/14/2024 2:10 PM CDT Ancillary Procedure Department of Ophthalmology in [address] [phone] Prakash Graham M.D. [address] [place] [phone] 04/14/2024 2:30 PM CDT Office Visit Department of Ophthalmology in [address] [phone] Prakash Graham M.D. [address] [place] [phone] 04/16/2024 12:30 PM CDT Ancillary Procedure Department of Ophthalmology in [place], [place] [address] [place] [phone] Prakash Graham M.D. [address] [place] [phone] 04/16/2024 1:00 PM CDT Ancillary Procedure Department of Ophthalmology in [address] [phone] Kenya Garza M.D. [address] [place] [phone] 04/16/2024 2:00 PM CDT Ancillary Procedure Department of Ophthalmology in [place], [place] [address] [place] [phone] Kenya Garza M.D. [address] [place] [phone] 04/16/2024 2:30 PM CDT Office Visit Department of Ophthalmology in [place], [place] [address] [place] [phone] Kenya Garza M.D. [address] [place] [phone] 04/27/2024 10:02 AM CDT Hospital Encounter [facility] [place] [address] [place] [phone] Prakash Graham M.D. [address] [place] [phone] 04/27/2024 10:02 AM CDT - 04/27/2024 11:45 AM CDT Surgery [facility] [place] [address] [place] [phone] Prakash Graham M.D. [address] [place] [phone] VITRECTOMY - PARS PLANA 25 GAUGE / MEMBRANE PEEL / SILICONE OIL AND ALL ASSOCIATED PROCEDURES RIGHT EYE 04/28/2024 8:00 AM CDT Office Visit Department of Ophthalmology in [place], [place] [address] [place] [phone] Prakash Graham M.D. [address] [place] [phone] 05/05/2024 1:15 PM CDT Ancillary Procedure Department of Ophthalmology in [place], [place] [address] [place] [phone] Prakash Graham M.D. [address] [place] [phone] 05/05/2024 1:45 PM CDT Office Visit Department of Ophthalmology in [place], [place] [address] [place] [phone] Prakash Graham M.D. [address] [place] [phone] 06/02/2024 8:15 AM CDT Ancillary Procedure Department of Ophthalmology in [place], [place] [address] [place] [phone] Prakash Graham M.D. [address] [place] [phone] 06/02/2024 8:45 AM CDT Ancillary Procedure Department of Ophthalmology in [place], [place] [address] [place] [phone] Prakash Graham M.D. [address] [place] [phone] 06/02/2024 9:00 AM CDT Office Visit Department of Ophthalmology in [place], [place] [address] [place] [phone] Prakash Graham M.D. [address] [place] [phone] Scheduled Procedures Name Priority Associated Diagnoses Date/Ti [...] Right documented in this encounter Care Teams Lab Rn Relationship Specialty Start Date End Date Elsewhere, Pcp PCP - General Internal Medicine 05/29/19 documented as of this encounter
--- OUTSIDE RECORDS SUMMARY | 2024-03-31 18:08 | XMS_ITS | Encounter Summary ---
Author Organization [facility] Address [address] [place] [address] Care Team Providers Care Prison Classification Counselor Name Role Phone Elsewhere, Pcp Primary Care Provider Unavailabl e Reason for Referral * Outpatient (Routine) - Closed Specialty Diagnoses / Procedures Referred By Apolinar t Referred To Contact Neurology Diagnoses Posterior Reversible Encephalopathy Syndrome Katerine Bashir M.D. [address] [place] [address] [facility] Referral ID Status Reason Start Date Expiration Date Visits Re quested Visits Authorized [id number] Closed 01/20/2024 07/21/2025 1 1 Encounter Details Date Type Department Care Team (Latest Contact Info) Description 01/20/2024 [facility] [address] [place] [address] Katerine Bashir M.D. [address] [place] [address] Posterior Reversible Encephalopathy Syndrome (Primary Dx) Social History Tobacco Use Types Packs/Day Years Used Date Smoking Tobacco: Light Smoker Cigarettes 0.5 44.1 Started: 02/26/1980 Smokeless Tobacco: Never Comments:On again off again Alcohol Use Standard Drinks/Week Comments Yes 0 (1 standard drink = 0.6 oz pur e alcohol) [facility] Utilities Answer Date Recorded In the past 12 months has [employer], gas, oil, or water [employer] threatened to shut off services in your home? No 11/05/2023 Social Connection and Isolation Panel [NHANES] A nswer Date Recorded In a typical week, how many times do you talk on the phone with family, friends, or neighbors? Once a week 06/27/2020 How often do you get together with friends or re latives? Never 06/27/2020 How often do you attend zoroastrian or jain serv ices? Never 06/27/2020 Do [...] living situation today? I have a [facility] place to live 11/05/2023 Education Answer [...] CDT Comprehensive Visit Preoperative Evaluation Center in [place], [place] [address] [place] [phone] Prakash Graham M.D. [address] [place] [phone] 04/14/2024 1:30 PM CDT Ancillary Procedure Department of Ophthalmology in [place], [place] [address] [place] [phone] Kenya Garza M.D. [address] [place] [phone] 04/14/2024 2:10 PM CDT Ancillary Procedure Department of Ophthalmology in [place], [place] [address] [place] [phone] Prakash Graham M.D. [address] [place] [phone] 04/14/2024 2:30 PM CDT Office Visit Department of Ophthalmology in [place], [place] [address] [place] [phone] Prakash Graham M.D. [address] [place] [phone] 04/16/2024 12:30 PM CDT Ancillary Procedure Department of Ophthalmology in [place], [place] [address] [place] [phone] Prakash Graham M.D. [address] [place] [phone] 04/16/2024 1:00 PM CDT Ancillary Procedure Department of Ophthalmology in [place], [place] [address] [place] [phone] Kenya Garza M.D. [address] [place] [phone] 04/16/2024 2:00 PM CDT Ancillary Procedure Department of Ophthalmology in [address] [phone] Kenya Garza M.D. [address] [place] [phone] 04/16/2024 2:30 PM CDT Office Visit Department of Ophthalmology in [place], [place] [address] [place] [phone] Kenya Garza M.D. [address] [place] [phone] 04/27/2024 10:02 AM CDT Hospital Encounter [facility] [address] [place] [phone] Prakash Graham M.D. [address] [place] [phone] 04/27/2024 10:02 AM CDT - 04/27/2024 11:45 AM CDT Surgery [facility] [address] [place] [phone] Prakash Graham M.D. [address] [place] [phone] VITRECTOMY - PARS PLANA 25 GAUGE / MEMBRANE PEEL / SILICONE OIL AND ALL ASSOCIATED PROCEDURES RIGHT EYE 04/28/2024 8:00 AM CDT Office Visit Department of Ophthalmology in [place], [place] [address] [place] [phone] Prakahs Graham M.D. [address] [place] [phone] 05/05/2024 1:15 PM CDT Ancillary Procedure Department of Ophthalmology in [place], [place] [address] [place] [phone] Prakash Graham M.D. [address] [place] [phone] 05/05/2024 1:45 PM CDT Office Visit Department of Ophthalmology in [place], [place] [address] [place] [phone] Prakash Graham M.D. [address] [place] [phone] 06/02/2024 8:15 AM CDT Ancillary Procedure Department of Ophthalmology in [place], [place] [address] [place] [phone] Prakash Graham M.D. [address] [place] [phone] 06/02/2024 8:45 AM CDT Ancillary Procedure Department of Ophthalmology in [place], [place] [address] [place] [address] Prakash Graham M.D. [address] [place] [phone] 06/02/2024 9:00 AM CDT Office Visit Department of Ophthalmology in [place], [place] [address] [place] [phone] Prakash Graham M.D. [address] [place] [phone] Scheduled Procedures Name Priority Associated Diagnoses Date/Ti [...] Right documented in this encounter Care Teams Prison Classification Counselor Relationship Specialty Start Date End Date Elsewhere, Pcp PCP - General Internal Medicine 05/29/19 documented as of this encounter
--- OUTSIDE RECORDS SUMMARY | 2024-03-31 18:08 | XMS_ITS | Encounter Summary ---
Author Organization [facility] Address [address] [place] [phone] Care Team Providers Care Wash Tub Machine Operator Name Role Phone Elsewhere, Pcp Primary Care Provider Unavailabl e Reason for Visit * Reason Onset Date Comments Outside hospitalization and medications 01/10/20 Encounter Details Date Type Department Care Team (Latest Contact Info) Description 01/10/2024 Clinical Communication Department of Ophthalmology in [place], [place] [address] [place] [phone] Kenya Garza M.D. [address] [place] [phone] Outside hospitalization and medications Social History Tobacco Use Types Packs/Day Years Used Date Smoking Tobacco: Light Smoker Cigarettes 0.5 44.1 Started: 02/26/1980 Smokeless Tobacco: Never Comments:On again off again Alcohol Use Standard Drinks/Week Comments Yes 0 (1 standard drink = 0.6 oz pur e alcohol) [facility] Utilities Answer Date Recorded In the past 12 months has [employer], gas, oil, or water [employer] threatened to shut off services in your home? No 11/05/2023 Social Connection and Isolation Panel [NHANES] A nswer Date Recorded In a typical week, how many times do you talk on the phone with family, friends, or neighbors? Once a week 06/27/2020 How often do you get together with friends or re latives? Never 06/27/2020 How often do you attend christianity or evangelical serv ices? Never 06/27/2020 Do you belong [...] CDT Comprehensive Visit Preoperative Evaluation Center in [address] [phone] Prakash Graham M.D. [address] [place] [phone] 04/14/2024 1:30 PM CDT Ancillary Procedure Department of Ophthalmology in [place], [place] [address] [place] [phone] Kenya Garza M.D. [address] [place] [phone] 04/14/2024 2:10 PM CDT Ancillary Procedure Department of Ophthalmology in [place], [place] [address] [place] [phone] Prakash Graham M.D. [address] [place] [phone] 04/14/2024 2:30 PM CDT Office Visit Department of Ophthalmology in [address] [phone] Prakash Graham M.D. [address] [place] [phone] 04/16/2024 12:30 PM CDT Ancillary Procedure Department of Ophthalmology in [address] [phone] Prakash Graham M.D. [address] [place] [phone] 04/16/2024 1:00 PM CDT Ancillary Procedure Department of Ophthalmology in [place], [place] [address] [place] [phone] Kenya Garza M.D. [address] [place] [phone] 04/16/2024 2:00 PM CDT Ancillary Procedure Department of Ophthalmology in [place], [place] [address] [place] [phone] Kenya Garza M.D. [address] [place] [phone] 04/16/2024 2:30 PM CDT Office Visit Department of Ophthalmology in [place], [place] [address] [place] [phone] Kenya Garza M.D. [address] [place] [phone] 04/27/2024 10:02 AM CDT Hospital Encounter [facility] [place] [phone] Prakash Graham M.D. [address] [place] [phone] 04/27/2024 10:02 AM CDT - 04/27/2024 11:45 AM CDT Surgery [facility] [address] [place] [phone] Prakash Graham M.D. [address] [place] [phone] VITRECTOMY - PARS PLANA 25 GAUGE / MEMBRANE PEEL / SILICONE OIL AND ALL ASSOCIATED PROCEDURES RIGHT EYE 04/28/2024 8:00 AM CDT Office Visit Department of Ophthalmology in [place], [place] [address] [place] [phone] Prakash Graham M.D. [address] [place] [phone] 05/05/2024 1:15 PM CDT Ancillary Procedure Department of Ophthalmology in [place], [place] [address] [place] [phone] Prakash Graham M.D. [address] [place] [phone] 05/05/2024 1:45 PM CDT Office Visit Department of Ophthalmology in [place], [place] [address] [place] [phone] Prakash Graham M.D. [address] [place] [phone] 06/02/2024 8:15 AM CDT Ancillary Procedure Department of Ophthalmology in [place], [place] [address] [place] [phone] Prakash Graham M.D. [address] [place] [phone] 06/02/2024 8:45 AM CDT Ancillary Procedure Department of Ophthalmology in [place], [place] [address] [place] [phone] Prakash Graham M.D. [address] [place] [phone] 06/02/2024 9:00 AM CDT Office Visit Department of Ophthalmology in [place], [place] [address] [place] [phone] Prakash Graham M.D. [address] [place] [phone] Scheduled Procedures Name Priority Associated Diagnoses Date/Ti me VITRECTOMY - PARS PLANA 25 GAUGE Panuveitis Right Necrosis Retinal Acute Right 04/27/2024 10:02 AM CDT documented as of this encounter Visit Diagnoses Not on filedocumented in this encounter Care Teams Wash Tub Machine Operator Relationship Specialty Start Date End Date Elsewhere, Pcp PCP - General Internal Medicine 05/29/19 documented as of this encounter
--- OUTSIDE RECORDS SUMMARY | 2024-03-31 18:08 | XMS_ITS | Clinical Summary ---
Author Organization [facility] Address [place], [place] [address] Care Team Providers Care Warehouse Stocker Name Role Phone Easton Mccormick MD Unavailable [phone] Katerine Bashir MD Primary Care Provider + Allergies Active Allergy Reactions Criticality Noted Date Comments Wheeler Yefri Itching 09/11/2023 Medications Medication Sig Dispensed Refills Start Date End Date Status aspirin (ECOTRIN) 81 mg enteric coated tabletIndications:Non -ST elevation AK (NSTEMI) (HC) Take 1 tablet by mouth once daily with a meal. 0 11/30/2015 Active atorvastatin (LIPITOR) 40 mg tabletIndications:Cor onary artery disease, angina presence unspecified, unspecified vessel or lesion type, unspecified whether nez perce or transplanted heart Take 1 tablet by [...] Date Diagnosed Date Acute respiratory failure 01/14/2024 Rives coma scale total score 3-8 01/14/2024 Coma [...] Type Department Care Team Description 01/23/2024 Telephone [facility] [address] [place] [address] Audrey Givens NP Appointment (Imaging and follow up with COOK SHORT ORDER ) 01/22/2024 Orders Only [facility] [address] [place] [address] Nicolle Flores MD <No scans attached> 01/08/2024 9:21 PM CDT - 01/14/2024 3:51 PM CDT Hospital Encounter [facility] [address] [place], [place] [id number] s, Hospitalist c Poppy, MD Rosa Hennessy [...] SCREEN FFDM (IA) Routine 10/04/2016 9:00 AM CABLE SWAGER Visit for screening mammogram LIPID PANEL W REFLEX MEASURED LDL Routine 09/11/2016 9:26 AM CABLE SWAGER Hyperlipidemia, unspecified XR DXA BONE DENSITY 2 SITES AXIAL Routine 08/18/2015 9:25 AM CDT Screening for osteoporosis from Last 3 Months or Most Recently Relevant to Health Maintenance Results * (ABNORMAL) GLUCOSE METER (01/14/2024 12:46 PM CDT) Only the most recent of27 resultswithin the time period is included. GLUCOSE METER 221(H) 65 - 100 mg/dL 01/14/2024 12:49 PM CDT [facility] Blood BLOOD SPECIMEN / Unknown 01/14/2024 12:46 PM CDT 01/14/2024 12:49 PM CDT Ines Lee MD CHEMISTRY Performing Organization Address City/[facility]/ZIP Co de Phone Number [facility] SENDOUT INTERNAL ZIP [address] [place] [address] * SCAN-CARDIAC STRIP (01/14/2024 10:04 AM CDT) Scanner OTHER * PLATELET COUNT (01/14/2024 5:15 AM CDT) PLATELET COUNT 189 140 - 440 thou/cu mm 01/14/2024 6:02 AM CDT [facility] MPV 10.6 6.5 - 11.0 fL 01/14/2024 6:02 AM CDT [facility] Blood BLOOD SPECIMEN / Unknown Venipuncture / Unknown 01/14/2024 5:15 AM CDT 01/14/2024 5:46 AM CDT Santi Elmore MD HEMATOLOGY Performing Organization Address City/[facility]/ZIP Co de Phone Number [facility] SENDOUT INTERNAL ZIP [address] [place] [address] * POTASSIUM (01/14/2024 5:15 AM CDT) Only the most recent of6 resultswithin the time period is included. POTASSIUM 3.9 3.5 - 5.1 mmol/L 01/14/2024 6:15 AM CDT [facility] Blood BLOOD SPECIMEN / Unknown Venipuncture / Unknown 01/14/2024 5:15 AM CDT 01/14/2024 5:46 AM CDT Ines Lee MD CHEMISTRY Performing Organization Address City/[facility]/ZIP Co de Phone Number [facility] SENDOUT INTERNAL ZIP [address] [place] [address] * MAGNESIUM (01/14/2024 5:15 AM CDT) Only the most recent of6 resultswithin the time period is included. MAGNESIUM 2.1 1.6 - 2.4 mg/dL 01/14/2024 6:15 AM CDT [facility] Blood BLOOD SPECIMEN / Unknown Venipuncture / Unknown 01/14/2024 5:15 AM CDT 01/14/2024 5:46 AM CDT Anca Wandy Lee MD CHEMISTRY [facility] SENDOUT INTERNAL ZIP [address] [address] [place] [address] * SCAN-CARDIAC STRIP (01/14/2024 2:38 AM CDT) [...] is included. Pathologist [facility] [place] Interpretation Sinus rhythm with short [place] with occasional Premature ventricular complexes Septal infarct [...] NOW QTc 405 ms BEYOND NOW P Cavendish -21 degrees BEYOND NOW R Cavendish 3 degrees BEYOND NOW T Cavendish 75 degrees BEYOND NOW 01/13/2024 10:2 5 AM CDT 01/14/2024 2:27 PM CDT Latoya Krystle Schmitt COOK SHORT ORDER EKG ORD BEYOND NOW [place], [place] * EXTRA TUBE LAVENDER (01/13/2024 5:00 AM CDT) Blood BLOOD SPECIMEN / Unknown Extra Tube / Unknown 01/13/2024 5:00 AM CDT 01/13/2024 5:24 AM CDT Doctor Unknown LABORATORY [facility] SENDOUT INTERNAL ZIP [phone] [place] [address] * (ABNORMAL) BASIC METABOLIC PANEL (01/13/2024 5:00 AM CDT) Only the most recent of5 resultswithin the time period is included. SODIUM 135(L) 136 - 145 mmol/L 01/13/2024 5:52 AM T [facility] POTASSIUM 01/13/2024 5:52 AM T [facility] Comment:Canceled- Specimen H emolyzed, Disposition Per Policy CHLORIDE 92(L) 98 - 107 mmol/L 01/13/2024 5:52 AM T [facility] CO2,TOTAL 27 22 - 29 mmol/L 01/13/2024 5:52 AM T [facility] ANION GAP 16 5 - 18 01/13/2024 5:52 AM T [facility] GLUCOSE 151(H) 70 - 99 mg/dL 01/13/2024 5:52 AM T [facility] CALCIUM 10.4(H) 8.8 - 10.2 mg/dL 01/13/2024 5:52 AM T [facility] BUN 38(H) 8 - 23 mg/dL 01/13/2024 5:52 AM T [facility] CREATININE 0.91(H) 0.50 - 0.90 mg/dL 01/13/2024 5:52 AM T [facility] BUN/CREAT RATIO 42(H) 10 - 20 5:52 AM T [facility] eGFR 70(L) >90 mL/min/1.7 3m2 01/13/2024 5:52 AM CDT [facility] Comment:As of 2022, eG [...] AM CDT Anca Wandy Lee MD CHEMISTRY [facility] SENDOUT INTERNAL ZIP [phone] [place] [address] * SCAN-CARDIAC STRIP (01/13/2024 12:22 AM CDT) Scanner OTHER * SCAN-CARDIAC STRIP (01/12/2024 8:17 PM CDT) Scanner OTHER * SCAN-CARDIAC STRIP (01/12/2024 3:18 PM CDT) Scanner OTHER * ECHO TTE COMPLETE W CONTRAST (01/12/2024 10:18 AM CDT) EJECTION FRACTION 50-55% PROSOLV Anatomical Region Laterality Modality Ultrasound 01/12/2024 8:26 AM CDT Narrative 01/12/2024 12:01 PM CDT [facility] [address] [address] Main: [email or web address] ? 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 BP: 106 / 47 Weight: 171 lbs BMI: 27.6 kg/m?? HR: 68 Location: Inpatient (Portable) Rhythm: Sinus Arrhythmia Procedure Components: 2D imaging with contrast, Color Doppler, Spectral Doppler Indications: Congestive Heart Failure Technical Quality: Fair Contrast: Definity Constrast Dose (ml): .15 [facility]#: [id number] Final Conclusion 1. Normal left ventricular chamber [...] Peak Velocity ?0.758 m/sec Ginger Loredo MD [facility] Accredited Site (Electronically Signed) Final Date: 12 January 2024 12:01 ICD-10 Codes: 428 Procedure Note Ginger Loredo MD - 01/12/2024 [facility] [place] [address] Main: 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 BP: 106 / 47 Weight: 171 lbs BMI: 27.6 kg/m?? HR: 68 Location: Inpatient (Portable) Rhythm: Sinus Arrhythmia Procedure Components: 2D imaging with contrast, Color Doppler, SpectralDoppler Indications: Congestive Heart Failure Technical Quality: Fair Contrast: Definity Constrast Dose (ml): .15 [facility]#: [id number] Final Conclusion 1. Normal left ventricular chamber [...] Peak Velocity 0.758 m/sec [facility] Accredited Site (Electronically Signed) Final Date: 12 [...] EXAM: XR CHEST 1 VIEW PORTABLE LOCATION: [facility] MEDICAL IMAGING DATE: 01/12/2024 INDICATION: [...] EXAM: XR CHEST 1 VIEW PORTABLE LOCATION: [facility] MEDICAL IMAGING DATE: 01/12/2024 INDICATION: [...] 2,530(H) <125 pg/mL 01/11/2024 3:11 PM CDT [facility] Blood BLOOD SPECIMEN / Unknown Line/Port / Unknown 01/11/2024 1:07 PM CDT 01/11/2024 1:10 PM CDT Narrative [facility] - 01/11/2024 3:11 PM [...] ? Anca Wandy Lee MD SEND OUTS [facility] SENDOUT INTERNAL ZIP [phone] [place] [address] * SCAN-CARDIAC STRIP (01/11/2024 7:56 AM CDT) Scanner OTHER * (ABNORMAL) CBC WITH AUTO DIFFERENTIAL (01/11/2024 4:59 AM CDT) Only the most recent of2 resultswithin the time period is included. WHITE BLOOD COUNT 7.5 4.5 - 11.0 thou/cu mm 01/11/2024 5:19 AM [facility] RED BLOOD COUNT 3.98(L) 4.00 - 5.20 mil/cu mm 01/11/2024 5:19 AM [facility] HEMOGLOBIN 12.5 12.0 - 16.0 g/dL 01/11/2024 5:19 AM [facility] HEMATOCRIT 37.4 33.0 - 51.0 % 01/11/2024 5:19 AM [facility] MCV 94 80 - 100 fL 01/11/2024 5:19 AM [facility] MCH 31.4 26.0 - 34.0 pg 01/11/2024 5:19 AM [facility] MCHC 33.4 32.0 - 36.0 g/dL 01/11/2024 5:19 AM [facility] RDW 19.3(H) 11.5 - 15.5 % 01/11/2024 5:19 AM [facility] PLATELET COUNT 130(L) 140 - 440 thou/cu mm 01/11/2024 5:19 AM [facility] MPV 10.8 6.5 - 11.0 fL 01/11/2024 5:19 AM [facility] NRBC 0.3 % 01/11/2024 5:19 AM [facility] ABS NRBC 0.0 thou /cu mm 01/11/2024 5:19 AM [facility] % NEUT 37.8 % 01/11/2024 5:19 AM [facility] % LYMPH 47.7 % 01/11/2024 5:19 AM [facility] % MONO 10.5 % 01/11/2024 5:19 AM [facility] % EOS 1.1 % 01/11/2024 5:19 AM [facility] % BASO 0.8 % 01/11/2024 5:19 AM [facility] % IMMATURE GRAN (METAS,MYELOS,N[place] OS) 2.1 % 01/11/2024 5:19 AM [facility] ABSOLUTE NEUTROPHILS 2.8 1.7 - 7.0 thou/cu mm 01/11/2024 5:19 AM [facility] ABSOLUTE LYMPHOCYTES 3.6(H) 0.9 - 2.9 thou/cu mm 01/11/2024 5:19 AM CDT [facility] ABSOLUTE MONOCYTES 0.8 <0.9 thou/cu mm 01/11/2024 5:19 AM CDT [facility] ABSOLUTE EOSINOPHILS 0.1 <0.5 thou/cu mm 01/11/2024 5:19 AM CDT [facility] ABSOLUTE BASOPHILS 0.1 <0.3 thou/cu mm 01/11/2024 5:19 AM CDT [facility] ABSOLUTE IMMATURE GRANULOCYTES(MET ,MYELOS,PROS) 0.2 <0.3 thou/cu mm 01/11/2024 5:19 AM CDT [facility] Blood BLOOD SPECIMEN / Unknown Venipuncture / Unknown 01/11/2024 4:59 AM CDT 01/11/2024 5:08 AM CDT Tea Garcia MD HEMATOLOGY [facility] SENDOUT INTERNAL ZIP [phone] [place] [address] * SCAN-CARDIAC STRIP (01/11/2024 12:48 AM CDT) [...] (ANKITA) Negative Negative 01/13/2024 1:11 PM CDT [facility] Blood BLOOD SPECIMEN / Unknown Venipuncture / Unknown 01/10/2024 4:44 AM CDT 01/10/2024 5:16 AM CDT Narrative [facility] - 01/13/2024 1:11 PM CDT Method: ANKITA screen performed by (IFA) on HEP-2 substrate, IgG Nicolle Flores MD CHEMISTRY Performing Organization Address [facility] Co de Phone Number [facility] [address] [place] [address], * ANCA PANEL FOR VASCULITIS (01/10/2024 4:44 AM CDT) Pathologist [facility] [place] ANCA Negative Negative 01/14/2024 11:09 AM CDT [facility] Comment: Atypical ANCA cannot be ruled out due to presence of ANKITA on screening.?? ANKITA screen results are not valid for diagnosis of Autoimmune Disease.?? Order ANKITA testing for further evaluation as clinically indicated. Blood BLOOD SPECIMEN / Unknown Venipuncture / Unknown 01/10/2024 4:44 AM CDT 01/10/2024 5:16 AM CDT Nicolle Flores MD SEND OUTS Performing Organization Address [facility] Co de Phone Number [facility] [address] [place] [address], * (ABNORMAL) COMP METABOLIC PANEL (01/10/2024 4:44 AM CDT) [facility] SODIUM 141 136 - 145 mmol/L 01/10/2024 5:43 AM CDT [facility] POTASSIUM 4.3 3.5 - 5.1 mmol/L 01/10/2024 5:43 AM CDT [facility] CHLORIDE 107 98 - 107 mmol/L 01/10/2024 5:43 AM CDT [facility] CO2,TOTAL 24 22 - 29 mmol/L 01/10/2024 5:43 AM CDT [facility] ANION GAP 10 5 - 18 01/10/2024 5:43 AM CDT [facility] GLUCOSE 217(H) 70 - 99 mg/dL 01/10/2024 5:43 AM [facility] CALCIUM 8.0(L) 8.8 - 10.2 mg/dL 01/10/2024 5:43 AM [facility] BUN 15 8 - 23 mg/dL 01/10/2024 5:43 AM [facility] CREATININE 0.73 0.50 - 0.90 mg/dL 01/10/2024 5:43 AM [facility] BUN/CREAT RATIO 21(H) 10 - 20 5:43 AM [facility] eGFR >90 >90 mL/min/1.7 3m2 01/10/2024 5:43 AM [facility] Comment:As of 2022, eG FR is calculated by the CKD-EPI creatinine equation without race adjustment. ??eGFR can be influenced by muscle mass, exercise, and diet. ??The reported eGFR is an estimation only and is only applicable if the renal function is stable. ALBUMIN 3.3(L) 4.0 - 4.9 g/dL 01/10/2024 5:43 AM [facility] PROTEIN,TOTAL 5.1(L) 6.0 - 8.0 g/dL 01/10/2024 5:43 AM [facility] BILIRUBIN,TOTAL 0.6 0.0 - 1.2 mg/dL 01/10/2024 5:43 AM [facility] ALK PHOSPHATASE 53 35 - 104 IU/L 01/10/2024 5:43 AM [facility] ALT (SGPT) 14 10 - 35 IU/L 01/10/2024 5:43 AM [facility] AST (SGOT) 19 10 - 35 IU/L 01/10/2024 5:43 AM [facility] Blood BLOOD SPECIMEN / Unknown Venipuncture / Unknown 01/10/2024 4:44 AM CDT 01/10/2024 5:15 AM T Tea Garcia MD CHEMISTRY [facility] SENDOUT INTERNAL ZIP [address] [place] [phone] * SCAN-CARDIAC STRIP (01/10/2024 12:00 AM CDT) [...] EXAM: XR ABDOMEN 1 VIEW PORTABLE LOCATION: [facility] MEDICAL IMAGING DATE: 01/09/2024 INDICATION: [...] EXAM: XR ABDOMEN 1 VIEW PORTABLE LOCATION: [facility] MEDICAL IMAGING DATE: 01/09/2024 INDICATION: [...] Yellow Yellow Color 01/09/2024 2:03 PM CDT [facility] CLARITY Clear Clear Clarity 01/09/2024 2:03 PM CDT [facility] SPECIFIC GRAVITY,URINE 1.015 1.010, 1.015, 1.020, 1.025 01/09/2024 2:03 PM CDT [facility] PH,URINE 5.5 6.0, 7.0, 8.0, 5.5, 6.5, 7.5, 8.5 01/09/2024 2:03 PM CDT [facility] UROBILINOGEN, QUALITATIVE Normal Normal EU/dl 01/09/2024 2:03 PM CDT [facility] PROTEIN, URINE Trace(A) Negative mg/dL 01/09/2024 2:03 PM CDT [facility] GLUCOSE, URINE Negative Negative mg/dL 01/09/2024 2:03 PM CDT [facility] KETONES,URINE Negative Negative mg/dL 01/09/2024 2:03 PM CDT [facility] BILIRUBIN,URI NE Negative Negative 01/09/2024 2:03 PM CDT [facility] OCCULT BLOOD,URINE Negative Negative 01/09/2024 2:03 PM CDT [facility] NITRITE Negative Negative 01/09/2024 2:03 PM CDT [facility] LEUKOCYTE ESTERASE Negative Negative 01/09/2024 2:03 PM CDT [facility] Urine URINE SPECIMEN / Unknown Non-Blood / Unknown 01/09/2024 1:43 PM CDT 01/09/2024 1:52 PM CDT Nicolle Flores MD URINE [facility] SENDOUT INTERNAL ZIP [address] [place] [address] * SPUTUM CULTURE, STAIN (01/09/2024 10:10 AM CDT) CULTURE Usual geovanni 01/11/2024 9:18 AM CDT [facility] GRAM STAIN 3+ PMNs 01/11/2024 9:18 AM CDT [facility] GRAM STAIN Gram Positive Cocci 01/11/2024 9:18 AM CDT [facility] GRAM STAIN RBCs 01/11/2024 9:18 AM CDT [facility] GRAM STAIN 1+ Epithelial cells 01/11/2024 9:18 AM CDT [facility] GRAM STAIN Gram stain performed by [place], [place] 01/11/2024 9:18 AM CDT [facility] Sputum SPECIMEN FROM ENDOTRACHEAL TUBE / Unknown Non-Blood / Unknown 01/09/2024 10:10 AM CDT 01/09/2024 10:36 AM CDT Nicolle Flores MD MICROBIOLOGY [facility] [address] [place] [address], [facility] SENDOUT INTERNAL ZIP [phone] [place] [address] * SEDIMENTATION RATE (01/09/2024 9:50 AM CDT) SEDIMENTATION RATE 4 <30 mm/hr 2023 10:14 AM CDT [facility] Blood BLOOD SPECIMEN / Unknown Butterfly / Unknown 01/09/2024 9:50 AM CDT 01/09/2024 9:54 AM CDT Nicolle Flores MD HEMATOLOGY [facility] SENDOUT INTERNAL ZIP [address] [place] [address] * BLOOD CULTURE (01/09/2024 9:50 AM CDT) Only the most recent of2 resultswithin the time period is included. CULTURE No Growth. 01/13/2024 4:25 PM CDT [facility] Blood BLOOD SPECIMEN / Unknown Butterfly / Unknown 01/09/2024 9:50 AM CDT 01/09/2024 9:54 AM CDT Nicolle Flores MD MICROBIOLOGY [facility] [address] [place] [address], * TSH (01/09/2024 9:50 AM CDT) TSH 0.58 0.27 - 4.20 uIU/mL 01/09/2024 11:43 AM CDT [facility] Blood BLOOD SPECIMEN / Unknown Butterfly / Unknown 01/09/2024 9:50 AM CDT 01/09/2024 9:55 AM CDT [facility] - 01/09/2024 11:43 AM CDT In Adults, TSH values between 5.00 and 10.00 uIU/ml do not necessarily indicate the presence of Hypothyroidism. Correlation with clinical findings such as presence of goiter and/or Thyroperoxidase (TPO) Antibody may be helpful. For more information please refer to RADHA 2004; 291: 228-238. Nicolle Flores MD CHEMISTRY [facility] SENDOUT INTERNAL [facility] [id number] [place] [address] * RA QUANTITATIVE (01/09/2024 9:50 AM CDT) Pathologist [facility] [place] RHEUMATOID FACTOR,QUANT <10.00 <14.00 IU/mL 01/09/2024 4:13 PM CDT [facility] Blood BLOOD SPECIMEN / Unknown Butterfly / Unknown 01/09/2024 9:50 AM CDT 01/09/2024 9:55 AM CDT Nicolle Flores MD [facility]S [facility] [address] [place] [address], * (ABNORMAL) C-REACTIVE PROTEIN (01/09/2024 9:50 AM CDT) Pathologist [facility] [place] C-REACTIVE PROTEIN 11.2(H) <0.5 mg/dL 01/09/2024 11:43 AM CDT [facility] Blood BLOOD SPECIMEN / Unknown Butterfly / Unknown 01/09/2024 9:50 AM CDT 01/09/2024 9:55 AM CDT Nicolle Flores MD CHEMISTRY [facility] SENDOUT INTERNAL ZIP [address] [place] [phone] * VITAMIN B12 (01/09/2024 9:50 AM CDT) Pathologist [facility] [place] VITAMIN B12 525 232 - 1,245 pg/mL 01/09/2024 3:57 PM CDT [facility] Blood BLOOD SPECIMEN / Unknown Butterfly / Unknown 01/09/2024 9:50 AM CDT 01/09/2024 9:[address] [facility] - 01/09/2024 3:57 PM CDT Biotin supplements may cause clinically significant interference for this test assay. ??If interference is suspected, it is strongly recommended that biotin is discontinued for at least one week prior to retesting. Nicolle Flores MD CHEMISTRY Performing Organization Address City/[facility]/ZIP Co de Phone Number [facility] [address] [place] [address], * AMMONIA (01/09/2024 8:09 AM CDT) [facility] AMMONIA 44 16 - 60 umol/L 01/09/2024 8:47 AM CDT [facility] Blood BLOOD SPECIMEN / Unknown Venipuncture / Unknown 01/09/2024 8:09 AM CDT 01/09/2024 8:18 AM CDT Narrative [facility] - 01/09/2024 8:47 AM CDT 1. ??Sulfasalazine and its metabolite Sulfapyridine at therapeutic concentrations may lead to falsely low results. 2. ??Temozolomide and its metabolite MTIC may lead to falsely elevated results, and its metabolite AIC may lead to falsely low results. Santi Elmore MD CHEMISTRY [facility] SENDOUT INTERNAL ZIP [phone] [place] [address] * SCAN-CARDIAC STRIP (01/09/2024 7:15 AM CDT) Scanner OTHER * EXTRA TUBE BLUE (01/09/2024 6:58 AM CDT) Blood BLOOD SPECIMEN / Unknown Extra Tube / Unknown 01/09/2024 6:58 AM CDT 01/09/2024 6:58 AM CDT Doctor Unknown LABORATORY [facility] SENDOUT INTERNAL ZIP [phone] [place] [address] * PROCALCITONIN (01/09/2024 6:21 AM CDT) Only the most recent of2 resultswithin the time period is included. PROCALCITONIN 0.12 ng/ml 01/09/2024 7:32 AM CDT [facility] Blood BLOOD SPECIMEN / Unknown Venipuncture / Unknown 01/09/2024 6:21 AM CDT 01/09/2024 6:43 AM CDT Narrative [facility] - 01/09/2024 7:32 AM [...] are obtained. Santi Elmore MD SEND OUTS [facility] SENDOUT INTERNAL ZIP [address] [place] [address] * (ABNORMAL) CBC W PLT NO DIFF (01/09/2024 6:21 AM CDT) Only the most recent of2 resultswithin the time period is included. WHITE BLOOD COUNT 7.9 4.5 - 11.0 thou/cu mm 01/09/2024 6:55 AM [facility] RED BLOOD COUNT 4.56 4.00 - 5.20 mil/cu mm 01/09/2024 6:55 AM [facility] HEMOGLOBIN 14.4 12.0 - 16.0 g/dL 01/09/2024 6:55 AM [facility] HEMATOCRIT 43.7 33.0 - 51.0 % 01/09/2024 6:55 AM [facility] MCV 96 80 - 100 fL 01/09/2024 6:55 AM T [facility] MCH 31.6 26.0 - 34.0 pg 01/09/2024 6:55 AM [facility] MCHC 33.0 32.0 - 36.0 g/dL 01/09/2024 6:55 AM CDT [facility] RDW 19.6(H) 11.5 - 15.5 % 01/09/2024 6:55 AM CDT [facility] PLATELET COUNT 146 140 - 440 thou/cu mm 01/09/2024 6:55 AM CDT [facility] MPV 10.3 6.5 - 11.0 fL 01/09/2024 6:55 AM CDT [facility] NRBC 0.0 % 01/09/2024 6:55 AM CDT [facility] ABS NRBC 0.0 thou /cu mm 01/09/2024 6:55 AM CDT [facility] Blood BLOOD SPECIMEN / Unknown Venipuncture / Unknown 01/09/2024 6:21 AM CDT 01/09/2024 6:44 AM CDT Santi Elmore MD HEMATOLOGY Performing Organization Address City/[facility]/ZIP Co de Phone Number [facility] SENDOUT INTERNAL ZIP [id number] [place] [id number] * TRIGLYCERIDES propofol (01/09/2024 6:21 AM CDT) TRIGLYCERIDES 118 <150 mg/dL 01/09/2024 7:22 AM CDT [facility] PROVIDER ORDERED STATUS RANDOM 01/09/2024 7:22 AM CDT [facility] Blood BLOOD SPECIMEN / Unknown Venipuncture / Unknown 01/09/2024 6:21 AM CDT 01/09/2024 6:43 AM CDT Santi Elmore MD CHEMISTRY [facility] SENDOUT INTERNAL ZIP [id number] [address] [place] [address] * CK TOTAL propofol (01/09/2024 6:21 AM CDT) CK,TOTAL 35 26 - 192 IU/L 01/09/2024 7:22 AM CDT [facility] Blood BLOOD SPECIMEN / Unknown Venipuncture / Unknown 01/09/2024 6:21 AM CDT 01/09/2024 6:43 AM CDT Santi Elmore MD CHEMISTRY [facility] SENDOUT INTERNAL ZIP [id number] [address] [place] [address] * (ABNORMAL) HEPATIC FUNCTION PANEL (01/09/2024 6:21 AM CDT) Only the most recent of2 resultswithin the time period is included. Pathologist [facility], [place] ALBUMIN 3.6(L) 4.0 - 4.9 g/dL 01/09/2024 7:22 AM CDT [facility] PROTEIN,TOTAL 5.3(L) 6.0 - 8.0 g/dL 01/09/2024 7:22 AM CDT [facility] BILIRUBIN,TOTAL 1.4(H) 0.0 - 1.2 mg/dL 01/09/2024 7:22 AM CDT [facility] BILIRUBIN,DIRECT 0.3 0.0 - 0.3 mg/dL 01/09/2024 7:22 AM CDT [facility] BILIRUBIN,INDIRE CT 1.1(H) 0.2 - 0.8 mg/dL 01/09/2024 7:22 AM CDT [facility] ALK PHOSPHATASE 58 35 - 104 IU/L 01/09/2024 7:22 AM CDT [facility] ALT (SGPT) 17 10 - 35 IU/L 01/09/2024 7:22 AM CDT [facility] AST (SGOT) 23 10 - 35 IU/L 01/09/2024 7:22 AM CDT [facility] Blood BLOOD SPECIMEN / Unknown Venipuncture / Unknown 01/09/2024 6:21 AM CDT 01/09/2024 6:43 AM CDT Santi Elmore MD CHEMISTRY [facility] SENDOUT [place] [address]IP [phone] [place] [address] * (ABNORMAL) ISTAT EG6+ ABG (01/09/2024 5:38 AM CDT) Only the most recent of2 resultswithin the time period is included. Pathologist [facility] [place] PH, ARTERIAL 7.37 7.35 - 7.45 01/09/2024 5:41 AM [facility] PCO2, ARTERIAL 42 32 - 45 mmHg 01/09/2024 5:41 AM [facility] PO2, ARTERIAL 126(H) 83 - 108 mmHg 01/09/2024 5:41 AM [facility] HCO3, ARTERIAL 23 21 - 28 mmol/L 01/09/2024 5:41 AM [facility] BASE EXCESS, ARTERIAL -2.0 -2.0 - 3.0 01/09/2024 5:41 AM [facility] O2 SATURATION, ARTERIAL 98 94 - 98 % 01/09/2024 5:41 AM [facility] SODIUM, POCT 01/09/2024 5:41 AM [facility] Comment:Unable to determine. POTASSIUM, POCT 5:41 AM [facility] Comment:Unable to determine. INSPIRED O2,ISTAT 50.0 01/09/2024 5:41 AM [facility] PATIENT TEMPERATURE 38.9 Degrees C 01/09/2024 5:41 AM [facility] CARRINGTON'S TEST Not Given 01/09/2024 5:41 AM [facility] SAMPLE TYPE,ISTAT BLOOD GAS ARTERIAL 01/09/2024 5:41 AM [facility] Blood BLOOD SPECIMEN / Unknown 01/09/2024 5:38 AM CDT 01/09/2024 5:41 AM T Ines Lee MD CHEMISTRY [facility] SENDOUT INTERNAL ZIP [phone] [place] [id number] * DRUG SCREEN RAPID URINE INHOUSE (01/09/2024 3:01 AM [facility]) [facility] THC METABOLITES,NANCI L Not Detected Not Detected 01/09/2024 3:28 AM [facility] PCP,QUAL Not Detected Not Detected 01/09/2024 3:28 AM [facility] COCAINE,QUAL Not Detected Not Detected 01/09/2024 3:28 AM [facility] METHAMPHETAMINE , QUALITATIVE Not Detected Not Detected 01/09/2024 3:28 AM [facility] OPIATES,QUAL Not Detected Not Detected 01/09/2024 3:28 AM [facility] AMPHETAMINE, QUALITATIVE Not Detected Not Detected 01/09/2024 3:28 AM [facility] BENZODIAZEPINES ,QUAL Not Detected Not Detected 01/09/2024 3:28 AM [facility] TRICYCLICS,QUAL Not Detected Not Detected 01/09/2024 3:28 AM [facility] METHADONE, QUALITATIVE Not Detected Not Detected 01/09/2024 3:28 AM [facility] BARBITURATES,QU AL Not Detected Not Detected 01/09/2024 3:28 AM [facility] OXYCODONE, QUALITATIVE Not Detected Not Detected 01/09/2024 3:28 AM [facility] BUPRENORPHINE, QUALITATIVE Not Detected Not Detected 01/09/2024 3:28 AM [facility] Urine URINE SPECIMEN / Unknown Non-Blood / Unknown 01/09/2024 3:01 AM CDT 01/09/2024 3:07 AM T [facility] - 01/09/2024 3:28 AM CDT Please [...] order PCP confirmation. Santi Elmore MD URINE [facility] SENDOUT [place] ZIP [phone] [place] [address] * SCAN-CARDIAC STRIP (01/09/2024 1:18 AM CDT) [...] provider. EXAM: MR HEAD BRAIN WWO LOCATION: [facility] MEDICAL IMAGING DATE: 01/09/2024 INDICATION: [...] provider. EXAM: MR HEAD BRAIN WWO LOCATION: [facility] MEDICAL IMAGING DATE: 01/09/2024 INDICATION: [...] Detected NOT Detected 01/09/2024 9:19 AM CDT [facility] [employer] [facility] Haemophilus influenza NOT Detected NOT Detected 01/09/2024 9:19 AM CDT [facility] Listeria monocytogenes NOT Detected NOT Detected 01/09/2024 9:19 AM CDT [facility] Neisseria meningitides NOT Detected NOT Detected 01/09/2024 9:19 AM CDT [facility] Streptococcus agalactiae NOT Detected NOT Detected 01/09/2024 9:19 AM CDT [facility] Streptococcus pneumoniae NOT Detected NOT Detected 01/09/2024 9:19 AM CDT [facility] Cytomegalovirus NOT Detected NOT Detected 01/09/2024 9:19 AM CDT [facility] Enterovirus NOT Detected NOT Detected 01/09/2024 9:19 AM CDT [facility] Herpes simplex virus 1 NOT Detected NOT Detected 01/09/2024 9:19 AM CDT [facility] Herpes simplex virus 2 NOT Detected NOT Detected 01/09/2024 9:19 AM CDT [facility] Human herpesvirus 6 NOT Detected NOT Detected 01/09/2024 9:19 AM CDT [facility] Human parechovirus NOT Detected NOT Detected 01/09/2024 9:19 AM CDT [facility] Varicella zoster virus NOT Detected NOT Detected 01/09/2024 9:19 AM CDT [facility] Cryptococcus neoformans/gattii NOT Detected NOT Detected 01/09/2024 9:19 AM CDT [facility] Cerebrospinal Fluid CEREBROSPINAL FLUID SPECIMEN / Unknown Non-Blood / Unknown 01/08/2024 11:55 PM CDT 01/08/2024 11:58 PM CDT [facility] - 01/09/2024 9:19 AM CDT This [...] for the test. Santi Elmore MD MICROBIOLOGY [facility] [address] * SPINAL FLUID CULT, STAIN (01/08/2024 11:55 PM CDT) CULTURE No Growth. 01/14/2024 11:10 AM CDT [facility] GRAM STAIN 2+ PMNs 01/14/2024 11:10 AM CDT [facility] GRAM STAIN No Epithelial cells 01/14/2024 11:10 AM CDT [facility] GRAM STAIN 3+ RBCs 01/14/2024 11:10 AM CDT [facility] GRAM STAIN No organisms seen 01/14/2024 11:10 AM CDT [facility] GRAM STAIN Gram stain performed by [place], [place] 01/14/2024 11:10 AM CDT [facility] Cerebrospinal Fluid CEREBROSPINAL FLUID SPECIMEN / Unknown Non-Blood / Unknown 01/08/2024 11:55 PM CDT 01/08/2024 11:58 PM CDT Santi Elmore MD MICROBIOLOGY [facility] [address] [place] [id number] [place] [address] LABORATORY SENDOUT INTERNAL ZIP [phone] [place] [phone] * (ABNORMAL) CSF CELL COUNT/DIFF (01/08/2024 11:55 PM CDT) TUBE NUMBER Four 01/09/2024 1:33 AM CDT [facility] CSF COLOR Colorless Colorless 01/09/2024 1:33 AM CDT [facility] CSF CLARITY Clear Clear 01/09/2024 1:33 AM CDT [facility] TOTAL NUCLEATED CELLS, CSF 5 <=25 /cu mm 01/09/2024 1:33 AM CDT [facility] RED BLOOD COUNT, CSF 172(H) <10 /cu mm 01/09/2024 1:33 AM CDT [facility] % NEUTROPHILS, CSF 3 <7 % 01/09/2024 1:33 AM CDT [facility] % LYMPHOCYTES, CSF 97(H) 40 - 80 % 01/09/2024 1:33 AM CDT [facility] Cerebrospinal Fluid CEREBROSPINAL FLUID SPECIMEN / Unknown Non-Blood / Unknown 01/08/2024 11:55 PM CDT 01/08/2024 11:58 PM CDT Narrative [facility] - 01/09/2024 1:33 AM CDT CSF MIN VOLUME: 1.0 mL Santi Elmore MD BODY FLUID Performing Organization Address City/[facility]/ZIP Co de Phone Number [facility] SENDOUT INTERNAL ZIP [phone] [place] [phone] * PROTEIN CSF,TOTAL (01/08/2024 11:55 PM CDT) PROTEIN CSF,TOTAL 41 15 - 45 mg/dL 01/09/2024 12:35 AM CDT [facility] Cerebrospinal Fluid CEREBROSPINAL FLUID SPECIMEN / Unknown Non-Blood / Unknown 01/08/2024 11:55 PM CDT 01/08/2024 11:58 PM CDT Santi Elmore MD BODY FLUID Performing Organization Address [facility]/ZIP Co de Phone Number [facility] SENDOUT INTERNAL ZIP [phone] [place] [address] * (ABNORMAL) GLUCOSE,CSF (01/08/2024 11:55 PM CDT) GLUCOSE,CSF 92(H) 40 - 70 mg/dL 01/09/2024 12:38 AM CDT [facility] Cerebrospinal Fluid CEREBROSPINAL FLUID SPECIMEN / Unknown Non-Blood / Unknown 01/08/2024 11:55 PM CDT 01/08/2024 11:58 PM CDT Santi Elmore MD BODY FLUID Performing Organization Address City/[facility]/ZIP Co de Phone Number [facility] SENDOUT INTERNAL ZIP [phone] [place] [phone] * IR LUMBAR PUNCTURE DIAGNOSTIC (01/08/2024 11:42 PM CDT) Anatomical Region Laterality Modality X-Ray Angiograph y 01/08/2024 11:4 2 PM CDT Impressions 01/13/2024 7:33 AM CDT CONCLUSION: 1. Fluoroscopically-guided lumbar puncture yielding 12 cc of clear cerebrospinal fluid, sent for analysis. Marcial Alcala M.D. Neurointerventional Surgery [facility] Office: Pager: Narrative 01/13/2024 7:33 AM CDT For Patients: As a result of the Century Cures Act, medical imaging exams and procedure reports are released immediately into your electronic medical record. You may view this report before your referring provider. If you have questions, please contact your health care provider. [facility] MEDICAL IMAGING NEUROINTERVENTIONAL SURGERY AULT RADIOLOGY 01/08/2024 11:42 PM CDT FLUOROSCOPICALLY-GUIDED LUMBAR [...] questions, please contact your health care provider. [facility] MEDICAL IMAGING NEUROINTERVENTIONAL SURGERY AULT RADIOLOGY 01/08/2024 11:42 PM CDT FLUOROSCOPICALLY-GUIDED LUMBAR [...] for analysis. Marcial Alcala M.D. Neurointerventional Surgery [facility] Office: Pager: Marcial Alcala MD IR * (ABNORMAL) TROPONIN T (HS) ONE TIME (01/08/2024 10:58 PM CDT) TROPONIN T HS 34(H) 6-10 ng/L ng/L 01/08/2024 11:28 PM CDT [facility] Blood BLOOD SPECIMEN / Unknown Venipuncture / Unknown 01/08/2024 10:58 PM CDT 01/08/2024 11:03 PM CDT [facility] - 01/08/2024 11:28 PM [...] Organization Address [facility]/ZIP Co de Phone Number [facility] SENDOUT INTERNAL ZIP [phone] [place] [address] * PROTIME-INR (01/08/2024 10:58 PM CDT) INR 1.0 <1.3 01/08/2024 11:13 PM CDT [facility] PROTIME 11.1 10.3 - 12.3 sec 01/08/2024 11:13 PM CDT [facility] Blood BLOOD SPECIMEN / Unknown Venipuncture / Unknown 01/08/2024 10:58 PM CDT 01/08/2024 11:03 PM CDT Narrative [facility] - 01/08/2024 11:13 PM [...] Organization Address [facility] Co de Phone Number [facility] SENDOUT INTERNAL ZIP [phone] [place] [address] * XR MAMMO BILAT SCREEN FFDM (10/04/2016 9:00 AM CABLE SW[employer]ER) Anatomical Region Laterality Modality BREASTS, Breast Left, Breast Right Bilateral Mammography Narrative 10/04/2016 1:52 PM CABLE SWAGER BILATERAL DIGITAL SCREENING MAMMOGRAM WITH COMPUTER-AIDED DETECTION [...] for Comparison Bernardino Avelar D.O. Diagnostic Radiologist [employer] [facility] [email or web address]/pjt ?? / Bailey Collins NP MAMMO * (ABNORMAL) LIPID PANEL W REFLEX MEASURED LDL (09/11/2016 9:26 AM CABLE SWAGER) CHOLESTEROL,TOTAL 159 100 - 199 mg/dL 09/11/2016 10:03 AM CABLE SW[facility]ER [facility] TRIGLYCERIDES 183(H) <150 mg/dL 09/11/2016 10:03 AM [facility] HDL CHOLESTEROL 36(L) >40 mg/dL 6 10:03 AM CABLE SW[facility]ER [facility] NON-HDL CHOLESTEROL 123 <145 mg/dl 09/11/2016 10:03 AM [facility] CHOL/HDL RATIO 4.42 <4.50 09/11/2016 10:03 AM CABLE SW[facility]ER [facility] LDL CHOLESTEROL 86 <=130 mg/dL 09/11/2016 10:03 AM [facility]ABLE SW[facility]ER [facility] PATIENT STATUS NOT GIVEN 09/11/2016 10:03 AM [facility]ABLE SW[facility]ER [facility] Blood BLOOD SPECIMEN / Unknown Venipuncture / Unknown 09/11/2016 9:26 AM CABLE SWAGER 09/11/2016 9:26 AM CABLE SWAGER Bailey Collins NP CHEMISTRY [facility] [address] [place] [address], [place] [phone] * XR DXA BONE DENSITY 2 SITES (08/18/2015 9:25 AM CDT) Anatomical Region Laterality Modality Spine, HIPS, HIPL, HIPR Other Narrative 08/19/2015 6:36 PM CDT Please see scanned document for results of this study. Bailey Collins COOK SHORT ORDER DEXA from Last 3 Months or Most [...] Comments Code Status Discussion: Discussed Care Teams [employer] Relationship Specialty Start Date End Date Katerine Bashir MD [address] [place] [address] PCP - General Family Practice 12/27/20 Easton Mccormick MD [address] [facility] [address] [place] [address] Cardiovascular Disease 09/26/16
[2024-03-31 19:16] VITALS: BP 159/86; PULSE 60; RESP 16; O2SAT 95
== END 2024-03-31 19:25 | disposition home or self-care (01) ==
PROVIDERS: Emergency Provider Emergency Medicine; PCP Family Medicine
DX: S62.512A Displaced fracture of proximal phalanx of left thumb, initial encounter for closed fracture (principal); S50.812A Abrasion of left forearm, initial encounter; S50.811A Abrasion of right forearm, initial encounter; V43.52XA Car driver injured in collision with other type car in traffic accident, initial encounter
CPT/HCPCS: 73140; 99284

== ENCOUNTER 2024-04-22 08:03 | Outpatient (CLI) | payer MEDICARE, SELFPAY ==
--- OUTSIDE RECORDS SUMMARY | 2024-04-22 08:06 | XMS_ITS ---
Author Organization [facility] Address [address] [place] [address] Care Team Providers Care Bale Opener Name Role Phone Unavailable Unavailable Unavailable Surgery Details Not on file Complications Check Surgery Details section. Procedure Estimated Blood Loss Check Surgery Details section. Procedure Findings Check Surgery Details section. Procedure Specimens Taken Check Surgery Details section.
--- OUTSIDE RECORDS SUMMARY | 2024-04-22 08:06 | XMS_ITS | Encounter Summary ---
Author Organization [facility] Address [address] [place] [address] Care Team Providers Care Axle Polisher Name Role Phone Elsewhere, Pcp Primary Care Provider Unavailabl e Encounter Details Date Type Department Care Team (Late st Contact Info) Description 04/16/2024 12:05 AM CDT Ancillary Procedure Department of Ophthalmology Social History Tobacco Use Types Packs/Day Years Used Date Smoking Tobacco: Former Cigarettes 0.7 70.4 0 03/28/1975 - 01/09/2022 Smokeless Tobacco: Never Comments:On again off again Alcohol Use Standard Drinks/Week Comments Yes 5 (1 standard drink = 0.6 oz pur e alcohol) occasional C Utilities Answer Date Recorded In the past [...] How often do you attend jainism or church serv ices? Never 06/27/2020 Do you belong [...] living? No 11/05/2023 Nutrition Answer Date Recorded On average, how many serving s of [...] Department Care Team (Latest Contact Info) Description 04/27/2024 11:45 AM CDT Hospital Encounter [facility] [place] [phone] Prakash Graham M.D. [address] [place] [phone] 04/27/2024 11:45 AM CDT - 04/27/2024 2:42 PM CDT Surgery [facility] OR [address] [place] [phone] Prakash Graham M.D. [address] [place] [phone] VITRECTOMY - PARS PLANA 25 GAUGE / MEMBRANE PEEL / SILICONE OIL / SCLERAL BUCKLE AND ALL ASSOCIATED PROCEDURES RIGHT EYE 04/28/2024 8:00 AM CDT Office Visit Department of Ophthalmology in [address] [phone] Prakash Graham M.D. [address] [place] [phone] 05/05/2024 1:15 PM CDT Ancillary Procedure Department of Ophthalmology in [place], [place] [address] [place] [phone] Prakash Graham M.D. [address] [place] [phone] 05/05/2024 1:45 PM CDT Office Visit Department of Ophthalmology in [place], [place] [address] [place] [phone] Prakash Graham M.D. [address] [place] [phone] 06/02/2024 8:15 AM CDT Ancillary Procedure Department of Ophthalmology in [place], [place] [address] [place] [phone] Prakash Graahm M.D. [address] [place] [phone] 06/02/2024 8:45 AM CDT Ancillary Procedure Department of Ophthalmology in [place], [place] [address] [place] [phone] Prakash Graham M.D. [address] [place] [phone] 06/02/2024 9:00 AM CDT Office Visit Department of Ophthalmology in [place], [place] [address] [place] [phone] Prakash Graham M.D. [address] [place] [phone] Scheduled Procedures Name Priority Associated Diagnoses Date/Ti ut VITRECTOMY - PARS PLANA 25 GAUGE Panuveitis Right Necrosis Retinal Acute Right 04/27/2024 11:45 AM CDT SCLERAL BUCKLING Panuveitis Right Necrosis Retinal Acute Right 04/27/2024 11:45 AM CDT documented as of this encounter Procedures Procedure Name Priority Date/Time Associated Diagnosis Comments OPHTHALMOLOGY IMAGE EXAM Routine 04/16/2024 12:05 AM CDT documented in this encounter Results * Eyes [facility]-Ophthalmology Image Exam (04/16/2024 12:05 AM CDT) Narrative [facility] - 04/16/2024 2:48 PM CDT This order has been created and auto-finalized to support the import of images acquired without order. The clinical documentation to support these images can be found on the encounter that produced images. Provider Not In System IMG NON RAD IMAGI NG PROCEDURES [facility] NA documented in this encounter Visit Diagnoses Not on filedocumented in this encounter Care Teams Axle Polisher Relationship Specialty Start Date End Date Elsewhere, Pcp PCP - General Internal Medicine 05/29/19 documented as of this encounter
--- OUTSIDE RECORDS SUMMARY | 2024-04-22 08:06 | XMS_ITS | Clinical Summary ---
Author Organization [facility] Address [address] [place] [address] Care Team Providers Care Reducing Machine Operator Name Role Phone Elsewhere, Pcp Primary Care Provider Unavailabl e Source Comments Patient records contain information from all sites at [facility]. For routine questions regarding patient records, call [phone] during business hours, M-F 8:00 AM - 5:00 PM Central Time. Record requests for emergency care only can be directed to [phone] at any time.[facility] Allergies Active Allergy Reactions Criticality Noted Date Comments Aller Xt-[place] Pollen-[place] Blisters,Itching,Ra sh High 06/21/2020 Methotrexate Other (see comments) High 03/24/2024 Interacted with other medications - and pt reports getting very sick from it. Hospitalized. Medications Medication Sig Dispensed Refills Start Date End Date Status atorvastatin (LIPITOR) 40 mg tablet Take 40 mg by mouth daily. 6 Active aspirin (ADULT LOW DOSE ASPIRIN) [address] tablet Take 81 mg by mouth daily. 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 90 tablet 3 0 Active albuterol inhaler 0 Active ipratropium-alb uteroL (DUONEB) 0.5-2.5 mg/3 mL nebulizer solution INHALE ONE VIAL VIA NEBULIZER EVERY 4 HOURS FOR 3 DAYS AND THEN CAN DECREASE TO NEEDED. 0 Active umeclidinium-vi lanteroL (ANORO ELLIPTA) 62.5-25 mcg/actuation inhalerIndicati ons:Chronic Obstructive Pulmonary Disease (HCC) Inhale 1 puff once daily. 1 each 11 0 Active valACYclovir (VALTREX) 1000 mg tablet Take [...] DAYS. 70 tablet 4 04/28/20 24 Active lisinopriL (PRINIVIL,ZESTR IL) 20 mg tablet Take 20 mg by mouth daily. 4 Active amLODIPine (NORVASC) 5 mg tablet Take 5 mg by mouth daily. Active fexofenadine (DINAH) 180 mg tablet Take 180 mg by mouth daily. Active magnesium oxide (MAG-OX) 400 mg (241.3 mg magnesium) tablet Take 400 mg by mouth daily. Active metFORMIN (GLUCOPHAGE) 1,000 mg tablet Take 1,000 mg by mouth daily. 4 Active nitroglycerin (NITROSTAT) 0.[address] 0.4 mg under the tongue as needed. NEEDED - hasn't used in over ten years Active glycerin (Biotrue Hydration Boost) 0.5 % drops Administer into affected eye(s) 3 (three) times a day. Active difluprednate (DurezoL) 0.05 % ophthalmic emulsion Administer 1 drop into the right eye 2 (two) times a day. Stop prednisolone when you start difluprednate 5 mL 3 4 Active lisinopril (PRINIVIL,ZESTR IL) 40 mg tablet Take 20 mg by mouth daily. 7 04/14/20 24 Discontinued difluprednate (DUREZOL) 0.05 % ophthalmic emulsion Administer 1 drop into the right eye 4 (four) times a day. Stop prednisolone when you start difluprednate 5 mL 3 4 04/16/20 24 Discontinued(Re order) predniSONE (DELTASONE) 10 mg tablet Take 4 tablets (40 mg total) by mouth daily for 7 days, THEN 3 tablets (30 mg total) daily for 7 days, THEN 2 tablets (20 mg total) daily for 7 days, THEN 1 tablet (10 mg total) daily for 7 days. 70 tablet 4 04/01/20 24 Discontinued carboxymethylce llulose sodium 1 % drops Administer 1 drop into affected eye(s) 3 (three) times a day. 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 04/16/2024 2:00 PM CDT Ancillary Procedure Department of Ophthalmology in [place], [place] [address] [place] [address] Kenya Garza M.D. Necrosis Retinal Acute Right 04/16/2024 1:00 PM CDT Ancillary Procedure Department of Ophthalmology in [place], [place] [address] [place] [address] Kenya Garza M.D. Necrosis Retinal Acute Right 04/16/2024 12:05 AM CDT Ancillary Procedure Department of Ophthalmology 04/16/2024 Ancillary Procedure Department of Ophthalmology 04/14/2024 2:30 PM CDT Office Visit Department of Ophthalmology in [place], [place] [address] [place] [phone] Prakash Graham M.D. Panuveitis Right (Primary Dx); Proliferative Vitreoretinopathy Right 04/14/2024 2:10 PM CDT Ancillary Procedure Department of Ophthalmology in [place], [place] [address] [place] [phone] Prakash Graham M.D. Panuveitis Right; Necrosis Retinal Acute Right 04/14/2024 11:00 AM CDT Comprehensive Visit Preoperative Evaluation Center in [place], [place] [address] [place] [phone] Prakash Graham M.D. Warner, Paul A, M.D. Panuveitis Right; Necrosis Retinal Acute Right 04/14/2024 Ancillary Procedure Department of Ophthalmology 04/10/2024 Refill Department of Ophthalmology in [place], [place] [address] [place] [phone] Kenya Garza M.D. Med Refill 04/01/2024 Refill Department of Ophthalmology in [place], [place] [address] [place] [phone] Raffi Boyd M.D. Med Refill 03/16/2024 Orders Only Department of Ophthalmology in [address] [phone] Shahnaz Amato C.ODixie Necrosis Retinal Acute Right (Primary Dx) 03/16/2024 Orders Only Department of Ophthalmology in [place], [place] [address] [place] [phone] Jean Claude Newsome C.O.AWhitney Panuveitis Right (Primary Dx); Necrosis Retinal Acute Right 03/14/2024 Orders Only Department of Ophthalmology in [place], [place] [address] [place] [phone] Raffi Boyd M.D. 03/13/2024 2:00 PM CDT Procedure visit Department of Ophthalmology in [place], [place] [address] [place] [phone] Prakash Graham M.D. Primary Hypotony Right Eye (Primary Dx); Panuveitis Right; Necrosis Retinal Acute Right 03/13/2024 1:00 PM CDT Office Visit Department of Ophthalmology in [place], [place] [address] [place] [phone] Prakash Graham M.D. Panuveitis Right (Primary Dx); Necrosis Retinal Acute Right 03/13/2024 12:00 PM CDT Ancillary Procedure Department of Ophthalmology in [place], [place] [address] [place] [phone] Kenya Garza M.D. Panuveitis Right; Necrosis Retinal Acute Right 03/13/2024 11:30 AM CDT Office Visit Department of Ophthalmology in [place], [place] [address] [place] [phone] Kenya Garza M.D. Necrosis Retinal Acute Right (Primary Dx); Panuveitis Right 03/13/2024 8:00 AM CDT Ancillary Procedure Department of Ophthalmology in [place], [place] [address] [place] [phone] Kneya Garza M.D. Panuveitis Right; Necrosis Retinal Acute Right 03/13/2024 12:10 AM CDT Ancillary Procedure Department of Ophthalmology 03/13/2024 12:05 AM CDT Ancillary Procedure Department of Ophthalmology 03/13/2024 Orders Only Department of Ophthalmology in [place], [place] [address] [place] [phone] Jean Claude Newsome C.ODixie Necrosis Retinal Acute Right (Primary Dx) 03/13/2024 Ancillary Procedure Department of Ophthalmology 03/11/2024 Clinical Communication Department of Ophthalmology in [place], [place] [address] [place] [phone] Kenya Garza M.D. 03/10/2024 Clinical Communication Department of Ophthalmology in [place], [place] [address] [place] [phone] Kenya Garza M.D. 02/25/2024 4:30 PM CDT Telemedicine Department of Neurology in [place], [place] [address] [place] [phone] Piter Baez M.D. Posterior Reversible Encephalopathy Syndrome (Primary Dx) 02/20/2024 3:05 PM CDT - 02/20/2024 11:59 PM CDT Hospital Encounter Department of Radiology, [facility] in [place], [place] [address] [place] [phone] Piter Baez M.D. Posterior Reversible Encephalopathy Syndrome Discharge Disposition: Home or Self Care 02/20/2024 1:00 PM CDT Comprehensive Visit Department of Neurology in [place], [place] [address] [place] [phone] Piter Baez M.D. Posterior Reversible Encephalopathy Syndrome 02/20/2024 11:15 AM CDT Office Visit Department of Ophthalmology in [place], [place] [address] [place] [phone] Kenya Garza M.D. Panuveitis Right (Primary Dx); Necrosis Retinal Acute Right 02/20/2024 10:00 AM CDT Ancillary Procedure Department of Ophthalmology in [place], [place] [address] [place] [phone] Kenya Garza M.D. Panuveitis Right; Necrosis Retinal Acute Right 02/20/2024 9:50 AM CDT Ancillary Procedure Department of Ophthalmology in [place], [place] [address] [place] [phone] Kenya Garza M.D. Panuveitis Right; Necrosis Retinal Acute Right 02/20/2024 12:10 AM CDT Ancillary Procedure Department of Ophthalmology 02/20/2024 12:05 AM CDT Ancillary Procedure Department of Ophthalmology 02/20/2024 Ancillary Procedure Department of Ophthalmology 01/31/2024 Clinical Communication Department of Neurology in [place], [place] [address] [place] [address] Piter Baez M.D. Pre-visit Testing Orders 01/23/2024 12:00 PM CDT Office Visit Department of Ophthalmology in [place], [place] [address] [place] [address] Kenya Garza M.D. Panuveitis Right (Primary Dx); Necrosis Retinal Acute Right from Last 3 Months Family History Medical History Relation Name Comments Lymphoma Brother Kannan Thibodeaux 2018 Prostate cancer Father Podho 2000 Stroke Father Podhora Coronary artery disease Mother Afia Thibodeaux Not sure of dates no bypass Diabetes Mother Afia Thibodeaux Heart attack Mother Afia Thibodeaux Relation Name Status Comments Brothhilda Thibodeaux Father Rossho Mother Afia Thibodeaux Social History Tobacco Use Types Packs/Day Years Used Date Smoking Tobacco: Former Cigarettes 0.7 70.4 0 03/28/1975 - 01/09/2022 Smokeless Tobacco: Never Tobacco Cessation:Counseling Given: Not Answered Comments:On again off again Alcohol Use Standard Drinks/Week Comments Yes 5 (1 standard drink = 0.6 oz pur e alcohol) occasional [employer] Utilities Answer Date Recorded In the past 12 months has [employer] electric, gas, oil, or water company threatened [...] medical care, and heating? Somewhat hard 06/27/2020 [facility] - Occupational [...] your living situation today? I have a [facility] place to live 11/05/2023 Education [...] Sign Reading Time Taken Comments Blood Pressure 152/75 04/14/2024 10:53 AM CDT Pulse 57 04/14/2024 10:53 AM CDT Temperature 36 ??C (96.8 ??F) 04/14/2024 10: 53 AM CDT Respiratory Rate - - Oxygen Saturation 96% 04/14/2024 10: 53 AM CDT Inhaled Oxygen Concentration - - Weight 88.3 kg (194 lb 10.7 oz) 024 10:53 AM CDT Height 172 cm (5' 7.72) 04/14/2024 10: 53 AM CDT Body Mass Index 29.85 04/14/2024 10:53 AM CDT Plan of Treatment Upcoming Encounters Date Type Department Care Team (Latest Contact Info) Description 04/27/2024 11:45 AM CDT Hospital Encounter [facility] [place] [address] [place] [phone] Prakash Graham M.D. [address] [place] [phone] 04/27/2024 11:45 AM CDT - 04/27/2024 2:42 PM CDT Surgery [facility] [place] [address] [place] [phone] Prakash Graham M.D. [address] [place] [phone] VITRECTOMY - PARS PLANA 25 GAUGE / MEMBRANE PEEL / SILICONE OIL / SCLERAL BUCKLE AND ALL ASSOCIATED PROCEDURES RIGHT EYE 04/28/2024 8:00 AM CDT Office Visit Department of Ophthalmology in [place], [place] [address] [place] [phone] Prakash Graham M.D. [address] [place] [phone] 05/05/2024 1:15 PM CDT Ancillary Procedure Department of Ophthalmology in [place], [place] [address] [place] [phone] Prakash Graham M.D. [address] [place] [phone] 05/05/2024 1:45 PM CDT Office Visit Department of Ophthalmology in [place], [place] [address] [place] [phone] Prakash Graham M.D. [address] [place] [phone] 06/02/2024 8:15 AM CDT Ancillary Procedure Department of Ophthalmology in [place], [place] [address] [place] [phone] Prakash Graham M.D. [address] [place] [phone] 06/02/2024 8:45 AM CDT Ancillary Procedure Department of Ophthalmology in [place], [place] [address] [place] [phone] Prakash Graham M.D. [address] [place] [phone] 06/02/2024 9:00 AM CDT Office Visit Department of Ophthalmology in [address] [phone] Prakash Graham M.D. [address] [place] [phone] Scheduled Procedures Name Priority Associated Diagnoses Date/Ti me VITRECTOMY - PARS PLANA 25 GAUGE Panuveitis Right Necrosis Retinal Acute Right 04/27/2024 11:45 AM CDT SCLERAL BUCKLING Panuveitis Right Necrosis Retinal Acute Right 04/27/2024 11:45 AM CDT Health Maintenance Due Date Last Done Comments Bone Density Scan (Osteoporosis Screen) 1957 CT Colonography 1957 Colonoscopy 1957 FIT 1957 Hepatitis C Screening 1957 Lipid (Cholesterol) Screening 1957 Mammogram 1957 Lung Cancer Screening 03/31/2021 03/31/2020 COVID-19 Vaccine ( season) 2023 07/18/2021, 02/14/2021, 01/24/2021 Depression Screening (Annual PHQ-2) 10/28/2023 Fall Risk Screen (Annual) 10/28/2023 Office Visit for Blood Pressure Check / Re-check 07/15/2024 04/14/2024 Creatinine Level (Kidney Function Test) 01/12/2025 01/13/2024, 01/12/2024, 01/11/2024, Additional history [...] 02/23/2022, 07/04/2021 Pneumococcal vaccine (65+ years) Completed 01/23/2023, 06/24/2018 Influenza Vaccine Completed 07/23/2023, , 08/14/2019, Additional history exists HPV Vaccines Aged Out No longer eligi ble based on patient's age to complete this topic Medical Devices Implanted Type Area Client Specialist Device Identifier Shelf Expiration Date Model / Serial / Lot Stent Other Stent Other Chest Description:Has stent but un sure of placement Procedures Procedure Name Priority Date/Time Associated Diagnosis Comments ULTRASOUND BIOMICROSCOPY - OD - RIGHT Routine 04/16/2024 3:09 PM CDT Necrosis Retinal Acute Right B SCAN - OD - RIGHT EYE Routine 04/16/2024 3:09 PM CDT Necrosis Retinal Acute Right OPHTHALMOLOGY IMAGE EXAM Routine 04/16/2024 12:05 AM CDT OPHTHALMOLOGY IMAGE EXAM Routine 04/16/2024 12:00 AM CDT OPTICAL COHERENCE TOMOGRAPHY - MACULA/RETINA - OU - BOTH EYES Routine 04/14/2024 2:22 PM CDT Panuveitis Right Necrosis Retinal Acute Right OPHTHALMOLOGY IMAGE EXAM Routine 04/14/2024 12:00 AM CDT OUTSIDE NM PET Routine 03/19/2024 6:30 PM [...] Recently Relevant to Health Maintenance Results * Ultrasound Biomicroscopy (UBM) - OD - Right Eye (04/16/2024 3:09 PM CDT) Narrative OPHTHALMOL NON-IMAGING ORDERS - 04/16/2024 4:09 PM CDT 04/16/2024 B-Scan Right Eye: dense vitreous opacities, probable posterior vitreous detachment, vitreous membranes possibly extending to disc, cannot rule out choroidal detachment, thickened fundus appearance. Dilated UBM Right Eye: minimal opacities in anterior chamber, ciliary body detachment noted, possible ciliochoroidal effusion. [facility] Kenya Garza M.D. OPHTH ULTRASOUND OPHTHALMOLGY NON-IMAGING ORDERS * B-Scan Ultrasound - OD - Right Eye (04/16/2024 3:09 PM CDT) Narrative OPHTHALMOLGY NON-IMAGING ORDERS - 04/16/2024 4:09 PM CDT 04/16/2024 B-Scan Right Eye: dense vitreous opacities, probable posterior vitreous detachment, vitreous membranes possibly extending to disc, cannot rule out choroidal detachment, thickened fundus appearance. Dilated UBM Right Eye: minimal opacities in anterior chamber, ciliary body detachment noted, possible ciliochoroidal effusion. [facility] Kenya Garza M.D. OPHTH ULTRASOUND Performing Organization Address [facility] Co de Phone Number OPHTHALMOLGY NON-IMAGING ORDERS * Eyes UBM-Ophthalmology Image Exam (04/16/2024 12:05 AM CDT) Only the most recent of8 resultswithin the time period is included. Narrative IIMS - 04/16/2024 2:48 PM CDT This order has been created and auto-finalized to support the import of images acquired without order. The clinical documentation to support these images can be found on the encounter that produced images. Provider Not In System IMG NON RAD IMAGI NG PROCEDURES Performing Organization Address [facility] de Phone Number IIMS NA * Optical Coherence Tomography - Macula/Retina - OU - Both Eyes (04/14/2024 2:22 PM CDT) Narrative OPHTHALMOLOGY IMAGING EXAM - 04/14/2024 4:40 PM CDT Right Eye OCT device used was Spectralis . Left Eye OCT device used was Spectralis . Notes See note from visit on 04/14/2024. Prakash Graham M.D. OPHTH TOMOGRAPHY Performing Organization Address [facility] Co de Phone Number OPHTHALMOLOGY IMAGING EXAM * PET skull to mid thigh-Outside NM [...] System IM NM PROCEDURES Performing Organization Address [facility] de Phone Number IIMS NA * Cyclophotocoagulation, [...] 9 o'clock right eye Prakash Graham M.D. [facility] PROCED URES Performing Organization Address [facility] de Phone Number OPHTHALMOL NON-IMAGING ORDERS [...] possible ciliochoroidal effusion. ZK Kenya Garza M.D. [facility] ULTRASOUND Performing Organization Address [facility] de Phone Number [facility] * B-Scan Ultrasound [...] M.D. OPHTH ULTRASOUND OPHTHALMOLGY NON-IMAGING ORDERS * MR Brain without and with IV [...] Garza M.D. OPHTH TOMOGRAPHY Performing Organization Address [facility] Co de Phone [...] Garza M.D. OPHTH ULTRASOUND Performing Organization Address [facility] Co de Phone Number OPHTHALMOL NON-IMAGING ORDERS * CT Chest with IV [...] Recently Relevant to Health Maintenance Care Teams Reducing Machine Operator Relationship Specialty Start Date End Date Elsewhere, Pcp PCP - General Internal Medicine 05/29/19
--- OUTSIDE RECORDS SUMMARY | 2024-04-22 08:06 | XMS_ITS | Encounter Summary ---
Author Organization [facility] Address [address] [place] [address] Care Team Providers Care Lens Cleaner Name Role Phone Elsewhere, Pcp Primary Care Provider Unavailabl e Encounter Details Date Type Department Care Team (Late st Contact Info) Description 04/16/2024 Ancillary Procedure Department of Ophthalmology Social History Tobacco Use Types Packs/Day Years Used Date Smoking Tobacco: Former Cigarettes 0.7 70.4 0 03/28/1975 - 01/09/2022 Smokeless Tobacco: Never Comments:On again off again Alcohol Use Standard Drinks/Week Comments Yes 5 (1 standard drink = 0.6 oz pur e alcohol) occasional C Utilities Answer Date Recorded In the past 12 months has [employer] electric, gas, oil, or water company threatened [...] often do you attend roman catholic or yazidi serv ices? Never 06/27/2020 Do you belong [...] Somewhat hard 06/27/2020 [facility] Stress Questionnaire Answer [...] 04/27/2024 11:45 AM CDT Hospital Encounter [facility] [place] [phone] Prakash Graham M.D. [address] [place] [phone] 04/27/2024 11:45 AM CDT - 04/27/2024 2:42 PM CDT Surgery [facility] [address] [place] [phone] Prakash Graham M.D. [address] [place] [phone] VITRECTOMY - PARS PLANA 25 GAUGE / MEMBRANE PEEL / SILICONE OIL / SCLERAL BUCKLE AND ALL ASSOCIATED PROCEDURES RIGHT EYE 04/28/2024 8:00 AM CDT Office Visit Department of Ophthalmology in [place], [place] [address] [place] [phone] Prakash Graham M.D. [address] [place] [phone] 05/05/2024 1:15 PM CDT Ancillary Procedure Department of Ophthalmology in [place], [place] [address] [place] [phone] Prakash Graham M.D. [address] [place] [phone] 05/05/2024 1:45 PM CDT Office Visit Department of Ophthalmology in [place], [place] [address] [place] [phone] Prakash Graham M.D. [address] [place] [phone] 06/02/2024 8:15 AM CDT Ancillary Procedure Department of Ophthalmology in [place], [place] [address] [place] [phone] Prakash Graham M.D. [address] [place] [phone] 06/02/2024 8:45 AM CDT Ancillary Procedure Department of Ophthalmology in [place], [place] [address] [place] [phone] Prakash Graham M.D. [address] [place] [phone] 06/02/2024 9:00 AM CDT Office Visit Department of Ophthalmology in [place], [place] [address] [place] [phone] Prakash Graham M.D. [address] [place] [phone] Scheduled Procedures Name Priority Associated Diagnoses Date/Ti ca VITRECTOMY - PARS PLANA 25 GAUGE Panuveitis Right Necrosis Retinal Acute Right 04/27/2024 11:45 AM CDT SCLERAL BUCKLING Panuveitis Right Necrosis Retinal Acute Right 04/27/2024 11:45 AM CDT documented as of this encounter Procedures Procedure Name Priority Date/Time Associated Diagnosis Comments OPHTHALMOLOGY IMAGE EXAM Routine 04/16/2024 12:00 AM CDT documented in this encounter Results * Eyes US-Eye [id number] Image Exam (04/16/2024 12:00 AM CDT) Narrative IIMS - 04/16/2024 2:48 [...] on filedocumented in this encounter Care Teams Lens Cleaner Relationship Specialty Start Date End Date Elsewhere, Pcp PCP - General Internal Medicine 05/29/19 documented as of this encounter
--- OUTSIDE RECORDS SUMMARY | 2024-04-22 08:06 | XMS_ITS | Referral Summary ---
Author Organization [facility] Address [address] [place] [address] Care Team Providers Care Saloonkeeper Name Role Phone Elsewhere, Pcp Primary Care Provider Unavailabl e Source Comments Patient records contain information from all sites at [facility]. For routine questions regarding patient records, call [phone] during business hours, M-F 8:00 AM - 5:00 PM Central Time. Record requests for emergency care only can be directed to [phone] at any time.[facility] Encounters Date Type Department Care Team Description 04/16/2024 12:05 AM CDT Ancillary Procedure Department of Ophthalmology 04/16/2024 Ancillary Procedure Department of Ophthalmology 04/16/2024 2:30 PM CDT Office Visit Department of Ophthalmology in [place], [place] [address] [place] [phone] Kenya Garza M.D. 04/16/2024 2:00 PM CDT Ancillary Procedure Department of Ophthalmology in [place], [place] [address] [place] [address] Kenya Garza M.D. Necrosis Retinal Acute Right 04/16/2024 1:00 PM CDT Ancillary Procedure Department of Ophthalmology in [place], [place] [address] [place] [address] Kenya Garza M.D. Necrosis Retinal Acute Right 04/14/2024 Ancillary Procedure Department of Ophthalmology 04/14/2024 2:30 PM CDT Office Visit Department of Ophthalmology in [place], [place] [address] [place] [address] Prakash Graham M.D. Panuveitis Right (Primary Dx); Proliferative Vitreoretinopathy Right 04/14/2024 2:10 PM CDT Ancillary Procedure Department of Ophthalmology in [place], [place] [address] [place] [phone] Prakash Graham M.D. Panuveitis Right; Necrosis Retinal Acute Right 04/14/2024 11:00 AM CDT Comprehensive Visit Preoperative Evaluation Center in [address] [phone] Prakash Graham M.D. Warner, Paul A, M.D. Panuveitis Right; Necrosis Retinal Acute Right 04/10/2024 Refill Department of Ophthalmology in [address] [phone] Kenya Garza M.D. Med Refill 04/01/2024 Refill Department of Ophthalmology in [address] [phone] Raffi Boyd M.D. Med Refill 03/16/2024 Orders Only Department of Ophthalmology in [place], [place] [address] [place] [phone] Shahnaz Amato, C.O.AWhitney Necrosis Retinal Acute Right (Primary Dx) 03/16/2024 Orders Only Department of Ophthalmology in [place], [place] [address] [place] [phone] Jean Claude Newsome C.OWhitneyAWhitney Panuveitis Right (Primary Dx); Necrosis Retinal Acute Right 03/14/2024 Orders Only Department of Ophthalmology in [place], [place] [address] [place] [phone] Raffi Boyd M.D. 03/13/2024 2:00 PM CDT Procedure visit Department of Ophthalmology in [address] [phone] Prakash Graham M.D. Primary Hypotony Right Eye (Primary Dx); Panuveitis Right; Necrosis Retinal Acute Right 03/13/2024 1:00 PM CDT Office Visit Department of Ophthalmology in [place], [place] [address] [place] [phone] Prakash Graham M.D. Panuveitis Right (Primary Dx); Necrosis Retinal Acute Right 03/13/2024 Orders Only Department of Ophthalmology in [place], [place] [address] [place] [phone] Jean Claude Newsome C.O.A. Necrosis Retinal Acute Right (Primary Dx) 03/13/2024 12:10 AM CDT Ancillary Procedure Department of Ophthalmology 03/13/2024 12:05 AM CDT Ancillary Procedure Department of Ophthalmology 03/13/2024 Ancillary Procedure Department of Ophthalmology 03/13/2024 12:00 PM CDT Ancillary Procedure Department of Ophthalmology in [place], [place] [address] [place] [phone] Kenya Garza M.D. Panuveitis Right; Necrosis Retinal Acute Right 03/13/2024 11:30 AM CDT Office Visit Department of Ophthalmology in [address] [phone] Kenya Garza M.D. Necrosis Retinal Acute Right (Primary Dx); Panuveitis Right 03/13/2024 8:00 AM CDT Ancillary Procedure Department of Ophthalmology in [address] [phone] Kenya Garza M.D. Panuveitis Right; Necrosis Retinal Acute Right 03/11/2024 Clinical Communication Department of Ophthalmology in [address] [phone] Kenya Garza M.D. 03/10/2024 Clinical Communication Department of Ophthalmology in [place], [place] [address] [place] [phone] Kenya Garza M.D. 02/25/2024 4:30 PM CDT Telemedicine Department of Neurology in [address] [phone] Piter Baez M.D. Posterior Reversible Encephalopathy Syndrome (Primary Dx) 02/20/2024 12:10 AM CDT Ancillary Procedure Department of Ophthalmology 02/20/2024 12:05 AM CDT Ancillary Procedure Department of Ophthalmology 02/20/2024 Ancillary Procedure Department of Ophthalmology 02/20/2024 3:05 PM CDT - 02/20/2024 11:59 PM CDT Hospital Encounter Department of Radiology, [facility] in [place], [place] [address] [place] [phone] Piter aBez M.D. Posterior Reversible Encephalopathy Syndrome Discharge Disposition: Home or Self Care 02/20/2024 1:00 PM CDT Comprehensive Visit Department of Neurology in [address] [address] Piter Baez M.D. Posterior Reversible Encephalopathy Syndrome 02/20/2024 11:15 AM CDT Office Visit Department of Ophthalmology in [address] [phone] Kenya Garza M.D. Panuveitis Right (Primary Dx); Necrosis Retinal Acute Right 02/20/2024 10:00 AM CDT Ancillary Procedure Department of Ophthalmology in [address] [phone] Kenya Garza M.D. Panuveitis Right; Necrosis Retinal Acute Right 02/20/2024 9:50 AM CDT Ancillary Procedure Department of Ophthalmology in [address] [phone] Kenya Garza M.D. Panuveitis Right; Necrosis Retinal Acute Right 01/31/2024 Clinical Communication Department of Neurology in [address] [phone] Piter Baez M.D. Pre-visit Testing Orders 01/23/2024 12:00 PM CDT Office Visit Department of Ophthalmology in [address] [phone] Kenya Garza M.D. Panuveitis Right (Primary Dx); Necrosis Retinal Acute Right from Last 3 Months Allergies Active Allergy Reactions Criticality Noted Date Comments Aller Xt-Counselor [place] Blisters,Itching,Ra sh High 06/21/2020 Methotrexate Other (see [...] = 0.6 oz pur e alcohol) occasional [facility] Utilities Answer Date Recorded In the past 12 months has [employer], gas, oil, or water company threatened [...] How often do you attend gnosticism or roman catholic serv ices? Never 06/27/2020 [...] care, and heating? Somewhat hard 06/27/2020 [facility] [place] of Occupat ional Health - Occupational [...] 11:45 AM CDT Hospital Encounter [facility] OR [address] [place] [phone] Prakash Graham M.D. [address] [place] [phone] 04/27/2024 11:45 AM CDT - 04/27/2024 2:42 PM CDT Surgery [facility] OR [address] [place] [phone] Prakash Graham M.D. [address] [place] [phone] VITRECTOMY - PARS PLANA 25 GAUGE / MEMBRANE PEEL / SILICONE OIL / SCLERAL BUCKLE AND ALL ASSOCIATED PROCEDURES RIGHT EYE 04/28/2024 8:00 AM CDT Office Visit Department of Ophthalmology in [place], [place] [address] [place] [phone] Prakash Graham M.D. [address] [place] [phone] 05/05/2024 1:15 PM CDT Ancillary Procedure Department of Ophthalmology in [place], [place] [address] [place] [phone] Prakash Graham M.D. [address] [place] [phone] 05/05/2024 1:45 PM CDT Office Visit Department of Ophthalmology in [place], [place] [address] [place] [phone] Prakash Graham M.D. [address] [place] [phone] 06/02/2024 8:15 AM CDT Ancillary Procedure Department of Ophthalmology in [place], [place] [address] [place] [phone] Prakash Graham M.D. [address] [place] [phone] 06/02/2024 8:45 AM CDT Ancillary Procedure Department of Ophthalmology in [place], [place] [address] [place] [phone] Prakash Graham M.D. [address] [place] [phone] 06/02/2024 9:00 AM CDT Office Visit Department of Ophthalmology in [place], [place] [address] [place] [phone] Prakash Graham M.D. [address] [place] [phone] Scheduled Procedures Name Priority Associated Diagnoses Date/Ti me VITRECTOMY - PARS PLANA 25 GAUGE Panuveitis Right Necrosis Retinal Acute Right 04/27/2024 11:45 AM CDT SCLERAL BUCKLING Panuveitis Right Necrosis Retinal Acute Right 04/27/2024 11:45 AM CDT Medical Devices Implanted Type Area Salesperson Surgical Appliances Device Identifier Shelf Expiration Date Model / [...] ciliary body detachment noted, possible ciliochoroidal effusion. [facility] Kenya Garza M.D. OPHTH ULTRASOUND OPHTHALMOL NON-IMAGING ORDERS * B-Scan Ultrasound - [...] ciliary body detachment noted, possible ciliochoroidal effusion. [facility] Kenya Garza M.D. OPHTH ULTRASOUND Performing Organization Address [facility] de Phone Number OPHTHALMOLGY NON-IMAGING [...] RAD IMAGI NG PROCEDURES Performing Organization Address [facility] de Phone Number [facility] * Optical Coherence Tomography - Macula/Retina - OU - Both Eyes (04/14/2024 2:22 PM CDT) Narrative OPHTHALMOLOGY IMAGING EXAM - 04/14/2024 4:40 PM CDT Right Eye OCT device used was Spectralis . Left Eye OCT device used was Spectralis . Notes See note from visit on 04/14/2024. Prakash Graham M.D. OPHTH TOMOGRAPHY Performing Organization Address [facility] de Phone Number OPHTHALMOLOGY IMAGING [...] System IMG NM PROCEDURES Performing Organization Address [facility] de Phone Number [facility] NA * Cyclophotocoagulation, Transscleral - OD - Right Eye (03/13/2024 3:49 PM CDT) Narrative OPHTHALMGY NON-IMAGING ORDERS - 03/13/2024 3:49 PM CDT Time Out Confirmed correct patient, procedure, site, and patient consented. Procedure Topical anesthesia was used. Post-op The patient tolerated the procedure well. There were no complications. The patient received written and verbal post procedure care education. Notes 6 spots of cryocyclopexy applied from 3 - 9 o'clock right eye Prakash Graham M.D. [facility] PROCED URES Performing Organization Address [facility] de Phone Number OPHTHALMOLGY NON-IMAGING ORDERS [...] possible ciliochoroidal effusion. BriannaK Kenya Garza M.D. [facility] ULTRASOUND Performing Organization Address [facility] de Phone Number [facility] NON-IMAGING ORDERS * B-Scan Ultrasound - OD [...] Garza M.D. OPHTH TOMOGRAPHY Performing Organization Address City/[facility]/ZIP Co de Phone Number OPHTHALMOLOGY IMAGING EXAM [...] ULTRASOUND Performing Organization Address [facility] Co de Phone Number OPHTHALMOL NON-IMAGING ORDERS [...] Recently Relevant to Health Maintenance Care Teams Saloonkeeper Relationship Specialty Start Date End Date Elsewhere, Pcp PCP - General Internal Medicine 05/29/19
--- OUTSIDE RECORDS SUMMARY | 2024-04-22 08:07 | XMS_ITS | Encounter Summary ---
Author Organization [facility] Address [address] [place] [address] Care Team Providers Care Information Systems Supervisor Name Role Phone Elsewhere, Pcp Primary Care Provider Unavailabl e Encounter Details Date Type Department Care Team (Late st Contact Info) Description 03/14/2024 Orders Only Department of Ophthalmology in [place], [place] [address] [place] [address] Raffi Boyd M.D. [address] [place] [address] Social History Tobacco Use Types Packs/Day Years Used Date Smoking Tobacco: Light Smoker Cigarettes 0.5 44.2 Started: 02/26/1980 Smokeless Tobacco: Never Comments:On again off again Alcohol Use Standard Drinks/Week Comments Yes 0 (1 standard drink = 0.6 oz pur e alcohol) [facility] Utilities Answer Date Recorded In the past 12 months has [employer], gas, oil, or water company threatened to [...] How often do you attend yazidism or amish serv ices? Never 06/27/2020 Do [...] medical care, and heating? Somewhat hard 06/27/2020 [facility] of Occupat ional Health - Occupational [...] your living situation today? [facility] 11/05/2023 Education Answer [...] 04/27/2024 11:45 AM CDT [facility] [place] [phone] Prakash Graham M.D. [address] [place] [phone] 04/27/2024 11:45 AM CDT - 04/27/2024 2:42 PM CDT Surgery [facility] OR [address] [place] [phone] Prakash Graham M.D. [address] [place] [phone] VITRECTOMY - PARS PLANA 25 GAUGE / MEMBRANE PEEL / SILICONE OIL / SCLERAL BUCKLE AND ALL ASSOCIATED PROCEDURES RIGHT EYE 04/28/2024 8:00 AM CDT Office Visit Department of Ophthalmology in [place], [place] [address] [place] [phone] Prakash Graham M.D. [address] [place] [phone] 05/05/2024 1:15 PM CDT Ancillary Procedure Department of Ophthalmology in [place], [place] [address] [place] [phone] Prakash Graham M.D. [address] [place] [phone] 05/05/2024 1:45 PM CDT Office Visit Department of Ophthalmology in [place], [place] [address] [place] [phone] Prakash Graham M.D. [address] [place] [phone] 06/02/2024 8:15 AM CDT Ancillary Procedure Department of Ophthalmology in [place], [place] [address] [place] [phone] Prakash Graham M.D. [address] [place] [phone] 06/02/2024 8:45 AM CDT Ancillary Procedure Department of Ophthalmology in [place], [place] [address] [place] [phone] Prakash Graham M.D. [address] [place] [phone] 06/02/2024 9:00 AM CDT Office Visit Department of Ophthalmology in [place], [place] [address] [place] [phone] Prakash Graham M.D. [address] [place] [phone] Scheduled Procedures Name Priority Associated Diagnoses Date/Ti me VITRECTOMY - PARS PLANA 25 GAUGE Panuveitis Right Necrosis Retinal Acute Right 04/27/2024 11:45 AM CDT SCLERAL BUCKLING Panuveitis Right Necrosis Retinal Acute Right 04/27/2024 11:45 AM CDT documented as of this encounter Visit Diagnoses Not on filedocumented in this encounter Care Teams Information Systems Supervisor Relationship Specialty Start Date End Date Elsewhere, Pcp PCP - General Internal Medicine 05/29/19 documented as of this encounter
--- OUTSIDE RECORDS SUMMARY | 2024-04-22 08:07 | XMS_ITS | Encounter Summary ---
Author Organization [facility] Address [address] [place] [address] Care Team Providers Care Budget Manager Name Role Phone Elsewhere, Pcp Primary Care Provider Unavailabl e Encounter Details Date Type Department Care Team (Late st Contact Info) Description 03/13/2024 Orders Only Department of Ophthalmology in [place], [place] [address] [place] [address] Jean Claude Newsome, C.O.A. Necrosis Retinal Acute Right (Primary Dx) Social History Tobacco Use Types Packs/Day Years Used Date Smoking Tobacco: Light Smoker Cigarettes 0.5 44.2 Started: 02/26/1980 Smokeless Tobacco: Never Comments:On again off again Alcohol Use Standard Drinks/Week Comments Yes 0 (1 standard drink = 0.6 oz pur e alcohol) [facility] Utilities Answer Date Recorded In the past 12 months has [employer], gas, oil, or water company threatened [...] How often do you attend taoism or evangelical serv ices? Never 06/27/2020 Do [...] care, and heating? Somewhat hard 06/27/2020 [facility] [place] of Occupat ional Health - Occupational Stress [...] your living situation today? I have a [facility] place to live 11/05/2023 Education [...] 04/27/2024 11:45 AM CDT [facility] [address] [place] [phone] Prakash Graham M.D. [address] [place] [phone] 04/27/2024 11:45 AM CDT - 04/27/2024 2:42 PM CDT Surgery [facility] OR [facility] [place] [phone] Prakash Graham M.D. [address] [place] [phone] VITRECTOMY - PARS PLANA 25 GAUGE / MEMBRANE PEEL / SILICONE OIL / SCLERAL BUCKLE AND ALL ASSOCIATED PROCEDURES RIGHT EYE 04/28/2024 8:00 AM CDT Office Visit Department of Ophthalmology in [place], [place] [address] [place] [phone] Prakash Graham M.D. [address] [place] [phone] 05/05/2024 1:15 PM CDT Ancillary Procedure Department of Ophthalmology in [place], [place] [address] [place] [phone] Prakash Graham M.D. [address] [place] [phone] 05/05/2024 1:45 PM CDT Office Visit Department of Ophthalmology in [place], [place] [address] [place] [phone] Prakash Graham M.D. [address] [place] [phone] 06/02/2024 8:15 AM CDT Ancillary Procedure Department of Ophthalmology in [place], [place] [address] [place] [phone] Prakash Graham M.D. [address] [place] [phone] 06/02/2024 8:45 AM CDT Ancillary Procedure Department of Ophthalmology in [place], [place] [address] [place] [phone] Prakash Graham M.D. [address] [place] [phone] 06/02/2024 9:00 AM CDT Office Visit Department of Ophthalmology in [place], [place] [address] [place] [phone] Prakash Graham M.D. [address] [place] [phone] Scheduled Procedures Name Priority Associated Diagnoses Date/Ti ma VITRECTOMY - PARS PLANA 25 GAUGE Panuveitis Right Necrosis Retinal Acute Right 04/27/2024 11:45 AM CDT SCLERAL BUCKLING Panuveitis Right Necrosis Retinal Acute Right 04/27/2024 11:45 AM CDT documented as of this encounter Visit Diagnoses Diagnosis Necrosis Retinal Acute Right- Primary Panuveitis Right Necrosis Retinal Acute Right documented in this encounter Care Teams Budget Manager Relationship Specialty Start Date End Date Elsewhere, Pcp PCP - General Internal Medicine 05/29/19 documented as of this encounter
--- OUTSIDE RECORDS SUMMARY | 2024-04-22 08:07 | XMS_ITS | Encounter Summary ---
Author Organization [facility] Address [address] [place] [address] Care Team Providers Care Drone Software Development Engineer Name Role Phone Elsewhere, Pcp Primary Care Provider Unavailabl e Reason for Visit * Reason Comments Med Refill Encounter Details Date Type Department Care Team ([facility] st Contact Info) Description 04/10/2024 Refill Department of Ophthalmology in [place], [place] [address] [place] [phone] Kenya Garza M.D. [address] [place] [address] Med Refill Social History Tobacco Use Types Packs/Day Years Used Date Smoking Tobacco: Light Smoker Cigarettes 0.5 44.2 Started: 02/26/1980 Smokeless Tobacco: Never Comments:On again off again Alcohol Use Standard Drinks/Week Comments Yes 0 (1 standard drink = 0.6 oz pur e alcohol) [facility] Utilities Answer Date Recorded In the past 12 months has [employer], gas, oil, or water [employer] threatened to shut off services in your home? No 11/05/2023 Social Connection and Isolation Panel [NHANES] A nswer Date Recorded In a typical week, how many times do you talk on the phone with family, friends, or neighbors? Once a week 06/27/2020 How often do you get together with friends or re latives? Never 06/27/2020 How often do you attend taoist or jew serv ices? Never 06/27/2020 Do [...] medical care, and heating? Somewhat hard 06/27/2020 [facility] of Occupat ional Health - Occupational Stress [...] your living situation today? I have a [facility] place to live 11/05/2023 Education [...] encounter Miscellaneous Notes * Telephone Encounter - Raffi Boyd M.D. - 04/15/2024 7:[address] Graham's note from 04/14. Thank you documented in this encounter Plan of Treatment Upcoming Encounters Date Type Department Care Team (Latest Contact Info) Description 04/27/2024 11:45 AM CDT Hospital Encounter [facility] OR [address] [place] [phone] Prakash Graham M.D. [address] [place] [phone] 04/27/2024 11:45 AM CDT - 04/27/2024 2:42 PM CDT Surgery [facility] OR [address] [place] [phone] Prakash Graham M.D. [address] [place] [phone] VITRECTOMY - PARS PLANA 25 GAUGE / MEMBRANE PEEL / SILICONE OIL / SCLERAL BUCKLE AND ALL ASSOCIATED PROCEDURES RIGHT EYE 04/28/2024 8:00 AM CDT Office Visit Department of Ophthalmology in [place], [place] [address] [place] [phone] Prakash Graham M.D. [address] [place] [phone] 05/05/2024 1:15 PM CDT Ancillary Procedure Department of Ophthalmology in [place], [place] [address] [place] [phone] Prakash Graham M.D. [address] [place] [phone] 05/05/2024 1:45 PM CDT Office Visit Department of Ophthalmology in [place], [place] [address] [place] [phone] Prakash Graham M.D. [address] [place] [phone] 06/02/2024 8:15 AM CDT Ancillary Procedure Department of Ophthalmology in [place], [place] [address] [place] [phone] Prakash Graham M.D. [address] [place] [phone] 06/02/2024 8:45 AM CDT Ancillary Procedure Department of Ophthalmology in [address] [phone] Prakash Graham M.D. [address] [place] [phone] 06/02/2024 9:00 AM CDT Office Visit Department of Ophthalmology in [address] [phone] Prakash Graham M.D. [address] [place] [phone] Scheduled Procedures Name Priority Associated Diagnoses Date/Ti me VITRECTOMY - PARS PLANA 25 GAUGE Panuveitis Right Necrosis Retinal Acute Right 04/27/2024 11:45 AM CDT SCLERAL BUCKLING Panuveitis Right Necrosis Retinal Acute Right 04/27/2024 11:45 AM CDT documented as of this encounter Visit Diagnoses Not on filedocumented in this encounter Care Teams Drone Software Development Engineer Relationship Specialty Start Date End Date Elsewhere, Pcp PCP - General Internal Medicine 05/29/19 documented as of this encounter
--- OUTSIDE RECORDS SUMMARY | 2024-04-22 08:07 | XMS_ITS | Encounter Summary ---
Author Organization [facility] Address [address] [place] [address] Care Team Providers Care Computer Repair Instructor Name Role Phone Elsewhere, Pcp Primary Care Provider Unavailabl e Reason for Referral * Outpatient (Routine) - Authorized Specialty Diagnoses / Procedures Referred By Apolinar lopez Referred To Contact Ophthalmology Kenya Garza M.D. [address] [place] [address] [facility] Referral ID Status Reason Start Date Expiration Date V isits Requested Visits Authorized [id number] Authorized 04/16/2024 10/16/2025 1 1 Scheduling Instructions I will see her on the same day as one of the post-op visits. (Probably the one after early May.) Reason for Visit * Reason Comments Follow-up * Outpatient (Routine) - Closed Specialty Diagnoses / Procedures Referred By Apolinar lopez Referred To Contact Ophthalmology Diagnoses Necrosis Retinal Acute Right Kenya Garza M.D. [address] [place] [address] [facility] Referral ID Status Reason Start Date Expiration Date Visits Re quested Visits Authorized [id number] Closed 03/13/2024 09/12/2025 1 1 Encounter Details Date Type Department Care Team (Late st Contact Info) Description 04/16/2024 2:30 PM CDT Office Visit Department of Ophthalmology in [place], [place] [address] [place] [phone] Kenya Garza M.D. [address] [place] [address] Social History Tobacco Use Types Packs/Day Years Used Date Smoking Tobacco: Former Cigarettes 0.7 70.4 0 03/28/1975 - 01/09/2022 Smokeless Tobacco: Never Comments:On again off again Alcohol Use Standard Drinks/Week Comments Yes 5 (1 standard drink = 0.6 oz pur e alcohol) occasional [facility] Utilities Answer Date Recorded In the past 12 months has th e electric, gas, oil, or water [employer] threatened to shut off services in your home? No 11/05/2023 Social Connection and Isolation Panel [NHANES] A nswer Date Recorded In a typical week, how many times do you talk on the phone with family, friends, or neighbors? Once a week 06/27/2020 How often do you get together with friends or re latives? Never 06/27/2020 How often do you attend sikh or scientology serv ices? Never 06/27/2020 Do you belong to any clubs o r organizations such as sikh groups, unions, fraternal or athletic groups, or [...] medical care, and heating? Somewhat hard 06/27/2020 [facility] of Occupat ional Health - Occupational Stress [...] living situation today? I have a [facility] place to live 11/05/2023 Education Answer [...] 04/27/2024 11:45 AM CDT Hospital Encounter [facility] [address] [place] [address] Prakash Graham M.D. [address] [place] [address] 04/27/2024 11:45 AM CDT - 04/27/2024 2:42 PM CDT Surgery [facility] [address] [place] [phone] Prakash Graham M.D. [address] [place] [phone] VITRECTOMY - PARS PLANA 25 GAUGE / MEMBRANE PEEL / SILICONE OIL / SCLERAL BUCKLE AND ALL ASSOCIATED PROCEDURES RIGHT EYE 04/28/2024 8:00 AM CDT Office Visit Department of Ophthalmology in [place], [place] [address] [place] [phone] Prakash Graham M.D. [address] [place] [phone] 05/05/2024 1:15 PM CDT Ancillary Procedure Department of Ophthalmology in [place], [place] [address] [place] [phone] Prakash Graham M.D. [address] [place] [phone] 05/05/2024 1:45 PM CDT Office Visit Department of Ophthalmology in [address] [phone] Prakash Graham M.D. [address] [place] [phone] 06/02/2024 8:15 AM CDT Ancillary Procedure Department of Ophthalmology in [place], [place] [address] [place] [phone] Prakash Graham M.D. [address] [place] [phone] 06/02/2024 8:45 AM CDT Ancillary Procedure Department of Ophthalmology in [place], [place] [address] [place] [address] Prakash Graham M.D. [address] [place] [address] 06/02/2024 9:00 AM CDT Office Visit Department of Ophthalmology in [place], [place] [address] [place] [address] Prakash Graham M.D. 200 [place] [address] Scheduled Procedures Name Priority Associated Diagnoses Date/Ti me VITRECTOMY - PARS PLANA 25 GAUGE Panuveitis Right Necrosis Retinal Acute Right 04/27/2024 11:45 AM CDT SCLERAL BUCKLING Panuveitis Right Necrosis Retinal Acute Right 04/27/2024 11:45 AM CDT Scheduled Referrals Name Type Priority Associated Diagnoses Order Schedule Ophthalmology office visit (clinic) Outpatient Referral Routine 1 Occurrences starting 04/16/2024 until 04/16/2027 documented as of this encounter Visit Diagnoses Not on filedocumented in this encounter Care Teams Computer Repair Instructor Relationship Specialty Start Date End Date Elsewhere, Pcp PCP - General Internal Medicine 05/29/19 documented as of this encounter
--- OUTSIDE RECORDS SUMMARY | 2024-04-22 08:07 | XMS_ITS | Encounter Summary ---
Author Organization [facility] Address [address] [place] [address] Care Team Providers Care Link Cutter Name Role Phone Elsewhere, Pcp Primary Care Provider Unavailabl e Reason for Referral * Outpatient (Routine) - Closed Specialty Diagnoses / Procedures Referred By Contmuriel t Referred To Contact Ophthalmology Prakash Graham M.D. [address] [place] [address] [facility] Referral ID Status Reason Start Date Expiration Date Visits Re quested Visits Authorized [id number] Closed 03/16/2024 09/15/2025 1 1 Encounter Details Date Type Department Care Team (Late st Contact Info) Description 03/16/2024 Orders Only Department of Ophthalmology in [place], [place] [address] [place] [phone] Jean Claude Newsome, C.O.A. Panuveitis Right (Primary Dx); Necrosis Retinal Acute Right Social History Tobacco Use Types Packs/Day Years Used Date Smoking Tobacco: Light Smoker Cigarettes 0.5 44.2 Started: 02/26/1980 Smokeless Tobacco: Never Comments:On again off again Alcohol Use Standard Drinks/Week Comments Yes 0 (1 standard drink = 0.6 oz pur e alcohol) [facility] Utilities Answer Date [...] How often do you attend scientology or restoration serv ices? Never 06/27/2020 Do [...] medical care, and heating? Somewhat hard 06/27/2020 [facility] of Occupat ional Health - Occupational Stress [...] 04/27/2024 11:45 AM CDT [facility] [address] [place] [phone] Prakash Graham M.D. [address] [place] [phone] 04/27/2024 11:45 AM CDT - 04/27/2024 2:42 PM CDT [facility] [address] [place] [phone] Prakash Graham M.D. [address] [place] [phone] VITRECTOMY - PARS PLANA 25 GAUGE / MEMBRANE PEEL / SILICONE OIL / SCLERAL BUCKLE AND ALL ASSOCIATED PROCEDURES RIGHT EYE 04/28/2024 8:00 AM CDT Office Visit Department of Ophthalmology in [place], [place] [address] [place] [phone] Prakash Graham M.D. [address] [place] [phone] 05/05/2024 1:15 PM CDT Ancillary Procedure Department of Ophthalmology in [place], [place] [address] [place] [phone] Prakash Graham M.D. [address] [place] [phone] 05/05/2024 1:45 PM CDT Office Visit Department of Ophthalmology in [place], [place] [address] [place] [phone] Prakash Graham M.D. [address] [place] [phone] 06/02/2024 8:15 AM CDT Ancillary Procedure Department of Ophthalmology in [place], [place] [address] [place] [phone] Prakash Graham M.D. [address] [place] [phone] 06/02/2024 8:45 AM CDT Ancillary Procedure Department of Ophthalmology in [place], [place] [address] [place] [phone] Prakash Graham M.D. [address] [place] [phone] 06/02/2024 9:00 AM CDT Office Visit Department of Ophthalmology in [address] [phone] Prakash Graham M.D. [address] [place] [phone] Scheduled Procedures Name Priority Associated Diagnoses Date/Ti me VITRECTOMY - PARS PLANA 25 GAUGE Panuveitis Right Necrosis Retinal Acute Right 04/27/2024 11:45 AM CDT SCLERAL BUCKLING Panuveitis Right Necrosis Retinal Acute Right 04/27/2024 11:45 AM CDT Scheduled Referrals Name Type Priority Associated Diagnoses Order Schedule Ophthalmology office visit (clinic) Outpatient Referral Routine Expected: 04/16/2024, Expires: 06/16/2025 documented as of this encounter Results * Optical Coherence Tomography - Macula/Retina - OU - Both Eyes (04/14/2024 2:22 PM CDT) Narrative OPHTHALMOLOGY IMAGING EXAM - 04/14/2024 4:40 PM CDT Right Eye OCT device used was Spectralis . Left Eye OCT device used was Spectralis . Notes See note from visit on 04/14/2024. Prakash Graham M.D. OPHTH TOMOGRAPHY OPHTHALMOLOGY IMAGING EXAM documented in this encounter Visit Diagnoses Diagnosis Panuveitis Right Necrosis Retinal Acute Right Chronic Obstructive Pulmonary Disease Without Exacerbation (HCC) Panuveitis Right- Primary Necrosis Retinal Acute Right Panuveitis Right Necrosis Retinal Acute Right Panuveitis Right Necrosis Retinal Acute Right documented in this encounter Care Teams Link Cutter Relationship Specialty Start Date End Date Elsewhere, Pcp PCP - General Internal Medicine 05/29/19 documented as of this encounter
--- OUTSIDE RECORDS SUMMARY | 2024-04-22 08:07 | XMS_ITS | Encounter Summary ---
Author Organization [facility] Address [address] [place] [address] Care Team Providers Care Land Manager Name Role Phone Elsewhere, Pcp Primary Care Provider Unavailabl e Reason for Visit * Outpatient (Routine) - Closed Specialty Diagnoses / Procedures Referred By Contmuriel t Referred To Contact Anesthesiology Diagnoses Panuveitis Right Necrosis Retinal Acute Right Prakash Graham M.D. [address] [place] [phone] [facility] Referral ID Status Reason Start Date Expiration Date Visits Re quested Visits Authorized [id number] Closed 03/13/2024 09/12/2025 1 1 Encounter Details Date Type Department Care Team (Latest Contact Info) Description 04/14/2024 11:00 AM CDT Comprehensive Visit Preoperative Evaluation Center in [place], [place] [address] [place] [phone] Prakash Graham M.D. [address] [place] [phone] Franck Maldonado M.D. [address] [place] [phone] Panuveitis Right; Necrosis Retinal Acute Right Social History Tobacco Use Types Packs/Day Years Used Date Smoking Tobacco: Former Cigarettes 0.7 70.4 0 03/28/1975 - 01/09/2022 Smokeless Tobacco: Never Tobacco Cessation:Counseling Given: Not Answered Comments:On again off again Alcohol Use Standard Drinks/Week Comments Yes 5 (1 standard drink = 0.6 oz pur e alcohol) occasional [facility] Utilities Answer Date Recorded In the [...] How often do you attend scientology or church serv ices? Never 06/27/2020 Do [...] medical care, and heating? Somewhat hard 06/27/2020 [facility] of Occupat ional Health - Occupational Stress [...] living situation today? I have a [facility] place to live [...] Mass Index 29.85 04/14/2024 10:53 AM CDT documented in this encounter H&P Notes * Franck Maldonado M.D. - 04/14/2024 11:00 AM CDT REASON FOR VISIT: Preoperative Medical Evaluation REFERRING PHYSICIAN: Prakash Graham M.D. 04/27/2024: VITRECTOMY - PARS PLANA 25 GAUGE; Prakash Graham M.D. Surgery Specific Risk Classification: Low Risk HISTORY OF PRESENT ILLNESS Alexandra Dixon is a 68 y.o. female who is here for preanesthetic medical examination prior tothe planned procedure as listed above. OBJECTIVE OBJECTIVE PHYSICAL EXAMINATION General/Constitutional Constitutional Assessment: Normal Airway (HEENT) Mallampati: II Dental Assessment: Dentition in poor repair Cardiovascular Rhythm: Regular Rate: Normal Pulmonary Pulmonary Assessment: Non labored Neurological Neurologic Assessment: Alert and oriented X 3 Musculoskeletal MSK Assessment: Normal Psychiatric Psychiatric Assessment: Calm Dermatology Skin Assessment: normal ASSESSMENT / PLAN 68 yo F (BMI 26) [facility] prior to outpatient R vitrectomy w/ Dr. Graham at [facility] on 04/27/2024. 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 # H/o hospitalization requiring ICU level cares for AMS w/ need for mechanical ventilation via oralETT and subsequent wean to CPAP in December 2023 for acute encephalopathy thought likely secondary to PRES after Neurology consultation w/ negative LP, blood cultures, and video EEG. # CAD s/p CABG (2000) later s/p PCI (2015) for graft thrombosis and NSTEMI (ASA 81 mg Lisionpril Metoprolol). # Multifocal ectopy (Holter 2018) (Metoprolol). # COPD (Anoro Ellipta). # Former custodial cigarette smoker, quit 2021. # H/o interstitial pneumonitis related to low-dose MTX with subsequent steroid treatment since hospitalization at [facility] in August 2023. # Bullous Pemphigoid (15 mg qD Prednisone, previously on MTX). # NIDDM T2 (A1C 7.7% on 01/20/24) (Metformin). # CLL (diagnosed 2018, has recently started Privigen for low IG levels). # No prior airway notes. # NKDA. # Frail dentition, but nothing overtly loose or painful. # Normal functional capacity. No other major chronic systemic medical conditions of note. Non-smoker. No JACKIE. Benign anesthesia history. # No alarming cardiopulmonary symptoms (orthopnea, PND, syncope, angina, WEATHERS). ECHOCARDIOGRAM (01/12/2024): 1. Normal left ventricular chamber size. Low normal left ventricular systolic function with beat tobeat variability due to ectopy. Estimated left ventricular ejection fraction is 50-55%. Mildly increased left ventricular wall thickness. No regional wall motion abnormalities. 2. Normal right ventricular chamber size. Borderline decreased right ventricular systolic function. 3. Findings consistent with normal left ventricular filling pressure. 4. No significant valvular heart disease. 5. Normal inferior vena cava with normal inspiratory collapse. 6. There were no prior studies available for comparison. Estimated EF: 50-55% NM CARDIAC MPI STRESS TEST (11/19/2023): 1. Adequate pharmacologic stress test with regadenoson and low level exercise. 2. Myocardial perfusion was normal accounting for soft-tissue artifact resulting in decreased counts in the basal to mid inferolateral wall. 3. Left ventricular cavity size was normal (resting EDV 99 ml). 4. Overall left ventricular systolic function was normal without wall motion abnormalities. The post stress LVEF was calculated to be 52%. 5. See separate report for EKG intrepretation. 6. Compared to prior study of February 04, 2018, there is no significant change. Coronary Angiography (2016): Summary/Conclusions PRESENTATION / INDICATIONS NonSTEMI DIAGNOSTIC SUMMARY 30% (small caliber vessel) stenosis in the LMCA 60% (small caliber vessel with diffuse disease) stenosis in the Mid LAD 100% stenosis in the Proximal Circumflex The RCA is dominant. 100% stenosis in the Proximal RCA The SVG graft from the Aorta to the 1st Diagonal is patent. 95% stenosis in the Aorta graft to RPDA (culprit) The NOEL to the LAD is occluded The SVG to the OM is occluded INTERVENTION 2mm x 15mm Balloon, Distal Embolic Protection, 4mm x 24mm Synergy Drug Eluting Stent, and 5mm x 15mm Balloon to Aorta graft to RPDA, post stenosis 0% SPECIAL PROCEDURES Right femoral arteriotomy was successfully closed utilizing a closure device RECOMMENDATIONS & PLAN Non-STEMI due to severe lesion in SVG to RCA. Successful PCI with Synergy MOHAMUD as above Plavix for 1 year - minimum ECG (12/2023): Sinus rhythm with short KS with occasional Premature ventricular complexes Septal infarct pattern PATIENT EDUCATION: Reviewed Instructions To Get Ready for Your Surgery or Procedure: [facility] [id number] rev 0124. Written and verbal instructions given on medication management beforesurgery. Reviewed instructions on avoiding aspirin, ibuprofen-containing medications, and supplements one week before surgery. Patient may take acetaminophen as needed for pain. RECOMMENDATIONS: # Consideration for chronic daily Prednisone use since 10/2023. # Hold Lisinopril day of surgery. # Hold Metformin 1 day prior to surgery. # Continue steroids and inhalers as prescribed. # Defer ASA to Dr. Graham, with whom she will be meeting later today. Do not eat anything past midnight prior to your procedure, but feel free to continue to drink non-particulate, water-based liquids (i.e., water, black coffee, clear tea, non-pulp juices, diet or regular soda) until you arrive for your procedure. Anesthetic plan was discussed in general terms. Specifics to be determined day of procedure with covering anesthesiologist. There were no barriers to understanding and all questions were answered. Patient medically optimized for planned procedure. Patient medically optimized for planned procedure: Yes I spent 45 minutes of total in consult. documented in this encounter Plan of Treatment Upcoming Encounters Date Type Department Care Team (Latest Contact Info) Description 04/27/2024 11:45 AM CDT Hospital Encounter [facility] [address] [place] [address] Prakash Graham M.D. [address] [place] [address] 04/27/2024 11:45 AM CDT - 04/27/2024 2:42 PM CDT Surgery [facility] [address] [place] [phone] Prakash Graham M.D. [address] [place] [phone] VITRECTOMY - PARS PLANA 25 GAUGE / MEMBRANE PEEL / SILICONE OIL / SCLERAL BUCKLE AND ALL ASSOCIATED PROCEDURES RIGHT EYE 04/28/2024 8:00 AM CDT Office Visit Department of Ophthalmology in [place], [place] [address] [place] [phone] Prakash Graham M.D. [address] [place] [phone] 05/05/2024 1:15 PM CDT Ancillary Procedure Department of Ophthalmology in [place], [place] [address] [place] [phone] Prakash Graham M.D. [address] [place] [phone] 05/05/2024 1:45 PM CDT Office Visit Department of Ophthalmology in [address] [phone] Prakash Graham M.D. [address] [place] [phone] 06/02/2024 8:15 AM CDT Ancillary Procedure Department of Ophthalmology in [place], [place] [address] [place] [phone] Prakash Graham M.D. [address] [place] [phone] 06/02/2024 8:45 AM CDT Ancillary Procedure Department of Ophthalmology in [place], [place] [address] [place] [address] Prakash Graham M.D. [address] [place] [address] 06/02/2024 9:00 AM CDT Office Visit Department of Ophthalmology in [place], [place] [address] [place] [address] Prakash Graham M.D. [address] [place] [address] Scheduled Procedures Name Priority Associated Diagnoses Date/Ti me VITRECTOMY - PARS PLANA 25 GAUGE Panuveitis Right Necrosis Retinal Acute Right 04/27/2024 11:45 AM CDT SCLERAL BUCKLING Panuveitis Right Necrosis Retinal Acute Right 04/27/2024 11:45 AM CDT documented as of this encounter Visit Diagnoses Diagnosis Panuveitis Right Necrosis Retinal Acute Right Chronic Obstructive Pulmonary Disease Without Exacerbation (HCC) Panuveitis Right Necrosis Retinal Acute Right Panuveitis Right Necrosis Retinal Acute Right documented in this encounter Care Teams Land Manager Relationship Specialty Start Date End Date Elsewhere, Pcp PCP - General Internal Medicine 05/29/19 documented as of this encounter
--- OUTSIDE RECORDS SUMMARY | 2024-04-22 08:07 | XMS_ITS | Encounter Summary ---
Author Organization [facility] Address [address] [place] [address] Care Team Providers Care Police Captain Name Role Phone Elsewhere, Pcp Primary Care Provider Unavailabl e Encounter Details Date Type Department Care Team (Late st Contact Info) Description 04/14/2024 Ancillary Procedure Department of Ophthalmology Social History Tobacco Use Types Packs/Day Years Used Date Smoking Tobacco: Former Cigarettes 0.7 70.4 0 03/28/1975 - 01/09/2022 Smokeless Tobacco: Never Comments:On again off again Alcohol Use Standard Drinks/Week Comments Yes 5 (1 standard drink = 0.6 oz pur e alcohol) occasional C Utilities Answer Date Recorded In the past 12 months has [employer], gas, oil, or water company threatened [...] Never 06/27/2020 How often do you attend anabaptist or quaker serv ices? Never 06/27/2020 Do you belong to any clubs o r organizations such as anabaptist groups, unions, fraternal or athletic groups, or [...] medical care, and heating? Somewhat hard 06/27/2020 [facility] - Occupational Stress Questionnaire Answer Date [...] 04/27/2024 11:45 AM CDT Hospital Encounter [facility] [place] [phone] Prakash Graham M.D. [address] [place] [phone] 04/27/2024 11:45 AM CDT - 04/27/2024 2:42 PM CDT Surgery [facility] [address] [place] [phone] Prakash Graham M.D. [address] [place] [phone] VITRECTOMY - PARS PLANA 25 GAUGE / MEMBRANE PEEL / SILICONE OIL / SCLERAL BUCKLE AND ALL ASSOCIATED PROCEDURES RIGHT EYE 04/28/2024 8:00 AM CDT Office Visit Department of Ophthalmology in [place], [place] [address] [place] [phone] Prakash Graham M.D. [address] [place] [phone] 05/05/2024 1:15 PM CDT Ancillary Procedure Department of Ophthalmology in [place], [place] [address] [place] [phone] Prakash Graham M.D. [address] [place] [phone] 05/05/2024 1:45 PM CDT Office Visit Department of Ophthalmology in [place], [place] [address] [place] [phone] Prakash Graham M.D. [address] [place] [phone] 06/02/2024 8:15 AM CDT Ancillary Procedure Department of Ophthalmology in [place], [place] [address] [place] [phone] Prakash Graham M.D. [address] [place] [phone] 06/02/2024 8:45 AM CDT Ancillary Procedure Department of Ophthalmology in [place], [place] [address] [place] [phone] Prakash Graham M.D. [address] [place] [phone] 06/02/2024 9:00 AM CDT Office Visit Department of Ophthalmology in [place], [place] [address] [place] [phone] Prakash Graham M.D. [address] [place] [phone] Scheduled Procedures Name Priority Associated Diagnoses Date/Ti ri VITRECTOMY - PARS PLANA 25 GAUGE Panuveitis Right Necrosis Retinal Acute Right 04/27/2024 11:45 AM CDT SCLERAL BUCKLING Panuveitis Right Necrosis Retinal Acute Right 04/27/2024 11:45 AM CDT documented as of this encounter Procedures Procedure Name Priority Date/Time Associated Diagnosis Comments OPHTHALMOLOGY IMAGE EXAM Routine 04/14/2024 12:00 AM CDT documented in this encounter Results * Eyes Spectralis OCT-Ophthalmology Image Exam (04/14/2024 12:00 AM CDT) Narrative IIMS - 04/14/2024 2:28 PM CDT This order has been created and auto-finalized to support the import of images acquired without order. The clinical documentation to support these images can be found on the encounter that produced images. Provider Not In System IMG NON RAD IMAGI NG PROCEDURES IIMS NA documented in this encounter Visit Diagnoses Not on filedocumented in this encounter Care Teams Police Captain Relationship Specialty Start Date End Date Elsewhere, Pcp PCP - General Internal Medicine 05/29/19 documented as of this encounter
--- OUTSIDE RECORDS SUMMARY | 2024-04-22 08:07 | XMS_ITS | Encounter Summary ---
Author Organization [facility] Address [address] [place] [address] Care Team Providers Care Rivet Flunky Name Role Phone Elsewhere, Pcp Primary Care Provider Unavailabl e Encounter Details Date Type Department Care Team (Latest Contact Info) Description 04/16/2024 2:00 PM CDT Ancillary Procedure Department of Ophthalmology in [place], [place] [address] [place] [address] Kenya Garza M.D. [address] [place] [address] Necrosis Retinal Acute Right Social History Tobacco Use Types Packs/Day Years Used Date Smoking Tobacco: Former Cigarettes 0.7 70.4 0 03/28/1975 - 01/09/2022 Smokeless Tobacco: Never Comments:On again off again Alcohol Use Standard Drinks/Week Comments Yes 5 (1 standard drink = 0.6 oz pur e alcohol) occasional [facility] Utilities Answer Date Recorded In the past 12 months has [employer], gas, oil, or water [employer] threatened to shut off services in your home? No 11/05/2023 Social Connection and Isolation Panel [NHANES] A nswer Date Recorded In a typical week, how many times do you talk on the phone with family, friends, or neighbors? Once a week 06/27/2020 How often do you get together with friends or re latives? Never 06/27/2020 How often do you attend mandaeism or christian serv ices? Never 06/27/2020 Do [...] your living situation today? I have a [facility] place to live 11/05/2023 Education [...] 04/27/2024 11:45 AM CDT Hospital Encounter [facility] [place] [address] [place] [phone] Prakash Graham M.D. [address] [place] [phone] 04/27/2024 11:45 AM CDT - 04/27/2024 2:42 PM CDT Surgery [facility] OR [address] [place] [phone] Prakash Graham M.D. [address] [place] [phone] VITRECTOMY - PARS PLANA 25 GAUGE / MEMBRANE PEEL / SILICONE OIL / SCLERAL BUCKLE AND ALL ASSOCIATED PROCEDURES RIGHT EYE 04/28/2024 8:00 AM CDT Office Visit Department of Ophthalmology in [place], [place] [address] [place] [phone] Prakash Graham M.D. [address] [place] [phone] 05/05/2024 1:15 PM CDT Ancillary Procedure Department of Ophthalmology in [place], [place] [address] [place] [phone] Prakash Graham M.D. [address] [place] [phone] 05/05/2024 1:45 PM CDT Office Visit Department of Ophthalmology in [place], [place] [address] [place] [phone] Prakash Graham M.D. [address] [place] [phone] 06/02/2024 8:15 AM CDT Ancillary Procedure Department of Ophthalmology in [place], [place] [address] [place] [phone] Prakash Graham M.D. [address] [place] [phone] 06/02/2024 8:45 AM CDT Ancillary Procedure Department of Ophthalmology in [place], [place] [address] [place] [phone] Prakash Graham M.D. [address] [place] [phone] 06/02/2024 9:00 AM CDT Office Visit Department of Ophthalmology in [place], [place] [address] [place] [phone] Prakash Graham M.D. [address] [place] [phone] Scheduled Procedures Name Priority Associated Diagnoses Date/Ti [...] 3:09 PM CDT Necrosis Retinal Acute Right documented in this [...] ciliary body detachment noted, possible ciliochoroidal effusion. [facility] Kenya Garza M.D. OPHTH ULTRASOUND OPHTHALMOLGY NON-IMAGING ORDERS documented in this encounter Visit Diagnoses Diagnosis Panuveitis Right Necrosis Retinal Acute Right Chronic Obstructive Pulmonary Disease Without Exacerbation (HCC) Necrosis Retinal Acute Right Panuveitis Right Necrosis Retinal Acute Right documented in this encounter Care Teams Rivet Flunky Relationship Specialty Start Date End Date Elsewhere, Pcp PCP - General Internal Medicine 05/29/19 documented as of this encounter
--- OUTSIDE RECORDS SUMMARY | 2024-04-22 08:07 | XMS_ITS | Encounter Summary ---
Author Organization [facility] Address [address] [place] [address] Care Team Providers Care Wash Oil Pump Operator Helper Name Role Phone Elsewhere, Pcp Primary Care Provider Unavailabl e Reason for Referral * Outpatient (Routine) - Closed Specialty Diagnoses / Procedures Referred By Apolinar lopez Referred To Contact Procedures Cyclophotocoagulation, Transscleral - OD - Right Eye Prakash Graham M.D. 200 [place] [address] [facility] Referral ID Status Reason Start Date Expiration Date Visits Re quested Visits Authorized [id number] Closed 03/13/2024 03/13/2025 1 1 Reason for Visit * Outpatient (Routine) - Canceled Specialty Diagnoses / Procedures Referred By Apolinar lopez Referred To Contact Diagnoses Panuveitis Right Necrosis Retinal Acute Right Procedures Intravitreal Injection, Pharmacologic Agent - OD - Right Eye Prakash Graham M.D. 200 [place] [address] [facility] Referral ID Status Reason Start Date Expiration Date V isits Requested Visits Authorized [id number] Canceled 03/13/2024 03/13/2025 1 1 Encounter Details Date Type Department Care Team (Latest Contact Info) Description 03/13/2024 2:00 PM CDT Procedure visit Department of Ophthalmology in [place], [place] [address] [place] [phone] Prakash Graham M.D. 200 [place] [address] Primary Hypotony Right Eye (Primary Dx); Panuveitis Right; Necrosis Retinal Acute Right Social History Tobacco Use Types Packs/Day Years Used Date Smoking Tobacco: Light Smoker Cigarettes 0.5 44.2 Started: 02/26/1980 Smokeless Tobacco: Never Comments:On again off again Alcohol Use Standard Drinks/Week Comments Yes 0 (1 standard drink = 0.6 oz pur e alcohol) [facility] Utilities Answer Date Recorded In [...] How often do you attend amish or baptism serv ices? Never 06/27/2020 Do [...] and heating? Somewhat hard 06/27/2020 [facility] [place] of Occupat ional Health - Occupational Stress [...] 11:45 AM CDT Hospital Encounter [facility] OR [address] [place] [phone] Prakash Graham M.D. [address] [place] [phone] 04/27/2024 11:45 AM CDT - 04/27/2024 2:42 PM CDT Surgery [facility] [address] [place] [phone] Prakash Graham M.D. [address] [place] [phone] VITRECTOMY - PARS PLANA 25 GAUGE / MEMBRANE PEEL / SILICONE OIL / SCLERAL BUCKLE AND ALL ASSOCIATED PROCEDURES RIGHT EYE 04/28/2024 8:00 AM CDT Office Visit Department of Ophthalmology in [place], [place] [address] [place] [phone] Prakash Graham M.D. [address] [place] [phone] 05/05/2024 1:15 PM CDT Ancillary Procedure Department of Ophthalmology in [place], [place] [address] [place] [phone] Prakash Graham M.D. [address] [place] [phone] 05/05/2024 1:45 PM CDT Office Visit Department of Ophthalmology in [place], [place] [address] [place] [phone] Prakash Graham M.D. [address] [place] [phone] 06/02/2024 8:15 AM CDT Ancillary Procedure Department of Ophthalmology in [place], [place] [address] [place] [address] Prakash Graham M.D. [address] [place] [phone] 06/02/2024 8:45 AM CDT Ancillary Procedure Department of Ophthalmology in [place], [place] [address] [place] [phone] Prakash Graham M.D. [address] [place] [phone] 06/02/2024 9:00 AM CDT Office Visit Department of Ophthalmology in [place], [place] [address] [place] [phone] Prakash Graham M.D. [address] [place] [phone] Scheduled Procedures Name Priority Associated Diagnoses Date/Ti [...] Prakash Graham M.D. OPHTH CLINIC PROCED URES OPHTHALMOLGY NON-IMAGING ORDERS documented in this encounter Visit Diagnoses Diagnosis Primary Hypotony Right Eye- Primary Panuveitis Right Necrosis Retinal Acute Right Panuveitis Right Necrosis Retinal Acute Right documented in this encounter Care Teams Wash Oil Pump Operator Helper Relationship Specialty Start Date End Date Elsewhere, Pcp PCP - General Internal Medicine 05/29/19 documented as of this encounter
--- OUTSIDE RECORDS SUMMARY | 2024-04-22 08:07 | XMS_ITS | Encounter Summary ---
Author Organization [facility] Address [address] [place] [address] Care Team Providers Care Gold Leaf Layer Name Role Phone Elsewhere, Pcp Primary Care Provider Unavailabl e Encounter Details Date Type Department Care Team (Late st Contact Info) Description 03/16/2024 Orders Only Department of Ophthalmology in [place], [place] [address] [place] [address] Shahnaz Amato, C.O.A. [address] [place] [address] Necrosis Retinal Acute Right (Primary Dx) Social History Tobacco Use Types Packs/Day Years Used Date Smoking Tobacco: Light Smoker Cigarettes 0.5 44.2 Started: 02/26/1980 Smokeless Tobacco: Never Comments:On again off again Alcohol Use Standard Drinks/Week Comments Yes 0 (1 standard drink = 0.6 oz pur e alcohol) [facility] Utilities Answer Date Recorded In the [...] How often do you attend confucianism or jehovah's witness serv ices? Never 06/27/2020 [...] medical care, and heating? Somewhat hard 06/27/2020 [facility] [place] of Occupat ional Health - Occupational Stress [...] 04/27/2024 11:45 AM CDT [facility] [place] [phone] Prakash Graham M.D. [address] [place] [phone] 04/27/2024 11:45 AM CDT - 04/27/2024 2:42 PM CDT Surgery [facility] OR [facility] [place] [phone] Prakash Graham M.D. [address] [place] [phone] VITRECTOMY - PARS PLANA 25 GAUGE / MEMBRANE PEEL / SILICONE OIL / SCLERAL BUCKLE AND ALL ASSOCIATED PROCEDURES RIGHT EYE 04/28/2024 8:00 AM CDT Office Visit Department of Ophthalmology in [place], [place] [address] [place] [phone] Prakash Graham M.D. [address] [place] [phone] 05/05/2024 1:15 PM CDT Ancillary Procedure Department of Ophthalmology in [place], [place] [address] [place] [phone] Prakash Graham M.D. [address] [place] [phone] 05/05/2024 1:45 PM CDT Office Visit Department of Ophthalmology in [place], [place] [address] [place] [phone] Prakash Graham M.D. [address] [place] [phone] 06/02/2024 8:15 AM CDT Ancillary Procedure Department of Ophthalmology in [place], [place] [address] [place] [phone] Prakash Graham M.D. [address] [place] [phone] 06/02/2024 8:45 AM CDT Ancillary Procedure Department of Ophthalmology in [place], [place] [address] [place] [phone] Prakash Graham M.D. [address] [place] [phone] 06/02/2024 9:00 AM CDT Office Visit Department of Ophthalmology in [place], [place] [address] [place] [phone] Prakash Graham M.D. [address] [place] [phone] Scheduled Procedures Name Priority Associated Diagnoses Date/Ti [...] body detachment noted, possible ciliochoroidal effusion. [facility] Kenya Garza M.D. OPH ULTRASOUND Performing Organization Address City/[facility] Co de Phone Number OPHTHALMOLGY [...] body detachment noted, possible ciliochoroidal effusion. [facility] Kenya Garza M.D. [facility] ULTRASOUND Performing Organization Address City/[facility] Co de Phone Number OPHTHALMOLGY NON-IMAGING ORDERS documented in this encounter Visit Diagnoses Diagnosis Panuveitis Right Necrosis Retinal Acute Right Chronic Obstructive Pulmonary Disease Without Exacerbation (HCC) Necrosis Retinal Acute Right- Primary Necrosis Retinal Acute Right Necrosis Retinal Acute Right Panuveitis Right Necrosis Retinal Acute Right documented in this encounter Care Teams Gold Leaf Layer Relationship Specialty Start Date End Date Elsewhere, Pcp PCP - General Internal Medicine 05/29/19 documented as of this encounter
--- OUTSIDE RECORDS SUMMARY | 2024-04-22 08:07 | XMS_ITS | Encounter Summary ---
Author Organization [facility] Address [address] [place] [address] Care Team Providers Care Doll Maker Name Role Phone Elsewhere, Pcp Primary Care Provider Unavailabl e Reason for Referral * Outpatient (Routine) - Authorized Specialty Diagnoses / Procedures Referred By Contac t Referred To Contact Ophthalmology Prakash Graham M.D. [address] [place] [address] [facility] Referral ID Status Reason Start Date Expiration Date V isits Requested Visits Authorized [id number] Authorized 03/13/2024 09/12/2025 1 1 Scheduling Instructions 1 MO PO Right Eye, DILATE / OCT OU * Outpatient (Routine) - Authorized Specialty Diagnoses / Procedures Referred By Contac t Referred To Contact Ophthalmology Prakash Graham M.D. [address] [place] [address] [facility] Referral ID Status Reason Start Date Expiration Date V isits Requested Visits Authorized [id number] Authorized 03/13/2024 09/12/2025 1 1 Scheduling Instructions 1 WK PO Right Eye, DILATE OD * Outpatient (Routine) - Authorized Specialty Diagnoses / Procedures Referred By Contac t Referred To Contact Ophthalmology Prakash Graham M.D. [address] [place] [address] [facility] Referral ID Status Reason Start Date Expiration Date V isits Requested Visits Authorized [id number] Authorized 03/13/2024 09/12/2025 1 1 Scheduling Instructions 1 DAY PO Right Eye * Outpatient (Routine) - Closed Specialty Diagnoses / Procedures Referred By Apolinar lopez Referred To Contact Anesthesiology Diagnoses Panuveitis Right Necrosis Retinal Acute Right Prakash Graham M.D. [address] [place] [address] [facility] Referral ID Status Reason Start Date Expiration Date Visits Re quested Visits Authorized [id number] Closed 03/13/2024 09/12/2025 1 1 * Outpatient (Routine) - Canceled Specialty Diagnoses / Procedures Referred By Apolinar lopez Referred To Contact Diagnoses Panuveitis Right Necrosis Retinal Acute Right Procedures Intravitreal Injection, Pharmacologic Agent - OD - Right Eye Prakash Graham M.D. [address] [place] [address] [facility] Referral ID Status Reason Start Date Expiration Date V isits Requested Visits Authorized [id number] Canceled 03/13/2024 03/13/2025 1 1 Encounter Details Date Type Department Care Team (Latest Contact Info) Description 03/13/2024 1:00 PM CDT Office Visit Department of Ophthalmology in [place], [place] [address] [place] [phone] Prakash Graham M.D. [address] [place] [phone] Panuveitis Right (Primary Dx); Necrosis Retinal Acute [...] How often do you attend spiritism or yazidism serv ices? Never 06/27/2020 Do [...] care, and heating? Somewhat hard 06/27/2020 [facility] [place] of Occupat ional Health - Occupational Stress [...] your living situation today? [facility] a [facility] live 11/05/2023 Education Answer [...] 11:45 AM CDT [facility] [place] [phone] Prakash Graham M.D. [address] [place] [phone] 04/27/2024 11:45 AM CDT - 04/27/2024 2:42 PM CDT [facility] [address] [place] [phone] Prakash Graham M.D. [address] [place] [phone] VITRECTOMY - PARS PLANA 25 GAUGE / MEMBRANE PEEL / SILICONE OIL / SCLERAL BUCKLE AND ALL ASSOCIATED PROCEDURES RIGHT EYE 04/28/2024 8:00 AM CDT Office Visit Department of Ophthalmology in [place], [place] [address] [place] [phone] Prakash Graham M.D. [address] [place] [phone] 05/05/2024 1:15 PM CDT Ancillary Procedure Department of Ophthalmology in [place], [place] [address] [place] [phone] Prakash Graham M.D. [address] [place] [phone] 05/05/2024 1:45 PM CDT Office Visit Department of Ophthalmology in [place], [place] [address] [place] [phone] Prakash Graham M.D. [address] [place] [phone] 06/02/2024 8:15 AM CDT Ancillary Procedure Department of Ophthalmology in [place], [place] [address] [place] [phone] Prakash Graham M.D. [address] [place] [phone] 06/02/2024 8:45 AM CDT Ancillary Procedure Department of Ophthalmology in [address] [phone] Prakash Graham M.D. [address] [place] [phone] 06/02/2024 9:00 AM CDT Office Visit Department of Ophthalmology in [address] [phone] Prakash Graham M.D. [address] [place] [phone] Scheduled Orders Name Type Priority Associated Diagnoses [...] Right documented in this encounter Care Teams Doll Maker Relationship Specialty Start Date End Date Elsewhere, Pcp PCP - General Internal Medicine 05/29/19 documented as of this encounter
--- OUTSIDE RECORDS SUMMARY | 2024-04-22 08:07 | XMS_ITS | Encounter Summary ---
Author Organization [facility] Address [address] [place] [phone] Care Team Providers Care Shoveler Name Role Phone Elsewhere, Pcp Primary Care Provider Unavailabl e Reason for Visit * Reason Comments Med Refill Encounter Details Date Type Department Care Team ([facility] st Contact Info) Description 04/01/2024 Refill Department of Ophthalmology in [place], [place] [address] [place] [phone] Raffi Boyd M.D. [address] [place] [phone] Med Refill Social History Tobacco Use Types Packs/Day Years Used Date Smoking Tobacco: Light Smoker Cigarettes 0.5 44.2 Started: 02/26/1980 Smokeless Tobacco: Never Comments:On again off again Alcohol Use Standard Drinks/Week Comments Yes 0 (1 standard drink = 0.6 oz pur e alcohol) [facility] Utilities Answer Date Recorded In the past 12 months has [employer], gas, oil, or water [employer] threatened to shut off services in your home? No 11/05/2023 Social Connection and Isolation Panel [NHANES] A nswer Date Recorded In a typical week, how many times do you talk on the phone with family, friends, or neighbors? Once a week 06/27/2020 How often do you get together with friends or re latives? Never 06/27/2020 How often do you attend rastafarian or muslim serv ices? Never 06/27/2020 Do [...] medical care, and heating? Somewhat hard 06/27/2020 [facility] [place] of Occupat ional Health - Occupational Stress [...] living situation today? I have a [facility] place to live 11/05/2023 Education [...] 04/27/2024 11:45 AM CDT Hospital Encounter [facility] OR [facility] [address] [place] [phone] Prakash Graham M.D. [address] [place] [phone] 04/27/2024 11:45 AM CDT - 04/27/2024 2:42 PM CDT Surgery [facility] OR [address] [place] [phone] Prakash Graham M.D. [address] [place] [phone] VITRECTOMY - PARS PLANA 25 GAUGE / MEMBRANE PEEL / SILICONE OIL / SCLERAL BUCKLE AND ALL ASSOCIATED PROCEDURES RIGHT EYE 04/28/2024 8:00 AM CDT Office Visit Department of Ophthalmology in [place], [place] [address] [place] [phone] Prakash Garham M.D. [address] [place] [phone] 05/05/2024 1:15 PM CDT Ancillary Procedure Department of Ophthalmology in [place], [place] [address] [place] [phone] Prakash Graham M.D. [address] [place] [phone] 05/05/2024 1:45 PM CDT Office Visit Department of Ophthalmology in [place], [place] [address] [place] [phone] Prakash Graham M.D. [address] [place] [phone] 06/02/2024 8:15 AM CDT Ancillary Procedure Department of Ophthalmology in [place], [place] [address] [place] [phone] Prakash Graham M.D. [address] [place] [phone] 06/02/2024 8:45 AM CDT Ancillary Procedure Department of Ophthalmology in [place], [place] [address] [place] [phone] Prakash Graham M.D. [address] [place] [phone] 06/02/2024 9:00 AM CDT Office Visit Department of Ophthalmology in [place], [place] [address] [place] [phone] Prakash Graham M.D. [address] [place] [phone] Scheduled Procedures Name Priority Associated Diagnoses Date/Ti me VITRECTOMY - PARS PLANA 25 GAUGE Panuveitis Right Necrosis Retinal Acute Right 04/27/2024 11:45 AM CDT SCLERAL [place]CKL[place] Panuveitis Right Necrosis Retinal Acute Right 04/27/2024 11:45 AM CDT documented as of this encounter Visit Diagnoses Not on filedocumented in this encounter Care Teams Shoveler Relationship Specialty Start Date End Date Elsewhere, Pcp PCP - General Internal Medicine 05/29/19 documented as of this encounter
--- OUTSIDE RECORDS SUMMARY | 2024-04-22 08:07 | XMS_ITS | Encounter Summary ---
Author Organization [facility] Address [address] [place] [address] Care Team Providers Care Director Consumer Name Role Phone Elsewhere, Pcp Primary Care Provider Unavailabl e Encounter Details Date Type Department Care Team (Latest Contact Info) Description 04/14/2024 2:10 PM CDT Ancillary Procedure Department of Ophthalmology in [place], [place] [address] [place] [address] Prakash Graham M.D. [address] [place] [address] Panuveitis Right; Necrosis Retinal Acute Right Social History Tobacco Use Types Packs/Day Years Used Date Smoking Tobacco: Former Cigarettes 0.7 70.4 0 03/28/1975 - 01/09/2022 Smokeless Tobacco: Never Comments:On again off again Alcohol Use Standard Drinks/Week Comments Yes 5 (1 standard drink = 0.6 oz pur e alcohol) occasional [facility] Utilities Answer Date Recorded In the past 12 months has [employer], gas, oil, or water [employer] threatened to shut off services in your home? No 11/05/2023 Social Connection and Isolation Panel [NHANES] A nswer Date Recorded In a typical week, how many times do you talk on the phone with family, friends, or neighbors? Once a week 06/27/2020 How often do you get together with friends or re latives? Never 06/27/2020 How often do you attend nondenominational or scientologist serv ices? Never 06/27/2020 Do you belong [...] care, and heating? Somewhat hard 06/27/2020 [facility] of Occupat ional [...] 04/27/2024 11:45 AM CDT Hospital Encounter [facility] [place] [address] [place] [phone] Prakash Graham M.D. [address] [place] [phone] 04/27/2024 11:45 AM CDT - 04/27/2024 2:42 PM CDT Surgery [facility] OR [address] [place] [phone] Prakash Graham M.D. [address] [place] [phone] VITRECTOMY - PARS PLANA 25 GAUGE / MEMBRANE PEEL / SILICONE OIL / SCLERAL BUCKLE AND ALL ASSOCIATED PROCEDURES RIGHT EYE 04/28/2024 8:00 AM CDT Office Visit Department of Ophthalmology in [place], [place] [address] [place] [phone] Prakash Graham M.D. [address] [place] [phone] 05/05/2024 1:15 PM CDT Ancillary Procedure Department of Ophthalmology in [place], [place] [address] [place] [phone] Prakash Graham M.D. [address] [place] [phone] 05/05/2024 1:45 PM CDT Office Visit Department of Ophthalmology in [place], [place] [address] [place] [phone] Prakash Graham M.D. [address] [place] [phone] 06/02/2024 8:15 AM CDT Ancillary Procedure Department of Ophthalmology in [place], [place] [address] [place] [phone] Prakash Graham M.D. [address] [place] [phone] 06/02/2024 8:45 AM CDT Ancillary Procedure Department of Ophthalmology in [place], [place] [address] [place] [phone] Prakash Graham M.D. [address] [place] [phone] 06/02/2024 9:00 AM CDT Office Visit Department of Ophthalmology in [place], [place] [address] [place] [phone] Prakash Graham M.D. [address] [place] [phone] Scheduled Procedures Name Priority Associated Diagnoses Date/Ti [...] Right documented in this encounter Care Teams Director Consumer Relationship Specialty Start Date End Date Elsewhere, Pcp PCP - General Internal Medicine 05/29/19 documented as of this encounter
--- OUTSIDE RECORDS SUMMARY | 2024-04-22 08:07 | XMS_ITS | Encounter Summary ---
Author Organization [facility] Address [address] [place] [address] Care Team Providers Care Hide Grader Name Role Phone Elsewhere, Pcp Primary Care Provider Unavailabl e Encounter Details Date Type Department Care Team (Latest Contact Info) Description 04/16/2024 1:00 PM CDT Ancillary Procedure Department of Ophthalmology in [place], [place] [address] [place] [address] Kenya Garza M.D. [address] [place] [address] Necrosis Retinal Acute Right Social History Tobacco Use Types Packs/Day Years Used Date Smoking Tobacco: Former Cigarettes 0.7 70.4 0 03/28/1975 - 01/09/2022 Smokeless Tobacco: Never Comments:On again off again Alcohol Use Standard Drinks/Week Comments Yes 5 (1 standard drink = 0.6 oz pur e alcohol) occasional [facility] Utilities Answer Date Recorded In the past 12 months has [employer], gas, oil, or water [employer] threatened to shut off services in your home? No 11/05/2023 Social Connection and Isolation Panel [NHANES] A nswer Date Recorded In a typical week, how many times do you talk on the phone with family, friends, or neighbors? Once a week 06/27/2020 How often do you get together with friends or re latives? Never 06/27/2020 How often do you attend advent or hoahaoism serv ices? Never 06/27/2020 Do [...] medical care, and heating? Somewhat hard 06/27/2020 [facility] of Occupat ional Health - Occupational [...] your living situation today? I have a [facility] place to live 11/05/2023 Education [...] 04/27/2024 11:45 AM CDT Hospital Encounter [facility] OR [address] [place] [phone] Prakash Graham M.D. [address] [place] [phone] 04/27/2024 11:45 AM CDT - 04/27/2024 2:42 PM CDT Surgery [facility] OR [address] [place] [phone] Prakash Graham M.D. [address] [place] [phone] VITRECTOMY - PARS PLANA 25 GAUGE / MEMBRANE PEEL / SILICONE OIL / SCLERAL BUCKLE AND ALL ASSOCIATED PROCEDURES RIGHT EYE 04/28/2024 8:00 AM CDT Office Visit Department of Ophthalmology in [place], [place] [address] [place] [phone] Prakash Graham M.D. [address] [place] [phone] 05/05/2024 1:15 PM CDT Ancillary Procedure Department of Ophthalmology in [place], [place] [address] [place] [phone] Prakash Graham M.D. [address] [place] [phone] 05/05/2024 1:45 PM CDT Office Visit Department of Ophthalmology in [place], [place] [address] [place] [phone] Prakash Graham M.D. [address] [place] [phone] 06/02/2024 8:15 AM CDT Ancillary Procedure Department of Ophthalmology in [place], [place] [address] [place] [phone] Prakash Graham M.D. [address] [place] [phone] 06/02/2024 8:45 AM CDT Ancillary Procedure Department of Ophthalmology in [place], [place] [address] [place] [phone] Prakash Graham M.D. [address] [place] [phone] 06/02/2024 9:00 AM CDT Office Visit Department of Ophthalmology in [place], [place] [address] [place] [phone] Prakash Graham M.D. [address] [place] [phone] Scheduled Procedures Name Priority Associated Diagnoses Date/Ti [...] ciliary body detachment noted, possible ciliochoroidal effusion. [facility] Kenya Garza M.D. OPHTH ULTRASOUND OPHTHALMOLGY NON-IMAGING ORDERS documented in this encounter Visit Diagnoses Diagnosis Panuveitis Right Necrosis Retinal Acute Right Chronic Obstructive Pulmonary Disease Without Exacerbation (HCC) Necrosis Retinal Acute Right Panuveitis Right Necrosis Retinal Acute Right documented in this encounter Care Teams Hide Grader Relationship Specialty Start Date End Date Elsewhere, Pcp PCP - General Internal Medicine 05/29/19 documented as of this encounter
--- OUTSIDE RECORDS SUMMARY | 2024-04-22 08:07 | XMS_ITS | Encounter Summary ---
Author Organization [facility] Address [address] [place] [address] Care Team Providers Care Fiberglass Autobody Repairer Name Role Phone Elsewhere, Pcp Primary Care Provider Unavailabl e Reason for Visit * Outpatient (Routine) - Closed Specialty Diagnoses / Procedures Referred By Contmuriel t Referred To Contact Ophthalmology Prakash Graham M.D. [address] [place] [address] [facility] Referral ID Status Reason Start Date Expiration Date Visits Re quested Visits Authorized [id number] Closed 03/16/2024 09/15/2025 1 1 Encounter Details Date Type Department Care Team (Latest Contact Info) Description 04/14/2024 2:30 PM CDT Office Visit Department of Ophthalmology in [place], [place] [address] [place] [phone] Prakash Graham M.D. [address] [place] [phone] Panuveitis Right (Primary Dx); Proliferative Vitreoretinopathy Right Social History Tobacco Use Types Packs/Day [...] How often do you attend confucianism or latter day serv ices? Never 06/27/2020 [...] heating? Somewhat hard 06/27/2020 [facility] [place] of Occupat ional Health - Occupational Stress [...] your living situation today? I have a [facility] place to live 11/05/2023 [...] Progress Notes * Prakash Graham M.D. - 04/14/2024 2:30 PM CDT # Panuveitis with acute retinal [...] daily in the right eye for now. Minimal improvement if any post cryo to the right eye. Discussed options, will plan on surgery to try and improve hypotony and anterior contraction. R/b/a/c to proliferative vitreoretinopathy repair with all associated procedures including vitrectomy, gas, possible silicone oil, possible scleral buckle discussed and patient consented. Patient understands risk of pain, bleeding, vision loss, infection, change in post-op refraction, and need for multiple surgeries Discussed need for post-op positioning and gas bubble restrictions (no altitude/airplanes/sleeping on back) and activity restrictions. Plan on 23g PPV/SB/MP/SO/cyclopexy OD 04/27/24 - ICG, kenalog, 10-prolene documented in this encounter Plan of Treatment Upcoming Encounters Date Type Department Care Team (Latest Contact Info) Description 04/27/2024 11:45 AM CDT [facility] [place] [phone] Prakash Graham M.D. [address] [place] [phone] 04/27/2024 11:45 AM CDT - 04/27/2024 2:42 PM CDT Surgery [facility] OR [address] [place] [phone] Prakash Graham M.D. [address] [place] [phone] VITRECTOMY - PARS PLANA 25 GAUGE / MEMBRANE PEEL / SILICONE OIL / SCLERAL BUCKLE AND ALL ASSOCIATED PROCEDURES RIGHT EYE 04/28/2024 8:00 AM CDT Office Visit Department of Ophthalmology in [place], [place] [address] [place] [phone] Prakash Graham M.D. [address] [place] [phone] 05/05/2024 1:15 PM CDT Ancillary Procedure Department of Ophthalmology in [place], [place] [address] [place] [phone] Prakash Graham M.D. [address] [place] [phone] 05/05/2024 1:45 PM CDT Office Visit Department of Ophthalmology in [place], [place] [address] [place] [phone] Prakash Graham M.D. [address] [place] [phone] 06/02/2024 8:15 AM CDT Ancillary Procedure Department of Ophthalmology in [place], [place] [address] [place] [phone] Prakash Graham M.D. [address] [place] [phone] 06/02/2024 8:45 AM CDT Ancillary Procedure Department of Ophthalmology in [place], [place] [address] [place] [phone] Prakash Graham M.D. [address] [place] [phone] 06/02/2024 9:00 AM CDT Office Visit Department of Ophthalmology in [place], [place] [address] [place] [phone] Prakash Graham M.D. [address] [place] [phone] Scheduled Procedures Name Priority Associated Diagnoses Date/Ti ok VITRECTOMY - PARS PLANA 25 GAUGE Panuveitis Right Necrosis Retinal Acute Right 04/27/2024 11:45 AM CDT SCLERAL BUCKLING Panuveitis Right Necrosis Retinal Acute Right 04/27/2024 11:45 AM CDT documented as of this encounter Visit Diagnoses Diagnosis Panuveitis Right Necrosis Retinal Acute Right Chronic Obstructive Pulmonary Disease Without Exacerbation (HCC) Panuveitis Right- Primary Proliferative Vitreoretinopathy Right Panuveitis Right Necrosis Retinal Acute Right documented in this encounter Care Teams Fiberglass Autobody Repairer Relationship Specialty Start Date End Date Elsewhere, Pcp PCP - General Internal Medicine 05/29/19 documented as of this encounter
--- OUTSIDE RECORDS SUMMARY | 2024-04-22 08:08 | XMS_ITS | Encounter Summary ---
Author Organization [facility] Address [address] [place] [address] Care Team Providers Care Dental Secretary Name Role Phone Elsewhere, Pcp Primary Care Provider Unavailabl e Reason for Visit * Outpatient (Routine) - Closed Specialty Diagnoses / Procedures Referred By Contmuriel t Referred To Contact Neurology Piter Baez M.D. [address] [place] [address] [facility] Referral ID Status Reason Start Date Expiration Date Visits Re quested Visits Authorized [id number] Closed 02/20/2024 08/21/2025 1 1 Encounter Details Date Type Department Care Team (Latest Contact Info) Description 02/25/2024 4:30 PM CDT Telemedicine Department of Neurology in [place], [place] [address] [place] [phone] Piter Baez M.D. [address] [place] [address] Posterior Reversible Encephalopathy Syndrome (Primary Dx) Social History Tobacco Use Types Packs/Day Years Used Date Smoking Tobacco: Light Smoker Cigarettes 0.5 44.2 Started: 02/26/1980 Smokeless Tobacco: Never Comments:On again off again Alcohol Use Standard Drinks/Week Comments Yes 0 (1 standard drink = 0.6 oz pur e alcohol) [facility] Utilities Answer Date Recorded In [...] How often do you attend sikh or cheondoism serv ices? Never 06/27/2020 Do [...] medical care, and heating? Somewhat hard 06/27/2020 [facility] of Occupat ional Health - Occupational Stress [...] your living situation today? I have a [facility] place to live 11/05/2023 Education Answer [...] audio/video technology by Piter Baez M.D. in [employer] to the patient at home. RESULTS REVIEW [...] 11:45 AM CDT Hospital Encounter [facility] OR [facility] [place] [phone] Prakash Graham M.D. [address] [place] [phone] 04/27/2024 11:45 AM CDT - 04/27/2024 2:42 PM CDT [facility] [address] [place] [phone] Prakash Graham M.D. [address] [place] [phone] VITRECTOMY - PARS PLANA 25 GAUGE / MEMBRANE PEEL / SILICONE OIL / SCLERAL BUCKLE AND ALL ASSOCIATED PROCEDURES RIGHT EYE 04/28/2024 8:00 AM CDT Office Visit Department of Ophthalmology in [place], [place] [address] [place] [phone] Prakash Graham M.D. [address] [place] [phone] 05/05/2024 1:15 PM CDT Ancillary Procedure Department of Ophthalmology in [place], [place] [address] [place] [phone] Prakash Graham M.D. [address] [place] [phone] 05/05/2024 1:45 PM CDT Office Visit Department of Ophthalmology in [place], [place] [address] [place] [phone] Prakash Graham M.D. [address] [place] [phone] 06/02/2024 8:15 AM CDT Ancillary Procedure Department of Ophthalmology in [place], [place] [address] [place] [phone] Prakash Graham M.D. [address] [place] [phone] 06/02/2024 8:45 AM CDT Ancillary Procedure Department of Ophthalmology in [place], [place] [address] [place] [phone] Prakash Graham M.D. [address] [place] [phone] 06/02/2024 9:00 AM CDT Office Visit Department of Ophthalmology in [place], [place] [address] [place] [phone] Prakash Graham M.D. [address] [place] [phone] Scheduled Procedures Name Priority Associated Diagnoses Date/Ti me VITRECTOMY - PARS PLANA 25 GAUGE Panuveitis Right Necrosis Retinal Acute Right 04/27/2024 11:45 AM CDT [employer] Panuveitis Right Necrosis Retinal Acute Right 04/27/2024 11:45 AM CDT documented as of this encounter Visit Diagnoses Diagnosis Posterior Reversible Encephalopathy Syndrome- Primary Panuveitis Right Necrosis Retinal Acute Right documented in this encounter Care Teams Dental Secretary Relationship Specialty Start Date End Date Elsewhere, Pcp PCP - General Internal Medicine 05/29/19 documented as of this encounter
--- OUTSIDE RECORDS SUMMARY | 2024-04-22 08:08 | XMS_ITS | Encounter Summary ---
Author Organization [facility] Address [address] [place] [address] Care Team Providers Care Precision Lens Grinder Apprentice Name Role Phone Elsewhere, Pcp Primary Care [...] drink = 0.6 oz pur e alcohol) [facility] Utilities Answer Date Recorded In the past 12 months has [employer], gas, oil, or water company threatened [...] How often do you attend adventism or jehovah's witness serv ices? Never 06/27/2020 [...] medical care, and heating? Somewhat hard 06/27/2020 [facility] - Occupational Stress Questionnaire Answer Date Recorded [...] 04/27/2024 11:45 AM CDT Hospital Encounter [facility] OR [facility] [place] [phone] Prakash Graham M.D. [address] [place] [phone] 04/27/2024 11:45 AM CDT - 04/27/2024 2:42 PM CDT Surgery [facility] OR [facility] [address] [place] [phone] Prakash Graham M.D. [address] [place] [phone] VITRECTOMY - PARS PLANA 25 GAUGE / MEMBRANE PEEL / SILICONE OIL / SCLERAL BUCKLE AND ALL ASSOCIATED PROCEDURES RIGHT EYE 04/28/2024 8:00 AM CDT Office Visit Department of Ophthalmology in [place], [place] [address] [place] [phone] Prakash Graham M.D. [address] [place] [phone] 05/05/2024 1:15 PM CDT Ancillary Procedure Department of Ophthalmology in [place], [place] [address] [place] [phone] Prakash Graham M.D. [address] [place] [phone] 05/05/2024 1:45 PM CDT Office Visit Department of Ophthalmology in [place], [place] [address] [place] [phone] Prakash Graham M.D. [address] [place] [phone] 06/02/2024 8:15 AM CDT Ancillary Procedure Department of Ophthalmology in [place], [place] [address] [place] [phone] Prakash Graham M.D. [address] [place] [phone] 06/02/2024 8:45 AM CDT Ancillary Procedure Department of Ophthalmology in [place], [place] [address] [place] [phone] Prakash Graham M.D. [address] [place] [phone] 06/02/2024 9:00 AM CDT Office Visit Department of Ophthalmology in [place], [place] [address] [place] [phone] Prakash Graham M.D. [address] [place] [phone] Scheduled Procedures Name Priority Associated Diagnoses Date/Ti ga VITRECTOMY - PARS PLANA 25 GAUGE Panuveitis [...] on filedocumented in this encounter Care Teams Precision Lens Grinder Apprentice Relationship Specialty Start Date End Date Elsewhere, Pcp PCP - General Internal Medicine 05/29/19 documented as of this encounter
--- OUTSIDE RECORDS SUMMARY | 2024-04-22 08:08 | XMS_ITS | Encounter Summary ---
Author Organization [facility] Address [address] [place] [address] Care Team Providers Care Seat Cover Cutter Name Role Phone Elsewhere, Pcp Primary Care Provider Unavailabl e Encounter Details Date Type Department Care Team (Latest Contact Info) Description 03/13/2024 12:00 PM CDT Ancillary Procedure Department of Ophthalmology in [place], [place] [address] [place] [address] Kenya Garza M.D. [address] [place] [address] Panuveitis Right; Necrosis Retinal Acute Right Social History Tobacco Use Types Packs/Day Years Used Date Smoking Tobacco: Light Smoker Cigarettes 0.5 44.2 Started: 02/26/1980 Smokeless Tobacco: Never Comments:On again off again Alcohol Use Standard Drinks/Week Comments Yes 0 (1 standard drink = 0.6 oz pur e alcohol) [facility] Utilities Answer Date Recorded In the past 12 months has [employer], gas, oil, or water [employer] threatened to shut off services in your home? No 11/05/2023 Social Connection and Isolation Panel [NHANES] A nswer Date Recorded In a typical week, how many times do you talk on the phone with family, friends, or neighbors? Once a week 06/27/2020 How often do you get together with friends or re latives? Never 06/27/2020 How often do you attend worship or druze serv ices? Never 06/27/2020 Do you belong to any clubs o r organizations such as worship groups, unions, fraternal or athletic groups, or [...] care, and heating? Somewhat hard 06/27/2020 [facility] of Occupat ional Health - Occupational Stress [...] your living situation today? I have a [facility] place to live 11/05/2023 Education [...] 04/27/2024 11:45 AM CDT Hospital [facility] OR [address] [place] [phone] Prakash Graham M.D. [address] [place] [phone] 04/27/2024 11:45 AM CDT - 04/27/2024 2:42 PM CDT Surgery [facility] [address] [place] [phone] Prakash Graham M.D. [address] [place] [phone] VITRECTOMY - PARS PLANA 25 GAUGE / MEMBRANE PEEL / SILICONE OIL / SCLERAL BUCKLE AND ALL ASSOCIATED PROCEDURES RIGHT EYE 04/28/2024 8:00 AM CDT Office Visit Department of Ophthalmology in [place], [place] [address] [place] [phone] Prakash Graham M.D. [address] [place] [phone] 05/05/2024 1:15 PM CDT Ancillary Procedure Department of Ophthalmology in [place], [place] [address] [place] [phone] Prakash Graham M.D. [address] [place] [phone] 05/05/2024 1:45 PM CDT Office Visit Department of Ophthalmology in [place], [place] [address] [place] [phone] Prakash Graham M.D. [address] [place] [phone] 06/02/2024 8:15 AM CDT Ancillary Procedure Department of Ophthalmology in [place], [place] [address] [place] [phone] Prakash Graham M.D. [address] [place] [phone] 06/02/2024 8:45 AM CDT Ancillary Procedure Department of Ophthalmology in [place], [place] [address] [place] [phone] Prakash Graham M.D. [address] [place] [phone] 06/02/2024 9:00 AM CDT Office Visit Department of Ophthalmology in [place], [place] [address] [place] [phone] Prakash Graham M.D. [address] [place] [phone] Scheduled Procedures Name Priority Associated Diagnoses Date/Ti [...] Right documented in this encounter Care Teams Seat Cover Cutter Relationship Specialty Start Date End Date Elsewhere, Pcp PCP - General Internal Medicine 05/29/19 documented as of this encounter
--- OUTSIDE RECORDS SUMMARY | 2024-04-22 08:08 | XMS_ITS | Encounter Summary ---
Author Organization [facility] Address [address] [place] [address] Care Team Providers Care Turntable Operator Name Role Phone Elsewhere, Pcp Primary Care Provider Unavailabl e Encounter Details Date Type Department Care Team (Latest Contact Info) Description 03/10/2024 Clinical Communication Department of Ophthalmology in [place], [place] [address] [place] [address] Kenya Garza M.D. [address] [place] [address] Social History Tobacco Use Types Packs/Day Years Used Date Smoking Tobacco: Light Smoker Cigarettes 0.5 44.2 Started: 02/26/1980 Smokeless Tobacco: Never Comments:On again off again Alcohol Use Standard Drinks/Week Comments Yes 0 (1 standard drink = 0.6 oz pur e alcohol) [facility] Utilities Answer Date Recorded In the past 12 months has [employer], gas, oil, or water company threatened to [...] care, and heating? Somewhat hard 06/27/2020 [facility] of Occupat ional Health - Occupational Stress [...] 04/27/2024 11:45 AM CDT Hospital Encounter [facility] OR [facility] [place] [phone] Prakash Graham M.D. [address] [place] [phone] 04/27/2024 11:45 AM CDT - 04/27/2024 2:42 PM CDT Surgery RST [facility] OR [facility] [address] [place] [phone] Prakash Graham M.D. [address] [place] [phone] VITRECTOMY - PARS PLANA 25 GAUGE / MEMBRANE PEEL / SILICONE OIL / SCLERAL BUCKLE AND ALL ASSOCIATED PROCEDURES RIGHT EYE 04/28/2024 8:00 AM CDT Office Visit Department of Ophthalmology in [place], [place] [address] [place] [phone] Prakash Graham M.D. [address] [place] [phone] 05/05/2024 1:15 PM CDT Ancillary Procedure Department of Ophthalmology in [place], [place] [address] [place] [phone] Prakash Graham M.D. [address] [place] [phone] 05/05/2024 1:45 PM CDT Office Visit Department of Ophthalmology in [place], [place] [address] [place] [phone] Prakash Graham M.D. [address] [place] [phone] 06/02/2024 8:15 AM CDT Ancillary Procedure Department of Ophthalmology in [place], [place] [address] [place] [phone] Prakash Graham M.D. [address] [place] [phone] 06/02/2024 8:45 AM CDT Ancillary Procedure Department of Ophthalmology in [place], [place] [address] [place] [phone] Prakash Graham M.D. [address] [place] [phone] 06/02/2024 9:00 AM CDT Office Visit Department of Ophthalmology in [place], [place] [address] [place] [phone] Prakash Graham M.D. [address] [place] [phone] Scheduled Procedures Name Priority Associated Diagnoses Date/Ti me VITRECTOMY - PARS PLANA 25 GAUGE Panuveitis Right Necrosis Retinal Acute Right 04/27/2024 11:45 AM CDT SCLERAL BUCKLING Panuveitis Right Necrosis Retinal Acute Right 04/27/2024 11:45 AM CDT documented as of this encounter Visit Diagnoses Not on filedocumented in this encounter Care Teams Turntable Operator Relationship Specialty Start Date End Date Elsewhere, Pcp PCP - General Internal Medicine 05/29/19 documented as of this encounter
--- OUTSIDE RECORDS SUMMARY | 2024-04-22 08:08 | XMS_ITS | Encounter Summary ---
Author Organization [facility] Address [address] [place] [address] Care Team Providers Care Endoscopy Support Specialist Name Role Phone Elsewhere, Pcp Primary [...] drink = 0.6 oz pur e alcohol) [facility] Utilities Answer Date Recorded In the past 12 months has [employer], gas, oil, or water company threatened [...] How often do you attend quaker or roman catholic serv ices? Never 06/27/2020 [...] medical care, and heating? Somewhat hard 06/27/[address] [facility] - Occupational Stress Questionnaire Answer [...] Encounter RST [facility] OR [facility] [place] [phone] Prakash Graham M.D. [address] [place] [phone] 04/27/2024 11:45 AM CDT - 04/27/2024 2:42 PM CDT Surgery RST [facility] OR [facility] [place] [phone] Prakash Graham M.D. [address] [place] [phone] VITRECTOMY - PARS PLANA 25 GAUGE / MEMBRANE PEEL / SILICONE OIL / SCLERAL BUCKLE AND ALL ASSOCIATED PROCEDURES RIGHT EYE 04/28/2024 8:00 AM CDT Office Visit Department of Ophthalmology in [place], [place] [address] [place] [phone] Prakash Graham M.D. [address] [place] [phone] 05/05/2024 1:15 PM CDT Ancillary Procedure Department of Ophthalmology in [place], [place] [address] [place] [phone] Prakash Graham M.D. [address] [place] [phone] 05/05/2024 1:45 PM CDT Office Visit Department of Ophthalmology in [place], [place] [address] [place] [phone] Prakash Graham M.D. [address] [place] [phone] 06/02/2024 8:15 AM CDT Ancillary Procedure Department of Ophthalmology in [place], [place] [address] [place] [phone] Prakash Graham M.D. [address] [place] [phone] 06/02/2024 8:45 AM CDT Ancillary Procedure Department of Ophthalmology in [place], [place] [address] [place] [phone] Prakash Graham M.D. [address] [place] [phone] 06/02/2024 9:00 AM CDT Office Visit Department of Ophthalmology in [place], [place] [address] [place] [phone] Prakash Graham M.D. [address] [place] [phone] Scheduled Procedures Name Priority Associated Diagnoses Date/Ti nj VITRECTOMY - PARS PLANA 25 GAUGE Panuveitis [...] on filedocumented in this encounter Care Teams Endoscopy Support Specialist Relationship Specialty Start Date End Date Elsewhere, Pcp PCP - General Internal Medicine 05/29/19 documented as of this encounter
--- OUTSIDE RECORDS SUMMARY | 2024-04-22 08:08 | XMS_ITS | Encounter Summary ---
Author Organization [facility] Address [address] [place] [address] Care Team Providers Care Polisher Balance Screwhead Name Role Phone Elsewhere, Pcp Primary Care Provider Unavailabl e Encounter Details Date Type Department Care Team (Latest Contact Info) Description 03/13/2024 8:00 AM CDT Ancillary Procedure Department of Ophthalmology in [place], [place] [address] [place] [address] Kenya Garza M.D. [address] [place] [phone] Panuveitis Right; Necrosis Retinal Acute Right Social History Tobacco Use Types Packs/Day Years Used Date Smoking Tobacco: Light Smoker Cigarettes 0.5 44.2 Started: 02/26/1980 Smokeless Tobacco: Never Comments:On again off again Alcohol Use Standard Drinks/Week Comments Yes 0 (1 standard drink = 0.6 oz pur e alcohol) [facility] Utilities Answer Date Recorded In the past 12 months has [employer], gas, oil, or water [employer] threatened to shut off services in your home? No 11/05/2023 Social Connection and Isolation Panel [NHANES] A nswer Date Recorded In a typical week, how many times do you talk on the phone with family, friends, or neighbors? Once a week 06/27/2020 How often do you get together with friends or re latives? Never 06/27/2020 How often do you attend confucianism or hinduism serv ices? Never 06/27/2020 Do [...] Somewhat hard 06/27/2020 [facility] of Occupat ional Health - Occupational [...] 11:45 AM CDT Hospital Encounter [facility]ST [facility] OR [address] [place] [phone] Prakash Graham M.D. [address] [place] [phone] 04/27/2024 11:45 AM CDT - 04/27/2024 2:42 PM CD[address] Surgery [facility] OR [address] [place] [phone] Prakash Graham M.D. [address] [place] [phone] VITRECTOMY - PARS PLANA 25 GAUGE / MEMBRANE PEEL / SILICONE OIL / SCLERAL BUCKLE AND ALL ASSOCIATED PROCEDURES RIGHT EYE 04/28/2024 8:00 AM CDT Office Visit Department of Ophthalmology in [place], [place] [address] [place] [phone] Prakash Graham M.D. [address] [place] [phone] 05/05/2024 1:15 PM CDT Ancillary Procedure Department of Ophthalmology in [place], [place] [address] [place] [phone] Prakash Graham M.D. [address] [place] [phone] 05/05/2024 1:45 PM CDT Office Visit Department of Ophthalmology in [place], [place] [address] [place] [phone] Prakash Graham M.D. [address] [place] [phone] 06/02/2024 8:15 AM CDT Ancillary Procedure Department of Ophthalmology in [place], [place] [address] [place] [phone] Prakash Graham M.D. [address] [place] [phone] 06/02/2024 8:45 AM CDT Ancillary Procedure Department of Ophthalmology in [place], [place] [address] [place] [phone] Prakash Graham M.D. [address] [place] [phone] 06/02/2024 9:00 AM CDT Office Visit Department of Ophthalmology in [place], [place] [address] [place] [phone] Prakash Graham M.D. [address] [place] [phone] Scheduled Procedures Name Priority Associated Diagnoses Date/Ti [...] Right documented in this encounter Care Teams Polisher Balance Screwhead Relationship Specialty Start Date End Date Elsewhere, Pcp PCP - General Internal Medicine 05/29/19 documented as of this encounter
--- OUTSIDE RECORDS SUMMARY | 2024-04-22 08:08 | XMS_ITS | Encounter Summary ---
Author Organization [facility] Address [address] [place] [address] Care Team Providers Care Peer Health Promoter Name Role Phone Elsewhere, Pcp Primary Care [...] In the past 12 months has th [employer], gas, oil, or water company threatened [...] How often do you attend scientology or moravian serv ices? Never 06/27/2020 Do you belong [...] 06/27/2020 [facility] of Occupat ional [facility] - Occupational Stress Questionnaire Answer [...] 04/27/2024 11:45 AM CDT Hospital Encounter [facility]ST [facility] OR [address] [place] [phone] Prakash Graham M.D. [address] [place] [phone] 04/27/2024 11:45 AM CDT - 04/27/2024 2:42 PM CDT Surgery [facility] OR [facility] [place] [phone] Prakash Graham M.D. [address] [place] [phone] VITRECTOMY - PARS PLANA 25 GAUGE / MEMBRANE PEEL / SILICONE OIL / SCLERAL BUCKLE AND ALL ASSOCIATED PROCEDURES RIGHT EYE 04/28/2024 8:00 AM CDT Office Visit Department of Ophthalmology in [place], [place] [address] [place] [phone] Prakash Graham M.D. [address] [place] [phone] 05/05/2024 1:15 PM CDT Ancillary Procedure Department of Ophthalmology in [place], [place] [address] [place] [phone] Prakash Graham M.D. [address] [place] [phone] 05/05/2024 1:45 PM CDT Office Visit Department of Ophthalmology in [place], [place] [address] [place] [phone] Prakash Graham M.D. [address] [place] [phone] 06/02/2024 8:15 AM CDT Ancillary Procedure Department of Ophthalmology in [place], [place] [address] [place] [phone] Prakash Graham M.D. [address] [place] [phone] 06/02/2024 8:45 AM CDT Ancillary Procedure Department of Ophthalmology in [place], [place] [address] [place] [phone] Prakash Graham M.D. [address] [place] [phone] 06/02/2024 9:00 AM CDT Office Visit Department of Ophthalmology in [place], [place] [address] [place] [phone] Prakash Graham M.D. [address] [place] [phone] Scheduled Procedures Name Priority Associated Diagnoses Date/Ti me VITRECTOMY - PARS PLANA 25 GAUGE Panuveitis Right Necrosis Retinal Acute Right 04/27/2024 11:45 AM CDT SCLERAL BUCKLING Panuveitis Right Necrosis Retinal Acute Right 04/27/2024 11:45 AM CDT documented as of this encounter Visit Diagnoses Not on filedocumented in this encounter Care Teams Peer Health Promoter Relationship Specialty Start Date End Date Elsewhere, Pcp PCP - General Internal Medicine 05/29/19 documented as of this encounter
--- OUTSIDE RECORDS SUMMARY | 2024-04-22 08:08 | XMS_ITS | Encounter Summary ---
Author Organization [facility] Address [address] [place] [address] Care Team Providers Care Practical Nursing Instructor Name Role Phone Elsewhere, Pcp Primary Care Provider Unavailabl e Reason for Referral * MRI/CAT/PET Scan (Routine) - Closed Specialty Diagnoses / Procedures Referred By Contac t Referred To Contact Radiology Diagnoses Posterior Reversible Encephalopathy Syndrome Procedures MR Brain without and with IV Contrast Piter Baez M.D. [address] [place] [phone] [facility] Referral ID Status Reason Start Date Expiration Date Visits Re quested Visits Authorized [id number] Closed 02/03/2024 10/27/2024 1 1 Reason for Visit * MRI/CAT/PET Scan (Routine) - Closed Specialty Diagnoses / Procedures Referred By Contac t Referred To Contact Radiology Diagnoses Posterior Reversible Encephalopathy Syndrome Procedures MR Brain without and with IV Contrast Piter Baez M.D. [address] [place] [phone] [facility] Referral ID Status Reason Start Date Expiration Date Visits Re quested Visits Authorized [id number] Closed 02/03/2024 10/27/2024 1 1 Encounter Details Date Type Department Care Team (Latest Contact Info) Description 02/20/2024 3:05 PM CDT - 02/20/2024 11:59 PM CDT Hospital Encounter Department of Radiology, [facility] in [place], [place] [address] [place] [address] Piter Baez M.D. [address] [place] [phone] Posterior Reversible Encephalopathy Syndrome Discharge Disposition: Home or Self Care Social History Tobacco Use Types Packs/Day Years Used Date Smoking Tobacco: Light Smoker Cigarettes 0.5 44.2 Started: 02/26/1980 Smokeless Tobacco: Never Comments:On again off again Alcohol Use Standard Drinks/Week Comments Yes 0 (1 standard drink = 0.6 oz pur e alcohol) [facility] Utilities Answer Date Recorded In the past [...] How often do you attend mosque or yarsani serv ices? Never 06/27/2020 Do [...] medical care, and heating? Somewhat hard 06/27/2020 [facility] [place] of Occupat ional Health - Occupational Stress [...] Take 40 mg by mouth daily. 09/26/2016 ipratropium-albutero L (DUONEB) 0.5-2.5 mg/3 mL nebulizer solution INHALE ONE VIAL VIA NEBULIZER EVERY 4 HOURS FOR 3 DAYS AND THEN CAN DECREASE TO NEEDED. 06/09/2020 lisinopriL (PRINIVIL,ZESTRIL) 20 mg tablet Take 20 mg by mouth daily. 01/23/2024 metFORMIN (GLUCOPHAGE) 1,000 mg tablet Take 1,000 mg by mouth daily. 01/23/2024 predniSONE (DELTASONE) 5 mg tablet Take 2 [...] times a day. 270 tablet 1 01/23/2024 difluprednate (DUREZOL) 0.05 % ophthalmic emulsion Administer 1 drop into the right eye 4 (four) times a day. Stop prednisolone when you start difluprednate 5 mL 3 11/11/2023 04/16/2024 lisinopril (PRINIVIL,ZESTRIL) 40 mg tablet Take 20 mg by mouth daily. 09/29/2017 04/14/2024 prednisoLONE acetate (PRED FORTE) 1 % ophthalmic suspension Administer 1 drop into the right eye every hour while awake. 11/04/2023 03/10/2024 documented as of this encounter Plan of Treatment Upcoming Encounters Date Type Department Care Team (Latest Contact Info) Description 04/27/2024 11:45 AM CDT Hospital Encounter [facility] [address] [place] [phone] Prakash Graham M.D. [address] [place] [phone] 04/27/2024 11:45 AM CDT - 04/27/2024 2:42 PM CDT Surgery [facility] [address] [place] [phone] Prakash Graham M.D. [address] [place] [phone] VITRECTOMY - PARS PLANA 25 GAUGE / MEMBRANE PEEL / SILICONE OIL / SCLERAL BUCKLE AND ALL ASSOCIATED PROCEDURES RIGHT EYE 04/28/2024 8:00 AM CDT Office Visit Department of Ophthalmology in [place], [place] [address] [place] [phone] Prakash Graham M.D. [address] [place] [phone] 05/05/2024 1:15 PM CDT Ancillary Procedure Department of Ophthalmology in [place], [place] [address] [place] [phone] Prakash Graham M.D. [address] [place] [phone] 05/05/2024 1:45 PM CDT Office Visit Department of Ophthalmology in [address] [phone] Prakash Graham M.D. [address] [place] [phone] 06/02/2024 8:15 AM CDT Ancillary Procedure Department of Ophthalmology in [address] [phone] Prakash Graham M.D. [address] [place] [phone] 06/02/2024 8:45 AM CDT Ancillary Procedure Department of Ophthalmology in [address] [phone] Prakash Graham M.D. [address] [place] [phone] 06/02/2024 9:00 AM CDT Office Visit Department of Ophthalmology in [place], [place] [address] [place] [address] Prakash Graham M.D. [address] [place] [address] Scheduled Procedures Name Priority Associated Diagnoses Date/Ti [...] mL documented in this encounter Care Teams Practical Nursing Instructor Relationship Specialty Start Date End Date Elsewhere, Pcp PCP - General Internal Medicine 05/29/19 documented as of this encounter
--- OUTSIDE RECORDS SUMMARY | 2024-04-22 08:08 | XMS_ITS | Encounter Summary ---
Author Organization [facility] Address [address] [place] [address] Care Team Providers Care Manager Apple Name Role Phone Elsewhere, Pcp Primary Care Provider Unavailabl e Encounter Details Date Type Department Care Team (Latest Contact Info) Description 03/11/2024 Clinical Communication Department of Ophthalmology in [place], [place] [address] [place] [address] Kenya Garza M.D. [address] [place] [address] Social History Tobacco Use Types Packs/Day Years Used Date Smoking Tobacco: Light Smoker Cigarettes 0.5 44.2 Started: 02/26/1980 Smokeless Tobacco: Never Comments:On again off again Alcohol Use Standard Drinks/Week Comments Yes 0 (1 standard drink = 0.6 oz pur e alcohol) [facility] Utilities Answer Date Recorded In the past 12 months has [employer], gas, oil, or water company threatened to [...] How often do you attend adventism or episcopalian serv ices? Never 06/27/2020 Do you belong [...] care, and heating? Somewhat hard 06/27/2020 [facility] [place] of Occupat ional Health - Occupational Stress [...] your living situation today? I have a [facility] place to live 11/05/2023 Education Answer Date [...] 04/27/2024 11:45 AM CDT [facility] [place] [phone] Prakash Graham M.D. [address] [place] [phone] 04/27/2024 11:45 AM CDT - 04/27/2024 2:42 PM CDT Surgery [facility] OR [facility] [place] [phone] Prakash Graham M.D. [address] [place] [phone] VITRECTOMY - PARS PLANA 25 GAUGE / MEMBRANE PEEL / SILICONE OIL / SCLERAL BUCKLE AND ALL ASSOCIATED PROCEDURES RIGHT EYE 04/28/2024 8:00 AM CDT Office Visit Department of Ophthalmology in [place], [place] [address] [place] [phone] Prakash Graham M.D. [address] [place] [phone] 05/05/2024 1:15 PM CDT Ancillary Procedure Department of Ophthalmology in [place], [place] [address] [place] [phone] Prakash Graham M.D. [address] [place] [phone] 05/05/2024 1:45 PM CDT Office Visit Department of Ophthalmology in [place], [place] [address] [place] [phone] Prakash Graham M.D. [address] [place] [phone] 06/02/2024 8:15 AM CDT Ancillary Procedure Department of Ophthalmology in [place], [place] [address] [place] [phone] Prakash Graham M.D. [address] [place] [phone] 06/02/2024 8:45 AM CDT Ancillary Procedure Department of Ophthalmology in [place], [place] [address] [place] [phone] Prakash Graham M.D. [address] [place] [phone] 06/02/2024 9:00 AM CDT Office Visit Department of Ophthalmology in [place], [place] [address] [place] [phone] Prakash Graham M.D. [address] [place] [phone] Scheduled Procedures Name Priority Associated Diagnoses Date/Ti me VITRECTOMY - PARS PLANA 25 GAUGE Panuveitis Right Necrosis Retinal Acute Right 04/27/2024 11:45 AM CDT SCLERAL BUCKLING Panuveitis Right Necrosis Retinal Acute Right 04/27/2024 11:45 AM CDT documented as of this encounter Visit Diagnoses Not on filedocumented in this encounter Care Teams Manager Apple Relationship Specialty Start Date End Date Elsewhere, Pcp PCP - General Internal Medicine 05/29/19 documented as of this encounter
--- OUTSIDE RECORDS SUMMARY | 2024-04-22 08:08 | XMS_ITS | Encounter Summary ---
Author Organization [facility] Address [address] [place] [address] Care Team Providers Care Pro Shop Attendant Name Role Phone Elsewhere, Pcp Primary Care Provider Unavailabl e Reason for Referral * Outpatient (Routine) - Closed Specialty Diagnoses / Procedures Referred By Apoilnar lopez Referred To Contact Ophthalmology Diagnoses Necrosis Retinal Acute Right Kenya Garza M.D. [address] [place] [phone] [facility] Referral ID Status Reason Start Date Expiration Date Visits Re quested Visits Authorized [id number] Closed 03/13/2024 09/12/2025 1 1 Reason for Visit * Outpatient (Routine) - Closed Specialty Diagnoses / Procedures Referred By Apolinar lopez Referred To Contact Ophthalmology Diagnoses Panuveitis Right Necrosis Retinal Acute Right Kenya Garza M.D. [address] [place] [phone] [facility] Referral ID Status Reason Start Date Expiration Date Visits Re quested Visits Authorized [id number] Closed 02/20/2024 08/21/2025 1 1 Encounter Details Date Type Department Care Team (Latest Contact Info) Description 03/13/2024 11:30 AM CDT Office Visit Department of Ophthalmology in [place], [place] [address] [place] [phone] Kenya Garza M.D. [address] [place] [phone] Necrosis Retinal Acute Right (Primary Dx); Panuveitis Right Social History Tobacco Use Types Packs/Day Years Used Date Smoking Tobacco: Light Smoker Cigarettes 0.5 44.2 Started: 02/26/1980 Smokeless Tobacco: Never Comments:On again off again Alcohol Use Standard Drinks/Week Comments Yes 0 (1 standard drink = 0.6 oz pur e alcohol) [facility] Utilities Answer Date Recorded In the past [...] How often do you attend latter-day or restorationism serv ices? Never 06/27/2020 Do [...] medical care, and heating? Somewhat hard 06/27/2020 [facility] [place] of Occupat ional Health - Occupational Stress [...] living situation today? I have a [facility] place to live 11/05/2023 [...] with tobramycin drops without improvement. She saw quality improvement consultant Dr. Daisy Ivy on 10/23/23. 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 In August 2023, she was sent from an infusion center to [place] emergency department where shewas found to have oxygen saturations of 78%. CT imaging showed worsening bilateral ground glass opacities. A CT scan was negative for pulmonary embolism. She was transferred to [facility] for additional pulmonology care. On [...] three times in the past three months: [place] (09/02/23 for hypercalcemiaand acute kidney injury - had CT chest/abdomen/pelvis to assess for malignancy), [place] in [facility] again. Each time she saw her [...] plans to monitor. (Her oncologist is at [facility].) MEDICATIONS Prednisolone every hour [...] sign noted. [facility] Macula OCT of the right eye shows [...] T sign. 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 [facility] PLAN: It has been 21 days since [...] 04/27/2024 11:45 AM CDT Hospital Encounter [facility] [place] [phone] Prakash Graham M.D. [address] [place] [phone] 04/27/2024 11:45 AM CDT - 04/27/2024 2:42 PM CDT Surgery [facility] OR [address] [place] [phone] Prakash Graham M.D. [address] [place] [phone] VITRECTOMY - PARS PLANA 25 GAUGE / MEMBRANE PEEL / SILICONE OIL / SCLERAL BUCKLE AND ALL ASSOCIATED PROCEDURES RIGHT EYE 04/28/2024 8:00 AM CDT Office Visit Department of Ophthalmology in [place], [place] [address] [place] [phone] Prakash Graham M.D. [address] [place] [phone] 05/05/2024 1:15 PM CDT Ancillary Procedure Department of Ophthalmology in [place], [place] [address] [place] [phone] Prakash Graham M.D. [address] [place] [phone] 05/05/2024 1:45 PM CDT Office Visit Department of Ophthalmology in [place], [place] [address] [place] [phone] Prakash Graham M.D. [address] [place] [phone] 06/02/2024 8:15 AM CDT Ancillary Procedure Department of Ophthalmology in [place], [place] [address] [place] [phone] Prakash Graham M.D. [address] [place] [phone] 06/02/2024 8:45 AM CDT Ancillary Procedure Department of Ophthalmology in [place], [place] [address] [place] [phone] Prakash Graham M.D. [address] [place] [phone] 06/02/2024 9:00 AM CDT Office Visit Department of Ophthalmology in [place], [place] [address] [place] [phone] Prakash Graham M.D. [address] [place] [phone] Scheduled Procedures Name Priority Associated Diagnoses Date/Ti [...] Right documented in this encounter Care Teams Pro Shop Attendant Relationship Specialty Start Date End Date Elsewhere, Pcp PCP - General Internal Medicine 05/29/19 documented as of this encounter
--- OUTSIDE RECORDS SUMMARY | 2024-04-22 08:08 | XMS_ITS | Encounter Summary ---
Author Organization [facility] Address [address] [place] [address] Care Team Providers Care Human Resources Director Name Role Phone Elsewhere, Pcp Primary Care Provider Unavailabl e Reason for Referral * Outpatient (Routine) - Closed Specialty Diagnoses / Procedures Referred By Contac t Referred To Contact Neurology Piter Baez M.D. 200 [place] [phone] [facility] Referral ID Status Reason Start Date Expiration Date Visits Re quested Visits Authorized [id number] Closed 02/20/2024 08/21/2025 1 1 Reason for Visit * Outpatient (Routine) - Closed Specialty Diagnoses / Procedures Referred By Contac t Referred To Contact Neurology Diagnoses Posterior Reversible Encephalopathy Syndrome Katerine Bashir M.D. [address] [place] [phone] [facility] Referral ID Status Reason Start Date Expiration Date Visits Re quested Visits Authorized [id number] Closed 01/20/2024 07/21/2025 1 1 Encounter Details Date Type Department Care Team (Latest Contact Info) Description 02/20/2024 1:00 PM CDT Comprehensive Visit Department of Neurology in [place], [place] [address] [place] [phone] Piter Baez M.D. 200 [place] [phone] Posterior Reversible Encephalopathy Syndrome Social History Tobacco Use Types Packs/Day Years Used Date Smoking Tobacco: Light Smoker Cigarettes 0.5 44.2 Started: 02/26/1980 Smokeless Tobacco: Never Comments:On again off again Alcohol Use Standard Drinks/Week Comments Yes 0 (1 standard drink = 0.6 oz pur e alcohol) [facility] Utilities Answer Date Recorded In [...] How often do you attend muslim or yarsani serv ices? Never 06/27/2020 Do [...] heating? Somewhat hard 06/27/2020 [facility] [place] of Occupat ional Health - Occupational Stress [...] situation today? I have a [facility] place to live 11/05/2023 Education Answer [...] . Referring provider: Katerine Bashir M.D. [address] [place] [phone] HISTORY OF PRESENT ILLNESS Pleasant 68-year-old right-handed woman accompanied by her who is referred by her PCP for an initial neurology evaluation regarding recent hospitalization elsewhere for PRES. She gets her ophthalmology care at [place] by Dr. 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 She gets all of her care for other medical conditions in [place] and I do not have access to [facility] these records. Potentially relevant past medical issues include a english drawer treating her with methotrexate for ???itchy bumps?? 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 [...] her care here rather thanreturning to the [facility]. We have scheduled an MRI [...] Hospital Encounter [facility] [address] [place] [phone] Prakash Graham M.D. [address] [place] [phone] 04/27/2024 11:45 AM CDT - 04/27/2024 2:42 PM CDT Surgery [facility] [address] [place] [phone] Prakash Graham M.D. [address] [place] [phone] VITRECTOMY - PARS PLANA 25 GAUGE / MEMBRANE PEEL / SILICONE OIL / SCLERAL BUCKLE AND ALL ASSOCIATED PROCEDURES RIGHT EYE 04/28/2024 8:00 AM CDT Office Visit Department of Ophthalmology in [address] [phone] Prakash Graham M.D. [address] [place] [phone] 05/05/2024 1:15 PM CDT Ancillary Procedure Department of Ophthalmology in [address] [phone] Prakash Graham M.D. [address] [place] [phone] 05/05/2024 1:45 PM CDT Office Visit Department of Ophthalmology in [address] [phone] Prakash Graham M.D. [address] [place] [phone] 06/02/2024 8:15 AM CDT Ancillary Procedure Department of Ophthalmology in [address] [phone] Prakash Graham M.D. [address] [place] [phone] 06/02/2024 8:45 AM CDT Ancillary Procedure Department of Ophthalmology in [address] [phone] Prakash Graham M.D. [address] [place] [phone] 06/02/2024 9:00 AM CDT Office Visit Department of Ophthalmology in [place], [place] [address] [place] [address] Prakash Graham M.D. 200 [place] [phone] Scheduled Procedures Name Priority Associated Diagnoses Date/Ti ia VITRECTOMY - PARS PLANA 25 GAUGE Panuveitis [...] Right documented in this encounter Care Teams Human Resources Director Relationship Specialty Start Date End Date Elsewhere, Pcp PCP - General Internal Medicine 05/29/19 documented as of this encounter
--- OUTSIDE RECORDS SUMMARY | 2024-04-22 08:08 | XMS_ITS | Encounter Summary ---
Author Organization [facility] Address [address] [place] [address] Care Team Providers Care Singer Songwriter Name Role Phone Elsewhere, Pcp Primary Care [...] oz pur e alcohol) [facility] Utilities Answer Date Recorded In the past 12 months has [employer] electric, gas, oil, or water company threatened [...] Never 06/27/2020 How often do you attend christian or alevism serv ices? Never 06/27/2020 Do you belong to any clubs o r organizations such as christian groups, unions, fraternal or athletic groups, or [...] Somewhat hard 06/27/2020 [facility] - Occupational Stress Questionnaire Answer Date [...] Encounter [facility]ST [facility] OR [facility] [place] [phone] Prakash Graham M.D. [address] [place] [phone] 04/27/2024 11:45 AM CDT - 04/27/2024 2:42 PM CDT Surgery [facility] OR [facility] [address] [place] [phone] Prakash Graham M.D. [address] [place] [phone] VITRECTOMY - PARS PLANA 25 GAUGE / MEMBRANE PEEL / SILICONE OIL / SCLERAL BUCKLE AND ALL ASSOCIATED PROCEDURES RIGHT EYE 04/28/2024 8:00 AM CDT Office Visit Department of Ophthalmology in [place], [place] [address] [place] [phone] Prakash Graham M.D. [address] [place] [phone] 05/05/2024 1:15 PM CDT Ancillary Procedure Department of Ophthalmology in [place], [place] [address] [place] [phone] Prakash Graham M.D. [address] [place] [phone] 05/05/2024 1:45 PM CDT Office Visit Department of Ophthalmology in [place], [place] [address] [place] [phone] Prakash Graham M.D. [address] [place] [phone] 06/02/2024 8:15 AM CDT Ancillary Procedure Department of Ophthalmology in [place], [place] [address] [place] [phone] Prakash Graham M.D. [address] [place] [phone] 06/02/2024 8:45 AM CDT Ancillary Procedure Department of Ophthalmology in [place], [place] [address] [place] [phone] Prakash Graham M.D. [address] [place] [phone] 06/02/2024 9:00 AM CDT Office Visit Department of Ophthalmology in [place], [place] [address] [place] [phone] Prakash Graham M.D. [address] [place] [phone] Scheduled Procedures Name Priority Associated Diagnoses Date/Ti mi VITRECTOMY - PARS PLANA 25 GAUGE Panuveitis Right Necrosis Retinal Acute Right 04/27/2024 11:45 AM CDT [facility] Panuveitis Right Necrosis Retinal Acute Right 04/27/2024 11:45 AM CDT documented as of this encounter Procedures Procedure Name Priority Date/Time Associated Diagnosis Comments OPHTHALMOLOGY IMAGE EXAM Routine 03/13/2024 12:10 AM CDT documented in this encounter Results * Eyes US-Eye [id number] Image Exam (03/13/2024 12:10 AM CDT) Narrative [...] on filedocumented in this encounter Care Teams Singer Songwriter Relationship Specialty Start Date End Date Elsewhere, Pcp PCP - General Internal Medicine 05/29/19 documented as of this encounter
--- OUTSIDE RECORDS SUMMARY | 2024-04-22 08:08 | XMS_ITS | Encounter Summary ---
Author Organization [facility] Address [address] [place] [address] Care Team Providers Care Nutrition Associate Name Role Phone Elsewhere, Pcp Primary [...] = 0.6 oz pur e alcohol) [facility] Utilities Answer Date Recorded In the past 12 months has th [employer] electric, gas, oil, or water company threatened [...] How often do you attend islam or muslim serv ices? Never 06/27/2020 Do [...] care, and heating? Somewhat hard 06/27/2020 [facility]at [facility] - Occupational Stress Questionnaire Answer Date [...] 04/27/2024 11:45 AM CDT Hospital Encounter [facility] [address] [place] [phone] Prakash Graham M.D. [address] [place] [phone] 04/27/2024 11:45 AM CDT - 04/27/2024 2:42 PM CDT Surgery [facility] OR [facility] [place] [phone] Prakash Graham M.D. [address] [place] [phone] VITRECTOMY - PARS PLANA 25 GAUGE / MEMBRANE PEEL / SILICONE OIL / SCLERAL BUCKLE AND ALL ASSOCIATED PROCEDURES RIGHT EYE 04/28/2024 8:00 AM CDT Office Visit Department of Ophthalmology in [place], [place] [address] [place] [phone] Prakash Graham M.D. [address] [place] [phone] 05/05/2024 1:15 PM CDT Ancillary Procedure Department of Ophthalmology in [place], [place] [address] [place] [phone] Prakash Graham M.D. [address] [place] [phone] 05/05/2024 1:45 PM CDT Office Visit Department of Ophthalmology in [place], [place] [address] [place] [phone] Prakash Graham M.D. [address] [place] [phone] 06/02/2024 8:15 AM CDT Ancillary Procedure Department of Ophthalmology in [place], [place] [address] [place] [phone] Prakash Graham M.D. [address] [place] [phone] 06/02/2024 8:45 AM CDT Ancillary Procedure Department of Ophthalmology in [place], [place] [address] [place] [phone] Prakash Graham M.D. [address] [place] [phone] 06/02/2024 9:00 AM CDT Office Visit Department of Ophthalmology in [place], [place] [address] [place] [phone] Prakash Graham M.D. [address] [place] [phone] Scheduled Procedures Name Priority Associated Diagnoses Date/Ti [...] in this encounter Results * Video-Eyes US-Eye [id number] Image Exam (02/20/2024 12:00 AM CDT) Narrative [...] on filedocumented in this encounter Care Teams Nutrition Associate Relationship Specialty Start Date End Date Elsewhere, Pcp PCP - General Internal Medicine 05/29/19 documented as of this encounter
--- OUTSIDE RECORDS SUMMARY | 2024-04-22 08:08 | XMS_ITS | Encounter Summary ---
Author Organization [facility] Address [address] [place] [address] Care Team Providers Care Manager Copy Name Role Phone Elsewhere, Pcp Primary Care Provider Unavailabl e Encounter Details Date Type Department Care Team (Latest Contact Info) Description 02/20/2024 10:00 AM CDT Ancillary Procedure Department of Ophthalmology in [place], [place] [address] [place] [address] Kenya Garza M.D. [address] [place] [address] Panuveitis Right; Necrosis Retinal Acute Right Social History Tobacco Use Types Packs/Day Years Used Date Smoking Tobacco: Light Smoker Cigarettes 0.5 44.2 Started: 02/26/1980 Smokeless Tobacco: Never Comments:On again off again Alcohol Use Standard Drinks/Week Comments Yes 0 (1 standard drink = 0.6 oz pur e alcohol) [facility] Utilities Answer Date Recorded In the past 12 months has [employer], gas, oil, or water [employer] threatened to shut off services in your home? No 11/05/2023 Social Connection and Isolation Panel [NHANES] A nswer Date Recorded In a typical week, how many times do you talk on the phone with family, friends, or neighbors? Once a week 06/27/2020 How often do you get together with friends or re latives? Never 06/27/2020 How often do you attend zoroastrian or rastafarian serv ices? Never 06/27/2020 Do [...] Somewhat hard 06/27/2020 [facility] of Occupat ional Health - [...] your living situation today? I have a [facility] place to live 11/05/2023 Education [...] 04/27/2024 11:45 AM CDT Hospital Encounter [facility] [place] [address] [place] [phone] Prakash Graham M.D. [address] [place] [phone] 04/27/2024 11:45 AM CDT - 04/27/2024 2:42 PM CDT Surgery [facility] OR [address] [place] [phone] Prakash Graham M.D. [address] [place] [phone] VITRECTOMY - PARS PLANA 25 GAUGE / MEMBRANE PEEL / SILICONE OIL / SCLERAL BUCKLE AND ALL ASSOCIATED PROCEDURES RIGHT EYE 04/28/2024 8:00 AM CDT Office Visit Department of Ophthalmology in [place], [place] [address] [place] [phone] Prakash Graham M.D. [address] [place] [phone] 05/05/2024 1:15 PM CDT Ancillary Procedure Department of Ophthalmology in [place], [place] [address] [place] [phone] Prakash Graham M.D. [address] [place] [phone] 05/05/2024 1:45 PM CDT Office Visit Department of Ophthalmology in [place], [place] [address] [place] [phone] Prakash Graham M.D. [address] [place] [phone] 06/02/2024 8:15 AM CDT Ancillary Procedure Department of Ophthalmology in [place], [place] [address] [place] [phone] Prakash Graham M.D. [address] [place] [phone] 06/02/2024 8:45 AM CDT Ancillary Procedure Department of Ophthalmology in [place], [place] [address] [place] [phone] Prakash Graham M.D. [address] [place] [phone] 06/02/2024 9:00 AM CDT Office Visit Department of Ophthalmology in [place], [place] [address] [place] [phone] Prakash Graham M.D. [address] [place] [phone] Scheduled Procedures Name Priority Associated Diagnoses Date/Ti [...] Right documented in this encounter Care Teams Manager Copy Relationship Specialty Start Date End Date Elsewhere, Pcp PCP - General Internal Medicine 05/29/19 documented as of this encounter
--- OUTSIDE RECORDS SUMMARY | 2024-04-22 08:08 | XMS_ITS | Encounter Summary ---
Author Organization [facility] Address [address] [place] [address] Care Team Providers Care Milling Machine Tender Name Role Phone Elsewhere, Pcp Primary Care Provider Unavailabl e Reason for Referral * Outpatient (Routine) - Closed Specialty Diagnoses / Procedures Referred By Apolinar lopez Referred To Contact Ophthalmology Diagnoses Panuveitis Right Necrosis Retinal Acute Right Kenya Garza M.D. [address] [place] [address] [facility] Referral ID Status Reason Start Date Expiration Date Visits Re quested Visits Authorized [id number] Closed 02/20/2024 08/21/2025 1 1 Reason for Visit * Outpatient (Routine) - Closed Specialty Diagnoses / Procedures Referred By Apolinar lopez Referred To Contact Ophthalmology Diagnoses Panuveitis Right Necrosis Retinal Acute Right Kenya Garza M.D. [address] [place] [address] [facility] Referral ID Status Reason Start Date Expiration Date Visits Re quested Visits Authorized [id number] Closed 01/23/2024 07/24/2025 1 1 Encounter Details Date Type Department Care Team (Latest Contact Info) Description 02/20/2024 11:15 AM CDT Office Visit Department of Ophthalmology in [place], [place] [address] [place] [phone] Kenya Garza M.D. [address] [place] [phone] Panuveitis Right (Primary Dx); Necrosis Retinal Acute [...] has e electric, gas, oil, or water [employer] threatened to shut off services in your home? No 11/05/2023 Social Connection and Isolation Panel [NHANES] A nswer Date Recorded In a typical week, how many times do you talk on the phone with family, friends, or neighbors? Once a week 06/27/2020 How often do you get together with friends or re latives? Never 06/27/2020 How often do you attend cheondoism or christian serv ices? Never 06/27/2020 Do you belong to any clubs o r organizations such as cheondoism groups, unions, fraternal or athletic groups, or [...] heating? Somewhat hard 06/27/2020 [facility] [place] of Occupat ional Health - Occupational Stress [...] your living situation today? I have a [employer] place to live 11/05/2023 Education Answer Date [...] with tobramycin drops without improvement. She saw optical instrument assembler Dr. Daisy Ivy on 10/23/23. [facility] was [...] has not been able to see her research dietitian oncologist recently because every time she went to an appointment she was sent to the emergency room due to elevated blood pressure. In August 2023, she was sent from an infusion center to [place] emergency department where shewas found to have oxygen saturations of 78%. CT imaging showed worsening bilateral ground glass opacities. A CT scan was negative for pulmonary embolism. She was transferred to [facility] for additional pulmonology care. On [...] three times in the past three months: [place] (09/02/23 for hypercalcemiaand acute kidney injury - had CT chest/abdomen/pelvis to assess for malignancy), [place] in [facility] again. Each time she saw her oncologist, [...] plans to monitor. (Her oncologist is at [facility] MEDICATIONS Prednisolone every hour while awake right [...] retinal detachment. No T sign noted. [facility] Macula OCT of the right eye [...] Possible posterior thickening. No T sign. 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 H PLAN: It has been 21 days since [...] CDT Hospital Encounter [facility] [place] [address] [place] [phone] Prakash Graham M.D. [address] [place] [phone] 04/27/2024 11:45 AM CDT - 04/27/2024 2:42 PM CDT Surgery [facility] [place] [address] [place] [phone] Prakash Graham M.D. [address] [place] [phone] VITRECTOMY - PARS PLANA 25 GAUGE / MEMBRANE PEEL / SILICONE OIL / SCLERAL BUCKLE AND ALL ASSOCIATED PROCEDURES RIGHT EYE 04/28/2024 8:00 AM CDT Office Visit Department of Ophthalmology in [place], [place] [address] [place] [phone] Prakash Graham M.D. [address] [place] [phone] 05/05/2024 1:15 PM CDT Ancillary Procedure Department of Ophthalmology in [address] [phone] Prakash Graham M.D. [address] [place] [phone] 05/05/2024 1:45 PM CDT Office Visit Department of Ophthalmology in [address] [phone] Prakash Graham M.D. [address] [place] [phone] 06/02/2024 8:15 AM CDT Ancillary Procedure Department of Ophthalmology in [place], [place] [address] [place] [address] Prakash Graham M.D. [address] [place] [phone] 06/02/2024 8:45 AM CDT Ancillary Procedure Department of Ophthalmology in [place], [place] [address] [place] [phone] Prakash Graham M.D. [address] [place] [phone] 06/02/2024 9:00 AM CDT Office Visit Department of Ophthalmology in [place], [place] [address] [place] [address] Prakash Graham M.D. [address] [place] [phone] Scheduled Procedures Name Priority Associated Diagnoses Date/Ti [...] Garza M.D. OPH ULTRASOUND Performing Organization Address [facility] Co de Phone [...] possible ciliochoroidal effusion. ZK Kenya Garza M.D. 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
--- OUTSIDE RECORDS SUMMARY | 2024-04-22 08:08 | XMS_ITS | Encounter Summary ---
Author Organization [facility] Address [address] [place] [address] Care Team Providers Care Process Supervisor Name Role Phone Elsewhere, Pcp Primary [...] drink = 0.6 oz pur e alcohol) [facility] Utilities Answer Date Recorded In the past 12 months has [employer] electric, gas, oil, or water company [...] How often do you attend evangelical or buddhism serv ices? Never 06/27/2020 Do [...] Somewhat hard 06/27/2020 [facility] - Occupational Stress Questionnaire Answer Date [...] 04/27/2024 11:45 AM CDT Hospital Encounter [facility] [place] [phone] Prakash Graham M.D. [address] [place] [phone] 04/27/2024 11:45 AM CDT - 04/27/2024 2:42 PM CDT Surgery [facility] [address] [place] [phone] Prakash Graham M.D. [address] [place] [phone] VITRECTOMY - PARS PLANA 25 GAUGE / MEMBRANE PEEL / SILICONE OIL / SCLERAL BUCKLE AND ALL ASSOCIATED PROCEDURES RIGHT EYE 04/28/2024 8:00 AM CDT Office Visit Department of Ophthalmology in [place], [place] [address] [place] [phone] Prakash Graham M.D. [address] [place] [phone] 05/05/2024 1:15 PM CDT Ancillary Procedure Department of Ophthalmology in [place], [place] [address] [place] [phone] Prakash Graham M.D. [address] [place] [phone] 05/05/2024 1:45 PM CDT Office Visit Department of Ophthalmology in [place], [place] [address] [place] [phone] Prakash Graham M.D. [address] [place] [phone] 06/02/2024 8:15 AM CDT Ancillary Procedure Department of Ophthalmology in [place], [place] [address] [place] [phone] Prakash Graham M.D. [address] [place] [phone] 06/02/2024 8:45 AM CDT Ancillary Procedure Department of Ophthalmology in [place], [place] [address] [place] [phone] Prakash Graham M.D. [address] [place] [phone] 06/02/2024 9:00 AM CDT Office Visit Department of Ophthalmology in [place], [place] [address] [place] [phone] Prakash Graham M.D. [address] [place] [phone] Scheduled Procedures Name Priority Associated Diagnoses Date/Ti az VITRECTOMY - PARS PLANA 25 GAUGE Panuveitis Right Necrosis Retinal Acute Right 04/27/2024 11:45 AM CDT [place] Panuveitis Right Necrosis Retinal Acute Right 04/27/2024 11:45 AM CDT documented as of this encounter Procedures Procedure Name Priority Date/Time Associated Diagnosis Comments OPHTHALMOLOGY IMAGE EXAM Routine 02/20/2024 12:05 AM CDT documented in this encounter Results * Eyes US-Eye O-Gkif-Exlllfdmiflqk Image Exam (02/20/2024 12:05 AM CDT) Narrative [...] on filedocumented in this encounter Care Teams Process Supervisor Relationship Specialty Start Date End Date Elsewhere, Pcp PCP - General Internal Medicine 05/29/19 documented as of this encounter
--- OUTSIDE RECORDS SUMMARY | 2024-04-22 08:09 | XMS_ITS | Encounter Summary ---
Author Organization [facility] Address [address] [place] [address] Care Team Providers Care Medical Records Auditor Name Role Phone Elsewhere, Pcp Primary Care Provider Unavailabl e Encounter Details Date Type Department Care Team (Latest Contact Info) Description 02/20/2024 9:50 AM CDT Ancillary Procedure Department of Ophthalmology in [place], [place] [address] [place] [address] Kenya Garza M.D. [address] [place] [phone] Panuveitis Right; Necrosis Retinal Acute Right Social History Tobacco Use Types Packs/Day Years Used Date Smoking Tobacco: Light Smoker Cigarettes 0.5 44.2 Started: 02/26/1980 Smokeless Tobacco: Never Comments:On again off again Alcohol Use Standard Drinks/Week Comments Yes 0 (1 standard drink = 0.6 oz pur e alcohol) [facility] Utilities Answer Date Recorded In the past 12 months has [employer], gas, oil, or water [employer] threatened to shut off services in your home? No 11/05/2023 Social Connection and Isolation Panel [NHANES] A nswer Date Recorded In a typical week, how many times do you talk on the phone with family, friends, or neighbors? Once a week 06/27/2020 How often do you get together with friends or re latives? Never 06/27/2020 How often do you attend mormon or zoroastrianism serv ices? Never 06/27/2020 Do you belong to any clubs o r organizations such as mormon groups, unions, fraternal or athletic groups, or [...] [facility] of Occupat ional Health - [...] 04/27/2024 11:45 AM CDT Hospital Encounter [facility] [place] [address] [place] [phone] Prakash Graham M.D. [address] [place] [phone] 04/27/2024 11:45 AM CDT - 04/27/2024 2:42 PM CDT Surgery [facility] OR [address] [place] [phone] Prakash Graham M.D. [address] [place] [phone] VITRECTOMY - PARS PLANA 25 GAUGE / MEMBRANE PEEL / SILICONE OIL / SCLERAL BUCKLE AND ALL ASSOCIATED PROCEDURES RIGHT EYE 04/28/2024 8:00 AM CDT Office Visit Department of Ophthalmology in [place], [place] [address] [place] [phone] Prakash Graham M.D. [address] [place] [phone] 05/05/2024 1:15 PM CDT Ancillary Procedure Department of Ophthalmology in [place], [place] [address] [place] [phone] Prakash Graham M.D. [address] [place] [phone] 05/05/2024 1:45 PM CDT Office Visit Department of Ophthalmology in [place], [place] [address] [place] [phone] Prakash Graham M.D. [address] [place] [phone] 06/02/2024 8:15 AM CDT Ancillary Procedure Department of Ophthalmology in [place], [place] [address] [place] [phone] Prakash Graham M.D. [address] [place] [phone] 06/02/2024 8:45 AM CDT Ancillary Procedure Department of Ophthalmology in [place], [place] [address] [place] [phone] Prakash Graham M.D. [address] [place] [phone] 06/02/2024 9:00 AM CDT Office Visit Department of Ophthalmology in [place], [place] [address] [place] [phone] Prakash Graham M.D. [address] [place] [phone] Scheduled Procedures Name Priority Associated Diagnoses Date/Ti [...] documented in this encounter Care Teams Medical Records Auditor Relationship Specialty Start Date End Date Elsewhere, Pcp PCP - General Internal Medicine 05/29/19 documented as of this encounter
--- OUTSIDE RECORDS SUMMARY | 2024-04-22 08:09 | XMS_ITS | Encounter Summary ---
Author Organization [facility] Address [address] [place] [address] Care Team Providers Care Bird Cage Assembler Name Role Phone Elsewhere, Pcp Primary Care Provider Unavailabl e Reason for Referral * Outpatient (Routine) - Closed Specialty Diagnoses / Procedures Referred By Apolinar t Referred To Contact Neurology Diagnoses Posterior Reversible Encephalopathy Syndrome Katerine Bashir M.D. [address] [place] [phone] [facility] Referral ID Status Reason Start Date Expiration Date Visits Re quested Visits Authorized [id number] Closed 01/20/2024 07/21/2025 1 1 Encounter Details Date Type Department Care Team (Latest Contact Info) Description 01/20/2024 [facility] [address] [place] [address] Katerine Bashir M.D. [address] [place] [address] Posterior Reversible Encephalopathy Syndrome (Primary Dx) Social History Tobacco Use Types Packs/Day Years Used Date Smoking Tobacco: Light Smoker Cigarettes 0.5 44.2 Started: 02/26/1980 Smokeless Tobacco: Never Comments:On again off again Alcohol Use Standard Drinks/Week Comments Yes 0 (1 standard drink = 0.6 oz pur e alcohol) [facility] Utilities Answer Date Recorded In the past 12 months has [employer], gas, oil, or water [employer] threatened to shut off services in your home? No 11/05/2023 Social Connection and Isolation Panel [NHANES] A nswer Date Recorded In a typical week, how many times do you talk on the phone with family, friends, or neighbors? Once a week 06/27/2020 How often do you get together with friends or re latives? Never 06/27/2020 How often do you attend buddhist or gnosticism serv ices? Never 06/27/2020 Do [...] Somewhat hard 06/27/2020 [facility] of Occupat ional Health - Occupational [...] 04/27/2024 11:45 AM CDT Hospital Encounter [facility] [place] [address] [place] [phone] Prakash Graham M.D. [address] [place] [phone] 04/27/2024 11:45 AM CDT - 04/27/2024 2:42 PM CDT Surgery [facility] [place] [address] [place] [phone] Prakash Graham M.D. [address] [place] [phone] VITRECTOMY - PARS PLANA 25 GAUGE / MEMBRANE PEEL / SILICONE OIL / SCLERAL BUCKLE AND ALL ASSOCIATED PROCEDURES RIGHT EYE 04/28/2024 8:00 AM CDT Office Visit Department of Ophthalmology in [place], [place] [address] [place] [phone] Prakash Graham M.D. [address] [place] [phone] 05/05/2024 1:15 PM CDT Ancillary Procedure Department of Ophthalmology in [place], [place] [address] [place] [phone] Prakash Graham M.D. [address] [place] [phone] 05/05/2024 1:45 PM CDT Office Visit Department of Ophthalmology in [place], [place] [address] [place] [phone] Prakash Graham M.D. [address] [place] [phone] 06/02/2024 8:15 AM CDT Ancillary Procedure Department of Ophthalmology in [place], [place] [address] [place] [phone] Prakash Graham M.D. [address] [place] [phone] 06/02/2024 8:45 AM CDT Ancillary Procedure Department of Ophthalmology in [place], [place] [address] [place] [phone] Prakash Graham M.D. [address] [place] [phone] 06/02/2024 9:00 AM CDT Office Visit Department of Ophthalmology in [place], [place] [address] [place] [phone] Prakash Graham M.D. [address] [place] [phone] Scheduled Procedures Name Priority Associated Diagnoses Date/Ti [...] Right documented in this encounter Care Teams Bird Cage Assembler Relationship Specialty Start Date End Date Elsewhere, Pcp PCP - General Internal Medicine 05/29/19 documented as of this encounter
--- OUTSIDE RECORDS SUMMARY | 2024-04-22 08:09 | XMS_ITS | Encounter Summary ---
Author Organization [facility] Address [address] [place] [address] Care Team Providers Care Materials Planner/Production Planner Name Role Phone Elsewhere, Pcp Primary Care Provider Unavailabl e Reason for Referral * Outpatient (Routine) - Closed Specialty Diagnoses / Procedures Referred By Apolinar lopez Referred To Contact Ophthalmology Diagnoses Panuveitis Right Necrosis Retinal Acute Right Kenya Garza M.D. [address] [place] [phone] [facility] Referral ID Status Reason Start Date Expiration Date Visits Re quested Visits Authorized [id number] Closed 01/23/2024 07/24/2025 1 1 Reason for Visit * Outpatient (Routine) - Closed Specialty Diagnoses / Procedures Referred By Apolinar lopez Referred To Contact Ophthalmology Kenya Garza M.D. [address] [place] [phone] [facility] Referral ID Status Reason Start Date Expiration Date Visits Re quested Visits Authorized [id number] Closed 01/01/2024 07/02/2025 1 1 Encounter Details Date Type Department Care Team (Latest Contact Info) Description 01/23/2024 12:00 PM CDT Office Visit Department of Ophthalmology in [place], [place] [address] [place] [phone] Kenya Garza M.D. [address] [place] [phone] Panuveitis Right (Primary Dx); Necrosis Retinal Acute Right Social History Tobacco Use Types Packs/Day Years Used Date Smoking Tobacco: Light Smoker Cigarettes 0.5 44.2 Started: 02/26/1980 Smokeless Tobacco: Never Comments:On again off again Alcohol Use Standard Drinks/Week Comments Yes 0 (1 standard drink = 0.6 oz pur e alcohol) [facility] Utilities Answer Date Recorded In the [...] How often do you attend cheondoism or yazdanism serv ices? Never 06/27/2020 Do [...] medical care, and heating? Somewhat hard 06/27/2020 [facility] of Occupat ional Health - Occupational Stress [...] your living situation today? I have a [facility] place to live 11/05/2023 Education Answer [...] 02/20/24 Call with questions or new symptoms: [phone] documented in this encounter Progress Notes * [...] with tobramycin drops without improvement. She saw fish trapper Dr. Daisy Ivy on 10/23/23. [facility] was [...] has not been able to see her chief contract officer oncologist recently because every time she went to an appointment she was sent to the emergency room due to elevated blood pressure. In August 2023, she was sent from an infusion center to [place] emergency department where shewas found to have oxygen saturations of 78%. CT imaging showed worsening bilateral ground glass opacities. A CT scan was negative for pulmonary embolism. She was transferred [facility] for additional pulmonology care. On 09/12/23 [...] three times in the past three months: [place] (09/02/23 for hypercalcemiaand acute kidney injury - had CT chest/abdomen/pelvis to assess for malignancy), [facility] again. Each time she saw her [...] plans to monitor. (Her oncologist is at [facility].) MEDICATIONS Prednisolone every hour while awake [...] shallow retinal detachment. No T sign noted. [facility] Macula OCT of the right eye [...] membranes. Possible posterior thickening. No T sign. 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 No T sign noted. [facility] [facility] There is slow involution of the [...] rule out shallow detachment vs subhyaloid opacities. [facility] PLAN: It has been 21 days [...] rule out shallow detachment vs subhyaloid opacities. 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 [address] [place] [phone] 04/27/2024 11:45 AM CDT - 04/27/2024 2:42 PM CDT Surgery [facility] [address] [place] [phone] Prakash Graham M.D. [address] [place] [phone] VITRECTOMY - PARS PLANA 25 GAUGE / MEMBRANE PEEL / SILICONE OIL / SCLERAL BUCKLE AND ALL ASSOCIATED PROCEDURES RIGHT EYE 04/28/2024 8:00 AM CDT Office Visit Department of Ophthalmology in [address] [phone] Prakash Graham M.D. [address] [place] [phone] 05/05/2024 1:15 PM CDT Ancillary Procedure Department of Ophthalmology in [address] [phone] rPakash Graham M.D. [address] [place] [phone] 05/05/2024 1:45 PM CDT Office Visit Department of Ophthalmology in [address] [phone] Prakash Graham M.D. [address] [place] [phone] 06/02/2024 8:15 AM CDT Ancillary Procedure Department of Ophthalmology in [address] [phone] Prakash Graham M.D. [address] [place] [phone] 06/02/2024 8:45 AM CDT Ancillary Procedure Department of Ophthalmology in [address] [phone] Prakash Graham M.D. [address] [place] [phone] 06/02/2024 9:00 AM CDT Office Visit Department of Ophthalmology in [place], [place] [address] [place] [address] Prakash Graham M.D. [address] [place] [address] Scheduled Procedures Name Priority Associated Diagnoses Date/Ti [...] Right documented in this encounter Care Teams Materials Planner/Production Planner Relationship Specialty Start Date End Date Elsewhere, Pcp PCP - General Internal Medicine 05/29/19 documented as of this encounter
--- OUTSIDE RECORDS SUMMARY | 2024-04-22 08:09 | XMS_ITS | Encounter Summary ---
Author Organization [facility] Address [address] [place] [address] Care Team Providers Care Manager Critical Care Name Role Phone Elsewhere, Pcp Primary Care Provider Unavailabl e Reason for Referral * Outpatient (Routine) - Closed Specialty Diagnoses / Procedures Referred By Contac t Referred To Contact Cardiovascular Disease Diagnoses Coronary Artery Disease (Unspecified) Katerine Bashir M.D. [address] [place] [address] [facility] Referral ID Status Reason Start Date Expiration Date Visits Re quested Visits Authorized [id number] Closed 02/10/2019 02/10/2020 3 3 Encounter Details Date Type Department Care Team (Late st Contact Info) Description 02/10/2019 [facility] [address] [place] [address] Katerine Bashir M.D. [address] [place] [address] Coronary Artery Disease (Unspecified) (Primary [...] 11:45 AM CDT [facility] [address] [place] [phone] Prakash Graham M.D. [address] [place] [phone] 04/27/2024 11:45 AM CDT - 04/27/2024 2:42 PM CDT Surgery [facility] [address] [place] [phone] Prakash Graham M.D. [address] [place] [phone] VITRECTOMY - PARS PLANA 25 GAUGE / MEMBRANE PEEL / SILICONE OIL / SCLERAL BUCKLE AND ALL ASSOCIATED PROCEDURES RIGHT EYE 04/28/2024 8:00 AM CDT Office Visit Department of Ophthalmology in [place], [place] [address] [place] [phone] Prakash Graham M.D. [address] [place] [phone] 05/05/2024 1:15 PM CDT Ancillary Procedure Department of Ophthalmology in [place], [place] [address] [place] [phone] Prakash Graham M.D. [address] [place] [phone] 05/05/2024 1:45 PM CDT Office Visit Department of Ophthalmology in [place], [place] [address] [place] [phone] Prakash Graham M.D. [address] [place] [phone] 06/02/2024 8:15 AM CDT Ancillary Procedure Department of Ophthalmology in [place], [place] [address] [place] [phone] Prakash Graham M.D. [address] [place] [phone] 06/02/2024 8:45 AM CDT Ancillary Procedure Department of Ophthalmology in [place], [place] [address] [place] [phone] Prakash Graham M.D. [address] [place] [phone] 06/02/2024 9:00 AM CDT Office Visit Department of Ophthalmology in [place], [place] [address] [place] [address] Prakash Graham M.D. [address] [place] [phone] Scheduled Procedures Name Priority Associated Diagnoses Date/Ti [...] documented as of this encounter Care Teams Manager Critical Care Relationship Specialty Start Date End Date Elsewhere, Pcp PCP - General Internal Medicine 05/29/19 documented as of this encounter
--- OUTSIDE RECORDS SUMMARY | 2024-04-22 08:09 | XMS_ITS | Encounter Summary ---
Author Organization [facility] Address [address] [place] [address] Care Team Providers Care Network Infrastructure Architect Name Role Phone Elsewhere, Pcp Primary Care Provider Unavailabl e Reason for Referral * Outpatient (Routine) - Closed Specialty Diagnoses / Procedures Referred By Contac t Referred To Contact Cardiovascular Disease Diagnoses Coronary Artery Disease (Unspecified) Katerine Bashir M.D. [address] [place] [address] [facility] Referral ID Status Reason Start Date Expiration Date Visits Re quested Visits Authorized [id number] Closed 02/12/2019 02/12/2020 1 1 Encounter Details Date Type Department Care Team (Late st Contact Info) Description 02/12/2019 [facility] [address] [place] [address] Katerine Bashir M.D. [address] [place] [address] Coronary Artery Disease (Unspecified) (Primary [...] 04/27/2024 11:45 AM CDT [facility] [address] [place] [phone] Prakash Graham M.D. [address] [place] [phone] 04/27/2024 11:45 AM CDT - 04/27/2024 2:42 PM CDT Surgery [facility] [address] [place] [phone] Prakash Graham M.D. [address] [place] [phone] VITRECTOMY - PARS PLANA 25 GAUGE / MEMBRANE PEEL / SILICONE OIL / SCLERAL BUCKLE AND ALL ASSOCIATED PROCEDURES RIGHT EYE 04/28/2024 8:00 AM CDT Office Visit Department of Ophthalmology in [place], [place] [address] [place] [phone] Prakash Graham M.D. [address] [place] [phone] 05/05/2024 1:15 PM CDT Ancillary Procedure Department of Ophthalmology in [place], [place] [address] [place] [phone] Prakash Graham M.D. [address] [place] [phone] 05/05/2024 1:45 PM CDT Office Visit Department of Ophthalmology in [place], [place] [address] [place] [phone] Prakash Graham M.D. [address] [place] [phone] 06/02/2024 8:15 AM CDT Ancillary Procedure Department of Ophthalmology in [place], [place] [address] [place] [phone] Prakash Graham M.D. [address] [place] [phone] 06/02/2024 8:45 AM CDT Ancillary Procedure Department of Ophthalmology in [place], [place] [address] [place] [phone] Prakash Graham M.D. [address] [place] [phone] 06/02/2024 9:00 AM CDT Office Visit Department of Ophthalmology in [place], [place] [address] [place] [address] Prakash Graham M.D. [address] [place] [phone] Scheduled Procedures Name Priority Associated Diagnoses Date/Ti [...] documented as of this encounter Care Teams Network Infrastructure Architect Relationship Specialty Start Date End Date Elsewhere, Pcp PCP - General Internal Medicine 05/29/19 documented as of this encounter
--- OUTSIDE RECORDS SUMMARY | 2024-04-22 08:09 | XMS_ITS | Encounter Summary ---
Author Organization [facility] Address [address] [place] [address] Care Team Providers Care Secondary English Teacher Name Role Phone Elsewhere, Pcp Primary Care Provider Unavailabl e Reason for Visit * Reason Onset Date Comments Outside hospitalization and medications 01/10/20 Encounter Details Date Type Department Care Team (Latest Contact Info) Description 01/10/2024 Clinical Communication Department of Ophthalmology in [place], [place] [address] [place] [phone] Kenya Garza M.D. [address] [place] [address] Outside hospitalization and medications Social History Tobacco Use Types Packs/Day Years Used Date Smoking Tobacco: Light Smoker Cigarettes 0.5 44.2 Started: 02/26/1980 Smokeless Tobacco: Never Comments:On again off again Alcohol Use Standard Drinks/Week Comments Yes 0 (1 standard drink = 0.6 oz pur e alcohol) [facility] Utilities Answer Date Recorded In the past 12 months has [employer], gas, oil, or water [employer] threatened to shut off services in your home? No 11/05/2023 Social Connection and Isolation Panel [NHANES] A nswer Date Recorded In a typical week, how many times do you talk on the phone with family, friends, or neighbors? Once a week 06/27/2020 How often do you get together with friends or re latives? Never 06/27/2020 How often do you attend quaker or jain serv ices? Never 06/27/2020 Do [...] medical care, and heating? Somewhat hard 06/27/2020 [facility] [...] 04/27/2024 11:45 AM CDT Hospital Encounter [facility] Critical access hospital[address] [place] [phone] Prakash Graham M.D. [address] [place] [phone] 04/27/2024 11:45 AM CDT - 04/27/2024 2:42 PM CDT Surgery [facility] Critical access hospital[facility] [address] [place] [phone] Prakash Graham M.D. [address] [place] [phone] VITRECTOMY - PARS PLANA 25 GAUGE / MEMBRANE PEEL / SILICONE OIL / SCLERAL BUCKLE AND ALL ASSOCIATED PROCEDURES RIGHT EYE 04/28/2024 8:00 AM CDT Office Visit Department of Ophthalmology in [place], [place] [address] [place] [phone] Prakash Graham M.D. [address] [place] [phone] 05/05/2024 1:15 PM CDT Ancillary Procedure Department of Ophthalmology in [place], [place] [address] [place] [phone] Prakash Graham M.D. [address] [place] [phone] 05/05/2024 1:45 PM CDT Office Visit Department of Ophthalmology in [place], [place] [address] [place] [phone] Prakash Graham M.D. [address] [place] [phone] 06/02/2024 8:15 AM CDT Ancillary Procedure Department of Ophthalmology in [place], [place] [address] [place] [phone] Prakash Graham M.D. [address] [place] [phone] 06/02/2024 8:45 AM CDT Ancillary Procedure Department of Ophthalmology in [place], [place] [address] [place] [phone] Prakash Graham M.D. [address] [place] [phone] 06/02/2024 9:00 AM CDT Office Visit Department of Ophthalmology in [place], [place] [address] [place] [phone] Prakash Graham M.D. [address] [place] [phone] Scheduled Procedures Name Priority Associated Diagnoses Date/Ti me VITRECTOMY - PARS PLANA 25 GAUGE Panuveitis Right Necrosis Retinal Acute Right 04/27/2024 11:45 AM CDT SCLERAL BUCKLING Panuveitis Right Necrosis Retinal Acute Right 04/27/2024 11:45 AM CDT documented as of this encounter Visit Diagnoses Not on filedocumented in this encounter Care Teams Secondary English Teacher Relationship Specialty Start Date End Date Elsewhere, Pcp PCP - General Internal Medicine 05/29/19 documented as of this encounter
--- OUTSIDE RECORDS SUMMARY | 2024-04-22 08:09 | XMS_ITS | Clinical Summary ---
Author Organization [facility] Address [place], [place] [address] Care Team Providers Care Banbury Operator Name Role Phone Easton Mccormick MD Unavailable [phone] Katerine Bashir MD Primary Care Provider + Allergies Active Allergy Reactions Criticality Noted Date Comments Wheeler Yefri Itching 09/11/2023 Medications Medication Sig Dispensed Refills Start Date End Date Status aspirin (ECOTRIN) 81 mg enteric coated tabletIndications:Non -ST elevation VT (NSTEMI) (HC) Take 1 tablet by mouth once daily with a meal. 0 11/30/2015 Active atorvastatin (LIPITOR) 40 mg tabletIndications:Cor onary artery disease, angina presence unspecified, unspecified vessel or lesion type, unspecified whether [place] or transplanted heart Take 1 tablet [...] ACP (advance care planning) 09/11/2023 Non-ST elevation VT (NSTEMI) 11/19/2015 Melanoma in situ 06/15/2014 Overview: Right lower anterior leg and upper right eyelid. 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 Morbid obesity 04/10/2010 Diabetes mellitus, type 2 HTN (hypertension) CAD (coronary artery disease) Hyperlipidemia LDL goal <70 Encounters Date Type Department Care Team Description 01/23/2024 Telephone [facility] [address] [place] [address] Audrey Givens NP Appointment (Imaging and follow up with APPLE PACKING HEADER ) 01/22/2024 Orders Only [facility] [address] [place] [address] Nicolle Flores MD <No scans attached> from Last 3 Months Immunizations Name Administration [...] Procedure Name Priority Date/Time Associated Diagnosis Comments XR MAMMO BILAT SCREEN FFDM (IA) Routine 10/04/2016 9:00 AM CHANGE MANAGEMENT LEAD Visit for screening mammogram LIPID PANEL W REFLEX MEASURED LDL Routine 09/11/2016 9:26 AM CHANGE MANAGEMENT LEAD Hyperlipidemia, unspecified XR DXA BONE DENSITY 2 SITES AXIAL Routine 08/18/2015 9:25 AM CDT Screening for osteoporosis from Last 3 Months or Most Recently Relevant to Health Maintenance Results * XR MAMMO BILAT SCREEN FFDM (10/04/2016 9:00 AM CHANGE MANAGEMENT LEAD) Anatomical Region Laterality Modality BREASTS, Breast Left, Breast Right Bilateral Mammography Narrative 10/04/2016 1:52 PM CHANGE MANAGEMENT LEAD BILATERAL DIGITAL SCREENING MAMMOGRAM WITH COMPUTER-AIDED DETECTION [...] for Comparison Bernardino Avelar D.O. Diagnostic Radiologist [email or web address] RODRIGUEZ/gurdeep ?? / Bailey Collins NP MAMMO * (ABNORMAL) LIPID PANEL W REFLEX MEASURED LDL (09/11/2016 9:26 AM CHANGE MANAGEMENT LEAD) CHOLESTEROL,TOTAL 159 100 - 199 mg/dL 09/11/2016 10:03 AM CHANGE MANAGEMENT LEAD [facility] TRIGLYCERIDES 183(H) <150 mg/dL 09/11/2016 10:03 AM CHANGE MANAGEMENT LEAD [facility] HDL CHOLESTEROL 36(L) >40 mg/dL 6 10:03 AM CHANGE MANAGEMENT LEAD [facility] NON-HDL CHOLESTEROL 123 <145 mg/dl 09/11/2016 10:03 AM CHANGE MANAGEMENT LEAD [facility] CHOL/HDL RATIO 4.42 <4.50 09/11/2016 10:03 AM CHANGE MANAGEMENT LEAD [facility] LDL CHOLESTEROL 86 <=130 mg/dL 09/11/2016 10:03 AM CHANGE MANAGEMENT LEAD [facility] PATIENT STATUS NOT GIVEN 09/11/2016 10:03 AM CHANGE MANAGEMENT LEAD [facility] Blood BLOOD SPECIMEN / Unknown Venipuncture / Unknown 09/11/2016 9:26 AM CHANGE MANAGEMENT LEAD 09/11/2016 9:26 AM CHANGE MANAGEMENT LEAD Bailey Collins NP CHEMISTRY [facility] [address] [place] [address], [place] [phone] * XR DXA BONE DENSITY 2 SITES (08/18/2015 9:25 AM CDT) Anatomical Region Laterality Modality Spine, HIPS, HIPL, HIPR Other Narrative 08/19/2015 6:36 PM CDT Please see scanned document for results of this study. Bailey Collins APPLE PACKING HEADER DEXA from Last 3 Months or Most [...] Comments Code Status Discussion: Discussed Care Teams Banbury Operator Relationship Specialty Start Date End Date Katerine Bashir MD [address] [place] [address] PCP - General Family Practice 12/27/20 Easton Mccormick MD [address] [facility] [address] [place] [address] Cardiovascular Disease 09/26/16
--- OUTSIDE RECORDS SUMMARY | 2024-04-22 08:09 | XMS_ITS | Encounter Summary ---
Author Organization [facility] Address [address] [place] [address] Care Team Providers Care Gravel Weigher Name Role Phone Elsewhere, Pcp Primary Care Provider Unavailabl e Reason for Referral * MRI/CAT/PET Scan (Routine) - Closed Specialty Diagnoses / Procedures Referred By Apolinar lopez Referred To Contact Radiology Diagnoses Posterior Reversible Encephalopathy Syndrome Procedures MR Brain without and with IV Contrast Piter Baez M.D. [address] [place] [phone] [facility] Referral ID Status Reason Start Date Expiration Date Visits Re quested Visits Authorized [id number] Closed 02/03/2024 10/27/2024 1 1 Reason for Visit * Reason Onset Date Comments Pre-visit Testing Orders 01/31/2024 Encounter Details Date Type Department Care Team (Latest Contact Info) Description 01/31/2024 Clinical Communication Department of Neurology in [place], [place] 200 [place] [phone] Piter Baez M.D. [address] [place] [phone] Pre-visit Testing Orders Social History Tobacco Use Types Packs/Day Years Used Date Smoking Tobacco: Light Smoker Cigarettes 0.5 44.2 Started: 02/26/1980 Smokeless Tobacco: Never Comments:On again off again Alcohol Use Standard Drinks/Week Comments Yes 0 (1 standard drink = 0.6 oz pur e alcohol) [facility] Utilities Answer Date Recorded In the past 12 months has th e electric, gas, oil, or water [employer] threatened to shut off services in your home? No 11/05/2023 Social Connection and Isolation Panel [NHANES] A nswer Date Recorded In a typical week, how many times do you talk on the phone with family, friends, or neighbors? Once a week 06/27/2020 How often do you get together with friends or re latives? Never 06/27/2020 How often do you attend islam or sabianist serv ices? Never 06/27/2020 Do [...] hard 06/27/2020 [facility] [place] [facility] - Occupational Stress Questionnaire Answer Date [...] your living situation today? [facility] place to live 11/05/2023 Education Answer [...] Encounter [facility] [place] [address] [place] [phone] Prakash Graham M.D. [address] [place] [phone] 04/27/2024 11:45 AM CDT - 04/27/2024 2:42 PM CDT Surgery [facility] [place] [address] [place] [phone] Prakash Graham M.D. [address] [place] [phone] VITRECTOMY - PARS PLANA 25 GAUGE / MEMBRANE PEEL / SILICONE OIL / SCLERAL BUCKLE AND ALL ASSOCIATED PROCEDURES RIGHT EYE 04/28/2024 8:00 AM CDT Office Visit Department of Ophthalmology in [place], [place] [address] [place] [phone] Prakash Graham M.D. [address] [place] [phone] 05/05/2024 1:15 PM CDT Ancillary Procedure Department of Ophthalmology in [place], [place] [address] [place] [phone] Prakash Graham M.D. [address] [place] [phone] 05/05/2024 1:45 PM CDT Office Visit Department of Ophthalmology in [place], [place] [address] [place] [phone] Prakash Graham M.D. [address] [place] [phone] 06/02/2024 8:15 AM CDT Ancillary Procedure Department of Ophthalmology in [place], [place] [address] [place] [phone] Prakash Graham M.D. [address] [place] [phone] 06/02/2024 8:45 AM CDT Ancillary Procedure Department of Ophthalmology in [place], [place] [address] [place] [phone] Prakash Graham M.D. [address] [place] [phone] 06/02/2024 9:00 AM CDT Office Visit Department of Ophthalmology in [place], [place] [address] [place] [phone] Prakash Graham M.D. [address] [place] [phone] Scheduled Procedures Name Priority Associated Diagnoses Date/Ti [...] Right documented in this encounter Care Teams Gravel Weigher Relationship Specialty Start Date End Date Elsewhere, Pcp PCP - General Internal Medicine 05/29/19 documented as of this encounter
--- NOTE | 2024-04-22 08:15 | CRLHL7_ITS ---
For Patients: As a result of the Century Cures Act, medical imaging exams and procedure reports are released immediately into your electronic medical record. You may view this report before your referring provider. If you have questions, please contact your health care provider. BILATERAL SCREENING MAMMOGRAM WITH COMPUTER-AIDED DETECTION AND TOMOSYNTHESIS TECHNIQUE: CC and MLO views were obtained. These mammographic images have been obtained using full-field digital technique. These mammographic images were interpreted with the benefit of computer-aided detection. Breast Tomosynthesis was used in this interpretation. COMPARISON FILM: 08/17/22, 04/23/22, 01/16/21. FINDINGS: There are scattered areas of fibroglandular density. IMPRESSION: There is no radiographic evidence for malignancy. ASSESSMENT: BI-RADS Category 2: Benign RECOMMENDATION: Routine screening mammogram in 1 year. A lay language report of this examination will be provided to the patient. Easton Salazar M.D. Diagnostic Radiologist [email or web address] SP/Dictated by: Easton Salazar MD @ 04/28/2024 11:07:00 AM (Electronically Signed)
== END 2024-04-22 08:04 | disposition home or self-care (01) ==
LOC: MAMMO 08:04
PROVIDERS: PCP Family Medicine; Visit Provider Family Medicine
DX: Z12.31 Encounter for screening mammogram for malignant neoplasm of breast (principal)
CPT/HCPCS: 77063; 77067

== ENCOUNTER 2024-04-24 08:22 | Observation (INO) | payer MEDICARE, SELFPAY ==
[2024-04-24] VITALS (39 sets, daily range): BP systolic 128–201; BP diastolic 64–111; PULSE 55–108; RESP 12–22; TEMP 36.6–36.9; O2SAT 87–96; BMI 30.7
--- NOTE | 2024-04-24 08:28 | ED.GENADULT ---
HPI - General Adult General Chief complaint: Headache/Migraine Stated complaint: trouble seeing, headache, vomiting Time Seen by Provider: 04/24/24 08:28 History of Present Illness HPI narrative: woke this morning with headache, vision changes i.e. color changes, and vomiting. has not taken BP meds today 68-year-old woman presenting to the emergency department with concern of headache. Seems to be behind her head at the upper neck and also in her forehead. She is having some blurriness of vision in the left eye; not a loss of visual field. 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 Last night was rather restless in and out of sleep a lot. At some point developed a headache. She is not sure when it started but it was present upon waking. She was increasingly nauseated over the course of the night with vomiting. Diarrhea also started this morning. Briefly during the night thinks she had some chest discomfort not present now. She is not short of breath. No focal weaknesses or sensory loss other than the vision is noted. Is also having some upper abdominal discomfort. Was diaphoretic overnight but did not measure fever. During exam I note her to be in a rapid heart rate with an irregularly irregular rhythm. She seems to acknowledge some AFib but denies being on anticoagulation. Review of records shows history of frequent PVCs but no diagnosis of atrial fibrillation. Related Data Home Medications ?Medication ?Instructions ?Recorded ?Confirmed aspirin 81 mg tablet,delayed 81 mg PO DAILY 04/26/22 04/24/24 release fexofenadine 180 mg tablet 180 mg PO DAILY 01/23/23 04/24/24 (Rosangela Allergy) ascorbic acid (vitamin C) 500 mg 500 mg PO DAILY 01/17/24 04/24/24 chewable tablet difluprednate 0.05 % eye drops 1 drp ophthalmic (eye) BID 01/17/24 04/24/24 glycerin 0.5 % eye drops (Biotrue 1 drp ophthalmic (eye) TID 01/17/24 04/24/24 Hydration Boost) valacyclovir 1 gram tablet 1,000 mg PO TID 01/17/24 04/24/24 amlodipine 5 mg tablet 5 mg PO DAILY 03/05/24 04/24/24 lisinopril 20 mg tablet 20 mg PO DAILY 03/05/24 04/24/24 metformin 1,000 mg tablet 1,000 mg PO DAILY 03/05/24 04/24/24 fluticasone propionate 50 1 spray intranasal DAILY PRN 04/07/24 04/24/24 mcg/actuation nasal spray,suspension umeclidinium 62.5 mcg-vilanterol 1 inh inhalation DAILY 04/07/24 04/24/24 25 mcg/actuation powdr for inhalation (Anoro Ellipta) Previous Rx's ?Medication ?Instructions ?Recorded nitroglycerin 0.4 mg sublingual 0.4 mg sublingual Q5-15M PRN chest 06/10/23 tablet pain #30 tabs albuterol sulfate 2.5 mg/3 mL 2.5 mg (3 mL) inhalation Q4H PRN 01/17/24 (0.083 %) solution for nebulization bronchospasm #90 mL albuterol sulfate 90 mcg/actuation 2 puff inhalation Q4H PRN 01/17/24 aerosol inhaler shortness of breath or wheezing #25.5 grams atorvastatin 40 mg tablet 40 mg PO HS #90 tabs 01/23/24 metoprolol succinate 100 mg 100 mg PO DAILY #90 tabs 01/23/24 tablet,extended release 24 hr Allergies Allergy/AdvReac Type Severity Reaction Status Date / Time methotrexate Allergy Intermediate Verified 04/07/24 08:05 Review of Systems Status of ROS: Reports: 6 or more systems reviewed and unremarkable except as noted in History and below [facility] Medical History PRES (posterior reversible encephalopathy syndrome) (12/2023) ?I67.83 - Posterior reversible encephalopathy syndrome (ICD-10) Hypertension ?I10 - Essential (primary) hypertension (ICD-10) Hypomagnesemia ?E83.42 - Hypomagnesemia (ICD-10) Weight loss, abnormal ?R63.4 - Abnormal weight loss (ICD-10) Elevated LFTs ?R79.89 - Other specified abnormal findings of blood chemistry (ICD-10) Acute interstitial pneumonitis (09/11/23) ?J84.114 - Acute interstitial pneumonitis (ICD-10) History of nuclear stress test (11/19/23) ?Z92.89 - Personal history of other medical treatment (ICD-10) Environmental allergies ?Z91.09 - Other allergy status, other than to drugs and biological substances (ICD-10) Hypercalcemia (08/30/23) ?E83.52 - Hypercalcemia (ICD-10) Respiratory failure ?J96.90 - Respiratory failure, unspecified, unspecified whether with hypoxia or hypercapnia (ICD-10) Dyslipidemia ?E78.5 - Hyperlipidemia, unspecified (ICD-10) Microalbuminuria due to type 2 diabetes mellitus ?E11.29 - Type 2 diabetes mellitus with other diabetic kidney complication (ICD-10) ?R80.9 - Proteinuria, unspecified (ICD-10) Lymphoma, small lymphocytic (2018) ?C83.00 - Small cell B-cell lymphoma, unspecified site (ICD-10) Type 2 diabetes mellitus ?E11.9 - Type 2 diabetes mellitus without complications (ICD-10) Chronic obstructive pulmonary disease (06/2020) ?J44.9 - Chronic obstructive pulmonary disease, unspecified (ICD-10) Diarrhea ?R19.7 - Diarrhea, unspecified (ICD-10) Bullous pemphigoid (~12/2022) ?L12.0 - Bullous pemphigoid (ICD-10) Splenomegaly (07/2022) ?R16.1 - Splenomegaly, not elsewhere classified (ICD-10) Elevated liver transaminase level ?R74.01 - Elevation of levels of liver transaminase levels (ICD-10) Ventricular bigeminy (2017) ?I49.8 - Other specified cardiac arrhythmias (ICD-10) History of bone density study (03/2023) ?Z92.89 - Personal history of other medical treatment (ICD-10) Vitamin D deficiency ?E55.9 - Vitamin D deficiency, unspecified (ICD-10) No retinopathy on exam (03/2021) ?Z01.00 - Encounter for examination of eyes and vision without abnormal findings (ICD-10) History of myocardial infarction (11/21/15) ?I25.2 - Old myocardial infarction (ICD-10) History of malignant neoplasm of skin ?Z85.828 - Personal history of other malignant neoplasm of skin (ICD-10) Frequent ventricular premature beats ?I49.3 - Ventricular premature depolarization (ICD-10) Coronary artery disease (2000) ?I25.10 - Atherosclerotic heart disease of [place] coronary artery without angina pectoris (ICD-10) Surgical History History of bronchoscopy (08/2023) ?Z98.890 - Other specified postprocedural states (ICD-10) History of four vessel coronary artery bypass graft (2000) ?Z95.1 - Presence of aortocoronary bypass graft (ICD-10) History of coronary artery stent placement (11/21/15) ?Z95.5 - Presence of coronary angioplasty implant and graft (ICD-10) Family History Father Stroke, Onset Age: 70 Prostate cancer Mother Diabetes Myocardial infarction, Onset Age: 65 Daughter Stroke, Onset Age: 36 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: , 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, 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 SMOKER: Tobacco abuse- 10/day, 32 pack years~ resolved 01/16 Does not exercise- active in garden and yard Social drinker- 2/week Past problems: Non-smoker- quit 2000, hx 30 pack years What is your current living situation?: I presently have a place to live Problems where you live: no known problems Problems where you live details: none In the past 12 months, utilities in danger of being shut off: no In past 12 months, lack of transportation kept you from medical appts, meetings, work, or getting things needed for daily living: no In the past 12 mos, have been you worried that your food would run out before you had money to buy more?: never true In the past 12 mos, the food you bought just didn't last and you didn't have money to buy more?: never true Highest level of school completed/degree received: high school graduate Smoking Status: Former smoker What tobacco products do you use: cigarettes Smoking quit date/years: <= 15 years ago Do you use any of these nicotine containing products: None Second hand tobacco smoke exposure: No How often do you have a drink containing alcohol: 2-4 times a month Alcohol type details: stopped alcohol 5 weeks ago How often do you have six or more drinks on one occasion: Less than monthly AUDIT-C Alcohol total score: 3 Non-prescribed substance use: denies use Caffeine: Yes How often does anyone, including family, friends and others, physically hurt you: never How often does anyone, including family, friends and others, insult or talk down to you: never How often does anyone, including family, friends and others, threaten you with harm: never How often does anyone, including family, friends and others, scream or curse at you: never Little interest or pleasure in doing things: not at all Feeling down, depressed, or hopeless: several days service: No Exam Narrative: Exam Narrative: Pleasant. Flatter affect. Seems a little distracted and generally uncomfortable. Diaphoretic. Has an emesis bag nearby. Skin otherwise without apparent rash. Lower extremities without edema. Lungs appear to be clear. Heart in rapid and irregularly irregular rhythm. Abdomen is overweight soft and a little tender in the epigastrium. Cranial nerves 2-12 look to be intact although has a dilated right pupil relative to the left. Accommodates but limited restriction to light. Left pupil responds appropriately. Right eye cornea perhaps looks a little hazy. Is sore to palpation the posterior neck. Const: Vital Signs, click to edit/add: Vital Signs - 24 hr 04/24/24 08:27 04/24/24 09:37 04/24/24 09:40 Temperature 98.5 F Pulse Rate 73 Pulse Rate [Right Pulse Oximeter] 57 L Respiratory Rate 18 Blood Pressure 166/71 H Blood Pressure [Ri ght Upper Arm] 197/111 H Pulse Oximetry 96 96 Oxygen Delivery Me thod Room Air Oxygen Flow Rate 04/24/24 09:43 04/24/24 09:45 04/24/24 09:46 Temperature Pulse Rate 92 108 H 108 H Pulse Rate [Right Pulse Oximeter] Respiratory Rate Blood Pressure 138/79 151/80 H Blood Pressure [Ri ght Upper Arm] Pulse Oximetry 93 93 94 Oxygen Delivery Me thod Oxygen Flow Rate 04/24/24 09:47 04/24/24 09:52 04/24/24 09:57 Temperature Pulse Rate 102 H 87 Pulse Rate [Right Pulse Oximeter] Respiratory Rate Blood Pressure 150/88 H 164/100 H Blood Pressure [Ri ght Upper Arm] Pulse Oximetry 93 90 Oxygen Delivery Me thod Oxygen Flow Rate 04/24/24 10:04 04/24/24 10:08 04/24/24 10:13 Temperature Pulse Rate 102 H 67 66 Pulse Rate [Right Pulse Oximeter] Respiratory Rate Blood Pressure 187/89 H 201/78 H Blood Pressure [Ri ght Upper Arm] Pulse Oximetry 90 91 88 Oxygen Delivery Me thod Oxygen Flow Rate 04/24/24 10:14 04/24/24 10:15 04/24/24 10:17 Temperature Pulse Rate 75 69 Pulse Rate [Right Pulse Oximeter] Respiratory Rate 22 Blood Pressure 198/97 H Blood Pressure [Ri ght Upper Arm] Pulse Oximetry 88 88 Oxygen Delivery Me thod Oxygen Flow Rate 04/24/24 10:30 04/24/24 10:33 04/24/24 10:45 Temperature Pulse Rate 83 55 L 76 Pulse Rate [Right Pulse Oximeter] Respiratory Rate Blood Pressure 170/100 H Blood Pressure [Ri ght Upper Arm] Pulse Oximetry 91 92 87 L Oxygen Delivery Me thod Oxygen Flow Rate 04/24/24 10:47 04/24/24 11:00 04/24/24 11:02 Temperature Pulse Rate 72 75 Pulse Rate [Right Pulse Oximeter] Respiratory Rate Blood Pressure 171/84 H 139/68 Blood Pressure [Ri ght Upper Arm] Pulse Oximetry 87 L 93 93 Oxygen Delivery Me thod Nasal Cannula Nasal Cannula Oxygen Flow Rate 0.5 0.5 04/24/24 11:16 04/24/24 11:32 04/24/24 11:46 Temperature Pulse Rate 71 80 70 Pulse Rate [Right Pulse Oximeter] Respiratory Rate 12 Blood Pressure 128/64 131/70 135/66 Blood Pressure [Ri ght Upper Arm] Pulse Oximetry 93 94 92 Oxygen Delivery Me thod Nasal Cannula Nasal Cannula Nasal Cannula Oxygen Flow Rate 0.5 0.5 0.5 04/24/24 12:29 04/24/24 12:30 04/24/24 12:41 Temperature Pulse Rate 71 70 78 Pulse Rate [Right Pulse Oximeter] Respiratory Rate Blood Pressure 139/75 Blood Pressure [Ri ght Upper Arm] Pulse Oximetry 93 93 93 Oxygen Delivery Me thod Nasal Cannula Nasal Cannula Nasal Cannula Oxygen Flow Rate 0.5 0.5 0.5 04/24/24 13:01 04/24/24 13:21 04/24/24 13:41 Temperature Pulse Rate 73 77 78 Pulse Rate [Right Pulse Oximeter] Respiratory Rate 12 Blood Pressure 138/66 144/72 H 148/71 H Blood Pressure [Ri ght Upper Arm] Pulse Oximetry 93 93 93 Oxygen Delivery Me thod Nasal Cannula Nasal Cannula Nasal Cannula Oxygen Flow Rate 0.5 0.5 0.5 Documenting provider has reviewed patient's vital signs: yes Course Vital Signs Vital signs: Initial Vital Signs Temperature 98.5 F 04/24/24 08:27 Temperature Source Oral 04/24/24 08:27 Pulse Rate 57 L 04/24/24 08:27 Respiratory Rate 18 04/24/24 08:27 Blood Pressure 197/111 H 04/24/24 08:27 Blood Pressure Mean 139 H 04/24/24 08:27 Blood Pressure Position Sitting 04/24/24 08:27 Pulse Oximetry 96 04/24/24 08:27 Oxygen Delivery Method Room Air 04/24/24 08:27 Vital Signs Temperature 98.5 F 04/24/24 08:27 Pulse Rate 57 L 04/24/24 08:27 Respiratory Rate 18 04/24/24 08:27 Blood Pressure 197/111 H 04/24/24 08:27 Pulse Oximetry 96 04/24/24 08:27 Oxygen Delivery Method Room Air 04/24/24 08:27 Temperature 98.5 F 04/24/24 08:27 Pulse Rate 78 04/24/24 13:41 Respiratory Rate 12 04/24/24 13:41 Blood Pressure 148/71 H 04/24/24 13:41 Pulse Oximetry 93 04/24/24 13:41 Oxygen Delivery Method Nasal Cannula 04/24/24 13:41 Oxygen Flow Rate 0.5 04/24/24 13:41 Medications Administered Medications: Discontinued Medications Generic Name Dose Route Start Last Admin Trade Name Freq PRN Reason Stop Dose Admin Amlodipine Besylate 5 mg 04/24/24 11:13 04/24/24 11:39 Amlodipine 5 Mg Tablet PO 04/24/24 11:14 5 mg DAILY ONE Administration Diltiazem HCl 20 mg 04/24/24 09:24 04/24/24 09:30 Diltiazem 5 Mg/Ml Inj IVP 04/24/24 09:25 20 mg ONCE ONE Administration Sodium Chloride 1,000 mls @ 1,000 mls/hr 04/24/24 08:45 04/24/24 10:34 0.9 % Sodium Chloride 1000 Ml IV 04/24/24 09:44 Infused .Q1H ONE Infusion Ketorolac Tromethamine 15 mg 04/24/24 08:45 04/24/24 09:28 Ketorolac 15 Mg/Ml Inj IVP 04/24/24 08:46 15 mg ONCE ONE Administration Labetalol HCl 5 mg 04/24/24 11:12 04/24/24 11:35 Labetalol Hcl 5 Mg/Ml Inj IVP 04/24/24 11:13 Not Given ONCE ONE Morphine Sulfate 4 mg 04/24/24 10:17 04/24/24 10:25 Morphine 4 Mg/Ml Inj IVP 04/24/24 10:18 4 mg ONCE ONE Administration Ondansetron HCl 4 mg 04/24/24 08:45 04/24/24 09:28 Ondansetron 2 Mg/Ml Inj IVP 04/24/24 08:46 4 mg ONCE ONE Administration Promethazine HCl 12.5 mg 04/24/24 09:42 04/24/24 10:34 Promethazine 25 Mg/Ml Inj IVP 04/24/24 09:43 12.5 mg ONCE ONE Administration Medical Decision Making MDM Narrative Medical decision making narrative: I would suspect a migrainous type headache affecting left eye vision. This is of indeterminate onset. Would screen for head bleed and treat for headache with re-evaluation. Certainly possible ischemic stroke event. Vomiting could certainly be related to the headache or even a stroke event; with diarrhea though otherwise. More likely infectious etiology. History of PRES Did request EKG and by my read looks to be in atrial fibrillation which on review of record would appear to be new onset. Will screen for ischemic cardiovascular event as well. EKG shows atrial fibrillation with RVR and a couple PVCs. Rate of 130. Initially noncontrast head CT as above and anticipating anticoagulation Reviewing records with stress test from October 2023; indication being PVCs. No wall motion abnormalities, EF of 52%. History of known coronary artery disease IV fluids were initiated. Since not anticoagulated was given some ketorolac and Zofran. Nausea now improved on reassessment. Diltiazem slowed rate and appears to still be in atrial fibrillation Now again with nausea and headache. Given low-dose morphine and promethazine --headache improved now 3/10 still with some abnormal blurriness of left vision. Monitor on ekg monitor tech appears to longer be in atrial fibrillation but with numerous PVCs. Repeat EKG with sinus rhythm and numerous PVCs and some PACs perhaps. Would like to see some improvement in headache and nausea and reassess for blurriness of vision at that point. May need to do further vascular studies of the head. History of PRES may partially explain current symptoms. Noncontrast head CT reviewed by me I do not appreciate any evidence of bleed Radiology over-read as below CT of the head without contrast. Coronal and sagittal reformats. Bone and soft tissue windows. Comparison: 01/08/2024 CT Findings: No acute intracranial hemorrhage or extra-axial collection. No evidence of acute cortical infarction. No mass effect or midline shift. Normal cerebral volume. The ventricles are normal in size, shape and contour. Symmetric regions of hypoattenuation in the bilateral occipital lobes with without mass effect. The orbital contents are normal. No calvarial fractures. No lytic or sclerotic osseous lesions within the calvarium or skull base. Scalp and other imaged soft tissue structures are normal. Mastoid air cells are clear. Small retention cyst in the left maxillary sinus with secretions. Leftward deviation of the nasal septum. Complete opacification of the left mastoid air cells. Impression: 1. Symmetric regions of hypoattenuation in the bilateral occipital lobes without mass effect. Differential considerations include artifact, chronic infarcts and PRES. Consider further evaluation with MRI. 2. Complete opacification of the left mastoid air cells. Please correlate for acute mastoiditis. 3. Small retention cyst in the left maxillary sinus with secretions. Discussed case with our hospitalist for potential admission. Admittedly numerous factors here. Will discuss yet with Neurology for further recommendations for disposition. Continue to monitor pressures closely. She had not taken her morning medications upon arrival here. Labetalol trial and given usual amlodipine On reassessment has not received labetalol but did give usual amlodipine. Pressures have improved prior to dosing the amlodipine. She is also later noticing some improvement of the vision in her left eye. CT imaging noting potential mastoiditis. She is not having pain here but examination of both ears shows middle ear effusion left greater than right. There are no inflammatory changes or tenderness to percussion of the mastoid. She has ever been feeling like her years blood for a long time. Reviewing prior CT imaging does show that fluid has been present. MRI as below does note middle ear effusion however; no bony erosion. After discussion with Neurology will be proceeding with MRI of the brain to evaluate for progression of PRES I did review MRI images. Deferring here to Neurology and Radiology. Neurology concerned for progression of PRES when compared to MRI images from December of this year. On the recommendations at this time are to control blood pressure. Would not appear to be needing a drip at this time. Did also discuss mastoiditis with ENT who at this point recommend antibiotics. INDICATION: Headache. TECHNIQUE: Multiplanar multisequence noncontrast MR images of the brain. COMPARISON: CT brain 04/24/2024. FINDINGS: Relatively symmetric, moderate subcortical predominant FLAIR hyperintensity within the occipital lobes. There is mild local mass effect. Small foci of susceptibility at the cortical-subcortical interface of the posterior occipital lobes, most compatible with petechial hemorrhage. Mild diffuse cerebral volume loss. No midline shift or hydrocephalus. Few punctate FLAIR hyperintensities in the supratentorial white matter, typical for minimal chronic microvascular ischemic changes. No pathologic extra-axial fluid collection. No diffusion restriction to suggest acute infarction. The major arterial flow voids at the skull base are preserved. The globes are symmetric. Moderate left maxillary sinus mucosal thickening. Large left and small to moderate right mastoid effusions. Signal abnormality in the left middle ear cavity. IMPRESSION: 1. Relatively symmetric, moderate subcortical predominant FLAIR hyperintensity within the occipital lobes, most compatible with sequelae of posterior reversible encephalopathy syndrome (PRES). There is mild associated petechial hemorrhage. 2. Mild diffuse cerebral volume loss and minimal chronic microvascular ischemic changes. 3. Large left mastoid effusion and signal abnormality in the left middle ear cavity. Discussed with hospitalist here for admission further monitoring. Decision will need to be made about treatment for what appears to be a paroxysmal atrial fibrillation as well. Medical Records Medical records reviewed: Yes I reviewed the patient's medical records Lab Data Labs: Lab Results 04/24/24 04/24/24 04/24/24 Range/Units 07:32 08:48 09:22 WBC 17.85 H (4.50-11.00) K/uL RBC 4.69 (4.00-5.20) m/uL Hgb 15.3 (12.0-16.0) gm/dL Hct 46.6 (33.0-51.0) % MCV 99 (80-100) fL MCH 33 (26-34) pg MCHC 33 (32-36) gm/dL RDW Coeff of Shabana 14.4 (11.5-15.5) % Plt Count 89 L (140-440) K/uL Neut % (Auto) 41.0 L (42.0-72.0) % Lymph % (Auto) 48.5 H (20-44) % [place] % (Auto) 7.5 (0.0-11.0) % Eos % (Auto) 1.7 (0.0-7.0) % Baso % (Auto) 0.3 (0.0-3.0) % Neut # (Auto) 7.30 H (1.7-7.0) K/uL Lymph # (Auto) 8.70 H (0.90-2.90) K/uL [place] # (Auto) 1.30 H (0.00-0.90) K/UL Eos # (Auto) 0.30 (0.00-0.50) K/uL Baso # (Auto) 0.10 (0.00-0.30) K/uL Abs Immat Gran (auto) 0.20 (0.00-0.30) K/uL Imm/Tot Granulo (auto) 1.0 % Diff Slide Review Acceptable Review (Acceptable) Sodium 138 (135-149) mmol/L Potassium 3.6 (3.6-5.1) mmol/L Chloride 102 (96-114) mmol/L Carbon Dioxide 27 (20-32) mmol/L Anion Gap 9 (7-15) mEq/L BUN 18 (7-30) mg/dL Creatinine 0.6 (0.5-1.5) mg/dL Estimated Creat Clear 51.81 Estimated GFR 99 ml/min Glucose 223 H (60-115) mg/dL Calcium 9.8 (8.4-10.6) mg/dL Magnesium 1.5 (1.5-2.6) mg/dL Troponin I < 0.01 L (0.01-0.04) ng/mL C-Reactive Protein 4.1 H (0.5-1.0) mg/dL NT-Pro-B Natriuret Pep 1150 pg/mL SARS-CoV-2 (PCR) Negative SARS-CoV-2 (Negative) Influenza Type A (PCR) Negative PCR FLU A (Negative) Influenza Type B (PCR) Negative PCR FLU B (Negative) POC Troponin I 0.01 (0.01-0.04) ng/ml ECG Data Attestation: I personally reviewed and interpreted this ECG as follows: (Initial EKG showing atrial fibrillation with RVR rate of 130. PVCs. 2. EKG after spontaneous conversion to a sinus rhythm with PVCs. Rate of 78 ) Critical Care Time Critical Care Time Critical Care Time: Yes Attestation: The patient required my highest level preparedness to intervene emergently and I personally spent this critical care time directly and personally managing the patient. This critical care time included: Obtaining a history; Examining the patient; Pulse oximetry; Ordering and reviewing of studies; Arranging urgent treatment with development of a management plan; Evaluation of patients response to treatment; Frequent reassessment discussions with other providers. This critical care time was performed to assess and manage the high probability of imminent life-threatening deterioration that could result in multiorgan failure. It was exclusive of separate billable procedures and treating other patients and teaching time. Total Critical Care Time in Minutes: 70 Discharge Plan Discharge Clinical Impression: Headache, Alteration in vision, PRES (posterior reversible encephalopathy syndrome), Gastroenteritis, Paroxysmal atrial fibrillation Patient Disposition: Admitted As Observation Condition: Improved Prescriptions: No Action ascorbic acid (vitamin C) 500 mg tablet,chewable 500 mg PO DAILY valacyclovir 1 gram tablet 1,000 mg PO TID difluprednate 0.05 % drops 1 drp ophthalmic (eye) BID Rx Instructions: start on Day 15 of therapy Biotrue Hydration Boost 0.5 % drops 1 drp ophthalmic (eye) TID albuterol sulfate 90 mcg/actuation HFA aerosol inhaler 2 puff inhalation Q4H PRN (Reason: shortness of breath or wheezing) Qty: 25.5 1RF albuterol sulfate 2.5 mg /3 mL (0.083 %) solution for nebulization 2.5 mg inhalation Q4H PRN (Reason: bronchospasm) Qty: 90 0RF aspirin 81 mg tablet,delayed release (DR/EC) 81 mg PO DAILY fexofenadine [Rosangela Allergy] 180 mg tablet 180 mg PO DAILY metoprolol succinate 100 mg tablet extended release 24 hr 100 mg PO DAILY Qty: 90 3RF atorvastatin 40 mg tablet 40 mg PO HS Qty: 90 3RF fluticasone propionate 50 mcg/actuation spray,suspension 1 spray intranasal DAILY PRN Rx Instructions: administer into each nostril Anoro Ellipta 62.5-25 mcg/actuation blister with device 1 inh inhalation DAILY lisinopril 20 mg tablet 20 mg PO DAILY amlodipine 5 mg tablet 5 mg PO DAILY metformin 1,000 mg tablet 1,000 mg PO DAILY nitroglycerin 0.4 mg tablet, sublingual 0.4 mg sublingual Q5-15M PRN (Reason: chest pain) Qty: 30 0RF Rx Instructions: PRN CHEST PAIN Follow Up/Referrals: Katerine Bashir MD [Primary Care Provider] -
--- OUTSIDE RECORDS SUMMARY | 2024-04-24 08:52 | XMS_ITS | Referral Summary ---
Author Organization [facility] Address [address] [place] [address] Care Team Providers Care Intelligence Clerk Name Role Phone Elsewhere, Pcp Primary Care Provider Unavailabl e Source Comments Patient records contain information from all sites at [facility]. For routine questions regarding patient records, call [phone] during business hours, M-F 8:00 AM - 5:00 PM Central Time. Record requests for emergency care only can be directed to [phone] at any time.[facility] Encounters Date Type Department Care Team Description 04/16/2024 12:05 AM CDT Ancillary Procedure Department of Ophthalmology 04/16/2024 Ancillary Procedure Department of Ophthalmology 04/16/2024 2:30 PM CDT Office Visit Department of Ophthalmology in [place], [place] [address] [place] [phone] Kenya Garza M.D. 04/16/2024 2:00 PM CDT Ancillary Procedure Department of Ophthalmology in [place], [place] [address] [place] [address] Kenya Garza M.D. Necrosis Retinal Acute Right 04/16/2024 1:00 PM CDT Ancillary Procedure Department of Ophthalmology in [place], [place] [address] [place] [address] Kenya Garza M.D. Necrosis Retinal Acute Right 04/14/2024 Ancillary Procedure Department of Ophthalmology 04/14/2024 2:30 PM CDT Office Visit Department of Ophthalmology in [place], [place] [address] [place] [address] Prakash Graham M.D. Panuveitis Right (Primary Dx); Proliferative Vitreoretinopathy Right 04/14/2024 2:10 PM CDT Ancillary Procedure Department of Ophthalmology in [place], [place] [address] [place] [phone] Prakash Graham M.D. Panuveitis Right; Necrosis Retinal Acute Right 04/14/2024 11:00 AM CDT Comprehensive Visit Preoperative Evaluation Center in [address] [phone] Prakash Graham M.D. Warner, Paul A, M.D. Panuveitis Right; Necrosis Retinal Acute Right 04/10/2024 Refill Department of Ophthalmology in [address] [phone] Kenya Garza M.D. Med Refill 04/01/2024 Refill Department of Ophthalmology in [address] [phone] Raffi Boyd M.D. Med Refill 03/16/2024 Orders Only Department of Ophthalmology in [place], [place] [address] [place] [phone] Shahnaz Amato, C.O.AWhitney Necrosis Retinal Acute Right (Primary Dx) 03/16/2024 Orders Only Department of Ophthalmology in [place], [place] [address] [place] [phone] Jean Claude Newsome C.OWhitneyAWhitney Panuveitis Right (Primary Dx); Necrosis Retinal Acute Right 03/14/2024 Orders Only Department of Ophthalmology in [place], [place] [address] [place] [phone] Raffi Boyd M.D. 03/13/2024 2:00 PM CDT Procedure visit Department of Ophthalmology in [address] [address] Prakash Graham M.D. Primary Hypotony Right Eye (Primary Dx); Panuveitis Right; Necrosis Retinal Acute Right 03/13/2024 1:00 PM CDT Office Visit Department of Ophthalmology in [place], [place] [address] [place] [phone] Prakash Graham M.D. Panuveitis Right (Primary Dx); Necrosis Retinal Acute Right 03/13/2024 Orders Only Department of Ophthalmology in [place], [place] [address] [place] [phone] Jean Claude Newsome C.O.A. Necrosis Retinal Acute Right (Primary Dx) 03/13/2024 12:10 AM CDT Ancillary Procedure Department of Ophthalmology 03/13/2024 12:05 AM CDT Ancillary Procedure Department of Ophthalmology 03/13/2024 Ancillary Procedure Department of Ophthalmology 03/13/2024 12:00 PM CDT Ancillary Procedure Department of Ophthalmology in [place], [place] [address] [place] [phone] Kenya Garza M.D. Panuveitis Right; Necrosis Retinal Acute Right 03/13/2024 11:30 AM CDT Office Visit Department of Ophthalmology in [address] [address] Kenya Garza M.D. Necrosis Retinal Acute Right (Primary Dx); Panuveitis Right 03/13/2024 8:00 AM CDT Ancillary Procedure Department of Ophthalmology in [address] [phone] Kenya Garza M.D. Panuveitis Right; Necrosis Retinal Acute Right 03/11/2024 Clinical Communication Department of Ophthalmology in [address] [phone] Kenya Garza M.D. 03/10/2024 Clinical Communication Department of Ophthalmology in [place], [place] [address] [place] [phone] Kenya Garza M.D. 02/25/2024 4:30 PM CDT Telemedicine Department of Neurology in [address] [phone] Piter Baez M.D. Posterior Reversible Encephalopathy Syndrome (Primary Dx) 02/20/2024 12:10 AM CDT Ancillary Procedure Department of Ophthalmology 02/20/2024 12:05 AM CDT Ancillary Procedure Department of Ophthalmology 02/20/2024 Ancillary Procedure Department of Ophthalmology 02/20/2024 3:05 PM CDT - 02/20/2024 11:59 PM CDT Hospital Encounter Department of Radiology, [facility] in [place], [place] [address] [place] [phone] Piter Baez M.D. Posterior Reversible Encephalopathy Syndrome Discharge Disposition: Home or Self Care 02/20/2024 1:00 PM CDT Comprehensive Visit Department of Neurology in [address] [address] Piter Baez M.D. Posterior Reversible Encephalopathy Syndrome 02/20/2024 11:15 AM CDT Office Visit Department of Ophthalmology in [address] [phone] Kenya Garza M.D. Panuveitis Right (Primary Dx); Necrosis Retinal Acute Right 02/20/2024 10:00 AM CDT Ancillary Procedure Department of Ophthalmology in [address] [address] Kenya Garza M.D. Panuveitis Right; Necrosis Retinal Acute Right 02/20/2024 9:50 AM CDT Ancillary Procedure Department of Ophthalmology in [address] [phone] Kenya Garza M.D. Panuveitis Right; Necrosis Retinal Acute Right 01/31/2024 Clinical Communication Department of Neurology in [address] [address] Piter Baez M.D. Pre-visit Testing Orders 01/23/2024 12:00 PM CDT Office Visit Department of Ophthalmology in [address] [address] Kenya Garza M.D. Panuveitis Right (Primary Dx); Necrosis Retinal Acute Right from Last 3 Months Allergies Active Allergy Reactions Criticality Noted Date Comments Aller Xt-[place] Blisters,Itching,Ra sh High 06/21/2020 Methotrexate Other (see [...] = 0.6 oz pur e alcohol) occasional [facility] Utilities Answer Date Recorded In the past 12 months has [employer] electric, gas, oil, or water company [...] How often do you attend catholic or temple serv ices? Never 06/27/2020 Do you belong [...] heating? Somewhat hard 06/27/2020 [facility] Occupat ional [facility] - Occupational Stress [...] 04/27/2024 11:45 AM CDT Hospital Encounter [facility] OR [address] [place] [phone] Prakash Graham M.D. [address] [place] [phone] 04/27/2024 11:45 AM CDT - 04/27/2024 2:42 PM CDT Surgery [facility] OR [address] [place] [phone] Prakash Graham M.D. [address] [place] [phone] VITRECTOMY, PARS PLANA 25 GAUGE, MEMBRANE PEEL, SILICONE OIL, SCLERAL BUCKLE, ALL ASSOCIATED PROCEDURES RIGHT EYE. 04/28/2024 8:00 AM CDT Office Visit Department of Ophthalmology in [place], [place] [address] [place] [phone] Prakash Graham M.D. [address] [place] [phone] 05/05/2024 1:15 PM CDT Ancillary Procedure Department of Ophthalmology in [place], [place] [address] [place] [phone] Prakash Graham M.D. [address] [place] [phone] 05/05/2024 1:45 PM CDT Office Visit Department of Ophthalmology in [place], [place] [address] [place] [phone] Prakash Graham M.D. [address] [place] [phone] 06/02/2024 8:15 AM CDT Ancillary Procedure Department of Ophthalmology in [place], [place] [address] [place] [phone] Prakash Graham M.D. [address] [place] [phone] 06/02/2024 8:45 AM CDT Ancillary Procedure Department of Ophthalmology in [place], [place] [address] [place] [phone] Prakash Graham M.D. [address] [place] [phone] 06/02/2024 9:00 AM CDT Office Visit Department of Ophthalmology in [place], [place] [address] [place] [phone] Prakash Graham M.D. [address] [place] [phone] Scheduled Procedures Name Priority Associated Diagnoses Date/Ti me VITRECTOMY - PARS PLANA 25 GAUGE Panuveitis Right Necrosis Retinal Acute Right 04/27/2024 11:45 AM CDT SCLERAL BUCKLING Panuveitis Right Necrosis Retinal Acute Right 04/27/2024 11:45 AM CDT Medical Devices Implanted Type Area Viticulturist Device Identifier Shelf Expiration Date Model / [...] ciliary body detachment noted, possible ciliochoroidal effusion. [facility] Kenya Garza M.D. OPHTH ULTRASOUND OPHTHALMOL [...] ciliary body detachment noted, possible ciliochoroidal effusion. [facility] Kenya Garza M.D. OPHTH ULTRASOUND Performing Organization Address [facility] de Phone Number OPHTHALMOLGY NON-IMAGING ORDERS [...] RAD IMAGI NG PROCEDURES Performing Organization Address [facility] de Phone Number [facility] NA * Optical Coherence Tomography - Macula/Retina - OU - Both Eyes (04/14/2024 2:22 PM CDT) Narrative OPHTHALMOLOGY IMAGING EXAM - 04/14/2024 4:40 PM CDT Right Eye OCT device used was Spectralis . Left Eye OCT device used was Spectralis . Notes See note from visit on 04/14/2024. Prakash Graham M.D. OPHTH TOMOGRAPHY Performing Organization Address [facility] de Phone Number OPHTHALMOLOGY IMAGING EXAM [...] System IMG NM PROCEDURES Performing Organization Address [facility] de Phone Number IIMS NA [...] 9 o'clock right eye Prakash Graham M.D. [facility] PROCED URES Performing Organization Address [facility] de Phone Number OPHTHALMOLGY NON-IMAGING [...] possible ciliochoroidal effusion. BriannaK Kenya Garza M.D. [facility] ULTRASOUND Performing Organization Address [facility] Co de Phone Number [facility] NON-IMAGING ORD[facility] * B-Scan Ultrasound - OD [...] Garza M.D. OPHTH TOMOGRAPHY Performing Organization Address City/[facility]/ZIP Co de Phone Number OPHTHALMOLOGY IMAGING EXAM [...] M.D. OPHTH ULTRASOUND Performing Organization Address [facility] Co de Phone Number OPHTHALMOL [...] Recently Relevant to Health Maintenance Care Teams Intelligence Clerk Relationship Specialty Start Date End Date Elsewhere, Pcp PCP - General Internal Medicine 05/29/19
--- OUTSIDE RECORDS SUMMARY | 2024-04-24 08:52 | XMS_ITS ---
Author Organization [facility] Address [address] [place] [address] Care Team Providers Care Manager Pmo Name Role Phone Unavailable Unavailable Unavailable Surgery Details Not on file Complications Check Surgery Details section. Procedure Estimated Blood Loss Check Surgery Details section. Procedure Findings Check Surgery Details section. Procedure Specimens Taken Check Surgery Details section.
--- OUTSIDE RECORDS SUMMARY | 2024-04-24 08:52 | XMS_ITS | Encounter Summary ---
Author Organization [facility] Address [address] [place] [address] Care Team Providers Care Lathmaker Name Role Phone Elsewhere, Pcp Primary Care [...] How often do you attend episcopalian or anglican serv ices? Never 06/27/2020 Do [...] medical care, and heating? Somewhat hard 06/27/2020 [facility] - Occupational [...] your living situation today? I have a [facility] live 11/05/2023 Education Answer [...] 04/27/2024 11:45 AM CDT Hospital Encounter [facility] [place] [phone] Prakash Graham M.D. [address] [place] [phone] 04/27/2024 11:45 AM CDT - 04/27/2024 2:42 PM CDT Surgery [facility] OR [address] [place] [phone] Prakash Graham M.D. [address] [place] [phone] VITRECTOMY, PARS PLANA 25 GAUGE, MEMBRANE PEEL, SILICONE OIL, SCLERAL BUCKLE, ALL ASSOCIATED PROCEDURES RIGHT EYE. 04/28/2024 8:00 AM CDT Office Visit Department of Ophthalmology in [address] [phone] Prakash Graham M.D. [address] [place] [phone] 05/05/2024 1:15 PM CDT Ancillary Procedure Department of Ophthalmology in [address] [phone] Prakash Graham M.D. [address] [place] [phone] 05/05/2024 1:45 PM CDT Office Visit Department of Ophthalmology in [place], [place] [address] [place] [phone] Prakash Graham M.D. [address] [place] [phone] 06/02/2024 8:15 AM CDT Ancillary Procedure Department of Ophthalmology in [place], [place] [address] [place] [phone] Prakash Graham M.D. [address] [place] [phone] 06/02/2024 8:45 AM CDT Ancillary Procedure Department of Ophthalmology in [place], [place] [address] [place] [phone] Prakash Graham M.D. [address] [place] [phone] 06/02/2024 9:00 AM CDT Office Visit Department of Ophthalmology in [place], [place] [address] [place] [phone] Prakash Graham M.D. [address] [place] [phone] Scheduled Procedures Name Priority Associated Diagnoses Date/Ti ct VITRECTOMY - PARS PLANA 25 GAUGE Panuveitis [...] on filedocumented in this encounter Care Teams Lathmaker Relationship Specialty Start Date End Date Elsewhere, Pcp PCP - General Internal Medicine 05/29/19 documented as of this encounter
--- OUTSIDE RECORDS SUMMARY | 2024-04-24 08:52 | XMS_ITS | Clinical Summary ---
Author Organization [facility] Address [address] [place] [address] Care Team Providers Care Therapist Rrt Name Role Phone Elsewhere, Pcp Primary Care Provider Unavailabl e Source Comments Patient records contain information from all sites at [facility]. For routine questions regarding patient records, call [phone] during business hours, M-F 8:00 AM - 5:00 PM Central Time. Record requests for emergency care only can be directed to [phone] at any time.[facility] Allergies Active Allergy Reactions Criticality Noted Date Comments Aller Xt-Flinton Pollen-Nile Blisters,Itching,Ra sh High 06/21/2020 Methotrexate Other (see [...] CDT Office Visit Department of Ophthalmology in [place], [place] [address] [place] [address] Kenya Garza M.D. 04/16/2024 2:00 PM CDT Ancillary Procedure Department of Ophthalmology in [place], [place] [address] [place] [address] Kenya Garza M.D. Necrosis Retinal Acute Right 04/16/2024 1:00 PM CDT Ancillary Procedure Department of Ophthalmology in [place], [place] [address] [place] [address] Kenya Garza M.D. Necrosis Retinal Acute Right 04/16/2024 12:05 AM CDT Ancillary Procedure Department of Ophthalmology 04/16/2024 Ancillary Procedure Department of Ophthalmology 04/14/2024 2:30 PM CDT Office Visit Department of Ophthalmology in [place], [place] [address] [place] [phone] Prakash Graham M.D. Panuveitis Right (Primary Dx); Proliferative Vitreoretinopathy Right 04/14/2024 2:10 PM CDT Ancillary Procedure Department of Ophthalmology in [place], [place] [address] [place] [phone] Prakash Graham M.D. Panuveitis Right; Necrosis Retinal Acute Right 04/14/2024 11:00 AM CDT Comprehensive Visit Preoperative Evaluation Center in [place], [place] [address] [place] [phone] Prakash Graham M.D. Warner, Paul A, M.D. Panuveitis Right; Necrosis Retinal Acute Right 04/14/2024 Ancillary Procedure Department of Ophthalmology 04/10/2024 Refill Department of Ophthalmology in [place], [place] [address] [place] [phone] Kenya Garza M.D. Med Refill 04/01/2024 Refill Department of Ophthalmology in [place], [place] [address] [place] [phone] Raffi Boyd M.D. Med Refill 03/16/2024 Orders Only Department of Ophthalmology in [address] [phone] Shahnaz Amato C.ODixie Necrosis Retinal Acute Right (Primary Dx) 03/16/2024 Orders Only Department of Ophthalmology in [place], [place] [address] [place] [phone] Jean Claude Newsome C.O.AWhitney Panuveitis Right (Primary Dx); Necrosis Retinal Acute Right 03/14/2024 Orders Only Department of Ophthalmology in [place], [place] [address] [place] [phone] Raffi Boyd M.D. 03/13/2024 2:00 PM CDT Procedure visit Department of Ophthalmology in [place], [place] [address] [place] [phone] Prakash Graham M.D. Primary Hypotony Right Eye (Primary Dx); Panuveitis Right; Necrosis Retinal Acute Right 03/13/2024 1:00 PM CDT Office Visit Department of Ophthalmology in [place], [place] [address] [place] [phone] Prakash Graham M.D. Panuveitis Right (Primary Dx); Necrosis Retinal Acute Right 03/13/2024 12:00 PM CDT Ancillary Procedure Department of Ophthalmology in [place], [place] [address] [place] [phone] Kenya Garza M.D. Panuveitis Right; Necrosis Retinal Acute Right 03/13/2024 11:30 AM CDT Office Visit Department of Ophthalmology in [place], [place] [address] [place] [phone] Kenya Garza M.D. Necrosis Retinal Acute Right (Primary Dx); Panuveitis Right 03/13/2024 8:00 AM CDT Ancillary Procedure Department of Ophthalmology in [place], [place] [address] [place] [phone] Kenya Garza M.D. Panuveitis Right; Necrosis Retinal Acute Right 03/13/2024 12:10 AM CDT Ancillary Procedure Department of Ophthalmology 03/13/2024 12:05 AM CDT Ancillary Procedure Department of Ophthalmology 03/13/2024 Orders Only Department of Ophthalmology in [place], [place] [address] [place] [phone] Jean Claude Newsome C.ODixie Necrosis Retinal Acute Right (Primary Dx) 03/13/2024 Ancillary Procedure Department of Ophthalmology 03/11/2024 Clinical Communication Department of Ophthalmology in [place], [place] [address] [place] [phone] Kenya Garza M.D. 03/10/2024 Clinical Communication Department of Ophthalmology in [place], [place] [address] [place] [phone] Kenya Garza M.D. 02/25/2024 4:30 PM CDT Telemedicine Department of Neurology in [place], [place] [address] [place] [phone] Piter Baez M.D. Posterior Reversible Encephalopathy Syndrome (Primary Dx) 02/20/2024 3:05 PM CDT - 02/20/2024 11:59 PM CDT Hospital Encounter Department of Radiology, [facility] in [place], [place] [address] [place] [phone] Piter Baez M.D. Posterior Reversible Encephalopathy Syndrome Discharge Disposition: Home or Self Care 02/20/2024 1:00 PM CDT Comprehensive Visit Department of Neurology in [place], [place] [address] [place] [phone] Piter Baez M.D. Posterior Reversible Encephalopathy Syndrome 02/20/2024 11:15 AM CDT Office Visit Department of Ophthalmology in [place], [place] [address] [place] [phone] Kenya Garza M.D. Panuveitis Right (Primary Dx); Necrosis Retinal Acute Right 02/20/2024 10:00 AM CDT Ancillary Procedure Department of Ophthalmology in [place], [place] [address] [place] [phone] Kenya Garza M.D. Panuveitis Right; Necrosis Retinal Acute Right 02/20/2024 9:50 AM CDT Ancillary Procedure Department of Ophthalmology in [place], [place] [address] [place] [phone] Kenya Garza M.D. Panuveitis Right; Necrosis Retinal Acute Right 02/20/2024 12:10 AM CDT Ancillary Procedure Department of Ophthalmology 02/20/2024 12:05 AM CDT Ancillary Procedure Department of Ophthalmology 02/20/2024 Ancillary Procedure Department of Ophthalmology 01/31/2024 Clinical Communication Department of Neurology in [place], [place] [address] [place] [address] Piter Baez M.D. Pre-visit Testing Orders 01/23/2024 12:00 PM CDT Office Visit Department of Ophthalmology in [place], [place] [address] [place] [address] Kenya Garza M.D. Panuveitis Right (Primary Dx); [...] = 0.6 oz pur e alcohol) occasional [employer] Utilities Answer Date Recorded In the past 12 months has [employer] electric, gas, oil, or water company threatened [...] How often do you attend tenriism or islam serv ices? Never 06/27/2020 Do [...] living situation today? I have a [facility] place to live 11/05/2023 Education Answer [...] 04/27/2024 11:45 AM CDT Hospital Encounter [facility] [place] [address] [place] [phone] Prakash Graham M.D. [address] [place] [phone] 04/27/2024 11:45 AM CDT - 04/27/2024 2:42 PM CDT Surgery [facility] [place] [phone] Prakash Graham M.D. [address] [place] [phone] VITRECTOMY, PARS PLANA 25 GAUGE, MEMBRANE PEEL, SILICONE OIL, SCLERAL BUCKLE, ALL ASSOCIATED PROCEDURES RIGHT EYE. 04/28/2024 8:00 AM CDT Office Visit Department of Ophthalmology in [place], [place] [address] [place] [phone] Prakash Graham M.D. [address] [place] [phone] 05/05/2024 1:15 PM CDT Ancillary Procedure Department of Ophthalmology in [place], [place] [address] [place] [phone] Prakash Graham M.D. [address] [place] [phone] 05/05/2024 1:45 PM CDT Office Visit Department of Ophthalmology in [place], [place] [address] [place] [phone] Prakash Graham M.D. [address] [place] [phone] 06/02/2024 8:15 AM CDT Ancillary Procedure Department of Ophthalmology in [place], [place] [address] [place] [phone] Prakash Graham M.D. [address] [place] [phone] 06/02/2024 8:45 AM CDT Ancillary Procedure Department of Ophthalmology in [place], [place] [address] [place] [phone] Prakash Graham M.D. [address] [place] [phone] 06/02/2024 9:00 AM CDT Office Visit Department of Ophthalmology in [place], [place] [address] [place] [phone] Prakash Graham M.D. [address] [place] [phone] Scheduled Procedures Name Priority Associated Diagnoses Date/Ti [...] this topic Medical Devices Implanted Type Area Computer Systems Manager Device Identifier Shelf Expiration Date Model / [...] ciliary body detachment noted, possible ciliochoroidal effusion. [facility] Kenya Garza M.D. OPHTH ULTRASOUND OPHTHALMOLGY NON-IMAGING [...] ciliary body detachment noted, possible ciliochoroidal effusion. [facility] Kenya Garza M.D. OPHTH ULTRASOUND Performing Organization Address [facility] Co de Phone Number OPHTHALMOLGY [...] RAD IMAGI NG PROCEDURES Performing Organization Address [facility] de Phone Number IIMS NA * Optical Coherence Tomography - Macula/Retina - OU - Both Eyes (04/14/2024 2:22 PM CDT) Narrative OPHTHALMOLOGY IMAGING EXAM - 04/14/2024 4:40 PM CDT Right Eye OCT device used was Spectralis . Left Eye OCT device used was Spectralis . Notes See note from visit on 04/14/2024. Prakash Graham M.D. OPHTH TOMOGRAPHY Performing Organization Address [facility] Co de Phone Number OPHTHALMOLOGY IMAGING [...] System IMG NM PROCEDURES Performing Organization Address [facility] Phone Number IIMS NA * Cyclophotocoagulation, Transscleral [...] 9 o'clock right eye Prakash Graham M.D. [facility]IC PROCED URES Performing Organization Address [facility] de Phone Number OPHTHALMOL NON-IMAGING ORDERS [...] possible ciliochoroidal effusion. ZK Kenya Garza M.D. [facility] ULTRASOUND Performing Organization Address [facility] de Phone Number [facility]DERS * B-Scan Ultrasound - [...] Garza M.D. OPHTH TOMOGRAPHY Performing Organization Address [facility] Co de Phone Number OPHTHALMOLOGY IMAGING [...] Garza M.D. OPHTH ULTRASOUND Performing Organization Address [facility] Co de Phone Number OPHTHALMOLGY NON-IMAGING ORDERS * CT Chest with [...] Recently Relevant to Health Maintenance Care Teams Therapist Rrt Relationship Specialty Start Date End Date Elsewhere, Pcp PCP - General Internal Medicine 05/29/19
--- OUTSIDE RECORDS SUMMARY | 2024-04-24 08:52 | XMS_ITS | Encounter Summary ---
Author Organization [facility] Address [address] [place] [address] Care Team Providers Care Bail Attacher Name Role Phone Elsewhere, Pcp Primary Care [...] Recorded In the past 12 months has [employer] electric, gas, oil, or water company threatened [...] How often do you attend yazdanism or restorationism serv ices? Never 06/27/2020 Do [...] Somewhat hard 06/27/2020 [facility] - Occupational Stress Questionnaire [...] 04/27/2024 11:45 AM CDT Hospital Encounter [facility] [place] [phone] Prakash Graham M.D. [address] [place] [phone] 04/27/2024 11:45 AM CDT - 04/27/2024 2:42 PM CDT Surgery [facility] OR [address] [place] [phone] Prakash Graham M.D. [address] [place] [phone] VITRECTOMY, PARS PLANA 25 GAUGE, MEMBRANE PEEL, SILICONE OIL, SCLERAL BUCKLE, ALL ASSOCIATED PROCEDURES RIGHT EYE. 04/28/2024 8:00 AM CDT Office Visit Department of Ophthalmology in [address] [phone] Prakash Graham M.D. [address] [place] [phone] 05/05/2024 1:15 PM CDT Ancillary Procedure Department of Ophthalmology in [place], [place] [address] [place] [phone] Prakash Graham M.D. [address] [place] [phone] 05/05/2024 1:45 PM CDT Office Visit Department of Ophthalmology in [place], [place] [address] [place] [phone] Prakash Graham M.D. [address] [place] [phone] 06/02/2024 8:15 AM CDT Ancillary Procedure Department of Ophthalmology in [place], [place] [address] [place] [phone] Prakash Graham M.D. [address] [place] [phone] 06/02/2024 8:45 AM CDT Ancillary Procedure Department of Ophthalmology in [place], [place] [address] [place] [phone] Prakash Graham M.D. [address] [place] [phone] 06/02/2024 9:00 AM CDT Office Visit Department of Ophthalmology in [place], [place] [address] [place] [phone] Prakash Graham M.D. [address] [place] [phone] Scheduled Procedures Name Priority Associated Diagnoses Date/Ti [...] in this encounter Results * Eyes US-Eye F-Ntyl-Ahyfnqzowqapt Image Exam (04/16/2024 12:00 AM CDT) Narrative [...] on filedocumented in this encounter Care Teams Bail Attacher Relationship Specialty Start Date End Date Elsewhere, Pcp PCP - General Internal Medicine 05/29/19 documented as of this encounter
--- OUTSIDE RECORDS SUMMARY | 2024-04-24 08:52 | XMS_ITS | Encounter Summary ---
Author Organization [facility] Address [address] [place] [address] Care Team Providers Care Prescriptionist Name Role Phone Elsewhere, Pcp Primary Care Provider Unavailabl e Encounter Details Date Type Department Care Team (Latest Contact Info) Description 04/16/2024 2:00 PM CDT Ancillary Procedure Department of Ophthalmology in [place], [place] [address] [place] [address] Kenya Garza M.D. [address] [place] [address] Necrosis Retinal Acute Right Social History Tobacco Use Types Packs/Day Years Used Date Smoking Tobacco: Former Cigarettes 0.7 70.4 0 03/28/1975 - 01/09/2022 Smokeless Tobacco: Never Comments:On again off again Alcohol Use Standard Drinks/Week Comments Yes 5 (1 standard drink = 0.6 oz pur e alcohol) occasional [facility] Utilities Answer Date Recorded In the past 12 months has [employer], gas, oil, or water [employer] threatened to shut off services in your home? No 11/05/2023 Social Connection and Isolation Panel [NHANES] A nswer Date Recorded In a typical week, how many times do you talk on the phone with family, friends, or neighbors? Once a week 06/27/2020 How often do you get together with friends or re latives? Never 06/27/2020 How often do you attend zoroastrianism or oriental orthodox serv ices? Never 06/27/2020 [...] 06/27/2020 [facility] - [...] Hospital Encounter [facility] OR [address] [place] [phone] Prakash Graham M.D. [address] [place] [phone] 04/27/2024 11:45 AM CDT - 04/27/2024 2:42 PM CDT Surgery [facility] OR [address] [place] [phone] Prakash Graham M.D. [address] [place] [phone] VITRECTOMY, PARS PLANA 25 GAUGE, MEMBRANE PEEL, SILICONE OIL, SCLERAL BUCKLE, ALL ASSOCIATED PROCEDURES RIGHT EYE. 04/28/2024 8:00 AM CDT Office Visit Department of Ophthalmology in [place], [place] [address] [place] [phone] Prakash Graham M.D. [address] [place] [phone] 05/05/2024 1:15 PM CDT Ancillary Procedure Department of Ophthalmology in [place], [place] [address] [place] [phone] Prakash Graham M.D. [address] [place] [phone] 05/05/2024 1:45 PM CDT Office Visit Department of Ophthalmology in [place], [place] [address] [place] [phone] Prakash Graham M.D. [address] [place] [phone] 06/02/2024 8:15 AM CDT Ancillary Procedure Department of Ophthalmology in [place], [place] [address] [place] [phone] Prakash Graham M.D. [address] [place] [phone] 06/02/2024 8:45 AM CDT Ancillary Procedure Department of Ophthalmology in [place], [place] [address] [place] [phone] Prakash Graham M.D. [address] [place] [phone] 06/02/2024 9:00 AM CDT Office Visit Department of Ophthalmology in [place], [place] [address] [place] [phone] Prakash Graham M.D. [address] [place] [phone] Scheduled Procedures Name Priority Associated Diagnoses Date/Ti [...] ciliary body detachment noted, possible ciliochoroidal effusion. [facility] Kenya Garza M.D. 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
--- OUTSIDE RECORDS SUMMARY | 2024-04-24 08:52 | XMS_ITS | Encounter Summary ---
Author Organization [facility] Address [address] [place] [address] Care Team Providers Care Automobile Spring Repairer Name Role Phone Elsewhere, Pcp Primary Care Provider Unavailabl e Encounter Details Date Type Department Care Team (Latest Contact Info) Description 04/16/2024 1:00 PM CDT Ancillary Procedure Department of Ophthalmology in [place], [place] [address] [place] [address] Kenya Garza M.D. [address] [place] [address] Necrosis Retinal Acute Right Social History Tobacco Use Types Packs/Day Years Used Date Smoking Tobacco: Former Cigarettes 0.7 70.4 0 03/28/1975 - 01/09/2022 Smokeless Tobacco: Never Comments:On again off again Alcohol Use Standard Drinks/Week Comments Yes 5 (1 standard drink = 0.6 oz pur e alcohol) occasional [facility] Utilities Answer Date Recorded In the past 12 months has [employer], gas, oil, or water [employer] threatened to shut off services in your home? No 11/05/2023 Social Connection and Isolation Panel [NHANES] A nswer Date Recorded In a typical week, how many times do you talk on the phone with family, friends, or neighbors? Once a week 06/27/2020 How often do you get together with friends or re latives? Never 06/27/2020 How often do you attend shinto or hindu serv ices? Never 06/27/2020 Do [...] living situation today? I have a [facility] place to live 11/05/2023 Education [...] 04/27/2024 11:45 AM CDT Hospital Encounter [facility] OR [address] [place] [phone] Prakash Graham M.D. [address] [place] [phone] 04/27/2024 11:45 AM CDT - 04/27/2024 2:42 PM CDT Surgery [facility] OR [address] [place] [phone] Prakash Graham M.D. [address] [place] [phone] VITRECTOMY, PARS PLANA 25 GAUGE, MEMBRANE PEEL, SILICONE OIL, SCLERAL BUCKLE, ALL ASSOCIATED PROCEDURES RIGHT EYE. 04/28/2024 8:00 AM CDT Office Visit Department of Ophthalmology in [place], [place] [address] [place] [phone] Prakash Graham M.D. [address] [place] [phone] 05/05/2024 1:15 PM CDT Ancillary Procedure Department of Ophthalmology in [place], [place] [address] [place] [phone] Prakash Graham M.D. [address] [place] [phone] 05/05/2024 1:45 PM CDT Office Visit Department of Ophthalmology in [place], [place] [address] [place] [phone] Prakash Graham M.D. [address] [place] [phone] 06/02/2024 8:15 AM CDT Ancillary Procedure Department of Ophthalmology in [place], [place] [address] [place] [phone] Prakash Graham M.D. [address] [place] [phone] 06/02/2024 8:45 AM CDT Ancillary Procedure Department of Ophthalmology in [place], [place] [address] [place] [phone] Prakash Graham M.D. [address] [place] [phone] 06/02/2024 9:00 AM CDT Office Visit Department of Ophthalmology in [place], [place] [address] [place] [phone] Prakash Graham M.D. [address] [place] [phone] Scheduled Procedures Name Priority Associated Diagnoses Date/Ti [...] ciliary body detachment noted, possible ciliochoroidal effusion. [facility] Kenya Garza M.D. 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
--- OUTSIDE RECORDS SUMMARY | 2024-04-24 08:52 | XMS_ITS | Encounter Summary ---
[facility] Address [address] [place] [address] Care Team Providers Care Manager Bakery Name Role Phone Elsewhere, Pcp Primary Care Provider Unavailabl e Reason for Referral * Outpatient (Routine) - Authorized Specialty Diagnoses / Procedures Referred By Apolinar lopez Referred To Contact Ophthalmology Kenya Garza M.D. [address] [place] [address] [facility] Referral ID Status Reason Start Date Expiration Date V isits Requested Visits Authorized [id number] Authorized 04/16/2024 10/16/2025 1 1 Scheduling Instructions I will see her on the same day as one of the post-op visits. (Probably the one after early May.) Reason for Visit * Reason Comments Follow-up * Outpatient (Routine) - Closed Specialty Diagnoses / Procedures Referred By Apolinar lopez Referred To Contact Ophthalmology Diagnoses Necrosis Retinal Acute Right Kenya Garza M.D. [address] [place] [address] [facility] Referral ID Status Reason Start Date Expiration Date Visits Re quested Visits Authorized [id number] Closed 03/13/2024 09/12/2025 1 1 Encounter Details Date Type Department Care Team (Late st Contact Info) Description 04/16/2024 2:30 PM CDT Office Visit Department of Ophthalmology in [place], [place] [address] [place] [phone] Kenya Garza M.D. [address] [place] [phone] Social History Tobacco Use Types Packs/Day Years Used Date Smoking Tobacco: Former Cigarettes 0.7 70.4 0 03/28/1975 - 01/09/2022 Smokeless Tobacco: Never Comments:On again off again Alcohol Use Standard Drinks/Week Comments Yes 5 (1 standard drink = 0.6 oz pur e alcohol) occasional [facility] Utilities Answer Date Recorded In the past 12 months has th e electric, gas, oil, or water [employer] threatened to shut off services in your home? No 11/05/2023 Social Connection and Isolation Panel [NHANES] A nswer Date Recorded In a typical week, how many times do you talk on the phone with family, friends, or neighbors? Once a week 06/27/2020 How often do you get together with friends or re latives? Never 06/27/2020 How often do you attend jehovah's witness or bahai serv ices? Never 06/27/2020 Do [...] and heating? Somewhat hard 06/27/2020 [facility] of Occupat ional Health - Occupational Stress [...] Encounter [facility] OR [address] [place] [address] Prakash Graham M.D. [address] [place] [address] 04/27/2024 11:45 AM CDT - 04/27/2024 2:42 PM CDT Surgery [facility] OR [address] [place] [phone] Prakash Graham M.D. [address] [place] [phone] VITRECTOMY, PARS PLANA 25 GAUGE, MEMBRANE PEEL, SILICONE OIL, SCLERAL BUCKLE, ALL ASSOCIATED PROCEDURES RIGHT EYE. 04/28/2024 8:00 AM CDT Office Visit Department of Ophthalmology in [place], [place] [address] [place] [phone] Prakash Graham M.D. [address] [place] [phone] 05/05/2024 1:15 PM CDT Ancillary Procedure Department of Ophthalmology in [place], [place] [address] [place] [phone] Prakash Graham M.D. [address] [place] [phone] 05/05/2024 1:45 PM CDT Office Visit Department of Ophthalmology in [address] [phone] Prakash Graham M.D. [address] [place] [phone] 06/02/2024 8:15 AM CDT Ancillary Procedure Department of Ophthalmology in [place], [place] [address] [place] [phone] Prakash Graham M.D. [address] [place] [phone] 06/02/2024 8:45 AM CDT Ancillary Procedure Department of Ophthalmology in [place], [place] [address] [place] [address] Prakash Graham M.D. [address] [place] [address] 06/02/2024 9:00 AM CDT Office Visit Department of Ophthalmology in [place], [place] [address] [place] [address] Prakash Graham M.D. [address] [place] [phone] Scheduled Procedures Name Priority Associated Diagnoses Date/Ti [...] filedocumented in this encounter Care Teams Manager Bakery Relationship Specialty Start Date End Date Elsewhere, Pcp PCP - General Internal Medicine 05/29/19 documented as of this encounter
--- OUTSIDE RECORDS SUMMARY | 2024-04-24 08:53 | XMS_ITS | Encounter Summary ---
Author Organization [facility] Address [address] [place] [address] Care Team Providers Care Manager Bakery Name Role Phone Elsewhere, Pcp Primary Care Provider Unavailabl e Encounter Details Date Type Department Care Team (Latest Contact Info) Description 04/14/2024 2:10 PM CDT Ancillary Procedure Department of Ophthalmology in [place], [place] [address] [place] [address] Prakash Graham M.D. [address] [place] [address] Panuveitis Right; Necrosis Retinal Acute Right Social History Tobacco Use Types Packs/Day Years Used Date Smoking Tobacco: Former Cigarettes 0.7 70.4 0 03/28/1975 - 01/09/2022 Smokeless Tobacco: Never Comments:On again off again Alcohol Use Standard Drinks/Week Comments Yes 5 (1 standard drink = 0.6 oz pur e alcohol) occasional [facility] Utilities Answer Date Recorded In the past 12 months has [employer], gas, oil, or water Outcome Referrals threatened to shut off services in your home? No 11/05/2023 Social Connection and Isolation Panel [NHANES] A nswer Date Recorded In a typical week, how many times do you talk on the phone with family, friends, or neighbors? Once a week 06/27/2020 How often do you get together with friends or re latives? Never 06/27/2020 How often do you attend worship or zoroastrian serv ices? Never 06/27/2020 Do [...] [facility] [place] [address] [place] [phone] Prakash Graham M.D. [address] [place] [phone] 04/27/2024 11:45 AM CDT - 04/27/2024 2:42 PM CDT Surgery [facility] OR [address] [place] [phone] Prakash Graham M.D. [address] [place] [phone] VITRECTOMY, PARS PLANA 25 GAUGE, MEMBRANE PEEL, SILICONE OIL, SCLERAL BUCKLE, ALL ASSOCIATED PROCEDURES RIGHT EYE. 04/28/2024 8:00 AM CDT Office Visit Department of Ophthalmology in [place], [place] [address] [place] [phone] Prakash Graham M.D. [address] [place] [phone] 05/05/2024 1:15 PM CDT Ancillary Procedure Department of Ophthalmology in [place], [place] [address] [place] [phone] Prakash Graham M.D. [address] [place] [phone] 05/05/2024 1:45 PM CDT Office Visit Department of Ophthalmology in [place], [place] [address] [place] [phone] Prakash Graham M.D. [address] [place] [phone] 06/02/2024 8:15 AM CDT Ancillary Procedure Department of Ophthalmology in [place], [place] [address] [place] [phone] Prakash Graham M.D. [address] [place] [phone] 06/02/2024 8:45 AM CDT Ancillary Procedure Department of Ophthalmology in [place], [place] [address] [place] [phone] Prakash Graham M.D. [address] [place] [phone] 06/02/2024 9:00 AM CDT Office Visit Department of Ophthalmology in [place], [place] [address] [place] [phone] Prakash Graham M.D. [address] [place] [phone] Scheduled Procedures Name Priority Associated Diagnoses Date/Ti [...] documented in this encounter Care Teams Manager Bakery Relationship Specialty Start Date End Date Elsewhere, Pcp PCP - General Internal Medicine 05/29/19 documented as of this encounter
--- OUTSIDE RECORDS SUMMARY | 2024-04-24 08:53 | XMS_ITS | Encounter Summary ---
Author Organization [facility] Address [address] [place] [address] Care Team Providers Care Inspector Eyeglass Name Role Phone Elsewhere, Pcp Primary Care [...] Recorded In the past 12 months has [employer] electric, gas, oil, or water company threatened [...] How often do you attend baptism or hindu serv ices? Never 06/27/2020 Do [...] Somewhat hard 06/27/2020 [facility] - Occupational Stress Questionnaire Answer Date [...] Encounter [facility]ST [facility] OR [facility] [address] [place] [phone] Prakash Graham M.D. [address] [place] [phone] 04/27/2024 11:45 AM CDT - 04/27/2024 2:[address] [facility] [facility] OR [address] [place] [phone] Prakash Graham M.D. [address] [place] [phone] VITRECTOMY, PARS PLANA 25 GAUGE, MEMBRANE PEEL, SILICONE OIL, SCLERAL BUCKLE, ALL ASSOCIATED PROCEDURES RIGHT EYE. 04/28/2024 8:00 AM CDT Office Visit Department of Ophthalmology in [address] [phone] Prakash Graham M.D. [address] [place] [phone] 05/05/2024 1:15 PM CDT Ancillary Procedure Department of Ophthalmology in [place], [place] [address] [place] [phone] Prakash Graham M.D. [address] [place] [phone] 05/05/2024 1:45 PM CDT Office Visit Department of Ophthalmology in [place], [place] [address] [place] [phone] Prakash Graham M.D. [address] [place] [phone] 06/02/2024 8:15 AM CDT Ancillary Procedure Department of Ophthalmology in [place], [place] [address] [place] [phone] Prakash Graham M.D. [address] [place] [phone] 06/02/2024 8:45 AM CDT Ancillary Procedure Department of Ophthalmology in [place], [place] [address] [place] [phone] Prakash Graham M.D. [address] [place] [phone] 06/02/2024 9:00 AM CDT Office Visit Department of Ophthalmology in [place], [place] [address] [place] [phone] Prakash Graham M.D. [address] [place] [phone] Scheduled Procedures Name Priority Associated Diagnoses Date/Ti [...] on filedocumented in this encounter Care Teams Inspector Eyeglass Relationship Specialty Start Date End Date Elsewhere, Pcp PCP - General Internal Medicine 05/29/19 documented as of this encounter
--- OUTSIDE RECORDS SUMMARY | 2024-04-24 08:53 | XMS_ITS | Encounter Summary ---
Author Organization [facility] Address [address] [place] [address] Care Team Providers Care Bicycle Subassembler Name Role Phone Elsewhere, Pcp Primary Care Provider Unavailabl e Reason for Visit * Reason Comments Med Refill Encounter Details Date Type Department Care Team ([facility] st Contact Info) Description 04/01/2024 Refill Department of Ophthalmology in [place], [place] [address] [place] [phone] Raffi Boyd M.D. [address] [place] [address] Med Refill Social History Tobacco Use Types Packs/Day Years Used Date Smoking Tobacco: Light Smoker Cigarettes 0.5 44.2 Started: 02/26/1980 Smokeless Tobacco: Never Comments:On again off again Alcohol Use Standard Drinks/Week Comments Yes 0 (1 standard drink = 0.6 oz pur e alcohol) [facility] Utilities Answer Date Recorded In the past 12 months has [employer], gas, oil, or water [employer] threatened to shut off services in your home? No 11/05/2023 Social Connection and Isolation Panel [NHANES] A nswer Date Recorded In a typical week, how many times do you talk on the phone with family, friends, or neighbors? Once a week 06/27/2020 How often do you get together with friends or re latives? Never 06/27/2020 How often do you attend evangelical or anglican serv ices? Never 06/27/2020 Do [...] medical care, and heating? Somewhat hard 06/27/2020 [facility] of Occupat ional Health - Occupational Stress [...] your living situation today? I have a [facility] place to live 11/05/2023 Education Answer [...] 04/27/2024 11:45 AM CDT Hospital Encounter [facility] [place] [phone] Prakash Graham M.D. [address] [place] [phone] 04/27/2024 11:45 AM CDT - 04/27/2024 2:42 PM CDT Surgery [facility] OR [address] [place] [phone] Prakash Graham M.D. [address] [place] [phone] VITRECTOMY, PARS PLANA 25 GAUGE, MEMBRANE PEEL, SILICONE OIL, SCLERAL BUCKLE, ALL ASSOCIATED PROCEDURES RIGHT EYE. 04/28/2024 8:00 AM CDT Office Visit Department of Ophthalmology in [place], [place] [address] [place] [phone] Prakash Graham M.D. [address] [place] [phone] 05/05/2024 1:15 PM CDT Ancillary Procedure Department of Ophthalmology in [place], [place] [address] [place] [phone] Prakash Graham M.D. [address] [place] [phone] 05/05/2024 1:45 PM CDT Office Visit Department of Ophthalmology in [place], [place] [address] [place] [phone] Prkaash Graham M.D. [address] [place] [phone] 06/02/2024 8:15 AM CDT Ancillary Procedure Department of Ophthalmology in [place], [place] [address] [place] [phone] Prakash Graham M.D. [address] [place] [phone] 06/02/2024 8:45 AM CDT Ancillary Procedure Department of Ophthalmology in [place], [place] [address] [place] [phone] Prakash Graham M.D. [address] [place] [phone] 06/02/2024 9:00 AM CDT Office Visit Department of Ophthalmology in [place], [place] [address] [place] [phone] Prakash Graham M.D. [address] [place] [phone] Scheduled Procedures Name Priority Associated Diagnoses Date/Ti me VITRECTOMY - PARS PLANA 25 GAUGE Panuveitis Right Necrosis Retinal Acute Right 04/27/2024 11:45 AM CDT SCLERAL BUCKLING Panuveitis Right Necrosis Retinal Acute Right 04/27/2024 11:45 AM CDT documented as of this encounter Visit Diagnoses Not on filedocumented in this encounter Care Teams Bicycle Subassembler Relationship Specialty Start Date End Date Elsewhere, Pcp PCP - General Internal Medicine 05/29/19 documented as of this encounter
--- OUTSIDE RECORDS SUMMARY | 2024-04-24 08:53 | XMS_ITS | Encounter Summary ---
Author Organization [facility] Address [address] [place] [address] Care Team Providers Care Terrazzo Installer Name Role Phone Elsewhere, Pcp Primary [...] In the past 12 months has th [employer], gas, oil, or water company threatened [...] How often do you attend mu-ism or congregation serv ices? Never 06/27/2020 Do [...] care, and heating? Somewhat hard 06/27/2020 [facility] of Occupat ional [facility] - Occupational Stress Questionnaire Answer [...] 11:45 AM CDT Hospital Encounter [facility]ST [facility] OR [address] [place] [phone] Prakash Graham M.D. [address] [place] [phone] 04/27/2024 11:45 AM CDT - 04/27/2024 2:42 PM CDT Surgery [facility] [address] [place] [phone] Prakash Graham M.D. [address] [place] [phone] VITRECTOMY, PARS PLANA 25 GAUGE, MEMBRANE PEEL, SILICONE OIL, SCLERAL BUCKLE, ALL ASSOCIATED PROCEDURES RIGHT EYE. 04/28/2024 8:00 AM CDT Office Visit Department of Ophthalmology in [place], [place] [address] [place] [phone] Prakash Graham M.D. [address] [place] [phone] 05/05/2024 1:15 PM CDT Ancillary Procedure Department of Ophthalmology in [address] [phone] Prakash Graham M.D. [address] [place] [phone] 05/05/2024 1:45 PM CDT Office Visit Department of Ophthalmology in [place], [place] [address] [place] [phone] Prakash Graham M.D. [address] [place] [phone] 06/02/2024 8:15 AM CDT Ancillary Procedure Department of Ophthalmology in [place], [place] [address] [place] [phone] Prakash Graham M.D. [address] [place] [phone] 06/02/2024 8:45 AM CDT Ancillary Procedure Department of Ophthalmology in [place], [place] [address] [place] [phone] Prakash Graham M.D. [address] [place] [phone] 06/02/2024 9:00 AM CDT Office Visit Department of Ophthalmology in [place], [place] [address] [place] [phone] Prakash Graham M.D. [address] [place] [phone] Scheduled Procedures Name Priority Associated Diagnoses Date/Ti me VITRECTOMY - PARS PLANA 25 GAUGE Panuveitis Right Necrosis Retinal Acute Right 04/27/2024 11:45 AM CDT SCLERAL BUCKLING Panuveitis Right Necrosis Retinal Acute Right 04/27/2024 11:45 AM CDT documented as of this encounter Visit Diagnoses Not on filedocumented in this encounter Care Teams Terrazzo Installer Relationship Specialty Start Date End Date Elsewhere, Pcp PCP - General Internal Medicine 05/29/19 documented as of this encounter
--- OUTSIDE RECORDS SUMMARY | 2024-04-24 08:53 | XMS_ITS | Encounter Summary ---
Author Organization [facility] Address [address] [place] [address] Care Team Providers Care New Media Strategist Name Role Phone Elsewhere, Pcp Primary Care Provider Unavailabl e Encounter Details Date Type Department Care Team (Late st Contact Info) Description 03/13/2024 Orders Only Department of Ophthalmology in [place], [place] [address] [place] [address] Jean Claude Newsome, C.O.A. Necrosis Retinal Acute [...] Recorded In the past 12 months has [employer], gas, oil, or water company threatened [...] How often do you attend amish or baptist serv ices? Never 06/27/2020 Do [...] Somewhat hard 06/27/2020 [facility] [place] of Occupat ional Health - Occupational [...] 04/27/2024 11:45 AM CDT Hospital [facility] OR [facility] [place] [phone] Prakash Graham M.D. [address] [place] [phone] 04/27/2024 11:45 AM CDT - 04/27/2024 2:42 PM CDT Surgery [facility]ST [facility] OR [facility] [place] [phone] Prakash Graham M.D. [address] [place] [phone] VITRECTOMY, PARS PLANA 25 GAUGE, MEMBRANE PEEL, SILICONE OIL, SCLERAL BUCKLE, ALL ASSOCIATED PROCEDURES RIGHT EYE. 04/28/2024 8:00 AM CDT Office Visit Department of Ophthalmology in [place], [place] [address] [place] [phone] Prakash Graham M.D. [address] [place] [phone] 05/05/2024 1:15 PM CDT Ancillary Procedure Department of Ophthalmology in [place], [place] [address] [place] [phone] Prakash Graham M.D. [address] [place] [phone] 05/05/2024 1:45 PM CDT Office Visit Department of Ophthalmology in [place], [place] [address] [place] [phone] Prakash Graham M.D. [address] [place] [phone] 06/02/2024 8:15 AM CDT Ancillary Procedure Department of Ophthalmology in [place], [place] [address] [place] [phone] Prakash Graham M.D. [address] [place] [phone] 06/02/2024 8:45 AM CDT Ancillary Procedure Department of Ophthalmology in [place], [place] [address] [place] [phone] Prakash Graham M.D. [address] [place] [phone] 06/02/2024 9:00 AM CDT Office Visit Department of Ophthalmology in [place], [place] [address] [place] [phone] Prakash Garham M.D. [address] [place] [phone] Scheduled Procedures Name Priority Associated Diagnoses Date/Ti ia VITRECTOMY - PARS PLANA 25 GAUGE Panuveitis Right Necrosis Retinal Acute Right 04/27/2024 11:45 AM CDT SCLERAL BUCKLING Panuveitis Right Necrosis Retinal Acute Right 04/27/2024 11:45 AM CDT documented as of this encounter Visit Diagnoses Diagnosis Necrosis Retinal Acute Right- Primary Panuveitis Right Necrosis Retinal Acute Right documented in this encounter Care Teams New Media Strategist Relationship Specialty Start Date End Date Elsewhere, Pcp PCP - General Internal Medicine 05/29/19 documented as of this encounter
--- OUTSIDE RECORDS SUMMARY | 2024-04-24 08:53 | XMS_ITS | Encounter Summary ---
Author Organization [facility] Address [address] [place] [address] Care Team Providers Care Ferryboat Helper Name Role Phone Elsewhere, Pcp Primary Care Provider Unavailabl e Reason for Visit * Reason Comments Med Refill Encounter Details Date Type Department Care Team ([facility] st Contact Info) Description 04/10/2024 Refill Department of Ophthalmology in [place], [place] [address] [place] [phone] Kenya Garza M.D. [address] [place] [address] Med Refill Social History Tobacco Use Types Packs/Day Years Used Date Smoking Tobacco: Light Smoker Cigarettes 0.5 44.2 Started: 02/26/1980 Smokeless Tobacco: Never Comments:On again off again Alcohol Use Standard Drinks/Week Comments Yes 0 (1 standard drink = 0.6 oz pur e alcohol) [place] Utilities Answer Date Recorded In the past 12 months has [employer], gas, oil, or water [employer] threatened to shut off services in your [...] medical care, and heating? Somewhat hard 06/27/2020 [facility] Occupat ional Health - Occupational Stress [...] 04/27/2024 11:45 AM CDT Hospital Encounter [facility] OR [facility] [place] [phone] Prakash Graham M.D. [address] [place] [phone] 04/27/2024 11:45 AM CDT - 04/27/2024 2:42 PM CDT Surgery [facility] [place] [address] [place] [phone] Prakash Graham M.D. [address] [place] [phone] VITRECTOMY, PARS PLANA 25 GAUGE, MEMBRANE PEEL, SILICONE OIL, SCLERAL BUCKLE, ALL ASSOCIATED PROCEDURES RIGHT EYE. 04/28/2024 8:00 AM CDT Office Visit Department of Ophthalmology in [place], [place] [address] [place] [phone] Prakash Graham M.D. [address] [place] [phone] 05/05/2024 1:15 PM CDT Ancillary Procedure Department of Ophthalmology in [place], [place] [address] [place] [phone] Prakash Graham M.D. [address] [place] [phone] 05/05/2024 1:45 PM CDT Office Visit Department of Ophthalmology in [place], [place] [address] [place] [phone] Prakash Graham M.D. [address] [place] [phone] 06/02/2024 8:15 AM CDT Ancillary Procedure Department of Ophthalmology in [place], [place] [address] [place] [phone] Prakash Graham M.D. [address] [place] [phone] 06/02/2024 8:45 AM CDT Ancillary Procedure Department of Ophthalmology in [address] [phone] Prakash Graham M.D. [address] [place] [phone] 06/02/2024 9:00 AM CDT Office Visit Department of Ophthalmology in [address] [phone] Prakash Graham M.D. [address] [place] [phone] Scheduled Procedures Name Priority Associated Diagnoses Date/Ti me VITRECTOMY - PARS PLANA 25 GAUGE Panuveitis Right Necrosis Retinal Acute Right 04/27/2024 11:45 AM CDT SCLERAL BUCKLING Panuveitis Right Necrosis Retinal Acute Right 04/27/2024 11:45 AM CDT documented as of this encounter Visit Diagnoses Not on filedocumented in this encounter Care Teams Ferryboat Helper Relationship Specialty Start Date End Date Elsewhere, Pcp PCP - General Internal Medicine 05/29/19 documented as of this encounter
--- OUTSIDE RECORDS SUMMARY | 2024-04-24 08:53 | XMS_ITS | Encounter Summary ---
Author Organization [facility] Address [address] [place] [address] Care Team Providers Care Air Force Pilot Name Role Phone Elsewhere, Pcp Primary Care Provider Unavailabl e Reason for Referral * Outpatient (Routine) - Authorized Specialty Diagnoses / Procedures Referred By Contac t Referred To Contact Ophthalmology Prakash Graham M.D. 200 [place] [address] [facility] Referral ID Status Reason Start Date Expiration Date V isits Requested Visits Authorized [id number] Authorized 03/13/2024 09/12/2025 1 1 Scheduling Instructions 1 MO PO Right Eye, DILATE / OCT OU * Outpatient (Routine) - Authorized Specialty Diagnoses / Procedures Referred By Contac t Referred To Contact Ophthalmology Prakash Graham M.D. 200 [place] [address] [facility] Referral ID Status Reason Start Date Expiration Date V isits Requested Visits Authorized [id number] Authorized 03/13/2024 09/12/2025 1 1 Scheduling Instructions 1 WK PO Right Eye, DILATE OD * Outpatient (Routine) - Authorized Specialty Diagnoses / Procedures Referred By Contac t Referred To Contact Ophthalmology Prakash Graham M.D. 200 [place] [address] [facility] Referral ID Status Reason Start Date Expiration Date V isits Requested Visits Authorized [id number] Authorized 03/13/2024 09/12/2025 1 1 Scheduling Instructions 1 DAY PO Right Eye * Outpatient (Routine) - Closed Specialty Diagnoses / Procedures Referred By Apolinar lopez Referred To Contact Anesthesiology Diagnoses Panuveitis Right Necrosis Retinal Acute Right Prakash Graham M.D. 200 [place] [address] [facility] Referral ID Status Reason Start Date Expiration Date Visits Re quested Visits Authorized [id number] Closed 03/13/2024 09/12/2025 1 1 * Outpatient (Routine) - Canceled Specialty Diagnoses / Procedures Referred By Apolinar lopez Referred To Contact Diagnoses Panuveitis Right Necrosis Retinal Acute Right Procedures Intravitreal Injection, Pharmacologic Agent - OD - Right Eye Prakash Graham M.D. 200 [place] [address] [facility] Referral ID Status Reason Start Date Expiration Date V isits Requested Visits Authorized [id number] Canceled 03/13/2024 03/13/2025 1 1 Encounter Details Date Type Department Care Team (Latest Contact Info) Description 03/13/2024 1:00 PM CDT Office Visit Department of Ophthalmology in [place], [place] [address] [place] [phone] Prakash Graham M.D. [address] [place] [phone] Panuveitis Right (Primary Dx); Necrosis Retinal Acute Right Social History Tobacco Use Types Packs/Day Years Used Date Smoking Tobacco: Light Smoker Cigarettes 0.5 44.2 Started: 02/26/1980 Smokeless Tobacco: Never Comments:On again off again Alcohol Use Standard Drinks/Week Comments Yes 0 (1 standard drink = 0.6 oz pur e alcohol) [facility] Utilities Answer Date Recorded In [...] How often do you attend tenriism or congregation serv ices? Never 06/27/2020 Do [...] Somewhat hard 06/27/2020 [facility] [place] of Occupat ional Health - Occupational Stress [...] your living situation today? I have a [facility] place to live 11/05/2023 Education Answer [...] 04/27/2024 11:45 AM CDT Hospital [facility] [place] [phone] Prakash Graham M.D. [address] [place] [phone] 04/27/2024 11:45 AM CDT - 04/27/2024 2:42 PM CDT Surgery [facility] [address] [place] [phone] Prakash Graham M.D. [address] [place] [phone] VITRECTOMY, PARS PLANA 25 GAUGE, MEMBRANE PEEL, SILICONE OIL, SCLERAL BUCKLE, ALL ASSOCIATED PROCEDURES RIGHT EYE. 04/28/2024 8:00 AM CDT Office Visit Department of Ophthalmology in [place], [place] [address] [place] [phone] Prakash Graham M.D. [address] [place] [phone] 05/05/2024 1:15 PM CDT Ancillary Procedure Department of Ophthalmology in [place], [place] [address] [place] [phone] Prakash Graham M.D. [address] [place] [phone] 05/05/2024 1:45 PM CDT Office Visit Department of Ophthalmology in [place], [place] [address] [place] [phone] Prakash Graham M.D. [address] [place] [phone] 06/02/2024 8:15 AM CDT Ancillary Procedure Department of Ophthalmology in [place], [place] [address] [place] [phone] Prakash Graham M.D. [address] [place] [phone] 06/02/2024 8:45 AM CDT Ancillary Procedure Department of Ophthalmology in [address] [phone] Prakash Graham M.D. [address] [place] [phone] 06/02/2024 9:00 AM CDT Office Visit Department of Ophthalmology in [address] [phone] Prakash Graham M.D. [address] [place] [phone] Scheduled Orders Name Type Priority Associated Diagnoses [...] Right documented in this encounter Care Teams Air Force Pilot Relationship Specialty Start Date End Date Elsewhere, Pcp PCP - General Internal Medicine 05/29/19 documented as of this encounter
--- OUTSIDE RECORDS SUMMARY | 2024-04-24 08:53 | XMS_ITS | Encounter Summary ---
Author Organization [facility] Address [address] [place] [address] Care Team Providers Care Yoga Coordinator Name Role Phone Elsewhere, Pcp Primary Care Provider Unavailabl e Encounter Details Date Type Department Care Team (Late st Contact Info) Description 03/14/2024 Orders Only Department of Ophthalmology in [place], [place] [address] [place] [address] Raffi Boyd M.D. [address] [place] [address] Social History Tobacco Use Types Packs/Day Years Used Date Smoking Tobacco: Light Smoker Cigarettes 0.5 44.2 Started: 02/26/1980 Smokeless Tobacco: Never Comments:On again off again Alcohol Use Standard Drinks/Week Comments Yes 0 (1 standard drink = 0.6 oz pur e alcohol) [facility] Utilities Answer Date Recorded In the past 12 months has [employer], gas, oil, or water company threatened to [...] How often do you attend pentecostal or shinto serv ices? Never 06/27/2020 Do [...] and heating? Somewhat hard 06/27/2020 [facility] of Occupat ional Health - Occupational [...] your living situation today? [facility] 11/05/2023 Education Answer [...] 04/27/2024 11:45 AM CDT [facility], [id number] [place] [phone] Prakash Graham M.D. [address] [place] [phone] 04/27/2024 11:45 AM CDT - 04/27/2024 2:42 PM CDT Surgery RST [facility] OR [address] [place] [phone] Prakash Graham M.D. [address] [place] [phone] VITRECTOMY, PARS PLANA 25 GAUGE, MEMBRANE PEEL, SILICONE OIL, SCLERAL BUCKLE, ALL ASSOCIATED PROCEDURES RIGHT EYE. 04/28/2024 8:00 AM CDT Office Visit Department of Ophthalmology in [place], [place] [address] [place] [phone] Prakash Graham M.D. [address] [place] [phone] 05/05/2024 1:15 PM CDT Ancillary Procedure Department of Ophthalmology in [place], [place] [address] [place] [phone] Prakash Graham M.D. [address] [place] [phone] 05/05/2024 1:45 PM CDT Office Visit Department of Ophthalmology in [place], [place] [address] [place] [phone] Prakash Graham M.D. [address] [place] [phone] 06/02/2024 8:15 AM CDT Ancillary Procedure Department of Ophthalmology in [place], [place] [address] [place] [phone] Prakash Graham M.D. [address] [place] [phone] 06/02/2024 8:45 AM CDT Ancillary Procedure Department of Ophthalmology in [place], [place] [address] [place] [phone] Prakash Graham M.D. [address] [place] [phone] 06/02/2024 9:00 AM CDT Office Visit Department of Ophthalmology in [place], [place] [address] [place] [phone] Prakash Graham M.D. [address] [place] [phone] Scheduled Procedures Name Priority Associated Diagnoses Date/Ti me VITRECTOMY - PARS PLANA 25 GAUGE Panuveitis Right Necrosis Retinal Acute Right 04/27/2024 11:45 AM CDT SCLERAL BUCKLING Panuveitis Right Necrosis Retinal Acute Right 04/27/2024 11:45 AM CDT documented as of this encounter Visit Diagnoses Not on filedocumented in this encounter Care Teams Yoga Coordinator Relationship Specialty Start Date End Date Elsewhere, Pcp PCP - General Internal Medicine 05/29/19 documented as of this encounter
--- OUTSIDE RECORDS SUMMARY | 2024-04-24 08:53 | XMS_ITS | Encounter Summary ---
Author Organization [facility] Address [address] [place] [address] Care Team Providers Care Hand Polisher Name Role Phone Elsewhere, Pcp Primary [...] In the past 12 months has [employer], gas, oil, or water company [...] How often do you attend jewish or pentecostal serv ices? Never 06/27/2020 Do [...] Somewhat hard 06/27/2020 [facility] - Occupational Stress Questionnaire Answer Date Recorded [...] 04/27/2024 11:45 AM CDT Hospital Encounter [facility] OR [facility] [place] [phone] Prakash Graham M.D. [address] [place] [place] [phone] 04/27/2024 11:45 AM CDT - 04/27/2024 2:42 PM CDT Surgery [facility] OR [address] [place] [phone] Prakash Graham M.D. [address] [place] [place] [phone] VITRECTOMY, PARS PLANA 25 GAUGE, MEMBRANE PEEL, SILICONE OIL, SCLERAL BUCKLE, ALL ASSOCIATED PROCEDURES RIGHT EYE. 04/28/2024 8:00 AM CDT Office Visit Department of Ophthalmology in [address] [phone] Prakash Graham M.D. [address] [place] [place] [phone] 05/05/2024 1:15 PM CDT Ancillary Procedure Department of Ophthalmology in [place], [place] [address] [place] [phone] Prakash Graham M.D. [address] [place] [place] [phone] 05/05/2024 1:45 PM CDT Office Visit Department of Ophthalmology in [place], [place] [address] [place] [phone] Prakash Graham M.D. [address] [place] [place] [phone] 06/02/2024 8:15 AM CDT Ancillary Procedure Department of Ophthalmology in [place], [place] [address] [place] [phone] Prakash Graham M.D. [address] [place] [place] [phone] 06/02/2024 8:45 AM CDT Ancillary Procedure Department of Ophthalmology in [place], [place] [address] [place] [phone] Prakash Graham M.D. [address] [place] [place] [phone] 06/02/2024 9:00 AM CDT Office Visit Department of Ophthalmology in [place], [place] [address] [place] [phone] Prakash Graham M.D. [address] [place] [place] [phone] Scheduled Procedures Name Priority Associated Diagnoses Date/Ti [...] on filedocumented in this encounter Care Teams Hand Polisher Relationship Specialty Start Date End Date Elsewhere, Pcp PCP - General Internal Medicine 05/29/19 documented as of this encounter
--- OUTSIDE RECORDS SUMMARY | 2024-04-24 08:53 | XMS_ITS | Encounter Summary ---
Author Organization [facility] Address [address] [place] [address] Care Team Providers Care Glass Blower Helper Name Role Phone Elsewhere, Pcp Primary Care Provider Unavailabl e Encounter Details Date Type Department Care Team (Late st Contact Info) Description 03/16/2024 Orders Only Department of Ophthalmology in [place], [place] [address] [place] [address] Shahnaz Amato, C.O.A. [address] [place] [address] Necrosis Retinal Acute Right (Primary Dx) Social History Tobacco Use Types Packs/Day Years Used Date Smoking Tobacco: Light Smoker Cigarettes 0.5 44.2 Started: 02/26/1980 Smokeless Tobacco: Never Comments:On again off again Alcohol Use Standard Drinks/Week Comments Yes 0 (1 standard drink = 0.6 oz pur e alcohol) [facility] Utilities Answer Date Recorded In the [...] How often do you attend orthodox or mandaeism serv ices? Never 06/27/2020 Do you belong [...] medical care, and heating? Somewhat hard 06/27/2020 [facility] [place] of Occupat ional Health - Occupational Stress [...] your living situation today? I have a [facility] place to live 11/05/2023 Education [...] RST [facility] OR [facility] [place] [phone] Prakash Graham M.D. [address] [place] [phone] 04/27/2024 11:45 AM CDT - 04/27/2024 2:42 PM CDT Surgery [facility] OR [facility] [place] [phone] Prakash Graham M.D. [address] [place] [phone] VITRECTOMY, PARS PLANA 25 GAUGE, MEMBRANE PEEL, SILICONE OIL, SCLERAL BUCKLE, ALL ASSOCIATED PROCEDURES RIGHT EYE. 04/28/2024 8:00 AM CDT Office Visit Department of Ophthalmology in [place], [place] [address] [place] [phone] Prakash Graham M.D. [address] [place] [phone] 05/05/2024 1:15 PM CDT Ancillary Procedure Department of Ophthalmology in [place], [place] [address] [place] [phone] Prakash Graham M.D. [address] [place] [phone] 05/05/2024 1:45 PM CDT Office Visit Department of Ophthalmology in [place], [place] [address] [place] [phone] Prakash Graham M.D. [address] [place] [phone] 06/02/2024 8:15 AM CDT Ancillary Procedure Department of Ophthalmology in [place], [place] [address] [place] [phone] Prakash Graham M.D. [address] [place] [phone] 06/02/2024 8:45 AM CDT Ancillary Procedure Department of Ophthalmology in [place], [place] [address] [place] [phone] Prakash Graham M.D. [address] [place] [phone] 06/02/2024 9:00 AM CDT Office Visit Department of Ophthalmology in [place], [place] [address] [place] [phone] Prakash Graham M.D. [address] [place] [phone] Scheduled Procedures Name Priority Associated Diagnoses Date/Ti [...] ciliary body detachment noted, possible ciliochoroidal effusion. [facility] Kenya Garza M.D. OPH ULTRASOUND Performing Organization Address [facility] Co de Phone Number OPHTHALMOLGY [...] ciliary body detachment noted, possible ciliochoroidal effusion. [facility] Kenya Garza M.D. [facility] ULTRASOUND Performing Organization Address [facility] Co de Phone Number OPHTHALMOLGY NON-IMAGING ORDERS documented in this encounter Visit Diagnoses Diagnosis Panuveitis Right Necrosis Retinal Acute Right Chronic Obstructive Pulmonary Disease Without Exacerbation (HCC) Necrosis Retinal Acute Right- Primary Necrosis Retinal Acute Right Necrosis Retinal Acute Right Panuveitis Right Necrosis Retinal Acute Right documented in this encounter Care Teams Glass Blower Helper Relationship Specialty Start Date End Date Elsewhere, Pcp PCP - General Internal Medicine 05/29/19 documented as of this encounter
--- OUTSIDE RECORDS SUMMARY | 2024-04-24 08:53 | XMS_ITS | Encounter Summary ---
Author Organization [facility] Address [address] [place] [address] Care Team Providers Care Mixer Attendant Name Role Phone Elsewhere, Pcp Primary Care Provider Unavailabl e Reason for Visit * Outpatient (Routine) - Closed Specialty Diagnoses / Procedures Referred By Contmuriel t Referred To Contact Ophthalmology Prakash Graham M.D. [address] [place] [phone] [facility] Referral ID Status Reason Start Date Expiration Date Visits Re quested Visits Authorized [id number] Closed 03/16/2024 09/15/2025 1 1 Encounter Details Date Type Department Care Team (Latest Contact Info) Description 04/14/2024 2:30 PM CDT Office Visit Department of Ophthalmology in [place], [place] [address] [place] [phone] Prakash Graham M.D. [address] [place] [phone] Panuveitis Right (Primary Dx); Proliferative [...] How often do you attend worship or shinto serv ices? Never 06/27/2020 Do [...] and heating? Somewhat hard 06/27/2020 [facility] [place] of Occupat ional Health - Occupational Stress [...] your living situation today? I have a [facility] place to live 11/05/2023 Education Answer [...] 04/27/2024 11:45 AM CDT [facility] [address] [place] [phone] Prakash Graham M.D. [address] [place] [phone] 04/27/2024 11:45 AM CDT - 04/27/2024 2:42 PM CDT Surgery RST [facility] OR [address] [place] [phone] Prakash Graham M.D. [address] [place] [phone] VITRECTOMY, PARS PLANA 25 GAUGE, MEMBRANE PEEL, SILICONE OIL, SCLERAL BUCKLE, ALL ASSOCIATED PROCEDURES RIGHT EYE. 04/28/2024 8:00 AM CDT Office Visit Department of Ophthalmology in [place], [place] [address] [place] [phone] Prakash Graham M.D. [address] [place] [phone] 05/05/2024 1:15 PM CDT Ancillary Procedure Department of Ophthalmology in [place], [place] [address] [place] [phone] Prakash Graham M.D. [address] [place] [phone] 05/05/2024 1:45 PM CDT Office Visit Department of Ophthalmology in [place], [place] [address] [place] [phone] Prakash Graham M.D. [address] [place] [phone] 06/02/2024 8:15 AM CDT Ancillary Procedure Department of Ophthalmology in [place], [place] [address] [place] [phone] Prakash Graham M.D. [address] [place] [phone] 06/02/2024 8:45 AM CDT Ancillary Procedure Department of Ophthalmology in [place], [place] [address] [place] [phone] Prakash Graham M.D. [address] [place] [phone] 06/02/2024 9:00 AM CDT Office Visit Department of Ophthalmology in [place], [place] [address] [place] [phone] Prakahs Graham M.D. [address] [place] [phone] Scheduled Procedures Name Priority Associated Diagnoses Date/Ti [...] Right documented in this encounter Care Teams Mixer Attendant Relationship Specialty Start Date End Date Elsewhere, Pcp PCP - General Internal Medicine 05/29/19 documented as of this encounter
--- OUTSIDE RECORDS SUMMARY | 2024-04-24 08:53 | XMS_ITS | Encounter Summary ---
Author Organization [facility] Address [address] [place] [address] Care Team Providers Care Bank Advisor Name Role Phone Elsewhere, Pcp Primary Care Provider Unavailabl e Encounter Details Date Type Department Care Team (Latest Contact Info) Description 03/13/2024 12:00 PM CDT Ancillary Procedure Department of Ophthalmology in [place], [place] [address] [place] [address] Kenya Garza M.D. [address] [place] [address] Panuveitis Right; Necrosis Retinal Acute Right Social History Tobacco Use Types Packs/Day Years Used Date Smoking Tobacco: Light Smoker Cigarettes 0.5 44.2 Started: 02/26/1980 Smokeless Tobacco: Never Comments:On again off again Alcohol Use Standard Drinks/Week Comments Yes 0 (1 standard drink = 0.6 oz pur e alcohol) [facility] Utilities Answer Date Recorded In the past 12 months has [employer], gas, oil, or water [employer] threatened to shut off services in your home? No 11/05/2023 Social Connection and Isolation Panel [NHANES] A nswer Date Recorded In a typical week, how many times do you talk on the phone with family, friends, or neighbors? Once a week 06/27/2020 How often do you get together with friends or re latives? Never 06/27/2020 How often do you attend methodist or yazdanism serv ices? Never 06/27/2020 Do [...] medical care, and heating? Somewhat hard 06/27/2020 [facility] of Occupat ional Health - [...] your living situation today? I have a [employer] [facility] to live 11/05/2023 [...] 04/27/2024 11:45 AM CDT Hospital Encounter [facility] OR [address] [place] [phone] Prakash Graham M.D. [address] [place] [phone] 04/27/2024 11:45 AM CDT - 04/27/2024 2:42 PM CDT Surgery [facility] OR [address] [place] [phone] Prakash Graham M.D. [address] [place] [phone] VITRECTOMY, PARS PLANA 25 GAUGE, MEMBRANE PEEL, SILICONE OIL, SCLERAL BUCKLE, ALL ASSOCIATED PROCEDURES RIGHT EYE. 04/28/2024 8:00 AM CDT Office Visit Department of Ophthalmology in [place], [place] [address] [place] [phone] Prakash Graham M.D. [address] [place] [phone] 05/05/2024 1:15 PM CDT Ancillary Procedure Department of Ophthalmology in [place], [place] [address] [place] [phone] Prakash Graham M.D. [address] [place] [phone] 05/05/2024 1:45 PM CDT Office Visit Department of Ophthalmology in [place], [place] [address] [place] [phone] Prakash Graham M.D. [address] [place] [phone] 06/02/2024 8:15 AM CDT Ancillary Procedure Department of Ophthalmology in [place], [place] [address] [place] [phone] Prakash Graham M.D. [address] [place] [phone] 06/02/2024 8:45 AM CDT Ancillary Procedure Department of Ophthalmology in [place], [place] [address] [place] [phone] Prakash Graham M.D. [address] [place] [phone] 06/02/2024 9:00 AM CDT Office Visit Department of Ophthalmology in [place], [place] [address] [place] [phone] Prakash Graham M.D. [address] [place] [phone] Scheduled Procedures Name Priority Associated Diagnoses Date/Ti [...] Right documented in this encounter Care Teams Bank Advisor Relationship Specialty Start Date End Date Elsewhere, Pcp PCP - General Internal Medicine 05/29/19 documented as of this encounter
--- OUTSIDE RECORDS SUMMARY | 2024-04-24 08:53 | XMS_ITS | Encounter Summary ---
Author Organization [facility] Address [address] [place] [address] Care Team Providers Care Emt P Name Role Phone Elsewhere, Pcp Primary Care [...] Recorded In the past 12 months has [employer] electric, gas, oil, or water company threatened [...] How often do you attend confucianism or denominational serv ices? Never 06/27/2020 Do [...] hard 06/27/2020 [facility] - Occupational Stress Questionnaire Answer [...] [facility] OR [facility] [place] [phone] Prakash Graham M.D. [address] [place] [phone] 04/27/2024 11:45 AM CDT - 04/27/2024 2:42 PM CDT Surgery [facility] OR [address] [place] [phone] Prakash Graham M.D. [address] [place] [phone] VITRECTOMY, PARS PLANA 25 GAUGE, MEMBRANE PEEL, SILICONE OIL, SCLERAL BUCKLE, ALL ASSOCIATED PROCEDURES RIGHT EYE. 04/28/2024 8:00 AM CDT Office Visit Department of Ophthalmology in [address] [phone] Prakash Graham M.D. [address] [place] [phone] 05/05/2024 1:15 PM CDT Ancillary Procedure Department of Ophthalmology in [place], [place] [address] [place] [phone] Prakash Graham M.D. [address] [place] [phone] 05/05/2024 1:45 PM CDT Office Visit Department of Ophthalmology in [place], [place] [address] [place] [phone] Prakash Graham M.D. [address] [place] [phone] 06/02/2024 8:15 AM CDT Ancillary Procedure Department of Ophthalmology in [place], [place] [address] [place] [phone] Prakash Graham M.D. [address] [place] [phone] 06/02/2024 8:45 AM CDT Ancillary Procedure Department of Ophthalmology in [place], [place] [address] [place] [phone] Prakash Graham M.D. [address] [place] [phone] 06/02/2024 9:00 AM CDT Office Visit Department of Ophthalmology in [place], [place] [address] [place] [phone] Prakash Graham M.D. [address] [place] [phone] Scheduled Procedures Name Priority Associated Diagnoses Date/Ti [...] in this encounter Results * Eyes US-Eye [id number]-Nqbq-Neknyvxtrbtxm Image Exam (03/13/2024 12:10 AM CDT) Narrative [...] on filedocumented in this encounter Care Teams Emt P Relationship Specialty Start Date End Date Elsewhere, Pcp PCP - General Internal Medicine 05/29/19 documented as of this encounter
--- OUTSIDE RECORDS SUMMARY | 2024-04-24 08:53 | XMS_ITS | Encounter Summary ---
Author Organization [facility] Address [address] [place] [address] Care Team Providers Care Laundry Worker Name Role Phone Elsewhere, Pcp Primary Care Provider Unavailabl e Reason for Referral * Outpatient (Routine) - Closed Specialty Diagnoses / Procedures Referred By Contmuriel t Referred To Contact Ophthalmology Prakash Graham M.D. [address] [place] [address] [facility] Referral ID Status Reason Start Date Expiration Date Visits Re quested Visits Authorized [id number] Closed 03/16/2024 09/15/2025 1 1 Encounter Details Date Type Department Care Team (Late st Contact Info) Description 03/16/2024 Orders Only Department of Ophthalmology in [place], [place] [address] [place] [phone] Jean Claude Newsome, C.O.A. Panuveitis Right (Primary Dx); Necrosis Retinal Acute Right Social History Tobacco Use Types Packs/Day Years Used Date Smoking Tobacco: Light Smoker Cigarettes 0.5 44.2 Started: 02/26/1980 Smokeless Tobacco: Never Comments:On again off again Alcohol Use Standard Drinks/Week Comments Yes 0 (1 standard drink = 0.6 oz pur e alcohol) [facility] Utilities Answer Date Recorded In the past [...] How often do you attend religion or hindu serv ices? Never 06/27/2020 Do [...] care, and heating? Somewhat hard 06/27/2020 [facility] of Occupat ional Health - Occupational Stress [...] your living situation today? I have a [facility] place to live 11/05/2023 Education [...] Hospital Encounter [facility] OR [address] [place] [phone] Prakash Graham M.D. [address] [place] [phone] 04/27/2024 11:45 AM CDT - 04/27/2024 2:42 PM CDT Surgery [facility] [address] [place] [phone] Prakash Graham M.D. [address] [place] [phone] VITRECTOMY, PARS PLANA 25 GAUGE, MEMBRANE PEEL, SILICONE OIL, SCLERAL BUCKLE, ALL ASSOCIATED PROCEDURES RIGHT EYE. 04/28/2024 8:00 AM CDT Office Visit Department of Ophthalmology in [place], [place] [address] [place] [phone] Prakash Graham M.D. [address] [place] [phone] 05/05/2024 1:15 PM CDT Ancillary Procedure Department of Ophthalmology in [place], [place] [address] [place] [phone] Prakash Graham M.D. [address] [place] [phone] 05/05/2024 1:45 PM CDT Office Visit Department of Ophthalmology in [place], [place] [address] [place] [phone] Prakash Graham M.D. [address] [place] [phone] 06/02/2024 8:15 AM CDT Ancillary Procedure Department of Ophthalmology in [place], [place] [address] [place] [phone] Prakash Graham M.D. [address] [place] [phone] 06/02/2024 8:45 AM CDT Ancillary Procedure Department of Ophthalmology in [address] [phone] Prakash Graham M.D. [address] [place] [phone] 06/02/2024 9:00 AM CDT Office Visit Department of Ophthalmology in [address] [phone] Prakash Graham M.D. [address] [place] [phone] Scheduled Procedures Name Priority Associated Diagnoses Date/Ti [...] Right documented in this encounter Care Teams Laundry Worker Relationship Specialty Start Date End Date Elsewhere, Pcp PCP - General Internal Medicine 05/29/19 documented as of this encounter
--- OUTSIDE RECORDS SUMMARY | 2024-04-24 08:53 | XMS_ITS | Encounter Summary ---
Author Organization [facility] Address [address] [place] [address] Care Team Providers Care Blueprint Cutter Name Role Phone Elsewhere, Pcp Primary Care Provider Unavailabl e Reason for Visit * Outpatient (Routine) - Closed Specialty Diagnoses / Procedures Referred By Contmuriel t Referred To Contact Anesthesiology Diagnoses Panuveitis Right Necrosis Retinal Acute Right Prakash Graham M.D. [address] [place] [phone] [facility] Referral ID Status Reason Start Date Expiration Date Visits Re quested Visits Authorized [id number] Closed 03/13/2024 09/12/2025 1 1 Encounter Details Date Type Department Care Team (Latest Contact Info) Description 04/14/2024 11:00 AM CDT Comprehensive Visit Preoperative Evaluation Center in [place], [place] [address] [place] [phone] Prakash Graham M.D. [address] [place] [phone] Franck Maldonado M.D. [address] [place] [phone] Panuveitis Right; Necrosis Retinal Acute Right Social History Tobacco Use Types Packs/Day Years Used Date Smoking Tobacco: Former Cigarettes 0.7 70.4 0 03/28/1975 - 01/09/2022 Smokeless Tobacco: Never Tobacco Cessation:Counseling Given: Not Answered Comments:On again off again Alcohol Use Standard Drinks/Week Comments Yes 5 (1 standard drink = 0.6 oz pur e alcohol) occasional [facility] Utilities Answer Date Recorded In [...] How often do you attend evangelical or yarsani serv ices? Never 06/27/2020 Do [...] Health [facility] of Occupat ional Health - Occupational [...] / PLAN 68 yo F (BMI 26) [facility]. [facility] prior to outpatient R vitrectomy w/ Dr. Graham at [facility] on 04/27/2024. # Panuveitis with acute retinal [...] (Metoprolol). # COPD (Anoro Ellipta). # Former half-way cigarette smoker, quit 2021. # H/o interstitial pneumonitis related to low-dose MTX with subsequent steroid treatment since hospitalization at [facility] in August 2023. # Bullous Pemphigoid (15 [...] SVG to RCA. Successful PCI with Synergy MOHMAUD as above Plavix for 1 year - minimum ECG (12/2023): Sinus rhythm with short ID with occasional Premature ventricular complexes Septal infarct pattern PATIENT EDUCATION: Reviewed Instructions To Get Ready for Your Surgery or Procedure: [facility] 3596-07 rev 0124. Written and verbal instructions [...] Encounter [facility] [address] [place] [address] Prakash Graham M.D. [address] [place] [address] 04/27/2024 11:45 AM CDT - 04/27/2024 2:42 PM CDT Surgery [facility] [address] [place] [phone] Prakash Graham M.D. [address] [place] [phone] VITRECTOMY, PARS PLANA 25 GAUGE, MEMBRANE PEEL, SILICONE OIL, SCLERAL BUCKLE, ALL ASSOCIATED PROCEDURES RIGHT EYE. 04/28/2024 8:00 AM CDT Office Visit Department of Ophthalmology in [place], [place] [address] [place] [phone] Prakash Graham M.D. [address] [place] [phone] 05/05/2024 1:15 PM CDT Ancillary Procedure Department of Ophthalmology in [place], [place] [address] [place] [phone] Prakash Graham M.D. [address] [place] [phone] 05/05/2024 1:45 PM CDT Office Visit Department of Ophthalmology in [address] [phone] Prakash Graham M.D. [address] [place] [phone] 06/02/2024 8:15 AM CDT Ancillary Procedure Department of Ophthalmology in [place], [place] [address] [place] [phone] Prakash Graham M.D. [address] [place] [phone] 06/02/2024 8:45 AM CDT Ancillary Procedure Department of Ophthalmology in [place], [place] [address] [place] [address] Prakash Graham M.D. [address] [place] [phone] 06/02/2024 9:00 AM CDT Office Visit Department of Ophthalmology in [place], [place] [address] [place] [address] Prakash Graham M.D. [address] [place] [address] Scheduled Procedures Name Priority Associated Diagnoses Date/Ti [...] Right documented in this encounter Care Teams Blueprint Cutter Relationship Specialty Start Date End Date Elsewhere, Pcp PCP - General Internal Medicine 05/29/19 documented as of this encounter
--- OUTSIDE RECORDS SUMMARY | 2024-04-24 08:53 | XMS_ITS | Encounter Summary ---
Author Organization [facility] Address [address] [place] [address] Care Team Providers Care Materials Supervisor Name Role Phone Elsewhere, Pcp Primary Care Provider Unavailabl e Reason for Referral * Outpatient (Routine) - Closed Specialty Diagnoses / Procedures Referred By Apolinar lopez Referred To Contact Procedures Cyclophotocoagulation, Transscleral - OD - Right Eye Prakash Graham M.D. 200 [place] [address] [facility] Referral ID Status Reason Start Date Expiration Date Visits Re quested Visits Authorized [id number] Closed 03/13/2024 03/13/2025 1 1 Reason for Visit * Outpatient (Routine) - Canceled Specialty Diagnoses / Procedures Referred By Apolinar lopez Referred To Contact Diagnoses Panuveitis Right Necrosis Retinal Acute Right Procedures Intravitreal Injection, Pharmacologic Agent - OD - Right Eye Prakash Graham M.D. [address] [place] [address] [facility] Referral ID Status Reason Start Date Expiration Date V isits Requested Visits Authorized [id number] Canceled 03/13/2024 03/13/2025 1 1 Encounter Details Date Type Department Care Team (Latest Contact Info) Description 03/13/2024 2:00 PM CDT Procedure visit Department of Ophthalmology in [place], [place] [address] [place] [phone] Prakash Graham M.D. 200 [place] [phone] Primary Hypotony Right Eye (Primary Dx); Panuveitis Right; Necrosis Retinal Acute Right Social History Tobacco Use Types Packs/Day Years Used Date Smoking Tobacco: Light Smoker Cigarettes 0.5 44.2 Started: 02/26/1980 Smokeless Tobacco: Never Comments:On again off again Alcohol Use Standard Drinks/Week Comments Yes 0 (1 standard drink = 0.6 oz pur e alcohol) [facility] Utilities Answer Date Recorded In [...] How often do you attend cheondoism or temple serv ices? Never 06/27/2020 Do [...] Somewhat hard 06/27/2020 [facility] [place] of Occupat ional Health - Occupational Stress [...] your living situation today? I have a [facility] place to live 11/05/2023 Education Answer [...] 11:45 AM CDT Hospital Encounter [facility] [address] [place] [phone] Prakash Graham M.D. [address] [place] [phone] 04/27/2024 11:45 AM CDT - 04/27/2024 2:42 PM CDT Surgery [facility] OR [address] [place] [phone] Prakash Graham M.D. [address] [place] [phone] VITRECTOMY, PARS PLANA 25 GAUGE, MEMBRANE PEEL, SILICONE OIL, SCLERAL BUCKLE, ALL ASSOCIATED PROCEDURES RIGHT EYE. 04/28/2024 8:00 AM CDT Office Visit Department of Ophthalmology in [place], [place] [address] [place] [phone] Prakash Graham M.D. [address] [place] [phone] 05/05/2024 1:15 PM CDT Ancillary Procedure Department of Ophthalmology in [place], [place] [address] [place] [phone] rPakash Graham M.D. [address] [place] [phone] 05/05/2024 1:45 PM CDT Office Visit Department of Ophthalmology in [place], [place] [address] [place] [phone] Prakash Graham M.D. [address] [place] [phone] 06/02/2024 8:15 AM CDT Ancillary Procedure Department of Ophthalmology in [place], [place] [address] [place] [phone] Prakash Graham M.D. [address] [place] [phone] 06/02/2024 8:45 AM CDT Ancillary Procedure Department of Ophthalmology in [place], [place] [address] [place] [phone] Prakash Graham M.D. [address] [place] [phone] 06/02/2024 9:00 AM CDT Office Visit Department of Ophthalmology in [place], [place] [address] [place] [phone] Prakash Graham M.D. [address] [place] [phone] Scheduled Procedures Name Priority Associated Diagnoses Date/Ti [...] documented in this encounter Care Teams Materials Supervisor Relationship Specialty Start Date End Date Elsewhere, Pcp PCP - General Internal Medicine 05/29/19 documented as of this encounter
--- OUTSIDE RECORDS SUMMARY | 2024-04-24 08:54 | XMS_ITS | Encounter Summary ---
Author Organization [facility] Address [address] [place] [address] Care Team Providers Care Weight Trainer Name Role Phone Elsewhere, Pcp Primary Care [...] In the past 12 months has th [employer] electric, gas, oil, or water company threatened [...] How often do you attend catholic or orthodoxy serv ices? Never 06/27/2020 Do [...] medical care, and heating? Somewhat hard 06/27/2020 [facility] of Occupat ional [facility] - Occupational Stress Questionnaire Answer Date [...] 04/27/2024 11:45 AM CDT Hospital Encounter [facility] [address] [place] [phone] Prakash Graham M.D. [address] [place] [phone] 04/27/2024 11:45 AM CDT - 04/27/2024 2:42 PM CDT Surgery [facility] OR Counts include [facility] beds at the [facility] [place] [phone] Prakash Graham M.D. [address] [place] [phone] VITRECTOMY, PARS PLANA 25 GAUGE, MEMBRANE PEEL, SILICONE OIL, SCLERAL BUCKLE, ALL ASSOCIATED PROCEDURES RIGHT EYE. 04/28/2024 8:00 AM CDT Office Visit Department of Ophthalmology in [place], [place] [address] [place] [phone] Prakash Graham M.D. [address] [place] [phone] 05/05/2024 1:15 PM CDT Ancillary Procedure Department of Ophthalmology in [address] [phone] Prakash Graham M.D. [address] [place] [phone] 05/05/2024 1:45 PM CDT Office Visit Department of Ophthalmology in [place], [place] [address] [place] [phone] Prakash Graham M.D. [address] [place] [phone] 06/02/2024 8:15 AM CDT Ancillary Procedure Department of Ophthalmology in [place], [place] [address] [place] [phone] Prakash Graham M.D. [address] [place] [phone] 06/02/2024 8:45 AM CDT Ancillary Procedure Department of Ophthalmology in [place], [place] [address] [place] [phone] Prakash Graham M.D. [address] [place] [phone] 06/02/2024 9:00 AM CDT Office Visit Department of Ophthalmology in [place], [place] [address] [place] [phone] Prakash Graham M.D. [address] [place] [phone] Scheduled Procedures Name Priority Associated Diagnoses Date/Ti de VITRECTOMY - PARS PLANA 25 GAUGE Panuveitis Right Necrosis Retinal Acute Right 04/27/2024 11:45 AM CDT SCLERAL BUCKLING Panuveitis Right Necrosis Retinal Acute Right 04/27/2024 11:45 AM CDT documented as of this encounter Procedures Procedure Name Priority Date/Time Associated Diagnosis Comments OPHTHALMOLOGY IMAGE EXAM Routine 02/20/2024 12:00 AM CDT documented in this encounter Results * Video-Eyes US-Eye T-Opca-Vxrdejanksycj Image Exam (02/20/2024 12:00 AM CDT) Narrative [...] on filedocumented in this encounter Care Teams Weight Trainer Relationship Specialty Start Date End Date Elsewhere, Pcp PCP - General Internal Medicine 05/29/19 documented as of this encounter
--- OUTSIDE RECORDS SUMMARY | 2024-04-24 08:54 | XMS_ITS | Encounter Summary ---
Author Organization [facility] Address [address] [place] [address] Care Team Providers Care Ball Mill Operator Name Role Phone Elsewhere, Pcp Primary Care Provider Unavailabl e Encounter Details Date Type Department Care Team (Latest Contact Info) Description 03/13/2024 8:00 AM CDT Ancillary Procedure Department of Ophthalmology in [place], [place] [address] [place] [address] Kenya Garza M.D. [address] [place] [address] Panuveitis Right; Necrosis Retinal Acute Right Social History Tobacco Use Types Packs/Day Years Used Date Smoking Tobacco: Light Smoker Cigarettes 0.5 44.2 Started: 02/26/1980 Smokeless Tobacco: Never Comments:On again off again Alcohol Use Standard Drinks/Week Comments Yes 0 (1 standard drink = 0.6 oz pur e alcohol) [facility] Utilities Answer Date Recorded In the past 12 months has [employer], gas, oil, or water [employer] threatened to shut off services in your home? No 11/05/2023 Social Connection and Isolation Panel [NHANES] A nswer Date Recorded In a typical week, how many times do you talk on the phone with family, friends, or neighbors? Once a week 06/27/2020 How often do you get together with friends or re latives? Never 06/27/2020 How often do you attend gnosticist or pentecostalism serv ices? Never 06/27/2020 Do you belong to any clubs o r organizations such as gnosticist groups, unions, fraternal or athletic groups, or [...] heating? Somewhat hard 06/27/2020 [facility] [place] [facility] Occupat ional [facility] - [...] 04/27/2024 11:45 AM CDT Hospital Encounter [facility] [place] [address] [place] [phone] Prakash Graham M.D. [address] [place] [phone] 04/27/2024 11:45 AM CDT - 04/27/2024 2:42 PM CDT Surgery [facility] [address] [place] [phone] Prakash Graham M.D. [address] [place] [phone] VITRECTOMY, PARS PLANA 25 GAUGE, MEMBRANE PEEL, SILICONE OIL, SCLERAL BUCKLE, ALL ASSOCIATED PROCEDURES RIGHT EYE. 04/28/2024 8:00 AM CDT Office Visit Department of Ophthalmology in [place], [place] [address] [place] [phone] Prakash Graham M.D. [address] [place] [phone] 05/05/2024 1:15 PM CDT Ancillary Procedure Department of Ophthalmology in [place], [place] [address] [place] [phone] Prakash Graham M.D. [address] [place] [phone] 05/05/2024 1:45 PM CDT Office Visit Department of Ophthalmology in [place], [place] [address] [place] [phone] Prakash Graham M.D. [address] [place] [phone] 06/02/2024 8:15 AM CDT Ancillary Procedure Department of Ophthalmology in [place], [place] [address] [place] [phone] Prakash Graham M.D. [address] [place] [phone] 06/02/2024 8:45 AM CDT Ancillary Procedure Department of Ophthalmology in [place], [place] [address] [place] [phone] Prakash Graham M.D. [address] [place] [phone] 06/02/2024 9:00 AM CDT Office Visit Department of Ophthalmology in [place], [place] [address] [place] [phone] Prakash Graham M.D. [address] [place] [phone] Scheduled Procedures Name Priority Associated Diagnoses Date/Ti [...] Right documented in this encounter Care Teams Ball Mill Operator Relationship Specialty Start Date End Date Elsewhere, Pcp PCP - General Internal Medicine 05/29/19 documented as of this encounter
--- OUTSIDE RECORDS SUMMARY | 2024-04-24 08:54 | XMS_ITS | Encounter Summary ---
Author Organization [facility] Address [address] [place] [address] Care Team Providers Care Fire Production Operator Name Role Phone Elsewhere, Pcp Primary Care Provider Unavailabl e Reason for Referral * MRI/CAT/PET Scan (Routine) - Closed Specialty Diagnoses / Procedures Referred By Apolinar lopez Referred To Contact Radiology Diagnoses Posterior Reversible Encephalopathy Syndrome Procedures MR Brain without and with IV Contrast Piter Baez M.D. 200 [place] [address] [facility] Referral ID Status Reason Start Date Expiration Date Visits Re quested Visits Authorized [id number] Closed 02/03/2024 10/27/2024 1 1 Reason for Visit * Reason Onset Date Comments Pre-visit Testing Orders 01/31/2024 Encounter Details Date Type Department Care Team (Latest Contact Info) Description 01/31/2024 Clinical Communication Department of Neurology in [place], [place] 200 [place] [phone] Piter Baez M.D. [address] [place] [phone] Pre-visit Testing Orders Social History Tobacco Use Types Packs/Day Years Used Date Smoking Tobacco: Light Smoker Cigarettes 0.5 44.2 Started: 02/26/1980 Smokeless Tobacco: Never Comments:On again off again Alcohol Use Standard Drinks/Week Comments Yes 0 (1 standard drink = 0.6 oz pur e alcohol) [facility] Utilities Answer Date Recorded In the past 12 months has th e electric, gas, oil, or water [employer] threatened to shut off services in your home? No 11/05/2023 Social Connection and Isolation Panel [NHANES] A nswer Date Recorded In a typical week, how many times do you talk on the phone with family, friends, or neighbors? Once a week 06/27/2020 How often do you get together with friends or re latives? Never 06/27/2020 How often do you attend caodaism or orthodox serv ices? Never 06/27/2020 Do you belong to any clubs o r organizations such as caodaism groups, unions, fraternal or athletic groups, or [...] medical care, and heating? Somewhat hard 06/27/2020 [facility] Occupat ional [facility] - Occupational Stress Questionnaire Answer Date [...] situation today? I have a [facility] place to live 11/05/2023 Education Answer [...] 11:45 AM CDT Hospital Encounter [facility] [address] [place] [phone] Prakash Graham M.D. [address] [place] [phone] 04/27/2024 11:45 AM CDT - 04/27/2024 2:42 PM CDT Surgery [facility] [place] [address] [place] [phone] Prakash Graham M.D. [address] [place] [phone] VITRECTOMY, PARS PLANA 25 GAUGE, MEMBRANE PEEL, SILICONE OIL, SCLERAL BUCKLE, ALL ASSOCIATED PROCEDURES RIGHT EYE. 04/28/2024 8:00 AM CDT Office Visit Department of Ophthalmology in [place], [place] [address] [place] [phone] Prakash Graham M.D. [address] [place] [phone] 05/05/2024 1:15 PM CDT Ancillary Procedure Department of Ophthalmology in [place], [place] [address] [place] [phone] Prakash Graham M.D. [address] [place] [phone] 05/05/2024 1:45 PM CDT Office Visit Department of Ophthalmology in [place], [place] [address] [place] [phone] Prakash Graham M.D. [address] [place] [phone] 06/02/2024 8:15 AM CDT Ancillary Procedure Department of Ophthalmology in [place], [place] [address] [place] [phone] Prakash Graham M.D. [address] [place] [phone] 06/02/2024 8:45 AM CDT Ancillary Procedure Department of Ophthalmology in [place], [place] [address] [place] [phone] Prakash Graham M.D. [address] [place] [phone] 06/02/2024 9:00 AM CDT Office Visit Department of Ophthalmology in [place], [place] [address] [place] [phone] Prakash Graham M.D. 200 [facility] [phone] Scheduled Procedures Name Priority Associated Diagnoses Date/Ti [...] Right documented in this encounter Care Teams Fire Production Operator Relationship Specialty Start Date End Date Elsewhere, Pcp PCP - General Internal Medicine 05/29/19 documented as of this encounter
--- OUTSIDE RECORDS SUMMARY | 2024-04-24 08:54 | XMS_ITS | Encounter Summary ---
Author Organization [facility] Address [address] [place] [address] Care Team Providers Care Heel Sprayer Name Role Phone Elsewhere, Pcp Primary Care Provider Unavailabl e Reason for Referral * Outpatient (Routine) - Closed Specialty Diagnoses / Procedures Referred By Contac t Referred To Contact Neurology Piter Baez M.D. 200 [place] [address] [facility] Referral ID Status Reason Start Date Expiration Date Visits Re quested Visits Authorized [id number] Closed 02/20/2024 08/21/2025 1 1 Reason for Visit * Outpatient (Routine) - Closed Specialty Diagnoses / Procedures Referred By Contac t Referred To Contact Neurology Diagnoses Posterior Reversible Encephalopathy Syndrome Katerine Bashir M.D. [address] [place] [address] [facility] Referral ID Status Reason Start Date Expiration Date Visits Re quested Visits Authorized [id number] Closed 01/20/2024 07/21/2025 1 1 Encounter Details Date Type Department Care Team (Latest Contact Info) Description 02/20/2024 1:00 PM CDT Comprehensive Visit Department of Neurology in [place], [place] [address] [place] [phone] Piter Baez M.D. 200 [place] [phone] Posterior Reversible Encephalopathy Syndrome Social [...] How often do you attend hinduism or christianity serv ices? Never 06/27/2020 Do [...] and heating? Somewhat hard 06/27/2020 [facility] Occupat ional Health - Occupational Stress [...] . Referring provider: Katerine Bashir M.D. [address] [place] [address] HISTORY OF PRESENT ILLNESS Pleasant 68-year-old right-handed woman accompanied by her who is referred by her PCP for an initial neurology evaluation regarding recent hospitalization elsewhere for PRES. She gets her ophthalmology care at [place] by Dr. 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 She gets all of her care for other medical conditions in [place] and I do not have access to [facility] these records. Potentially relevant past medical issues include a biomedical analytical scientist treating her with methotrexate for ???itchy bumps?? 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 [...] her care here rather than[facility]. We have scheduled an MRI for [...] Hospital Encounter [facility] [address] [place] [phone] Prakash Graham M.D. [address] [place] [address] 04/27/2024 11:45 AM CDT - 04/27/2024 2:42 PM CDT Surgery [facility] [address] [place] [phone] Prakash Graham M.D. [address] [place] [phone] VITRECTOMY, PARS PLANA 25 GAUGE, MEMBRANE PEEL, SILICONE OIL, SCLERAL BUCKLE, ALL ASSOCIATED PROCEDURES RIGHT EYE. 04/28/2024 8:00 AM CDT Office Visit Department of Ophthalmology in [place], [place] [address] [place] [phone] Prakash Graham M.D. [address] [place] [phone] 05/05/2024 1:15 PM CDT Ancillary Procedure Department of Ophthalmology in [place], [place] [address] [place] [phone] Prakash Graham M.D. [address] [place] [phone] 05/05/2024 1:45 PM CDT Office Visit Department of Ophthalmology in [address] [phone] Prakash Graham M.D. [address] [place] [phone] 06/02/2024 8:15 AM CDT Ancillary Procedure Department of Ophthalmology in [address] [phone] Prakash Graham M.D. [address] [place] [phone] 06/02/2024 8:45 AM CDT Ancillary Procedure Department of Ophthalmology in [address] [phone] Prakash Graham M.D. [address] [place] [address] [place] [phone] 06/02/2024 9:00 AM CDT Office Visit Department of Ophthalmology in [place], [place] [address] [place] [address] Prakash Graham M.D. 200 [place] [address] Scheduled Procedures Name Priority Associated Diagnoses Date/Ti vt VITRECTOMY - PARS PLANA 25 GAUGE Panuveitis [...] Right documented in this encounter Care Teams Heel Sprayer Relationship Specialty Start Date End Date Elsewhere, Pcp PCP - General Internal Medicine 05/29/19 documented as of this encounter
--- OUTSIDE RECORDS SUMMARY | 2024-04-24 08:54 | XMS_ITS | Encounter Summary ---
Author Organization [facility] Address [address] [place] [address] Care Team Providers Care Breaker Off Name Role Phone Elsewhere, Pcp Primary Care Provider Unavailabl e Encounter Details Date Type Department Care Team (Latest Contact Info) Description 02/20/2024 10:00 AM CDT Ancillary Procedure Department of Ophthalmology in [place], [place] [address] [place] [address] Kenya Garza M.D. [address] [place] [address] Panuveitis Right; Necrosis Retinal Acute Right Social History Tobacco Use Types Packs/Day Years Used Date Smoking Tobacco: Light Smoker Cigarettes 0.5 44.2 Started: 02/26/1980 Smokeless Tobacco: Never Comments:On again off again Alcohol Use Standard Drinks/Week Comments Yes 0 (1 standard drink = 0.6 oz pur e alcohol) [facility] Utilities Answer Date Recorded In the past 12 months has [employer], gas, oil, or water [employer] threatened to shut off services in your home? No 11/05/2023 Social Connection and Isolation Panel [NHANES] A nswer Date Recorded In a typical week, how many times do you talk on the phone with family, friends, or neighbors? Once a week 06/27/2020 How often do you get together with friends or re latives? Never 06/27/2020 How often do you attend yazdanism or lutheran serv ices? Never 06/27/2020 Do [...] 04/27/2024 11:45 AM CDT Hospital Encounter [facility] OR [address] [place] [phone] Prakash Graham M.D. [address] [place] [phone] 04/27/2024 11:45 AM CDT - 04/27/2024 2:42 PM CDT Surgery [facility] OR [address] [place] [phone] Prakash Graham M.D. [address] [place] [phone] VITRECTOMY, PARS PLANA 25 GAUGE, MEMBRANE PEEL, SILICONE OIL, SCLERAL BUCKLE, ALL ASSOCIATED PROCEDURES RIGHT EYE. 04/28/2024 8:00 AM CDT Office Visit Department of Ophthalmology in [place], [place] [address] [place] [phone] Prakash Graham M.D. [address] [place] [phone] 05/05/2024 1:15 PM CDT Ancillary Procedure Department of Ophthalmology in [place], [place] [address] [place] [phone] Prakash Graham M.D. [address] [place] [phone] 05/05/2024 1:45 PM CDT Office Visit Department of Ophthalmology in [place], [place] [address] [place] [phone] Prakash Graham M.D. [address] [place] [phone] 06/02/2024 8:15 AM CDT Ancillary Procedure Department of Ophthalmology in [place], [place] [address] [place] [phone] Prakash Graham M.D. [address] [place] [phone] 06/02/2024 8:45 AM CDT Ancillary Procedure Department of Ophthalmology in [place], [place] [address] [place] [phone] Prakash Graham M.D. [address] [place] [phone] 06/02/2024 9:00 AM CDT Office Visit Department of Ophthalmology in [place], [place] [address] [place] [phone] Prakash Graham M.D. [address] [place] [phone] Scheduled Procedures Name Priority Associated Diagnoses Date/Ti [...] Right documented in this encounter Care Teams Breaker Off Relationship Specialty Start Date End Date Elsewhere, Pcp PCP - General Internal Medicine 05/29/19 documented as of this encounter
--- OUTSIDE RECORDS SUMMARY | 2024-04-24 08:54 | XMS_ITS | Encounter Summary ---
Author Organization [facility] Address [address] [place] [address] Care Team Providers Care Rn Procedure Name Role Phone Elsewhere, Pcp Primary Care [...] Recorded In the past 12 months has [employer] electric, gas, oil, or water company [...] How often do you attend jewish or jainism serv ices? Never 06/27/2020 Do [...] Somewhat hard 06/27/2020 [facility] - [facility] Stress Questionnaire Answer Date [...] 11:45 AM CDT Hospital Encounter [facility] [address] [place] [phone] Prakash Graham M.D. [address] [place] [phone] 04/27/2024 11:45 AM CDT - 04/27/2024 2:42 PM CDT Surgery [facility] OR [address] [place] [phone] Prakash Graham M.D. [address] [place] [phone] VITRECTOMY, PARS PLANA 25 GAUGE, MEMBRANE PEEL, SILICONE OIL, SCLERAL BUCKLE, ALL ASSOCIATED PROCEDURES RIGHT EYE. 04/28/2024 8:00 AM CDT Office Visit Department of Ophthalmology in [address] [phone] Prakash Graham M.D. [address] [place] [phone] 05/05/2024 1:15 PM CDT Ancillary Procedure Department of Ophthalmology in [place], [place] [address] [place] [phone] Prakash Graham M.D. [address] [place] [phone] 05/05/2024 1:45 PM CDT Office Visit Department of Ophthalmology in [place], [place] [address] [place] [phone] Prakash Graham M.D. [address] [place] [phone] 06/02/2024 8:15 AM CDT Ancillary Procedure Department of Ophthalmology in [place], [place] [address] [place] [phone] Prakash Graham M.D. [address] [place] [phone] 06/02/2024 8:45 AM CDT Ancillary Procedure Department of Ophthalmology in [place], [place] [address] [place] [phone] Prakash Graham M.D. [address] [place] [phone] 06/02/2024 9:00 AM CDT Office Visit Department of Ophthalmology in [place], [place] [address] [place] [phone] Prakash Graham M.D. [address] [place] [phone] Scheduled Procedures Name Priority Associated Diagnoses Date/Ti [...] on filedocumented in this encounter Care Teams Rn Procedure Relationship Specialty Start Date End Date Elsewhere, Pcp PCP - General Internal Medicine 05/29/19 documented as of this encounter
--- OUTSIDE RECORDS SUMMARY | 2024-04-24 08:54 | XMS_ITS | Encounter Summary ---
Author Organization [facility] [place] [facility] Address [address] [place] [address] Care Team Providers Care Pulper Tender Name Role Phone Elsewhere, Pcp Primary Care Provider Unavailabl e Reason for Visit * Outpatient (Routine) - Closed Specialty Diagnoses / Procedures Referred By Contmuriel t Referred To Contact Neurology Piter Baez M.D. [address] [place] [address] [facility] Referral ID Status Reason Start Date Expiration Date Visits Re quested Visits Authorized [id number] Closed 02/20/2024 08/21/2025 1 1 Encounter Details Date Type Department Care Team (Latest Contact Info) Description 02/25/2024 4:30 PM CDT Telemedicine Department of Neurology in [place], [place] [address] [place] [phone] Piter Baez M.D. [address] [place] [phone] Posterior Reversible Encephalopathy Syndrome (Primary [...] How often do you attend hoahaoism or latter-day serv ices? Never 06/27/2020 Do [...] medical care, and heating? Somewhat hard 06/27/2020 [facility] [place] of Occupat ional Health - Occupational Stress [...] your living situation today? I have a [facility] place to live 11/05/2023 Education Answer [...] 11:45 AM CDT Hospital Encounter [facility] [place] [phone] Prakash Graham M.D. [address] [place] [phone] 04/27/2024 11:45 AM CDT - 04/27/2024 2:42 PM CDT [facility] [place] [phone] Prakash Graham M.D. [address] [place] [phone] VITRECTOMY, PARS PLANA 25 GAUGE, MEMBRANE PEEL, SILICONE OIL, SCLERAL BUCKLE, ALL ASSOCIATED PROCEDURES RIGHT EYE. 04/28/2024 8:00 AM CDT Office Visit Department of Ophthalmology in [place], [place] [address] [place] [phone] Prakash Graham M.D. [address] [place] [phone] 05/05/2024 1:15 PM CDT Ancillary Procedure Department of Ophthalmology in [place], [place] [address] [place] [phone] Prakash Graham M.D. [address] [place] [phone] 05/05/2024 1:45 PM CDT Office Visit Department of Ophthalmology in [place], [place] [address] [place] [phone] Prakash Graham M.D. [address] [place] [phone] 06/02/2024 8:15 AM CDT Ancillary Procedure Department of Ophthalmology in [place], [place] [address] [place] [phone] Prakash Graham M.D. [address] [place] [phone] 06/02/2024 8:45 AM CDT Ancillary Procedure Department of Ophthalmology in [place], [place] [address] [place] [phone] Prakash Graham M.D. [address] [place] [phone] 06/02/2024 9:00 AM CDT Office Visit Department of Ophthalmology in [place], [place] [address] [place] [phone] Prakash Graham M.D. [address] [place] [phone] Scheduled Procedures Name Priority Associated Diagnoses Date/Ti me VITRECTOMY - PARS PLANA 25 GAUGE Panuveitis Right Necrosis Retinal Acute Right 04/27/2024 11:45 AM CDT SCLERAL BUCKLING Panuveitis Right Necrosis Retinal Acute Right 04/27/2024 11:45 AM CDT documented as of this encounter Visit Diagnoses Diagnosis Posterior Reversible Encephalopathy Syndrome- Primary Panuveitis Right Necrosis Retinal Acute Right documented in this encounter Care Teams Pulper Tender Relationship Specialty Start Date End Date Elsewhere, Pcp PCP - General Internal Medicine 05/29/19 documented as of this encounter
--- OUTSIDE RECORDS SUMMARY | 2024-04-24 08:54 | XMS_ITS | Encounter Summary ---
Author Organization [facility] Address [address] [place] [address] Care Team Providers Care Blast Furnace Blower Name Role Phone Elsewhere, Pcp Primary Care Provider Unavailabl e Encounter Details Date Type Department Care Team (Latest Contact Info) Description 03/11/2024 Clinical Communication Department of Ophthalmology in [place], [place] [address] [place] [address] Kenya Garza M.D. [address] [place] [address] Social History Tobacco Use Types Packs/Day Years Used Date Smoking Tobacco: Light Smoker Cigarettes 0.5 44.2 Started: 02/26/1980 Smokeless Tobacco: Never Comments:On again off again Alcohol Use Standard Drinks/Week Comments Yes 0 (1 standard drink = 0.6 oz pur e alcohol) [facility] Utilities Answer Date Recorded In the past 12 months has [employer], gas, oil, or water company threatened [...] How often do you attend nondenominational or caodaism serv ices? Never 06/27/2020 Do [...] medical care, and heating? Somewhat hard 06/27/2020 [facility] [place] of Occupat ional Health - Occupational Stress [...] living situation today? I have a [facility] place to live 11/05/2023 Education Answer [...] 11:45 AM CDT Hospital Encounter [facility] [place] [phone] Prakash Graham M.D. [address] [place] [phone] 04/27/2024 11:45 AM CDT - 04/27/2024 2:42 PM CDT Surgery [facility] [address] [place] [phone] Prakash Graham M.D. [address] [place] [phone] VITRECTOMY, PARS PLANA 25 GAUGE, MEMBRANE PEEL, SILICONE OIL, SCLERAL BUCKLE, ALL ASSOCIATED PROCEDURES RIGHT EYE. 04/28/2024 8:00 AM CDT Office Visit Department of Ophthalmology in [place], [place] [address] [place] [phone] Prakash Graham M.D. [address] [place] [phone] 05/05/2024 1:15 PM CDT Ancillary Procedure Department of Ophthalmology in [place], [place] [address] [place] [phone] Prakash Graham M.D. [address] [place] [phone] 05/05/2024 1:45 PM CDT Office Visit Department of Ophthalmology in [place], [place] [address] [place] [phone] Prakash Graham M.D. [address] [place] [phone] 06/02/2024 8:15 AM CDT Ancillary Procedure Department of Ophthalmology in [place], [place] [address] [place] [phone] Prakash Graham M.D. [address] [place] [phone] 06/02/2024 8:45 AM CDT Ancillary Procedure Department of Ophthalmology in [place], [place] [address] [place] [phone] Prakash Graham M.D. [address] [place] [phone] 06/02/2024 9:00 AM CDT Office Visit Department of Ophthalmology in [place], [place] [address] [place] [phone] Prakash Graham M.D. [address] [place] [phone] Scheduled Procedures Name Priority Associated Diagnoses Date/Ti me VITRECTOMY - PARS PLANA 25 GAUGE Panuveitis Right Necrosis Retinal Acute Right 04/27/2024 11:45 AM CDT SCLERAL BUCKLING Panuveitis Right Necrosis Retinal Acute Right 04/27/2024 11:45 AM CDT documented as of this encounter Visit Diagnoses Not on filedocumented in this encounter Care Teams Blast Furnace Blower Relationship Specialty Start Date End Date Elsewhere, Pcp PCP - General Internal Medicine 05/29/19 documented as of this encounter
--- OUTSIDE RECORDS SUMMARY | 2024-04-24 08:54 | XMS_ITS | Encounter Summary ---
Author Organization [facility] Address [address] [place] [address] Care Team Providers Care Membership Administrator Name Role Phone Elsewhere, Pcp Primary Care Provider Unavailabl e Reason for Referral * MRI/CAT/PET Scan (Routine) - Closed Specialty Diagnoses / Procedures Referred By Contac t Referred To Contact Radiology Diagnoses Posterior Reversible Encephalopathy Syndrome Procedures MR Brain without and with IV Contrast Piter Baez M.D. [address] [place] [phone] [facility] Referral ID Status Reason Start Date Expiration Date Visits Re quested Visits Authorized [id number] Closed 02/03/2024 10/27/2024 1 1 Reason for Visit * MRI/CAT/PET Scan (Routine) - Closed Specialty Diagnoses / Procedures Referred By Contac t Referred To Contact Radiology Diagnoses Posterior Reversible Encephalopathy Syndrome Procedures MR Brain without and with IV Contrast Piter Baez M.D. [address] [place] [phone] [facility] Referral ID Status Reason Start Date Expiration Date Visits Re quested Visits Authorized [id number] Closed 02/03/2024 10/27/2024 1 1 Encounter Details Date Type Department Care Team (Latest Contact Info) Description 02/20/2024 3:05 PM CDT - 02/20/2024 11:59 PM CDT Hospital Encounter Department of Radiology, [facility] in [place], [place] [address] [place] [address] Piter Baez M.D. [address] [place] [address] Posterior Reversible Encephalopathy Syndrome Discharge Disposition: Home or Self Care Social History Tobacco Use Types Packs/Day Years Used Date Smoking Tobacco: Light Smoker Cigarettes 0.5 44.2 Started: 02/26/1980 Smokeless Tobacco: Never Comments:On again off again Alcohol Use Standard Drinks/Week Comments Yes 0 (1 standard drink = 0.6 oz pur e alcohol) [facility] Utilities Answer Date Recorded In [...] Never 06/27/2020 How often do you attend episcopal or confucianist serv ices? Never 06/27/2020 Do you belong to any clubs o r organizations such as episcopal groups, unions, fraternal or athletic groups, or [...] medical care, and heating? Somewhat hard 06/27/2020 [facility] [place] of Occupat ional Health - Occupational Stress [...] your living situation today? I have a [facility] place to live 11/05/2023 Education [...] Hospital Encounter [facility] [address] [place] [phone] Prakash Graham M.D. [address] [place] [phone] 04/27/2024 11:45 AM CDT - 04/27/2024 2:42 PM CDT Surgery [facility] [address] [place] [phone] Prakash Graham M.D. [address] [place] [phone] VITRECTOMY, PARS PLANA 25 GAUGE, MEMBRANE PEEL, SILICONE OIL, SCLERAL BUCKLE, ALL ASSOCIATED PROCEDURES RIGHT EYE. 04/28/2024 8:00 AM CDT Office Visit Department of Ophthalmology in [place], [place] [address] [place] [phone] Prakash Graham M.D. [address] [place] [phone] 05/05/2024 1:15 PM CDT Ancillary Procedure Department of Ophthalmology in [address] [phone] Prakash Graham M.D. [address] [place] [phone] 05/05/2024 1:45 PM CDT Office Visit Department of Ophthalmology in [address] [phone] Prakash Graham M.D. [address] [place] [phone] 06/02/2024 8:15 AM CDT Ancillary Procedure Department of Ophthalmology in [address] [phone] Prakash Graham M.D. [address] [place] [phone] 06/02/2024 8:45 AM CDT Ancillary Procedure Department of Ophthalmology in [address] [phone] Prakash Graham M.D. [address] [place] [phone] 06/02/2024 9:00 AM CDT Office Visit Department of Ophthalmology in [place], [place] [address] [place] [address] Prakash Graham M.D. [address] [place] [address] Scheduled Procedures Name Priority Associated Diagnoses Date/Ti [...] mL documented in this encounter Care Teams Membership Administrator Relationship Specialty Start Date End Date Elsewhere, Pcp PCP - General Internal Medicine 05/29/19 documented as of this encounter
--- OUTSIDE RECORDS SUMMARY | 2024-04-24 08:54 | XMS_ITS | Encounter Summary ---
Author Organization [facility] Address [address] [place] [address] Care Team Providers Care Supervising Librarian Name Role Phone Elsewhere, Pcp Primary Care Provider Unavailabl e Reason for Referral * Outpatient (Routine) - Closed Specialty Diagnoses / Procedures Referred By Apolinar lopez Referred To Contact Ophthalmology Diagnoses Panuveitis Right Necrosis Retinal Acute Right Kenya Garza M.D. 200 [place] [address] [facility] Referral ID Status Reason Start Date Expiration Date Visits Re quested Visits Authorized [id number] Closed 02/20/2024 08/21/2025 1 1 Reason for Visit * Outpatient (Routine) - Closed Specialty Diagnoses / Procedures Referred By Apolinar lopez Referred To Contact Ophthalmology Diagnoses Panuveitis Right Necrosis Retinal Acute Right Kenya Garza M.D. 200 [place] [address] [facility] Referral ID Status Reason Start Date Expiration Date Visits Re quested Visits Authorized [id number] Closed 01/23/2024 07/24/2025 1 1 Encounter Details Date Type Department Care Team (Latest Contact Info) Description 02/20/2024 11:15 AM CDT Office Visit Department of Ophthalmology in [place], [place] [address] [place] [phone] Kenya Garza M.D. [address] [place] [phone] Panuveitis Right (Primary Dx); Necrosis Retinal Acute [...] has e electric, gas, oil, or water [employer] threatened to shut off services in your home? No 11/05/2023 Social Connection and Isolation Panel [NHANES] A nswer Date Recorded In a typical week, how many times do you talk on the phone with family, friends, or neighbors? Once a week 06/27/2020 How often do you get together with friends or re latives? Never 06/27/2020 How often do you attend congregational or presybeterian serv ices? Never 06/27/2020 Do [...] medical care, and heating? Somewhat hard 06/27/2020 [facility] [place] of Occupat ional Health - Occupational Stress [...] with tobramycin drops without improvement. She saw flight service agent Dr. Daisy Ivy on 10/23/23. 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 In August 2023, she was sent from an infusion center to [place] emergency department where shewas found to have oxygen saturations of 78%. CT imaging showed worsening bilateral ground glass opacities. A CT scan was negative for pulmonary embolism. She was transferred to [facility] for additional pulmonology care. On [...] three times in the past three months: [place] (09/02/23 for hypercalcemiaand acute kidney injury - had CT chest/abdomen/pelvis to assess for malignancy), [place] in [facility] again. Each time she saw her [...] plans to monitor. (Her oncologist is at [facility].) MEDICATIONS Prednisolone every hour while awake [...] shallow retinal detachment. No T sign noted. [facility] Macula OCT of the right [...] membranes. Possible posterior thickening. No T sign. [facility] HSV 2 PCR from anterior [...] 11:45 AM CDT Hospital Encounter [facility] [address] [place] [place] [phone] Prakash Graham M.D. [address] [place] [phone] 04/27/2024 11:45 AM CDT - 04/27/2024 2:42 PM CDT Surgery [facility] [address] [place] [place] [phone] Prakash Graham M.D. [address] [place] [phone] VITRECTOMY, PARS PLANA 25 GAUGE, MEMBRANE PEEL, SILICONE OIL, SCLERAL BUCKLE, ALL ASSOCIATED PROCEDURES RIGHT EYE. 04/28/2024 8:00 AM CDT Office Visit Department of Ophthalmology in [place], [place] [address] [place] [phone] Prakash Graham M.D. [address] [place] [phone] 05/05/2024 1:15 PM CDT Ancillary Procedure Department of Ophthalmology in [place], [place] [address] [place] [phone] Prakash Graham M.D. [address] [place] [phone] 05/05/2024 1:45 PM CDT Office Visit Department of Ophthalmology in [place], [place] [address] [place] [phone] Prakash Graham M.D. [address] [place] [phone] 06/02/2024 8:15 AM CDT Ancillary Procedure Department of Ophthalmology in [place], [place] [address] [place] [address] Prakash Graham M.D. [address] [place] [phone] 06/02/2024 8:45 AM CDT Ancillary Procedure Department of Ophthalmology in [place], [place] [address] [place] [phone] Prakash Graham M.D. [address] [place] [phone] 06/02/2024 9:00 AM CDT Office Visit Department of Ophthalmology in [place], [place] [address] [place] [phone] Prakash Graham M.D. [address] [place] [phone] Scheduled Procedures Name Priority Associated Diagnoses Date/Ti nv VITRECTOMY - PARS PLANA 25 GAUGE Panuveitis [...] Garza M.D. OPH ULTRASOUND Performing Organization Address [facility]/ZIP Co de Phone Number OPHTHALMOLGY NON-IMAGING ORDERS [...] possible ciliochoroidal effusion. JULIAN Kenya Garza M.D. 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
--- OUTSIDE RECORDS SUMMARY | 2024-04-24 08:54 | XMS_ITS | Encounter Summary ---
Author Organization [facility] Address [address] [place] [address] Care Team Providers Care Health Center Associate Name Role Phone Elsewhere, Pcp Primary Care Provider Unavailabl e Reason for Referral * Outpatient (Routine) - Closed Specialty Diagnoses / Procedures Referred By Apolinar lopez Referred To Contact Ophthalmology Diagnoses Panuveitis Right Necrosis Retinal Acute Right Kenya Garza M.D. [address] [place] [phone] [facility] Referral ID Status Reason Start Date Expiration Date Visits Re quested Visits Authorized [id number] Closed 01/23/2024 07/24/2025 1 1 Reason for Visit * Outpatient (Routine) - Closed Specialty Diagnoses / Procedures Referred By Apolinar lopez Referred To Contact Ophthalmology Kenya Garza M.D. [address] [place] [phone] [facility] Referral ID Status Reason Start Date Expiration Date Visits Re quested Visits Authorized [id number] Closed 01/01/2024 07/02/2025 1 1 Encounter Details Date Type Department Care Team (Latest Contact Info) Description 01/23/2024 12:00 PM CDT Office Visit Department of Ophthalmology in [place], [place] [address] [place] [phone] Kenya Garza M.D. [address] [place] [phone] Panuveitis Right (Primary Dx); Necrosis Retinal Acute [...] How often do you attend hoahaoism or protestant serv ices? Never 06/27/2020 Do [...] care, and heating? Somewhat hard 06/27/2020 [facility] [place] of Occupat ional Health - Occupational Stress [...] 02/20/24 Call with questions or new symptoms: [phone] documented in this encounter Progress Notes * [...] with tobramycin drops without improvement. She saw title i assistant Dr. Daisy Ivy on 10/23/23. 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 In August 2023, she was sent from an infusion center to [place] emergency department where shewas found to have [...] three times in the past three months: [place] (09/02/23 for hypercalcemiaand acute kidney injury - had CT chest/abdomen/pelvis to assess for malignancy), [place] [facility] again. Each time she saw her oncologist, [...] plans to monitor. (Her oncologist is at [facility].) MEDICATIONS Prednisolone every hour while awake [...] No T sign noted. [facility] Macula OCT of the right [...] thickening. No T sign. [facility] HSV 2 PCR from anterior chamber tap [...] detachment vs subhyaloid opacities. [facility] PLAN: It has been 21 days since [...] detachment vs subhyaloid opacities. 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 [address] [place] [address] 04/27/2024 11:45 AM CDT - 04/27/2024 2:42 PM CDT Surgery [facility] [address] [place] [phone] Prakash Graham M.D. [address] [place] [phone] VITRECTOMY, PARS PLANA 25 GAUGE, MEMBRANE PEEL, SILICONE OIL, SCLERAL BUCKLE, ALL ASSOCIATED PROCEDURES RIGHT EYE. 04/28/2024 8:00 AM CDT Office Visit Department of Ophthalmology in [address] [phone] Prakash Graham M.D. [address] [place] [phone] 05/05/2024 1:15 PM CDT Ancillary Procedure Department of Ophthalmology in [address] [phone] Prakash Graham M.D. [address] [place] [phone] 05/05/2024 1:45 PM CDT Office Visit Department of Ophthalmology in [address] [phone] Prakash Graham M.D. [address] [place] [phone] 06/02/2024 8:15 AM CDT Ancillary Procedure Department of Ophthalmology in [address] [phone] Prakash Graham M.D. [address] [place] [phone] 06/02/2024 8:45 AM CDT Ancillary Procedure Department of Ophthalmology in [address] [phone] Prakash Graham M.D. [address] [place] [phone] 06/02/2024 9:00 AM CDT Office Visit Department of Ophthalmology in [place], [place] [address] [place] [address] Prakash Graham M.D. [address] [place] [address] Scheduled Procedures Name Priority Associated Diagnoses Date/Ti [...] Right documented in this encounter Care Teams Health Center Associate Relationship Specialty Start Date End Date Elsewhere, Pcp PCP - General Internal Medicine 05/29/19 documented as of this encounter
--- OUTSIDE RECORDS SUMMARY | 2024-04-24 08:54 | XMS_ITS | Encounter Summary ---
Author Organization [facility] Address [address] [place] [address] Care Team Providers Care Weighing Station Operator Name Role Phone Elsewhere, Pcp Primary Care Provider Unavailabl e Encounter Details Date Type Department Care Team (Latest Contact Info) Description 02/20/2024 9:50 AM CDT Ancillary Procedure Department of Ophthalmology in [place], [place] [address] [place] [address] Kenya Garza M.D. [address] [place] [address] Panuveitis Right; Necrosis Retinal Acute Right Social History Tobacco Use Types Packs/Day Years Used Date Smoking Tobacco: Light Smoker Cigarettes 0.5 44.2 Started: 02/26/1980 Smokeless Tobacco: Never Comments:On again off again Alcohol Use Standard Drinks/Week Comments Yes 0 (1 standard drink = 0.6 oz pur e alcohol) [facility] Utilities Answer Date Recorded In the past 12 months has [employer], gas, oil, or water [employer] threatened to shut off services in your home? No 11/05/2023 Social Connection and Isolation Panel [NHANES] A nswer Date Recorded In a typical week, how many times do you talk on the phone with family, friends, or neighbors? Once a week 06/27/2020 How often do you get together with friends or re latives? Never 06/27/2020 How often do you attend samaritan or mormonism serv ices? Never 06/27/2020 Do [...] medical care, and heating? Somewhat hard 06/27/2020 [facility] of Occupat ional Health - Occupational Stress [...] 04/27/2024 11:45 AM CDT Hospital Encounter [facility]3] OR [address] [place] [phone] Prakash Graham M.D. [address] [place] [phone] 04/27/2024 11:45 AM CDT - 04/27/2024 2:42 PM CDT Surgery [facility]3] OR [address] [place] [phone] Prakash Graham M.D. [address] [place] [phone] VITRECTOMY, PARS PLANA 25 GAUGE, MEMBRANE PEEL, SILICONE OIL, SCLERAL BUCKLE, ALL ASSOCIATED PROCEDURES RIGHT EYE. 04/28/2024 8:00 AM CDT Office Visit Department of Ophthalmology in [place], [place] [address] [place] [phone] Prakash Graham M.D. [address] [place] [phone] 05/05/2024 1:15 PM CDT Ancillary Procedure Department of Ophthalmology in [place], [place] [address] [place] [phone] Prakash Graham M.D. [address] [place] [phone] 05/05/2024 1:45 PM CDT Office Visit Department of Ophthalmology in [place], [place] [address] [place] [phone] Prakash Graham M.D. [address] [place] [phone] 06/02/2024 8:15 AM CDT Ancillary Procedure Department of Ophthalmology in [place], [place] [address] [place] [phone] Prakash Graham M.D. [address] [place] [phone] 06/02/2024 8:45 AM CDT Ancillary Procedure Department of Ophthalmology in [place], [place] [address] [place] [phone] Prakash Graham M.D. [address] [place] [phone] 06/02/2024 9:00 AM CDT Office Visit Department of Ophthalmology in [address] [phone] Prakash Graham M.D. [address] [place] [phone] Scheduled Procedures Name Priority Associated Diagnoses Date/Ti [...] Right documented in this encounter Care Teams Weighing Station Operator Relationship Specialty Start Date End Date Elsewhere, Pcp PCP - General Internal Medicine 05/29/19 documented as of this encounter
--- OUTSIDE RECORDS SUMMARY | 2024-04-24 08:54 | XMS_ITS | Encounter Summary ---
Author Organization [facility] Address [address] [place] [address] Care Team Providers Care Reconditioner Name Role Phone Elsewhere, Pcp Primary Care [...] 0.6 oz pur e alcohol) [facility] Utilities Answer Date Recorded In the past 12 months has [employer], gas, oil, or water company threatened [...] Never 06/27/2020 How often do you attend holiness or baptism serv ices? Never 06/27/2020 Do you belong to any clubs o r organizations such as holiness groups, unions, fraternal or athletic groups, or [...] and heating? Somewhat hard 06/27/2020 [facility] - Occupational [...] [facility] OR [facility] [place] [phone] Prakash Graham M.D. [address] [place] [phone] 04/27/2024 11:45 AM CDT - 04/27/2024 2:42 PM CDT Surgery RST [facility] OR [address] [place] [phone] Prakash Graham M.D. [address] [place] [phone] VITRECTOMY, PARS PLANA 25 GAUGE, MEMBRANE PEEL, SILICONE OIL, SCLERAL BUCKLE, ALL ASSOCIATED PROCEDURES RIGHT EYE. 04/28/2024 8:00 AM CDT Office Visit Department of Ophthalmology in [address] [phone] Prakash Graham M.D. [address] [place] [phone] 05/05/2024 1:15 PM CDT Ancillary Procedure Department of Ophthalmology in [place], [place] [address] [place] [phone] Prakash Graham M.D. [address] [place] [phone] 05/05/2024 1:45 PM CDT Office Visit Department of Ophthalmology in [place], [place] [address] [place] [phone] Prakash Graham M.D. [address] [place] [phone] 06/02/2024 8:15 AM CDT Ancillary Procedure Department of Ophthalmology in [place], [place] [address] [place] [phone] Prakash Graham M.D. [address] [place] [phone] 06/02/2024 8:45 AM CDT Ancillary Procedure Department of Ophthalmology in [place], [place] [address] [place] [phone] Prakash Graham M.D. [address] [place] [phone] 06/02/2024 9:00 AM CDT Office Visit Department of Ophthalmology in [place], [place] [address] [place] [phone] Prakash Graham M.D. [address] [place] [phone] Scheduled Procedures Name Priority Associated Diagnoses Date/Ti [...] in this encounter Results * Eyes US-Eye [id number] Image Exam (02/20/2024 12:05 AM CDT) Narrative [...] on filedocumented in this encounter Care Teams Reconditioner Relationship Specialty Start Date End Date Elsewhere, Pcp PCP - General Internal Medicine 05/29/19 documented as of this encounter
--- OUTSIDE RECORDS SUMMARY | 2024-04-24 08:54 | XMS_ITS | Encounter Summary ---
Author Organization [facility] Address [address] [place] [address] Care Team Providers Care Sewer Repairer Name Role Phone Elsewhere, Pcp Primary Care Provider Unavailabl e Encounter Details Date Type Department Care Team (Latest Contact Info) Description 03/10/2024 Clinical Communication Department of Ophthalmology in [place], [place] [address] [place] [address] Kenya Garza M.D. [address] [place] [address] Social History Tobacco Use Types Packs/Day Years Used Date Smoking Tobacco: Light Smoker Cigarettes 0.5 44.2 Started: 02/26/1980 Smokeless Tobacco: Never Comments:On again off again Alcohol Use Standard Drinks/Week Comments Yes 0 (1 standard drink = 0.6 oz pur e alcohol) [facility] Utilities Answer Date Recorded In the past 12 months has [employer], gas, oil, or water company threatened to [...] How often do you attend taoist or taoist serv ices? Never 06/27/2020 Do [...] heating? Somewhat hard 06/27/2020 [facility] of Occupat ional Health - Occupational Stress [...] 04/27/2024 11:45 AM CDT Hospital Encounter [facility] OR [facility] [place] [phone] Prakash Graham M.D. [address] [place] [phone] 04/27/2024 11:45 AM CDT - 04/27/2024 2:42 PM CDT Surgery [facility] OR [facility] [address] [place] [phone] Prakash Graham M.D. [address] [place] [phone] VITRECTOMY, PARS PLANA 25 GAUGE, MEMBRANE PEEL, SILICONE OIL, SCLERAL BUCKLE, ALL ASSOCIATED PROCEDURES RIGHT EYE. 04/28/2024 8:00 AM CDT Office Visit Department of Ophthalmology in [place], [place] [address] [place] [phone] Prakash Graham M.D. [address] [place] [phone] 05/05/2024 1:15 PM CDT Ancillary Procedure Department of Ophthalmology in [place], [place] [address] [place] [phone] Prakash Graham M.D. [address] [place] [phone] 05/05/2024 1:45 PM CDT Office Visit Department of Ophthalmology in [place], [place] [address] [place] [phone] Prakash Graham M.D. [address] [place] [phone] 06/02/2024 8:15 AM CDT Ancillary Procedure Department of Ophthalmology in [place], [place] [address] [place] [phone] Prakash Graham M.D. [address] [place] [phone] 06/02/2024 8:45 AM CDT Ancillary Procedure Department of Ophthalmology in [place], [place] [address] [place] [phone] Prakash Graham M.D. [address] [place] [phone] 06/02/2024 9:00 AM CDT Office Visit Department of Ophthalmology in [place], [place] [address] [place] [phone] Prakash Graham M.D. [address] [place] [phone] Scheduled Procedures Name Priority Associated Diagnoses Date/Ti me VITRECTOMY - PARS PLANA 25 GAUGE Panuveitis Right Necrosis Retinal Acute Right 04/27/2024 11:45 AM CDT SCLERAL BUCKLING Panuveitis Right Necrosis Retinal Acute Right 04/27/2024 11:45 AM CDT documented as of this encounter Visit Diagnoses Not on filedocumented in this encounter Care Teams Sewer Repairer Relationship Specialty Start Date End Date Elsewhere, Pcp PCP - General Internal Medicine 05/29/19 documented as of this encounter
--- OUTSIDE RECORDS SUMMARY | 2024-04-24 08:54 | XMS_ITS | Encounter Summary ---
Author Organization [facility] Address [address] [place] [address] Care Team Providers Care Objects Conservator Name Role Phone Elsewhere, Pcp Primary Care Provider Unavailabl e Reason for Referral * Outpatient (Routine) - Closed Specialty Diagnoses / Procedures Referred By Apolinar lopez Referred To Contact Ophthalmology Diagnoses Necrosis Retinal Acute Right Kenya Garza M.D. [address] [place] [phone] [facility] Referral ID Status Reason Start Date Expiration Date Visits Re quested Visits Authorized [id number] Closed 03/13/2024 09/12/2025 1 1 Reason for Visit * Outpatient (Routine) - Closed Specialty Diagnoses / Procedures Referred By Apolinar lopez Referred To Contact Ophthalmology Diagnoses Panuveitis Right Necrosis Retinal Acute Right Kenya Garza M.D. [address] [place] [phone] [facility] Referral ID Status Reason Start Date Expiration Date Visits Re quested Visits Authorized [id number] Closed 02/20/2024 08/21/2025 1 1 Encounter Details Date Type Department Care Team (Latest Contact Info) Description 03/13/2024 11:30 AM CDT Office Visit Department of Ophthalmology in [place], [place] [address] [place] [phone] Kenya Garza M.D. [address] [place] [phone] Necrosis Retinal Acute Right (Primary Dx); Panuveitis Right Social History Tobacco Use Types Packs/Day Years Used Date Smoking Tobacco: Light Smoker Cigarettes 0.5 44.2 Started: 02/26/1980 Smokeless Tobacco: Never Comments:On again off again Alcohol Use Standard Drinks/Week Comments Yes 0 (1 standard drink = 0.6 oz pur e alcohol) [facility] Utilities Answer Date Recorded In the [...] How often do you attend alevism or yarsani serv ices? Never 06/27/2020 Do [...] heating? Somewhat hard 06/27/2020 [facility] Occupat ional Health - Occupational Stress [...] with tobramycin drops without improvement. She saw composite technician Dr. Daisy Ivy on 10/23/23. 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 In August 2023, she was sent from an infusion center to [facility] emergency department where shewas found to have [...] three times in the past three months: [facility] (09/02/23 for hypercalcemiaand acute kidney injury - had CT chest/abdomen/pelvis to assess for malignancy), [place] [facility] again. Each time she saw her [...] plans to monitor. (Her oncologist is at [facility] MEDICATIONS Prednisolone every hour while [...] 04/27/2024 11:45 AM CDT Hospital Encounter R[facility] OR [address] [place] [phone] Prakash Graham M.D. [address] [place] [phone] 04/27/2024 11:45 AM CDT - 04/27/2024 2:42 PM CDT Surgery [facility] OR [address] [place] [phone] Prakash Graham M.D. [address] [place] [phone] VITRECTOMY, PARS PLANA 25 GAUGE, MEMBRANE PEEL, SILICONE OIL, SCLERAL BUCKLE, ALL ASSOCIATED PROCEDURES RIGHT EYE. 04/28/2024 8:00 AM CDT Office Visit Department of Ophthalmology in [place], [place] [address] [place] [phone] Prakash Graham M.D. [address] [place] [phone] 05/05/2024 1:15 PM CDT Ancillary Procedure Department of Ophthalmology in [place], [place] [address] [place] [phone] Prakash Graham M.D. [address] [place] [phone] 05/05/2024 1:45 PM CDT Office Visit Department of Ophthalmology in [place], [place] [address] [place] [phone] Prakash Graham M.D. [address] [place] [phone] 06/02/2024 8:15 AM CDT Ancillary Procedure Department of Ophthalmology in [place], [place] [address] [place] [phone] Prakash Graham M.D. [address] [place] [phone] 06/02/2024 8:45 AM CDT Ancillary Procedure Department of Ophthalmology in [place], [place] [address] [place] [phone] Prakash Graham M.D. [address] [place] [phone] 06/02/2024 9:00 AM CDT Office Visit Department of Ophthalmology in [place], [place] [address] [place] [phone] Prakash Graham M.D. [address] [place] [phone] Scheduled Procedures Name Priority Associated Diagnoses Date/Ti [...] Right documented in this encounter Care Teams Objects Conservator Relationship Specialty Start Date End Date Elsewhere, Pcp PCP - General Internal Medicine 05/29/19 documented as of this encounter
--- OUTSIDE RECORDS SUMMARY | 2024-04-24 08:55 | XMS_ITS | Encounter Summary ---
Author Organization [facility] Address [address] [place] [address] Care Team Providers Care Ripening Room Operator Name Role Phone Elsewhere, Pcp Primary Care Provider Unavailabl e Reason for Referral * Outpatient (Routine) - Closed Specialty Diagnoses / Procedures Referred By Contac t Referred To Contact Cardiovascular Disease Diagnoses Coronary Artery Disease (Unspecified) Katerine Bashir M.D. [address] [place] [address] [facility] Referral ID Status Reason Start Date Expiration Date Visits Re quested Visits Authorized [id number] Closed 02/12/2019 02/12/2020 1 1 Encounter Details Date Type Department Care Team (Late st Contact Info) Description 02/12/2019 [facility] [address] [place] [address] Katerine Bashir M.D. [address] [place] [address] Coronary Artery Disease (Unspecified) (Primary [...] 04/27/2024 11:45 AM CDT Hospital Encounter [facility] OR [address] [place] [phone] Prakash Graham M.D. [address] [place] [phone] 04/27/2024 11:45 AM CDT - 04/27/2024 2:42 PM CDT Surgery [facility] OR [address] [place] [phone] Prakash Graham M.D. [address] [place] [phone] VITRECTOMY, PARS PLANA 25 GAUGE, MEMBRANE PEEL, SILICONE OIL, SCLERAL BUCKLE, ALL ASSOCIATED PROCEDURES RIGHT EYE. 04/28/2024 8:00 AM CDT Office Visit Department of Ophthalmology in [place], [place] [address] [place] [phone] Prakash Graham M.D. [address] [place] [phone] 05/05/2024 1:15 PM CDT Ancillary Procedure Department of Ophthalmology in [place], [place] [address] [place] [phone] Prakash Graham M.D. [address] [place] [phone] 05/05/2024 1:45 PM CDT Office Visit Department of Ophthalmology in [place], [place] [address] [place] [phone] Prakash Graham M.D. [address] [place] [phone] 06/02/2024 8:15 AM CDT Ancillary Procedure Department of Ophthalmology in [place], [place] [address] [place] [phone] Prakash Graham M.D. [address] [place] [phone] 06/02/2024 8:45 AM CDT Ancillary Procedure Department of Ophthalmology in [place], [place] [address] [place] [phone] Prakash Graham M.D. [address] [place] [phone] 06/02/2024 9:00 AM CDT Office Visit Department of Ophthalmology in [place], [place] [address] [place] [phone] Prakash Graham M.D. [address] [place] [phone] Scheduled Procedures Name Priority Associated Diagnoses Date/Ti [...] documented as of this encounter Care Teams Ripening Room Operator Relationship Specialty Start Date End Date Elsewhere, Pcp PCP - General Internal Medicine 05/29/19 documented as of this encounter
--- OUTSIDE RECORDS SUMMARY | 2024-04-24 08:55 | XMS_ITS | Encounter Summary ---
Author Organization [facility] Address [address] [place] [address] Care Team Providers Care Dress Fitter Name Role Phone Elsewhere, Pcp Primary Care Provider Unavailabl e Reason for Referral * Outpatient (Routine) - Closed Specialty Diagnoses / Procedures Referred By Apolinar t Referred To Contact Neurology Diagnoses Posterior Reversible Encephalopathy Syndrome Katerine Bashir M.D. [address] [place] [address] [facility] Referral ID Status Reason Start Date Expiration Date Visits Re quested Visits Authorized [id number] Closed 01/20/2024 07/21/2025 1 1 Encounter Details Date Type Department Care Team (Latest Contact Info) Description 01/20/2024 [facility] [address] [place] [address] Katerine Bashir M.D. [address] [place] [address] Posterior Reversible Encephalopathy Syndrome (Primary Dx) Social History Tobacco Use Types Packs/Day Years Used Date Smoking Tobacco: Light Smoker Cigarettes 0.5 44.2 Started: 02/26/1980 Smokeless Tobacco: Never Comments:On again off again Alcohol Use Standard Drinks/Week Comments Yes 0 (1 standard drink = 0.6 oz pur e alcohol) [facility] Utilities Answer Date Recorded In the past 12 months has [employer], gas, oil, or water [employer] threatened to shut off services in your home? No 11/05/2023 Social Connection and Isolation Panel [NHANES] A nswer Date Recorded In a typical week, how many times do you talk on the phone with family, friends, or neighbors? Once a week 06/27/2020 How often do you get together with friends or re latives? Never 06/27/2020 How often do you attend congregational or orthodox serv ices? Never 06/27/2020 Do [...] medical care, and heating? Somewhat hard 06/27/2020 [facility] Occupat ional Health - Occupational [...] your living situation today? [facility] place to live 11/05/2023 Education Answer [...] 04/27/2024 11:45 AM CDT Hospital Encounter [facility] OR [address] [place] [phone] Prakash Graham M.D. [address] [place] [phone] 04/27/2024 11:45 AM CDT - 04/27/2024 2:42 PM CDT Surgery [facility] OR [address] [place] [phone] Prakash Graham M.D. [address] [place] [phone] VITRECTOMY, PARS PLANA 25 GAUGE, MEMBRANE PEEL, SILICONE OIL, SCLERAL BUCKLE, ALL ASSOCIATED PROCEDURES RIGHT EYE. 04/28/2024 8:00 AM CDT Office Visit Department of Ophthalmology in [place], [place] [address] [place] [phone] Prakash Graham M.D. [address] [place] [phone] 05/05/2024 1:15 PM CDT Ancillary Procedure Department of Ophthalmology in [place], [place] [address] [place] [phone] Prakash Graham M.D. [address] [place] [phone] 05/05/2024 1:45 PM CDT Office Visit Department of Ophthalmology in [place], [place] [address] [place] [phone] Prakash Graham M.D. [address] [place] [phone] 06/02/2024 8:15 AM CDT Ancillary Procedure Department of Ophthalmology in [place], [place] [address] [place] [phone] Prakash Graham M.D. [address] [place] [phone] 06/02/2024 8:45 AM CDT Ancillary Procedure Department of Ophthalmology in [place], [place] [address] [place] [phone] Prakash Graham M.D. [address] [place] [phone] 06/02/2024 9:00 AM CDT Office Visit Department of Ophthalmology in [place], [place] [address] [place] [phone] Prakash Graham M.D. [address] [place] [phone] Scheduled Procedures Name Priority Associated Diagnoses Date/Ti [...] Right documented in this encounter Care Teams Dress Fitter Relationship Specialty Start Date End Date Elsewhere, Pcp PCP - General Internal Medicine 05/29/19 documented as of this encounter
--- OUTSIDE RECORDS SUMMARY | 2024-04-24 08:55 | XMS_ITS | Clinical Summary ---
Author Organization [facility] Address [place], [place] [address] Care Team Providers Care Clinical Data Analyst Name Role Phone Easton Mccormick MD Unavailable [phone] Katerine Bashir MD Primary Care Provider + Allergies Active Allergy Reactions Criticality Noted Date Comments Wheeler Yefri Itching 09/11/2023 Medications Medication Sig Dispensed Refills Start Date End Date Status aspirin (ECOTRIN) 81 mg enteric coated tabletIndications:Non -ST elevation [place] (NSTEMI) (HC) Take 1 tablet by mouth once daily with a meal. 0 11/30/2015 Active atorvastatin (LIPITOR) 40 mg tabletIndications:Cor onary artery disease, angina presence unspecified, unspecified vessel or lesion type, unspecified whether [place] or transplanted heart Take 1 tablet by [...] ACP (advance care planning) 09/11/2023 Non-ST elevation NH (NSTEMI) 11/19/2015 Melanoma in situ 06/15/2014 Overview: Right lower anterior leg and upper right eyelid. 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 Morbid obesity 04/10/2010 Diabetes mellitus, type 2 HTN (hypertension) CAD (coronary artery disease) Hyperlipidemia LDL goal <70 Encounters Date Type Department Care Team Description 01/23/2024 Telephone [facility] [address] [place] [address] Audrey Givens, UMM Appointment (Imaging and follow up with SENIOR IOS DEVELOPER ) from Last 3 Months Immunizations Name Administration [...] SCREEN FFDM (IA) Routine 10/04/2016 9:00 AM DATA COLLECTION TECHNICIAN Visit for screening mammogram LIPID PANEL W REFLEX MEASURED LDL Routine 09/11/2016 9:26 AM DATA COLLECTION TECHNICIAN Hyperlipidemia, unspecified XR DXA BONE DENSITY 2 SITES AXIAL Routine 08/18/2015 9:25 AM CDT Screening for osteoporosis from Last 3 Months or Most Recently Relevant to Health Maintenance Results * XR MAMMO BILAT SCREEN FFDM (10/04/2016 9:00 AM DATA COLLECTION TECHNICIAN) Anatomical Region Laterality Modality BREASTS, Breast Left, Breast Right Bilateral Mammography Narrative 10/04/2016 1:52 PM DATA COLLECTION TECHNICIAN BILATERAL DIGITAL SCREENING MAMMOGRAM WITH COMPUTER-AIDED DETECTION [...] Ltd. [email or web address] ?? / Bailey Collins NP MAMMO * (ABNORMAL) LIPID PANEL W REFLEX MEASURED LDL (09/11/2016 9:26 AM DATA COLLECTION TECHNICIAN) CHOLESTEROL,TOTAL 159 100 - 199 mg/dL 09/11/2016 10:03 AM DATA COLLECTION TECHNICIAN [facility] TRIGLYCERIDES 183(H) <150 mg/dL 09/11/2016 10:03 AM DATA COLLECTION TECHNICIAN [facility] HDL CHOLESTEROL 36(L) >40 mg/dL 6 10:03 AM DATA COLLECTION TECHNICIAN [facility] NON-HDL CHOLESTEROL 123 <145 mg/dl 09/11/2016 10:03 AM [facility] CHOL/HDL RATIO 4.42 <4.50 09/11/2016 10:03 AM DATA COLLECTION TECHNICIAN [facility] LDL CHOLESTEROL 86 <=130 mg/dL 09/11/2016 10:03 AM [facility] PATIENT STATUS NOT GIVEN 09/11/2016 10:03 AM [facility] Blood BLOOD SPECIMEN / Unknown Venipuncture / Unknown 09/11/2016 9:26 AM DATA COLLECTION TECHNICIAN 09/11/2016 9:26 AM DATA COLLECTION TECHNICIAN Bailey Collins NP CHEMISTRY [facility] [address] [place] [address], [place] [phone] * XR DXA BONE DENSITY 2 SITES (08/18/2015 9:25 AM CDT) Anatomical Region Laterality Modality Spine, HIPS, HIPL, HIPR Other Narrative 08/19/2015 6:36 PM CDT Please see scanned document for results of this study. Bailey Collins SENIOR IOS DEVELOPER DEXA from Last 3 Months or Most [...] Comments Code Status Discussion: Discussed Care Teams Clinical Data Analyst Relationship Specialty Start Date End Date Katerine Bashir MD [address] [place] [address] PCP - General Family Practice 12/27/20 Easton Mccormick MD [address] [facility] [address] [place] [address] Cardiovascular Disease 09/26/16
--- OUTSIDE RECORDS SUMMARY | 2024-04-24 08:55 | XMS_ITS | Encounter Summary ---
Author Organization [facility] Address [address] [place] [id number] Care Team Providers Care Company Truck Driver Name Role Phone Elsewhere, Pcp Primary Care Provider Unavailabl e Reason for Visit * Reason Onset Date Comments Outside hospitalization and medications 01/10/20 Encounter Details Date Type Department Care Team (Latest Contact Info) Description 01/10/2024 Clinical Communication Department of Ophthalmology in [place], [place] [address] [place] [phone] Kenya Garza M.D. [address] [place] [phone] Outside hospitalization and medications Social History Tobacco Use Types Packs/Day Years Used Date Smoking Tobacco: Light Smoker Cigarettes 0.5 44.2 Started: 02/26/1980 Smokeless Tobacco: Never Comments:On again off again Alcohol Use Standard Drinks/Week Comments Yes 0 (1 standard drink = 0.6 oz pur e alcohol) [facility] Utilities Answer Date Recorded In the past 12 months has [employer], gas, oil, or water [employer] threatened to shut off services in your home? No 11/05/2023 Social Connection and Isolation Panel [NHANES] A nswer Date Recorded In a typical week, how many times do you talk on the phone with family, friends, or neighbors? Once a week 06/27/2020 How often do you get together with friends or re latives? Never 06/27/2020 How often do you attend temple or [employer]ian serv ices? Never 06/27/2020 Do [...] Encounter [facility] OR [facility] [place] [phone] Prakash Graahm M.D. [address] [place] [phone] 04/27/2024 11:45 AM CDT - 04/27/2024 2:42 PM CDT Surgery [facility] OR [facility] [place] [phone] Prakash Graham M.D. [address] [place] [phone] VITRECTOMY, PARS PLANA 25 GAUGE, MEMBRANE PEEL, SILICONE OIL, SCLERAL BUCKLE, ALL ASSOCIATED PROCEDURES RIGHT EYE. 04/28/2024 8:00 AM CDT Office Visit Department of Ophthalmology in [place], [place] [address] [place] [phone] Prakash Graham M.D. [address] [place] [phone] 05/05/2024 1:15 PM CDT Ancillary Procedure Department of Ophthalmology in [place], [place] [address] [place] [phone] Prakash Graham M.D. [address] [place] [phone] 05/05/2024 1:45 PM CDT Office Visit Department of Ophthalmology in [place], [place] [address] [place] [phone] Prakash Graham M.D. [address] [place] [phone] 06/02/2024 8:15 AM CDT Ancillary Procedure Department of Ophthalmology in [place], [place] [address] [place] [phone] Prakash Graham M.D. [address] [place] [phone] 06/02/2024 8:45 AM CDT Ancillary Procedure Department of Ophthalmology in [place], [place] [address] [place] [phone] Prakash Graham M.D. [address] [place] [phone] 06/02/2024 9:00 AM CDT Office Visit Department of Ophthalmology in [place], [place] [address] [place] [phone] Prakash Graham M.D. [address] [place] [phone] Scheduled Procedures Name Priority Associated Diagnoses Date/Ti me VITRECTOMY - PARS PLANA 25 GAUGE Panuveitis Right Necrosis Retinal Acute Right 04/27/2024 11:45 AM CDT SCLERAL BUCKLING Panuveitis Right Necrosis Retinal Acute Right 04/27/2024 11:45 AM CDT documented as of this encounter Visit Diagnoses Not on filedocumented in this encounter Care Teams Company Truck Driver Relationship Specialty Start Date End Date Elsewhere, Pcp PCP - General Internal Medicine 05/29/19 documented as of this encounter
--- OUTSIDE RECORDS SUMMARY | 2024-04-24 08:55 | XMS_ITS | Encounter Summary ---
Author Organization [facility] Address [address] [place] [address] Care Team Providers Care [employer] Name Role Phone Elsewhere, Pcp Primary Care Provider Unavailabl e Reason for Referral * Outpatient (Routine) - Closed Specialty Diagnoses / Procedures Referred By Contac t Referred To Contact Cardiovascular Disease Diagnoses Coronary Artery Disease (Unspecified) Katerine Bashir M.D. [address] [place] [phone] [facility] Referral ID Status Reason Start Date Expiration Date Visits Re quested Visits Authorized [id number] Closed 02/10/2019 02/10/2020 3 3 Encounter Details Date Type Department Care Team (Late st Contact Info) Description 02/10/2019 [facility] [address] [place] [address] Katerine Bashir M.D. [address] [place] [address] Coronary Artery Disease (Unspecified) (Primary [...] 04/27/2024 11:45 AM CDT Hospital Encounter [facility] [address] [place] [phone] Prakash Graham M.D. [address] [place] [phone] 04/27/2024 11:45 AM CDT - 04/27/2024 2:42 PM CDT Surgery [facility] [address] [place] [phone] Prakash Graham M.D. [address] [place] [phone] VITRECTOMY, PARS PLANA 25 GAUGE, MEMBRANE PEEL, SILICONE OIL, SCLERAL BUCKLE, ALL ASSOCIATED PROCEDURES RIGHT EYE. 04/28/2024 8:00 AM CDT Office Visit Department of Ophthalmology in [place], [place] [address] [place] [phone] Prakash Graham M.D. [address] [place] [phone] 05/05/2024 1:15 PM CDT Ancillary Procedure Department of Ophthalmology in [place], [place] [address] [place] [phone] Prakash Graham M.D. [address] [place] [phone] 05/05/2024 1:45 PM CDT Office Visit Department of Ophthalmology in [place], [place] [address] [place] [phone] Prakash Graham M.D. [address] [place] [phone] 06/02/2024 8:15 AM CDT Ancillary Procedure Department of Ophthalmology in [place], [place] [address] [place] [phone] Prakash Graham M.D. [address] [place] [phone] 06/02/2024 8:45 AM CDT Ancillary Procedure Department of Ophthalmology in [place], [place] [address] [place] [phone] Prakash Graham M.D. [address] [place] [phone] 06/02/2024 9:00 AM CDT Office Visit Department of Ophthalmology in [place], [place] [address] [place] [phone] Prakash Graham M.D. [address] [place] [phone] Scheduled Procedures Name Priority Associated Diagnoses Date/Ti [...] documented as of this encounter Care Teams [employer] Relationship Specialty Start Date End Date Elsewhere, Pcp PCP - General Internal Medicine 05/29/19 documented as of this encounter
[2024-04-24] MEDS: 0.9 % SODIUM CHLORIDE 1000 ml 1,000 ML IV (09:20)
--- NOTE | 2024-04-24 09:24 | CRLHL7_ITS ---
For Patients: As a result of the Century Cures Act, medical imaging exams and procedure reports are released immediately into your electronic medical record. You may view this report before your referring provider. If you have questions, please contact your health care provider. Indication: Headache Technique: CT of the head without contrast. Coronal and sagittal reformats. Bone and soft tissue windows. Comparison: 01/08/2024 CT Findings: No acute intracranial hemorrhage or extra-axial collection. No evidence of acute cortical infarction. No mass effect or midline shift. Normal cerebral volume. The ventricles are normal in size, shape and contour. Symmetric regions of hypoattenuation in the bilateral occipital lobes with without mass effect. The orbital contents are normal. No calvarial fractures. No lytic or sclerotic osseous lesions within the calvarium or skull base. Scalp and other imaged soft tissue structures are normal. Mastoid air cells are clear. Small retention cyst in the left maxillary sinus with secretions. Leftward deviation of the nasal septum. Complete opacification of the left mastoid air cells. Impression: 1. Symmetric regions of hypoattenuation in the bilateral occipital lobes without mass effect. Differential considerations include artifact, chronic infarcts and PRES. Consider further evaluation with MRI. 2. Complete opacification of the left mastoid air cells. Please correlate for acute mastoiditis. 3. Small retention cyst in the left maxillary sinus with secretions. Please note that all CT scans at this facility use dose modulation, iterative reconstruction, and/or weight-based dosing when appropriate to reduce radiation dose to as low as reasonably achievable. Dictated by Easton Cole MD @ 04/24/2024 10:29:33 AM (Electronically Signed)
[2024-04-24 09:26] LABS: Basophils Percent Auto 0.3 % (0.0-3.0); Eosinophils Percent Auto 1.7 % (0.0-7.0); Hematocrit 46.6 % (33.0-51.0); Hemoglobin* 15.3 gm/dL (12.0-16.0); Lymphocytes Percent Auto 48.5 % (20-44); Mean Corpuscular HGB Conc 33 gm/dL (32-36); Mean Corpuscular Hemoglobin 33 pg (26-34); Mean Corpuscular Volume 99 fL (80-100); Monocytes Percent Auto 7.5 % (0.0-11.0); Platelet Count* 89 K/uL (140-440); RDW Coefficient of Variation % 14.4 % (11.5-15.5); Red Blood Count 4.69 m/uL (4.00-5.20); White Blood Count* 17.85 K/uL (4.50-11.00)
[2024-04-24] MEDS: ONDANSETRON 2 MG/ML inj 4 MG IVP ×2 (09:28→17:08)
[2024-04-24] MEDS: KETOROLAC 15 MG/ML inj IVP (09:28)
[2024-04-24] MEDS: dilTIAZem 5 MG/ML inj 20 MG IVP (09:30)
[2024-04-24 09:32] LABS: Slide Review Reflex Yes
[2024-04-24 09:33] LABS: Troponin, Point-of-Care* 0.01 ng/ml (0.01-0.04)
[2024-04-24 09:33] LABS: Slide Review Acceptable Review (Acceptable)
[2024-04-24 09:44] LABS: Chloride* 102 mmol/L (96-114)
[2024-04-24 09:45] LABS: Potassium* 3.6 mmol/L (3.6-5.1); Sodium* 138 mmol/L (135-149)
[2024-04-24 09:47] LABS: Creatinine* 0.6 mg/dL (0.5-1.5); Est. Creatinine Clearance* 51.81; Estimated Glomerular Filt Rate 99 ml/min; Magnesium* 1.5 mg/dL (1.5-2.6)
[2024-04-24 09:48] LABS: Anion Gap 9 mEq/L (7-15); Blood Urea Nitrogen* 18 mg/dL (7-30); Calcium* 9.8 mg/dL (8.4-10.6); Carbon Dioxide* 27 mmol/L (20-32); Glucose* 223 mg/dL (60-115)
[2024-04-24 09:51] LABS: C Reactive Protein* 4.1 mg/dL (0.5-1.0)
[2024-04-24 10:02] LABS: NT Pro B Type NatriureticPept* 1150 pg/mL; Troponin I* < 0.01 ng/mL (0.01-0.04)
[2024-04-24] MEDS: MORPHINE 4 MG/ML INJ IVP (10:25)
[2024-04-24] MEDS: PROMETHAZINE 25 MG/ML INJ 12.5 MG IVP (10:34)
[2024-04-24 10:36] LABS: PCR FLU A Negative PCR FLU A (Negative); PCR FLU B Negative PCR FLU B (Negative); SARS PCR* Negative SARS-CoV-2 (Negative)
[2024-04-24] MEDS: AMLODIPINE 5 MG TABLET PO (11:39)
--- NOTE | 2024-04-24 11:42 | CRLHL7_ITS ---
For Patients: As a result of the Century Cures Act, medical imaging exams and procedure reports are released immediately into your electronic medical record. You may view this report before your referring provider. If you have questions, please contact your health care provider. INDICATION: Headache. TECHNIQUE: Multiplanar multisequence noncontrast MR images of the brain. COMPARISON: CT brain 04/24/2024. FINDINGS: Relatively symmetric, moderate subcortical predominant FLAIR hyperintensity within the occipital lobes. There is mild local mass effect. Small foci of susceptibility at the cortical-subcortical interface of the posterior occipital lobes, most compatible with petechial hemorrhage. Mild diffuse cerebral volume loss. No midline shift or hydrocephalus. Few punctate FLAIR hyperintensities in the supratentorial white matter, typical for minimal chronic microvascular ischemic changes. No pathologic extra-axial fluid collection. No diffusion restriction to suggest acute infarction. The major arterial flow voids at the skull base are preserved. The globes are symmetric. Moderate left maxillary sinus mucosal thickening. Large left and small to moderate right mastoid effusions. Signal abnormality in the left middle ear cavity. IMPRESSION: 1. Relatively symmetric, moderate subcortical predominant FLAIR hyperintensity within the occipital lobes, most compatible with sequelae of posterior reversible encephalopathy syndrome (PRES). There is mild associated petechial hemorrhage. 2. Mild diffuse cerebral volume loss and minimal chronic microvascular ischemic changes. 3. Large left mastoid effusion and signal abnormality in the left middle ear cavity. Dictated by Prakash Courtney MD @ 04/24/2024 1:02:17 PM (Electronically Signed)
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
[2024-04-24] MEDS: 0.9 % SODIUM CHLORIDE 250 ml 250 ML 35 ML IV (16:44)
[2024-04-24] MEDS: ACETAMINOPHEN 325 MG TABLET 975 MG PO (16:54)
--- NOTE | 2024-04-24 17:49 | PC.NURSE ---
Patient arrived on unit at 1440 from the ER via wheelchair and accompanied by . Observation. Patient complains of frontal headache and nausea. Patient is not able to see out of right eye. Patient vomited x1= 125cc. Lack of appetite. Stand by assist with transfers and ambulation. Patient is on tele.
[2024-04-24 18:06] LABS: Appearance Urine Clear (Clear); Bilirubin Urine Negative (Negative); Blood Urine Trace-intact (Negative); Color Urine Yellow (Yellow); Glucose Urine Negative (Negative); Ketones Urine Negative (Negative); Leukocyte Esterase Urine Negative (Negative); Nitrite Urine Negative (Negative); Protein Urine 2+ (Negative); Specific Gravity Urine >= 1.030 (1.000-1.030); Urobilinogen Urine 0.2 (0.2-1.0)
[2024-04-24] MEDS: LABETALOL HCL 5 MG/ML inj IVP (18:10)
[2024-04-24 18:12] LABS: RBC Urine 0-2 (0-2); Squamous Epithelial Cell Urine Few (None-Few); WBC Urine 0-2 (0-5)
[2024-04-24] MEDS: LACTOBACILLUS ACIDOPHILUS 1 TABLET 1 TAB PO (18:12)
[2024-04-24] MEDS: AMOXICILLIN/CLAVULANATE 875 mg/125 mg TABLET PO (18:12)
[2024-04-24] MEDS: ENOXAPARIN 40 MG/0.4 ML INJ SUBCUT (20:26)
[2024-04-24] MEDS: VALACYCLOVIR HCL 500 MG TABLET 1000 MG PO (20:27)
[2024-04-24] MEDS: SODIUM CHLORIDE 0.9 % (FLUSH) 10 ML SYRINGE 5 ML IVF (20:28)
[2024-04-24] MEDS: ATORVASTATIN CALCIUM 40 MG TABLET PO (20:28)
[2024-04-24] MEDS: INSULIN ASPART 100 UNIT/ML SUBCUT (20:29)
[2024-04-25] VITALS (17 sets, daily range): BP systolic 114–175; BP diastolic 57–90; PULSE 59–94; RESP 16–20; TEMP 36.4–38.7; O2SAT 91–95
[2024-04-25] MEDS: ACETAMINOPHEN 325 MG TABLET 975 MG PO (02:41)
--- NOTE | 2024-04-25 04:14 | PC.NURSE ---
Pt rested well this night. Neuroes unremarkable. Pt up IND and stable on feet. Urine dark harry. Pt had fever @ 0230 of 101.7 (oral). Tylenol given came down to 99.9 1 hour later. Tele sinus Arrhythmia with frequent PVCs. Oriented x3. Head ache present but relived with Coke. BP did not require Labetalol.
[2024-04-25 06:51] LABS: Basophils Absolute Auto 0.01 K/uL (0.00-0.30); Basophils Percent Auto 0.1 % (0.0-3.0); Eosinophils Absolute Auto 0.12 K/uL (0.00-0.50); Eosinophils Percent Auto 1.2 % (0.0-7.0); Hematocrit 40.1 % (33.0-51.0); Hemoglobin* 13.2 gm/dL (12.0-16.0); Immature Granulocytes Abs Auto 0.06 K/uL (0.00-0.30); Immature Granulocytes Pct Auto 0.6 %; Lymphocytes Percent Auto 53.2 % (20-44); Mean Corpuscular HGB Conc 33 gm/dL (32-36); Mean Corpuscular Hemoglobin 33 pg (26-34); Mean Corpuscular Volume 101 fL (80-100); Monocytes Percent Auto 6.5 % (0.0-11.0); Neutrophils Percent Auto 38.4 % (42.0-72.0); Platelet Count* 73 K/uL (140-440); RDW Coefficient of Variation % 14.4 % (11.5-15.5); Red Blood Count 3.99 m/uL (4.00-5.20); White Blood Count* 10.03 K/uL (4.50-11.00)
[2024-04-25 06:57] LABS: Slide Review Reflex Yes
[2024-04-25 07:09] LABS: Albumin* 3.5 g/dL (3.3-5.0); Chloride* 100 mmol/L (96-114); Sodium* 133 mmol/L (135-149)
[2024-04-25 07:10] LABS: Potassium* 3.4 mmol/L (3.6-5.1)
[2024-04-25 07:12] LABS: Alanine Aminotransferase* 65 U/L (4-35); Alkaline Phosphatase* 75 U/L (40-150); Anion Gap 5 mEq/L (7-15); Aspartate Amino Transferase* 40 U/L (12-35); Bilirubin Total* 1.5 mg/dL (0.1-1.5); Blood Urea Nitrogen* 18 mg/dL (7-30); Carbon Dioxide* 28 mmol/L (20-32); Creatinine* 0.6 mg/dL (0.5-1.5); Est. Creatinine Clearance* 51.81; Estimated Glomerular Filt Rate 99 ml/min; Glucose* 183 mg/dL (60-115)
[2024-04-25 07:13] LABS: Calcium* 8.5 mg/dL (8.4-10.6); Magnesium* 1.8 mg/dL (1.5-2.6)
--- NOTE | 2024-04-25 07:15 | CRLHL7_ITS ---
For Patients: As a result of the Cures Act, medical imaging exams and procedure reports are released immediately into your electronic medical record. You may view this report before your referring provider. If you have questions, please contact your health care provider. INDICATION: Coughing and fever COMPARISON: March 05, 2024 TECHNIQUE: PA and lateral views of the chest were acquired FINDINGS: TUBES AND LINES: None. HEART AND MEDIASTINUM: The heart size is normal. The mediastinal contour appears normal for patient age.Median sternotomy LUNGS AND PLEURAL SPACES: The lungs appear normal.The pleural spaces are unremarkable. OSSEOUS STRUCTURES: Age-appropriate appearance. No acute focal finding. IMPRESSION: No evidence of active pulmonary disease. Findings of a median sternotomy. Dictated by Maxim Fernandez MD @ 04/25/2024 8:53:04 AM (Electronically Signed)
[2024-04-25] MEDS: predniSONE 10 MG TABLET PO (08:17)
[2024-04-25] MEDS: LACTOBACILLUS ACIDOPHILUS 1 TABLET 1 TAB PO ×3 (08:17→17:30)
[2024-04-25 08:26] LABS: Slide Review Acceptable Review (Acceptable)
[2024-04-25] MEDS: AMPICILLIN/SULBACTAM 3 GM in 0.9 % SODIUM CHLORIDE Mini-bag 100 ML IVPB ×3 (08:49→19:49)
[2024-04-25] MEDS: INSULIN ASPART 100 UNIT/ML SUBCUT ×4 (08:51→20:29)
[2024-04-25] MEDS: VALACYCLOVIR HCL 500 MG TABLET 1000 MG PO ×3 (08:55→20:21)
[2024-04-25] MEDS: METOPROLOL SUCCINATE (XL) 100 MG TAB PO (08:55)
[2024-04-25] MEDS: METFORMIN 1,000 MG TABLET 1000 MG PO (08:56)
[2024-04-25] MEDS: AMLODIPINE 5 MG TABLET PO (08:56)
[2024-04-25] MEDS: lisinopriL 20 MG TABLET PO (08:57)
[2024-04-25] MEDS: FLUTICASONE PROPIONATE NASAL 1 SPRAY NOSTRIL-B (08:57)
[2024-04-25] MEDS: SODIUM CHLORIDE 0.9 % (FLUSH) 10 ML SYRINGE 5 ML IVF ×2 (09:08→20:33)
[2024-04-25] MEDS: 0.9 % SODIUM CHLORIDE 250 ml 250 ML 35 ML IV ×2 (13:44→16:18)
--- NOTE | 2024-04-25 15:28 | PM.IMPN1 ---
Progress Note: A&P Assessment and plan (1) PRES (posterior reversible encephalopathy syndrome): Problem details: - presented with symptoms of headache and vision complaints on 04/24/24, MRI findings c/w PRES - first episode December 2023 (intubated here, sent to [facility]) - sees Dr. Baez with Neurology at [facility] (last visit January 2024) - monitor closely, neuro checks, SBP <160 with home medications and prn Labetalol - 04/25/2024: Slowly improving Status: Acute (2) Paroxysmal atrial fibrillation: Problem details: - no history of this, noted in ER on 04/24, spontaneously converted to sinus rhythm - follow on telemetry, deferring full dose anticoagulation at this time given PRES and other current comorbidities - TTE ordered with preliminary echo suggesting mild left ventricular hypertrophy with normal ejection fraction of 34%. Await final report. Status: Acute (3) Acute sinusitis: Problem details: - noted on MRI (seen previously as well, but patient now notes L ear pain/pressure), no ttp over mastoid -was started on oral Augmentin (+ probiotics), Flonase. Will switch from Augmentin to Unasyn. Blood cultures obtained prior to initiation of Unasyn. Status: Acute (4) Herpes zoster anterior uveitis: Problem details: - with history of R panuveitis and R retinal necrosis - follows with [facility] (Dr. Graham), on 10mg of Prednisone as an outpatient, also taking Valtrex thrice daily Status: Chronic (5) Type 2 diabetes mellitus: Problem details: - noninsulin dependent, on Metformin at HS - last A1C 7.7 on 01/20/24 - Accuchecks and SSI ordered Status: Chronic (6) Lymphoma, small lymphocytic: Problem details: - Followed by Dr. Pastrana of Oncology for CLL/SLL management - no treatment currently Status: Chronic (7) Hypogammaglobulinemia: Problem details: - followed by Dr. Pastrana - had IVIG infusion in early March Status: Acute (8) Fever: Problem details: -etiology still not determined. D/Dx: acute sinusitis, L otitis media, Acute/chronic L mastoiditis, lymphoma, etc. Status: Acute Plan 1. Reviewed impression and plans with patient 2. Answered her questions likes 9 minutes 3 patient agreeable Time Spent With Patient Total time spent: 45 Subjective Date Seen: 04/25/24 Interval history: Alexanrda Dixon is a 68 year old female with multiple comorbidities who presented to the hospital with her this morning for concerns of headache and visual complaints. First noted symptoms early this morning. Worried given a history of PRES requiring intubation and ICU stay at [facility] in December 2023. She also had an episode of diarrhea and vomiting x1 this morning (nonbloody). Had not eaten anything out of the ordinary in the last 24 hours, has not been ill. Notes that overnight, she had drenching night sweats, no known objective fever. ER Course and Findings: - WBC 17 with PMN predominance - presented BP 197/111 - rate-limited episode of atrial fibrillation (noted on EKG), spontaneously covered back to SR - CT head obtained which noted hypoattenuation of bilateral occipital lobes concerning for PRES, opacification of left mastoid air cells - MRI then obtained exhibiting subcortical FLAIR hyperintensity in occipital lobes compatible with PRES syndrome and mild associated petechial hemorrhage - received labetalol IV x1, diltiazem IV x1, ketorolac IV x1 with improvement in blood pressure - ER physician reviewed case with Dr. Fitzgerald of Neurology who recommends admission, monitoring. Goal SBP <160 Patient has been seen by Dr. Piter Baez of [facility]rology for her PRES. Last visit with him was in January, and he noted that she had made a full neurologic recovery. 04/25/2024: She is slightly improved. Headache improved. Has chronic vision loss in right eye. Left eye vision is slowly improving although still altered and blurry. Appetite improving. Exam Narrative: Exam Narrative: Examine her in her hospital room. She is sitting in recliner at bedside. Appears comfortable and in no acute distress. Alert and oriented to self, place, time, situation. Friendly, articulate, cooperative. No focal motor neurologic deficits. Poor to no vision in right eye. Some vision in the left eye although not back to her baseline. Lungs are clear to auscultation. Heart tones with regular rhythm. Abdomen with active bowel sounds, soft, nontender. Extremities without edema. Const: Vital Signs, click to edit/add: Vital Signs - 24 hr 04/24/24 15:40 04/24/24 17:13 04/24/24 17:25 Temperature 98.2 F Pulse Rate 72 Pulse Rate [Pulse Oximeter] 74 76 Respiratory Rate 18 Blood Pressure [Ri ght Arm] 146/71 H Pulse Oximetry 88 Oxygen Delivery Me thod Room Air Oxygen Flow Rate 04/24/24 19:24 04/24/24 21:21 04/24/24 22:14 Temperature 97.9 F Pulse Rate 89 Pulse Rate [Pulse Oximeter] 83 83 Respiratory Rate 16 Blood Pressure [Ri ght Arm] 163/98 H Pulse Oximetry 95 Oxygen Delivery Me thod Room Air Oxygen Flow Rate 04/24/24 22:26 04/24/24 22:42 04/25/24 02:36 Temperature 98.2 F 101.7 F H Pulse Rate Pulse Rate [Pulse Oximeter] 89 86 Respiratory Rate 16 16 16 Blood Pressure [Ri ght Arm] 135/77 145/90 H Pulse Oximetry 91 91 91 Oxygen Delivery Me thod Room Air Room Air Room Air Oxygen Flow Rate 0 04/25/24 02:38 04/25/24 02:41 04/25/24 03:34 Temperature 101.7 F H 99.9 F H Pulse Rate Pulse Rate [Pulse Oximeter] 86 Respiratory Rate Blood Pressure [Ri ght Arm] Pulse Oximetry Oxygen Delivery Me thod Oxygen Flow Rate 04/25/24 05:37 04/25/24 07:00 04/25/24 07:00 Temperature 98.0 F Pulse Rate Pulse Rate [Pulse Oximeter] 86 77 77 Respiratory Rate 20 20 Blood Pressure [Ri ght Arm] 175/75 H Pulse Oximetry 95 Oxygen Delivery Me thod Room Air Oxygen Flow Rate 04/25/24 07:00 04/25/24 07:00 04/25/24 08:50 Temperature 98.0 F Pulse Rate 78 Pulse Rate [Pulse Oximeter] Respiratory Rate 20 Blood Pressure [Ri ght Arm] Pulse Oximetry 95 Oxygen Delivery Me thod Room Air Oxygen Flow Rate 0 04/25/24 10:00 04/25/24 10:09 04/25/24 11:00 Temperature 98.7 F Pulse Rate Pulse Rate [Pulse Oximeter] 59 L 59 L Respiratory Rate 20 Blood Pressure [Ri ght Arm] 114/84 114/84 Pulse Oximetry 95 Oxygen Delivery Me thod Room Air Oxygen Flow Rate 04/25/24 14:00 Temperature Pulse Rate Pulse Rate [Pulse Oximeter] 59 L Respiratory Rate Blood Pressure [Ri ght Arm] Pulse Oximetry Oxygen Delivery Me thod Oxygen Flow Rate Labs Labs: Laboratory Results - last 24 hr 04/24/24 04/25/24 17:45 06:04 WBC 10.03 RBC 3.99 L Hgb 13.2 Hct 40.1 MCV 101 H MCH 33 MCHC 33 RDW Coeff of Shabana 14.4 Plt Count 73 L Neut % (Auto) 38.4 L Lymph % (Auto) 53.2 H [place] % (Auto) 6.5 Eos % (Auto) 1.2 Baso % (Auto) 0.1 Neut # (Auto) 3.90 Lymph # (Auto) 5.30 H [place] # (Auto) 0.70 Eos # (Auto) 0.12 Baso # (Auto) 0.01 Abs Immat Gran (auto) 0.06 Imm/Tot Granulo (auto) 0.6 Diff Slide Review Acceptable Review Sodium 133 L Potassium 3.4 L Chloride 100 Carbon Dioxide 28 Anion Gap 5 L BUN 18 Creatinine 0.6 Estimated Creat Clear 51.81 Estimated GFR 99 Glucose 183 H Calcium 8.5 Magnesium 1.8 Total Bilirubin 1.5 AST 40 H ALT 65 H Alkaline Phosphatase 75 Total Protein 6.0 Albumin 3.5 Urine Color Yellow Urine Appearance Clear Urine pH 7.0 Ur Specific [place] >= 1.030 Urine Protein 2+ A Urine Glucose (UA) Negative Urine Ketones Negative Urine Blood Trace-intact A Urine Nitrite Negative Urine Bilirubin Negative Urine Urobilinogen 0.2 Ur Leukocyte Esterase Negative Urine RBC 0-2 Urine WBC 0-2 Ur Squamous Epith Cells Few Urine Bacteria None Imaging CT scan - head: Attestation: I have reviewed the pertinent imaging results. Radiologist's impression: Impression: 1. Symmetric regions of hypoattenuation in the bilateral occipital lobes without mass effect. Differential considerations include artifact, chronic infarcts and PRES. Consider further evaluation with MRI. 2. Complete opacification of the left mastoid air cells. Please correlate for acute mastoiditis. 3. Small retention cyst in the left maxillary sinus with secretions. MR Brain: Attestation: I have reviewed the pertinent imaging results. Radiologist's impression: IMPRESSION: 1. Relatively symmetric, moderate subcortical predominant FLAIR hyperintensity within the occipital lobes, most compatible with sequelae of posterior reversible encephalopathy syndrome (PRES). There is mild associated petechial hemorrhage. 2. Mild diffuse cerebral volume loss and minimal chronic microvascular ischemic changes. 3. Large left mastoid effusion and signal abnormality in the left middle ear cavity. Chest x-ray: Attestation: I have reviewed the pertinent imaging results. Radiologist's impression: IMPRESSION: No evidence of active pulmonary disease. Findings of a median sternotomy.
--- NOTE | 2024-04-25 17:37 | PC.NURSE ---
Patient VSS. Alert and oriented. Able to ambulate independently in room. Ambulated the halls with PT today and tolerated well. Appetite has increased since yesterday and tolerated a regular diet x3 meals. Still complains of some blurry vision in left eye. Can't see out of right eye. Voiding without complications. Still complains of headache/pressure, especially when they cough.
[2024-04-25] MEDS: ENOXAPARIN 40 MG/0.4 ML INJ SUBCUT (20:21)
[2024-04-25] MEDS: ATORVASTATIN CALCIUM 40 MG TABLET PO (20:23)
[2024-04-26] MEDS: AMPICILLIN/SULBACTAM 3 GM in 0.9 % SODIUM CHLORIDE Mini-bag 100 ML IVPB ×2 (01:50→06:59)
[2024-04-26 01:55] VITALS: PULSE 76
[2024-04-26 01:57] VITALS: BP 124/65; PULSE 76; RESP 18; TEMP 36.5; O2SAT 94
[2024-04-26 06:00] VITALS: PULSE 87
[2024-04-26 07:00] VITALS: BP 141/76; PULSE 87; PULSE 88; RESP 18; TEMP 36.2; O2SAT 97
--- NOTE | 2024-04-26 07:03 | PC.NURSE ---
19-07: pleasant and cooperative. Indep in room. Pt reports better vision in the left eye, she can see the hands on the clock this am. No c/o GUTIERREZ. HR 60s-110s. Tele=Trigeminal PVCs/Arrythmia w/ frequent PVCs. Tele alarm has gone off several times for ?VRun? for 3-5PVCs in a row. Pt asymptomatic, denies heart palpitations. SBP 120s-150s.
[2024-04-26 08:18] LABS: Basophils Absolute Auto 0.02 K/uL (0.00-0.30); Basophils Percent Auto 0.2 % (0.0-3.0); Eosinophils Absolute Auto 0.23 K/uL (0.00-0.50); Eosinophils Percent Auto 2.5 % (0.0-7.0); Hematocrit 39.1 % (33.0-51.0); Hemoglobin* 12.6 gm/dL (12.0-16.0); Immature Granulocytes Abs Auto 0.07 K/uL (0.00-0.30); Immature Granulocytes Pct Auto 0.7 %; Mean Corpuscular HGB Conc 32 gm/dL (32-36); Mean Corpuscular Hemoglobin 33 pg (26-34); Mean Corpuscular Volume 101 fL (80-100); Monocytes Percent Auto 4.6 % (0.0-11.0); Platelet Count* 67 K/uL (140-440); RDW Coefficient of Variation % 14.2 % (11.5-15.5); Red Blood Count 3.86 m/uL (4.00-5.20); White Blood Count* 9.34 K/uL (4.50-11.00)
[2024-04-26 08:24] LABS: Slide Review Reflex No
[2024-04-26 08:29] LABS: Albumin* 3.3 g/dL (3.3-5.0); Chloride* 105 mmol/L (96-114)
[2024-04-26 08:30] LABS: Potassium* 3.4 mmol/L (3.6-5.1); Sodium* 138 mmol/L (135-149)
[2024-04-26 08:32] LABS: Alkaline Phosphatase* 80 U/L (40-150); Anion Gap 5 mEq/L (7-15); Aspartate Amino Transferase* 24 U/L (12-35); Bilirubin Direct* 0.2 mg/dL (0.0-0.5); Bilirubin Total* 1.1 mg/dL (0.1-1.5); Blood Urea Nitrogen* 15 mg/dL (7-30); Carbon Dioxide* 28 mmol/L (20-32); Creatinine* 0.6 mg/dL (0.5-1.5); Est. Creatinine Clearance* 51.81; Estimated Glomerular Filt Rate 99 ml/min; Glucose* 155 mg/dL (60-115); Total Protein* 5.7 g/dL (6.0-8.3)
[2024-04-26 08:33] LABS: Alanine Aminotransferase* 46 U/L (4-35); Calcium* 8.7 mg/dL (8.4-10.6)
[2024-04-26] MEDS: predniSONE 10 MG TABLET PO (09:00)
[2024-04-26] MEDS: VALACYCLOVIR HCL 500 MG TABLET 1000 MG PO (09:00)
[2024-04-26] MEDS: METOPROLOL SUCCINATE (XL) 100 MG TAB PO (09:01)
[2024-04-26] MEDS: METFORMIN 1,000 MG TABLET 1000 MG PO (09:01)
[2024-04-26] MEDS: FLUTICASONE PROPIONATE NASAL 1 SPRAY NOSTRIL-B (09:02)
[2024-04-26] MEDS: AMLODIPINE 5 MG TABLET PO (09:02)
[2024-04-26] MEDS: lisinopriL 20 MG TABLET PO (09:02)
[2024-04-26] MEDS: LACTOBACILLUS ACIDOPHILUS 1 TABLET 1 TAB PO (09:02)
[2024-04-26] MEDS: DIFLUPREDNATE 0.05% EYE-BOTH (09:03)
[2024-04-26 10:00] VITALS: PULSE 87
--- NOTE | 2024-04-26 13:18 | PC.NURSE ---
Discharge instructions explained to patient along with and [id number]. Questions were answered and forms were signed. Saline lock removed in patient's right wrist. Tele removed. Pt escorted to the front entrance via wheelchair by nursing staff.
--- NOTE | 2024-04-28 22:39 | PM.DS1 ---
DS: Providers Provider Date Seen: 04/26/24 Date of admission: 04/24/24 14:41 Primary care physician: Katerine Bashir MD Admitting Clinician: Anderson Saxena MD Consults: 04/24/24 15:17 Consult to Physical Therapy [CONS] Routine Comment: Reason(s) for PT Consult:: Evaluate and Treat Any Restrictions?:: No Restrictions Consult to Mechanism Assembler [CONS] Routine Comment: Reason for Consult:: Discharge Planning Needs 04/24/24 15:21 Consult to Occupational Therapy [CONS] Routine Comment: Reason(s) for OT Consult:: Evaluate and Treat Any Restrictions?:: No Restrictions Attending Physician on discharge: Sukumar Johansen MD Date of Discharge: 04/26/24 DS: Diagnosis Discharge Diagnosis (1) PRES (posterior reversible encephalopathy syndrome): Status: Acute Problem details: - presented with symptoms of headache and vision complaints on 04/24/24, MRI findings c/w PRES - first episode December 2023 (intubated here, sent to [facility]) - sees Dr. Baez with Neurology at [facility] (last visit January 2024) - monitor closely, neuro checks, SBP <160 with home medications and prn Labetalol - 04/25/2024: Slowly improving (2) Paroxysmal atrial fibrillation: Status: Acute Problem details: - no history of this, noted in ER on 04/24, spontaneously converted to sinus rhythm - follow on telemetry, deferring full dose anticoagulation at this time given PRES and other current comorbidities - TTE ordered with preliminary echo suggesting mild left ventricular hypertrophy with normal ejection fraction of 34%. Await final report. (3) Mastoiditis of left side: Status: Acute Problem details: -CT scan of head in 12/2023, 03/2024, and MRI 03/2024 demonstrate left mastoid fluid without bony erosion -Treated with IV Unasyn during hospitalization 03/2024 then switched to levofloxacin orally at time of discharge (4) Acute sinusitis: Status: Acute Problem details: - noted on MRI (seen previously as well, but patient now notes L ear pain/pressure), no ttp over mastoid - was started on oral Augmentin (+ probiotics), Flonase. Will switch from Augmentin to Unasyn. Blood cultures obtained prior to initiation of Unasyn. Switched to oral levofloxacin at time of discharge from hospital on 04/26/2024 (5) Herpes zoster anterior uveitis: Status: Chronic Problem details: - with history of R panuveitis and R retinal necrosis - follows with [facility] (Dr. Graham), on 10mg of Prednisone as an outpatient, also taking Valtrex thrice daily (6) Type 2 diabetes mellitus: Status: Chronic Problem details: - noninsulin dependent, on Metformin at HS - last A1C 7.7 on 01/20/24 - Accuchecks and SSI ordered (7) Lymphoma, small lymphocytic: Status: Chronic Problem details: - Followed by Dr. Pastrana of Oncology for CLL/SLL management - no treatment currently (8) Hypogammaglobulinemia: Status: Acute Problem details: - followed by Dr. Pastrana - had IVIG infusion in early March (9) Fever: Status: Acute Problem details: -etiology still not determined. D/Dx: acute sinusitis, L otitis media, Acute/chronic L mastoiditis, lymphoma, etc. DS: Summary Hospital Course Hospital Course: History of Present Illness: Alexandra Dixon is a 68 year old female with multiple comorbidities who presented to the hospital with her this morning for concerns of headache and visual complaints. First noted symptoms early this morning. Worried given a history of PRES requiring intubation and ICU stay at [facility] in December 2023. She also had an episode of diarrhea and vomiting x1 this morning (nonbloody). Had not eaten anything out of the ordinary in the last 24 hours, has not been ill. Notes that overnight, she had drenching night sweats, no known objective fever. ER Course and Findings: - WBC 17 with PMN predominance - presented BP 197/111 - rate-limited episode of atrial fibrillation (noted on EKG), spontaneously covered back to SR - CT head obtained which noted hypoattenuation of bilateral occipital lobes concerning for PRES, opacification of left mastoid air cells - MRI then obtained exhibiting subcortical FLAIR hyperintensity in occipital lobes compatible with PRES syndrome and mild associated petechial hemorrhage - received labetalol IV x1, diltiazem IV x1, ketorolac IV x1 with improvement in blood pressure - ER physician reviewed case with Dr. Fitzgerald of Neurology who recommends admission, monitoring. Goal SBP <160 Patient has been seen by Dr. Piter Baez of [facility]rology for her PRES. Last visit with him was in January, and he noted that she had made a full neurologic recovery. Histories updated below. 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 Grahma of Ophthalmology on Saturday. She is still on Prednisone 10mg po Qday. PCP is Dr. Mckay berger. Blood pressures improved substantially during hospital stay. As blood pressures improved, her visual changes and headache also slowly resolved. Possible precipitant of PRES may have been the fever that she spike in hospital. Does give history of intermittent night sweats for about 1 week prior to presentation to the hospital. Spiked a fever in hospital up to 101.3. No obvious source on skin, urine, lungs, joints, etc. TMs normal except small effusion on the left. No tenderness over left mastoid. CT and MR of head suggest fluid in left mastoid but no bony erosion, not too different from CT of head in 12/2023. Blood cultures obtained and negative to date. Initially placed on Augmentin for possible sinusitis. Continued to spike a fever so switched to IV Unasyn with elimination of fever. Switched to oral levofloxacin at discharge with follow-up. Status at Discharge Functional status at discharge: independent ambulation Overall status at discharge: patient is progressing back to baseline Time Spent with Patient Time attestation: Total time spent providing and/or coordinating discharge services: Time spent: Greater than 30 minutes Exam Narrative: Exam Narrative: Examine her in her hospital room. She is sitting in recliner at bedside. Appears comfortable and in no acute distress. Alert and oriented to self, place, time, situation. Friendly, articulate, cooperative. No focal motor neurologic deficits. Poor to no vision in right eye - chronic. Some vision in the left eye, much improved but still not back to her baseline. Lungs are clear to auscultation. Heart tones with regular rhythm. Abdomen with active bowel sounds, soft, nontender. Extremities without edema. DS: Data Data Completed and Pending Completed studies during hospitalization: Procedures Introduction of Other Gas into Respiratory Tract, Via Natural or Artificial Opening (03/05/24) Labs on day of discharge: Preliminary micro results at discharge 04/25/24 08:03 Blood Culture - Preliminary Blood NO GROWTH AFTER 72 HOURS 04/25/24 07:58 Blood Culture - Preliminary Blood NO GROWTH AFTER [address] scan - head: Radiologist's impression: 1. Symmetric regions of hypoattenuation in the bilateral occipital lobes without mass effect. Differential considerations include artifact, chronic infarcts and PRES. Consider further evaluation with MRI. 2. Complete opacification of the left mastoid air cells. Please correlate for acute mastoiditis. 3. Small retention cyst in the left maxillary sinus with secretions. MR Brain: Radiologist's impression: 1. Relatively symmetric, moderate subcortical predominant FLAIR hyperintensity within the occipital lobes, most compatible with sequelae of posterior reversible encephalopathy syndrome (PRES). There is mild associated petechial hemorrhage. 2. Mild diffuse cerebral volume loss and minimal chronic microvascular ischemic changes. 3. Large left mastoid effusion and signal abnormality in the left middle ear cavity. Chest x-ray: Radiologist's impression: No acute cardiopulmonary abnormalities. Discharge Plan Discharge Disposition: Home, Self-Care Date of Admission: 04/24/24 14:41 Attending Provider on Discharge: Sukumar Johansen Primary Care Provider: Katerine Bashir Condition: Improved Anticipated Discharge Date/Time: 04/26/24 13:00 Discharge Medications: New levofloxacin 500 mg tablet 500 mg PO DAILY Qty: 8 0RF Continued ascorbic acid (vitamin C) 500 mg tablet,chewable 500 mg PO DAILY valacyclovir 1 gram tablet 1,000 mg PO TID difluprednate 0.05 % drops 1 drp ophthalmic (eye) BID Rx Instructions: start on Day 15 of therapy Biotrue Hydration Boost 0.5 % drops 1 drp ophthalmic (eye) TID albuterol sulfate 90 mcg/actuation HFA aerosol inhaler 2 puff inhalation Q4H PRN (Reason: shortness of breath or wheezing) Qty: 25.5 1RF albuterol sulfate 2.5 mg /3 mL (0.083 %) solution for nebulization 2.5 mg inhalation Q4H PRN (Reason: bronchospasm) Qty: 90 0RF aspirin 81 mg tablet,delayed release (DR/EC) 81 mg PO DAILY fexofenadine [Rosangela Allergy] 180 mg tablet 180 mg PO DAILY metoprolol succinate 100 mg tablet extended release 24 hr 100 mg PO DAILY Qty: 90 3RF atorvastatin 40 mg tablet 40 mg PO HS Qty: 90 3RF fluticasone propionate 50 mcg/actuation spray,suspension 1 spray intranasal DAILY PRN Rx Instructions: administer into each nostril Anoro Ellipta 62.5-25 mcg/actuation blister with device 1 inh inhalation DAILY lisinopril 20 mg tablet 20 mg PO DAILY amlodipine 5 mg tablet 5 mg PO DAILY metformin 1,000 mg tablet 1,000 mg PO DAILY nitroglycerin 0.4 mg tablet, sublingual 0.4 mg sublingual Q5-15M PRN (Reason: chest pain) Qty: 30 0RF Rx Instructions: PRN CHEST PAIN No Action prednisone 10 mg tablet 10 mg PO QDAY amoxicillin-pot clavulanate [Augmentin] 500-125 mg tablet 1 tab PO BID Qty: 14 0RF Discharge Orders: Discharge Order (Routine); Ordered 04/26/24 Ordered By: Sukumar Johansen Patient Education: Levofloxacin (By mouth), Acute Headache (DC), Fluid In The Ear (Serous Otitis Media) (GEN) Additional Instructions: 1. Complete full 9-day course of levofloxaxin oral antibiotic. 2. Continue with routine and as needed follow-up with Dr. Bashir and your oncologist. Activity Level: Activity as Tolerated Discharge Diet: Heart Healthy (2 gm sodium, low fat) Follow Up Appointments: Katerine Bashir MD [Primary Care Provider] - 04/28/24 10:45 am ([facility] for follow-up.) Forms: Distra Info Instructions
== END 2024-04-26 13:00 | disposition home or self-care (01) ==
LOC: ED 14:07 → MEDSURG 14:41
PROVIDERS: Family Medicine; Internal Medicine; Admitting Provider Family Medicine; Emergency Provider Family Medicine; PCP Family Medicine; Visit Provider Family Medicine
DX: H70.92 Unspecified mastoiditis, left ear (principal); I67.83 Posterior reversible encephalopathy syndrome; I48.0 Paroxysmal atrial fibrillation; J01.90 Acute sinusitis, unspecified; R19.7 Diarrhea, unspecified; D80.1 Nonfamilial hypogammaglobulinemia; B02.32 Zoster iridocyclitis; R11.0 Nausea; R11.10 Vomiting, unspecified; H35.89 Other specified retinal disorders; C83.00 Small cell B-cell lymphoma, unspecified site; R51.9 Headache, unspecified; H92.02 Otalgia, left ear; H54.7 Unspecified visual loss; L12.0 Bullous pemphigoid; R50.9 Fever, unspecified; I10 Essential (primary) hypertension; E11.9 Type 2 diabetes mellitus without complications; Z79.84 Long term (current) use of oral hypoglycemic drugs; Z79.82 Long term (current) use of aspirin; I25.10 Atherosclerotic heart disease of native coronary artery without angina pectoris; J44.9 Chronic obstructive pulmonary disease, unspecified; E78.5 Hyperlipidemia, unspecified; Z91.09 Other allergy status, other than to drugs and biological substances; I25.2 Old myocardial infarction; Z92.89 Personal history of other medical treatment; Z85.828 Personal history of other malignant neoplasm of skin; Z87.891 Personal history of nicotine dependence; Z95.1 Presence of aortocoronary bypass graft; Z95.5 Presence of coronary angioplasty implant and graft; Z98.890 Other specified postprocedural states
CPT/HCPCS: 36415; 70450; 70551; 71046; 80048; 80053; 80076; 81001; 81003; 82962; 83735; 83880; 84484; 85025; 86140; 87040; 87631; 93005; 93306; 96361; 96365; 96366; 96367; 96372; 96375; 97116; 97161; 97165; 99284; 99285; 99291; G0378; A9270; J0295; J1650; J1885; J2270; J2405; J2550; J3475; J7030; J7050; J7512

== ENCOUNTER 2024-05-28 14:44 | Outpatient (CLI) | payer MEDICARE, SELFPAY ==
--- OUTSIDE RECORDS SUMMARY | 2024-05-28 14:46 | XMS_ITS | Clinical Summary ---
Author Organization [facility] Address [address] [place] [address] Care Team Providers Care Clinical Nutritionist Name Role Phone Elsewhere, Pcp Primary Care Provider Unavailabl e Source Comments Patient records contain information from all sites at [facility]. For routine questions regarding patient records, call [phone] during business hours, M-F 8:00 AM - 5:00 PM Central Time. Record requests for emergency care only can be directed to [phone] at any time.[facility] Allergies Active Allergy Reactions Criticality Noted Date Comments Aller Xt-Toomsuba Pollen-Agra Blisters,Itching,Ra sh High 06/21/2020 Methotrexate Other (see comments) High 03/24/2024 Interacted with other medications - and pt reports getting very sick from it. Hospitalized. Medications Medication Sig Dispensed Refills Start Date End Date Status atorvastatin (LIPITOR) 40 mg tablet Take 40 mg by mouth daily. 09/26/2016 Active aspirin (ADULT LOW DOSE ASPIRIN) [address] tablet Take 81 mg by mouth daily. 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 90 tablet 3 03/04/2020 Active albuterol inhaler 06/22/2020 Active ipratropium-albut Jae (DUONEB) 0.5-2.5 mg/3 mL nebulizer solution INHALE ONE VIAL VIA NEBULIZER EVERY 4 HOURS FOR 3 DAYS AND THEN CAN DECREASE TO NEEDED. 06/09/2020 Active umeclidinium-max nteroL (ANORO ELLIPTA) 62.5-25 mcg/actuation inhalerIndication s:Chronic Obstructive Pulmonary Disease (HCC) Inhale 1 puff once daily. 1 each 11 07/06/2020 Active valACYclovir (VALTREX) 1000 mg tablet Take 1 tablet (1,000 mg total) by mouth 3 (three) times a day. 270 tablet 1 01/23/2024 Active predniSONE (DELTASONE) 5 mg tablet Take 2 tablets (10 mg total) by mouth daily. Take the entire dose in the AM with food 60 tablet 1 01/23/2024 Active lisinopriL (PRINIVIL,ZESTRIL ) 20 mg tablet Take 20 mg by mouth daily. 01/23/2024 Active amLODIPine (NORVASC) 5 mg tablet Take 5 mg by mouth daily. Active fexofenadine (DINAH) 180 mg tablet Take 180 mg by mouth daily. Active magnesium oxide (MAG-OX) 400 mg (241.3 mg magnesium) tablet Take 400 mg by mouth daily. Active metFORMIN (GLUCOPHAGE) 1,000 mg tablet Take 1,000 mg by mouth daily. 01/23/2024 Active nitroglycerin (NITROSTAT) 0.4 mg SL tablet [...] when you start difluprednate 5 mL 3 04/16/2024 Active predniSONE (DELTASONE) 10 mg tablet TAKE 4 TABLETS (40 MG TOTAL) BY MOUTH DAILY FOR 7 DAYS, THEN 3 TABLETS (30 MG TOTAL) DAILY FOR 7 DAYS, THEN 2 TABLETS (20 MG TOTAL) DAILY FOR 7 DAYS, THEN 1 TABLET (10 MG TOTAL) DAILY FOR 7 DAYS. 70 tablet 04/01/2024 Hospital, Clinic, or Other Facility Administered Medication Ordered Dose Route Frequency Start Date End Date Status ganciclovir intraocular injection 2,000 mcg (CYTOVENE)Indications :Uveitis 2000 mcg vtre As needed 11/05/2023 05/16/2024 Discontinued Active Problems Problem Noted Date Diagnosed Date [...] Encounters Date Type Department Care Team Description 05/26/2024 9:45 AM CDT Office Visit Department of Ophthalmology in [place], [place] [address] [place] [phone] Prakash Graham M.D. Necrosis Retinal Acute Right (Primary Dx) 05/20/2024 Clinical Communication Department of Ophthalmology in [place], [place] [address] [place] [phone] Renaldo Hawk M.D. 05/07/2024 2:00 PM CDT Office Visit Department of Ophthalmology in [place], [place] [address] [place] [phone] Renaldo Hawk M.D. Necrosis Retinal Acute Right (Primary Dx); Proliferative Vitreoretinopathy Right; Panuveitis Right; Primary Hypotony Right Eye; Posterior Reversible Encephalopathy Syndrome 05/04/2024 Clinical Communication Department of Ophthalmology in [place], [place] [address] [place] [phone] Kenya Garza M.D. Follow Up Visit from ER 04/27/2024 Clinical Communication Department of Ophthalmology in [place], [place] [address] [place] [phone] Prakash Graham M.D. Surgery today 04/2704/16/2024 2:30 PM CDT Office Visit Department of Ophthalmology in [place], [place] [address] [place] [address] Kenya Garza M.D. Necrosis Retinal Acute Right (Primary Dx); Proliferative Vitreoretinopathy Right 04/16/2024 2:00 PM CDT Ancillary Procedure Department of Ophthalmology in [place], [place] [address] [place] [phone] Kenya Garza M.D. Necrosis Retinal Acute Right 04/16/2024 1:00 PM CDT Ancillary Procedure Department of Ophthalmology in [place], [place] [address] [place] [phone] Kenya Garza M.D. Necrosis Retinal Acute Right 04/16/2024 12:05 AM CDT Ancillary Procedure Department of Ophthalmology 04/16/2024 Ancillary Procedure Department of Ophthalmology 04/14/2024 2:30 PM CDT Office Visit Department of Ophthalmology in [place], [place] [address] [place] [phone] Prakash Graham M.D. Panuveitis Right (Primary Dx); Proliferative Vitreoretinopathy Right 04/14/2024 2:10 PM CDT Ancillary Procedure Department of Ophthalmology in [place], [place] [address] [place] [phone] Prakash Graham M.D. Panuveitis Right; Necrosis Retinal Acute Right 04/14/2024 11:00 AM CDT Comprehensive Visit Preoperative Evaluation Center in [place], [place] [address] [place] [phone] Prakash Graham M.D. Warner, Paul A, M.D. Panuveitis Right; Necrosis Retinal Acute Right 04/14/2024 Ancillary Procedure Department of Ophthalmology 04/10/2024 Refill Department of Ophthalmology in [place], [place] [address] [place] [phone] Kenya Garza M.D. Med Refill 04/01/2024 Refill Department of Ophthalmology in [place], [place] [address] [place] [phone] Raffi Boyd M.D. Med Refill 03/16/2024 Orders Only Department of Ophthalmology in [place], [place] [address] [place] [phone] Shahnaz Amato C.ODixie Necrosis Retinal Acute Right (Primary Dx) 03/16/2024 Orders Only Department of Ophthalmology in [place], [place] [address] [place] [phone] Jean Claude Newsome C.O.A. Panuveitis Right (Primary Dx); Necrosis Retinal Acute Right 03/14/2024 Orders Only Department of Ophthalmology in [place], [place] [address] [place] [phone] Raffi Boyd M.D. 03/13/2024 2:00 PM CDT Procedure visit Department of Ophthalmology in [place], [place] [address] [place] [phone] Prakash Graham M.D. Primary Hypotony Right Eye (Primary Dx); Panuveitis Right; Necrosis Retinal Acute Right 03/13/2024 1:00 PM CDT Office Visit Department of Ophthalmology in [address] [phone] Prakash Graham M.D. Panuveitis Right (Primary Dx); Necrosis Retinal Acute Right 03/13/2024 12:00 PM CDT Ancillary Procedure Department of Ophthalmology in [place], [place] [address] [place] [phone] Kenya Garza M.D. Panuveitis Right; Necrosis Retinal Acute Right 03/13/2024 11:30 AM CDT Office Visit Department of Ophthalmology in [address] [phone] Kenya Garza M.D. Necrosis Retinal Acute Right (Primary Dx); Panuveitis Right 03/13/2024 8:00 AM CDT Ancillary Procedure Department of Ophthalmology in [place], [place] [address] [place] [phone] Kenya Garza M.D. Panuveitis Right; Necrosis Retinal Acute Right 03/13/2024 12:10 AM CDT Ancillary Procedure Department of Ophthalmology 03/13/2024 12:05 AM CDT Ancillary Procedure Department of Ophthalmology 03/13/2024 Orders Only Department of Ophthalmology in [place], [place] [address] [place] [address] Jean Claude Newsome C.O.A. Necrosis Retinal Acute Right (Primary Dx) 03/13/2024 Ancillary Procedure Department of Ophthalmology 03/11/2024 Clinical Communication Department of Ophthalmology in [place], [place] [address] [place] [address] Kenya Garza M.D. 03/10/2024 Clinical Communication Department of Ophthalmology in [place], [place] [address] [place] [address] Kenya Garza M.D. from Last 3 Months Family History Medical History Relation Name Comments Lymphoma Brother Kannan Thibodeaux 2018 Prostate cancer Father Podhora 2001 Stroke Father Podhora Coronary artery disease Mother Afia Thibodeaux Not sure of dates no bypass Diabetes Mother Afia Thibodeaux Heart attack Mother Afia Thibodeaux Relation Name Status Comments Brother Kannan Thibodeaux Father Rossho Mother Afia Thibodeaux Social [...] Recorded In the past 12 months has [employer] electric, gas, oil, or water company threatened [...] How often do you attend anabaptist or nondenominational serv ices? Never 06/27/2020 Do [...] medical care, and heating? Somewhat hard 06/27/2020 [facility] [place] [facility] Occupat ional Health - Occupational Stress [...] Answer Date Recorded Dental: Regular Dentist No 01/09/20 24 Employment Answer Date Recorded Employment status [...] Department Care Team (Latest Contact Info) Description 06/01/2024 10:00 AM CDT Hospital Encounter [facility] [place] [address] [place] [phone] Prakash Graham M.D. [address] [place] [phone] 06/01/2024 2:50 PM CDT - 06/01/2024 5:47 PM CDT Surgery [facility] [place] [phone] Prakash Graham M.D. [address] [place] [phone] VITRECTOMY, PARS PLANA 25 GAUGE, MEMBRANE PEEL, SILICONE OIL, SCLERAL BUCKLE, ALL ASSOCIATED PROCEDURES RIGHT EYE. 06/02/2024 8:00 AM CDT Office Visit Department of Ophthalmology in [place], [place] [address] [place] [phone] Prakash Graham M.D. [address] [place] [phone] 06/09/2024 9:30 AM CDT Ancillary Procedure Department of Ophthalmology in [place], [place] [address] [place] [phone] Prakash Graham M.D. [address] [place] [phone] 06/09/2024 10:00 AM CDT Office Visit Department of Ophthalmology in [place], [place] [address] [place] [phone] Prakash Graham M.D. [address] [place] [phone] 07/16/2024 8:45 AM CDT Ancillary Procedure Department of Ophthalmology in [place], [place] [address] [place] [phone] Prakash Graham M.D. [address] [place] [phone] 07/16/2024 9:15 AM CDT Ancillary Procedure Department of Ophthalmology in [place], [place] [address] [place] [phone] Prakash Graham M.D. [address] [place] [phone] 07/16/2024 9:30 AM CDT Office Visit Department of Ophthalmology in [place], [place] [address] [place] [phone] Kenya Garza M.D. [address] [place] [phone] 07/16/2024 12:45 PM CDT Office Visit Department of Ophthalmology in [place], [place] [address] [place] [address] Prakash Graham M.D. [address] [place] [address] Scheduled Procedures Name Priority Associated Diagnoses Date/Ti me VITRECTOMY - PARS PLANA 25 GAUGE Panuveitis Right Necrosis Retinal Acute Right 06/01/2024 2:50 PM CDT SCLERAL BUCKLING Panuveitis Right Necrosis Retinal Acute Right 06/01/2024 2:50 PM CDT Health Maintenance Due Date Last Done [...] Blood Pressure Check / Re-check 07/15/2024 04/14/2024 Influenza Vaccine (#1) 2024 3, 07/16/2020, 08/14/2019, Additional history exists Creatinine Level (Kidney Function Test) 01/12/2025 01/13/2024, [...] Pneumococcal vaccine (65+ years) Completed 01/23/2023, 06/24/2018 HPV Vaccines Aged Out No longer eligi ble based on patient's age to complete this topic Medical Devices Implanted Type Area Metal Template Maker Device Identifier Shelf Expiration Date Model / [...] NM PET Routine 03/19/2024 6:30 PM CDT CYCLOPHOTOCOAGULATIO N, TRANSSCLERAL - OD - RIGHT EYE Routine [...] IMAGE EXAM Routine 03/13/2024 12:05 AM CDT COMPREHENSIVE METABOLIC PANEL, S/P Routine 11/05/2023 4:[address] CHEST WITH IV CONTRAST RAD - [...] ciliary body detachment noted, possible ciliochoroidal effusion. [facility] Kenya Garza M.D. OPHTH ULTRASOUND OPHTHALMOLGY [...] ciliary body detachment noted, possible ciliochoroidal effusion. [facility] Kenya Garza M.D. OPHTH ULTRASOUND Performing Organization Address [facility] de Phone Number OPHTHALMOLGY NON-IMAGING ORDERS * Eyes UBM-Ophthalmology Image Exam (04/16/2024 12:05 AM CDT) Only the most recent of5 [...] RAD IMAGI NG PROCEDURES Performing Organization Address [facility] de Phone Number IIMS NA * Optical Coherence Tomography - Macula/Retina - OU - Both Eyes (04/14/2024 2:22 PM CDT) Narrative OPHTHALMOLOGY IMAGING EXAM - 04/14/2024 4:40 PM CDT Right Eye OCT device used was Spectralis . Left Eye OCT device used was Spectralis . Notes See note from visit on 04/14/2024. Prakash Graham M.D. OPHTH TOMOGRAPHY Performing Organization Address [facility] de Phone Number OPHTHALMOLOGY IMAGING EXAM [...] System IMG NM PROCEDURES Performing Organization Address [facility] de Phone Number IIMS NA * [...] 9 o'clock right eye Prakash Graham M.D. [facility] PROCED URES Performing Organization Address [facility] de Phone Number [facility] NON-IMAGING ORDERS * Ultrasound Biomicroscopy (UBM) - OD - Right Eye (03/13/2024 9:45 AM CDT) Narrative [facility] NON-IMAGING ORDERS - 03/13/2024 10:21 AM CDT 03/13/2024 B-Scan Right Eye: dense vitreous opacities, probable posterior vitreous detachment, vitreous membranes possibly extending to disc, detachments vs opacities - cannot rule out choroidal detachment, thickened fundus appearance. UBM Right Eye: minimal opacities in anterior chamber, ciliary body detachment noted, possible ciliochoroidal effusion. JULIAN Kenya Garza M.D. [facility] ULTRASOUND Performing Organization Address [facility] de Phone Number [facility] NON-IMAGING ORDERS * B-Scan Ultrasound - OD - Right Eye (03/13/2024 9:45 AM CDT) Narrative [facility] NON-IMAGING ORDERS - 03/13/2024 10:21 AM CDT 03/13/2024 B-Scan Right Eye: dense vitreous opacities, probable posterior vitreous detachment, vitreous membranes possibly extending to disc, detachments vs opacities - cannot rule out choroidal detachment, thickened fundus appearance. UBM Right Eye: minimal opacities in anterior chamber, ciliary body detachment noted, possible ciliochoroidal effusion. JULIAN Kenya Garza M.D. [facility] ULTRASOUND Performing Organization Address [facility] Co de Phone Number OPHTHALMOLGY NON-IMAGING ORDERS * (ABNORMAL) Comprehensive Metabolic Panel (11/05/2023 4:03 PM CUSTODIAN) Potassium, S 4.4 3.6 - 5.2 mmol/L 11/05/2023 5:04 PM CUSTODIAN DTL Sodium, S 139 135 - 145 mmol/L 11/05/2023 5:04 PM CUSTODIAN DTL Chloride, S 101 98 - 107 mmol/L 11/05/2023 5:04 PM CUSTODIAN DTL Bicarbonate, S 27 22 - 29 mmol/L 11/05/2023 5:04 PM CUSTODIAN DTL Anion Gap 11 7 - 15 11/05/2023 5:04 PM CUSTODIAN DTL BUN (Blood Urea Nitrogen), S 17 6 - 21 mg/dL 11/05/2023 5:04 PM CUSTODIAN DTL Creatinine 0.76 0.59 - 1.04 mg/dL 11/05/2023 5:04 PM CUSTODIAN DTL Estimated GFR (eGFR) 86 >=60 mL/min/BS A 11/05/2023 5:04 PM CUSTODIAN DTL Comment: Estimated GFR calculated using the 2020 CKD_EPI creatinine equation. Calcium, Total, S 10.1 8.8 - 10.2 mg/dL 11/05/2023 5:20 PM CUSTODIAN DTL Glucose, S 104 70 - 140 mg/dL 11/05/2023 5:04 PM CUSTODIAN DTL Protein, Total, S 6.1(L) 6.3 - 7.9 g/dL 11/05/2023 5:04 PM CUSTODIAN DTL Albumin, S 4.3 3.5 - 5.0 g/dL 11/05/2023 5:04 PM CUSTODIAN DTL Aspartate Aminotransferase (AST), S 16 8 - 43 U/L 11/05/2023 5:04 PM CUSTODIAN DTL Alkaline Phosphatase, S 81 35 - 104 U/L 11/05/2023 5:04 PM CUSTODIAN DTL Alanine Aminotransferase (ALT), S 16 7 - 45 U/L 11/05/2023 5:04 PM CUSTODIAN DTL Bilirubin, Total, S 1.2 0.0 - 1.2 mg/dL 11/05/2023 5:04 PM CUSTODIAN DTL Blood (Blood, Venous) 11/05/2023 4:03 PM CUSTODIAN 11/05/2023 4:41 PM CUSTODIAN Kenya Garza M.D. LAB BLOOD ADD-ON [facility] [address] [place] [address], [place] DTL [facility] [address] [place] [address] * CT Chest with IV Contrast (03/31/2020 [...] Recently Relevant to Health Maintenance Care Teams Clinical Nutritionist Relationship Specialty Start Date End Date Elsewhere, Pcp PCP - General Internal Medicine 05/29/19
--- OUTSIDE RECORDS SUMMARY | 2024-05-28 14:47 | XMS_ITS | Encounter Summary ---
Author Organization [facility] Address [address] [place] [id number] Care Team Providers Care Cafeteria Associate Name Role Phone Elsewhere, Pcp Primary Care Provider Unavailabl e Reason for Visit * Reason Onset Date Comments Surgery today 04/2704/27/2024 Encounter Details Date Type Department Care Team (Latest Contact Info) Description 04/27/2024 Clinical Communication Department of Ophthalmology in [place], [place] [address] [place] [address] Prakash Graham M.D. [address] [place] [address] Surgery today 04/27 Social History Tobacco Use Types Packs/Day Years Used Date Smoking Tobacco: Former Cigarettes 0.7 70.4 0 03/28/1975 - 01/09/2022 Smokeless Tobacco: Never Comments:On again off again Alcohol Use Standard Drinks/Week Comments Yes 5 (1 standard drink = 0.6 oz pur e alcohol) occasional [facility] Utilities Answer Date [...] Never 06/27/2020 How often do you attend yarsanism or anabaptist serv ices? Never 06/27/2020 Do you belong to any clubs o r organizations such as yarsanism groups, unions, fraternal or athletic groups, or [...] Somewhat hard 06/27/2020 [facility] - [...] 06/01/2024 10:00 AM CDT Hospital Encounter [facility] OR [address] [place] [phone] Prakash Graham M.D. [address] [place] [phone] 06/01/2024 2:50 PM CDT - 06/01/2024 5:47 PM CDT Surgery [facility] [address] [place] [phone] Prakash Graham M.D. [address] [place] [phone] VITRECTOMY, PARS PLANA 25 GAUGE, MEMBRANE PEEL, SILICONE OIL, SCLERAL BUCKLE, ALL ASSOCIATED PROCEDURES RIGHT EYE. 06/02/2024 8:00 AM CDT Office Visit Department of Ophthalmology in [place], [place] [address] [place] [phone] Prakash Graham M.D. [address] [place] [phone] 06/09/2024 9:30 AM CDT Ancillary Procedure Department of Ophthalmology in [place], [place] [address] [place] [phone] Prakash Graham M.D. [address] [place] [phone] 06/09/2024 10:00 AM CDT Office Visit Department of Ophthalmology in [place], [place] [address] [place] [phone] Prakash Graham M.D. [address] [place] [phone] 07/16/2024 8:45 AM CDT Ancillary Procedure Department of Ophthalmology in [place], [place] [address] [place] [phone] Prakash Graham M.D. [address] [place] [phone] 07/16/2024 9:15 AM CDT Ancillary Procedure Department of Ophthalmology in [place], [place] [address] [place] [phone] Prakash Graham M.D. [address] [place] [phone] 07/16/2024 9:30 AM CDT Office Visit Department of Ophthalmology in [address] [phone] Kenya Garza M.D. [address] [place] [phone] 07/16/2024 12:45 PM CDT Office Visit Department of Ophthalmology in [address] [phone] Prakash Graham M.D. [address] [place] [phone] Scheduled Procedures Name Priority Associated Diagnoses Date/Ti me VITRECTOMY - PARS PLANA 25 GAUGE Panuveitis Right Necrosis Retinal Acute Right 06/01/2024 2:50 PM CDT SCLERAL BUCKLING Panuveitis Right Necrosis Retinal Acute Right 06/01/2024 2:50 PM CDT documented as of this encounter Visit Diagnoses Not on filedocumented in this encounter Care Teams Cafeteria Associate Relationship Specialty Start Date End Date Elsewhere, Pcp PCP - General Internal Medicine 05/29/19 documented as of this encounter
--- OUTSIDE RECORDS SUMMARY | 2024-05-28 14:47 | XMS_ITS ---
Author Organization [facility] Address [address] [place] [address] Care Team Providers Care Tire Wrapper Name Role Phone Unavailable Unavailable Unavailable Surgery Details Not on file Complications Check Surgery Details section. Procedure Estimated Blood Loss Check Surgery Details section. Procedure Findings Check Surgery Details section. Procedure Specimens Taken Check Surgery Details section.
--- OUTSIDE RECORDS SUMMARY | 2024-05-28 14:47 | XMS_ITS | Encounter Summary ---
Author Organization [facility] Address [address] [place] [address] Care Team Providers Care Reclaimer Name Role Phone Elsewhere, Pcp Primary Care Provider Unavailabl e Reason for Referral * Outpatient (Routine) - Closed Specialty Diagnoses / Procedures Referred By Apolinar t Referred To Contact Ophthalmology Renaldo Hawk M.D. [address] [place] [phone] Prakash Graham M.D. [address] [place] [phone] Referral ID Status Reason Start Date Expiration Date Visits Re quested Visits Authorized [id number] Closed 05/17/2024 11/16/2025 1 1 Scheduling Instructions VTD both eyes Can use urgent slot Encounter Details Date Type Department Care Team (Latest Contact Info) Description 05/07/2024 2:00 PM CDT Office Visit Department of Ophthalmology in [place], [place] [address] [place] [phone] Renaldo Hawk M.D. [address] [place] [phone] Necrosis Retinal Acute Right (Primary Dx); Proliferative Vitreoretinopathy Right; Panuveitis Right; Primary Hypotony Right Eye; Posterior Reversible Encephalopathy Syndrome Social History Tobacco Use Types Packs/Day Years Used Date Smoking Tobacco: Former Cigarettes 0.7 70.4 0 03/28/1975 - 01/09/2022 Smokeless Tobacco: Never Comments:On again off again Alcohol Use Standard Drinks/Week Comments Yes 5 (1 standard drink = 0.6 oz pur e alcohol) occasional [facility] Utilities Answer Date Recorded In [...] How often do you attend protestant or yarsani serv ices? Never 06/27/2020 Do [...] medical care, and heating? Somewhat hard 06/27/2020 [facility] [place] of Occupat ional Health - Occupational Stress [...] your living situation today? I have a [facility] place to live 11/05/2023 Education [...] as of this encounter Progress Notes * Renaldo Hawk M.D. - 05/07/2024 2:00 PM CDT Retina service triage Recently hospitalized for PRES (MRI confirmed, report available but images unavailable) and was discharged but presents today for evaluation given vision changes noted while hospitalized. The patientdescribed many visual phenomena while hospitalized that have since resolved, including visual distortions, flashing lights, and feeling like she was seeing cartoons instead of people. She also reports that she has had decreased vision in her right eye recently. Vision in the left eye is currently at baseline. 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 DFE of both eyes appears unchanged compared to priordocumentation. I suspect her now- resolved vision changes were related to the diagnosis of PRES. Decreased vision in the right eye is of unclear etiology as her fundus exam is stable compared to prior. She was supposed to have surgery with Dr. Graham, but this was cancelled due to scheduling conflicts. Discussed with Dr. Graham, who would like to reconnect with her prior to surgery, particularly in light of her decreased vision in that eye. Return precautions discussed, including return of previous symptoms or decreased vision. documented in this encounter Plan of Treatment Upcoming Encounters Date Type Department Care Team (Latest Contact Info) Description 06/01/2024 10:00 AM CDT Hospital Encounter [facility] [address] [place] [phone] Prakash Graham M.D. [address] [place] [phone] 06/01/2024 2:50 PM CDT - 06/01/2024 5:47 PM CDT Surgery [facility] [address] [place] [phone] Prakash Graham M.D. [address] [place] [phone] VITRECTOMY, PARS PLANA 25 GAUGE, MEMBRANE PEEL, SILICONE OIL, SCLERAL BUCKLE, ALL ASSOCIATED PROCEDURES RIGHT EYE. 06/02/2024 8:00 AM CDT Office Visit Department of Ophthalmology in [place], [place] [address] [place] [phone] Prakash Graham M.D. [address] [place] [phone] 06/09/2024 9:30 AM CDT Ancillary Procedure Department of Ophthalmology in [place], [place] [address] [place] [phone] Prakash Graham M.D. [address] [place] [phone] 06/09/2024 10:00 AM CDT Office Visit Department of Ophthalmology in [place], [place] [address] [place] [phone] Prakash Graham M.D. [address] [place] [phone] 07/16/2024 8:45 AM CDT Ancillary Procedure Department of Ophthalmology in [place], [place] [address] [place] [phone] Prakash Graham M.D. [address] [place] [phone] 07/16/2024 9:15 AM CDT Ancillary Procedure Department of Ophthalmology in [place], [place] [address] [place] [phone] Prakash Graham M.D. [address] [place] [phone] 07/16/2024 9:30 AM CDT Office Visit Department of Ophthalmology in [place], [place] [address] [place] [phone] Kenya Garza M.D. [address] [place] [phone] 07/16/2024 12:45 PM CDT Office Visit Department of Ophthalmology in [place], [place] [address] [place] [phone] Prakash Graham M.D. [address] [place] [address] Scheduled Procedures Name Priority Associated Diagnoses Date/Ti me VITRECTOMY - PARS PLANA 25 GAUGE Panuveitis Right Necrosis Retinal Acute Right 06/01/2024 2:50 PM CDT SCLERAL BUCKLING Panuveitis Right Necrosis Retinal Acute Right 06/01/2024 2:50 PM CDT Scheduled Referrals Name Type Priority Associated Diagnoses Order Schedule Ophthalmology office visit (clinic) Outpatient Referral Routine Expected: 05/17/2024, Expires: 08/17/2025 documented as of this encounter Visit Diagnoses Diagnosis Panuveitis Right Necrosis Retinal Acute Right Chronic Obstructive Pulmonary Disease Without Exacerbation (HCC) Necrosis Retinal Acute Right- Primary Proliferative Vitreoretinopathy Right Panuveitis Right Primary Hypotony Right Eye Posterior Reversible Encephalopathy Syndrome Panuveitis Right Necrosis Retinal Acute Right documented in this encounter Care Teams Reclaimer Relationship Specialty Start Date End Date Elsewhere, Pcp PCP - General Internal Medicine 05/29/19 documented as of this encounter
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
--- OUTSIDE RECORDS SUMMARY | 2024-05-28 14:47 | XMS_ITS | Encounter Summary ---
Author Organization [facility] Address [address] [place] [address] Care Team Providers Care In Service Coordinator Name Role Phone Elsewhere, Pcp Primary Care Provider Unavailabl e Encounter Details Date Type Department Care Team (Latest Contact Info) Description 04/16/2024 1:00 PM CDT Ancillary Procedure Department of Ophthalmology in [place], [place] [address] [place] [address] Kenya Garza M.D. [address] [place] [phone] Necrosis Retinal Acute Right Social History Tobacco Use Types Packs/Day Years Used Date Smoking Tobacco: Former Cigarettes 0.7 70.4 0 03/28/1975 - 01/09/2022 Smokeless Tobacco: Never Comments:On again off again Alcohol Use Standard Drinks/Week Comments Yes 5 (1 standard drink = 0.6 oz pur e alcohol) occasional [facility] Utilities Answer Date Recorded In the past 12 months has [employer], gas, oil, or water [employer] threatened to shut off services in your home? No 11/05/2023 Social Connection and Isolation Panel [NHANES] A nswer Date Recorded In a typical week, how many times do you talk on the phone with family, friends, or neighbors? Once a week 06/27/2020 How often do you get together with friends or re latives? Never 06/27/2020 How often do you attend moravian or jainism serv ices? Never 06/27/2020 Do [...] and heating? Somewhat hard 06/27/2020 [facility] of Occupat ional Health - Occupational Stress [...] 06/01/2024 10:00 AM CDT Hospital Encounter [facility] [place] [phone] Prakash Graham M.D. [address] [place] [phone] 06/01/2024 2:50 PM CDT - 06/01/2024 5:47 PM CDT Surgery [facility] [place] [phone] Prakash Graham M.D. [address] [place] [phone] VITRECTOMY, PARS PLANA 25 GAUGE, MEMBRANE PEEL, SILICONE OIL, SCLERAL BUCKLE, ALL ASSOCIATED PROCEDURES RIGHT EYE. 06/02/2024 8:00 AM CDT Office Visit Department of Ophthalmology in [place], [place] [address] [place] [phone] Prakash Graham M.D. [address] [place] [phone] 06/09/2024 9:30 AM CDT Ancillary Procedure Department of Ophthalmology in [place], [place] [address] [place] [phone] Prakash Graham M.D. [address] [place] [phone] 06/09/2024 10:00 AM CDT Office Visit Department of Ophthalmology in [place], [place] [address] [place] [phone] Prakash Graham M.D. [address] [place] [phone] 07/16/2024 8:45 AM CDT Ancillary Procedure Department of Ophthalmology in [place], [place] [address] [place] [phone] Prakash Graham M.D. [address] [place] [phone] 07/16/2024 9:15 AM CDT Ancillary Procedure Department of Ophthalmology in [place], [place] [address] [place] [phone] Prakash Graham M.D. [address] [place] [phone] 07/16/2024 9:30 AM CDT Office Visit Department of Ophthalmology in [address] [phone] Kenya Garza M.D. [address] [place] [phone] 07/16/2024 12:45 PM CDT Office Visit Department of Ophthalmology in [address] [phone] Prakash Graham M.D. [address] [place] [phone] Scheduled Procedures Name Priority Associated Diagnoses Date/Ti me VITRECTOMY - PARS PLANA 25 GAUGE Panuveitis Right Necrosis Retinal Acute Right 06/01/2024 2:50 PM CDT SCLERAL BUCKLING Panuveitis Right Necrosis Retinal Acute Right 06/01/2024 2:50 PM CDT documented as of this encounter Procedures [...] ciliary body detachment noted, possible ciliochoroidal effusion. [facility] Kenya Garza M.D. OPHTH ULTRASOUND OPHTHALMOLGY NON-IMAGING ORDERS documented in this encounter Visit Diagnoses Diagnosis Panuveitis Right Necrosis Retinal Acute Right Chronic Obstructive Pulmonary Disease Without Exacerbation (HCC) Necrosis Retinal Acute Right Panuveitis Right Necrosis Retinal Acute Right documented in this encounter Care Teams In Service Coordinator Relationship Specialty Start Date End Date Elsewhere, Pcp PCP - General Internal Medicine 05/29/19 documented as of this encounter
--- OUTSIDE RECORDS SUMMARY | 2024-05-28 14:47 | XMS_ITS | Encounter Summary ---
Author Organization [facility] Address [address] [place] [address] Care Team Providers Care Drawing Supervisor Name Role Phone Elsewhere, Pcp Primary Care Provider Unavailabl e Reason for Visit * Reason Onset Date Comments Follow Up Visit from ER 05/04/2024 Encounter Details Date Type Department Care Team (Latest Contact Info) Description 05/04/2024 Clinical Communication Department of Ophthalmology in [place], [place] [address] [place] [address] Kenya Garza M.D. [address] [place] [phone] Follow Up Visit from ER Social History Tobacco Use Types Packs/Day Years Used Date Smoking Tobacco: Former Cigarettes 0.7 70.4 0 03/28/1975 - 01/09/2022 Smokeless Tobacco: Never Comments:On again off again Alcohol Use Standard Drinks/Week Comments Yes 5 (1 standard drink = 0.6 oz pur e alcohol) occasional [facility] Utilities Answer Date Recorded In the past 12 months has [employer] electric, gas, oil, or water company threatened [...] How often do you attend methodist or voodoo serv ices? Never 06/27/2020 Do [...] living situation today? I have a [facility] place to live 11/05/2023 Education [...] 06/01/2024 10:00 AM CDT Hospital Encounter [facility] [place] [address] [place] [phone] Prakash Graham M.D. [address] [place] [phone] 06/01/2024 2:50 PM CDT - 06/01/2024 5:47 PM CDT Surgery [facility] OR [address] [place] [phone] Prakash Graham M.D. [address] [place] [phone] VITRECTOMY, PARS PLANA 25 GAUGE, MEMBRANE PEEL, SILICONE OIL, SCLERAL BUCKLE, ALL ASSOCIATED PROCEDURES RIGHT EYE. 06/02/2024 8:00 AM CDT Office Visit Department of Ophthalmology in [place], [place] [address] [place] [phone] Prakash Graham M.D. [address] [place] [phone] 06/09/2024 9:30 AM CDT Ancillary Procedure Department of Ophthalmology in [place], [place] [address] [place] [phone] Prakash Graham M.D. [address] [place] [phone] 06/09/2024 10:00 AM CDT Office Visit Department of Ophthalmology in [place], [place] [address] [place] [phone] Prakash Graham M.D. [address] [place] [phone] 07/16/2024 8:45 AM CDT Ancillary Procedure Department of Ophthalmology in [place], [place] [address] [place] [phone] Prakash Graham M.D. [address] [place] [phone] 07/16/2024 9:15 AM CDT Ancillary Procedure Department of Ophthalmology in [place], [place] [address] [place] [phone] Prakash Graham M.D. [address] [place] [phone] 07/16/2024 9:30 AM CDT Office Visit Department of Ophthalmology in [address] [phone] Kenya Garza M.D. [address] [place] [phone] 07/16/2024 12:45 PM CDT Office Visit Department of Ophthalmology in [place], [place] [address] [place] [phone] Prakash Graham M.D. [address] [place] [phone] Scheduled Procedures Name Priority Associated Diagnoses Date/Ti me VITRECTOMY - PARS PLANA 25 GAUGE Panuveitis Right Necrosis Retinal Acute Right 06/01/2024 2:50 PM CDT SCLERAL BUCKLING Panuveitis Right Necrosis Retinal Acute Right 06/01/2024 2:50 PM CDT documented as of this encounter Visit Diagnoses Not on filedocumented in this encounter Care Teams Drawing Supervisor Relationship Specialty Start Date End Date Elsewhere, Pcp PCP - General Internal Medicine 05/29/19 documented as of this encounter
--- OUTSIDE RECORDS SUMMARY | 2024-05-28 14:47 | XMS_ITS | Encounter Summary ---
Author Organization [facility] Address [address] [place] [address] Care Team Providers Care Nuclear Physics Professor Name Role Phone Elsewhere, Pcp Primary Care Provider Unavailabl e Encounter Details Date Type Department Care Team (Latest Contact Info) Description 04/14/2024 2:10 PM CDT Ancillary Procedure Department of Ophthalmology in [place], [place] [address] [place] [address] Prkaash Graham M.D. [address] [place] [address] Panuveitis Right; Necrosis Retinal Acute Right Social History Tobacco Use Types Packs/Day Years Used Date Smoking Tobacco: Former Cigarettes 0.7 70.4 0 03/28/1975 - 01/09/2022 Smokeless Tobacco: Never Comments:On again off again Alcohol Use Standard Drinks/Week Comments Yes 5 (1 standard drink = 0.6 oz pur e alcohol) occasional [facility] Utilities Answer Date Recorded In the past 12 months has [employer], gas, oil, or water [employer] threatened to shut off services in your home? No 11/05/2023 Social Connection and Isolation Panel [NHANES] A nswer Date Recorded In a typical week, how many times do you talk on the phone with family, friends, or neighbors? Once a week 06/27/2020 How often do you get together with friends or re latives? Never 06/27/2020 How often do you attend catholic or zoroastrian serv ices? Never 06/27/2020 Do [...] 06/01/2024 10:00 AM CDT Hospital Encounter [facility] OR [address] [place] [phone] Prakash Graham M.D. [address] [place] [phone] 06/01/2024 2:50 PM CDT - 06/01/2024 5:47 PM CDT Surgery [facility] OR [address] [place] [phone] Prakash Graham M.D. [address] [place] [phone] VITRECTOMY, PARS PLANA 25 GAUGE, MEMBRANE PEEL, SILICONE OIL, SCLERAL BUCKLE, ALL ASSOCIATED PROCEDURES RIGHT EYE. 06/02/2024 8:00 AM CDT Office Visit Department of Ophthalmology in [place], [place] [address] [place] [phone] Prakash Graham M.D. [address] [place] [phone] 06/09/2024 9:30 AM CDT Ancillary Procedure Department of Ophthalmology in [place], [place] [address] [place] [phone] Prakash Graham M.D. [address] [place] [phone] 06/09/2024 10:00 AM CDT Office Visit Department of Ophthalmology in [place], [place] [address] [place] [phone] Prakash Graham M.D. [address] [place] [phone] 07/16/2024 8:45 AM CDT Ancillary Procedure Department of Ophthalmology in [place], [place] [address] [place] [phone] Prakash Graham M.D. [address] [place] [phone] 07/16/2024 9:15 AM CDT Ancillary Procedure Department of Ophthalmology in [place], [place] [address] [place] [phone] Prakash Graham M.D. [address] [place] [phone] 07/16/2024 9:30 AM CDT Office Visit Department of Ophthalmology in [address] [phone] Kenya Garza M.D. [address] [place] [phone] 07/16/2024 12:45 PM CDT Office Visit Department of Ophthalmology in [address] [phone] Prakash Graham M.D. [address] [place] [phone] Scheduled Procedures Name Priority Associated Diagnoses Date/Ti [...] Right documented in this encounter Care Teams Nuclear Physics Professor Relationship Specialty Start Date End Date Elsewhere, Pcp PCP - General Internal Medicine 05/29/19 documented as of this encounter
--- OUTSIDE RECORDS SUMMARY | 2024-05-28 14:47 | XMS_ITS | Encounter Summary ---
Author Organization [facility] Address [address] [place] [address] Care Team Providers Care Heel Builder Name Role Phone Elsewhere, Pcp Primary Care Provider Unavailabl e Reason for Visit * Outpatient (Routine) - Closed Specialty Diagnoses / Procedures Referred By Apolinar t Referred To Contact Ophthalmology Renaldo Hawk M.D. [address] [place] [phone] Prakash Graham M.D. [address] [place] [phone] Referral ID Status Reason Start Date Expiration Date Visits Re quested Visits Authorized [id number] Closed 05/17/2024 11/16/2025 1 1 Encounter Details Date Type Department Care Team (Latest Contact Info) Description 05/26/2024 9:45 AM CDT Office Visit Department of Ophthalmology in [place], [place] [address] [place] [phone] Prakash Graham M.D. [address] [place] [phone] Necrosis Retinal Acute Right (Primary Dx) Social History Tobacco Use Types Packs/Day Years Used Date Smoking Tobacco: Former Cigarettes 0.7 70.4 0 03/28/1975 - 01/09/2022 Smokeless Tobacco: Never Comments:On again off again Alcohol Use Standard Drinks/Week Comments Yes 5 (1 standard drink = 0.6 oz pur e alcohol) occasional [facility] Utilities Answer Date Recorded In the past 12 months has th e electric, gas, oil, or water [employer] threatened to shut off services in your home? No 11/05/2023 Social Connection and Isolation Panel [NHANES] A nswer Date Recorded In a typical week, how many times do you talk on the phone with family, friends, or neighbors? Once a week 06/27/2020 How often do you get together with friends or re latives? Never 06/27/2020 How often do you attend caodaism or protestant serv ices? Never 06/27/2020 Do [...] [facility] of Occupat ional [facility] - Occupational Stress Questionnaire Answer [...] Progress Notes * Prakash Graham M.D. 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 Durezol should continue twice daily in the right eye for now. Minimal improvement if any post cryo to the right eye. Discussed options, will plan on surgery to try and improve hypotony and anterior contraction. 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 [address] [place] [phone] 06/01/2024 2:50 PM CDT - 06/01/2024 5:47 PM CDT Surgery [facility] [address] [place] [phone] Prakash Graham M.D. [address] [place] [phone] VITRECTOMY, PARS PLANA 25 GAUGE, MEMBRANE PEEL, SILICONE OIL, SCLERAL BUCKLE, ALL ASSOCIATED PROCEDURES RIGHT EYE. 06/02/2024 8:00 AM CDT Office Visit Department of Ophthalmology in [place], [place] [address] [place] [phone] Prakash Graham M.D. [address] [place] [phone] 06/09/2024 9:30 AM CDT Ancillary Procedure Department of Ophthalmology in [place], [place] [address] [place] [phone] Prakash Graham M.D. [address] [place] [phone] 06/09/2024 10:00 AM CDT Office Visit Department of Ophthalmology in [place], [place] [address] [place] [phone] Prakash Graham M.D. [address] [place] [phone] 07/16/2024 8:45 AM CDT Ancillary Procedure Department of Ophthalmology in [place], [place] [address] [place] [phone] Prakash Graham M.D. [address] [place] [phone] 07/16/2024 9:15 AM CDT Ancillary Procedure Department of Ophthalmology in [place], [place] [address] [place] [phone] Prakash Graham M.D. [address] [place] [phone] 07/16/2024 9:30 AM CDT Office Visit Department of Ophthalmology in [place], [place] [address] [place] [phone] Kenya Garza M.D. [address] [place] [phone] 07/16/2024 12:45 PM CDT Office Visit Department of Ophthalmology in [place], [place] [address] [place] [phone] Prakash Graham M.D. [address] [place] [address] Scheduled Procedures Name Priority Associated Diagnoses Date/Ti [...] documented in this encounter Care Teams Heel Builder Relationship Specialty Start Date End Date Elsewhere, Pcp PCP - General Internal Medicine 05/29/19 documented as of this encounter
--- OUTSIDE RECORDS SUMMARY | 2024-05-28 14:47 | XMS_ITS | Encounter Summary ---
Author Organization [facility] Address [address] [place] [address] Care Team Providers Care Seed Cleaning Manager Name Role Phone Elsewhere, Pcp Primary [...] How often do you attend taoist or taoism serv ices? Never 06/27/2020 Do [...] medical care, and heating? Somewhat hard 06/27/2020 [facility] of Occupat ional [facility] - Occupational Stress Questionnaire Answer Date Recorded [...] 06/01/2024 10:00 AM CDT Hospital Encounter [facility] OR [facility] [place] [phone] Prakash Graham M.D. [address] [place] [phone] 06/01/2024 2:50 PM CDT - 06/01/2024 5:47 PM CDT Surgery [facility] OR [address] [place] [phone] Prakash Graham M.D. [address] [place] [phone] VITRECTOMY, PARS PLANA 25 GAUGE, MEMBRANE PEEL, SILICONE OIL, SCLERAL BUCKLE, ALL ASSOCIATED PROCEDURES RIGHT EYE. 06/02/2024 8:00 AM CDT Office Visit Department of Ophthalmology in [address] [phone] Prakash Graham M.D. [address] [place] [phone] 06/09/2024 9:30 AM CDT Ancillary Procedure Department of Ophthalmology in [place], [place] [address] [place] [phone] Prakash Graham M.D. [address] [place] [phone] 06/09/2024 10:00 AM CDT Office Visit Department of Ophthalmology in [place], [place] [address] [place] [phone] Prakash Graham M.D. [address] [place] [phone] 07/16/2024 8:45 AM CDT Ancillary Procedure Department of Ophthalmology in [place], [place] [address] [place] [phone] Prakash Graham M.D. [address] [place] [phone] 07/16/2024 9:15 AM CDT Ancillary Procedure Department of Ophthalmology in [place], [place] [address] [place] [phone] Prakash Graham M.D. [address] [place] [phone] 07/16/2024 9:30 AM CDT Office Visit Department of Ophthalmology in [place], [place] [address] [place] [phone] Kenya Garza M.D. [address] [place] [phone] 07/16/2024 12:45 PM CDT Office Visit Department of Ophthalmology in [place], [place] [address] [place] [phone] Prakash Graham M.D. [address] [place] [phone] Scheduled Procedures Name Priority Associated Diagnoses Date/Ti [...] in this encounter Results * Eyes US-Eye [id number] Image Exam (04/16/2024 12:00 AM CDT) Narrative [...] on filedocumented in this encounter Care Teams Seed Cleaning Manager Relationship Specialty Start Date End Date Elsewhere, Pcp PCP - General Internal Medicine 05/29/19 documented as of this encounter
--- OUTSIDE RECORDS SUMMARY | 2024-05-28 14:47 | XMS_ITS | Encounter Summary ---
Author Organization [facility] Address [address] [place] [address] Care Team Providers Care Passenger Booking Clerk Name Role Phone Elsewhere, Pcp Primary [...] Recorded In the past 12 months has [employer] electric, gas, oil, or water company threatened [...] How often do you attend zoroastrianism or episcopalian serv ices? Never 06/27/2020 Do [...] hard 06/27/2020 [facility] of Occupat ional Health - Occupational [...] your living situation today? [facility] 11/05/2023 Education Answer [...] 06/01/2024 10:00 AM CDT Hospital Encounter [facility] [place] [address] [place] [phone] Prakash Graham M.D. [address] [place] [phone] 06/01/2024 2:50 PM CDT - 06/01/2024 5:47 PM CDT Surgery [facility] OR [address] [place] [phone] Prakash Graham M.D. [address] [place] [phone] VITRECTOMY, PARS PLANA 25 GAUGE, MEMBRANE PEEL, SILICONE OIL, SCLERAL BUCKLE, ALL ASSOCIATED PROCEDURES RIGHT EYE. 06/02/2024 8:00 AM CDT Office Visit Department of Ophthalmology in [address] [phone] Prakash Graham M.D. [address] [place] [phone] 06/09/2024 9:30 AM CDT Ancillary Procedure Department of Ophthalmology in [address] [phone] Prakash Graham M.D. [address] [place] [phone] 06/09/2024 10:00 AM CDT Office Visit Department of Ophthalmology in [place], [place] [address] [place] [phone] Prakash Graham M.D. [address] [place] [phone] 07/16/2024 8:45 AM CDT Ancillary Procedure Department of Ophthalmology in [place], [place] [address] [place] [phone] Prakash Graham M.D. [address] [place] [phone] 07/16/2024 9:15 AM CDT Ancillary Procedure Department of Ophthalmology in [place], [place] [address] [place] [phone] Prakash Graham M.D. [address] [place] [phone] 07/16/2024 9:30 AM CDT Office Visit Department of Ophthalmology in [place], [place] [address] [place] [phone] Kenya Garza M.D. [address] [place] [phone] 07/16/2024 12:45 PM CDT Office Visit Department of Ophthalmology in [place], [place] [address] [place] [phone] Prakash Graham M.D. [address] [place] [phone] Scheduled Procedures Name Priority Associated Diagnoses Date/Ti [...] on filedocumented in this encounter Care Teams Passenger Booking Clerk Relationship Specialty Start Date End Date Elsewhere, Pcp PCP - General Internal Medicine 05/29/19 documented as of this encounter
--- OUTSIDE RECORDS SUMMARY | 2024-05-28 14:47 | XMS_ITS | Encounter Summary ---
Author Organization [facility] Address [address] [place] [address] Care Team Providers Care Price Analyst Name Role Phone Elsewhere, Pcp Primary Care Provider Unavailabl e Reason for Visit * Outpatient (Routine) - Closed Specialty Diagnoses / Procedures Referred By Contmuriel t Referred To Contact Ophthalmology Prakash Graham M.D. [address] [place] [phone] [facility] Referral ID Status Reason Start Date Expiration Date Visits Re quested Visits Authorized [id number] Closed 03/16/2024 09/15/2025 1 1 Encounter Details Date Type Department Care Team (Latest Contact Info) Description 04/14/2024 2:30 PM CDT Office Visit Department of Ophthalmology in [place], [place] [address] [place] [phone] Prakash Graham M.D. [address] [place] [phone] Panuveitis Right (Primary Dx); Proliferative Vitreoretinopathy Right Social History Tobacco Use Types Packs/Day Years Used Date Smoking Tobacco: Former Cigarettes 0.7 70.4 0 03/28/1975 - 01/09/2022 Smokeless Tobacco: Never Comments:On again off again Alcohol Use Standard Drinks/Week Comments Yes 5 (1 standard drink = 0.6 oz pur e alcohol) occasional C Utilities Answer Date Recorded In the past 12 months has [employer] electric, gas, oil, or water company threatened [...] How often do you attend latter-day or adventist serv ices? Never 06/27/2020 Do [...] medical care, and heating? Somewhat hard 06/27/2020 [facility] of Occupat ional Health - Occupational Stress [...] your living situation today? I [facility] a [facility] place to live 11/05/2023 Education [...] 06/01/2024 10:00 AM CDT Hospital Encounter [facility] OR [address] [place] [phone] Prakash Graham M.D. [address] [place] [phone] 06/01/2024 2:50 PM CDT - 06/01/2024 5:47 PM CDT Surgery [facility] OR [facility] [address] [place] [phone] Prakash Graham M.D. [address] [place] [phone] VITRECTOMY, PARS PLANA 25 GAUGE, MEMBRANE PEEL, SILICONE OIL, SCLERAL BUCKLE, ALL ASSOCIATED PROCEDURES RIGHT EYE. 06/02/2024 8:00 AM CDT Office Visit Department of Ophthalmology in [place], [place] [address] [place] [phone] Prakash Graham M.D. [address] [place] [phone] 06/09/2024 9:30 AM CDT Ancillary Procedure Department of Ophthalmology in [place], [place] [address] [place] [phone] Prakash Graham M.D. [address] [place] [phone] 06/09/2024 10:00 AM CDT Office Visit Department of Ophthalmology in [place], [place] [address] [place] [phone] Prakash Graham M.D. [address] [place] [phone] 07/16/2024 8:45 AM CDT Ancillary Procedure Department of Ophthalmology in [place], [place] [address] [place] [phone] Prakash Graham M.D. [address] [place] [phone] 07/16/2024 9:15 AM CDT Ancillary Procedure Department of Ophthalmology in [place], [place] [address] [place] [phone] Prakash Graham M.D. [address] [place] [phone] 07/16/2024 9:30 AM CDT Office Visit Department of Ophthalmology in [address] [phone] Kenya Garza M.D. [address] [place] [phone] 07/16/2024 12:45 PM CDT Office Visit Department of Ophthalmology in [address] [phone] Prakash Graham M.D. [address] [place] [phone] Scheduled Procedures Name Priority Associated Diagnoses Date/Ti [...] Right documented in this encounter Care Teams Price Analyst Relationship Specialty Start Date End Date Elsewhere, Pcp PCP - General Internal Medicine 05/29/19 documented as of this encounter
--- OUTSIDE RECORDS SUMMARY | 2024-05-28 14:47 | XMS_ITS | Encounter Summary ---
Author Organization [facility] Address [address] [place] [address] Care Team Providers Care Tandem Mill Sticker Name Role Phone Elsewhere, Pcp Primary Care Provider Unavailabl e Encounter Details Date Type Department Care Team (Latest Contact Info) Description 04/16/2024 2:00 PM CDT Ancillary Procedure Department of Ophthalmology in [place], [place] [address] [place] [address] Kenya Garza M.D. [address] [place] [address] Necrosis Retinal Acute Right Social History Tobacco Use Types Packs/Day Years Used Date Smoking Tobacco: Former Cigarettes 0.7 70.4 0 03/28/1975 - 01/09/2022 Smokeless Tobacco: Never Comments:On again off again Alcohol Use Standard Drinks/Week Comments Yes 5 (1 standard drink = 0.6 oz pur e alcohol) occasional [facility] Utilities Answer Date Recorded In the past 12 months has [employer], gas, oil, or water [employer] threatened to shut off services in your home? No 11/05/2023 Social Connection and Isolation Panel [NHANES] A nswer Date Recorded In a typical week, how many times do you talk on the phone with family, friends, or neighbors? Once a week 06/27/2020 How often do you get together with friends or re latives? Never 06/27/2020 How often do you attend jew or temple serv ices? Never 06/27/2020 Do you belong to any clubs o r organizations such as jew groups, unions, fraternal or athletic groups, or [...] medical care, and heating? Somewhat hard 06/27/2020 [facility] of Occupat ional Health - Occupational Stress [...] Encounter [facility] OR [facility] [place] [phone] Prakash Graham M.D. [address] [place] [phone] 06/01/2024 2:50 PM CDT - 06/01/2024 5:47 PM CDT Surgery [facility] OR [facility] [address] [place] [phone] Prakash Graham M.D. [address] [place] [phone] VITRECTOMY, PARS PLANA 25 GAUGE, MEMBRANE PEEL, SILICONE OIL, SCLERAL BUCKLE, ALL ASSOCIATED PROCEDURES RIGHT EYE. 06/02/2024 8:00 AM CDT Office Visit Department of Ophthalmology in [place], [place] [address] [place] [phone] Prakash Graham M.D. [address] [place] [phone] 06/09/2024 9:30 AM CDT Ancillary Procedure Department of Ophthalmology in [place], [place] [address] [place] [phone] Prakash Graham M.D. [address] [place] [phone] 06/09/2024 10:00 AM CDT Office Visit Department of Ophthalmology in [place], [place] [address] [place] [phone] Prakash Graham M.D. [address] [place] [phone] 07/16/2024 8:45 AM CDT Ancillary Procedure Department of Ophthalmology in [place], [place] [address] [place] [phone] Prakash Graham M.D. [address] [place] [phone] 07/16/2024 9:15 AM CDT Ancillary Procedure Department of Ophthalmology in [place], [place] [address] [place] [phone] Prakash Graham M.D. [address] [place] [phone] 07/16/2024 9:30 AM CDT Office Visit Department of Ophthalmology in [address] [phone] Kenya Garza M.D. [address] [place] [phone] 07/16/2024 12:45 PM CDT Office Visit Department of Ophthalmology in [address] [phone] Prakash Graham M.D. [address] [place] [phone] Scheduled Procedures Name Priority Associated Diagnoses Date/Ti [...] ciliary body detachment noted, possible ciliochoroidal effusion. [facility] Kenya Garza M.D. OPHTH ULTRASOUND OPHTHALMOLGY NON-IMAGING ORDERS documented in this encounter Visit Diagnoses Diagnosis Panuveitis Right Necrosis Retinal Acute Right Chronic Obstructive Pulmonary Disease Without Exacerbation (HCC) Necrosis Retinal Acute Right Panuveitis Right Necrosis Retinal Acute Right documented in this encounter Care Teams Tandem Mill Sticker Relationship Specialty Start Date End Date Elsewhere, Pcp PCP - General Internal Medicine 05/29/19 documented as of this encounter
--- OUTSIDE RECORDS SUMMARY | 2024-05-28 14:47 | XMS_ITS | Encounter Summary ---
Author Organization [facility] Address [address] [place] [address] Care Team Providers Care Shortage Worker Name Role Phone Elsewhere, Pcp Primary Care Provider Unavailabl e Encounter Details Date Type Department Care Team (Latest Contact Info) Description 05/20/2024 Clinical Communication Department of Ophthalmology in [place], [place] [address] [place] [address] Renaldo Hawk M.D. [address] [place] [address] Social History Tobacco Use Types Packs/Day Years Used Date Smoking Tobacco: Former Cigarettes 0.7 70.4 0 03/28/1975 - 01/09/2022 Smokeless Tobacco: Never Comments:On again off again Alcohol Use Standard Drinks/Week Comments Yes 5 (1 standard drink = 0.6 oz pur e alcohol) occasional [facility] Utilities Answer Date Recorded In the past 12 months has [facility], gas, oil, or water [employer] threatened to shut off services in your home? No 11/05/2023 Social Connection and Isolation Panel [NHANES] A nswer Date Recorded In a typical week, how many times do you talk on the phone with family, friends, or neighbors? Once a week 06/27/2020 How often do you get together with friends or re latives? Never 06/27/2020 How often do you attend hindu or orthodoxy serv ices? Never 06/27/2020 Do [...] and heating? Somewhat hard 06/27/2020 [facility] [place] of Occupat ional Health - Occupational Stress [...] 06/01/2024 10:00 AM CDT Hospital Encounter [facility] OR [facility] [address] [place] [phone] Prakash Graham M.D. [address] [place] [phone] 06/01/2024 2:50 PM CDT - 06/01/2024 5:47 PM CDT Surgery [facility] OR [facility] [address] [place] [phone] Prakash Graham M.D. [address] [place] [phone] VITRECTOMY, PARS PLANA 25 GAUGE, MEMBRANE PEEL, SILICONE OIL, SCLERAL BUCKLE, ALL ASSOCIATED PROCEDURES RIGHT EYE. 06/02/2024 8:00 AM CDT Office Visit Department of Ophthalmology in [place], [place] [address] [place] [phone] Prakash Graham M.D. [address] [place] [phone] 06/09/2024 9:30 AM CDT Ancillary Procedure Department of Ophthalmology in [place], [place] [address] [place] [phone] Prakash Graham M.D. [address] [place] [phone] 06/09/2024 10:00 AM CDT Office Visit Department of Ophthalmology in [place], [place] [address] [place] [phone] Prakash Graham M.D. [address] [place] [phone] 07/16/2024 8:45 AM CDT Ancillary Procedure Department of Ophthalmology in [place], [place] [address] [place] [phone] Prakash Graham M.D. [address] [place] [phone] 07/16/2024 9:15 AM CDT Ancillary Procedure Department of Ophthalmology in [place], [place] [address] [place] [phone] Prakash Graham M.D. [address] [place] [phone] 07/16/2024 9:30 AM CDT Office Visit Department of Ophthalmology in [address] [phone] Kenya Garza M.D. [address] [place] [phone] 07/16/2024 12:45 PM CDT Office Visit Department of Ophthalmology in [address] [phone] Prakash Graham M.D. [address] [place] [phone] Scheduled Procedures Name Priority Associated Diagnoses Date/Ti me VITRECTOMY - PARS PLANA 25 GAUGE Panuveitis Right Necrosis Retinal Acute Right 06/01/2024 2:50 PM CDT SCLERAL BUCKLING Panuveitis Right Necrosis Retinal Acute Right 06/01/2024 2:50 PM CDT documented as of this encounter Visit Diagnoses Not on filedocumented in this encounter Care Teams Shortage Worker Relationship Specialty Start Date End Date Elsewhere, Pcp PCP - General Internal Medicine 05/29/19 documented as of this encounter
--- OUTSIDE RECORDS SUMMARY | 2024-05-28 14:47 | XMS_ITS | Encounter Summary ---
Author Organization [facility] Address [address] [place] [address] Care Team Providers Care Publishing Manager Name Role Phone Elsewhere, Pcp Primary [...] How often do you attend adventist or worship serv ices? Never 06/27/2020 Do [...] care, and heating? Somewhat hard 06/27/2020 [facility] of Occupat ional [facility] - Occupational Stress Questionnaire Answer Date Recorded [...] 06/01/2024 10:00 AM CDT Hospital Encounter [facility] OR [facility] [place] [phone] Prakash Graham M.D. [address] [place] [phone] 06/01/2024 2:50 PM CDT - 06/01/2024 5:47 PM CDT Surgery [facility] OR [address] [place] [phone] Praaksh Graham M.D. [address] [place] [phone] VITRECTOMY, PARS PLANA 25 GAUGE, MEMBRANE PEEL, SILICONE OIL, SCLERAL BUCKLE, ALL ASSOCIATED PROCEDURES RIGHT EYE. 06/02/2024 8:00 AM CDT Office Visit Department of Ophthalmology in [address] [phone] Prakash Graham M.D. [address] [place] [phone] 06/09/2024 9:30 AM CDT Ancillary Procedure Department of Ophthalmology in [place], [place] [address] [place] [phone] Prakash Graham M.D. [address] [place] [phone] 06/09/2024 10:00 AM CDT Office Visit Department of Ophthalmology in [place], [place] [address] [place] [phone] Prakash Graham M.D. [address] [place] [phone] 07/16/2024 8:45 AM CDT Ancillary Procedure Department of Ophthalmology in [place], [place] [address] [place] [phone] Prakash Graham M.D. [address] [place] [phone] 07/16/2024 9:15 AM CDT Ancillary Procedure Department of Ophthalmology in [place], [place] [address] [place] [phone] Prakash Graham M.D. [address] [place] [phone] 07/16/2024 9:30 AM CDT Office Visit Department of Ophthalmology in [place], [place] [address] [place] [phone] Kenya Garza M.D. [address] [place] [phone] 07/16/2024 12:45 PM CDT Office Visit Department of Ophthalmology in [place], [place] [address] [place] [phone] Prakash Graham M.D. [address] [place] [phone] Scheduled Procedures Name Priority Associated Diagnoses Date/Ti [...] on filedocumented in this encounter Care Teams Publishing Manager Relationship Specialty Start Date End Date Elsewhere, Pcp PCP - General Internal Medicine 05/29/19 documented as of this encounter
--- OUTSIDE RECORDS SUMMARY | 2024-05-28 14:47 | XMS_ITS | Referral Summary ---
Author Organization [facility] Address [address] [place] [address] Care Team Providers Care Consumer Lender Name Role Phone Elsewhere, Pcp Primary Care Provider Unavailabl e Source Comments Patient records contain information from all sites at [facility]. For routine questions regarding patient records, call [phone] during business hours, M-F 8:00 AM - 5:00 PM Central Time. Record requests for emergency care only can be directed to [phone] at any time.[facility] Encounters Date Type Department Care Team Description 05/26/2024 9:45 AM CDT Office Visit Department of Ophthalmology in [place], [place] [address] [place] [address] Prakash Graham M.D. Necrosis Retinal Acute Right (Primary Dx) 05/20/2024 Clinical Communication Department of Ophthalmology in [place], [place] [address] [place] [phone] Renaldo Hawk M.D. 05/07/2024 2:00 PM CDT Office Visit Department of Ophthalmology in [place], [place] [address] [place] [phone] Renaldo Hawk M.D. Necrosis Retinal Acute Right (Primary Dx); Proliferative Vitreoretinopathy Right; Panuveitis Right; Primary Hypotony Right Eye; Posterior Reversible Encephalopathy Syndrome 05/04/2024 Clinical Communication Department of Ophthalmology in [place], [place] [address] [place] [phone] Kenya Garza M.D. Follow Up Visit from ER 04/27/2024 Clinical Communication Department of Ophthalmology in [place], [place] [address] [place] [address] Prakash Graham M.D. Surgery today 04/2704/16/2024 12:05 AM CDT Ancillary Procedure Department of Ophthalmology 04/16/2024 Ancillary Procedure Department of Ophthalmology 04/16/2024 2:30 PM CDT Office Visit Department of Ophthalmology in [place] [address] [place] [phone] Kenya Garza M.D. Necrosis Retinal Acute Right (Primary Dx); Proliferative Vitreoretinopathy Right 04/16/2024 2:00 PM CDT Ancillary Procedure Department of Ophthalmology in [place], [place] [address] [place] [phone] Kenya Garza M.D. Necrosis Retinal Acute Right 04/16/2024 1:00 PM CDT Ancillary Procedure Department of Ophthalmology in [place] [address] [place] [phone] Kenya Garza M.D. Necrosis Retinal Acute Right 04/14/2024 Ancillary Procedure Department of Ophthalmology 04/14/2024 2:30 PM CDT Office Visit Department of Ophthalmology in [place] [address] [place] [phone] Prakash Graham M.D. Panuveitis Right (Primary Dx); Proliferative Vitreoretinopathy Right 04/14/2024 2:10 PM CDT Ancillary Procedure Department of Ophthalmology in [place] [address] [place] [phone] Prakash Grahma M.D. Panuveitis Right; Necrosis Retinal Acute Right 04/14/2024 11:00 AM CDT Comprehensive Visit Preoperative Evaluation Center in [place], [place] [address] [place] [phone] Prakash Graham M.D. Warner, Paul A, M.D. Panuveitis Right; Necrosis Retinal Acute Right 04/10/2024 Refill Department of Ophthalmology in [place], [place] [address] [place] [address] Kenya Garza M.D. Med Refill 04/01/2024 Refill Department of Ophthalmology in [place] [address] [place] [phone] Raffi Boyd M.D. Med Refill 03/16/2024 Orders Only Department of Ophthalmology in [place] [address] [place] [phone] Shahnaz Amato C.O.AWhitney Necrosis Retinal Acute Right (Primary Dx) 03/16/2024 Orders Only Department of Ophthalmology in [place] [address] [place] [phone] Jean Claude Newsome C.O.AWhitney Panuveitis Right (Primary Dx); Necrosis Retinal Acute Right 03/14/2024 Orders Only Department of Ophthalmology in [place] [address] [place] [phone] Raffi Boyd M.D. 03/13/2024 2:00 PM CDT Procedure visit Department of Ophthalmology in [place], [place] [address] [place] [phone] Prakash Graham M.D. Primary Hypotony Right Eye (Primary Dx); Panuveitis Right; Necrosis Retinal Acute Right 03/13/2024 1:00 PM CDT Office Visit Department of Ophthalmology in [place] [address] [place] [phone] Prakash Graham M.D. Panuveitis Right (Primary Dx); Necrosis Retinal Acute Right 03/13/2024 Orders Only Department of Ophthalmology in [place] [address] [place] [phone] Jean Claude Newsome C.O.A. Necrosis Retinal Acute Right (Primary Dx) 03/13/2024 12:10 AM CDT Ancillary Procedure Department of Ophthalmology 03/13/2024 12:05 AM CDT Ancillary Procedure Department of Ophthalmology 03/13/2024 Ancillary Procedure Department of Ophthalmology 03/13/2024 12:00 PM CDT Ancillary Procedure Department of Ophthalmology in [place], [place] [address] [place] [phone] Kenya Garza M.D. Panuveitis Right; Necrosis Retinal Acute Right 03/13/2024 11:30 AM CDT Office Visit Department of Ophthalmology in [place], [place] [address] [place] [address] Kenya Garza M.D. Necrosis Retinal Acute Right (Primary Dx); Panuveitis Right 03/13/2024 8:00 AM CDT Ancillary Procedure Department of Ophthalmology in [place], [place] [address] [place] [address] Kneya Garza M.D. Panuveitis Right; Necrosis Retinal Acute Right 03/11/2024 Clinical Communication Department of Ophthalmology in [place], [place] [address] [place] [address] Kenya Garza M.D. 03/10/2024 Clinical Communication Department of Ophthalmology in [place], [place] [address] [place] [address] Kenya Garza M.D. from Last 3 Months Allergies Active Allergy Reactions Criticality Noted Date Comments Aller Xt-[place] Pollen-Kings Blisters,Itching,Ra sh High 06/21/2020 Methotrexate Other (see [...] mg 24 hr tabletIndications :Beat Premature Ventricular,Coron sdiney Artery Disease Without Angina Pectoris Take 1 [...] = 0.6 oz pur e alcohol) occasional [employer] Utilities Answer Date Recorded In the past 12 months has th Compet[employer] electric, gas, oil, or water company threatened [...] How often do you attend anabaptism or anglican serv ices? Never 06/27/2020 Do [...] hard 06/27/2020 [facility] Questionnaire Answer Date [...] RST [facility] [place] [address] [place] [phone] Prakash Graham M.D. [address] [place] [phone] 06/01/2024 2:50 PM CDT - 06/01/2024 5:47 PM CDT Surgery RST [facility] OR [address] [place] [phone] Prakash Graham M.D. [address] [place] [phone] VITRECTOMY, PARS PLANA 25 GAUGE, MEMBRANE PEEL, SILICONE OIL, SCLERAL BUCKLE, ALL ASSOCIATED PROCEDURES RIGHT EYE. 06/02/2024 8:00 AM CDT Office Visit Department of Ophthalmology in [place], [place] [address] [place] [phone] Praksah Graham M.D. [address] [place] [phone] 06/09/2024 9:30 AM CDT Ancillary Procedure Department of Ophthalmology in [place], [place] [address] [place] [phone] Prakash Graham M.D. [address] [place] [phone] 06/09/2024 10:00 AM CDT Office Visit Department of Ophthalmology in [place], [place] [address] [place] [phone] Prakash Graham M.D. [address] [place] [phone] 07/16/2024 8:45 AM CDT Ancillary Procedure Department of Ophthalmology in [place], [place] [address] [place] [phone] Prakash Graham M.D. [address] [place] [phone] 07/16/2024 9:15 AM CDT Ancillary Procedure Department of Ophthalmology in [place], [place] [address] [place] [phone] Prakash Graham M.D. [address] [place] [phone] 07/16/2024 9:30 AM CDT Office Visit Department of Ophthalmology in [place] [address] [place] [phone] Kenya Garza M.D. [address] [place] [phone] 07/16/2024 12:45 PM CDT Office Visit Department of Ophthalmology in [address] [phone] Prakash Graham M.D. [address] [place] [phone] Scheduled Procedures Name Priority Associated Diagnoses Date/Ti me VITRECTOMY - PARS PLANA 25 GAUGE Panuveitis Right Necrosis Retinal Acute Right 06/01/2024 2:50 PM CDT SCLERAL BUCKLING Panuveitis Right Necrosis Retinal Acute Right 06/01/2024 2:50 PM CDT Medical Devices Implanted Type Area Chief Librarian Circulation Department Device Identifier Shelf Expiration Date Model / [...] METABOLIC PANEL, S/P Routine 11/05/2023 4:03 PM GUM MACHINE OPERATOR Uveitis CT CHEST WITH IV CONTRAST RAD [...] ciliary body detachment noted, possible ciliochoroidal effusion. [facility] Kenya Garza M.D. [facility]TR[facility]OUND Performing Organization Address [facility] Co de Phone Number OPHTHALMOL NON-IMAGING [...] ciliary body detachment noted, possible ciliochoroidal effusion. [facility] Kenya Garza M.D. [facility]TR[facility] OPHTHALMOL NON-IMAGING ORDERS * Eyes [facility] Image Exam (04/16/2024 12:05 AM CDT) Only the most recent of5 resultswithin the time period is included. Narrative IISC - 04/16/2024 2:48 PM CDT This order has been created and auto-finalized to support the import of images acquired without order. The clinical documentation to support these images can be found on the encounter that produced images. Provider Not In System IMG NON RAD IMAGI NG PROCEDURES Performing Organization Address [facility] de Phone Number IIMS NA * Optical Coherence Tomography - Macula/Retina - OU - Both Eyes (04/14/2024 2:22 PM CDT) Narrative OPHTHALMOLOGY IMAGING EXAM - 04/14/2024 4:40 PM CDT Right Eye OCT device used was Spectralis . Left Eye OCT device used was Spectralis . Notes See note from visit on 04/14/2024. Prakash Graham M.D. OPHTH TOMOGRAPHY Performing Organization Address [facility] de Phone Number OPHTHALMOLOGY IMAGING EXAM * PET skull to mid thigh-Outside NM Pet (03/19/2024 6:30 PM CDT) 03/19/2024 6:30 PM CDT Narrative IISC - 03/19/2024 7:59 PM CDT This order has been created and auto-finalized to support the import of outside images. If available, original interpretation can be found on the Media Tab in Chart Review, in Document Viewer, or as an image in QREADS. If a re-interpretation or overread is required please follow defined workflow. ?? Provider Not In System [facility] NM PROCEDURES Performing Organization Address [facility] de Phone Number IIMS NA * [...] 9 o'clock right eye Prakash Graham M.D. OPH CLINIC PROCED URES Performing Organization Address [facility] Co de Phone Number OPHTHALMOLGY NON-IMAGING [...] possible ciliochoroidal effusion. BriannaK Kenya Garza M.D. [facility]TR[facility]OUND Performing Organization Address [facility] Co de Phone Number OPHTHALMOLGY NON-IMAGING [...] possible ciliochoroidal effusion. JULIAN Kenya Garza M.D. [facility]TR[facility] Performing Organization Address [facility] Co de Phone Number [facility] NON-IMAGING ORDERS * (ABNORMAL) Comprehensive Metabolic Panel (11/05/2023 4:03 PM GUM MACHINE OPERATOR) Potassium, S 4.4 3.6 - 5.2 mmol/L 11/05/2023 5:04 PM GUM MACHINE OPERATOR DTL Sodium, S 139 135 - 145 mmol/L 11/05/2023 5:04 PM GUM MACHINE OPERATOR DTL Chloride, S 101 98 - 107 mmol/L 11/05/2023 5:04 PM GUM MACHINE OPERATOR DTL Bicarbonate, S 27 22 - 29 mmol/L 11/05/2023 5:04 PM GUM MACHINE OPERATOR DTL Anion Gap 11 7 - 15 11/05/2023 5:04 PM GUM MACHINE OPERATOR DTL BUN (Blood Urea Nitrogen), S 17 6 - 21 mg/dL 11/05/2023 5:04 PM GUM MACHINE OPERATOR DTL Creatinine 0.76 0.59 - 1.04 mg/dL 11/05/2023 5:04 PM GUM MACHINE OPERATOR DTL Estimated GFR (eGFR) 86 >=60 mL/min/BS A 11/05/2023 5:04 PM GUM MACHINE OPERATOR DTL Comment: Estimated GFR calculated using the 2020 CKD_EPI creatinine equation. Calcium, Total, S 10.1 8.8 - 10.2 mg/dL 11/05/2023 5:20 PM GUM MACHINE OPERATOR DTL Glucose, S 104 70 - 140 mg/dL 11/05/2023 5:04 PM GUM MACHINE OPERATOR DTL Protein, Total, S 6.1(L) 6.3 - 7.9 g/dL 11/05/2023 5:04 PM GUM MACHINE OPERATOR DTL Albumin, S 4.3 3.5 - 5.0 g/dL 11/05/2023 5:04 PM GUM MACHINE OPERATOR DTL Aspartate Aminotransferase (AST), S 16 8 - 43 U/L 11/05/2023 5:04 PM GUM MACHINE OPERATOR DTL Alkaline Phosphatase, S 81 35 - 104 U/L 11/05/2023 5:04 PM GUM MACHINE OPERATOR DTL Alanine Aminotransferase (ALT), S 16 7 - 45 U/L 11/05/2023 5:04 PM GUM MACHINE OPERATOR DTL Bilirubin, Total, S 1.2 0.0 - 1.2 mg/dL 11/05/2023 5:04 PM GUM MACHINE OPERATOR DTL Blood (Blood, Venous) 11/05/2023 4:03 PM GUM MACHINE OPERATOR 11/05/2023 4:41 PM GUM MACHINE OPERATOR Kenya Garza M.D. LAB BLOOD ADD-ON [facility] [address] [place] [address], [place] DTL [facility] [facility] [address] [place] [address] * CT Chest with IV Contrast (03/31/2020 [...] Recently Relevant to Health Maintenance Care Teams Consumer Lender Relationship Specialty Start Date End Date Elsewhere, Pcp PCP - General Internal Medicine 05/29/19
--- OUTSIDE RECORDS SUMMARY | 2024-05-28 14:48 | XMS_ITS | Encounter Summary ---
Author Organization [facility] Address [address] [place] [address] Care Team Providers Care Fixed Income Manager Name Role Phone Elsewhere, Pcp Primary Care Provider Unavailabl e Encounter Details Date Type Department Care Team (Late st Contact Info) Description 03/16/2024 Orders Only Department of Ophthalmology in [place], [place] [address] [place] [address] Shahnaz Amato, C.O.A. [address] [place] [address] Necrosis Retinal Acute Right (Primary Dx) Social History Tobacco Use Types Packs/Day Years Used Date Smoking Tobacco: Light Smoker Cigarettes 0.5 44.3 Started: 02/26/1980 Smokeless Tobacco: Never Comments:On again off again Alcohol Use Standard Drinks/Week Comments Yes 0 (1 standard drink = 0.6 oz pur e alcohol) [facility] Utilities Answer Date Recorded In [...] How often do you attend catholic or christianity serv ices? Never 06/27/2020 Do [...] [facility] - [...] your living situation today? [facility] 11/05/2023 Education Answer [...] 06/01/2024 10:00 AM CDT [facility] [place] [phone] Prakash Graham M.D. [address] [place] [phone] 06/01/2024 2:50 PM CDT - 06/01/2024 5:47 PM CDT Surgery RST [facility] OR [address] [place] [phone] Prakash Graham M.D. [address] [place] [phone] VITRECTOMY, PARS PLANA 25 GAUGE, MEMBRANE PEEL, SILICONE OIL, SCLERAL BUCKLE, ALL ASSOCIATED PROCEDURES RIGHT EYE. 06/02/2024 8:00 AM CDT Office Visit Department of Ophthalmology in [place], [place] [address] [place] [phone] Prakash Graham M.D. [address] [place] [phone] 06/09/2024 9:30 AM CDT Ancillary Procedure Department of Ophthalmology in [place], [place] [address] [place] [phone] Prakash Graham M.D. [address] [place] [phone] 06/09/2024 10:00 AM CDT Office Visit Department of Ophthalmology in [place], [place] [address] [place] [phone] Prakash Graham M.D. [address] [place] [phone] 07/16/2024 8:45 AM CDT Ancillary Procedure Department of Ophthalmology in [place], [place] [address] [place] [phone] Prakash Graham M.D. [address] [place] [phone] 07/16/2024 9:15 AM CDT Ancillary Procedure Department of Ophthalmology in [place], [place] [address] [place] [phone] Prakash Graham M.D. [address] [place] [phone] 07/16/2024 9:30 AM CDT Office Visit Department of Ophthalmology in [address] [phone] Kenya Garza M.D. [address] [place] [phone] 07/16/2024 12:45 PM CDT Office Visit Department of Ophthalmology in [place], [place] [address] [place] [phone] Prakash Graham M.D. [address] [place] [phone] Scheduled Procedures Name Priority Associated Diagnoses Date/Ti me VITRECTOMY - PARS PLANA 25 GAUGE Panuveitis Right Necrosis Retinal Acute Right 06/01/2024 2:50 PM CDT SCLERAL BUCKLING Panuveitis Right Necrosis Retinal Acute Right 06/01/2024 2:50 PM CDT documented as of this encounter Results [...] ciliary body detachment noted, possible ciliochoroidal effusion. [facility] Kenya Garza M.D. [facility]TR[facility] Performing Organization Address [facility] Co de Phone Number OPHTHALMOLGY [...] ciliary body detachment noted, possible ciliochoroidal effusion. [facility] Kenya Garza M.D. [facility] Performing Organization Address [facility] Co de Phone Number OPHTHALMOLGY NON-IMAGING ORDERS documented in this encounter Visit Diagnoses Diagnosis Panuveitis Right Necrosis Retinal Acute Right Chronic Obstructive Pulmonary Disease Without Exacerbation (HCC) Necrosis Retinal Acute Right- Primary Necrosis Retinal Acute Right Necrosis Retinal Acute Right Panuveitis Right Necrosis Retinal Acute Right documented in this encounter Care Teams Fixed Income Manager Relationship Specialty Start Date End Date Elsewhere, Pcp PCP - General Internal Medicine 05/29/19 documented as of this encounter
--- OUTSIDE RECORDS SUMMARY | 2024-05-28 14:48 | XMS_ITS | Encounter Summary ---
Author Organization [facility] Address [address] [place] [address] Care Team Providers Care [employer] Name Role Phone Elsewhere, Pcp Primary Care Provider Unavailabl e Reason for Visit * Outpatient (Routine) - Closed Specialty Diagnoses / Procedures Referred By Contmuriel t Referred To Contact Anesthesiology Diagnoses Panuveitis Right Necrosis Retinal Acute Right Prakash Graham M.D. [address] [place] [phone] [facility] Referral ID Status Reason Start Date Expiration Date Visits Re quested Visits Authorized [id number] Closed 03/13/2024 09/12/2025 1 1 Encounter Details Date Type Department Care Team (Latest Contact Info) Description 04/14/2024 11:00 AM CDT Comprehensive Visit Preoperative Evaluation Center in [place], [place] [address] [place] [phone] Prakash Graham M.D. [address] [place] [phone] Franck Maldonado M.D. [address] [place] [phone] Panuveitis Right; Necrosis Retinal Acute Right Social [...] How often do you attend zoroastrian or holiness serv ices? Never 06/27/2020 Do [...] and heating? Somewhat hard 06/27/2020 [facility] of Occupat ional Health - Occupational Stress [...] / PLAN 68 yo F (BMI 26) [facility] for [facility] prior to outpatient R vitrectomy w/ Dr. Graham at [facility] on 04/27/2024. # Panuveitis with [...] (Metoprolol). # COPD (Anoro Ellipta). # Former jail cigarette smoker, quit 2021. # H/o interstitial pneumonitis related to low-dose MTX with subsequent steroid treatment since hospitalization at [facility] in August 2023. # Bullous Pemphigoid [...] minimum ECG (12/2023): Sinus rhythm with short VT with occasional Premature ventricular complexes Septal infarct [...] 06/01/2024 10:00 AM CDT Hospital Encounter [facility] [address] [place] [address] Prakash Graham M.D. [address] [place] [address] 06/01/2024 2:50 PM CDT - 06/01/2024 5:47 PM CDT Surgery [facility] [place] [address] [place] [phone] Prakash Graham M.D. [address] [place] [phone] VITRECTOMY, PARS PLANA 25 GAUGE, MEMBRANE PEEL, SILICONE OIL, SCLERAL BUCKLE, ALL ASSOCIATED PROCEDURES RIGHT EYE. 06/02/2024 8:00 AM CDT Office Visit Department of Ophthalmology in [place], [place] [address] [place] [phone] Prakash Graham M.D. [address] [place] [phone] 06/09/2024 9:30 AM CDT Ancillary Procedure Department of Ophthalmology in [place], [place] [address] [place] [phone] Prakash Graham M.D. [address] [place] [phone] 06/09/2024 10:00 AM CDT Office Visit Department of Ophthalmology in [address] [phone] Prakash Graham M.D. [address] [place] [phone] 07/16/2024 8:45 AM CDT Ancillary Procedure Department of Ophthalmology in [place], [place] [address] [place] [phone] Prakash Graham M.D. [address] [place] [phone] 07/16/2024 9:15 AM CDT Ancillary Procedure Department of Ophthalmology in [place], [place] [address] [place] [address] Prakash Graham M.D. [address] [place] [phone] 07/16/2024 9:30 AM CDT Office Visit Department of Ophthalmology in [place], [place] [address] [place] [phone] Kenya Garza M.D. [address] [place] [phone] 07/16/2024 12:45 PM CDT Office Visit Department of Ophthalmology in [place], [place] [address] [place] [address] Prakash Graham M.D. [address] [place] [phone] Scheduled Procedures Name Priority Associated Diagnoses Date/Ti [...] Right documented in this encounter Care Teams [employer] Relationship Specialty Start Date End Date Elsewhere, Pcp PCP - General Internal Medicine 05/29/19 documented as of this encounter
--- OUTSIDE RECORDS SUMMARY | 2024-05-28 14:48 | XMS_ITS | Encounter Summary ---
Author Organization [facility] Address [address] [place] [address] Care Team Providers Care City Comptroller Name Role Phone Elsewhere, Pcp Primary Care Provider Unavailabl e Reason for Referral * Outpatient (Routine) - Closed Specialty Diagnoses / Procedures Referred By Apolinar lopez Referred To Contact Procedures Cyclophotocoagulation, Transscleral - OD - Right Eye Prakash Graham M.D. 200 [place] [address] [facility] Referral ID Status Reason Start Date Expiration Date Visits Re quested Visits Authorized [id number] Closed 03/13/2024 03/13/2025 1 1 Reason for Visit * Outpatient (Routine) - Canceled Specialty Diagnoses / Procedures Referred By Apolinar lopez Referred To Contact Diagnoses Panuveitis Right Necrosis Retinal Acute Right Procedures Intravitreal Injection, Pharmacologic Agent - OD - Right Eye Prakash Graham M.D. 200 [place] [address] [facility] Referral ID Status Reason Start Date Expiration Date V isits Requested Visits Authorized [id number] Canceled 03/13/2024 03/13/2025 1 1 Encounter Details Date Type Department Care Team (Latest Contact Info) Description 03/13/2024 2:00 PM CDT Procedure visit Department of Ophthalmology in [place], [place] 200 [place] [phone] [place] [address] Primary Hypotony Right Eye (Primary Dx); Panuveitis Right; Necrosis Retinal Acute Right Social History Tobacco Use Types Packs/Day Years Used Date Smoking Tobacco: Light Smoker Cigarettes 0.5 44.3 Started: 02/26/1980 Smokeless Tobacco: Never Comments:On again off again Alcohol Use Standard Drinks/Week Comments Yes 0 (1 standard drink = 0.6 oz pur e alcohol) [facility] Utilities Answer Date Recorded In the past 12 months has th [employer] electric, gas, oil, or water company [...] How often do you attend methodist or denominational serv ices? Never 06/27/2020 Do [...] medical care, and heating? Somewhat hard 06/27/2020 [facility] [place] of Occupat ional Health - Occupational Stress [...] living situation today? I [facility] place [facility] 11/05/2023 Education [...] 06/01/2024 10:00 AM CDT Hospital Encounter [facility] [place] [address] [place] [phone] Prakash Graham M.D. [address] [place] [phone] 06/01/2024 2:50 PM CDT - 06/01/2024 5:47 PM CDT Surgery [facility] [place] [address] [place] [phone] Prakash Graham M.D. [address] [place] [phone] VITRECTOMY, PARS PLANA 25 GAUGE, MEMBRANE PEEL, SILICONE OIL, SCLERAL BUCKLE, ALL ASSOCIATED PROCEDURES RIGHT EYE. 06/02/2024 8:00 AM CDT Office Visit Department of Ophthalmology in [place], [place] [address] [place] [phone] Prakash Graahm M.D. [address] [place] [phone] 06/09/2024 9:30 AM CDT Ancillary Procedure Department of Ophthalmology in [place], [place] [address] [place] [phone] Prakash Graham M.D. [address] [place] [phone] 06/09/2024 10:00 AM CDT Office Visit Department of Ophthalmology in [address] [phone] Prakash Graham M.D. [address] [place] [phone] 07/16/2024 8:45 AM CDT Ancillary Procedure Department of Ophthalmology in [place], [place] [address] [place] [phone] Prakash Graham M.D. [address] [place] [phone] 07/16/2024 9:15 AM CDT Ancillary Procedure Department of Ophthalmology in [place], [place] [address] [place] [phone] Prakash Graham M.D. [address] [place] [phone] 07/16/2024 9:30 AM CDT Office Visit Department of Ophthalmology in [place], [place] [address] [place] [phone] Kenya Garza M.D. [address] [place] [phone] 07/16/2024 12:45 PM CDT Office Visit Department of Ophthalmology in [place], [place] [address] [place] [phone] Prakash Graham M.D. [address] [place] [phone] Scheduled Procedures Name Priority Associated Diagnoses Date/Ti [...] Right documented in this encounter Care Teams City Comptroller Relationship Specialty Start Date End Date Elsewhere, Pcp PCP - General Internal Medicine 05/29/19 documented as of this encounter
--- OUTSIDE RECORDS SUMMARY | 2024-05-28 14:48 | XMS_ITS | Encounter Summary ---
Author Organization [facility] Address [address] [place] [address] Care Team Providers Care Supervisor Order Takers Name Role Phone Elsewhere, Pcp Primary Care Provider Unavailabl e Reason for Visit * Reason Comments Med Refill Encounter Details Date Type Department Care Team (Late st Contact Info) Description 04/01/2024 Refill Department of Ophthalmology in [place], [place] [address] [place] [phone] Raffi Boyd M.D. [address] [place] [phone] Med Refill Social History Tobacco Use Types Packs/Day Years Used Date Smoking Tobacco: Light Smoker Cigarettes 0.5 44.3 Started: 02/26/1980 Smokeless Tobacco: Never Comments:On again off again Alcohol Use Standard Drinks/Week Comments Yes 0 (1 standard drink = 0.6 oz pur e alcohol) [facility] Utilities Answer Date Recorded In the past 12 months has [employer], gas, oil, or water [employer] threatened to shut off services in your home? No 11/05/2023 Social Connection and Isolation Panel [NHANES] A nswer Date Recorded In a typical week, how many times do you talk on the phone with family, friends, or neighbors? Once a week 06/27/2020 How often do you get together with friends or re latives? Never 06/27/2020 How often do you attend latter day or sikhism serv ices? Never 06/27/2020 Do you belong to any clubs o r organizations such as latter day groups, unions, fraternal or athletic groups, or [...] heating? Somewhat hard 06/27/2020 [facility] of Occupat ional Health - Occupational [...] your living situation today? I have a [facility] place to live 11/05/2023 Education [...] CDT Hospital Encounter [facility] [place] [address] [place] [phone] Prakash Graham M.D. [address] [place] [phone] 06/01/2024 2:50 PM CDT - 06/01/2024 5:47 PM CDT Surgery [facility] [place] [address] [place] [phone] Prakash Graham M.D. [address] [place] [phone] VITRECTOMY, PARS PLANA 25 GAUGE, MEMBRANE PEEL, SILICONE OIL, SCLERAL BUCKLE, ALL ASSOCIATED PROCEDURES RIGHT EYE. 06/02/2024 8:00 AM CDT Office Visit Department of Ophthalmology in [place], [place] [address] [place] [phone] Prakash Graham M.D. [address] [place] [phone] 06/09/2024 9:30 AM CDT Ancillary Procedure Department of Ophthalmology in [place], [place] [address] [place] [phone] Prakash Graham M.D. [address] [place] [phone] 06/09/2024 10:00 AM CDT Office Visit Department of Ophthalmology in [place], [place] [address] [place] [phone] Prakash Graham M.D. [address] [place] [phone] 07/16/2024 8:45 AM CDT Ancillary Procedure Department of Ophthalmology in [place], [place] [address] [place] [phone] Prakash Graham M.D. [address] [place] [phone] 07/16/2024 9:15 AM CDT Ancillary Procedure Department of Ophthalmology in [place], [place] [address] [place] [phone] Prakash Graham M.D. [address] [place] [phone] 07/16/2024 9:30 AM CDT Office Visit Department of Ophthalmology in [address] [phone] Kenya Garza M.D. [address] [place] [phone] 07/16/2024 12:45 PM CDT Office Visit Department of Ophthalmology in [place], [place] [address] [place] [phone] Prakash Graham M.D. [address] [place] [phone] Scheduled Procedures Name Priority Associated Diagnoses Date/Ti me VITRECTOMY - PARS PLANA 25 GAUGE Panuveitis Right Necrosis Retinal Acute Right 06/01/2024 2:50 PM CDT SCLERAL BUCKLING Panuveitis Right Necrosis Retinal Acute Right 06/01/2024 2:50 PM CDT documented as of this encounter Visit Diagnoses Not on filedocumented in this encounter Care Teams Supervisor Order Takers Relationship Specialty Start Date End Date Elsewhere, Pcp PCP - General Internal Medicine 05/29/19 documented as of this encounter
--- OUTSIDE RECORDS SUMMARY | 2024-05-28 14:48 | XMS_ITS | Encounter Summary ---
Author Organization [facility] Address [address] [place] [address] Care Team Providers Care Engineering Group Manager Name Role Phone Elsewhere, Pcp Primary Care Provider Unavailabl e Reason for Referral * Outpatient (Routine) - Closed Specialty Diagnoses / Procedures Referred By Apolinar t Referred To Contact Ophthalmology Prakash Graham M.D. [address] [place] [address] [facility] Referral ID Status Reason Start Date Expiration Date Visits Re quested Visits Authorized [id number] Closed 03/16/2024 09/15/2025 1 1 Encounter Details Date Type Department Care Team (Late st Contact Info) Description 03/16/2024 Orders Only Department of Ophthalmology in [place], [place] [address] [place] [phone] Jean Claude Newsome, C.O.A. Panuveitis Right (Primary [...] How often do you attend christianity or confucianism serv ices? Never 06/27/2020 Do [...] heating? Somewhat hard 06/27/2020 [facility] [place] of Occupat ional Health - Occupational [...] 06/01/2024 10:00 AM CDT [facility] [place] [address] [place] [phone] Prakash Graham M.D. [address] [place] [phone] 06/01/2024 2:50 PM CDT - 06/01/2024 5:47 PM CDT Surgery [facility]ST [facility] [place] [address] [place] [phone] Prakash Graham M.D. [address] [place] [phone] VITRECTOMY, PARS PLANA 25 GAUGE, MEMBRANE PEEL, SILICONE OIL, SCLERAL BUCKLE, ALL ASSOCIATED PROCEDURES RIGHT EYE. 06/02/2024 8:00 AM CDT Office Visit Department of Ophthalmology in [place], [place] [address] [place] [phone] Prakash Graham M.D. [address] [place] [phone] 06/09/2024 9:30 AM CDT Ancillary Procedure Department of Ophthalmology in [place], [place] [address] [place] [phone] Prakash Graham M.D. [address] [place] [phone] 06/09/2024 10:00 AM CDT Office Visit Department of Ophthalmology in [place], [place] [address] [place] [phone] Prakash Graham M.D. [address] [place] [phone] 07/16/2024 8:45 AM CDT Ancillary Procedure Department of Ophthalmology in [place], [place] [address] [place] [phone] Prakash Graham M.D. [address] [place] [phone] 07/16/2024 9:15 AM CDT Ancillary Procedure Department of Ophthalmology in [place], [place] [address] [place] [phone] Prakash Graham M.D. [address] [place] [phone] 07/16/2024 9:30 AM CDT Office Visit Department of Ophthalmology in [place], [place] [address] [place] [phone] Kenya Garza M.D. [address] [place] [phone] 07/16/2024 12:45 PM CDT Office Visit Department of Ophthalmology in [place], [place] [address] [place] [address] Prakash Graham M.D. [address] [place] [address] Scheduled Procedures Name Priority Associated Diagnoses Date/Ti [...] Right documented in this encounter Care Teams Engineering Group Manager Relationship Specialty Start Date End Date Elsewhere, Pcp PCP - General Internal Medicine 05/29/19 documented as of this encounter
--- OUTSIDE RECORDS SUMMARY | 2024-05-28 14:48 | XMS_ITS | Encounter Summary ---
Author Organization [facility] Address [address] [place] [address] Care Team Providers Care Division Order Analyst Name Role Phone Elsewhere, Pcp Primary Care Provider Unavailabl e Reason for Referral * Outpatient (Routine) - Authorized Specialty Diagnoses / Procedures Referred By Contac t Referred To Contact Ophthalmology Prakash Graham M.D. [address] [place] [phone] [facility] Referral ID Status Reason Start Date Expiration Date V isits Requested Visits Authorized [id number] Authorized 03/13/2024 09/12/2025 1 1 Scheduling Instructions 1 MO PO Right Eye, DILATE / OCT OU * Outpatient (Routine) - Authorized Specialty Diagnoses / Procedures Referred By Contac t Referred To Contact Ophthalmology Prakash Graham M.D. 200 [place] [address] [facility] Referral ID Status Reason Start Date Expiration Date V isits Requested Visits Authorized [id number] Authorized 03/13/2024 09/12/2025 1 1 Scheduling Instructions 1 WK PO Right Eye, DILATE OD * Outpatient (Routine) - Authorized Specialty Diagnoses / Procedures Referred By Contac t Referred To Contact Ophthalmology Prakash Graham M.D. 200 [place] [address] [facility] Referral ID Status Reason Start Date Expiration Date V isits Requested Visits Authorized [id number] Authorized 03/13/2024 09/12/2025 1 1 Scheduling Instructions 1 DAY PO Right Eye * Outpatient (Routine) - Closed Specialty Diagnoses / Procedures Referred By Apolinar lopez Referred To Contact Anesthesiology Diagnoses Panuveitis Right Necrosis Retinal Acute Right Prakash Graham M.D. [address] [place] [address] [facility] Referral ID Status Reason Start Date Expiration Date Visits Re quested Visits Authorized [id number] Closed 03/13/2024 09/12/2025 1 1 * Outpatient (Routine) - Canceled Specialty Diagnoses / Procedures Referred By Apolinar lopez Referred To Contact Diagnoses Panuveitis Right Necrosis Retinal Acute Right Procedures Intravitreal Injection, Pharmacologic Agent - OD - Right Eye Prakash Graham M.D. [address] [place] [address] [facility] Referral ID Status Reason Start Date Expiration Date V isits Requested Visits Authorized [id number] Canceled 03/13/2024 03/13/2025 1 1 Encounter Details Date Type Department Care Team (Latest Contact Info) Description 03/13/2024 1:00 PM CDT Office Visit Department of Ophthalmology in [place], [place] [address] [place] [phone] Prakash Graham M.D. [address] [place] [phone] Panuveitis Right (Primary Dx); Necrosis Retinal Acute Right Social History Tobacco Use Types Packs/Day Years Used Date Smoking Tobacco: Light Smoker Cigarettes 0.5 44.3 Started: 02/26/1980 Smokeless Tobacco: Never Comments:On again off again Alcohol Use Standard Drinks/Week Comments Yes 0 (1 standard drink = 0.6 oz pur e alcohol) [facility] Utilities Answer Date Recorded In the past [...] often do you attend jehovah's witness or episcopal serv ices? Never 06/27/2020 Do [...] medical care, and heating? Somewhat hard 06/27/2020 [facility] [place] of Occupat ional Health - Occupational Stress [...] 06/01/2024 10:00 AM CDT [facility] [address] [place] [phone] Prakash Graham M.D. [address] [place] [phone] 06/01/2024 2:50 PM CDT - 06/01/2024 5:47 PM CDT Surgery [facility] [address] [place] [phone] Prakash Graham M.D. [address] [place] [phone] VITRECTOMY, PARS PLANA 25 GAUGE, MEMBRANE PEEL, SILICONE OIL, SCLERAL BUCKLE, ALL ASSOCIATED PROCEDURES RIGHT EYE. 06/02/2024 8:00 AM CDT Office Visit Department of Ophthalmology in [place], [place] [address] [place] [phone] Prakash Grhaam M.D. [address] [place] [phone] 06/09/2024 9:30 AM CDT Ancillary Procedure Department of Ophthalmology in [place], [place] [address] [place] [phone] Prakash Graham M.D. [address] [place] [phone] 06/09/2024 10:00 AM CDT Office Visit Department of Ophthalmology in [place], [place] [address] [place] [phone] Prakash Graham M.D. [address] [place] [phone] 07/16/2024 8:45 AM CDT Ancillary Procedure Department of Ophthalmology in [place], [place] [address] [place] [phone] Prakash Graham M.D. [address] [place] [phone] 07/16/2024 9:15 AM CDT Ancillary Procedure Department of Ophthalmology in [address] [phone] Prakash Graham M.D. [address] [place] [phone] 07/16/2024 9:30 AM CDT Office Visit Department of Ophthalmology in [place], [place] [address] [place] [phone] Kenya Garza M.D. [address] [place] [phone] 07/16/2024 12:45 PM CDT Office Visit Department of Ophthalmology in [place], [place] [address] [place] [address] [place] [phone] Prakash Graham M.D. [address] [place] [address] Scheduled Orders Name Type Priority Associated Diagnoses [...] Right documented in this encounter Care Teams Division Order Analyst Relationship Specialty Start Date End Date Elsewhere, Pcp PCP - General Internal Medicine 05/29/19 documented as of this encounter
--- OUTSIDE RECORDS SUMMARY | 2024-05-28 14:48 | XMS_ITS | Encounter Summary ---
Author Organization [facility] Address [address] [place] [address] Care Team Providers Care Shrimp Cleaner Name Role Phone Elsewhere, Pcp Primary Care Provider Unavailabl e Encounter Details Date Type Department Care Team (Late st Contact Info) Description 03/14/2024 Orders Only Department of Ophthalmology in [place], [place] [address] [place] [phone] Raffi Boyd M.D. [address] [place] [address] Social History Tobacco Use Types Packs/Day Years Used Date Smoking Tobacco: Light Smoker Cigarettes 0.5 44.3 Started: 02/26/1980 Smokeless Tobacco: Never Comments:On again off again Alcohol Use Standard Drinks/Week Comments Yes 0 (1 standard drink = 0.6 oz pur e alcohol) [facility] Utilities Answer Date Recorded In the past 12 months has [employer], gas, oil, or water [employer] threatened to shut off services in your home? No 11/05/2023 Social Connection and Isolation Panel [NHANES] A nswer Date Recorded In a typical week, how many times do you talk on the phone with family, friends, or neighbors? Once a week 06/27/2020 How often do you get together with friends or re latives? Never 06/27/2020 How often do you attend denominational or gnosticism serv ices? Never 06/27/2020 Do [...] your living situation today? I have a [facility] place to live 11/05/2023 [...] 06/01/2024 10:00 AM CDT Hospital Encounter [facility] [place] [address] [place] [phone] Prakash Graham M.D. [address] [place] [phone] 06/01/2024 2:50 PM CDT - 06/01/2024 5:47 PM CDT Surgery [facility] [address] [place] [phone] Prakash Graham M.D. [address] [place] [phone] VITRECTOMY, PARS PLANA 25 GAUGE, MEMBRANE PEEL, SILICONE OIL, SCLERAL BUCKLE, ALL ASSOCIATED PROCEDURES RIGHT EYE. 06/02/2024 8:00 AM CDT Office Visit Department of Ophthalmology in [place], [place] [address] [place] [phone] Prakash Graham M.D. [address] [place] [phone] 06/09/2024 9:30 AM CDT Ancillary Procedure Department of Ophthalmology in [place], [place] [address] [place] [phone] Prakash Graham M.D. [address] [place] [phone] 06/09/2024 10:00 AM CDT Office Visit Department of Ophthalmology in [place], [place] [address] [place] [phone] Prakash Graham M.D. [address] [place] [phone] 07/16/2024 8:45 AM CDT Ancillary Procedure Department of Ophthalmology in [place], [place] [address] [place] [phone] Prakash Graham M.D. [address] [place] [phone] 07/16/2024 9:15 AM CDT Ancillary Procedure Department of Ophthalmology in [place], [place] [address] [place] [phone] Prakash Graham M.D. [address] [place] [phone] 07/16/2024 9:30 AM CDT Office Visit Department of Ophthalmology in [place], [place] [address] [place] [phone] Kenya Garza M.D. [address] [place] [phone] 07/16/2024 12:45 PM CDT Office Visit Department of Ophthalmology in [place], [place] [address] [place] [phone] Prakash Graham M.D. [address] [place] [phone] Scheduled Procedures Name Priority Associated Diagnoses Date/Ti me VITRECTOMY - PARS PLANA 25 GAUGE Panuveitis Right Necrosis Retinal Acute Right 06/01/2024 2:50 PM CDT SCLERAL BUCKLING Panuveitis Right Necrosis Retinal Acute Right 06/01/2024 2:50 PM CDT documented as of this encounter Visit Diagnoses Not on filedocumented in this encounter Care Teams Shrimp Cleaner Relationship Specialty Start Date End Date Elsewhere, Pcp PCP - General Internal Medicine 05/29/19 documented as of this encounter
--- OUTSIDE RECORDS SUMMARY | 2024-05-28 14:48 | XMS_ITS | Encounter Summary ---
Author Organization [facility] Address [address] [place] [address] Care Team Providers Care Single Fold Machine Operator Name Role Phone Elsewhere, Pcp Primary Care Provider Unavailabl e Encounter Details Date Type Department Care Team (Late st Contact Info) Description 03/13/2024 Orders Only Department of Ophthalmology in [place], [place] [address] [place] [address] Jean Claude Newsome, C.O.A. Necrosis Retinal Acute [...] Recorded In the past 12 months has [employer], gas, oil, or water company threatened [...] How often do you attend confucianism or cheondoism serv ices? Never 06/27/2020 Do [...] heating? Somewhat hard 06/27/2020 [facility] [place] of Occupat ional Health - Occupational Stress [...] 06/01/2024 10:00 AM CDT Hospital Encounter [facility] OR [facility] [address] [place] [phone] Prakash Graham M.D. [address] [place] [phone] 06/01/2024 2:50 PM CDT - 06/01/2024 5:[address] [facility] [address] [place] [phone] Prakash Graham M.D. [address] [place] [phone] VITRECTOMY, PARS PLANA 25 GAUGE, MEMBRANE PEEL, SILICONE OIL, SCLERAL BUCKLE, ALL ASSOCIATED PROCEDURES RIGHT EYE. 06/02/2024 8:00 AM CDT Office Visit Department of Ophthalmology in [place], [place] [address] [place] [phone] Prakash Graham M.D. [address] [place] [phone] 06/09/2024 9:30 AM CDT Ancillary Procedure Department of Ophthalmology in [place], [place] [address] [place] [phone] Prakash Graham M.D. [address] [place] [phone] 06/09/2024 10:00 AM CDT Office Visit Department of Ophthalmology in [place], [place] [address] [place] [phone] Prakash Graham M.D. [address] [place] [phone] 07/16/2024 8:45 AM CDT Ancillary Procedure Department of Ophthalmology in [place], [place] [address] [place] [phone] Prakash Graham M.D. [address] [place] [phone] 07/16/2024 9:15 AM CDT Ancillary Procedure Department of Ophthalmology in [place], [place] [address] [place] [phone] Prakash Graham M.D. [address] [place] [phone] 07/16/2024 9:30 AM CDT Office Visit Department of Ophthalmology in [place], [place] [address] [place] [phone] Kenya Garza M.D. [address] [place] [phone] 07/16/2024 12:45 PM CDT Office Visit Department of Ophthalmology in [place], [place] [address] [place] [phone] Prakash Graham M.D. [address] [place] [phone] Scheduled Procedures Name Priority Associated Diagnoses Date/Ti wi VITRECTOMY - PARS PLANA 25 GAUGE Panuveitis Right Necrosis Retinal Acute Right 06/01/2024 2:50 PM CDT SCLERAL BUCKLING Panuveitis Right Necrosis Retinal Acute Right 06/01/2024 2:50 PM CDT documented as of this encounter Visit Diagnoses Diagnosis Necrosis Retinal Acute Right- Primary Panuveitis Right Necrosis Retinal Acute Right documented in this encounter Care Teams Single Fold Machine Operator Relationship Specialty Start Date End Date Elsewhere, Pcp PCP - General Internal Medicine 05/29/19 documented as of this encounter
--- OUTSIDE RECORDS SUMMARY | 2024-05-28 14:48 | XMS_ITS | Encounter Summary ---
Author Organization [facility] Address [address] [place] [address] Care Team Providers Care Voice Instructor Name Role Phone Elsewhere, Pcp Primary [...] 0.6 oz pur e alcohol) [facility] Utilities Answer Date Recorded In [...] How often do you attend mandaen or moravian serv ices? Never 06/27/2020 Do [...] medical care, and heating? Somewhat hard 06/27/2020 [facility] of Occupat ional [facility] - Occupational Stress Questionnaire Answer Date Recorded [...] 10:00 AM CDT Hospital En[facility] OR [facility] [address] [place] [phone] Prakash Graham M.D. [address] [place] [phone] 06/01/2024 2:50 PM CDT - 06/01/2024 5:47 PM [address] [facility] [place] [address] [place] [phone] Prakash Graham M.D. [address] [place] [phone] VITRECTOMY, PARS PLANA 25 GAUGE, MEMBRANE PEEL, SILICONE OIL, SCLERAL BUCKLE, ALL ASSOCIATED PROCEDURES RIGHT EYE. 06/02/2024 8:00 AM CDT Office Visit Department of Ophthalmology in [address] [phone] Prakash Graham M.D. [address] [place] [phone] 06/09/2024 9:30 AM CDT Ancillary Procedure Department of Ophthalmology in [place], [place] [address] [place] [phone] Prakash Graham M.D. [address] [place] [phone] 06/09/2024 10:00 AM CDT Office Visit Department of Ophthalmology in [place], [place] [address] [place] [phone] Prakash Graham M.D. [address] [place] [phone] 07/16/2024 8:45 AM CDT Ancillary Procedure Department of Ophthalmology in [place], [place] [address] [place] [phone] Prakash Graham M.D. [address] [place] [phone] 07/16/2024 9:15 AM CDT Ancillary Procedure Department of Ophthalmology in [place], [place] [address] [place] [phone] Prakash Graham M.D. [address] [place] [phone] 07/16/2024 9:30 AM CDT Office Visit Department of Ophthalmology in [place], [place] [address] [place] [phone] Kenya Garza M.D. [address] [place] [phone] 07/16/2024 12:45 PM CDT Office Visit Department of Ophthalmology in [place], [place] [address] [place] [phone] Prakash Graham M.D. [address] [place] [phone] Scheduled Procedures Name Priority Associated Diagnoses Date/Ti [...] on filedocumented in this encounter Care Teams Voice Instructor Relationship Specialty Start Date End Date Elsewhere, Pcp PCP - General Internal Medicine 05/29/19 documented as of this encounter
--- OUTSIDE RECORDS SUMMARY | 2024-05-28 14:48 | XMS_ITS | Encounter Summary ---
Author Organization [facility] Address [address] [place] [address] Care Team Providers Care Tank Hoop Bender Name Role Phone Elsewhere, Pcp Primary Care [...] In the past 12 months has th [employer], gas, oil, or water company threatened [...] How often do you attend mosque or religion serv ices? Never 06/27/2020 Do [...] medical care, and heating? Somewhat hard 06/27/2020 [facility] - Occupational Stress Questionnaire Answer [...] 06/01/2024 10:00 AM CDT Hospital Encounter [facility] [place] [address] [place] [phone] Prakash Graham M.D. [address] [place] [phone] 06/01/2024 2:50 PM CDT - 06/01/2024 5:47 PM CDT Surgery [facility] OR [facility] [address] [place] [phone] Prakash Graham M.D. [address] [place] [phone] VITRECTOMY, PARS PLANA 25 GAUGE, MEMBRANE PEEL, SILICONE OIL, SCLERAL BUCKLE, ALL ASSOCIATED PROCEDURES RIGHT EYE. 06/02/2024 8:00 AM CDT Office Visit Department of Ophthalmology in [address] [phone] Prakash Graham M.D. [address] [place] [phone] 06/09/2024 9:30 AM CDT Ancillary Procedure Department of Ophthalmology in [address] [phone] Prakash Graham M.D. [address] [place] [phone] 06/09/2024 10:00 AM CDT Office Visit Department of Ophthalmology in [place], [place] [address] [place] [phone] Prakash Graham M.D. [address] [place] [phone] 07/16/2024 8:45 AM CDT Ancillary Procedure Department of Ophthalmology in [place], [place] [address] [place] [phone] Prakash Graham M.D. [address] [place] [phone] 07/16/2024 9:15 AM CDT Ancillary Procedure Department of Ophthalmology in [place], [place] [address] [place] [phone] Prakash Graham M.D. [address] [place] [phone] 07/16/2024 9:30 AM CDT Office Visit Department of Ophthalmology in [place], [place] [address] [place] [phone] Kenya Garza M.D. [address] [place] [phone] 07/16/2024 12:45 PM CDT Office Visit Department of Ophthalmology in [place], [place] [address] [place] [phone] Prakash Graham M.D. [address] [place] [phone] Scheduled Procedures Name Priority Associated Diagnoses Date/Ti me VITRECTOMY - PARS PLANA 25 GAUGE Panuveitis Right Necrosis Retinal Acute Right 06/01/2024 2:50 PM CDT SCLERAL BUCKLING Panuveitis Right Necrosis Retinal Acute Right 06/01/2024 2:50 PM CDT documented as of this encounter Visit Diagnoses Not on filedocumented in this encounter Care Teams Tank Hoop Bender Relationship Specialty Start Date End Date Elsewhere, Pcp PCP - General Internal Medicine 05/29/19 documented as of this encounter
--- OUTSIDE RECORDS SUMMARY | 2024-05-28 14:48 | XMS_ITS | Encounter Summary ---
Author Organization [facility] Address [address] [place] [address] Care Team Providers Care Operations Team Leader Name Role Phone Elsewhere, Pcp Primary Care [...] = 0.6 oz pur e alcohol) [facility] Utilities Answer Date Recorded In the [...] How often do you attend moravian or synagogue serv ices? Never 06/27/2020 Do [...] [facility] of Occupat ional [facility] - Occupational Stress Questionnaire Answer [...] 10:00 AM CDT Hospital Encounter [facility] OR [facility] [place] [phone] Prakash Graham M.D. [address] [place] [phone] 06/01/2024 2:50 PM CDT - 06/01/2024 5:47 PM CDT Surgery [facility] OR [address] [place] [phone] Prakash Graham M.D. [address] [place] [phone] VITRECTOMY, PARS PLANA 25 GAUGE, MEMBRANE PEEL, SILICONE OIL, SCLERAL BUCKLE, ALL ASSOCIATED PROCEDURES RIGHT EYE. 06/02/2024 8:00 AM CDT Office Visit Department of Ophthalmology in [address] [phone] Prakash Graham M.D. [address] [place] [phone] 06/09/2024 9:30 AM CDT Ancillary Procedure Department of Ophthalmology in [place], [place] [address] [place] [phone] Prakash Graham M.D. [address] [place] [phone] 06/09/2024 10:00 AM CDT Office Visit Department of Ophthalmology in [place], [place] [address] [place] [phone] Prakash Graham M.D. [address] [place] [phone] 07/16/2024 8:45 AM CDT Ancillary Procedure Department of Ophthalmology in [place], [place] [address] [place] [phone] Prakash Graham M.D. [address] [place] [phone] 07/16/2024 9:15 AM CDT Ancillary Procedure Department of Ophthalmology in [place], [place] [address] [place] [phone] Prakash Graham M.D. [address] [place] [phone] 07/16/2024 9:30 AM CDT Office Visit Department of Ophthalmology in [place], [place] [address] [place] [phone] Kenya Garza M.D. [address] [place] [phone] 07/16/2024 12:45 PM CDT Office Visit Department of Ophthalmology in [place], [place] [address] [place] [phone] Prakash Graham M.D. [address] [place] [phone] Scheduled Procedures Name Priority Associated Diagnoses Date/Ti [...] in this encounter Results * Eyes US-Eye I-Negu-Flvuaieopkjwm Image Exam (03/13/2024 12:10 AM CDT) Narrative [...] on filedocumented in this encounter Care Teams Operations Team Leader Relationship Specialty Start Date End Date Elsewhere, Pcp PCP - General Internal Medicine 05/29/19 documented as of this encounter
--- OUTSIDE RECORDS SUMMARY | 2024-05-28 14:48 | XMS_ITS | Encounter Summary ---
Author Organization [facility] Address [address] [place] [address] Care Team Providers Care Command Center Officer Name Role Phone Elsewhere, Pcp Primary Care Provider Unavailabl e Reason for Visit * Reason Comments Med Refill Encounter Details Date Type Department Care Team (Late st Contact Info) Description 04/10/2024 Refill Department of Ophthalmology in [place], [place] [address] [place] [phone] Kenya Garza M.D. [address] [place] [phone] Med Refill Social History Tobacco Use Types Packs/Day Years Used Date Smoking Tobacco: Light Smoker Cigarettes 0.5 44.3 Started: 02/26/1980 Smokeless Tobacco: Never Comments:On again off again Alcohol Use Standard Drinks/Week Comments Yes 0 (1 standard drink = 0.6 oz pur e alcohol) [facility] Utilities Answer Date Recorded In the past 12 months has [employer], gas, oil, or water inContact threatened to shut off services in your home? No 11/05/2023 Social Connection and Isolation Panel [NHANES] A nswer Date Recorded In a typical week, how many times do you talk on the phone with family, friends, or neighbors? Once a week 06/27/2020 How often do you get together with friends or re latives? Never 06/27/2020 How often do you attend scientologist or scientology serv ices? Never 06/27/2020 Do [...] heating? Somewhat hard 06/27/2020 [facility] [place] of Occupat ional Health - Occupational [...] 10:00 AM CDT Hospital Encounter [facility] [place] [address] [place] [phone] Prakash Graham M.D. [address] [place] [phone] 06/01/2024 2:50 PM CDT - 06/01/2024 5:47 PM CDT Surgery [facility] OR [facility] [place] [phone] Prakash Graham M.D. [address] [place] [phone] VITRECTOMY, PARS PLANA 25 GAUGE, MEMBRANE PEEL, SILICONE OIL, SCLERAL BUCKLE, ALL ASSOCIATED PROCEDURES RIGHT EYE. 06/02/2024 8:00 AM CDT Office Visit Department of Ophthalmology in [place], [place] [address] [place] [phone] Prakash Graham M.D. [address] [place] [phone] 06/09/2024 9:30 AM CDT Ancillary Procedure Department of Ophthalmology in [place], [place] [address] [place] [phone] Prakash Graham M.D. [address] [place] [phone] 06/09/2024 10:00 AM CDT Office Visit Department of Ophthalmology in [place], [place] [address] [place] [phone] Prakash Graham M.D. [address] [place] [phone] 07/16/2024 8:45 AM CDT Ancillary Procedure Department of Ophthalmology in [place], [place] [address] [place] [phone] Prakash Graham M.D. [address] [place] [phone] 07/16/2024 9:15 AM CDT Ancillary Procedure Department of Ophthalmology in [place], [place] [address] [place] [phone] Prakash Graham M.D. [address] [place] [phone] 07/16/2024 9:30 AM CDT Office Visit Department of Ophthalmology in [place], [place] [address] [place] [phone] Kenya Garza M.D. [address] [place] [phone] 07/16/2024 12:45 PM CDT Office Visit Department of Ophthalmology in [place], [place] [address] [place] [phone] Prakash Graham M.D. [address] [place] [phone] Scheduled Procedures Name Priority Associated Diagnoses Date/Ti me VITRECTOMY - PARS PLANA 25 GAUGE Panuveitis Right Necrosis Retinal Acute Right 06/01/2024 2:50 PM CDT SCLERAL BUCKLING Panuveitis Right Necrosis Retinal Acute Right 06/01/2024 2:50 PM CDT documented as of this encounter Visit Diagnoses Not on filedocumented in this encounter Care Teams Command Center Officer Relationship Specialty Start Date End Date Elsewhere, Pcp PCP - General Internal Medicine 05/29/19 documented as of this encounter
--- OUTSIDE RECORDS SUMMARY | 2024-05-28 14:49 | XMS_ITS | Encounter Summary ---
Author Organization [facility] Address [address] [place] [address] Care Team Providers Care Child Welfare Worker Name Role Phone Elsewhere, Pcp Primary Care Provider Unavailabl e Encounter Details Date Type Department Care Team (Latest Contact Info) Description 02/20/2024 9:50 AM CDT Ancillary Procedure Department of Ophthalmology in [place], [place] [address] [place] [address] Kenya Garza M.D. [address] [place] [phone] Panuveitis Right; Necrosis Retinal Acute Right Social History Tobacco Use Types Packs/Day Years Used Date Smoking Tobacco: Light Smoker Cigarettes 0.5 44.3 Started: 02/26/1980 Smokeless Tobacco: Never Comments:On again off again Alcohol Use Standard Drinks/Week Comments Yes 0 (1 standard drink = 0.6 oz pur e alcohol) [facility] Utilities Answer Date Recorded In the past 12 months has [employer], gas, oil, or water [employer] threatened to shut off services in your home? No 11/05/2023 Social Connection and Isolation Panel [NHANES] A nswer Date Recorded In a typical week, how many times do you talk on the phone with family, friends, or neighbors? Once a week 06/27/2020 How often do you get together with friends or re latives? Never 06/27/2020 How often do you attend sabianist or taoism serv ices? Never 06/27/2020 Do [...] heating? Somewhat hard 06/27/2020 [facility] [place] of Occupat ional Health - Occupational Stress [...] Encounter [facility] OR [facility] [place] [phone] Prakash Graham M.D. [address] [place] [phone] 06/01/2024 2:50 PM CDT - 06/01/2024 5:47 PM CDT Surgery [facility] OR [facility] [place] [phone] Prakash Graham M.D. [address] [place] [phone] VITRECTOMY, PARS PLANA 25 GAUGE, MEMBRANE PEEL, SILICONE OIL, SCLERAL BUCKLE, ALL ASSOCIATED PROCEDURES RIGHT EYE. 06/02/2024 8:00 AM CDT Office Visit Department of Ophthalmology in [place], [place] [address] [place] [phone] Prakash Graham M.D. [address] [place] [phone] 06/09/2024 9:30 AM CDT Ancillary Procedure Department of Ophthalmology in [place], [place] [address] [place] [phone] Prakash Graham M.D. [address] [place] [phone] 06/09/2024 10:00 AM CDT Office Visit Department of Ophthalmology in [place], [place] [address] [place] [phone] Prakash Graham M.D. [address] [place] [phone] 07/16/2024 8:45 AM CDT Ancillary Procedure Department of Ophthalmology in [place], [place] [address] [place] [phone] Prakash Graham M.D. [address] [place] [phone] 07/16/2024 9:15 AM CDT Ancillary Procedure Department of Ophthalmology in [place], [place] [address] [place] [phone] Prakash Graham M.D. [address] [place] [phone] 07/16/2024 9:30 AM CDT Office Visit Department of Ophthalmology in [address] [phone] Kenya Garza M.D. [address] [place] [phone] 07/16/2024 12:45 PM CDT Office Visit Department of Ophthalmology in [address] [phone] Prakash Graham M.D. [address] [place] [phone] Scheduled Procedures Name Priority Associated Diagnoses Date/Ti [...] Right documented in this encounter Care Teams Child Welfare Worker Relationship Specialty Start Date End Date Elsewhere, Pcp PCP - General Internal Medicine 05/29/19 documented as of this encounter
--- OUTSIDE RECORDS SUMMARY | 2024-05-28 14:49 | XMS_ITS | Encounter Summary ---
Author Organization [facility] Address [address] [place] [address] Care Team Providers Care Ditcher Name Role Phone Elsewhere, Pcp Primary Care Provider Unavailabl e Reason for Referral * Outpatient (Routine) - Closed Specialty Diagnoses / Procedures Referred By Apolinar lopez Referred To Contact Ophthalmology Diagnoses Panuveitis Right Necrosis Retinal Acute Right Kenya Gazra M.D. [address] [place] [address] [facility] Referral ID Status Reason Start Date Expiration Date Visits Re quested Visits Authorized [id number] Closed 02/20/2024 08/21/2025 1 1 Reason for Visit * Outpatient (Routine) - Closed Specialty Diagnoses / Procedures Referred By Apolinar lopez Referred To Contact Ophthalmology Diagnoses Panuveitis Right Necrosis Retinal Acute Right Kenya Garza M.D. [address] [place] [address] [facility] Referral ID Status Reason Start Date Expiration Date Visits Re quested Visits Authorized [id number] Closed 01/23/2024 07/24/2025 1 1 Encounter Details Date Type Department Care Team (Latest Contact Info) Description 02/20/2024 11:15 AM CDT Office Visit Department of Ophthalmology in [place], [place] [address] [place] [phone] Kenya Garza M.D. [address] [place] [address] [phone] Panuveitis Right (Primary Dx); Necrosis Retinal Acute Right Social History Tobacco Use Types Packs/Day Years Used Date Smoking Tobacco: Light Smoker Cigarettes 0.5 44.3 Started: 02/26/1980 Smokeless Tobacco: Never Comments:On again off again Alcohol Use Standard Drinks/Week Comments Yes 0 (1 standard drink = 0.6 oz pur e alcohol) [facility] Utilities Answer Date Recorded In the past 12 months has e [email or web address], gas, oil, or water [email or web address] threatened to shut off services in your home? No 11/05/2023 Social Connection and Isolation Panel [NHANES] A nswer Date Recorded In a typical week, how many times do you talk on the phone with family, friends, or neighbors? Once a week 06/27/2020 How often do you get together with friends or re latives? Never 06/27/2020 How often do you attend zoroastrianism or denominational serv ices? Never 06/27/2020 Do [...] and heating? Somewhat hard 06/27/2020 [facility] of Occupat ional Health - Occupational Stress [...] your living situation today? I have a [facility] place to live 11/05/2023 Education Answer [...] with tobramycin drops without improvement. She saw outreach librarian Dr. Daisy Ivy on 10/23/23. 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 In August 2023, she was sent from an infusion center to [place] emergency department where shewas found to have [...] three times in the past three months: [place] (09/02/23 for hypercalcemiaand acute kidney injury - had CT chest/abdomen/pelvis to assess for malignancy), [place] in [facility] again. Each time [...] plans to monitor. (Her oncologist is at [facility].) MEDICATIONS Prednisolone every hour while awake [...] shallow retinal detachment. No T sign noted. [facility] Macula OCT of the right [...] membranes. Possible posterior thickening. No T sign. [facility] HSV 2 PCR from anterior [...] 10:00 AM CDT Hospital Encounter [facility] [address] [place] [phone] Prakash Graham M.D. [address] [place] [phone] 06/01/2024 2:50 PM CDT - 06/01/2024 5:47 PM CDT Surgery [facility] [address] [place] [phone] Prakash Graham M.D. [address] [place] [phone] VITRECTOMY, PARS PLANA 25 GAUGE, MEMBRANE PEEL, SILICONE OIL, SCLERAL BUCKLE, ALL ASSOCIATED PROCEDURES RIGHT EYE. 06/02/2024 8:00 AM CDT Office Visit Department of Ophthalmology in [place], [place] [address] [place] [phone] Prakash Graham M.D. [address] [place] [phone] 06/09/2024 9:30 AM CDT Ancillary Procedure Department of Ophthalmology in [place], [place] [address] [place] [phone] Prakash Graham M.D. [address] [place] [phone] 06/09/2024 10:00 AM CDT Office Visit Department of Ophthalmology in [address] [phone] Prakash Graham M.D. [address] [place] [phone] 07/16/2024 8:45 AM CDT Ancillary Procedure Department of Ophthalmology in [place], [place] [address] [place] [phone] Prakash Graham M.D. [address] [place] [phone] 07/16/2024 9:15 AM CDT Ancillary Procedure Department of Ophthalmology in [place], [place] [address] [place] [phone] Prakash Graham M.D. [address] [place] [phone] 07/16/2024 9:30 AM CDT Office Visit Department of Ophthalmology in [place], [place] [address] [place] [phone] Kenya Garza M.D. [address] [place] [phone] 07/16/2024 12:45 PM CDT Office Visit Department of Ophthalmology in [place], [place] [address] [place] [phone] Prakash Graham M.D. [address] [place] [phone] Scheduled Procedures Name Priority Associated Diagnoses Date/Ti [...] Garza M.D. OPH ULTRASOUND Performing Organization Address City/[facility] [[email or web address]] Co de Phone Number OPHTHALMOLGY NON-IMAGING ORDERS [...] ciliochoroidal effusion. ZK Kenya Garza M.D. 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
--- OUTSIDE RECORDS SUMMARY | 2024-05-28 14:49 | XMS_ITS | Encounter Summary ---
Author Organization [facility] Address [address] [place] [address] Care Team Providers Care Shovel Mechanic Name Role Phone Elsewhere, Pcp Primary Care Provider Unavailabl e Reason for Referral * Outpatient (Routine) - Closed Specialty Diagnoses / Procedures Referred By Apolinar lopez Referred To Contact Ophthalmology Diagnoses Necrosis Retinal Acute Right Kenya Garza M.D. [address] [place] [phone] [facility] Referral ID Status Reason Start Date Expiration Date Visits Re quested Visits Authorized [id number] Closed 03/13/2024 09/12/2025 1 1 Reason for Visit * Outpatient (Routine) - Closed Specialty Diagnoses / Procedures Referred By Apolinar lopez Referred To Contact Ophthalmology Diagnoses Panuveitis Right Necrosis Retinal Acute Right Kenya Garza M.D. [address] [place] [address] [facility] Referral ID Status Reason Start Date Expiration Date Visits Re quested Visits Authorized [id number] Closed 02/20/2024 08/21/2025 1 1 Encounter Details Date Type Department Care Team (Latest Contact Info) Description 03/13/2024 11:30 AM CDT Office Visit Department of Ophthalmology in [place], [place] [address] [place] [phone] Kenya Garza M.D. [address] [place] [phone] Necrosis Retinal Acute Right (Primary Dx); Panuveitis [...] has e electric, gas, oil, or water [employer] threatened to shut off services in your home? No 11/05/2023 Social Connection and Isolation Panel [NHANES] A nswer Date Recorded In a typical week, how many times do you talk on the phone with family, friends, or neighbors? Once a week 06/27/2020 How often do you get together with friends or re latives? Never 06/27/2020 How often do you attend amish or confucianist serv ices? Never 06/27/2020 Do [...] medical care, and heating? Somewhat hard 06/27/2020 [facility] of Occupat ional Health - Occupational Stress [...] your living situation today? I have a [facility] place to live 11/05/2023 [...] with tobramycin drops without improvement. She saw family sociologist Dr. Daisy Ivy on 10/23/23. 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 In August 2023, she was sent from an infusion center to [place] emergency department where shewas found to have [...] three times in the past three months: [place] (09/02/23 for hypercalcemiaand acute kidney injury - had CT chest/abdomen/pelvis to assess for malignancy), [place] in [facility] again. Each time she saw [...] plans to monitor. (Her oncologist is at [facility].) MEDICATIONS Prednisolone every hour while awake [...] shallow retinal detachment. No T sign noted. [facility] Macula OCT of the right eye [...] membranes. Possible posterior thickening. No T sign. 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 [facility] PLAN: It has been 21 days [...] UBM plus macula OCT. 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 documented in this encounter Plan of Treatment Upcoming Encounters Date Type Department Care Team (Latest Contact Info) Description 06/01/2024 10:00 AM CDT Hospital Encounter [facility] [place] [phone] Prakash Graham M.D. [address] [place] [phone] 06/01/2024 2:50 PM CDT - 06/01/2024 5:47 PM CDT Surgery [facility] [address] [place] [phone] Prakash Graham M.D. [address] [place] [phone] VITRECTOMY, PARS PLANA 25 GAUGE, MEMBRANE PEEL, SILICONE OIL, SCLERAL BUCKLE, ALL ASSOCIATED PROCEDURES RIGHT EYE. 06/02/2024 8:00 AM CDT Office Visit Department of Ophthalmology in [place], [place] [address] [place] [phone] Prakash Graham M.D. [address] [place] [phone] 06/09/2024 9:30 AM CDT Ancillary Procedure Department of Ophthalmology in [place], [place] [address] [place] [phone] Prakash Graham M.D. [address] [place] [phone] 06/09/2024 10:00 AM CDT Office Visit Department of Ophthalmology in [address] [phone] Prakash Graham M.D. [address] [place] [phone] 07/16/2024 8:45 AM CDT Ancillary Procedure Department of Ophthalmology in [place], [place] [address] [place] [phone] Prakash Graham M.D. [address] [place] [phone] 07/16/2024 9:15 AM CDT Ancillary Procedure Department of Ophthalmology in [place], [place] [address] [place] [phone] Prakash Graham M.D. [address] [place] [phone] 07/16/2024 9:30 AM CDT Office Visit Department of Ophthalmology in [place], [place] [address] [place] [phone] Kenya Garza M.D. [address] [place] [phone] 07/16/2024 12:45 PM CDT Office Visit Department of Ophthalmology in [place], [place] [address] [place] [phone] Prakash Graham M.D. [address] [place] [phone] Scheduled Procedures Name Priority Associated Diagnoses Date/Ti [...] Right documented in this encounter Care Teams Shovel Mechanic Relationship Specialty Start Date End Date Elsewhere, Pcp PCP - General Internal Medicine 05/29/19 documented as of this encounter
--- OUTSIDE RECORDS SUMMARY | 2024-05-28 14:49 | XMS_ITS | Encounter Summary ---
Author Organization [facility] Address [address] [place] [phone] Care Team Providers Care Enrober Tender Name Role Phone Elsewhere, Pcp Primary Care Provider Unavailabl e Reason for Referral * MRI/CAT/PET Scan (Routine) - Closed Specialty Diagnoses / Procedures Referred By Contac t Referred To Contact Radiology Diagnoses Posterior Reversible Encephalopathy Syndrome Procedures MR Brain without and with IV Contrast Piter Baez M.D. [address] [place] [phone] [facility] Referral ID Status Reason Start Date Expiration Date Visits Re quested Visits Authorized [id number] Closed 02/03/2024 10/27/2024 1 1 Reason for Visit * MRI/CAT/PET Scan (Routine) - Closed Specialty Diagnoses / Procedures Referred By Contac t Referred To Contact Radiology Diagnoses Posterior Reversible Encephalopathy Syndrome Procedures MR Brain without and with IV Contrast Piter Baez M.D. [address] [place] [phone] [facility] Referral ID Status Reason Start Date Expiration Date Visits Re quested Visits Authorized [id number] Closed 02/03/2024 10/27/2024 1 1 Encounter Details Date Type Department Care Team (Latest Contact Info) Description 02/20/2024 3:05 PM CDT - 02/20/2024 11:59 PM CDT Hospital Encounter Department of Radiology, [facility] in [place], [place] [address] [place] [phone] Piter Baez M.D. [address] [place] [phone] Posterior Reversible Encephalopathy Syndrome Discharge Disposition: Home or Self Care Social History Tobacco Use Types Packs/Day Years Used Date Smoking Tobacco: Light Smoker Cigarettes 0.5 44.3 Started: 02/26/1980 Smokeless Tobacco: Never Comments:On again off again Alcohol Use Standard Drinks/Week Comments Yes 0 (1 standard drink = 0.6 oz pur e alcohol) [facility] Utilities Answer Date Recorded In the [...] How often do you attend anabaptist or advent serv ices? Never 06/27/2020 Do [...] medical care, and heating? Somewhat hard 06/27/2020 [facility] of Occupat ional Health - Occupational Stress [...] Encounter [facility] [address] [place] [phone] Prakash Graham M.D. [address] [place] [phone] 06/01/2024 2:50 PM CDT - 06/01/2024 5:47 PM CDT Surgery [facility] [place] [address] [place] [phone] Prakash Graham M.D. [address] [place] [phone] VITRECTOMY, PARS PLANA 25 GAUGE, MEMBRANE PEEL, SILICONE OIL, SCLERAL BUCKLE, ALL ASSOCIATED PROCEDURES RIGHT EYE. 06/02/2024 8:00 AM CDT Office Visit Department of Ophthalmology in [place], [place] [address] [place] [phone] Prakash Graham M.D. [address] [place] [phone] 06/09/2024 9:30 AM CDT Ancillary Procedure Department of Ophthalmology in [address] [phone] Prakash Graham M.D. [address] [place] [phone] 06/09/2024 10:00 AM CDT Office Visit Department of Ophthalmology in [address] [phone] Prakash Graham M.D. [address] [place] [phone] 07/16/2024 8:45 AM CDT Ancillary Procedure Department of Ophthalmology in [place], [place] [address] [place] [phone] Prakash Graham M.D. [address] [place] [phone] 07/16/2024 9:15 AM CDT Ancillary Procedure Department of Ophthalmology in [address] [phone] Prakash Graham M.D. [address] [place] [phone] 07/16/2024 9:30 AM CDT Office Visit Department of Ophthalmology in [place], [place] [address] [place] [address] Kenya Garza M.D. [address] [place] [phone] 07/16/2024 12:45 PM CDT Office Visit Department of Ophthalmology in [place], [place] [address] [place] [address] Prakash Graham M.D. [address] [place] [phone] Scheduled Procedures Name Priority Associated Diagnoses Date/Ti [...] Modality Head, Brain, Neuroradiology [facility], Neuroradiology [facility], Neuroradiology [facility] N/A Magnetic Resonance Impressions 02/21/2024 [...] mL documented in this encounter Care Teams Enrober Tender Relationship Specialty Start Date End Date Elsewhere, Pcp PCP - General Internal Medicine 05/29/19 documented as of this encounter
--- OUTSIDE RECORDS SUMMARY | 2024-05-28 14:49 | XMS_ITS | Encounter Summary ---
Author Organization [facility] Address [address] [place] [address] Care Team Providers Care Bankruptcy Processor Name Role Phone Elsewhere, Pcp Primary Care Provider Unavailabl e Encounter Details Date Type Department Care Team (Latest Contact Info) Description 03/13/2024 8:00 AM CDT Ancillary Procedure Department of Ophthalmology in [place], [place] [address] [place] [address] Kenya Garza M.D. [address] [place] [address] Panuveitis Right; Necrosis Retinal Acute Right Social History Tobacco Use Types Packs/Day Years Used Date Smoking Tobacco: Light Smoker Cigarettes 0.5 44.3 Started: 02/26/1980 Smokeless Tobacco: Never Comments:On again off again Alcohol Use Standard Drinks/Week Comments Yes 0 (1 standard drink = 0.6 oz pur e alcohol) [facility] Utilities Answer Date Recorded In the past 12 months has [employer], gas, oil, or water [employer] threatened to shut off services in your home? No 11/05/2023 Social Connection and Isolation Panel [NHANES] A nswer Date Recorded In a typical week, how many times do you talk on the phone with family, friends, or neighbors? Once a week 06/27/2020 How often do you get together with friends or re latives? Never 06/27/2020 How often do you attend jainism or muslim serv ices? Never 06/27/2020 Do [...] and heating? Somewhat hard 06/27/2020 [facility] of Occupat ional Health - Occupational [...] 06/01/2024 10:00 AM CDT Hospital Encounter [facility] [place] [phone] Prakash Graham M.D. [address] [place] [phone] 06/01/2024 2:50 PM CDT - 06/01/2024 5:47 PM CDT Surgery [facility] [address] [place] [phone] Prakash Graham M.D. [address] [place] [phone] VITRECTOMY, PARS PLANA 25 GAUGE, MEMBRANE PEEL, SILICONE OIL, SCLERAL BUCKLE, ALL ASSOCIATED PROCEDURES RIGHT EYE. 06/02/2024 8:00 AM CDT Office Visit Department of Ophthalmology in [place], [place] [address] [place] [phone] Prakash Graham M.D. [address] [place] [phone] 06/09/2024 9:30 AM CDT Ancillary Procedure Department of Ophthalmology in [place], [place] [address] [place] [phone] Prakash Graham M.D. [address] [place] [phone] 06/09/2024 10:00 AM CDT Office Visit Department of Ophthalmology in [place], [place] [address] [place] [phone] Prakash Graham M.D. [address] [place] [phone] 07/16/2024 8:45 AM CDT Ancillary Procedure Department of Ophthalmology in [place], [place] [address] [place] [phone] Prakash Graham M.D. [address] [place] [phone] 07/16/2024 9:15 AM CDT Ancillary Procedure Department of Ophthalmology in [place], [place] [address] [place] [phone] Prakash Graham M.D. [address] [place] [phone] 07/16/2024 9:30 AM CDT Office Visit Department of Ophthalmology in [address] [phone] Kenya Garza M.D. [address] [place] [phone] 07/16/2024 12:45 PM CDT Office Visit Department of Ophthalmology in [address] [phone] Prakash Graham M.D. [address] [place] [phone] Scheduled Procedures Name Priority Associated Diagnoses Date/Ti [...] Right documented in this encounter Care Teams Bankruptcy Processor Relationship Specialty Start Date End Date Elsewhere, Pcp PCP - General Internal Medicine 05/29/19 documented as of this encounter
--- OUTSIDE RECORDS SUMMARY | 2024-05-28 14:49 | XMS_ITS | Encounter Summary ---
Author Organization [facility] Address [address] [place] [address] Care Team Providers Care Web Marketing Assistant Name Role Phone Elsewhere, Pcp Primary Care Provider Unavailabl e Reason for Referral * MRI/CAT/PET Scan (Routine) - Closed Specialty Diagnoses / Procedures Referred By Apolinar lopez Referred To Contact Radiology Diagnoses Posterior Reversible Encephalopathy Syndrome Procedures MR Brain without and with IV Contrast Piter Baez M.D. 200 [place] [address] [facility] Referral ID Status Reason Start Date Expiration Date Visits Re quested Visits Authorized [id number] Closed 02/03/2024 10/27/2024 1 1 Reason for Visit * Reason Onset Date Comments Pre-visit Testing Orders 01/31/2024 Encounter Details Date Type Department Care Team (Latest Contact Info) Description 01/31/2024 Clinical Communication Department of Neurology in [place], [place] 200 [place] [phone] Piter Baez M.D. [address] [place] [phone] Pre-visit Testing Orders Social History Tobacco Use Types Packs/Day Years Used Date Smoking Tobacco: Light Smoker Cigarettes 0.5 44.3 Started: 02/26/1980 Smokeless Tobacco: Never Comments:On again off again Alcohol Use Standard Drinks/Week Comments Yes 0 (1 standard drink = 0.6 oz pur e alcohol) [facility] Utilities Answer Date Recorded In the [...] How often do you attend buddhism or sikh serv ices? Never 06/27/2020 Do [...] medical care, and heating? Somewhat hard 06/27/2020 [facility] [place] of Occupat ional Health - Occupational Stress [...] 10:00 AM CDT Hospital Encounter [facility] [address] [place] [phone] Prakash Graham M.D. [address] [place] [phone] 06/01/2024 2:50 PM CDT - 06/01/2024 5:47 PM CDT Surgery [facility] [address] [place] [phone] Prakash Graham M.D. [address] [place] [phone] VITRECTOMY, PARS PLANA 25 GAUGE, MEMBRANE PEEL, SILICONE OIL, SCLERAL BUCKLE, ALL ASSOCIATED PROCEDURES RIGHT EYE. 06/02/2024 8:00 AM CDT Office Visit Department of Ophthalmology in [place], [place] [address] [place] [phone] Prakash Graham M.D. [address] [place] [phone] 06/09/2024 9:30 AM CDT Ancillary Procedure Department of Ophthalmology in [place], [place] [address] [place] [phone] Prakash Graham M.D. [address] [place] [phone] 06/09/2024 10:00 AM CDT Office Visit Department of Ophthalmology in [place], [place] [address] [place] [phone] Prakash Graham M.D. [address] [place] [phone] 07/16/2024 8:45 AM CDT Ancillary Procedure Department of Ophthalmology in [place], [place] [address] [place] [phone] Prakash Graham M.D. [address] [place] [phone] 07/16/2024 9:15 AM CDT Ancillary Procedure Department of Ophthalmology in [place], [place] [address] [place] [phone] Prakash Graham M.D. [address] [place] [phone] 07/16/2024 9:30 AM CDT Office Visit Department of Ophthalmology in [place], [place] [address] [place] [phone] Kenya Garza M.D. [address] [place] [address] 07/16/2024 12:45 PM CDT Office Visit Department of Ophthalmology in [place], [place] [address] [place] [address] Prakash Graham M.D. [address] [place] [phone] Scheduled Procedures Name Priority Associated Diagnoses Date/Ti me VITRECTOMY - PARS PLANA 25 GAUGE Panuveitis Right Necrosis Retinal Acute Right 06/01/2024 2:50 PM CDT SCLERAL BUCKLING Panuveitis Right Necrosis Retinal Acute Right 06/01/2024 2:50 PM CDT documented as of this encounter Results * MR Brain without and with IV Contrast (02/20/2024 4:08 PM CDT) Anatomical Region Laterality Modality Head, Brain, Neuroradiology [facility], [facility], Neuroradiology [facility] N/A Magnetic Resonance Impressions 02/21/2024 8:07 [...] Right documented in this encounter Care Teams Web Marketing Assistant Relationship Specialty Start Date End Date Elsewhere, Pcp PCP - General Internal Medicine 05/29/19 documented as of this encounter
--- OUTSIDE RECORDS SUMMARY | 2024-05-28 14:49 | XMS_ITS | Encounter Summary ---
Author Organization [facility] Address [address] [place] [address] Care Team Providers Care Air Pumper Name Role Phone Elsewhere, Pcp Primary Care Provider Unavailabl e Reason for Visit * Outpatient (Routine) - Closed Specialty Diagnoses / Procedures Referred By Contmuriel t Referred To Contact Neurology Piter Baez M.D. [address] [place] [phone] [facility] Referral ID Status Reason Start Date Expiration Date Visits Re quested Visits Authorized [id number] Closed 02/20/2024 08/21/2025 1 1 Encounter Details Date Type Department Care Team (Latest Contact Info) Description 02/25/2024 4:30 PM CDT Telemedicine Department of Neurology in [place], [place] [address] [place] [phone] Piter Baez M.D. [address] [place] [phone] Posterior Reversible Encephalopathy Syndrome (Primary [...] How often do you attend episcopalian or restoration serv ices? Never 06/27/2020 Do [...] medical care, and heating? Somewhat hard 06/27/2020 [facility] [place] of Occupat ional Health - Occupational Stress [...] audio/video technology by Piter Baez M.D. in [facility] to the patient at home. [...] 10:00 AM CDT [facility] [place] [phone] Prakash Graham M.D. [address] [place] [phone] 06/01/2024 2:50 PM CDT - 06/01/2024 5:47 PM CDT Surgery [facility]ST [facility] OR [facility] [place] [phone] Prakash Graham M.D. [address] [place] [phone] VITRECTOMY, PARS PLANA 25 GAUGE, MEMBRANE PEEL, SILICONE OIL, SCLERAL BUCKLE, ALL ASSOCIATED PROCEDURES RIGHT EYE. 06/02/2024 8:00 AM CDT Office Visit Department of Ophthalmology in [place], [place] [address] [place] [phone] Prakash Graham M.D. [address] [place] [phone] 06/09/2024 9:30 AM CDT Ancillary Procedure Department of Ophthalmology in [place], [place] [address] [place] [phone] Prakash Graham M.D. [address] [place] [phone] 06/09/2024 10:00 AM CDT Office Visit Department of Ophthalmology in [place], [place] [address] [place] [phone] Prakash Graham M.D. [address] [place] [phone] 07/16/2024 8:45 AM CDT Ancillary Procedure Department of Ophthalmology in [place], [place] [address] [place] [phone] Prakash Graham M.D. [address] [place] [phone] 07/16/2024 9:15 AM CDT Ancillary Procedure Department of Ophthalmology in [place], [place] [address] [place] [phone] Prakash Graham M.D. [address] [place] [phone] 07/16/2024 9:30 AM CDT Office Visit Department of Ophthalmology in [place], [place] [address] [place] [phone] Kenya Garza M.D. [address] [place] [phone] 07/16/2024 12:45 PM CDT Office Visit Department of Ophthalmology in [place], [place] [address] [place] [phone] Prakash Graham M.D. [address] [place] [address] Scheduled Procedures Name Priority Associated Diagnoses Date/Ti me VITRECTOMY - PARS PLANA 25 GAUGE Panuveitis Right Necrosis Retinal Acute Right 06/01/2024 2:50 PM CDT SCLERAL BUCKLING Panuveitis Right Necrosis Retinal Acute Right 06/01/2024 2:50 PM CDT documented as of this encounter Visit Diagnoses Diagnosis Posterior Reversible Encephalopathy Syndrome- Primary Panuveitis Right Necrosis Retinal Acute Right documented in this encounter Care Teams Air Pumper Relationship Specialty Start Date End Date Elsewhere, Pcp PCP - General Internal Medicine 05/29/19 documented as of this encounter
--- OUTSIDE RECORDS SUMMARY | 2024-05-28 14:49 | XMS_ITS | Encounter Summary ---
Author Organization [facility] Address [address] [place] [address] Care Team Providers Care Test Worker Name Role Phone Elsewhere, Pcp Primary [...] In the past 12 months has th [employer], gas, oil, or water company threatened [...] How often do you attend buddhist or jew serv ices? Never 06/27/2020 Do [...] heating? Somewhat hard 06/27/2020 [facility] - Occupational Stress Questionnaire Answer [...] 06/01/2024 10:00 AM CDT Hospital Encounter [facility] [place] [address] [place] [phone] Prakash Graham M.D. [address] [place] [phone] 06/01/2024 2:50 PM CDT - 06/01/2024 5:47 PM CDT Surgery [facility] [address] [place] [phone] Prakash Graham M.D. [address] [place] [phone] VITRECTOMY, PARS PLANA 25 GAUGE, MEMBRANE PEEL, SILICONE OIL, SCLERAL BUCKLE, ALL ASSOCIATED PROCEDURES RIGHT EYE. 06/02/2024 8:00 AM CDT Office Visit Department of Ophthalmology in [address] [phone] Prakash Graham M.D. [address] [place] [phone] 06/09/2024 9:30 AM CDT Ancillary Procedure Department of Ophthalmology in [address] [phone] Prakash Graham M.D. [address] [place] [phone] 06/09/2024 10:00 AM CDT Office Visit Department of Ophthalmology in [place], [place] [address] [place] [phone] Prakash Graham M.D. [address] [place] [phone] 07/16/2024 8:45 AM CDT Ancillary Procedure Department of Ophthalmology in [place], [place] [address] [place] [phone] Prakash Graham M.D. [address] [place] [phone] 07/16/2024 9:15 AM CDT Ancillary Procedure Department of Ophthalmology in [place], [place] [address] [place] [phone] Prakash Graham M.D. [address] [place] [phone] 07/16/2024 9:30 AM CDT Office Visit Department of Ophthalmology in [place], [place] [address] [place] [phone] Kenya Garza M.D. [address] [place] [phone] 07/16/2024 12:45 PM CDT Office Visit Department of Ophthalmology in [place], [place] [address] [place] [phone] Prakash Graham M.D. [address] [place] [phone] Scheduled Procedures Name Priority Associated Diagnoses Date/Ti [...] in this encounter Results * Video-Eyes US-Eye T-Oinw-Srqemhdzdysmr Image Exam (02/20/2024 12:00 AM CDT) Narrative [...] on filedocumented in this encounter Care Teams Test Worker Relationship Specialty Start Date End Date Elsewhere, Pcp PCP - General Internal Medicine 05/29/19 documented as of this encounter
--- OUTSIDE RECORDS SUMMARY | 2024-05-28 14:49 | XMS_ITS | Encounter Summary ---
Author Organization [facility] Address [address] [place] [address] Care Team Providers Care Vehicle Assembler Name Role Phone Elsewhere, Pcp Primary Care Provider Unavailabl e Encounter Details Date Type Department Care Team (Latest Contact Info) Description 03/11/2024 Clinical Communication Department of Ophthalmology in [place], [place] [address] [place] [address] Kenya Garza M.D. [address] [place] [address] Social History Tobacco Use Types Packs/Day Years Used Date Smoking Tobacco: Light Smoker Cigarettes 0.5 44.3 Started: 02/26/1980 Smokeless Tobacco: Never Comments:On again off again Alcohol Use Standard Drinks/Week Comments Yes 0 (1 standard drink = 0.6 oz pur e alcohol) [facility] Utilities Answer Date Recorded In the past 12 months has [employer], gas, oil, or water [employer] threatened to shut off services in your home? No 11/05/2023 Social Connection and Isolation Panel [NHANES] A nswer Date Recorded In a typical week, how many times do you talk on the phone with family, friends, or neighbors? Once a week 06/27/2020 How often do you get together with friends or re latives? Never 06/27/2020 How often do you attend catholic or faith serv ices? Never 06/27/2020 Do you belong [...] living situation today? [facility] 11/05/2023 Education Answer Date [...] [facility] [place] [phone] Prakash Graham M.D. [address] [place] [phone] 06/01/2024 2:50 PM CDT - 06/01/2024 5:47 PM CDT Surgery [facility] OR [address] [place] [phone] Prakash Graham M.D. [address] [place] [phone] VITRECTOMY, PARS PLANA 25 GAUGE, MEMBRANE PEEL, SILICONE OIL, SCLERAL BUCKLE, ALL ASSOCIATED PROCEDURES RIGHT EYE. 06/02/2024 8:00 AM CDT Office Visit Department of Ophthalmology in [place], [place] [address] [place] [phone] Prakash Graham M.D. [address] [place] [phone] 06/09/2024 9:30 AM CDT Ancillary Procedure Department of Ophthalmology in [place], [place] [address] [place] [phone] Prakash Graham M.D. [address] [place] [phone] 06/09/2024 10:00 AM CDT Office Visit Department of Ophthalmology in [place], [place] [address] [place] [phone] Prakash Graham M.D. [address] [place] [phone] 07/16/2024 8:45 AM CDT Ancillary Procedure Department of Ophthalmology in [place], [place] [address] [place] [phone] Prakash Graham M.D. [address] [place] [phone] 07/16/2024 9:15 AM CDT Ancillary Procedure Department of Ophthalmology in [place], [place] [address] [place] [phone] Prakash Graham M.D. [address] [place] [phone] 07/16/2024 9:30 AM CDT Office Visit Department of Ophthalmology in [address] [phone] Kenya Garza M.D. [address] [place] [phone] 07/16/2024 12:45 PM CDT Office Visit Department of Ophthalmology in [place], [place] [address] [place] [phone] Prakash Graham M.D. [address] [place] [phone] Scheduled Procedures Name Priority Associated Diagnoses Date/Ti me VITRECTOMY - PARS PLANA 25 GAUGE Panuveitis Right Necrosis Retinal Acute Right 06/01/2024 2:50 PM CDT SCLERAL BUCKLING Panuveitis Right Necrosis Retinal Acute Right 06/01/2024 2:50 PM CDT documented as of this encounter Visit Diagnoses Not on filedocumented in this encounter Care Teams Vehicle Assembler Relationship Specialty Start Date End Date Elsewhere, Pcp PCP - General Internal Medicine 05/29/19 documented as of this encounter
--- OUTSIDE RECORDS SUMMARY | 2024-05-28 14:49 | XMS_ITS | Encounter Summary ---
Author Organization [facility] Address [address] [place] [address] Care Team Providers Care Engineer Station Mainline Name Role Phone Elsewhere, Pcp Primary Care [...] = 0.6 oz pur e alcohol) [facility] Utilities Answer Date Recorded In [...] Never 06/27/2020 How often do you attend yarsani or cheondoism serv ices? Never 06/27/2020 Do you belong to any clubs o r organizations such as yarsani groups, unions, fraternal or athletic groups, or [...] Somewhat hard 06/27/2020 [facility] of Occupat ional [facility] - Occupational Stress Questionnaire Answer Date [...] 06/01/2024 10:00 AM CDT Hospital Encounter [facility] OR [facility] [address] [place] [phone] Prakash Graham M.D. [address] [place] [phone] 06/01/2024 2:50 PM CDT - 06/01/2024 5:47 PM CDT Surgery [facility] OR [address] [place] [phone] Prakash Graham M.D. [address] [place] [phone] VITRECTOMY, PARS PLANA 25 GAUGE, MEMBRANE PEEL, SILICONE OIL, SCLERAL BUCKLE, ALL ASSOCIATED PROCEDURES RIGHT EYE. 06/02/2024 8:00 AM CDT Office Visit Department of Ophthalmology in [address] [phone] Prakash Graham M.D. [address] [place] [phone] 06/09/2024 9:30 AM CDT Ancillary Procedure Department of Ophthalmology in [place], [place] [address] [place] [phone] Prakash Graham M.D. [address] [place] [phone] 06/09/2024 10:00 AM CDT Office Visit Department of Ophthalmology in [place], [place] [address] [place] [phone] Prakash Graham M.D. [address] [place] [phone] 07/16/2024 8:45 AM CDT Ancillary Procedure Department of Ophthalmology in [place], [place] [address] [place] [phone] Prakash Graham M.D. [address] [place] [phone] 07/16/2024 9:15 AM CDT Ancillary Procedure Department of Ophthalmology in [place], [place] [address] [place] [phone] Prakash Graham M.D. [address] [place] [phone] 07/16/2024 9:30 AM CDT Office Visit Department of Ophthalmology in [place], [place] [address] [place] [phone] Kenya Garza M.D. [address] [place] [phone] 07/16/2024 12:45 PM CDT Office Visit Department of Ophthalmology in [place], [place] [address] [place] [phone] Prakash Graham M.D. [address] [place] [phone] Scheduled Procedures Name Priority Associated Diagnoses Date/Ti [...] in this encounter Results * Eyes US-Eye E-Zjmg-Srapwuwpnfqbd Image Exam (02/20/2024 12:05 AM CDT) Narrative [...] on filedocumented in this encounter Care Teams Engineer Station Mainline Relationship Specialty Start Date End Date Elsewhere, Pcp PCP - General Internal Medicine 05/29/19 documented as of this encounter
--- OUTSIDE RECORDS SUMMARY | 2024-05-28 14:49 | XMS_ITS | Encounter Summary ---
Author Organization [facility] Address [address] [place] [address] Care Team Providers Care Ticket Seller Name Role Phone Elsewhere, Pcp Primary Care Provider Unavailabl e Encounter Details Date Type Department Care Team (Latest Contact Info) Description 03/13/2024 12:00 PM CDT Ancillary Procedure Department of Ophthalmology in [place], [place] [address] [place] [address] Kenya Garza M.D. [address] [place] [address] Panuveitis Right; Necrosis Retinal Acute Right Social History Tobacco Use Types Packs/Day Years Used Date Smoking Tobacco: Light Smoker Cigarettes 0.5 44.3 Started: 02/26/1980 Smokeless Tobacco: Never Comments:On again off again Alcohol Use Standard Drinks/Week Comments Yes 0 (1 standard drink = 0.6 oz pur e alcohol) [facility] Utilities Answer Date Recorded In the past 12 months has [employer], gas, oil, or water [employer] threatened to shut off services in your home? No 11/05/2023 Social Connection and Isolation Panel [NHANES] A nswer Date Recorded In a typical week, how many times do you talk on the phone with family, friends, or neighbors? Once a week 06/27/2020 How often do you get together with friends or re latives? Never 06/27/2020 How often do you attend rastafarian or congregational serv ices? Never 06/27/2020 Do [...] medical care, and heating? Somewhat hard 06/27/2020 [facility] [place] of Occupat ional Health - Occupational Stress [...] 06/01/2024 10:00 AM CDT Hospital Encounter [facility] OR [facility] [place] [phone] Prakash Graham M.D. [address] [place] [phone] 06/01/2024 2:50 PM CDT - 06/01/2024 5:47 PM CDT Surgery [facility] [address] [place] [phone] Prakash Graham M.D. [address] [place] [phone] VITRECTOMY, PARS PLANA 25 GAUGE, MEMBRANE PEEL, SILICONE OIL, SCLERAL BUCKLE, ALL ASSOCIATED PROCEDURES RIGHT EYE. 06/02/2024 8:00 AM CDT Office Visit Department of Ophthalmology in [place], [place] [address] [place] [phone] Prakash Graham M.D. [address] [place] [phone] 06/09/2024 9:30 AM CDT Ancillary Procedure Department of Ophthalmology in [place], [place] [address] [place] [phone] Prakash Graham M.D. [address] [place] [phone] 06/09/2024 10:00 AM CDT Office Visit Department of Ophthalmology in [place], [place] [address] [place] [phone] Prakash Graham M.D. [address] [place] [phone] 07/16/2024 8:45 AM CDT Ancillary Procedure Department of Ophthalmology in [place], [place] [address] [place] [phone] Prakash Graham M.D. [address] [place] [phone] 07/16/2024 9:15 AM CDT Ancillary Procedure Department of Ophthalmology in [place], [place] [address] [place] [phone] Prakash Graham M.D. [address] [place] [phone] 07/16/2024 9:30 AM CDT Office Visit Department of Ophthalmology in [address] [phone] Kenya Garza M.D. [address] [place] [phone] 07/16/2024 12:45 PM CDT Office Visit Department of Ophthalmology in [address] [phone] Prakash Graham M.D. [address] [place] [phone] Scheduled Procedures Name Priority Associated Diagnoses Date/Ti [...] Right documented in this encounter Care Teams Ticket Seller Relationship Specialty Start Date End Date Elsewhere, Pcp PCP - General Internal Medicine 05/29/19 documented as of this encounter
--- OUTSIDE RECORDS SUMMARY | 2024-05-28 14:49 | XMS_ITS | Encounter Summary ---
Author Organization [facility] Address [address] [place] [address] Care Team Providers Care Medical Parasitologist Name Role Phone Elsewhere, Pcp Primary Care Provider Unavailabl e Encounter Details Date Type Department Care Team (Latest Contact Info) Description 02/20/2024 10:00 AM CDT Ancillary Procedure Department of Ophthalmology in [place], [place] [address] [place] [address] Kenya Garza M.D. [address] [place] [address] Panuveitis Right; Necrosis Retinal Acute Right Social History Tobacco Use Types Packs/Day Years Used Date Smoking Tobacco: Light Smoker Cigarettes 0.5 44.3 Started: 02/26/1980 Smokeless Tobacco: Never Comments:On again off again Alcohol Use Standard Drinks/Week Comments Yes 0 (1 standard drink = 0.6 oz pur e alcohol) [facility] Utilities Answer Date Recorded In the past 12 months has [employer], gas, oil, or water [facility] threatened to shut off services in your home? No 11/05/2023 Social Connection and Isolation Panel [NHANES] A nswer Date Recorded In a typical week, how many times do you talk on the phone with family, friends, or neighbors? Once a week 06/27/2020 How often do you get together with friends or re latives? Never 06/27/2020 How often do you attend yarsani or rastafarian serv ices? Never 06/27/2020 Do [...] hard 06/27/2020 [facility] of Occupat ional Health - Occupational Stress [...] 06/01/2024 10:00 AM CDT Hospital Encounter [facility] OR [facility] [address] [place] [phone] Prakash Graham M.D. [address] [place] [phone] 06/01/2024 2:50 PM CDT - 06/01/2024 5:47 PM CDT Surgery [facility] [address] [place] [phone] Prakash Graham M.D. [address] [place] [phone] VITRECTOMY, PARS PLANA 25 GAUGE, MEMBRANE PEEL, SILICONE OIL, SCLERAL BUCKLE, ALL ASSOCIATED PROCEDURES RIGHT EYE. 06/02/2024 8:00 AM CDT Office Visit Department of Ophthalmology in [place], [place] [address] [place] [phone] Prakash Graham M.D. [address] [place] [phone] 06/09/2024 9:30 AM CDT Ancillary Procedure Department of Ophthalmology in [place], [place] [address] [place] [phone] Prakash Graham M.D. [address] [place] [phone] 06/09/2024 10:00 AM CDT Office Visit Department of Ophthalmology in [place], [place] [address] [place] [phone] Prakash Graham M.D. [address] [place] [phone] 07/16/2024 8:45 AM CDT Ancillary Procedure Department of Ophthalmology in [place], [place] [address] [place] [phone] Prakash Graham M.D. [address] [place] [phone] 07/16/2024 9:15 AM CDT Ancillary Procedure Department of Ophthalmology in [place], [place] [address] [place] [phone] Prakash Graham M.D. [address] [place] [phone] 07/16/2024 9:30 AM CDT Office Visit Department of Ophthalmology in [address] [phone] Kenya Garza M.D. [address] [place] [phone] 07/16/2024 12:45 PM CDT Office Visit Department of Ophthalmology in [address] [phone] Prakash Graham M.D. [address] [place] [phone] Scheduled Procedures Name Priority Associated Diagnoses Date/Ti [...] documented in this encounter Care Teams Medical Parasitologist Relationship Specialty Start Date End Date Elsewhere, Pcp PCP - General Internal Medicine 05/29/19 documented as of this encounter
--- OUTSIDE RECORDS SUMMARY | 2024-05-28 14:49 | XMS_ITS | Encounter Summary ---
Author Organization [facility] Address [address] [place] [address] Care Team Providers Care Supervisor Waterworks Name Role Phone Elsewhere, Pcp Primary Care Provider Unavailabl e Encounter Details Date Type Department Care Team (Latest Contact Info) Description 03/10/2024 Clinical Communication Department of Ophthalmology in [place], [place] [address] [place] [address] Kenya Garza M.D. [address] [place] [address] Social History Tobacco Use Types Packs/Day Years Used Date Smoking Tobacco: Light Smoker Cigarettes 0.5 44.3 Started: 02/26/1980 Smokeless Tobacco: Never Comments:On again off again Alcohol Use Standard Drinks/Week Comments Yes 0 (1 standard drink = 0.6 oz pur e alcohol) [facility] Utilities Answer Date Recorded In the past 12 months has [employer], gas, oil, or water [employer] threatened to shut off services in your home? No 11/05/2023 Social Connection and Isolation Panel [NHANES] A nswer Date Recorded In a typical week, how many times do you talk on the phone with family, friends, or neighbors? Once a week 06/27/2020 How often do you get together with friends or re latives? Never 06/27/2020 How often do you attend rastafarian or tenriism serv ices? Never 06/27/2020 Do [...] and heating? Somewhat hard 06/27/2020 [facility] of Occupat ional Health - Occupational [...] your living situation today? [facility] 11/05/2023 Education [...] CDT [facility] [address] [place] [phone] Prakash Graham M.D. [address] [place] [phone] 06/01/2024 2:50 PM CDT - 06/01/2024 5:47 PM CDT Surgery RST [facility] OR [address] [place] [phone] Prakash Graham M.D. [address] [place] [phone] VITRECTOMY, PARS PLANA 25 GAUGE, MEMBRANE PEEL, SILICONE OIL, SCLERAL BUCKLE, ALL ASSOCIATED PROCEDURES RIGHT EYE. 06/02/2024 8:00 AM CDT Office Visit Department of Ophthalmology in [place], [place] [address] [place] [phone] Prakash Graham M.D. [address] [place] [phone] 06/09/2024 9:30 AM CDT Ancillary Procedure Department of Ophthalmology in [place], [place] [address] [place] [phone] Prakash Graham M.D. [address] [place] [phone] 06/09/2024 10:00 AM CDT Office Visit Department of Ophthalmology in [place], [place] [address] [place] [phone] Prakash Graham M.D. [address] [place] [phone] 07/16/2024 8:45 AM CDT Ancillary Procedure Department of Ophthalmology in [place], [place] [address] [place] [phone] Prakash Graham M.D. [address] [place] [phone] 07/16/2024 9:15 AM CDT Ancillary Procedure Department of Ophthalmology in [place], [place] [address] [place] [phone] Prakash Graham M.D. [address] [place] [phone] 07/16/2024 9:30 AM CDT Office Visit Department of Ophthalmology in [address] [phone] Kenya Garza M.D. [address] [place] [phone] 07/16/2024 12:45 PM CDT Office Visit Department of Ophthalmology in [place], [place] [address] [place] [phone] Prakash Graham M.D. [address] [place] [phone] Scheduled Procedures Name Priority Associated Diagnoses Date/Ti me VITRECTOMY - PARS PLANA 25 GAUGE Panuveitis Right Necrosis Retinal Acute Right 06/01/2024 2:50 PM CDT SCLERAL BUCKLING Panuveitis Right Necrosis Retinal Acute Right 06/01/2024 2:50 PM CDT documented as of this encounter Visit Diagnoses Not on filedocumented in this encounter Care Teams Supervisor Waterworks Relationship Specialty Start Date End Date Elsewhere, Pcp PCP - General Internal Medicine 05/29/19 documented as of this encounter
--- OUTSIDE RECORDS SUMMARY | 2024-05-28 14:49 | XMS_ITS | Encounter Summary ---
Author Organization [facility] Address [address] [place] [address] Care Team Providers Care Locket Maker Name Role Phone Elsewhere, Pcp Primary Care Provider Unavailabl e Reason for Referral * Outpatient (Routine) - Closed Specialty Diagnoses / Procedures Referred By Contac t Referred To Contact Neurology Piter Baez M.D. 200 [place] [address] [facility] Referral ID Status Reason Start Date Expiration Date Visits Re quested Visits Authorized [id number] Closed 02/20/2024 08/21/2025 1 1 Reason for Visit * Outpatient (Routine) - Closed Specialty Diagnoses / Procedures Referred By Contac t Referred To Contact Neurology Diagnoses Posterior Reversible Encephalopathy Syndrome Katerine Bashir M.D. [address] [place] [address] [facility] Referral ID Status Reason Start Date Expiration Date Visits Re quested Visits Authorized [id number] Closed 01/20/2024 07/21/2025 1 1 Encounter Details Date Type Department Care Team (Latest Contact Info) Description 02/20/2024 1:00 PM CDT Comprehensive Visit Department of Neurology in [place], [place] 200 [place] [phone] Piter Baez M.D. 200 [place] [phone] Posterior Reversible Encephalopathy Syndrome Social History Tobacco Use Types Packs/Day Years Used Date Smoking Tobacco: Light Smoker Cigarettes 0.5 44.3 Started: 02/26/1980 Smokeless Tobacco: Never Comments:On again off again Alcohol Use Standard Drinks/Week Comments Yes 0 (1 standard drink = 0.6 oz pur e alcohol) [facility] Utilities Answer Date Recorded In the past [...] How often do you attend congregation or mu-ism serv ices? Never 06/27/2020 Do [...] medical care, and heating? Somewhat hard 06/27/2020 [facility] of Occupat ional Health - Occupational Stress [...] . Referring provider: Katerine Bashir M.D. [address] [place] [address] HISTORY OF PRESENT ILLNESS Pleasant 68-year-old right-handed woman accompanied by her who is referred by her PCP for an initial neurology evaluation regarding recent hospitalization elsewhere for PRES. She gets her ophthalmology care at [place] by Dr. 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 She gets all of her care for other medical conditions in [place] and I do not have access to [facility] these records. 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 [...] her care here rather than[facility]ing to the [facility] We have scheduled an [...] 06/01/2024 10:00 AM CDT Hospital Encounter [facility] [place] [address] [place] [phone] Prakash Graham M.D. [address] [place] [address] 06/01/2024 2:50 PM CDT - 06/01/2024 5:47 PM CDT Surgery [facility] [address] [place] [phone] Prakash Graham M.D. [address] [place] [phone] VITRECTOMY, PARS PLANA 25 GAUGE, MEMBRANE PEEL, SILICONE OIL, SCLERAL BUCKLE, ALL ASSOCIATED PROCEDURES RIGHT EYE. 06/02/2024 8:00 AM CDT Office Visit Department of Ophthalmology in [place], [place] [address] [place] [phone] Prakash Graham M.D. [address] [place] [phone] 06/09/2024 9:30 AM CDT Ancillary Procedure Department of Ophthalmology in [place], [place] [address] [place] [phone] Prakash Graham M.D. [address] [place] [phone] 06/09/2024 10:00 AM CDT Office Visit Department of Ophthalmology in [address] [phone] Prakash Graham M.D. [address] [place] [phone] 07/16/2024 8:45 AM CDT Ancillary Procedure Department of Ophthalmology in [place], [place] [address] [place] [phone] Prakash Graham M.D. [address] [place] [phone] 07/16/2024 9:15 AM CDT Ancillary Procedure Department of Ophthalmology in [place], [place] [address] [place] [phone] Prakash Graham M.D. [address] [place] [phone] 07/16/2024 9:30 AM CDT Office Visit Department of Ophthalmology in [place], [place] [address] [place] [address] Kenya Garza M.D. [address] [place] [phone] 07/16/2024 12:45 PM CDT Office Visit Department of Ophthalmology in [place], [place] [address] [place] [address] Prakash Graham M.D. [address] [place] [phone] Scheduled Procedures Name Priority Associated Diagnoses Date/Ti [...] Right documented in this encounter Care Teams Locket Maker Relationship Specialty Start Date End Date Elsewhere, Pcp PCP - General Internal Medicine 05/29/19 documented as of this encounter
--- OUTSIDE RECORDS SUMMARY | 2024-05-28 14:49 | XMS_ITS | Encounter Summary ---
Author Organization [facility] Address [address] [place] [address] Care Team Providers Care Administrator Of Home Health Name Role Phone Elsewhere, Pcp Primary Care [...] 0.6 oz pur e alcohol) [facility] Utilities Answer Date Recorded In the [...] How often do you attend religion or baptism serv ices? Never 06/27/2020 Do [...] medical care, and heating? Somewhat hard 06/27/2020 [facility] of Occupat ional [facility] - Occupational Stress Questionnaire Answer [...] 06/01/2024 10:00 AM CDT Hospital Encounter [facility] OR [facility] [place] [phone] Prakash Graham M.D. [address] [place] [phone] 06/01/2024 2:50 PM CDT - 06/01/2024 5:47 PM CDT Surgery [facility]ST [facility] OR [address] [place] [phone] Prakash Graham M.D. [address] [place] [phone] VITRECTOMY, PARS PLANA 25 GAUGE, MEMBRANE PEEL, SILICONE OIL, SCLERAL BUCKLE, ALL ASSOCIATED PROCEDURES RIGHT EYE. 06/02/2024 8:00 AM CDT Office Visit Department of Ophthalmology in [address] [phone] Prakash Graham M.D. [address] [place] [phone] 06/09/2024 9:30 AM CDT Ancillary Procedure Department of Ophthalmology in [place], [place] [address] [place] [phone] Prakash Graham M.D. [address] [place] [phone] 06/09/2024 10:00 AM CDT Office Visit Department of Ophthalmology in [place], [place] [address] [place] [phone] Prakash Graham M.D. [address] [place] [phone] 07/16/2024 8:45 AM CDT Ancillary Procedure Department of Ophthalmology in [place], [place] [address] [place] [phone] Prakash Graham M.D. [address] [place] [phone] 07/16/2024 9:15 AM CDT Ancillary Procedure Department of Ophthalmology in [place], [place] [address] [place] [phone] Prakash Graham M.D. [address] [place] [phone] 07/16/2024 9:30 AM CDT Office Visit Department of Ophthalmology in [place], [place] [address] [place] [phone] Kenya Garza M.D. [address] [place] [phone] 07/16/2024 12:45 PM CDT Office Visit Department of Ophthalmology in [place], [place] [address] [place] [phone] Prakash Graham M.D. [address] [place] [phone] Scheduled Procedures Name Priority Associated Diagnoses Date/Ti [...] on filedocumented in this encounter Care Teams Administrator Of Home Health Relationship Specialty Start Date End Date Elsewhere, Pcp PCP - General Internal Medicine 05/29/19 documented as of this encounter
--- OUTSIDE RECORDS SUMMARY | 2024-05-28 14:50 | XMS_ITS | Encounter Summary ---
Author Organization [facility] Address [address] [place] [address] Care Team Providers Care Maintenance Of Way Supervisor Name Role Phone Elsewhere, Pcp Primary Care Provider Unavailabl e Reason for Referral * Outpatient (Routine) - Closed Specialty Diagnoses / Procedures Referred By Contac t Referred To Contact Cardiovascular Disease Diagnoses Coronary Artery Disease (Unspecified) Katerine Bashir M.D. [address] [place] [address] [facility] Referral ID Status Reason Start Date Expiration Date Visits Re quested Visits Authorized [id number] Closed 02/12/2019 02/12/2020 1 1 Encounter Details Date Type Department Care Team (Late st Contact Info) Description 02/12/2019 [facility] [address] [place] [address] Katerine Bashir M.D. [address] [place] [address] Coronary Artery Disease (Unspecified) (Primary [...] 06/01/2024 10:00 AM CDT [facility] [address] [place] [phone] Prakash Graham M.D. [address] [place] [phone] 06/01/2024 2:50 PM CDT - 06/01/2024 5:47 PM CDT Surgery [facility] [address] [place] [phone] Prakash Graham M.D. [address] [place] [phone] VITRECTOMY, PARS PLANA 25 GAUGE, MEMBRANE PEEL, SILICONE OIL, SCLERAL BUCKLE, ALL ASSOCIATED PROCEDURES RIGHT EYE. 06/02/2024 8:00 AM CDT Office Visit Department of Ophthalmology in [place], [place] [address] [place] [phone] Prakash Graham M.D. [address] [place] [phone] 06/09/2024 9:30 AM CDT Ancillary Procedure Department of Ophthalmology in [place], [place] [address] [place] [phone] Prakash Graham M.D. [address] [place] [phone] 06/09/2024 10:00 AM CDT Office Visit Department of Ophthalmology in [place], [place] [address] [place] [phone] Prakash Graham M.D. [address] [place] [phone] 07/16/2024 8:45 AM CDT Ancillary Procedure Department of Ophthalmology in [place], [place] [address] [place] [phone] Prakash Graham M.D. [address] [place] [phone] 07/16/2024 9:15 AM CDT Ancillary Procedure Department of Ophthalmology in [place], [place] [address] [place] [phone] Prakash Graham M.D. [address] [place] [phone] 07/16/2024 9:30 AM CDT Office Visit Department of Ophthalmology in [place], [place] [address] [place] [phone] Kenya Garza M.D. [address] [place] [phone] 07/16/2024 12:45 PM CDT Office Visit Department of Ophthalmology in [place], [place] [address] [place] [phone] Prakash Graham M.D. [address] [place] [phone] Scheduled Procedures Name Priority Associated Diagnoses Date/Ti [...] documented as of this encounter Care Teams Maintenance Of Way Supervisor Relationship Specialty Start Date End Date Elsewhere, Pcp PCP - General Internal Medicine 05/29/19 documented as of this encounter
--- OUTSIDE RECORDS SUMMARY | 2024-05-28 14:50 | XMS_ITS | Encounter Summary ---
Author Organization [facility] Address [address] [place] [address] Care Team Providers Care Slackline Operator Name Role Phone Elsewhere, Pcp Primary Care Provider Unavailabl e Reason for Visit * Reason Onset Date Comments Outside hospitalization and medications 01/10/20 Encounter Details Date Type Department Care Team (Latest Contact Info) Description 01/10/2024 Clinical Communication Department of Ophthalmology in [place], [place] [address] [place] [phone] Kenya Garza M.D. [address] [place] [phone] Outside hospitalization and medications Social History Tobacco Use Types Packs/Day Years Used Date Smoking Tobacco: Light Smoker Cigarettes 0.5 44.3 Started: 02/26/1980 Smokeless Tobacco: Never Comments:On again off again Alcohol Use Standard Drinks/Week Comments Yes 0 (1 standard drink = 0.6 oz pur e alcohol) [facility] Utilities Answer Date Recorded In the past 12 months has [employer], gas, oil, or water [employer] threatened to shut off services in your home? No 11/05/2023 Social Connection and Isolation Panel [NHANES] A nswer Date Recorded In a typical week, how many times do you talk on the phone with family, friends, or neighbors? Once a week 06/27/2020 How often do you get together with friends or re latives? Never 06/27/2020 How often do you attend confucianism or alevism serv ices? Never 06/27/2020 Do [...] medical care, and heating? Somewhat hard 06/27/2020 [facility] of Occupat ional Health - [...] 06/01/2024 10:00 AM CDT [facility] [address] [place] [phone] Prakash Graham M.D. [address] [place] [phone] 06/01/2024 2:50 PM CDT - 06/01/2024 5:47 PM CDT Surgery [facility] OR [facility] [address] [place] [phone] Prakash Graham M.D. [address] [place] [phone] VITRECTOMY, PARS PLANA 25 GAUGE, MEMBRANE PEEL, SILICONE OIL, SCLERAL BUCKLE, ALL ASSOCIATED PROCEDURES RIGHT EYE. 06/02/2024 8:00 AM CDT Office Visit Department of Ophthalmology in [place], [place] [address] [place] [phone] Prakash Graham M.D. [address] [place] [phone] 06/09/2024 9:30 AM CDT Ancillary Procedure Department of Ophthalmology in [address] [phone] Prakash Graham M.D. [address] [place] [phone] 06/09/2024 10:00 AM CDT Office Visit Department of Ophthalmology in [place], [place] [address] [place] [phone] Prakash Graham M.D. [address] [place] [phone] 07/16/2024 8:45 AM CDT Ancillary Procedure Department of Ophthalmology in [place], [place] [address] [place] [phone] Prakash Graham M.D. [address] [place] [phone] 07/16/2024 9:15 AM CDT Ancillary Procedure Department of Ophthalmology in [place], [place] [address] [place] [phone] Prakash Graham M.D. [address] [place] [phone] 07/16/2024 9:30 AM CDT Office Visit Department of Ophthalmology in [place], [place] [address] [place] [phone] Kenya Garza M.D. [address] [place] [phone] 07/16/2024 12:45 PM CDT Office Visit Department of Ophthalmology in [place], [place] [address] [place] [phone] Prakash Graham M.D. [address] [place] [phone] Scheduled Procedures Name Priority Associated Diagnoses Date/Ti me VITRECTOMY - PARS PLANA 25 GAUGE Panuveitis Right Necrosis Retinal Acute Right 06/01/2024 2:50 PM CDT SCLERAL BUCKLING Panuveitis Right Necrosis Retinal Acute Right 06/01/2024 2:50 PM CDT documented as of this encounter Visit Diagnoses Not on filedocumented in this encounter Care Teams Slackline Operator Relationship Specialty Start Date End Date Elsewhere, Pcp PCP - General Internal Medicine 05/29/19 documented as of this encounter
--- OUTSIDE RECORDS SUMMARY | 2024-05-28 14:50 | XMS_ITS | Clinical Summary ---
Author Organization [facility] Address [place], [place] [address] Care Team Providers Care Regional Environmental Manager Name Role Phone Easton Mccormick MD Unavailable [phone] Katerine Bashir MD Primary Care Provider + Allergies Active Allergy Reactions Criticality Noted Date Comments Wheeler Yefri Itching 09/11/2023 Medications Medication Sig Dispensed Refills Start Date End Date Status aspirin (ECOTRIN) 81 mg enteric coated tabletIndications:Non -ST elevation [place] (NSTEMI) (HC) Take 1 tablet by mouth once daily with a meal. 0 11/30/2015 Active atorvastatin (LIPITOR) 40 mg tabletIndications:Cor onary artery disease, angina presence unspecified, unspecified vessel or lesion type, unspecified whether pala or transplanted heart Take 1 tablet by [...] once daily with a meal. 01/14/2024 Active hydroCHLOROthiazide 25 mg tabletIndications:HTN (hypertension) Take 1 Tablet (25 mg) by mouth once daily. 90 Tablet 2 05/21/2024 Active Active Problems Problem Noted Date Diagnosed Date Acute respiratory failure 01/14/2024 [place] coma scale total score 3-8 01/14/2024 Coma [...] ACP (advance care planning) 09/11/2023 Non-ST elevation [place] (NSTEMI) 11/19/2015 Melanoma in situ 06/15/2014 Overview: Right lower anterior leg and upper right eyelid. 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 Morbid obesity 04/10/2010 Diabetes mellitus, type 2 HTN (hypertension) CAD (coronary artery disease) Hyperlipidemia LDL goal <70 Encounters Date Type Department Care Team Description 05/21/2024 8:30 AM CDT Office Visit [facility] [address] [place] [address] Shashank Smith MD CV General Cardiology Est 04/25/2024 12:30 PM CDT Ancillary Procedure [facility] [address] [place] [address] from Last 3 Months Immunizations Name Administration [...] Procedure Name Priority Date/Time Associated Diagnosis Comments ECHO TTE COMPLETE WO CONTRAST Routine 04/25/2024 12:52 PM CDT Atrial fib/flutter, transient (HC) XR MAMMO BILAT SCREEN FFDM (IA) Routine 10/04/2016 9:00 AM HEALTH CENTER MANAGER Visit for screening mammogram LIPID PANEL W REFLEX MEASURED LDL Routine 09/11/2016 9:26 AM HEALTH CENTER MANAGER Hyperlipidemia, unspecified XR DXA BONE DENSITY 2 SITES AXIAL Routine 08/18/2015 9:25 AM CDT Screening for osteoporosis from Last 3 Months or Most Recently Relevant to Health Maintenance Results * ECHO TTE COMPLETE WO CONTRAST (04/25/2024 12:52 PM CDT) AORTIC VALVE MEAN PG 4 mmHg EJECTION FRACTION 64 % LVEDD 4.1 cm Anatomical Region Laterality Modality Ultrasound 04/25/2024 12:1 6 PM CDT Narrative 04/25/2024 4:18 PM CDT ECHOCARDIOGRAM BREEZY TREJO ? Accession#: ?? [id number] : ?1955 68 years Study Date: ?? 04/25/2024 12:16:52 PM Gender: F ?BP: ? 114/84 mmHg Height: 168.00 cm ?BSA: ?2.00 m? ? ? Weight: 90.00 kg ? Tech: ? MRC ? Referring MD: BECKI ARANA Site: ? [facility] Reading Location: [facility] Patient Location: Inpatient. Procedure: 2D, Color Doppler and Spectral Doppler. Indication for study: A-Fib Cardiac Rhythm: Normal sinus and with premature ventricular contractions.Study quality: Fair. Final Impressions: 1. Normal left ventricular size, mildly increased wall thickness, normal global systolic function, calculated EF of 64 %. 2. Right ventricular cavity size is normal, global systolic RV function is normal. 3. The mitral valve is sclerotic, trace mitral regurgitation. 4. No pericardial effusion. Chamber Sizes and Function Normal left ventricular size, mildly increased wall thickness, normal global systolic function, calculated EF of 64 %. No definite resting regional wall motion abnormality seen. Left atrial size is normal. Right ventricular cavity size is normal, global systolic RV function is normal. The right atrium is normal. Right atrial volume index is 9 ml/m? ? ?. Right atrial area is 9 cm? ? ?. The pulmonary artery is of normal size and origin. The sinus of Valsalva is normal sized. The ascending aorta is normal sized. Valves, RV Pressures and Diastolic Function The aortic valve is normal in structure and trileaflet, no stenosis and no regurgitation. The mitral valve is sclerotic, trace mitral regurgitation. Spectral Doppler shows Grade 1 pattern of LV diastolic filling. The tricuspid valve is normal in structure. Tricuspid regurgitation is regurgitation is not evident. The pulmonic valve is normal. No pulmonary regurgitation. Masses, Effusion, Shunts There is no pericardial effusion. The inferior vena cava is normal sized, respiratory size variation greater than 50%. No left to right shunting was detected by limited color flow Doppler interrogation of the interatrial septum. MEASUREMENTS AND CALCULATIONS 2-D Measurements and LV Function: LVID (d) 4.1 cm Planimetered EF 64 % LVID (s) 2.8 cm LV FS% (2D) ? 30 % IVS (d) ??1.3 cm LVOT diameter ?? 2.1 cm LVPW (d) 1.4 cm HR ?76 bpm Ao Sinus 3.1 cm LA Vol index ?20 ml/m2 LA ? 3.6 cm RA Vol index ?9 ml/m2 ?RA area ? 9 cm?RV Max 4C (d) ?? 2.4 cm Diastology: Mitral ?Tissue Doppler E Peak 0.5 m/s ??e', Septum ? 0.05 m/s A Peak 0.6 m/s ??e', Lateral ?0.10 m/s E/A ?0.8 ?E/e' Average ?? 6.93 DT ? 179 msec Aortic Valve: Vmax ? 1.3 m/s ??KALIE (V) ?? 3.06 cm? ? ? VTI ?0.20 m ?? KALIE (I) ?? 2.87 cm? ? ? LVOT V max 1.2 m/s ??Max PG ?7 mmHg LVOT VTI ?? 0.17 m ?? Mean PG ?? 4 mmHg SV ? 58 ml ?Dim Index 0.84 SV index ?? 29 ml/m? ? ? CO ?4.4 l/min ?CI ?2.2 l/min/m? ? ? Mitral Valve: MVA ? 4.2 cm? ? ? MV P 1/2 ??52 msec MV Mean G 1 mmHg MV VTI ?0.26 m Tricuspid Valve and estimated PA pressures: TAPSE 1.6 cm Pulmonic Valve: PV AT 81 msec . This study was interpreted by an [facility] accredited facility. CC: HIM (med records) [facility], Med/Surg - IP [facility]. ??Final ?? Procedure Note Tiara Huntley MD - 04/25/2024 ECHOCARDIOGRAM BREEZY TREJO : 1955 68 years Study Date: 04/25/2024 12:16:52 PM Gender: F BP: 114/84 mmHg Height: 168.00 cm BSA: 2.00 m? ? ? Weight: 90.00 kg Tech: [facility] Referring MD: BECKI ARANA Site: [facility] Reading Location: [facility] Patient Location: Inpatient. Procedure: 2D, Color Doppler and Spectral Doppler. Indication for study: A-Fib Cardiac Rhythm: Normal sinus and with premature ventricularcontractions.Study quality: Fair. Final Impressions: 1. Normal left ventricular size, mildly increased wall thickness, normalglobal systolic function, calculated EF of 64 %. 2. Right ventricular cavity size is normal, global systolic RV functionis normal. 3. The mitral valve is sclerotic, trace mitral regurgitation. 4. No pericardial effusion. Chamber Sizes and Function Normal left ventricular size, mildly increased wall thickness, normalglobal systolic function, calculated EF of 64 %. No definite restingregional wall motion abnormality seen. Left atrial size is normal. Rightventricular cavity size is normal, global systolic RV function is normal.The right atrium is normal. Right atrial volume index is 9 ml/m? ? ?. Rightatrial area is 9 cm? ? ?. The pulmonary artery is of normal size and origin.The sinus of Valsalva is normal sized. The ascending aorta is normalsized. Valves, RV Pressures and Diastolic Function The aortic valve is normal in structure and trileaflet, no stenosis and noregurgitation. The mitral valve is sclerotic, trace mitral regurgitation.Spectral Doppler shows Grade 1 pattern of LV diastolic filling. Thetricuspid valve is normal in structure. Tricuspid regurgitation isregurgitation is not evident. The pulmonic valve is normal. No pulmonaryregurgitation. Masses, Effusion, Shunts There is no pericardial effusion. The inferior vena cava is normal sized,respiratory size variation greater than 50%. No left to right shunting wasdetected by limited color flow Doppler interrogation of the interatrialseptum. MEASUREMENTS AND CALCULATIONS 2-D Measurements and LV Function: LVID (d) 4.1 cm Planimetered EF 64 % LVID (s) 2.8 cm LV FS% (2D) 30 % IVS (d) 1.3 cm LVOT diameter 2.1 cm LVPW (d) 1.4 cm HR 76 bpm Ao Sinus 3.1 cm LA Vol index 20 ml/m2 LA 3.6 cm RA Vol index 9 ml/m2 RA area 9 cm? ? ? RV Max 4C (d) 2.4 cm Diastology: Mitral Tissue Doppler E Peak 0.5 m/s e', Septum 0.05 m/s A Peak 0.6 m/s e', Lateral 0.10 m/s E/A 0.8 E/e' Average 6.93 DT 179 msec Aortic Valve: Vmax 1.3 m/s KALIE (V) 3.06 cm? ? ? VTI 0.20 m KALIE (I) 2.87 cm? ? ? LVOT V max 1.2 m/s Max PG 7 mmHg LVOT VTI 0.17 m Mean PG 4 mmHg SV 58 ml Dim Index 0.84 SV index 29 ml/m? ? ? CO 4.4 l/min CI 2.2 l/min/m? ? ? Mitral Valve: MVA 4.2 cm? ? ? MV P 1/2 52 msec MV Mean G 1 mmHg MV VTI 0.26 m Tricuspid Valve and estimated PA pressures: TAPSE 1.6 cm Pulmonic Valve: PV AT 81 msec . This study was interpreted by an [facility] accredited facility. CC: HIM (med records) [facility], Med/Surg - IP [facility]. Final Becki Arana MD ECHO ORD * XR MAMMO BILAT SCREEN FFDM (10/04/2016 9:00 AM HEALTH CENTER MANAGER) Anatomical Region Laterality Modality BREASTS, Breast Left, Breast Right Bilateral Mammography Narrative 10/04/2016 1:52 PM HEALTH CENTER MANAGER BILATERAL DIGITAL SCREENING MAMMOGRAM WITH COMPUTER-AIDED DETECTION [...] D.O. Diagnostic Radiologist [facility] [email or web address] NINFA/gurdeep ?? / Bailey Collins FARM IMPLEMENT ENGINE MECHANIC MAMMO * (ABNORMAL) LIPID PANEL W REFLEX MEASURED LDL (09/11/2016 9:26 AM HEALTH CENTER MANAGER) CHOLESTEROL,TOTAL 159 100 - 199 mg/dL 09/11/2016 10:03 AM HEALTH CENTER MANAGER [facility] TRIGLYCERIDES 183(H) <150 mg/dL 09/11/2016 10:03 AM HEALTH CENTER MANAGER [facility] HDL CHOLESTEROL 36(L) >40 mg/dL 6 10:03 AM HEALTH CENTER MANAGER [facility] NON-HDL CHOLESTEROL 123 <145 mg/dl 09/11/2016 10:03 AM HEALTH CENTER MANAGER [facility] CHOL/HDL RATIO 4.42 <4.50 09/11/2016 10:03 AM HEALTH CENTER MANAGER [facility] LDL CHOLESTEROL 86 <=130 mg/dL 09/11/2016 10:03 AM HEALTH CENTER MANAGER [facility] PATIENT STATUS NOT GIVEN 09/11/2016 10:03 AM HEALTH CENTER MANAGER [facility] Blood BLOOD SPECIMEN / Unknown Venipuncture / Unknown 09/11/2016 9:26 AM HEALTH CENTER MANAGER 09/11/2016 9:26 AM HEALTH CENTER MANAGER Bailey Collins NP CHEMISTRY [facility] [address] [place] [id number], * XR DXA BONE DENSITY 2 SITES [...] Comments Code Status Discussion: Discussed Care Teams Regional Environmental Manager Relationship Specialty Start Date End Date Katerine Bashir MD [address] [place] [address] PCP - General Family Practice 12/27/20 Easton Mccormick MD [facility] [address] [place] [id number] Cardiovascular Disease 09/26/16
--- OUTSIDE RECORDS SUMMARY | 2024-05-28 14:50 | XMS_ITS | Encounter Summary ---
Author Organization [facility] Address [address] [place] [address] Care Team Providers Care Food Assembler Commissary Kitchen Name Role Phone Elsewhere, Pcp Primary Care Provider Unavailabl e Reason for Referral * Outpatient (Routine) - Closed Specialty Diagnoses / Procedures Referred By Contac t Referred To Contact Cardiovascular Disease Diagnoses Coronary Artery Disease (Unspecified) Katerine Bashir M.D. [address] [place] [address] [facility] Referral ID Status Reason Start Date Expiration Date Visits Re quested Visits Authorized [id number] Closed 02/10/2019 02/10/2020 3 3 Encounter Details Date Type Department Care Team (Late st Contact Info) Description 02/10/2019 [facility] [address] [place] [address] Katerine Bashir M.D. [address] [place] [address] Coronary Artery Disease (Unspecified) (Primary [...] 06/01/2024 10:00 AM CDT Hospital Encounter [facility] [place] [address] [place] [phone] Prakash Graham M.D. [address] [place] [phone] 06/01/2024 2:50 PM CDT - 06/01/2024 5:47 PM CDT Surgery [facility] [place] [address] [place] [phone] Prakash Graham M.D. [address] [place] [phone] VITRECTOMY, PARS PLANA 25 GAUGE, MEMBRANE PEEL, SILICONE OIL, SCLERAL BUCKLE, ALL ASSOCIATED PROCEDURES RIGHT EYE. 06/02/2024 8:00 AM CDT Office Visit Department of Ophthalmology in [place], [place] [address] [place] [phone] Prakash Graham M.D. [address] [place] [phone] 06/09/2024 9:30 AM CDT Ancillary Procedure Department of Ophthalmology in [place], [place] [address] [place] [phone] Prakash Graham M.D. [address] [place] [phone] 06/09/2024 10:00 AM CDT Office Visit Department of Ophthalmology in [place], [place] [address] [place] [phone] Prakash Graham M.D. [address] [place] [phone] 07/16/2024 8:45 AM CDT Ancillary Procedure Department of Ophthalmology in [place], [place] [address] [place] [phone] Prakash Graham M.D. [address] [place] [phone] 07/16/2024 9:15 AM CDT Ancillary Procedure Department of Ophthalmology in [place], [place] [address] [place] [phone] Prakash Graham M.D. [address] [place] [phone] 07/16/2024 9:30 AM CDT Office Visit Department of Ophthalmology in [place], [place] [address] [place] [phone] Kenya Garza M.D. [address] [place] [phone] 07/16/2024 12:45 PM CDT Office Visit Department of Ophthalmology in [place], [place] [address] [place] [phone] Prakash Graham M.D. [address] [place] [phone] Scheduled Procedures Name Priority Associated Diagnoses Date/Ti [...] documented as of this encounter Care Teams Food Assembler Commissary Kitchen Relationship Specialty Start Date End Date Elsewhere, Pcp PCP - General Internal Medicine 05/29/19 documented as of this encounter
--- NOTE | 2024-05-28 15:30 | CRLHL7_ITS ---
For Patients: As a result of the Century Cures Act, medical imaging exams and procedure reports are released immediately into your electronic medical record. You may view this report before your referring provider. If you have questions, please contact your health care provider. INDICATION: Left-sided mastoiditis. TECHNIQUE: Brain and temporal bone MRI without and with contrast. 20 cc of gadolinium based contrast administered. COMPARISON : Brain MRI from 04/24/2024. FINDINGS: The membranous labyrinths are normal in appearance, with no signal abnormality or malformation. No mass or pathologic enhancement within the internal auditory canals or the cerebellopontine angle cisterns. The cisternal and canalicular segments of the 7th/8th cranial nerve complexes are normal in appearance. The other imaged cranial nerve segments are normal in appearance. There is a mastoid effusion on the left with near complete opacification of mastoid air cells. There is a mastoid effusion on the right with partial opacification of mastoid air cells. No evidence of acute ischemia. No evidence of acute or chronic intracranial blood products. No mass or pathologic intracranial enhancement. Scattered FLAIR hyperintensities within the supratentorial white matter, typical for chronic microvascular ischemic change. No hydrocephalus or extra-axial collections. The pituitary gland, parasellar structures and optic chiasm are normal. All the major intracranial vascular structures demonstrate normal flow-related signal. The orbital contents are normal. No calvarial or skull base marrow replacing process. Left maxillary sinus air-fluid level. Paranasal sinuses are otherwise clear. No extracranial soft tissue findings. IMPRESSION: 1. Normal appearance of the internal auditory pathways on high resolution imaging of the temporal bones. No mass or pathologic enhancement within the internal auditory canals or CPA cisterns. Normal appearance of the 7th/8th cranial nerves. 2. There are bilateral mastoid effusions, greater on the left. These are nonspecific and may be infectious/inflammatory or related to eustachian tube dysfunction. Notably, no nasopharyngeal lesion is identified. 3. No acute ischemia or other acute intracranial pathology. 4. Mild chronic microvascular ischemic changes. Dictated by Demetrius Dunne MD @ 05/30/2024 5:52:07 PM (Electronically Signed)
== END 2024-05-28 14:45 | disposition home or self-care (01) ==
LOC: MRI 14:45
PROVIDERS: PCP Family Medicine; Visit Provider Internal Medicine Hematology & Oncology
DX: H70.92 Unspecified mastoiditis, left ear (principal); I67.83 Posterior reversible encephalopathy syndrome; D80.1 Nonfamilial hypogammaglobulinemia; C83.00 Small cell B-cell lymphoma, unspecified site
CPT/HCPCS: 70553; A9575

== ENCOUNTER 2024-06-02 14:28 | Outpatient (CLI) | payer MEDICARE, SELFPAY ==
--- OUTSIDE RECORDS SUMMARY | 2024-06-02 14:31 | XMS_ITS | Encounter Summary ---
Author Organization [facility] Address [address] [place] [address] Care Team Providers Care Bakery Sales Clerk Name Role Phone Elsewhere, Pcp Primary Care Provider Unavailabl e Encounter Details Date Type Department Care Team (Latest Contact Info) Description 06/02/2024 Clinical Communication Department of Ophthalmology in [place], [place] [address] [place] [phone] Prakash Graham M.D. [address] [place] [phone] Social History Tobacco Use Types Packs/Day Years Used Date Smoking Tobacco: Former Cigarettes 0.7 70.4 0 03/28/1975 - 01/09/2022 Smokeless Tobacco: Never Comments:On again off again Alcohol Use Standard Drinks/Week Comments Yes 5 (1 standard drink = 0.6 oz pur e alcohol) occasional [facility] Utilities Answer Date Recorded In the past 12 months has [employer] gas, oil, or water company threatened to [...] How often do you attend yazidism or jewish serv ices? Never 06/27/2020 Do [...] care, and heating? Somewhat hard 06/27/2020 [facility] - Occupational Stress [...] your living situation today? [facility] 11/05/2023 Education Answer [...] Care Team (Late st Contact Info) Description 06/09/2024 9:30 AM CDT Ancillary Procedure Department of Ophthalmology in [place], [place] [address] [place] [phone] Prakash Graham M.D. [address] [place] [phone] 06/09/2024 10:00 AM CDT Office Visit Department of Ophthalmology in [place], [place] [address] [place] [phone] Prakash Graham M.D. [address] [place] [phone] 07/16/2024 8:45 AM CDT Ancillary Procedure Department of Ophthalmology in [place], [place] [address] [place] [phone] Prakash Graham M.D. [address] [place] [phone] 07/16/2024 9:15 AM CDT Ancillary Procedure Department of Ophthalmology in [place], [place] [address] [place] [phone] Prakash Graham M.D. [address] [place] [phone] 07/16/2024 9:30 AM CDT Office Visit Department of Ophthalmology in [place], [place] [address] [place] [phone] Kenya Garza M.D. [address] [place] [phone] 07/16/2024 12:45 PM CDT Office Visit Department of Ophthalmology in [place], [place] [address] [place] [phone] Prakash Graham M.D. [address] [place] [phone] documented as of this encounter Visit Diagnoses Not on filedocumented in this encounter Care Teams Bakery Sales Clerk Relationship Specialty Start Date End Date Elsewhere, Pcp PCP - General Internal Medicine 05/29/19 documented as of this encounter
--- OUTSIDE RECORDS SUMMARY | 2024-06-02 14:31 | XMS_ITS | Clinical Summary ---
Author Organization [facility] Address [address] [place] [address] Care Team Providers Care Adult Specialist Name Role Phone Elsewhere, Pcp Primary Care Provider Unavailabl e Source Comments Patient records contain information from all sites at [facility]. For routine questions regarding patient records, call [phone] during business hours, M-F 8:00 AM - 5:00 PM Central Time. Record requests for emergency care only can be directed to [phone] at any time.[facility] Allergies Active Allergy Reactions Criticality Noted Date Comments Aller Xt-Descanso [place] Blisters,Itching,Ra sh High 06/21/2020 Methotrexate Other (see [...] a day. 270 tablet 1 4 Active lisinopriL (PRINIVIL,ZESTR IL) 20 mg tablet [...] eye(s) 3 (three) times a day. Active prednisoLONE acetate (Pred Forte) 1 % ophthalmic suspension Administer 1 drop into the right eye 4 (four) times a day for 7 days, THEN 1 drop 3 (three) times a day for 7 days, THEN 1 drop 2 (two) times a day for 7 days, THEN 1 drop daily for 7 days. 10 mL 4 06/30/20 24 Active polymyxin B-trimethoprim (Polytrim) 10,000 unit- 1 mg/mL ophthalmic solution Administer 1 drop into the right eye 4 (four) times a day for 7 days. 10 mL 4 06/09/20 24 Active predniSONE (Deltasone) 20 mg tablet Take 2 tablets (40 mg total) by mouth daily for 14 days. Take the entire dose in the AM with food 28 tablet 4 06/16/20 24 Active difluprednate (DurezoL) 0.05 % ophthalmic emulsion ADMINISTER 1 DROP INTO THE RIGHT EYE 4 (FOUR) TIMES A DAY 5 mL 1 4 Active predniSONE (DELTASONE) 5 mg tablet Take 2 tablets (10 mg total) by mouth daily. Take the entire dose in the AM with food 60 tablet 1 4 06/02/20 24 Discontinued(Re order) difluprednate (DurezoL) 0.05 % ophthalmic emulsion Administer 1 drop into the right eye 2 (two) times a day. Stop prednisolone when you start difluprednate 5 mL 3 4 06/02/20 24 Discontinued polymyxin B-trimethoprim (Polytrim) 10,000 unit- 1 mg/mL ophthalmic solution Administer 1 drop into the right eye 4 (four) times a day for 7 days. 10 mL 4 06/02/20 24 Discontinued difluprednate (DurezoL) 0.05 % ophthalmic emulsion Administer 1 drop into the right eye 4 (four) times a day. 5 mL 1 4 06/02/20 24 Discontinued Hospital, Clinic, or Other Facility [...] Encounters Date Type Department Care Team Description 06/02/2024 8:00 AM CDT Office Visit Department of Ophthalmology in [place], [place] [address] [place] [address] Prakash Graham M.D. Necrosis Retinal Acute Right (Primary Dx); Proliferative Vitreoretinopathy Right 06/02/2024 Clinical Communication Department of Ophthalmology in [place], [place] [address] [place] [phone] Prakash Graham M.D. 06/02/2024 Refill Department of Ophthalmology in [place], [place] [address] [place] [phone] Prakash Graham M.D. Med Change Request 06/01/2024 3:08 PM CDT Anesthesia Event [facility] [place] [phone] Gaye Giraldo M.D. Easton Duran APRN, [facility] 06/01/2024 2:29 PM CDT - 06/01/2024 5:26 PM CDT Surgery RST [facility] OR [address] [place] [phone] Prakash Graham M.D. VITRECTOMY, PARS PLANA 25 GAUGE, MEMBRANE PEEL, SILICONE OIL 06/01/2024 1:25 PM CDT - 06/01/2024 7:27 PM CDT Hospital Encounter RST [facility] OR [address] [place] [phone] Prakash Graham M.D. Discharge Disposition: Home or Self Care 05/26/2024 9:45 AM CDT Office Visit Department of Ophthalmology in [place], [place] [address] [place] [phone] Prakash Graham M.D. Necrosis Retinal Acute Right (Primary Dx) 05/20/2024 Clinical Communication Department of Ophthalmology in [place], [place] [address] [place] [phone] Renaldo Hawk M.D. 05/07/2024 2:00 PM CDT Office Visit Department of Ophthalmology in [place], [place] [address] [place] [phone] Renaldo Hawk M.D. Necrosis Retinal Acute Right (Primary Dx); Proliferative Vitreoretinopathy Right; Panuveitis Right; Primary Hypotony Right Eye; Posterior Reversible Encephalopathy Syndrome 05/04/2024 Clinical Communication Department of Ophthalmology in [place], [place] [address] [place] [phone] Kenya Garza M.D. Follow Up Visit from ER 04/27/2024 Clinical Communication Department of Ophthalmology in [place], [place] [address] [place] [phone] Prakash Graham M.D. Surgery today 04/2704/16/2024 2:30 PM CDT Office Visit Department of Ophthalmology in [place], [place] [address] [place] [phone] Kenya Garza M.D. Necrosis Retinal Acute Right (Primary Dx); Proliferative Vitreoretinopathy Right 04/16/2024 2:00 PM CDT Ancillary Procedure Department of Ophthalmology in [place], [place] [address] [place] [phone] Kenya Garza M.D. Necrosis Retinal Acute Right 04/16/2024 1:00 PM CDT Ancillary Procedure Department of Ophthalmology in [place], [place] [address] [place] [address] Kenya Garza M.D. Necrosis Retinal Acute Right 04/16/2024 12:05 AM CDT Ancillary Procedure Department of Ophthalmology 04/16/2024 Ancillary Procedure Department of Ophthalmology 04/14/2024 2:30 PM CDT Office Visit Department of Ophthalmology in [place], [place] [address] [place] [phone] Prakash Graham M.D. Panuveitis Right (Primary Dx); Proliferative Vitreoretinopathy Right 04/14/2024 2:10 PM CDT Ancillary Procedure Department of Ophthalmology in [place], [place] [address] [place] [phone] Prakash Graham M.D. Panuveitis Right; Necrosis Retinal Acute Right 04/14/2024 11:00 AM CDT Comprehensive Visit Preoperative Evaluation Center in [place], [place] [address] [place] [phone] Prakash Graham M.D. Warner, Paul A, M.D. Panuveitis Right; Necrosis Retinal Acute Right 04/14/2024 Ancillary Procedure Department of Ophthalmology 04/10/2024 Refill Department of Ophthalmology in [place], [place] [address] [place] [phone] Kenya Garza M.D. Med Refill 04/01/2024 Refill Department of Ophthalmology in [place], [place] [address] [place] [phone] Raffi Boyd M.D. Med Refill 03/16/2024 Orders Only Department of Ophthalmology in [place], [place] [address] [place] [phone] Shahnaz Amato CWhitneyODixie Necrosis Retinal Acute Right (Primary Dx) 03/16/2024 Orders Only Department of Ophthalmology in [place], [place] [address] [place] [phone] Jean Claude Newsome C.ODixie Panuveitis Right (Primary Dx); Necrosis Retinal Acute Right 03/14/2024 Orders Only Department of Ophthalmology in [place], [place] [address] [place] [phone] Raffi Boyd M.D. 03/13/2024 2:00 PM CDT Procedure visit Department of Ophthalmology in [address] [phone] Prakash Graham M.D. Primary Hypotony Right Eye (Primary Dx); Panuveitis Right; Necrosis Retinal Acute Right 03/13/2024 1:00 PM CDT Office Visit Department of Ophthalmology in [place], [place] [address] [place] [phone] Prakash Graham M.D. Panuveitis Right (Primary Dx); Necrosis Retinal Acute Right 03/13/2024 12:00 PM CDT Ancillary Procedure Department of Ophthalmology in [place], [place] [address] [place] [phone] Kenya Garza M.D. Panuveitis Right; Necrosis Retinal Acute Right 03/13/2024 11:30 AM CDT Office Visit Department of Ophthalmology in [place], [place] [address] [place] [address] Kenya Garza M.D. Necrosis Retinal Acute Right (Primary Dx); Panuveitis Right 03/13/2024 8:00 AM CDT Ancillary Procedure Department of Ophthalmology in [place], [place] [address] [place] [address] Kenya Garza M.D. Panuveitis Right; Necrosis Retinal Acute Right 03/13/2024 12:10 AM CDT Ancillary Procedure Department of Ophthalmology 03/13/2024 12:05 AM CDT Ancillary Procedure Department of Ophthalmology 03/13/2024 Orders Only Department of Ophthalmology in [place], [place] [address] [place] [address] Jean Claude Newsome C.O.A. Necrosis Retinal Acute Right (Primary Dx) 03/13/2024 Ancillary Procedure Department of Ophthalmology 03/11/2024 Clinical Communication Department of Ophthalmology in [place], [place] [address] [place] [address] Kenya Garza M.D. 03/10/2024 Clinical Communication Department of Ophthalmology in [place], [place] [address] [place] [address] Kenya Garza M.D. from Last 3 Months Family History Medical History Relation Name Comments Lymphoma Brothhilda Thibodeaux 2018 Prostate cancer Father Podhora 2000 Stroke Father Rosshora Coronary artery disease Mother Afia Thibodeaux Not [...] Recorded In the past 12 months has [employer], gas, oil, or water company threatened [...] How often do you attend gnosticism or muslim serv ices? Never 06/27/2020 Do [...] heating? Somewhat hard 06/27/2020 [facility] [place] of Occupat ional Health - Occupational Stress [...] your living situation today? [facility] 11/05/2023 Education Answer Date [...] Sign Reading Time Taken Comments Blood Pressure 142/81 06/01/2024 7:07 PM CDT Pulse 83 06/01/2024 7:07 PM CDT Temperature 36.6 ??C (97.9 ??F) 06/01/2024 7:13 PM CD T Respiratory Rate 15 06/01/2024 7:07 PM CDT Oxygen Saturation 96% 06/01/2024 7:07 PM CDT Inhaled Oxygen Concentration - - Weight 92 kg (202 lb 13.2 oz) 06/01/2024 2:07 PM CDT Height 170.2 cm (5' 7.01) 06/01/2024 2:07 PM CD T Body Mass Index 31.76 06/01/2024 2:07 PM CDT Plan of Treatment Upcoming Encounters Date Type Department Care Team (Late st Contact Info) Description 06/09/2024 9:30 AM CDT Ancillary Procedure Department of Ophthalmology in [place], [place] [address] [place] [address] Prakash Graham M.D. [address] [place] [phone] 06/09/2024 10:00 AM CDT Office Visit Department of Ophthalmology in [place], [place] [address] [place] [phone] Prakash Graham M.D. [address] [place] [phone] 07/16/2024 8:45 AM CDT Ancillary Procedure Department of Ophthalmology in [place], [place] [address] [place] [phone] Prakash Graham M.D. [address] [place] [phone] 07/16/2024 9:15 AM CDT Ancillary Procedure Department of Ophthalmology in [place], [place] [address] [place] [phone] Prakash Graham M.D. [address] [place] [phone] 07/16/2024 9:30 AM CDT Office Visit Department of Ophthalmology in [place], [place] [address] [place] [phone] Kenya Garza M.D. [address] [place] [phone] 07/16/2024 12:45 PM CDT Office Visit Department of Ophthalmology in [place], [place] [address] [place] [phone] Prakash Graham M.D. [address] [place] [phone] Health Maintenance Due Date Last Done Comments Bone Density Scan (Osteoporosis Screen) 1957 CT Colonography 1957 Colonoscopy 1957 FIT 1957 Hepatitis C Screening 1957 Lipid (Cholesterol) Screening 1957 Mammogram 1957 Lung Cancer Screening 03/31/2021 03/31/2020 COVID-19 Vaccine ( season) 2023 07/18/2021, 02/14/2021, 01/24/2021 Depression Screening (Annual PHQ-2) 10/28/2023 Office Visit for Blood Pressure Check / Re-check 07/15/2024 04/14/2024 Influenza Vaccine (#1) 2024 , 07/16/2020, 08/14/2019, Additional history exists Creatinine Level (Kidney Function Test) 01/12/2025 01/13/2024, 01/12/2024, 01/11/2024, Additional history exists Sodium Level 01/12/2025 01/13/2024, 12/26, 01/11/2024, Additional history exists Potassium Level 01/13/2025 01/14/2024, 12/26, 01/12/2024, Additional history exists Cologuard 04/05/2025 04/05/2022 Colorectal Cancer Screening 04/05/2025 Fasting Glucose for Diabetes Screening 06/01/2027 06/01/2024, 01/13/2024, 01/12/2024, Additional history exists DTaP,Tdap,and Td Vaccines (3 - Td or Tdap) 06/24/2028 06/24/2018, 03/08/2009 Cervical Cancer Screening Discontinued 08/14/2019 Zoster Vaccines Completed 02/23/2022, 07/04/2021 Pneumococcal vaccine (65+ years) Completed 01/23/2023, 06/24/2018 Fall Risk Screen (Annual) Completed 06/01/2024 HPV Vaccines Aged Out No longer eligi ble based on patient's age to complete this topic Medical Devices Implanted Type Area Wellness Instructor Device Identifier Shelf Expiration Date Model / Serial / Lot Slv Sclr Rnd 1x2.1x30 - [id number] Implanted:Qty : 1 on 06/01/2024 by Prakash Graham M.D. at [facility] Ocular (Eye) Implant Right: Eye [employer] 11/27/2030 [id number] / / [id number] Band Implanted:Qty : 1 on 06/01/2024 by Prakash Graham M.D. at [facility] Ocular (Eye) Implant Right: Eye ZEISS [id number] / / [id number] Stent Other Stent Other Chest Description:Has stent but un sure of placement Procedures Procedure Name Priority Date/Time Associated Diagnosis Comments ADULT OXYGEN THERAPY Routine 06/01/2024 6:43 PM CDT ADULT OXYGEN THERAPY Routine 06/01/2024 6:43 PM CDT GLUCOSE POCT, B Routine 06/01/2024 6:36 PM CDT LDA ANE NON-SURGICAL AIRWAY Routine 06/01/2024 3:17 PM CDT ULTRASOUND BIOMICROSCOPY - OD - RIGHT Routine [...] METABOLIC PANEL, S/P Routine 11/05/2023 4:03 PM ANIMAL RIDE ATTENDANT Uveitis CT CHEST WITH IV CONTRAST RAD - Routine (most inpatients and all outpatients) 03/31/2020 8:50 AM CDT [facility] Pulmonary from Last 3 Months or Most Recently Relevant to Health Maintenance Results * (ABNORMAL) Glucose, POCT (06/01/2024 6:36 PM CDT) Glucose, POCT, B 207(H) 70 - 140 mg/dL 06/01/2024 6:46 PM CDT PCLX Site Capillary 06/01/2024 6:46 PM CDT PCLX Blood 06/01/2024 6:36 PM CDT 06/01/2024 6:47 PM CDT Unknown Provider LAB POCT ORDERABLES- MANUAL POC [facility] [address] [place] [address], [facility] POC [address] [place] [address] * LDA ANE NON-SURGICAL AIRWAY (06/01/2024 3:17 PM CDT) Narrative Easton Duran APRN, CRNA - 06/01/2024 3:17 PM CDT Easton Duran APRN, CRNA ? 06/01/2024 ??3:37 PM Airway Date/Time: 06/01/2024 3:17 PM Performed by: Easton Duran APRN, CRNA Authorized by: Bernardino Carbajal M.D. ?? Patient location during procedure: OR / Procedure Area PROCEDURE DETAILS: Mask difficulty assessment: easy mask Final airway type: supraglottic airway Device size: 4 Number of attempt to successful placement: 1 Supraglottic device: LMA ??supreme ?? Supraglottic device size: 4 ?? Airway confirmation: bilateral breath sounds, positive ETCO2 and bilateral chest rise Other previous techniques attempted: none PRE PROCEDURE DETAILS: Pre evaluation for airway management: procedure Urgency: elective Preop assessment of probable difficulty: no difficulty anticipated Preoxygenation: bag valve mask SEDATION / ANESTHESIA Anesthesia method: anesthesia POST PROCEDURE DETAILS: ? Procedure outcome: successful ?? Notable Events: no complications Bernardino Carbajal M.D. ANESTHESIA ORDERA BLES * Ultrasound Biomicroscopy (UBM) - OD - Right Eye (04/16/2024 3:09 PM CDT) Narrative [facility] NON[facility]IM[facility] ORDERS - 04/16/2024 4:09 PM CDT 04/16/2024 B-Scan Right Eye: dense vitreous opacities, probable posterior vitreous detachment, vitreous membranes possibly extending to disc, cannot rule out choroidal detachment, thickened fundus appearance. Dilated UBM Right Eye: minimal opacities in anterior chamber, ciliary body detachment noted, possible ciliochoroidal effusion. [facility] Kenya Garza M.D. [facility] ULTRASOUND Performing Organization Address [facility] de Phone Number [facility] NON-IMAGING ORDERS * B-Scan Ultrasound - OD - Right Eye (04/16/2024 3:09 PM CDT) Narrative OPH[facility] NON-IMAGING ORDERS - 04/16/2024 4:09 PM CDT 04/16/2024 B-Scan Right Eye: dense vitreous opacities, probable posterior vitreous detachment, vitreous membranes possibly extending to disc, cannot rule out choroidal detachment, thickened fundus appearance. Dilated UBM Right Eye: minimal opacities in anterior chamber, ciliary body detachment noted, possible ciliochoroidal effusion. [facility] Kenya Garza M.D. [facility] ULTRASOUND Performing Organization Address [facility] Co de Phone Number [...] that produced images. Provider Not In System IM NON RAD IMAGI NG PROCEDURES Performing Organization Address [facility] Co de Phone Number IIMS NA * Optical Coherence Tomography - Macula/Retina - OU - Both Eyes (04/14/2024 2:22 PM CDT) Narrative OPHTHALMOLOGY IMAGING EXAM - 04/14/2024 4:40 PM CDT Right Eye OCT device used was Spectralis . Left Eye OCT device used was Spectralis . Notes See note from visit on 04/14/2024. Prakash Graham M.D. OPHTH TOMOGRAPHY Performing Organization Address [facility] de Phone Number OPHTHALMOLOGY IMAGING EXAM * PET skull to mid thigh-Outside NM Pet (03/19/2024 6:30 PM CDT) 03/19/2024 6:30 PM CDT Narrative IIIL - 03/19/2024 7:59 PM CDT This order has been created and auto-finalized to support the import of outside images. If available, original interpretation can be found on the Media Tab in Chart Review, in Document Viewer, or as an image in QREADS. If a re-interpretation or overread is required please follow defined workflow. ?? Provider Not In System [facility] [place] PROCEDURES Performing Organization Address [facility] Co de Phone Number IIMS NA [...] OPH CLINIC PROCED URES Performing Organization Address [facility] Co de Phone Number [...] possible ciliochoroidal effusion. JULIAN Kenya Garza M.D. [facility] ULTRASOUND Performing Organization Address [facility] de Phone Number [facility] NON-IMAGING ORDERS * B-Scan Ultrasound - OD [...] possible ciliochoroidal effusion. JULIAN Kenya Garza M.D. [facility] ULTRASOUND Performing Organization Address [facility] Co de Phone Number [facility] NON-IMAGING ORDERS * (ABNORMAL) Comprehensive Metabolic Panel (11/05/2023 4:03 PM ANIMAL RIDE ATTENDANT) [facility] Potassium, S 4.4 3.6 - 5.2 mmol/L 11/05/2023 5:04 PM ANIMAL RIDE ATTENDANT DTL Sodium, S 139 135 - 145 mmol/L 11/05/2023 5:04 PM ANIMAL RIDE ATTENDANT DTL Chloride, S 101 98 - 107 mmol/L 11/05/2023 5:04 PM ANIMAL RIDE ATTENDANT DTL Bicarbonate, S 27 22 - 29 mmol/L 11/05/2023 5:04 PM ANIMAL RIDE ATTENDANT DTL Anion Gap 11 7 - 15 11/05/2023 5:04 PM ANIMAL RIDE ATTENDANT DTL BUN (Blood Urea Nitrogen), S 17 6 - 21 mg/dL 11/05/2023 5:04 PM ANIMAL RIDE ATTENDANT DTL Creatinine 0.76 0.59 - 1.04 mg/dL 11/05/2023 5:04 PM ANIMAL RIDE ATTENDANT DTL Estimated GFR (eGFR) 86 >=60 mL/min/BS A 11/05/2023 5:04 PM ANIMAL RIDE ATTENDANT DTL Comment: Estimated GFR calculated using the 2020 CKD_EPI creatinine equation. Calcium, Total, S 10.1 8.8 - 10.2 mg/dL 11/05/2023 5:20 PM ANIMAL RIDE ATTENDANT DTL Glucose, S 104 70 - 140 mg/dL 11/05/2023 5:04 PM ANIMAL RIDE ATTENDANT DTL Protein, Total, S 6.1(L) 6.3 - 7.9 g/dL 11/05/2023 5:04 PM ANIMAL RIDE ATTENDANT DTL Albumin, S 4.3 3.5 - 5.0 g/dL 11/05/2023 5:04 PM ANIMAL RIDE ATTENDANT DTL Aspartate Aminotransferase (AST), S 16 8 - 43 U/L 11/05/2023 5:04 PM ANIMAL RIDE ATTENDANT DTL Alkaline Phosphatase, S 81 35 - 104 U/L 11/05/2023 5:04 PM ANIMAL RIDE ATTENDANT DTL Alanine Aminotransferase (ALT), S 16 7 - 45 U/L 11/05/2023 5:04 PM ANIMAL RIDE ATTENDANT DTL Bilirubin, Total, S 1.2 0.0 - 1.2 mg/dL 11/05/2023 5:04 PM ANIMAL RIDE ATTENDANT DTL Blood (Blood, Venous) 11/05/2023 4:03 PM ANIMAL RIDE ATTENDANT 11/05/2023 4:41 PM ANIMAL RIDE ATTENDANT Kenya Garza M.D. LAB BLOOD ADD-ON [facility] [place] [address] [place] [address], [place] DTL [facility] [address] [place] [address] * CT Chest with IV Contrast (03/31/2020 [...] Recently Relevant to Health Maintenance Care Teams Adult Specialist Relationship Specialty Start Date End Date Elsewhere, Pcp PCP - General Internal Medicine 05/29/19
--- OUTSIDE RECORDS SUMMARY | 2024-06-02 14:31 | XMS_ITS | Referral Summary ---
Author Organization [facility] Address [address] [place] [address] Care Team Providers Care Business Control Manager Name Role Phone Elsewhere, Pcp Primary Care Provider Unavailabl e Source Comments Patient records contain information from all sites at [facility]. For routine questions regarding patient records, call [phone] during business hours, M-F 8:00 AM - 5:00 PM Central Time. Record requests for emergency care only can be directed to [phone] at any time.[facility] Encounters Date Type Department Care Team Description 06/02/2024 Clinical Communication Department of Ophthalmology in [place], [place] [address] [place] [phone] Prakash Graham M.D. 06/02/2024 Refill Department of Ophthalmology in [place], [place] [address] [place] [phone] Prakash Graham M.D. Med Change Request 06/02/2024 8:00 AM CDT Office Visit Department of Ophthalmology in [place], [place] [address] [place] [phone] Prakash Graham M.D. Necrosis Retinal Acute Right (Primary Dx); Proliferative Vitreoretinopathy Right 06/01/2024 3:08 PM CDT Anesthesia Event [facility] [address] [place] [phone] Gaye Giraldo M.D. Easton Duran APRN, LEAVE SPECIALIST 06/01/2024 2:29 PM CDT - 06/01/2024 5:26 PM CDT Surgery [facility] [address] [place] [phone] Prakash Graham M.D. VITRECTOMY, PARS PLANA 25 GAUGE, MEMBRANE PEEL, SILICONE OIL 06/01/2024 1:25 PM CDT - 06/01/2024 7:27 PM CDT Hospital Encounter [facility] [place] [address] [place] [phone] Prakash Graham M.D. Discharge Disposition: Home or Self Care 05/26/2024 9:45 AM CDT Office Visit Department of Ophthalmology in [place], [place] [address] [place] [phone] Prakash Graham M.D. Necrosis Retinal Acute Right (Primary Dx) 05/20/2024 Clinical Communication Department of Ophthalmology in [place], [place] [address] [place] [phone] Renaldo Hawk M.D. 05/07/2024 2:00 PM CDT Office Visit Department of Ophthalmology in [place], [place] [address] [place] [phone] Renaldo Hawk M.D. Necrosis Retinal Acute Right (Primary Dx); Proliferative Vitreoretinopathy Right; Panuveitis Right; Primary Hypotony Right Eye; Posterior Reversible Encephalopathy Syndrome 05/04/2024 Clinical Communication Department of Ophthalmology in [place], [place] [address] [place] [phone] Kenya Garza M.D. Follow Up Visit from ER 04/27/2024 Clinical Communication Department of Ophthalmology in [place], [place] [address] [place] [phone] Prakash Graham M.D. Surgery today 04/2704/16/2024 12:05 AM CDT Ancillary Procedure Department of Ophthalmology 04/16/2024 Ancillary Procedure Department of Ophthalmology 04/16/2024 2:30 PM CDT Office Visit Department of Ophthalmology in [place], [place] [address] [place] [phone] Kenya Garza M.D. Necrosis Retinal Acute Right (Primary Dx); Proliferative Vitreoretinopathy Right 04/16/2024 2:00 PM CDT Ancillary Procedure Department of Ophthalmology in [place], [place] [address] [place] [phone] Kenya Garza M.D. Necrosis Retinal Acute Right 04/16/2024 1:00 PM CDT Ancillary Procedure Department of Ophthalmology in [place], [place] [address] [place] [phone] Kenya Garza M.D. Necrosis Retinal Acute Right 04/14/2024 Ancillary Procedure Department of Ophthalmology 04/14/2024 2:30 PM CDT Office Visit Department of Ophthalmology in [place], [place] [address] [place] [phone] Prakash Graham M.D. Panuveitis Right (Primary Dx); Proliferative Vitreoretinopathy Right 04/14/2024 2:10 PM CDT Ancillary Procedure Department of Ophthalmology in [place], [place] [address] [place] [phone] Prakash Graham M.D. Panuveitis Right; Necrosis Retinal Acute Right 04/14/2024 11:00 AM CDT Comprehensive Visit Preoperative Evaluation Center in [place], [place] [address] [place] [phone] Prakash Graham M.D. Warner, Paul A, M.D. Panuveitis Right; Necrosis Retinal Acute Right 04/10/2024 Refill Department of Ophthalmology in [place], [place] [address] [place] [phone] Kenya Garza M.D. Med Refill 04/01/2024 Refill Department of Ophthalmology in [place], [place] [address] [place] [phone] Raffi Boyd M.D. Med Refill 03/16/2024 Orders Only Department of Ophthalmology in [place], [place] [address] [place] [phone] Shahnaz Amato C.O.A. Necrosis Retinal Acute Right (Primary Dx) 03/16/2024 Orders Only Department of Ophthalmology in [place], [place] [address] [place] [phone] Jean Claude Newsome C.O.AWhitney Panuveitis Right (Primary Dx); Necrosis Retinal Acute Right 03/14/2024 Orders Only Department of Ophthalmology in [place], [place] [address] [place] [phone] Raffi Boyd M.D. 03/13/2024 2:00 PM CDT Procedure visit Department of Ophthalmology in [place], [place] [address] [place] [phone] Prakash Graham M.D. Primary Hypotony Right Eye (Primary Dx); Panuveitis Right; Necrosis Retinal Acute Right 03/13/2024 1:00 PM CDT Office Visit Department of Ophthalmology in [place], [place] [address] [place] [phone] Prakash Graham M.D. Panuveitis Right (Primary Dx); Necrosis Retinal Acute Right 03/13/2024 Orders Only Department of Ophthalmology in [place], [place] [address] [place] [phone] Jean Claude Newsome C.O.A. Necrosis Retinal Acute Right (Primary Dx) 03/13/2024 12:10 AM CDT Ancillary Procedure Department of Ophthalmology 03/13/2024 12:05 AM CDT Ancillary Procedure Department of Ophthalmology 03/13/2024 Ancillary Procedure Department of Ophthalmology 03/13/2024 12:00 PM CDT Ancillary Procedure Department of Ophthalmology in [place], [place] [address] [place] [phone] Kenya Garza M.D. Panuveitis Right; Necrosis Retinal Acute Right 03/13/2024 11:30 AM CDT Office Visit Department of Ophthalmology in [place], [place] [address] [place] [phone] Kenya Garza M.D. Necrosis Retinal Acute Right (Primary Dx); Panuveitis Right 03/13/2024 8:00 AM CDT Ancillary Procedure Department of Ophthalmology in [place], [place] [address] [place] [phone] Kenya Garza M.D. Panuveitis Right; Necrosis Retinal Acute Right 03/11/2024 Clinical Communication Department of Ophthalmology in [place], [place] [address] [place] [phone] Kenya Garza M.D. 03/10/2024 Clinical Communication Department of Ophthalmology in [place], [place] [address] [place] [phone] Kenya Garza M.D. from Last 3 Months Allergies Active Allergy Reactions Criticality Noted Date Comments Aller Xt-Woolrich Pollen-Esperance Blisters,Itching,Ra sh High 06/21/2020 Methotrexate Other (see [...] In the past 12 months has th [employer] electric, gas, oil, or water company threatened [...] How often do you attend sabianist or confucianism serv ices? Never 06/27/2020 Do [...] 06/27/2020 [facility] - Occupational [...] your living situation today? I have a [facility] place to live 11/05/2023 Education Answer [...] CDT Ancillary Procedure Department of Ophthalmology in [place], [place] [address] [place] [phone] Prakash Graham M.D. [address] [place] [phone] 06/09/2024 10:00 AM CDT Office Visit Department of Ophthalmology in [place], [place] [address] [place] [phone] Prakash Graham M.D. [address] [place] [phone] 07/16/2024 8:45 AM CDT Ancillary Procedure Department of Ophthalmology in [place], [place] [address] [place] [phone] Prakash Graham M.D. [address] [place] [phone] 07/16/2024 9:15 AM CDT Ancillary Procedure Department of Ophthalmology in [place], [place] [address] [place] [phone] Prakash Graham M.D. [address] [place] [phone] 07/16/2024 9:30 AM CDT Office Visit Department of Ophthalmology in [place], [place] [address] [place] [phone] Kenya Garza M.D. [address] [place] [phone] 07/16/2024 12:45 PM CDT Office Visit Department of Ophthalmology in [address] [phone] Prakash Graham M.D. [address] [place] [phone] Medical Devices Implanted Type Area Press Offbearer Device Identifier Shelf Expiration Date Model / Serial / Lot Slv Sclr Rnd 1x2.1x30 - [id number] Implanted:Qty : 1 on 06/01/2024 by Prakash Graham M.D. at [facility] Ocular (Eye) Implant Right: Eye [employer] 11/27/2030 [id number] / [id number] Band Implanted:Qty : 1 on 06/01/2024 by Prakash Graham M.D. at [facility] Ocular (Eye) Implant Right: Eye ZEISS [id number] / / [id number] Stent Other Stent Other Chest Description:Has stent [...] METABOLIC PANEL, S/P Routine 11/05/2023 4:03 PM FOUNDER AND CHIEF TECHNICAL OFFICER Uveitis CT CHEST WITH IV CONTRAST RAD [...] Unknown Provider LAB POCT ORDERABLES- MANUAL POC [facility] [address] [place] [address], [facility] POC [address] [place] [address] * LDA ANE NON-SURGICAL AIRWAY (06/01/2024 3:17 [...] ciliary body detachment noted, possible ciliochoroidal effusion. [facility] Kenya Garza M.D. [facility] ULTRASOUND Performing Organization Address [facility] de Phone Number OPHTHALMOLGY NON-IMAGING [...] ciliary body detachment noted, possible ciliochoroidal effusion. [facility] Kenya Garza M.D. [facility] ULTRASOUND Performing Organization Address [facility] Co de Phone Number OPHTHALMOL NON-IMAGING ORDERS * Eyes [facility]BM-Ophthalmology Image [...] that produced images. Provider Not In System [facility] NON RAD IMAGI NG PROCEDURES Performing Organization Address [facility] de Phone Number IIMS NA * Optical Coherence Tomography - Macula/Retina - OU - Both Eyes (04/14/2024 2:22 PM CDT) Narrative OPHTHALMOLOGY IMAGING EXAM - 04/14/2024 4:40 PM CDT Right Eye OCT device used was Spectralis . Left Eye OCT device used was Spectralis . Notes See note from visit on 04/14/2024. Prakash Graham M.D. OPHTH TOMOGRAPHY Performing Organization Address [facility] de Phone Number OPHTHALMOLOGY IMAGING EXAM * PET skull to mid thigh-Outside NM Pet (03/19/2024 6:30 PM CDT) 03/19/2024 6:30 PM CDT Narrative IIAK - 03/19/2024 7:59 PM CDT This order has been created and auto-finalized to support the import of outside images. If available, original interpretation can be found on the Media Tab in Chart Review, in Document Viewer, or as an image in QREADS. If a re-interpretation or overread is required please follow defined workflow. ?? Provider Not In System [facility] NM PROCEDURES Performing Organization Address [facility] de Phone Number IIMS NA [...] 9 o'clock right eye Prakash Graham M.D. [facility] CLINIC PROCED URES Performing Organization Address [facility] de Phone Number OPHTHALMOLGY NON-IMAGING [...] possible ciliochoroidal effusion. ZK Kenya Garza M.D. [facility] ULTRASOUND Performing Organization Address [facility] de Phone [facility] * B-Scan Ultrasound - [...] possible ciliochoroidal effusion. ZK Kenya Garza M.D. [facility] ULTRASOUND Performing Organization Address [facility] de Phone Number [facility] NON-[facility] ORDERS * (ABNORMAL) Comprehensive Metabolic Panel (11/05/2023 4:03 PM FOUNDER AND CHIEF TECHNICAL OFFICER) Potassium, S 4.4 3.6 - 5.2 mmol/L 11/05/2023 5:04 PM FOUNDER AND CHIEF TECHNICAL OFFICER DTL Sodium, S 139 135 - 145 mmol/L 11/05/2023 5:04 PM FOUNDER AND CHIEF TECHNICAL OFFICER DTL Chloride, S 101 98 - 107 mmol/L 11/05/2023 5:04 PM FOUNDER AND CHIEF TECHNICAL OFFICER DTL Bicarbonate, S 27 22 - 29 mmol/L 11/05/2023 5:04 PM FOUNDER AND CHIEF TECHNICAL OFFICER DTL Anion Gap 11 7 - 15 11/05/2023 5:04 PM FOUNDER AND CHIEF TECHNICAL OFFICER DTL BUN (Blood Urea Nitrogen), S 17 6 - 21 mg/dL 11/05/2023 5:04 PM FOUNDER AND CHIEF TECHNICAL OFFICER DTL Creatinine 0.76 0.59 - 1.04 mg/dL 11/05/2023 5:04 PM FOUNDER AND CHIEF TECHNICAL OFFICER DTL Estimated GFR (eGFR) 86 >=60 mL/min/BS A 11/05/2023 5:04 PM FOUNDER AND CHIEF TECHNICAL OFFICER DTL Comment: Estimated GFR calculated using the 2020 CKD_EPI creatinine equation. Calcium, Total, S 10.1 8.8 - 10.2 mg/dL 11/05/2023 5:20 PM FOUNDER AND CHIEF TECHNICAL OFFICER DTL Glucose, S 104 70 - 140 mg/dL 11/05/2023 5:04 PM FOUNDER AND CHIEF TECHNICAL OFFICER DTL Protein, Total, S 6.1(L) 6.3 - 7.9 g/dL 11/05/2023 5:04 PM FOUNDER AND CHIEF TECHNICAL OFFICER DTL Albumin, S 4.3 3.5 - 5.0 g/dL 11/05/2023 5:04 PM FOUNDER AND CHIEF TECHNICAL OFFICER DTL Aspartate Aminotransferase (AST), S 16 8 - 43 U/L 11/05/2023 5:04 PM FOUNDER AND CHIEF TECHNICAL OFFICER DTL Alkaline Phosphatase, S 81 35 - 104 U/L 11/05/2023 5:04 PM FOUNDER AND CHIEF TECHNICAL OFFICER DTL Alanine Aminotransferase (ALT), S 16 7 - 45 U/L 11/05/2023 5:04 PM FOUNDER AND CHIEF TECHNICAL OFFICER DTL Bilirubin, Total, S 1.2 0.0 - 1.2 mg/dL 11/05/2023 5:04 PM FOUNDER AND CHIEF TECHNICAL OFFICER DTL Blood (Blood, Venous) 11/05/2023 4:03 PM FOUNDER AND CHIEF TECHNICAL OFFICER 11/05/2023 4:41 PM FOUNDER AND CHIEF TECHNICAL OFFICER Kenya Garza M.D. LAB BLOOD ADD-ON [place] [address] [place], [place] [address] [address] [place] [address] * CT Chest with IV Contrast (03/31/2020 [...] Recently Relevant to Health Maintenance Care Teams Business Control Manager Relationship Specialty Start Date End Date Elsewhere, Pcp PCP - General Internal Medicine 05/29/19
--- OUTSIDE RECORDS SUMMARY | 2024-06-02 14:31 | XMS_ITS | Encounter Summary ---
Author Organization [facility] Address [address] [place] [address] Care Team Providers Care Sales Associate Cashier Name Role Phone Elsewhere, Pcp Primary Care Provider Unavailabl e Reason for Visit * Reason Comments Med Change Request Encounter Details Date Type Department Care Team (Late st Contact Info) Description 06/02/2024 Refill Department of Ophthalmology in [place], [place] [address] [place] [phone] Prakash Graham M.D. [address] [place] [phone] Med Change Request Social History Tobacco Use Types Packs/Day Years Used Date Smoking Tobacco: Former Cigarettes 0.7 70.4 0 03/28/1975 - 01/09/2022 Smokeless Tobacco: Never Comments:On again off again Alcohol Use Standard Drinks/Week Comments Yes 5 (1 standard drink = 0.6 oz pur e alcohol) occasional [facility] Utilities Answer Date Recorded In the past 12 months has [employer], gas, oil, or water [employer] threatened to shut off services in your home? No 11/05/2023 Social Connection and Isolation Panel [NHANES] A nswer Date Recorded In a typical week, how many times do you talk on the phone with family, friends, or neighbors? Once a week 06/27/2020 How often do you get together with friends or re latives? Never 06/27/2020 How often do you attend rastafari or sikhism serv ices? Never 06/27/2020 Do [...] hard 06/27/2020 [facility] [...] CDT Ancillary Procedure Department of Ophthalmology in [place], [place] [address] [place] [phone] Prakash Graham M.D. [address] [place] [phone] 06/09/2024 10:00 AM CDT Office Visit Department of Ophthalmology in [place], [place] [address] [place] [phone] Prakash Graham M.D. [address] [place] [phone] 07/16/2024 8:45 AM CDT Ancillary Procedure Department of Ophthalmology in [place], [place] [address] [place] [phone] Prakash Graham M.D. [address] [place] [phone] 07/16/2024 9:15 AM CDT Ancillary Procedure Department of Ophthalmology in [place], [place] [address] [place] [phone] Prakash Graham M.D. [address] [place] [phone] 07/16/2024 9:30 AM CDT Office Visit Department of Ophthalmology in [place], [place] [address] [place] [phone] Kenya Garza M.D. [address] [place] [phone] 07/16/2024 12:45 PM CDT Office Visit Department of Ophthalmology in [place], [place] [address] [place] [phone] Prakash Graham M.D. [address] [place] [phone] documented as of this encounter Visit Diagnoses Not on filedocumented in this encounter Care Teams Sales Associate Cashier Relationship Specialty Start Date End Date Elsewhere, Pcp PCP - General Internal Medicine 05/29/19 documented as of this encounter
--- OUTSIDE RECORDS SUMMARY | 2024-06-02 14:31 | XMS_ITS | Encounter Summary ---
Author Organization [facility] Address [address] [place] [address] Care Team Providers Care Hospice Executive Director Name Role Phone Elsewhere, Pcp Primary Care Provider Unavailabl e Reason for Visit * Auth/Cert (Routine) Specialty Diagnoses / Procedures Referred By Apolinar t Referred To Contact Diagnoses Panuveitis Right Necrosis Retinal Acute Right Panuveitis Right [H44.111] Necrosis Retinal Acute Right [H30.131] Procedures MD VITRECT W RMVL PRERETINAL MEMB MD RPR DETACH RETINA CMPLX VITRECTOMY - PARS PLANA 25 GAUGE / MEMBRANE PEEL / SILICONE OIL AND ALL ASSOCIATED PROCEDURES RIGHT EYE SCLERAL BUCKLING Prakash Graham M.D. [address] [place] [phone] Referral ID Status Reason Start Date Expiration Date Visits Re quested Visits Authorized [id number] 1 1 Encounter Details Date Type Department Care Team (Late st Contact Info) Description 06/01/2024 3:08 PM CDT Anesthesia Event [facility] OR [address] [place] [phone] Gaye Giraldo M.D. [address] [place] [phone] Easton Duran APRN, MIXER OPERATOR TABLETS [address] [place] [phone] Anesthesia Record Procedure Summary Procedure Name Responsible Anesthesiologist Anesthesia Start Time Anesthesia Stop Time VITRECTOMY, PARS PLANA 25 GAUGE, MEMBRANE PEEL, SILICONE OIL (Right: Eye) Gaye Giraldo M.D. 06/01/24 1508 06/01/24 1837 Events Date Time Event Comment 06/01/2024 1508 An Start Machine/Equipme nt Checked Infection Precautions Followed Procedure/Site Verified NPO Status Verified Supine Standard ASA Monitors Applied 1515 An Induction 1517 An Intubation 1519 Turnover to Proceduralist 1604 Proc Start 1659 Anes CS Handoff I, Easton mansfield APRN, LEIGHANN, attest that I have reconciled the controlled substances and that I have reviewed all the significant information with the next anesthesia provider assuming care of this patient. 181 Proc Fin 182 Turnover to ANE Staff 182 Airway Removal Criteria Met 182 Extubation/Airway Removed 182 an stop data 183 An End Meds Name Total fentanyl injection 50 mcg/mL 150 mcg lidocaine 2% (mg) injection 100 mg ePHEDrine PF 5 mg/mL syringe injection 3 5 mg ondansetron 4 mg/2 mL injection 4 mg propofol 10 mg/mL injection 300 mg methylPREDNISolone sodium succinate 125 mg injection 500 mg Lactated Ringers Free Drip 900 mL * Agents No agents on file. * Blood No blood administrations on file. Lines, Drains, and Airways Type Details Placement Removal Wound 06/01/24; 1559; Eye; Right 06/01/24 1559 by Jenny Montoya, R.N. Peripheral IV Placement Date: 03/20; Placement Time: 1418; Catheter Size: 22 G; Orientation: Anterior, Left, Lower; Location: Arm; Site Prep: Chlorhexidine (Preferred); Technique: Anatomical landmarks; Insertion Attempts: 1; Removal Date: 06/01/24; Removal Time: 1926; Removal Reason: Patient discharged 06/01/24 141 by Roxanna Rodriguez RMarylou 06/01/241926 by Nesha Lucio RMarylou Supraglottic Airway Placement Date: 03/20; Placement Time: 1516 (created via procedure documentation); Mask Ventilation: Easy mask; Brand: Latrobe; Size: 4; Removal Date: 06/01/24; Removal Time: 182306/01/24 151 by Easton Duran APRN, LEIGHANN 06/01/241823 by [place], Mubarak A, CHEMICAL PRODUCTION ENGINEER, MIXER OPERATOR TABLETS, DNAP documented in this encounter Social History Tobacco Use Types Packs/Day Years Used Date Smoking Tobacco: Former Cigarettes 0.7 70.4 0 03/28/1975 - 01/09/2022 Smokeless Tobacco: Never Comments:On again off again Alcohol Use Standard Drinks/Week Comments Yes 5 (1 standard drink = 0.6 oz pur e alcohol) occasional [facility] Utilities Answer Date Recorded In [...] How often do you attend druze or moravian serv ices? Never 06/27/2020 Do [...] medical care, and heating? Somewhat hard 06/27/2020 [facility] [place] of Occupat ional Health - Occupational Stress [...] PM CDT documented as of this encounter OR Notes * Anesthesia Procedure Notes - Easton Duran APRN, CRNA - 06/01/2024 3:36 PM CDTAssociated Order(s): Airway Airway Date/Time: 06/01/2024 3:17 PM Performed by: Easton Duran APRN, CRNA Authorized by: Bernardino Carbajal M.D. Patient location during procedure: OR / Procedure Area PROCEDURE DETAILS: Mask difficulty assessment: easy mask Final airway type: supraglottic airway Device size: 4 Number of attempt to successful placement: 1 Supraglottic device: LMA supreme Supraglottic device size: 4 Airway confirmation: bilateral breath sounds, positive ETCO2 and bilateral chest rise Other previous techniques attempted: none PRE PROCEDURE DETAILS: Pre evaluation for airway management: procedure Urgency: elective Preop assessment of probable difficulty: no difficulty anticipated Preoxygenation: bag valve mask SEDATION / ANESTHESIA Anesthesia method: anesthesia POST PROCEDURE DETAILS: Procedure outcome: successful Notable Events: no complications documented in this encounter Plan of Treatment Upcoming Encounters Date Type Department Care Team (Late st Contact Info) Description 06/09/2024 9:30 AM CDT Ancillary Procedure Department of Ophthalmology in [address] [phone] Prakash Graham M.D. [address] [place] [phone] 06/09/2024 10:00 AM CDT Office Visit Department of Ophthalmology in [address] [phone] Prakash Graham M.D. [address] [place] [phone] 07/16/2024 8:45 AM CDT Ancillary Procedure Department of Ophthalmology in [address] [phone] Prakash Graham M.D. [address] [place] [phone] 07/16/2024 9:15 AM CDT Ancillary Procedure Department of Ophthalmology in [address] [phone] Prakash Graham M.D. [address] [place] [phone] 07/16/2024 9:30 AM CDT Office Visit Department of Ophthalmology in [place], [place] [address] [place] [phone] Kenya Garza M.D. [address] [place] [phone] 07/16/2024 12:45 PM CDT Office Visit Department of Ophthalmology in [place], [place] [address] [place] [phone] Prakash Graham M.D. [address] [place] [phone] documented as of this encounter Procedures Procedure Name Priority Date/Time Associated Diagnosis Comments LDA ANE NON-SURGICAL AIRWAY Routine 06/01/2024 3:17 PM CDT documented in this encounter Results * LDA ANE NON-SURGICAL AIRWAY (06/01/2024 3:17 [...] complications Bernardino Carbajal M.D. ANESTHESIA ORDERA BLES documented in this encounter Visit Diagnoses Not on filedocumented in this encounter Administered Medications Inactive Administered Medications - up to 3 most recent administrations Medication Order MAR Action Action Date Dose Rate Site ePHEDrine (PF) injection intravenous, As needed, Starting on Sat06/01/24 at 1527, Anesthesia Intra-op Given 06/01/2024 4:33 PM CDT 10 mg Given 06/01/2024 4:28 PM CDT 5 mg Given 06/01/2024 3:48 PM CDT 10 mg fentaNYL injection (Sublimaze) intravenous, As needed, Starting on Sat06/01/24 at 1531, Anesthesia Intra-op Given 06/01/2024 6:00 PM CDT 50 mcg Given 06/01/2024 4:17 PM CDT 50 mcg Given 06/01/2024 3:31 PM CDT 50 mcg Lactated Ringer's intravenous, Continuous Infusion: Per Instructions PRN, Starting on Sat06/01/24 at 1513, Anesthesia Intra-op New Bag 06/01/2024 3:13 PM CDT lidocaine (PF) (cardiac) injection intravenous, As needed, Starting on Sat06/01/24 at 1515, Anesthesia Intra-op Given 06/01/2024 3:15 PM CDT 100 mg methylPREDNISolone sodium succinate injection (SOLU-MedroL) intravenous, As needed, Starting on Sat06/01/24 at 1730, Anesthesia Intra-op Given 06/01/2024 5:30 PM CDT 500 mg ondansetron (PF) injection (Zofran) intravenous, As needed, Starting on Sat06/01/24 at 1753, Anesthesia Intra-op Given 06/01/2024 5:53 PM CDT 4 mg propofoL injection (Diprivan) intravenous, As needed, Starting on Sat06/01/24 at 1515, Anesthesia Intra-op Given 06/01/2024 4:01 PM CDT 60 mg Given 06/01/2024 3:57 PM CDT 40 mg Given 06/01/2024 3:15 PM CDT 200 mg documented in this encounter Care Teams Hospice Executive Director Relationship Specialty Start Date End Date Elsewhere, Pcp PCP - General Internal Medicine 05/29/19 documented as of this encounter
--- OUTSIDE RECORDS SUMMARY | 2024-06-02 14:31 | XMS_ITS | Encounter Summary ---
Author Organization [facility] Address [address] [place] [address] Care Team Providers Care Measurement Department Chief Clerk Name Role Phone Elsewhere, Pcp Primary Care Provider Unavailabl e Reason for Visit * Reason Comments Post-op Follow-up * Outpatient (Routine) - Closed Specialty Diagnoses / Procedures Referred By Apolinar lopez Referred To Contact Ophthalmology Prakash Graham M.D. [address] [place] [phone] [facility] Referral ID Status Reason Start Date Expiration Date Visits Re quested Visits Authorized [id number] Closed 03/13/2024 09/12/2025 1 1 Encounter Details Date Type Department Care Team (Latest Contact Info) Description 06/02/2024 8:00 AM CDT Office Visit Department of Ophthalmology in [place], [place] [address] [place] [phone] Prakash Graham M.D. [address] [place] [phone] Necrosis Retinal Acute Right (Primary Dx); [...] Recorded In the past 12 months has [employer] electric, gas, oil, or water company [...] How often do you attend pentecostal or worship serv ices? Never 06/27/2020 Do [...] CDT Ancillary Procedure Department of Ophthalmology in [place], [place] [address] [place] [address] Prakash Graham M.D. [address] [place] [phone] 06/09/2024 10:00 AM CDT Office Visit Department of Ophthalmology in [place], [place] [address] [place] [address] Prakash Graham M.D. [address] [place] [phone] 07/16/2024 8:45 AM CDT Ancillary Procedure Department of Ophthalmology in [place], [place] [address] [place] [address] Prakash Graham M.D. [address] [place] [phone] 07/16/2024 9:15 AM CDT Ancillary Procedure Department of Ophthalmology in [place], [place] [address] [place] [address] Prakash Graham M.D. [address] [place] [phone] 07/16/2024 9:30 AM CDT Office Visit Department of Ophthalmology in [place], [place] [address] [place] [phone] Kenya Garza M.D. [address] [place] [phone] 07/16/2024 12:45 PM CDT Office Visit Department of Ophthalmology in [place], [place] [address] [place] [phone] Prakash Graham M.D. 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
--- OUTSIDE RECORDS SUMMARY | 2024-06-02 14:31 | XMS_ITS ---
Author Organization [facility] Address [address] [place] [address] Care Team Providers Care Master Mechanic Name Role Phone Unavailable Unavailable Unavailable Surgery Details Not on file Complications Check Surgery Details section. Procedure Estimated Blood Loss Check Surgery Details section. Procedure Findings Check Surgery Details section. Procedure Specimens Taken Check Surgery Details section.
--- OUTSIDE RECORDS SUMMARY | 2024-06-02 14:31 | XMS_ITS | Encounter Summary ---
Author Organization 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 [address] [place] [address] Referral ID Status Reason Start Date Expiration Date Visits Re quested Visits Authorized [id number] 1 1 Encounter Details Date Type Department Care Team (Late st Contact Info) Description 06/01/2024 2:29 PM CDT - 06/01/2024 5:26 PM CDT Surgery [facility] [address] [place] [phone] Prakash Graham M.D. [address] [place] [phone] VITRECTOMY, PARS PLANA 25 GAUGE, MEMBRANE PEEL, SILICONE OIL Social History Tobacco Use Types Packs/Day Years Used Date Smoking Tobacco: Former Cigarettes 0.7 70.4 0 03/28/1975 - 01/09/2022 Smokeless Tobacco: Never Comments:On again off again Alcohol Use Standard Drinks/Week Comments Yes 5 (1 standard drink = 0.6 oz pur e alcohol) occasional [facility] Utilities Answer Date [...] How often do you attend pentecostalism or baptism serv ices? Never 06/27/2020 Do [...] medical care, and heating? Somewhat hard 06/27/2020 [facility] [place] of Occupat ional Health - Occupational Stress [...] your living situation today? I have a [facility] place to live 11/05/2023 Education [...] Sign Reading Time Taken Comments Blood Pressure 164/68 06/01/2024 2:07 PM CDT Pulse - - Temperature 36.4 ??C (97.5 ??F) 06/01/2024 2:07 PM CD T Respiratory Rate 18 06/01/2024 2:07 PM CDT Oxygen Saturation 95% 06/01/2024 2:07 PM CDT Inhaled Oxygen Concentration - - Weight 92 kg (202 lb 13.2 oz) 06/01/2024 2:07 PM CDT Height 170.2 cm (5' 7.01) 06/01/2024 2:07 PM CD T Body Mass Index 31.76 06/01/2024 2:07 PM CDT documented in this encounter Medications at Time of Discharge Medication Sig Dispensed Refills Start Date End Date albuterol inhaler 06/22/2020 amLODIPine (NORVASC) 5 mg tablet Take 5 mg by mouth daily. aspirin (ADULT LOW DOSE ASPIRIN) [address] tablet Take 81 mg by mouth daily. atorvastatin (LIPITOR) 40 mg tablet Take 40 mg by mouth daily. 09/26/2016 fexofenadine (DINAH) 180 mg tablet Take 180 mg by mouth daily. glycerin (Biotrue Hydration Boost) 0.5 % drops Administer into affected eye(s) 3 (three) times a day. ipratropium-albutero L (DUONEB) 0.5-2.5 mg/3 mL nebulizer solution INHALE ONE VIAL VIA NEBULIZER EVERY 4 HOURS FOR 3 DAYS AND THEN CAN DECREASE TO NEEDED. 06/09/2020 lisinopriL (PRINIVIL,ZESTRIL) 20 mg tablet Take 20 mg by mouth daily. 01/23/2024 magnesium oxide (MAG-OX) 400 mg (241.3 mg magnesium) tablet Take 400 mg by mouth daily. metFORMIN (GLUCOPHAGE) 1,000 mg tablet Take 1,000 mg by mouth daily. 01/23/2024 nitroglycerin (NITROSTAT) 0.[address] 0.4 mg under the tongue as needed. NEEDED - hasn't used in over ten years prednisoLONE acetate (Pred Forte) 1 % ophthalmic suspension Administer 1 drop into the right eye 4 (four) times a day for 7 days, THEN 1 drop 3 (three) times a day for 7 days, THEN 1 drop 2 (two) times a day for 7 days, THEN 1 drop daily for 7 days. 10 mL 06/02/2024 06/30/2024 umeclidinium-vilante roL (ANORO ELLIPTA) 62.5-25 mcg/actuation inhalerIndications:C hronic Obstructive Pulmonary Disease (HCC) Inhale 1 puff once daily. 1 each 07/06/2020 valACYclovir (VALTREX) 1000 mg tablet Take 1 tablet (1,000 mg total) by mouth 3 (three) times a day. 270 tablet 1 01/23/2024 difluprednate (DurezoL) 0.05 % ophthalmic emulsion Administer 1 drop into the right eye 2 (two) times a day. Stop prednisolone when you start difluprednate 5 mL 3 04/16/2024 06/02/2024 polymyxin B-trimethoprim (Polytrim) 10,000 unit- 1 mg/mL ophthalmic solution Administer 1 drop into the right eye 4 (four) times a day for 7 days. 10 mL 06/02/2024 06/02/2024 predniSONE (DELTASONE) 5 mg tablet Take 2 tablets (10 mg total) by mouth daily. Take the entire dose in the AM with food 60 tablet 1 01/23/2024 06/02/2024 documented as of this encounter Plan of Treatment Upcoming Encounters Date Type Department Care Team (Late st Contact Info) Description 06/09/2024 9:30 AM CDT Ancillary Procedure Department of Ophthalmology in [place], [place] [address] [place] [phone] Prakash Graham M.D. [address] [place] [phone] 06/09/2024 10:00 AM CDT Office Visit Department of Ophthalmology in [place], [place] [address] [place] [phone] Prakash Graham M.D. [address] [place] [phone] 07/16/2024 8:45 AM CDT Ancillary Procedure Department of Ophthalmology in [place], [place] [address] [place] [phone] Prakash Graham M.D. [address] [place] [phone] 07/16/2024 9:15 AM CDT Ancillary Procedure Department of Ophthalmology in [place], [place] [address] [place] [phone] Prakash Graham M.D. [address] [place] [phone] 07/16/2024 9:30 AM CDT Office Visit Department of Ophthalmology in [place], [place] [address] [place] [phone] Kenya Garza M.D. [address] [place] [phone] 07/16/2024 12:45 PM CDT Office Visit Department of Ophthalmology in [place], [place] [address] [place] [phone] Prakash Graham M.D. [address] [place] [phone] documented as of this encounter Procedures Procedure Name Priority Date/Time Associated Diagnosis Comments ADULT OXYGEN THERAPY Routine 06/01/2024 6:43 PM CDT ADULT OXYGEN THERAPY Routine 06/01/2024 6:43 PM CDT GLUCOSE POCT, B Routine 06/01/2024 6:36 PM CDT documented in this encounter Results * (ABNORMAL) Glucose, POCT (06/01/2024 6:36 PM CDT) Glucose, POCT, B 207(H) 70 - 140 mg/dL 06/01/2024 6:46 PM CDT PCLX Site Capillary 06/01/2024 6:46 PM CDT PCLX Blood 06/01/2024 6:36 PM CDT 06/01/2024 6:47 PM CDT Unknown Provider LAB POCT ORDERABLES- MANUAL POC [facility] [address] [place] [address], [facility] PCLX 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 Do not use if given in last 6 hours, Restriction Criteria (Pharmacy will review and approve if criteria met): Unable to take or tolerate medications administered via the enteral route or orally (not just NPO) New Bag 06/01/2024 6:47 PM CDT 1,000 mg 400 mL/hr balanced salt solution ophthalmic irrigation (BSS) As needed, Starting on Sat06/01/24 at 1610, Intra-Op Given 06/01/2024 4:10 PM CDT 30 mL Right Eye balanced salt solution plus ophthalmic irrigation (BSS Plus) As needed, Starting on Sat06/01/24 at 1611, Intra-Op Given 06/01/2024 4:11 PM CDT 300 mL Right Eye BUPivacaine PF 0.75 % (7.5 mg/mL) injection (Marcaine) As needed, Starting on Sat06/01/24 at 1814, Intra-Op Given 06/01/2024 6:14 PM CDT 1 mL Right Eye ceFAZolin subconjunctival 25 mg (Ancef) 25 mg, subconjunctival, Once in surgery, OR use only, Starting on Sat06/01/24 at 1559, For 1 dose, Intra-Op, Inject into RIGHT. SUBCONJUNCTIVAL Use Only. Single dose vial, discard remainder. Bilateral administration requires two separate vials. Given 06/01/2024 6:15 PM CDT 1 mL Right Eye chlorhexidine 0.12 % mouthwash 15 mL (Peridex) 15 mL, swish & spit, Once as needed, Chlorhexidine mouthwash (Peridex) should be given if patient did not complete oral care, if completion is greater than 4 hours prior to surgery or procedure start time and they do not have the opportunity to brush their teeth now (or at this time)., Starting on Sat06/01/24 at 1353, For 1 dose, Pre-Op, Instruct patient to swish entire content of Chlorhexidine 0.12% mouthwash (PERIDEX) 15 mL cup for 30 seconds, then spit, swish & spit. If patient is at risk for aspiration, apply Chlorhexidine 0.12% mouthwash to a swab and gently swab the patient's teeth and gums. Ensure swab is not oversaturated. chondroitin sulf-sod hyaluron intraocular injection (Viscoat) As needed, Starting on Sat06/01/24 at 1612, Intra-Op Given 06/01/2024 4:32 PM CDT 0.5 mL Right Eye Given 06/01/2024 4:12 PM CDT 0.5 mL Ri ght Eye cyclopentolate 1 % ophthalmic solution 1 drop (CyclogyL) 1 drop, right eye, Every 5 min, First dose on Sat06/01/24 at 1415, For 3 doses, Pre-Op, In operative eye. Given 06/01/2024 2:16 PM CDT 1 drop Given 06/01/2024 2:11 PM CDT 1 drop Given 06/01/2024 2:06 PM CDT 1 drop dexAMETHasone injection 2 mg (Decadron) 2 mg, subconjunctival, Once in surgery, OR use only, Starting on Sat06/01/24 at 1559, For 1 dose, Intra-Op, Inject into RIGHT. Given 06/01/2024 6:15 PM CDT 2 mg Right Eye fentaNYL injection 25 mcg (Sublimaze) 25 mcg, intravenous, Every 2 min PRN, moderate pain or score 4-6 of 10, severe pain or score 7-10 of 10, Starting on Sat06/01/24 at 1843, PACU (only), Up to maximum total dose of 200 mcg Given 06/01/2024 7:13 PM CDT 25 mcg Given 06/01/2024 7:05 PM CDT 25 mcg gentamicin-polymixin B 20 mcg/mL-500 units/mL irrigation syringe (DABS Modified Irrigation) As needed, Starting on Sat06/01/24 at 1611, Intra-Op Given 06/01/2024 4:11 PM CDT 20 mL Right Eye indocyanine green injection (IC Green) As needed, Starting on Sat06/01/24 at 1638, Intra-Op Given 06/01/2024 4:38 PM CDT 0.64 mg Right Eye lidocaine (PF) 186 mg, hyaluronidase 225 Units, BUPivacaine PF 69.75 mg 20.1 mL injection (Ophthalmic Block Solution #4) 20.1 mL, ophthalmic, Once in surgery, OR use only, Starting on Sat06/01/24 at 1559, For 1 dose, Intra-Op Given 06/01/2024 3:59 PM CDT 4 mL Right Eye neomycin-polymyxin B-dexameth ophthalmic ointment (Maxitrol) As needed, Starting on Sat06/01/24 at 1815, Intra-Op Given 06/01/2024 6:15 PM CDT 1 Application Right Eye phenylephrine 2.5 % ophthalmic solution 1 drop (Mydfrin) 1 drop, right eye, Every 5 min, First dose on Sat06/01/24 at 1415, For 3 doses, Pre-Op, In operative eye. Given 06/01/2024 2:16 PM CDT 1 drop Given 06/01/2024 2:10 PM CDT 1 drop Given 06/01/2024 2:05 PM CDT 1 drop sodium chloride 0.9 % injection 10 mL 10 mL, intravenous, As needed, line care, Starting on Sat06/01/24 at 1353, Pre-Op, Peripheral Intravenous Catheter and Rapid Infusion Catheter, prior to blood sampling, post blood transfusion or post blood sampling sodium chloride 0.9 % injection 3 mL 3 mL, intravenous, As needed, line care, Starting on Sat06/01/24 at 1353, Pre-Op, Prior to and following infusion and between multiple consecutive infusions: sodium chloride 0.9 % injection sodium chloride 0.9 % injection 3 mL 3 mL, intravenous, Every 12 hours scheduled, First dose on Sat06/01/24 at 2100, Pre-Op, Peripheral Intravenous Catheter and Rapid Infusion Catheter, when no infusion to maintain patency triamcinolone acetonide injection (Kenalog-40) As needed, Starting on Sat06/01/24 at 1703, Intra-Op Given 06/01/2024 5:03 PM CDT 40 mg Rig ht Eye tropicamide 1 % ophthalmic solution 1 drop (Mydriacyl) 1 drop, right eye, Every 5 min, First dose on Sat06/01/24 at 1415, For 3 doses, Pre-Op, In operative eye. Given 06/01/2024 2:16 PM CDT 1 drop Given 06/01/2024 2:11 PM CDT 1 drop Given 06/01/2024 2:06 PM CDT 1 drop documented in this encounter Active and Recently Administered Medications Times are shown in CDT. Scheduled Medication Order 05/30/2024 05/31/2024 06/01/2024 cyclopentolate 1 % ophthalmic solution 1 drop (CyclogyL) (COMPLETED) 1 drop, right eye, Every 5 min, First dose on Sat06/01/24 at 1415, For 3 doses, Pre-Op, In operative eye. 1406 (Given - Provid er: Rosalba Jordan R.N.)1411 (Given - Provider: Rosalba Jordan R.N.)1416 (Given - Provider: Rosalba Jordan R.N.) phenylephrine 2.5 % ophthalmic solution 1 drop (Mydfrin) (COMPLETED) 1 drop, right eye, Every 5 min, First dose on Sat06/01/24 at 1415, For 3 doses, Pre-Op, In operative eye. 1405 (Given - Provid er: Rosalba Jordan R.N.)1410 (Given - Provider: Rosalba Jordan R.N.)1416 (Given - Provider: Francois OdellN.) sodium chloride 0.9 % injection 3 mL 3 mL, intravenous, Every 12 hours scheduled, First dose on Sat06/01/24 at 2100, Pre-Op, Peripheral Intravenous Catheter and Rapid Infusion Catheter, when no infusion to maintain patency tropicamide 1 % ophthalmic solution 1 drop (Mydriacyl) (COMPLETED) 1 drop, right eye, Every 5 min, First dose on Sat06/01/24 at 1415, For 3 doses, Pre-Op, In operative eye. 1406 (Given - Provid er: Rosalba Jordan R.N.)1411 (Given - Provider: Rosalba Jordan R.N.)1416 (Given - Provider: Rosalba Jordan R.N.) PRN Medication Order 05/30/2024 05/31/2024 06/01/2024 acetaminophen injection 1,000 mg (COMPLETED)(Linked Group 1) 1,000 mg, intravenous, at 400 mL/hr, Administer over 15 Minutes, Once as needed, other, If patient has not received in previous 6 hours, Starting on Sat06/01/24 at 1843, For 1 dose, PACU (only), Oral unless RASS less than -1 or nausea/vomiting. Do not use if given in last 6 hours, Restriction Criteria (Pharmacy will review and approve if criteria met): Unable to take or tolerate medications administered via the enteral route or orally (not just NPO) 184 (New Bag - Prov ider: Nesha Lucio R.N.) balanced salt solution ophthalmic irrigation (BSS) (CANCELED) As needed, Starting on Sat06/01/24 at 1610, Intra-Op 1610 (Given - Provid er: Prakash Graham M.D. - Comment: used throughout procedure) balanced salt solution plus ophthalmic irrigation (BSS Plus) (CANCELED) As needed, Starting on Sat06/01/24 at 1611, Intra-Op 1611 (Given - Provid er: Prakash Graham M.D. - Comment: used throughout procedure, 3ml 50% dextrose added) BUPivacaine PF 0.75 % (7.5 mg/mL) injection (Marcaine) (CANCELED) As needed, Starting on Sat06/01/24 at 1814, Intra-Op 1814 (Given - Provid er: Pranay Hubbard M.D., Ph.D.) ceFAZolin subconjunctival 25 mg (Ancef) (COMPLETED) 25 mg, subconjunctival, Once in surgery, OR use only, Starting on Sat06/01/24 at 1559, For 1 dose, Intra-Op, Inject into RIGHT. SUBCONJUNCTIVAL Use Only. Single dose vial, discard remainder. Bilateral administration requires two separate vials. 1814 (Given - Provid er: Pranay Hubbard M.D., Ph.D.) chlorhexidine 0.12 % mouthwash 15 mL (Peridex) 15 mL, swish & spit, Once as needed, Chlorhexidine mouthwash (Peridex) should be given if patient did not complete oral care, if completion is greater than 4 hours prior to surgery or procedure start time and they do not have the opportunity to brush their teeth now (or at this time)., Starting on Sat06/01/24 at 1353, For 1 dose, Pre-Op, Instruct patient to swish entire content of Chlorhexidine 0.12% mouthwash (PERIDEX) 15 mL cup for 30 seconds, then spit, swish & spit. If patient is at risk for aspiration, apply Chlorhexidine 0.12% mouthwash to a swab and gently swab the patient's teeth and gums. Ensure swab is not oversaturated. chondroitin sulf-sod hyaluron intraocular injection (Viscoat) (CANCELED) As needed, Starting on Sat06/01/24 at 1612, Intra-Op 1612 (Given - Provid er: Prakash Graham M.D.)1632 (Given - Provider: Prakash Graham M.D.) dexAMETHasone injection 2 mg (Decadron) (COMPLETED) 2 mg, subconjunctival, Once in surgery, OR use only, Starting on Sat06/01/24 at 1559, For 1 dose, Intra-Op, Inject into RIGHT. 1814 (Given - Provid er: Pranay Hubbard M.D., Ph.D.) fentaNYL injection 25 mcg (Sublimaze) (CANCELED) 25 mcg, intravenous, Every 2 min PRN, moderate pain or score 4-6 of 10, severe pain or score 7-10 of 10, Starting on Sat06/01/24 at 1843, PACU (only), Up to maximum total dose of 200 mcg 190 (Given - Provid er: Nesha Lucio R.N.)191 (Given - Provider: Nesha Lucio R.N.) gentamicin-polymixin B 20 mcg/mL-500 units/mL irrigation syringe (DABS Modified Irrigation) (CANCELED) As needed, Starting on Sat06/01/24 at 1611, Intra-Op 1611 (Given - Provid er: Prakash Graham M.D. - Comment: used throughout procedure, used to soak buckle material) indocyanine green injection (IC Green) (CANCELED) As needed, Starting on Sat06/01/24 at 1638, Intra-Op 1638 (Given - Provid er: Prakash Graham M.D.) lidocaine (PF) 186 mg, hyaluronidase 225 Units, BUPivacaine PF 69.75 mg 20.1 mL injection (Ophthalmic Block Solution #4) (COMPLETED) 20.1 mL, ophthalmic, Once in surgery, OR use only, Starting on Sat06/01/24 at 1559, For 1 dose, Intra-Op 1559 (Given - Provid er: Prakash Graham M.D.) neomycin-polymyxin B-dexameth ophthalmic ointment (Maxitrol) (CANCELED) As needed, Starting on Sat06/01/24 at 1815, Intra-Op 1815 (Given - Provid er: Pranay Hubbard M.D., Ph.D.) sodium chloride 0.9 % injection 10 mL 10 mL, intravenous, As needed, line care, Starting on Sat06/01/24 at 1353, Pre-Op, Peripheral Intravenous Catheter and Rapid Infusion Catheter, prior to blood sampling, post blood transfusion or post blood sampling sodium chloride 0.9 % injection 3 mL 3 mL, intravenous, As needed, line care, Starting on Sat06/01/24 at 1353, Pre-Op, Prior to and following infusion and between multiple consecutive infusions: sodium chloride 0.9 % injection triamcinolone acetonide injection (Kenalog-40) (CANCELED) As needed, Starting on Sat06/01/24 at 1703, Intra-Op 1703 (Given - Provid er: Prakash Graham M.D. - Comment: used throughout procedure) Linked Groups Order Group 1: acetaminophen tablet 1,000 mg (TylenoL) (COMPLETED) 1,000 mg, oral, Once as needed, other, If patient has not received in the previous 6 hours, Starting on Sat06/01/24 at 1843, For 1 dose, PACU (only), Oral unless RASS less than -1 or nausea/vomiting. Do not use if given in last 6 hours Or acetaminophen injection 1,000 mg (COMPLETED)Jump to med 1,000 mg, intravenous, at 400 mL/hr, Administer over 15 Minutes, Once as needed, other, If patient has not received in previous 6 hours, Starting on Sat06/01/24 at 1843, For 1 dose, PACU (only), Oral unless RASS less than -1 or nausea/vomiting. Do not use if given in last 6 hours, Restriction Criteria (Pharmacy will review and approve if criteria met): Unable to take or tolerate medications administered via the enteral route or orally (not just NPO) documented in this encounter Care Teams Apprentice Plumber Relationship Specialty Start Date End Date Elsewhere, Pcp PCP - General Internal Medicine 05/29/19 documented as of this encounter
--- OUTSIDE RECORDS SUMMARY | 2024-06-02 14:32 | XMS_ITS | Encounter Summary ---
Author Organization [facility] Address [address] [place] [address] Care Team Providers Care Field Case Manager Name Role Phone Elsewhere, Pcp Primary Care Provider Unavailabl e Reason for Visit * Outpatient (Routine) - Closed Specialty Diagnoses / Procedures Referred By Contmuriel t Referred To Contact Ophthalmology Prakash Graham M.D. [address] [place] [phone] [facility] Referral ID Status Reason Start Date Expiration Date Visits Re quested Visits Authorized [id number] Closed 03/16/2024 09/15/2025 1 1 Encounter Details Date Type Department Care Team (Latest Contact Info) Description 04/14/2024 2:30 PM CDT Office Visit Department of Ophthalmology in [place], [place] [address] [place] [phone] Prakash Graham M.D. [address] [place] [phone] Panuveitis Right (Primary Dx); Proliferative Vitreoretinopathy Right Social History Tobacco Use Types Packs/Day Years Used Date Smoking Tobacco: Former Cigarettes 0.7 70.4 0 03/28/1975 - 01/09/2022 Smokeless Tobacco: Never Comments:On again off again Alcohol Use Standard Drinks/Week Comments Yes 5 (1 standard drink = 0.6 oz pur e alcohol) occasional C Utilities Answer Date Recorded In the past 12 months has [employer] electric, gas, oil, or water company threatened [...] How often do you attend protestant or druze serv ices? Never 06/27/2020 Do [...] medical care, and heating? Somewhat hard 06/27/2020 [facility] [place] of Occupat ional Health - Occupational [...] Ancillary Procedure Department of Ophthalmology in [address] [phone] Prakash Graham M.D. [address] [place] [phone] 06/09/2024 10:00 AM CDT Office Visit Department of Ophthalmology in [address] [phone] Prakash Graham M.D. [address] [place] [phone] 07/16/2024 8:45 AM CDT Ancillary Procedure Department of Ophthalmology in [address] [phone] Prakash Graham M.D. [address] [place] [phone] 07/16/2024 9:15 AM CDT Ancillary Procedure Department of Ophthalmology in [address] [phone] Prakash Graham M.D. [address] [place] [phone] 07/16/2024 9:30 AM CDT Office Visit Department of Ophthalmology in [place], [place] [address] [place] [address] Kenya Garza M.D. [address] [place] [phone] 07/16/2024 12:45 PM CDT Office Visit Department of Ophthalmology in [place], [place] [address] [place] [phone] Prakash Graham M.D. [address] [place] [phone] documented as of this encounter Visit Diagnoses Diagnosis Panuveitis Right- Primary Proliferative Vitreoretinopathy Right documented in this encounter Care Teams Field Case Manager Relationship Specialty Start Date End Date Elsewhere, Pcp PCP - General Internal Medicine 05/29/19 documented as of this encounter
--- OUTSIDE RECORDS SUMMARY | 2024-06-02 14:32 | XMS_ITS | Encounter Summary ---
Author Organization [facility] Address [address] [place] [address] Care Team Providers Care Rand Cementer Name Role Phone Elsewhere, Pcp Primary Care Provider Unavailabl e Reason for Visit * Reason Onset Date Comments Surgery today 04/2704/27/2024 Encounter Details Date Type Department Care Team (Latest Contact Info) Description 04/27/2024 Clinical Communication Department of Ophthalmology in [place], [place] [address] [place] [phone] Prakash Graham M.D. [address] [place] [address] Surgery today 04/27 Social History Tobacco Use Types Packs/Day Years Used Date Smoking Tobacco: Former Cigarettes 0.7 70.4 0 03/28/1975 - 01/09/2022 Smokeless Tobacco: Never Comments:On again off again Alcohol Use Standard Drinks/Week Comments Yes 5 (1 standard drink = 0.6 oz pur e alcohol) occasional [facility] Utilities Answer Date [...] How often do you attend religious or synagogue serv ices? Never 06/27/2020 Do [...] [facility] of Occupat ional [facility] - Occupational Stress Questionnaire Answer [...] CDT Ancillary Procedure Department of Ophthalmology in [place], [place] [address] [place] [phone] Prakash Graham M.D. [address] [place] [phone] 06/09/2024 10:00 AM CDT Office Visit Department of Ophthalmology in [place], [place] [address] [place] [phone] Prakash Graham M.D. [address] [place] [phone] 07/16/2024 8:45 AM CDT Ancillary Procedure Department of Ophthalmology in [place], [place] [address] [place] [phone] Prakash Graham M.D. [address] [place] [phone] 07/16/2024 9:15 AM CDT Ancillary Procedure Department of Ophthalmology in [place], [place] [address] [place] [phone] Prakash Graham M.D. [address] [place] [phone] 07/16/2024 9:30 AM CDT Office Visit Department of Ophthalmology in [place], [place] [address] [place] [phone] Kenya Garza M.D. [address] [place] [phone] 07/16/2024 12:45 PM CDT Office Visit Department of Ophthalmology in [place], [place] [address] [place] [phone] Prakash Graham M.D. [address] [place] [phone] documented as of this encounter Visit Diagnoses Not on filedocumented in this encounter Care Teams Rand Cementer Relationship Specialty Start Date End Date Elsewhere, Pcp PCP - General Internal Medicine 05/29/19 documented as of this encounter
--- OUTSIDE RECORDS SUMMARY | 2024-06-02 14:32 | XMS_ITS | Encounter Summary ---
Author Organization [facility] Address [address] [place] [address] Care Team Providers Care Tilesetter Name Role Phone Elsewhere, Pcp Primary Care Provider Unavailabl e Encounter Details Date Type Department Care Team (Latest Contact Info) Description 04/16/2024 2:00 PM CDT Ancillary Procedure Department of Ophthalmology in [place], [place] [address] [place] [address] Kenya Garza M.D. [address] [place] [address] Necrosis Retinal Acute Right Social History Tobacco Use Types Packs/Day Years Used Date Smoking Tobacco: Former Cigarettes 0.7 70.4 0 03/28/1975 - 01/09/2022 Smokeless Tobacco: Never Comments:On again off again Alcohol Use Standard Drinks/Week Comments Yes 5 (1 standard drink = 0.6 oz pur e alcohol) occasional [facility] Utilities Answer Date Recorded In the past 12 months has [employer], gas, oil, or water [email or web address] threatened to shut off services in your home? No 11/05/2023 Social Connection and Isolation Panel [NHANES] A nswer Date Recorded In a typical week, how many times do you talk on the phone with family, friends, or neighbors? Once a week 06/27/2020 How often do you get together with friends or re latives? Never 06/27/2020 How often do you attend judaism or temple serv ices? Never 06/27/2020 Do [...] Somewhat hard 06/27/2020 [facility] of Occupat ional Health - Occupational Stress [...] CDT Ancillary Procedure Department of Ophthalmology in [place], [place] [address] [place] [phone] Prakash Graham M.D. [address] [place] [phone] 06/09/2024 10:00 AM CDT Office Visit Department of Ophthalmology in [place], [place] [address] [place] [phone] Prakash Graham M.D. [address] [place] [phone] 07/16/2024 8:45 AM CDT Ancillary Procedure Department of Ophthalmology in [place], [place] [address] [place] [phone] Prakash Graham M.D. [address] [place] [phone] 07/16/2024 9:15 AM CDT Ancillary Procedure Department of Ophthalmology in [place], [place] [address] [place] [phone] Prakash Graham M.D. [address] [place] [phone] 07/16/2024 9:30 AM CDT Office Visit Department of Ophthalmology in [place], [place] [address] [place] [address] Kenya Garza M.D. [address] [place] [address] 07/16/2024 12:45 PM CDT Office Visit Department of Ophthalmology in [place], [place] [address] [place] [phone] Prakash Graham M.D. [address] [place] [phone] documented as of this encounter Procedures Procedure [...] ciliary body detachment noted, possible ciliochoroidal effusion. [facility] Kenya Garza M.D. OPHTH ULTRASOUND OPHTHALMOLGY NON-IMAGING ORDERS documented in this encounter Visit Diagnoses Diagnosis Necrosis Retinal Acute Right documented in this encounter Care Teams Tilesetter Relationship Specialty Start Date End Date Elsewhere, Pcp PCP - General Internal Medicine 05/29/19 documented as of this encounter
--- OUTSIDE RECORDS SUMMARY | 2024-06-02 14:32 | XMS_ITS | Encounter Summary ---
Author Organization [facility] Address [address] [place] [address] Care Team Providers Care House Painter Helper Name Role Phone Elsewhere, Pcp Primary [...] How often do you attend islam or congregation serv ices? Never 06/27/2020 Do [...] Somewhat hard 06/27/2020 [facility] of Occupat ional [facility] - Occupational Stress Questionnaire Answer [...] CDT Ancillary Procedure Department of Ophthalmology in [place], [place] [address] [place] [phone] Prakash Graham M.D. [address] [place] [phone] 06/09/2024 10:00 AM CDT Office Visit Department of Ophthalmology in [place], [place] [address] [place] [phone] Prakash Graham M.D. [address] [place] [phone] 07/16/2024 8:45 AM CDT Ancillary Procedure Department of Ophthalmology in [place], [place] [address] [place] [phone] Prakash Graham M.D. [address] [place] [phone] 07/16/2024 9:15 AM CDT Ancillary Procedure Department of Ophthalmology in [place], [place] [address] [place] [phone] Prakash Graham M.D. [address] [place] [phone] 07/16/2024 9:30 AM CDT Office Visit Department of Ophthalmology in [place], [place] [address] [place] [phone] Kenya Garza M.D. [address] [place] [phone] 07/16/2024 12:45 PM CDT Office Visit Department of Ophthalmology in [place], [place] [address] [place] [address] Prakash Graham M.D. [address] [place] [address] documented as of this encounter Procedures Procedure Name Priority Date/Time Associated Diagnosis Comments OPHTHALMOLOGY IMAGE EXAM Routine 04/16/2024 12:00 AM CDT documented in this encounter Results * Eyes US-Eye A-Izaa-Yffiqprjqcwkm Image Exam (04/16/2024 12:00 AM CDT) Narrative [...] on filedocumented in this encounter Care Teams House Painter Helper Relationship Specialty Start Date End Date Elsewhere, Pcp PCP - General Internal Medicine 05/29/19 documented as of this encounter
--- OUTSIDE RECORDS SUMMARY | 2024-06-02 14:32 | XMS_ITS | Encounter Summary ---
Author Organization [facility] Address [address] [place] [address] Care Team Providers Care Service Line Coordinator Name Role Phone Elsewhere, Pcp Primary [...] How often do you attend christian or taoism serv ices? Never 06/27/2020 Do [...] [facility] of Occupat ional [facility] - Occupational Stress Questionnaire Answer [...] CDT Ancillary Procedure Department of Ophthalmology in [place], [place] [address] [place] [phone] Prakash Graham M.D. [address] [place] [phone] 06/09/2024 10:00 AM CDT Office Visit Department of Ophthalmology in [place], [place] [address] [place] [phone] Prakash Graham M.D. [address] [place] [phone] 07/16/2024 8:45 AM CDT Ancillary Procedure Department of Ophthalmology in [place], [place] [address] [place] [phone] Prakash Graham M.D. [address] [place] [phone] 07/16/2024 9:15 AM CDT Ancillary Procedure Department of Ophthalmology in [place], [place] [address] [place] [phone] Prakash Graham M.D. [address] [place] [phone] 07/16/2024 9:30 AM CDT Office Visit Department of Ophthalmology in [place], [place] [address] [place] [phone] Kenya Garza M.D. [address] [place] [phone] 07/16/2024 12:45 PM CDT Office Visit Department of Ophthalmology in [place], [place] [address] [place] [address] Prakash Graham M.D. [address] [place] [address] documented as of this encounter Procedures Procedure [...] on filedocumented in this encounter Care Teams Service Line Coordinator Relationship Specialty Start Date End Date Elsewhere, Pcp PCP - General Internal Medicine 05/29/19 documented as of this encounter
--- OUTSIDE RECORDS SUMMARY | 2024-06-02 14:32 | XMS_ITS | Encounter Summary ---
Author Organization [facility] Address 200 [place] [address] Care Team Providers Care Developer [employer] Systems Name Role Phone Elsewhere, Pcp Primary Care Provider Unavailabl e Reason for Visit * Auth/Cert (Routine) Specialty Diagnoses / Procedures Referred By Apolinar t Referred To Contact Diagnoses Panuveitis Right Necrosis Retinal Acute Right Panuveitis Right [H44.111] Necrosis Retinal Acute Right [H30.131] Procedures NC VITRECT W RMVL PRERETINAL MEMB NC RPR DETACH RETINA CMPLX VITRECTOMY - PARS PLANA 25 GAUGE / MEMBRANE PEEL / SILICONE OIL AND ALL ASSOCIATED PROCEDURES RIGHT EYE SCLERAL BUCKLING Prakash Graham M.D. 200 [place] [address] Referral ID Status Reason Start Date Expiration Date Visits Re quested Visits Authorized [id number] 1 1 Encounter Details Date Type Department Care Team (Latest Contact Info) Description 06/01/2024 1:25 PM CDT - 06/01/2024 7:27 PM CDT Hospital Encounter [facility] [address] [place] [phone] Prakash Graham M.D. 200 [place] [phone] Discharge Disposition: Home or Self Care Social History Tobacco Use Types Packs/Day Years Used Date Smoking Tobacco: Former Cigarettes 0.7 70.4 0 03/28/1975 - 01/09/2022 Smokeless Tobacco: Never Comments:On again off again Alcohol Use Standard Drinks/Week Comments Yes 5 (1 standard drink = 0.6 oz pur e alcohol) occasional [facility] Utilities Answer Date Recorded In the [...] How often do you attend adventist or christianity serv ices? Never 06/27/2020 Do [...] heating? Somewhat hard 06/27/2020 [facility] of Occupat ional Health - Occupational Stress [...] Ancillary Procedure Department of Ophthalmology in [address] [phone] Prakash Graham M.D. [address] [place] [phone] 06/09/2024 10:00 AM CDT Office Visit Department of Ophthalmology in [address] [phone] Prakash Graham M.D. [address] [place] [phone] 07/16/2024 8:45 AM CDT Ancillary Procedure Department of Ophthalmology in [address] [phone] Prakash Graham M.D. [address] [place] [phone] 07/16/2024 9:15 AM CDT Ancillary Procedure Department of Ophthalmology in [place], [place] [address] [place] [phone] Prakash Graham M.D. [address] [place] [phone] 07/16/2024 9:30 AM CDT Office Visit Department of Ophthalmology in [place], [place] [address] [place] [phone] Kenya Garza M.D. [address] [place] [phone] 07/16/2024 12:45 PM CDT Office Visit Department of Ophthalmology in [place], [place] [address] [place] [phone] Prakash Graham M.D. [address] [place] [phone] documented as of this encounter Procedures Procedure Name Priority Date/Time Associated Diagnosis Comments ADULT OXYGEN THERAPY Routine 06/01/2024 6:43 PM CDT ADULT OXYGEN THERAPY Routine 06/01/2024 6:43 PM CDT GLUCOSE POCT, B Routine 06/01/2024 6:36 PM CDT documented in this encounter Results * (ABNORMAL) Glucose, POCT (06/01/2024 6:36 PM CDT) [facility] Glucose, POCT, B 207(H) 70 - 140 mg/dL 06/01/2024 6:46 PM CDT PCLX Site Capillary 06/01/2024 6:46 PM CDT PCLX Blood 06/01/2024 6:36 PM CDT 06/01/2024 6:47 PM CDT Unknown Provider LAB POCT ORDERABLES- MANUAL POC [facility] [address] [place] [address], [place] PCLX [facility] 200 [place] [address] documented in this encounter Visit Diagnoses Diagnosis Panuveitis Right Necrosis Retinal Acute Right Chronic Obstructive Pulmonary Disease Without Exacerbation (HCC) documented in this encounter Admitting Diagnoses Diagnosis [...] 6:47 PM CDT 1,000 mg 400 mL/hr chlorhexidine 0.12 % mouthwash 15 mL (Peridex) [...] and gums. Ensure swab is not oversaturated. cyclopentolate 1 % ophthalmic solution 1 drop (CyclogyL) 1 drop, right eye, Every 5 min, First dose on Sat06/01/24 at 1415, For 3 doses, Pre-Op, In operative eye. Given 06/01/2024 2:16 PM CDT 1 drop Given 06/01/2024 2:11 PM CDT 1 drop Given 06/01/2024 2:06 PM CDT 1 drop fentaNYL injection 25 mcg (Sublimaze) 25 mcg, intravenous, Every 2 min PRN, moderate pain or score 4-6 of 10, severe pain or score 7-10 of 10, Starting on Sat06/01/24 at 1843, PACU (only), Up to maximum total dose of 200 mcg Given 06/01/2024 7:13 PM CDT 25 mcg Given 06/01/2024 7:05 PM CDT 25 mcg phenylephrine 2.5 % ophthalmic solution 1 drop [...] Rosalba Jordan R.N.)1416 (Given - Provider: Rosalba J [place], R.N.) phenylephrine 2.5 % ophthalmic solution 1 drop (Mydfrin) (COMPLETED) 1 drop, right eye, Every 5 min, First dose on Sat06/01/24 at 1415, For 3 doses, Pre-Op, In operative eye. 1405 (Given - Provid er: Rosalba Jordan R.N.)1410 (Given - Provider: Rosalba Jordan R.N.)1416 (Given - Provider: Rosalba Jordan R.N.) sodium chloride 0.9 % injection 3 mL [...] enteral route or orally (not just NPO) 1847 (New Bag - Prov ider: Nesha Lucio RWhitneyNWhitney) balanced salt solution ophthalmic irrigation (BSS) (CANCELED) [...] For 1 dose, Intra-Op, Inject into RIGHT. 181 (Given - Provid er: Pranay Hubbard M.D., Ph.D.) fentaNYL injection 25 mcg (Sublimaze) (CANCELED) 25 mcg, intravenous, Every 2 min PRN, moderate pain or score 4-6 of 10, severe pain or score 7-10 of 10, Starting on Sat06/01/24 at 1843, PACU (only), Up to maximum total dose of 200 mcg 190 (Given - Provid er: Nesha Lucio R.N.)1913 (Given - Provider: Nesha Lucio R.N.) gentamicin-polymixin [...] needed, Starting on Sat06/01/24 at 1815, Intra-Op 181 (Given - Provid er: Pranay Hubbard M.D., [...] NPO) documented in this encounter Care Teams Developer [employer] Relationship Specialty Start Date End Date Elsewhere, Pcp PCP - General Internal Medicine 05/29/19 documented as of this encounter
--- OUTSIDE RECORDS SUMMARY | 2024-06-02 14:32 | XMS_ITS | Encounter Summary ---
Author Organization [facility] Address [address] [place] [address] Care Team Providers Care Production Department Supervisor Name Role Phone Elsewhere, Pcp Primary Care Provider Unavailabl e Reason for Visit * Reason Comments Med Refill Encounter Details Date Type Department Care Team (Late st Contact Info) Description 04/01/2024 Refill Department of Ophthalmology in [place], [place] [address] [place] [phone] Raffi Boyd M.D. [address] [place] [phone] Med Refill Social History Tobacco Use Types Packs/Day Years Used Date Smoking Tobacco: Light Smoker Cigarettes 0.5 44.3 Started: 02/26/1980 Smokeless Tobacco: Never Comments:On again off again Alcohol Use Standard Drinks/Week Comments Yes 0 (1 standard drink = 0.6 oz pur e alcohol) [facility] Utilities Answer Date Recorded In the past 12 months has [employer], gas, oil, or water [employer] threatened to shut off services in your home? No 11/05/2023 Social Connection and Isolation Panel [NHANES] A nswer Date Recorded In a typical week, how many times do you talk on the phone with family, friends, or neighbors? Once a week 06/27/2020 How often do you get together with friends or re latives? Never 06/27/2020 How often do you attend anabaptism or gnosticism serv ices? Never 06/27/2020 Do [...] CDT Ancillary Procedure Department of Ophthalmology in [place], [place] [address] [place] [phone] Prakash Graham M.D. [address] [place] [phone] 06/09/2024 10:00 AM CDT Office Visit Department of Ophthalmology in [place], [place] [address] [place] [phone] Prakash Graham M.D. [address] [place] [phone] 07/16/2024 8:45 AM CDT Ancillary Procedure Department of Ophthalmology in [place], [place] [address] [place] [phone] Prakash Graham M.D. [address] [place] [phone] 07/16/2024 9:15 AM CDT Ancillary Procedure Department of Ophthalmology in [place], [place] [address] [place] [phone] Prakash Graham M.D. [address] [place] [phone] 07/16/2024 9:30 AM CDT Office Visit Department of Ophthalmology in [place], [place] [address] [place] [address] Kenya Garza M.D. [address] [place] [phone] 07/16/2024 12:45 PM CDT Office Visit Department of Ophthalmology in [place], [place] [address] [place] [phone] Prakash Graham M.D. [address] [place] [phone] documented as of this encounter Visit Diagnoses Not on filedocumented in this encounter Care Teams Production Department Supervisor Relationship Specialty Start Date End Date Elsewhere, Pcp PCP - General Internal Medicine 05/29/19 documented as of this encounter
--- OUTSIDE RECORDS SUMMARY | 2024-06-02 14:32 | XMS_ITS | Encounter Summary ---
Author Organization [facility] Address [address] [place] [address] Care Team Providers Care Leader Writer Name Role Phone Elsewhere, Pcp Primary Care Provider Unavailabl e Reason for Visit * Reason Onset Date Comments Follow Up Visit from ER 05/04/2024 Encounter Details Date Type Department Care Team (Latest Contact Info) Description 05/04/2024 Clinical Communication Department of Ophthalmology in [place], [place] [address] [place] [address] Kenya Garza M.D. [address] [place] [phone] Follow Up Visit from ER Social History Tobacco Use Types Packs/Day Years Used Date Smoking Tobacco: Former Cigarettes 0.7 70.4 0 03/28/1975 - 01/09/2022 Smokeless Tobacco: Never Comments:On again off again Alcohol Use Standard Drinks/Week Comments Yes 5 (1 standard drink = 0.6 oz pur e alcohol) occasional [facility] Utilities Answer Date Recorded In the past 12 months has [employer] electric, gas, oil, or water company [...] How often do you attend bahai or restoration serv ices? Never 06/27/2020 Do [...] medical care, and heating? Somewhat hard 06/27/2020 [facility] of Occupat ional Health - Occupational Stress [...] CDT Ancillary Procedure Department of Ophthalmology in [place], [place] [address] [place] [phone] Prakash Graham M.D. [address] [place] [phone] 06/09/2024 10:00 AM CDT Office Visit Department of Ophthalmology in [place], [place] [address] [place] [phone] Prakash Graham M.D. [address] [place] [phone] 07/16/2024 8:45 AM CDT Ancillary Procedure Department of Ophthalmology in [place], [place] [address] [place] [phone] Prakash Graham M.D. [address] [place] [phone] 07/16/2024 9:15 AM CDT Ancillary Procedure Department of Ophthalmology in [place], [place] [address] [place] [phone] Prakash Graham M.D. [address] [place] [phone] 07/16/2024 9:30 AM CDT Office Visit Department of Ophthalmology in [place], [place] [address] [place] [address] Kenya Garza M.D. [address] [place] [phone] 07/16/2024 12:45 PM CDT Office Visit Department of Ophthalmology in [place], [place] [address] [place] [address] Prakash Graham M.D. [address] [place] [phone] documented as of this encounter Visit Diagnoses Not on filedocumented in this encounter Care Teams Leader Writer Relationship Specialty Start Date End Date Elsewhere, Pcp PCP - General Internal Medicine 05/29/19 documented as of this encounter
--- OUTSIDE RECORDS SUMMARY | 2024-06-02 14:32 | XMS_ITS | Encounter Summary ---
Author Organization [facility] Address [address] [place] [address] Care Team Providers Care Medical Unit Secretary Name Role Phone Elsewhere, Pcp Primary Care Provider Unavailabl e Encounter Details Date Type Department Care Team (Latest Contact Info) Description 04/16/2024 1:00 PM CDT Ancillary Procedure Department of Ophthalmology in [place], [place] [address] [place] [address] Kenya Garza M.D. [address] [place] [address] Necrosis Retinal Acute Right Social History Tobacco Use Types Packs/Day Years Used Date Smoking Tobacco: Former Cigarettes 0.7 70.4 0 03/28/1975 - 01/09/2022 Smokeless Tobacco: Never Comments:On again off again Alcohol Use Standard Drinks/Week Comments Yes 5 (1 standard drink = 0.6 oz pur e alcohol) occasional [facility] Utilities Answer Date Recorded In the past 12 months has [employer], gas, oil, or water [employer] threatened to shut off services in your home? No 11/05/2023 Social Connection and Isolation Panel [NHANES] A nswer Date Recorded In a typical week, how many times do you talk on the phone with family, friends, or neighbors? Once a week 06/27/2020 How often do you get together with friends or re latives? Never 06/27/2020 How often do you attend quaker or uatsdin serv ices? Never 06/27/2020 Do [...] and heating? Somewhat hard 06/27/2020 [facility] of Occupat ional Health - Occupational Stress [...] CDT Ancillary Procedure Department of Ophthalmology in [place], [place] [address] [place] [phone] Prakash Graham M.D. [address] [place] [phone] 06/09/2024 10:00 AM CDT Office Visit Department of Ophthalmology in [place], [place] [address] [place] [phone] Prakash Graham M.D. [address] [place] [phone] 07/16/2024 8:45 AM CDT Ancillary Procedure Department of Ophthalmology in [place], [place] [address] [place] [phone] Prakash Graham M.D. [address] [place] [phone] 07/16/2024 9:15 AM CDT Ancillary Procedure Department of Ophthalmology in [place], [place] [address] [place] [phone] Prakash Graham M.D. [address] [place] [phone] 07/16/2024 9:30 AM CDT Office Visit Department of Ophthalmology in [place], [place] [address] [place] [address] Kenya Garza M.D. [address] [place] [address] 07/16/2024 12:45 PM CDT Office Visit Department of Ophthalmology in [place], [place] [address] [place] [phone] Prakash Graham M.D. [address] [place] [phone] documented as of this encounter Procedures Procedure [...] ciliary body detachment noted, possible ciliochoroidal effusion. [facility] Kenya Garza M.D. OPHTH ULTRASOUND OPHTHALMOLGY NON-IMAGING ORDERS documented in this encounter Visit Diagnoses Diagnosis Necrosis Retinal Acute Right documented in this encounter Care Teams Medical Unit Secretary Relationship Specialty Start Date End Date Elsewhere, Pcp PCP - General Internal Medicine 05/29/19 documented as of this encounter
--- OUTSIDE RECORDS SUMMARY | 2024-06-02 14:32 | XMS_ITS | Encounter Summary ---
Author Organization [facility] Address [address] [place] [address] Care Team Providers Care Corner Former Name Role Phone Elsewhere, Pcp Primary Care Provider Unavailabl e Reason for Referral * Outpatient (Routine) - Authorized Specialty Diagnoses / Procedures Referred By Apolinar lopez Referred To Contact Ophthalmology Kenya Garza M.D. 200 [place] [address] [facility] Referral ID Status Reason Start Date Expiration Date V isits Requested Visits Authorized [id number] Authorized 04/16/2024 10/16/2025 1 1 Scheduling Instructions I will see her on the same day as one of the post-op visits. (Probably the one after early May.) Reason for Visit * Reason Comments Follow-up * Outpatient (Routine) - Closed Specialty Diagnoses / Procedures Referred By Apolinar lopez Referred To Contact Ophthalmology Diagnoses Necrosis Retinal Acute Right Kenya Garza M.D. 200 [place] [address] [facility] Referral ID Status Reason Start Date Expiration Date Visits Re quested Visits Authorized [id number] Closed 03/13/2024 09/12/2025 1 1 Encounter Details Date Type Department Care Team (Latest Contact Info) Description 04/16/2024 2:30 PM CDT Office Visit Department of Ophthalmology in [place], [place] [address] [place] [phone] Kenya Garza M.D. 200 [place] [address] Necrosis Retinal Acute Right (Primary Dx); Proliferative [...] How often do you attend bahai or caodaism serv ices? Never 06/27/2020 Do [...] heating? Somewhat hard 06/27/2020 [facility] [place] of Occupat ional Health - Occupational Stress [...] with tobramycin drops without improvement. She saw donor recruitment manager Dr. Daisy Ivy on 10/23/23. 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 She was transferred to [facility] for additional pulmonology care. On 09/12/23 [...] chest/abdomen/pelvis to assess for malignancy), [facility] again. Each time she saw her oncologist, [...] plans to monitor. (Her oncologist is at [facility].) MEDICATIONS Prednisolone every hour while [...] retinal detachment. No T sign noted. [facility] Macula OCT of the right [...] vs subhyaloid opacities. No T sign noted. [facility]. PLAN There is slow involution of the [...] out shallow detachment vs subhyaloid opacities. [facility] PLAN: It has been 21 [...] ciliary body detachment noted, possible ciliochoroidal effusion. [facility] PLAN Continue the current eye drops and [...] CDT Ancillary Procedure Department of Ophthalmology in [place], [place] [address] [place] [phone] Prakash Graham M.D. [address] [place] [phone] 06/09/2024 10:00 AM CDT Office Visit Department of Ophthalmology in [place], [place] [address] [place] [phone] Prakash Graham M.D. [address] [place] [phone] 07/16/2024 8:45 AM CDT Ancillary Procedure Department of Ophthalmology in [place], [place] [address] [place] [phone] Prakash Graham M.D. [address] [place] [phone] 07/16/2024 9:15 AM CDT Ancillary Procedure Department of Ophthalmology in [place], [place] [address] [place] [phone] Prakash Graham M.D. [address] [place] [phone] 07/16/2024 9:30 AM CDT Office Visit Department of Ophthalmology in [address] [phone] Kenya Garza M.D. [address] [place] [phone] 07/16/2024 12:45 PM CDT Office Visit Department of Ophthalmology in [address] [address] Prakash Graham M.D. 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
--- OUTSIDE RECORDS SUMMARY | 2024-06-02 14:32 | XMS_ITS | Encounter Summary ---
Author Organization [facility] Address [address] [place] [address] Care Team Providers Care Bulk Receiver Name Role Phone Elsewhere, Pcp Primary Care [...] Recorded In the past 12 months has [employer], gas, oil, or water company threatened [...] How often do you attend cheondoism or pentecostalism serv ices? Never 06/27/2020 Do [...] CDT Ancillary Procedure Department of Ophthalmology in [place], [place] [address] [place] [phone] Prakash Graham M.D. [address] [place] [phone] 06/09/2024 10:00 AM CDT Office Visit Department of Ophthalmology in [place], [place] [address] [place] [phone] Prakash Graham M.D. [address] [place] [phone] 07/16/2024 8:45 AM CDT Ancillary Procedure Department of Ophthalmology in [place], [place] [address] [place] [phone] Prakash Graham M.D. [address] [place] [phone] 07/16/2024 9:15 AM CDT Ancillary Procedure Department of Ophthalmology in [place], [place] [address] [place] [phone] Prakash Graham M.D. [address] [place] [phone] 07/16/2024 9:30 AM CDT Office Visit Department of Ophthalmology in [place], [place] [address] [place] [phone] Kenya Garza M.D. [address] [place] [phone] 07/16/2024 12:45 PM CDT Office Visit Department of Ophthalmology in [place], [place] [address] [place] [address] Prakash Graham M.D. [address] [place] [address] documented as of this encounter Procedures Procedure [...] on filedocumented in this encounter Care Teams Bulk Receiver Relationship Specialty Start Date End Date Elsewhere, Pcp PCP - General Internal Medicine 05/29/19 documented as of this encounter
--- OUTSIDE RECORDS SUMMARY | 2024-06-02 14:32 | XMS_ITS | Encounter Summary ---
Author Organization [facility] Address [address] [place] [address] Care Team Providers Care Wad Impregnator Name Role Phone Elsewhere, Pcp Primary Care Provider Unavailabl e Encounter Details Date Type Department Care Team (Late st Contact Info) Description 03/16/2024 Orders Only Department of Ophthalmology in [place], [place] [address] [place] [address] Shahnaz Amato, C.O.A. [address] [place] [address] Necrosis Retinal Acute Right (Primary Dx) Social [...] Never 06/27/2020 How often do you attend confucianist or worship serv ices? Never 06/27/2020 Do you belong to any clubs o r organizations such as confucianist groups, unions, fraternal or athletic groups, or [...] medical care, and heating? Somewhat hard 06/27/2020 [facility] of Occupat ional Health - Occupational [...] CDT Ancillary Procedure Department of Ophthalmology in [address] [phone] Prakash Graham M.D. [address] [place] [phone] 06/09/2024 10:00 AM CDT Office Visit Department of Ophthalmology in [address] [phone] Prakash Graham M.D. [address] [place] [phone] 07/16/2024 8:45 AM CDT Ancillary Procedure Department of Ophthalmology in [address] [phone] Prakash Graham M.D. [address] [place] [phone] 07/16/2024 9:15 AM CDT Ancillary Procedure Department of Ophthalmology in [place], [place] [address] [place] [phone] Prakash Graham M.D. [address] [place] [phone] 07/16/2024 9:30 AM CDT Office Visit Department of Ophthalmology in [place], [place] [address] [place] [address] Kenya Garza M.D. [address] [place] [address] 07/16/2024 12:45 PM CDT Office Visit Department of Ophthalmology in [place], [place] [address] [place] [address] Prakash Graham M.D. [address] [place] [address] documented as of this encounter Results * [...] ciliary body detachment noted, possible ciliochoroidal effusion. [facility] Kenya Garza M.D. [facility] ULTRASOUND OPHTHALMOLGY NON-IMAGING ORDERS * B-Scan Ultrasound [...] ciliary body detachment noted, possible ciliochoroidal effusion. [facility] Kenya Garza M.D. 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
--- OUTSIDE RECORDS SUMMARY | 2024-06-02 14:32 | XMS_ITS | Encounter Summary ---
Author Organization [facility] Address [address] [place] [address] Care Team Providers Care Planner Intern Name Role Phone Elsewhere, Pcp Primary Care Provider Unavailabl e Reason for Visit * Reason Comments Med Refill Encounter Details Date Type Department Care Team (Late st Contact Info) Description 04/10/2024 Refill Department of Ophthalmology in [place], [place] [address] [place] [phone] Kenya Garza M.D. [address] [place] [phone] Med Refill Social History Tobacco Use Types Packs/Day Years Used Date Smoking Tobacco: Light Smoker Cigarettes 0.5 44.3 Started: 02/26/1980 Smokeless Tobacco: Never Comments:On again off again Alcohol Use Standard Drinks/Week Comments Yes 0 (1 standard drink = 0.6 oz pur e alcohol) [facility] Utilities Answer Date Recorded In the past 12 months has [employer], gas, oil, or water [employer] threatened to shut off services in your home? No 11/05/2023 Social Connection and Isolation Panel [NHANES] A nswer Date Recorded In a typical week, how many times do you talk on the phone with family, friends, or neighbors? Once a week 06/27/2020 How often do you get together with friends or re latives? Never 06/27/2020 How often do you attend episcopal or moravian serv ices? Never 06/27/2020 Do [...] medical care, and heating? Somewhat hard 06/27/2020 [facility] [place] of Occupat ional Health - Occupational Stress [...] your living situation today? I have a [facility] place to live 11/05/2023 Education Answer [...] Ancillary Procedure Department of Ophthalmology in [place], [place] [address] [place] [phone] Prakash Graham M.D. [address] [place] [phone] 06/09/2024 10:00 AM CDT Office Visit Department of Ophthalmology in [place], [place] [address] [place] [phone] Prakash Graham M.D. [address] [place] [phone] 07/16/2024 8:45 AM CDT Ancillary Procedure Department of Ophthalmology in [place], [place] [address] [place] [phone] Prakash Graham M.D. [address] [place] [phone] 07/16/2024 9:15 AM CDT Ancillary Procedure Department of Ophthalmology in [place], [place] [address] [place] [phone] Prakash Graham M.D. [address] [place] [phone] 07/16/2024 9:30 AM CDT Office Visit Department of Ophthalmology in [place], [place] [address] [place] [phone] Kenya Garza M.D. [address] [place] [phone] 07/16/2024 12:45 PM CDT Office Visit Department of Ophthalmology in [place], [place] [address] [place] [phone] Prakash Graham M.D. [address] [place] [phone] documented as of this encounter Visit Diagnoses Not on filedocumented in this encounter Care Teams Planner Intern Relationship Specialty Start Date End Date Elsewhere, Pcp PCP - General Internal Medicine 05/29/19 documented as of this encounter
--- OUTSIDE RECORDS SUMMARY | 2024-06-02 14:32 | XMS_ITS | Encounter Summary ---
Author Organization [facility] Address [address] [place] [address] Care Team Providers Care Bunch Trimmer Mold Name Role Phone Elsewhere, Pcp Primary Care Provider Unavailabl e Reason for Visit * Outpatient (Routine) - Closed Specialty Diagnoses / Procedures Referred By Apolinar t Referred To Contact Ophthalmology Renaldo Hawk M.D. [address] [place] [phone] Prakash Graham M.D. [address] [place] [phone] Referral ID Status Reason Start Date Expiration Date Visits Re quested Visits Authorized [id number] Closed 05/17/2024 11/16/2025 1 1 Encounter Details Date Type Department Care Team (Latest Contact Info) Description 05/26/2024 9:45 AM CDT Office Visit Department of Ophthalmology in [place], [place] [address] [place] [phone] Prakash Graham M.D. [address] [place] [phone] Necrosis Retinal Acute Right (Primary Dx) Social History Tobacco Use Types Packs/Day Years Used Date Smoking Tobacco: Former Cigarettes 0.7 70.4 0 03/28/1975 - 01/09/2022 Smokeless Tobacco: Never Comments:On again off again Alcohol Use Standard Drinks/Week Comments Yes 5 (1 standard drink = 0.6 oz pur e alcohol) occasional [facility] Utilities Answer Date Recorded In the past 12 months has th e electric, gas, oil, or water [employer] threatened to shut off services in your home? No 11/05/2023 Social Connection and Isolation Panel [NHANES] A nswer Date Recorded In a typical week, how many times do you talk on the phone with family, friends, or neighbors? Once a week 06/27/2020 How often do you get together with friends or re latives? Never 06/27/2020 How often do you attend methodist or lutheran serv ices? Never 06/27/2020 Do [...] Somewhat hard 06/27/2020 [facility] of Occupat ional [facility] - Occupational Stress Questionnaire [...] Ancillary Procedure Department of Ophthalmology in [address] [phone] Prakash Graham M.D. [address] [place] [phone] 06/09/2024 10:00 AM CDT Office Visit Department of Ophthalmology in [address] [phone] Prakash Graham M.D. [address] [place] [phone] 07/16/2024 8:45 AM CDT Ancillary Procedure Department of Ophthalmology in [address] [phone] Prakash Graham M.D. [address] [place] [phone] 07/16/2024 9:15 AM CDT Ancillary Procedure Department of Ophthalmology in [place], [place] [address] [place] [phone] Prakash Graham M.D. [address] [place] [phone] 07/16/2024 9:30 AM CDT Office Visit Department of Ophthalmology in [place], [place] [address] [place] [phone] Kenya Garza M.D. [address] [place] [phone] 07/16/2024 12:45 PM CDT Office Visit Department of Ophthalmology in [place], [place] [address] [place] [phone] Prakash Graham M.D. [address] [place] [phone] documented as of this encounter Visit Diagnoses Diagnosis Necrosis Retinal Acute Right- Primary documented in this encounter Care Teams Bunch Trimmer Mold Relationship Specialty Start Date End Date Elsewhere, Pcp PCP - General Internal Medicine 05/29/19 documented as of this encounter
--- OUTSIDE RECORDS SUMMARY | 2024-06-02 14:32 | XMS_ITS | Encounter Summary ---
Author Organization [facility] Address [address] [place] [address] Care Team Providers Care Circus Agent Name Role Phone Elsewhere, Pcp Primary Care Provider Unavailabl e Encounter Details Date Type Department Care Team (Latest Contact Info) Description 05/20/2024 Clinical Communication Department of Ophthalmology in [place], [place] [address] [place] [address] Renaldo Hawk M.D. [address] [place] [address] Social History Tobacco Use Types Packs/Day Years Used Date Smoking Tobacco: Former Cigarettes 0.7 70.4 0 03/28/1975 - 01/09/2022 Smokeless Tobacco: Never Comments:On again off again Alcohol Use Standard Drinks/Week Comments Yes 5 (1 standard drink = 0.6 oz pur e alcohol) occasional [facility] Utilities Answer Date Recorded In the past 12 months has [employer], gas, oil, or water [employer] threatened to shut off services in your home? No 11/05/2023 Social Connection and Isolation Panel [NHANES] A nswer Date Recorded In a typical week, how many times do you talk on the phone with family, friends, or neighbors? Once a week 06/27/2020 How often do you get together with friends or re latives? Never 06/27/2020 How often do you attend jain or episcopalian serv ices? Never 06/27/2020 Do [...] and heating? Somewhat hard 06/27/2020 [facility] of Occupat ional Health - Occupational Stress [...] your living situation today? I have a [facility] place to live 11/05/2023 Education Answer Date [...] CDT Ancillary Procedure Department of Ophthalmology in [place], [place] [address] [place] [phone] Prakash Graham M.D. [address] [place] [phone] 06/09/2024 10:00 AM CDT Office Visit Department of Ophthalmology in [place], [place] [address] [place] [phone] Prakash Graham M.D. [address] [place] [phone] 07/16/2024 8:45 AM CDT Ancillary Procedure Department of Ophthalmology in [place], [place] [address] [place] [phone] Prakash Graham M.D. [address] [place] [phone] 07/16/2024 9:15 AM CDT Ancillary Procedure Department of Ophthalmology in [place], [place] [address] [place] [phone] Prakash Graham M.D. [address] [place] [phone] 07/16/2024 9:30 AM CDT Office Visit Department of Ophthalmology in [place], [place] [address] [place] [phone] Kenya Garza M.D. [address] [place] [phone] 07/16/2024 12:45 PM CDT Office Visit Department of Ophthalmology in [place], [place] [address] [place] [phone] Prakash Graham M.D. [address] [place] [phone] documented as of this encounter Visit Diagnoses Not on filedocumented in this encounter Care Teams Circus Agent Relationship Specialty Start Date End Date Elsewhere, Pcp PCP - General Internal Medicine 05/29/19 documented as of this encounter
--- OUTSIDE RECORDS SUMMARY | 2024-06-02 14:32 | XMS_ITS | Encounter Summary ---
Author Organization [facility] Address [address] [place] [address] Care Team Providers Care Telephone Interviewer Name Role Phone Elsewhere, Pcp Primary Care Provider Unavailabl e Encounter Details Date Type Department Care Team (Latest Contact Info) Description 04/14/2024 2:10 PM CDT Ancillary Procedure Department of Ophthalmology in [place], [place] [address] [place] [address] Prakash Graham M.D. [address] [place] [address] Panuveitis Right; Necrosis Retinal Acute Right Social History Tobacco Use Types Packs/Day Years Used Date Smoking Tobacco: Former Cigarettes 0.7 70.4 0 03/28/1975 - 01/09/2022 Smokeless Tobacco: Never Comments:On again off again Alcohol Use Standard Drinks/Week Comments Yes 5 (1 standard drink = 0.6 oz pur e alcohol) occasional [facility] Utilities Answer Date Recorded In the past 12 months has [employer], gas, oil, or water [employer] threatened to shut off services in your home? No 11/05/2023 Social Connection and Isolation Panel [NHANES] A nswer Date Recorded In a typical week, how many times do you talk on the phone with family, friends, or neighbors? Once a week 06/27/2020 How often do you get together with friends or re latives? Never 06/27/2020 How often do you attend jew or methodist serv ices? Never 06/27/2020 Do [...] CDT Ancillary Procedure Department of Ophthalmology in [place], [place] [address] [place] [phone] Prakash Graham M.D. [address] [place] [phone] 06/09/2024 10:00 AM CDT Office Visit Department of Ophthalmology in [place], [place] [address] [place] [phone] Prakash Graham M.D. [address] [place] [phone] 07/16/2024 8:45 AM CDT Ancillary Procedure Department of Ophthalmology in [place], [place] [address] [place] [phone] Prakash Graham M.D. [address] [place] [phone] 07/16/2024 9:15 AM CDT Ancillary Procedure Department of Ophthalmology in [place], [place] [address] [place] [phone] Prakash Graham M.D. [address] [place] [phone] 07/16/2024 9:30 AM CDT Office Visit Department of Ophthalmology in [place], [place] [address] [place] [address] Kenya Garza M.D. [address] [place] [address] 07/16/2024 12:45 PM CDT Office Visit Department of Ophthalmology in [place], [place] [address] [place] [address] Prakash Graham M.D. [address] [place] [address] documented as of this encounter Procedures Procedure [...] Right documented in this encounter Care Teams Telephone Interviewer Relationship Specialty Start Date End Date Elsewhere, Pcp PCP - General Internal Medicine 05/29/19 documented as of this encounter
--- OUTSIDE RECORDS SUMMARY | 2024-06-02 14:32 | XMS_ITS | Encounter Summary ---
Author Organization [facility] Address [address] [place] [address] Care Team Providers Care Material Control Specialist Name Role Phone Elsewhere, Pcp Primary Care Provider Unavailabl e Reason for Referral * Outpatient (Routine) - Closed Specialty Diagnoses / Procedures Referred By Apolinar t Referred To Contact Ophthalmology Renaldo Hawk M.D. [address] [place] [phone] Prakash Graham M.D. [address] [place] [phone] Referral ID Status Reason Start Date Expiration Date Visits Re quested Visits Authorized [id number] Closed 05/17/2024 11/16/2025 1 1 Scheduling Instructions VTD both eyes Can use urgent slot Encounter Details Date Type Department Care Team (Latest Contact Info) Description 05/07/2024 2:00 PM CDT Office Visit Department of Ophthalmology in [place], [place] [address] [place] [phone] Renaldo Hawk M.D. [address] [place] [phone] Necrosis Retinal Acute Right (Primary Dx); [...] 0.6 oz pur e alcohol) occasional [facility] Utilities Answer Date Recorded In [...] How often do you attend tenriism or orthodoxy serv ices? Never 06/27/2020 Do [...] medical care, and heating? Somewhat hard 06/27/2020 [facility] [place] of Occupat ional Health - Occupational Stress [...] CDT Ancillary Procedure Department of Ophthalmology in [place], [place] [address] [place] [phone] Prakash Graham M.D. [address] [place] [phone] 06/09/2024 10:00 AM CDT Office Visit Department of Ophthalmology in [place], [place] [address] [place] [phone] Prakash Graham M.D. [address] [place] [phone] 07/16/2024 8:45 AM CDT Ancillary Procedure Department of Ophthalmology in [place], [place] [address] [place] [phone] Prakash Graham M.D. [address] [place] [phone] 07/16/2024 9:15 AM CDT Ancillary Procedure Department of Ophthalmology in [place], [place] [address] [place] [phone] Prakash Graham M.D. [address] [place] [phone] 07/16/2024 9:30 AM CDT Office Visit Department of Ophthalmology in [place], [place] [address] [place] [phone] Kenya Garza M.D. [address] [place] [phone] 07/16/2024 12:45 PM CDT Office Visit Department of Ophthalmology in [place], [place] [address] [place] [phone] Prakash Graham M.D. 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
--- OUTSIDE RECORDS SUMMARY | 2024-06-02 14:32 | XMS_ITS | Encounter Summary ---
Author Organization [facility] Address [address] [place] [address] Care Team Providers Care Customs Guard Name Role Phone Elsewhere, Pcp Primary Care Provider Unavailabl e Reason for Visit * Outpatient (Routine) - Closed Specialty Diagnoses / Procedures Referred By Contmuriel t Referred To Contact Anesthesiology Diagnoses Panuveitis Right Necrosis Retinal Acute Right Prakash Graham M.D. [address] [place] [phone] [facility] Referral ID Status Reason Start Date Expiration Date Visits Re quested Visits Authorized [id number] Closed 03/13/2024 09/12/2025 1 1 Encounter Details Date Type Department Care Team (Latest Contact Info) Description 04/14/2024 11:00 AM CDT Comprehensive Visit Preoperative Evaluation Center in [place], [place] [address] [place] [phone] Prakash Graham M.D. [address] [place] [phone] Franck Maldonado M.D. [address] [place] [phone] Panuveitis Right; Necrosis Retinal Acute Right Social [...] How often do you attend sikh or adventist serv ices? Never 06/27/2020 Do [...] medical care, and heating? Somewhat hard 06/27/2020 [facility] of Occupat ional Health - Occupational Stress [...] / PLAN 68 yo F (BMI 26) [facility] prior to outpatient R vitrectomy w/ Dr. Graham at [facility] on 04/27/2024. # Panuveitis with [...] (Metoprolol). # COPD (Anoro Ellipta). # Former [facility] cigarette smoker, quit 2021. # H/o interstitial pneumonitis related to low-dose MTX with subsequent steroid treatment since hospitalization at [facility] in August 2023. # Bullous Pemphigoid (15 [...] Get Ready for Your Surgery or Procedure: [facility] 3596-07 rev 0124. Written and [...] CDT Ancillary Procedure Department of Ophthalmology in [place], [place] [address] [place] [address] Prakash Graham M.D. [address] [place] [phone] 06/09/2024 10:00 AM CDT Office Visit Department of Ophthalmology in [place], [place] [address] [place] [phone] Prakash Graham M.D. [address] [place] [phone] 07/16/2024 8:45 AM CDT Ancillary Procedure Department of Ophthalmology in [place], [place] [address] [place] [phone] Prakash Graham M.D. [address] [place] [phone] 07/16/2024 9:15 AM CDT Ancillary Procedure Department of Ophthalmology in [place], [place] [address] [place] [phone] Prakash Graham M.D. [address] [place] [phone] 07/16/2024 9:30 AM CDT Office Visit Department of Ophthalmology in [place], [place] [address] [place] [phone] Kenya Garza M.D. [address] [place] [phone] 07/16/2024 12:45 PM CDT Office Visit Department of Ophthalmology in [place], [place] [address] [place] [phone] Prakash Graham M.D. [address] [place] [phone] documented as of this encounter Visit Diagnoses Diagnosis Panuveitis Right Necrosis Retinal Acute Right documented in this encounter Care Teams Customs Guard Relationship Specialty Start Date End Date Elsewhere, Pcp PCP - General Internal Medicine 05/29/19 documented as of this encounter
--- OUTSIDE RECORDS SUMMARY | 2024-06-02 14:33 | XMS_ITS | Encounter Summary ---
Author Organization [facility] Address [address] [place] [address] Care Team Providers Care Grave Digger Name Role Phone Elsewhere, Pcp Primary Care Provider Unavailabl e Reason for Referral * Outpatient (Routine) - Closed Specialty Diagnoses / Procedures Referred By Apolinar lopze Referred To Contact Ophthalmology Diagnoses Panuveitis Right Necrosis Retinal Acute Right Kenya Garza M.D. 200 [place] [address] [facility] Referral ID Status Reason Start Date Expiration Date Visits Re quested Visits Authorized [id number] Closed 02/20/2024 08/21/2025 1 1 Reason for Visit * Outpatient (Routine) - Closed Specialty Diagnoses / Procedures Referred By Apolinar lopez Referred To Contact Ophthalmology Diagnoses Panuveitis Right Necrosis Retinal Acute Right Kenya Garza M.D. 200 [place] [address] [facility] Referral ID Status Reason Start Date Expiration Date Visits Re quested Visits Authorized [id number] Closed 01/23/2024 07/24/2025 1 1 Encounter Details Date Type Department Care Team (Latest Contact Info) Description 02/20/2024 11:15 AM CDT Office Visit Department of Ophthalmology in [place], [place] [address] [place] [phone] Kenya Garza M.D. [address] [place] [phone] Panuveitis Right (Primary Dx); Necrosis Retinal Acute Right Social History Tobacco Use Types Packs/Day Years Used Date Smoking Tobacco: Light Smoker Cigarettes 0.5 44.3 Started: 02/26/1980 Smokeless Tobacco: Never Comments:On again off again Alcohol Use Standard Drinks/Week Comments Yes 0 (1 standard drink = 0.6 oz pur e alcohol) [facility] Utilities Answer Date Recorded In the past 12 months has e [employer], gas, oil, or water [employer] threatened to shut off services in your home? No 11/05/2023 Social Connection and Isolation Panel [NHANES] A nswer Date Recorded In a typical week, how many times do you talk on the phone with family, friends, or neighbors? Once a week 06/27/2020 How often do you get together with friends or re latives? Never 06/27/2020 How often do you attend spiritism or judaism serv ices? Never 06/27/2020 Do [...] care, and heating? Somewhat hard 06/27/2020 [facility] [place] of Occupat ional Health - Occupational Stress [...] your living situation today? I have a [facility] place to live 11/05/2023 Education [...] with tobramycin drops without improvement. She saw gold miner blasting Dr. Daisy Ivy on 10/23/23. [facility] [...] has not been able to see her temperer oncologist recently because every time she went to an appointment she was sent to the emergency room due to elevated blood pressure. In August 2023, she was sent from an infusion center to [facility] emergency department where shewas found to have [...] three times in the past three months: [place] (09/02/23 for hypercalcemiaand acute kidney injury - had CT chest/abdomen/pelvis to assess for malignancy), [facility] in [facility] again. Each time she saw her [...] plans to monitor. (Her oncologist is at [facility] MEDICATIONS Prednisolone every hour [...] CDT Ancillary Procedure Department of Ophthalmology in [place], [place] [address] [place] [phone] Prakash Graham M.D. [address] [place] [phone] 06/09/2024 10:00 AM CDT Office Visit Department of Ophthalmology in [place], [place] [address] [place] [phone] Prakash Graham M.D. [address] [place] [phone] 07/16/2024 8:45 AM CDT Ancillary Procedure Department of Ophthalmology in [place], [place] [address] [place] [phone] Prakash Graham M.D. [address] [place] [phone] 07/16/2024 9:15 AM CDT Ancillary Procedure Department of Ophthalmology in [place], [place] [address] [place] [phone] Prakash Graham M.D. [address] [place] [phone] 07/16/2024 9:30 AM CDT Office Visit Department of Ophthalmology in [place], [place] [address] [place] [phone] Kenya Garza M.D. [address] [place] [phone] 07/16/2024 12:45 PM CDT Office Visit Department of Ophthalmology in [place], [place] [address] [place] [phone] Prakash Grahma M.D. [address] [place] [phone] Scheduled Referrals Name Type Priority Associated Diagnoses [...] [facility] Performing Organization Address [facility] Co de Phone Number OPHTHALMOLGY NON-IMAGING [...] [facility] Performing Organization Address [facility] Co de Phone Number OPHTHALMOLGY NON-IMAGING ORDERS documented in this encounter Visit Diagnoses Diagnosis Panuveitis Right- Primary Necrosis Retinal Acute Right Panuveitis Right Necrosis Retinal Acute Right Panuveitis Right Necrosis Retinal Acute Right documented in this encounter Care Teams Grave Digger Relationship Specialty Start Date End Date Elsewhere, Pcp PCP - General Internal Medicine 05/29/19 documented as of this encounter
--- OUTSIDE RECORDS SUMMARY | 2024-06-02 14:33 | XMS_ITS | Encounter Summary ---
Author Organization [facility] Address [address] [place] [address] Care Team Providers Care Ion Exchange Operator Name Role Phone Elsewhere, Pcp Primary Care Provider Unavailabl e Encounter Details Date Type Department Care Team (Late st Contact Info) Description 03/13/2024 Orders Only Department of Ophthalmology in [place], [place] [address] [place] [address] Jean Claude Newsome, C.O.A. Necrosis Retinal Acute Right (Primary Dx) Social History Tobacco Use Types Packs/Day Years Used Date Smoking Tobacco: Light Smoker Cigarettes 0.5 44.3 Started: 02/26/1980 Smokeless Tobacco: Never Comments:On again off again Alcohol Use Standard Drinks/Week Comments Yes 0 (1 standard drink = 0.6 oz pur e alcohol) [facility] Utilities Answer Date Recorded In the past 12 months has [employer], gas, oil, or water company threatened [...] medical care, and heating? Somewhat hard 06/27/2020 [facility] [place] of Occupat ional Health - Occupational Stress [...] CDT Ancillary Procedure Department of Ophthalmology in [place], [place] [address] [place] [phone] Prakash Graham M.D. [address] [place] [phone] 06/09/2024 10:00 AM CDT Office Visit Department of Ophthalmology in [place], [place] [address] [place] [phone] Prakash Graham M.D. [address] [place] [phone] 07/16/2024 8:45 AM CDT Ancillary Procedure Department of Ophthalmology in [place], [place] [address] [place] [phone] Prakash Graham M.D. [address] [place] [phone] 07/16/2024 9:15 AM CDT Ancillary Procedure Department of Ophthalmology in [place], [place] [address] [place] [phone] Prakash Graham M.D. [address] [place] [phone] 07/16/2024 9:30 AM CDT Office Visit Department of Ophthalmology in [place], [place] [address] [place] [address] Kenya Garza M.D. [address] [place] [phone] 07/16/2024 12:45 PM CDT Office Visit Department of Ophthalmology in [place], [place] [address] [place] [address] Prakash Graham M.D. [address] [place] [phone] documented as of this encounter Visit Diagnoses Diagnosis Necrosis Retinal Acute Right- Primary documented in this encounter Care Teams Ion Exchange Operator Relationship Specialty Start Date End Date Elsewhere, Pcp PCP - General Internal Medicine 05/29/19 documented as of this encounter
--- OUTSIDE RECORDS SUMMARY | 2024-06-02 14:33 | XMS_ITS | Encounter Summary ---
Author Organization [facility] Address [address] [place] [phone] Care Team Providers Care Plastics And Composites Inspector Name Role Phone Elsewhere, Pcp Primary Care Provider Unavailabl e Reason for Visit * Reason Onset Date Comments Outside hospitalization and medications 01/10/20 Encounter Details Date Type Department Care Team (Latest Contact Info) Description 01/10/2024 Clinical Communication Department of Ophthalmology in [place], [place] [address] [place] [phone] Kenya Garza M.D. [address] [place] [phone] Outside hospitalization and medications Social History Tobacco Use Types Packs/Day Years Used Date Smoking Tobacco: Light Smoker Cigarettes 0.5 44.3 Started: 02/26/1980 Smokeless Tobacco: Never Comments:On again off again Alcohol Use Standard Drinks/Week Comments Yes 0 (1 standard drink = 0.6 oz pur e alcohol) [facility] Utilities Answer Date Recorded In the past 12 months has [employer], gas, oil, or water [employer] threatened to shut off services in your home? No 11/05/2023 Social Connection and Isolation Panel [NHANES] A nswer Date Recorded In a typical week, how many times do you talk on the phone with family, friends, or neighbors? Once a week 06/27/2020 How often do you get together with friends or re latives? Never 06/27/2020 How often do you attend tenriism or jehovah's witness serv ices? Never 06/27/2020 [...] medical care, and heating? Somewhat hard 06/27/2020 [facility] of Occupat ional Health - Occupational [...] CDT Ancillary Procedure Department of Ophthalmology in [place], [place] [address] [place] [phone] Prakash Graham M.D. [address] [place] [phone] 06/09/2024 10:00 AM CDT Office Visit Department of Ophthalmology in [place], [place] [address] [place] [phone] Prakash Graham M.D. [address] [place] [phone] 07/16/2024 8:45 AM CDT Ancillary Procedure Department of Ophthalmology in [place], [place] [address] [place] [phone] Prakash Graham M.D. [address] [place] [phone] 07/16/2024 9:15 AM CDT Ancillary Procedure Department of Ophthalmology in [address] [phone] Prakash Graham M.D. [address] [place] [phone] 07/16/2024 9:30 AM CDT Office Visit Department of Ophthalmology in [address] [phone] Kenya Garza M.D. [address] [place] [phone] 07/16/2024 12:45 PM CDT Office Visit Department of Ophthalmology in [address] [phone] Prakash Graham M.D. [address] [place] [phone] documented as of this encounter Visit Diagnoses Not on filedocumented in this encounter Care Teams Plastics And Composites Inspector Relationship Specialty Start Date End Date Elsewhere, Pcp PCP - General Internal Medicine 05/29/19 documented as of this encounter
--- OUTSIDE RECORDS SUMMARY | 2024-06-02 14:33 | XMS_ITS | Encounter Summary ---
Author Organization [facility] Address [address] [place] [address] Care Team Providers Care Physicist Cryogenics Name Role Phone Elsewhere, Pcp Primary Care Provider Unavailabl e Reason for Referral * Outpatient (Routine) - Authorized Specialty Diagnoses / Procedures Referred By Contac t Referred To Contact Ophthalmology Prakash Graham M.D. [address] [place] [phone] [facility] Referral ID Status Reason Start Date Expiration Date V isits Requested Visits Authorized [id number] Authorized 03/13/2024 09/12/2025 1 1 Scheduling Instructions 1 MO PO Right Eye, DILATE / OCT OU * Outpatient (Routine) - Authorized Specialty Diagnoses / Procedures Referred By Contac t Referred To Contact Ophthalmology Prakash Graham M.D. [address] [place] [address] [facility] Referral ID Status Reason Start Date Expiration Date V isits Requested Visits Authorized [id number] Authorized 03/13/2024 09/12/2025 1 1 Scheduling Instructions 1 WK PO Right Eye, DILATE OD * Outpatient (Routine) - Closed Specialty Diagnoses / Procedures Referred By Contac t Referred To Contact Ophthalmology Prakash Graham M.D. [address] [place] [address] [facility] Referral ID Status Reason Start Date Expiration Date Visits Re quested Visits Authorized [id number] Closed 03/13/2024 09/12/2025 1 1 Scheduling Instructions 1 DAY PO Right Eye * Outpatient (Routine) - Closed Specialty Diagnoses / Procedures Referred By Apolinar lopez Referred To Contact Anesthesiology Diagnoses Panuveitis Right Necrosis Retinal Acute Right Prakash Graham M.D. [address] [place] [address] [facility] Referral ID Status Reason Start Date Expiration Date Visits Re quested Visits Authorized [id number] Closed 03/13/2024 09/12/2025 1 1 * Outpatient (Routine) - Canceled Specialty Diagnoses / Procedures Referred By Apolinar lopez Referred To Contact Diagnoses Panuveitis Right Necrosis Retinal Acute Right Procedures Intravitreal Injection, Pharmacologic Agent - OD - Right Eye Prakash Graham M.D. [address] [place] [address] [facility] Referral ID Status Reason Start Date Expiration Date V isits Requested Visits Authorized [id number] Canceled 03/13/2024 03/13/2025 1 1 Encounter Details Date Type Department Care Team (Latest Contact Info) Description 03/13/2024 1:00 PM CDT Office Visit Department of Ophthalmology in [place], [place] [address] [place] [phone] Prakash Graham M.D. [address] [place] [phone] Panuveitis Right (Primary Dx); Necrosis Retinal Acute Right Social History Tobacco Use Types Packs/Day Years Used Date Smoking Tobacco: Light Smoker Cigarettes 0.5 44.3 Started: 02/26/1980 Smokeless Tobacco: Never Comments:On again off again Alcohol Use Standard Drinks/Week Comments Yes 0 (1 standard drink = 0.6 oz pur e alcohol) [facility] Utilities Answer Date Recorded In the [...] How often do you attend yarsanism or uatsdin serv ices? Never 06/27/2020 Do [...] Somewhat hard 06/27/2020 [facility] [place] of Occupat ional Health - Occupational Stress [...] CDT Ancillary Procedure Department of Ophthalmology in [place], [place] [address] [place] [phone] Prakash Graham M.D. [address] [place] [phone] 06/09/2024 10:00 AM CDT Office Visit Department of Ophthalmology in [place], [place] [address] [place] [phone] Prakash Graham M.D. [address] [place] [phone] 07/16/2024 8:45 AM CDT Ancillary Procedure Department of Ophthalmology in [place], [place] [address] [place] [phone] Prakash Graham M.D. [address] [place] [phone] 07/16/2024 9:15 AM CDT Ancillary Procedure Department of Ophthalmology in [place], [place] [address] [place] [phone] Prakash Graham M.D. [address] [place] [phone] 07/16/2024 9:30 AM CDT Office Visit Department of Ophthalmology in [place], [place] [address] [place] [phone] Kenya Garza M.D. [address] [place] [phone] 07/16/2024 12:45 PM CDT Office Visit Department of Ophthalmology in [place], [place] [address] [place] [address] Prakash Graham M.D. [address] [place] [phone] Scheduled Orders Name Type Priority Associated Diagnoses Orde r Schedule Optical Coherence Tomography - Macula/Retina - OU - Both Eyes Ophthalmology Routine Panuveitis Right Necrosis Retinal Acute Right Expected: 06/02/2024, Expires: 06/13/2025 Scheduled Referrals Name Type Priority Associated Diagnoses [...] Right documented in this encounter Care Teams Physicist Cryogenics Relationship Specialty Start Date End Date Elsewhere, Pcp PCP - General Internal Medicine 05/29/19 documented as of this encounter
--- OUTSIDE RECORDS SUMMARY | 2024-06-02 14:33 | XMS_ITS | Encounter Summary ---
Author Organization [facility] Address [address] [place] [address] Care Team Providers Care Balloon Artist Name Role Phone Elsewhere, Pcp Primary Care Provider Unavailabl e Encounter Details Date Type Department Care Team (Latest Contact Info) Description 03/13/2024 8:00 AM CDT Ancillary Procedure Department of Ophthalmology in [place], [place] [address] [place] [address] Kenya Garza M.D. [address] [place] [address] Panuveitis Right; Necrosis Retinal Acute Right Social [...] months has [employer], gas, oil, or water [employer] threatened to shut off services in your home? No 11/05/2023 Social Connection and Isolation Panel [NHANES] A nswer Date Recorded In a typical week, how many times do you talk on the phone with family, friends, or neighbors? Once a week 06/27/2020 How often do you get together with friends or re latives? Never 06/27/2020 How often do you attend hindu or lutheran serv ices? Never 06/27/2020 Do [...] and heating? Somewhat hard 06/27/2020 [facility] of Occupat ional Health - Occupational [...] CDT Ancillary Procedure Department of Ophthalmology in [place], [place] [address] [place] [phone] Prakash Graham M.D. [address] [place] [phone] 06/09/2024 10:00 AM CDT Office Visit Department of Ophthalmology in [place], [place] [address] [place] [phone] Prakash Graham M.D. [address] [place] [phone] 07/16/2024 8:45 AM CDT Ancillary Procedure Department of Ophthalmology in [place], [place] [address] [place] [phone] Prakash Graham M.D. [address] [place] [phone] 07/16/2024 9:15 AM CDT Ancillary Procedure Department of Ophthalmology in [place], [place] [address] [place] [phone] Prakash Graham M.D. [address] [place] [phone] 07/16/2024 9:30 AM CDT Office Visit Department of Ophthalmology in [place], [place] [address] [place] [address] Kenya Garza M.D. [address] [place] [address] 07/16/2024 12:45 PM CDT Office Visit Department of Ophthalmology in [place], [place] [address] [place] [address] Prakash Graham M.D. [address] [place] [phone] documented as of this encounter Procedures Procedure [...] Right documented in this encounter Care Teams Balloon Artist Relationship Specialty Start Date End Date Elsewhere, Pcp PCP - General Internal Medicine 05/29/19 documented as of this encounter
--- OUTSIDE RECORDS SUMMARY | 2024-06-02 14:33 | XMS_ITS | Encounter Summary ---
Author Organization [facility] Address [address] [place] [address] Care Team Providers Care Sports Medicine Trainer Name Role Phone Elsewhere, Pcp Primary Care Provider Unavailabl e Reason for Visit * Outpatient (Routine) - Closed Specialty Diagnoses / Procedures Referred By Contmuriel t Referred To Contact Neurology Piter Baez M.D. [address] [place] [phone] [facility] Referral ID Status Reason Start Date Expiration Date Visits Re quested Visits Authorized [id number] Closed 02/20/2024 08/21/2025 1 1 Encounter Details Date Type Department Care Team (Latest Contact Info) Description 02/25/2024 4:30 PM CDT Telemedicine Department of Neurology in [place], [place] [address] [place] [phone] Piter Baez M.D. [address] [place] [phone] Posterior Reversible Encephalopathy Syndrome (Primary Dx) Social History Tobacco Use Types Packs/Day Years Used Date Smoking Tobacco: Light Smoker Cigarettes 0.5 44.3 Started: 02/26/1980 Smokeless Tobacco: Never Comments:On again off again Alcohol Use Standard Drinks/Week Comments Yes 0 (1 standard drink = 0.6 oz pur e alcohol) [facility] Utilities Answer Date Recorded [...] How often do you attend advent or congregational serv ices? Never 06/27/2020 Do [...] heating? Somewhat hard 06/27/2020 [facility] [place] of Occupat ional Health - Occupational Stress [...] of this encounter Progress Notes * Piter Baze M.D. - 02/25/2024 4:30 PM CDT SUBJECTIVE CHIEF COMPLAINT / REASON FOR VISIT Alexandar Dixon is a 68 y.o. female who returns today for follow-up of 1. Posterior Reversible Encephalopathy Syndrome Consult conducted via real-time audio/video technology by Piter Baez M.D. in [facility] to the patient at home. RESULTS REVIEW [...] CDT Ancillary Procedure Department of Ophthalmology in [place], [place] [address] [place] [phone] Prakash Graham M.D. [address] [place] [phone] 06/09/2024 10:00 AM CDT Office Visit Department of Ophthalmology in [place], [place] [address] [place] [phone] Prakash Graham M.D. [address] [place] [phone] 07/16/2024 8:45 AM CDT Ancillary Procedure Department of Ophthalmology in [place], [place] [address] [place] [phone] Prakash Graham M.D. [address] [place] [phone] 07/16/2024 9:15 AM CDT Ancillary Procedure Department of Ophthalmology in [place], [place] [address] [place] [address] Prakash Graham M.D. [address] [place] [phone] 07/16/2024 9:30 AM CDT Office Visit Department of Ophthalmology in [place], [place] [address] [place] [phone] Kenya Garza M.D. [address] [place] [phone] 07/16/2024 12:45 PM CDT Office Visit Department of Ophthalmology in [place], [place] [address] [place] [phone] Prakash Graham M.D. [address] [place] [phone] documented as of this encounter Visit Diagnoses Diagnosis Posterior Reversible Encephalopathy Syndrome- Primary documented in this encounter Care Teams Sports Medicine Trainer Relationship Specialty Start Date End Date Elsewhere, Pcp PCP - General Internal Medicine 05/29/19 documented as of this encounter
--- OUTSIDE RECORDS SUMMARY | 2024-06-02 14:33 | XMS_ITS | Encounter Summary ---
Author Organization [facility] Address [address] [place] [address] Care Team Providers Care Representative Personal Service Name Role Phone Elsewhere, Pcp Primary Care Provider Unavailabl e Reason for Referral * Outpatient (Routine) - Closed Specialty Diagnoses / Procedures Referred By Apolinar t Referred To Contact Ophthalmology Prakash Graham M.D. [address] [place] [address] [facility] Referral ID Status Reason Start Date Expiration Date Visits Re quested Visits Authorized [id number] Closed 03/16/2024 09/15/2025 1 1 Encounter Details Date Type Department Care Team (Late st Contact Info) Description 03/16/2024 Orders Only Department of Ophthalmology in [place], [place] [address] [place] [phone] Jean Claude Newsome, C.O.A. Panuveitis Right (Primary Dx); Necrosis Retinal Acute Right Social History Tobacco Use Types Packs/Day Years Used Date Smoking Tobacco: Light Smoker Cigarettes 0.5 44.3 Started: 02/26/1980 Smokeless Tobacco: Never Comments:On again off again Alcohol Use Standard Drinks/Week Comments Yes 0 (1 standard drink = 0.6 oz pur e alcohol) [facility] Utilities Answer Date Recorded In the [...] How often do you attend samaritan or anglican serv ices? Never 06/27/2020 Do [...] and heating? Somewhat hard 06/27/2020 [facility] [place] of Occupat ional Health - Occupational Stress [...] your living situation today? I have a [facility] place to live 11/05/2023 Education [...] CDT Ancillary Procedure Department of Ophthalmology in [place], [place] [address] [place] [phone] Prakash Graham M.D. [address] [place] [phone] 06/09/2024 10:00 AM CDT Office Visit Department of Ophthalmology in [place], [place] [address] [place] [phone] Prakash Graham M.D. [address] [place] [phone] 07/16/2024 8:45 AM CDT Ancillary Procedure Department of Ophthalmology in [place], [place] [address] [place] [phone] Prakash Graham M.D. [address] [place] [phone] 07/16/2024 9:15 AM CDT Ancillary Procedure Department of Ophthalmology in [place], [place] [address] [place] [phone] Prakash Graham M.D. [address] [place] [phone] 07/16/2024 9:30 AM CDT Office Visit Department of Ophthalmology in [place], [place] [address] [place] [phone] Kenya Garza M.D. [address] [place] [phone] 07/16/2024 12:45 PM CDT Office Visit Department of Ophthalmology in [place], [place] [address] [place] [phone] Prakash Graham M.D. [address] [place] [phone] Scheduled Referrals Name Type Priority Associated Diagnoses [...] Right documented in this encounter Care Teams Representative Personal Service Relationship Specialty Start Date End Date Elsewhere, Pcp PCP - General Internal Medicine 05/29/19 documented as of this encounter
--- OUTSIDE RECORDS SUMMARY | 2024-06-02 14:33 | XMS_ITS | Encounter Summary ---
Author Organization [facility] Address [address] [place] [address] Care Team Providers Care Senior Backup Administrator Name Role Phone Elsewhere, Pcp Primary Care Provider Unavailabl e Encounter Details Date Type Department Care Team (Latest Contact Info) Description 03/11/2024 Clinical Communication Department of Ophthalmology in [place], [place] [address] [place] [address] Kenya Garza M.D. [address] [place] [address] Social History Tobacco Use Types Packs/Day Years Used Date Smoking Tobacco: Light Smoker Cigarettes 0.5 44.3 Started: 02/26/1980 Smokeless Tobacco: Never Comments:On again off again Alcohol Use Standard Drinks/Week Comments Yes 0 (1 standard drink = 0.6 oz pur e alcohol) [facility] Utilities Answer Date Recorded In the past 12 months has [employer], gas, oil, or water [employer] threatened to shut off services in your home? No 11/05/2023 Social Connection and Isolation Panel [NHANES] A nswer Date Recorded In a typical week, how many times do you talk on the phone with family, friends, or neighbors? Once a week 06/27/2020 How often do you get together with friends or re latives? Never 06/27/2020 How often do you attend uatsdin or anabaptism serv ices? Never 06/27/2020 Do [...] medical care, and heating? Somewhat hard 06/27/2020 [facility] of Occupat ional Health - [...] CDT Ancillary Procedure Department of Ophthalmology in [address] [phone] Prakash Graham M.D. [address] [place] [phone] 06/09/2024 10:00 AM CDT Office Visit Department of Ophthalmology in [address] [phone] Prakash Graham M.D. [address] [place] [phone] 07/16/2024 8:45 AM CDT Ancillary Procedure Department of Ophthalmology in [address] [phone] Prakash Graham M.D. [address] [place] [phone] 07/16/2024 9:15 AM CDT Ancillary Procedure Department of Ophthalmology in [place], [place] [address] [place] [phone] Prakash Graham M.D. [address] [place] [phone] 07/16/2024 9:30 AM CDT Office Visit Department of Ophthalmology in [place], [place] [address] [place] [address] Kenya Garza M.D. [address] [place] [phone] 07/16/2024 12:45 PM CDT Office Visit Department of Ophthalmology in [place], [place] [address] [place] [address] Prakash Graham M.D. [address] [place] [phone] documented as of this encounter Visit Diagnoses Not on filedocumented in this encounter Care Teams Senior Backup Administrator Relationship Specialty Start Date End Date Elsewhere, Pcp PCP - General Internal Medicine 05/29/19 documented as of this encounter
--- OUTSIDE RECORDS SUMMARY | 2024-06-02 14:33 | XMS_ITS | Encounter Summary ---
Author Organization [facility] Address [address] [place] [address] Care Team Providers Care Engineering Test Mechanic Name Role Phone Elsewhere, Pcp Primary [...] = 0.6 oz pur e alcohol) [facility] Utilities Answer Date Recorded In the past 12 months has [employer] electric, gas, oil, or water company [...] How often do you attend samaritan or bahai serv ices? Never 06/27/2020 Do [...] medical care, and heating? Somewhat hard 06/27/2020 [facility] - Occupational Stress Questionnaire Answer Date Recorded [...] CDT Ancillary Procedure Department of Ophthalmology in [place], [place] [address] [place] [phone] Prakash Graham M.D. [address] [place] [phone] 06/09/2024 10:00 AM CDT Office Visit Department of Ophthalmology in [place], [place] [address] [place] [phone] Prakash Graham M.D. [address] [place] [phone] 07/16/2024 8:45 AM CDT Ancillary Procedure Department of Ophthalmology in [place], [place] [address] [place] [phone] Prakash Graham M.D. [address] [place] [phone] 07/16/2024 9:15 AM CDT Ancillary Procedure Department of Ophthalmology in [address] [phone] Prakash Graham M.D. [address] [place] [phone] 07/16/2024 9:30 AM CDT Office Visit Department of Ophthalmology in [place], [place] [address] [place] [phone] Kenya Garza M.D. [address] [place] [phone] 07/16/2024 12:45 PM CDT Office Visit Department of Ophthalmology in [place], [place] [address] [place] [address] Prakash Grhaam M.D. [address] [place] [address] documented as of this encounter Visit Diagnoses Not on filedocumented in this encounter Care Teams Engineering Test Mechanic Relationship Specialty Start Date End Date Elsewhere, Pcp PCP - General Internal Medicine 05/29/19 documented as of this encounter
--- OUTSIDE RECORDS SUMMARY | 2024-06-02 14:33 | XMS_ITS | Encounter Summary ---
Author Organization [facility] Address [address] [place] [address] Care Team Providers Care Radio News Writer Name Role Phone Elsewhere, Pcp Primary Care Provider Unavailabl e Reason for Referral * MRI/CAT/PET Scan (Routine) - Closed Specialty Diagnoses / Procedures Referred By Apolinar lopez Referred To Contact Radiology Diagnoses Posterior Reversible Encephalopathy Syndrome Procedures MR Brain without and with IV Contrast Piter Baez M.D. 200 [place] [address] [facility] Referral ID Status Reason Start Date Expiration Date Visits Re quested Visits Authorized [id number] Closed 02/03/2024 10/27/2024 1 1 Reason for Visit * Reason Onset Date Comments Pre-visit Testing Orders 01/31/2024 Encounter Details Date Type Department Care Team (Latest Contact Info) Description 01/31/2024 Clinical Communication Department of Neurology in [place], [place] 200 [place] [phone] Piter Baez M.D. [address] [place] [phone] Pre-visit Testing Orders Social History Tobacco Use [...] How often do you attend caodaism or congregational serv ices? Never 06/27/2020 Do [...] heating? Somewhat hard 06/27/2020 [facility] [place] of Occupat ional Health - Occupational Stress [...] CDT Ancillary Procedure Department of Ophthalmology in [place], [place] [address] [place] [phone] Prakash Graham M.D. [address] [place] [phone] 06/09/2024 10:00 AM CDT Office Visit Department of Ophthalmology in [place], [place] [address] [place] [address] Prakash Graham M.D. [address] [place] [phone] 07/16/2024 8:45 AM CDT Ancillary Procedure Department of Ophthalmology in [place], [place] [address] [place] [phone] Prakash Graham M.D. [address] [place] [phone] 07/16/2024 9:15 AM CDT Ancillary Procedure Department of Ophthalmology in [place], [place] [address] [place] [phone] Prakash Graham M.D. [address] [place] [phone] 07/16/2024 9:30 AM CDT Office Visit Department of Ophthalmology in [place], [place] [address] [place] [phone] Kenya Garza M.D. [address] [place] [phone] 07/16/2024 12:45 PM CDT Office Visit Department of Ophthalmology in [place], [place] [address] [place] [phone] Prakash Graham M.D. [address] [place] [phone] documented as of this encounter Results * MR Brain without and with IV Contrast (02/20/2024 4:08 PM CDT) Anatomical Region Laterality Modality Head, Brain, Neuroradiology [facility], Neuroradiology [facility], Neuroradiology [facility] N/A Magnetic Resonance Impressions 02/21/2024 8:07 [...] Syndrome documented in this encounter Care Teams Radio News Writer Relationship Specialty Start Date End Date Elsewhere, Pcp PCP - General Internal Medicine 05/29/19 documented as of this encounter
--- OUTSIDE RECORDS SUMMARY | 2024-06-02 14:33 | XMS_ITS | Encounter Summary ---
Author Organization [facility] Address [address] [place] [address] Care Team Providers Care Deicer Repairer Name Role Phone Elsewhere, Pcp Primary Care Provider Unavailabl e Encounter Details Date Type Department Care Team (Latest Contact Info) Description 03/13/2024 12:00 PM CDT Ancillary Procedure Department of Ophthalmology in [place], [place] [address] [place] [address] Kenya Garza M.D. [address] [place] [address] Panuveitis Right; Necrosis Retinal Acute Right Social History Tobacco Use Types Packs/Day Years Used Date Smoking Tobacco: Light Smoker Cigarettes 0.5 44.3 Started: 02/26/1980 Smokeless Tobacco: Never Comments:On again off again Alcohol Use Standard Drinks/Week Comments Yes 0 (1 standard drink = 0.6 oz pur e alcohol) [facility] Utilities Answer Date Recorded In the past 12 months has [employer], gas, oil, or water [employer] threatened to shut off services in your home? No 11/05/2023 Social Connection and Isolation Panel [NHANES] A nswer Date Recorded In a typical week, how many times do you talk on the phone with family, friends, or neighbors? Once a week 06/27/2020 How often do you get together with friends or re latives? Never 06/27/2020 How often do you attend samaritan or protestant serv ices? Never 06/27/2020 Do [...] medical care, and heating? Somewhat hard 06/27/2020 [facility] of Occupat ional Health - Occupational Stress [...] CDT Ancillary Procedure Department of Ophthalmology in [place], [place] [address] [place] [phone] Prakash Graham M.D. [address] [place] [phone] 06/09/2024 10:00 AM CDT Office Visit Department of Ophthalmology in [place], [place] [address] [place] [phone] Prakash Graham M.D. [address] [place] [phone] 07/16/2024 8:45 AM CDT Ancillary Procedure Department of Ophthalmology in [place], [place] [address] [place] [phone] Prakash Graham M.D. [address] [place] [phone] 07/16/2024 9:15 AM CDT Ancillary Procedure Department of Ophthalmology in [place], [place] [address] [place] [phone] Prakash Graham M.D. [address] [place] [phone] 07/16/2024 9:30 AM CDT Office Visit Department of Ophthalmology in [place], [place] [address] [place] [address] Kenya Garza M.D. [address] [place] [address] 07/16/2024 12:45 PM CDT Office Visit Department of Ophthalmology in [place], [place] [address] [place] [address] Prakash Graham M.D. [address] [place] [phone] documented as of this encounter Procedures Procedure [...] Right documented in this encounter Care Teams Deicer Repairer Relationship Specialty Start Date End Date Elsewhere, Pcp PCP - General Internal Medicine 05/29/19 documented as of this encounter
--- OUTSIDE RECORDS SUMMARY | 2024-06-02 14:33 | XMS_ITS | Encounter Summary ---
Author Organization [facility] Address [address] [place] [address] Care Team Providers Care Gore Stitcher Name Role Phone Elsewhere, Pcp Primary Care [...] = 0.6 oz pur e alcohol) [facility] Utilities Answer Date Recorded In [...] How often do you attend yazdanism or druze serv ices? Never 06/27/2020 Do [...] care, and heating? Somewhat hard 06/27/2020 [facility] of Occupat ional [facility] - Occupational Stress Questionnaire Answer Date [...] CDT Ancillary Procedure Department of Ophthalmology in [place], [place] [address] [place] [phone] Prakash Graham M.D. [address] [place] [phone] 06/09/2024 10:00 AM CDT Office Visit Department of Ophthalmology in [place], [place] [address] [place] [phone] Prakash Graham M.D. [address] [place] [phone] 07/16/2024 8:45 AM CDT Ancillary Procedure Department of Ophthalmology in [place], [place] [address] [place] [phone] Prakash Graham M.D. [address] [place] [phone] 07/16/2024 9:15 AM CDT Ancillary Procedure Department of Ophthalmology in [place], [place] [address] [place] [phone] Prakash Graham M.D. [address] [place] [phone] 07/16/2024 9:30 AM CDT Office Visit Department of Ophthalmology in [place], [place] [address] [place] [phone] Kenya Garza M.D. [address] [place] [phone] 07/16/2024 12:45 PM CDT Office Visit Department of Ophthalmology in [place], [place] [address] [place] [address] Prakash Graham M.D. [address] [place] [address] documented as of this encounter Procedures Procedure Name Priority Date/Time Associated Diagnosis Comments OPHTHALMOLOGY IMAGE EXAM Routine 03/13/2024 12:10 AM CDT documented in this encounter Results * Eyes US-Eye J-Znys-Elqaydniurnla Image Exam (03/13/2024 12:10 AM CDT) Narrative [...] on filedocumented in this encounter Care Teams Gore Stitcher Relationship Specialty Start Date End Date Elsewhere, Pcp PCP - General Internal Medicine 05/29/19 documented as of this encounter
--- OUTSIDE RECORDS SUMMARY | 2024-06-02 14:33 | XMS_ITS | Encounter Summary ---
Author Organization [facility] Address [address] [place] [address] Care Team Providers Care Cash Shortage Investigator Name Role Phone Elsewhere, Pcp Primary Care Provider Unavailabl e Encounter Details Date Type Department Care Team (Late st Contact Info) Description 03/14/2024 Orders Only Department of Ophthalmology in [place], [place] [address] [place] [phone] Raffi Boyd M.D. [address] [place] [address] Social History Tobacco Use Types Packs/Day Years Used Date Smoking Tobacco: Light Smoker Cigarettes 0.5 44.3 Started: 02/26/1980 Smokeless Tobacco: Never Comments:On again off again Alcohol Use Standard Drinks/Week Comments Yes 0 (1 standard drink = 0.6 oz pur e alcohol) [facility] Utilities Answer Date Recorded In the past 12 months has [employer], gas, oil, or water [employer] threatened to shut off services in your home? No 11/05/2023 Social Connection and Isolation Panel [NHANES] A nswer Date Recorded In a typical week, how many times do you talk on the phone with family, friends, or neighbors? Once a week 06/27/2020 How often do you get together with friends or re latives? Never 06/27/2020 How often do you attend christianity or quaker serv ices? Never 06/27/2020 Do [...] heating? Somewhat hard 06/27/2020 [facility] of Occupat ional Health - Occupational [...] CDT Ancillary Procedure Department of Ophthalmology in [place], [place] [address] [place] [phone] Prakash Graham M.D. [address] [place] [phone] 06/09/2024 10:00 AM CDT Office Visit Department of Ophthalmology in [place], [place] [address] [place] [phone] Prakash Graham M.D. [address] [place] [phone] 07/16/2024 8:45 AM CDT Ancillary Procedure Department of Ophthalmology in [place], [place] [address] [place] [phone] Prakash Graham M.D. [address] [place] [phone] 07/16/2024 9:15 AM CDT Ancillary Procedure Department of Ophthalmology in [place], [place] [address] [place] [phone] Prakash Graham M.D. [address] [place] [phone] 07/16/2024 9:30 AM CDT Office Visit Department of Ophthalmology in [place], [place] [address] [place] [address] Kenya Garza M.D. [address] [place] [phone] 07/16/2024 12:45 PM CDT Office Visit Department of Ophthalmology in [place], [place] [address] [place] [phone] Prakash Graham M.D. [address] [place] [phone] documented as of this encounter Visit Diagnoses Not on filedocumented in this encounter Care Teams Cash Shortage Investigator Relationship Specialty Start Date End Date Elsewhere, Pcp PCP - General Internal Medicine 05/29/19 documented as of this encounter
--- OUTSIDE RECORDS SUMMARY | 2024-06-02 14:33 | XMS_ITS | Encounter Summary ---
Author Organization [facility] Address [address] [place] [address] Care Team Providers Care Auto Tune Up Mechanic Name Role Phone Elsewhere, Pcp Primary [...] How often do you attend rastafari or episcopal serv ices? Never 06/27/2020 Do [...] 06/27/2020 [facility] of Occupat ional [facility] - Occupational Stress Questionnaire Answer Date [...] CDT Ancillary Procedure Department of Ophthalmology in [place], [place] [address] [place] [phone] Prakash Graham M.D. [address] [place] [phone] 06/09/2024 10:00 AM CDT Office Visit Department of Ophthalmology in [place], [place] [address] [place] [phone] Prakash Graham M.D. [address] [place] [phone] 07/16/2024 8:45 AM CDT Ancillary Procedure Department of Ophthalmology in [place], [place] [address] [place] [phone] Prakash Graham M.D. [address] [place] [phone] 07/16/2024 9:15 AM CDT Ancillary Procedure Department of Ophthalmology in [place], [place] [address] [place] [phone] Prakash Graham M.D. [address] [place] [phone] 07/16/2024 9:30 AM CDT Office Visit Department of Ophthalmology in [place], [place] [address] [place] [phone] Kenya Garza M.D. [address] [place] [phone] 07/16/2024 12:45 PM CDT Office Visit Department of Ophthalmology in [place], [place] [address] [place] [address] Prakash Graham M.D. [address] [place] [address] documented as of this encounter Procedures Procedure [...] on filedocumented in this encounter Care Teams Auto Tune Up Mechanic Relationship Specialty Start Date End Date Elsewhere, Pcp PCP - General Internal Medicine 05/29/19 documented as of this encounter
--- OUTSIDE RECORDS SUMMARY | 2024-06-02 14:33 | XMS_ITS | Encounter Summary ---
Author Organization [facility] Address [address] [place] [address] Care Team Providers Care Rivet Catcher Name Role Phone Elsewhere, Pcp Primary Care Provider Unavailabl e Reason for Referral * Outpatient (Routine) - Closed Specialty Diagnoses / Procedures Referred By Apolinar lopez Referred To Contact Ophthalmology Diagnoses Necrosis Retinal Acute Right Kenay Garza M.D. 200 [place] [address] [facility] Referral ID Status Reason Start Date Expiration Date Visits Re quested Visits Authorized [id number] Closed 03/13/2024 09/12/2025 1 1 Reason for Visit * Outpatient (Routine) - Closed Specialty Diagnoses / Procedures Referred By Apolinar lopez Referred To Contact Ophthalmology Diagnoses Panuveitis Right Necrosis Retinal Acute Right Kenya Garza M.D. 200 [place] [address] [facility] Referral ID Status Reason Start Date Expiration Date Visits Re quested Visits Authorized [id number] Closed 02/20/2024 08/21/2025 1 1 Encounter Details Date Type Department Care Team (Latest Contact Info) Description 03/13/2024 11:30 AM CDT Office Visit Department of Ophthalmology in [place], [place] [address] [place] [phone] Kenya Garza M.D. [address] [place] [phone] Necrosis Retinal Acute Right (Primary Dx); Panuveitis Right Social History Tobacco Use Types Packs/Day Years Used Date Smoking Tobacco: Light Smoker Cigarettes 0.5 44.3 Started: 02/26/1980 Smokeless Tobacco: Never Comments:On again off again Alcohol Use Standard Drinks/Week Comments Yes 0 (1 standard drink = 0.6 oz pur e alcohol) [facility] Utilities Answer Date Recorded In the past 12 months has e electric, gas, oil, or water [employer] threatened to shut off services in your home? No 11/05/2023 Social Connection and Isolation Panel [NHANES] A nswer Date Recorded In a typical week, how many times do you talk on the phone with family, friends, or neighbors? Once a week 06/27/2020 How often do you get together with friends or re latives? Never 06/27/2020 How often do you attend hindu or sikh serv ices? Never 06/27/2020 Do [...] medical care, and heating? Somewhat hard 06/27/2020 [facility] [place] of Occupat ional Health - Occupational Stress [...] with tobramycin drops without improvement. She saw pattern duplicator Dr. Daisy Ivy on 10/23/23. [facility] [...] has not been able to see her resourcing consultant oncologist recently because every time she went to an appointment she was sent to the emergency room due to elevated blood pressure. In August 2023, she was sent from an infusion center to [facility] emergency department where shewas found to have oxygen saturations of 78%. CT imaging showed worsening bilateral ground glass opacities. A CT scan was negative for pulmonary embolism. She was transferred to [facility] for additional pulmonology care. On [...] three times in the past three months: [facility] (09/02/23 for hypercalcemiaand acute kidney injury - had CT chest/abdomen/pelvis to assess for malignancy), [facility] in [facility] again. Each time she saw [...] plans to monitor. (Her oncologist is at [facility].) MEDICATIONS Prednisolone every hour while awake [...] retinal detachment. No T sign noted. [facility] Macula OCT of the right eye shows [...] Possible posterior thickening. No T sign. 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 [facility] PLAN: It has been 21 days since [...] UBM plus macula OCT. 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 documented in this encounter Plan of Treatment Upcoming Encounters Date Type Department Care Team (Late st Contact Info) Description 06/09/2024 9:30 AM CDT Ancillary Procedure Department of Ophthalmology in [place], [place] [address] [place] [phone] Prakash Graham M.D. [address] [place] [phone] 06/09/2024 10:00 AM CDT Office Visit Department of Ophthalmology in [place], [place] [address] [place] [phone] Prakash Graham M.D. [address] [place] [phone] 07/16/2024 8:45 AM CDT Ancillary Procedure Department of Ophthalmology in [place], [place] [address] [place] [phone] Prakash Graham M.D. [address] [place] [phone] 07/16/2024 9:15 AM CDT Ancillary Procedure Department of Ophthalmology in [address] [phone] Prakash Graham M.D. [address] [place] [phone] 07/16/2024 9:30 AM CDT Office Visit Department of Ophthalmology in [place], [place] [address] [place] [phone] Kenya Garza M.D. [address] [place] [phone] 07/16/2024 12:45 PM CDT Office Visit Department of Ophthalmology in [place], [place] [address] [place] [address] Prakash Graham M.D. 200 [place] [address] Scheduled Referrals Name Type Priority Associated Diagnoses Order Schedule Ophthalmology office visit (clinic) Outpatient Referral Routine Necrosis Retinal Acute Right Expected: 04/13/2024 (Approximate), Expires: 03/13/2027 documented as of this encounter Visit Diagnoses Diagnosis Necrosis Retinal Acute Right- Primary Panuveitis Right documented in this encounter Care Teams Rivet Catcher Relationship Specialty Start Date End Date Elsewhere, Pcp PCP - General Internal Medicine 05/29/19 documented as of this encounter
--- OUTSIDE RECORDS SUMMARY | 2024-06-02 14:33 | XMS_ITS | Encounter Summary ---
Author Organization [facility] Address [address] [place] [address] Care Team Providers Care Manager Custom Name Role Phone Elsewhere, Pcp Primary Care Provider Unavailabl e Reason for Referral * Outpatient (Routine) - Closed Specialty Diagnoses / Procedures Referred By Apolinar lopez Referred To Contact Procedures Cyclophotocoagulation, Transscleral - OD - Right Eye Prakash rGaham M.D. 200 [place] [phone] [facility] Referral ID Status Reason Start Date Expiration Date Visits Re quested Visits Authorized [id number] Closed 03/13/2024 03/13/2025 1 1 Reason for Visit * Outpatient (Routine) - Canceled Specialty Diagnoses / Procedures Referred By Apolinar lopez Referred To Contact Diagnoses Panuveitis Right Necrosis Retinal Acute Right Procedures Intravitreal Injection, Pharmacologic Agent - OD - Right Eye Prakash Graham M.D. 200 [place] [address] [facility] Referral ID Status Reason Start Date Expiration Date V isits Requested Visits Authorized [id number] Canceled 03/13/2024 03/13/2025 1 1 Encounter Details Date Type Department Care Team (Latest Contact Info) Description 03/13/2024 2:00 PM CDT Procedure visit Department of Ophthalmology in [place], [place] 200 [place] [phone] [place] [address] Primary Hypotony Right Eye (Primary Dx); Panuveitis [...] In the past 12 months has th [employer], gas, oil, or water company threatened [...] How often do you attend hoahaoism or confucianist serv ices? Never 06/27/2020 Do [...] and heating? Somewhat hard 06/27/2020 [facility] of Occupat ional Health - Occupational Stress [...] your living situation today? I have a [facility] place to live 11/05/2023 Education Answer [...] CDT Ancillary Procedure Department of Ophthalmology in [place], [place] [address] [place] [phone] Prakash Graham M.D. [address] [place] [phone] 06/09/2024 10:00 AM CDT Office Visit Department of Ophthalmology in [place], [place] [address] [place] [phone] Prakash Graham M.D. [address] [place] [phone] 07/16/2024 8:45 AM CDT Ancillary Procedure Department of Ophthalmology in [place], [place] [address] [place] [phone] Prakash Graham M.D. [address] [place] [phone] 07/16/2024 9:15 AM CDT Ancillary Procedure Department of Ophthalmology in [place], [place] [address] [place] [phone] Prakash Graham M.D. [address] [place] [phone] 07/16/2024 9:30 AM CDT Office Visit Department of Ophthalmology in [place], [place] [address] [place] [phone] Kenya Garza M.D. [address] [place] [phone] 07/16/2024 12:45 PM CDT Office Visit Department of Ophthalmology in [place], [place] [address] [place] [phone] Prakash Graham M.D. [address] [place] [phone] documented as of this encounter Procedures Procedure [...] documented in this encounter Care Teams Manager Custom Relationship Specialty Start Date End Date Elsewhere, Pcp PCP - General Internal Medicine 05/29/19 documented as of this encounter
--- OUTSIDE RECORDS SUMMARY | 2024-06-02 14:33 | XMS_ITS | Encounter Summary ---
Author Organization [facility] Address [address] [place] [address] Care Team Providers Care Attorney Lawyer Name Role Phone Elsewhere, Pcp Primary Care Provider Unavailabl e Encounter Details Date Type Department Care Team (Latest Contact Info) Description 03/10/2024 Clinical Communication Department of Ophthalmology in [place], [place] [address] [place] [address] Kenya Garza M.D. [address] [place] [address] Social History Tobacco Use Types Packs/Day Years Used Date Smoking Tobacco: Light Smoker Cigarettes 0.5 44.3 Started: 02/26/1980 Smokeless Tobacco: Never Comments:On again off again Alcohol Use Standard Drinks/Week Comments Yes 0 (1 standard drink = 0.6 oz pur e alcohol) [facility] Utilities Answer Date Recorded In the past 12 months has [employer], gas, oil, or water [employer] threatened to shut off services in your home? No 11/05/2023 Social Connection and Isolation Panel [NHANES] A nswer Date Recorded In a typical week, how many times do you talk on the phone with family, friends, or neighbors? Once a week 06/27/2020 How often do you get together with friends or re latives? Never 06/27/2020 How often do you attend congregational or bahai serv ices? Never 06/27/2020 Do [...] 06/27/2020 [facility] of Occupat ional Health - Occupational [...] Ancillary Procedure Department of Ophthalmology in [address] [phone] Prakash Graham M.D. [address] [place] [phone] 06/09/2024 10:00 AM CDT Office Visit Department of Ophthalmology in [address] [phone] Prakash Graham M.D. [address] [place] [phone] 07/16/2024 8:45 AM CDT Ancillary Procedure Department of Ophthalmology in [address] [phone] Prakash Graham M.D. [address] [place] [phone] 07/16/2024 9:15 AM CDT Ancillary Procedure Department of Ophthalmology in [place], [place] [address] [place] [phone] Prakash Graham M.D. [address] [place] [phone] 07/16/2024 9:30 AM CDT Office Visit Department of Ophthalmology in [place], [place] [address] [place] [address] Kenya Garza M.D. [address] [place] [phone] 07/16/2024 12:45 PM CDT Office Visit Department of Ophthalmology in [place], [place] [address] [place] [address] Prakash Graham M.D. [address] [place] [phone] documented as of this encounter Visit Diagnoses Not on filedocumented in this encounter Care Teams Attorney Lawyer Relationship Specialty Start Date End Date Elsewhere, Pcp PCP - General Internal Medicine 05/29/19 documented as of this encounter
--- OUTSIDE RECORDS SUMMARY | 2024-06-02 14:34 | XMS_ITS | Encounter Summary ---
Author Organization [facility] Address [address] [place] [address] Care Team Providers Care Client Service Coordinator Name Role Phone Elsewhere, Pcp Primary Care Provider Unavailabl e Reason for Referral * Outpatient (Routine) - Closed Specialty Diagnoses / Procedures Referred By Contac t Referred To Contact Cardiovascular Disease Diagnoses Coronary Artery Disease (Unspecified) Katerine Bashir M.D. [address] [place] [address] [facility] Referral ID Status Reason Start Date Expiration Date Visits Re quested Visits Authorized [id number] Closed 02/12/2019 02/12/2020 1 1 Encounter Details Date Type Department Care Team (Late st Contact Info) Description 02/12/2019 [facility] [address] [place] [address] Katerine Bashir M.D. [address] [place] [address] Coronary Artery Disease (Unspecified) (Primary [...] CDT Ancillary Procedure Department of Ophthalmology in [place], [place] [address] [place] [phone] Prakash Graham M.D. [address] [place] [phone] 06/09/2024 10:00 AM CDT Office Visit Department of Ophthalmology in [place], [place] [address] [place] [phone] Prakash Graham M.D. [address] [place] [phone] 07/16/2024 8:45 AM CDT Ancillary Procedure Department of Ophthalmology in [place], [place] [address] [place] [address] Prakash Graham M.D. [address] [place] [phone] 07/16/2024 9:15 AM CDT Ancillary Procedure Department of Ophthalmology in [place], [place] [address] [place] [phone] Prakash Graham M.D. [address] [place] [phone] 07/16/2024 9:30 AM CDT Office Visit Department of Ophthalmology in [place], [place] [address] [place] [phone] Kenya Garza M.D. [address] [place] [phone] 07/16/2024 12:45 PM CDT Office Visit Department of Ophthalmology in [place], [place] [address] [place] [phone] Prakash Graham M.D. [address] [place] [phone] Scheduled Referrals Name Type Priority Associated Diagnoses [...] documented as of this encounter Care Teams Client Service Coordinator Relationship Specialty Start Date End Date Elsewhere, Pcp PCP - General Internal Medicine 05/29/19 documented as of this encounter
--- OUTSIDE RECORDS SUMMARY | 2024-06-02 14:34 | XMS_ITS | Encounter Summary ---
Author Organization [facility] Address [address] [place] [address] Care Team Providers Care Lead Electrical Controls Engineer Name Role Phone Elsewhere, Pcp Primary Care Provider Unavailabl e Reason for Referral * Outpatient (Routine) - Closed Specialty Diagnoses / Procedures Referred By Contac t Referred To Contact Cardiovascular Disease Diagnoses Coronary Artery Disease (Unspecified) Katerine Bashir M.D. [address] [place] [address] [facility] Referral ID Status Reason Start Date Expiration Date Visits Re quested Visits Authorized [id number] Closed 02/10/2019 02/10/2020 3 3 Encounter Details Date Type Department Care Team (Late st Contact Info) Description 02/10/2019 [facility] [address] [place] [address] Katerine Bashir M.D. [address] [place] [address] Coronary Artery Disease (Unspecified) (Primary [...] CDT Ancillary Procedure Department of Ophthalmology in [place], [place] [address] [place] [phone] Prakash Graham M.D. [address] [place] [phone] 06/09/2024 10:00 AM CDT Office Visit Department of Ophthalmology in [place], [place] [address] [place] [phone] Prakash Graham M.D. [address] [place] [phone] 07/16/2024 8:45 AM CDT Ancillary Procedure Department of Ophthalmology in [place], [place] [address] [place] [address] Prakash Graham M.D. [address] [place] [phone] 07/16/2024 9:15 AM CDT Ancillary Procedure Department of Ophthalmology in [place], [place] [address] [place] [phone] Prakash Graham M.D. [address] [place] [phone] 07/16/2024 9:30 AM CDT Office Visit Department of Ophthalmology in [place], [place] [address] [place] [phone] Kenya Garza M.D. [address] [place] [phone] 07/16/2024 12:45 PM CDT Office Visit Department of Ophthalmology in [place], [place] [address] [place] [phone] Prakash Graham M.D. [address] [place] [phone] Scheduled Referrals Name Type Priority Associated Diagnoses [...] documented as of this encounter Care Teams Lead Electrical Controls Engineer Relationship Specialty Start Date End Date Elsewhere, Pcp PCP - General Internal Medicine 05/29/19 documented as of this encounter
--- OUTSIDE RECORDS SUMMARY | 2024-06-02 14:34 | XMS_ITS | Clinical Summary ---
Author Organization [facility] Address [place], [place] [address] Care Team Providers Care Fire Equipment Repairer Inspector Name Role Phone Easton Mccormick MD Unavailable [phone] Katerine Bashir MD Primary Care Provider + Allergies Active Allergy Reactions Criticality Noted Date Comments Wheeler Yefri Itching 09/11/2023 Medications Medication Sig Dispensed Refills Start Date End Date Status aspirin (ECOTRIN) 81 mg enteric coated tabletIndications:Non -ST elevation DE (NSTEMI) (HC) Take 1 tablet by mouth once daily with a meal. 0 11/30/2015 Active atorvastatin (LIPITOR) 40 mg tabletIndications:Cor onary artery disease, angina presence unspecified, unspecified vessel or lesion type, unspecified whether beaver or transplanted heart Take 1 tablet by [...] Date Diagnosed Date Acute respiratory failure 01/14/2024 [place] coma scale total score 3-8 01/14/2024 Coma [...] ACP (advance care planning) 09/11/2023 Non-ST elevation DE (NSTEMI) 11/19/2015 Melanoma in situ 06/15/2014 Overview: Right lower anterior leg and upper right eyelid. 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 Morbid obesity 04/10/2010 Diabetes mellitus, type 2 HTN (hypertension) CAD (coronary artery disease) Hyperlipidemia LDL goal <70 Encounters Date Type Department Care Team Description 05/21/2024 8:30 AM CDT Office Visit [facility] [address] [place] [address] Shashank Smith MD CV General Cardiology Est 04/25/2024 12:30 PM CDT Ancillary Procedure [facility] [address] [place] [address] from Last 3 Months Immunizations Name Administration [...] SCREEN FFDM ([place]) Routine 10/04/2016 9:00 AM [employer] Visit for screening mammogram LIPID PANEL W REFLEX MEASURED LDL Routine 09/11/2016 9:26 AM [employer] Hyperlipidemia, unspecified XR DXA BONE DENSITY 2 [...] CDT ECHOCARDIOGRAM BREEZY TREJO ? Accession#: ?? [id number] : ?1955 68 years Study Date: ?? 04/25/2024 12:16:52 PM Gender: F ?BP: ? 114/84 mmHg Height: 168.00 cm ?BSA: ?2.00 m? ? ? Weight: 90.00 kg ? Tech: ? MRC ? Referring MD: BECKI ARANA Site: ? [facility] Reading Location: [facility] Patient Location: Inpatient. Procedure: 2D, Color Doppler [...] . This study was interpreted by an [facility] accredited facility. CC: HIM (med records) [facility], Med/Surg - [facility]. ??Final ?? Procedure Note Tiara Huntley MD - 04/25/2024 ECHOCARDIOGRAM BREEZY TREJO : 1955 68 years Study Date: 04/25/2024 12:16:52 PM Gender: F BP: 114/84 mmHg Height: 168.00 cm BSA: 2.00 m? ? ? Weight: 90.00 kg Tech: [facility] Referring MD: BECKI ARANA Site: [facility] Reading Location: [facility] Patient Location: Inpatient. Procedure: 2D, Color Doppler [...] . This study was interpreted by an [facility] accredited facility. CC: HIM (med records) [facility], Med/Surg - IP [facility]. Final Becki Arana MD ECHO ORD * XR MAMMO BILAT SCREEN FFDM (10/04/2016 9:00 AM [employer]) Anatomical Region Laterality Modality BREASTS, Breast Left, Breast Right Bilateral Mammography Narrative 10/04/2016 1:52 PM [employer] BILATERAL DIGITAL SCREENING MAMMOGRAM WITH COMPUTER-AIDED DETECTION [...] Ltd. [email or web address] ?? / Bailey Collins PASTRY SOUS CHEF MAMMO * (ABNORMAL) LIPID PANEL W REFLEX MEASURED LDL (09/11/2016 9:26 AM [employer]) CHOLESTEROL,TOTAL 159 100 - 199 mg/dL 09/11/2016 10:03 AM [employer] [facility] TRIGLYCERIDES 183(H) <150 mg/dL 09/11/2016 10:03 AM [employer] [facility] HDL CHOLESTEROL 36(L) >40 mg/dL 6 10:03 AM [employer] [facility] NON-HDL CHOLESTEROL 123 <145 mg/dl 09/11/2016 10:03 AM [employer] [facility] CHOL/HDL RATIO 4.42 <4.50 09/11/2016 10:03 AM [employer] [facility] LDL CHOLESTEROL 86 <=130 mg/dL 09/11/2016 10:03 AM [employer] [facility] PATIENT STATUS NOT GIVEN 09/11/2016 10:03 AM [employer] [facility] Blood BLOOD SPECIMEN / Unknown Venipuncture / Unknown 09/11/2016 9:26 AM [employer] 09/11/2016 9:26 AM [employer] Bailey Collins NP CHEMISTRY [facility] [address] [place] [address], * XR DXA BONE DENSITY 2 SITES [...] Comments Code Status Discussion: Discussed Care Teams Fire Equipment Repairer Inspector Relationship Specialty Start Date End Date Katerine Bashir MD [address] [place] [address] PCP - General Family Practice 12/27/20 Easton Mccormick MD [facility] [address] [place] [id number] Cardiovascular Disease 09/26/16
--- NOTE | 2024-06-02 15:00 | CRLHL7_ITS ---
For Patients: As a result of the Century Cures Act, medical imaging exams and procedure reports are released immediately into your electronic medical record. You may view this report before your referring provider. If you have questions, please contact your health care provider. INDICATION: Small cell B-cell lymphoma. TECHNIQUE: CT chest, abdomen and pelvis acquired with 98 cc Isovue 370 IV contrast. COMPARISON: CT abdomen and pelvis 08/30/2023, CT chest abdomen pelvis 08/16/2022. FINDINGS: CHEST Lungs and pleura: Bibasilar atelectasis. Calcified granuloma in the left lower lobe. Stable 3 millimeter nodule in the right middle lobe (3/69). No effusions, thickening, or pneumothorax. Heart and vasculature: Sequela of prior CABG. Atherosclerosis of the aorta. Thoracic aorta and pulmonary artery are normal in caliber. Lymph node/mediastinum: Decreased lymphadenopathy involving the axilla, mediastinum and nuyr, indexed as follows: -right hilar lymph node measures 2.4 x 1.8 centimeters, previously 3.4 x 2.3 centimeters on 08/16/2022 -paratracheal lymph node measuring 1.4 x 1.1 centimeters (2/30), previously 2.2 x 1.2 centimeters on 08/16/2022 -left axillary lymph node measuring 2.6 by 1.5 centimeters, previously 3.3 x 2.1 centimeters Chest wall: Normal. Bones: No suspicious bone lesions. ABDOMEN AND PELVIS: Liver: Normal in caliber and attenuation. No masses. Gallbladder and bile ducts: Unremarkable. Pancreas: Unremarkable. Spleen: Borderline splenomegaly measuring 13.1 centimeters in the craniocaudal dimension. Adrenal glands: Unremarkable. No masses. Kidneys: Subcentimeter hypodense lesion the right kidney, likely cyst. GI tract: Small hiatal hernia. No obstruction. Diverticulosis without diverticulitis. Normal appendix. Vasculature: Moderate to severe aortoiliac atherosclerosis. Lymph nodes: Slightly decreased abdominopelvic lymphadenopathy, indexed as follows: -aneta hepatis lymph node measuring 4.4 x 2.5 centimeters (2/152), previously 4.6 x 2.9 centimeters on 08/30/2023 -left para-aortic lymph node measuring 2.4 x 1.6 centimeters (2/162), previously 2.8 x 1.9 centimeters on 08/30/2023 left para-aortic node previously measured 2.2 x 3.3 centimeters (axial series 2, image 49). Other nodes have similarly decreased in size. -left external iliac lymph node measuring 2.3 x 1.7 centimeters (2/228), previously 2.9 x 1.6 centimeters Omentum/peritoneum/retroperitoneum/abdominal wall: No masses or infiltration. No free air or significant free fluid. Pelvic organs: Unremarkable. Bones: No suspicious bone lesions. IMPRESSION: Compared to 08/30/23, slightly decreased abdominopelvic lymphadenopathy. Compared to 08/16/2022, decreased thoracic lymphadenopathy. Please note that all CT scans at this facility use dose modulation, iterative reconstruction, and/or weight-based dosing when appropriate to reduce radiation dose to as low as reasonably achievable. Dictated by Janet Beauchamp MD @ 06/03/2024 9:13:57 AM (Electronically Signed)
== END 2024-06-02 14:29 | disposition home or self-care (01) ==
LOC: CT 14:29
PROVIDERS: PCP Family Medicine; Visit Provider Internal Medicine Hematology & Oncology
DX: C83.00 Small cell B-cell lymphoma, unspecified site (principal)
CPT/HCPCS: 71260; 74177; Q9967

== ENCOUNTER 2024-06-24 10:01 | Outpatient (CLI) | payer MEDICARE, SELFPAY ==
--- OUTSIDE RECORDS SUMMARY | 2024-06-24 10:05 | XMS_ITS | Encounter Summary ---
Author Organization [facility] Address [address] [place] [address] Care Team Providers Care Procedure Tech Name Role Phone Elsewhere, Pcp Primary Care Provider Unavailabl e Encounter Details Date Type Department Care Team (Late st Contact Info) Description 06/02/2024 Orders Only Pharmacy Prior Auth RO [phone] Ashly Inman Social History Tobacco Use Types Packs/Day Years Used Date Smoking Tobacco: Former Cigarettes 0.7 70.4 0 03/28/1975 - 01/09/2022 Smokeless Tobacco: Never Comments:On again off again Alcohol Use Standard Drinks/Week Comments Yes 5 (1 standard drink = 0.6 oz pur e alcohol) occasional [facility] Utilities Answer Date Recorded In the [...] How often do you attend adventism or jew serv ices? Never 06/27/2020 Do [...] hard 06/27/2020 [facility] - Occupational [...] Care Team (Late st Contact Info) Description 07/16/2024 8:45 AM CDT Ancillary Procedure Department of Ophthalmology in [place], [place] [address] [place] [phone] Prakash Graham M.D. [address] [place] [phone] 07/16/2024 9:15 AM CDT Ancillary Procedure Department of Ophthalmology in [place], [place] [address] [place] [phone] Prakash Graham M.D. [address] [place] [phone] 07/16/2024 9:30 AM CDT Office Visit Department of Ophthalmology in [place], [place] [address] [place] [phone] Kenya Garza M.D. [address] [place] [phone] 07/16/2024 12:45 PM CDT Office Visit Department of Ophthalmology in [place], [place] [address] [place] [phone] Prakash Graham M.D. [address] [place] [phone] documented as of this encounter Visit Diagnoses Not on filedocumented in this encounter Care Teams Procedure Tech Relationship Specialty Start Date End Date Elsewhere, Pcp PCP - General Internal Medicine 05/29/19 documented as of this encounter
--- OUTSIDE RECORDS SUMMARY | 2024-06-24 10:05 | XMS_ITS | Referral Summary ---
Author Organization [facility] Address [address] [place] [address] Care Team Providers Care Dining Car Hop Name Role Phone Elsewhere, Pcp Primary Care Provider Unavailabl e Source Comments Patient records contain information from all sites at [facility]. For routine questions regarding patient records, call [phone] during business hours, M-F 8:00 AM - 5:00 PM Central Time. Record requests for emergency care only can be directed to [phone] at any time.[facility] Encounters Date Type Department Care Team Description 06/09/2024 10:00 AM CDT Office Visit Department of Ophthalmology in [place], [place] [address] [place] [address] Prakash Graham M.D. Necrosis Retinal Acute Right (Primary Dx); Proliferative Vitreoretinopathy Right 06/02/2024 Orders Only Pharmacy Prior Auth [phone] Ashly Inman 06/02/2024 Clinical Communication Department of Ophthalmology in [place], [place] [address] [place] [address] Prakash Graham M.D. 06/02/2024 Refill Department of Ophthalmology in [place], [place] [address] [place] [address] Prakash Graham M.D. Med Change Request 06/02/2024 8:00 AM CDT Office Visit Department of Ophthalmology in [place], [place] [address] [place] [address] Prakash Graham M.D. Necrosis Retinal Acute Right (Primary Dx); Proliferative Vitreoretinopathy Right 06/01/2024 3:08 PM CDT Anesthesia Event [facility] [address] [place] [phone] Gaye Giraldo M.D. Easton Duran APRN, USER INTERFACE ARTIST 06/01/2024 2:29 PM CDT - 06/01/2024 5:26 PM CDT Surgery [facility] [address] [place] [phone] Prakash Graham M.D. VITRECTOMY, PARS PLANA 25 GAUGE, MEMBRANE PEEL, SILICONE OIL 06/01/2024 1:25 PM CDT - 06/01/2024 7:27 PM CDT Hospital Encounter [facility] [address] [place] [phone] Prakash Graham M.D. Discharge Disposition: Home or Self Care 05/26/2024 9:45 AM CDT Office Visit Department of Ophthalmology in [address] [phone] Prakash Graham M.D. Necrosis Retinal Acute Right (Primary Dx) 05/20/2024 Clinical Communication Department of Ophthalmology in [place], [place] [address] [place] [phone] Renaldo Hawk M.D. 05/07/2024 2:00 PM CDT Office Visit Department of Ophthalmology in [place], [place] [address] [place] [phone] Renaldo Hawk M.D. Necrosis Retinal Acute Right (Primary Dx); Proliferative Vitreoretinopathy Right; Panuveitis Right; Primary Hypotony Right Eye; Posterior Reversible Encephalopathy Syndrome 05/04/2024 Clinical Communication Department of Ophthalmology in [place], [place] [address] [place] [phone] Kenya Garza M.D. Follow Up Visit from ER 04/27/2024 Clinical Communication Department of Ophthalmology in [place], [place] [address] [place] [phone] Prakash Graham M.D. Surgery today 04/2704/16/2024 12:05 AM CDT Ancillary Procedure Department of Ophthalmology 04/16/2024 Ancillary Procedure Department of Ophthalmology 04/16/2024 2:30 PM CDT Office Visit Department of Ophthalmology in [place], [place] [address] [place] [phone] Kenya Garza M.D. Necrosis Retinal Acute Right (Primary Dx); Proliferative Vitreoretinopathy Right 04/16/2024 2:00 PM CDT Ancillary Procedure Department of Ophthalmology in [place], [place] [address] [place] [phone] Kenya Garza M.D. Necrosis Retinal Acute Right 04/16/2024 1:00 PM CDT Ancillary Procedure Department of Ophthalmology in [place], [place] [address] [place] [phone] Kenya Garza M.D. Necrosis Retinal Acute Right 04/14/2024 Ancillary Procedure Department of Ophthalmology 04/14/2024 2:30 PM CDT Office Visit Department of Ophthalmology in [place], [place] [address] [place] [phone] Prakash Graham M.D. Panuveitis Right (Primary Dx); Proliferative Vitreoretinopathy Right 04/14/2024 2:10 PM CDT Ancillary Procedure Department of Ophthalmology in [place], [place] [address] [place] [phone] Prakash Graham M.D. Panuveitis Right; Necrosis Retinal Acute Right 04/14/2024 11:00 AM CDT Comprehensive Visit Preoperative Evaluation Center in [place], [place] [address] [place] [phone] Prakash Graham M.D. Warner, Paul A, M.D. Panuveitis Right; Necrosis Retinal Acute Right 04/10/2024 Refill Department of Ophthalmology in [place], [place] [address] [place] [phone] Kenya Garza M.D. Med Refill 04/01/2024 Refill Department of Ophthalmology in [place], [place] [address] [place] [phone] Oliver, Raffi A, M.D. Med Refill from Last 3 Months Allergies Active Allergy Reactions Criticality Noted Date Comments Aller Xt-[place] Pollen-Jena Blisters,Itching,Ra sh High 06/21/2020 Methotrexate Other (see [...] days. 10 mL 4 06/30/20 24 Active difluprednate (DurezoL) 0.05 % ophthalmic [...] 5 mL 1 4 06/02/20 24 Discontinued polymyxin B-trimethoprim (Polytrim) 10,000 unit- 1 mg/mL ophthalmic solution Administer 1 drop into the right eye 4 (four) times a day for 7 days. 10 mL 4 06/09/20 24 predniSONE (Deltasone) 20 mg tablet Take 2 tablets (40 mg total) by mouth daily for 14 days. Take the entire dose in the AM with food 28 tablet 4 06/16/20 24 Active Problems Problem Noted Date Diagnosed Date [...] = 0.6 oz pur e alcohol) occasional [employer] Utilities Answer Date Recorded In the past 12 months has th [employer] electric, gas, oil, or water company threatened [...] How often do you attend restoration or pentecostal serv ices? Never 06/27/2020 Do [...] and heating? Somewhat hard 06/27/2020 [facility] of Occupat ional Health - Occupational Stress [...] CDT Ancillary Procedure Department of Ophthalmology in [place], [place] [address] [place] [phone] Prakash Graham M.D. [address] [place] [phone] 07/16/2024 9:15 AM CDT Ancillary Procedure Department of Ophthalmology in [place], [place] [address] [place] [phone] Prakash Graham M.D. [address] [place] [phone] 07/16/2024 9:30 AM CDT Office Visit Department of Ophthalmology in [place], [place] [address] [place] [phone] Kenya Garza M.D. [address] [place] [phone] 07/16/2024 12:45 PM CDT Office Visit Department of Ophthalmology in [place], [place] [address] [place] [address] Prakash Graham M.D. [address] [place] [address] Medical Devices Implanted Type Area Port Traffic Manager Device Identifier Shelf Expiration Date Model / Serial / Lot Slv Sclr Rnd 1x2.1x30 - [id number] Implanted:Qty : 1 on 06/01/2024 by Prakash Graham M.D. at [facility] Ocular (Eye) Implant Right: Eye [employer] 11/27/2030 S3 41 Band Implanted:Qty : 1 on 06/01/2024 by Prakash Graham M.D. at [facility] Ocular (Eye) Implant Right: Eye ZEISS [id number] / / [id number] Stent Other Stent Other Chest Description:Has stent but un sure of placement Procedures Procedure Name Priority Date/Time Associated Diagnosis Comments ADULT OXYGEN THERAPY Routine 06/01/2024 6:43 PM CDT ADULT OXYGEN THERAPY Routine 06/01/2024 6:43 PM CDT GLUCOSE POCT, B Routine 06/01/2024 6:36 PM CDT LDA ANE NON-SURGICAL AIRWAY Routine 06/01/2024 3:17 PM CDT SCLERAL BUCKLING 06/01/2024 2:58 PM CDT Panuveitis Right Necrosis Retinal Acute Right Proliferative Vitreoretinopathy Right Retinal Detachment With Single Break Right Eye Case Notes GAS PUMPING STATION OPERATOR @ 1331, TPU 10 VITRECTOMY - PARS PLANA 25 GAUGE 06/01/2024 2:58 PM CDT Panuveitis Right Necrosis Retinal Acute Right Proliferative Vitreoretinopathy Right Retinal Detachment With Single Break Right Eye Case Notes GAS PUMPING STATION OPERATOR @ 1331, TPU 10 ULTRASOUND BIOMICROSCOPY - OD - RIGHT Routine [...] IMAGE EXAM Routine 04/14/2024 12:00 AM CDT COMPREHENSIVE METABOLIC PANEL, S/P Routine 11/05/2023 4:[address] CHEST WITH IV CONTRAST RAD [...] Unknown Provider LAB POCT ORDERABLES- MANUAL POC [facility] [address] [place] [address], [facility] POC [address] [place] [address] * LDA ANE NON-SURGICAL AIRWAY (06/01/2024 3:17 [...] ciliary body detachment noted, possible ciliochoroidal effusion. [facility] Kenya Garza M.D. [facility]AGING ORDERS * B-Scan Ultrasound - OD [...] ciliary body detachment noted, possible ciliochoroidal effusion. [facility] Kenya Garza M.D. OPHTH ULTRASOUND Performing Organization Address [facility] de Phone Number OPHTHALMOLGY NON-IMAGING ORDERS * Eyes [facility] Image Exam (04/16/2024 12:05 AM CDT) Only the most recent of3 resultswithin the time period is included. Narrative IIMS - 04/16/2024 2:48 PM CDT This order has been created and auto-finalized to support the import of images acquired without order. The clinical documentation to support these images can be found on the encounter that produced images. Provider Not In System IMG NON RAD IMAGI NG PROCEDURES Performing Organization Address [facility] de Phone Number [facility] NA * Optical Coherence Tomography - Macula/Retina - OU - Both Eyes (04/14/2024 2:22 PM CDT) Narrative OPHTHALMOLOGY IMAGING EXAM - 04/14/2024 4:40 PM CDT Right Eye OCT device used was Spectralis . Left Eye OCT device used was Spectralis . Notes See note from visit on 04/14/2024. Prakash Graham M.D. OPHTH TOMOGRAPHY Performing Organization Address [facility] de Phone Number OPHTHALMOLOGY IMAGING EXAM * (ABNORMAL) Comprehensive Metabolic Panel (11/05/2023 4:03 PM DAMASCENER) Potassium, S 4.4 3.6 - 5.2 mmol/L 11/05/2023 5:04 PM DAMASCENER DTL Sodium, S 139 135 - 145 mmol/L 11/05/2023 5:04 PM DAMASCENER DTL Chloride, S 101 98 - 107 mmol/L 11/05/2023 5:04 PM DAMASCENER DTL Bicarbonate, S 27 22 - 29 mmol/L 11/05/2023 5:04 PM DAMASCENER DTL Anion Gap 11 7 - 15 11/05/2023 5:04 PM [facility]ASC[facility] DTL BUN (Blood Urea Nitrogen), S 17 6 - 21 mg/dL 11/05/2023 5:04 PM [facility]ASC[facility] DTL Creatinine 0.76 0.59 - 1.04 mg/dL 11/05/2023 5:04 PM [facility]ASCENER DTL Estimated GFR (eGFR) 86 >=60 mL/min/BS A 11/05/2023 5:04 PM [facility] DTL Comment: Estimated GFR calculated using the 2020 CKD_EPI creatinine equation. Calcium, Total, S 10.1 8.8 - 10.2 mg/dL 11/05/2023 5:20 PM [facility]ASCENER DTL Glucose, S 104 70 - 140 mg/dL 11/05/2023 5:04 PM [facility]ASCENER DTL Protein, Total, S 6.1(L) 6.3 - 7.9 g/dL 11/05/2023 5:04 PM [facility]ASCENER DTL Albumin, S 4.3 3.5 - 5.0 g/dL 11/05/2023 5:04 PM [facility]ASCENER DTL Aspartate Aminotransferase (AST), S 16 8 - 43 U/L 11/05/2023 5:04 PM [facility]ASCENER DTL Alkaline Phosphatase, S 81 35 - 104 U/L 11/05/2023 5:04 PM [facility]ASCENER DTL Alanine Aminotransferase (ALT), S 16 7 - 45 U/L 11/05/2023 5:04 PM [facility]ASCENER DTL Bilirubin, Total, S 1.2 0.0 - 1.2 mg/dL 11/05/2023 5:04 PM DAMASCENER DTL Blood (Blood, Venous) 11/05/2023 4:03 PM DAMASCENER 11/05/2023 4:41 PM [facility]ASCENER Kenya Garaz M.D. LAB BLOOD ADD-ON [facility] [address] [place] [address], [facility] [address] [place] [address] * CT Chest with IV Contrast (03/31/2020 [...] Recently Relevant to Health Maintenance Care Teams Dining Car Hop Relationship Specialty Start Date End Date Elsewhere, Pcp PCP - General Internal Medicine 05/29/19
--- OUTSIDE RECORDS SUMMARY | 2024-06-24 10:05 | XMS_ITS | Encounter Summary ---
Author Organization [facility] Address [address] [place] [address] Care Team Providers Care Hand Candle Dipper Name Role Phone Elsewhere, Pcp Primary Care Provider Unavailabl e Reason for Visit * Reason Comments Post-op Follow-up * Outpatient (Routine) - Closed Specialty Diagnoses / Procedures Referred By Apolinar lopez Referred To Contact Ophthalmology Opal Graham M.D. [address] [place] [phone] [facility] Referral ID Status Reason Start Date Expiration Date Visits Re quested Visits Authorized [id number] Closed 03/13/2024 09/12/2025 1 1 Encounter Details Date Type Department Care Team (Latest Contact Info) Description 06/02/2024 8:00 AM CDT Office Visit Department of Ophthalmology in [place], [place] [address] [place] [phone] Opal Graham M.D. [address] [place] [phone] Necrosis Retinal Acute Right (Primary Dx); [...] Recorded In the past 12 months has [employer] electric, gas, oil, or water company threatened [...] How often do you attend mandaen or congregation serv ices? Never 06/27/2020 Do [...] as of this encounter Progress Notes * Opal Graham M.D. - 06/02/2024 8:00 AM CDT # Panuveitis with acute retinal [...] - Vision recovering back to baseline OU Plan on 23g PPV/SB/MP/SO/cyclopexy OD 04/27/24 - ICG, kenalog, 10-prolene (possible cyclopexy) Status post PPV/SB/ILM/MP/RET/PFO/SO OD 06/01/24 (Gladys) Doing well. Intraocular pressure 13 Polytrim, 1 drop 4x/day for 1 week into operative eye. Durezol QID then taper PO pred 40-30-20-10 Wear shield at night and glasses during the day. Activity restrictions discussed. Call if decreased vision, increased photophobia, pain, discharge or increased redness occurs. Positioning: FD x 3 days Discussed no air travel while gas or air bubble still present in the operative eye. Follow-up in 1 week documented in this encounter Miscellaneous Notes * Addendum Note - Opal Graham M.D. - 06/02/2024 8:00 AM CDTAddended by: OPAL GRAHAM on: 06/02/2024 08:35 AM Modules accepted: Orders documented in this encounter Plan of Treatment Upcoming Encounters Date Type Department Care Team (Late st Contact Info) Description 07/16/2024 8:45 AM CDT Ancillary Procedure Department of Ophthalmology in [place], [place] [address] [place] [phone] Opal Graham M.D. [address] [place] [phone] 07/16/2024 9:15 AM CDT Ancillary Procedure Department of Ophthalmology in [place], [place] [address] [place] [phone] Opal Graham M.D. [address] [place] [phone] 07/16/2024 9:30 AM CDT Office Visit Department of Ophthalmology in [place], [place] [address] [place] [address] Kenya Garza M.D. [address] [place] [phone] 07/16/2024 12:45 PM CDT Office Visit Department of Ophthalmology in [place], [place] [address] [place] [address] Opal Graham M.D. [address] [place] [phone] documented as of this encounter Visit Diagnoses Diagnosis Necrosis Retinal Acute Right- Primary Proliferative Vitreoretinopathy Right documented in this encounter Care Teams Hand Candle Dipper Relationship Specialty Start Date End Date Elsewhere, Pcp PCP - General Internal Medicine 05/29/19 documented as of this encounter
--- OUTSIDE RECORDS SUMMARY | 2024-06-24 10:05 | XMS_ITS | Encounter Summary ---
Author Organization [facility] Address [address] [place] [address] Care Team Providers Care Shell Machine Operator Name Role Phone Elsewhere, Pcp Primary Care Provider Unavailabl e Reason for Visit * Auth/Cert (Routine) Specialty Diagnoses / Procedures Referred By Apolinar t Referred To Contact Diagnoses Panuveitis Right Necrosis Retinal Acute Right Panuveitis Right [H44.111] Necrosis Retinal Acute Right [H30.131] Procedures CT VITRECT W RMVL PRERETINAL MEMB CT RPR DETACH RETINA CMPLX VITRECTOMY - PARS PLANA 25 GAUGE / MEMBRANE PEEL / SILICONE OIL AND ALL ASSOCIATED PROCEDURES RIGHT EYE SCLERAL BUCKLING Prakash Graham M.D. [address] [place] [phone] Referral ID Status Reason Start Date Expiration Date Visits Re quested Visits Authorized [id number] 1 1 Encounter Details Date Type Department Care Team (Late st Contact Info) Description 06/01/2024 3:08 PM CDT Anesthesia Event [facility] [address] [place] [phone] Gaye Giraldo M.D. [address] [place] [phone] Easton Duran APRN, CHEF GERMAN [address] [place] [phone] Anesthesia Record Procedure Summary Procedure Name [...] Start 1659 Anes CS Handoff I, Easton mansfield, MIGUEL, CHEF GERMAN, attest that I have reconciled the controlled substances and that I have reviewed all the significant information with the next anesthesia provider assuming care of this patient. 181 Proc Fin 182 Turnover to ANE Staff 182 Airway Removal Criteria Met 182 Extubation/Airway Removed 182 an stop data 183 An End I completed my handoff to the receiving staff during which we 1. Identified the patient 2. Identified the responsible provider 3. Reviewed the pertinent medical history 4. Discussed the surgical course 5. Reviewed intra-op anesthesia management and issues during anesthesia 6. Set expectations for post-procedure period 7. Allowed opportunity for questions and acknowledgement of understanding. Meds Name Total fentanyl injection 50 mcg/mL [...] Reason: Patient discharged 06/01/24 141 by Roxanna Rodriguez, R.NWhitney 06/01/241926 by Nesha Lucio, R.NWhitney Supraglottic Airway Placement Date: 03/20; Placement Time: 1516 (created via procedure documentation); Mask Ventilation: Easy mask; Brand: [place]; Size: 4; Removal Date: 06/01/24; Removal Time: 182306/01/24 151 by Easton Duran APRN, CRNA 06/01/241823 by Nelson Madison APRN, CRNA, DNAP documented in this encounter Social History Tobacco Use Types Packs/Day Years Used Date Smoking Tobacco: Former Cigarettes 0.7 70.4 0 03/28/1975 - 01/09/2022 Smokeless Tobacco: Never Comments:On again off again Alcohol Use Standard Drinks/Week Comments Yes 5 (1 standard drink = 0.6 oz pur e alcohol) occasional [facility] Utilities Answer Date Recorded In the past 12 months has [employer] electric, gas, oil, or water company threatened [...] How often do you attend restorationist or christian serv ices? Never 06/27/2020 Do [...] heating? Somewhat hard 06/27/2020 [facility] [place] of Occupat ional Health - Occupational Stress [...] of this encounter OR Notes * Anesthesia Postprocedure Evaluation - Eran Jennings M.D. - 06/01/2024 6:54 PM CDT Patient: Alexandra Dixon Procedure Summary Date: 06/01/24 Room / Location: [address] 03 80 / [facility] in [place], [place] Anesthesia Start: 1508 Anesthesia Stop: 183 Procedures: VITRECTOMY, PARS PLANA 25 GAUGE, MEMBRANE PEEL, SILICONE OIL (Right: Eye) SCLERAL BUCKLING. (Right: Eye) Diagnosis: Panuveitis Right Necrosis Retinal Acute Right Proliferative Vitreoretinopathy Right Retinal Detachment With Single Break Right Eye (Panuveitis Right [H44.111], Necrosis Retinal Acute Right [H30.131].) Providers: Prakash Graham M.D. Responsible Provider: Gaye Giraldo M.D. Anesthesia Type: general ASA Status: 3 Anesthesia Type: general Last vitals Vitals Value Taken Time BP 154/73 06/01/24 1850 Temp 36.6 ??C 06/01/24 1850 Pulse 88 06/01/24 1853 Resp 15 06/01/24 1853 SpO2 96 % 06/01/24 1853 Vitals shown include unfiled device data. Please reference Vitals flowsheet for most recent vital signs. Anesthesia Post Evaluation Patient Disposition: dismissal Cardiovascular status: hemodynamics (HR & BP) acceptable Respiratory status: patent airway with spontaneous effort Temperature: normothermic Oxygen requirements: room air Level of consciousness: awake Pain score: pain adequately controlled and/or at baseline Post Op nausea/vomiting: none Hydration status: euvolemic * Anesthesia Procedure Notes - Easton Duran [...] Procedure outcome: successful Notable Events: no complications * Anesthesia Preprocedure Evaluation - Melisa Hurt M.D., M.P.H. - 06/01/2024 3:03 PM CDT Preprocedure Anesthesia & H&P Assessment Procedure Summary Anesthesia Start Date/Time: 06/01/24 1508 Procedures: VITRECTOMY, PARS PLANA 25 GAUGE, MEMBRANE PEEL, SILICONE OIL, SCLERAL BUCKLE, ALL ASSOCIATED PROCEDURES RIGHT EYE. (Right: Eye) SCLERAL BUCKLING. (Right: Eye) Diagnosis: Panuveitis Right [H44.111] Necrosis Retinal Acute Right [H30.131] Pre-op diagnosis: Panuveitis Right [H44.111], Necrosis Retinal Acute Right [H30.131]. Location: [place] [address] / [facility] in [place], [place] Providers: Prakash Graham M.D. Pertinent components of the patient's history including current problem list, medical history, surgical history, family history, social history, medications and allergies were reviewed. Present illness and pre-op diagnosis were confirmed. The planned surgery / procedure was verified with the patient / legal guardian. 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 (+) Hypertension Endocrine/Metabolic (+) Hyperlipidemia Hematologic (+) Chronic Lymphocytic Leukemia Of B Cell Type Not Having Achieved Remission (HCC) Other (+) Obesity Body Mass Index 30-39.9 Adult (+) Presence Of Aortocoronary Bypass Graft OBJECTIVE PHYSICAL EXAMINATION Airway (HEENT) Mallampati: II TM Distance: >3 FB Neck ROM: Full Mouth Opening: >3 cm Cardiovascular Rhythm: Regular Rate: Normal Cardiovascular Assessment: cardiovascular normal Functional Capacity: >4 METS Pulmonary Pulmonary Assessment: Clear General / Constitutional Constitutional Assessment: Normal General State of Health:: calm Neurological Neurologic Assessment: alert and alert and oriented x 3 Dental Dental Assessment: dentition in poor repair ASSESSMENT / PLAN ANESTHESIA PLAN ASA: 3 Anesthesia Plan: general Patient seen and allergies reviewed, anesthesia plan and risks discussed directly with patient /legal guardian or through an chief fishery division. The use of blood products not discussed Approval to Proceed: approved for anesthesia documented in this encounter Plan of Treatment Upcoming Encounters Date Type Department Care Team (Late st Contact Info) Description 07/16/2024 8:45 AM CDT Ancillary Procedure Department of Ophthalmology in [address] [phone] Prakash Graham M.D. [address] [place] [phone] 07/16/2024 9:15 AM CDT Ancillary Procedure Department of Ophthalmology in [address] [phone] Prakash Graham M.D. [address] [place] [phone] 07/16/2024 9:30 AM CDT Office Visit Department of Ophthalmology in [address] [phone] Kenya Garza M.D. [address] [place] [phone] 07/16/2024 12:45 PM CDT Office Visit Department of Ophthalmology in [address] [phone] Prakash Graham M.D. [address] [place] [phone] documented as of this encounter Procedures Procedure [...] mg documented in this encounter Care Teams Shell Machine Operator Relationship Specialty Start Date End Date Elsewhere, Pcp PCP - General Internal Medicine 05/29/19 documented as of this encounter
--- OUTSIDE RECORDS SUMMARY | 2024-06-24 10:05 | XMS_ITS | Encounter Summary ---
Author Organization [facility] Address [address] [place] [phone] Care Team Providers Care Licensed Mortician Name Role Phone Elsewhere, Pcp Primary Care Provider Unavailabl e Reason for Visit * Reason Comments Med Change Request Encounter Details Date Type Department Care Team (Late st Contact Info) Description 06/02/2024 Refill Department of Ophthalmology in [place], [place] [address] [place] [phone] Prakash Graham M.D. [address] [place] [phone] Med Change Request Social History Tobacco Use Types Packs/Day Years Used Date Smoking Tobacco: Former Cigarettes 0.7 70.4 0 03/28/1975 - 01/09/2022 Smokeless Tobacco: Never Comments:On again off again Alcohol Use Standard Drinks/Week Comments Yes 5 (1 standard drink = 0.6 oz pur e alcohol) occasional [facility] Utilities Answer Date Recorded In the past 12 months has [employer], gas, oil, or water [employer] threatened to shut off services in your [...] CDT Ancillary Procedure Department of Ophthalmology in [place], [place] [address] [place] [phone] Prakash Graham M.D. [address] [place] [phone] 07/16/2024 9:15 AM CDT Ancillary Procedure Department of Ophthalmology in [place], [place] [address] [place] [phone] Prakash Graham M.D. [address] [place] [phone] 07/16/2024 9:30 AM CDT Office Visit Department of Ophthalmology in [place], [place] [address] [place] [phone] Kenya Garza M.D. [address] [place] [phone] 07/16/2024 12:45 PM CDT Office Visit Department of Ophthalmology in [place], [place] [address] [place] [phone] Prakash Graham M.D. [address] [place] [phone] documented as of this encounter Visit Diagnoses Not on filedocumented in this encounter Care Teams Licensed Mortician Relationship Specialty Start Date End Date Elsewhere, Pcp PCP - General Internal Medicine 05/29/19 documented as of this encounter
--- OUTSIDE RECORDS SUMMARY | 2024-06-24 10:05 | XMS_ITS | Clinical Summary ---
Author Organization [facility] Address [address] [place] [address] Care Team Providers Care Sandwich Peddler Name Role Phone Elsewhere, Pcp Primary Care Provider Unavailabl e Source Comments Patient records contain information from all sites at [facility]. For routine questions regarding patient records, call [phone] during business hours, M-F 8:00 AM - 5:00 PM Central Time. Record requests for emergency care only can be directed to [phone] at any time.[facility] Allergies Active Allergy Reactions Criticality Noted Date Comments Aller Xt-[place] Blisters,Itching,Ra sh High 06/21/2020 Methotrexate Other (see [...] CDT Office Visit Department of Ophthalmology in [place], [place] [address] [place] [address] Prakash Graham M.D. Necrosis Retinal Acute Right (Primary Dx); Proliferative Vitreoretinopathy Right 06/02/2024 8:00 AM CDT Office Visit Department of Ophthalmology in [place], [place] [address] [place] [address] Prakash Graham M.D. Necrosis Retinal Acute Right (Primary Dx); Proliferative Vitreoretinopathy Right 06/02/2024 Orders Only Pharmacy Prior Auth RO [phone] CrowlorenzaAshly Cassi 06/02/2024 Clinical Communication Department of Ophthalmology in [place], [place] [address] [place] [phone] Prakash Graham M.D. 06/02/2024 Refill Department of Ophthalmology in [place], [place] [address] [place] [phone] Prakash Graham M.D. Med Change Request 06/01/2024 3:08 PM CDT Anesthesia Event [facility] OR [address] [place] [phone] Gaye Giraldo M.D. Sell, David J, FACILITIES PLANT ENGINEER, [facility] 06/01/2024 2:29 PM CDT - 06/01/2024 5:26 PM CDT Surgery [facility] OR [address] [place] [phone] Prakash Graham M.D. VITRECTOMY, PARS PLANA 25 GAUGE, MEMBRANE PEEL, SILICONE OIL 06/01/2024 1:25 PM CDT - 06/01/2024 7:27 PM CDT Hospital Encounter [facility] OR [address] [place] [phone] Prakash Graham M.D. Discharge Disposition: Home or Self Care 05/26/2024 9:45 AM CDT Office Visit Department of Ophthalmology in [address] [phone] Prakash Graham M.D. Necrosis Retinal Acute Right (Primary Dx) 05/20/2024 Clinical Communication Department of Ophthalmology in [address] [phone] Renaldo Hawk M.D. 05/07/2024 2:00 PM CDT Office Visit Department of Ophthalmology in [address] [phone] Renaldo Hawk M.D. Necrosis Retinal Acute Right (Primary Dx); Proliferative Vitreoretinopathy Right; Panuveitis Right; Primary Hypotony Right Eye; Posterior Reversible Encephalopathy Syndrome 05/04/2024 Clinical Communication Department of Ophthalmology in [address] [phone] Kenya Garza M.D. Follow Up Visit from ER 04/27/2024 Clinical Communication Department of Ophthalmology in [address] [phone] Prakash Graham M.D. Surgery today 04/2704/16/2024 2:30 PM CDT Office Visit Department of Ophthalmology in [address] [phone] Kenya Garza M.D. Necrosis Retinal Acute Right (Primary Dx); Proliferative Vitreoretinopathy Right 04/16/2024 2:00 PM CDT Ancillary Procedure Department of Ophthalmology in [address] [phone] Kenya Garza M.D. Necrosis Retinal Acute Right 04/16/2024 1:00 PM CDT Ancillary Procedure Department of Ophthalmology in [address] [phone] Kenya Garza M.D. Necrosis Retinal Acute Right 04/16/2024 12:05 AM CDT Ancillary Procedure Department of Ophthalmology 04/16/2024 Ancillary Procedure Department of Ophthalmology 04/14/2024 2:30 PM CDT Office Visit Department of Ophthalmology in [address] [phone] Prakash Graham M.D. Panuveitis Right (Primary Dx); Proliferative Vitreoretinopathy Right 04/14/2024 2:10 PM CDT Ancillary Procedure Department of Ophthalmology in [address] [phone] Prakash Graham M.D. Panuveitis Right; Necrosis Retinal Acute Right 04/14/2024 11:00 AM CDT Comprehensive Visit Preoperative Evaluation Center in [address] [place] [address] Prakash Graham M.D. Franck Maldonado M.D. Panuveitis Right; Necrosis Retinal Acute Right 04/14/2024 Ancillary Procedure Department of Ophthalmology 04/10/2024 Refill Department of Ophthalmology in [place], [place] [address] [place] [address] Kenya Garza M.D. Med Refill 04/01/2024 Refill Department of Ophthalmology in [place], [place] [address] [place] [address] Raffi Boyd M.D. Med Refill from Last 3 Months Family History Medical History Relation Name Comments Lymphoma Brother Kannan Thibodeaux 2018 Prostate cancer Father Podhora 2001 Stroke Father Podhora Coronary artery disease Mother Afia Thibodeaux Not sure of dates no bypass Diabetes Mother Afia Thibodeaux Heart attack Mother Afia Thibodeaux Relation Name Status Comments Brothhilda Thibodeaux Father Podhora Mother Afia Thibodeaux Social [...] Recorded In the past 12 months has [employer], gas, oil, or water company threatened [...] heating? Somewhat hard 06/27/2020 [facility] [place] of Occupat ional Health - Occupational Stress [...] CDT Ancillary Procedure Department of Ophthalmology in [place], [place] [address] [place] [address] Prakash Graham M.D. [address] [place] [phone] 07/16/2024 9:15 AM CDT Ancillary Procedure Department of Ophthalmology in [place], [place] [address] [place] [address] Prakash Graham M.D. [address] [place] [phone] 07/16/2024 9:30 AM CDT Office Visit Department of Ophthalmology in [place], [place] [address] [place] [address] Kenya Garza M.D. [address] [place] [phone] 07/16/2024 12:45 PM CDT Office Visit Department of Ophthalmology in [place], [place] [address] [place] [phone] Prakash Graham M.D. [address] [place] [phone] Health Maintenance Due Date Last Done Comments [...] this topic Medical Devices Implanted Type Area Assembly Cleaner Device Identifier Shelf Expiration Date Model / Serial / Lot Slv Sclr Rnd 1x2.1x30 - [id number] Implanted:Qty : 1 on 06/01/2024 by Prakash Graham M.D. at [facility] Ocular (Eye) Implant Right: Eye [employer] 11/27/2030 [id number] / / 41 Band Implanted:Qty : 1 on 06/01/2024 by Prakash Graham M.D. at [facility] Ocular (Eye) Implant Right: Eye [employer] S5.1010 / / [id number] Stent Other Stent Other Chest Description:Has stent [...] With Single Break Right Eye Case Notes HEALTH AND SAFETY DIRECTOR @ 1331, TPU 10 VITRECTOMY - PARS PLANA 25 GAUGE 06/01/2024 2:58 PM CDT Panuveitis Right Necrosis Retinal Acute Right Proliferative Vitreoretinopathy Right Retinal Detachment With Single Break Right Eye Case Notes HEALTH AND SAFETY DIRECTOR @ 1331, TPU 10 ULTRASOUND BIOMICROSCOPY - [...] METABOLIC PANEL, S/P Routine 11/05/2023 4:03 PM FOOD PRODUCTION MACHINE OPERATOR Uveitis CT CHEST WITH IV [...] Unknown Provider LAB POCT ORDERABLES- MANUAL POC [facility] [address] [place] [address], [facility] PCLX [facility] POC [address] [place] [address] * LDA ANE NON-SURGICAL AIRWAY (06/01/2024 3:17 [...] ciliary body detachment noted, possible ciliochoroidal effusion. [facility] Kenya Garza M.D. OPHTH ULTRASOUND [...] ciliary body detachment noted, possible ciliochoroidal effusion. [facility] Kenya Garza M.D. OPHTH ULTRASOUND Performing Organization Address [facility] de Phone Number OPHTHALMOLGY NON-IMAGING ORDERS [...] IMAGI NG PROCEDURES Performing Organization Address [facility] de Phone Number IIME NA * Optical Coherence Tomography - Macula/Retina - OU - Both Eyes (04/14/2024 2:22 PM CDT) Narrative OPHTHALMOLOGY IMAGING EXAM - 04/14/2024 4:40 PM CDT Right Eye OCT device used was Spectralis . Left Eye OCT device used was Spectralis . Notes See note from visit on 04/14/2024. Prakash Graham M.D. OPHTH TOMOGRAPHY Performing Organization Address [facility] de Phone Number OPHTHALMOLOGY IMAGING EXAM * (ABNORMAL) Comprehensive Metabolic Panel (11/05/2023 4:03 PM FOOD PRODUCTION MACHINE OPERATOR) Pathologist [facility] Potassium, S 4.4 3.6 - 5.2 mmol/L 11/05/2023 5:04 PM FOOD PRODUCTION MACHINE OPERATOR DTL Sodium, S 139 135 - 145 mmol/L 11/05/2023 5:04 PM FOOD PRODUCTION MACHINE OPERATOR DTL Chloride, S 101 98 - 107 mmol/L 11/05/2023 5:04 PM FOOD PRODUCTION MACHINE OPERATOR DTL Bicarbonate, S 27 22 - 29 mmol/L 11/05/2023 5:04 PM FOOD PRODUCTION MACHINE OPERATOR DTL Anion Gap 11 7 - 15 11/05/2023 5:04 PM FOOD PRODUCTION MACHINE OPERATOR DTL BUN (Blood Urea Nitrogen), S 17 6 - 21 mg/dL 11/05/2023 5:04 PM FOOD PRODUCTION MACHINE OPERATOR DTL Creatinine 0.76 0.59 - 1.04 mg/dL 11/05/2023 5:04 PM FOOD PRODUCTION MACHINE OPERATOR DTL Estimated GFR (eGFR) 86 >=60 mL/min/BS A 11/05/2023 5:04 PM FOOD PRODUCTION MACHINE OPERATOR DTL Comment: Estimated GFR calculated using the 2020 CKD_EPI creatinine equation. Calcium, Total, S 10.1 8.8 - 10.2 mg/dL 11/05/2023 5:20 PM FOOD PRODUCTION MACHINE OPERATOR DTL Glucose, S 104 70 - 140 mg/dL 11/05/2023 5:04 PM FOOD PRODUCTION MACHINE OPERATOR DTL Protein, Total, S 6.1(L) 6.3 - 7.9 g/dL 11/05/2023 5:04 PM FOOD PRODUCTION MACHINE OPERATOR DTL Albumin, S 4.3 3.5 - 5.0 g/dL 11/05/2023 5:04 PM FOOD PRODUCTION MACHINE OPERATOR DTL Aspartate Aminotransferase (AST), S 16 8 - 43 U/L 11/05/2023 5:04 PM FOOD PRODUCTION MACHINE OPERATOR DTL Alkaline Phosphatase, S 81 35 - 104 U/L 11/05/2023 5:04 PM FOOD PRODUCTION MACHINE OPERATOR DTL Alanine Aminotransferase (ALT), S 16 7 - 45 U/L 11/05/2023 5:04 PM FOOD PRODUCTION MACHINE OPERATOR DTL Bilirubin, Total, S 1.2 0.0 - 1.2 mg/dL 11/05/2023 5:04 PM FOOD PRODUCTION MACHINE OPERATOR DTL Blood (Blood, Venous) 11/05/2023 4:03 PM FOOD PRODUCTION MACHINE OPERATOR 11/05/2023 4:41 PM FOOD PRODUCTION MACHINE OPERATOR Kenya Garza M.D. LAB BLOOD ADD-ON [facility] [address] [place] [address], [facility] DTL Formerly [facility] [address] [place] [address] * CT Chest with IV Contrast (03/31/2020 [...] Recently Relevant to Health Maintenance Care Teams Sandwich Peddler Relationship Specialty Start Date End Date Elsewhere, Pcp PCP - General Internal Medicine 05/29/19
--- OUTSIDE RECORDS SUMMARY | 2024-06-24 10:05 | XMS_ITS | Encounter Summary ---
Author Organization [facility] Address [address] [place] [address] Care Team Providers Care Coin Machine Service Repairer Name Role Phone Elsewhere, Pcp Primary Care Provider Unavailabl e Reason for Visit * Outpatient (Routine) - Closed Specialty Diagnoses / Procedures Referred By Contmuriel t Referred To Contact Ophthalmology Prakash Graham M.D. [address] [place] [phone] [facility] Referral ID Status Reason Start Date Expiration Date Visits Re quested Visits Authorized [id number] Closed 03/13/2024 09/12/2025 1 1 Encounter Details Date Type Department Care Team (Latest Contact Info) Description 06/09/2024 10:00 AM CDT Office Visit Department of Ophthalmology in [place], [place] [address] [place] [phone] Prakash Graham M.D. [address] [place] [phone] Necrosis Retinal Acute Right (Primary Dx); [...] How often do you attend yazidism or hindu serv ices? Never 06/27/2020 Do [...] and heating? Somewhat hard 06/27/2020 [facility] [place] of Occupat ional Health - Occupational Stress [...] your living situation today? I have a [employer] place to live 11/05/2023 Education Answer Date [...] Progress Notes * Prakash Graham M.D. - 06/09/2024 10:00 AM CDT # Panuveitis with acute retinal [...] (possible cyclopexy) Status post PPV/SB/ILM/MP/RET/PFO/SO OD 06/01/24 (Graham) Doing well. Stop polytrim Durezol QID then taper 3-2-1 (stay on once a day) PO pred 40-30-20-10 (5 days apiece and stay on 10) Wear shield at night and glasses during the day. Activity restrictions discussed. Call if decreased vision, increased photophobia, pain, discharge or increased redness occurs. Positioning: FD x 3 days Discussed no air travel while gas or air bubble still present in the operative eye. Follow-up in 3-4 weeks, sooner prn documented in this encounter Plan of Treatment Upcoming Encounters Date Type Department Care Team (Late st Contact Info) Description 07/16/2024 8:45 AM CDT Ancillary Procedure Department of Ophthalmology in [place], [place] [address] [place] [phone] Prakash Graham M.D. [address] [place] [phone] 07/16/2024 9:15 AM CDT Ancillary Procedure Department of Ophthalmology in [place], [place] [address] [place] [phone] Prakash Graham M.D. [address] [place] [phone] 07/16/2024 9:30 AM CDT Office Visit Department of Ophthalmology in [place], [place] [address] [place] [phone] Kenya Garza M.D. [address] [place] [phone] 07/16/2024 12:45 PM CDT Office Visit Department of Ophthalmology in [place], [place] [address] [place] [phone] Prakash Graham M.D. [address] [place] [address] documented as of this encounter Visit Diagnoses Diagnosis Necrosis Retinal Acute Right- Primary Proliferative Vitreoretinopathy Right documented in this encounter Care Teams Coin Machine Service Repairer Relationship Specialty Start Date End Date Elsewhere, Pcp PCP - General Internal Medicine 05/29/19 documented as of this encounter
--- OUTSIDE RECORDS SUMMARY | 2024-06-24 10:05 | XMS_ITS | Encounter Summary ---
Author Organization [facility] Address [address] [place] [address] Care Team Providers Care Email Campaign Manager Name Role Phone Elsewhere, Pcp Primary Care Provider Unavailabl e Encounter Details Date Type Department Care Team (Latest Contact Info) Description 06/02/2024 Clinical Communication Department of Ophthalmology in [place], [place] [address] [place] [address] Prakash Graham M.D. [address] [place] [address] Social History Tobacco Use Types Packs/Day Years Used Date Smoking Tobacco: Former Cigarettes 0.7 70.4 0 03/28/1975 - 01/09/2022 Smokeless Tobacco: Never Comments:On again off again Alcohol Use Standard Drinks/Week Comments Yes 5 (1 standard drink = 0.6 oz pur e alcohol) occasional [facility] Utilities Answer Date Recorded In the past 12 months has [employer], gas, oil, or water company threatened to [...] often do you attend latter day or anglican serv ices? Never 06/27/2020 Do [...] medical care, and heating? Somewhat hard 06/27/2020 [facility] [place] of Occupat ional Health - Occupational Stress [...] encounter Miscellaneous Notes * Telephone Encounter - Ruth Garcia - 06/03/2024 12:37 PM CDT This is taken care of * Telephone Encounter - Ruth Garcia - 06/02/2024 12:53 PM CDT Please resend the prednisolone tablets. Pharmacy states they never received the RX. documented in this encounter Plan of Treatment Upcoming Encounters Date Type Department Care Team (Late st Contact Info) Description 07/16/2024 8:45 AM CDT Ancillary Procedure Department of Ophthalmology in [place], [place] [address] [place] [address] Prakash Graham M.D. [address] [place] [address] 07/16/2024 9:15 AM CDT Ancillary Procedure Department of Ophthalmology in [place], [place] [address] [place] [address] Prakash Graham M.D. [address] [place] [address] 07/16/2024 9:30 AM CDT Office Visit Department of Ophthalmology in [place], [place] [address] [place] [address] Kenya Garza M.D. [address] [place] [phone] 07/16/2024 12:45 PM CDT Office Visit Department of Ophthalmology in [place], [place] [address] [place] [phone] Prakash Graham M.D. [address] [place] [phone] documented as of this encounter Visit Diagnoses Not on filedocumented in this encounter Care Teams Email Campaign Manager Relationship Specialty Start Date End Date Elsewhere, Pcp PCP - General Internal Medicine 05/29/19 documented as of this encounter
--- OUTSIDE RECORDS SUMMARY | 2024-06-24 10:05 | XMS_ITS ---
Author Organization [facility] Address [address] [place] [address] Care Team Providers Care Vehicle Body Maker Name Role Phone Unavailable Unavailable Unavailable Surgery Details Not on file Complications Check Surgery Details section. Procedure Estimated Blood Loss Check Surgery Details section. Procedure Findings Check Surgery Details section. Procedure Specimens Taken Check Surgery Details section.
--- OUTSIDE RECORDS SUMMARY | 2024-06-24 10:06 | XMS_ITS | Encounter Summary ---
Author Organization [facility] Address [address] [place] [address] Care Team Providers Care Manager Fine Name Role Phone Elsewhere, Pcp Primary Care Provider Unavailabl e Reason for Visit * Outpatient (Routine) - Closed Specialty Diagnoses / Procedures Referred By Contmuriel t Referred To Contact Anesthesiology Diagnoses Panuveitis Right Necrosis Retinal Acute Right Prakash Graham M.D. [address] [place] [phone] [facility] Referral ID Status Reason Start Date Expiration Date Visits Re quested Visits Authorized [id number] Closed 03/13/2024 09/12/2025 1 1 Encounter Details Date Type Department Care Team (Latest Contact Info) Description 04/14/2024 11:00 AM CDT Comprehensive Visit Preoperative Evaluation Center in [place], [place] [address] [place] [phone] Prakash Graham M.D. [address] [place] [phone] Franck Maldonado M.D. [address] [place] [phone] Panuveitis Right; Necrosis Retinal Acute Right Social History Tobacco Use Types Packs/Day Years Used Date Smoking Tobacco: Former Cigarettes 0.7 70.4 0 03/28/1975 - 01/09/2022 Smokeless Tobacco: Never Tobacco Cessation:Counseling Given: Not Answered Comments:On again off again Alcohol Use Standard Drinks/Week Comments Yes 5 (1 standard drink = 0.6 oz pur e alcohol) occasional [facility] Utilities Answer Date Recorded In [...] How often do you attend taoism or scientology serv ices? Never 06/27/2020 Do [...] hard 06/27/2020 [facility] [place] of Occupat ional Health - Occupational Stress [...] / PLAN 68 yo F (BMI 26) [facility]. [facility] prior to outpatient R vitrectomy w/ Dr. Graham at [facility] on 04/27/2024. # Panuveitis with acute [...] (Metoprolol). # COPD (Anoro Ellipta). # Former residential cigarette smoker, quit 2021. # H/o interstitial pneumonitis related to low-dose MTX with subsequent steroid treatment since hospitalization at in August 2023. # Bullous Pemphigoid (15 [...] minimum ECG (12/2023): Sinus rhythm with short ND with occasional Premature ventricular complexes Septal infarct pattern PATIENT EDUCATION: Reviewed Instructions To Get Ready for Your Surgery or Procedure: [facility] [id number] rev 0124. Written and verbal [...] CDT Ancillary Procedure Department of Ophthalmology in [place], [place] [address] [place] [address] Prakash Graham M.D. [address] [place] [address] 07/16/2024 9:15 AM CDT Ancillary Procedure Department of Ophthalmology in [place], [place] [address] [place] [phone] Prakash Graham M.D. [address] [place] [phone] 07/16/2024 9:30 AM CDT Office Visit Department of Ophthalmology in [place], [place] [address] [place] [phone] Kenya Garza M.D. [address] [place] [phone] 07/16/2024 12:45 PM CDT Office Visit Department of Ophthalmology in [place], [place] [address] [place] [phone] Prakash Graham M.D. [address] [place] [phone] documented as of this encounter Visit Diagnoses Diagnosis Panuveitis Right Necrosis Retinal Acute Right documented in this encounter Care Teams Manager Fine Relationship Specialty Start Date End Date Elsewhere, Pcp PCP - General Internal Medicine 05/29/19 documented as of this encounter
--- OUTSIDE RECORDS SUMMARY | 2024-06-24 10:06 | XMS_ITS | Encounter Summary ---
Author Organization [facility] Address [address] [place] [address] Care Team Providers Care Hide Tanner Name Role Phone Elsewhere, Pcp Primary Care [...] Recorded In the past 12 months has [employer] electric, gas, oil, or water company threatened [...] 06/27/2020 [facility] of Occupat ional Health - [...] your living situation today? [facility] 11/05/2023 Education Answer Date [...] CDT Ancillary Procedure Department of Ophthalmology in [place], [place] [address] [place] [phone] Prakash Graham M.D. [address] [place] [phone] 07/16/2024 9:15 AM CDT Ancillary Procedure Department of Ophthalmology in [address] [phone] Prakash Graham M.D. [address] [place] [phone] 07/16/2024 9:30 AM CDT Office Visit Department of Ophthalmology in [address] [phone] Kenya Garza M.D. [address] [place] [phone] 07/16/2024 12:45 PM CDT Office Visit Department of Ophthalmology in [address] [phone] Prakash Graham M.D. [address] [place] [phone] documented as of this encounter Procedures Procedure [...] System IMG NON RAD IMAGI NG PROCEDURES IIWI NA documented in this encounter Visit Diagnoses Not on filedocumented in this encounter Care Teams Hide Tanner Relationship Specialty Start Date End Date Elsewhere, Pcp PCP - General Internal Medicine 05/29/19 documented as of this encounter
--- OUTSIDE RECORDS SUMMARY | 2024-06-24 10:06 | XMS_ITS | Encounter Summary ---
Author Organization [facility] Address [address] [place] [address] Care Team Providers Care Care Director Name Role Phone Elsewhere, Pcp Primary Care Provider Unavailabl e Encounter Details Date Type Department Care Team (Latest Contact Info) Description 05/20/2024 Clinical Communication Department of Ophthalmology in [place], [place] [address] [place] [address] Renaldo Hawk M.D. [address] [place] [address] Social History Tobacco Use Types Packs/Day Years Used Date Smoking Tobacco: Former Cigarettes 0.7 70.4 0 03/28/1975 - 01/09/2022 Smokeless Tobacco: Never Comments:On again off again Alcohol Use Standard Drinks/Week Comments Yes 5 (1 standard drink = 0.6 oz pur e alcohol) occasional [facility] Utilities Answer Date Recorded In the past 12 months has [employer], gas, oil, or water [email or web address] threatened to shut off services in your home? No 11/05/2023 Social Connection and Isolation Panel [NHANES] A nswer Date Recorded In a typical week, how many times do you talk on the phone with family, friends, or neighbors? Once a week 06/27/2020 How often do you get together with friends or re latives? Never 06/27/2020 How often do you attend presybeterian or yazidism serv ices? Never 06/27/2020 Do [...] heating? Somewhat hard 06/27/2020 [facility] [place] of Occupat ional Health - Occupational Stress [...] your living situation today? I have a [facility] place to live 11/05/2023 Education [...] CDT Ancillary Procedure Department of Ophthalmology in [place], [place] [address] [place] [phone] Prakash Graham M.D. [address] [place] [phone] 07/16/2024 9:15 AM CDT Ancillary Procedure Department of Ophthalmology in [place], [place] [address] [place] [phone] Prakash Graham M.D. [address] [place] [phone] 07/16/2024 9:30 AM CDT Office Visit Department of Ophthalmology in [place], [place] [address] [place] [phone] Kenya Garza M.D. [address] [place] [phone] 07/16/2024 12:45 PM CDT Office Visit Department of Ophthalmology in [address] [phone] Prakash Graham M.D. [address] [place] [phone] documented as of this encounter Visit Diagnoses Not on filedocumented in this encounter Care Teams Care Director Relationship Specialty Start Date End Date Elsewhere, Pcp PCP - General Internal Medicine 05/29/19 documented as of this encounter
--- OUTSIDE RECORDS SUMMARY | 2024-06-24 10:06 | XMS_ITS | Encounter Summary ---
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 200 [place] [address] Referral ID Status Reason Start Date Expiration Date Visits Re quested Visits Authorized [id number] 1 1 Encounter Details Date Type Department Care Team (Late st Contact Info) Description 06/01/2024 2:29 PM CDT - 06/01/2024 5:26 PM CDT Surgery [facility] OR [address] [place] [phone] Prakash Graham M.D. [address] [place] [phone] VITRECTOMY, PARS PLANA 25 GAUGE, MEMBRANE PEEL, [...] How often do you attend mu-ism or mandaeism serv ices? Never 06/27/2020 Do [...] and heating? Somewhat hard 06/27/2020 [facility] of Occupat ional Health - Occupational [...] your living situation today? I have a [facility] place to live 11/05/2023 Education Answer [...] 2:07 PM CDT documented in this encounter Discharge Instructions * Discharge Instructions* Nesha Lucio R.N. - 06/01/2024 6:25 PM CDT Instructions after eye surgery Starting 06/01/2024 Keep your eye patch on overnight. It will be removed tomorrow in clinic during your clinic visit. You do NOT need to use any eye drops until after your follow- up visit tomorrow. Positioning: If the bubble of gas, air, or silicone oil was placed in the eye during surgery, a specific head position will be required. This position should be maintained for as much of the time as possible. The bubble will hold the retina in position as the retina heals. Very important: If you have a gas air bubble, do not fly in an airplane, do not go to high altitude, scuba dive, or undergo elective surgery (nitrous oxide). YOUR POSITION: Face down for 3 days. Sleep on your sides. Do not rest or sleep on your back. Activities: If you have been instructed to maintain a certain head position, it is important to comply. During the first week, do not engage in vigorous activity. Lifting is restricted to 10 lb. Avoid areas that are kayleen or dirty. Avoid sexual activity for 1 week. When washing hair, avoid getting the tap water into the operated eye. Pain: Pain will be worse at about 12-24 hours after the operation as the anesthetic wears off. After this period, the pain will decrease over the next several days. Take pain medications as recommended by your doctor. Call your doctor if the pain should get worse. Most cases do not require a prescriptions for pain medications yet this depends upon the type of surgery. In general, we recommend jekr-qct-hkyzeac pain medications such as Extra Strength Tylenol. Check with your doctor before using Aspirin, Motrin, Advil, or Aleve. Shield or glasses: For the first week after surgery, you must wear a pair of glasses (any type) or hard shield at all times (awake or sleeping) to make sure that the eye is not accidentally bumped. Wear the shield when sleeping or napping. It is okay to stop wearing this protection after 10 days. It is not necessary to wear a soft patch under the hard shield unless otherwise instructed. Other: There may be a mild, bloody discharge or mattering from the eye. Your eye may also remain red for up to 4-6 weeks after surgery. This is normal and should decrease slowly over time. If these conditions worsen, please contact the office for evaluation. Any questions or concerns please call [phone] (Business hours) [phone] (Evenings and weekends, ask for the Rubber Tire Curer sludge filtration attendant) Instructions After Sedation or Anesthesia After you have sedation or anesthesia, it is common to have lapses of memory, slowed reaction time and impaired judgment. Do not drive or operate motorized vehicles or equipment for the rest of the day. This is for your safety and the safety of others. Air travel by yourself on the day of your procedure is not advised. For the rest of the day: Rest. Do not return to work or school. Do not take on responsibility for children or anyone who depends on your care. Do not use exercise equipment or take part in rough play or sports. Do not drink alcoholic beverages. Sedation or anesthesia medication also may increase your risk of falling. Use caution and ask for help when you walk or move around. You may want to have someone help you for the rest of the day. You may resume your usual diet when you feel able to do so, unless you are told otherwise. Contact your health care provider if you have: The following side effects longer than 24 hours: Ongoing dizziness. Persistent nausea or repeated vomiting. Signs of infection, which may include: Temperature of 100.4 degrees Fahrenheit (38 degrees Celsius) or higher. Chills. An Increase in swelling, tenderness, or redness at the site. Increased pain or pain not helped by pain medication. A bad-smelling odor from the site New drainage or an increase in drainage coming from the site A change in skin color at the site. This change may be a shade of red, purple or brown, depending on your skin color. documented in this encounter Medications at Time [...] affected eye(s) 3 (three) times a day. lisinopriL (PRINIVIL,ZESTRIL) 20 mg tablet Take 20 mg by mouth daily. 01/23/2024 magnesium oxide (MAG-OX) 400 mg (241.3 mg magnesium) tablet Take 400 mg by mouth daily. metFORMIN (GLUCOPHAGE) 1,000 mg tablet Take 1,000 mg by mouth daily. 01/23/2024 valACYclovir (VALTREX) 1000 mg tablet Take 1 tablet (1,000 mg total) by mouth 3 (three) times a day. 270 tablet 1 01/23/2024 ipratropium-albutero L (DUONEB) 0.5-2.5 mg/3 mL nebulizer solution INHALE ONE VIAL VIA NEBULIZER EVERY 4 HOURS FOR 3 DAYS AND THEN CAN DECREASE TO NEEDED. 06/09/2020 nitroglycerin (NITROSTAT) 0.[address] [...] 1 puff once daily. 1 each 07/06/2020 difluprednate (DurezoL) 0.05 % ophthalmic emulsion Administer 1 drop into the right eye 2 (two) times a day. Stop prednisolone when you start difluprednate 5 mL 3 04/16/2024 06/02/2024 predniSONE (DELTASONE) 5 mg tablet Take 2 tablets (10 mg total) by mouth daily. Take the entire dose in the AM with food 60 tablet 1 01/23/2024 06/02/2024 polymyxin B-trimethoprim (Polytrim) 10,000 unit- 1 mg/mL ophthalmic solution Administer 1 drop into the right eye 4 (four) times a day for 7 days. 10 mL 06/02/2024 06/02/2024 documented as of this encounter OR Notes * Op Note - Prakash Graham M.D. 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 Findings As expected Complications None Operative Note Narrative A 360 degree conjunctival peritomy was fashioned with forceps and Ricardo scissors. The quadrants were dissected posteriorly with [place] scissors and there were no areas of visible scleral thinning. The rectus muscles were isolated, cleaned, and tagged with 2 0 silk sutures. A 41 band was placed around the eye beneath the rectus muscles and the Watzke sleeve was placed in the superonasal quadrant. A 5 0 Nylon suture was passed in each quadrant to secure the scleral buckle. A standard 3-port pars plana vitrectomy setup was achieved with angled trocar incisions 3.5 to 4 mmposterior to the surgical limbus. The inferotemporal port was placed first, and a pre-tested infusion line was inserted and turned on after verification of positioning with the light pipe. The infusion was then taped and secured. The superonasal and superotemporal ports were placed in a similar fashion. Visualization revealed appropriate height of the scleral buckle with perfusion of the optic nerve. Diffuse areas of previous retinitis or scarred down for 360?? in the mid peripheral retina. The vitreous base was tracked posteriorly, and had diffuse contraction and cyclitic membranes. The hyaloid was still down, and there was a combined rhegmatogenous and tractional retinal detachment involving the nasal and inferior retina with the macula detached. A pre retinal closed today which are not the band was present on the optic nerve to the mid peripheral retina nasally. Temporally there was a diffuse sheet of proliferative vitreoretinopathy membranes and star fold at 11:00. A small retinal holewas noted at 3:00. The optic nerve head had diffuse pallor. A core vitrectomy was performed with indirect non-contact lens visualization. Vitreous cutter was used to carefully induce a posterior vitreous detachment. A peripheral vitrectomy was then performed aided by scleral depression and triamcinolone visualization. Triamcinolone and indocyanine green were instilled in the vitreous cavity to further visualize any remaining vitreous gel and the internal limiting membrane. The internal limiting membrane forceps were then used to remove the internal limiting membrane and epiretinal membrane over the macular and its entirety. Using a combination of a max circus train supervisor forceps, lighted pick, and a vitreous cutter the proliferative vitreoretinopathy membranes were peeled their entirety. There was still retinal stiffeningand foreshortening of the retina leading to inability of the retina to unfold completely. Thus, thedecision was made to proceed with 270 degree inferior retinectomy. The retinectomy was marked from t he 12 to 9 o'clock using diathermy and was completed using the vitreous cutter. Additionally, due to hypotony, likely from cyclitic membranes, using a combination of the vitreous cutter and max circus train supervisor forceps the contracted anterior hyaloid and vitreous base were peeled in their entirety of to the ora beverly. Perfluorocarbon was instilled the vitreous cavity and used to flatten the retina. With the retina flattened under perfluorocarbon, the endolaser probe was then introduced and used to perform laser barricade from ora to ora along the edge of the retinectomy. An air-fluid exchange was performed followed by a rinse with balanced salt solution. The eye was then filled out a normal physiological pressure by digital palpation with 1000 centistoke silicone oil. The vitrectomy ports were removed and closed with 6-0 plain gut. Subconjunctival Ancef and dexamethasone were injected. Topically-administered medications included Maxitrol. The patient was patched and shielded and turned over to the anesthesia team having tolerated the procedure well. The patient will position face down and follow-up tomorrow. Tera Graham M.D. * Brief Op Note - Prakash Graham M.D. - 06/01/2024 4:04 PM CDT Pre-op Diagnosis Panuveitis Right,Necrosis Retinal Acute Right Post-op Diagnosis Panuveitis Right,Necrosis Retinal Acute Right Findings As expected. Complications None Tera Graham M.D. documented in this encounter Plan of Treatment Upcoming Encounters Date Type Department Care Team (Late st Contact Info) Description 07/16/2024 8:45 AM CDT Ancillary Procedure Department of Ophthalmology in [address] [phone] Prakash Graham M.D. [address] [place] [phone] 07/16/2024 9:15 AM CDT Ancillary Procedure Department of Ophthalmology in [address] [phone] Prakash Graham M.D. [address] [place] [phone] 07/16/2024 9:30 AM CDT Office Visit Department of Ophthalmology in [address] [phone] Kenya Garza M.D. [address] [place] [phone] 07/16/2024 12:45 PM CDT Office Visit Department of Ophthalmology in [address] [phone] Prakash Graham M.D. 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 Retinal Detachment With Single Break Right Eye Case Notes CLINICAL INFORMATICS EDUCATOR @ 1331, TPU 10 documented in this encounter Results * (ABNORMAL) Glucose, POCT (06/01/2024 6:36 PM CDT) Glucose, POCT, B 207(H) 70 - 140 mg/dL 06/01/2024 6:46 PM CDT PCLX Site Capillary 06/01/2024 6:46 PM CDT PCLX Blood 06/01/2024 6:36 PM CDT 06/01/2024 6:47 PM CDT Unknown Provider LAB POCT ORDERABLES- MANUAL Performing Organization Address City/State/[facility] Co de Phone Number POC [facility] [address] [place] [address], [facility] PCLX [facility] POC [address] [place] [address] documented in this encounter Visit Diagnoses Diagnosis Panuveitis Right Necrosis Retinal Acute Right Chronic Obstructive Pulmonary Disease Without Exacerbation (HCC) Panuveitis Right Necrosis Retinal Acute Right Proliferative [...] eye. 1406 (Given - Provid er: Rosalba J Julian, R.N.)1411 (Given - Provider: Rosalba Jordan R.N.)1416 [...] (New Bag - Prov ider: Nesha Lucio R.NWhitney) balanced salt solution ophthalmic irrigation (BSS) (CANCELED) [...] For 1 dose, Intra-Op, Inject into RIGHT. 1815 (Given - Provid er: Pranay Hubbard M.D., Ph.D.) fentaNYL injection 25 mcg (Sublimaze) (CANCELED) 25 mcg, intravenous, Every 2 min PRN, moderate pain or score 4-6 of 10, severe pain or score 7-10 of 10, Starting on Sat06/01/24 at 1843, PACU (only), Up to maximum total dose of 200 mcg 1905 (Given - Provid er: Nesha Lucio R.N.)1913 [...] NPO) documented in this encounter Care Teams Loader [employer]iconductor Dies Relationship Specialty Start Date End Date Elsewhere, Pcp PCP - General Internal Medicine 05/29/19 documented as of this encounter
--- OUTSIDE RECORDS SUMMARY | 2024-06-24 10:06 | XMS_ITS | Encounter Summary ---
Author Organization [facility] Address [address] [place] [address] Care Team Providers Care Cotton Classer Aide Name Role Phone Elsewhere, Pcp Primary Care Provider Unavailabl e Reason for Visit * Outpatient (Routine) - Closed Specialty Diagnoses / Procedures Referred By Contmuriel t Referred To Contact Ophthalmology Prakash Graham M.D. [address] [place] [phone] [facility] Referral ID Status Reason Start Date Expiration Date Visits Re quested Visits Authorized [id number] Closed 03/16/2024 09/15/2025 1 1 Encounter Details Date Type Department Care Team (Latest Contact Info) Description 04/14/2024 2:30 PM CDT Office Visit Department of Ophthalmology in [place], [place] [address] [place] [phone] Prakash Graham M.D. [address] [place] [phone] Panuveitis Right (Primary Dx); Proliferative Vitreoretinopathy Right Social History Tobacco Use Types Packs/Day Years Used Date Smoking Tobacco: Former Cigarettes 0.7 70.4 0 03/28/1975 - 01/09/2022 Smokeless Tobacco: Never Comments:On again off again Alcohol Use Standard Drinks/Week Comments Yes 5 (1 standard drink = 0.6 oz pur e alcohol) occasional C Utilities Answer Date Recorded In the past 12 months has [employer], gas, oil, or water company threatened [...] How often do you attend caodaism or sikhism serv ices? Never 06/27/2020 Do [...] heating? Somewhat hard 06/27/2020 [facility] [place] of Occupat ional Health - Occupational Stress [...] CDT Ancillary Procedure Department of Ophthalmology in [address] [phone] Prakash Graham M.D. [address] [place] [phone] 07/16/2024 9:15 AM CDT Ancillary Procedure Department of Ophthalmology in [address] [phone] Prakash Graham M.D. [address] [place] [phone] 07/16/2024 9:30 AM CDT Office Visit Department of Ophthalmology in [address] [phone] Kenya Garza M.D. [address] [place] [phone] 07/16/2024 12:45 PM CDT Office Visit Department of Ophthalmology in [address] [phone] Prakash Graham M.D. 200 [place] [phone] documented as of this encounter Visit Diagnoses Diagnosis Panuveitis Right- Primary Proliferative Vitreoretinopathy Right documented in this encounter Care Teams Cotton Classer Aide Relationship Specialty Start Date End Date Elsewhere, Pcp PCP - General Internal Medicine 05/29/19 documented as of this encounter
--- OUTSIDE RECORDS SUMMARY | 2024-06-24 10:06 | XMS_ITS | Encounter Summary ---
Author Organization [facility] Address [address] [place] [address] Care Team Providers Care Photography Instructor Name Role Phone Elsewhere, Pcp Primary Care Provider Unavailabl e Encounter Details Date Type Department Care Team (Latest Contact Info) Description 04/16/2024 1:00 PM CDT Ancillary Procedure Department of Ophthalmology in [place], [place] [address] [place] [address] Kenya Garza M.D. [address] [place] [address] Necrosis Retinal Acute Right Social History Tobacco Use Types Packs/Day Years Used Date Smoking Tobacco: Former Cigarettes 0.7 70.4 0 03/28/1975 - 01/09/2022 Smokeless Tobacco: Never Comments:On again off again Alcohol Use Standard Drinks/Week Comments Yes 5 (1 standard drink = 0.6 oz pur e alcohol) occasional [facility] Utilities Answer Date Recorded In the past 12 months has [employer], gas, oil, or water [employer] threatened to shut off services in your [...] medical care, and heating? Somewhat hard 06/27/2020 [employer] [place] of Occupat ional Health - Occupational Stress [...] CDT Ancillary Procedure Department of Ophthalmology in [place], [place] [address] [place] [phone] Prakash Graham M.D. [address] [place] [phone] 07/16/2024 9:15 AM CDT Ancillary Procedure Department of Ophthalmology in [place], [place] [address] [place] [phone] Prakash Graham M.D. [address] [place] [phone] 07/16/2024 9:30 AM CDT Office Visit Department of Ophthalmology in [place], [place] [address] [place] [phone] Kenya Garza M.D. [address] [place] [phone] 07/16/2024 12:45 PM CDT Office Visit Department of Ophthalmology in [place], [place] [address] [place] [phone] Prakash Graham M.D. [address] [place] [phone] (work) documented as of this encounter Procedures Procedure [...] ciliary body detachment noted, possible ciliochoroidal effusion. [facility] Kenya Garza M.D. OPHTH ULTRASOUND OPHTHALMOLGY NON-IMAGING ORDERS documented in this encounter Visit Diagnoses Diagnosis Necrosis Retinal Acute Right documented in this encounter Care Teams Photography Instructor Relationship Specialty Start Date End Date Elsewhere, Pcp PCP - General Internal Medicine 05/29/19 documented as of this encounter
--- OUTSIDE RECORDS SUMMARY | 2024-06-24 10:06 | XMS_ITS | Encounter Summary ---
Author Organization [facility] Address [address] [place] [address] Care Team Providers Care Weatherization Coordinator Name Role Phone Elsewhere, Pcp Primary Care Provider Unavailabl e Encounter Details Date Type Department Care Team (Latest Contact Info) Description 04/14/2024 2:10 PM CDT Ancillary Procedure Department of Ophthalmology in [place], [place] [address] [place] [address] Prakash Graham M.D. [address] [place] [address] Panuveitis Right; Necrosis Retinal Acute Right Social History Tobacco Use Types Packs/Day Years Used Date Smoking Tobacco: Former Cigarettes 0.7 70.4 0 03/28/1975 - 01/09/2022 Smokeless Tobacco: Never Comments:On again off again Alcohol Use Standard Drinks/Week Comments Yes 5 (1 standard drink = 0.6 oz pur e alcohol) occasional [facility] Utilities Answer Date Recorded In the past 12 months has [employer], gas, oil, or water [employer] threatened to shut off services in your home? No 11/05/2023 Social Connection and Isolation Panel [NHANES] A nswer Date Recorded In a typical week, how many times do you talk on the phone with family, friends, or neighbors? Once a week 06/27/2020 How often do you get together with friends or re latives? Never 06/27/2020 How often do you attend anglican or hinduism serv ices? Never 06/27/2020 Do [...] medical care, and heating? Somewhat hard 06/27/2020 [facility] of Occupat ional Health [...] CDT Ancillary Procedure Department of Ophthalmology in [place], [place] [address] [place] [phone] Prakash Graham M.D. [address] [place] [phone] 07/16/2024 9:15 AM CDT Ancillary Procedure Department of Ophthalmology in [place], [place] [address] [place] [phone] Prakash Graham M.D. [address] [place] [phone] 07/16/2024 9:30 AM CDT Office Visit Department of Ophthalmology in [place], [place] [address] [place] [phone] Kenya Garza M.D. [address] [place] [phone] 07/16/2024 12:45 PM CDT Office Visit Department of Ophthalmology in [place], [place] [address] [place] [phone] Prakash Graham M.D. [address] [place] [phone] documented as of this encounter Procedures Procedure [...] Right documented in this encounter Care Teams Weatherization Coordinator Relationship Specialty Start Date End Date Elsewhere, Pcp PCP - General Internal Medicine 05/29/19 documented as of this encounter
--- OUTSIDE RECORDS SUMMARY | 2024-06-24 10:06 | XMS_ITS | Encounter Summary ---
Author Organization [facility] Address [address] [place] [address] Care Team Providers Care Publication Manager Name Role Phone Elsewhere, Pcp Primary Care Provider Unavailabl e Reason for Referral * Outpatient (Routine) - Closed Specialty Diagnoses / Procedures Referred By Apolinar t Referred To Contact Ophthalmology Renaldo Hawk M.D. [address] [place] [phone] Prakash Graham M.D. [address] [place] [phone] Referral ID Status Reason Start Date Expiration Date Visits Re quested Visits Authorized [id number] Closed 05/17/2024 11/16/2025 1 1 Scheduling Instructions VTD both eyes Can use urgent slot Encounter Details Date Type Department Care Team (Latest Contact Info) Description 05/07/2024 2:00 PM CDT Office Visit Department of Ophthalmology in [place], [place] [address] [place] [phone] Renaldo Hawk M.D. [address] [place] [phone] Necrosis Retinal Acute Right (Primary Dx); [...] How often do you attend scientology or pentecostalism serv ices? Never 06/27/2020 Do [...] hard 06/27/2020 [facility] [place] of Occupat ional Health - Occupational Stress [...] CDT Ancillary Procedure Department of Ophthalmology in [place], [place] [address] [place] [phone] Prakash Graham M.D. [address] [place] [phone] 07/16/2024 9:15 AM CDT Ancillary Procedure Department of Ophthalmology in [place], [place] [address] [place] [phone] Prakash Graham M.D. [address] [place] [phone] 07/16/2024 9:30 AM CDT Office Visit Department of Ophthalmology in [place], [place] [address] [place] [phone] Kenya Garza M.D. [address] [place] [address] 07/16/2024 12:45 PM CDT Office Visit Department of Ophthalmology in [place], [place] [address] [place] [address] Prakash Graham M.D. 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
--- OUTSIDE RECORDS SUMMARY | 2024-06-24 10:06 | XMS_ITS | Encounter Summary ---
Author Organization [facility] Address [address] [place] [address] Care Team Providers Care Bread Molder Name Role Phone Elsewhere, Pcp Primary Care Provider Unavailabl e Reason for Visit * Reason Onset Date Comments Follow Up Visit from ER 05/04/2024 Encounter Details Date Type Department Care Team (Latest Contact Info) Description 05/04/2024 Clinical Communication Department of Ophthalmology in [place], [place] [address] [place] [address] Kenya Garza M.D. [address] [place] [address] Follow Up Visit from ER Social History Tobacco Use Types Packs/Day Years Used Date Smoking Tobacco: Former Cigarettes 0.7 70.4 0 03/28/1975 - 01/09/2022 Smokeless Tobacco: Never Comments:On again off again Alcohol Use Standard Drinks/Week Comments Yes 5 (1 standard drink = 0.6 oz pur e alcohol) occasional [facility] Utilities Answer Date Recorded In the past 12 months has [employer], gas, oil, or water company threatened [...] How often do you attend evangelical or moravian serv ices? Never 06/27/2020 Do [...] medical care, and heating? Somewhat hard 06/27/2020 [facility] of Occupat ional Health - [...] CDT Ancillary Procedure Department of Ophthalmology in [place], [place] [address] [place] [phone] Prakash Graham M.D. [address] [place] [phone] 07/16/2024 9:15 AM CDT Ancillary Procedure Department of Ophthalmology in [place], [place] [address] [place] [phone] Prakash Graham M.D. [address] [place] [phone] 07/16/2024 9:30 AM CDT Office Visit Department of Ophthalmology in [place], [place] [address] [place] [phone] Kenya Garza M.D. [address] [place] [phone] 07/16/2024 12:45 PM CDT Office Visit Department of Ophthalmology in [place], [place] [address] [place] [phone] Prakash Graham M.D. [address] [place] [phone] documented as of this encounter Visit Diagnoses Not on filedocumented in this encounter Care Teams Bread Molder Relationship Specialty Start Date End Date Elsewhere, Pcp PCP - General Internal Medicine 05/29/19 documented as of this encounter
--- OUTSIDE RECORDS SUMMARY | 2024-06-24 10:06 | XMS_ITS | Encounter Summary ---
Author Organization [facility] Address 200 [place] [address] Care Team Providers Care Utilization Review Specialist Name Role Phone Elsewhere, Pcp Primary Care Provider Unavailabl e Reason for Visit * Auth/Cert (Routine) Specialty Diagnoses / Procedures Referred By Apolinar t Referred To Contact Diagnoses Panuveitis Right Necrosis Retinal Acute Right Panuveitis Right [H44.111] Necrosis Retinal Acute Right [H30.131] Procedures NH VITRECT W RMVL PRERETINAL MEMB NH RPR DETACH RETINA CMPLX VITRECTOMY - PARS PLANA 25 GAUGE / MEMBRANE PEEL / SILICONE OIL AND ALL ASSOCIATED PROCEDURES RIGHT EYE SCLERAL BUCKLING Prakash Graham M.D. 200 [place] [address] Referral ID Status Reason Start Date Expiration Date Visits Re quested Visits Authorized [id number] 1 1 Encounter Details Date Type Department Care Team (Latest Contact Info) Description 06/01/2024 1:25 PM CDT - 06/01/2024 7:27 PM CDT Hospital Encounter [facility] [address] [place] [phone] Prakash Graham M.D. 200 [place] [phone] Discharge Disposition: Home or Self Care Social History Tobacco Use Types Packs/Day Years Used Date Smoking Tobacco: Former Cigarettes 0.7 70.4 0 03/28/1975 - 01/09/2022 Smokeless Tobacco: Never Comments:On again off again Alcohol Use Standard Drinks/Week Comments Yes 5 (1 standard drink = 0.6 oz pur e alcohol) occasional [facility] Utilities Answer Date Recorded In [...] How often do you attend samaritan or hinduism serv ices? Never 06/27/2020 Do [...] heating? Somewhat hard 06/27/2020 [facility] [place] of Occupat ional Health - Occupational Stress [...] type of surgery. In general, we recommend [id number] pain medications such as Extra Strength Tylenol. [...] evaluation. Any questions or concerns please call [phone] (Business hours) [phone] (Evenings and weekends, ask for the Claim Processing Specialist nutrition program instructor) Instructions After Sedation or Anesthesia After you [...] Retinal Detachment With Single Break Right Eye Newsstand Vendor A anesthesiologist assistant actively participated and was necessary for [...] entirety. Using a combination of a max semiconductor wafers etch operator forceps, lighted pick, and a vitreous cutter [...] combination of the vitreous cutter and max semiconductor wafers etch operator forceps the contracted anterior hyaloid and vitreous [...] Ancillary Procedure Department of Ophthalmology in [address] [phone] Prakash Graham M.D. [address] [place] [phone] 07/16/2024 9:15 AM CDT Ancillary Procedure Department of Ophthalmology in [address] [phone] Prakash Graham M.D. [address] [place] [phone] 07/16/2024 9:30 AM CDT Office Visit Department of Ophthalmology in [address] [phone] Kenya Garza M.D. [address] [place] [phone] 07/16/2024 12:45 PM CDT Office Visit Department of Ophthalmology in [address] [phone] Prakash Graham M.D. 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 Break Right Eye Case Notes REFERENCE LIBRARY ASSISTANT @ 1331, TPU 10 VITRECTOMY - PARS PLANA 25 GAUGE 06/01/2024 2:58 PM CDT Panuveitis Right Necrosis Retinal Acute Right Proliferative Vitreoretinopathy Right Retinal Detachment With Single Break Right Eye Case Notes REFERENCE LIBRARY ASSISTANT @ 1331, TPU 10 documented in this encounter Results * (ABNORMAL) Glucose, POCT (06/01/2024 6:36 PM CDT) Glucose, POCT, B 207(H) 70 - 140 mg/dL 06/01/2024 6:46 PM CDT PCLX Site Capillary 06/01/2024 6:46 PM CDT PCLX Blood 06/01/2024 6:36 PM CDT 06/01/2024 6:47 PM CDT Unknown Provider LAB POCT ORDERABLES- MANUAL POC [facility] [address] [place] [address], [facility] PCLX [facility] POC [address] [place] [address] documented in this encounter Visit Diagnoses Diagnosis [...] (New Bag - Prov ider: Nesha Lucio RWhitneyN.) balanced salt solution ophthalmic irrigation (BSS) (CANCELED) [...] to maximum total dose of 200 mcg 1904 (Given - Provid er: Nesha Lucio R.N.)1913 [...] NPO) documented in this encounter Care Teams Utilization Review Specialist Relationship Specialty Start Date End Date Elsewhere, Pcp PCP - General Internal Medicine 05/29/19 documented as of this encounter
--- OUTSIDE RECORDS SUMMARY | 2024-06-24 10:06 | XMS_ITS | Encounter Summary ---
Author Organization [facility] Address [address] [place] [address] Care Team Providers Care Cook Mess Name Role Phone Elsewhere, Pcp Primary Care Provider Unavailabl e Reason for Referral * Outpatient (Routine) - Authorized Specialty Diagnoses / Procedures Referred By Apolinar lopez Referred To Contact Ophthalmology Kenya Garza M.D. 200 [place] [address] [facility] Referral ID Status Reason Start Date Expiration Date V isits Requested Visits Authorized [id number] Authorized 04/16/2024 10/16/2025 1 1 Scheduling Instructions I will see her on the same day as one of the post-op visits. (Probably the one after early May.) Reason for Visit * Reason Comments Follow-up * Outpatient (Routine) - Closed Specialty Diagnoses / Procedures Referred By Apolinar lopez Referred To Contact Ophthalmology Diagnoses Necrosis Retinal Acute Right Kenya Garza M.D. 200 [place] [address] [facility] Referral ID Status Reason Start Date Expiration Date Visits Re quested Visits Authorized [id number] Closed 03/13/2024 09/12/2025 1 1 Encounter Details Date Type Department Care Team (Latest Contact Info) Description 04/16/2024 2:30 PM CDT Office Visit Department of Ophthalmology in [place], [place] [address] [place] [phone] Kenya Garza M.D. 200 [place] [address] Necrosis Retinal Acute Right (Primary Dx); Proliferative [...] How often do you attend confucianist or restorationism serv ices? Never 06/27/2020 Do [...] heating? Somewhat hard 06/27/2020 [facility] [place] of Occupat ional Health - Occupational Stress [...] with tobramycin drops without improvement. She saw sanitizer Dr. Daisy Ivy on 10/23/23. [facility] [...] has not been able to see her design consultant oncologist recently because every time she went to an appointment she was sent to the emergency room due to elevated blood pressure. In August 2023, she was sent from an infusion center to [place] emergency department where shewas found to have oxygen saturations of 78%. CT imaging showed worsening bilateral ground glass opacities. A CT scan was negative for pulmonary embolism. She was transferred to [facility] for additional pulmonology care. On [...] three times in the past three months: [place] (09/02/23 for hypercalcemiaand acute kidney injury - had CT chest/abdomen/pelvis to assess for malignancy), [facility] again. Each time she saw [...] (Her oncologist is at [facility].) MEDICATIONS Prednisolone every hour while awake [...] shallow retinal detachment. No T sign noted. [facility] Macula OCT of the right eye [...] vs subhyaloid opacities. No T sign noted. [facility]. PLAN There is slow involution of the [...] rule out shallow detachment vs subhyaloid opacities. [facility] PLAN: It has been 21 days [...] ciliary body detachment noted, possible ciliochoroidal effusion. [facility] PLAN Continue the current eye drops and [...] CDT Ancillary Procedure Department of Ophthalmology in [place], [place] [address] [place] [address] Prakash Graham M.D. [address] [place] [phone] 07/16/2024 9:15 AM CDT Ancillary Procedure Department of Ophthalmology in [place], [place] [address] [place] [phone] Prakash Graham M.D. [address] [place] [phone] 07/16/2024 9:30 AM CDT Office Visit Department of Ophthalmology in [place], [place] [address] [place] [phone] Kenya Garza M.D. [address] [place] [phone] 07/16/2024 12:45 PM CDT Office Visit Department of Ophthalmology in [place], [place] [address] [place] [phone] Prakash Graham M.D. 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
--- OUTSIDE RECORDS SUMMARY | 2024-06-24 10:06 | XMS_ITS | Encounter Summary ---
Author Organization [facility] Address [address] [place] [address] Care Team Providers Care Assembly Leader Name Role Phone Elsewhere, Pcp Primary Care Provider Unavailabl e Encounter Details Date Type Department Care Team (Latest Contact Info) Description 04/16/2024 2:00 PM CDT Ancillary Procedure Department of Ophthalmology in [place], [place] [address] [place] [address] Kenya Garza M.D. [address] [place] [address] Necrosis Retinal Acute Right Social History Tobacco Use Types Packs/Day Years Used Date Smoking Tobacco: Former Cigarettes 0.7 70.4 0 03/28/1975 - 01/09/2022 Smokeless Tobacco: Never Comments:On again off again Alcohol Use Standard Drinks/Week Comments Yes 5 (1 standard drink = 0.6 oz pur e alcohol) occasional [facility] Utilities Answer Date Recorded In the past 12 months has [employer], gas, oil, or water [employer] threatened to shut off services in your home? No 11/05/2023 Social Connection and Isolation Panel [NHANES] A nswer Date Recorded In a typical week, how many times do you talk on the phone with family, friends, or neighbors? Once a week 06/27/2020 How often do you get together with friends or re latives? Never 06/27/2020 How often do you attend lutheran or caodaism serv ices? Never 06/27/2020 Do [...] medical care, and heating? Somewhat hard 06/27/2020 [facility] [place] of Occupat ional Health - Occupational Stress [...] Department of Ophthalmology in [place], [place] [address] [place] [phone] Prakash Graham M.D. [address] [place] [phone] 07/16/2024 9:15 AM CDT Ancillary Procedure Department of Ophthalmology in [place], [place] [address] [place] [phone] Prakash Graham M.D. [address] [place] [phone] 07/16/2024 9:30 AM CDT Office Visit Department of Ophthalmology in [place], [place] [address] [place] [phone] Kenya Garza M.D. [address] [place] [phone] 07/16/2024 12:45 PM CDT Office Visit Department of Ophthalmology in [place], [place] [address] [place] [phone] Prakash Graham M.D. [address] [place] [phone] (work) documented as of this encounter Procedures [...] ciliary body detachment noted, possible ciliochoroidal effusion. [facility] Kenya Garza M.D. OPHTH ULTRASOUND OPHTHALMOLGY NON-IMAGING ORDERS documented in this encounter Visit Diagnoses Diagnosis Necrosis Retinal Acute Right documented in this encounter Care Teams Assembly Leader Relationship Specialty Start Date End Date Elsewhere, Pcp PCP - General Internal Medicine 05/29/19 documented as of this encounter
--- OUTSIDE RECORDS SUMMARY | 2024-06-24 10:06 | XMS_ITS | Encounter Summary ---
Author Organization [facility] Address [address] [place] [address] Care Team Providers Care Outside Plant Field Engineer Name Role Phone Elsewhere, Pcp Primary Care Provider Unavailabl e Reason for Visit * Outpatient (Routine) - Closed Specialty Diagnoses / Procedures Referred By Apolinar t Referred To Contact Ophthalmology Renaldo Hawk M.D. [address] [place] [phone] Prakash Graham M.D. [address] [place] [phone] Referral ID Status Reason Start Date Expiration Date Visits Re quested Visits Authorized [id number] Closed 05/17/2024 11/16/2025 1 1 Encounter Details Date Type Department Care Team (Latest Contact Info) Description 05/26/2024 9:45 AM CDT Office Visit Department of Ophthalmology in [place], [place] [address] [place] [phone] Prakash Graham M.D. [address] [place] [phone] Necrosis Retinal Acute Right (Primary Dx) Social History Tobacco Use Types Packs/Day Years Used Date Smoking Tobacco: Former Cigarettes 0.7 70.4 0 03/28/1975 - 01/09/2022 Smokeless Tobacco: Never Comments:On again off again Alcohol Use Standard Drinks/Week Comments Yes 5 (1 standard drink = 0.6 oz pur e alcohol) occasional [facility] Utilities Answer Date Recorded In the past 12 months has th e electric, gas, oil, or water [employer] threatened to shut off services in your home? No 11/05/2023 Social Connection and Isolation Panel [NHANES] A nswer Date Recorded In a typical week, how many times do you talk on the phone with family, friends, or neighbors? Once a week 06/27/2020 How often do you get together with friends or re latives? Never 06/27/2020 How often do you attend anabaptist or christian serv ices? Never 06/27/2020 Do [...] care, and heating? Somewhat hard 06/27/2020 [facility] of Occupat ional [facility] - Occupational Stress Questionnaire Answer Date [...] your living situation today? [facility] live 11/05/2023 Education Answer [...] CDT Ancillary Procedure Department of Ophthalmology in [place], [place] [address] [place] [phone] Prakash Graham M.D. [address] [place] [phone] 07/16/2024 9:15 AM CDT Ancillary Procedure Department of Ophthalmology in [address] [phone] Prakash Graham M.D. [address] [place] [phone] 07/16/2024 9:30 AM CDT Office Visit Department of Ophthalmology in [place], [place] [address] [place] [phone] Kenya Garza M.D. [address] [place] [phone] 07/16/2024 12:45 PM CDT Office Visit Department of Ophthalmology in [place], [place] [address] [place] [address] Prakash Graham M.D. [address] [place] [phone] documented as of this encounter Visit Diagnoses Diagnosis Necrosis Retinal Acute Right- Primary documented in this encounter Care Teams Outside Plant Field Engineer Relationship Specialty Start Date End Date Elsewhere, Pcp PCP - General Internal Medicine 05/29/19 documented as of this encounter
--- OUTSIDE RECORDS SUMMARY | 2024-06-24 10:06 | XMS_ITS | Encounter Summary ---
Author Organization [facility] Address [address] [place] [address] Care Team Providers Care Manager Functional Name Role Phone Elsewhere, Pcp Primary Care [...] How often do you attend adventist or yazidi serv ices? Never 06/27/2020 Do [...] medical care, and heating? Somewhat hard 06/27/2020 [facility] of Occupat ional [facility] - Occupational Stress Questionnaire Answer Date Recorded [...] Ancillary Procedure Department of Ophthalmology in [address] [phone] Prakash Graham M.D. [address] [place] [phone] 07/16/2024 9:15 AM CDT Ancillary Procedure Department of Ophthalmology in [address] [phone] Prakash Graham M.D. [address] [place] [phone] 07/16/2024 9:30 AM CDT Office Visit Department of Ophthalmology in [address] [phone] Kenya Garza M.D. [address] [place] [phone] 07/16/2024 12:45 PM CDT Office Visit Department of Ophthalmology in [place], [place] [address] [place] [phone] Prakash Graham M.D. [address] [place] [phone] documented as of this encounter Procedures Procedure Name Priority Date/Time Associated Diagnosis Comments OPHTHALMOLOGY IMAGE EXAM Routine 04/16/2024 12:00 AM CDT documented in this encounter Results * Eyes US-Eye Q-[id number] Image Exam (04/16/2024 12:00 AM CDT) Narrative [...] filedocumented in this encounter Care Teams Manager Functional Relationship Specialty Start Date End Date Elsewhere, Pcp PCP - General Internal Medicine 05/29/19 documented as of this encounter
--- OUTSIDE RECORDS SUMMARY | 2024-06-24 10:06 | XMS_ITS | Encounter Summary ---
Author Organization [facility] Address [address] [place] [address] Care Team Providers Care Value Stream Coach Name Role Phone Elsewhere, Pcp Primary Care Provider Unavailabl e Reason for Visit * Reason Onset Date Comments Surgery today 04/2704/27/2024 Encounter Details Date Type Department Care Team (Latest Contact Info) Description 04/27/2024 Clinical Communication Department of Ophthalmology in [place], [place] [address] [place] [phone] Prakash Graham M.D. [address] [place] [address] Surgery today 04/27 Social History Tobacco Use Types Packs/Day Years Used Date Smoking Tobacco: Former Cigarettes 0.7 70.4 0 03/28/1975 - 01/09/2022 Smokeless Tobacco: Never Comments:On again off again Alcohol Use Standard Drinks/Week Comments Yes 5 (1 standard drink = 0.6 oz pur e alcohol) occasional [facility] Utilities Answer Date Recorded [...] How often do you attend mu-ism or restoration serv ices? Never 06/27/2020 Do [...] 06/27/2020 [facility] of Occupat ional [facility] - Occupational Stress Questionnaire Answer Date [...] Department of Ophthalmology in [place], [place] [address] [place] [phone] Prakash Graham M.D. [address] [place] [phone] 07/16/2024 9:15 AM CDT Ancillary Procedure Department of Ophthalmology in [place], [place] [address] [place] [phone] Prakash Graham M.D. [address] [place] [phone] 07/16/2024 9:30 AM CDT Office Visit Department of Ophthalmology in [place], [place] [address] [place] [phone] Kenya Garza M.D. [address] [place] [phone] 07/16/2024 12:45 PM CDT Office Visit Department of Ophthalmology in [place], [place] [address] [place] [phone] Prakash Graham M.D. [address] [place] [phone] documented as of this encounter Visit Diagnoses Not on filedocumented in this encounter Care Teams Value Stream Coach Relationship Specialty Start Date End Date Elsewhere, Pcp PCP - General Internal Medicine 05/29/19 documented as of this encounter
--- OUTSIDE RECORDS SUMMARY | 2024-06-24 10:06 | XMS_ITS | Encounter Summary ---
Author Organization [facility] Address [address] [place] [address] Care Team Providers Care Record Searcher Name Role Phone Elsewhere, Pcp Primary Care [...] How often do you attend scientologist or hinduism serv ices? Never 06/27/2020 Do [...] 06/27/2020 [facility] of Occupat ional [facility] - Occupational Stress Questionnaire Answer [...] CDT Ancillary Procedure Department of Ophthalmology in [address] [phone] Prakash Graham M.D. [address] [place] [phone] 07/16/2024 9:15 AM CDT Ancillary Procedure Department of Ophthalmology in [address] [phone] Prakash Graham M.D. [address] [place] [phone] 07/16/2024 9:30 AM CDT Office Visit Department of Ophthalmology in [address] [phone] Kenya Garza M.D. [address] [place] [phone] 07/16/2024 12:45 PM CDT Office Visit Department of Ophthalmology in [place], [place] [address] [place] [phone] Prakash Graham M.D. [address] [place] [phone] documented as of this encounter Procedures Procedure [...] on filedocumented in this encounter Care Teams Record Searcher Relationship Specialty Start Date End Date Elsewhere, Pcp PCP - General Internal Medicine 05/29/19 documented as of this encounter
--- OUTSIDE RECORDS SUMMARY | 2024-06-24 10:07 | XMS_ITS | Encounter Summary ---
Author Organization [facility] Address [address] [place] [address] Care Team Providers Care Bioinformatics Software Engineer Name Role Phone Elsewhere, Pcp Primary Care Provider Unavailabl e Encounter Details Date Type Department Care Team (Late st Contact Info) Description 03/16/2024 Orders Only Department of Ophthalmology in [place], [place] [address] [place] [address] Shahnaz Amato, C.O.A. [address] [place] [address] Necrosis Retinal Acute Right (Primary Dx) Social [...] How often do you attend sikhism or rastafarian serv ices? Never 06/27/2020 Do [...] care, and heating? Somewhat hard 06/27/2020 [facility] of Occupat ional Health [...] CDT Ancillary Procedure Department of Ophthalmology in [address] [phone] Prakash Graham M.D. [address] [place] [phone] 07/16/2024 9:15 AM CDT Ancillary Procedure Department of Ophthalmology in [address] [phone] Prakash Graham M.D. [address] [place] [phone] 07/16/2024 9:30 AM CDT Office Visit Department of Ophthalmology in [address] [phone] Kenya Garza M.D. [address] [place] [phone] 07/16/2024 12:45 PM CDT Office Visit Department of Ophthalmology in [address] [phone] Prakash Graham M.D. [address] [place] [phone] documented as of this encounter Results * [...] ciliary body detachment noted, possible ciliochoroidal effusion. [facility] Kenya Garza M.D. [facility] Performing Organization Address [facility] Co de Phone Number OPHTHALMOLGY [...] ciliary body detachment noted, possible ciliochoroidal effusion. [facility] Kenya Garza M.D. [facility] Performing Organization Address City/[facility] Co de Phone Number OPHTHALMOLGY NON-IMAGING ORDERS documented in this encounter Visit Diagnoses Diagnosis Necrosis Retinal Acute Right- Primary Necrosis Retinal Acute Right Necrosis Retinal Acute Right documented in this encounter Care Teams Bioinformatics Software Engineer Relationship Specialty Start Date End Date Elsewhere, Pcp PCP - General Internal Medicine 05/29/19 documented as of this encounter
--- OUTSIDE RECORDS SUMMARY | 2024-06-24 10:07 | XMS_ITS | Clinical Summary ---
Author Organization [facility] Address [place], [place] [address] Care Team Providers Care Gel Coater Name Role Phone Easton Mccormick MD Unavailable Katerine Bashir MD Primary Care Provider + Allergies Active Allergy Reactions Criticality Noted Date Comments Wheeler Yefri Itching 09/11/2023 Medications Medication Sig Dispensed Refills Start Date End Date Status aspirin (ECOTRIN) 81 mg enteric coated tabletIndications:Non -ST elevation [place] (NSTEMI) (HC) Take 1 tablet by mouth once daily with a meal. 0 11/30/2015 Active atorvastatin (LIPITOR) 40 mg tabletIndications:Cor onary artery disease, angina presence unspecified, unspecified vessel or lesion type, unspecified whether [place] or transplanted heart Take 1 tablet by [...] ACP (advance care planning) 09/11/2023 Non-ST elevation [place] (NSTEMI) 11/19/2015 Melanoma in situ 06/15/2014 Overview: Right lower anterior leg and upper right eyelid. 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 Morbid obesity 04/10/2010 Diabetes mellitus, type 2 HTN (hypertension) CAD (coronary artery disease) Hyperlipidemia LDL goal <70 Encounters Date Type Department Care Team Description 05/21/2024 8:30 AM CDT Office Visit [facility] [address] [place] [address] Shashank Smith MD CV General Cardiology Est 04/25/2024 12:30 PM CDT Ancillary Procedure [facility] [address] [place] [address] from Last 3 Months Immunizations Name Administration [...] SCREEN FFDM (IA) Routine 10/04/2016 9:00 AM CLAIM PROFESSIONAL Visit for screening mammogram LIPID PANEL W REFLEX MEASURED LDL Routine 09/11/2016 9:26 AM CLAIM PROFESSIONAL Hyperlipidemia, unspecified XR DXA BONE DENSITY 2 [...] CDT ECHOCARDIOGRAM BREEZY TREJO ? Accession#: ?? [id number] : ?1955 68 years Study Date: ?? 04/25/2024 12:16:52 PM Gender: F ?BP: ? 114/84 mmHg Height: 168.00 cm ?BSA: ?2.00 m? ? ? Weight: 90.00 kg ? Tech: ? MRC ? Referring MD: BECKI ARANA Site: ? [facility] Reading Location: [facility] Patient Location: Inpatient. Procedure: 2D, Color Doppler [...] . This study was interpreted by an [facility] accredited facility. CC: HIM (med records) [facility], Med/Surg - IP [facility]. ??Final ?? Procedure Note Tiara Huntley MD - 04/25/2024 ECHOCARDIOGRAM BREEZY TREJO : 1955 68 years Study Date: 04/25/2024 12:16:52 PM Gender: F BP: 114/84 mmHg Height: 168.00 cm BSA: 2.00 m? ? ? Weight: 90.00 kg Tech: [facility] Referring MD: BECKI ARANA Site: [facility] Reading Location: [facility] Patient Location: Inpatient. Procedure: 2D, Color Doppler [...] . This study was interpreted by an [facility] accredited facility. CC: HIM (med records) [facility], Med/Surg - IP [facility]. Final Becki Arana MD ECHO ORD * XR MAMMO BILAT SCREEN FFDM (10/04/2016 9:00 AM CLAIM PROFESSIONAL) Anatomical Region Laterality Modality BREASTS, Breast Left, Breast Right Bilateral Mammography Narrative 10/04/2016 1:52 PM CLAIM PROFESSIONAL BILATERAL DIGITAL SCREENING MAMMOGRAM WITH COMPUTER-AIDED DETECTION [...] Ltd. [email or web address] ?? / Bailey Collins FIRE PREVENTION CHIEF MAMMO * (ABNORMAL) LIPID PANEL W REFLEX MEASURED LDL (09/11/2016 9:26 AM CLAIM PROFESSIONAL) CHOLESTEROL,TOTAL 159 100 - 199 mg/dL 09/11/2016 10:03 AM CLAIM PROFESSIONAL [facility] TRIGLYCERIDES 183(H) <150 mg/dL 09/11/2016 10:03 AM CLAIM PROFESSIONAL [facility] HDL CHOLESTEROL 36(L) >40 mg/dL 6 10:03 AM CLAIM PROFESSIONAL [facility] NON-HDL CHOLESTEROL 123 <145 mg/dl 09/11/2016 10:03 AM CLAIM PROFESSIONAL [facility] CHOL/HDL RATIO 4.42 <4.50 09/11/2016 10:03 AM CLAIM PROFESSIONAL [facility] LDL CHOLESTEROL 86 <=130 mg/dL 09/11/2016 10:03 AM CLAIM PROFESSIONAL [facility] PATIENT STATUS NOT GIVEN 09/11/2016 10:03 AM CLAIM PROFESSIONAL [facility] Blood BLOOD SPECIMEN / Unknown Venipuncture / Unknown 09/11/2016 9:26 AM CLAIM PROFESSIONAL 09/11/2016 9:26 AM CLAIM PROFESSIONAL Bailey Collins NP CHEMISTRY [facility] [address] [address], * XR DXA BONE DENSITY 2 SITES [...] Comments Code Status Discussion: Discussed Care Teams Gel Coater Relationship Specialty Start Date End Date Katerine Bashir MD [address] [place] [address] PCP - General Family Practice 12/27/20 Easton Mccormick MD [facility] [address] [place] [id number] Cardiovascular Disease 09/26/16
--- OUTSIDE RECORDS SUMMARY | 2024-06-24 10:07 | XMS_ITS | Encounter Summary ---
Author Organization [facility] Address [address] [place] [address] Care Team Providers Care Game Artist Name Role Phone Elsewhere, Pcp Primary Care Provider Unavailabl e Reason for Referral * Outpatient (Routine) - Closed Specialty Diagnoses / Procedures Referred By Contmuriel t Referred To Contact Ophthalmology Prakash Graham M.D. [address] [place] [address] [facility] Referral ID Status Reason Start Date Expiration Date Visits Re quested Visits Authorized [id number] Closed 03/16/2024 09/15/2025 1 1 Encounter Details Date Type Department Care Team (Late st Contact Info) Description 03/16/2024 Orders Only Department of Ophthalmology in [place], [place] [address] [place] [phone] Jean Claude Newsome, C.O.A. Panuveitis Right (Primary Dx); Necrosis Retinal Acute Right Social History Tobacco Use Types Packs/Day Years Used Date Smoking Tobacco: Light Smoker Cigarettes 0.5 44.3 Started: 02/26/1980 Smokeless Tobacco: Never Comments:On again off again Alcohol Use Standard Drinks/Week Comments Yes 0 (1 standard drink = 0.6 oz pur e alcohol) [facility] Utilities Answer Date Recorded In the [...] How often do you attend sabianist or latter-day serv ices? Never 06/27/2020 Do [...] heating? Somewhat hard 06/27/2020 [facility] [place] of Occupat ional Health - Occupational Stress [...] CDT Ancillary Procedure Department of Ophthalmology in [place], [place] [address] [place] [phone] Prakash Graham M.D. [address] [place] [phone] 07/16/2024 9:15 AM CDT Ancillary Procedure Department of Ophthalmology in [place], [place] [address] [place] [phone] Prakash Graham M.D. [address] [place] [phone] 07/16/2024 9:30 AM CDT Office Visit Department of Ophthalmology in [place], [place] [address] [place] [phone] Kenya Garza M.D. [address] [place] [address] 07/16/2024 12:45 PM CDT Office Visit Department of Ophthalmology in [place], [place] [address] [place] [address] Prakash Graham M.D. [address] [place] [address] Scheduled Referrals Name Type Priority Associated Diagnoses [...] Right documented in this encounter Care Teams Game Artist Relationship Specialty Start Date End Date Elsewhere, Pcp PCP - General Internal Medicine 05/29/19 documented as of this encounter
--- OUTSIDE RECORDS SUMMARY | 2024-06-24 10:07 | XMS_ITS | Encounter Summary ---
Author Organization [facility] Address [address] [place] [address] Care Team Providers Care Lab Coordinator Name Role Phone Elsewhere, Pcp Primary Care Provider Unavailabl e Reason for Referral * Outpatient (Routine) - Closed Specialty Diagnoses / Procedures Referred By Contac t Referred To Contact Cardiovascular Disease Diagnoses Coronary Artery Disease (Unspecified) Katerine Bashir M.D. [address] [place] [address] [facility] Referral ID Status Reason Start Date Expiration Date Visits Re quested Visits Authorized [id number] Closed 02/12/2019 02/12/2020 1 1 Encounter Details Date Type Department Care Team (Late st Contact Info) Description 02/12/2019 [facility] [address] [place] [address] Katerine Bashir M.D. [address] [place] [address] Coronary Artery Disease (Unspecified) (Primary [...] CDT Ancillary Procedure Department of Ophthalmology in [place], [place] [address] [place] [phone] Prakash Graham M.D. [address] [place] [phone] 07/16/2024 9:15 AM CDT Ancillary Procedure Department of Ophthalmology in [place], [place] [address] [place] [phone] Prakash Graham M.D. [address] [place] [phone] 07/16/2024 9:30 AM CDT Office Visit Department of Ophthalmology in [place], [place] [address] [place] [phone] Kenya Garza M.D. [address] [place] [phone] 07/16/2024 12:45 PM CDT Office Visit Department of Ophthalmology in [place], [place] [address] [place] [phone] Prakash Graham M.D. [address] [place] [phone] Scheduled Referrals Name Type Priority Associated Diagnoses [...] documented as of this encounter Care Teams Lab Coordinator Relationship Specialty Start Date End Date Elsewhere, Pcp PCP - General Internal Medicine 05/29/19 documented as of this encounter
--- OUTSIDE RECORDS SUMMARY | 2024-06-24 10:07 | XMS_ITS | Encounter Summary ---
Author Organization [facility] Address [address] [place] [address] Care Team Providers Care Learning Center Instructor Name Role Phone Elsewhere, Pcp Primary Care Provider Unavailabl e Reason for Visit * Reason Comments Med Refill Encounter Details Date Type Department Care Team (Late st Contact Info) Description 04/01/2024 Refill Department of Ophthalmology in [place], [place] [address] [place] [phone] Raffi Boyd M.D. [address] [place] [phone] Med Refill Social History Tobacco Use Types Packs/Day Years Used Date Smoking Tobacco: Light Smoker Cigarettes 0.5 44.3 Started: 02/26/1980 Smokeless Tobacco: Never Comments:On again off again Alcohol Use Standard Drinks/Week Comments Yes 0 (1 standard drink = 0.6 oz pur e alcohol) [facility] Utilities Answer Date Recorded In the past 12 months has [employer], gas, oil, or water [employer] threatened to shut off services in your home? No 11/05/2023 Social Connection and Isolation Panel [NHANES] A nswer Date Recorded In a typical week, how many times do you talk on the phone with family, friends, or neighbors? Once a week 06/27/2020 How often do you get together with friends or re latives? Never 06/27/2020 How often do you attend zoroastrian or yazidism serv ices? Never 06/27/2020 Do [...] medical care, and heating? Somewhat hard 06/27/2020 [facility] of Occupat ional Health - [...] CDT Ancillary Procedure Department of Ophthalmology in [place], [place] [address] [place] [phone] Prakash Graham M.D. [address] [place] [phone] 07/16/2024 9:15 AM CDT Ancillary Procedure Department of Ophthalmology in [place], [place] [address] [place] [phone] Prakash Graham M.D. [address] [place] [phone] 07/16/2024 9:30 AM CDT Office Visit Department of Ophthalmology in [address] [phone] Kenya Garza M.D. [address] [place] [phone] 07/16/2024 12:45 PM CDT Office Visit Department of Ophthalmology in [address] [phone] Prakash Graham M.D. [address] [place] [phone] documented as of this encounter Visit Diagnoses Not on filedocumented in this encounter Care Teams Learning Center Instructor Relationship Specialty Start Date End Date Elsewhere, Pcp PCP - General Internal Medicine 05/29/19 documented as of this encounter
--- OUTSIDE RECORDS SUMMARY | 2024-06-24 10:07 | XMS_ITS | Encounter Summary ---
Author Organization [facility] Address [address] [place] [address] Care Team Providers Care Calender Operator Name Role Phone Elsewhere, Pcp Primary Care Provider Unavailabl e Reason for Referral * Outpatient (Routine) - Closed Specialty Diagnoses / Procedures Referred By Contac t Referred To Contact Cardiovascular Disease Diagnoses Coronary Artery Disease (Unspecified) Katerine Bashir M.D. [address] [place] [address] [facility] Referral ID Status Reason Start Date Expiration Date Visits Re quested Visits Authorized [id number] Closed 02/10/2019 02/10/2020 3 3 Encounter Details Date Type Department Care Team (Late st Contact Info) Description 02/10/2019 [facility] [address] [place] [address] Katerine Bashir M.D. [address] [place] [address] Coronary Artery Disease (Unspecified) (Primary [...] CDT Ancillary Procedure Department of Ophthalmology in [place], [place] [address] [place] [phone] Prakash rGaham M.D. [address] [place] [phone] 07/16/2024 9:15 AM CDT Ancillary Procedure Department of Ophthalmology in [place], [place] [address] [place] [phone] Prakash Graham M.D. [address] [place] [phone] 07/16/2024 9:30 AM CDT Office Visit Department of Ophthalmology in [place], [place] [address] [place] [phone] Kenya Garza M.D. [address] [place] [phone] 07/16/2024 12:45 PM CDT Office Visit Department of Ophthalmology in [place], [place] [address] [place] [phone] Prakash Graham M.D. [address] [place] [phone] Scheduled Referrals Name Type Priority Associated Diagnoses [...] documented as of this encounter Care Teams Calender Operator Relationship Specialty Start Date End Date Elsewhere, Pcp PCP - General Internal Medicine 05/29/19 documented as of this encounter
--- OUTSIDE RECORDS SUMMARY | 2024-06-24 10:07 | XMS_ITS | Encounter Summary ---
Author Organization [facility] Address [address] [place] [id number] Care Team Providers Care Gasoline Finisher Name Role Phone Elsewhere, Pcp Primary Care Provider Unavailabl e Reason for Visit * Reason Comments Med Refill Encounter Details Date Type Department Care Team (Late st Contact Info) Description 04/10/2024 Refill Department of Ophthalmology in [place], [place] [address] [place] [phone] Kenya Garza M.D. [address] [place] [phone] Med Refill Social History Tobacco Use Types Packs/Day Years Used Date Smoking Tobacco: Light Smoker Cigarettes 0.5 44.3 Started: 02/26/1980 Smokeless Tobacco: Never Comments:On again off again Alcohol Use Standard Drinks/Week Comments Yes 0 (1 standard drink = 0.6 oz pur e alcohol) [facility] Utilities Answer Date Recorded In the past 12 months has [employer], gas, oil, or water [employer] threatened to shut off services in your home? No 11/05/2023 Social Connection and Isolation Panel [NHANES] A nswer Date Recorded In a typical week, how many times do you talk on the phone with family, friends, or neighbors? Once a week 06/27/2020 How often do you get together with friends or re latives? Never 06/27/2020 How often do you attend synagogue or alevism serv ices? Never 06/27/2020 Do [...] medical care, and heating? Somewhat hard 06/27/2020 [facility] of Occupat ional Health - Occupational Stress [...] CDT Ancillary Procedure Department of Ophthalmology in [place], [place] [address] [place] [phone] Prakash Graham M.D. [address] [place] [phone] 07/16/2024 9:15 AM CDT Ancillary Procedure Department of Ophthalmology in [place], [place] [address] [place] [phone] Prakash Graham M.D. [address] [place] [phone] 07/16/2024 9:30 AM CDT Office Visit Department of Ophthalmology in [place], [place] [address] [place] [phone] Kenya Garza M.D. [address] [place] [phone] 07/16/2024 12:45 PM CDT Office Visit Department of Ophthalmology in [place], [place] [address] [place] [phone] Prakash Graham M.D. [address] [place] [phone] documented as of this encounter Visit Diagnoses Not on filedocumented in this encounter Care Teams Gasoline Finisher Relationship Specialty Start Date End Date Elsewhere, Pcp PCP - General Internal Medicine 05/29/19 documented as of this encounter
== END 2024-06-24 10:02 | disposition home or self-care (01) ==
PROVIDERS: PCP Family Medicine; Visit Provider Otolaryngology
DX: I10 Essential (primary) hypertension (principal); E83.52 Hypercalcemia; R79.89 Other specified abnormal findings of blood chemistry; E78.5 Hyperlipidemia, unspecified; R63.4 Abnormal weight loss; E11.9 Type 2 diabetes mellitus without complications; R74.01 Elevation of levels of liver transaminase levels; E55.9 Vitamin D deficiency, unspecified
CPT/HCPCS: 82164; 83036; 83516; 86140

== ENCOUNTER 2024-07-20 09:26 | Outpatient (CLI) | payer MEDICARE, SELFPAY ==
--- OUTSIDE RECORDS SUMMARY | 2024-07-24 02:37 | XMS_ITS | Clinical Summary ---
Author Organization [facility] Address [address] [place] [address] Care Team Providers Care Wall Mirror Department Supervisor Name Role Phone Elsewhere, Pcp Primary Care Provider Unavailabl e Source Comments Patient records contain information from all sites at [facility]. For routine questions regarding patient records, call [phone] during business hours, M-F 8:00 AM - 5:00 PM Central Time. Record requests for emergency care only can be directed to [phone] at any time.[facility] Allergies Active Allergy Reactions Criticality Noted Date Comments Aller Xt-[place] Blisters,Itching,Ra sh High 06/21/2020 Methotrexate Other (see [...] once daily. 1 each 11 07/06/2020 Active lisinopriL (PRINIVIL,ZESTRIL ) 20 mg tablet [...] (FOUR) TIMES A DAY 5 mL 1 06/02/2024 Active valACYclovir (Valtrex) 1000 mg tablet Take 1 tablet (1,000 mg total) by mouth daily. 30 tablet 11 07/16/2024 Active predniSONE (Deltasone) 5 mg tablet Take 1.5 tablets (7.5 mg total) by mouth daily. Hold on file 45 tablet 2 07/16/2024 Active valACYclovir (VALTREX) 1000 mg tablet Take 1 tablet (1,000 mg total) by mouth 3 (three) times a day. 270 tablet 1 01/23/2024 4 Discontinued (Reorder) prednisoLONE acetate (Pred Forte) 1 % ophthalmic suspension Administer 1 drop into the right eye 4 (four) times a day for 7 days, THEN 1 drop 3 (three) times a day for 7 days, THEN 1 drop 2 (two) times a day for 7 days, THEN 1 drop daily for 7 days. 10 mL 06/02/2024 4 Active Problems Problem Noted Date Diagnosed Date [...] Encounters Date Type Department Care Team Description 07/16/2024 12:45 PM CDT Office Visit Department of Ophthalmology in [place], [place] [address] [place] [phone] Prakash Graham M.D. Proliferative Vitreoretinopathy Right (Primary Dx) 07/16/2024 9:30 AM CDT Office Visit Department of Ophthalmology in [place], [place] [address] [place] [phone] Kenya Garza M.D. Panuveitis Right (Primary Dx); Necrosis Retinal Acute Right 07/16/2024 9:15 AM CDT Ancillary Procedure Department of Ophthalmology in [place], [place] [address] [place] [phone] Prakash Graham M.D. Panuveitis Right; Necrosis Retinal Acute Right 07/16/2024 Ancillary Procedure Department of Ophthalmology 06/09/2024 10:00 AM CDT Office Visit Department of Ophthalmology in [place], [place] [address] [place] [phone] Prakash Graham M.D. Necrosis Retinal Acute Right (Primary Dx); Proliferative Vitreoretinopathy Right 06/02/2024 8:00 AM CDT Office Visit Department of Ophthalmology in [place], [place] [address] [place] [phone] Prakash Graham M.D. Necrosis Retinal Acute Right (Primary Dx); Proliferative Vitreoretinopathy Right 06/02/2024 Orders Only Pharmacy Prior Auth RO [phone] Ashly Inman Cassi 06/02/2024 Clinical Communication Department of Ophthalmology in [place], [place] [address] [place] [phone] Prakash Graham M.D. 06/02/2024 Refill Department of Ophthalmology in [place], [place] [address] [place] [phone] Prakash Graham M.D. Med Change Request 06/01/2024 3:08 PM CDT Anesthesia Event [facility] [place] [address] [place] [phone] Gaye Giraldo M.D. Easton Duran APRN, [facility] 06/01/2024 2:29 PM CDT - 06/01/2024 5:26 PM CDT Surgery [facility] OR [address] [place] [phone] Prakash Graham M.D. VITRECTOMY, PARS PLANA 25 GAUGE, MEMBRANE PEEL, SILICONE OIL 06/01/2024 1:25 PM CDT - 06/01/2024 7:27 PM CDT Hospital Encounter [facility] OR [facility] [place] [phone] Prakash Graham M.D. Discharge Disposition: Home or Self Care 05/26/2024 9:45 AM CDT Office Visit Department of Ophthalmology in [place], [place] [address] [place] [phone] Prakash Graham M.D. Necrosis Retinal Acute Right (Primary Dx) 05/20/2024 Clinical Communication Department of Ophthalmology in [place], [place] [address] [place] [phone] Renaldo Hawk M.D. 05/07/2024 2:00 PM CDT Office Visit Department of Ophthalmology in [place], [place] [address] [place] [phone] Renaldo Hawk M.D. Necrosis Retinal Acute Right (Primary Dx); Proliferative Vitreoretinopathy Right; Panuveitis Right; Primary Hypotony Right Eye; Posterior Reversible Encephalopathy Syndrome 05/04/2024 Clinical Communication Department of Ophthalmology in [place], [place] [address] [place] [phone] Kenya Garza M.D. Follow Up Visit from ER 04/27/2024 Clinical Communication Department of Ophthalmology in [place], [place] [address] [place] [phone] Prakash Graham M.D. Surgery today 04/27 from Last 3 Months Family History Medical [...] Recorded In the past 12 months has [employer], gas, oil, or water company threatened [...] How often do you attend jain or judaism serv ices? Never 06/27/2020 Do [...] medical care, and heating? Somewhat hard 06/27/2020 [facility] of Occupat ional Health [...] Care Team (Late st Contact Info) Description 08/27/2024 1:00 PM CDT Ancillary Procedure Department of Ophthalmology in [place], [place] [address] [place] [phone] Prakash Graham M.D. [address] [place] [phone] 08/27/2024 1:30 PM CDT Ancillary Procedure Department of Ophthalmology in [place], [place] [address] [place] [phone] Kenya Garza M.D. [address] [place] [phone] 08/27/2024 1:45 PM CDT Office Visit Department of Ophthalmology in [place], [place] [address] [place] [phone] Kenya Garza M.D. [address] [place] [phone] 08/27/2024 2:30 PM CDT Office Visit Department of Ophthalmology in [place], [place] [address] [place] [phone] Prakash Graham M.D. [address] [place] [phone] Health Maintenance Due Date Last Done Comments Bone Density Scan (Osteoporosis Screen) 1957 CT Colonography 1957 Colonoscopy 1957 FIT 1957 Hepatitis C Screening 1957 Lipid (Cholesterol) Screening 1957 Mammogram 1957 Lung Cancer Screening 03/31/2021 03/31/2020 Depression Screening (Annual PHQ-2) 10/28/2023 COVID-19 Vaccine ( season) 2024 07/18/2021, 02/14/2021, 01/24/2021 Office Visit for Blood Pressure Check / [...] this topic Medical Devices Implanted Type Area Joy Operator Device Identifier Shelf Expiration Date Model / Serial / Lot Slv Sclr Rnd 1x2.1x30 - [id number] Implanted:Qty : 1 on 06/01/2024 by Prakash Graham M.D. at [facility] Ocular (Eye) Implant Right: Eye [employer] 11/27/2030 S3 41 Band Implanted:Qty : 1 on 06/01/2024 by Prakash Graham M.D. at [facility] Ocular (Eye) Implant Right: Eye ZEISS S5.1010 / / [id number] Stent Other Stent Other Chest Description:Has stent but un sure of placement Procedures Procedure Name Priority Date/Time Associated Diagnosis Comments OPTICAL COHERENCE TOMOGRAPHY - MACULA/RETINA - OU - BOTH EYES Routine 07/16/2024 10:26 AM CDT Panuveitis Right Necrosis Retinal Acute Right OPHTHALMOLOGY IMAGE EXAM Routine 07/16/2024 12:00 AM CDT ADULT OXYGEN THERAPY Routine 06/01/2024 6:43 PM CDT ADULT OXYGEN THERAPY Routine 06/01/2024 6:43 PM CDT GLUCOSE POCT, B Routine 06/01/2024 6:36 PM CDT LDA ANE NON-SURGICAL AIRWAY Routine 06/01/2024 3:17 PM CDT SCLERAL BUCKLING 06/01/2024 2:58 PM CDT Panuveitis Right Necrosis Retinal Acute Right Proliferative Vitreoretinopathy Right Retinal Detachment With Single Break Right Eye Case Notes BRAKE LINING CURER @ 1331, TPU 10 VITRECTOMY - PARS PLANA 25 GAUGE 06/01/2024 2:58 PM CDT Panuveitis Right Necrosis Retinal Acute Right Proliferative Vitreoretinopathy Right Retinal Detachment With Single Break Right Eye Case Notes BRAKE LINING CURER @ 1331, TPU 10 COMPREHENSIVE METABOLIC PANEL, S/P Routine 11/05/2023 4:03 PM MELT HELPER Uveitis CT CHEST WITH IV CONTRAST RAD - Routine (most inpatients and all outpatients) 03/31/2020 8:50 AM CDT Nodule Pulmonary from Last 3 Months or Most Recently Relevant to Health Maintenance Results * Optical Coherence Tomography - Macula/Retina - OU - Both Eyes (07/16/2024 10:26 AM CDT) CMT L Microns 251 um OPH THALMOLOGY IMAGING EXAM Narrative OPHTHALMOLOGY IMAGING EXAM - 07/16/2024 10:47 AM CDT Right Eye It was a technically difficult scan. OCT device used was Spectralis . Scan locations included macula. Left Eye Reliability was good. OCT device used was Spectralis . Scan locations included macula. Central macular thickness 251 um. Notes JANET RIGHT - compared to 03/2024, there is a diffuse decrease in thickness as well as a decrease in choroidal folds. Image quality is fair. There is still diffuse loss of outer retinal structures. The previous small amount of peripapillary subretinal fluid is resolved, the intraretinal cysts are decreased. LEFT - overall normal macular thickness, intact foveal depression and retinal layers, no intra or subretinal fluid. Attached posterior hyaloid. Choroid is not thickened. Prakash Graham M.D. OPHTH TOMOGRAPHY Performing Organization Address [facility]/ZIP Co de Phone Number OPHTHALMOLOGY IMAGING EXAM * Eyes Spectralis OCT-Ophthalmology Image Exam (07/16/2024 12:00 AM CDT) Narrative IIMS - 07/16/2024 10:28 AM CDT This order has been created and auto-finalized to support the import of images acquired without order. The clinical documentation to support these images can be found on the encounter that produced images. Provider Not In System IMG NON RAD IMAGI NG PROCEDURES Performing Organization Address [facility]/ZIP Co de Phone Number IIMS NA * (ABNORMAL) Glucose, POCT (06/01/2024 6:36 PM CDT) Glucose, POCT, B 207(H) 70 - 140 mg/dL 06/01/2024 6:46 PM CDT PCLX Site Capillary 06/01/2024 6:46 PM CDT PCLX Blood 06/01/2024 6:36 PM CDT 06/01/2024 6:47 PM CDT Unknown Provider LAB POCT ORDERABLES- MANUAL POC [facility] [address] [place] [address], [facility] PCLX [facility] POC [address] [place] [address] * LDA ANE NON-SURGICAL AIRWAY (06/01/2024 3:17 PM CDT) Narrative Easton Duran APRN, CRNA - 06/01/2024 3:17 PM CDT Easton Duran APRN, CRNA ? 06/01/2024 ??3:37 PM Airway Date/Time: 06/01/2024 3:17 PM Performed by: Eastno Duran APRN, CRNA Authorized by: Bernardino Carbajal [...] Bernardino Carbajal M.D. ANESTHESIA ORDERA BLES * (ABNORMAL) Comprehensive Metabolic Panel (11/05/2023 4:03 PM MELT HELPER) Potassium, S 4.4 3.6 - 5.2 mmol/L 11/05/2023 5:04 PM MELT HELPER DTL Sodium, S 139 135 - 145 mmol/L 11/05/2023 5:04 PM MELT HELPER DTL Chloride, S 101 98 - 107 mmol/L 11/05/2023 5:04 PM MELT HELPER DTL Bicarbonate, S 27 22 - 29 mmol/L 11/05/2023 5:04 PM MELT HELPER DTL Anion Gap 11 7 - 15 11/05/2023 5:04 PM MELT HELPER DTL BUN (Blood Urea Nitrogen), S 17 6 - 21 mg/dL 11/05/2023 5:04 PM MELT HELPER DTL Creatinine 0.76 0.59 - 1.04 mg/dL 11/05/2023 5:04 PM MELT HELPER DTL Estimated GFR (eGFR) 86 >=60 mL/min/BS A 11/05/2023 5:04 PM MELT HELPER DTL Comment: Estimated GFR calculated using the 2020 CKD_EPI creatinine equation. Calcium, Total, S 10.1 8.8 - 10.2 mg/dL 11/05/2023 5:20 PM MELT HELPER DTL Glucose, S 104 70 - 140 mg/dL 11/05/2023 5:04 PM MELT HELPER DTL Protein, Total, S 6.1(L) 6.3 - 7.9 g/dL 11/05/2023 5:04 PM MELT HELPER DTL Albumin, S 4.3 3.5 - 5.0 g/dL 11/05/2023 5:04 PM MELT HELPER DTL Aspartate Aminotransferase (AST), S 16 8 - 43 U/L 11/05/2023 5:04 PM MELT HELPER DTL Alkaline Phosphatase, S 81 35 - 104 U/L 11/05/2023 5:04 PM MELT HELPER DTL Alanine Aminotransferase (ALT), S 16 7 - 45 U/L 11/05/2023 5:04 PM MELT HELPER DTL Bilirubin, Total, S 1.2 0.0 - 1.2 mg/dL 11/05/2023 5:04 PM MELT HELPER DTL Blood (Blood, Venous) 11/05/2023 4:03 PM MELT HELPER 11/05/2023 4:41 PM MELT HELPER Kenya Garza M.D. LAB BLOOD ADD-ON [address] [address] DTL [facility] [address] [place] [address] * CT Chest with IV Contrast (03/31/2020 [...] Recently Relevant to Health Maintenance Care Teams Wall Mirror Department Supervisor Relationship Specialty Start Date End Date Elsewhere, Pcp PCP - General Internal Medicine 05/29/19
--- OUTSIDE RECORDS SUMMARY | 2024-07-24 02:38 | XMS_ITS | Encounter Summary ---
Author Organization [facility] Address [address] [place] [address] Care Team Providers Care Food Technologist Name Role Phone Elsewhere, Pcp Primary Care Provider Unavailabl e Encounter Details Date Type Department Care Team (Latest Contact Info) Description 07/16/2024 9:15 AM CDT Ancillary Procedure Department of Ophthalmology in [place], [place] [address] [place] [phone] Prakash Graham M.D. [address] [place] [phone] Panuveitis Right; Necrosis Retinal Acute Right Social History Tobacco Use Types Packs/Day Years Used Date Smoking Tobacco: Former Cigarettes 0.7 70.4 0 03/28/1975 - 01/09/2022 Smokeless Tobacco: Never Comments:On again off again Alcohol Use Standard Drinks/Week Comments Yes 5 (1 standard drink = 0.6 oz pur e alcohol) occasional [facility] Utilities Answer Date Recorded In the past 12 months has [employer], gas, oil, or water [employer] threatened to shut off services in your home? No 11/05/2023 Social Connection and Isolation Panel [NHANES] A nswer Date Recorded In a typical week, how many times do you talk on the phone with family, friends, or neighbors? Once a week 06/27/2020 How often do you get together with friends or re latives? Never 06/27/2020 How often do you attend jewish or yazidi serv ices? Never 06/27/2020 Do [...] CDT Ancillary Procedure Department of Ophthalmology in [place], [place] [address] [place] [phone] Prakash Graham M.D. [address] [place] [phone] 08/27/2024 1:30 PM CDT Ancillary Procedure Department of Ophthalmology in [place], [place] [address] [place] [phone] Kenya Garza M.D. [address] [place] [phone] 08/27/2024 1:45 PM CDT Office Visit Department of Ophthalmology in [place], [place] [address] [place] [phone] Kenya Garza M.D. [address] [place] [phone] 08/27/2024 2:30 PM CDT Office Visit Department of Ophthalmology in [place], [place] [address] [place] [phone] Prakash Graham M.D. [address] [place] [phone] documented as of this encounter Procedures Procedure [...] not thickened. Prakash Graham M.D. OPHTH TOMOGRAPHY OPHTHALMOLOGY IMAGING EXAM documented in this encounter Visit Diagnoses Diagnosis Panuveitis Right Necrosis Retinal Acute Right documented in this encounter Care Teams Food Technologist Relationship Specialty Start Date End Date Elsewhere, Pcp PCP - General Internal Medicine 05/29/19 documented as of this encounter
--- OUTSIDE RECORDS SUMMARY | 2024-07-24 02:38 | XMS_ITS | Encounter Summary ---
Author Organization [facility] Address [address] [place] [address] Care Team Providers Care Automobile Inspector Name Role Phone Elsewhere, Pcp Primary Care Provider Unavailabl e Encounter Details Date Type Department Care Team (Late st Contact Info) Description 06/02/2024 Orders Only Pharmacy Prior Auth RO [phone] Ashly Inman Social History Tobacco Use Types Packs/Day Years Used Date Smoking Tobacco: Former Cigarettes 0.7 70.4 0 03/28/1975 - 01/09/2022 Smokeless Tobacco: Never Comments:On again off again Alcohol Use Standard Drinks/Week Comments Yes 5 (1 standard drink = 0.6 oz pur e alcohol) occasional [facility] Utilities Answer [...] often do you attend oriental orthodox or taoist serv ices? Never 06/27/2020 Do [...] heating? Somewhat hard 06/27/2020 [facility] of Occupat ional Health - Occupational Stress [...] Ancillary Procedure Department of Ophthalmology in [place], [place] [address] [place] [phone] Prakash Graham M.D. [address] [place] [phone] 08/27/2024 1:30 PM CDT Ancillary Procedure Department of Ophthalmology in [place], [place] [address] [place] [phone] Kenya Garza M.D. [address] [place] [phone] 08/27/2024 1:45 PM CDT Office Visit Department of Ophthalmology in [place], [place] [address] [place] [phone] Kenya Garza M.D. [address] [place] [phone] 08/27/2024 2:30 PM CDT Office Visit Department of Ophthalmology in [place], [place] [address] [place] [phone] Prakash Graham M.D. [address] [place] [phone] documented as of this encounter Visit Diagnoses Not on filedocumented in this encounter Care Teams Automobile Inspector Relationship Specialty Start Date End Date Elsewhere, Pcp PCP - General Internal Medicine 05/29/19 documented as of this encounter
--- OUTSIDE RECORDS SUMMARY | 2024-07-24 02:38 | XMS_ITS | Encounter Summary ---
Author Organization [facility] Address [address] [place] [address] Care Team Providers Care Java Jsf Developer Name Role Phone Elsewhere, Pcp Primary Care Provider Unavailabl e Reason for Visit * Auth/Cert (Routine) Specialty Diagnoses / Procedures Referred By Apolinar t Referred To Contact Diagnoses Panuveitis Right Necrosis Retinal Acute Right Panuveitis Right [H44.111] Necrosis Retinal Acute Right [H30.131] Procedures WA VITRECT W RMVL PRERETINAL MEMB WA RPR DETACH RETINA CMPLX VITRECTOMY - PARS PLANA 25 GAUGE / MEMBRANE PEEL / SILICONE OIL AND ALL ASSOCIATED PROCEDURES RIGHT EYE SCLERAL BUCKLING Prakash Graham M.D. [address] [place] [address] Referral ID Status Reason Start Date Expiration Date Visits Re quested Visits Authorized [id number] 1 1 Encounter Details Date Type Department Care Team (Latest Contact Info) Description 06/01/2024 1:25 PM CDT - 06/01/2024 7:27 PM CDT Hospital Encounter [facility] [address] [place] [phone] Prakash Graham M.D. [address] [place] [phone] Discharge Disposition: Home or Self Care Social History Tobacco Use Types Packs/Day Years Used Date Smoking Tobacco: Former Cigarettes 0.7 70.4 0 03/28/1975 - 01/09/2022 Smokeless Tobacco: Never Comments:On again off again Alcohol Use Standard Drinks/Week Comments Yes 5 (1 standard drink = 0.6 oz pur e alcohol) occasional [facility] Utilities Answer Date Recorded In the [...] How often do you attend restorationist or nondenominational serv ices? Never 06/27/2020 Do [...] medical care, and heating? Somewhat hard 06/27/2020 [facility] [place] of Occupat ional Health - Occupational Stress [...] type of surgery. In general, we recommend ialz-nkh-qundyah pain medications such as Extra Strength Tylenol. [...] evaluation. Any questions or concerns please call [phone] (Business hours) [phone] (Evenings and weekends, ask for the Hand Turner president educational institution) Instructions After Sedation or Anesthesia After you [...] - hasn't used in over ten years umeclidinium-vilante roL (ANORO ELLIPTA) 62.5-25 mcg/actuation inhalerIndications:C hronic Obstructive Pulmonary Disease (HCC) Inhale 1 puff once daily. 1 each 07/06/2020 prednisoLONE acetate (Pred Forte) 1 % ophthalmic suspension Administer 1 drop into the right eye 4 (four) times a day for 7 days, THEN 1 drop 3 (three) times a day for 7 days, THEN 1 drop 2 (two) times a day for 7 days, THEN 1 drop daily for 7 days. 10 mL 06/02/2024 06/30/2024 difluprednate (DurezoL) 0.05 % ophthalmic emulsion Administer [...] with food 60 tablet 1 01/23/2024 06/02/2024 valACYclovir (VALTREX) 1000 mg tablet Take 1 tablet (1,000 mg total) by mouth 3 (three) times a day. 270 tablet 1 01/23/2024 07/16/2024 documented as of this encounter OR Notes * Op Note - Prakash Graham M.D. 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 Using a combination of a max accounts payables clerk forceps, lighted pick, and a vitreous cutter [...] combination of the vitreous cutter and max accounts payables clerk forceps the contracted anterior hyaloid and vitreous [...] Right Findings As expected. Complications None Tera Deshawn Graham documented in this encounter Plan of Treatment Upcoming Encounters Date Type Department Care Team (Late st Contact Info) Description 08/27/2024 1:00 PM CDT Ancillary Procedure Department of Ophthalmology in [address] [phone] Prakash Graham M.D. [address] [place] [phone] 08/27/2024 1:30 PM CDT Ancillary Procedure Department of Ophthalmology in [address] [phone] Kenya Garza M.D. [address] [place] [phone] 08/27/2024 1:45 PM CDT Office Visit Department of Ophthalmology in [address] [phone] Kenya Garza M.D. [address] [place] [phone] 08/27/2024 2:30 PM CDT Office Visit Department of Ophthalmology in [address] [phone] Prakash Graham M.D. 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 Right Eye Case Notes WOMENS HEALTH NURSE PRACTITIONER @ 1331, TPU 10 VITRECTOMY - PARS PLANA 25 GAUGE 06/01/2024 2:58 PM CDT Panuveitis Right Necrosis Retinal Acute Right 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..] 1904 (Given - Provid er: Nesha Lucio R.N.)191 [...] NPO) documented in this encounter Care Teams Java Jsf Developer Relationship Specialty Start Date End Date Elsewhere, Pcp PCP - General Internal Medicine 05/29/19 documented as of this encounter
--- OUTSIDE RECORDS SUMMARY | 2024-07-24 02:38 | XMS_ITS ---
Author Organization [facility] Address [address] [place] [address] Care Team Providers Care Journeyman Machinist Name Role Phone Unavailable Unavailable Unavailable Surgery Details Not on file Complications Check Surgery Details section. Procedure Estimated Blood Loss Check Surgery Details section. Procedure Findings Check Surgery Details section. Procedure Specimens Taken Check Surgery Details section.
--- OUTSIDE RECORDS SUMMARY | 2024-07-24 02:38 | XMS_ITS | Encounter Summary ---
Author Organization [facility] Address [address] [place] [address] Care Team Providers Care Instrumentation Manager Name Role Phone Elsewhere, Pcp Primary Care Provider Unavailabl e Encounter Details Date Type Department Care Team (Late st Contact Info) Description 07/16/2024 Ancillary Procedure Department of Ophthalmology Social History [...] How often do you attend spiritism or restorationist serv ices? Never 06/27/2020 Do [...] hard 06/27/2020 [facility] of Occupat ional [facility] - Occupational Stress Questionnaire Answer Date Recorded [...] CDT Ancillary Procedure Department of Ophthalmology in [place], [place] [address] [place] [phone] Prakash Graham M.D. [address] [place] [phone] 08/27/2024 1:30 PM CDT Ancillary Procedure Department of Ophthalmology in [address] [phone] Kenya Garza M.D. [address] [place] [phone] 08/27/2024 1:45 PM CDT Office Visit Department of Ophthalmology in [address] [phone] Kenya Garza M.D. [address] [place] [phone] 08/27/2024 2:30 PM CDT Office Visit Department of Ophthalmology in [place], [place] [address] [place] [phone] Prakash Graham M.D. [address] [place] [phone] documented as of this encounter Procedures Procedure Name Priority Date/Time Associated Diagnosis Comments OPHTHALMOLOGY IMAGE EXAM Routine 07/16/2024 12:00 AM CDT documented in this encounter Results * Eyes Spectralis OCT-Ophthalmology Image Exam (07/16/2024 [...] on filedocumented in this encounter Care Teams Instrumentation Manager Relationship Specialty Start Date End Date Elsewhere, Pcp PCP - General Internal Medicine 05/29/19 documented as of this encounter
--- OUTSIDE RECORDS SUMMARY | 2024-07-24 02:38 | XMS_ITS | Encounter Summary ---
Author Organization [facility] Address [address] [place] [address] Care Team Providers Care Chiller Operator Name Role Phone Elsewhere, Pcp Primary Care Provider Unavailabl e Reason for Visit * Auth/Cert (Routine) Specialty Diagnoses / Procedures Referred By Apolinar t Referred To Contact Diagnoses Panuveitis Right Necrosis Retinal Acute Right Panuveitis Right [H44.111] Necrosis Retinal Acute Right [H30.131] Procedures [place] VITRECT W RMVL PRERETINAL MEMB TN RPR DETACH RETINA CMPLX VITRECTOMY - PARS PLANA 25 GAUGE / MEMBRANE PEEL / SILICONE OIL AND ALL ASSOCIATED PROCEDURES RIGHT EYE SCLERAL BUCKLING Prakash Graham M.D. 200 [place] [address] Referral ID Status Reason Start Date Expiration Date Visits Re quested Visits Authorized [id number] 1 1 Encounter Details Date Type Department Care Team (Late st Contact Info) Description 06/01/2024 2:29 PM CDT - 06/01/2024 5:26 PM CDT Surgery [facility] OR [address] [place] [phone] Prakash Graham M.D. [address] [place] [phone] VITRECTOMY, PARS PLANA 25 GAUGE, MEMBRANE PEEL, SILICONE OIL Social History Tobacco Use Types Packs/Day Years Used Date Smoking Tobacco: Former Cigarettes 0.7 70.4 0 03/28/1975 - 01/09/2022 Smokeless Tobacco: Never Comments:On again off again Alcohol Use Standard Drinks/Week Comments Yes 5 (1 standard drink = 0.6 oz pur e alcohol) occasional [facility] [...] How often do you attend synagogue or christianity serv ices? Never 06/27/2020 Do [...] Somewhat hard 06/27/2020 [facility] [place] of Occupat ional Health - Occupational Stress [...] your living situation today? I have a [facility] place to live 11/05/2023 Education Answer [...] type of surgery. In general, we recommend ommx-jnq-frnfplx pain medications such as Extra Strength Tylenol. [...] evaluation. Any questions or concerns please call [phone] (Business hours) [phone] (Evenings and weekends, ask for the Boiler House Inspector environmental monitoring specialist) Instructions After Sedation or Anesthesia After you [...] Retinal Detachment With Single Break Right Eye Pot Filler A first aid trainer actively participated and was necessary for one [...] entirety. Using a combination of a max toy department manager forceps, lighted pick, and a vitreous cutter [...] combination of the vitreous cutter and max toy department manager forceps the contracted anterior hyaloid and vitreous [...] Ancillary Procedure Department of Ophthalmology in [address] [phone] Prakash Graham M.D. [address] [place] [phone] 08/27/2024 1:30 PM CDT Ancillary Procedure Department of Ophthalmology in [place], [place] [address] [place] [phone] Kenya Garza M.D. [address] [place] [phone] 08/27/2024 1:45 PM CDT Office Visit Department of Ophthalmology in [address] [phone] Kenya Garza M.D. [address] [place] [phone] 08/27/2024 2:30 PM CDT Office Visit Department of Ophthalmology in [place], [place] [address] [place] [phone] Prakash Graham M.D. 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 Break Right Eye Case Notes REGISTERED PUBLIC SURVEYOR @ 1331, TPU 10 VITRECTOMY - PARS PLANA 25 GAUGE 06/01/2024 2:58 PM CDT Panuveitis Right Necrosis Retinal Acute Right Proliferative Vitreoretinopathy Right Retinal Detachment With Single Break Right Eye Case Notes REGISTERED PUBLIC SURVEYOR @ 1331, TPU 10 documented in this encounter Results * (ABNORMAL) Glucose, POCT (06/01/2024 6:36 PM CDT) Glucose, POCT, B 207(H) 70 - 140 mg/dL 06/01/2024 6:46 PM CDT PCLX Site Capillary 06/01/2024 6:46 PM CDT PCLX Blood 06/01/2024 6:36 PM CDT 06/01/2024 6:47 PM CDT Unknown Provider LAB POCT ORDERABLES- MANUAL POC [facility] [address] [place] [address], [facility] PCLX [facility] POC [address] [place] [address] documented in this encounter Visit Diagnoses Diagnosis [...] received in previous 6 hours, Starting on 06/01/24 at 1843, For 1 dose, PACU (only), [...] (New Bag - Prov ider: Nesha Lucio RMarylou) balanced salt solution ophthalmic irrigation (BSS) (CANCELED) [...] remainder. Bilateral administration requires two separate vials. 181 (Given - Provid er: Pranay Hubbard [...] 200 mcg 1905 (Given - Provid er: Nehsa Lucio R.N.)1913 (Given - Provider: Nesha Lucio [...] NPO) documented in this encounter Care Teams Chiller Operator Relationship Specialty Start Date End Date Elsewhere, Pcp PCP - General Internal Medicine 05/29/19 documented as of this encounter
--- OUTSIDE RECORDS SUMMARY | 2024-07-24 02:38 | XMS_ITS | Encounter Summary ---
Author Organization [facility] Address [address] [place] [address] Care Team Providers Care Shale Planer Operator Helper Name Role Phone Elsewhere, Pcp Primary Care Provider Unavailabl e Reason for Visit * Outpatient (Routine) - Closed Specialty Diagnoses / Procedures Referred By Apolinar t Referred To Contact Ophthalmology Renaldo Hawk M.D. [address] [place] [phone] Prakash Graham M.D. [address] [place] [phone] Referral ID Status Reason Start Date Expiration Date Visits Re quested Visits Authorized [id number] Closed 05/17/2024 11/16/2025 1 1 Encounter Details Date Type Department Care Team (Latest Contact Info) Description 05/26/2024 9:45 AM CDT Office Visit Department of Ophthalmology in [place], [place] [address] [place] [phone] Prakash Graham M.D. [address] [place] [phone] Necrosis Retinal Acute Right (Primary Dx) [...] th e electric, gas, oil, or water [employer] threatened to shut off services in your home? No 11/05/2023 Social Connection and Isolation Panel [NHANES] A nswer Date Recorded In a typical week, how many times do you talk on the phone with family, friends, or neighbors? Once a week 06/27/2020 How often do you get together with friends or re latives? Never 06/27/2020 How often do you attend temple or yarsani serv ices? Never 06/27/2020 Do [...] 06/27/2020 [facility] of Occupat ional [facility] - Occupational Stress Questionnaire Answer Date [...] CDT Ancillary Procedure Department of Ophthalmology in [address] [phone] Prakash Graham M.D. [address] [place] [phone] 08/27/2024 1:30 PM CDT Ancillary Procedure Department of Ophthalmology in [address] [phone] Kenya Garza M.D. [address] [place] [phone] 08/27/2024 1:45 PM CDT Office Visit Department of Ophthalmology in [address] [phone] Kenya Garza M.D. [address] [place] [phone] 08/27/2024 2:30 PM CDT Office Visit Department of Ophthalmology in [place], [place] [address] [place] [address] Prakash Graham M.D. [address] [place] [address] documented as of this encounter Visit Diagnoses Diagnosis Necrosis Retinal Acute Right- Primary documented in this encounter Care Teams Shale Planer Operator Helper Relationship Specialty Start Date End Date Elsewhere, Pcp PCP - General Internal Medicine 05/29/19 documented as of this encounter
--- OUTSIDE RECORDS SUMMARY | 2024-07-24 02:38 | XMS_ITS | Encounter Summary ---
Author Organization [facility] Address [address] [place] [address] Care Team Providers Care Chief Reservoir Engineering Name Role Phone Elsewhere, Pcp Primary Care Provider Unavailabl e Reason for Referral * Outpatient (Routine) - Authorized Specialty Diagnoses / Procedures Referred By Apolinar lopez Referred To Contact Ophthalmology Prakash Graham M.D. [address] [place] [phone] [facility] Referral ID Status Reason Start Date Expiration Date V isits Requested Visits Authorized [id number] Authorized 07/16/2024 01/15/2026 1 1 Scheduling Instructions 6 WK , /JUL OU Reason for Visit * Reason Comments One month post op * Outpatient (Routine) - Closed Specialty Diagnoses / Procedures Referred By Apolinar lopez Referred To Contact Ophthalmology Prakash Graham M.D. [address] [place] [phone] [facility] Referral ID Status Reason Start Date Expiration Date Visits Re quested Visits Authorized [id number] Closed 03/13/2024 09/12/2025 1 1 Encounter Details Date Type Department Care Team (Latest Contact Info) Description 07/16/2024 12:45 PM CDT Office Visit Department of Ophthalmology in [place], [place] [address] [place] [phone] Prakash Graham M.D. [address] [place] [phone] Proliferative Vitreoretinopathy Right (Primary Dx) Social History Tobacco Use Types Packs/Day Years Used Date Smoking Tobacco: Former Cigarettes 0.7 70.4 0 03/28/1975 - 01/09/2022 Smokeless Tobacco: Never Comments:On again off again Alcohol Use Standard Drinks/Week Comments Yes 5 (1 standard drink = 0.6 oz pur e alcohol) occasional C Utilities Answer Date Recorded In the past 12 months has [facility] e electric, gas, oil, or water company [...] How often do you attend alevism or synagogue serv ices? Never 06/27/2020 Do [...] medical care, and heating? Somewhat hard 06/27/2020 [facility] of Occupat ional Health - Occupational Stress [...] Progress Notes * Prakash Graham M.D. 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 Durezol QID then taper 3-2-1 (stay on once a day) PO pred 7.5 mg Call if decreased vision, increased photophobia, pain, discharge or increased redness occurs. Follow-up in 6-8 weeks, sooner prn documented in this encounter Plan of Treatment Upcoming Encounters Date Type Department Care Team (Late st Contact Info) Description 08/27/2024 1:00 PM CDT Ancillary Procedure Department of Ophthalmology in [place], [place] [address] [place] [phone] Prakash Graham M.D. [address] [place] [phone] 08/27/2024 1:30 PM CDT Ancillary Procedure Department of Ophthalmology in [place], [place] [address] [place] [phone] Kenya Garza M.D. [address] [place] [phone] 08/27/2024 1:45 PM CDT Office Visit Department of Ophthalmology in [place], [place] [address] [place] [phone] Kenya Garza M.D. [address] [place] [phone] 08/27/2024 2:30 PM CDT Office Visit Department of Ophthalmology in [place], [place] [address] [place] [phone] Prakash Graham M.D. [address] [place] [phone] Scheduled Referrals Name Type Priority Associated Diagnoses Order Schedule Ophthalmology office visit (clinic) Outpatient Referral Routine 1 Occurrences starting 07/16/2024 until 10/15/2025 documented as of this encounter Visit Diagnoses Diagnosis Proliferative Vitreoretinopathy Right- Primary documented in this encounter Care Teams Chief Reservoir Engineering Relationship Specialty Start Date End Date Elsewhere, Pcp PCP - General Internal Medicine 05/29/19 documented as of this encounter
--- OUTSIDE RECORDS SUMMARY | 2024-07-24 02:38 | XMS_ITS | Encounter Summary ---
Author Organization [facility] Address [address] [place] [address] Care Team Providers Care Inspector [employer] Name Role Phone Elsewhere, Pcp Primary Care Provider Unavailabl e Reason for Referral * Outpatient (Routine) - Authorized Specialty Diagnoses / Procedures Referred By Apolinar lopez Referred To Contact Ophthalmology Diagnoses Panuveitis Right Necrosis Retinal Acute Right Kenya Garza M.D. [address] [place] [phone] [facility] Referral ID Status Reason Start Date Expiration Date V isits Requested Visits Authorized [id number] Authorized 07/16/2024 01/15/2026 1 1 Scheduling Instructions Same day as Dr. Graham Reason for Visit * Outpatient (Routine) - Closed Specialty Diagnoses / Procedures Referred By Apolinar lopez Referred To Contact Ophthalmology Kenya Garza M.D. [address] [place] [phone] [facility] Referral ID Status Reason Start Date Expiration Date Visits Re quested Visits Authorized [id number] Closed 04/16/2024 10/16/2025 1 1 Encounter Details Date Type Department Care Team (Latest Contact Info) Description 07/16/2024 9:30 AM CDT Office Visit Department of Ophthalmology in [place], [place] [address] [place] [phone] Kenya Garza M.D. [address] [place] [phone] Panuveitis Right (Primary Dx); Necrosis Retinal Acute Right Social History Tobacco Use Types Packs/Day Years Used Date Smoking Tobacco: Former Cigarettes 0.7 70.4 0 03/28/1975 - 01/09/2022 Smokeless Tobacco: Never Comments:On again off again Alcohol Use Standard Drinks/Week Comments Yes 5 (1 standard drink = 0.6 oz pur e alcohol) occasional [facility] Utilities Answer Date Recorded In the past [...] How often do you attend presybeterian or jehovah's witness serv ices? Never 06/27/2020 [...] heating? Somewhat hard 06/27/2020 [facility] [place] of Occupat ional Health - Occupational Stress [...] encounter Patient Instructions * Patient Instructions* Kenya Graza M.D. - 07/16/2024 9:30 AM CDT Durezol eye drops - decrease as per Dr. Graham. Oral prednisone: decrease to 7.5 mg daily (one 5 mg tablet plus 1/2 5 mg tablet) Oral valacyclovir: decrease to one tablet (1000 mg) daily documented in this encounter Progress Notes * Kenya Garza M.D. 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 Graham) --status post PPV/SB/ILM/MP/RET/PFO/SO OD 06/01/24 (Dr. Graham) # Chronic lymphocytic leukemia/SLL with trisomy 12 (2017) Untreated # Cataracts, both eyes # Chronic obstructive pulmonary disease # History of PRES (Posterior reversible encephalopathy syndrome, 01/09/2024) # History of coronary artery disease status post CABG x 4 (2000) and PCI to RCA (2015) # History of type 2 diabetes mellitus HPI - 11/05/23 Mrs. Alexandra Dixon is a 68 year old woman who is referred by Dr. Daisy Ivy for evaluation ofuveitis. She woke up with a red, painful, tearing right eye on 10/16/23. Was seen in urgent care on 10/19/23and diagnosed with pink eye, treated with tobramycin drops without improvement. She saw acid cutter Dr. Daisy Ivy on 10/23/23. 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 In August 2023, she was sent from an infusion center to [facility] emergency department where shewas found to have oxygen saturations of 78%. CT imaging showed worsening bilateral ground glass opacities. A CT scan was negative for pulmonary embolism. She was transferred to [facility] in [facility] for additional pulmonology care. On 09/12/23 [...] 1 wk. Recent labs: RF, ANKITA, HLA-B27 11/05/23 She had shingles about three years ago: it was a bullseye rash in the middle of her back by her report. She did have Shingrix vaccination after that. She was in the hospital three times in the past three months: [facility] (09/02/23 for hypercalcemiaand acute kidney injury - had CT chest/abdomen/pelvis to assess for malignancy), [facility] again. Each time she saw her [...] monitor. (Her oncologist is at [facility].) MEDICATIONS Prednisolone every hour while awake [...] No T sign noted. [facility] Macula OCT of the right eye shows [...] membranes. Possible posterior thickening. No T sign. [facility] HSV 2 PCR from anterior chamber tap [...] detachment vs subhyaloid opacities. [facility] PLAN: It has been 21 days since [...] body detachment noted, possible ciliochoroidal effusion. ZK It has been 18 weeks since intravitreal [...] repeat US and UBM plus macula OCT. 04/16/[address] Graham on 03/13/24, he decided to try cryoretinopexy for the ciliary body detachment in the right eye, although he thought that [...] 10 mg, ) VA without correction HM at 2' and [...] nasal. The left eye has no inflammation. 04/16/2024 B-Scan Right Eye: dense vitreous opacities, probable posterior vitreous detachment, vitreous membranes possibly extending to disc, cannot rule out choroidal detachment, thickened fundus appearance. Dilated UBM Right Eye: minimal opacities in anterior chamber, ciliary body detachment noted, possible ciliochoroidal effusion. [facility] Continue the current eye drops and PO medications as above. Can probably decrease PO valacyclovir at the 1 month post-op I will see her on the same day as one of the post-op visits. (Probably the one after early May.) TODAY - 07/16/24 Surgery was delayed by a month because she had otitis media and required antibiotic treatment, but she is now status post PPV/SB/ILM/MP/RET/PFO/SO in the right eye on 06/01/[address] Graham. At her most recent visit with him on 06/11/24, he tapered Durezol and PO prednisone. She had follow up with her local coding quality analyst in April. Hydrochlorothiazide was restarted due to elevated blood pressure. She noticed today that when she covers her left eye, she can see shapes. However most of the time it is the same as it was. She goes in for an IVIG infusion tomorrow - receiving every 5 weeks. MEDICATIONS Durezol TID right eye (started 11/13/23) Valacyclovir 1000 mg TID (started 11/06/23) Prednisone 10 mg daily - a few weeks at this dose (had been on 10 mg daily since 01/24/24; increasedfor retinal surgery in early May 2024) Privigen IVIG 1 gm/kg every 5 weeks per hematology oncology (due to immunocompromise from chronic lymphocytic leukemia) Status post intravitreal foscarnet & ganciclovir on 11/05/23 HSV 2 PCR from anterior chamber tap (11/05/23) positive EXAM VA without correction HM and 20/50 Applanation pressures 5 & 12 The right eye anterior chamber cell is rare There is silicone oil fill in the right. Hemorrhages along buckle, but otherwise looks pretty good to me The left eye has no inflammation. IMAGING Macula OCT of the right eye shows significantly decreased thickness and decreased choroidal folds. The previous peripapillary subretinal fluid is resolved. PLAN I am cautiously encouraged by the changes on OCT (decreased choroidal folds). There is some expected cataract progression in the right eye, and the outer retinal structures lookabnormal in the macula (may limit final visual acuity improvement), but hopefully the eye will continue to heal from the recent surgery. Taper Durezol drops as per Dr. Graham. Decrease PO prednisone slightly to 7.5 mg daily Decrease PO valacyclovir to 1 g daily. (Will likely need to continue this dose indefinitely to protect the left eye from developing acute retinal necrosis) Follow up in about a month or whenever she will see Dr. Graham again. (Repeat macula OCT) documented in this encounter Plan of Treatment Upcoming Encounters Date Type Department Care Team (Late st Contact Info) Description 08/27/2024 1:00 PM CDT Ancillary Procedure Department of Ophthalmology in [address] [phone] Prakash Graham M.D. [address] [place] [phone] 08/27/2024 1:30 PM CDT Ancillary Procedure Department of Ophthalmology in [place], [place] [address] [place] [phone] Kenya Garza M.D. [address] [place] [phone] 08/27/2024 1:45 PM CDT Office Visit Department of Ophthalmology in [address] [phone] Kenya Garza M.D. [address] [place] [phone] 08/27/2024 2:30 PM CDT Office Visit Department of Ophthalmology in [address] [phone] Prakash Graham M.D. [address] [place] [phone] Scheduled Orders Name Type Priority Associated Diagnoses Orde r Schedule Optical Coherence Tomography - Macula/Retina - OU - Both Eyes Ophthalmology Routine Panuveitis Right Necrosis Retinal Acute Right 1 Occurrences starting 07/16/2024 until 07/16/2027 Scheduled Referrals Name Type Priority Associated Diagnoses Order Schedule Ophthalmology office visit (clinic) Outpatient Referral Routine Panuveitis Right Necrosis Retinal Acute Right Expected: 08/13/2024 (Approximate), Expires: 07/16/2027 documented as of this encounter Visit Diagnoses Diagnosis Panuveitis Right- Primary Necrosis Retinal Acute Right documented in this encounter Care Teams Inspector [employer]ed [employer] Boards Relationship Specialty Start Date End Date Elsewhere, Pcp PCP - General Internal Medicine 05/29/19 documented as of this encounter
--- OUTSIDE RECORDS SUMMARY | 2024-07-24 02:38 | XMS_ITS | Encounter Summary ---
Author Organization [facility] Address [address] [place] [address] Care Team Providers Care Brick Baker Name Role Phone Elsewhere, Pcp Primary Care Provider Unavailabl e Encounter Details Date Type Department Care Team (Latest Contact Info) Description 05/20/2024 Clinical Communication Department of Ophthalmology in [place], [place] [address] [place] [phone] Renaldo Hawk M.D. [address] [place] [phone] Social History Tobacco Use Types Packs/Day Years Used Date Smoking Tobacco: Former Cigarettes 0.7 70.4 0 03/28/1975 - 01/09/2022 Smokeless Tobacco: Never Comments:On again off again Alcohol Use Standard Drinks/Week Comments Yes 5 (1 standard drink = 0.6 oz pur e alcohol) occasional [facility] Utilities Answer Date Recorded In the past 12 months has [employer], gas, oil, or water [employer] threatened to shut off services in your home? No 11/05/2023 Social Connection and Isolation Panel [NHANES] A nswer Date Recorded In a typical week, how many times do you talk on the phone with family, friends, or neighbors? Once a week 06/27/2020 How often do you get together with friends or re latives? Never 06/27/2020 How often do you attend islam or nondenominational serv ices? Never 06/27/2020 Do [...] Somewhat hard 06/27/2020 [facility] [place] of Occupat ional Health - Occupational Stress [...] your living situation today? I have a [facility] place to live 11/05/2023 Education [...] CDT Ancillary Procedure Department of Ophthalmology in [place], [place] [address] [place] [phone] Prakash Graham M.D. [address] [place] [phone] 08/27/2024 1:30 PM CDT Ancillary Procedure Department of Ophthalmology in [place], [place] [address] [place] [phone] Kenya Garza M.D. [address] [place] [phone] 08/27/2024 1:45 PM CDT Office Visit Department of Ophthalmology in [place], [place] [address] [place] [phone] Kenya Garza M.D. [address] [place] [phone] 08/27/2024 2:30 PM CDT Office Visit Department of Ophthalmology in [place], [place] [address] [place] [phone] Prakash Graham M.D. [address] [place] [phone] documented as of this encounter Visit Diagnoses Not on filedocumented in this encounter Care Teams Brick Baker Relationship Specialty Start Date End Date Elsewhere, Pcp PCP - General Internal Medicine 05/29/19 documented as of this encounter
--- OUTSIDE RECORDS SUMMARY | 2024-07-24 02:38 | XMS_ITS | Encounter Summary ---
Author Organization [facility] Address [address] [place] [address] Care Team Providers Care Company [employer] Name Role Phone Elsewhere, Pcp Primary Care Provider Unavailabl e Reason for Visit * Reason Comments Post-op Follow-up * Outpatient (Routine) - Closed Specialty Diagnoses / Procedures Referred By Apolinar lopez Referred To Contact Ophthalmology Opal Graham M.D. [address] [place] [phone] [facility] Referral ID Status Reason Start Date Expiration Date Visits Re quested Visits Authorized [id number] Closed 03/13/2024 09/12/2025 1 1 Encounter Details Date Type Department Care Team (Latest Contact Info) Description 06/02/2024 8:00 AM CDT Office Visit Department of Ophthalmology in [place], [place] [address] [place] [phone] Opal Graham M.D. [address] [place] [phone] Necrosis Retinal Acute Right (Primary Dx); [...] Recorded In the past 12 months has [employer] electric, gas, oil, or water company threatened [...] How often do you attend episcopal or congregational serv ices? Never 06/27/2020 Do [...] CDT Ancillary Procedure Department of Ophthalmology in [place], [place] [address] [place] [phone] Opal Graham M.D. [address] [place] [phone] 08/27/2024 1:30 PM CDT Ancillary Procedure Department of Ophthalmology in [place], [place] [address] [place] [phone] Kenya Garza M.D. [address] [place] [phone] 08/27/2024 1:45 PM CDT Office Visit Department of Ophthalmology in [place], [place] [address] [place] [phone] Kenya Garza M.D. [address] [place] [phone] 08/27/2024 2:30 PM CDT Office Visit Department of Ophthalmology in [place], [place] [address] [place] [address] Opal Graham M.D. 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
--- OUTSIDE RECORDS SUMMARY | 2024-07-24 02:38 | XMS_ITS | Encounter Summary ---
Author Organization [facility] Address [address] [place] [phone] Care Team Providers Care Usability Specialist Name Role Phone Elsewhere, Pcp Primary Care Provider Unavailabl e Reason for Visit * Outpatient (Routine) - Closed Specialty Diagnoses / Procedures Referred By Contmuriel t Referred To Contact Ophthalmology Prakash Graham M.D. [address] [place] [phone] [facility] Referral ID Status Reason Start Date Expiration Date Visits Re quested Visits Authorized [id number] Closed 03/13/2024 09/12/2025 1 1 Encounter Details Date Type Department Care Team (Latest Contact Info) Description 06/09/2024 10:00 AM CDT Office Visit Department of Ophthalmology in [place], [place] [address] [place] [phone] Prakash Graham M.D. [address] [place] [phone] Necrosis Retinal Acute Right (Primary Dx); [...] How often do you attend restorationist or caodaism serv ices? Never 06/27/2020 Do [...] heating? Somewhat hard 06/27/2020 [facility] [place] of Occupat ional Health - Occupational Stress [...] CDT Ancillary Procedure Department of Ophthalmology in [place], [place] [address] [place] [phone] Prakash Graham M.D. [address] [place] [phone] 08/27/2024 1:30 PM CDT Ancillary Procedure Department of Ophthalmology in [place], [place] [address] [place] [phone] Kenya Garza M.D. [address] [place] [phone] 08/27/2024 1:45 PM CDT Office Visit Department of Ophthalmology in [place], [place] [address] [place] [phone] Kenya Garza M.D. [address] [place] [phone] 08/27/2024 2:30 PM CDT Office Visit Department of Ophthalmology in [place], [place] [address] [place] [phone] Prakash Graham M.D. [address] [place] [phone] documented as of this encounter Visit Diagnoses Diagnosis Necrosis Retinal Acute Right- Primary Proliferative Vitreoretinopathy Right documented in this encounter Care Teams Usability Specialist Relationship Specialty Start Date End Date Elsewhere, Pcp PCP - General Internal Medicine 05/29/19 documented as of this encounter
--- OUTSIDE RECORDS SUMMARY | 2024-07-24 02:38 | XMS_ITS | Referral Summary ---
Author Organization [facility] Address [address] [place] [address] Care Team Providers Care Stone Cutter Name Role Phone Elsewhere, Pcp Primary Care Provider Unavailabl e Source Comments Patient records contain information from all sites at [facility]. For routine questions regarding patient records, call [phone] during business hours, M-F 8:00 AM - 5:00 PM Central Time. Record requests for emergency care only can be directed to [phone] at any time.[facility] Encounters Date Type Department Care Team Description 07/16/2024 Ancillary Procedure Department of Ophthalmology 07/16/2024 12:45 PM CDT Office Visit Department of Ophthalmology in [place], [place] [address] [place] [phone] Prakash Graham M.D. Proliferative Vitreoretinopathy Right (Primary Dx) 07/16/2024 9:30 AM CDT Office Visit Department of Ophthalmology in [place], [place] [address] [place] [address] Kenya Garza M.D. Panuveitis Right (Primary Dx); Necrosis Retinal Acute Right 07/16/2024 9:15 AM CDT Ancillary Procedure Department of Ophthalmology in [place], [place] [address] [place] [phone] Prakash Graham M.D. Panuveitis Right; Necrosis Retinal Acute Right 06/09/2024 10:00 AM CDT Office Visit Department of Ophthalmology in [place], [place] [address] [place] [address] Prakash Graham M.D. Necrosis Retinal Acute Right (Primary Dx); Proliferative Vitreoretinopathy Right 06/02/2024 Orders Only Pharmacy Prior Auth [phone] Ashly Inman E 06/02/2024 Clinical Communication Department of Ophthalmology in [place], [place] [address] [place] [phone] Prakash Graham M.D. 06/02/2024 Refill Department of Ophthalmology in [place], [place] [address] [place] [phone] Prakash Graham M.D. Med Change Request 06/02/2024 8:00 AM CDT Office Visit Department of Ophthalmology in [place], [place] [address] [place] [phone] Prakash Graham M.D. Necrosis Retinal Acute Right (Primary Dx); Proliferative Vitreoretinopathy Right 06/01/2024 3:08 PM CDT Anesthesia Event [facility] OR [address] [place] [phone] Gaye Giraldo M.D. Sell, David J, APRN, BUCKLE WIRE INSERTER 06/01/2024 2:29 PM CDT - 06/01/2024 5:26 PM CDT Surgery [facility] OR [address] [place] [phone] Prakash Graham M.D. VITRECTOMY, PARS PLANA 25 GAUGE, MEMBRANE PEEL, SILICONE OIL 06/01/2024 1:25 PM CDT - 06/01/2024 7:27 PM CDT Hospital Encounter [facility] OR [address] [place] [phone] Prakash Graham M.D. Discharge Disposition: Home or Self Care 05/26/2024 9:45 AM CDT Office Visit Department of Ophthalmology in [address] [phone] Prakash Graham M.D. Necrosis Retinal Acute Right (Primary Dx) 05/20/2024 Clinical Communication Department of Ophthalmology in [place], [place] [address] [place] [phone] Renaldo Hawk M.D. 05/07/2024 2:00 PM CDT Office Visit Department of Ophthalmology in [place], [place] [address] [place] [address] Renaldo Hawk M.D. Necrosis Retinal Acute Right (Primary Dx); Proliferative Vitreoretinopathy Right; Panuveitis Right; Primary Hypotony Right Eye; Posterior Reversible Encephalopathy Syndrome 05/04/2024 Clinical Communication Department of Ophthalmology in [place], [place] [address] [place] [address] Kenya Garza M.D. Follow Up Visit from ER 04/27/2024 Clinical Communication Department of Ophthalmology in [place], [place] [address] [place] [address] Prakash Graham M.D. Surgery today 04/27 from Last 3 Months Allergies Active Allergy Reactions Criticality Noted Date Comments Aller Xt-Hardin Poll[place] Blisters,Itching,Ra sh High 06/21/2020 Methotrexate Other (see [...] Recorded In the past 12 months has [employer] electric, gas, oil, or water company threatened [...] How often do you attend scientologist or holiness serv ices? Never 06/27/2020 Do [...] medical care, and heating? Somewhat hard 06/27/2020 [facility] [place] of Occupat ional Health [...] CDT Ancillary Procedure Department of Ophthalmology in [place], [place] [address] [place] [phone] Prakash Graham M.D. [address] [place] [phone] 08/27/2024 1:30 PM CDT Ancillary Procedure Department of Ophthalmology in [place], [place] [address] [place] [phone] Kenya Garza M.D. [address] [place] [phone] 08/27/2024 1:45 PM CDT Office Visit Department of Ophthalmology in [place], [place] [address] [place] [phone] Kenya Garza M.D. [address] [place] [phone] 08/27/2024 2:30 PM CDT Office Visit Department of Ophthalmology in [place], [place] [address] [place] [phone] Prakash Graham M.D. [address] [place] [phone] Medical Devices Implanted Type Area Quality Improvement Analyst Device Identifier Shelf Expiration Date Model / Serial / Lot Stephie Elias Rnd 1x2.1x30 - [id number] Implanted:Qty : 1 on 06/01/2024 by Prakash Graham M.D. at [facility] Ocular (Eye) Implant Right: Eye [employer] 11/27/2030 [id number] / / [id number] Band Implanted:Qty : 1 on 06/01/2024 by Prakash Graham M.D. at [facility] Ocular (Eye) Implant Right: Eye ZEISS [id number] / / [id number] Stent Other Stent Other Chest Description:Has stent [...] With Single Break Right Eye Case Notes DRUM BUILDER @ 1331, TPU 10 VITRECTOMY - PARS PLANA 25 GAUGE 06/01/2024 2:58 PM CDT Panuveitis Right Necrosis Retinal Acute Right Proliferative Vitreoretinopathy Right Retinal Detachment With Single Break Right Eye Case Notes DRUM BUILDER @ 1331, TPU 10 COMPREHENSIVE METABOLIC PANEL, S/P Routine 11/05/2023 4:03 PM PHYSICIAN OFFICE CLIN ASST Uveitis CT CHEST WITH IV CONTRAST RAD [...] Graham M.D. OPHTH TOMOGRAPHY Performing Organization Address [facility] Co de Phone Number OPHTHALMOLOGY [...] RAD IMAGI NG PROCEDURES Performing Organization Address [facility] Co de Phone Number IIMS NA * (ABNORMAL) Glucose, POCT (06/01/2024 6:36 PM CDT) Glucose, POCT, B 207(H) 70 - 140 mg/dL 06/01/2024 6:46 PM CDT PCLX Site Capillary 06/01/2024 6:46 PM CDT PCLX Blood 06/01/2024 6:36 PM CDT 06/01/2024 6:47 PM CDT Unknown Provider LAB POCT ORDERABLES- MANUAL POC [facility] [address] [place] [address], [facility] PCLX [facility] POC [address] [place] [address] * LDA ANE NON-SURGICAL AIRWAY (06/01/2024 3:17 [...] (ABNORMAL) Comprehensive Metabolic Panel (11/05/2023 4:03 PM PHYSICIAN OFFICE CLIN ASST) Potassium, S 4.4 3.6 - 5.2 mmol/L 11/05/2023 5:04 PM PHYSICIAN OFFICE CLIN ASST DTL Sodium, S 139 135 - 145 mmol/L 11/05/2023 5:04 PM PHYSICIAN OFFICE CLIN ASST DTL Chloride, S 101 98 - 107 mmol/L 11/05/2023 5:04 PM PHYSICIAN OFFICE CLIN ASST DTL Bicarbonate, S 27 22 - 29 mmol/L 11/05/2023 5:04 PM PHYSICIAN OFFICE CLIN ASST DTL Anion Gap 11 7 - 15 11/05/2023 5:04 PM PHYSICIAN OFFICE CLIN ASST DTL BUN (Blood Urea Nitrogen), S 17 6 - 21 mg/dL 11/05/2023 5:04 PM PHYSICIAN OFFICE CLIN ASST DTL Creatinine 0.76 0.59 - 1.04 mg/dL 11/05/2023 5:04 PM PHYSICIAN OFFICE CLIN ASST DTL Estimated GFR (eGFR) 86 >=60 mL/min/BS A 11/05/2023 5:04 PM PHYSICIAN OFFICE CLIN ASST DTL Comment: Estimated GFR calculated using the 2020 CKD_EPI creatinine equation. Calcium, Total, S 10.1 8.8 - 10.2 mg/dL 11/05/2023 5:20 PM PHYSICIAN OFFICE CLIN ASST DTL Glucose, S 104 70 - 140 mg/dL 11/05/2023 5:04 PM PHYSICIAN OFFICE CLIN ASST DTL Protein, Total, S 6.1(L) 6.3 - 7.9 g/dL 11/05/2023 5:04 PM PHYSICIAN OFFICE CLIN ASST DTL Albumin, S 4.3 3.5 - 5.0 g/dL 11/05/2023 5:04 PM PHYSICIAN OFFICE CLIN ASST DTL Aspartate Aminotransferase (AST), S 16 8 - 43 U/L 11/05/2023 5:04 PM PHYSICIAN OFFICE CLIN ASST DTL Alkaline Phosphatase, S 81 35 - 104 U/L 11/05/2023 5:04 PM PHYSICIAN OFFICE CLIN ASST DTL Alanine Aminotransferase (ALT), S 16 7 - 45 U/L 11/05/2023 5:04 PM PHYSICIAN OFFICE CLIN ASST DTL Bilirubin, Total, S 1.2 0.0 - 1.2 mg/dL 11/05/2023 5:04 PM PHYSICIAN OFFICE CLIN ASST DTL Blood (Blood, Venous) 11/05/2023 4:03 PM PHYSICIAN OFFICE CLIN ASST 11/05/2023 4:41 PM PHYSICIAN OFFICE CLIN ASST Kenya Garza M.D. LAB BLOOD ADD-ON [facility] [address] [place] [address], [place] DTL [facility] [address] [place] [address] * CT Chest with IV Contrast (03/31/2020 [...] Recently Relevant to Health Maintenance Care Teams Stone Cutter Relationship Specialty Start Date End Date Elsewhere, Pcp PCP - General Internal Medicine 05/29/19
--- OUTSIDE RECORDS SUMMARY | 2024-07-24 02:38 | XMS_ITS | Encounter Summary ---
Author Organization [facility] Address [address] [place] [address] Care Team Providers Care Electrician Powerhouse Name Role Phone Elsewhere, Pcp Primary Care Provider Unavailabl e Reason for Visit * Auth/Cert (Routine) Specialty Diagnoses / Procedures Referred By Apolinar t Referred To Contact Diagnoses Panuveitis Right Necrosis Retinal Acute Right Panuveitis Right [H44.111] Necrosis Retinal Acute Right [H30.131] Procedures WY VITRECT W RMVL PRERETINAL MEMB WY RPR DETACH RETINA CMPLX VITRECTOMY - PARS PLANA 25 GAUGE / MEMBRANE PEEL / SILICONE OIL AND ALL ASSOCIATED PROCEDURES RIGHT EYE SCLERAL BUCKLING Prakash Graham M.D. [address] [place] [phone] Referral ID Status Reason Start Date Expiration Date Visits Re quested Visits Authorized [id number] 1 1 Encounter Details Date Type Department Care Team (Late st Contact Info) Description 06/01/2024 3:08 PM CDT Anesthesia Event [facility] OR [address] [place] [phone] Gaye Giraldo M.D. [address] [place] [phone] Easton Duran APRN, TIMBER BUYER [address] [place] [phone] Anesthesia Record Procedure Summary Procedure Name [...] Anes CS Handoff I, Easton mansfield, MIGUEL, TIMBER BUYER, attest that I have reconciled the controlled [...] procedure documentation); Mask Ventilation: Easy mask; Brand: Amo; Size: 4; Removal Date: 06/01/24; Removal Time: [...] = 0.6 oz pur e alcohol) occasional [facility] Utilities Answer Date Recorded In the past 12 months has [employer] electric, gas, oil, or water company threatened [...] How often do you attend quaker or hoahaoism serv ices? Never 06/27/2020 Do [...] and heating? Somewhat hard 06/27/2020 [facility] [place] of Occupat ional Health - Occupational Stress [...] your living situation today? I have a [facility] place to live 11/05/2023 Education Answer [...] Procedure Summary Date: 06/01/24 Room / Location: [address] 03 80 / [facility] in [place], [place] Anesthesia Start: 1508 Anesthesia Stop: 183 [...] Airway Date/Time: 06/01/2024 3:17 PM Performed by: Easotn Duran APRN, CRNA Authorized by: Bernardino Carbajal [...] [H44.111], Necrosis Retinal Acute Right [H30.131]. Location: [place] [address] / [facility] [place], [place] Providers: Prakash Graham M.D. Pertinent components [...] with patient /legal guardian or through an hotel room attendant. The use of blood products not discussed Approval to Proceed: approved for anesthesia documented in this encounter Plan of Treatment Upcoming Encounters Date Type Department Care Team (Late st Contact Info) Description 08/27/2024 1:00 PM CDT Ancillary Procedure Department of Ophthalmology in [address] [phone] Prakash Graham M.D. [address] [place] [phone] 08/27/2024 1:30 PM CDT Ancillary Procedure Department of Ophthalmology in [address] [phone] Kenya Garza M.D. [address] [place] [phone] 08/27/2024 1:45 PM CDT Office Visit Department of Ophthalmology in [address] [phone] Kenya Garza M.D. [address] [place] [phone] 08/27/2024 2:30 PM CDT Office Visit Department of Ophthalmology in [address] [phone] Prakash Graham M.D. [address] [place] [phone] documented as of this encounter Procedures Procedure [...] mg documented in this encounter Care Teams Electrician Powerhouse Relationship Specialty Start Date End Date Elsewhere, Pcp PCP - General Internal Medicine 05/29/19 documented as of this encounter
--- OUTSIDE RECORDS SUMMARY | 2024-07-24 02:38 | XMS_ITS | Encounter Summary ---
Author Organization [facility] Address [address] [place] [address] Care Team Providers Care Dance Teacher Name Role Phone Elsewhere, Pcp Primary Care Provider Unavailabl e Reason for Visit * Reason Comments Med Change Request Encounter Details Date Type Department Care Team (Late st Contact Info) Description 06/02/2024 Refill Department of Ophthalmology in [place], [place] [address] [place] [phone] Prakash Graham M.D. [address] [place] [phone] Med Change Request Social History Tobacco Use Types Packs/Day Years Used Date Smoking Tobacco: Former Cigarettes 0.7 70.4 0 03/28/1975 - 01/09/2022 Smokeless Tobacco: Never Comments:On again off again Alcohol Use Standard Drinks/Week Comments Yes 5 (1 standard drink = 0.6 oz pur e alcohol) occasional [facility] Utilities Answer Date Recorded In the past 12 months has [employer], gas, oil, or water [employer] threatened to shut off services in your home? No 11/05/2023 Social Connection and Isolation Panel [NHANES] A nswer Date Recorded In a typical week, how many times do you talk on the phone with family, friends, or neighbors? Once a week 06/27/2020 How often do you get together with friends or re latives? Never 06/27/2020 How often do you attend mormon or anabaptist serv ices? Never 06/27/2020 Do [...] CDT Ancillary Procedure Department of Ophthalmology in [place], [place] [address] [place] [phone] Prakash Graham M.D. [address] [place] [phone] 08/27/2024 1:30 PM CDT Ancillary Procedure Department of Ophthalmology in [place], [place] [address] [place] [phone] Kenya Garza M.D. [address] [place] [phone] 08/27/2024 1:45 PM CDT Office Visit Department of Ophthalmology in [place], [place] [address] [place] [phone] Kenya Garza M.D. [address] [place] [phone] 08/27/2024 2:30 PM CDT Office Visit Department of Ophthalmology in [place], [place] [address] [place] [phone] Prakash Graham M.D. [address] [place] [phone] documented as of this encounter Visit Diagnoses Not on filedocumented in this encounter Care Teams Dance Teacher Relationship Specialty Start Date End Date Elsewhere, Pcp PCP - General Internal Medicine 05/29/19 documented as of this encounter
--- OUTSIDE RECORDS SUMMARY | 2024-07-24 02:38 | XMS_ITS | Encounter Summary ---
Author Organization [facility] Address [address] [place] [address] Care Team Providers Care Liner Helper Name Role Phone Elsewhere, Pcp Primary Care Provider Unavailabl e Encounter Details Date Type Department Care Team (Latest Contact Info) Description 06/02/2024 Clinical Communication Department of Ophthalmology in [place], [place] [address] [place] [address] Praksah Graham M.D. [address] [place] [address] Social History Tobacco Use Types Packs/Day Years Used Date Smoking Tobacco: Former Cigarettes 0.7 70.4 0 03/28/1975 - 01/09/2022 Smokeless Tobacco: Never Comments:On again off again Alcohol Use Standard Drinks/Week Comments Yes 5 (1 standard drink = 0.6 oz pur e alcohol) occasional [facility] Utilities Answer Date Recorded In the past 12 months has [employer], gas, oil, or water company threatened to [...] How often do you attend advent or scientology serv ices? Never 06/27/2020 Do [...] heating? Somewhat hard 06/27/2020 [facility] [place] of Occupat ional Health - Occupational Stress [...] CDT Ancillary Procedure Department of Ophthalmology in [place], [place] [address] [place] [phone] Prakash Graham M.D. [address] [place] [phone] 08/27/2024 1:30 PM CDT Ancillary Procedure Department of Ophthalmology in [place], [place] [address] [place] [phone] Kenya Garza M.D. [address] [place] [phone] 08/27/2024 1:45 PM CDT Office Visit Department of Ophthalmology in [place], [place] [address] [place] [address] Kenya Garza M.D. [address] [place] [phone] 08/27/2024 2:30 PM CDT Office Visit Department of Ophthalmology in [place], [place] [address] [place] [phone] Prakash Graham M.D. [address] [place] [phone] documented as of this encounter Visit Diagnoses Not on filedocumented in this encounter Care Teams Liner Helper Relationship Specialty Start Date End Date Elsewhere, Pcp PCP - General Internal Medicine 05/29/19 documented as of this encounter
--- OUTSIDE RECORDS SUMMARY | 2024-07-24 02:39 | XMS_ITS | Encounter Summary ---
Author Organization [facility] Address [address] [place] [address] Care Team Providers Care President & Ceo Name Role Phone Elsewhere, Pcp Primary Care [...] How often do you attend anabaptist or scientologist serv ices? Never 06/27/2020 Do [...] medical care, and heating? Somewhat hard 06/27/2020 [facility] of Occupat ional [facility] - Occupational Stress Questionnaire Answer [...] Ancillary Procedure Department of Ophthalmology in [address] [phone] Prakash Graham M.D. [address] [place] [phone] 08/27/2024 1:30 PM CDT Ancillary Procedure Department of Ophthalmology in [address] [phone] Kenya Garza M.D. [address] [place] [phone] 08/27/2024 1:45 PM CDT Office Visit Department of Ophthalmology in [address] [phone] Kenya Garza M.D. [address] [place] [phone] 08/27/2024 2:30 PM CDT Office Visit Department of Ophthalmology in [place], [place] [address] [place] [phone] Prakash Graham M.D. [address] [place] [phone] documented as of this encounter Procedures Procedure Name Priority Date/Time Associated Diagnosis Comments OPHTHALMOLOGY IMAGE EXAM Routine 04/16/2024 12:00 AM CDT documented in this encounter Results * Eyes US-Eye [id number] Image Exam (04/16/2024 12:00 AM CDT) Narrative [...] on filedocumented in this encounter Care Teams President & Ceo Relationship Specialty Start Date End Date Elsewhere, Pcp PCP - General Internal Medicine 05/29/19 documented as of this encounter
--- OUTSIDE RECORDS SUMMARY | 2024-07-24 02:39 | XMS_ITS | Encounter Summary ---
Author Organization [facility] Address [address] [place] [address] Care Team Providers Care Communications Intern Name Role Phone Elsewhere, Pcp Primary Care Provider Unavailabl e Reason for Visit * Reason Onset Date Comments Follow Up Visit from ER 05/04/2024 Encounter Details Date Type Department Care Team (Latest Contact Info) Description 05/04/2024 Clinical Communication Department of Ophthalmology in [place], [place] [address] [place] [address] Kenya Garza M.D. [address] [place] [address] Follow Up Visit from ER Social History Tobacco Use Types Packs/Day Years Used Date Smoking Tobacco: Former Cigarettes 0.7 70.4 0 03/28/1975 - 01/09/2022 Smokeless Tobacco: Never Comments:On again off again Alcohol Use Standard Drinks/Week Comments Yes 5 (1 standard drink = 0.6 oz pur e alcohol) occasional [facility] Utilities Answer Date Recorded In the past 12 months has [employer] electric, gas, oil, or water company threatened [...] How often do you attend sabianism or presybeterian serv ices? Never 06/27/2020 Do [...] 06/27/2020 [facility] of Occupat ional Health - [...] CDT Ancillary Procedure Department of Ophthalmology in [place], [place] [address] [place] [phone] Prakash Graham M.D. [address] [place] [phone] 08/27/2024 1:30 PM CDT Ancillary Procedure Department of Ophthalmology in [place], [place] [address] [place] [phone] Kenya Garza M.D. [address] [place] [phone] 08/27/2024 1:45 PM CDT Office Visit Department of Ophthalmology in [place], [place] [address] [place] [phone] Kenya Garza M.D. [address] [place] [phone] 08/27/2024 2:30 PM CDT Office Visit Department of Ophthalmology in [place], [place] [address] [place] [phone] Prakash Graham M.D. [address] [place] [phone] documented as of this encounter Visit Diagnoses Not on filedocumented in this encounter Care Teams Communications Intern Relationship Specialty Start Date End Date Elsewhere, Pcp PCP - General Internal Medicine 05/29/19 documented as of this encounter
--- OUTSIDE RECORDS SUMMARY | 2024-07-24 02:39 | XMS_ITS | Encounter Summary ---
Author Organization [facility] Address [address] [place] [address] Care Team Providers Care Green Tire Inspector Name Role Phone Elsewhere, Pcp Primary Care Provider Unavailabl e Reason for Referral * Outpatient (Routine) - Closed Specialty Diagnoses / Procedures Referred By Contac t Referred To Contact Cardiovascular Disease Diagnoses Coronary Artery Disease (Unspecified) Katerine Bashir M.D. [address] [place] [address] [facility] Referral ID Status Reason Start Date Expiration Date Visits Re quested Visits Authorized [id number] Closed 02/10/2019 02/10/2020 3 3 Encounter Details Date Type Department Care Team (Late st Contact Info) Description 02/10/2019 [facility] [address] [place] [address] Katerine Bashir M.D. [address] [place] [address] Coronary Artery Disease (Unspecified) (Primary [...] CDT Ancillary Procedure Department of Ophthalmology in [place], [place] [address] [place] [phone] Prakash Graham M.D. [address] [place] [phone] 08/27/2024 1:30 PM CDT Ancillary Procedure Department of Ophthalmology in [place], [place] [address] [place] [phone] Kenya aGrza M.D. [address] [place] [phone] 08/27/2024 1:45 PM CDT Office Visit Department of Ophthalmology in [place], [place] [address] [place] [phone] Kenya Garza M.D. [address] [place] [phone] 08/27/2024 2:30 PM CDT Office Visit Department of Ophthalmology in [place], [place] [address] [place] [phone] Prakash Graham M.D. [address] [place] [phone] Scheduled Referrals Name Type Priority Associated Diagnoses [...] documented as of this encounter Care Teams Green Tire Inspector Relationship Specialty Start Date End Date Elsewhere, Pcp PCP - General Internal Medicine 05/29/19 documented as of this encounter
--- OUTSIDE RECORDS SUMMARY | 2024-07-24 02:39 | XMS_ITS | Encounter Summary ---
Author Organization [facility] Address [address] [place] [address] Care Team Providers Care Rubber Thread Spooler Name Role Phone Elsewhere, Pcp Primary Care Provider Unavailabl e Reason for Referral * Outpatient (Routine) - Closed Specialty Diagnoses / Procedures Referred By Contac t Referred To Contact Cardiovascular Disease Diagnoses Coronary Artery Disease (Unspecified) Katerine Bashir M.D. [address] [place] [address] [facility] Referral ID Status Reason Start Date Expiration Date Visits Re quested Visits Authorized [id number] Closed 02/12/2019 02/12/2020 1 1 Encounter Details Date Type Department Care Team (Late st Contact Info) Description 02/12/2019 [facility] [address] [place] [address] Katerine Bashir M.D. [address] [place] [address] Coronary Artery Disease (Unspecified) (Primary [...] CDT Ancillary Procedure Department of Ophthalmology in [place], [place] [address] [place] [phone] Prakash Graham M.D. [address] [place] [phone] 08/27/2024 1:30 PM CDT Ancillary Procedure Department of Ophthalmology in [place], [place] [address] [place] [phone] Kenya Garza M.D. [address] [place] [phone] 08/27/2024 1:45 PM CDT Office Visit Department of Ophthalmology in [place], [place] [address] [place] [phone] Kenya Garza M.D. [address] [place] [phone] 08/27/2024 2:30 PM CDT Office Visit Department of Ophthalmology in [place], [place] [address] [place] [phone] Prakash Graham M.D. [address] [place] [phone] Scheduled Referrals Name Type Priority Associated Diagnoses [...] documented as of this encounter Care Teams Rubber Thread Spooler Relationship Specialty Start Date End Date Elsewhere, Pcp PCP - General Internal Medicine 05/29/19 documented as of this encounter
--- OUTSIDE RECORDS SUMMARY | 2024-07-24 02:39 | XMS_ITS | Encounter Summary ---
Author Organization [facility] Address [address] [place] [address] Care Team Providers Care Scrap Metal Processing Worker Name Role Phone Elsewhere, Pcp Primary [...] Recorded In the past 12 months has [employer], gas, oil, or water company threatened [...] How often do you attend taoism or orthodoxy serv ices? Never 06/27/2020 Do [...] care, and heating? Somewhat hard 06/27/2020 [facility] Occupat ional [facility] - [...] your living situation today? [facility] 11/05/2023 Education Answer Date [...] CDT Ancillary Procedure Department of Ophthalmology in [place], [place] [address] [place] [phone] Prakash Graham M.D. [address] [place] [phone] 08/27/2024 1:30 PM CDT Ancillary Procedure Department of Ophthalmology in [place], [place] [address] [place] [phone] Kenya Garza M.D. [address] [place] [phone] 08/27/2024 1:45 PM CDT Office Visit Department of Ophthalmology in [address] [phone] Kenya Garza M.D. [address] [place] [phone] 08/27/2024 2:30 PM CDT Office Visit Department of Ophthalmology in [place], [place] [address] [place] [phone] Prakash Graham M.D. [address] [place] [phone] documented as of this encounter Procedures Procedure [...] System IMG NON RAD IMAGI NG PROCEDURES IIUT NA documented in this encounter Visit Diagnoses Not on filedocumented in this encounter Care Teams Scrap Metal Processing Worker Relationship Specialty Start Date End Date Elsewhere, Pcp PCP - General Internal Medicine 05/29/19 documented as of this encounter
--- OUTSIDE RECORDS SUMMARY | 2024-07-24 02:39 | XMS_ITS | Encounter Summary ---
Author Organization [facility] Address [address] [place] [address] Care Team Providers Care Combo Welder Name Role Phone Elsewhere, Pcp Primary Care Provider Unavailabl e Encounter Details Date Type Department Care Team (Latest Contact Info) Description 04/16/2024 2:00 PM CDT Ancillary Procedure Department of Ophthalmology in [place], [place] [address] [place] [address] Kenya Garza M.D. [address] [place] [address] Necrosis Retinal Acute Right Social History Tobacco Use Types Packs/Day Years Used Date Smoking Tobacco: Former Cigarettes 0.7 70.4 0 03/28/1975 - 01/09/2022 Smokeless Tobacco: Never Comments:On again off again Alcohol Use Standard Drinks/Week Comments Yes 5 (1 standard drink = 0.6 oz pur e alcohol) occasional [facility] Utilities Answer Date Recorded In the past 12 months has [employer], gas, oil, or water [employer] threatened to shut off services in your home? No 11/05/2023 Social Connection and Isolation Panel [NHANES] A nswer Date Recorded In a typical week, how many times do you talk on the phone with family, friends, or neighbors? Once a week 06/27/2020 How often do you get together with friends or re latives? Never 06/27/2020 How often do you attend latter day or mandaeism serv ices? Never 06/27/2020 Do [...] medical care, and heating? Somewhat hard 06/27/2020 [facility] of Occupat ional Health - Occupational Stress [...] CDT Ancillary Procedure Department of Ophthalmology in [place], [place] [address] [place] [phone] Prakash Graham M.D. [address] [place] [phone] 08/27/2024 1:30 PM CDT Ancillary Procedure Department of Ophthalmology in [place], [place] [address] [place] [phone] Kenya Garza M.D. [address] [place] [phone] 08/27/2024 1:45 PM CDT Office Visit Department of Ophthalmology in [place], [place] [address] [place] [phone] Kenya Garza M.D. [address] [place] [phone] 08/27/2024 2:30 PM CDT Office Visit Department of Ophthalmology in [place], [place] [address] [place] [phone] Prakash Graham M.D. [address] [place] [phone] documented as of this encounter Procedures Procedure [...] ciliary body detachment noted, possible ciliochoroidal effusion. [facility] Kenya Garza M.D. OPHTH ULTRASOUND OPHTHALMOLGY NON-IMAGING ORDERS documented in this encounter Visit Diagnoses Diagnosis Necrosis Retinal Acute Right documented in this encounter Care Teams Combo Welder Relationship Specialty Start Date End Date Elsewhere, Pcp PCP - General Internal Medicine 05/29/19 documented as of this encounter
--- OUTSIDE RECORDS SUMMARY | 2024-07-24 02:39 | XMS_ITS | Encounter Summary ---
Author Organization [facility] Address [address] [place] [address] Care Team Providers Care Incident Analyst Name Role Phone Elsewhere, Pcp Primary Care Provider Unavailabl e Reason for Referral * Outpatient (Routine) - Closed Specialty Diagnoses / Procedures Referred By Apolinar lopez Referred To Contact Ophthalmology Kenya Garza M.D. 200 [place] [address] [facility] Referral ID Status Reason Start Date Expiration Date Visits Re quested Visits Authorized [id number] Closed 04/16/2024 10/16/2025 1 1 Scheduling Instructions I will see her on the same day as one of the post-op visits. (Probably the one after early May.) Reason for Visit * Reason Comments Follow-up * Outpatient (Routine) - Closed Specialty Diagnoses / Procedures Referred By Apolinar lopez Referred To Contact Ophthalmology Diagnoses Necrosis Retinal Acute Right Kenya Garza M.D. 200 [place] [address] [facility] Referral ID Status Reason Start Date Expiration Date Visits Re quested Visits Authorized [id number] Closed 03/13/2024 09/12/2025 1 1 Encounter Details Date Type Department Care Team (Latest Contact Info) Description 04/16/2024 2:30 PM CDT Office Visit Department of Ophthalmology in [place], [place] [address] [place] [phone] Kenya Garaz M.D. 200 [place] [phone] Necrosis Retinal Acute Right (Primary Dx); Proliferative [...] often do you attend oriental orthodox or shinto serv ices? Never 06/27/2020 Do [...] medical care, and heating? Somewhat hard 06/27/2020 [facility] of Occupat ional Health - Occupational Stress [...] with tobramycin drops without improvement. She saw slip tender Dr. Daisy Ivy on 10/23/23. [facility] [...] has not been able to see her saw operator oncologist recently because every time she went to an appointment she was sent to the emergency room due to elevated blood pressure. In August 2023, she was sent from an infusion center to [place] emergency department where shewas found to have oxygen saturations of 78%. CT imaging showed worsening bilateral ground glass opacities. A CT scan was negative for pulmonary embolism. She was transferred to [facility] for additional pulmonology care. On 09/12/23 [...] times in the past three months: [place] (09/02/23 for hypercalcemiaand acute kidney injury - had CT chest/abdomen/pelvis to assess for malignancy), [facility] again. Each time she saw [...] to monitor. (Her oncologist is at [facility].) MEDICATIONS Prednisolone every hour while awake [...] vs subhyaloid opacities. No T sign noted. [facility]. PLAN There is slow involution of the [...] possible ciliochoroidal effusion. [facility] PLAN Continue the current eye drops and [...] CDT Ancillary Procedure Department of Ophthalmology in [place], [place] [address] [place] [address] Prakash Graham M.D. [address] [place] [phone] 08/27/2024 1:30 PM CDT Ancillary Procedure Department of Ophthalmology in [place], [place] [address] [place] [phone] Kenya Garza M.D. [address] [place] [phone] 08/27/2024 1:45 PM CDT Office Visit Department of Ophthalmology in [place], [place] [address] [place] [phone] Kenya Garza M.D. [address] [place] [phone] 08/27/2024 2:30 PM CDT Office Visit Department of Ophthalmology in [place], [place] [address] [place] [phone] Prakash Graham M.D. 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
--- OUTSIDE RECORDS SUMMARY | 2024-07-24 02:39 | XMS_ITS | Encounter Summary ---
Author Organization [facility] Address [address] [place] [address] Care Team Providers Care Brinell Tester Name Role Phone Elsewhere, Pcp Primary Care Provider Unavailabl e Reason for Visit * Reason Onset Date Comments Surgery today 04/2704/27/2024 Encounter Details Date Type Department Care Team (Latest Contact Info) Description 04/27/2024 Clinical Communication Department of Ophthalmology in [place], [place] [address] [place] [phone] Prakash Graham M.D. [address] [place] [phone] Surgery today 04/27 Social History Tobacco Use Types Packs/Day Years Used Date Smoking Tobacco: Former Cigarettes 0.7 70.4 0 03/28/1975 - 01/09/2022 Smokeless Tobacco: Never Comments:On again off again Alcohol Use Standard Drinks/Week Comments Yes 5 (1 standard drink = 0.6 oz pur e alcohol) occasional [facility] Utilities Answer Date Recorded In the [...] How often do you attend uatsdin or anabaptist serv ices? Never 06/27/2020 Do [...] [facility] of Occupat ional [facility] [...] CDT Ancillary Procedure Department of Ophthalmology in [place], [place] [address] [place] [phone] Prakash Graham M.D. [address] [place] [phone] 08/27/2024 1:30 PM CDT Ancillary Procedure Department of Ophthalmology in [place], [place] [address] [place] [phone] Kenya Garza M.D. [address] [place] [phone] 08/27/2024 1:45 PM CDT Office Visit Department of Ophthalmology in [place], [place] [address] [place] [phone] Kenya Garza M.D. [address] [place] [phone] 08/27/2024 2:30 PM CDT Office Visit Department of Ophthalmology in [place], [place] [address] [place] [phone] Prakash Graham M.D. [address] [place] [phone] documented as of this encounter Visit Diagnoses Not on filedocumented in this encounter Care Teams Brinell Tester Relationship Specialty Start Date End Date Elsewhere, Pcp PCP - General Internal Medicine 05/29/19 documented as of this encounter
--- OUTSIDE RECORDS SUMMARY | 2024-07-24 02:39 | XMS_ITS | Encounter Summary ---
Author Organization [facility] Address [address] [place] [address] Care Team Providers Care Optimization Analyst Name Role Phone Elsewhere, Pcp Primary Care Provider Unavailabl e Encounter Details Date Type Department Care Team (Latest Contact Info) Description 04/16/2024 1:00 PM CDT Ancillary Procedure Department of Ophthalmology in [place], [place] [address] [place] [address] Kenya Garza M.D. [address] [place] [address] Necrosis Retinal Acute Right Social History Tobacco Use Types Packs/Day Years Used Date Smoking Tobacco: Former Cigarettes 0.7 70.4 0 03/28/1975 - 01/09/2022 Smokeless Tobacco: Never Comments:On again off again Alcohol Use Standard Drinks/Week Comments Yes 5 (1 standard drink = 0.6 oz pur e alcohol) occasional [facility] Utilities Answer Date Recorded In the past 12 months has [employer], gas, oil, or water [employer] threatened to shut off services in your home? No 11/05/2023 Social Connection and Isolation Panel [NHANES] A nswer Date Recorded In a typical week, how many times do you talk on the phone with family, friends, or neighbors? Once a week 06/27/2020 How often do you get together with friends or re latives? Never 06/27/2020 How often do you attend yarsanism or amish serv ices? Never 06/27/2020 Do [...] Somewhat hard 06/27/2020 [facility] of Occupat ional Health - Occupational Stress [...] CDT Ancillary Procedure Department of Ophthalmology in [place], [place] [address] [place] [phone] Prakash Graham M.D. [address] [place] [phone] 08/27/2024 1:30 PM CDT Ancillary Procedure Department of Ophthalmology in [place], [place] [address] [place] [phone] Kenya Garza M.D. [address] [place] [phone] 08/27/2024 1:45 PM CDT Office Visit Department of Ophthalmology in [place], [place] [address] [place] [phone] Kenya Garza M.D. [address] [place] [phone] 08/27/2024 2:30 PM CDT Office Visit Department of Ophthalmology in [place], [place] [address] [place] [phone] Prakash Graham M.D. [address] [place] [phone] documented as of this encounter Procedures Procedure [...] ciliary body detachment noted, possible ciliochoroidal effusion. [facility] Kenya Garza M.D. OPHTH ULTRASOUND OPHTHALMOLGY NON-IMAGING ORDERS documented in this encounter Visit Diagnoses Diagnosis Necrosis Retinal Acute Right documented in this encounter Care Teams Optimization Analyst Relationship Specialty Start Date End Date Elsewhere, Pcp PCP - General Internal Medicine 05/29/19 documented as of this encounter
--- OUTSIDE RECORDS SUMMARY | 2024-07-24 02:39 | XMS_ITS | Clinical Summary ---
Author Organization [facility] Address [place], [place] [address] Care Team Providers Care Public Events Facilities Rental Manager Name Role Phone Easton Mccormick MD Unavailable [phone] Katerine Bashir MD Primary Care Provider [...] unspecified vessel or lesion type, unspecified whether muscogee or transplanted heart Take 1 tablet by [...] VT (NSTEMI) 11/19/2015 Melanoma in situ 06/15/2014 Overview (06/15/2014): Right lower anterior leg and upper right eyelid. 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 Morbid obesity 04/10/2010 Diabetes mellitus, type 2 HTN (hypertension) CAD (coronary artery disease) Hyperlipidemia LDL goal <70 Encounters Date Type Department Care Team Description 05/21/2024 8:30 AM CDT Office Visit [facility] [address] [place] [address] Shashank Smith MD CV General Cardiology Est 04/25/2024 12:30 PM CDT Ancillary Procedure [facility] [address] [place] [address] from Last 3 Months Immunizations Name Administration [...] 65+ 2022 COVID-19 vaccine series ( season) 2024 07/18/2021, 02/14/2021, 01/24/2021 Influenza for age 65+ [...] SCREEN FFDM (IA) Routine 10/04/2016 9:00 AM AUTOMOTIVE METALSMITH Visit for screening mammogram LIPID PANEL W REFLEX MEASURED LDL Routine 09/11/2016 9:26 AM AUTOMOTIVE METALSMITH Hyperlipidemia, unspecified XR DXA BONE DENSITY 2 [...] CDT ECHOCARDIOGRAM BREEZY TREJO ? Accession#: ?? [id number] : ?1955 68 years Study Date: ?? 04/25/2024 12:16:52 PM Gender: F ?BP: ? 114/84 mmHg Height: 168.00 cm ?BSA: ?2.00 m? ? ? Weight: 90.00 kg ? Tech: ? MRC ? Referring MD: BECKI ARANA Site: ? [facility] Reading Location: [facility] Patient Location: Inpatient. Procedure: 2D, Color Doppler [...] . This study was interpreted by an [facility] accredited facility. CC: HIM (med records) [facility], Med/Surg - IP [facility]. ??Final ?? Procedure Note Tiara Huntley MD - 04/25/2024 ECHOCARDIOGRAM BREEZY TREJO : 1955 68 years Study Date: 04/25/2024 12:16:52 PM Gender: F BP: 114/84 mmHg Height: 168.00 cm BSA: 2.00 m? ? ? Weight: 90.00 kg Tech: [facility] Referring MD: BECKI ARANA Site: [facility] Reading Location: [facility] Patient Location: Inpatient. Procedure: 2D, Color Doppler [...] . This study was interpreted by an [facility] accredited facility. CC: HIM (med records) [facility], Med/Surg - IP [facility]. Final Becki Arana MD ECHO ORD * XR MAMMO BILAT SCREEN FFDM (10/04/2016 9:00 AM AUTOMOTIVE METALSMITH) Anatomical Region Laterality Modality BREASTS, Breast Left, Breast Right Bilateral Mammography Narrative 10/04/2016 1:52 PM AUTOMOTIVE METALSMITH BILATERAL DIGITAL SCREENING MAMMOGRAM WITH COMPUTER-AIDED DETECTION [...] Ltd. [email or web address] ?? / Bailey Collins APPLICATION PROJECT LEADER MAMMO * (ABNORMAL) LIPID PANEL W REFLEX MEASURED LDL (09/11/2016 9:26 AM AUTOMOTIVE METALSMITH) CHOLESTEROL,TOTAL 159 100 - 199 mg/dL 09/11/2016 10:03 AM AUTOMOTIVE METALSMITH [facility] TRIGLYCERIDES 183(H) <150 mg/dL 09/11/2016 10:03 AM AUTOMOTIVE METALSMITH [facility] HDL CHOLESTEROL 36(L) >40 mg/dL 6 10:03 AM AUTOMOTIVE METALSMITH [facility] NON-HDL CHOLESTEROL 123 <145 mg/dl 09/11/2016 10:03 AM AUTOMOTIVE METALSMITH [facility] CHOL/HDL RATIO 4.42 <4.50 09/11/2016 10:03 AM AUTOMOTIVE METALSMITH [facility] LDL CHOLESTEROL 86 <=130 mg/dL 09/11/2016 10:03 AM AUTOMOTIVE METALSMITH [facility] PATIENT STATUS NOT GIVEN 09/11/2016 10:03 AM AUTOMOTIVE METALSMITH [facility] Blood BLOOD SPECIMEN / Unknown Venipuncture / Unknown 09/11/2016 9:26 AM AUTOMOTIVE METALSMITH 09/11/2016 9:26 AM AUTOMOTIVE METALSMITH Bailey Collins NP CHEMISTRY [facility] [address] [place] [address], * XR DXA BONE DENSITY 2 SITES [...] Comments Code Status Discussion: Discussed Care Teams Public Events Facilities Rental Manager Relationship Specialty Start Date End Date Katerine Bashir MD [address] [place] [address] PCP - General Family Practice 12/27/20 Easton Mccormick MD [address] [place] [phone] Cardiovascular Disease 09/26/16
--- OUTSIDE RECORDS SUMMARY | 2024-07-24 02:39 | XMS_ITS | Encounter Summary ---
Author Organization [facility] Address [address] [place] [address] Care Team Providers Care Lei Seller Name Role Phone Elsewhere, Pcp Primary Care Provider Unavailabl e Reason for Visit * Reason Comments Med Refill Encounter Details Date Type Department Care Team (Late st Contact Info) Description 04/10/2024 Refill Department of Ophthalmology in [place], [place] [address] [place] [phone] Kenya Garza M.D. [address] [place] [phone] Med Refill Social History Tobacco Use Types Packs/Day Years Used Date Smoking Tobacco: Light Smoker Cigarettes 0.5 44.4 Started: 02/26/1980 Smokeless Tobacco: Never Comments:On again off again Alcohol Use Standard Drinks/Week Comments Yes 0 (1 standard drink = 0.6 oz pur e alcohol) [facility] Utilities Answer Date Recorded In the past 12 months has [employer], gas, oil, or water [employer] threatened to shut off services in your home? No 11/05/2023 Social Connection and Isolation Panel [NHANES] A nswer Date Recorded In a typical week, how many times do you talk on the phone with family, friends, or neighbors? Once a week 06/27/2020 How often do you get together with friends or re latives? Never 06/27/2020 How often do you attend holiness or alevism serv ices? Never 06/27/2020 Do [...] heating? Somewhat hard 06/27/2020 [facility] of Occupat ional Health - Occupational Stress [...] CDT Ancillary Procedure Department of Ophthalmology in [place], [place] [address] [place] [phone] Prakash Graham M.D. [address] [place] [phone] 08/27/2024 1:30 PM CDT Ancillary Procedure Department of Ophthalmology in [place], [place] [address] [place] [phone] Kenya Garza M.D. [address] [place] [phone] 08/27/2024 1:45 PM CDT Office Visit Department of Ophthalmology in [place], [place] [address] [place] [phone] Kenya Garza M.D. [address] [place] [phone] 08/27/2024 2:30 PM CDT Office Visit Department of Ophthalmology in [place], [place] [address] [place] [address] Prakash Graham M.D. [address] [place] [phone] documented as of this encounter Visit Diagnoses Not on filedocumented in this encounter Care Teams Lei Seller Relationship Specialty Start Date End Date Elsewhere, Pcp PCP - General Internal Medicine 05/29/19 documented as of this encounter
--- OUTSIDE RECORDS SUMMARY | 2024-07-24 02:39 | XMS_ITS | Encounter Summary ---
Author Organization [facility] Address [address] [place] [address] Care Team Providers Care Dough Molder Hand Name Role Phone Elsewhere, Pcp Primary Care Provider Unavailabl e Reason for Referral * Outpatient (Routine) - Closed Specialty Diagnoses / Procedures Referred By Apolinar t Referred To Contact Ophthalmology Renaldo Hawk M.D. [address] [place] [phone] Prakash Graham M.D. [address] [place] [phone] Referral ID Status Reason Start Date Expiration Date Visits Re quested Visits Authorized [id number] Closed 05/17/2024 11/16/2025 1 1 Scheduling Instructions VTD both eyes Can use urgent slot Encounter Details Date Type Department Care Team (Latest Contact Info) Description 05/07/2024 2:00 PM CDT Office Visit Department of Ophthalmology in [place], [place] [address] [place] [phone] Renaldo Hawk M.D. [address] [place] [phone] Necrosis Retinal Acute Right (Primary Dx); Proliferative Vitreoretinopathy Right; Panuveitis Right; Primary Hypotony Right Eye; Posterior Reversible Encephalopathy Syndrome Social History Tobacco Use Types Packs/Day Years Used Date Smoking Tobacco: Former Cigarettes 0.7 70.4 0 03/28/1975 - 01/09/2022 Smokeless Tobacco: Never Comments:On again off again Alcohol Use Standard Drinks/Week Comments Yes 5 (1 standard drink = 0.6 oz pur e alcohol) occasional [facility] Utilities Answer Date Recorded In the past [...] Never 06/27/2020 How often do you attend yazidi or restorationism serv ices? Never 06/27/2020 Do you belong to any clubs o r organizations such as yazidi groups, unions, fraternal or athletic groups, or [...] medical care, and heating? Somewhat hard 06/27/2020 [facility] of Occupat ional Health - Occupational Stress [...] your living situation today? I have a [facility] place to live 11/05/2023 Education Answer [...] CDT Ancillary Procedure Department of Ophthalmology in [place], [place] [address] [place] [phone] Prakash Graham M.D. [address] [place] [phone] 08/27/2024 1:30 PM CDT Ancillary Procedure Department of Ophthalmology in [place], [place] [address] [place] [phone] Kenya Garza M.D. [address] [place] [phone] 08/27/2024 1:45 PM CDT Office Visit Department of Ophthalmology in [place], [place] [address] [place] [phone] Kenya Garza M.D. [address] [place] [phone] 08/27/2024 2:30 PM CDT Office Visit Department of Ophthalmology in [place], [place] [address] [place] [phone] Prakash Graham M.D. 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
== END 2024-07-20 09:27 | disposition home or self-care (01) ==
LOC: NFLDREF 07-24 02:36
PROVIDERS: PCP Family Medicine; Referring Provider Family Medicine; Visit Provider Family Medicine
DX: I10 Essential (primary) hypertension (principal); E78.5 Hyperlipidemia, unspecified; E11.29 Type 2 diabetes mellitus with other diabetic kidney complication; R80.9 Proteinuria, unspecified; E11.9 Type 2 diabetes mellitus without complications
CPT/HCPCS: 82043; 82570

== ENCOUNTER 2024-08-31 08:00 | Outpatient (RCR) | payer MEDICARE, SELFPAY ==
--- NOTE | 2024-03-30 10:32 | URNOTE ---
[place] ([id number]) has been approved 03/28/2024-03/27/2025. Auth #[id number]
[2024-04-07 08:03] VITALS: BP 174/90; PULSE 52; RESP 16; TEMP 35.7; O2SAT 98
[2024-04-07] MEDS: diphenhydrAMINE 25 MG CAPSULE 50 MG PO (08:36)
[2024-04-07] MEDS: ACETAMINOPHEN 325 MG TABLET 650 MG PO (08:44)
[2024-04-07] MEDS: METHYLPREDNISOLONE SOD SUCC 40 MG/ML IVP (08:50)
[2024-04-07 09:06] VITALS: BP 134/71; PULSE 52
[2024-04-17 08:53] LABS: Basophils Percent Auto 0.4 % (0.0-3.0); Eosinophils Percent Auto 1.2 % (0.0-7.0); Hematocrit 45.2 % (33.0-51.0); Hemoglobin* 14.4 gm/dL (12.0-16.0); Immature Granulocytes Pct Auto 0.4 %; Lymphocytes Percent Auto 67.9 % (20-44); Mean Corpuscular HGB Conc 32 gm/dL (32-36); Mean Corpuscular Hemoglobin 33 pg (26-34); Mean Corpuscular Volume 104 fL (80-100); Monocytes Percent Auto 5.9 % (0.0-11.0); Neutrophils Percent Auto 24.2 % (42.0-72.0); Platelet Count* 110 K/uL (140-440); RDW Coefficient of Variation % 14.7 % (11.5-15.5); Red Blood Count 4.34 m/uL (4.00-5.20); White Blood Count* 12.13 K/uL (4.50-11.00)
[2024-04-17 09:01] LABS: Albumin* 4.4 g/dL (3.3-5.0); Chloride* 103 mmol/L (96-114); Potassium* 4.6 mmol/L (3.6-5.1); Sodium* 139 mmol/L (135-149)
[2024-04-17 09:03] LABS: Anion Gap 4 mEq/L (7-15); Carbon Dioxide* 32 mmol/L (20-32); Creatinine* 0.8 mg/dL (0.5-1.5); Estimated Glomerular Filt Rate 81 ml/min
[2024-04-17 09:04] LABS: Alanine Aminotransferase* 59 U/L (4-35); Alkaline Phosphatase* 58 U/L (40-150); Aspartate Amino Transferase* 61 U/L (12-35); Blood Urea Nitrogen* 22 mg/dL (7-30); Calcium* 9.8 mg/dL (8.4-10.6); Glucose* 164 mg/dL (60-115); Total Protein* 7.5 g/dL (6.0-8.3)
[2024-04-17 09:10] LABS: Slide Review Reflex Yes
[2024-04-17 09:46] LABS: Slide Review Acceptable Review (Acceptable)
[2024-04-19 10:08] LABS: Immunoglobulin A 75 mg/dL (68-408); Immunoglobulin G 1254 mg/dL (768-1632); Immunoglobulin M 79 mg/dL (35-263)
[2024-04-22 09:03] LABS: Lactate Dehydrogenase* 303 U/L (120-246)
[2024-05-28 15:13] LABS: Basophils Percent Auto 0.2 % (0.0-3.0); Eosinophils Percent Auto 0.5 % (0.0-7.0); Hematocrit 44.7 % (33.0-51.0); Hemoglobin* 14.5 gm/dL (12.0-16.0); Immature Granulocytes Pct Auto 1.4 %; Lymphocytes Percent Auto 63.7 % (20-44); Mean Corpuscular HGB Conc 32 gm/dL (32-36); Mean Corpuscular Hemoglobin 33 pg (26-34); Mean Corpuscular Volume 101 fL (80-100); Monocytes Percent Auto 9.9 % (0.0-11.0); Neutrophils Percent Auto 24.3 % (42.0-72.0); Platelet Count* 232 K/uL (140-440); RDW Coefficient of Variation % 14.6 % (11.5-15.5); Red Blood Count 4.44 m/uL (4.00-5.20); White Blood Count* 24.34 K/uL (4.50-11.00)
[2024-05-28 15:17] LABS: Slide Review Reflex No
[2024-05-28 15:24] LABS: Albumin* 4.7 g/dL (3.3-5.0); Chloride* 100 mmol/L (96-114); Sodium* 133 mmol/L (135-149)
[2024-05-28 15:25] LABS: Potassium* 4.6 mmol/L (3.6-5.1)
[2024-05-28 15:27] LABS: Alanine Aminotransferase* 25 U/L (4-35); Alkaline Phosphatase* 73 U/L (40-150); Anion Gap 9 mEq/L (7-15); Aspartate Amino Transferase* 26 U/L (12-35); Bilirubin Total* 1.1 mg/dL (0.1-1.5); Blood Urea Nitrogen* 26 mg/dL (7-30); Carbon Dioxide* 24 mmol/L (20-32); Creatinine* 0.7 mg/dL (0.5-1.5); Estimated Glomerular Filt Rate 95 ml/min; Glucose* 268 mg/dL (60-115); Lactate Dehydrogenase* 266 U/L (120-246); Total Protein* 7.1 g/dL (6.0-8.3)
[2024-05-28 15:28] LABS: Calcium* 10.1 mg/dL (8.4-10.6)
[2024-05-30 16:02] LABS: Immunoglobulin A 67 mg/dL (68-408); Immunoglobulin G 498 mg/dL (768-1632); Immunoglobulin M 56 mg/dL (35-263)
[2024-06-11 07:55] VITALS: BP 156/76; PULSE 60; RESP 16; TEMP 35.7; O2SAT 97
[2024-06-11] MEDS: diphenhydrAMINE 25 MG CAPSULE 50 MG PO ×2 (08:05→08:59)
[2024-06-11] MEDS: ACETAMINOPHEN 325 MG TABLET 650 MG PO ×2 (08:05→08:59)
[2024-06-11 08:48] LABS: Basophils Percent Auto 0.3 % (0.0-3.0); Eosinophils Percent Auto 0.4 % (0.0-7.0); Hematocrit 43.1 % (33.0-51.0); Lymphocytes Percent Auto 59.8 % (20-44); Mean Corpuscular HGB Conc 33 gm/dL (32-36); Mean Corpuscular Hemoglobin 33 pg (26-34); Mean Corpuscular Volume 101 fL (80-100); Monocytes Percent Auto 3.6 % (0.0-11.0); Neutrophils Percent Auto 33.9 % (42.0-72.0); Platelet Count* 258 K/uL (140-440); RDW Coefficient of Variation % 14.5 % (11.5-15.5); Red Blood Count 4.27 m/uL (4.00-5.20); White Blood Count* 18.45 K/uL (4.50-11.00)
--- NOTE | 2024-06-11 08:49 | ONC.NURNOTE ---
CMP and CBC before treatment. 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 states finished antibiotics. had surg procedure 05/28 with labs. is tapering po prednisone. is using steroid eye gtts. pts eye is red and clear drainage. pt whipping her eye often. states sore when blinking. otherwise no discomfort. She is a bit upset about being placed in contact isolation. Neelima RN BRANNER MACHINE TENDER did talk with pt. Per Neelima. ok to treat today if wbc not elevated from 05/28.
[2024-06-11 08:54] LABS: Slide Review Reflex Yes
[2024-06-11 08:56] LABS: Slide Review Acceptable Review (Acceptable)
[2024-06-11 09:04] LABS: Albumin* 4.3 g/dL (3.3-5.0); Chloride* 96 mmol/L (96-114)
[2024-06-11 09:05] LABS: Potassium* 4.4 mmol/L (3.6-5.1); Sodium* 132 mmol/L (135-149)
[2024-06-11 09:07] LABS: Anion Gap 3 mEq/L (7-15); Aspartate Amino Transferase* 21 U/L (12-35); Carbon Dioxide* 33 mmol/L (20-32); Creatinine* 0.7 mg/dL (0.5-1.5); Estimated Glomerular Filt Rate 95 ml/min; Total Protein* 6.5 g/dL (6.0-8.3)
[2024-06-11 09:08] LABS: Alanine Aminotransferase* 23 U/L (4-35); Alkaline Phosphatase* 80 U/L (40-150); Blood Urea Nitrogen* 21 mg/dL (7-30); Calcium* 9.9 mg/dL (8.4-10.6); Glucose* 305 mg/dL (60-115)
[2024-06-11] MEDS: METHYLPREDNISOLONE SOD SUCC 40 MG/ML IVP (09:35)
[2024-06-11] MEDS: 5 % DEXTROSE 250 ML IV (14:13)
[2024-06-11] MEDS: SODIUM CHLORIDE 0.9 % (FLUSH) 10 ML SYRINGE IVF (14:13)
[2024-07-17 08:15] LABS: Basophils Percent Auto 0.3 % (0.0-3.0); Eosinophils Percent Auto 0.8 % (0.0-7.0); Hematocrit 43.3 % (33.0-51.0); Hemoglobin* 14.2 gm/dL (12.0-16.0); Immature Granulocytes Pct Auto 0.5 %; Lymphocytes Percent Auto 71.1 % (20-44); Mean Corpuscular HGB Conc 33 gm/dL (32-36); Mean Corpuscular Hemoglobin 33 pg (26-34); Mean Corpuscular Volume 101 fL (80-100); Monocytes Percent Auto 9.5 % (0.0-11.0); Neutrophils Percent Auto 17.8 % (42.0-72.0); Platelet Count* 212 K/uL (140-440); RDW Coefficient of Variation % 14.5 % (11.5-15.5); Red Blood Count 4.27 m/uL (4.00-5.20); White Blood Count* 18.81 K/uL (4.50-11.00)
[2024-07-17 08:21] LABS: Slide Review Reflex Yes
[2024-07-17 08:28] LABS: Albumin* 4.3 g/dL (3.3-5.0); Chloride* 98 mmol/L (96-114); Sodium* 136 mmol/L (135-149)
[2024-07-17 08:29] LABS: Potassium* 3.6 mmol/L (3.6-5.1)
[2024-07-17 08:31] LABS: Alanine Aminotransferase* 22 U/L (4-35); Alkaline Phosphatase* 67 U/L (40-150); Anion Gap 10 mEq/L (7-15); Aspartate Amino Transferase* 29 U/L (12-35); Bilirubin Total* 1.4 mg/dL (0.1-1.5); Blood Urea Nitrogen* 17 mg/dL (7-30); Carbon Dioxide* 28 mmol/L (20-32); Creatinine* 0.7 mg/dL (0.5-1.5); Estimated Glomerular Filt Rate 95 ml/min; Glucose* 186 mg/dL (60-115); Total Protein* 6.5 g/dL (6.0-8.3)
[2024-07-17 08:32] LABS: Calcium* 9.9 mg/dL (8.4-10.6)
[2024-07-17 08:51] LABS: Slide Review Acceptable Review (Acceptable)
--- NOTE | 2024-07-17 08:54 | ONC.NURNOTE ---
Pt here for dose 2/3 IVIG. Per orders, pt to have IG panels before each infusion, with CBC, CMP. Last IGG 498 05/28 with pt receiving 90 gm IVIG 06/11. Previously IGG 423 prior to 90 gm IVIG on 04/07; then IGG lever 1254 on 04/17. Reviewed with Neelima Patino APRN to clarify if IGG result needed prior to IGG infusion. PA is for Hypogammaglobulinemia. With pt's recent variability in IGG levels, decided to wait for IGG level to confirm hypogammaglobulinemia prior to giving IVIG infusion. Lab is a send out and takes ~ 5 days to result. 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 She also has frequent appts at [facility], contributing to work stress and financial toxicity. Nsg to call pt with IGG result and reschedule IVIG infusion. Pt to review her work schedule. If infusion is more than ~ 3 wks after labs, IGG level may need to be repeated; review with Dr. Pastrana at that time.
[2024-07-18 22:59] LABS: Immunoglobulin A 70 mg/dL (68-408); Immunoglobulin G 617 mg/dL (768-1632); Immunoglobulin M 49 mg/dL (35-263)
--- NOTE | 2024-07-23 09:30 | ONC.NURNOTE ---
Family Caseworker called and spoke with patient regarding plan and due to her schedule she readjusted labs and MD appointment. Explained to patient that labs need to be done prior to infusion or MD will clarify if infusion is automatic no matter what labs look like but will talk at appointment moving forward.
[2024-08-17 09:22] LABS: Basophils Percent Auto 0.4 % (0.0-3.0); Eosinophils Percent Auto 0.7 % (0.0-7.0); Hematocrit 46.2 % (33.0-51.0); Hemoglobin* 14.9 gm/dL (12.0-16.0); Immature Granulocytes Pct Auto 0.7 %; Lymphocytes Percent Auto 46.3 % (20-44); Mean Corpuscular HGB Conc 32 gm/dL (32-36); Mean Corpuscular Hemoglobin 32 pg (26-34); Mean Corpuscular Volume 100 fL (80-100); Monocytes Percent Auto 11.5 % (0.0-11.0); Neutrophils Percent Auto 40.4 % (42.0-72.0); Platelet Count* 304 K/uL (140-440); RDW Coefficient of Variation % 13.4 % (11.5-15.5); Red Blood Count 4.62 m/uL (4.00-5.20)
[2024-08-17 09:35] LABS: Slide Review Reflex No; White Blood Count* 25.84 K/uL (4.50-11.00)
[2024-08-17 09:52] LABS: Albumin* 4.7 g/dL (3.3-5.0); Chloride* 98 mmol/L (96-114); Potassium* 4.3 mmol/L (3.6-5.1); Sodium* 134 mmol/L (135-149)
[2024-08-17 09:54] LABS: Bilirubin Total* 1.2 mg/dL (0.1-1.5); Estimated Glomerular Filt Rate 62 ml/min
[2024-08-17 09:55] LABS: Alanine Aminotransferase* 22 U/L (4-35); Alkaline Phosphatase* 79 U/L (40-150); Anion Gap 12 mEq/L (7-15); Aspartate Amino Transferase* 23 U/L (12-35); Blood Urea Nitrogen* 27 mg/dL (7-30); Calcium* 9.4 mg/dL (8.4-10.6); Carbon Dioxide* 24 mmol/L (20-32); Glucose* 234 mg/dL (60-115); Total Protein* 7.1 g/dL (6.0-8.3)
[2024-08-19 13:18] LABS: Immunoglobulin A 69 mg/dL (68-408); Immunoglobulin G 447 mg/dL (768-1632); Immunoglobulin M 37 mg/dL (35-263)
[2024-08-31 08:07] VITALS: BP 155/73; PULSE 66; RESP 16; TEMP 36.2; O2SAT 95
[2024-08-31] MEDS: ACETAMINOPHEN 325 MG TABLET 650 MG PO (08:32)
[2024-08-31] MEDS: diphenhydrAMINE 25 MG CAPSULE 50 MG PO (08:32)
[2024-08-31] MEDS: 5 % DEXTROSE 250 ML IV (08:32)
[2024-08-31] MEDS: SODIUM CHLORIDE 0.9 % (FLUSH) 10 ML SYRINGE IVF (08:33)
[2024-08-31] MEDS: METHYLPREDNISOLONE SOD SUCC 40 MG/ML IVP (08:46)
--- NOTE | 2024-08-31 10:12 | ONC.NURNOTE ---
Patient stated she may be changing insurance companies at the end of the year. Patient has an appointment for IVIG scheduled in October. UR notified. Asked patient to keep us informed as we will need to do another prior authorization if she does change insurance companies.
--- NOTE | 2024-09-17 14:38 | ONC.NURNOTE ---
Patient is scheduled for her IVIG too early. Left message for patient to call back and reschedule. Earliest appointment date would be 09/28/2024.
== END 2024-09-20 23:59 | disposition home or self-care (01) ==
LOC: CCIC 08:00
PROVIDERS: PCP Family Medicine; Referring Provider Family Medicine; Visit Provider Internal Medicine Hematology & Oncology
DX: C83.00 Small cell B-cell lymphoma, unspecified site (principal); D80.1 Nonfamilial hypogammaglobulinemia
CPT/HCPCS: 36415; 80053; 82784; 83615; 85025; 96365; 96366; 96375; 96376; 99214; 99215; G0463; A9270; J1459; J2919; J7050

== ENCOUNTER 2024-11-12 09:24 | Outpatient (CLI) | payer MEDICARE, SELFPAY | END 2024-11-12 09:25 | disposition home or self-care (01) | LOC: NFLDREF 11-16 03:31 | PROVIDERS: PCP Family Medicine; Referring Provider Family Medicine; Visit Provider Family Medicine | DX: I10 Essential (primary) hypertension (principal); E11.9 Type 2 diabetes mellitus without complications; Z79.84 Long term (current) use of oral hypoglycemic drugs | CPT/HCPCS: 80053; 82043; 82570; 82784; 83615 ==

== ENCOUNTER 2025-02-04 09:25 | Outpatient (CLI) | payer MEDICARE, SELFPAY ==
--- NOTE | 2025-02-04 10:00 | CRLHL7_ITS ---
For Patients: As a result of the Century Cures Act, medical imaging exams and procedure reports are released immediately into your electronic medical record. You may view this report before your referring provider. If you have questions, please contact your health care provider. INDICATION: Oncologic follow-up B-cell lymphoma TECHNIQUE: CT scan chest abdomen pelvis. IV contrast. Isovue 98 cc. COMPARISON: Chest abdomen pelvis CT 06/02/2024 FINDINGS: Chest: Adenopathy: Increased axillary and mediastinal. The largest axillary node is 2.1 cm short axis image 27. The largest subcarinal mediastinal node is 2.6 centimeters image 49. Lungs and pleura: No consolidation or pleural effusion. Miscellaneous: Postoperative changes of CABG. Abdomen: Adenopathy: Bulky adenopathy retroperitoneal upper abdominal and portal caval. The largest periportal node is now 3.2 centimeters previously 2.5 centimeters image 161. Splenomegaly. Axial measurement: 10 x 11.7 cm previous increased size. 9 x 9.5 cm. Liver adrenal glands pancreas and kidneys show no change. Extensive calcification of the aorta normal caliber. Normal caliber GI tract. Scattered numerous nodes in the mesentery. Pelvis: Adenopathy: Iliac chain pelvic sidewall and inguinal. Largest node right sidewall 2.7 centimeters previous 1.6 centimeters. Current image 231. Miscellaneous: Urinary bladder and uterus unremarkable. No free fluid. Skeletal: No new suspicious lesions. IMPRESSION: 1. Significantly increased adenopathy in the chest abdomen and pelvis. 2. Increased splenomegaly. 3. Air Gun Operator measurements with comparisons are given above. Please note that all CT scans at this facility use dose modulation, iterative reconstruction, and/or weight-based dosing when appropriate to reduce radiation dose to as low as reasonably achievable. Dictated by Bobby Kirk MD @ 02/04/2025 2:53:20 PM (Electronically Signed)
--- NOTE | 2025-02-04 10:30 | CRLHL7_ITS ---
For Patients: As a result of the Century Cures Act, medical imaging exams and procedure reports are released immediately into your electronic medical record. You may view this report before your referring provider. If you have questions, please contact your health care provider. Indication: Small B-cell lymphoma. Technique: Contrast-enhanced CT of the neck with multiplanar reconstructions. 98 cc Isovue 370 iodinated intravenous contrast was utilized. Comparison: None available. Findings: No suspicious mucosal based lesion. Diffuse pathologic enlargement of the cervical lymph nodes. For reference, an enlarged right level IIa node measures up to 2.1 cm (series 2, image 26) and left level IIa node measures up to 3.3 cm (series 2, image 34). Multiple enlarged bilateral intraparotid lymph nodes. Normal submandibular glands. Unremarkable thyroid. The lung apices are clear. There is atherosclerotic calcification at the carotid bifurcations. The imaged intracranial structures are unremarkable. Polypoid mucosal thickening is noted within the maxillary alveolar recesses. Impression: 1. No soft tissue mass or evidence of infection. 2. Diffuse cervical lymph node enlargement in keeping with history of lymphoma. Please note that all CT scans at this facility use dose modulation, iterative reconstruction, and/or weight-based dosing when appropriate to reduce radiation dose to as low as reasonably achievable. Dictated by Steven Martinez MD @ 02/05/2025 2:04:46 PM (Electronically Signed)
== END 2025-02-04 09:26 | disposition home or self-care (01) ==
LOC: CT 09:27
PROVIDERS: PCP Family Medicine; Visit Provider Internal Medicine Hematology & Oncology
DX: C83.00 Small cell B-cell lymphoma, unspecified site (principal); R59.0 Localized enlarged lymph nodes; R16.1 Splenomegaly, not elsewhere classified
CPT/HCPCS: 70491; 71260; 74177; Q9967

== ENCOUNTER 2025-02-10 10:00 | Outpatient (RCR) | payer MEDICARE, SELFPAY ==
--- NOTE | 2024-09-21 13:55 | URNOTE ---
South ([id number]) has been approved 03/28/2024-03/27/2025. Auth #[id number]. Dose to be administered earlier then monthly on 09/25/24. Called 09/21/24 [facility] Rep. Octavia Perez (Ref# [id number]) PA is not restricted on frequency, pt has an approval from 03/28/24 to 03/27/25 for up to 12 doses (2160units total). Pt has received 3 doses since 03/28/24 per [facility] on 09/21/24.
[2024-09-25] MEDS: diphenhydrAMINE 25 MG CAPSULE 50 MG PO (08:10)
[2024-09-25 08:11] VITALS: TEMP 36.3
[2024-09-25] MEDS: ACETAMINOPHEN 325 MG TABLET 650 MG PO (08:11)
[2024-09-25 08:27] VITALS: BP 135/66; PULSE 80; RESP 16; TEMP 36.3; O2SAT 99
[2024-09-25] MEDS: 5 % DEXTROSE 250 ML IV (08:38)
[2024-09-25] MEDS: METHYLPREDNISOLONE SOD SUCC 40 MG/ML IVP (08:38)
[2024-10-26] MEDS: ACETAMINOPHEN 325 MG TABLET 650 MG PO (08:30)
[2024-10-26] MEDS: diphenhydrAMINE 25 MG CAPSULE 50 MG PO (08:30)
[2024-10-26] MEDS: METHYLPREDNISOLONE SOD SUCC 40 MG/ML IVP (08:47)
[2024-10-26 08:56] VITALS: BP 126/61; PULSE 68; RESP 16; TEMP 36.1; O2SAT 96
[2024-10-26] MEDS: 5 % DEXTROSE 250 ML IV (09:26)
[2024-12-24 09:30] LABS: Basophils Percent Auto 0.3 % (0.0-3.0); Eosinophils Percent Auto 0.9 % (0.0-7.0); Hematocrit 44.8 % (33.0-51.0); Immature Granulocytes Pct Auto 1.1 %; Lymphocytes Percent Auto 56.9 % (20-44); Mean Corpuscular HGB Conc 31 gm/dL (32-36); Mean Corpuscular Hemoglobin 28 pg (26-34); Mean Corpuscular Volume 91 fL (80-100); Monocytes Percent Auto 9.5 % (0.0-11.0); Neutrophils Percent Auto 31.3 % (42.0-72.0); Platelet Count* 255 K/uL (140-440); RDW Coefficient of Variation % 14.6 % (11.5-15.5); Red Blood Count 4.94 m/uL (4.00-5.20); White Blood Count* 23.57 K/uL (4.50-11.00)
[2024-12-24 09:46] LABS: Albumin* 4.5 g/dL (3.3-5.0); Chloride* 103 mmol/L (96-114); Potassium* 4.2 mmol/L (3.6-5.1); Sodium* 138 mmol/L (135-149)
[2024-12-24 09:48] LABS: Blood Urea Nitrogen* 18 mg/dL (7-30); Creatinine* 0.6 mg/dL (0.5-1.5); Est. Creatinine Clearance* 49.12; Estimated Glomerular Filt Rate 98 ml/min
[2024-12-24 09:49] LABS: Alanine Aminotransferase* 20 U/L (4-35); Alkaline Phosphatase* 73 U/L (40-150); Anion Gap 10 mEq/L (7-15); Aspartate Amino Transferase* 25 U/L (12-35); Bilirubin Total* 1.2 mg/dL (0.1-1.5); Carbon Dioxide* 25 mmol/L (20-32); Glucose* 111 mg/dL (60-115); Lactate Dehydrogenase* 272 U/L (120-246); Total Protein* 6.7 g/dL (6.0-8.3)
[2024-12-24 10:13] LABS: Slide Review Reflex Yes
[2024-12-24 10:14] LABS: Slide Review Acceptable Review (Acceptable)
[2024-12-26 02:20] LABS: Immunoglobulin A 69 mg/dL (68-408); Immunoglobulin G 598 mg/dL (768-1632); Immunoglobulin M 51 mg/dL (35-263)
--- NOTE | 2024-12-28 10:36 | ONC.NURNOTE ---
Called pt and LM with IgG level. Pt is scheduled for IVIG on 01/08/2025. Confirmed that appt on the message as well.
[2025-01-08 08:06] VITALS: BP 136/80; PULSE 62; RESP 16; TEMP 35.7; O2SAT 97
[2025-01-08] MEDS: METHYLPREDNISOLONE SOD SUCC 40 MG/ML IVP (08:28)
[2025-01-08] MEDS: IMMUNE GLOBULIN IV (09:00)
[2025-01-08] MEDS: INTRAVIA CONTAINER IV (09:00)
--- NOTE | 2025-01-08 15:19 | ONC.NURNOTE ---
Pt here for IVIG. Pt brought in own tylenol and benadryl since pt states insurance doesn't cover it. Pt took 500mg PO tylenol instead of 650mg dose that is ordered. Pt refused to take 650mg PO dose here in [facility]. Pt tolerated IVIG infusion without difficulty.
[2025-02-04 10:01] LABS: Basophils Percent Auto 0.3 % (0.0-3.0); Eosinophils Percent Auto 0.7 % (0.0-7.0); Hematocrit 44.3 % (33.0-51.0); Hemoglobin* 14.2 gm/dL (12.0-16.0); Immature Granulocytes Pct Auto 0.8 %; Lymphocytes Percent Auto 68.1 % (20-44); Mean Corpuscular HGB Conc 32 gm/dL (32-36); Mean Corpuscular Hemoglobin 29 pg (26-34); Mean Corpuscular Volume 92 fL (80-100); Monocytes Percent Auto 11.9 % (0.0-11.0); Neutrophils Percent Auto 18.2 % (42.0-72.0); Platelet Count* 224 K/uL (140-440); RDW Coefficient of Variation % 14.9 % (11.5-15.5); Red Blood Count 4.83 m/uL (4.00-5.20)
[2025-02-04 10:20] LABS: Albumin* 4.7 g/dL (3.3-5.0); Chloride* 103 mmol/L (96-114); Potassium* 4.3 mmol/L (3.6-5.1); Sodium* 139 mmol/L (135-149)
[2025-02-04 10:22] LABS: Blood Urea Nitrogen* 16 mg/dL (7-30); Creatinine* 0.7 mg/dL (0.5-1.5); Est. Creatinine Clearance* 49.12; Estimated Glomerular Filt Rate 95 ml/min
[2025-02-04 10:23] LABS: Alanine Aminotransferase* 23 U/L (4-35); Alkaline Phosphatase* 75 U/L (40-150); Anion Gap 9 mEq/L (7-15); Aspartate Amino Transferase* 30 U/L (12-35); Bilirubin Total* 0.9 mg/dL (0.1-1.5); Calcium* 9.8 mg/dL (8.4-10.6); Carbon Dioxide* 27 mmol/L (20-32); Glucose* 122 mg/dL (60-115); Lactate Dehydrogenase* 320 U/L (120-246); Total Protein* 7.2 g/dL (6.0-8.3)
[2025-02-04 10:32] LABS: Slide Review Reflex Yes; White Blood Count* 31.81 K/uL (4.50-11.00)
[2025-02-04 10:35] LABS: Slide Review Acceptable Review (Acceptable)
[2025-02-05 14:30] LABS: Immunoglobulin A 72 mg/dL (68-408); Immunoglobulin G 889 mg/dL (768-1632); Immunoglobulin M 68 mg/dL (35-263)
== END 2025-03-24 23:59 | disposition home or self-care (01) ==
LOC: CCIC 10:00
PROVIDERS: PCP Family Medicine; Referring Provider Family Medicine; Visit Provider Internal Medicine Hematology & Oncology
DX: D80.1 Nonfamilial hypogammaglobulinemia (principal); C83.00 Small cell B-cell lymphoma, unspecified site; E11.9 Type 2 diabetes mellitus without complications; L12.0 Bullous pemphigoid; Z95.5 Presence of coronary angioplasty implant and graft
CPT/HCPCS: 36415; 80053; 82784; 83615; 85025; 96365; 96366; 96375; 96376; 99214; G0463; A9270; J1459; J2919; J7050

== ENCOUNTER 2025-03-06 02:12 | Emergency (ER) | payer MEDICARE, SELFPAY ==
--- OUTSIDE RECORDS SUMMARY | 2025-03-06 02:17 | XMS_ITS | Clinical Summary ---
Author Organization [facility] Address [address] [place] [address] Care Team Providers Care Behavior Management Specialist Name Role Phone Elsewhere, Pcp Primary Care Provider Unavailabl e Source Comments Patient records contain information from all sites at [facility]. For routine questions regarding patient records, call [phone] during business hours, M-F 8:00 AM - 5:00 PM Central Time. Record requests for emergency care only can be directed to [phone] at any time.[facility] Allergies Active Allergy Reactions Criticality Noted Date Comments Aller Xt-Ira [place] Itching,Rash,Bliste rs High 06/21/2020 GOLDENROD Methotrexate Other (see comments) High 03/24/2024 Interacted with other medications - and pt reports getting very sick from it. Hospitalized. Medications * This document contains information received from the source organization and may not represent a complete record from that organization. atorvastatin (LIPITOR) 40 mg tablet Take 40 [...] once daily. 1 each 11 0 Active lisinopriL (PRINIVIL,ZESTRI L) 20 mg tablet Take 20 mg by [...] eye(s) 3 (three) times a day. Active valACYclovir (Valtrex) 1000 mg tablet Take 1 tablet (1,000 mg total) by mouth daily. 30 tablet 11 4 Active predniSONE (Deltasone) 5 mg tablet Take 1 tablet (5 mg total) by mouth daily. Hold on file 30 tablet 3 4 Active prednisoLONE acetate (Pred Forte) 1 % ophthalmic suspension Administer 1 drop into the right eye 3 (three) times a day. On 09/27/24, stop Durezol/diflupr ednate and switch to prednisolone. 10 mL 3 4 Active hydroCHLOROthiaz betty (HydroDiuril) 25 mg tablet Take 25 mg by mouth daily. Active Active Problems Problem Noted Date Diagnosed [...] Encounters Date Type Department Care Team Description 03/02/2025 Clinical Communication Department of Ophthalmology in [place], [place] [address] [place] [phone] Kenya Garza M.D. DMV form [id number] 01/22/2025 Clinical Communication Department of Ophthalmology in [place], [place] [address] [place] [phone] Shahnaz Amato, C.O.A. 01/22/2025 Orders Only Department of Ophthalmology in [place], [place] [address] [place] [phone] Shahnaz Amato, C.O.A. Glaucoma Suspect Ocular Hypertension Left (Primary Dx) 01/19/2025 12:30 PM CDT Office Visit Department of Ophthalmology in [place], [place] [address] [place] [phone] Kenya Garza M.D. Panuveitis Right (Primary Dx); Glaucoma Suspect Ocular Hypertension Left; Necrosis Retinal Acute Right 01/19/2025 10:15 AM CDT Office Visit Department of Ophthalmology in [place], [place] [address] [place] [phone] Prakash Graham M.D. Necrosis Retinal Acute Right (Primary Dx) 01/19/2025 10:00 AM CDT Ancillary Procedure Department of Ophthalmology in [place], [place] [address] [place] [address] Prakash Graham M.D. Panuveitis Right; Necrosis Retinal Acute Right 01/19/2025 Ancillary Procedure Department of Ophthalmology from Last 3 Months Family History Medical History Relation Name Comments Lymphoma Brother Kannan Podhora 2018 Prostate cancer Father Podhora 2001 Stroke Father Podhora Coronary artery disease Mother Afia Chencho Not sure of dates no bypass Diabetes [...] shut off services in your home? No 01/16/2025 Social Connection and Isolation Panel [NHANES] A nswer Date Recorded In a typical week, how many times do you talk on the phone with family, friends, or neighbors? Once a week 06/27/2020 How often do you get together with friends or re latives? Never 06/27/2020 How often do you attend restorationism or zoroastrian serv ices? Never 06/27/2020 Do [...] medical care, and heating? Somewhat hard 06/27/2020 [facility] of Occupat ional Health - Occupational Stress [...] to strenuous exercise (like a brisk walk)? 3 days 01/16/2025 On average, how many minutes do you engage in exercise at this level? 30 min 01/16/2025 Hunger Vital Sign Answer Date Recorded Within the past 12 months, y ou worried that your food would run out before you got the money to buy more. Never true 01/17/20 25 Within the past 12 months, t he food you bought just didn't last and you didn't have money to get more. Never true 01/16/2025 PRAPARE - Transportation Answer Date Re corded In the past 12 months, has l ack of transportation kept you from medical appointments or from getting medications? No 12/27 In the past 12 months, has l ack of transportation kept you from meetings, work, or from getting things needed for daily living? No 01/16/2025 Nutrition Answer Date Recorded On average, how many serving s of fruits and vegetables do you eat per day (serving size is equal to 1 cup or approximately the size of a tennis ball)? 0-2 01/16/2025 Dental Answer Date Recorded Dental: Regular Dentist No 11/05/19 24 Employment Answer Date Recorded Employment status Employed and actively working without restrictions 01/16/2025 Housing Stability Answer Date Recorded What is your living situation today? I have a [facility] place to live 01/16/2025 Education Answer Date Recorded What is the highest level of school you have completed or the highest degree you have received? 12th grade 06/27/2020 Comments No Sex and Gender Information Value Date Recorded Sex Assigned at Female 07/06/2020 10:15 AM CDT Legal Sex Female 4:04 PM INSTALLATION SPECIALIST Gender Identity Female 02/11/2019 3:24 PM CDT Sexual Orientation Straight 02/11/2019 3: 24 PM CDT Last Filed Vital Signs Vital Sign Reading Time Taken Comments Blood Pressure 142/81 06/01/2024 7:07 PM CDT Pulse 83 06/01/2024 7:07 PM CDT Temperature 36.6 C (97.9 F) 06/01/2024 7:13 PM CDT Respiratory Rate 15 06/01/2024 7:07 PM CDT Oxygen Saturation 96% 06/01/2024 7:07 PM CDT Inhaled Oxygen Concentration - - Weight 92 kg (202 lb 13.2 oz) 06/01/2024 2:07 PM CDT Height 170.2 cm (5' 7.01) 06/01/2024 2:07 PM CD T Body Mass Index 31.76 06/01/2024 2:07 PM CDT Plan of Treatment Health Maintenance Due Date Last Done Comments Bone Density Scan (Osteoporosis Screen) 1957 CT Colonography 1957 Colonoscopy 1957 FIT 1957 Hepatitis C Screening 1957 Lipid (Cholesterol) Screening 1957 Mammogram 1957 RSV vaccine - (32-36 weeks) or 60+ years (1 - Risk 60-74 years 1-dose series) 2017 Lung Cancer Screening 03/31/2021 03/31/2020 Office Visit for Blood Pressure Check / Re-check 07/15/2024 04/14/2024 Depression Screening (Annual PHQ-2) 10/28/2024 Fall Risk Screen (Annual) 10/28/2024 Creatinine Level (Kidney Function Test) 01/12/2025 01/13/2024, 01/12/2024, 01/11/2024, Additional history exists Sodium Level 01/12/2025 01/13/2024, 12/26, 01/11/2024, Additional history exists Potassium Level 01/13/2025 01/14/2024, 12/26, 01/12/2024, Additional history exists COVID-19 Vaccine (5 - Pfizer risk season) 2025 07/28/2024, 07/18/2021, 02/14/2021, Additional history exists Fasting Glucose for Diabetes Screening 06/01/2027 06/01/2024, 01/13/2024, 01/12/2024, Additional history exists Cologuard 11/07/2027 11/07/2024 Colorectal Cancer Screening 11/07/2027 DTaP,Tdap,and Td Vaccines (3 - Td or Tdap) 06/24/2028 06/24/2018, 03/08/2009 Cervical/Vaginal Cancer Screening Discontinued 08/14/2019 Zoster Vaccines Completed 02/23/2022, 07/04/2021 Pneumococcal vaccine (50+ years) Completed 01/23/2023, 06/24/2018 Influenza Vaccine Completed 07/28/2024, , 07/16/2020, Additional history exists HPV Vaccines Aged Out No longer eligi ble based on patient's age to complete this topic IPV Vaccines Aged Out No longer eligi ble based on patient's age to complete this topic Medical Devices Implanted Type Area Auto Striper Device Identifier Shelf Expiration Date Model / Serial / Lot Slv Sclr Rnd 1x2.1x30 - [id number] Implanted:Qty : 1 on 06/01/2024 by Prakash Graham M.D. at [facility] Ocular (Eye) Implant Right: Eye [employer] 11/27/2030 [id number] / / [id number] Band Implanted:Qty : 1 on 06/01/2024 by Prakash Graham M.D. at [facility] Ocular (Eye) Implant Right: Eye ZEISS [id number] / / [id number] Stent Other Stent Other Chest Description:Has stent but un sure of placement Procedures Procedure Name Priority Date/Time Associated Diagnosis Comments OUTSIDE CT BODY Routine 02/04/2025 10:[address] NEURO Routine 02/04/2025 10:4 5 AM CDT OPTICAL COHERENCE TOMOGRAPHY - MACULA/RETINA - OU - BOTH EYES Routine 01/19/2025 10:15 AM CDT Panuveitis Right Necrosis Retinal Acute Right OPHTHALMOLOGY IMAGE EXAM Routine 01/19/2025 12:00 AM CDT GLUCOSE POCT, B Routine 06/01/2024 6:36 PM CDT COMPREHENSIVE METABOLIC PANEL, S/P Routine 11/05/2023 4:03 PM INSTALLATION SPECIALIST Uveitis CT CHEST WITH IV CONTRAST RAD - Routine (most inpatients and all outpatients) 03/31/2020 8:50 AM CDT Nodule Pulmonary from Last 3 Months or Most Recently Relevant to Health Maintenance Results * CT chest abdomen pelv w con-Outside CT Body (02/04/2025 10:50 AM CDT) Narrative IIMS - 02/10/2025 10:18 AM CDT This order has been created and auto-finalized to support the import of outside images. If available, original interpretation can be found on the Media Tab in Chart Review, in Document Viewer, as an image in InfinityView or as an Addendum. If a re-interpretation or overread is required please follow defined workflow. Provider Not In System IMG CT PROCEDURES Final R esult Performing Organization Address [facility] de Phone Number IIMS NA * CT SOFT TISSUE NECK W CON-Outside CT Neuro (02/04/2025 10:45 AM CDT) Narrative IIAK - 02/10/2025 10:13 AM CDT This order has been created and auto-finalized to support the import of outside images. If available, original interpretation can be found on the Media Tab in Chart Review, in Document Viewer, as an image in InfinityView or as an Addendum. If a re-interpretation or overread is required please follow defined workflow. Provider Not In System IMG CT PROCEDURES Final R esult Performing Organization Address [facility] de Phone Number IIMS NA * Optical Coherence Tomography - Macula/Retina - OU - Both Eyes (01/19/2025 10:15 AM CDT) Narrative OPHTHALMOLOGY IMAGING EXAM - 01/19/2025 11:48 AM CDT Right Eye OCT device used was Spectralis . Left Eye OCT device used was Spectralis . Notes DH Ischemic OD with thinning, OS stable Prakash Graham M.D. OPHTH TOMOGRAPHY Final Resu lt Performing Organization Address [facility] de Phone Number OPHTHALMOLOGY IMAGING EXAM * Eyes Spectralis OCT-Ophthalmology Image Exam (01/19/2025 12:00 AM CDT) Narrative IIMS - 01/19/2025 10:27 AM CDT This order has been created and auto-finalized to support the import of images acquired without order. The clinical documentation to support these images can be found on the encounter that produced images. us Provider Not In System IMG NON RAD IMAGING PROCE DURES Final Result IIAK NA * (ABNORMAL) Glucose, POCT (06/01/2024 6:36 PM CDT) Glucose, POCT, B 207(H) 70 - 140 mg/dL 06/01/2024 6:46 PM CDT PCLX Site Capillary 06/01/2024 6:46 PM CDT PCLX Blood 06/01/2024 6:36 PM CDT 06/01/2024 6:47 PM CDT us Unknown Provider LAB POCT ORDERABLES-MANUAL Shakira l Result Performing Organization Address City/[facility]/ZIP Co de Phone Number POC [facility] [address] [place] [address], [facility] PCLX [facility] POC [address] [place] [address] * (ABNORMAL) Comprehensive Metabolic Panel (11/05/2023 4:03 PM INSTALLATION SPECIALIST) Potassium, S 4.4 3.6 - 5.2 mmol/L 11/05/2023 5:04 PM INSTALLATION SPECIALIST DTL Sodium, S 139 135 - 145 mmol/L 11/05/2023 5:04 PM INSTALLATION SPECIALIST DTL Chloride, S 101 98 - 107 mmol/L 11/05/2023 5:04 PM INSTALLATION SPECIALIST DTL Bicarbonate, S 27 22 - 29 mmol/L 11/05/2023 5:04 PM INSTALLATION SPECIALIST DTL Anion Gap 11 7 - 15 11/05/2023 5:04 PM INSTALLATION SPECIALIST DTL BUN (Blood Urea Nitrogen), S 17 6 - 21 mg/dL 11/05/2023 5:04 PM INSTALLATION SPECIALIST DTL Creatinine 0.76 0.59 - 1.04 mg/dL 11/05/2023 5:04 PM INSTALLATION SPECIALIST DTL Estimated GFR (eGFR) 86 >=60 mL/min/BS A 11/05/2023 5:04 PM INSTALLATION SPECIALIST DTL Comment: Estimated GFR calculated using the 2020 CKD_EPI creatinine equation. Calcium, Total, S 10.1 8.8 - 10.2 mg/dL 11/05/2023 5:20 PM INSTALLATION SPECIALIST DTL Glucose, S 104 70 - 140 mg/dL 11/05/2023 5:04 PM INSTALLATION SPECIALIST DTL Protein, Total, S 6.1(L) 6.3 - 7.9 g/dL 11/05/2023 5:04 PM INSTALLATION SPECIALIST DTL Albumin, S 4.3 3.5 - 5.0 g/dL 11/05/2023 5:04 PM INSTALLATION SPECIALIST DTL Aspartate Aminotransferase (AST), S 16 8 - 43 U/L 11/05/2023 5:04 PM INSTALLATION SPECIALIST DTL Alkaline Phosphatase, S 81 35 - 104 U/L 11/05/2023 5:04 PM INSTALLATION SPECIALIST DTL Alanine Aminotransferase (ALT), S 16 7 - 45 U/L 11/05/2023 5:04 PM INSTALLATION SPECIALIST DTL Bilirubin, Total, S 1.2 0.0 - 1.2 mg/dL 11/05/2023 5:04 PM INSTALLATION SPECIALIST DTL Blood (Blood, Venous) 11/05/2023 4:03 PM INSTALLATION SPECIALIST 11/05/2023 4:41 PM INSTALLATION SPECIALIST us Kenya Garza M.D. LAB BLOOD ADD-ON Final Result [facility] [address] [place] [address], [facility] DTL [facility] [address] [place] [address] * CT Chest with IV Contrast (03/31/2020 [...] visualized upper abdomen. Clinical correlation is necessary. us Emily Kraus M.D. IMG CT PROCEDURES Final Resul t from Last 3 Months or Most Recently Relevant to Health Maintenance Insurance [facility] Address: [facility] [address] [place] [address] Care Teams Behavior Management Specialist Relationship Specialty Start Date End Date Elsewhere, Pcp PCP - General Internal Medicine 05/29/19
--- OUTSIDE RECORDS SUMMARY | 2025-03-06 02:17 | XMS_ITS | Encounter Summary ---
Author Organization [facility] Address [address] [place] [address] Care Team Providers Care Polymer Materials Consultant Name Role Phone Elsewhere, Pcp Primary Care Provider Unavailabl e Reason for Referral * Outpatient (Routine) - Closed Specialty Diagnoses / Procedures Referred By Apolinar t Referred To Contact Cardiovascular Disease Diagnoses Coronary Artery Disease (Unspecified) Katerine Bashir M.D. [address] [place] [address] Phone: tel: fax: [facility] Referral ID Status Reason Start Date Expiration Date Visits Re quested Visits Authorized [id number] Closed 02/12/2019 02/12/2020 1 1 Encounter Details Date Type Department Care Team (Late st Contact Info) Description 02/12/2019 [facility] [address] [place] [address] Katerine Bashir M.D. [address] [place] [address] Coronary Artery Disease (Unspecified) (Primary Dx) Social History Tobacco Use Types Packs/Day Years Used Date Smoking Tobacco: Never Assessed Comments Unknown Sex and Gender Information Value Date Recorded Sex Assigned at Female 07/06/2020 10:15 AM CDT Legal Sex Female 4:04 PM FITNESS AND WELLNESS INSTRUCTOR Gender Identity Female 02/11/2019 3:24 PM CDT Sexual Orientation Straight 02/11/2019 3: 24 PM CDT documented as of this encounter Plan of Treatment Scheduled Referrals Name Type Priority Associated Diagnoses [...] documented as of this encounter Care Teams Polymer Materials Consultant Relationship Specialty Start Date End Date Elsewhere, Pcp PCP - General Internal Medicine 05/29/19 documented as of this encounter
--- OUTSIDE RECORDS SUMMARY | 2025-03-06 02:17 | XMS_ITS | Encounter Summary ---
Author Organization [facility] Address [address] [place] [address] Care Team Providers Care Programmer Numerical Control Name Role Phone Elsewhere, Pcp Primary Care Provider Unavailabl e Reason for Visit * Reason Onset Date Comments DMV form [id number] 03/02/2025 Encounter Details Date Type Department Care Team (Latest Contact Info) Description 03/02/2025 Clinical Communication Department of Ophthalmology in [place], [place] [address] [place] [phone] Kenya Garza M.D. [address] [place] [phone] DMV form [id number] Social History Tobacco Use Types Packs/Day Years Used Date Smoking Tobacco: Former Cigarettes 0.7 70.4 0 03/28/1975 - 01/09/2022 Smokeless Tobacco: Never Comments:On again off again Alcohol Use Standard Drinks/Week Comments Yes 5 (1 standard drink = 0.6 oz pur e alcohol) occasional [facility] Utilities Answer Date Recorded In the past 12 months has [employer], gas, oil, or water [employer] threatened to shut off services in your home? No 01/16/2025 Social Connection and Isolation Panel [NHANES] A nswer Date Recorded In a typical week, how many times do you talk on the phone with family, friends, or neighbors? Once a week 06/27/2020 How often do you get together with friends or re latives? Never 06/27/2020 How often do you attend orthodox or anabaptist serv ices? Never 06/27/2020 Do [...] Somewhat hard 06/27/2020 [facility] [place] of Occupat ional Health - Occupational Stress [...] have a [facility] place to live 01/16/2025 Education Answer Date Recorded What is the highest level of school you have completed or the highest degree you have received? 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
--- OUTSIDE RECORDS SUMMARY | 2025-03-06 02:17 | XMS_ITS | Encounter Summary ---
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 Never 06/27/2020 Do [...] heating? Somewhat hard 06/27/2020 [facility] [place] of Occupat ional Health - Occupational Stress [...] your living situation today? I have a [facility] place to live 01/16/2025 Education Answer Date Recorded What is the highest level of school you have completed or the highest degree you have received? 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
--- OUTSIDE RECORDS SUMMARY | 2025-03-06 02:17 | XMS_ITS | Clinical Summary ---
Author Organization [facility] Address [address] [place] [address] Care Team Providers Care Card Grinder Helper Name Role Phone Easton Mccormick MD Unavailable [phone] Katerine Bashir MD Primary Care Provider + Allergies Active Allergy Reactions Criticality Noted Date Comments Wheeler Yefri Itching 09/11/2023 Medications aspirin (ECOTRIN) 81 mg enteric coated tabletIndications :Non-ST elevation [place] (NSTEMI) (HC) Take 1 tablet by mouth once daily with a meal. 0 6 Active atorvastatin (LIPITOR) 40 mg tabletIndications :Coronary artery disease, angina presence unspecified, unspecified vessel or lesion type, unspecified whether [place] or transplanted heart Take 1 tablet by mouth at bedtime. 90 tablet 3 6 Active blood sugar diagnostic (ACCU-CHEK DAVID) stripIndications: Type 2 diabetes mellitus without complication, without long-term current use of insulin (HC) 1 box 3 6 Active lancetsIndication s:Type 2 diabetes mellitus without complication, without long-term current use of insulin (HC) Dispense item covered by pt ins. E11.9 NIDDM type II - Test 1 time/day 100 Each 3 6 Active metoprolol succinate (TOPROL XL) 100 mg Sustained-Release tabletIndications :Arteriosclerotic heart disease Take 1 Tablet (100 mg) by mouth once daily. 0 3 Active lisinopriL (PRINIVIL; ZESTRIL) 40 mg tablet [...] into right eye two times daily. Active albuterol-ipratro pium (DUONEB) (2.5-0.5 mg) in 3 mL NEBULIZATION [...] to 3 tablets in 15 minutes. Active carboxymethylcell ulose sodium (Artificial Tears, cmc,) 1 % drop Place 1 Drop into right eye three times daily. Active predniSONE (DELTASONE) 5 mg tabletIndications :Interstitial pneumonia of both lungs (HC) Take 3 Tablets (15 mg) by mouth once daily with a meal. 4 Active hydroCHLOROthiazi de 25 mg tabletIndications :HTN (hypertension) Take 1 Tablet (25 mg) by mouth once daily. 90 Tablet 1 5 Active Active Problems Problem Noted Date Diagnosed Date Acute respiratory failure 01/14/2024 [place] coma scale total score 3-8 01/14/2024 Coma [...] ACP (advance care planning) 09/11/2023 Non-ST elevation [place] (NSTEMI) 11/19/2015 Melanoma in situ 06/15/2014 Overview (06/15/2014): Right lower anterior leg and upper right eyelid. 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 Morbid obesity 04/10/2010 Diabetes mellitus, type 2 HTN (hypertension) CAD (coronary artery disease) Hyperlipidemia LDL goal <70 Encounters Date Type Department Care Team Description 01/02/2025 Refill [facility] [address] [place] [address] Shashank Smith MD, PhD Refill Request (Hydrochlorothiazide) from Last 3 Months Immunizations Immunization Administration Dates Next Due HepA-HepB (Twinrix) 08/26/2015,06/15/2014 [...] 1-2 drinks/month Social Connections Answer Date Recorded Do you often feel lonely or isolated from those around you? 0 09/11/2023 Financial Resource Strain Answer Date R ecorded Difficulty of Paying Living Expenses 3 09/11/2023 Difficulty of Paying Living Expenses Not on file 09/11/2023 Food Insecurity Answer Date Recorded Do you worry your food will run out before you are able to buy more? 1 09/11/2023 Transportation Needs Answer Date Record ed Does lack of transportation keep you from medica l appointments? 1 09/11/2023 Does lack of transportation keep you from work, meetings or getting things that you need? 1 09/11/2023 Housing Stability Answer Date Recorded What is your housing situation today? 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 Not on file Not on file Not on file Not on file Not on file Not on file Not on file Obstetrics History Para Term AB IAB SAB Ectopic Multiple Livin g Live Births 0 0 0 0 0 0 0 0 0 0 Last Filed Vital Signs Vital Sign Reading Time Taken Comments Blood Pressure 138/87 01/14/2024 3:00 AM CDT Pulse 80 01/14/2024 3:00 AM CDT Temperature 36.5 C (97.7 F) 01/14/2024 9:15 AM CDT Respiratory Rate 18 01/14/2024 3:00 AM CDT Oxygen Saturation 96% 01/14/2024 3:00 AM CDT Inhaled Oxygen Concentration - - Weight 76.7 kg (169 lb) 01/14/2024 6:00 AM CDT Height 168.2 cm (5' 6.22) 01/09/2024 9:00 AM CD T Body Mass Index 27.1 01/09/2024 9:00 AM CDT Plan of Treatment Health Maintenance Due Date Last Done Comments Hepatitis C screening for ag e 18-08/01/1973 Pneumococcal series for age 50+ (1 of 2 - PCV) 1976 Zoster (shingles) series for age 50+ (1 of 2) 1976 RSV vaccine for adults or (1 - Risk 60-74 years 1-dose series) 2017 BMI (ht and wt on same day) [...] ( season) 2024 07/18/2021, 02/14/2021, 01/24/2021 Influenza Vaccine (Season Ended) 2025 09/26/2016, 08/26/2015, 08/03/2014, Additional history exists Tdap Completed 03/08/2009 Goals Goal Patient Goal Type Associated Problems Recent Progress Patient-Stated? Author BLOOD PRESSURE-MA INTAINS BP LESS THAN 130/80 Blood Pressure No Bailey Turpin NP Procedures Procedure Name Priority Date/Time Associated Diagnosis Comments XR MAMMO BILAT SCREEN FFDM (IA) Routine 10/04/2016 9:00 AM FRUIT AND VEGETABLE INSPECTOR Visit for screening mammogram LIPID PANEL W REFLEX MEASURED LDL Routine 09/11/2016 9:26 AM FRUIT AND VEGETABLE INSPECTOR Hyperlipidemia, unspecified XR DXA BONE DENSITY 2 SITES AXIAL Routine 08/18/2015 9:25 AM CDT Screening for osteoporosis from Last 3 Months or Most Recently Relevant to Health Maintenance Results * XR MAMMO BILAT SCREEN FFDM (10/04/2016 9:00 AM FRUIT AND VEGETABLE INSPECTOR) Anatomical Region Laterality Modality BREASTS, Breast Left, Breast Right Bilateral Mammography Narrative 10/04/2016 1:52 PM FRUIT AND VEGETABLE INSPECTOR BILATERAL DIGITAL SCREENING MAMMOGRAM WITH COMPUTER-AIDED DETECTION 10/04/2016 CLINICAL HISTORY: Screening. COMPARISON: 08/18/2015, 04/21/2014 and 05/20/2012. TECHNIQUE: CC and MLO views of both breasts interpreted with the aid of computer-aided detection. BREAST COMPOSITION: Fatty. FINDINGS: There is an 11-12 mm focal asymmetry in the posterolateral RIGHT breast demonstrating mammographic appearance suggesting the possibility of fat necrosis. No areas of architectural distortion are seen. No suspicious calcifications with benign-appearing calcifications present BILATERALLY. RECOMMENDATION: RIGHT breast ultrasound focusing on the mid to posterior depth 10 o'clock position near the lateral skin surface as seen on the CC projection. BI-RADS Category 0: Incomplete: Need Additional Imaging Evaluation and/or Prior Mammograms for Comparison Bernardino Avelar D.O. Diagnostic Radiologist [email or web address] NINFA/gurdeep / Bailey Collins GLOBAL ANALYTICS HEAD MAMMO F inal Result * (ABNORMAL) LIPID PANEL W REFLEX MEASURED LDL (09/11/2016 9:26 AM FRUIT AND VEGETABLE INSPECTOR) CHOLESTEROL,TOTAL 159 100 - 199 mg/dL 09/11/2016 10:03 AM FRUIT AND VEGETABLE INSPECTOR [facility] TRIGLYCERIDES 183(H) <150 mg/dL 09/11/2016 10:03 AM FRUIT AND VEGETABLE INSPECTOR [facility] HDL CHOLESTEROL 36(L) >40 mg/dL 6 10:03 AM FRUIT AND VEGETABLE INSPECTOR [facility] NON-HDL CHOLESTEROL 123 <145 mg/dl 09/11/2016 10:03 AM FRUIT AND VEGETABLE INSPECTOR [facility] CHOL/HDL RATIO 4.42 <4.50 09/11/2016 10:03 AM FRUIT AND VEGETABLE INSPECTOR [facility] LDL CHOLESTEROL 86 <=130 mg/dL 09/11/2016 10:03 AM FRUIT AND VEGETABLE INSPECTOR [facility] PATIENT STATUS NOT GIVEN 09/11/2016 10:03 AM FRUIT AND VEGETABLE INSPECTOR [facility] Blood BLOOD SPECIMEN / Unknown Venipuncture / Unknown 09/11/2016 9:26 AM FRUIT AND VEGETABLE INSPECTOR 09/11/2016 9:26 AM FRUIT AND VEGETABLE INSPECTOR us Bailey Collins NP CHEMISTRY F inal Result [facility] [address] [place] [address], * XR DXA BONE DENSITY 2 SITES (08/18/2015 9:25 AM CDT) Anatomical Region Laterality Modality Spine, HIPS, HIPL, HIPR Other Narrative 08/19/2015 6:36 PM CDT Please see scanned document for results of this study. us Bailey Collins NP DEXA F inal Result from Last 3 Months or Most Recently Relevant to Health Maintenance [place] [address] [facility] MEDICARE PART A HB ONLY Advance Directives * Full Code (Latest Code [...] Comments Code Status Discussion: Discussed Care Teams Card Grinder Helper Relationship Specialty Start Date End Date Katerine Bashir MD [address] [place] [address] PCP - General Family Practice 12/27/20 Easton Mccormick MD [address] [place] [phone] Cardiovascular Disease 09/26/16
--- OUTSIDE RECORDS SUMMARY | 2025-03-06 02:17 | XMS_ITS | Encounter Summary ---
Author Organization [facility] Address [address] [place] [address] Care Team Providers Care Furniture Mover Helper Name Role Phone Elsewhere, Pcp Primary Care Provider Unavailabl e Reason for Referral * Outpatient (Routine) - Closed Specialty Diagnoses / Procedures Referred By Apolinar t Referred To Contact Cardiovascular Disease Diagnoses Coronary Artery Disease (Unspecified) Katerine Bashir M.D. [address] [place] [address] Phone: tel: fax: [facility] Referral ID Status Reason Start Date Expiration Date Visits Re quested Visits Authorized [id number] Closed 02/10/2019 02/10/2020 3 3 Encounter Details Date Type Department Care Team (Late st Contact Info) Description 02/10/2019 [facility] [address] [place] [address] Katerine Bashir M.D. 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
--- OUTSIDE RECORDS SUMMARY | 2025-03-06 02:17 | XMS_ITS | Encounter Summary ---
Author Organization [facility] Address [address] [place] [address] Care Team Providers Care Conversion Man Name Role Phone Elsewhere, Pcp Primary Care Provider Unavailabl e Encounter Details Date Type Department Care Team (Latest Contact Info) Description 01/22/2025 Clinical Communication Department of Ophthalmology in [place], [place] [address] [place] [address] Shahnaz Amato, C.O.A. [address] [place] [phone] Social History Tobacco Use Types Packs/Day Years Used Date Smoking Tobacco: Former Cigarettes 0.7 70.4 0 03/28/1975 - 01/09/2022 Smokeless Tobacco: Never Comments:On again off again Alcohol Use Standard Drinks/Week Comments Yes 5 (1 standard drink = 0.6 oz pur e alcohol) occasional [facility] Utilities Answer Date Recorded In the past 12 months has [employer] electric, gas, oil, or water company threatened [...] How often do you attend religious or nondenominational serv ices? Never 06/27/2020 Do [...] care, and heating? 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
[2025-03-06 02:19] VITALS: BP 149/71; PULSE 75; RESP 20; TEMP 37.6; O2SAT 97; BMI 36.0
[2025-03-06 02:22] VITALS: O2SAT 97
[2025-03-06 02:48] LABS: Strep A DNA Probe* NOT DETECTED (Not Detectd)
[2025-03-06] MEDS: AMOXICILLIN/CLAVULANATE 875 mg/125 mg TABLET PO (02:55)
--- NOTE | 2025-03-06 02:57 | ED_ITS ---
HPI - General Adult General Chief complaint: Unspecified Complaint, Adult Stated complaint: ear pain, fever Time Seen by Provider: 03/06/25 02:26 Source: patient Mode of arrival: ambulatory Limitations: no limitations History of Present Illness HPI narrative: 69-year-old female presents to the emergency department in the wee hours with a 3 day history of left ear pain and mattering of the left eye. Low-grade fever at home. No body aches, severe shortness of breath, loss of consciousness, chest pain. Tried taking Aleve a couple of hours ago with some mild improvement in symptoms. Has not attempted to be seen in urgent care or her primary care clinic. 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 Nonsmoker. Past medical history notable for coronary artery disease, stent placement, history of AFib, diabetes, CLL. She does not list her home meds even when asked but reports that they are listed crackly according to the nursing team. Nonsmoker. ROS is notable for the HEENT symptoms only, otherwise denies times 12 systems. Related Data Home Medications ?Medication ?Instructions ?Recorded ?Confirmed aspirin 81 mg tablet,delayed 81 mg PO DAILY 04/26/22 02/10/25 release fexofenadine 180 mg tablet 180 mg PO DAILY 01/23/23 02/10/25 (Rosangela Allergy) ascorbic acid (vitamin C) 500 mg 500 mg PO DAILY 01/17/24 02/10/25 chewable tablet glycerin 0.5 % eye drops (Biotrue 1 drp ophthalmic (eye) TID 01/17/24 02/10/25 Hydration Boost) valacyclovir 1 gram tablet 1,000 mg PO QDAY 01/17/24 02/10/25 fluticasone propionate 50 1 spray intranasal DAILY PRN 04/07/24 02/10/25 mcg/actuation nasal spray,suspension hydrochlorothiazide 25 mg tablet 25 mg PO QDAY 05/21/24 02/10/25 umeclidinium 62.5 mcg-vilanterol 1 inh inhalation DAILY PRN 11/25/24 02/10/25 25 mcg/actuation powdr for inhalation (Anoro Ellipta) prednisolone acetate 1 % eye 1 drp ophthalmic (eye) BID 02/10/25 02/10/25 drops,suspension prednisone 5 mg tablet 2.5 mg PO QDAY 02/10/25 02/10/25 Previous Rx's ?Medication ?Instructions ?Recorded nitroglycerin 0.4 mg sublingual 0.4 mg sublingual Q5-15M PRN chest 06/10/23 tablet pain #30 tabs albuterol sulfate 2.5 mg/3 mL 2.5 mg (3 mL) inhalation Q4H PRN 01/17/24 (0.083 %) solution for nebulization bronchospasm #90 mL albuterol sulfate 90 mcg/actuation 2 puff inhalation Q4H PRN 01/17/24 aerosol inhaler shortness of breath or wheezing #25.5 grams Blood Glucose Meter #1 ea 07/28/24 amlodipine 5 mg tablet 5 mg PO DAILY #90 tabs 07/28/24 blood sugar diagnostic (Blood #200 ea 07/28/24 Glucose Test strips) atorvastatin 40 mg tablet 40 mg PO HS #90 tabs 01/25/25 glimepiride 1 mg tablet 1 mg PO QAM #90 tabs 01/25/25 metformin 500 mg tablet 1,000 mg (2 x 500 mg) PO BIDWMEAL 01/25/25 #360 tabs metoprolol succinate 100 mg 100 mg PO DAILY #90 tabs 01/25/25 tablet,extended release 24 hr lisinopril 20 mg tablet 20 mg PO DAILY #90 tabs 01/26/25 lancets (Accu-Chek Softclix #200 ea 02/01/25 Lancets) amoxicillin 875 mg-potassium 1 tab PO BID #14 tabs 03/06/25 clavulanate 125 mg tablet Allergies Allergy/AdvReac Type Severity Reaction Status Date / Time methotrexate Allergy Intermediate Verified 02/10/25 10:17 Aller Xt-[place] AdvReac Intermediate Unknown Uncoded 02/04/25 11:21 Pollen-[place] [facility] Medical History Headache ?R51.9 - Headache, unspecified (ICD-10) PRES (posterior reversible encephalopathy syndrome) (~03/2024) ?I67.83 - Posterior reversible encephalopathy syndrome (ICD-10) Mastoiditis of left side ?H70.92 - Unspecified mastoiditis, left ear (ICD-10) Acute sinusitis ?J01.90 - Acute sinusitis, unspecified (ICD-10) PRES (posterior reversible encephalopathy syndrome) (12/2023) ?I67.83 - Posterior reversible encephalopathy syndrome (ICD-10) Hypertension ?I10 - Essential (primary) hypertension (ICD-10) Hypomagnesemia ?E83.42 - Hypomagnesemia (ICD-10) Weight loss, abnormal ?R63.4 - Abnormal weight loss (ICD-10) Elevated LFTs ?R79.89 - Other specified abnormal findings of blood chemistry (ICD-10) Acute interstitial pneumonitis (09/11/23) ?J84.114 - Acute interstitial pneumonitis (ICD-10) History of nuclear stress test (11/19/23) ?Z92.89 - Personal history of other medical treatment (ICD-10) Environmental allergies ?Z91.09 - Other allergy status, other than to drugs and biological substances (ICD-10) Hypercalcemia (08/30/23) ?E83.52 - Hypercalcemia (ICD-10) Respiratory failure ?J96.90 - Respiratory failure, unspecified, unspecified whether with hypoxia or hypercapnia (ICD-10) Dyslipidemia ?E78.5 - Hyperlipidemia, unspecified (ICD-10) Microalbuminuria due to type 2 diabetes mellitus ?E11.29 - Type 2 diabetes mellitus with other diabetic kidney complication (ICD-10) ?R80.9 - Proteinuria, unspecified (ICD-10) Lymphoma, small lymphocytic (2018) ?C83.00 - Small cell B-cell lymphoma, unspecified site (ICD-10) Type 2 diabetes mellitus ?E11.9 - Type 2 diabetes mellitus without complications (ICD-10) Chronic obstructive pulmonary disease (06/2020) ?J44.9 - Chronic obstructive pulmonary disease, unspecified (ICD-10) Diarrhea ?R19.7 - Diarrhea, unspecified (ICD-10) Bullous pemphigoid (~12/2022) ?L12.0 - Bullous pemphigoid (ICD-10) Splenomegaly (07/2022) ?R16.1 - Splenomegaly, not elsewhere classified (ICD-10) Elevated liver transaminase level ?R74.01 - Elevation of levels of liver transaminase levels (ICD-10) Ventricular bigeminy (2018) ?I49.8 - Other specified cardiac arrhythmias (ICD-10) History of bone density study (03/2023) ?Z92.89 - Personal history of other medical treatment (ICD-10) Vitamin D deficiency ?E55.9 - Vitamin D deficiency, unspecified (ICD-10) No retinopathy on exam (03/2021) ?Z01.00 - Encounter for examination of eyes and vision without abnormal findings (ICD-10) History of myocardial infarction (11/21/15) ?I25.2 - Old myocardial infarction (ICD-10) History of malignant neoplasm of skin ?Z85.828 - Personal history of other malignant neoplasm of skin (ICD-10) Frequent ventricular premature beats ?I49.3 - Ventricular premature depolarization (ICD-10) Coronary artery disease (2000) ?I25.10 - Atherosclerotic heart disease of [place] coronary artery without angina pectoris (ICD-10) Surgical History History of eye surgery (~06/01/24) ?Z98.890 - Other specified postprocedural states (ICD-10) History of bronchoscopy (08/2023) ?Z98.890 - Other specified postprocedural states (ICD-10) History of four vessel coronary artery bypass graft (2000) ?Z95.1 - Presence of aortocoronary bypass graft (ICD-10) History of coronary artery stent placement (11/21/15) ?Z95.5 - Presence of coronary angioplasty implant and graft (ICD-10) Family History Father Stroke, Onset Age: 70 Prostate cancer Mother Diabetes Myocardial infarction, Onset Age: 65 Daughter Stroke, Onset Age: 36 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: , 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, 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 SMOKER: Tobacco abuse- 10/day, 32 pack years~ resolved 01/16 Does not exercise- active in garden and yard Social drinker- 2/week Past problems: Non-smoker- quit 2000, hx 30 pack years What is your current living situation?: I presently have a place to live Problems where you live: no known problems Problems where you live details: None In the past 12 months, utilities in danger of being shut off: no In past 12 months, lack of transportation kept you from medical appts, meetings, work, or getting things needed for daily living: no In the past 12 mos, have been you worried that your food would run out before you had money to buy more?: never true In the past 12 mos, the food you bought just didn't last and you didn't have money to buy more?: never true Highest level of school completed/degree received: high school graduate Smoking Status: Former smoker What tobacco products do you use: cigarettes Smoking quit date/years: <= 15 years ago Do you use any of these nicotine containing products: None Second hand tobacco smoke exposure: No How often do you have a drink containing alcohol: 2-4 times a month Alcohol type: beer and hard liquor Alcohol type details: stopped alcohol 5 weeks ago How many standard drinks containing alcohol do you have on a typical day: 1 or 2 How often do you have six or more drinks on one occasion: Less than monthly AUDIT-C Alcohol total score: 3 Non-prescribed substance use: denies use Caffeine: Yes How often does anyone, including family, friends and others, physically hurt you : never How often does anyone, including family, friends and others, insult or talk down to you: never How often does anyone, including family, friends and others, threaten you with harm: never How often does anyone, including family, friends and others, scream or curse at you: never service: No Exam Const: Vital Signs, click to edit/add: Vital Signs - 24 hr 03/06/25 02:19 Temperature 99.6 F Pulse Rate [Right Pulse Oximeter] 75 Respiratory Rate 20 Blood Pressure [Ri ght Upper Arm] 149/71 H Pulse Oximetry 97 Oxygen Delivery Me thod Room Air Documenting provider has reviewed patient's vital signs: yes Common nor mals: no apparent distress and alert General appearance: cooperative HENMT: Common normals: normocephalic and moist oral mucous membranes Head and scalp: normocephalic Other: No erythema or exudate to the pharynx. Moist membranes, normal dentition. Right eye with synthetic lens, no vision or accommodation, chronic. Left eye has normal pupillary response, normal extraocular movements. Conjunctivae are injected with slight mattering at the corners. Right TM normal. Left TM with effusion, dullness, loss of light reflex, normal canal. Neck & C-Spine: Common normals: full ROM, no lymphadenopathy and no meningeal signs General: normal visual inspection Resp: Common normals: normal respiratory effort, no use of accessory muscles and clear to auscultation bilaterally Effort & inspection: able to speak in complete sentences Auscultation: clear to auscultation bilaterally Cardio: Common normals: regular rate, regular rhythm, S1 normal heart sound, S2 normal heart sound and no murmurs Rate: regular rate Rhythm: regular rhythm Heart sounds: S1 normal and S2 normal Neuro: Sensorium/orientation: alert Meningeal signs: no meningeal signs Speech: speech normal Psych: Appearance: grossly normal Activity/motor behavior: appropriate eye contact Insight: fair Judgement: fair Skin: Common normals: no rashes or lesions noted General skin exam: no rashes or lesions noted Course Course ED Course: 69-year-old female with left ear pain and mattering of left eye. Slightly immunocompromised due to CLL and autoimmune history. Recommended antibiotic management. Augmentin 875 p.o. b.i.d., tobramycin eye drops to left eye. Okay to treat right eye if it does become symptomatic. Okay to use Tylenol and/or ibuprofen as needed for discomfort. Follow up with primary care provider if not starting to improve in 5 days. Alarm symptoms reviewed that would warrant ED presentation. Written instructions provided. Strep swab negative, viral swabs negative. Vital Signs Vital signs: Initial Vital Signs Temperature 99.6 F 03/06/25 02:19 Temperature Source Temporal Artery Scan 03/06/25 02:19 Pulse Rate 75 03/06/25 02:19 Respiratory Rate 20 03/06/25 02:19 Blood Pressure 149/71 H 03/06/25 02:19 Blood Pressure Mean 97 03/06/25 02:19 Blood Pressure Position Sitting 03/06/25 02:19 Pulse Oximetry 97 03/06/25 02:19 Oxygen Delivery Method Room Air 03/06/25 02:19 Vital Signs Temperature 99.6 F 03/06/25 02:19 Pulse Rate 75 03/06/25 02:19 Respiratory Rate 20 03/06/25 02:19 Blood Pressure 149/71 H 03/06/25 02:19 Pulse Oximetry 97 03/06/25 02:19 Oxygen Delivery Method Room Air 03/06/25 02:19 Temperature 99.6 F 03/06/25 02:19 Pulse Rate 75 03/06/25 02:19 Respiratory Rate 20 03/06/25 02:19 Blood Pressure 149/71 H 03/06/25 02:19 Pulse Oximetry 97 03/06/25 02:19 Oxygen Delivery Method Room Air 03/06/25 02:19 Medications Administered Medications: Discontinued Medications Generic Name Dose Route Start Last Admin Trade Name Soy PRN Reason Stop Dose Admin Amoxicillin/Clavulanate Potassium 875 mg 03/06/25 02:52 03/06/25 02:55 Amoxicillin/Clavulanate 875 Mg/125 Mg Tablet PO 03/06/25 02:53 875 mg ONCE ONE Administration Medical Decision Making Lab Data Lab results reviewed: Yes I reviewed the patient's lab results Lab results narrative: Negative, as expected. Labs: Lab Results 03/06/25 Range/Units 02:21 SARS-CoV-2 (PCR) Negative SARS-CoV-2 (Negative) Influenza Type A (PCR) Negative PCR FLU A (Negative) Influenza Type B (PCR) Negative PCR FLU B (Negative) RSV (PCR) Negative PCR RSV (Negative) Group A Strep DNA NOT DETECTED (Not Detectd) Discharge Plan Discharge Clinical Impression: Otitis media, Acute conjunctivitis Patient Disposition: Home w/ Parent or Adult Condition: Stable Instructions: Ear Infection (ED), Conjunctivitis (ED) Additional Instructions: As we discussed, there is an infection in the left ear. This is the same bacteria that is infecting the eye, these commonly go together. I have started you on some eyedrops. You will put 2 drops in with your 1st dose tonight. You will continue repeating 1 drop into the left eye every 4 hours while you are awake for the next 5 days. If symptoms persist, you may use for up to 7 days. Do not use steroids in the eye. You do not need to treat the other eye unless you become symptomatic. Your started on antibiotic, Augmentin. This will cause some loose stools, stomach cramps. It is okay to use Tylenol 1000 mg every 6 hours and or ibuprofen 600 mg every 6 hours as needed for discomfort. Warm compresses may help as well. Continue taking the antibiotic 1 pill 2 times daily for the next 7 days. Your given a dose at about 3:00 a.m., try to take your next dose at around 3:00 p.m.. Her 3rd dose can be taken at a normal waking hour on Saturday. If symptoms are not starting to improve in 5 days, please follow-up with your primary care provider. You are considered non contagious 12 hours after starting eyedrops. Activity Level: No Restrictions Discharge Diet: Regular Prescriptions: New amoxicillin-pot clavulanate 875-125 mg tablet 1 tab PO BID Qty: 14 0RF No Action ascorbic acid (vitamin C) 500 mg tablet,chewable 500 mg PO DAILY valacyclovir 1 gram tablet 1,000 mg PO QDAY Biotrue Hydration Boost 0.5 % drops 1 drp ophthalmic (eye) TID albuterol sulfate 90 mcg/actuation HFA aerosol inhaler 2 puff inhalation Q4H PRN (Reason: shortness of breath or wheezing) Qty: 25.5 1RF albuterol sulfate 2.5 mg /3 mL (0.083 %) solution for nebulization 2.5 mg inhalation Q4H PRN (Reason: bronchospasm) Qty: 90 0RF amlodipine 5 mg tablet 5 mg PO DAILY Qty: 90 3RF (DME) Blood Glucose Test Strip See Rx Instructions .Route Qty: 200 3RF Rx Instructions: test blood sugars BID (DME) Blood Glucose Meter [facility] See Rx Instructions .Route Qty: 1 0RF Rx Instructions: test blood sugars BID prednisone 5 mg tablet 2.5 mg PO QDAY prednisolone acetate 1 % drops,suspension 1 drp ophthalmic (eye) BID Patient Comments: Right eye Rx Instructions: 1 drop to OD daily aspirin 81 mg tablet,delayed release (DR/EC) 81 mg PO DAILY fexofenadine [Rosangela Allergy] 180 mg tablet 180 mg PO DAILY hydrochlorothiazide 25 mg tablet 25 mg PO QDAY fluticasone propionate 50 mcg/actuation spray,suspension 1 spray intranasal DAILY PRN Rx Instructions: administer into each nostril Anoro Ellipta 62.5-25 mcg/actuation blister with device 1 inh inhalation DAILY PRN nitroglycerin 0.4 mg tablet, sublingual 0.4 mg sublingual Q5-15M PRN (Reason: chest pain) Qty: 30 0RF Rx Instructions: PRN CHEST PAIN metformin 500 mg tablet 1,000 mg PO BIDWMEAL Qty: 360 0RF metoprolol succinate 100 mg tablet extended release 24 hr 100 mg PO DAILY Qty: 90 0RF atorvastatin 40 mg tablet 40 mg PO HS Qty: 90 0RF glimepiride 1 mg tablet 1 mg PO QAM Qty: 90 0RF Rx Instructions: administer with breakfast lisinopril 20 mg tablet 20 mg PO DAILY Qty: 90 0RF (DME) lancets [Accu-Chek Softclix Lancets] Misc See Rx Instructions .Route Qty: 200 0RF Rx Instructions: Use to test blood sugar twice daily Follow Up/Referrals: Katerine Bashir MD [Primary Care Provider] - Stand Alone Forms: MyHealth Info Instructions
[2025-03-06 03:00] LABS: PCR FLU A Negative PCR FLU A (Negative); PCR FLU B Negative PCR FLU B (Negative); PCR RSV Negative PCR RSV (Negative); SARS PCR* Negative SARS-CoV-2 (Negative)
--- OUTSIDE RECORDS SUMMARY | 2025-03-06 03:02 | XMS_ITS | Encounter Summary ---
Author Organization [facility] Address [address] [place] [address] Care Team Providers Care Assembly Stock Supervisor Name Role Phone Elsewhere, Pcp Primary Care Provider Unavailabl e Reason for Referral * Outpatient (Routine) - Closed Specialty Diagnoses / Procedures Referred By Apolinar t Referred To Contact Cardiovascular Disease Diagnoses Coronary Artery Disease (Unspecified) Katerine Bsahir M.D. [address] [place] [address] Phone: tel: fax: [facility] Referral ID Status Reason Start Date Expiration Date Visits Re quested Visits Authorized [id number] Closed 02/12/2019 02/12/2020 1 1 Encounter Details Date Type Department Care Team (Late st Contact Info) Description 02/12/2019 [facility] [address] [place] [address] Katerine Bashir M.D. 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
--- OUTSIDE RECORDS SUMMARY | 2025-03-06 03:02 | XMS_ITS | Clinical Summary ---
Author Organization [facility] Address [address] [place] [id number] Care Team Providers Care Brokerage Coordinator Name Role Phone Easton Mccormick MD Unavailable [phone] Katerine Bashir MD Primary Care Provider + Allergies Active Allergy Reactions Criticality Noted Date Comments Wheeler Yefri Itching 09/11/2023 Medications aspirin (ECOTRIN) 81 mg enteric coated tabletIndications :Non-ST elevation NE (NSTEMI) (HC) Take 1 tablet by mouth once daily with a meal. 0 6 Active atorvastatin (LIPITOR) 40 mg tabletIndications :Coronary artery disease, angina presence unspecified, unspecified vessel or lesion type, unspecified whether [place] or transplanted heart Take 1 tablet by [...] Date Diagnosed Date Acute respiratory failure 01/14/2024 [place] coma scale total score 3-8 01/14/2024 Coma [...] ACP (advance care planning) 09/11/2023 Non-ST elevation NE (NSTEMI) 11/19/2015 Melanoma in situ 06/15/2014 Overview (06/15/2014): Right lower anterior leg and upper right eyelid. 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 Gender Identity Not on file Sexual [...] SCREEN FFDM (IA) Routine 10/04/2016 9:00 AM BARREL INSPECTOR Visit for screening mammogram LIPID PANEL W REFLEX MEASURED LDL Routine 09/11/2016 9:26 AM BARREL INSPECTOR Hyperlipidemia, unspecified XR DXA BONE DENSITY 2 SITES AXIAL Routine 08/18/2015 9:25 AM CDT Screening for osteoporosis from Last 3 Months or Most Recently Relevant to Health Maintenance Results * XR MAMMO BILAT SCREEN FFDM (10/04/2016 9:00 AM BARREL INSPECTOR) Anatomical Region Laterality Modality BREASTS, Breast Left, Breast Right Bilateral Mammography Narrative 10/04/2016 1:52 PM BARREL INSPECTOR BILATERAL DIGITAL SCREENING MAMMOGRAM WITH COMPUTER-AIDED [...] [email or web address] NINFA/gurdeep / Bailey Collins ROLLER PRINTER MAMMO F inal Result * (ABNORMAL) LIPID PANEL W REFLEX MEASURED LDL (09/11/2016 9:26 AM BARREL INSPECTOR) CHOLESTEROL,TOTAL 159 100 - 199 mg/dL 09/11/2016 10:03 AM BARREL INSPECTOR [facility] TRIGLYCERIDES 183(H) <150 mg/dL 09/11/2016 10:03 AM BARREL INSPECTOR [facility] HDL CHOLESTEROL 36(L) >40 mg/dL 6 10:03 AM BARREL INSPECTOR [facility] NON-HDL CHOLESTEROL 123 <145 mg/dl 09/11/2016 10:03 AM BARREL INSPECTOR [facility] CHOL/HDL RATIO 4.42 <4.50 09/11/2016 10:03 AM BARREL INSPECTOR [facility] LDL CHOLESTEROL 86 <=130 mg/dL 09/11/2016 10:03 AM BARREL INSPECTOR [facility] PATIENT STATUS NOT GIVEN 09/11/2016 10:03 AM BARREL INSPECTOR [facility] Blood BLOOD SPECIMEN / Unknown Venipuncture / Unknown 09/11/2016 9:26 AM BARREL INSPECTOR 09/11/2016 9:26 AM BARREL INSPECTOR us Bailey Collins NP CHEMISTRY F inal Result [facility] [address] [place] [address], * XR DXA BONE DENSITY 2 SITES (08/18/2015 9:25 AM CDT) Anatomical Region Laterality Modality Spine, HIPS, HIPL, HIPR Other Narrative 08/19/2015 6:36 PM CDT Please see scanned document for results of this study. us Bailey Collins NP DEXA F inal Result from Last 3 Months or Most Recently Relevant to Health [place] [address] [facility] MEDICARE PART A HB ONLY Advance Directives [...] Comments Code Status Discussion: Discussed Care Teams Brokerage Coordinator Relationship Specialty Start Date End Date Katerine Bashir MD [address] [place] [address] PCP - General Family Practice 12/27/20 Easton Mccormick MD [address] [place] [id number] Cardiovascular Disease 09/26/16
--- OUTSIDE RECORDS SUMMARY | 2025-03-06 03:02 | XMS_ITS | Encounter Summary ---
Author Organization [facility] Address [address] [place] [address] Care Team Providers Care Full Decator Operator Name Role Phone Elsewhere, Pcp Primary Care Provider Unavailabl e Encounter Details Date Type Department Care Team (Latest Contact Info) Description 01/22/2025 Clinical Communication Department of Ophthalmology in [place], [place] [address] [place] [address] Shahnaz Amato, C.O.A. [address] [place] [id number] Social History Tobacco Use Types Packs/Day Years Used Date Smoking Tobacco: Former Cigarettes 0.7 70.4 0 03/28/1975 - 01/09/2022 Smokeless Tobacco: Never Comments:On again off again Alcohol Use Standard Drinks/Week Comments Yes 5 (1 standard drink = 0.6 oz pur e alcohol) occasional [facility] Utilities Answer Date Recorded In the past 12 months has [employer] electric, gas, oil, or water company threatened [...] How often do you attend adventist or roman catholic serv ices? Never 06/27/2020 [...] medical care, and heating? 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
--- OUTSIDE RECORDS SUMMARY | 2025-03-06 03:02 | XMS_ITS | Encounter Summary ---
Author Organization [facility] Address [address] [place] [phone] Care Team Providers Care Pianos And Organs Salesperson Name Role Phone Elsewhere, Pcp Primary Care Provider Unavailabl e Reason for Referral * Outpatient (Routine) - Authorized Specialty Diagnoses / Procedures Referred By Apolinar t Referred To Contact Diagnoses Glaucoma Suspect Ocular Hypertension Left Procedures Refraction Kenya Garza M.D. [address] [place] [phone] Phone: tel: fax: [facility] Referral ID Status Reason Start Date Expiration Date V isits Requested Visits Authorized [id number] Authorized 01/22/2025 04/24/2026 1 1 Encounter Details Date Type Department Care Team (Late st Contact Info) Description 01/22/2025 Orders Only Department of Ophthalmology in [place], [place] [address] [place] [phone] Shahnaz Amato, C.O.AWhitney [address] [place] [phone] Glaucoma Suspect Ocular Hypertension Left (Primary Dx) Social History Tobacco Use Types Packs/Day Years Used Date Smoking Tobacco: Former Cigarettes 0.7 70.4 0 03/28/1975 - 01/09/2022 Smokeless Tobacco: Never Comments:On again off again Alcohol Use Standard Drinks/Week Comments Yes 5 (1 standard drink = 0.6 oz pur e alcohol) occasional [facility] Utilities Answer Date Recorded In the past 12 months has [employer] electric, gas, oil, or water company threatened [...] How often do you attend sabianism or congregation serv ices? Never 06/27/2020 Do [...] medical care, and heating? Somewhat hard 06/27/2020 [facility] [place] of Occupat ional Health - Occupational [...] have a [facility] place to live 01/16/2025 Education Answer Date Recorded What is the highest level of school you have completed or the highest degree you have received? 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
--- OUTSIDE RECORDS SUMMARY | 2025-03-06 03:02 | XMS_ITS | Encounter Summary ---
Author Organization [facility] Address [address] [place] [address] Care Team Providers Care Assistant Clinical Nurse Manager Name Role Phone Elsewhere, Pcp Primary Care Provider Unavailabl e Reason for Referral * Outpatient (Routine) - Closed Specialty Diagnoses / Procedures Referred By Apolinar t Referred To Contact Cardiovascular Disease Diagnoses Coronary Artery Disease (Unspecified) Katerine Bashir M.D. [address] [place] [address] Phone: tel: fax: [facility] Referral ID Status Reason Start Date Expiration Date Visits Re quested Visits Authorized [id number] Closed 02/10/2019 02/10/2020 3 3 Encounter Details Date Type Department Care Team (Late st Contact Info) Description 02/10/2019 [facility] [address] [place] [address] Katerine Bashir M.D. [address] [place] [address] Coronary Artery Disease (Unspecified) (Primary Dx) Social History Tobacco Use Types Packs/Day Years Used Date Smoking Tobacco: Never Assessed Comments Unknown Sex and Gender Information Value Date Recorded Sex Assigned at Female 07/06/2020 10:15 AM CDT Legal Sex Female 4:04 PM SETTER UP Gender Identity Female 02/11/2019 3:24 PM CDT [...] documented as of this encounter Care Teams Assistant Clinical Nurse Manager Relationship Specialty Start Date End Date Elsewhere, Pcp PCP - General Internal Medicine 05/29/19 documented as of this encounter
--- OUTSIDE RECORDS SUMMARY | 2025-03-06 03:02 | XMS_ITS | Clinical Summary ---
Author Organization [facility] Address [address] [place] [address] Care Team Providers Care Water Treatment Plant Mechanic Name Role Phone Elsewhere, Pcp Primary Care Provider Unavailabl e Source Comments Patient records contain information from all sites at [facility]. For routine questions regarding patient records, call [phone] during business hours, M-F 8:00 AM - 5:00 PM Central Time. Record requests for emergency care only can be directed to [phone] at any time.[facility] Allergies Active Allergy Reactions Criticality Noted Date Comments Aller Xt-[place] Pollen-[place] Itching,Rash,Bliste rs High 06/21/2020 [facility] Methotrexate Other [...] 03/02/2025 Clinical Communication Department of Ophthalmology in [place], [place] [address] [place] [phone] Kenya Garza M.D. DMV form [id number] 01/22/2025 Clinical Communication Department of Ophthalmology in [place], [place] [address] [place] [phone] Shahnaz Amato, C.O.A. 01/22/2025 Orders Only Department of Ophthalmology in [place], [place] [address] [place] [phone] Shahnaz Amato, C.O.A. Glaucoma Suspect Ocular Hypertension Left (Primary Dx) 01/19/2025 12:30 PM CDT Office Visit Department of Ophthalmology in [place], [place] [address] [place] [address] Kenya Garza M.D. Panuveitis Right (Primary Dx); Glaucoma Suspect Ocular Hypertension Left; Necrosis Retinal Acute Right 01/19/2025 10:15 AM CDT Office Visit Department of Ophthalmology in [place], [place] [address] [place] [address] Prakash Graham M.D. Necrosis Retinal Acute Right (Primary Dx) 01/19/2025 10:00 AM CDT Ancillary Procedure Department of Ophthalmology in [place], [place] [address] [place] [address] Prakash Graham M.D. Panuveitis Right; Necrosis Retinal [...] How often do you attend episcopalian or shinto serv ices? Never 06/27/2020 Do [...] and heating? Somewhat hard 06/27/2020 [facility] [place] of Occupat ional Health - Occupational Stress [...] your living situation today? I have a [facility] place to live 01/16/2025 Education Answer Date Recorded What is the highest level of school you have completed or the highest degree you have received? 12th grade 06/27/2020 Comments No Sex and Gender Information Value Date Recorded Sex Assigned at Female 07/06/2020 10:15 AM CDT Legal Sex Female 4:04 PM CLINICAL MANAGER HOME CARE Gender Identity Female 02/11/2019 3:24 PM CDT [...] this topic Medical Devices Implanted Type Area Museum Service Scheduler Device Identifier Shelf Expiration Date Model / Serial / Lot Slv Sclr Rnd 1x2.1x30 - [id number] Implanted:Qty : 1 on 06/01/2024 by Prakash Graham M.D. at [facility] Ocular (Eye) Implant Right: Eye [employer] 11/27/2030 [id number] / / [id number] Band Implanted:Qty : 1 on 06/01/2024 by Prakash Graham M.D. at [facility] Ocular (Eye) Implant Right: Eye ZEISS [id number] / / [id number] Stent Other Stent Other Chest Description:Has stent [...] METABOLIC PANEL, S/P Routine 11/05/2023 4:03 PM CLINICAL MANAGER HOME CARE Uveitis CT CHEST WITH IV CONTRAST RAD [...] PROCEDURES Final R esult Performing Organization Address [facility] de Phone Number IIMS NA * CT SOFT TISSUE NECK W CON-Outside CT Neuro (02/04/2025 10:45 AM CDT) Narrative IIIA - 02/10/2025 10:13 AM CDT This order [...] PROCEDURES Final R esult Performing Organization Address [facility] de Phone Number IIMS NA [...] TOMOGRAPHY Final Resu lt Performing Organization Address [facility] de Phone Number OPHTHALMOLOGY IMAGING [...] NON RAD IMAGING PROCE DURES Final Result IIIA NA * (ABNORMAL) Glucose, POCT (06/01/2024 6:36 PM CDT) Glucose, POCT, B 207(H) 70 - 140 mg/dL 06/01/2024 6:46 PM CDT PCLX Site Capillary 06/01/2024 6:46 PM CDT PCLX Blood 06/01/2024 6:36 PM CDT 06/01/2024 6:47 PM CDT us Unknown Provider LAB POCT ORDERABLES-MANUAL Shakira l Result Performing Organization Address City/[facility]/ZIP Co de Phone Number POC [facility] [address] [place] [address], [facility] PCLX [facility] POC [address] [place] [address] * (ABNORMAL) Comprehensive Metabolic Panel (11/05/2023 4:03 PM CLINICAL MANAGER HOME CARE) Potassium, S 4.4 3.6 - 5.2 mmol/L 11/05/2023 5:04 PM CLINICAL MANAGER HOME CARE DTL Sodium, S 139 135 - 145 mmol/L 11/05/2023 5:04 PM CLINICAL MANAGER HOME CARE DTL Chloride, S 101 98 - 107 mmol/L 11/05/2023 5:04 PM CLINICAL MANAGER HOME CARE DTL Bicarbonate, S 27 22 - 29 mmol/L 11/05/2023 5:04 PM CLINICAL MANAGER HOME CARE DTL Anion Gap 11 7 - 15 11/05/2023 5:04 PM CLINICAL MANAGER HOME CARE DTL BUN (Blood Urea Nitrogen), S 17 6 - 21 mg/dL 11/05/2023 5:04 PM CLINICAL MANAGER HOME CARE DTL Creatinine 0.76 0.59 - 1.04 mg/dL 11/05/2023 5:04 PM CLINICAL MANAGER HOME CARE DTL Estimated GFR (eGFR) 86 >=60 mL/min/BS A 11/05/2023 5:04 PM CLINICAL MANAGER HOME CARE DTL Comment: Estimated GFR calculated using the 2020 CKD_EPI creatinine equation. Calcium, Total, S 10.1 8.8 - 10.2 mg/dL 11/05/2023 5:20 PM CLINICAL MANAGER HOME CARE DTL Glucose, S 104 70 - 140 mg/dL 11/05/2023 5:04 PM CLINICAL MANAGER HOME CARE DTL Protein, Total, S 6.1(L) 6.3 - 7.9 g/dL 11/05/2023 5:04 PM CLINICAL MANAGER HOME CARE DTL Albumin, S 4.3 3.5 - 5.0 g/dL 11/05/2023 5:04 PM CLINICAL MANAGER HOME CARE DTL Aspartate Aminotransferase (AST), S 16 8 - 43 U/L 11/05/2023 5:04 PM CLINICAL MANAGER HOME CARE DTL Alkaline Phosphatase, S 81 35 - 104 U/L 11/05/2023 5:04 PM CLINICAL MANAGER HOME CARE DTL Alanine Aminotransferase (ALT), S 16 7 - 45 U/L 11/05/2023 5:04 PM CLINICAL MANAGER HOME CARE DTL Bilirubin, Total, S 1.2 0.0 - 1.2 mg/dL 11/05/2023 5:04 PM CLINICAL MANAGER HOME CARE DTL Blood (Blood, Venous) 11/05/2023 4:03 PM CLINICAL MANAGER HOME CARE 11/05/2023 4:41 PM CLINICAL MANAGER HOME CARE us Kenya Garza M.D. LAB BLOOD ADD-ON Final Result [facility] [address] [place] [address], [facility] DTL [facility] [address] [place] [address] * CT Chest with IV Contrast (03/31/2020 [...] Recently Relevant to Health Maintenance Insurance [employer] Care Teams Water Treatment Plant Mechanic Relationship Specialty Start Date End Date Elsewhere, Pcp PCP - General Internal Medicine 05/29/19
--- OUTSIDE RECORDS SUMMARY | 2025-03-06 03:02 | XMS_ITS | Encounter Summary ---
Author Organization [facility] Address [address] [place] [address] Care Team Providers Care Dry Lumber Grader Name Role Phone Elsewhere, Pcp Primary Care Provider Unavailabl e Reason for Visit * Reason Onset Date Comments DMV form [id number] 03/02/2025 Encounter Details Date Type Department Care Team (Latest Contact Info) Description 03/02/2025 Clinical Communication Department of Ophthalmology in [place], [place] [address] [place] [phone] Kenya Garza M.D. [address] [place] [phone] DMV form [id number] Social History Tobacco Use Types Packs/Day Years Used Date Smoking Tobacco: Former Cigarettes 0.7 70.4 0 03/28/1975 - 01/09/2022 Smokeless Tobacco: Never Comments:On again off again Alcohol Use Standard Drinks/Week Comments Yes 5 (1 standard drink = 0.6 oz pur e alcohol) occasional [facility] Utilities Answer Date Recorded In the past 12 months has [employer], gas, oil, or water [employer] threatened to shut off services in your home? No 01/16/2025 Social Connection and Isolation Panel [NHANES] A nswer Date Recorded In a typical week, how many times do you talk on the phone with family, friends, or neighbors? Once a week 06/27/2020 How often do you get together with friends or re latives? Never 06/27/2020 How often do you attend hoahaoism or anabaptism serv ices? Never 06/27/2020 Do [...] Somewhat hard 06/27/2020 [facility] [place] of Occupat ional Health - Occupational Stress [...] AM CDT Legal Sex Female 4:04 PM CLASSICS TEACHER Gender Identity Female 02/11/2019 3:24 PM CDT Sexual Orientation Straight 02/11/2019 3: 24 PM CDT documented as of this encounter Plan of Treatment Not on file documented as of this encounter Visit Diagnoses Not on filedocumented in this encounter Care Teams Dry Lumber Grader Relationship Specialty Start Date End Date Elsewhere, Pcp PCP - General Internal Medicine 05/29/19 documented as of this encounter
== END 2025-03-06 03:04 | disposition home or self-care (01) ==
LOC: ED 03:00
PROVIDERS: Emergency Provider Family Medicine; PCP Family Medicine
DX: H66.92 Otitis media, unspecified, left ear (principal); H10.32 Unspecified acute conjunctivitis, left eye; H54.61 Unqualified visual loss, right eye, normal vision left eye; R50.9 Fever, unspecified
CPT/HCPCS: 87631; 87651; 99283; A9270

== ENCOUNTER 2025-04-12 07:40 | Outpatient (CLI) | payer MEDICARE, SELFPAY | END 2025-04-12 07:41 | disposition home or self-care (01) | LOC: NFLDREF 04-15 13:04 | PROVIDERS: PCP Family Medicine; Referring Provider Family Medicine; Visit Provider Family Medicine | DX: I10 Essential (primary) hypertension (principal); E78.5 Hyperlipidemia, unspecified; E11.29 Type 2 diabetes mellitus with other diabetic kidney complication; R80.9 Proteinuria, unspecified | CPT/HCPCS: 80053; 80061; 82043; 82570; 82607 ==

== ENCOUNTER 2025-04-14 09:14 | Inpatient (IN) | payer MEDICARE, SELFPAY ==
[2025-04-14] VITALS (17 sets, daily range): BP systolic 108–130; BP diastolic 54–62; PULSE 61–73; RESP 16–22; TEMP 36.3–36.4; O2SAT 82–96; BMI 29.7
--- OUTSIDE RECORDS SUMMARY | 2025-04-14 09:16 | XMS_ITS | Clinical Summary ---
Author Organization [facility] Address [address] [place] [address] Care Team Providers Care Sand Screener Name Role Phone Easton Mccormick MD Unavailable [phone] Katerine Bashir MD Primary Care Provider + Allergies Active Allergy Reactions Criticality Noted Date Comments Wheeler Yefri Itching 09/11/2023 Medications aspirin (ECOTRIN) 81 mg enteric coated tabletIndicatio ns:Non-ST elevation NC (NSTEMI) (HC) Take 1 tablet by mouth once daily with a meal. 0 11/30/19 16 Active atorvastatin (LIPITOR) 40 mg tabletIndicatio ns:Coronary artery disease, angina presence unspecified, unspecified vessel or lesion type, unspecified whether lumbee or transplanted heart Take 1 tablet by mouth at bedtime. 90 tablet 3 09/26/20 16 Active blood sugar diagnostic (ACCU-CHEK DAVID) stripIndication s:Type 2 diabetes mellitus without complication, without long-term current use of insulin (HC) 1 box 3 09/26/20 16 Active lancetsIndicati ons:Type 2 diabetes mellitus without complication, without long-term current use of insulin (HC) Dispense item covered by pt ins. E11.9 NIDDM type II - Test 1 time/day 100 Each 3 09/26/20 16 Active metoprolol succinate (TOPROL XL) 100 mg Sustained-Relea se tabletIndicatio ns:Arterioscler otic heart disease Take 1 Tablet (100 mg) by mouth once daily. 0 05/24/20 23 Active lisinopriL (PRINIVIL; ZESTRIL) 40 mg tablet [...] into right eye two times daily. Active albuterol-iprat ropium (DUONEB) (2.5-0.5 mg) in 3 mL NEBULIZATION [...] to 3 tablets in 15 minutes. Active carboxymethylce llulose sodium (Artificial Tears, cmc,) 1 % drop Place 1 Drop into right eye three times daily. Active predniSONE (DELTASONE) 5 mg tabletIndicatio ns:Interstitial pneumonia of both lungs (HC) Take 3 Tablets (15 mg) by mouth once daily with a meal. 01/14/20 24 Active hydroCHLOROthia zide 25 mg tabletIndicatio ns:HTN (hypertension) Take 1 Tablet (25 mg) by mouth once daily. Schedule cardiology appointment with [facility] for further refills. 90 Tablet 04/03/20 25 Active hydroCHLOROthia zide 25 mg tabletIndicatio ns:HTN (hypertension) Take 1 Tablet (25 mg) by mouth once daily. 90 Tablet 1 01/03/20 25 025 Discontinued Active Problems Problem Noted Date Diagnosed [...] ACP (advance care planning) 09/11/2023 Non-ST elevation NC (NSTEMI) 11/19/2015 Melanoma in situ 06/15/2014 Overview (06/15/2014): Right lower anterior leg and upper right eyelid. 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 Morbid obesity 04/10/2010 Diabetes mellitus, type 2 HTN (hypertension) CAD (coronary artery disease) Hyperlipidemia LDL goal <70 Encounters Date Type Department Care Team Description 04/03/2025 Refill [place] [facility] [address] [place] [address] Shashank Smith MD, PhD Refill Request (Hydrochlorothiazide) [...] on file Legal Sex Female 7:54 AM BUTT MAKER Gender Identity Not on file Sexual Orientation [...] Comments Hepatitis C screening for ag e -79 1975 Pneumococcal series for age 50+ (1 of [...] through age 75 04/27/202004/27 ([facility]) Lipids for age 45-75 09/11/2021 09/11/2016, 05/24/2015, 08/03/2014, Additional history exists DEXA/DXA scan for age 65+ 2022 08/18/2015 Medicare Wellness for age 65+ 2022 COVID-19 vaccine series ( season) 2024 07/18/2021, 02/14/2021, 01/24/2021 Influenza Vaccine (Season Ended) 2025 09/26/2016, 08/26/2015, 08/03/2014, Additional history exists Tdap Completed 03/08/2009 Hepatitis B series for 19+ Completed 08/26, 08/03/2014, 06/15/2014 Goals Goal Patient Goal Type Associated Problems Recent Progress Patient-Stated? Author BLOOD PRESSURE-MA INTAINS BP LESS THAN 130/80 Blood Pressure No Bailey Turpin NP Procedures Procedure Name Priority Date/Time Associated Diagnosis Comments XR MAMMO BILAT SCREEN FFDM (IA) Routine 10/04/2016 9:00 AM BUTT MAKER Visit for screening mammogram LIPID PANEL W REFLEX MEASURED LDL Routine 09/11/2016 9:26 AM BUTT MAKER Hyperlipidemia, unspecified XR DXA BONE DENSITY 2 SITES AXIAL Routine 08/18/2015 9:25 AM CDT Screening for osteoporosis from Last 3 Months or Most Recently Relevant to Health Maintenance Results * XR MAMMO BILAT SCREEN FFDM (10/04/2016 9:00 AM BUTT MAKER) Anatomical Region Laterality Modality BREASTS, Breast Left, Breast Right Bilateral Mammography Narrative 10/04/2016 1:52 PM BUTT MAKER BILATERAL DIGITAL SCREENING MAMMOGRAM WITH COMPUTER-AIDED DETECTION [...] [email or web address] NINFA/gurdeep / Bailey Collins CENTER DIRECTOR MAMMO F inal Result * (ABNORMAL) LIPID PANEL W REFLEX MEASURED LDL (09/11/2016 9:26 AM BUTT MAKER) Pathologist [facility] CHOLESTEROL,TOTAL 159 100 - 199 mg/dL 09/11/2016 10:03 AM [facility] TRIGLYCERIDES 183(H) <150 mg/dL 09/11/2016 10:03 AM [facility] HDL CHOLESTEROL 36(L) >40 mg/dL 6 10:03 AM BUTT MAKER [facility] NON-HDL CHOLESTEROL 123 <145 mg/dl 09/11/2016 10:03 AM [facility] CHOL/HDL RATIO 4.42 <4.50 09/11/2016 10:03 AM BUTT MAKER [facility] LDL CHOLESTEROL 86 <=130 mg/dL 09/11/2016 10:03 AM BUTT MAKER [facility] PATIENT STATUS NOT GIVEN 09/11/2016 10:03 AM BUTT MAKER [facility] Blood BLOOD SPECIMEN / Unknown Venipuncture / Unknown 09/11/2016 9:26 AM BUTT MAKER 09/11/2016 9:26 AM BUTT MAKER Bailey Collins NP CHEMISTRY F inal Result [facility] [address] [facility] [place] [address], [place] [phone] * XR DXA BONE DENSITY 2 SITES (08/18/2015 9:25 AM CDT) Anatomical Region Laterality Modality Spine, HIPS, HIPL, HIPR Other Narrative 08/19/2015 6:36 PM CDT Please see scanned document for results of this study. us Bailey Collins NP DEXA F inal Result from Last 3 Months or Most Recently Relevant to Health Maintenance Insurance [place] [address] [facility] MR MEDICARE PART A HB ONLY Advance Directives [...] Comments Code Status Discussion: Discussed Care Teams Sand Screener Relationship Specialty Start Date End Date Katerine Bashir MD [address] [place] [address] PCP - General Family Practice 12/27/20 Easton Mccormick MD [address] [address] Cardiovascular Disease 09/26/16
--- OUTSIDE RECORDS SUMMARY | 2025-04-14 09:16 | XMS_ITS | Encounter Summary ---
Author Organization [facility] Address [address] [place] [address] Care Team Providers Care Payroll Master Name Role Phone Elsewhere, Pcp Primary Care Provider Unavailabl e Reason for Referral * Outpatient (Routine) - Closed Specialty Diagnoses / Procedures Referred By Apolinar t Referred To Contact Cardiovascular Disease Diagnoses Coronary Artery Disease (Unspecified) Katerine Bashir M.D. [address] [place] [address] Phone: tel: fax: [facility] Referral ID Status Reason Start Date Expiration Date Visits Re quested Visits Authorized [id number] Closed 02/12/2019 02/12/2020 1 1 Encounter Details Date Type Department Care Team (Late st Contact Info) Description 02/12/2019 [facility] [address] [place] [address] Katerine Bashir M.D. [address] [place] [address] Coronary Artery Disease (Unspecified) (Primary Dx) Social History Tobacco Use Types Packs/Day Years Used Date Smoking Tobacco: Never Assessed Comments Unknown Sex and Gender Information Value Date Recorded Sex Assigned at Female 07/06/2020 10:15 AM CDT Legal Sex Female 4:04 PM GRAPHICS ARTIST Gender Identity Female 02/11/2019 3:24 PM CDT Sexual Orientation Straight 02/11/2019 3: 24 PM CDT documented as of this encounter Plan of Treatment Upcoming Encounters Date Type Department Care Team (Latest Contact Info) Description 06/23/2025 9:30 AM CDT Clinical Communication Virtual Review in [place], [place] 200 [place] [address] 06/24/2025 10:00 AM CDT Ancillary Procedure Department of Ophthalmology in [address] [phone] Kenya Garza M.D. [address] [place] [phone] 06/24/2025 10:30 AM CDT Ancillary Procedure Department of Ophthalmology in [address] [phone] Kenya Garza M.D. [address] [place] [phone] 06/24/2025 11:00 AM CDT Ancillary Procedure Department of Ophthalmology in [address] [phone] Kenya Garza M.D. [address] [place] [phone] 06/24/2025 11:15 AM CDT Ancillary Procedure Department of Ophthalmology in [address] [phone] Prakash Graham M.D. [address] [place] [phone] 06/24/2025 1:30 PM CDT Office Visit Department of Ophthalmology in [address] [phone] Prakash Graham M.D. [address] [place] [phone] 06/24/2025 2:00 PM CDT Office Visit Department of Ophthalmology in [address] [place] [phone] Kenya Garza M.D. 200 [place] [address] Scheduled Referrals Name Type Priority Associated Diagnoses [...] documented as of this encounter Care Teams Payroll Master Relationship Specialty Start Date End Date Elsewhere, Pcp PCP - General Internal Medicine 05/29/19 documented as of this encounter
--- OUTSIDE RECORDS SUMMARY | 2025-04-14 09:16 | XMS_ITS | Encounter Summary ---
Author Organization [facility] Address [address] [place] [phone] Care Team Providers Care Double End Tenoner Setter Name Role Phone Elsewhere, Pcp Primary Care Provider Unavailabl e Reason for Visit * Reason Onset Date Comments DMV form [id number] 03/02/2025 Encounter Details Date Type Department Care Team (Latest Contact Info) Description 03/02/2025 Clinical Communication Department of Ophthalmology in [place], [place] [address] [place] [phone] Kenya Garza M.D. [address] [place] [phone] DMV form [id number] Social History Tobacco Use Types Packs/Day Years Used Date Smoking Tobacco: Former Cigarettes 0.7 70.4 0 03/28/1975 - 01/09/2022 Smokeless Tobacco: Never Comments:On again off again Alcohol Use Standard Drinks/Week Comments Yes 5 (1 standard drink = 0.6 oz pur e alcohol) occasional [facility] Utilities Answer Date Recorded In the past 12 months has [employer], gas, oil, or water [employer] threatened to shut off services in your home? No 01/16/2025 Social Connection and Isolation Panel [NHANES] A nswer Date Recorded In a typical week, how many times do you talk on the phone with family, friends, or neighbors? Once a week 06/27/2020 How often do you get together with friends or re latives? Never 06/27/2020 How often do you attend episcopal or restorationism serv ices? Never 06/27/2020 Do [...] and heating? Somewhat hard 06/27/2020 [facility] of Occupat ional Health - Occupational Stress [...] living situation today? I have a [facility] place to live 01/16/2025 Education Answer Date Recorded What is the highest level of school you have completed or the highest degree you have received? 12th grade 06/27/2020 Comments No Sex and Gender Information Value Date Recorded Sex Assigned at Female 07/06/2020 10:15 AM CDT Legal Sex Female 4:04 PM CHEESE WRAPPER Gender Identity Female 02/11/2019 3:24 PM CDT Sexual Orientation Straight 02/11/2019 3: 24 PM CDT documented as of this encounter Plan of Treatment Upcoming Encounters Date Type Department Care Team (Latest Contact Info) Description 06/23/2025 9:30 AM CDT Clinical Communication Virtual Review in [place], [place] 200 [place] [address] 06/24/2025 10:00 AM CDT Ancillary Procedure Department of Ophthalmology in [place], [place] [address] [place] [phone] Kenya Garza M.D. [address] [place] [phone] 06/24/2025 10:30 AM CDT Ancillary Procedure Department of Ophthalmology in [place], [place] [address] [place] [phone] Kenya Garza M.D. [address] [place] [phone] 06/24/2025 11:00 AM CDT Ancillary Procedure Department of Ophthalmology in [place], [place] [address] [place] [phone] Kenya Garza M.D. [address] [place] [phone] 06/24/2025 11:15 AM CDT Ancillary Procedure Department of Ophthalmology in [place], [place] [address] [place] [phone] Prakash Graham M.D. [address] [place] [phone] 06/24/2025 1:30 PM CDT Office Visit Department of Ophthalmology in [place], [place] [address] [place] [phone] Prakash Graham M.D. [address] [place] [phone] 06/24/2025 2:00 PM CDT Office Visit Department of Ophthalmology in [place], [place] [address] [place] [phone] Kenya Garza M.D. [address] [place] [phone] documented as of this encounter Visit Diagnoses Not on filedocumented in this encounter Care Teams Double End Tenoner Setter Relationship Specialty Start Date End Date Elsewhere, Pcp PCP - General Internal Medicine 05/29/19 documented as of this encounter
--- OUTSIDE RECORDS SUMMARY | 2025-04-14 09:17 | XMS_ITS | Encounter Summary ---
Author Organization [facility] Address [address] [place] [address] Care Team Providers Care Special Effects Person Name Role Phone Elsewhere, Pcp Primary Care Provider Unavailabl e Reason for Referral * Outpatient (Routine) - Closed Specialty Diagnoses / Procedures Referred By Apolinar t Referred To Contact Cardiovascular Disease Diagnoses Coronary Artery Disease (Unspecified) Katerine Bashir M.D. [address] [place] [address] Phone: tel: fax: [facility] Referral ID Status Reason Start Date Expiration Date Visits Re quested Visits Authorized [id number] Closed 02/10/2019 02/10/2020 3 3 Encounter Details Date Type Department Care Team (Late st Contact Info) Description 02/10/2019 [facility] [address] [place] [address] Katerine Bashir M.D. 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 [address] [place] [phone] 06/24/2025 10:30 AM CDT Ancillary Procedure Department of Ophthalmology in [address] [phone] Kenya Garza M.D. [address] [place] [phone] 06/24/2025 11:00 AM CDT Ancillary Procedure Department of Ophthalmology in [address] [address] Kenya Garza M.D. [address] [place] [phone] 06/24/2025 11:15 AM CDT Ancillary Procedure Department of Ophthalmology in [address] [phone] Prakash Graham M.D. [address] [place] [phone] 06/24/2025 1:30 PM CDT Office Visit Department of Ophthalmology in [address] [address] Prakash Graham M.D. [address] [place] [phone] 06/24/2025 2:00 PM CDT Office Visit Department of Ophthalmology in [address] [place] [address] Kenya Garza M.D. 200 [place] [address] Scheduled Referrals Name Type Priority Associated Diagnoses [...] documented as of this encounter Care Teams Special Effects Person Relationship Specialty Start Date End Date Elsewhere, Pcp PCP - General Internal Medicine 05/29/19 documented as of this encounter
--- OUTSIDE RECORDS SUMMARY | 2025-04-14 09:17 | XMS_ITS | Encounter Summary ---
Author Organization [facility] Address [address] [place] [address] Care Team Providers Care Crime Lab Technician Name Role Phone Elsewhere, Pcp Primary Care Provider Unavailabl e Encounter Details Date Type Department Care Team (Late st Contact Info) Description 03/22/2025 Orders Only Department of Ophthalmology in [place], [place] [address] [place] [address] Kenya Garza M.D. [address] [place] [phone] Social History Tobacco Use Types Packs/Day Years Used Date Smoking Tobacco: Former Cigarettes 0.7 70.4 0 03/28/1975 - 01/09/2022 Smokeless Tobacco: Never Comments:On again off again Alcohol Use Standard Drinks/Week Comments Yes 5 (1 standard drink = 0.6 oz pur e alcohol) occasional C Utilities Answer Date Recorded In the past 12 months has [employer], gas, oil, or water company threatened [...] How often do you attend yazdanism or roman catholic serv ices? Never 06/27/2020 [...] Somewhat hard 06/27/2020 [facility] of Occupat ional Health - Occupational Stress [...] situation today? I have a [facility] place to live 01/16/2025 Education Answer Date Recorded What is the highest level of school you have completed or the highest degree you have received? 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 [address] [place] [phone] 06/24/2025 10:30 AM CDT Ancillary Procedure Department of Ophthalmology in [address] [phone] Kenya Garza M.D. [address] [place] [phone] 06/24/2025 11:00 AM CDT Ancillary Procedure Department of Ophthalmology in [place], [place] [address] [place] [phone] Kenya Garza M.D. [address] [place] [phone] 06/24/2025 11:15 AM CDT Ancillary Procedure Department of Ophthalmology in [place], [place] [address] [place] [phone] Prakash Graham M.D. [address] [place] [phone] 06/24/2025 1:30 PM CDT Office Visit Department of Ophthalmology in [place], [place] [address] [place] [phone] Prakash Graham M.D. [address] [place] [phone] 06/24/2025 2:00 PM CDT Office Visit Department of Ophthalmology in [place], [place] [address] [place] [phone] Kenya Garza M.D. [address] [place] [phone] documented as of this encounter Visit Diagnoses Not on filedocumented in this encounter Care Teams Crime Lab Technician Relationship Specialty Start Date End Date Elsewhere, Pcp PCP - General Internal Medicine 05/29/19 documented as of this encounter
--- OUTSIDE RECORDS SUMMARY | 2025-04-14 09:17 | XMS_ITS | Clinical Summary ---
Author Organization [facility] Address [address] [place] [address] Care Team Providers Care Algology Teacher Name Role Phone Elsewhere, Pcp Primary Care Provider Unavailabl e Source Comments Patient records contain information from all sites at [facility]. For routine questions regarding patient records, call [phone] during business hours, M-F 8:00 AM - 5:00 PM Central Time. Record requests for emergency care only can be directed to [phone] at any time.[facility] Allergies Active Allergy Reactions Criticality Noted Date Comments Aller Xt-[place] Pollen[place] Itching,Rash,Bliste rs High 06/21/2020 [place] Methotrexate Other [...] Encounters Date Type Department Care Team Description 03/29/2025 Clinical Communication Department of Ophthalmology in [place], [place] [address] [place] [phone] Prakash Graham M.D. 03/22/2025 Orders Only Department of Ophthalmology in [place], [place] [address] [place] [phone] Kenya Garza M.D. 03/02/2025 Clinical Communication Department of Ophthalmology in [address] [phone] Kenya Garza M.D. DMV form [id number] 01/22/2025 Clinical Communication Department of Ophthalmology in [place], [place] [address] [place] [phone] Shahnaz Amato, C.O.A. 01/22/2025 Orders Only Department of Ophthalmology in [address] [phone] Shahnaz Amato, C.O.A. 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 Necrosis Retinal Acute Right (Primary Dx) 01/19/2025 10:00 AM CDT Ancillary Procedure Department of Ophthalmology in [place], [place] [address] [place] [phone] Prakash Graham M.D. Panuveitis Right; Necrosis Retinal Acute Right 01/19/2025 Ancillary Procedure Department of Ophthalmology from Last 3 Months Family History Medical History Relation Name Comments Lymphoma Brother Kannan Thibodeaux 2018 Prostate cancer Father Rossho 2000 Stroke Father Rossho Coronary artery disease Mother Afia Thibodeaux Not sure of dates no bypass Diabetes Mother Afia Thibodeaux Heart attack Mother Afia Thibodeaux Relation Name Status Comments Brothhilda Thibodeaux Father Podho Mother Afia Thibodeaux Social History Tobacco Use Types Packs/Day Years Used Date Smoking Tobacco: Former Cigarettes 0.7 70.4 0 03/28/1975 - 01/09/2022 Smokeless Tobacco: Never Tobacco Cessation:Counseling Given: Not Answered Comments:On again off again Alcohol Use Standard Drinks/Week Comments Yes 5 (1 standard drink = 0.6 oz pur e alcohol) occasional C Utilities Answer Date Recorded In the past 12 months has [employer] electric, gas, oil, or water [employer] threatened to shut off services in your home? No 01/16/2025 Social Connection and Isolation Panel [NHANES] A nswer Date Recorded In a typical week, how many times do you talk on the phone with family, friends, or neighbors? Once a week 06/27/2020 How often do you get together with friends or re latives? Never 06/27/2020 How often do you attend presybeterian or temple serv ices? Never 06/27/2020 Do [...] Somewhat hard 06/27/2020 [facility] [place] of Occupat ional Health - Occupational Stress [...] AM CDT Legal Sex Female 4:04 PM AUDIOVISUAL TECH Gender Identity Female 02/11/2019 3:24 PM CDT [...] AM CDT Clinical Communication Virtual Review in [address] [phone] 06/24/2025 10:00 AM CDT Ancillary Procedure Department of Ophthalmology in [address] [phone] Kenya Garza M.D. [address] [place] [phone] 06/24/2025 10:30 AM CDT Ancillary Procedure Department of Ophthalmology in [address] [phone] Kenya Garza M.D. [address] [place] [phone] 06/24/2025 11:00 AM CDT Ancillary Procedure Department of Ophthalmology in [address] [phone] Kenya Garza M.D. [address] [place] [phone] 06/24/2025 11:15 AM CDT Ancillary Procedure Department of Ophthalmology in [place], [place] [address] [place] [address] Prakash Graham M.D. [address] [place] [phone] 06/24/2025 1:30 PM CDT Office Visit Department of Ophthalmology in [place], [place] [address] [place] [phone] Prakash Graham M.D. [address] [place] [phone] 06/24/2025 2:00 PM CDT Office Visit Department of Ophthalmology in [place], [place] [address] [place] [phone] Kenya Garza M.D. [address] [place] [phone] Health Maintenance Due Date Last Done Comments [...] this topic Medical Devices Implanted Type Area Production Editor Device Identifier Shelf Expiration Date Model / Serial / Lot Slv Sclr Rnd 1x2.1x30 - [id number] Implanted:Qty : 1 on 06/01/2024 by Prakash Graham M.D. at [facility] Ocular (Eye) Implant Right: Eye [employer] 11/27/2030 [id number] / / [id number] Band Implanted:Qty : 1 on 06/01/2024 by Prakash Graham M.D. at [facility] Ocular (Eye) Implant Right: Eye ZEISS [id number] / / [id number] Stent Other Stent Other Chest Description:Has stent [...] METABOLIC PANEL, S/P Routine 11/05/2023 4:03 PM AUDIOVISUAL TECH Uveitis CT CHEST WITH IV CONTRAST RAD [...] overread is required please follow defined workflow. us Provider Not In System IMG CT PROCEDURES Final R esult Performing Organization Address [facility] Co de Phone Number IIMS NA * CT SOFT TISSUE NECK W CON-Outside CT Neuro (02/04/2025 10:45 AM CDT) Narrative IIMS - 02/10/2025 10:13 AM CDT This order has been created and auto-finalized to support the import of outside images. If available, original interpretation can be found on the Media Tab in Chart Review, in Document Viewer, as an image in InfinityView or as an Addendum. If a re-interpretation or overread is required please follow defined workflow. us Provider Not In System IMG CT PROCEDURES Final R esult IIMS NA * Optical Coherence Tomography - Macula/Retina - OU - Both Eyes (01/19/2025 10:15 AM CDT) Narrative OPHTHALMOLOGY IMAGING EXAM - 01/19/2025 11:48 AM CDT Right Eye OCT device used was Spectralis . Left Eye OCT device used was Spectralis . Notes DH Ischemic OD with thinning, OS stable us Prakash Graham M.D. OPHTH TOMOGRAPHY Final Resu lt Performing Organization Address [facility] Co de Phone Number OPHTHALMOLOGY [...] NON RAD IMAGING PROCE DURES Final Result Performing Organization Address [facility] de Phone Number IIMS NA * (ABNORMAL) Glucose, POCT (06/01/2024 6:36 PM CDT) Glucose, POCT, B 207(H) 70 - 140 mg/dL 06/01/2024 6:46 PM CDT PCLX Site Capillary 06/01/2024 6:46 PM CDT PCLX Blood 06/01/2024 6:36 PM CDT 06/01/2024 6:47 PM CDT Unknown Provider LAB POCT ORDERABLES-MANUAL Shakira l Result Performing Organization Address [facility] Co de Phone Number POC [facility] [address] [place] [address], [facility] PCLX [facility] [place] POC [address] [place] [address] * (ABNORMAL) Comprehensive Metabolic Panel (11/05/2023 4:03 PM AUDIOVISUAL TECH) Potassium, S 4.4 3.6 - 5.2 mmol/L 11/05/2023 5:04 PM AUDIOVISUAL TECH DTL Sodium, S 139 135 - 145 mmol/L 11/05/2023 5:04 PM AUDIOVISUAL TECH DTL Chloride, S 101 98 - 107 mmol/L 11/05/2023 5:04 PM AUDIOVISUAL TECH DTL Bicarbonate, S 27 22 - 29 mmol/L 11/05/2023 5:04 PM AUDIOVISUAL TECH DTL Anion Gap 11 7 - 15 11/05/2023 5:04 PM AUDIOVISUAL TECH DTL BUN (Blood Urea Nitrogen), S 17 6 - 21 mg/dL 11/05/2023 5:04 PM AUDIOVISUAL TECH DTL Creatinine 0.76 0.59 - 1.04 mg/dL 11/05/2023 5:04 PM AUDIOVISUAL TECH DTL Estimated GFR (eGFR) 86 >=60 mL/min/BS A 11/05/2023 5:04 PM AUDIOVISUAL TECH DTL Comment: Estimated GFR calculated using the 2020 CKD_EPI creatinine equation. Calcium, Total, S 10.1 8.8 - 10.2 mg/dL 11/05/2023 5:20 PM AUDIOVISUAL TECH DTL Glucose, S 104 70 - 140 mg/dL 11/05/2023 5:04 PM AUDIOVISUAL TECH DTL Protein, Total, S 6.1(L) 6.3 - 7.9 g/dL 11/05/2023 5:04 PM AUDIOVISUAL TECH DTL Albumin, S 4.3 3.5 - 5.0 g/dL 11/05/2023 5:04 PM AUDIOVISUAL TECH DTL Aspartate Aminotransferase (AST), S 16 8 - 43 U/L 11/05/2023 5:04 PM AUDIOVISUAL TECH DTL Alkaline Phosphatase, S 81 35 - 104 U/L 11/05/2023 5:04 PM AUDIOVISUAL TECH DTL Alanine Aminotransferase (ALT), S 16 7 - 45 U/L 11/05/2023 5:04 PM AUDIOVISUAL TECH DTL Bilirubin, Total, S 1.2 0.0 - 1.2 mg/dL 11/05/2023 5:04 PM AUDIOVISUAL TECH DTL Blood (Blood, Venous) 11/05/2023 4:03 PM AUDIOVISUAL TECH 11/05/2023 4:41 PM AUDIOVISUAL TECH us Kenya Garza M.D. LAB BLOOD ADD-ON Final Result [facility] [address] [place] [address], [facility] DTL [facility] [address] [place] [address] * CT Chest with IV Contrast (03/31/2020 [...] Clinical correlation is necessary. Emily Kraus M.D. [facility] CT PROCEDURES Final Resul t from Last 3 Months or Most Recently Relevant to [place] [address] [facility] Care Teams Algology Teacher Relationship Specialty Start Date End Date Elsewhere, Pcp PCP - General Internal Medicine 05/29/19
--- OUTSIDE RECORDS SUMMARY | 2025-04-14 09:17 | XMS_ITS | Encounter Summary ---
Author Organization [facility] Address [address] [place] [address] Care Team Providers Care Nut Roaster Name Role Phone Elsewhere, Pcp Primary Care Provider Unavailabl e Encounter Details Date Type Department Care Team (Latest Contact Info) Description 03/29/2025 Clinical Communication Department of Ophthalmology in [place], [place] [address] [place] [address] Prakash Graham M.D. [address] [place] [phone] Social History Tobacco Use Types Packs/Day Years Used Date Smoking Tobacco: Former Cigarettes 0.7 70.4 0 03/28/1975 - 01/09/2022 Smokeless Tobacco: Never Comments:On again off again Alcohol Use Standard Drinks/Week Comments Yes 5 (1 standard drink = 0.6 oz pur e alcohol) occasional C Utilities Answer Date Recorded In the past 12 months has [employer] electric, gas, oil, or water company threatened [...] How often do you attend adventist or rastafarian serv ices? Never 06/27/2020 Do [...] heating? Somewhat hard 06/27/2020 [facility] [place] of Occupat ional Health - Occupational Stress [...] [facility] place to live 01/16/2025 Education Answer Date Recorded What is the highest level of school you have completed or the highest degree you have received? 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 [address] [place] [phone] 06/24/2025 10:30 AM CDT Ancillary Procedure Department of Ophthalmology in [address] [phone] Kenya Garza M.D. [address] [place] [phone] 06/24/2025 11:00 AM CDT Ancillary Procedure Department of Ophthalmology in [place], [place] [address] [place] [phone] Kenya Garza M.D. [address] [place] [phone] 06/24/2025 11:15 AM CDT Ancillary Procedure Department of Ophthalmology in [place], [place] [address] [place] [phone] Prakash Graham M.D. [address] [place] [phone] 06/24/2025 1:30 PM CDT Office Visit Department of Ophthalmology in [place], [place] [address] [place] [phone] Prakash Graham M.D. [address] [place] [phone] 06/24/2025 2:00 PM CDT Office Visit Department of Ophthalmology in [place], [place] [address] [place] [phone] Kenya Garza M.D. [address] [place] [phone] documented as of this encounter Visit Diagnoses Not on filedocumented in this encounter Care Teams Nut Roaster Relationship Specialty Start Date End Date Elsewhere, Pcp PCP - General Internal Medicine 05/29/19 documented as of this encounter
--- NOTE | 2025-04-14 09:47 | CRLHL7_ITS ---
For Patients: As a result of the Century Cures Act, medical imaging exams and procedure reports are released immediately into your electronic medical record. You may view this report before your referring provider. If you have questions, please contact your health care provider. INDICATION: Dyspnea COMPARISON: None TECHNIQUE: Two views of the chest were acquired FINDINGS: TUBES AND LINES: None. HEART AND MEDIASTINUM: The heart size is normal. The mediastinal contour appears normal for patient age.Postoperative changes. Median sternotomy LUNGS AND PLEURAL SPACES: Bibasilar airspace opacities, right greater than left.No pleural effusion or pneumothorax. OSSEOUS STRUCTURES: Age-appropriate appearance. No acute focal finding. IMPRESSION: Heart size normal. Prior median sternotomy. Bibasilar airspace opacities, right greater than left. This could be atelectasis or an infectious/inflammatory process. No pleural effusion or pneumothorax. Dictated by Maxim Fernandez MD @ 04/14/2025 10:37:03 AM (Electronically Signed)
[2025-04-14] MEDS: predniSONE 10 MG TABLET 50 MG PO (09:50)
--- NOTE | 2025-04-14 10:08 | ED.GENADULT ---
HPI - General Adult General Chief complaint: Shortness of Breath/Dyspnea Stated complaint: Low Oxygen Time Seen by Provider: 04/14/25 09:17 Source: patient Mode of arrival: ambulatory Limitations: no limitations History of Present Illness HPI narrative: Patient is a genaro 69-year-old female presenting today with shortness of breath. Patient states that she has been short of breath for approximately a month and a half. She states that when this all started she was put on Augmentin for 10 days and this did nothing, she was recently put on azithromycin for 5 days and this did nothing either. She feels short of breath with light physical activity and at rest, activity does make it worse. She has a chronic cough that is productive with thick sputum. She does take NyQuil at night so she has been able to sleep generally well. Patient does have a history of COPD, she has been using a nebulizer twice per day and her albuterol inhaler throughout the day, both are above her baseline use. She is also on fluticasone propionate and an Ellipta inhaler. She denies chest pain. She denies feeling dizzy or lightheaded. She denies fevers or chills. No changes in her appetite. Patient had a clinic appointment this morning where she was found to be quite hypoxic in the mid 80s and she was sent to the emergency department for further management. Patient is not on oxygen at home and has not needed it in the past. Related Data Home Medications ?Medication ?Instructions ?Recorded ?Confirmed aspirin 81 mg tablet,delayed 81 mg PO DAILY 04/26/22 04/14/25 release ascorbic acid (vitamin C) 500 mg 500 mg PO DAILY 01/17/24 04/14/25 chewable tablet glycerin 0.5 % eye drops (Biotrue 1 drp ophthalmic (eye) TID 01/17/24 04/14/25 Hydration Boost) valacyclovir 1 gram tablet 1,000 mg PO DAILY 01/17/24 04/14/25 hydrochlorothiazide 25 mg tablet 25 mg PO DAILY 04/14/25 04/14/25 prednisolone acetate 1 % eye 1 drp ophthalmic (eye-right) DAILY 04/14/25 04/14/25 drops,suspension (Pred Forte) Previous Rx's ?Medication ?Instructions ?Recorded nitroglycerin 0.4 mg sublingual 0.4 mg sublingual Q5-15M PRN chest 06/10/23 tablet pain #30 tabs albuterol sulfate 2.5 mg/3 mL 2.5 mg (3 mL) inhalation Q4H PRN 01/17/24 (0.083 %) solution for nebulization bronchospasm #90 mL albuterol sulfate 90 mcg/actuation 2 puff inhalation Q4H PRN 01/17/24 aerosol inhaler shortness of breath or wheezing #25.5 grams Blood Glucose Meter #1 ea 07/28/24 blood sugar diagnostic (Blood #200 ea 07/28/24 Glucose Test strips) lancets (Accu-Chek Softclix #200 ea 02/01/25 Lancets) amlodipine 5 mg tablet 5 mg PO DAILY #90 tabs 04/14/25 atorvastatin 40 mg tablet 40 mg PO HS #90 tabs 04/14/25 fexofenadine 180 mg tablet 180 mg PO DAILY #90 tabs 04/14/25 ([facility]) fluticasone propionate 50 1 spray intranasal DAILY #16 grams 04/14/25 mcg/actuation nasal spray,suspension glimepiride 1 mg tablet 1 mg PO QAM #90 tabs 04/14/25 lisinopril 20 mg tablet 20 mg PO DAILY #90 tabs 04/14/25 metformin 500 mg tablet 1,000 mg (2 x 500 mg) PO BIDWMEAL 04/14/25 #360 tabs metoprolol succinate 100 mg 100 mg PO DAILY #90 tabs 04/14/25 tablet,extended release 24 hr umeclidinium 62.5 mcg-vilanterol 1 inh inhalation DAILY #60 ea 04/14/25 25 mcg/actuation powdr for inhalation (Anoro Ellipta) Allergies Allergy/AdvReac Type Severity Reaction Status Date / Time methotrexate Allergy Intermediate Verified 04/14/25 08:06 Aller Xt-[place] AdvReac Intermediate Unknown Uncoded 04/14/25 08:06 [place] Review of Systems Status of ROS: Reports: 10 or more systems reviewed and unremarkable except as noted in History and below [facility] Medical History Paroxysmal atrial fibrillation ?I48.0 - Paroxysmal atrial fibrillation (ICD-10) Headache ?R51.9 - Headache, unspecified (ICD-10) PRES (posterior reversible encephalopathy syndrome) (~03/2024) ?I67.83 - Posterior reversible encephalopathy syndrome (ICD-10) Mastoiditis of left side ?H70.92 - Unspecified mastoiditis, left ear (ICD-10) Acute sinusitis ?J01.90 - Acute sinusitis, unspecified (ICD-10) PRES (posterior reversible encephalopathy syndrome) (12/2023) ?I67.83 - Posterior reversible encephalopathy syndrome (ICD-10) Hypertension ?I10 - Essential (primary) hypertension (ICD-10) Hypomagnesemia ?E83.42 - Hypomagnesemia (ICD-10) Weight loss, abnormal ?R63.4 - Abnormal weight loss (ICD-10) Elevated LFTs ?R79.89 - Other specified abnormal findings of blood chemistry (ICD-10) Acute interstitial pneumonitis (09/11/23) ?J84.114 - Acute interstitial pneumonitis (ICD-10) History of nuclear stress test (11/19/23) ?Z92.89 - Personal history of other medical treatment (ICD-10) Environmental allergies ?Z91.09 - Other allergy status, other than to drugs and biological substances (ICD-10) Hypercalcemia (08/30/23) ?E83.52 - Hypercalcemia (ICD-10) Respiratory failure ?J96.90 - Respiratory failure, unspecified, unspecified whether with hypoxia or hypercapnia (ICD-10) Dyslipidemia ?E78.5 - Hyperlipidemia, unspecified (ICD-10) Microalbuminuria due to type 2 diabetes mellitus ?E11.29 - Type 2 diabetes mellitus with other diabetic kidney complication (ICD-10) ?R80.9 - Proteinuria, unspecified (ICD-10) Lymphoma, small lymphocytic (2018) ?C83.00 - Small cell B-cell lymphoma, unspecified site (ICD-10) Type 2 diabetes mellitus ?E11.9 - Type 2 diabetes mellitus without complications (ICD-10) Chronic obstructive pulmonary disease (06/2020) ?J44.9 - Chronic obstructive pulmonary disease, unspecified (ICD-10) Diarrhea ?R19.7 - Diarrhea, unspecified (ICD-10) Bullous pemphigoid (~12/2022) ?L12.0 - Bullous pemphigoid (ICD-10) Splenomegaly (07/2022) ?R16.1 - Splenomegaly, not elsewhere classified (ICD-10) Elevated liver transaminase level ?R74.01 - Elevation of levels of liver transaminase levels (ICD-10) Ventricular bigeminy (2018) ?I49.8 - Other specified cardiac arrhythmias (ICD-10) History of bone density study (03/2023) ?Z92.89 - Personal history of other medical treatment (ICD-10) Vitamin D deficiency ?E55.9 - Vitamin D deficiency, unspecified (ICD-10) No retinopathy on exam (03/2021) ?Z01.00 - Encounter for examination of eyes and vision without abnormal findings (ICD-10) History of myocardial infarction (11/21/15) ?I25.2 - Old myocardial infarction (ICD-10) History of malignant neoplasm of skin ?Z85.828 - Personal history of other malignant neoplasm of skin (ICD-10) Frequent ventricular premature beats ?I49.3 - Ventricular premature depolarization (ICD-10) Coronary artery disease (2000) ?I25.10 - Atherosclerotic heart disease of [place] coronary artery without angina pectoris (ICD-10) Surgical History History of eye surgery (~06/01/24) ?Z98.890 - Other specified postprocedural states (ICD-10) History of bronchoscopy (08/2023) ?Z98.890 - Other specified postprocedural states (ICD-10) History of four vessel coronary artery bypass graft (2000) ?Z95.1 - Presence of aortocoronary bypass graft (ICD-10) History of coronary artery stent placement (11/21/15) ?Z95.5 - Presence of coronary angioplasty implant and graft (ICD-10) Family History Father Stroke, Onset Age: 70 Prostate cancer Mother Diabetes Myocardial infarction, Onset Age: 65 Daughter Stroke, Onset Age: 36 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: , 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, 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 SMOKER: Tobacco abuse- 10/day, 32 pack years~ resolved 01/16 Does not exercise- active in garden and yard Social drinker- 2/week Past problems: Non-smoker- quit 2000, hx 30 pack years What is your current living situation?: I presently have a place to live Problems where you live: no known problems Problems where you live details: None In the past 12 months, utilities in danger of being shut off: no In past 12 months, lack of transportation kept you from medical appts, meetings, work, or getting things needed for daily living: no In the past 12 mos, have been you worried that your food would run out before you had money to buy more?: never true In the past 12 mos, the food you bought just didn't last and you didn't have money to buy more?: never true Highest level of school completed/degree received: high school graduate Smoking Status: Former smoker What tobacco products do you use: cigarettes Smoking quit date/years: <= 15 years ago Do you use any of these nicotine containing products: None Second hand tobacco smoke exposure: No How often do you have a drink containing alcohol: 2-4 times a month Alcohol type: beer and hard liquor Alcohol type details: stopped alcohol 5 weeks ago How many standard drinks containing alcohol do you have on a typical day: 1 or 2 How often do you have six or more drinks on one occasion: Less than monthly AUDIT-C Alcohol total score: 3 Non-prescribed substance use: denies use Caffeine: Yes How often does anyone, including family, friends and others, physically hurt you: never How often does anyone, including family, friends and others, insult or talk down to you: never How often does anyone, including family, friends and others, threaten you with harm: never How often does anyone, including family, friends and others, scream or curse at you: never service: No Exam Narrative: Exam Narrative: Well-nourished well-developed patient in no acute distress. Alert and oriented. Answers questions appropriately. Mood and affect are appropriate. Thoughts are goal oriented and rational. No tangential or magical thinking noted. Patient cannot complete a full sentence without catching her breath. HEENT: Normocephalic atraumatic. Poor dentition. Pupils are equally round reactive to light. Extraocular muscles are intact. Conjunctivae are moist without any icterus noted. Moist mucous membranes. Neck is soft. Cardiovascular: Heart is regular rate and rhythm S1 and S2 are present without any murmurs. Lungs: Patient has diffuse wheezing and rhonchi bilaterally. She has basilar crackles also. Abdomen: Soft and nontender nondistended with normal bowel sounds. Extremities: Bilateral lower extremities are without edema. Skin: Well perfused without any obvious rashes. Const: Vital Signs, click to edit/add: Vital Signs - 24 hr 04/14/25 09:24 04/14/25 09:47 Temperature 97.3 F L Pulse Rate [Pulse Oximeter] 64 Respiratory Rate 22 Blood Pressure [Le ft Upper Arm] 130/61 Pulse Oximetry 82 L 90 Oxygen Delivery Me thod Room Air Course Course ED Course: Patient was placed on oxygen and started on a DuoNeb and 50 mg of oral prednisone. Oxygen saturation increased to 90% on 3 L nasal cannula. EKG, read by me, shows normal sinus rhythm, pulse 62. Normal QRS QT and FL intervals. Chest x-ray, read by me, shows bilateral airspace opacities unclear if that is infectious or just atelectasis. Radiologic over-read did not offer clarification. CBC shows significantly elevated white cell count of 56.9-baseline is around 20 the 30. No significant left shift. Normal hemoglobin. Normal D-dimer. VBG without significant abnormality, HC03 just slightly elevated at 29. Normal chemistries. Normal lactate. Normal LFTs. CRP minimally elevated at 1.6. BNP only 367. Negative procalcitonin. Normal troponin. Negative triple swab. After the DuoNeb her wheezing had subsided but the rhonchi remain. Her oxygen saturation went up to 95% and so we were able to wean the O2 down to 2 L nasal cannula. Etiology of hypoxia unclear, CT chest obtained. Patient will be admitted at this time for further management. Vital Signs Vital signs: Initial Vital Signs Temperature 97.3 F L 04/14/25 09:24 Temperature Source Temporal Artery Scan 04/14/25 09:24 Pulse Rate 64 04/14/25 09:24 Respiratory Rate 22 04/14/25 09:24 Blood Pressure 130/61 04/14/25 09:24 Blood Pressure Mean 84 04/14/25 09:24 Blood Pressure Position Sitting 04/14/25 09:24 Pulse Oximetry 82 L 04/14/25 09:24 Oxygen Delivery Method Room Air 04/14/25 09:24 Vital Signs Temperature 97.3 F L 04/14/25 09:24 Pulse Rate 64 04/14/25 09:24 Respiratory Rate 22 04/14/25 09:24 Blood Pressure 130/61 04/14/25 09:24 Pulse Oximetry 82 L 04/14/25 09:24 Oxygen Delivery Method Room Air 04/14/25 09:24 Temperature 97.3 F L 04/14/25 09:24 Pulse Rate 64 04/14/25 09:24 Respiratory Rate 22 04/14/25 09:24 Blood Pressure 130/61 04/14/25 09:24 Pulse Oximetry 90 04/14/25 09:47 Oxygen Delivery Method Room Air 04/14/25 09:24 Medical Decision Making MDM Narrative Medical decision making narrative: 69-year-old female presenting with hypoxia. Patient will be admitted for further management. Medical Records Medical records reviewed: Yes I reviewed the patient's medical records Lab Data Lab results reviewed: Yes I reviewed the patient's lab results Labs: Lab Results 04/14/25 Range/Units 10:10 WBC 56.96 H* (4.50-11.00) K/uL RBC 4.63 (4.00-5.20) m/uL Hgb 13.6 (12.0-16.0) gm/dL Hct 43.2 (33.0-51.0) % MCV 93 (80-100) fL MCH 29 (26-34) pg MCHC 32 (32-36) gm/dL RDW Coeff of Shabana 14.7 (11.5-15.5) % Plt Count 293 (140-440) K/uL Neut % (Auto) 18.3 L (42.0-72.0) % Lymph % (Auto) 67.9 H (20-44) % [place]on % (Auto) 11.0 (0.0-11.0) % Eos % (Auto) 0.6 (0.0-7.0) % Baso % (Auto) 0.2 (0.0-3.0) % Neut # (Auto) 10.40 H (1.7-7.0) K/uL Lymph # (Auto) 38.70 H (0.90-2.90) K/uL Weston # (Auto) 6.30 H (0.00-0.90) K/UL Eos # (Auto) 0.30 (0.00-0.50) K/uL Baso # (Auto) 0.10 (0.00-0.30) K/uL Abs Immat Gran (auto) 1.10 H (0.00-0.30) K/uL Imm/Tot Granulo (auto) 2.0 % Diff Slide Review Acceptable Review (Acceptable) D-Dimer Quant (PE/DVT) 0.38 (0.00-0.50) ug/ml VBG pH 7.368 (7.32-7.43) VBG pCO2 50 (40-50) mmHG VBG pO2 38.2 (25-47) mmHG VBG HCO3 29 H (21-28) mmol/L Sodium 137 (135-149) mmol/L Potassium 4.2 (3.6-5.1) mmol/L Chloride 100 (96-114) mmol/L Carbon Dioxide 28 (20-32) mmol/L Anion Gap 9 (7-15) mEq/L BUN 19 (7-30) mg/dL Creatinine 0.7 (0.5-1.5) mg/dL Estimated Creat Clear 51.11 Estimated GFR 95 ml/min Glucose 147 H (60-115) mg/dL Lactate 1.4 (0.5-1.9) mmol/L Calcium 10.2 (8.4-10.6) mg/dL Magnesium 1.6 (1.5-2.6) mg/dL Total Bilirubin 1.4 (0.1-1.5) mg/dL Direct Bilirubin 0.3 (0.0-0.5) mg/dL AST 34 (12-35) U/L ALT 21 (4-35) U/L Alkaline Phosphatase 105 (40-150) U/L Troponin I 0.02 (0.01-0.04) ng/mL C-Reactive Protein 1.6 H (0.5-1.0) mg/dL NT-Pro-B Natriuret Pep 367 H (See Note) pg/mL Total Protein 7.1 (6.0-8.3) g/dL Albumin 4.6 (3.3-5.0) g/dL Procalcitonin < 0.03 L (<0.50) ng/mL SARS-CoV-2 (PCR) Negative SARS-CoV-2 (Negative) Monoscreen Negative (Negative) Influenza Type A (PCR) Negative PCR FLU A (Negative) Influenza Type B (PCR) Negative PCR FLU B (Negative) RSV (PCR) Negative PCR RSV (Negative) Imaging Data Chest x-ray: Attestation: I have reviewed the pertinent imaging results. Radiologist's impression: INDICATION: Dyspnea COMPARISON: None TECHNIQUE: Two views of the chest were acquired FINDINGS: TUBES AND LINES: None. HEART AND MEDIASTINUM: The heart size is normal. The mediastinal contour appears normal for patient age.Postoperative changes. Median sternotomy LUNGS AND PLEURAL SPACES: Bibasilar airspace opacities, right greater than left.No pleural effusion or pneumothorax. OSSEOUS STRUCTURES: Age-appropriate appearance. No acute focal finding. IMPRESSION: Heart size normal. Prior median sternotomy. Bibasilar airspace opacities, right greater than left. This could be atelectasis or an infectious/inflammatory process. No pleural effusion or pneumothorax. CT scan - chest: Attestation: I have reviewed the pertinent imaging results. Radiologist's impression: TECHNIQUE: CT chest without contrast. Multiplanar axial, coronal, and sagittal reformats are included. MIP images to improve detection of pulmonary nodules are included. Intravenous contrast: None FINDINGS: Airway: Distal circumferential bronchial wall thickening with a few areas of distal endobronchial impaction. Lungs: Right lower lobe predominant tree-in-bud nodular opacities and small peribronchovascular opacities. There is some distal atelectasis in the lateral segment of the right middle lobe. No large consolidations. There are some calcified granulomas. No edema or emphysema Pleura: No pleural effusion. No pneumothorax. Lymph nodes: Lower cervical adenopathy. Bilateral axillary and subpectoral adenopathy. Mediastinal adenopathy. No large hilar lymph nodes. Mildly prominent cardiophrenic lymph node. Mildly prominent retrocrural lymph nodes. Upper abdominal adenopathy. The spleen is not fully included within the field of view but is clearly enlarged. None of these are new findings.. Mediastinum: No pneumomediastinum. No mass. Heart and great vessels: No pericardial effusion. Normal cardiac chamber size. The calcified atherosclerotic plaques. No aortic aneurysm. Normal caliber main pulmonary artery. Chest wall: Normal. No masses. Upper abdomen: Splenomegaly and adenopathy. Bones: No fractures. No focal bone lesions. Median sternotomy wires in place. IMPRESSION: 1. Infectious or inflammatory distal airways disease without focal pneumonia. 2. Multi station cervical, thoracic, and abdominal adenopathy. Splenomegaly. These are not new findings. Not substantially changed. ECG Data Attestation: I personally reviewed and interpreted this ECG as follows: Discharge Plan Discharge Clinical Impression: Hypoxia Patient Disposition: Admitted As Observation Condition: Stable
[2025-04-14 10:32] LABS: Basophils Percent Auto 0.2 % (0.0-3.0); Eosinophils Percent Auto 0.6 % (0.0-7.0); Hematocrit 43.2 % (33.0-51.0); Hemoglobin* 13.6 gm/dL (12.0-16.0); Lymphocytes Percent Auto 67.9 % (20-44); Mean Corpuscular HGB Conc 32 gm/dL (32-36); Mean Corpuscular Hemoglobin 29 pg (26-34); Mean Corpuscular Volume 93 fL (80-100); Neutrophils Percent Auto 18.3 % (42.0-72.0); Platelet Count* 293 K/uL (140-440); RDW Coefficient of Variation % 14.7 % (11.5-15.5); Red Blood Count 4.63 m/uL (4.00-5.20)
[2025-04-14 10:33] LABS: HCO3 VBG 29 mmol/L (21-28); Lactate* 1.4 mmol/L (0.5-1.9); PCO2 VBG 50 mmHG (40-50); PO2 VBG 38.2 mmHG (25-47); pH VBG 7.368 (7.32-7.43)
[2025-04-14 10:38] LABS: Slide Review Reflex Yes; White Blood Count* 56.96 K/uL (4.50-11.00)
[2025-04-14 10:59] LABS: Albumin* 4.6 g/dL (3.3-5.0); Chloride* 100 mmol/L (96-114); D Dimer Quantitative* 0.38 ug/ml (0.00-0.50); Sodium* 137 mmol/L (135-149)
[2025-04-14 11:00] LABS: Potassium* 4.2 mmol/L (3.6-5.1)
[2025-04-14 11:02] LABS: Alanine Aminotransferase* 21 U/L (4-35); Anion Gap 9 mEq/L (7-15); Aspartate Amino Transferase* 34 U/L (12-35); Blood Urea Nitrogen* 19 mg/dL (7-30); Carbon Dioxide* 28 mmol/L (20-32); Creatinine* 0.7 mg/dL (0.5-1.5); Est. Creatinine Clearance* 51.11; Estimated Glomerular Filt Rate 95 ml/min; Total Protein* 7.1 g/dL (6.0-8.3)
[2025-04-14 11:03] LABS: Alkaline Phosphatase* 105 U/L (40-150); Bilirubin Direct* 0.3 mg/dL (0.0-0.5); Bilirubin Total* 1.4 mg/dL (0.1-1.5); Calcium* 10.2 mg/dL (8.4-10.6); Glucose* 147 mg/dL (60-115); Magnesium* 1.6 mg/dL (1.5-2.6)
[2025-04-14 11:05] LABS: C Reactive Protein* 1.6 mg/dL (0.5-1.0)
[2025-04-14 11:15] LABS: Troponin I* 0.02 ng/mL (0.01-0.04)
[2025-04-14 11:18] LABS: PCR FLU A Negative PCR FLU A (Negative); PCR FLU B Negative PCR FLU B (Negative); PCR RSV Negative PCR RSV (Negative); SARS PCR* Negative SARS-CoV-2 (Negative)
[2025-04-14 11:21] LABS: NT Pro B Type NatriureticPept* 367 pg/mL (See Note); Procalcitonin* < 0.03 ng/mL (<0.50)
[2025-04-14 11:28] LABS: Mono Screen* Negative (Negative)
--- NOTE | 2025-04-14 11:49 | CRLHL7_ITS ---
For Patients: As a result of the Century Cures Act, medical imaging exams and procedure reports are released immediately into your electronic medical record. You may view this report before your referring provider. If you have questions, please contact your health care provider. INDICATION: Short of breath. COMPARISON: 02/04/2025, 06/02/2024, 08/16/2022 TECHNIQUE: CT chest without contrast. Multiplanar axial, coronal, and sagittal reformats are included. MIP images to improve detection of pulmonary nodules are included. Intravenous contrast: None FINDINGS: Airway: Distal circumferential bronchial wall thickening with a few areas of distal endobronchial impaction. Lungs: Right lower lobe predominant tree-in-bud nodular opacities and small peribronchovascular opacities. There is some distal atelectasis in the lateral segment of the right middle lobe. No large consolidations. There are some calcified granulomas. No edema or emphysema Pleura: No pleural effusion. No pneumothorax. Lymph nodes: Lower cervical adenopathy. Bilateral axillary and subpectoral adenopathy. Mediastinal adenopathy. No large hilar lymph nodes. Mildly prominent cardiophrenic lymph node. Mildly prominent retrocrural lymph nodes. Upper abdominal adenopathy. The spleen is not fully included within the field of view but is clearly enlarged. None of these are new findings.. Mediastinum: No pneumomediastinum. No mass. Heart and great vessels: No pericardial effusion. Normal cardiac chamber size. The calcified atherosclerotic plaques. No aortic aneurysm. Normal caliber main pulmonary artery. Chest wall: Normal. No masses. Upper abdomen: Splenomegaly and adenopathy. Bones: No fractures. No focal bone lesions. Median sternotomy wires in place. IMPRESSION: 1. Infectious or inflammatory distal airways disease without focal pneumonia. 2. Multi station cervical, thoracic, and abdominal adenopathy. Splenomegaly. These are not new findings. Not substantially changed. Please note that all CT scans at this facility use dose modulation, iterative reconstruction, and/or weight-based dosing when appropriate to reduce radiation dose to as low as reasonably achievable. Dictated by Nisreen Yadav MD @ 04/14/2025 1:12:37 PM (Electronically Signed)
[2025-04-14 12:40] LABS: Slide Review Acceptable Review (Acceptable)
[2025-04-14] MEDS: IPRAT-ALBUT 0.5-2.5 MG/3 ML NEB 1 NEB IH (13:40)
--- NOTE | 2025-04-14 14:54 | P.IMHP_ITS ---
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 Graham), on steroid gtts and Valtrex thrice daily Status: Chronic (4) Lymphoma, small lymphocytic: Problem comment: - Followed by Dr. Pastrana of Oncology for CLL/SLL management Status: Chronic (5) Type 2 diabetes mellitus: Problem comment: - noninsulin dependent, last A1C 6.3 (04/21) - on Glimepiride and Metformin as an outpatient, will continue these as she's taking po intake and on steroids - Accuchecks and SSI Status: Chronic (6) Hypertension: Problem comment: - on Amlodipine, HCTZ, Lisinopril - HOLDING HCTZ and Lisinopril 04/14 given lower BPs Status: Chronic Plan - per above - requires inpatient admission acute on chronic hypoxic respiratory failure in the setting of COPD with multiple comorbidities and immunocompromised status (CLL) - home with when weaned off of supplemental oxygen (likely 2-3 days) Hospitalist- H&P: HPI History of Present Illness Date Seen: 04/14/25 Chief complaint: Low Oxygen Narrative: Alexandra Dixon is a 69 year old female with multiple medical comorbidities (CLL, COPD, PRES, herpes iritis of the R eye, bullous pemphigoid) who presented to the ED with acute on chronic dyspnea + persistent cough. She's noted more shortness of breath than usual over the past 6 weeks, no chest pain. No orthopnea. No fevers. recently hospitalized at [facility] with PNA (she was sick before his stay). Has been seen twice for symptoms (+ L ear pain), treated with Augmentin on and then treated with Azithromycin on 03/05/25 without any significant improvement in her breathing. Restarted her Anoro inhaler (hasn't taken this for many months, per her report) 2-3 days ago, and took 10mg of Prednisone daily (from an old Rx) for the last 4 days without much improvement. Went to see her PCP this morning given persistent symptoms, noted to have an oxygen saturation of 82-84% on RA; ER recommended given history. ER Course and Findings: - 82% on RA upon arrival, improved with supplemental oxygen administration - WBC 56 (typically 20-30 baseline with CLL), lymphocyte predominance - DDimer and VBG within normal limits - procalcitonin wnl, CRP 1.6, BNP 367 - negative Flu/COVID/RSV - CT negative for focal PNA, + infectious/inflammatory distal airways disease - received 50mg Prednisone Alexandra is admitted to the hospital for acute on chronic hypoxic respiratory failure. Review of Systems Status of ROS: Reports: 10 or more systems reviewed and unremarkable except as noted in History and below Narrative: - recently had a tooth fall out while eating, does not think there was a preceding tooth infection, no fevers - no chest pain Medical Decision Making Medical Decision Making Code Status: Full Has patient completed a Health Care Directive: No During This Stay, Who Would You Like To Make Decisions For You In The Event You Are Unable To Make Them For Yourself?: Vivienne Barnhart [facility] Medical History (Updated 04/14/25 @ 20:24 by Becki Martinez MD) Paroxysmal atrial fibrillation ?I48.0 - Paroxysmal atrial fibrillation (ICD-10) Headache ?R51.9 - Headache, unspecified (ICD-10) Mastoiditis of left side ?H70.92 - Unspecified mastoiditis, left ear (ICD-10) Acute sinusitis ?J01.90 - Acute sinusitis, unspecified (ICD-10) PRES (posterior reversible encephalopathy syndrome) (12/2023) ?I67.83 - Posterior reversible encephalopathy syndrome (ICD-10) Hypertension ?I10 - Essential (primary) hypertension (ICD-10) Hypomagnesemia ?E83.42 - Hypomagnesemia (ICD-10) Weight loss, abnormal ?R63.4 - Abnormal weight loss (ICD-10) Elevated LFTs ?R79.89 - Other specified abnormal findings of blood chemistry (ICD-10) Acute interstitial pneumonitis (09/11/23) ?J84.114 - Acute interstitial pneumonitis (ICD-10) History of nuclear stress test (11/19/23) ?Z92.89 - Personal history of other medical treatment (ICD-10) Environmental allergies ?Z91.09 - Other allergy status, other than to drugs and biological substances (ICD-10) Hypercalcemia (08/30/23) ?E83.52 - Hypercalcemia (ICD-10) Respiratory failure ?J96.90 - Respiratory failure, unspecified, unspecified whether with hypoxia or hypercapnia (ICD-10) Dyslipidemia ?E78.5 - Hyperlipidemia, unspecified (ICD-10) Microalbuminuria due to type 2 diabetes mellitus ?E11.29 - Type 2 diabetes mellitus with other diabetic kidney complication (ICD-10) ?R80.9 - Proteinuria, unspecified (ICD-10) Lymphoma, small lymphocytic (2018) ?C83.00 - Small cell B-cell lymphoma, unspecified site (ICD-10) Type 2 diabetes mellitus ?E11.9 - Type 2 diabetes mellitus without complications (ICD-10) Chronic obstructive pulmonary disease (06/2020) ?J44.9 - Chronic obstructive pulmonary disease, unspecified (ICD-10) Diarrhea ?R19.7 - Diarrhea, unspecified (ICD-10) Bullous pemphigoid (~12/2022) ?L12.0 - Bullous pemphigoid (ICD-10) Splenomegaly (07/2022) ?R16.1 - Splenomegaly, not elsewhere classified (ICD-10) Elevated liver transaminase level ?R74.01 - Elevation of levels of liver transaminase levels (ICD-10) Ventricular bigeminy (2018) ?I49.8 - Other specified cardiac arrhythmias (ICD-10) History of bone density study (03/2023) ?Z92.89 - Personal history of other medical treatment (ICD-10) Vitamin D deficiency ?E55.9 - Vitamin D deficiency, unspecified (ICD-10) No retinopathy on exam (03/2021) ?Z01.00 - Encounter for examination of eyes and vision without abnormal findings (ICD-10) History of myocardial infarction (11/21/15) ?I25.2 - Old myocardial infarction (ICD-10) History of malignant neoplasm of skin ?Z85.828 - Personal history of other malignant neoplasm of skin (ICD-10) Frequent ventricular premature beats ?I49.3 - Ventricular premature depolarization (ICD-10) Coronary artery disease (2000) ?I25.10 - Atherosclerotic heart disease of [place] coronary artery without angina pectoris (ICD-10) Surgical History History of eye surgery (~06/01/24) ?Z98.890 - Other specified postprocedural states (ICD-10) History of bronchoscopy (08/2023) ?Z98.890 - Other specified postprocedural states (ICD-10) History of four vessel coronary artery bypass graft (2000) ?Z95.1 - Presence of aortocoronary bypass graft (ICD-10) History of coronary artery stent placement (11/21/15) ?Z95.5 - Presence of coronary angioplasty implant and graft (ICD-10) Family History Father Stroke, Onset Age: 70 Prostate cancer Mother Diabetes Myocardial infarction, Onset Age: 65 Daughter Stroke, Onset Age: 36 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: , 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, 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 SMOKER: Tobacco abuse- 10/day, 32 pack years~ resolved 01/16 Does not exercise- active in garden and yard Social drinker- 2/week Past problems: Non-smoker- quit 2000, hx 30 pack years What is your current living situation?: I presently have a place to live Problems where you live: no known problems Problems where you live details: No known problems In the past 12 months, utilities in danger of being shut off: no In past 12 months, lack of transportation kept you from medical appts, meetings, work, or getting things needed for daily living: no In the past 12 mos, have been you worried that your food would run out before you had money to buy more?: never true In the past 12 mos, the food you bought just didn't last and you didn't have money to buy more?: never true Highest level of school completed/degree received: high school graduate Smoking Status: Former smoker What tobacco products do you use: cigarettes Smoking quit date/years: <= 15 years ago Do you use any of these nicotine containing products: None Second hand tobacco smoke exposure: No How often do you have a drink containing alcohol: 2-4 times a month Alcohol type: beer and hard liquor Alcohol type details: stopped alcohol 5 weeks ago How many standard drinks containing alcohol do you have on a typical day: 1 or 2 How often do you have six or more drinks on one occasion: Less than monthly AUDIT-C Alcohol total score: 3 Non-prescribed substance use: denies use Caffeine: Yes How often does anyone, including family, friends and others, physically hurt you : never How often does anyone, including family, friends and others, insult or talk down to you: never How often does anyone, including family, friends and others, threaten you with harm: never How often does anyone, including family, friends and others, scream or curse at you: never service: No Meds Home Medications and Allergies Home Medications ?Medication ?Instructions ?Recorded ?Confirmed ?Type aspirin 81 mg tablet,delayed 81 mg PO DAILY 04/26/22 0 04/14/25 History release nitroglycerin 0.4 mg sublingual 0.4 mg sublingual Q5-1 5M PRN chest 06/10/23 04/14/25 Rx tablet pain #30 tabs albuterol sulfate 2.5 mg/3 mL 2.5 mg (3 mL) inhalation Q4H PRN 01/17/24 04/14/25 Rx (0.083 %) solution for nebulization bronchospasm #90 m L albuterol sulfate 90 mcg/actuation 2 puff inhalation Q 4H PRN 01/17/24 04/14/25 Rx aerosol inhaler shortness of breath or wheez ing #25.5 grams ascorbic acid (vitamin C) 500 mg 500 mg PO DAILY 01/1604/14/25 History chewable tablet glycerin 0.5 % eye drops (Biotrue 1 drp ophthalmic (ey e) TID 01/17/24 04/14/25 History Hydration Boost) valacyclovir 1 gram tablet 1,000 mg PO DAILY 01/17/24 04/14/25 History Blood Glucose Meter #1 ea 07/28/24 04/14/25 Rx blood sugar diagnostic (Blood #200 ea 07/28/24 5 Rx Glucose Test strips) lancets (Accu-Chek Softclix #200 ea 02/01/25 04/14/25 Rx Lancets) amlodipine 5 mg tablet 5 mg PO DAILY #90 tabs 04/1404/14/25 Rx atorvastatin 40 mg tablet 40 mg PO HS #90 tabs 5 04/14/25 Rx fexofenadine 180 mg tablet 180 mg PO DAILY #90 tabs 04/14/25 Rx ([facility] All[facility]) fluticasone propionate 50 1 spray intranasal DAILY #16 grams 04/14/25 04/14/25 Rx mcg/actuation nasal spray,suspension glimepiride 1 mg tablet 1 mg PO QAM #90 tabs 5 04/14/25 Rx hydrochlorothiazide 25 mg tablet 25 mg PO DAILY 04/14/25 History lisinopril 20 mg tablet 20 mg PO DAILY #90 tabs 03/2804/14/25 Rx metformin 500 mg tablet 1,000 mg (2 x 500 mg) PO BID WMEAL 04/14/25 04/14/25 Rx #360 tabs metoprolol succinate 100 mg 100 mg PO DAILY #90 tabs 0 04/14/25 04/14/25 Rx tablet,extended release 24 hr prednisolone acetate 1 % eye 1 drp ophthalmic (eye-rig ht) DAILY 04/14/25 04/14/25 History drops,suspension (Pred Forte) umeclidinium 62.5 mcg-vilanterol 1 inh inhalation CATRINA Y #60 ea 04/14/25 04/14/25 Rx 25 mcg/actuation powdr for inhalation (Anoro Ellipta) Allergies Allergy/AdvReac Type Severity Reaction Status Date / Time methotrexate Allergy Intermediate Verified 04/14/25 08:06 Aller Xt-[place] AdvReac Intermediate Unknown Uncoded 04/14/25 08:06 Pollen-[place] Exam Narrative: Exam Narrative: GEN: Alert and oriented, sitting comfortably at edge of the bed HEENT: + R eye strabismus (baseline), no scleral icterus. Missing upper R tooth, no evidence of any acute dental infection CV: RRR, soft systolic murmur without concerning features R: Bibasilar rhonchi, inspiratory wheezing L>R Ext: wwp, no concerning edema Skin: No concerning skin lesions or rashes on exposed skin Neuro: Stable R sided strabismus, no focal deficits Psych: Appropriate Const: Vital Signs, click to edit/add: Vital Signs - 24 hr 04/14/25 09:24 04/14/25 09:47 04/14/25 12:59 Temperature 97.3 F L Pulse Rate 73 Pulse Rate [Pulse Oximeter] 64 Respiratory Rate 22 Blood Pressure Blood Pressure [Le ft Upper Arm] 130/61 Pulse Oximetry 82 L 90 93 [facility] 04/14/25 13:00 04/14/25 13:15 04/14/25 13:30 Temperature Pulse Rate 70 68 65 Pulse Rate [Pulse Oximeter] Respiratory Rate 22 Blood Pressure Blood Pressure [Le ft Upper Arm] Pulse Oximetry 93 91 [facility] 04/14/25 13:31 04/14/25 13:32 04/14/25 13:45 Temperature Pulse Rate 61 67 67 Pulse Rate [Pulse Oximeter] Respiratory Rate 22 20 Blood Pressure 121/54 L Blood Pressure [Le ft Upper Arm] Pulse Oximetry 90 96 Oxygen Delivery [facility] 04/14/25 13:46 04/14/25 13:47 04/14/25 14:00 Temperature Pulse Rate 69 67 71 Pulse Rate [Pulse Oximeter] Respiratory Rate 22 Blood Pressure 108/62 Blood Pressure [Le ft Upper Arm] Pulse Oximetry 96 92 91 Oxygen Delivery [facility] 04/14/25 14:01 04/14/25 14:02 Temperature Pulse Rate 68 71 Pulse Rate [Pulse Oximeter] Respiratory Rate Blood Pressure 118/61 Blood Pressure [Le ft Upper Arm] Pulse Oximetry 91 93 Oxygen Delivery [facility] Hospitalist - H&P: Result Labs Labs: Short CBC 04/14/25 Range/Units 10:10 WBC 56.96 H* (4.50-11.00) K/uL Hgb 13.6 (12.0-16.0) gm/dL Hct 43.2 (33.0-51.0) % Plt Count 293 (140-440) K/uL BMP 04/14/25 10:10 Sodium 137 Potassium 4.2 Chloride 100 Carbon Dioxide 28 BUN 19 Creatinine 0.7 Glucose 147 H Calcium 10.2 Cardiac Enzymes 04/14/25 Range/Units 10:10 Troponin I 0.02 (0.01-0.04) ng/mL Liver Function 04/14/25 Range/Units 10:10 Total Bilirubin 1.4 (0.1-1.5) mg/dL Direct Bilirubin 0.3 (0.0-0.5) mg/dL AST 34 (12-35) U/L ALT 21 (4-35) U/L Alkaline Phosphatase 105 (40-150) U/L Albumin 4.6 (3.3-5.0) g/dL
[2025-04-14] MEDS: INSULIN ASPART 100 UNIT/ML SUBCUT (21:11)
[2025-04-14] MEDS: DOXYCYCLINE HYCLATE 100 MG PO (21:11)
[2025-04-15] VITALS (9 sets, daily range): BP systolic 109–149; BP diastolic 48–73; PULSE 60–77; RESP 18–20; TEMP 36.4–36.9; O2SAT 88–96; BMI 29.5
[2025-04-15] MEDS: SODIUM CHLORIDE 0.9 % (FLUSH) 10 ML SYRINGE 5 ML IVF ×3 (04:22→21:19)
--- NOTE | 2025-04-15 06:20 | PC.NURSE ---
Pt pleasant and cooperative. Up I in the room and tolerating this well. VSS Does have a non productive cough. Some expiratory wheezing noted. Has had O2 on at 2L NC with sats then in the low 90's.
[2025-04-15 06:38] LABS: Basophils Percent Auto 0.1 % (0.0-3.0); Eosinophils Percent Auto 0.1 % (0.0-7.0); Hematocrit 39.1 % (33.0-51.0); Hemoglobin* 12.4 gm/dL (12.0-16.0); Immature Granulocytes Pct Auto 2.5 %; Mean Corpuscular HGB Conc 32 gm/dL (32-36); Mean Corpuscular Hemoglobin 30 pg (26-34); Mean Corpuscular Volume 94 fL (80-100); Monocytes Percent Auto 11.9 % (0.0-11.0); Neutrophils Percent Auto 15.4 % (42.0-72.0); Platelet Count* 255 K/uL (140-440); RDW Coefficient of Variation % 14.6 % (11.5-15.5); Red Blood Count 4.18 m/uL (4.00-5.20)
[2025-04-15 06:42] LABS: PCO2 VBG 48 mmHG (40-50); Slide Review Reflex No; pH VBG 7.395 (7.32-7.43)
[2025-04-15 06:43] LABS: HCO3 VBG 29 mmol/L (21-28)
[2025-04-15 07:04] LABS: Chloride* 101 mmol/L (96-114); Potassium* 3.6 mmol/L (3.6-5.1); Sodium* 136 mmol/L (135-149)
[2025-04-15 07:07] LABS: Alanine Aminotransferase* 14 U/L (4-35); Alkaline Phosphatase* 83 U/L (40-150); Anion Gap 8 mEq/L (7-15); Aspartate Amino Transferase* 23 U/L (12-35); Bilirubin Total* 1.2 mg/dL (0.1-1.5); Blood Urea Nitrogen* 26 mg/dL (7-30); Calcium* 9.7 mg/dL (8.4-10.6); Carbon Dioxide* 27 mmol/L (20-32); Creatinine* 0.5 mg/dL (0.5-1.5); Est. Creatinine Clearance* 51.11; Estimated Glomerular Filt Rate 103 ml/min; Glucose* 92 mg/dL (60-115); Total Protein* 6.4 g/dL (6.0-8.3)
[2025-04-15] MEDS: GLIMEPIRIDE 1 MG TABLET PO (08:39)
[2025-04-15] MEDS: DOXYCYCLINE HYCLATE 100 MG PO ×2 (08:39→21:17)
[2025-04-15] MEDS: METFORMIN 500 MG TABLET 1000 MG PO (08:39)
[2025-04-15] MEDS: predniSONE 20 MG TABLET 40 MG PO (08:39)
[2025-04-15] MEDS: AMLODIPINE 5 MG TABLET PO (08:40)
[2025-04-15] MEDS: METOPROLOL SUCCINATE (XL) 100 MG TAB PO (08:40)
[2025-04-15] MEDS: FLUTICASONE PROPIONATE NASAL 1 SPRAY NOSTRIL-B (08:48)
[2025-04-15] MEDS: prednisoLONE acetate 1 % DROPS 1 DROP EYE-RIGHT (08:48)
[2025-04-15] MEDS: BUDESONIDE 0.5 MG/2ML NEB NEB (08:49)
[2025-04-15] MEDS: ASPIRIN 81 MG TABLET EC PO (08:49)
[2025-04-15] MEDS: VALACYCLOVIR HCL 500 MG TABLET 1000 MG PO (08:54)
--- NOTE | 2025-04-15 11:47 | RESP.RT ---
Pt seen. Weaning oxygen, at !L now. BBS with scattered Rhonchi. Started aerobika, pt did well with it, as she has one at home. Strong congested cough for thick green sputum. Continue with aggresive aerobika use, ambulation., weaning of oxygen.
--- NOTE | 2025-04-15 14:56 | PM.IMPN1 ---
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 (Dr. Graham), on steroid gtts and Valtrex thrice daily Status: Chronic (4) Lymphoma, small lymphocytic: Problem comment: - Followed by Dr. Pastrana of Oncology for CLL/SLL management Status: Chronic (5) Type 2 diabetes mellitus: Problem comment: - noninsulin dependent, last A1C 6.3 (04/21) - on Glimepiride and Metformin as an outpatient, will continue these as she's taking po intake and on steroids - Accuchecks and SSI Status: Chronic (6) Hypertension: Problem comment: - on Amlodipine, HCTZ, Lisinopril - HOLDING HCTZ and Lisinopril 04/14 given lower BPs Status: Chronic (7) Vertigo: Problem comment: - PT consulted, able to trigger BPPV. Resolved with maneuvers. Remains asymptomatic. Status: Acute Plan Continue current course, hopeful discharge tomorrow with ongoing clinical improvement. Total Time Spent Total Time Spent: Today I spent 55 minutes seeing the patient, reviewing [facility] and [facility] notes/diagnostics, discussing the care plan with our care time that includes social work, PT/OT, pharmacy, RT, alf and documenting my impressions and plan in the medical record. Subjective Date Seen: 04/15/25 Interval history: Patient is seen sitting up on the edge of the bed. Reports feeling much better. Breathing has improved. She reports coughing up large amounts of sputum. Denies chest pain or tightness. Shortness of breath improving. Remains afebrile. No nausea vomiting. No headache. Reports dizziness, for at least last couple of weeks, when rolling from right side to left side while in bed. Does not occur while standing or other movement. Vertiginous. No previous vertigo. Exam Narrative: Exam Narrative: PHYSICAL EXAM General: Pleasant, conversant, NAD Cardiovascular: RRR, S1S2. No pitting edema Pulmonary: CTA diminished, expiratory wheezes noted, mildly coarse. No dyspnea on NC Neurological: Alert, answering questions appropriately, cranial nerves intact, no focal findings Extremities: No gross joint deformity or swelling. AROMI. Neurovascularly intact Skin: Warm, dry. Const: Vital Signs, click to edit/add: Vital Signs - 24 hr 04/14/25 15:00 04/14/25 20:21 04/15/25 00:06 Temperature 97.6 F 97.6 F Pulse Rate [Pulse Oximeter] 72 71 69 Respiratory Rate 16 20 20 Blood Pressure [Le ft Arm] 123/60 109/48 L Pulse Oximetry 92 94 Oxygen Delivery Me thod Nasal Cannula Nasal Cannula Oxygen Flow Rate 2 2 04/15/25 03:00 04/15/25 07:00 04/15/25 08:00 Temperature 97.6 F 97.6 F Pulse Rate [Pulse Oximeter] 61 74 74 Respiratory Rate 20 18 18 Blood Pressure [Le ft Arm] 149/73 H 134/60 Pulse Oximetry 96 91 Oxygen Delivery Me thod Nasal Cannula Nasal Cannula Oxygen Flow Rate 2 2 Labs Labs: Laboratory Results - last 24 hr 04/15/25 06:11 WBC 54.50 H* RBC 4.18 Hgb 12.4 Hct 39.1 MCV 94 MCH 30 MCHC 32 RDW Coeff of [place] 14.6 Plt Count 255 Neut % (Auto) 15.4 L Lymph % (Auto) 70.0 H [place] % (Auto) 11.9 H Eos % (Auto) 0.1 Baso % (Auto) 0.1 Neut # (Auto) 8.40 H Lymph # (Auto) 38.20 H [place] # (Auto) 6.50 H Eos # (Auto) 0.10 Baso # (Auto) 0.10 Abs Immat Gran (auto) 1.40 H Imm/Tot Granulo (auto) 2.5 VBG pH 7.395 VBG pCO2 48 VBG pO2 35.0 VBG HCO3 29 H Sodium 136 Potassium 3.6 Chloride 101 Carbon Dioxide 27 Anion Gap 8 BUN 26 Creatinine 0.5 Estimated Creat Clear 51.11 Estimated GFR 103 Glucose 92 Calcium 9.7 Total Bilirubin 1.2 AST 23 ALT 14 Alkaline Phosphatase 83 Total Protein 6.4 Albumin 4.0
--- NOTE | 2025-04-15 17:19 | PC.NURSE ---
End of Shift: Patient pleasant and cooperative, A&O. VSS, afebrile. Denies pain this shift. Tolerating regular diet. Independent in room.
[2025-04-15] MEDS: ENOXAPARIN 40 MG/0.4 ML INJ SUBCUT (21:17)
[2025-04-15] MEDS: INSULIN ASPART 100 UNIT/ML SUBCUT (21:18)
[2025-04-15] MEDS: ATORVASTATIN CALCIUM 40 MG TABLET PO (21:18)
[2025-04-15] MEDS: IPRAT-ALBUT 0.5-2.5 MG/3 ML NEB 1 NEB IH (21:26)
--- NOTE | 2025-04-15 23:27 | PC.NURSE ---
Shift Note: Shift unremarkable. Pt moving independently. 1L/O2 via NC with SpO2 89%. Denies pain or SOB. Diligent with her aerobika.
[2025-04-16 03:50] VITALS: BP 114/67; PULSE 60; RESP 16; TEMP 36.5; O2SAT 91
--- NOTE | 2025-04-16 06:19 | PC.NURSE ---
End of shift note [id number]: Pt A&Ox4 and able to make needs known. She transfers/ambulates independently and is continent of bladder. Tele in place with NSR. Pt has been denying pain when asked. VSS and pt has been afebrile. Pt has been on RA throughout the night in order to maintain O2 sats per order. Pt noted to have some insomnia at times overnight though refused PRN Melatonin when securities underwriter brought this up. ?
[2025-04-16 07:00] VITALS: RESP 18; O2SAT 88
[2025-04-16] MEDS: predniSONE 20 MG TABLET 40 MG PO (07:52)
[2025-04-16 07:55] VITALS: BP 142/77; PULSE 66; RESP 18; TEMP 36.6; O2SAT 88
--- NOTE | 2025-04-16 07:57 | P.DS_ITS ---
DS: Providers Provider Date Seen: 04/16/25 Date of admission: 04/14/25 15:23 Primary care physician: Katerine Bashir MD Admitting Clinician: Elysia Gasca MD Consults: 04/14/25 15:23 Consult to Respiratory Therapy [CONS] Routine Comment: Reason(s) for RT Consult:: Consult 04/15/25 09:21 Consult to Physical Therapy [CONS] Routine Comment: Reason(s) for PT Consult:: Evaluate and Treat Any Restrictions?:: No Restrictions Comment: vertigo assessment Attending Physician on discharge: MENDEZ Del Rsoario, PALucinaC [facility] Date of Discharge: 04/16/25 DS: Diagnosis Discharge Diagnosis (1) Hypoxia: Status: Acute Problem details: - acute on chronic hypoxic respiratory failure - Prednisone 50mg on 04/14, will continue with 40mg po daily - nebs, RT referral - Doxycycline given COPD history (no acute infection on Chest CT 04/14) - high risk of complications given comorbidities (CLL, bullous pemphigoid) Prior to discharge, weaned to room air. Saturations > 88% on room air. Feels back to normal. (2) Chronic obstructive pulmonary disease: Status: Chronic Problem details: - GOLD C suspected by [employer] sales operations consultant, takes albuterol daily - also has Rx for Anoro Ellipta (not taking regularly 2/2 financial constraints, restarted this on 04/12) On discharge, will complete course of doxycycline, prednisone. Continue with incentive spirometry, aerobika. Outpatient follow-up with PCP. 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 Graham), on steroid gtts and Valtrex thrice daily (4) Lymphoma, small lymphocytic: Status: Chronic Problem details: - Followed by Dr. Pastrana of Oncology for CLL/SLL management. WBC stable. (5) Type 2 diabetes mellitus: Status: Chronic Problem details: - noninsulin dependent, last A1C 6.3 (04/21) - on Glimepiride and Metformin as an outpatient, will continue these as she's taking po intake and on steroids - Accuchecks and SSI (6) Hypertension: Status: Chronic Problem details: - on Amlodipine, HCTZ, Lisinopril - HOLDING HCTZ and Lisinopril 04/14 given lower BPs Resume home medications on discharge (7) Vertigo: Status: Acute Problem details: - PT consulted, able to trigger BPPV. Resolved with maneuvers. Remains asymptomatic. Outpatient follow-up PT as needed. DS: Summary Hospital Course Hospital Course: Course of care and details as noted above. Acute on chronic recurrent COPD exacerbation. Hypoxic, requiring supplemental oxygen. Wean to room air. Will complete course of empiric cycling, Prednisone. Close outpatient follow-up with PCP. Remainder of chronic medical comorbidities were monitored and managed with home medications. Status at Discharge Functional status at discharge: independent ambulation Overall status at discharge: patient is back to baseline Time Spent with Patient Time attestation: Total time spent providing and/or coordinating discharge services: Time spent: Greater than 30 minutes Exam Narrative: Exam Narrative: PHYSICAL EXAM General: Pleasant, conversant, NAD Cardiovascular: RRR Pulmonary: No dyspnea on room air, breath sounds improved, mildly coarse, decreased expiratory wheezes Neurological: Alert, answering questions appropriately Skin: Warm, dry. Const: Vital Signs, click to edit/add: Vital Signs - 24 hr 04/15/25 08:00 04/15/25 15:00 04/15/25 15:00 Temperature 97.6 F 98.0 F Pulse Rate Pulse Rate [Pulse Oximeter] 74 65 65 Respiratory Rate 18 18 18 Blood Pressure [Le ft Arm] 134/60 130/62 Pulse Oximetry 91 89 Oxygen Delivery Me thod Nasal Cannula Nasal Cannula Oxygen Flow Rate 2 1 04/15/25 19:00 04/15/25 23:00 04/15/25 23:22 Temperature 98.5 F Pulse Rate 60 Pulse Rate [Pulse Oximeter] 77 65 Respiratory Rate 18 18 Blood Pressure [Le ft Arm] 132/61 Pulse Oximetry 88 Oxygen Delivery Me thod Nasal Cannula Oxygen Flow Rate 1 04/15/25 23:35 04/16/25 03:50 04/16/25 07:55 Temperature 97.8 F 97.7 F 97.8 F Pulse Rate Pulse Rate [Pulse Oximeter] 65 60 66 Respiratory Rate 18 16 18 Blood Pressure [Le ft Arm] 119/59 L 114/67 142/77 H Pulse Oximetry 93 91 88 Oxygen Delivery Me thod Room Air Room Air Room Air Oxygen Flow Rate DS: Data Data Completed and Pending Completed studies during hospitalization: Procedures Introduction of Other Gas into Respiratory Tract, Via Natural or Artificial Opening (03/05/24) Imaging Chest x-ray: Attestation: I have reviewed the pertinent imaging results. Radiologist's impression: TUBES AND LINES: None. HEART AND MEDIASTINUM: The heart size is normal. The mediastinal contour appears normal for patient age.Postoperative changes. Median sternotomy LUNGS AND PLEURAL SPACES: Bibasilar airspace opacities, right greater than left.No pleural effusion or pneumothorax. OSSEOUS STRUCTURES: Age-appropriate appearance. No acute focal finding. IMPRESSION: Heart size normal. Prior median sternotomy. Bibasilar airspace opacities, right greater than left. This could be atelectasis or an infectious/inflammatory process. No pleural effusion or pneumothorax. CT scan - chest: Attestation: I have reviewed the pertinent imaging results. Radiologist's impression: Airway: Distal circumferential bronchial wall thickening with a few areas of distal endobronchial impaction. Lungs: Right lower lobe predominant tree-in-bud nodular opacities and small peribronchovascular opacities. There is some distal atelectasis in the lateral segment of the right middle lobe. No large consolidations. There are some calcified granulomas. No edema or emphysema Pleura: No pleural effusion. No pneumothorax. Lymph nodes: Lower cervical adenopathy. Bilateral axillary and subpectoral adenopathy. Mediastinal adenopathy. No large hilar lymph nodes. Mildly prominent cardiophrenic lymph node. Mildly prominent retrocrural lymph nodes. Upper abdominal adenopathy. The spleen is not fully included within the field of view but is clearly enlarged. None of these are new findings.. Mediastinum: No pneumomediastinum. No mass. Heart and great vessels: No pericardial effusion. Normal cardiac chamber size. The calcified atherosclerotic plaques. No aortic aneurysm. Normal caliber main pulmonary artery. Chest wall: Normal. No masses. Upper abdomen: Splenomegaly and adenopathy. Bones: No fractures. No focal bone lesions. Median sternotomy wires in place. IMPRESSION: 1. Infectious or inflammatory distal airways disease without focal pneumonia. 2. Multi station cervical, thoracic, and abdominal adenopathy. Splenomegaly. These are not new findings. Not substantially changed. Please note that all CT scans at this facility use dose modulation, iterative reconstruction, and/or weight-based dosing when appropriate to reduce radiation dose to as low as reasonably achievable. Discharge Plan Discharge Disposition: Home, Self-Care Date of Admission: 04/14/25 15:23 Attending Provider on Discharge: Latasha Norris Primary Care Provider: Katerine Bashir Condition: Stable Anticipated Discharge Date/Time: 04/16/25 07:50 Discharge Medications: New doxycycline hyclate 100 mg Tablet 100 mg PO BID Qty: 10 0RF prednisone 20 mg Tablet 40 mg PO DAILYWM 3 Days Qty: 6 0RF Continued ascorbic acid (vitamin C) 500 mg tablet,chewable 500 mg PO DAILY valacyclovir 1 gram tablet 1,000 mg PO DAILY Biotrue Hydration Boost 0.5 % drops 1 drp ophthalmic (eye) TID albuterol sulfate 90 mcg/actuation HFA aerosol inhaler 2 puff inhalation Q4H PRN (Reason: shortness of breath or wheezing) Qty: 25.5 1RF albuterol sulfate 2.5 mg /3 mL (0.083 %) solution for nebulization 2.5 mg inhalation Q4H PRN (Reason: bronchospasm) Qty: 90 0RF (DME) Blood Glucose Test Strip See Rx Instructions .Route Qty: 200 3RF Rx Instructions: test blood sugars BID (DME) Blood Glucose Meter Misc See Rx Instructions .Route Qty: 1 0RF Rx Instructions: test blood sugars BID aspirin 81 mg tablet,delayed release (DR/EC) 81 mg PO DAILY Anoro Ellipta 62.5-25 mcg/actuation blister with device 1 inh inhalation DAILY Qty: 60 12RF Patient Comments: HAS NOT STARTED YET metoprolol succinate 100 mg tablet extended release 24 hr 100 mg PO DAILY Qty: 90 3RF metformin 500 mg tablet 1,000 mg PO BIDWMEAL Qty: 360 3RF lisinopril 20 mg tablet 20 mg PO DAILY Qty: 90 3RF glimepiride 1 mg tablet 1 mg PO QAM Qty: 90 3RF Rx Instructions: administer with breakfast fluticasone propionate 50 mcg/actuation spray,suspension 1 spray intranasal DAILY Qty: 16 12RF Rx Instructions: administer into each nostril fexofenadine [Rosangela Allergy] 180 mg tablet 180 mg PO DAILY Qty: 90 3RF atorvastatin 40 mg tablet 40 mg PO HS Qty: 90 3RF amlodipine 5 mg tablet 5 mg PO DAILY Qty: 90 3RF prednisolone acetate [Pred Forte] 1 % drops,suspension 1 drp ophthalmic (eye-right) DAILY hydrochlorothiazide 25 mg tablet 25 mg PO DAILY nitroglycerin 0.4 mg tablet, sublingual 0.4 mg sublingual Q5-15M PRN (Reason: chest pain) Qty: 30 0RF Rx Instructions: PRN CHEST PAIN (DME) lancets [Accu-Chek Softclix Lancets] Misc See Rx Instructions .Route Qty: 200 0RF Rx Instructions: Use to test blood sugar twice daily Discharge Orders: Discharge Order (Routine); Ordered 04/16/25 Ordered By: Latasha Norris Patient Education: Doxycycline (By mouth), Prednisone (By mouth), COPD (Chronic Obstructive Pulmonary Disease) (DC), Hypoxia (ED) Activity Level: No Restrictions Discharge Diet: Regular Follow Up Appointments: [facility] [Other] Referral Note: Post hospital follow up with clinician next week please (not nberg) Freddy Nascimento MD [Staff Physician, Family Practice] - 04/28/25 10:00 am Referral Note: [facility] for hospital follow-up. Forms: [employer] Info Instructions
[2025-04-16] MEDS: VALACYCLOVIR HCL 500 MG TABLET 1000 MG PO (09:06)
[2025-04-16] MEDS: ASPIRIN 81 MG TABLET EC PO (09:06)
[2025-04-16] MEDS: METFORMIN 500 MG TABLET 1000 MG PO (09:06)
[2025-04-16] MEDS: AMLODIPINE 5 MG TABLET PO (09:06)
[2025-04-16] MEDS: GLIMEPIRIDE 1 MG TABLET PO (09:07)
[2025-04-16] MEDS: DOXYCYCLINE HYCLATE 100 MG PO (09:07)
[2025-04-16] MEDS: METOPROLOL SUCCINATE (XL) 100 MG TAB PO (09:07)
[2025-04-16] MEDS: prednisoLONE acetate 1 % DROPS 1 DROP EYE-RIGHT (09:08)
[2025-04-16] MEDS: FLUTICASONE PROPIONATE NASAL 1 SPRAY NOSTRIL-B (09:08)
== END 2025-04-16 09:15 | disposition home or self-care (01) | DRG 189 ==
LOC: ED 13:18 → MEDSURG 14:08
PROVIDERS: Admitting Provider Family Medicine; Emergency Provider Family Medicine; PCP Family Medicine; Visit Provider Family Medicine
DX: J96.21 Acute and chronic respiratory failure with hypoxia (principal); J44.1 Chronic obstructive pulmonary disease with (acute) exacerbation; C91.10 Chronic lymphocytic leukemia of B-cell type not having achieved remission; D84.81 Immunodeficiency due to conditions classified elsewhere; B02.32 Zoster iridocyclitis; E11.9 Type 2 diabetes mellitus without complications; R42 Dizziness and giddiness; I48.0 Paroxysmal atrial fibrillation; Z79.82 Long term (current) use of aspirin; I10 Essential (primary) hypertension; Z85.828 Personal history of other malignant neoplasm of skin; I25.2 Old myocardial infarction; I25.10 Atherosclerotic heart disease of native coronary artery without angina pectoris; I49.8 Other specified cardiac arrhythmias; Z95.1 Presence of aortocoronary bypass graft; Z95.5 Presence of coronary angioplasty implant and graft; Z79.84 Long term (current) use of oral hypoglycemic drugs; E78.5 Hyperlipidemia, unspecified; Z87.891 Personal history of nicotine dependence
CPT/HCPCS: 36415; 71046; 71250; 80048; 80053; 80076; 82803; 82962; 83605; 83735; 83880; 84145; 84484; 85025; 85379; 86140; 86308; 87631; 93005; 94664; 94761; 97161; 97530; 99285; A9270; J1650; J7512; J7626

== ENCOUNTER 2025-04-28 09:05 | Outpatient (CLI) | payer MEDICARE, SELFPAY ==
--- NOTE | 2025-04-28 09:15 | CRLHL7_ITS ---
For Patients: As a result of the Century Cures Act, medical imaging exams and procedure reports are released immediately into your electronic medical record. You may view this report before your referring provider. If you have questions, please contact your health care provider. INDICATION: BILATERAL SCREENING MAMMOGRAM, ASYMPTOMATIC 69 Y/O FEMALE COMPARISON: 04/22/2024, 08/17/2022, 04/23/2022 TECHNIQUE: Digital mammogram in CC and MLO projections including computer-aided detection (CAD) and tomosynthesis. BREAST COMPOSITION: There are scattered areas of fibroglandular density. FINDINGS: No suspicious findings. ASSESSMENT: BI-RADS 2 Benign RECOMMENDATION: Annual screening mammogram. A lay language report of this examination will be provided to the patient. Dictated by: Easton Salazar MD @ 04/28/2025 10:12:06 (Electronically Signed)
== END 2025-04-28 09:06 | disposition home or self-care (01) ==
LOC: MAMMO 09:06
PROVIDERS: PCP Family Medicine; Visit Provider Family Medicine
DX: Z12.31 Encounter for screening mammogram for malignant neoplasm of breast (principal)
CPT/HCPCS: 77063; 77067

== ENCOUNTER 2025-08-31 09:00 | Outpatient (RCR) | payer MEDICARE, SELFPAY ==
[2025-03-31 10:36] LABS: Hematocrit* 42.1 % (33.0-51.0); Hemoglobin* 13.1 gm/dL (12.0-16.0); Immature Granulocytes Pct Auto 1.4 %; Mean Corpuscular HGB Conc 31 gm/dL (32-36); Mean Corpuscular Hemoglobin 29 pg (26-34); Mean Corpuscular Volume 94 fL (80-100); RDW Coefficient of Variation % 14.7 % (11.5-15.5); Red Blood Count* 4.48 m/uL (4.00-5.20)
[2025-03-31 10:49] LABS: Albumin* 4.2 g/dL (3.3-5.0); Chloride* 105 mmol/L (96-114); Potassium* 4.1 mmol/L (3.6-5.1); Sodium* 140 mmol/L (135-149)
[2025-03-31 10:51] LABS: Alanine Aminotransferase* 19 U/L (4-35); Anion Gap 7 mEq/L (7-15); Aspartate Amino Transferase* 29 U/L (12-35); Blood Urea Nitrogen* 14 mg/dL (7-30); Carbon Dioxide* 28 mmol/L (20-32); Creatinine* 0.6 mg/dL (0.5-1.5); Estimated Glomerular Filt Rate 98 ml/min
[2025-03-31 10:52] LABS: Alkaline Phosphatase* 105 U/L (40-150); Bilirubin Total* 1.0 mg/dL (0.1-1.5); Calcium* 9.7 mg/dL (8.4-10.6); Glucose* 102 mg/dL (60-115); Total Protein* 6.5 g/dL (6.0-8.3)
[2025-03-31 11:28] LABS: Immature Granulocytes Abs Auto 0.60 K/uL (0.00-0.30); Lymphocytes Absolute Auto 27.80 K/uL (0.90-2.90); Slide Review Reflex Yes; White Blood Count* 39.29 K/uL (4.50-11.00)
[2025-03-31 11:32] LABS: Slide Review Acceptable Review (Acceptable)
[2025-04-01 19:15] LABS: Immunoglobulin A 73 mg/dL (68-408); Immunoglobulin G 525 mg/dL (768-1632); Immunoglobulin M 56 mg/dL (35-263)
--- NOTE | 2025-04-19 14:54 | ONC.NURNOTE ---
PSDS =7 patient denied SS consult- but is interested in information about house keeping services if available referral sent for assistance with resources for patient
--- NOTE | 2025-04-20 12:06 | ONC.NURNOTE ---
Addendum entered by Nevin Martinez RN 05/04/25 10:54: LILLIANA approval via [employer]. Dates of approval are not readily available to this writer producer Original Note: LILLIANA started at [facility] for imbruvica [facility] [facility] will be processing the RX provider # [phone] fax [phone]
[2025-04-21 07:58] VITALS: BP 137/76; PULSE 57; RESP 17; TEMP 36.5; O2SAT 91
[2025-04-21 08:40] LABS: Hematocrit* 40.8 % (33.0-51.0); Hemoglobin* 12.8 gm/dL (12.0-16.0); Immature Granulocytes Pct Auto 1.4 %; Mean Corpuscular HGB Conc 31 gm/dL (32-36); Mean Corpuscular Hemoglobin 30 pg (26-34); Mean Corpuscular Volume 95 fL (80-100); RDW Coefficient of Variation % 14.9 % (11.5-15.5); Red Blood Count* 4.31 m/uL (4.00-5.20)
[2025-04-21 08:57] LABS: Immature Granulocytes Abs Auto 1.50 K/uL (0.00-0.30); Lymphocytes Absolute Auto 87.90 K/uL (0.90-2.90); Slide Review Reflex Yes; White Blood Count* 107.42 K/uL (4.50-11.00)
[2025-04-21 08:58] LABS: Slide Review Acceptable Review (Acceptable)
--- NOTE | 2025-04-21 14:00 | PC.SOCIAL ---
Social service consult: SW met with patient to determine if there was any supports or resources she is interested in. Patient states that her only concern is potentially needing support with cleaning her house. SW provided her with a list of group home worker agencies that she can reach out to. Otherwise patient states that transportation is not a barrier and that her partner will be bringing her to her appts from now on as they only have one car and reports this won't be an issue. Patient states that she does feel some depression just around not feeling well, but feels at this time that it's situational and that she doesn't need support with it. Patient was able to reflect on her ability to ask for help and feels she can ask if needed. Patient shared some concerns she has had in the past with providers not listening, but doesn't feel concerned about this at the [facility]. Patient overall states she is doing well. SW provided her phone number to contact if other needs/concerns arise.
[2025-04-21 15:04] VITALS: BP 151/74; PULSE 63; RESP 16; TEMP 36.2; O2SAT 92
--- NOTE | 2025-04-21 15:08 | ONC.NURNOTE ---
Pt here for IVIG, initally pt mentioned her left foot developed a soft bruise on top of her foot with a darker bruise near her 2nd toe. Pt denies any injury to her foot. Discussed with Neelima Benavidez APRN and CBC drawn to check platelets. Platelets came back at 266. Pt updated. At 1430, when pt being discharged she mentioned a small bruise/redness/possible bug bite on the center of her abdomen. Area marked with skin marker and pt will need to be evaluated if redness exceeds markings. No fever or chills. Pt verbalized understanding of plan of care.
--- NOTE | 2025-04-23 12:53 | ONC.NURNOTE ---
Addendum entered by Luana Landers RN 04/23/25 13:18: Certified Vehicle Fire Investigator spoke with Prakash from [employer] and wanted staff to have his direct go to line--[phone] Original Note: Certified Vehicle Fire Investigator called and spoke with [employer] regarding Imbruvica and maximo. They stated the patient needed to call on it since they were the ones that initiated the application. Patient called and stated she just got off the phone with [facility] maximo application and it has been approved and they will fax a form to us. Form received and signed by Neelima RIVERA and faxed back Patient plans to start the medication on May 03 so bid writer told her to go ahead and accept delivery so that she has it and then will call here to schedule a baseline lab draw that day
--- NOTE | 2025-05-04 10:54 | ONC.NURNOTE ---
Ibrutinib/Imbruvica to be dispensed by [facility] patient enrolled in the [facility] maximo for copay assistance-
--- NOTE | 2025-05-04 14:42 | ONC.NURNOTE ---
Patient started yesterday Imbruvica- 2 X 140 mg/daily lab and MD follow up appts set up reports no questions or concerns with current dosing plan
--- NOTE | 2025-05-11 14:09 | ONC.NURNOTE ---
Ibrutinib monitoring: reports a pattern of multiple episodes of diarrhea- followed by 2-3 days of no bowel movements- baseline was to move bowels every 2-3 days suggested OTC metamucin to try to help even balance the BM routine also reports that she showered and noticed burning sensation on face after use with usual soap-no rash noted or redness- has not showered since- and no further concerns
[2025-05-17 09:54] LABS: Hematocrit* 41.7 % (33.0-51.0); Hemoglobin* 13.3 gm/dL (12.0-16.0); Immature Granulocytes Abs Auto 0.10 K/uL (0.00-0.30); Immature Granulocytes Pct Auto 0.3 %; Mean Corpuscular HGB Conc 32 gm/dL (32-36); Mean Corpuscular Hemoglobin 30 pg (26-34); Mean Corpuscular Volume 93 fL (80-100); RDW Coefficient of Variation % 14.4 % (11.5-15.5); Red Blood Count* 4.51 m/uL (4.00-5.20)
--- NOTE | 2025-05-17 10:04 | ONC.NURNOTE ---
Addendum entered by Nevin Martinez RN 05/18/25 13:29: Following instructions given to Alexandra from Dr Darden Dental work- deep cleaning and tooth extraction planned for 05/25 to hold ibrutinib 3 days prior to procedure, day of procedure and 3 days after the procedure- due to risk of infection and bleeding while on ibrutinib instructed to stop the ibrutinib from 05/22-05/28/25 Original Note: Alexandra here for 1st follow up lab since starting Ibrutinib on 05/03/25 reports intermittent myalgias involving her neck, arms and legs- which she states is not new since starting her ibrutinib- does not require any pain medication- states it is not enouch to interfere with her daily activities but this is an ongoing issue Alexandra requires dental work at the end of the month- deep cleaning and 2 tooth extractions- one of her front teeth broke off at the gum level does Dr Pastrana want to make any dosing modifications prior to and after the dental work?
[2025-05-17 10:07] LABS: Albumin* 4.5 g/dL (3.3-5.0); Chloride* 102 mmol/L (96-114)
[2025-05-17 10:08] LABS: Potassium* 4.1 mmol/L (3.6-5.1); Sodium* 135 mmol/L (135-149)
[2025-05-17 10:10] LABS: Alanine Aminotransferase* 16 U/L (4-35); Anion Gap 8 mEq/L (7-15); Aspartate Amino Transferase* 26 U/L (12-35); Bilirubin Total* 1.1 mg/dL (0.1-1.5); Blood Urea Nitrogen* 18 mg/dL (7-30); Carbon Dioxide* 25 mmol/L (20-32); Creatinine* 0.7 mg/dL (0.5-1.5); Est. Creatinine Clearance* 49.12; Estimated Glomerular Filt Rate 95 ml/min; Total Protein* 7.3 g/dL (6.0-8.3)
[2025-05-17 10:11] LABS: Alkaline Phosphatase* 81 U/L (40-150); Calcium* 10.3 mg/dL (8.4-10.6); Glucose* 89 mg/dL (60-115)
[2025-05-17 10:33] LABS: Lymphocytes Absolute Auto 31.00 K/uL (0.90-2.90); White Blood Count* 38.03 K/uL (4.50-11.00)
[2025-05-17 10:34] LABS: Slide Review Acceptable Review (Acceptable); Slide Review Reflex Yes
[2025-05-31 10:20] LABS: Hematocrit* 39.2 % (33.0-51.0); Hemoglobin* 12.6 gm/dL (12.0-16.0); Immature Granulocytes Pct Auto 0.6 %; Mean Corpuscular HGB Conc 32 gm/dL (32-36); Mean Corpuscular Hemoglobin 29 pg (26-34); Mean Corpuscular Volume 92 fL (80-100); RDW Coefficient of Variation % 14.2 % (11.5-15.5); Red Blood Count* 4.28 m/uL (4.00-5.20); White Blood Count* 19.99 K/uL (4.50-11.00)
[2025-05-31 10:31] LABS: Albumin* 4.3 g/dL (3.3-5.0); Chloride* 103 mmol/L (96-114); Potassium* 4.1 mmol/L (3.6-5.1); Sodium* 137 mmol/L (135-149)
[2025-05-31 10:34] LABS: Alanine Aminotransferase* 15 U/L (4-35); Alkaline Phosphatase* 74 U/L (40-150); Anion Gap 9 mEq/L (7-15); Aspartate Amino Transferase* 26 U/L (12-35); Bilirubin Total* 0.9 mg/dL (0.1-1.5); Blood Urea Nitrogen* 23 mg/dL (7-30); Calcium* 10.0 mg/dL (8.4-10.6); Carbon Dioxide* 25 mmol/L (20-32); Creatinine* 0.8 mg/dL (0.5-1.5); Est. Creatinine Clearance* 49.12; Estimated Glomerular Filt Rate 81 ml/min; Glucose* 92 mg/dL (60-115); Total Protein* 6.8 g/dL (6.0-8.3)
[2025-05-31 10:51] LABS: Immature Granulocytes Abs Auto 0.10 K/uL (0.00-0.30); Lymphocytes Absolute Auto 13.10 K/uL (0.90-2.90); Slide Review Reflex Yes
[2025-05-31 10:52] LABS: Slide Review Acceptable Review (Acceptable)
[2025-06-01 17:16] LABS: Immunoglobulin A 72 mg/dL (68-408); Immunoglobulin G 641 mg/dL (768-1632); Immunoglobulin M 52 mg/dL (35-263)
[2025-06-09 09:02] VITALS: BP 115/68; PULSE 58; TEMP 36.4; O2SAT 94
[2025-06-09] MEDS: ACETAMINOPHEN 325 MG TABLET 650 MG PO (09:22)
[2025-07-02 09:34] LABS: Hematocrit* 41.0 % (33.0-51.0); Hemoglobin* 13.2 gm/dL (12.0-16.0); Immature Granulocytes Pct Auto 0.1 %; Lymphocytes Absolute Auto 8.80 K/uL (0.90-2.90); Mean Corpuscular HGB Conc 32 gm/dL (32-36); Mean Corpuscular Hemoglobin 29 pg (26-34); Mean Corpuscular Volume 89 fL (80-100); RDW Coefficient of Variation % 13.9 % (11.5-15.5); Red Blood Count* 4.59 m/uL (4.00-5.20); White Blood Count* 14.33 K/uL (4.50-11.00)
[2025-07-02 09:37] LABS: Immature Granulocytes Abs Auto 0.00 K/uL (0.00-0.30); Slide Review Reflex No
[2025-07-02 09:43] LABS: Albumin* 4.4 g/dL (3.3-5.0); Chloride* 103 mmol/L (96-114); Potassium* 4.1 mmol/L (3.6-5.1); Sodium* 139 mmol/L (135-149)
[2025-07-02 09:46] LABS: Alanine Aminotransferase* 16 U/L (4-35); Alkaline Phosphatase* 85 U/L (40-150); Anion Gap 7 mEq/L (7-15); Aspartate Amino Transferase* 28 U/L (12-35); Bilirubin Total* 1.4 mg/dL (0.1-1.5); Blood Urea Nitrogen* 17 mg/dL (7-30); Calcium* 10.0 mg/dL (8.4-10.6); Carbon Dioxide* 29 mmol/L (20-32); Creatinine* 0.8 mg/dL (0.5-1.5); Est. Creatinine Clearance* 49.12; Estimated Glomerular Filt Rate 81 ml/min; Glucose* 91 mg/dL (60-115); Total Protein* 7.5 g/dL (6.0-8.3)
--- NOTE | 2025-07-05 13:44 | ONC.NURNOTE ---
reviewed pt's labs from last week. Called pt and LM with all good, no changes message. Also detailed pt's next lab appt on 07/30/2025. Invited a call back with questions.
[2025-07-30 09:30] LABS: Hematocrit* 39.8 % (33.0-51.0); Hemoglobin* 12.9 gm/dL (12.0-16.0); Immature Granulocytes Abs Auto 0.02 K/uL (0.00-0.30); Immature Granulocytes Pct Auto 0.2 %; Mean Corpuscular HGB Conc 32 gm/dL (32-36); Mean Corpuscular Hemoglobin 28 pg (26-34); Mean Corpuscular Volume 87 fL (80-100); RDW Coefficient of Variation % 13.8 % (11.5-15.5); Red Blood Count* 4.57 m/uL (4.00-5.20); White Blood Count* 10.06 K/uL (4.50-11.00)
[2025-07-30 09:32] LABS: Lymphocytes Absolute Auto 5.80 K/uL (0.90-2.90)
[2025-07-30 09:33] LABS: Slide Review Reflex No
[2025-07-30 09:45] LABS: Albumin* 4.3 g/dL (3.3-5.0); Chloride* 104 mmol/L (96-114); Potassium* 4.1 mmol/L (3.6-5.1); Sodium* 137 mmol/L (135-149)
[2025-07-30 09:48] LABS: Alanine Aminotransferase* 15 U/L (4-35); Alkaline Phosphatase* 77 U/L (40-150); Anion Gap 7 mEq/L (7-15); Aspartate Amino Transferase* 25 U/L (12-35); Bilirubin Total* 1.6 mg/dL (0.1-1.5); Blood Urea Nitrogen* 19 mg/dL (7-30); Carbon Dioxide* 26 mmol/L (20-32); Creatinine* 0.8 mg/dL (0.5-1.5); Est. Creatinine Clearance* 49.12; Estimated Glomerular Filt Rate 81 ml/min; Total Protein* 6.7 g/dL (6.0-8.3)
[2025-07-30 09:49] LABS: Calcium* 9.9 mg/dL (8.4-10.6); Glucose* 94 mg/dL (60-115)
[2025-08-01 07:34] LABS: Immunoglobulin A 85 mg/dL (68-408); Immunoglobulin G 640 mg/dL (768-1632); Immunoglobulin M 59 mg/dL (35-263)
--- NOTE | 2025-08-06 14:24 | PC.NURSE ---
Patient called and cancelled 30 min provider appointment for Saturday 08/11 @ 12:30. Patient is feeling fine, just unable to make that work. Spoke with Neelima and nurses. will call back to reschedule on Thursday 08/09
[2025-08-27 08:15] LABS: Hematocrit* 40.7 % (33.0-51.0); Hemoglobin* 12.8 gm/dL (12.0-16.0); Immature Granulocytes Pct Auto 0.4 %; Mean Corpuscular HGB Conc 31 gm/dL (32-36); Mean Corpuscular Hemoglobin 28 pg (26-34); Mean Corpuscular Volume 88 fL (80-100); RDW Coefficient of Variation % 14.0 % (11.5-15.5); Red Blood Count* 4.65 m/uL (4.00-5.20); White Blood Count* 17.45 K/uL (4.50-11.00)
[2025-08-27 08:28] LABS: Immature Granulocytes Abs Auto 0.10 K/uL (0.00-0.30); Lymphocytes Absolute Auto 9.30 K/uL (0.90-2.90); Slide Review Reflex Yes
[2025-08-27 08:33] LABS: Albumin* 4.2 g/dL (3.3-5.0); Chloride* 103 mmol/L (96-114); Potassium* 4.1 mmol/L (3.6-5.1); Sodium* 138 mmol/L (135-149)
[2025-08-27 08:36] LABS: Alanine Aminotransferase* 14 U/L (4-35); Alkaline Phosphatase* 75 U/L (40-150); Anion Gap 9 mEq/L (7-15); Aspartate Amino Transferase* 24 U/L (12-35); Bilirubin Total* 1.2 mg/dL (0.1-1.5); Blood Urea Nitrogen* 23 mg/dL (7-30); Carbon Dioxide* 26 mmol/L (20-32); Creatinine* 0.7 mg/dL (0.5-1.5); Est. Creatinine Clearance* 48.45; Estimated Glomerular Filt Rate 94 ml/min; Total Protein* 7.1 g/dL (6.0-8.3)
[2025-08-27 08:37] LABS: Calcium* 9.9 mg/dL (8.4-10.6); Glucose* 92 mg/dL (60-115)
[2025-08-27 08:45] LABS: Slide Review Acceptable Review (Acceptable)
--- NOTE | 2025-09-16 09:52 | ONC.NURNOTE ---
[facility] application mailed to patient to complete and email in or [facility] to [facility] to email [facility].
--- NOTE | 2025-09-24 15:24 | ONC.NURNOTE ---
[facility] maximo application faxed to [phone]
== END 2025-09-27 23:59 | disposition home or self-care (01) ==
LOC: CCIC 09:00
PROVIDERS: PCP Family Medicine; Referring Provider Family Medicine; Visit Provider Internal Medicine Hematology & Oncology
DX: C83.00 Small cell B-cell lymphoma, unspecified site (principal); D80.1 Nonfamilial hypogammaglobulinemia; L12.0 Bullous pemphigoid; E11.9 Type 2 diabetes mellitus without complications; Z95.1 Presence of aortocoronary bypass graft; Z86.79 Personal history of other diseases of the circulatory system
CPT/HCPCS: 36415; 80053; 82784; 83615; 85025; 96365; 96366; 96375; 99214; 99215; G0463; A9270; J1459; J2919